=== PATIENT | female | born 1960 | race Caucasian/White ===

== ENCOUNTER 2017-06-21 01:49 | Inpatient (IN) | payer OTHER ==
[2017-06-21] MEDS ORDERED: ALBUTEROL SO4 2.5/IPRATROPIUM 0.5 INH SOL 3 ML VIAL.NEB. NEB ONE ×3 (02:21→03:45)
--- NOTE | 2017-06-21 02:34 | PDOC ---
History of Present Illness <Crystal Chapa - Last Filed: 06/21/17 05:46> - General History Source: Patient Exam Limitations: No Limitations - History of Present Illness Initial Comments: 06/21/17 02:33 Patient is a 56F with history of COPD and emphysema (h/o ICU admission and intubation for acute on chronic respiratory failure in September 2015) here today complaining of a fall. Her family states that she was using her walker when she fell backwards into a seated position. She is also complaining of increased shortness of breath. She denies loss of consciousness, chest pain. The patient believes that she tripped over the cat, but the family did not witness her tripping over the cat. The patient had an unwitnessed fall two days prior in which she hurt her right ankle and hit her head. She denies loss of consciousness and vomiting. She denies any prodromal symptoms, saying she simply tripped. She went to an urgent care and bilingual elementary school teacher, both of whom said she was fine. <Heladio Boss - Last Filed: 06/21/17 06:28> - General Stated Complaint: FALL Time Seen by Provider: 06/21/17 02:02 Past History <Crystal Chapa - Last Filed: 06/21/17 05:46> - Past Medical History COPD: Yes HTN: Yes Thyroid Disease: Yes - Suicide/Smoking/Psychosocial Hx Smoking History: Former smoker Have you smoked in the past 12 months: No If you are a former smoker, when did you quit?: YEARS Hx Alcohol Use: No Drug/Substance Use Hx: No Substance Use Type: None <Heladio Boss - Last Filed: 06/21/17 06:28> - Past Medical History Allergies/Adverse Reactions: Allergies Allergy/AdvReac Type Severity Reaction Status Date / Time Penicillins Allergy Severe Difficulty Verified 06/21/17 03:50 Breathing Home Medications: Ambulatory Orders Albuterol 0.083% Nebulizer Colette [Ventolin 0.083%] 1 neb NEB Q4H 06/02/14 Furosemide [Lasix -] 40 mg PO DAILY 06/02/14 Levothyroxine [Synthroid -] 100 mcg PO DAILY 06/02/14 Albuterol Sulfate Inhaler - [Ventolin Hfa Inhaler -] 2 inh PO Q6H PRN 10/13/15 Aspirin [ASA -] 81 mg PO DAILY 10/13/15 Fenofibrate [Lofibra] 160 mg PO DAILY 10/13/15 Montelukast Na [Singulair -] 10 mg PO HS 10/13/15 Potassium Chloride [Klor-Con M10] 10 meq PO DAILY 10/13/15 Prednisone 5 mg PO DAILY 10/13/15 Roflumilast [Daliresp] 500 mcg PO DAILY 10/13/15 Review of Systems - Review of Systems Comments:: 06/21/17 02:50 GENERAL/CONSTITUTIONAL: No fever or chills. HEAD, EYES, EARS, NOSE AND THROAT: No change in vision. No sore throat. CARDIOVASCULAR: No chest pain. Positive for increased shortness of breath. RESPIRATORY: Positive for cough and wheezing. Negative for hemoptysis. GASTROINTESTINAL: No nausea, vomiting, diarrhea or constipation. GENITOURINARY: No dysuria, frequency, or change in urination. MUSCULOSKELETAL: No joint or muscle swelling or pain. SKIN: No rash NEUROLOGIC: Positive for headache and confusion. Negative for vertigo, loss of consciousness, or change in strength/sensation. ENDOCRINE: No increased thirst. No abnormal weight change ALLERGIC/IMMUNOLOGIC: No hives or skin allergy. <Heladio Boss - Last Filed: 06/21/17 06:28> *Physical Exam - Vital Signs Last Vital Signs Temp Pulse Resp BP Pulse Ox 98.0 F 89 20 159/76 92 L 06/21/17 02:39 06/21/17 02:39 06/21/17 02:39 06/21/17 02:39 06/21/17 04:05 <Crystal Chapa - Last Filed: 06/21/17 05:46> - Physical Exam Comments: 06/21/17 02:55 GENERAL: Awake, alert, and fully oriented, struggles finding words, sleepy HEAD: No signs of trauma, normocephalic, atraumatic R FOOT: Large amounts of ecchymosis over entire foot. EYES: PERRLA, EOMI, sclera anicteric, conjunctiva clear ENT: Auricles normal inspection, hearing grossly normal, nares patent, oropharynx clear without exudates. Moist mucosa LUNGS: Accessory muscle use, short sentences, diffuse wheezes, poor air movement HEART: Regular rate and rhythm, normal S1 and S2, no murmurs, rubs or gallops, peripheral pulses normal and equal bilaterally. ABDOMEN: Soft, nontender, normoactive bowel sounds. No guarding, no rebound. No masses EXTREMITIES: Normal inspection, Normal range of motion, no edema. No clubbing or cyanosis. NEUROLOGICAL: Cranial nerves II through XII grossly intact. Normal speech, no focal sensorimotor deficits SKIN: Warm, Dry, normal turgor, no rashes or lesions noted. <Heladio Boss - Last Filed: 06/21/17 06:28> ED Treatment Course - LABORATORY CBC & Chemistry Diagram: 06/21/17 03:20 06/21/17 03:20 - ADDITIONAL ORDERS Additional order review: Laboratory Results 06/21/17 06/21/17 06/21/17 04:30 03:20 03:20 Anticoagulation Therapy Y Puncture Site Left brachial ABG pH 7.21 L* D ABG pCO2 at Pt Temp 116.0 H* D ABG pO2 at Pt Temp 124.0 H D ABG HCO3 44.9 H* ABG O2 Sat (Measured) 98.8 ABG O2 Content 14.2 L ABG Base Excess 13.7 H Everton Test Positive VBG pH 7.16 L* D POC VBG pCO2 134.0 H* D POC VBG pO2 39.4 D Mixed VBG HCO3 46.3 H* Carboxyhemoglobin 1.7 Methemoglobin 0.8 O2 Delivery Device Bipap Oxygen Flow Rate 60% Vent Mode Y Vent Rate 16 Mechanical Rate Y Pressure Support Vent 14/7 Sodium 138 Potassium 4.5 Chloride 90 L Carbon Dioxide 46 H Anion Gap 2 L BUN 15 Creatinine 0.5 L Creat Clearance w eGFR > 60 Random Glucose 149 H D Calcium 8.5 Magnesium 2.0 Total Bilirubin 0.3 AST 20 D ALT 27 Alkaline Phosphatase 71 D Creatine Kinase 87 Troponin I < 0.02 Total Protein 6.6 Albumin 3.3 L 06/21/17 03:20 RBC 3.67 MCV 101.1 H MCHC 30.8 L RDW 13.9 MPV 8.0 Neutrophils % No Result Required. Lymphocytes % No Result Required. - Medications Given in the ED: ED Medications Discontinued Medications Generic Name Dose Route Start Last Admin Trade Name Freq PRN Reason Stop Dose Admin Albuterol/Ipratropium 1 amp 06/21/17 02:21 06/21/17 02:52 Duoneb - NEB 06/21/17 02:22 1 amp ONCE ONE Administration Albuterol/Ipratropium 1 amp 06/21/17 03:45 06/21/17 04:18 Duoneb - NEB 06/21/17 03:46 1 amp ONCE ONE Administration Levofloxacin 750 mg in 150 mls @ 100 mls/hr 06/21/17 03:44 06/21/17 04:30 Levaquin 750 Mg Premixed Ivpb - IVPB 06/21/17 05:13 100 mls/hr ONCE ONE Administration Methylprednisolone Sodium Succinate 125 mg 06/21/17 03:44 06/21/17 04:30 Solu-Medrol - IVPB 06/21/17 03:45 125 mg ONCE ONE Administration <Crystal Chapa - Last Filed: 06/21/17 05:46> - LABORATORY CBC & Chemistry Diagram: 06/21/17 03:20 06/21/17 03:20 - RADIOLOGY Radiology Studies Ordered: Category Date Time Status HEAD CT WITHOUT CONTRAST [CT] Stat CT Scan 06/21/17 02:21 Ordered ANKLE & FOOT-RIGHT* [RAD] Stat Radiology 06/21/17 02:22 Ordered CHEST PA & LAT [RAD] Stat Radiology 06/21/17 02:32 Ordered <Heladio Boss - Last Filed: 06/21/17 06:28> Medical Decision Making - Medical Decision Making 06/21/17 03:00 Patient is a 56F with COPD/emphysema requiring prior ICU admission and intubation here today with multiple falls, possible syncope. Vital signs stable , patient's respiratory status is poor, but most likely at baseline. Will evaluate as a syncope, will treat with duonebs. Will evaluate with cbc, cmp, trop, mag, cxr, ankle xray, ekg, head ct. Will admit patient. 06/21/17 04:12 Laboratory Tests 06/21/17 06/21/17 03:20 03:20 WBC 9.0 Hgb 11.4 Hct 37.1 Plt Count 164 D VBG pH 7.16 L* D POC VBG pCO2 134.0 H* D POC VBG pO2 39.4 D Mixed VBG HCO3 46.3 H* CBC normal. VBG is alarming, shows pH of 7.16, pCO2 of 134. Started on bipap, initial settings 14/7, 35%. Goal spO2 88-92%, currently satting 90-91%. CMP pending. CXR shows diffuse air space disease, but no focal infiltrate suggestive of pneumonia. Will treat as copd exacerbation. Suspect cause of falls is due to decrease in respiratory status. Holding head CT until patient is more stable. Patient is cleared on su[place]ese rules, confusion and lethargy again likely to decrease in respiratory status. 06/21/17 05:38 Laboratory Tests 06/21/17 06/21/17 03:20 04:30 ABG pH 7.21 L* D ABG pCO2 at Pt Temp 116.0 H* D ABG pO2 at Pt Temp 124.0 H D ABG HCO3 44.9 H* Sodium 138 Potassium 4.5 Chloride 90 L Carbon Dioxide 46 H Troponin I < 0.02 ABG shows improvement. pH is improved. pCO2 improved. Patient's respiratory status has improved, is tolerating bipap. Will defer CT scan, as we cannot take the patient to CT scan on bipap. As respiratory status has improved, confusion and fatigue has improved. Will admit to ICU. 06/21/17 06:27 Denis - [phone] Daughter Nikia - [phone] <Heladio Boss - Last Filed: 06/21/17 06:28> *DC/Admit/Observation/Transfer - Discharge Dispostion Admit: Yes <Crystal Chapa - Last Filed: 06/21/17 05:46> <Heladio Boss - Last Filed: 06/21/17 06:28> Diagnosis at time of Disposition: COPD exacerbation, Pneumonia, Acute and chronic respiratory failure with hypoxia - Discharge Dispostion Condition at time of disposition: Guarded - Referrals Referrals: Laura Navarro MD [Primary Care Provider] -
[2017-06-21 02:46] VITALS: BMI 36.5
[2017-06-21 03:33] LABS: EOS # 0.1 # (0-4.5); LYMPH # 0.3 (8-40); MCH 31.2 pg (25.7-33.7); MCHC 30.8 g/dl (32.0-36.0); MEAN CELL VOLUME 101.1 fl (80-96); MONO # 0.7 # (3.8-10.2); NEUT # 7.9 # (42.8-82.8); PLATELET COUNT 164 K/MM3 (134-434); RDW 13.9 % (11.6-15.6)
[2017-06-21 03:37] LABS: VENOUS BLOOD GAS HCO3 46.3 meq/L (19-25); VENOUS PH 7.16 (7.32-7.42)
[2017-06-21] MEDS ORDERED: LEVOFLOXACIN 750 MG IVPB 750 MG/150 ML BAG IVPB ONE ×2 (03:44→03:59)
[2017-06-21] MEDS ORDERED: methylPREDNISolone NA SUCC 125 MG/2 ML VIAL IVPB ONE (03:44)
[2017-06-21 03:47] LABS: INR 0.88 (0.82-1.09)
[2017-06-21] MEDS ORDERED: methylPREDNISolone NA SUCC 125 MG/2 ML VIAL ONE (03:59)
--- NOTE | 2017-06-21 04:06 | PDOC ---
Attending Attestation - Resident Resident Name: Heladio Boss - ED Attending Attestation I have performed the following: I have examined & evaluated the patient, The case was reviewed & discussed with the resident, I agree w/resident's findings & plan - HPI HPI: 06/21/17 04:03 Pt comes with SOB and COPD exacerbation and she tripped at home 2 times, first due to tripping on "her tubes" of oxygen in her bedroom and the 2nd time due to SOB and generalized weakness. Pt comes with EMS. She was given duoneb. In the ER she received duoneb, prednisone and she will be given prophylactic abx for COPD exacerbation. She will be placed on BiPAP to optimize mariajose breathing. She is refusing to be intubated and she will be admitted to med surg for treatment. - Physicial Exam PE: 06/21/17 19:47 Agree with resident exam. Pt has decreased breath sounds throughout. Pt has no pitting edema of legs. She has a large hematoma at the left occiput where she hit her head 2 days back. Pt is vastly improved and alert and awake on BiPAP 40% O2. Her ph is improving. - Medical Decision Making 06/21/17 19:[address] Taylor's service, as he sees Dr. Laura Navarro's patients. 06/21/17 19:49 I spoke to the ICU NAVAL SCIENCE TEACHER who is aware of the admission and accepts the patient.
[2017-06-21 04:16] LABS: ALBUMIN 3.3 g/dl (3.4-5.0); BILIRUBIN,TOTAL 0.3 mg/dL (0.2-1.0); CALCIUM 8.5 mg/dL (8.5-10.1); CREATININE 0.5 mg/dL (0.55-1.02); GLUCOSE,RANDOM 149 mg/dL (74-106); SGOT/AST 20 U/L (15-37); SGPT/ALT 27 U/L (12-78); TOT PROT 6.6 g/dl (6.4-8.2)
[2017-06-21 04:19] LABS: ALK PHOS 71 U/L (45-117); CPK 87 IU/L (26-192); TROPONIN I < 0.02 ng/ml (0.00-0.05)
[2017-06-21 04:48] LABS: ARTERIAL BLD GAS O2 SATURATION 98.8 % (90-98.9); ARTERIAL BLOOD GAS BASE EXCESS 13.7 meq/l (-2-2)
[2017-06-21 04:49] LABS: ALLENS TEST POSITIVE; ART PUNCT SITE LEFT BRACHIAL; LPM/O2% 60%; METHEMOGLOBIN 0.8 % (0.4-1.5); TYPE OF O2 BIPAP; VENT RATE 16; VT/PRESS 14/7
[2017-06-21 04:50] LABS: ARTERIAL BLOOD GAS pH 7.21 (7.35-7.45)
[2017-06-21 04:51] LABS: ARTERIAL BLOOD GAS HCO3 44.9 meq/L (22-26)
[2017-06-21 05:27] LABS: ANION GAP 2 (8-16); CO2 46 mmol/L (21-32)
--- NOTE | 2017-06-21 07:11 | PDOC ---
*Physical Exam - Vital Signs Last Vital Signs Temp Pulse Resp BP Pulse Ox 98.0 F 69 18 125/74 97 06/21/17 02:39 06/21/17 06:40 06/21/17 06:40 06/21/17 06:40 06/21/17 06:40 ED Treatment Course - LABORATORY CBC & Chemistry Diagram: 06/21/17 03:20 06/21/17 03:20 - ADDITIONAL ORDERS Additional order review: Laboratory Results 06/21/17 06/21/17 06/21/17 04:30 03:20 03:20 PT with INR INR Anticoagulation Therapy Y Puncture Site Left brachial ABG pH 7.21 L* D ABG pCO2 at Pt Temp 116.0 H* D ABG pO2 at Pt Temp 124.0 H D ABG HCO3 44.9 H* ABG O2 Sat (Measured) 98.8 ABG O2 Content 14.2 L ABG Base Excess 13.7 H Everton Test Positive VBG pH 7.16 L* D POC VBG pCO2 134.0 H* D POC VBG pO2 39.4 D Mixed VBG HCO3 46.3 H* Carboxyhemoglobin 1.7 Methemoglobin 0.8 O2 Delivery Device Bipap Oxygen Flow Rate 60% Vent Mode Y Vent Rate 16 Mechanical Rate Y Pressure Support Vent 14/7 Sodium 138 Potassium 4.5 Chloride 90 L Carbon Dioxide 46 H Anion Gap 2 L BUN 15 Creatinine 0.5 L Creat Clearance w eGFR > 60 Random Glucose 149 H D Calcium 8.5 Magnesium 2.0 Total Bilirubin 0.3 AST 20 D ALT 27 Alkaline Phosphatase 71 D Creatine Kinase 87 Troponin I < 0.02 Total Protein 6.6 Albumin 3.3 L 06/21/17 03:20 PT with INR 10.00 INR 0.88 Anticoagulation Therapy Puncture Site ABG pH ABG pCO2 at Pt Temp ABG pO2 at Pt Temp ABG HCO3 ABG O2 Sat (Measured) ABG O2 Content ABG Base Excess Ever[place] Test VBG pH POC VBG pCO2 POC VBG pO2 Mixed VBG HCO3 Carboxyhemoglobin Methemoglobin O2 Delivery Device Oxygen Flow Rate Vent Mode Vent Rate Mechanical Rate Pressure Support Vent Sodium Potassium Chloride Carbon Dioxide Anion Gap BUN Creatinine Creat Clearance w eGFR Random Glucose Calcium Magnesium Total Bilirubin AST ALT Alkaline Phosphatase Creatine Kinase Troponin I Total Protein Albumin 06/21/17 03:20 RBC 3.67 MCV 101.1 H MCHC 30.8 L RDW 13.9 MPV 8.0 Neutrophils % No Result Required. Lymphocytes % No Result Required. - Medications Given in the ED: ED Medications Discontinued Medications Generic Name Dose Route Start Last Admin Trade Name Reynaldo PRN Reason Stop Dose Admin Albuterol/Ipratropium 1 amp 06/21/17 02:21 06/21/17 02:52 Duoneb - NEB 06/21/17 02:22 1 amp ONCE ONE Administration Albuterol/Ipratropium 1 amp 06/21/17 03:45 06/21/17 04:18 Duoneb - NEB 06/21/17 03:46 1 amp ONCE ONE Administration Levofloxacin 750 mg in 150 mls @ 100 mls/hr 06/21/17 03:44 06/21/17 04:30 Levaquin 750 Mg Premixed Ivpb - IVPB 06/21/17 05:13 100 mls/hr ONCE ONE Administration Methylprednisolone Sodium Succinate 125 mg 06/21/17 03:44 06/21/17 04:30 Solu-Medrol - IVPB 06/21/17 03:45 125 mg ONCE ONE Administration Medical Decision Making - Medical Decision Making 06/21/17 07:09 CC: twisted ankle after fall. PMH: COPD, emphysema, HTN On bipap, much improvement. Pending: monitoring airway. Goal Sat 88-92%. Possible repeat ABG/VBG. No ICU beds available. Watch for XR read. *DC/Admit/Observation/Transfer Diagnosis at time of Disposition: COPD exacerbation, Pneumonia, Acute and chronic respiratory failure with hypoxia - Discharge Dispostion Condition at time of disposition: Guarded - Referrals - Patient Instructions - Post Discharge Activity
[2017-06-21 07:36] LABS: URINE APPEARANCE CLEAR; URINE BILIRUBIN NEGATIVE (NEGATIVE); URINE BLOOD NEGATIVE (NEGATIVE); URINE COLOR YELLOW; URINE GLUCOSE (UA) NEGATIVE (NEGATIVE); URINE KETONE NEGATIVE (NEGATIVE); URINE LEUK ESTERASE NEGATIVE (NEGATIVE); URINE NITRITE NEGATIVE (NEGATIVE); URINE UROBILINOGEN NEGATIVE mg/dL (0.2-1.0)
[2017-06-21 07:48] LABS: URINE PROTEIN 1+ (NEGATIVE)
[2017-06-21 07:49] LABS: URINE MUCUS RARE; URINE RBC 2 /hpf (0-3); URINE WBC <1 /hpf (3-5)
[2017-06-21] MEDS ORDERED: ALBUTEROL SO4 18 GM HFA INHALER IH PRN (09:38)
--- NOTE | 2017-06-21 09:43 | HP ---
Admitting History and Physical - Primary Care Physician PCP: Agustina Taylor S - Admission Chief Complaint: SOB cough s/p fall History of Present Illness: Patient is a 56F with history of COPD and emphysema (h/o ICU admission and intubation for acute on chronic respiratory failure in September 2015) here today complaining of a fall. Her family states that she was using her walker when she fell backwards into a seated position. She is also complaining of increased shortness of breath. She denies loss of consciousness, chest pain. The patient believes that she tripped over the cat, but the family did not witness her tripping over the cat. The patient had an unwitnessed fall two days prior in which she hurt her right ankle and hit her head when she fell after tripping over the O2 tubes. . She denies loss of consciousness and vomiting. She denies any prodromal symptoms, saying she simply tripped. She went to an urgent care and ex assistant/program director, both of whom said she was fine. She also saw her PCP dr Mariana Navarro outpt. She denies having any pain in her foot or her head. History Source: Patient, Medical Record Limitations to Obtaining History: No Limitations - Past Medical History Cardiovascular: Yes: CHF, HTN Pulmonary: Yes: COPD, O2 Dependent ...LMP: 06/03/14 Infectious Disease: Yes: Other (pneumonia) Musculoskeletal: Yes: Chronic low back pain Endocrine: Yes: Hypothyroidism - Smoking History Smoking history: Former smoker Have you smoked in the past 12 months: No If you are a former smoker, when did you quit?: YEARS - Alcohol/Substance Use Hx Alcohol Use: No History of Substance Use: reports: None - Social History Usual Living Arrangement: Yes: With Spouse ADL: Family Assistance History of Recent Travel: No Home Medications - Allergies Allergies/Adverse Reactions: Allergies Allergy/AdvReac Type Severity Reaction Status Date / Time Penicillins Allergy Severe Difficulty Verified 06/21/17 03:50 Breathing - Home Medications Home Medications: Ambulatory Orders Albuterol 0.083% Nebulizer Colette [Ventolin 0.083%] 1 neb NEB Q4H 06/02/14 Furosemide [Lasix -] 40 mg PO DAILY 06/02/14 Levothyroxine [Synthroid -] 100 mcg PO DAILY 06/02/14 Albuterol Sulfate Inhaler - [Ventolin Hfa Inhaler -] 2 inh PO Q6H PRN 10/13/15 Aspirin [ASA -] 81 mg PO DAILY 10/13/15 Fenofibrate [Lofibra] 160 mg PO DAILY 10/13/15 Montelukast Na [Singulair -] 10 mg PO HS 10/13/15 Potassium Chloride [Klor-Con M10] 10 meq PO DAILY 10/13/15 Prednisone 5 mg PO DAILY 10/13/15 Roflumilast [Daliresp] 500 mcg PO DAILY 10/13/15 Family Disease History - Family Disease History Family History: Unremarkable Review of Systems - Review of Systems Constitutional: denies: Chills, Fever Eyes: denies: Blind Spots, Blurred Vision, Double Vision HENT: denies: Difficult Swallowing, Epistaxis Neck: denies: Stiffness, Tenderness Cardiovascular: reports: Shortness of Breath. denies: Chest Pain Respiratory: reports: Cough, Orthopnea, Snoring, SOB, SOB on Exertion, Wheezing Gastrointestinal: denies: Abdominal Pain, Bloating, Constipation, Diarrhea, Nausea, Vomiting Genitourinary: denies: Dysuria, Flank Pain Musculoskeletal: denies: Back Pain, Extremity Pain Neurological: denies: Change in LOC, Confusion, Seizure, Syncope Hematology/Lymphatic: denies: Easily Bruised, Excessive Bleeding Psychiatric: denies: Altered Sleep Pattern, Anxiety, Depression Physical Examination Vital Signs: Vital Signs Temperature 98.0 F 06/21/17 02:39 Pulse Rate 84 06/21/17 09:41 Respiratory Rate 28 H 06/21/17 09:41 Blood Pressure 155/82 06/21/17 09:41 O2 Sat by Pulse Oximetry (%) 30 L 06/21/17 09:41 Constitutional: Yes: Mild Distress Eyes: Yes: Conjunctiva Clear HENT: Yes: Atraumatic Neck: Yes: Supple Cardiovascular: Yes: Regular Rate and Rhythm Respiratory: Yes: On BiPap, Rales, Tachypnea, Wheezes Renal/: No: CVA Tenderness - Left, CVA Tenderness - Right, Hematuria Musculoskeletal: No: Joint Stiffness, Joint Swelling Extremities: Yes: Other (R foot echymoses bruises no pain). No: Calf Tenderness , Cold, Cool, Cyanosis Edema: Yes (pretibial bilateral) Integumentary: No: Pressure Ulcer, Rash, Venous Stasis Changes Neurological: Yes: WNL, Alert, Oriented ...Motor Strength: WNL Psychiatric: Yes: WNL, Alert, Oriented. No: Agitated, Suicidal Ideation Labs: CBC, BMP 06/21/17 03:20 06/21/17 03:20 Imaging - Results Chest X-ray: Report Reviewed Other: Report Reviewed Assessment/Plan Patient is a 56F with history of COPD and emphysema (h/o ICU admission and intubation for acute on chronic respiratory failure in September 2015) here today s/ p fall also respiratory failure bipap dependant hypercapnia hypoxemia respiratory acidosis O2, Iv steroids, nebs iv atb inhalers iv lasix admit to ICU head CT when stable and able to come off the bipap; neurology eval for head trauma sq heparin for DVT pfx if head CT negative R foot s/p trauma no pain, check xrays; podiatry f/u prognosis guarded d/w pt and staff d/w neurology dr Corcoran falls PFX d/w pt do not get OOB alone, call for help if needs OOB d/w pt's PCP Caputo\ T time 75 min
[2017-06-21] MEDS ORDERED: ALBUTEROL SO4 0.083% IH SOL 2.5 MG/3 ML VIAL.NEB. NEB ONE (09:47)
[2017-06-21] MEDS: ALBUTEROL SO4 0.083% IH SOL 2.5 MG/3 ML VIAL.NEB. NEB SCH ×3 (09:53→18:42)
[2017-06-21] MEDS ORDERED: PATIENT'S OWN MEDICATION (NON-FORMULARY) (Fenofibrate [Lofibra] 160 MG) PO SCH (10:00)
[2017-06-21] MEDS ORDERED: LEVOTHYROXINE NA 125 MCG TABLET (FP) PO SCH ×2 (10:00→10:12)
[2017-06-21] MEDS ORDERED: IPRATROPIUM BR 0.02% 0.5 MG/2.5 ML VIAL.NEB. NEB ONE (10:08)
[2017-06-21 11:02] LABS: ANISOCYTOSIS 0; HYPOCHROMIA 0; MACROCYTOSIS 0; METAMYELOCYTE 0 % (0-2); MICROCYTOSIS 0; MYELOCYTE 0 % (0-2); PLATELET ESTIMATE DECREASED; POIKILOCYTOSIS 0; POLYCHROMASIA 0; REACTIVE LYMPHOCYTES 2 % (0-80); STOMATOCYTE 3+
[2017-06-21] MEDS: ROFLUMILAST 500 MCG TABLET PO SCH (11:28)
[2017-06-21] MEDS: ASPIRIN 81 MG CHEWABLE TABLETS PO SCH (11:28)
[2017-06-21] MEDS: FUROSEMIDE 40 MG/4 ML INJECTABLE VIAL IVPUSH SCH (11:28)
[2017-06-21] MEDS: POTASSIUM CHLORIDE TABS 10 MEQ TABLET.ER (FP) PO SCH (11:28)
--- NOTE | 2017-06-21 12:49 | CON.PULM ---
Consult Consult Specialty:: PULMONARY Referred by:: Dr. Taylor Reason for Consultation:: respiratory failure - History of Present Illness Chief Complaint: s/p fall History of Present Illness: 56yo female with h/o COPD, hypothyroidism, chronic hypoxic and hypercapneic respiratory failure who was admitted after tripping over her oxygen tubing. Landed on her buttocks but also did hit her head. Noted to be slightly somnolent in the ER, ABG done showing severe respiratory acidosis. She denies any shortness of breath, cough or wheezing. No fevers, chills or sweats. No sick contacts. Reports compliance with her Spiriva and Dulera. - History Source History Provided By: Patient, Medical Record Limitations to Obtaining History: Clinical Condition - Past Medical History Cardio/Vascular: Yes: CHF, HTN Pulmonary: Yes: COPD, O2 Dependent ...LMP: 06/03/14 Infectious Disease: Yes: Other (pneumonia) Musculoskeletal: Yes: Chronic low back pain Endocrine: Yes: Hypothyroidism - Alcohol/Substance Use Hx Alcohol Use: No - Smoking History Smoking history: Former smoker Have you smoked in the past 12 months: No If you are a former smoker, when did you quit?: YEARS - Social History ADL: Family Assistance History of Recent Travel: No Home Medications - Allergies Allergies/Adverse Reactions: Allergies Allergy/AdvReac Type Severity Reaction Status Date / Time Penicillins Allergy Severe Difficulty Verified 06/21/17 03:50 Breathing - Home Medications Home Medications: Ambulatory Orders Albuterol 0.083% Nebulizer Colette [Ventolin 0.083%] 1 neb NEB Q4H 06/02/14 Furosemide [Lasix -] 40 mg PO DAILY 06/02/14 Levothyroxine [Synthroid -] 100 mcg PO DAILY 06/02/14 Albuterol Sulfate Inhaler - [Ventolin Hfa Inhaler -] 2 inh PO Q6H PRN 10/13/15 Aspirin [ASA -] 81 mg PO DAILY 10/13/15 Fenofibrate [Lofibra] 160 mg PO DAILY 10/13/15 Montelukast Na [Singulair -] 10 mg PO HS 10/13/15 Potassium Chloride [Klor-Con M10] 10 meq PO DAILY 10/13/15 Prednisone 5 mg PO DAILY 10/13/15 Roflumilast [Daliresp] 500 mcg PO DAILY 10/13/15 Review of Systems - Review of Systems Constitutional: denies: Chills, Fever, Weakness Eyes: denies: Recent Change in Vision HENT: denies: Nasal Congestion, Throat Pain Neck: denies: Stiffness, Tenderness Cardiovascular: denies: Chest Pain, Palpitations, Shortness of Breath Respiratory: denies: Cough, Hemoptysis, Wheezing Gastrointestinal: denies: Abdominal Pain, Nausea, Vomiting Genitourinary: denies: Dysuria, Hematuria Neurological: denies: Dizziness, Headache Physical Exam Vital Sings: Vital Signs Temperature 98.0 F 06/21/17 02:39 Pulse Rate 82 06/21/17 10:30 Respiratory Rate 26 H 06/21/17 10:30 Blood Pressure 134/76 06/21/17 10:30 O2 Sat by Pulse Oximetry (%) 97 06/21/17 10:30 Constitutional: Yes: Other (mildly tachypneic with speaking) Eyes: Yes: Conjunctiva Clear, EOM Intact HENT: Yes: Atraumatic, Normocephalic Neck: Yes: Supple, Trachea Midline Cardiovascular: Yes: Regular Rate and Rhythm Respiratory: Yes: Diminished (distant breath sounds). No: Wheezes ...Clubbing: No Gastrointestinal: Yes: Normal Bowel Sounds, Soft. No: Tenderness Edema: Yes Neurological: Yes: Alert, Oriented Labs: CBC, BMP 06/21/17 03:20 06/21/17 03:20 ABG Results ABG pH 7.21 (7.35-7.45) L* D 06/21/17 04:30 ABG pCO2 at Pt Temp 116.0 mmHg (35-45) H* D 06/21/17 04:30 ABG pO2 at Pt Temp 124.0 mmHg (80-100) H D 06/21/17 04:30 ABG HCO3 44.9 meq/L (22-26) H* 06/21/17 04:30 ABG O2 Sat (Measured) 98.8 % (90-98.9) 06/21/17 04:30 ABG O2 Content 14.2 % vol (15-22) L 06/21/17 04:30 ABG Base Excess 13.7 meq/l (-2-2) H 06/21/17 04:30 Imaging - Results Chest X-ray: Report Reviewed, Image Reviewed (pulmonary vascular congestion) Problem List - Problems (1) Acute on chronic respiratory failure with hypoxia and hypercapnia Code(s): J96.21 - ACUTE AND CHRONIC RESPIRATORY FAILURE WITH HYPOXIA; J96.22 - ACUTE AND CHRONIC RESPIRATORY FAILURE WITH HYPERCAPNIA (2) COPD exacerbation Code(s): J44.1 - CHRONIC OBSTRUCTIVE PULMONARY DISEASE W (ACUTE) EXACERBATION (3) Fall Code(s): W19.XXXA - UNSPECIFIED FALL, INITIAL ENCOUNTER (4) Acute diastolic (congestive) heart failure Code(s): I50.31 - ACUTE DIASTOLIC (CONGESTIVE) HEART FAILURE Assessment/Plan s/p Fall Acute on Chronic Hypoxic and Hypercapneic Respiratory Failure Acute Diastolic Heart Failure HTN Hypothyroidism - agree with medrol - inhaled bronchodilators standing and PRN - O2 to keep SpO2 88-92% to avoid worsening V/Q mismatch - BiPAP at night and PRN during day - IV lasix - monitor urine output, creatinine - may benefit from home BiPAP or trilogy device due to chronic hypercapneic respiratory failure - DVT prophylaxis - placed on nasal cannula, check ABG - appears to be clinically improving, does not require ICU monitoring at this time - will follow with you, please call if any changes in clinical condition Thank you for this consult Roman Mckinley MD
[2017-06-21 13:49] LABS: ARTERIAL BLD GAS O2 SATURATION 92.9 % (90-98.9); ARTERIAL BLOOD GAS BASE EXCESS 18.6 meq/l (-2-2); ARTERIAL BLOOD GAS HCO3 47.5 meq/L (22-26); ARTERIAL BLOOD GAS pH 7.43 (7.35-7.45)
[2017-06-21 13:53] LABS: ART PUNCT SITE RIGHT RADIAL
[2017-06-21 13:54] LABS: LPM/O2% 3L; PT. ON O2? YES; TYPE OF O2 NASAL
[2017-06-21 13:57] LABS: URINE LEUK ESTERASE Negative (NEGATIVE)
[2017-06-21] MEDS ORDERED: methylPREDNISolone NA SUCC 40 MG/1 ML VIAL ONE ×2 (15:15→21:19)
[2017-06-21] MEDS: methylPREDNISolone NA SUCC 40 MG/1 ML VIAL IVPUSH SCH ×2 (15:16→21:23)
--- NOTE | 2017-06-21 16:38 | CON.NEURO ---
Consult - Past Medical History Cardio/Vascular: Yes: CHF, HTN Pulmonary: Yes: COPD, O2 Dependent ...LMP: 06/03/14 Infectious Disease: Yes: Other (pneumonia) Musculoskeletal: Yes: Chronic low back pain Endocrine: Yes: Hypothyroidism - Alcohol/Substance Use Hx Alcohol Use: No - Smoking History Smoking history: Former smoker Have you smoked in the past 12 months: No If you are a former smoker, when did you quit?: YEARS - Social History ADL: Family Assistance History of Recent Travel: No Home Medications - Allergies Allergies/Adverse Reactions: Allergies Allergy/AdvReac Type Severity Reaction Status Date / Time Penicillins Allergy Severe Difficulty Verified 06/21/17 03:50 Breathing - Home Medications Home Medications: Ambulatory Orders Albuterol 0.083% Nebulizer Colette [Ventolin 0.083%] 1 neb NEB Q4H 06/02/14 Furosemide [Lasix -] 40 mg PO DAILY 06/02/14 Levothyroxine [Synthroid -] 100 mcg PO DAILY 06/02/14 Albuterol Sulfate Inhaler - [Ventolin Hfa Inhaler -] 2 inh PO Q6H PRN 10/13/15 Aspirin [ASA -] 81 mg PO DAILY 10/13/15 Fenofibrate [Lofibra] 160 mg PO DAILY 10/13/15 Montelukast Na [Singulair -] 10 mg PO HS 10/13/15 Potassium Chloride [Klor-Con M10] 10 meq PO DAILY 10/13/15 Prednisone 5 mg PO DAILY 10/13/15 Roflumilast [Daliresp] 500 mcg PO DAILY 10/13/15 Physical Exam-Neuro Vital Signs: Vital Signs Temperature 98.0 F 06/21/17 02:39 Pulse Rate 87 06/21/17 13:35 Respiratory Rate 22 06/21/17 13:35 Blood Pressure 122/82 06/21/17 13:35 O2 Sat by Pulse Oximetry (%) 95 06/21/17 13:35 Labs: CBC, BMP 06/21/17 03:20 06/21/17 03:20 INR, PTT INR 0.88 (0.82-1.09) 06/21/17 03:20 Assessment/Plan cc fall HPI 56 year old female history of COPD, emphysema, HTN, Hypothyroidism, She uses walker to walk. Patient fell three days ago , when she get tangled with her oxygen cord. She has another fall today when she fell backward. She denies any loss of consiousness. There is no seizure like activity, no tongue bite . She denies any tingling or numbness or frequent fall. She denies any weakness or one sided weakness. Past Medical History as above ROS,FH,SH reviewed in chart Allergies Allergies Allergy/AdvReac Type Severity Reaction Status Date / Time Penicillins Allergy Severe Difficulty Verified 06/21/17 03:50 Breathing Home Medications: Albuterol 0.083% Nebulizer Colette [Ventolin 0.083%] 1 neb NEB Q4H 06/02/14 Furosemide [Lasix -] 40 mg PO DAILY 06/02/14 Levothyroxine [Synthroid -] 100 mcg PO DAILY 06/02/14 Albuterol Sulfate Inhaler - [Ventolin Hfa Inhaler -] 2 inh PO Q6H PRN 10/13/15 Aspirin [ASA -] 81 mg PO DAILY 10/13/15 Fenofibrate [Lofibra] 160 mg PO DAILY 10/13/15 Montelukast Na [Singulair -] 10 mg PO HS 10/13/15 Potassium Chloride [Klor-Con M10] 10 meq PO DAILY 10/13/15 Prednisone 5 mg PO DAILY 10/13/15 Roflumilast [Daliresp] 500 mcg PO DAILY 10/13/15 Neurological Examination Alert Oriented x 3, speech is normal CN all intact, eomi, no face asymmetry Motor is 5/5 all extremity FTN HTS is normal, reflex are symmetrical Ct head not done Assessment- Episode of fall, no LOc, Neurological Examination is normal. There is bump on the head. Patient is quite concern about bleed inside the brain Plan-- would do ct head - PT if she stays in hospital - No evidence of seizures, no evidence of cord compression ,Vertigo or stroke Thank you so much Corey Alfaro MD
--- NOTE | 2017-06-21 17:13 | EKG ---
Test Reason : Blood Pressure : / mmHG Vent. Rate : 090 BPM Atrial Rate : 090 BPM P-R Int : 126 ms QRS Dur : 074 ms QT Int : 330 ms P-R-T Axes : 073 069 060 degrees QTc Int : 403 ms NORMAL SINUS RHYTHM LOW VOLTAGE QRS BORDERLINE ECG WHEN COMPARED WITH ECG OF 14-OCT-2015 12:12, NO SIGNIFICANT CHANGE WAS FOUND Confirmed by COLLEEN SCHNEIDER MD ([id number]) on 06/21/2017 5:13:40 PM Referred By: Confirmed By:COLLEEN SCHNEIDER MD
--- NOTE | 2017-06-21 19:44 | CON.CARD ---
Consult Consult Specialty:: Cardiology Referred by:: Agustina Taylor MD Reason for Consultation:: Respiratory failure - History of Present Illness Chief Complaint: Post fall, lethargy History of Present Illness: 56yo female with h/o COPD, hypothyroidism, chronic hypoxic and hypercapneic respiratory failure who was admitted after tripping over her oxygen tubing. Landed on her buttocks but also did hit her head, HCT. Noted to be slightly somnolent in the ER, ABG done showing severe respiratory acidosis. She denies any shortness of breath, cough, wheezing, palpitations, near or true syncope, orthopnea, PND, does note pretibial edema. Reports compliance with her Spiriva and Dulera. - History Source History Provided By: Patient Limitations to Obtaining History: No Limitations - Past Medical History Cardio/Vascular: Yes: CHF, HTN Pulmonary: Yes: COPD, O2 Dependent ...LMP: 06/03/14 Infectious Disease: Yes: Other (pneumonia) Musculoskeletal: Yes: Chronic low back pain Endocrine: Yes: Hypothyroidism - Alcohol/Substance Use Hx Alcohol Use: No - Smoking History Smoking history: Former smoker Have you smoked in the past 12 months: No If you are a former smoker, when did you quit?: YEARS - Social History ADL: Family Assistance History of Recent Travel: No Home Medications - Allergies Allergies/Adverse Reactions: Allergies Allergy/AdvReac Type Severity Reaction Status Date / Time Penicillins Allergy Severe Difficulty Verified 06/21/17 03:50 Breathing - Home Medications Home Medications: Ambulatory Orders Albuterol 0.083% Nebulizer Colette [Ventolin 0.083%] 1 neb NEB Q4H 06/02/14 Furosemide [Lasix -] 40 mg PO DAILY 06/02/14 Levothyroxine [Synthroid -] 100 mcg PO DAILY 06/02/14 Albuterol Sulfate Inhaler - [Ventolin Hfa Inhaler -] 2 inh PO Q6H PRN 10/13/15 Aspirin [ASA -] 81 mg PO DAILY 10/13/15 Fenofibrate [Lofibra] 160 mg PO DAILY 10/13/15 Montelukast Na [Singulair -] 10 mg PO HS 10/13/15 Potassium Chloride [Klor-Con M10] 10 meq PO DAILY 10/13/15 Prednisone 5 mg PO DAILY 10/13/15 Roflumilast [Daliresp] 500 mcg PO DAILY 10/13/15 Review of Systems - Review of Systems Constitutional: reports: Lethargy Vital Signs: Vital Signs Temperature 98.0 F 06/21/17 02:39 Pulse Rate 89 06/21/17 18:40 Respiratory Rate 26 H 06/21/17 18:40 Blood Pressure 125/77 06/21/17 18:40 O2 Sat by Pulse Oximetry (%) 92 L 06/21/17 18:40 Constitutional: Yes: No Distress, Calm Neck: Yes: Supple Respiratory: Yes: Regular, Diminished, On Nasal O2 Gastrointestinal: Yes: Normal Bowel Sounds, Soft, Abdomen, Obese Cardiovascular: Yes: Regular Rate and Rhythm JVD: No Carotid Bruit: No Heart Sounds: Yes: S1, S2 Edema: Yes Edema: LLE: 2+, RLE: 2+ - Other Data Labs, Other Data: CBC, BMP 06/21/17 03:20 06/21/17 03:20 INR, PTT INR 0.88 (0.82-1.09) 06/21/17 03:20 Troponin, BNP 06/21/17 03:20 Troponin I < 0.02 Troponin, BNP 06/21/17 03:20 Troponin I < 0.02 NSR @ [address]-T changes Ejection Fraction %: LVEF > or = 40 % Imaging - Results Chest X-ray: Report Reviewed (Congestion) Problem List - Problems (1) Hypothyroidism Code(s): E03.9 - HYPOTHYROIDISM, UNSPECIFIED Qualifiers: Hypothyroidism type: unspecified Qualified Code(s): E03.9 - Hypothyroidism , unspecified (2) Acute diastolic (congestive) heart failure Code(s): I50.31 - ACUTE DIASTOLIC (CONGESTIVE) HEART FAILURE (3) Acute on chronic respiratory failure with hypoxia and hypercapnia Code(s): J96.21 - ACUTE AND CHRONIC RESPIRATORY FAILURE WITH HYPOXIA; J96.22 - ACUTE AND CHRONIC RESPIRATORY FAILURE WITH HYPERCAPNIA (4) COPD exacerbation Code(s): J44.1 - CHRONIC OBSTRUCTIVE PULMONARY DISEASE W (ACUTE) EXACERBATION (5) Fall Code(s): W19.XXXA - UNSPECIFIED FALL, INITIAL ENCOUNTER Qualifiers: Encounter type: initial encounter Qualified Code(s): W19.XXXA - Unspecified fall, initial encounter Assessment/Plan Echocardiography revealed normal LV systolic function with mild MR 1. Acute on chronic hypoxic and hypercapneic respiratory failure related to acute exacerbation of 2. Chronic obstructive pulmonary disease and 3. Acute on chronic diastolic heart failure 4. HTN/HCVD 5. Mixed dyslipidemia 6. Hypothyroidism 7. s/p fall PLAN: 1. IV steroids, BD, empiric abx, Singulair, Daliresp, O2 to keep SpO2 88-92% to avoid worsening V/Q mismatch, BiPAP at night and PRN during day 2. IV diuresis with monitor diuretic response, renal function and electrolytes 3. As outlined recommend addition of LUCIO-I or ARBS 4. May benefit from home BiPAP or trilogy device due to chronic hypercapneic respiratory failure 5. DVT prophylaxis 6. Thank you for consultative opportunity
[2017-06-21] MEDS: MONTELUKAST NA 10 MG TABLET PO SCH (23:26)
[2017-06-22] MEDS: ALBUTEROL SO4 0.083% IH SOL 2.5 MG/3 ML VIAL.NEB. NEB SCH ×6 (01:05→23:19)
[2017-06-22] MEDS: methylPREDNISolone NA SUCC 40 MG/1 ML VIAL IVPUSH SCH ×4 (03:12→21:10)
[2017-06-22] MEDS: LEVOTHYROXINE NA 100 MCG TABLET (FP) PO SCH (06:31)
[2017-06-22] MEDS: LEVOFLOXACIN 500 MG IVPB 500 MG/100 ML BAG IVPB SCH (06:31)
[2017-06-22 07:46] LABS: BASO # 0.1 # (0.1-1); BASO % 0.9 % (0-2.0); LYMPH # 0.2 (8-40); MCH 30.6 pg (25.7-33.7); MCHC 31.5 g/dl (32.0-36.0); MEAN CELL VOLUME 97.3 fl (80-96); MEAN PLT VOLUME 8.8 fl (7.5-11.1); MONO # 0.2 # (3.8-10.2); NEUT # 7.6 # (42.8-82.8); NEUT % 93.5 % (42.8-82.8); PLATELET COUNT 172 K/MM3 (134-434); RDW 13.6 % (11.6-15.6); WHITE BLOOD COUNT 8.2 K/mm3 (4.0-10.0)
[2017-06-22 08:18] LABS: ALBUMIN 3.1 g/dl (3.4-5.0); BILIRUBIN,TOTAL 0.4 mg/dL (0.2-1.0); CALCIUM 8.3 mg/dL (8.5-10.1); CREATININE 0.7 mg/dL (0.55-1.02); GLUCOSE,RANDOM 141 mg/dL (74-106); SGOT/AST 15 U/L (15-37); SGPT/ALT 24 U/L (12-78); TOT PROT 6.1 g/dl (6.4-8.2)
[2017-06-22 08:26] LABS: ALK PHOS 63 U/L (45-117); CPK 67 IU/L (26-192); THYROID STIMULATING HORMONE 0.39 uIU/ml (0.358-3.74); TROPONIN I < 0.02 ng/ml (0.00-0.05)
--- NOTE | 2017-06-22 08:26 | PN ---
Progress Note, Physician Chief Complaint: in bed on 4w awake alert NAD VSS ON BIPAP PRN on O2 no CP less SOB less cough tests consults meds reviewed with pt - Current Medication List Current Medications: Active Medications Albuterol Sulfate (Ventolin 0.083% Nebulizer Soln -) 1 amp NEB Q4H [facility] Last Admin: 06/22/17 07:04 Dose: 1 amp Albuterol Sulfate (Ventolin Hfa Inhaler -) 2 puff IH Q6H PRN PRN Reason: SHORT OF BREATH/WHEEZING Last Admin: 06/21/17 09:52 Dose: 2 puff Aspirin (Asa -) 81 mg PO DAILY [facility] Last Admin: 06/21/17 11:28 Dose: 81 mg Furosemide (Lasix Injection -) 40 mg IVPUSH DAILY [facility] Last Admin: 06/21/17 11:28 Dose: 40 mg Heparin Sodium (Porcine) (Heparin -) 5,000 unit SQ BID [facility] Levofloxacin (Levaquin 500 Mg Premixed Ivpb -) 500 mg in 100 mls @ 100 mls/hr IVPB DAILY@0600 [facility] Last Admin: 06/22/17 06:31 Dose: 100 mls/hr Levothyroxine Sodium (Synthroid -) 100 mcg PO DAILY@0700 [facility] Last Admin: 06/22/17 06:31 Dose: 100 mcg Methylprednisolone Sodium Succinate (Solu-Medrol -) 40 mg IVPUSH Q6H-IV [facility] Last Admin: 06/22/17 03:12 Dose: 40 mg Montelukast Sodium (Singulair -) 10 mg PO HS [facility] Last Admin: 06/21/17 23:26 Dose: 10 mg Non-Formulary Medication (Fenofibrate [Lofibra]) 160 mg PO DAILY [facility] Last Admin: 06/21/17 11:35 Dose: Not Given Potassium Chloride (K-Dur -) 10 meq PO DAILY [facility] Last Admin: 06/21/17 11:28 Dose: 10 meq Roflumilast (Daliresp -) 500 mcg PO DAILY [facility] Last Admin: 06/21/17 11:28 Dose: 500 mcg - Objective Vital Signs: Vital Signs Temperature 97.4 F L 06/22/17 07:19 Pulse Rate 86 06/22/17 07:19 Respiratory Rate 20 06/22/17 07:19 Blood Pressure 144/85 06/22/17 07:19 O2 Sat by Pulse Oximetry (%) 92 L 06/21/17 23:00 Constitutional: Yes: No Distress, Calm Eyes: Yes: Conjunctiva Clear HENT: Yes: Atraumatic Neck: Yes: Supple Cardiovascular: Yes: Regular Rate and Rhythm Respiratory: Yes: Rales, Wheezes Gastrointestinal: Yes: Soft, Abdomen, Obese. No: Distention, Tenderness Musculoskeletal: No: Joint Stiffness, Joint Swelling Extremities: No: Cold, Cool, Cyanosis Edema: Yes (less) Integumentary: No: Rash, Venous Stasis Changes Neurological: Yes: WNL, Alert, Oriented. No: Confusion, Lethargy, Unsteady Gait ...Motor Strength: WNL Psychiatric: Yes: WNL, Alert, Oriented. No: Agitated, Suicidal Ideation Labs: CBC, BMP 06/22/17 05:45 INR, PTT INR 0.88 (0.82-1.09) 06/21/17 03:20 - ....Imaging Chest X-ray: Report Reviewed Other: Report Reviewed Assessment/Plan Patient is a 56F with history of COPD and emphysema (h/o ICU admission and intubation for acute on chronic respiratory failure in September 2015) here today s/ p fall also respiratory failure bipap dependant hypercapnia hypoxemia respiratory acidosis O2, Iv steroids, nebs iv atb inhalers iv lasix admitted to 4w head CT negative; neurology eval for head trauma sq heparin for DVT pfx if head CT negative R foot s/p trauma no pain, check xrays; podiatry f/u prognosis guarded d/w pt and staff d/w neurology dr Corcoran falls PFX d/w pt do not get OOB alone, call for help if needs OOB T time 45 min
[2017-06-22] MEDS ORDERED: HEPARIN NA (PORCINE) 5,000 UNITS/ML 1ML VIAL SQ SCH (10:00)
[2017-06-22] MEDS: FUROSEMIDE 40 MG/4 ML INJECTABLE VIAL IVPUSH SCH (10:01)
[2017-06-22] MEDS: ASPIRIN 81 MG CHEWABLE TABLETS PO SCH (10:02)
[2017-06-22] MEDS: POTASSIUM CHLORIDE TABS 10 MEQ TABLET.ER (FP) PO SCH (10:02)
[2017-06-22] MEDS: ROFLUMILAST 500 MCG TABLET PO SCH (10:03)
[2017-06-22 10:12] LABS: ANION GAP 0 (8-16); CO2 49 mmol/L (21-32)
--- NOTE | 2017-06-22 10:33 | PN ---
Progress Note, Physician History of Present Illness: pulmonary alert,feeling better,on nasal o2,tolerated bibap last night - Current Medication List Current Medications: Active Medications Albuterol Sulfate (Ventolin 0.083% Nebulizer Soln -) 1 amp NEB Q4H [facility] Last Admin: 06/22/17 07:04 Dose: 1 amp Albuterol Sulfate (Ventolin Hfa Inhaler -) 2 puff IH Q6H PRN PRN Reason: SHORT OF BREATH/WHEEZING Last Admin: 06/21/17 09:52 Dose: 2 puff Aspirin (Asa -) 81 mg PO DAILY [facility] Last Admin: 06/22/17 10:02 Dose: 81 mg Furosemide (Lasix Injection -) 40 mg IVPUSH DAILY [facility] Last Admin: 06/22/17 10:01 Dose: 40 mg Heparin Sodium (Porcine) (Heparin -) 5,000 unit SQ BID [facility] Last Admin: 06/22/17 10:01 Dose: 5,000 unit Levofloxacin (Levaquin 500 Mg Premixed Ivpb -) 500 mg in 100 mls @ 100 mls/hr IVPB DAILY@0600 [facility] Last Admin: 06/22/17 06:31 Dose: 100 mls/hr Levothyroxine Sodium (Synthroid -) 100 mcg PO DAILY@0700 [facility] Last Admin: 06/22/17 06:31 Dose: 100 mcg Methylprednisolone Sodium Succinate (Solu-Medrol -) 40 mg IVPUSH Q6H-IV [facility] Last Admin: 06/22/17 10:01 Dose: 40 mg Montelukast Sodium (Singulair -) 10 mg PO HS [facility] Last Admin: 06/21/17 23:26 Dose: 10 mg Non-Formulary Medication (Fenofibrate [Lofibra]) 160 mg PO DAILY [facility] Last Admin: 06/21/17 11:35 Dose: Not Given Potassium Chloride (K-Dur -) 10 meq PO DAILY [facility] Last Admin: 06/22/17 10:02 Dose: 10 meq Roflumilast (Daliresp -) 500 mcg PO DAILY [facility] Last Admin: 06/22/17 10:03 Dose: 500 mcg - Objective Vital Signs: Vital Signs Temperature 98.2 F 06/22/17 08:05 Pulse Rate 80 06/22/17 08:05 Respiratory Rate 22 06/22/17 08:05 Blood Pressure 120/84 06/22/17 08:05 O2 Sat by Pulse Oximetry (%) 92 L 06/21/17 23:00 Constitutional: Yes: Well Nourished, Calm Eyes: Yes: WNL HENT: Yes: WNL Neck: Yes: WNL Cardiovascular: Yes: Regular Rate and Rhythm, S1, S2 Respiratory: Yes: Wheezes (scattered steve wheezes) Gastrointestinal: Yes: Normal Bowel Sounds, Soft Extremities: Yes: WNL Edema: No Labs: CBC, BMP 06/22/17 05:45 06/22/17 05:45 INR, PTT INR 0.88 (0.82-1.09) 06/21/17 03:20 Assessment/Plan Problem List - Problems (1) Acute on chronic respiratory failure with hypoxia and hypercapnia Code(s): J96.21 - ACUTE AND CHRONIC RESPIRATORY FAILURE WITH HYPOXIA; J96.22 - ACUTE AND CHRONIC RESPIRATORY FAILURE WITH HYPERCAPNIA (2) COPD exacerbation Code(s): J44.1 - CHRONIC OBSTRUCTIVE PULMONARY DISEASE W (ACUTE) EXACERBATION (3) Fall Code(s): W19.XXXA - UNSPECIFIED FALL, INITIAL ENCOUNTER (4) Acute diastolic (congestive) heart failure Code(s): I50.31 - ACUTE DIASTOLIC (CONGESTIVE) HEART FAILURE Assessment/Plan s/p Fall Acute on Chronic Hypoxic and Hypercapneic Respiratory Failure improving Acute Diastolic Heart Failure HTN Hypothyroidism - medrol same dose - inhaled bronchodilators standing and PRN - O2 to keep SpO2 88-92% - BiPAP at night and PRN during day - IV lasix - monitor urine output, creatinine - may benefit from home BiPAP or trilogy device due to chronic hypercapneic respiratory failure - DVT prophylaxis - nasal cannula DR MEDEIROS
--- NOTE | 2017-06-22 10:45 | PN ---
Progress Note, Physician History of Present Illness: Sensorium at baseline, undergoing treatment for acute on chronic hypercapneic respiratory failure. - Current Medication List Current Medications: Active Medications Albuterol Sulfate (Ventolin 0.083% Nebulizer Soln -) 1 amp NEB Q4H [facility] Last Admin: 06/22/17 07:04 Dose: 1 amp Albuterol Sulfate (Ventolin Hfa Inhaler -) 2 puff IH Q6H PRN PRN Reason: SHORT OF BREATH/WHEEZING Last Admin: 06/21/17 09:52 Dose: 2 puff Aspirin (Asa -) 81 mg PO DAILY [facility] Last Admin: 06/22/17 10:02 Dose: 81 mg Furosemide (Lasix Injection -) 40 mg IVPUSH DAILY [facility] Last Admin: 06/22/17 10:01 Dose: 40 mg Heparin Sodium (Porcine) (Heparin -) 5,000 unit SQ BID [facility] Levofloxacin (Levaquin 500 Mg Premixed Ivpb -) 500 mg in 100 mls @ 100 mls/hr IVPB DAILY@0600 [facility] Last Admin: 06/22/17 06:31 Dose: 100 mls/hr Levothyroxine Sodium (Synthroid -) 100 mcg PO DAILY@0700 [facility] Last Admin: 06/22/17 06:31 Dose: 100 mcg Methylprednisolone Sodium Succinate (Solu-Medrol -) 40 mg IVPUSH Q6H-IV [facility] Last Admin: 06/22/17 10:01 Dose: 40 mg Montelukast Sodium (Singulair -) 10 mg PO HS [facility] Last Admin: 06/21/17 23:26 Dose: 10 mg Non-Formulary Medication (Fenofibrate [Lofibra]) 160 mg PO DAILY [facility] Last Admin: 06/21/17 11:35 Dose: Not Given Potassium Chloride (K-Dur -) 10 meq PO DAILY [facility] Last Admin: 06/22/17 10:02 Dose: 10 meq Roflumilast (Daliresp -) 500 mcg PO DAILY [facility] Last Admin: 06/22/17 10:03 Dose: 500 mcg - Objective Vital Signs: Vital Signs Temperature 98.2 F 06/22/17 08:05 Pulse Rate 80 06/22/17 08:05 Respiratory Rate 22 06/22/17 08:05 Blood Pressure 120/84 06/22/17 08:05 O2 Sat by Pulse Oximetry (%) 92 L 06/21/17 23:00 Constitutional: Yes: No Distress, Calm Neck: Yes: Supple Cardiovascular: Yes: Regular Rate and Rhythm Respiratory: Yes: Regular, Diminished, On Nasal O2 Gastrointestinal: Yes: Normal Bowel Sounds, Soft, Abdomen, Obese Edema: Yes Edema: LLE: 1+, RLE: 1+ Labs: CBC, BMP 06/22/17 05:45 06/22/17 05:45 INR, PTT INR 0.88 (0.82-1.09) 06/21/17 03:20 - ....Imaging EKG: Report Reviewed (Tele: SR occ PVC) Problem List - Problems (1) Hypothyroidism Code(s): E03.9 - HYPOTHYROIDISM, UNSPECIFIED Qualifiers: Hypothyroidism type: unspecified Qualified Code(s): E03.9 - Hypothyroidism , unspecified (2) Acute diastolic (congestive) heart failure Code(s): I50.31 - ACUTE DIASTOLIC (CONGESTIVE) HEART FAILURE (3) Acute on chronic respiratory failure with hypoxia and hypercapnia Code(s): J96.21 - ACUTE AND CHRONIC RESPIRATORY FAILURE WITH HYPOXIA; J96.22 - ACUTE AND CHRONIC RESPIRATORY FAILURE WITH HYPERCAPNIA (4) COPD exacerbation Code(s): J44.1 - CHRONIC OBSTRUCTIVE PULMONARY DISEASE W (ACUTE) EXACERBATION (5) Fall Code(s): W19.XXXA - UNSPECIFIED FALL, INITIAL ENCOUNTER Qualifiers: Encounter type: initial encounter Qualified Code(s): W19.XXXA - Unspecified fall, initial encounter Assessment/Plan Echocardiography revealed normal LV systolic function with mild MR 1. Acute on chronic hypoxic and hypercapneic respiratory failure related to acute exacerbation of 2. Chronic obstructive pulmonary disease and 3. Acute on chronic diastolic heart failure 4. HTN/HCVD 5. Mixed dyslipidemia 6. Hypothyroidism 7. s/p fall PLAN: 1. IV steroids, BD, empiric abx, Singulair, Daliresp, O2 to keep SpO2 88-92% to avoid worsening V/Q mismatch, BiPAP at night and PRN during day 2. IV diuresis with monitor diuretic response, renal function and electrolytes 3. Start losartan 25 qd as hemodynamics tolerate 4. May benefit from home BiPAP or trilogy device due to chronic hypercapneic respiratory failure 5. DVT prophylaxis
[2017-06-22] MEDS ORDERED: LOSARTAN POTASSIUM 25 MG TABLET PO SCH (11:00)
--- NOTE | 2017-06-22 12:01 | PN ---
Progress Note (short form) - Note Progress Note: 56 year old female history of COPD, emphysema, HTN, Hypothyroidism, She uses walker to walk. Patient fell three days ago , when she get tangled with her oxygen cord. She has another fall today when she fell backward. She denies any loss of consiousness. There is no seizure like activity, no tongue bite . She denies any tingling or numbness or frequent fall. She denies any weakness or one sided weakness. no focal symptoms Neurological Examination Alert Oriented x 3, speech is normal CN all intact, eomi, no face asymmetry Motor is 5/5 all extremity FTN HTS is normal, reflex are symmetrical Ct normal Assessment- Episode of fall, no LOc, Neurological Examination is normal. There is bump on the head. ct head is normal. No focal neurological symptoms or sign identified. First episode was due to tangling with tube , second episode due to exhaution and intercurrent medical illness. No further Neurological Recommendation Would see her prn Thank you so much Corey Alfaro MD
[2017-06-22] MEDS: MONTELUKAST NA 10 MG TABLET PO SCH (21:11)
[2017-06-22] MEDS: HEPARIN NA (PORCINE) 5,000 UNITS/ML 1ML VIAL SQ SCH (21:14)
[2017-06-23] MEDS: ALBUTEROL SO4 0.083% IH SOL 2.5 MG/3 ML VIAL.NEB. NEB SCH ×6 (01:24→22:30)
[2017-06-23] MEDS: methylPREDNISolone NA SUCC 40 MG/1 ML VIAL IVPUSH SCH ×3 (02:23→17:26)
[2017-06-23] MEDS: LEVOFLOXACIN 500 MG IVPB 500 MG/100 ML BAG IVPB SCH (05:47)
[2017-06-23] MEDS: LEVOTHYROXINE NA 100 MCG TABLET (FP) PO SCH (06:16)
--- NOTE | 2017-06-23 09:09 | PN ---
Progress Note (short form) - Note Progress Note: Chief Complaint: Events noted, notes reviewed, denies any chest pain, dyspnea persists but improving History of Present Illness: Seen and examined on telemetry. Events noted, notes reviewed, denies any chest pain, dyspnea persists but improving - Current Medication List Current Medications Albuterol Sulfate (Ventolin 0.083% Nebulizer Soln -) 1 amp NEB Q4H [facility] Last Admin: 06/23/17 06:24 Dose: 1 amp Albuterol Sulfate (Ventolin Hfa Inhaler -) 2 puff IH Q6H PRN PRN Reason: SHORT OF BREATH/WHEEZING Last Admin: 06/21/17 09:52 Dose: 2 puff Aspirin (Asa -) 81 mg PO DAILY [facility] Last Admin: 06/22/17 10:02 Dose: 81 mg Fenofibric Acid (Trilipix -) 135 mg PO DAILY [facility] Furosemide (Lasix Injection -) 40 mg IVPUSH DAILY [facility] Last Admin: 06/22/17 10:01 Dose: 40 mg Heparin Sodium (Porcine) (Heparin -) 5,000 unit SQ BID [facility] Last Admin: 06/22/17 21:14 Dose: 5,000 unit Levofloxacin (Levaquin 500 Mg Premixed Ivpb -) 500 mg in 100 mls @ 100 mls/hr IVPB DAILY@0600 [facility] Last Admin: 06/23/17 05:47 Dose: 100 mls/hr Levothyroxine Sodium (Synthroid -) 100 mcg PO DAILY@0700 [facility] Last Admin: 06/23/17 06:16 Dose: 100 mcg Losartan Potassium (Cozaar -) 25 mg PO DAILY [facility] Last Admin: 06/22/17 12:30 Dose: 25 mg Methylprednisolone Sodium Succinate (Solu-Medrol -) 40 mg IVPUSH Q6H-IV [facility] Last Admin: 06/23/17 02:23 Dose: 40 mg Montelukast Sodium (Singulair -) 10 mg PO HS [facility] Last Admin: 06/22/17 21:11 Dose: 10 mg Potassium Chloride (K-Dur -) 10 meq PO DAILY [facility] Last Admin: 06/22/17 10:02 Dose: 10 meq Roflumilast (Daliresp -) 500 mcg PO DAILY [facility] Last Admin: 06/22/17 10:03 Dose: 500 mcg Review of Systems Constitutional: denies: Chills Cardiovascular: As noted above Respiratory: denies: Cough or Sputum Production Gastrointestinal: denies: Nausea, Vomiting, Diarrhea, Constipation or Abdominal Pain Musculoskeletal: No Symptoms Reported Neurological: denies: Dizziness or Headache - Objective Vital Signs: Last Vital Signs Temp Pulse Resp BP Pulse Ox 98.2 F 80 20 146/86 96 06/23/17 08:01 06/23/17 08:01 06/23/17 08:01 06/23/17 08:01 06/22/17 20:30 Intake & Output 06/20/17 06/21/17 06/22/17 06/23/17 23:59 23:59 23:59 23:59 Intake Total 400 560 Balance 400 560 Weight 181 lb Constitutional: No Distress, Calm, Thin Neck: Supple Negative JVD No Bruit Respiratory: Distant Breath Sounds Bilaterally Cardiovascular: S1 S2 Regular Rate and Rhythm Gastrointestinal: Soft Benign Normal Bowel Sounds Ext: No Edema Labs: CBC, BMP 06/22/17 05:45 06/22/17 05:45 ASSESSMENT/PLAN: ASSESSMENT: 1. Acute on chronic hypoxic and hypercapneic respiratory failure related to acute exacerbation of 2. Chronic obstructive pulmonary disease and 3. Acute on chronic class I-II NYHA classification LV diastolic congestive heart failure, resolving 4. HTN/HCVD 5. Hypercholesterolemia/mixed dyslipidemia 6. Hypothyroidism 7. Post mechanical fall PLAN: 1. Continue Cozaar and titrate dosage, hemodynamics permitting 2. Continue Lasix but initiate PO therapy 3. Continue ASA 4. Continue Trilipix 5. Continue bronchodilators and steroids as per the pulmonary team 6. PT and D/C planning as per the primary/pulmonary teams Cary Mancini M.D.
[2017-06-23] MEDS: LOSARTAN POTASSIUM 50 MG TABLET (FP) PO SCH (09:40)
[2017-06-23] MEDS: ROFLUMILAST 500 MCG TABLET PO SCH (09:40)
[2017-06-23] MEDS: FUROSEMIDE 40 MG TABLET (FP) PO SCH (09:40)
[2017-06-23] MEDS: FENOFIBRIC ACID 135 MG CAP PO SCH (09:40)
[2017-06-23] MEDS: ASPIRIN 81 MG CHEWABLE TABLETS PO SCH (09:40)
[2017-06-23] MEDS: POTASSIUM CHLORIDE TABS 10 MEQ TABLET.ER (FP) PO SCH (09:40)
[2017-06-23] MEDS: HEPARIN NA (PORCINE) 5,000 UNITS/ML 1ML VIAL SQ SCH ×2 (09:40→21:28)
--- NOTE | 2017-06-23 11:19 | PN ---
Progress Note, Physician History of Present Illness: pulmonary alert,feeling better,less dyspneic,-cp, - Current Medication List Current Medications: Active Medications Albuterol Sulfate (Ventolin 0.083% Nebulizer Soln -) 1 amp NEB Q4H [facility] Last Admin: 06/23/17 06:24 Dose: 1 amp Albuterol Sulfate (Ventolin Hfa Inhaler -) 2 puff IH Q6H PRN PRN Reason: SHORT OF BREATH/WHEEZING Last Admin: 06/21/17 09:52 Dose: 2 puff Aspirin (Asa -) 81 mg PO DAILY [facility] Last Admin: 06/23/17 09:40 Dose: 81 mg Fenofibric Acid (Trilipix -) 135 mg PO DAILY [facility] Last Admin: 06/23/17 09:40 Dose: 135 mg Furosemide (Lasix -) 40 mg PO DAILY [facility] Last Admin: 06/23/17 09:40 Dose: 40 mg Heparin Sodium (Porcine) (Heparin -) 5,000 unit SQ BID [facility] Last Admin: 06/23/17 09:40 Dose: 5,000 unit Levofloxacin (Levaquin 500 Mg Premixed Ivpb -) 500 mg in 100 mls @ 100 mls/hr IVPB DAILY@0600 [facility] Last Admin: 06/23/17 05:47 Dose: 100 mls/hr Levothyroxine Sodium (Synthroid -) 100 mcg PO DAILY@0700 [facility] Last Admin: 06/23/17 06:16 Dose: 100 mcg Losartan Potassium (Cozaar -) 50 mg PO DAILY [facility] Last Admin: 06/23/17 09:40 Dose: 50 mg Methylprednisolone Sodium Succinate (Solu-Medrol -) 40 mg IVPUSH Q6H-IV [facility] Last Admin: 06/23/17 09:40 Dose: 40 mg Montelukast Sodium (Singulair -) 10 mg PO HS [facility] Last Admin: 06/22/17 21:11 Dose: 10 mg Potassium Chloride (K-Dur -) 10 meq PO DAILY [facility] Last Admin: 06/23/17 09:40 Dose: 10 meq Roflumilast (Daliresp -) 500 mcg PO DAILY [facility] Last Admin: 06/23/17 09:40 Dose: 500 mcg - Objective Vital Signs: Vital Signs Temperature 98.2 F 06/23/17 08:01 Pulse Rate 80 06/23/17 08:01 Respiratory Rate 20 06/23/17 08:01 Blood Pressure 146/86 06/23/17 08:01 O2 Sat by Pulse Oximetry (%) 96 06/22/17 20:30 Constitutional: Yes: Well Nourished, Calm Eyes: Yes: WNL HENT: Yes: WNL Neck: Yes: WNL Cardiovascular: Yes: Regular Rate and Rhythm, S1, S2 Respiratory: Yes: Wheezes (few scattered wheezes) Gastrointestinal: Yes: Normal Bowel Sounds, Soft Extremities: Yes: WNL Edema: No Labs: CBC, BMP Assessment/Plan Problem List - Problems (1) Acute on chronic respiratory failure with hypoxia and hypercapnia Code(s): J96.21 - ACUTE AND CHRONIC RESPIRATORY FAILURE WITH HYPOXIA; J96.22 - ACUTE AND CHRONIC RESPIRATORY FAILURE WITH HYPERCAPNIA (2) COPD exacerbation Code(s): J44.1 - CHRONIC OBSTRUCTIVE PULMONARY DISEASE W (ACUTE) EXACERBATION (3) Fall Code(s): W19.XXXA - UNSPECIFIED FALL, INITIAL ENCOUNTER (4) Acute diastolic (congestive) heart failure Code(s): I50.31 - ACUTE DIASTOLIC (CONGESTIVE) HEART FAILURE Assessment/Plan s/p Fall Acute on Chronic Hypoxic and Hypercapneic Respiratory Failure improving Acute Diastolic Heart Failure HTN Hypothyroidism - medrol taper - inhaled bronchodilators standing and PRN - O2 to keep SpO2 88-92% - BiPAP at night and PRN during day - IV lasix - monitor urine output, creatinine - may benefit from home BiPAP or trilogy device due to chronic hypercapneic respiratory failure - DVT prophylaxis - nasal cannula as tolerated DR MEDEIROS
--- NOTE | 2017-06-23 12:45 | PN ---
Progress Note, Physician Chief Complaint: in bed slightly better today less SOB hoping to go home in am - Current Medication List Current Medications: Active Medications Albuterol Sulfate (Ventolin 0.083% Nebulizer Soln -) 1 amp NEB Q4H [facility] Last Admin: 06/23/17 06:24 Dose: 1 amp Albuterol Sulfate (Ventolin Hfa Inhaler -) 2 puff IH Q6H PRN PRN Reason: SHORT OF BREATH/WHEEZING Last Admin: 06/21/17 09:52 Dose: 2 puff Aspirin (Asa -) 81 mg PO DAILY [facility] Last Admin: 06/23/17 09:40 Dose: 81 mg Fenofibric Acid (Trilipix -) 135 mg PO DAILY [facility] Last Admin: 06/23/17 09:40 Dose: 135 mg Furosemide (Lasix -) 40 mg PO DAILY [facility] Last Admin: 06/23/17 09:40 Dose: 40 mg Heparin Sodium (Porcine) (Heparin -) 5,000 unit SQ BID [facility] Last Admin: 06/23/17 09:40 Dose: 5,000 unit Levofloxacin (Levaquin 500 Mg Premixed Ivpb -) 500 mg in 100 mls @ 100 mls/hr IVPB DAILY@0600 [facility] Last Admin: 06/23/17 05:47 Dose: 100 mls/hr Levothyroxine Sodium (Synthroid -) 100 mcg PO DAILY@0700 [facility] Last Admin: 06/23/17 06:16 Dose: 100 mcg Losartan Potassium (Cozaar -) 50 mg PO DAILY [facility] Last Admin: 06/23/17 09:40 Dose: 50 mg Methylprednisolone Sodium Succinate (Solu-Medrol -) 40 mg IVPUSH Q8H-IV [facility] Montelukast Sodium (Singulair -) 10 mg PO HS [facility] Last Admin: 06/22/17 21:11 Dose: 10 mg Potassium Chloride (K-Dur -) 10 meq PO DAILY [facility] Last Admin: 06/23/17 09:40 Dose: 10 meq Roflumilast (Daliresp -) 500 mcg PO DAILY [facility] Last Admin: 06/23/17 09:40 Dose: 500 mcg - Objective Vital Signs: Vital Signs Temperature 98.2 F 06/23/17 08:01 Pulse Rate 80 06/23/17 08:01 Respiratory Rate 20 06/23/17 08:01 Blood Pressure 146/86 06/23/17 08:01 O2 Sat by Pulse Oximetry (%) 96 06/22/17 20:30 Constitutional: Yes: No Distress, Calm Eyes: Yes: Conjunctiva Clear HENT: Yes: Atraumatic Neck: Yes: Supple Cardiovascular: Yes: Regular Rate and Rhythm Respiratory: Yes: Rales Gastrointestinal: Yes: Soft, Abdomen, Obese. No: Tenderness Genitourinary: No: CVA Tenderness - Left, CVA Tenderness - Right Musculoskeletal: No: Joint Stiffness, Joint Swelling Extremities: Yes: Other (less R foot bruises). No: Cold, Cool Edema: Yes (less ) Integumentary: No: Rash, Venous Stasis Changes Neurological: Yes: WNL, Alert, Oriented ...Motor Strength: WNL Psychiatric: Yes: WNL, Alert, Oriented. No: Agitated, Suicidal Ideation Labs: CBC, BMP 06/22/17 05:45 06/22/17 05:45 INR, PTT INR 0.88 (0.82-1.09) 06/21/17 03:20 - ....Imaging Other: Report Reviewed Assessment/Plan Patient is a 56F with history of COPD and emphysema (h/o ICU admission and intubation for acute on chronic respiratory failure in September 2015) here today s/ p fall also respiratory failure bipap dependant hypercapnia hypoxemia respiratory acidosis O2, Iv steroids, nebs iv atb inhalers iv lasix admitted to 4w cardiology, pulmonary and neurology f/u sq heparin for DVT pfx R foot s/p trauma no pain, check xrays; podiatry f/u as outpt prognosis guarded d/w pt and staff falls PFX d/w pt do not get OOB alone, call for help if needs OOB
[2017-06-23] MEDS: MONTELUKAST NA 10 MG TABLET PO SCH (21:28)
[2017-06-24] MEDS: ALBUTEROL SO4 0.083% IH SOL 2.5 MG/3 ML VIAL.NEB. NEB SCH ×2 (01:54→07:02)
[2017-06-24] MEDS: methylPREDNISolone NA SUCC 40 MG/1 ML VIAL IVPUSH SCH ×2 (02:10→10:26)
[2017-06-24] MEDS: LEVOTHYROXINE NA 100 MCG TABLET (FP) PO SCH (06:44)
[2017-06-24] MEDS: LEVOFLOXACIN 500 MG IVPB 500 MG/100 ML BAG IVPB SCH (06:45)
[2017-06-24 07:55] LABS: LYMPH # 0.2 (8-40); MCH 30.3 pg (25.7-33.7); MCHC 31.2 g/dl (32.0-36.0); MEAN CELL VOLUME 97.2 fl (80-96); MEAN PLT VOLUME 8.9 fl (7.5-11.1); MONO # 0.4 # (3.8-10.2); NEUT % 90.2 % (42.8-82.8); PLATELET COUNT 172 K/MM3 (134-434); RDW 14.1 % (11.6-15.6); WHITE BLOOD COUNT 6.6 K/mm3 (4.0-10.0)
[2017-06-24 08:21] LABS: ALBUMIN 3.1 g/dl (3.4-5.0); ALK PHOS 49 U/L (45-117); ANION GAP 6 (8-16); BILIRUBIN,TOTAL 0.4 mg/dL (0.2-1.0); CO2 42 mmol/L (21-32); CREATININE 0.8 mg/dL (0.55-1.02); GLUCOSE,RANDOM 134 mg/dL (74-106); SGOT/AST 14 U/L (15-37); SGPT/ALT 24 U/L (12-78)
--- NOTE | 2017-06-24 10:17 | PN ---
Progress Note, Physician History of Present Illness: Dyspnea on exertion at baseline, undergoing treatment for acute on chronic hypercapneic respiratory failure. - Current Medication List Current Medications: Active Medications Albuterol Sulfate (Ventolin 0.083% Nebulizer Soln -) 1 amp NEB Q4H [facility] Last Admin: 06/24/17 07:02 Dose: 1 amp Albuterol Sulfate (Ventolin Hfa Inhaler -) 2 puff IH Q6H PRN PRN Reason: SHORT OF BREATH/WHEEZING Last Admin: 06/21/17 09:52 Dose: 2 puff Aspirin (Asa -) 81 mg PO DAILY [facility] Last Admin: 06/23/17 09:40 Dose: 81 mg Fenofibric Acid (Trilipix -) 135 mg PO DAILY [facility] Last Admin: 06/23/17 09:40 Dose: 135 mg Furosemide (Lasix -) 40 mg PO DAILY [facility] Last Admin: 06/23/17 09:40 Dose: 40 mg Heparin Sodium (Porcine) (Heparin -) 5,000 unit SQ BID [facility] Last Admin: 06/23/17 21:28 Dose: 5,000 unit Levofloxacin (Levaquin 500 Mg Premixed Ivpb -) 500 mg in 100 mls @ 100 mls/hr IVPB DAILY@0600 [facility] Last Admin: 06/24/17 06:45 Dose: 100 mls/hr Levothyroxine Sodium (Synthroid -) 100 mcg PO DAILY@0700 [facility] Last Admin: 06/24/17 06:44 Dose: 100 mcg Losartan Potassium (Cozaar -) 50 mg PO DAILY [facility] Last Admin: 06/23/17 09:40 Dose: 50 mg Methylprednisolone Sodium Succinate (Solu-Medrol -) 40 mg IVPUSH Q8H-IV [facility] Last Admin: 06/24/17 02:10 Dose: 40 mg Montelukast Sodium (Singulair -) 10 mg PO HS [facility] Last Admin: 06/23/17 21:28 Dose: 10 mg Potassium Chloride (K-Dur -) 10 meq PO DAILY [facility] Last Admin: 06/23/17 09:40 Dose: 10 meq Roflumilast (Daliresp -) 500 mcg PO DAILY [facility] Last Admin: 06/23/17 09:40 Dose: 500 mcg - Objective Vital Signs: Vital Signs Temperature 98.4 F 06/24/17 06:00 Pulse Rate 63 06/24/17 06:00 Respiratory Rate 20 06/24/17 06:00 Blood Pressure 121/68 06/24/17 06:00 O2 Sat by Pulse Oximetry (%) 98 06/24/17 01:54 Constitutional: Yes: No Distress, Calm Neck: Yes: Supple Cardiovascular: Yes: Regular Rate and Rhythm Respiratory: Yes: Regular, Diminished, On Nasal O2 Gastrointestinal: Yes: Normal Bowel Sounds, Soft, Abdomen, Obese Edema: Yes Edema: LLE: Trace, RLE: Trace Labs: CBC, BMP 06/24/17 05:05 06/24/17 05:05 INR, PTT INR 0.88 (0.82-1.09) 06/21/17 03:20 - ....Imaging EKG: Report Reviewed (Tele: SR) Problem List - Problems (1) Hypothyroidism Code(s): E03.9 - HYPOTHYROIDISM, UNSPECIFIED Qualifiers: Hypothyroidism type: unspecified Qualified Code(s): E03.9 - Hypothyroidism , unspecified (2) Acute diastolic (congestive) heart failure Code(s): I50.31 - ACUTE DIASTOLIC (CONGESTIVE) HEART FAILURE (3) Acute on chronic respiratory failure with hypoxia and hypercapnia Code(s): J96.21 - ACUTE AND CHRONIC RESPIRATORY FAILURE WITH HYPOXIA; J96.22 - ACUTE AND CHRONIC RESPIRATORY FAILURE WITH HYPERCAPNIA (4) COPD exacerbation Code(s): J44.1 - CHRONIC OBSTRUCTIVE PULMONARY DISEASE W (ACUTE) EXACERBATION (5) Fall Code(s): W19.XXXA - UNSPECIFIED FALL, INITIAL ENCOUNTER Qualifiers: Encounter type: initial encounter Qualified Code(s): W19.XXXA - Unspecified fall, initial encounter Assessment/Plan Echocardiography revealed normal LV systolic function with mild MR 1. Improving acute on chronic hypoxic and hypercapneic respiratory failure related to acute exacerbation of 2. Home-O2 dependent chronic obstructive pulmonary disease and 3. Acute on chronic diastolic heart failure resolving 4. HTN/HCVD 5. Mixed dyslipidemia 6. Hypothyroidism 7. s/p fall 8. OSAS/OHS suspect PLAN: 1. Steroid taper, BD, empiric abx, Singulair, Daliresp, home O2 to keep SpO2 88- 92% to avoid worsening V/Q mismatch, BiPAP at night and PRN during day 2. Lasix 40 qd with monitor diuretic response, renal function and electrolytes 3. Continue ASA 81 qd, Trilipix 135 qd, losartan 50 qd as hemodynamics tolerate 4. May benefit from home BiPAP or trilogy device due to chronic hypercapneic respiratory failure, PSG as outpatient 5. DVT prophylaxis, d/c planning
[2017-06-24] MEDS: POTASSIUM CHLORIDE TABS 10 MEQ TABLET.ER (FP) PO SCH (10:25)
[2017-06-24] MEDS: FENOFIBRIC ACID 135 MG CAP PO SCH (10:25)
[2017-06-24] MEDS: LOSARTAN POTASSIUM 50 MG TABLET (FP) PO SCH (10:25)
[2017-06-24] MEDS: FUROSEMIDE 40 MG TABLET (FP) PO SCH (10:25)
[2017-06-24] MEDS: HEPARIN NA (PORCINE) 5,000 UNITS/ML 1ML VIAL SQ SCH (10:25)
[2017-06-24] MEDS: ASPIRIN 81 MG CHEWABLE TABLETS PO SCH (10:25)
[2017-06-24] MEDS ORDERED: PT OWN MED DRAWER 7, Y5N ONE (10:36)
[2017-06-24] MEDS: ROFLUMILAST 500 MCG TABLET PO SCH (10:49)
--- NOTE | 2017-06-24 10:52 | PN ---
Progress Note, Physician Chief Complaint: feels better wants to go home TODAY I d/w pulm dr Parrish who checked ABG and after he saw pt he advised she can go home on PO steroids 60 mg/day prednisone then advised pt to call him on 06/26 for further tapering I d/w HERACLIO Chari pt needs Cpap/Bipap or trilogy machine at home, will try to deliver malika; I also d/w pt's PCP dr Mariana Navarro who already ordered the machine for her home pt has home INH, nebs, O2 NC d/w pt all the meds, scripts and f/u needed - Current Medication List Current Medications: Active Medications Albuterol Sulfate (Ventolin 0.083% Nebulizer Soln -) 1 amp NEB Q4H [facility] Last Admin: 06/24/17 07:02 Dose: 1 amp Albuterol Sulfate (Ventolin Hfa Inhaler -) 2 puff IH Q6H PRN PRN Reason: SHORT OF BREATH/WHEEZING Last Admin: 06/21/17 09:52 Dose: 2 puff Aspirin (Asa -) 81 mg PO DAILY [facility] Last Admin: 06/24/17 10:25 Dose: 81 mg Fenofibric Acid (Trilipix -) 135 mg PO DAILY [facility] Last Admin: 06/24/17 10:25 Dose: 135 mg Furosemide (Lasix -) 40 mg PO DAILY [facility] Last Admin: 06/24/17 10:25 Dose: 40 mg Heparin Sodium (Porcine) (Heparin -) 5,000 unit SQ BID [facility] Last Admin: 06/24/17 10:25 Dose: 5,000 unit Levofloxacin (Levaquin 500 Mg Premixed Ivpb -) 500 mg in 100 mls @ 100 mls/hr IVPB DAILY@0600 [facility] Last Admin: 06/24/17 06:45 Dose: 100 mls/hr Levothyroxine Sodium (Synthroid -) 100 mcg PO DAILY@0700 [facility] Last Admin: 06/24/17 06:44 Dose: 100 mcg Losartan Potassium (Cozaar -) 50 mg PO DAILY [facility] Last Admin: 06/24/17 10:25 Dose: 50 mg Methylprednisolone Sodium Succinate (Solu-Medrol -) 40 mg IVPUSH Q8H-IV [facility] Last Admin: 06/24/17 10:26 Dose: 40 mg Montelukast Sodium (Singulair -) 10 mg PO HS [facility] Last Admin: 06/23/17 21:28 Dose: 10 mg Roflumilast (Daliresp -) 500 mcg PO DAILY [facility] Last Admin: 06/24/17 10:49 Dose: 500 mcg - Objective Vital Signs: Vital Signs Temperature 98.4 F 06/24/17 06:00 Pulse Rate 63 06/24/17 06:00 Respiratory Rate 20 06/24/17 06:00 Blood Pressure 121/68 06/24/17 06:00 O2 Sat by Pulse Oximetry (%) 98 06/24/17 01:54 Constitutional: Yes: No Distress, Calm Eyes: Yes: Conjunctiva Clear HENT: Yes: Atraumatic Neck: Yes: Supple Cardiovascular: Yes: Regular Rate and Rhythm Respiratory: Yes: CTA Bilaterally Gastrointestinal: Yes: Soft. No: Distention, Tenderness Genitourinary: No: CVA Tenderness - Left, CVA Tenderness - Right, Hematuria Musculoskeletal: No: Joint Stiffness, Joint Swelling Extremities: Yes: Other (R foot bruises better no pain no swelling or rash). No : Cold, Cool, Cyanosis Edema: No Peripheral Pulses WNL: Yes Integumentary: No: Rash, Skin Tear, Venous Stasis Changes Neurological: Yes: WNL, Alert, Oriented ...Motor Strength: WNL Psychiatric: Yes: WNL, Alert, Oriented. No: Agitated, Suicidal Ideation Labs: CBC, BMP 06/24/17 05:05 06/24/17 05:05 INR, PTT INR 0.88 (0.82-1.09) 06/21/17 03:20 - ....Imaging Other: Report Reviewed Assessment/Plan Patient is a 56F with history of COPD and emphysema (h/o ICU admission and intubation for acute on chronic respiratory failure in September 2015) here today s/ p fall also respiratory failure bipap dependant hypercapnia hypoxemia respiratory acidosis O2, Iv steroids, nebs iv atb inhalers iv lasix admitted to 4w cardiology, pulmonary and neurology f/u sq heparin for DVT pfx DC home today OKd by pulmonary dr Parrish see DC summary also today
--- NOTE | 2017-06-24 11:52 | PN ---
Progress Note, Physician History of Present Illness: PULMONARY ALERT,NAD,-SOB,,OOB-CHAIR. - Current Medication List Current Medications: Active Medications Albuterol Sulfate (Ventolin 0.083% Nebulizer Soln -) 1 amp NEB Q4H [facility] Last Admin: 06/24/17 07:02 Dose: 1 amp Albuterol Sulfate (Ventolin Hfa Inhaler -) 2 puff IH Q6H PRN PRN Reason: SHORT OF BREATH/WHEEZING Last Admin: 06/21/17 09:52 Dose: 2 puff Aspirin (Asa -) 81 mg PO DAILY [facility] Last Admin: 06/24/17 10:25 Dose: 81 mg Fenofibric Acid (Trilipix -) 135 mg PO DAILY [facility] Last Admin: 06/24/17 10:25 Dose: 135 mg Furosemide (Lasix -) 40 mg PO DAILY [facility] Last Admin: 06/24/17 10:25 Dose: 40 mg Heparin Sodium (Porcine) (Heparin -) 5,000 unit SQ BID [facility] Last Admin: 06/24/17 10:25 Dose: 5,000 unit Levofloxacin (Levaquin 500 Mg Premixed Ivpb -) 500 mg in 100 mls @ 100 mls/hr IVPB DAILY@0600 [facility] Last Admin: 06/24/17 06:45 Dose: 100 mls/hr Levothyroxine Sodium (Synthroid -) 100 mcg PO DAILY@0700 [facility] Last Admin: 06/24/17 06:44 Dose: 100 mcg Losartan Potassium (Cozaar -) 50 mg PO DAILY [facility] Last Admin: 06/24/17 10:25 Dose: 50 mg Methylprednisolone Sodium Succinate (Solu-Medrol -) 40 mg IVPUSH Q8H-IV [facility] Last Admin: 06/24/17 10:26 Dose: 40 mg Montelukast Sodium (Singulair -) 10 mg PO HS [facility] Last Admin: 06/23/17 21:28 Dose: 10 mg Potassium Chloride (K-Dur -) 20 meq PO DAILY [facility] Roflumilast (Daliresp -) 500 mcg PO DAILY [facility] Last Admin: 06/24/17 10:49 Dose: 500 mcg - Objective Vital Signs: Vital Signs Temperature 98.4 F 06/24/17 06:00 Pulse Rate 63 06/24/17 06:00 Respiratory Rate 20 06/24/17 06:00 Blood Pressure 121/68 06/24/17 06:00 O2 Sat by Pulse Oximetry (%) 98 06/24/17 01:54 Constitutional: Yes: Well Nourished, Calm Eyes: Yes: WNL HENT: Yes: WNL Neck: Yes: WNL Cardiovascular: Yes: Regular Rate and Rhythm, S1, S2 Respiratory: Yes: Diminished Gastrointestinal: Yes: Normal Bowel Sounds, Soft Extremities: Yes: WNL Edema: No Labs: CBC, BMP 06/24/17 05:05 06/24/17 05:05 INR, PTT INR 0.88 (0.82-1.09) 06/21/17 03:20 Assessment/Plan Problem List - Problems (1) Acute on chronic respiratory failure with hypoxia and hypercapnia Code(s): J96.21 - ACUTE AND CHRONIC RESPIRATORY FAILURE WITH HYPOXIA; J96.22 - ACUTE AND CHRONIC RESPIRATORY FAILURE WITH HYPERCAPNIA (2) COPD exacerbation Code(s): J44.1 - CHRONIC OBSTRUCTIVE PULMONARY DISEASE W (ACUTE) EXACERBATION (3) Fall Code(s): W19.XXXA - UNSPECIFIED FALL, INITIAL ENCOUNTER (4) Acute diastolic (congestive) heart failure Code(s): I50.31 - ACUTE DIASTOLIC (CONGESTIVE) HEART FAILURE Assessment/Plan s/p Fall Acute on Chronic Hypoxic and Hypercapneic Respiratory Failure improving Acute Diastolic Heart Failure HTN Hypothyroidism - prednisone 60mg daily - inhaled bronchodilators standing and PRN - O2 to keep SpO2 88-92% - BiPAP at night - lasix - may benefit from home BiPAP or trilogy device due to chronic hypercapneic respiratory failure - DVT prophylaxis - nasal cannula as tolerated DR MEDEIROS
[2017-06-24 12:22] LABS: ARTERIAL BLOOD GAS BASE EXCESS 14.3 meq/l (-2-2)
[2017-06-24 12:40] LABS: ALLENS TEST POSITIVE; ART PUNCT SITE RIGHT RADIAL; PT. ON O2? YES; TYPE OF O2 NASAL
--- NOTE | 2017-06-24 13:55 | DS ---
Physical Examination Vital Signs: Vital Signs Temperature 98.4 F 06/24/17 06:00 Pulse Rate 63 06/24/17 06:00 Respiratory Rate 20 06/24/17 06:00 Blood Pressure 121/68 06/24/17 06:00 O2 Sat by Pulse Oximetry (%) 98 06/24/17 01:54 Findings/Remarks: feels much better wants to go home TODAY see progress note; cleared by dr Francois salazar all scripts done meds and f/u needed d/w pt t time 50 minutes see PE on PN today Labs: CBC, BMP 06/24/17 05:05 06/24/17 05:05 Discharge Summary Reason For Visit: PNEUMONIA,COPD RESPIRATORY FAILURE Current Active Problems Acute and chronic respiratory failure with hypoxia (Acute) Acute diastolic (congestive) heart failure (Acute) Acute on chronic respiratory failure with hypoxia and hypercapnia (Acute) COPD exacerbation (Acute) Fall (Acute) Hypothyroidism (Acute) Pneumonia (Acute) Procedures: Principal: admitted with COPD exac respiratory failure acute bronchitis, s/p fall Other Procedures: IV steroids, nebs, IV ATB, O2 and Bipap machine. 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 in 1 -2 weeks of DC taper steroids as advised by dr Parrish; gastric PFX tagamet while on steroids po ATB x 1 week needs trilogy or Cpap machine at home as ordered and d/w pt, pt's PCP martin Xiong dr nebs and INH as ordered pt has home already RTER if worse or recurrent complaints scripts done and dw pt and PCP Referrals: Max Parrish MD [Staff Physician] - Laura Navraro MD [Primary Care Provider] - Shekhar Perales MD [Staff Physician] - Jordon Grossman DO [Staff Physician] - - Home Medications Comprehensive Discharge Medication List: Ambulatory Orders Fenofibrate [Lofibra] 160 mg PO DAILY 10/13/15 Albuterol 0.083% Nebulizer Colette [Ventolin 0.083% Nebulizer Soln -] 1 neb NEB Q4H #0 tab 06/24/17 Albuterol Sulfate Inhaler - [Ventolin HFA Inhaler -] 2 inh PO Q6H PRN #0 inh Aspirin [ASA -] 81 mg PO DAILY #0 tab 06/24/17 Fenofibric Acid [Trilipix -] 135 mg PO DAILY cap 06/24/17 Furosemide [Lasix -] 40 mg PO DAILY #0 tab 06/24/17 Furosemide [Lasix -] 40 mg PO DAILY #30 tablet 06/24/17 Levofloxacin [Levaquin -] 500 mg PO DAILY #7 tablet 06/24/17 Levothyroxine [Synthroid -] 100 mcg PO DAILY #0 tab 06/24/17 Levothyroxine [Synthroid -] 100 mcg PO DAILY@0700 tablet 06/24/17 Losartan Potassium [Cozaar -] 25 mg PO DAILY #30 tablet 06/24/17 Montelukast Na [Singulair -] 10 mg PO HS #0 tab 06/24/17 Potassium Chloride [K-Dur -] 20 meq PO DAILY #30 tablet.er 06/24/17 Prednisone 5 mg PO DAILY #30 tab 06/24/17 Ranitidine HCl [Zantac] 150 mg PO HS #30 tablet 06/24/17 Roflumilast [Daliresp] 500 mcg PO DAILY #30 tablet 06/24/17
[2017-06-24 14:32] LABS: LPM/O2% 3
[2017-06-24 15:17] VITALS: BP 109/58; PULSE 87; TEMP 98.2
[2017-06-25] MEDS ORDERED: POTASSIUM CHLORIDE TABS 20 MEQ TABLET.ER (FP) PO SCH (10:00)
== END 2017-06-24 16:14 | disposition home or self-care (01) | DRG 190 ==
LOC: JER 01:49 → JERBED 05:46 → J4W 23:16
PROVIDERS: ADMIT Specialist; ATTEND Specialist
PROC: 5A09557 Assistance with Respiratory Ventilation, Greater than 96 Consecutive Hours, Continuous Positive Airway Pressure (ICD-10-PCS; principal; 2017-06-21)
DX: J44.1 Chronic obstructive pulmonary disease with (acute) exacerbation (principal); J96.21 Acute and chronic respiratory failure with hypoxia; I50.33 Acute on chronic diastolic (congestive) heart failure; J96.22 Acute and chronic respiratory failure with hypercapnia; E87.2 Acidosis; I11.0 Hypertensive heart disease with heart failure; E03.9 Hypothyroidism, unspecified; J20.9 Acute bronchitis, unspecified; E78.2 Mixed hyperlipidemia
CPT/HCPCS: 36415; 36600; 70450-TC; 71010-TC; 73610-TC-RT; 73630-TC-RT; 80053; 81003; 81015; 82375; 82550; 82803; 83050; 83735; 83880; 84443; 84484; 85025; 85610; 93005; 93010; 94640; 94660; 99285-25; J1644

== ENCOUNTER 2017-08-31 02:30 | Inpatient (IN) | payer OTHER ==
[2017-08-31 02:46] VITALS: BMI 34.9
--- NOTE | 2017-08-31 02:57 | PDOC ---
History of Present Illness - General Chief Complaint: Injury Stated Complaint: FALL History Source: Patient Exam Limitations: Language Barrier - History of Present Illness Initial Comments: 08/31/17 02:54 Female with history of COPD and emphysema, h/o ICU admissions and intubations on home 4 L continuously, pneumonia CHF, HTN, hypothyroidism, chronic low back pain, c/s x1, complaining of right foot/ankle pain since [employer]. Patient states she got up to go to the bathroom and stepped off bed, got her foot caught in the tubing for her oxygen, tripped and fell rolling her ankle. PMD: Dr. Navarro PMHX: as above PSOCHX: past smoker stopped years ago, lives with family at home, on home O2, no home services. Denis [phone] Nikia [phone] ALL: PCN GENERAL/CONSTITUTIONAL: [No fever or chills. No weakness. No weight change.] HEAD, EYES, EARS, NOSE AND THROAT: [No change in vision. No ear pain or discharge. No sore throat.] CARDIOVASCULAR: [No chest pain or shortness of breath.] RESPIRATORY: (+) cough, wheezing, (-)hemoptysis, (+) sob.] GASTROINTESTINAL: [No nausea, vomiting, diarrhea or constipation. No rectal bleeding.] GENITOURINARY: [No dysuria, frequency, or change in urination.] MUSCULOSKELETAL: [(+)joint or muscle swelling or pain. No neck (+) back pain.] SKIN AND BREASTS: [No rash or easy bruising.] NEUROLOGIC: [No headache, vertigo, loss of consciousness, or loss of sensation.] PSYCHIATRIC: (+) depression or anxiety.] ENDOCRINE: [No increased thirst. No abnormal weight change.] HEMATOLOGIC/LYMPHATIC: [No anemia, easy bleeding, or history of blood clots.] ALLERGIC/IMMUNOLOGIC: [No hives or skin allergy. No latex allergy.] GENERAL: [The patient is awake, alert, and fully oriented, in no acute distress. ] HEAD: [Normal with no signs of trauma.] EYES: [Pupils equal, round and reactive to light, extraocular movements intact, sclera anicteric, conjunctiva clear.] ENT: [Ears normal, nares patent, oropharynx clear without exudates. Moist mucous membranes.] NECK: [Normal range of motion, supple without lymphadenopathy, JVD, or masses.] LUNGS: (+) wheezes b/l, and no crackles.] HEART: [Regular rate and rhythm, normal S1 and S2 without murmur, rub.] ABDOMEN: [Soft, nontender, normoactive bowel sounds. No guarding, no rebound. No masses.] EXTREMITIES: (+) Decreased range of motion, (+) swelling (+) ecchymosis, tenderness to the right ankle and foot. pedal pulses intact.] NEUROLOGICAL: [Cranial nerves II through XII grossly intact. Normal speech, normal gait.] PSYCH: [Normal mood, normal affect.] SKIN: [Warm, Dry, normal turgor, no rashes or lesions noted.] Past History - Past Medical History Allergies/Adverse Reactions: Allergies Allergy/AdvReac Type Severity Reaction Status Date / Time Penicillins Allergy Severe Difficulty Verified 08/31/17 02:33 Breathing Home Medications: Ambulatory Orders Fenofibrate [Lofibra] 160 mg PO DAILY 10/13/15 Albuterol 0.083% Nebulizer Colette [Ventolin 0.083% Nebulizer Soln -] 1 neb NEB Q4H #0 tab 06/24/17 Albuterol Sulfate Inhaler - [Ventolin HFA Inhaler -] 2 inh PO Q6H PRN #0 inh Aspirin [ASA -] 81 mg PO DAILY #0 tab 06/24/17 Furosemide [Lasix -] 40 mg PO DAILY #0 tab 06/24/17 Levothyroxine [Synthroid -] 100 mcg PO DAILY@0700 tablet 06/24/17 Losartan Potassium [Cozaar -] 25 mg PO DAILY #30 tablet 06/24/17 Montelukast Na [Singulair -] 10 mg PO HS #0 tab 06/24/17 Prednisone 5 mg PO DAILY #30 tab 06/24/17 Roflumilast [Daliresp] 500 mcg PO DAILY #30 tablet 06/24/17 Azithromycin [Zithromax Tri-Denis] 500 mg PO ASDIR 08/31/17 Escitalopram Oxalate [Lexapro -] 10 mg PO DAILY 08/31/17 Potassium Chloride [K-Dur -] 10 meq PO DAILY 08/31/17 Ranitidine HCl [Zantac] 150 mg PO DAILY 08/31/17 COPD: Yes HTN: Yes Thyroid Disease: Yes - Immunization History Immunization Up to Date: Yes - Suicide/Smoking/Psychosocial Hx Smoking History: Former smoker Have you smoked in the past 12 months: No If you are a former smoker, when did you quit?: YEARS Information on smoking cessation initiated: No Hx Alcohol Use: No Drug/Substance Use Hx: No Substance Use Type: None *Physical Exam - Vital Signs Last Vital Signs Temp Pulse Resp BP Pulse Ox 98.2 F 95 H 20 126/80 94 L 08/31/17 02:33 08/31/17 02:33 08/31/17 02:33 08/31/17 02:33 08/31/17 02:33 Procedures - Splinting Splint Location: Right: Ankle Pre-Proc Neuro Vasc Exam: normal Hand-Made Type: orthoglass Splint Type: Yes: Sugar Tong, Posterior Post-Proc Neuro Vasc Exam: normal River Bandage: yes Sling: No Complications: No Post splint xray: No Good repositioning: Yes ED Treatment Course - RADIOLOGY Radiology Studies Ordered: Category Date Time Status ANKLE & FOOT-RIGHT* [RAD] Stat Radiology 08/31/17 02:47 Ordered Medical Decision Making - Medical Decision Making 08/31/17 02:58 Female with history of COPD and emphysema, h/o ICU admissions and intubations on home 4 L continuously, pneumonia CHF, HTN, hypothyroidism, chronic low back pain, c/s x1, complaining of right foot/ankle pain since [employer]. r/o fx xray ankle and foot. reviewed xray FX b/l fx right ankle Posterior splint applied. Patient has ambulatory dysfunction and occ used cane and walker. She is at home for hour and will most likely be non weight bearing, by herself and will need some assistance at home. Will discussed with pmd about possible short term placement with rehab. Patient wheezing given neb treatment c/o pain given Motrin 600mg po 08/31/17 06:[address] Smith will admit. Request and Dr. Yates orthopedic surgery, consult sent. 08/31/17 06:35 *DC/Admit/Observation/Transfer Diagnosis at time of Disposition: Bimalleolar ankle fracture Qualifiers: Encounter type: initial encounter Fracture type: closed Laterality: right Qualified Code(s): S82.841A - Displaced bimalleolar fracture of right lower leg , initial encounter for closed fracture - Discharge Dispostion Admit: Yes - Referrals Referrals: Laura Navarro MD [Primary Care Provider] - - Patient Instructions - Post Discharge Activity Forms/Work/School Notes: Parent(s) Back to Work Note
[2017-08-31] MEDS ORDERED: ALBUTEROL SO4 2.5/IPRATROPIUM 0.5 INH SOL 3 ML VIAL.NEB. NEB ONE (04:15)
[2017-08-31] MEDS ORDERED: IBUPROFEN 600 MG TABLET (FP) PO ONE ×2 (04:58→05:01)
[2017-08-31 06:57] LABS: HEMATOCRIT 32.6 % (32.4-45.2); HEMOGLOBIN 10.5 GM/dL (10.7-15.3); MCH 31.6 pg (25.7-33.7); MCHC 32.3 g/dl (32.0-36.0); MEAN CELL VOLUME 97.8 fl (80-96); MEAN PLT VOLUME 7.9 fl (7.5-11.1); PLATELET COUNT 197 K/MM3 (134-434); RBC 3.33 M/mm3 (3.60-5.2); RDW 13.3 % (11.6-15.6); WHITE BLOOD COUNT 7.7 K/mm3 (4.0-10.0)
[2017-08-31 07:15] LABS: BLOOD UREA NITROGEN 10 mg/dL (7-18); CALCIUM 8.5 mg/dL (8.5-10.1); CHLORIDE 91 mmol/L (98-107); CREATININE 0.6 mg/dL (0.55-1.02); GLUCOSE,RANDOM 103 mg/dL (74-106); POTASSIUM 4.8 mmol/L (3.5-5.1); SODIUM 145 mmol/L (136-145)
[2017-08-31 09:22] LABS: ANION GAP 4 (8-16); CO2 50 mmol/L (21-32)
--- NOTE | 2017-08-31 10:48 | CON.ORTH ---
Consult Reason for Consultation:: right ankle fx - Past Medical History Cardio/Vascular: Yes: CHF, HTN Pulmonary: Yes: COPD, O2 Dependent ...LMP: 06/03/14 Infectious Disease: Yes: Other (pneumonia) Musculoskeletal: Yes: Chronic low back pain Endocrine: Yes: Hypothyroidism - Alcohol/Substance Use Hx Alcohol Use: No History of Substance Use: reports: None - Smoking History Smoking history: Former smoker Have you smoked in the past 12 months: No If you are a former smoker, when did you quit?: YEARS - Social History ADL: Family Assistance History of Recent Travel: No Home Medications - Allergies Allergies/Adverse Reactions: Allergies Allergy/AdvReac Type Severity Reaction Status Date / Time Penicillins Allergy Severe Difficulty Verified 08/31/17 02:33 Breathing - Home Medications Home Medications: Ambulatory Orders Fenofibrate [Lofibra] 160 mg PO DAILY 10/13/15 Albuterol 0.083% Nebulizer Colette [Ventolin 0.083% Nebulizer Soln -] 1 neb NEB Q4H #0 tab 06/24/17 Albuterol Sulfate Inhaler - [Ventolin HFA Inhaler -] 2 inh PO Q6H PRN #0 inh Aspirin [ASA -] 81 mg PO DAILY #0 tab 06/24/17 Furosemide [Lasix -] 40 mg PO DAILY #0 tab 06/24/17 Levothyroxine [Synthroid -] 100 mcg PO DAILY@0700 tablet 06/24/17 Losartan Potassium [Cozaar -] 25 mg PO DAILY #30 tablet 06/24/17 Montelukast Na [Singulair -] 10 mg PO HS #0 tab 06/24/17 Prednisone 5 mg PO DAILY #30 tab 06/24/17 Roflumilast [Daliresp] 500 mcg PO DAILY #30 tablet 06/24/17 Azithromycin [Zithromax Tri-Denis] 500 mg PO ASDIR 08/31/17 Escitalopram Oxalate [Lexapro -] 10 mg PO DAILY 08/31/17 Potassium Chloride [K-Dur -] 10 meq PO DAILY 08/31/17 Ranitidine HCl [Zantac] 150 mg PO DAILY 08/31/17 Physical Exam for Ortho Vital Signs: Vital Signs Temperature 98.2 F 08/31/17 02:33 Pulse Rate 95 H 08/31/17 02:33 Respiratory Rate 20 08/31/17 02:33 Blood Pressure 126/80 08/31/17 02:33 O2 Sat by Pulse Oximetry (%) 98 08/31/17 03:35 Labs: CBC, BMP 08/31/17 06:37 08/31/17 06:37 - Lower Extremity Ankle: Yes: Right, Limited ROM, Pain, Swelling, Tenderness, Other (splint intact , nvi) Imaging - Results X-ray: Report Reviewed, Image Reviewed Assessment/Plan 57 yo female with history of COPD and emphysema, h/o ICU admissions and intubations on home 4 L continuously, pneumonia CHF, HTN, hypothyroidism, chronic low back pain, c/s x1, complaining of right foot/ankle pain since [employer]. Patient states she got up to go to the bathroom and stepped off bed, got her foot caught in the tubing for her oxygen, tripped and fell rolling her ankle. a/p right ankle heather fx- ? acute/chronic maintain splint NWB- will need walker/rolling scooter PT eval strict elevation repeat xrays in 7-10 days will need snf d/w Dr. Yates
[2017-08-31] MEDS ORDERED: ACETAMINOPHEN 325 MG TABLET (FP) PO PRN (12:20)
--- NOTE | 2017-08-31 12:24 | HP ---
Admitting History and Physical - Primary Care Physician PCP: Tavo Taylor - Admission Chief Complaint: ankle pain after fall History of Present Illness: Pt roll of her bed this AM and fell to the floor; she developed right ankle pain and couldn't walk on it. Pt camento ER were was noticed to have bimalleolar right ankle frracture. Pt also with worsening cough and increased sputum, with change in color (yellow now) since yesterday; pt took Azithromycin (500 mg) this AM at home. History Source: Patient - Past Medical History Cardiovascular: Yes: CHF, HTN Pulmonary: Yes: COPD, O2 Dependent ...LMP: 06/03/14 Infectious Disease: Yes: Other (pneumonia) Musculoskeletal: Yes: Chronic low back pain Endocrine: Yes: Hypothyroidism - Smoking History Smoking history: Former smoker Have you smoked in the past 12 months: No If you are a former smoker, when did you quit?: YEARS - Alcohol/Substance Use Hx Alcohol Use: No History of Substance Use: reports: None - Social History ADL: Family Assistance History of Recent Travel: No Home Medications - Allergies Allergies/Adverse Reactions: Allergies Allergy/AdvReac Type Severity Reaction Status Date / Time Penicillins Allergy Severe Difficulty Verified 08/31/17 02:33 Breathing - Home Medications Home Medications: Ambulatory Orders Fenofibrate [Lofibra] 160 mg PO DAILY 10/13/15 Albuterol 0.083% Nebulizer Colette [Ventolin 0.083% Nebulizer Soln -] 1 neb NEB Q4H #0 tab 06/24/17 Albuterol Sulfate Inhaler - [Ventolin HFA Inhaler -] 2 inh PO Q6H PRN #0 inh Furosemide [Lasix -] 40 mg PO DAILY #0 tab 06/24/17 Levothyroxine [Synthroid -] 100 mcg PO DAILY@0700 tablet 06/24/17 Losartan Potassium [Cozaar -] 25 mg PO DAILY #30 tablet 06/24/17 Montelukast Na [Singulair -] 10 mg PO HS #0 tab 06/24/17 Prednisone 5 mg PO DAILY #30 tab 06/24/17 Roflumilast [Daliresp] 500 mcg PO DAILY #30 tablet 06/24/17 Escitalopram Oxalate [Lexapro -] 10 mg PO DAILY 08/31/17 Potassium Chloride [K-Dur -] 10 meq PO DAILY 08/31/17 Review of Systems - Review of Systems Constitutional: denies: Chills, Fever Eyes: denies: Double Vision, Recent Change in Vision HENT: denies: Ear Discharge, Nasal Congestion, Throat Pain Neck: denies: Decreased ROM, Pain on Movement Cardiovascular: reports: Palpitations. denies: Chest Pain, Edema Respiratory: reports: Cough, Wheezing Gastrointestinal: denies: Abdominal Pain, Diarrhea, Nausea, Vomiting Genitourinary: denies: Burning, Dysuria Musculoskeletal: denies: Back Pain, Muscle Pain Integumentary: denies: Bruising, Rash Neurological: denies: Change in LOC, Change in Speech, Numbness, Tremors Endocrine: denies: Excessive Sweating, Intolerance to Cold Hematology/Lymphatic: denies: Easily Bruised, Excessive Bleeding Psychiatric: denies: Anxiety, Depression Physical Examination Vital Signs: Vital Signs Temperature 98.2 F 08/31/17 02:33 Pulse Rate 90 08/31/17 10:33 Respiratory Rate 18 08/31/17 10:33 Blood Pressure 100/56 08/31/17 10:33 O2 Sat by Pulse Oximetry (%) 95 08/31/17 10:33 Constitutional: Yes: No Distress, Calm Eyes: Yes: Conjunctiva Clear, EOM Intact HENT: Yes: Normocephalic. No: Pharyngeal Erythema, Rhinnorhea Neck: Yes: Trachea Midline. No: Lymphadenopathy Cardiovascular: Yes: Regular Rate and Rhythm, S1, S2 Respiratory: Yes: Regular, Rhonchi, Wheezes Gastrointestinal: Yes: Normal Bowel Sounds, Soft. No: Tenderness ...Rectal Exam: Yes: Deferred Renal/: No: CVA Tenderness - Left, CVA Tenderness - Right Breast(s): Yes: Other (deffered) Musculoskeletal: Yes: Back Pain. No: Joint Stiffness, Joint Swelling Extremities: Yes: Other (right leg with splint). No: Cold, Cool Edema: No (left leg) Integumentary: No: Erythema, Rash Neurological: Yes: Alert, Oriented, Other (motor and sensory gross;y intact exept morot in right lower leg (is reduced)) Psychiatric: Yes: Alert, Oriented Labs: CBC, BMP 08/31/17 06:37 08/31/17 06:37 Imaging - Results X-ray: Image Reviewed Problem List - Problems (1) Bimalleolar ankle fracture Code(s): S82.843A - DISPLACED BIMALLEOLAR FRACTURE OF UNSP LOWER LEG, INIT Qualifiers: Encounter type: initial encounter Fracture type: closed Laterality: right Qualified Code(s): S82.841A - Displaced bimalleolar fracture of right lower leg, initial encounter for closed fracture (2) Acute on chronic respiratory failure with hypoxia and hypercapnia Code(s): J96.21 - ACUTE AND CHRONIC RESPIRATORY FAILURE WITH HYPOXIA; J96.22 - ACUTE AND CHRONIC RESPIRATORY FAILURE WITH HYPERCAPNIA (3) Fall Code(s): W19.XXXA - UNSPECIFIED FALL, INITIAL ENCOUNTER Qualifiers: Encounter type: initial encounter Qualified Code(s): W19.XXXA - Unspecified fall, initial encounter (4) Hypertension Code(s): I10 - ESSENTIAL (PRIMARY) HYPERTENSION Assessment/Plan Ortho consult Pain control Start IV steroids CXR Pulmonary consult AM labs
[2017-08-31] MEDS: ROFLUMILAST 500 MCG TABLET PO SCH (13:28)
[2017-08-31] MEDS: ESCITALOPRAM OXALATE 10 MG TABLET (FP) PO SCH (13:28)
[2017-08-31] MEDS: ALBUTEROL SO4 0.083% IH SOL 2.5 MG/3 ML VIAL.NEB. NEB SCH ×2 (14:01→18:08)
[2017-08-31] MEDS ORDERED: ALBUTEROL SO4 0.083% IH SOL 2.5 MG/3 ML VIAL.NEB. NEB ONE (14:02)
[2017-08-31] MEDS ORDERED: methylPREDNISolone NA SUCC 40 MG/1 ML VIAL IVPUSH ONE (15:23)
[2017-08-31] MEDS ORDERED: methylPREDNISolone NA SUCC 125 MG/2 ML VIAL ONE (15:29)
[2017-08-31] MEDS ORDERED: methylPREDNISolone NA SUCC 125 MG/2 ML VIAL IVPUSH ONE (16:00)
--- NOTE | 2017-08-31 16:09 | PN ---
Progress Note (short form) - Note Progress Note: PULMONARY CONSULTATION DICTATED 08/31/17 IMP ACUTE ON CHRONIC HYPOXEMIC/HYPERCAPNEIC RESPIRATORY FAILURE ADVANCE COPD O2 DEPENDENT R ANKLE FX S/P MECHANICAL FALL CHF HYPOTHYROID H/O PNEUMONIA PLAN IV STEROIDS INHALED BRIONCHODILATORS O2 BIPAP AT NIGHT AND PRN ANALGESICS F/U CHEST X-RAY DR MEDEIROS Problem List - Problems (1) Bimalleolar ankle fracture Code(s): S82.843A - DISPLACED BIMALLEOLAR FRACTURE OF UNSP LOWER LEG, INIT Qualifiers: Encounter type: initial encounter Fracture type: closed Laterality: right Qualified Code(s): S82.841A - Displaced bimalleolar fracture of right lower leg, initial encounter for closed fracture (2) Acute and chronic respiratory failure with hypoxia Code(s): J96.21 - ACUTE AND CHRONIC RESPIRATORY FAILURE WITH HYPOXIA (3) Acute on chronic respiratory failure with hypoxia and hypercapnia Code(s): J96.21 - ACUTE AND CHRONIC RESPIRATORY FAILURE WITH HYPOXIA; J96.22 - ACUTE AND CHRONIC RESPIRATORY FAILURE WITH HYPERCAPNIA (4) CHF (congestive heart failure) Code(s): I50.9 - HEART FAILURE, UNSPECIFIED (5) COPD exacerbation Code(s): J44.1 - CHRONIC OBSTRUCTIVE PULMONARY DISEASE W (ACUTE) EXACERBATION (6) Fall Code(s): W19.XXXA - UNSPECIFIED FALL, INITIAL ENCOUNTER Qualifiers: Encounter type: initial encounter Qualified Code(s): W19.XXXA - Unspecified fall, initial encounter (7) Hypothyroidism Code(s): E03.9 - HYPOTHYROIDISM, UNSPECIFIED Qualifiers: Hypothyroidism type: unspecified Qualified Code(s): E03.9 - Hypothyroidism , unspecified
--- NOTE | 2017-08-31 19:18 | CONS ---
PULMONARY CONSULTATION DATE OF CONSULTATION: 08/31/2017 REFERRING PHYSICIAN: Tavo Taylor MD HISTORY OF PRESENT ILLNESS: The patient is a 57-year-old white female known to me from previous hospitalization as well as office followup with a past medical history of advanced COPD with chronic hypoxic respiratory failure on home O2 as well as BiPAP, history of CHF, hypertension, pneumonia, hypothyroidism, chronic back pain, who was admitted to [facility] status post fall, sustaining a right ankle fracture. Patient states for the past couple days she has been having cough and chest congestion. States that the cough is productive of thick white sputum. Denies any fevers, chills. She does complain of increasing shortness of breath as well as wheezing. Apparently, this morning when getting out of bed, she lost her footing and fell on the floor. She got and tripped again, rolling on her ankle. At which time, she went to [facility] ER. In the ER, she had an x-ray performed which revealed evidence of a medial malleolar and distal fibular fracture. She was evaluated by GRACIE Loco, Orthopedics, and placed in a soft cast. Patient was also started on supplemental O2 and steroids while in the emergency room. PAST MEDICAL HISTORY: Again includes advanced COPD with chronic hypercapnic and hypoxemic respiratory failure on supplemental O2 as well as nocturnal BiPAP, CHF, pneumonia, hypertension, hypothyroidism, chronic back pain, and obstructive sleep apnea. SOCIAL HISTORY: Smoking: Quit a few years ago. No occupational exposures. CURRENT MEDICATIONS: Include Tylenol, Cozaar, Lexapro, albuterol, Trilipix, Singulair, Lasix, Roxicodone, K-Dur, Daliresp, and Synthroid. REVIEW OF SYSTEMS: Positive shortness of breath, positive cough, positive wheezing. No chest pain. No palpitations. No fever. No chills. No hemoptysis. No abdominal pain. Positive right lower extremity pain secondary to ankle fracture. PHYSICAL EXAMINATION: General: The patient is a well-developed, well-nourished female, awake, alert, mildly dyspneic but in no acute distress. Vital Signs: She is currently afebrile. Blood pressure is 114/56, respiratory rate is 18, O2 saturation is 90% on 3 L nasal cannula. HEENT: Exam is normocephalic, atraumatic. Neck: Supple. Heart: Regular. S1, S2. Chest: Diffuse bilateral expiratory and inspiratory wheezes. Abdomen: Soft. Bowel sounds positive. Extremities: Right lower extremity is in a soft cast to the knee. LABORATORY DATA: WBC is 7.7, hemoglobin 10.5, hematocrit 32.6 with platelet count of 97.8. Chemistries: BUN 10, creatinine 0.6. Chest x-ray: No definitive infiltrates, increased markings bilaterally. IMPRESSION: 1. Onewm-pe-enqbxxy hypercapnic, hypoxemic respiratory failure secondary to chronic obstructive pulmonary disease exacerbation. 2. Status post mechanical fall with right ankle fracture. 3. Hypertension. 4. History of congestive heart failure. 5. History of pneumonia. 6. Hypothyroidism. PLAN: IV steroids, inhaled bronchodilators, supplemental O2, BiPAP at night as well as p.r.n., analgesics, followup as per Orthopedics, as well as antibiotics. CARLOS MANUEL MEDEIROS M.D. [id number]/[id number]
[2017-08-31] MEDS: MONTELUKAST NA 10 MG TABLET PO SCH (21:22)
[2017-08-31] MEDS: oxyCODONE HCL 5 MG TABLET PO PRN (21:58)
[2017-08-31] MEDS: ACETAMINOPHEN 325 MG TABLET (FP) PO PRN (21:59)
[2017-09-01] MEDS: methylPREDNISolone NA SUCC 40 MG/1 ML VIAL IVPUSH SCH ×5 (02:27→21:31)
[2017-09-01] MEDS: LEVOTHYROXINE NA 100 MCG TABLET (FP) PO SCH (06:05)
[2017-09-01 08:26] LABS: HEMATOCRIT 35.6 % (32.4-45.2); HEMOGLOBIN 11.5 GM/dL (10.7-15.3); MCH 31.3 pg (25.7-33.7); MCHC 32.4 g/dl (32.0-36.0); MEAN CELL VOLUME 96.5 fl (80-96); MEAN PLT VOLUME 7.6 fl (7.5-11.1); PLATELET COUNT 223 K/MM3 (134-434); RBC 3.69 M/mm3 (3.60-5.2); RDW 13.1 % (11.6-15.6); WHITE BLOOD COUNT 8.6 K/mm3 (4.0-10.0)
[2017-09-01 08:51] LABS: ALBUMIN 3.2 g/dl (3.4-5.0); ANION GAP 4 (8-16); BLOOD UREA NITROGEN 11 mg/dL (7-18); CALCIUM 8.7 mg/dL (8.5-10.1); CHLORIDE 93 mmol/L (98-107); CO2 44 mmol/L (21-32); GLUCOSE,RANDOM 159 mg/dL (74-106); POTASSIUM 4.2 mmol/L (3.5-5.1); SODIUM 141 mmol/L (136-145)
[2017-09-01 08:56] LABS: ALK PHOS 70 U/L (45-117); BILIRUBIN,TOTAL 0.5 mg/dL (0.2-1.0); CREATININE 0.5 mg/dL (0.55-1.02); SGOT/AST 11 U/L (15-37); SGPT/ALT 18 U/L (12-78); TOT PROT 6.5 g/dl (6.4-8.2)
[2017-09-01] MEDS: ALBUTEROL SO4 0.083% IH SOL 2.5 MG/3 ML VIAL.NEB. NEB SCH ×2 (09:30→10:11)
[2017-09-01] MEDS ORDERED: PT OWN MED DRAWER 7, Y5N ONE ×3 (09:45→21:27)
[2017-09-01] MEDS: LOSARTAN POTASSIUM 25 MG TABLET PO SCH (09:50)
[2017-09-01] MEDS: POTASSIUM CHLORIDE TABS 10 MEQ TABLET.ER (FP) PO SCH (09:50)
[2017-09-01] MEDS: ROFLUMILAST 500 MCG TABLET PO SCH (09:50)
[2017-09-01] MEDS: ESCITALOPRAM OXALATE 10 MG TABLET (FP) PO SCH (09:50)
[2017-09-01] MEDS: FUROSEMIDE 40 MG TABLET (FP) PO SCH (09:51)
[2017-09-01] MEDS: FENOFIBRIC ACID 135 MG CAP PO SCH (09:51)
--- NOTE | 2017-09-01 10:04 | PN ---
Progress Note, Physician History of Present Illness: Pt's breathing is better, coughs and is complaining that is hard to expectorate. Pt w/o SOB at rest, CP, palp, abd pain. - Current Medication List Current Medications: Active Medications Acetaminophen (Tylenol -) 650 mg PO Q6H PRN PRN Reason: PAIN LEVEL 1-5 Last Admin: 09/01/17 08:37 Dose: 650 mg Acetaminophen (Tylenol -) 325 mg PO Q6H PRN PRN Reason: 6-10 Last Admin: 08/31/17 21:59 Dose: 325 mg Albuterol Sulfate (Ventolin 0.083% Nebulizer Soln -) 1 amp NEB Q4HWA [facility] Last Admin: 08/31/17 18:08 Dose: 1 amp Escitalopram Oxalate (Lexapro -) 10 mg PO DAILY [facility] Last Admin: 09/01/17 09:50 Dose: 10 mg Fenofibric Acid (Trilipix -) 135 mg PO DAILY [facility] Last Admin: 09/01/17 09:51 Dose: 135 mg Furosemide (Lasix -) 40 mg PO DAILY [facility] Last Admin: 09/01/17 09:51 Dose: 40 mg Levothyroxine Sodium (Synthroid -) 100 mcg PO DAILY@0700 [facility] Last Admin: 09/01/17 06:05 Dose: 100 mcg Losartan Potassium (Cozaar -) 25 mg PO DAILY [facility] Last Admin: 09/01/17 09:50 Dose: 25 mg Methylprednisolone Sodium Succinate (Solu-Medrol -) 40 mg IVPUSH Q6H-IV [facility] Last Admin: 09/01/17 08:36 Dose: 40 mg Montelukast Sodium (Singulair -) 10 mg PO HS [facility] Last Admin: 08/31/17 21:22 Dose: 10 mg Oxycodone HCl (Roxicodone -) 5 mg PO Q6H PRN PRN Reason: PAIN 6-10 Last Admin: 08/31/17 21:58 Dose: 5 mg Potassium Chloride (K-Dur -) 10 meq PO DAILY [facility] Last Admin: 09/01/17 09:50 Dose: 10 meq Roflumilast (Daliresp -) 500 mcg PO DAILY [facility] Last Admin: 09/01/17 09:50 Dose: 500 mcg - Objective Vital Signs: Vital Signs Temperature 98.5 F 09/01/17 06:00 Pulse Rate 88 03/06/18 06:00 Respiratory Rate 20 09/01/17 06:00 Blood Pressure 146/83 09/01/17 06:00 O2 Sat by Pulse Oximetry (%) 96 09/01/17 06:00 Constitutional: Yes: No Distress, Calm Cardiovascular: Yes: Regular Rate and Rhythm, S1, S2 Respiratory: Yes: Regular, Rhonchi, Wheezes (scatered, minimal, expiratory) Gastrointestinal: Yes: Normal Bowel Sounds, Soft. No: Tenderness Extremities: Yes: Other (right leg in immobilizer) Edema: No Neurological: Yes: Alert, Oriented Labs: CBC, BMP 09/01/17 07:30 09/01/17 07:30 Problem List - Problems (1) Bimalleolar ankle fracture Code(s): S82.843A - DISPLACED BIMALLEOLAR FRACTURE OF UNSP LOWER LEG, INIT Qualifiers: Encounter type: initial encounter Fracture type: closed Laterality: right Qualified Code(s): S82.841A - Displaced bimalleolar fracture of right lower leg, initial encounter for closed fracture (2) Acute on chronic respiratory failure with hypoxia and hypercapnia Code(s): J96.21 - ACUTE AND CHRONIC RESPIRATORY FAILURE WITH HYPOXIA; J96.22 - ACUTE AND CHRONIC RESPIRATORY FAILURE WITH HYPERCAPNIA (3) Fall Code(s): W19.XXXA - UNSPECIFIED FALL, INITIAL ENCOUNTER Qualifiers: Encounter type: initial encounter Qualified Code(s): W19.XXXA - Unspecified fall, initial encounter (4) Hypertension Code(s): I10 - ESSENTIAL (PRIMARY) HYPERTENSION Assessment/Plan Ortho and Pulmonary consults appreciated. Pain control IV steroids fabian per Pulmonary. Add Robitussin DM diabetic AM labs Case was d/w pt's nurse
--- NOTE | 2017-09-01 11:54 | PN ---
Progress Note (short form) - Note Progress Note: PULMONARY Breathing slightly improved but still dyspneic with exertion, chest tightness. Last Vital Signs Temp Pulse Resp BP Pulse Ox 98 F 94 H 22 142/77 95 09/01/17 09:00 09/01/17 09:00 09/01/17 09:00 09/01/17 09:00 09/01/17 09:00 Gen: NAD in chair HEart: RRR Lung: poor air movement, scattered wheezes Abd: soft, nontender Ext: no edema CBC, BMP 09/01/17 07:30 09/01/17 07:30 Active Medications Acetaminophen (Tylenol -) 650 mg PO Q6H PRN PRN Reason: PAIN LEVEL 1-5 Last Admin: 09/01/17 08:37 Dose: 650 mg Acetaminophen (Tylenol -) 325 mg PO Q6H PRN PRN Reason: 6-10 Last Admin: 08/31/17 21:59 Dose: 325 mg Albuterol Sulfate (Ventolin 0.083% Nebulizer Soln -) 1 amp NEB Q4HWA [facility] Last Admin: 09/01/17 09:30 Dose: 1 amp Escitalopram Oxalate (Lexapro -) 10 mg PO DAILY [facility] Last Admin: 09/01/17 09:50 Dose: 10 mg Fenofibric Acid (Trilipix -) 135 mg PO DAILY [facility] Last Admin: 09/01/17 09:51 Dose: 135 mg Furosemide (Lasix -) 40 mg PO DAILY [facility] Last Admin: 09/01/17 09:51 Dose: 40 mg Guaifenesin (Diabetic Tussin Dm -) 10 ml PO Q4H [facility] Stop: 09/06/17 10:59 Levothyroxine Sodium (Synthroid -) 100 mcg PO DAILY@0700 [facility] Last Admin: 09/01/17 06:05 Dose: 100 mcg Losartan Potassium (Cozaar -) 25 mg PO DAILY [facility] Last Admin: 09/01/17 09:50 Dose: 25 mg Methylprednisolone Sodium Succinate (Solu-Medrol -) 40 mg IVPUSH Q6H-IV [facility] Last Admin: 09/01/17 08:36 Dose: 40 mg Montelukast Sodium (Singulair -) 10 mg PO HS [facility] Last Admin: 08/31/17 21:22 Dose: 10 mg Oxycodone HCl (Roxicodone -) 5 mg PO Q6H PRN PRN Reason: PAIN 6-10 Last Admin: 08/31/17 21:58 Dose: 5 mg Potassium Chloride (K-Dur -) 10 meq PO DAILY [facility] Last Admin: 09/01/17 09:50 Dose: 10 meq Roflumilast (Daliresp -) 500 mcg PO DAILY [facility] Last Admin: 09/01/17 09:50 Dose: 500 mcg A/P Acute on Chronic Hypoxic and Hypercapneic Respiratory Failure Acute COPD exacerbation R Ankle Fracture s/p Fall LV Diastolic Dysfunction HTN Hyperlipidemia Hypothyroidism - continue medrol at current dose - inhaled bronchodilators standing and PRN - O2 to keep SpO2 >90% - ortho f/u - DVT prophylaxis
[2017-09-01] MEDS ORDERED: ALBUTEROL SO4 0.083% IH SOL 2.5 MG/3 ML VIAL.NEB. NEB PRN (12:25)
[2017-09-01] MEDS: guaiFENesin/D-M SUGAR-FREE/ACLHOL-FREE 118 ML BOTTLE PO SCH ×4 (12:44→22:08)
[2017-09-01] MEDS: ALBUTEROL SO4 2.5/IPRATROPIUM 0.5 INH SOL 3 ML VIAL.NEB. NEB SCH ×3 (13:00→22:22)
--- NOTE | 2017-09-01 16:58 | PN ---
Progress Note (short form) - Note Progress Note: Pt seen, In posterior splint. Doing ok. No c/o severe pain. Cannot use crutches very well. She is supposed to be NWB if possible. The more weight she puts on it the more likely it is that her nonoperative right bimalleolar ankle fracture will become an operative situation. We will follow. Repeat xrays in 7-10 days. She can be DC'd from an orthopedic pov.
[2017-09-01] MEDS: oxyCODONE HCL 5 MG TABLET PO PRN (21:29)
[2017-09-01] MEDS: MONTELUKAST NA 10 MG TABLET PO SCH (21:29)
[2017-09-01] MEDS: ACETAMINOPHEN 325 MG TABLET (FP) PO PRN (21:30)
[2017-09-02] MEDS: methylPREDNISolone NA SUCC 40 MG/1 ML VIAL IVPUSH SCH ×3 (03:03→17:00)
[2017-09-02] MEDS: guaiFENesin/D-M SUGAR-FREE/ACLHOL-FREE 118 ML BOTTLE PO SCH ×5 (03:07→18:19)
[2017-09-02] MEDS: LEVOTHYROXINE NA 100 MCG TABLET (FP) PO SCH (06:16)
[2017-09-02] MEDS ORDERED: PT OWN MED DRAWER 7, Y5N ONE ×3 (06:26→21:13)
[2017-09-02] MEDS: ALBUTEROL SO4 2.5/IPRATROPIUM 0.5 INH SOL 3 ML VIAL.NEB. NEB SCH ×4 (07:40→20:30)
[2017-09-02 08:16] LABS: HEMATOCRIT 34.7 % (32.4-45.2); HEMOGLOBIN 11.3 GM/dL (10.7-15.3); MCH 31.1 pg (25.7-33.7); MCHC 32.7 g/dl (32.0-36.0); MEAN CELL VOLUME 95.2 fl (80-96); MEAN PLT VOLUME 8.4 fl (7.5-11.1); PLATELET COUNT 248 K/MM3 (134-434); RBC 3.64 M/mm3 (3.60-5.2); RDW 13.1 % (11.6-15.6)
[2017-09-02 08:33] LABS: ANION GAP 10 (8-16); BLOOD UREA NITROGEN 16 mg/dL (7-18); CALCIUM 9.4 mg/dL (8.5-10.1); CHLORIDE 88 mmol/L (98-107); CO2 41 mmol/L (21-32); CREATININE 0.7 mg/dL (0.55-1.02); GLUCOSE,RANDOM 158 mg/dL (74-106); POTASSIUM 3.6 mmol/L (3.5-5.1); SODIUM 139 mmol/L (136-145)
[2017-09-02] MEDS: FUROSEMIDE 40 MG TABLET (FP) PO SCH ×2 (09:30→11:28)
[2017-09-02] MEDS: ESCITALOPRAM OXALATE 10 MG TABLET (FP) PO SCH (09:30)
[2017-09-02] MEDS: FENOFIBRIC ACID 135 MG CAP PO SCH (09:30)
[2017-09-02] MEDS: LOSARTAN POTASSIUM 25 MG TABLET PO SCH (09:31)
[2017-09-02] MEDS: POTASSIUM CHLORIDE TABS 10 MEQ TABLET.ER (FP) PO SCH (09:31)
[2017-09-02] MEDS: ROFLUMILAST 500 MCG TABLET PO SCH (09:31)
--- NOTE | 2017-09-02 10:46 | PN ---
Progress Note, Physician History of Present Illness: Pt's breathing is better, no coughs since last night Pt w/o SOB at rest, CP, palp, abd pain. Pt with constipation. - Current Medication List Current Medications: Active Medications Acetaminophen (Tylenol -) 650 mg PO Q6H PRN PRN Reason: PAIN LEVEL 1-5 Last Admin: 09/01/17 08:37 Dose: 650 mg Acetaminophen (Tylenol -) 325 mg PO Q6H PRN PRN Reason: 6-10 Last Admin: 09/01/17 21:30 Dose: 325 mg Albuterol Sulfate (Ventolin 0.083% Nebulizer Soln -) 1 amp NEB Q4HWA PRN PRN Reason: SHORT OF BREATH/WHEEZING Albuterol/Ipratropium (Duoneb -) 1 amp NEB RQID [facility] Last Admin: 09/02/17 07:40 Dose: 1 amp Escitalopram Oxalate (Lexapro -) 10 mg PO DAILY [facility] Last Admin: 09/02/17 09:30 Dose: 10 mg Fenofibric Acid (Trilipix -) 135 mg PO DAILY [facility] Last Admin: 09/02/17 09:30 Dose: 135 mg Furosemide (Lasix -) 40 mg PO DAILY [facility] Last Admin: 09/02/17 09:30 Dose: Not Given Guaifenesin (Diabetic Tussin Dm -) 10 ml PO Q4H [facility] Stop: 09/06/17 10:59 Last Admin: 09/02/17 06:17 Dose: Not Given Levothyroxine Sodium (Synthroid -) 100 mcg PO DAILY@0700 [facility] Last Admin: 09/02/17 06:16 Dose: 100 mcg Losartan Potassium (Cozaar -) 25 mg PO DAILY [facility] Last Admin: 09/02/17 09:31 Dose: 25 mg Methylprednisolone Sodium Succinate (Solu-Medrol -) 40 mg IVPUSH Q6H-IV [facility] Last Admin: 09/02/17 09:30 Dose: 40 mg Montelukast Sodium (Singulair -) 10 mg PO HS [facility] Last Admin: 09/01/17 21:29 Dose: 10 mg Oxycodone HCl (Roxicodone -) 5 mg PO Q6H PRN PRN Reason: PAIN 6-10 Last Admin: 09/01/17 21:29 Dose: 5 mg Potassium Chloride (K-Dur -) 10 meq PO DAILY [facility] Last Admin: 09/02/17 09:31 Dose: 10 meq Roflumilast (Daliresp -) 500 mcg PO DAILY [facility] Last Admin: 09/02/17 09:31 Dose: 500 mcg - Objective Vital Signs: Vital Signs Temperature 98.6 F 09/02/17 05:56 Pulse Rate 83 09/02/17 05:56 Respiratory Rate 20 09/02/17 05:56 Blood Pressure 139/76 09/02/17 05:56 O2 Sat by Pulse Oximetry (%) 95 09/01/17 21:00 Constitutional: Yes: No Distress, Calm Cardiovascular: Yes: Regular Rate and Rhythm, S1, S2 Respiratory: Yes: Regular, Wheezes (minimal with expiration) Gastrointestinal: Yes: Normal Bowel Sounds, Soft. No: Tenderness Extremities: Yes: Other (right ankle immobilizer) Edema: No Neurological: Yes: Alert, Oriented Labs: CBC, BMP 09/02/17 06:45 09/02/17 06:45 Problem List - Problems (1) Bimalleolar ankle fracture Code(s): S82.843A - DISPLACED BIMALLEOLAR FRACTURE OF UNSP LOWER LEG, INIT Qualifiers: Encounter type: initial encounter Fracture type: closed Laterality: right Qualified Code(s): S82.841A - Displaced bimalleolar fracture of right lower leg, initial encounter for closed fracture (2) Acute on chronic respiratory failure with hypoxia and hypercapnia Code(s): J96.21 - ACUTE AND CHRONIC RESPIRATORY FAILURE WITH HYPOXIA; J96.22 - ACUTE AND CHRONIC RESPIRATORY FAILURE WITH HYPERCAPNIA (3) Fall Code(s): W19.XXXA - UNSPECIFIED FALL, INITIAL ENCOUNTER Qualifiers: Encounter type: initial encounter Qualified Code(s): W19.XXXA - Unspecified fall, initial encounter (4) Hypertension Code(s): I10 - ESSENTIAL (PRIMARY) HYPERTENSION (5) Constipation Code(s): K59.00 - CONSTIPATION, UNSPECIFIED Assessment/Plan Ortho and Pulmonary consults appreciated. Pain control IV steroids fabian per Pulmonary. Add Robitussin DM diabetic Add Colace; encourage PO fluid intake AM labs Case was d/w pt's nurse
[2017-09-02] MEDS: DOCUSATE SODIUM 100 MG CAPSULE (FP) PO SCH ×2 (11:29→21:23)
--- NOTE | 2017-09-02 11:34 | PN ---
Progress Note (short form) - Note Progress Note: PULMONARY SPOKE WITH DR ZENDEJAS REVIEWED CHART VSS/AFEBRILE ANICTERIC CLEAR BREATH SOUNDS S1S2 BS+ SOFT S/P ANKLE FRACTURE MEDS/LABS/IMAGES/NOTES REVIEWED Acute on Chronic Hypoxic and Hypercapneic Respiratory Failure resolved Acute COPD exacerbation resolved R Ankle Fracture s/p Fall LV Diastolic Dysfunction HTN Hyperlipidemia Hypothyroidism - continue medrol at adjusted dose - inhaled bronchodilators standing and PRN - O2 to keep SpO2 >90% - ortho f/u - DVT prophylaxis - change to oral steroids with taper as outpatient in AM Parul ALEGRE MD
[2017-09-02] MEDS: ACETAMINOPHEN 325 MG TABLET (FP) PO PRN ×2 (14:33→21:22)
[2017-09-02] MEDS: oxyCODONE HCL 5 MG TABLET PO PRN ×2 (14:34→21:21)
[2017-09-02] MEDS: MONTELUKAST NA 10 MG TABLET PO SCH (21:21)
[2017-09-03] MEDS: guaiFENesin/D-M SUGAR-FREE/ACLHOL-FREE 118 ML BOTTLE PO SCH ×4 (00:07→10:21)
[2017-09-03] MEDS: methylPREDNISolone NA SUCC 40 MG/1 ML VIAL IVPUSH SCH (01:53)
[2017-09-03] MEDS: LEVOTHYROXINE NA 100 MCG TABLET (FP) PO SCH (06:16)
[2017-09-03] MEDS: ALBUTEROL SO4 2.5/IPRATROPIUM 0.5 INH SOL 3 ML VIAL.NEB. NEB SCH (08:20)
[2017-09-03 08:37] LABS: ANION GAP 7 (8-16); BLOOD UREA NITROGEN 25 mg/dL (7-18); CALCIUM 8.3 mg/dL (8.5-10.1); CHLORIDE 91 mmol/L (98-107); CO2 42 mmol/L (21-32); CREATININE 0.7 mg/dL (0.55-1.02); GLUCOSE,RANDOM 124 mg/dL (74-106); POTASSIUM 3.8 mmol/L (3.5-5.1); SODIUM 140 mmol/L (136-145)
--- NOTE | 2017-09-03 09:19 | PN ---
Progress Note (short form) - Note Progress Note: Ortho Pt seen and examined s/p right ankle fx Selected Entries 09/03/17 06:00 Temperature 98.7 F Pulse Rate 83 Respiratory 20 Rate Blood Pressure 137/80 splint intact, nvi a/p NWB elevation pain control d/c planning
[2017-09-03] MEDS ORDERED: predniSONE 20 MG TABLET (UD) PO SCH (10:00)
[2017-09-03] MEDS ORDERED: PT OWN MED DRAWER 7, Y5N ONE (10:10)
[2017-09-03] MEDS: ROFLUMILAST 500 MCG TABLET PO SCH (10:20)
[2017-09-03] MEDS: FUROSEMIDE 40 MG TABLET (FP) PO SCH (10:20)
[2017-09-03] MEDS: ESCITALOPRAM OXALATE 10 MG TABLET (FP) PO SCH (10:21)
[2017-09-03] MEDS: DOCUSATE SODIUM 100 MG CAPSULE (FP) PO SCH (10:21)
[2017-09-03] MEDS: FENOFIBRIC ACID 135 MG CAP PO SCH (10:21)
[2017-09-03] MEDS: POTASSIUM CHLORIDE TABS 10 MEQ TABLET.ER (FP) PO SCH (10:21)
[2017-09-03] MEDS: LOSARTAN POTASSIUM 25 MG TABLET PO SCH (10:21)
--- NOTE | 2017-09-03 11:26 | DS ---
Physical Examination Vital Signs: Vital Signs Temperature 98.7 F 09/03/17 06:00 Pulse Rate 83 09/03/17 06:00 Respiratory Rate 20 09/03/17 06:00 Blood Pressure 137/80 09/03/17 06:00 O2 Sat by Pulse Oximetry (%) 93 L 09/02/17 21:00 Findings/Remarks: Pt w/o wheezing, SOB, cough, palpitations, abd pain. Pt had normal BM yesterday. Constitutional: Yes: No Distress, Calm Cardiovascular: Yes: Regular Rate and Rhythm, S1, S2 Respiratory: Yes: Regular. No: Rhonchi, Wheezes Gastrointestinal: Yes: Normal Bowel Sounds, Soft. No: Tenderness Extremities: Yes: Other (right leg mmobilizer) Edema: No (of left leg) Neurological: Yes: Alert, Oriented, Other Psychiatric: Yes: Alert, Oriented Labs: CBC, BMP 09/02/17 06:45 09/03/17 06:30 Discharge Summary Reason For Visit: BIMALLEOLAR FRACTURE Current Active Problems Bimalleolar ankle fracture (Acute) Constipation (Acute) Hypertension (Acute) Procedures: Principal: XR of right ankle/ tibia. CXR Hospital Course: Pt came to ER with right ankle pain, after falling from her bed at home; in ER it was noticed to have right bimalleolar ankle fracture; pt was seen by Ortho ( Dr. Guerra & Hossein/[facility]IST) , recommended immobilizer, PT, NWB. Pt also was noticed to have wheezing, coughing, and have Acute COPD exacerbation; she was started on IV steroids, was seen by Pulmonary (Dr. Parrish/ [place]); pt's cough and wheezing improved. Pt to be DC'ed to rehab. Condition: Fair - Instructions Diet, Activity, Other Instructions: Resume diet To follow up with Ortho in 2-3 weeks Referrals: Laura Navarro MD [Primary Care Provider] - 1 Week (within a week from Rehab DC) - Home Medications Comprehensive Discharge Medication List: Ambulatory Orders
[2017-09-03 14:03] VITALS: BP 128/64; PULSE 84; TEMP 98.2
== END 2017-09-03 14:35 | DRG 562 ==
LOC: JER 02:30 → JERBED 06:31 → J6S 18:55
PROVIDERS: ADMIT Specialist; ATTEND Specialist
DX: S82.841A Displaced bimalleolar fracture of right lower leg, initial encounter for closed fracture (principal); J96.21 Acute and chronic respiratory failure with hypoxia; J96.22 Acute and chronic respiratory failure with hypercapnia; J44.1 Chronic obstructive pulmonary disease with (acute) exacerbation; W19.XXXA Unspecified fall, initial encounter; Y93.9 Activity, unspecified; Y92.092 Bedroom in other non-institutional residence as the place of occurrence of the external cause; Y99.9 Unspecified external cause status; I10 Essential (primary) hypertension; K59.00 Constipation, unspecified; E78.5 Hyperlipidemia, unspecified; E03.9 Hypothyroidism, unspecified
CPT/HCPCS: 36415; 71046-TC-FY; 73590-TC-RT-FY; 73610-TC-RT-FY; 73630-TC-RT-FY; 80048; 80053; 85027; 94640; 97116-GP; 97161-GP; 99285-25

== ENCOUNTER 2017-11-25 18:32 | Inpatient (IN) | payer OTHER ==
--- NOTE | 2017-11-25 19:08 | PDOC ---
History of Present Illness <Livia Cramer - Last Filed: 11/26/17 01:53> - General History Source: Patient Exam Limitations: No Limitations - History of Present Illness Initial Comments: 11/25/17 19:58 The patient is a 57 year old female with past medical history of COPD, HTN, pneumonia, CHF, hypothyroidism, chronic back pain, with history of intubation on home 4L continuously, and ICU admission presents to the emergency department via ems with difficulty breathing. The patient reports congestion with production of green colored sputum. The patient states she called her PCP, who called in antibiotic for her. The patient reports associated symptoms of cough with congestion, and dyspnea. The patient reports in May she suffered a fall, to which she was hospitalized for. Denies any fever, chills, nausea or vomiting. Denies any diarrhea or constipation. Denies any numbness tingling or loss of sensation. Denies any dysuria, hematuria, frequency or urgency to urinate. Allergies: Penicillins PCP: Dr. Laura Navarro MD Social history: Former smoker. Denies the use of alcohol or recreational drug. Surgical history: None reported 11/26/17 01:54 <Mihaela Menendez - Last Filed: 11/26/17 01:54> - General Chief Complaint: Shortness of Breath Stated Complaint: SOB Time Seen by Provider: 11/25/17 19:05 Past History - Past Medical History COPD: Yes HTN: Yes Thyroid Disease: Yes - Immunization History Immunization Up to Date: Yes - Suicide/Smoking/Psychosocial Hx Smoking History: Former smoker Have you smoked in the past 12 months: No If you are a former smoker, when did you quit?: YEARS Information on smoking cessation initiated: No Hx Alcohol Use: No Drug/Substance Use Hx: No Substance Use Type: None <Livia Cramer - Last Filed: 11/26/17 01:53> <Mihaela Menendez - Last Filed: 11/26/17 01:54> - Past Medical History Allergies/Adverse Reactions: Allergies Allergy/AdvReac Type Severity Reaction Status Date / Time Penicillins Allergy Severe Difficulty Verified 11/25/17 18:50 Breathing Home Medications: Ambulatory Orders Fenofibrate [Lofibra] 160 mg PO DAILY 10/13/15 Albuterol 0.083% Nebulizer Colette [Ventolin 0.083% Nebulizer Soln -] 1 neb NEB Q4H #0 tab 06/24/17 Levothyroxine [Synthroid -] 100 mcg PO DAILY@0700 tablet 06/24/17 Losartan Potassium [Cozaar -] 25 mg PO DAILY #30 tablet 06/24/17 Montelukast Na [Singulair -] 10 mg PO HS #0 tab 06/24/17 Roflumilast [Daliresp] 500 mcg PO DAILY #30 tablet 06/24/17 Escitalopram Oxalate [Lexapro -] 10 mg PO DAILY 08/31/17 Potassium Chloride [K-Dur -] 10 meq PO DAILY 08/31/17 Acetaminophen [Tylenol .Regular Strength -] 650 mg PO Q6H PRN tablet 09/03/17 Albuterol 2.5/Ipratropium 0.5 [Duoneb -] 1 amp NEB RQID amp 09/03/17 Furosemide [Lasix -] 20 mg PO DAILY 11/25/17 Levofloxacin [Levaquin] 500 mg PO DAILY 11/25/17 predniSONE [Deltasone -] 5 mg PO DAILY 11/25/17 Review of Systems - Review of Systems Able to Perform ROS?: Yes Comments:: 11/25/17 20:00 GENERAL/CONSTITUTIONAL: No fever or chills. No weakness. HEAD, EYES, EARS, NOSE AND THROAT: No change in vision. No ear pain or discharge. No sore throat. CARDIOVASCULAR: No chest pain or shortness of breath. RESPIRATORY: (+) dyspnea. Cough with congestion. Production of green sputum. No wheezing, or hemoptysis. GASTROINTESTINAL: No nausea, vomiting, diarrhea or constipation. GENITOURINARY: No dysuria, frequency, or change in urination. MUSCULOSKELETAL: No joint or muscle swelling or pain. No neck or back pain. SKIN: No rash NEUROLOGIC: No headache, vertigo, loss of consciousness, or change in strength/ sensation. ENDOCRINE: No increased thirst. No abnormal weight change. HEMATOLOGIC/LYMPHATIC: No anemia, easy bleeding, or history of blood clots. ALLERGIC/IMMUNOLOGIC: No hives or skin allergy. <Mihaela Menendez - Last Filed: 11/26/17 01:54> *Physical Exam - Vital Signs Last Vital Signs Temp Pulse Resp BP Pulse Ox 98.1 F 93 H 26 H 140/97 91 L 11/25/17 18:51 11/25/17 18:51 11/25/17 18:51 11/25/17 18:51 11/25/17 18:51 - Physical Exam Comments: GENERAL: Awake, alert, and fully oriented. +Mild resp distress. HEAD: No signs of trauma EYES: PERRLA, EOMI, sclera anicteric, conjunctiva clear ENT: Auricles normal inspection, hearing grossly normal, nares patent, oropharynx clear without exudates. Moist mucosa NECK: Normal ROM, supple, no lymphadenopathy, JVD, or masses LUNGS: Diminished breath sounds B/L with scattered wheezing. HEART: Regular rate and rhythm, normal S1 and S2, no murmurs, rubs or gallops ABDOMEN: Soft, nontender, normoactive bowel sounds. No guarding, no rebound. No masses EXTREMITIES: Normal range of motion, no edema. No clubbing or cyanosis. No cords, erythema, or tenderness NEUROLOGICAL: Cranial nerves II through XII grossly intact. Normal speech, normal gait SKIN: Warm, Dry, normal turgor, no rashes or lesions noted. <Livia Cramer - Last Filed: 11/26/17 01:53> - Vital Signs Last Vital Signs Temp Pulse Resp BP Pulse Ox 98.1 F 93 H 26 H 140/97 94 L 11/25/17 18:51 11/25/17 18:51 11/25/17 18:51 11/25/17 18:51 11/25/17 19:35 <Mihaela Menendez - Last Filed: 11/26/17 01:54> Heart Score/ECG Review - ECG Impressions Comment:: EKG read 19:12- NSR 93 bpm, no acute ST/T changes <Livia Cramer - Last Filed: 11/26/17 01:53> ED Treatment Course - LABORATORY CBC & Chemistry Diagram: 11/25/17 19:40 11/25/17 19:40 <Livia Cramer - Last Filed: 11/26/17 01:53> - LABORATORY CBC & Chemistry Diagram: 11/25/17 19:40 11/25/17 19:40 - ADDITIONAL ORDERS Additional order review: 11/25/17 19:40 RBC 3.95 MCV 96.6 H MCHC 31.5 L RDW 13.7 MPV 8.3 Neutrophils % 90.8 H Lymphocytes % 1.5 L D Monocytes % 7.5 Eosinophils % 0.0 Basophils % 0.2 D <Mihaela Menendez - Last Filed: 11/26/17 01:54> Medical Decision Making - Medical Decision Making 11/25/17 21:18 Patient took levaquin prior to arrival. Given nebs by EMS. I contacted [facility]- patient did not receive steroids en route. I will give solu-medrol presently. Pt accepted by Dr. Agustina Taylor for admission. She is comfortable on BiPAP at present. <Livia Cramer - Last Filed: 11/26/17 01:53> *DC/Admit/Observation/Transfer - Discharge Dispostion Decision to Admit order: Yes <Livia Cramer - Last Filed: 11/26/17 01:53> <Mihaela Menendez - Last Filed: 11/26/17 01:54> Diagnosis at time of Disposition: COPD exacerbation, Bronchitis - Discharge Dispostion Condition at time of disposition: Stable
[2017-11-25 19:48] LABS: BASO % 0.2 % (0-2.0); HEMATOCRIT 38.2 % (32.4-45.2); LYMPH % 1.5 % (8-40); MCH 30.4 pg (25.7-33.7); MCHC 31.5 g/dl (32.0-36.0); MEAN CELL VOLUME 96.6 fl (80-96); MEAN PLT VOLUME 8.3 fl (7.5-11.1); MONO % 7.5 % (3.8-10.2); NEUT % 90.8 % (42.8-82.8); PLATELET COUNT 188 K/MM3 (134-434); RBC 3.95 M/mm3 (3.60-5.2); RDW 13.7 % (11.6-15.6)
[2017-11-25 20:13] LABS: ALBUMIN 3.2 g/dl (3.4-5.0); ALK PHOS 92 U/L (45-117); BILIRUBIN,TOTAL 0.3 mg/dL (0.2-1.0); BLOOD UREA NITROGEN 10 mg/dL (7-18); CALCIUM 9.1 mg/dL (8.5-10.1); CHLORIDE 86 mmol/L (98-107); CREATININE 0.7 mg/dL (0.55-1.02); GLUCOSE,RANDOM 125 mg/dL (74-106); POTASSIUM 4.2 mmol/L (3.5-5.1); SGOT/AST 14 U/L (15-37); SGPT/ALT 19 U/L (12-78); SODIUM 138 mmol/L (136-145); TOT PROT 6.8 g/dl (6.4-8.2)
[2017-11-25 20:26] LABS: ANION GAP 1 (8-16); CO2 51 mmol/L (21-32)
[2017-11-25] MEDS ORDERED: methylPREDNISolone NA SUCC 125 MG/2 ML VIAL IVPB ONE (21:18)
[2017-11-25] MEDS ORDERED: methylPREDNISolone NA SUCC 125 MG/2 ML VIAL ONE (21:36)
[2017-11-25] MEDS ORDERED: ACETAMINOPHEN 325 MG TABLET (FP) PO PRN (21:54)
[2017-11-25 22:09] LABS: PLATELET ESTIMATE ADEQUATE
[2017-11-25 22:20] LABS: URINE APPEARANCE SLCLOUDY; URINE BILIRUBIN NEGATIVE (<2.0 mg/dL); URINE BLOOD NEGATIVE (NEGATIVE); URINE COLOR YELLOW; URINE GLUCOSE (UA) NEGATIVE (NEGATIVE); URINE KETONE TRACE (NEGATIVE); URINE LEUK ESTERASE TRACE (NEGATIVE); URINE NITRITE NEGATIVE (NEGATIVE); URINE PROTEIN 2+ (NEGATIVE); URINE UROBILINOGEN NEGATIVE mg/dL (0.2-1.0)
[2017-11-25] MEDS: INSULIN SLIDING SCALE (NOVOLOG) 1 VIAL SQ SCH (22:35)
[2017-11-25 22:38] LABS: EPI CELLS RARE /HPF (FEW); URINE MUCUS RARE
[2017-11-25] MEDS ORDERED: MONTELUKAST NA 10 MG TABLET ONE (22:43)
[2017-11-25] MEDS ORDERED: HEPARIN NA (PORCINE) 5,000 UNITS/ML 1ML VIAL ONE (22:44)
[2017-11-26] MEDS: HEPARIN NA (PORCINE) 5,000 UNITS/ML 1ML VIAL SQ SCH ×3 (01:00→22:08)
[2017-11-26] MEDS: MONTELUKAST NA 10 MG TABLET PO SCH ×2 (01:01→22:09)
[2017-11-26] MEDS ORDERED: methylPREDNISolone NA SUCC 40 MG/1 ML VIAL ONE ×3 (03:53→16:02)
[2017-11-26] MEDS: methylPREDNISolone NA SUCC 40 MG/1 ML VIAL IVPB SCH ×4 (03:56→21:00)
[2017-11-26] MEDS: INSULIN SLIDING SCALE (NOVOLOG) 1 VIAL SQ SCH ×4 (06:06→22:08)
[2017-11-26] MEDS: LEVOTHYROXINE NA 100 MCG TABLET (FP) PO SCH (06:07)
--- NOTE | 2017-11-26 06:49 | HP ---
Admitting History and Physical - Primary Care Physician PCP: Agustina Taylor S - Admission Chief Complaint: SOB cough History of Present Illness: The patient is a 57 year old female with past medical history of COPD, HTN, pneumonia, CHF, hypothyroidism, chronic back pain, COPD O2 dep, with history of prior intubation, on home 4L continuously, and ICU admission presents to the emergency department via ems with difficulty breathing. The patient reports congestion with production of green colored sputum. The patient states she called her PCP, who called in antibiotic for her the day before. The patient reports associated symptoms of cough with congestion, and dyspnea. The patient reports in May she suffered a fall, and R ankle fracture for which she was hospitalized. Denies any fever, chills, nausea or vomiting. Denies any diarrhea or constipation. Denies any numbness tingling or loss of sensation. Denies any dysuria, hematuria, frequency or urgency to urinate. Allergies: Penicillins PCP dr Mariana Navarro pt seen in ER, at bedside; pt on Bipap machine sleepy but arousable; ABG ordered d/w ER staff History Source: Patient Limitations to Obtaining History: No Limitations - Past Medical History Cardiovascular: Yes: CHF, HTN Pulmonary: Yes: COPD, O2 Dependent ...LMP: 06/03/14 Infectious Disease: Yes: Other (pneumonia) Musculoskeletal: Yes: Chronic low back pain Endocrine: Yes: Hypothyroidism - Smoking History Smoking history: Former smoker Have you smoked in the past 12 months: No If you are a former smoker, when did you quit?: YEARS - Alcohol/Substance Use Hx Alcohol Use: No History of Substance Use: reports: None - Social History Usual Living Arrangement: Yes: With Spouse ADL: Family Assistance History of Recent Travel: No Home Medications - Allergies Allergies/Adverse Reactions: Allergies Allergy/AdvReac Type Severity Reaction Status Date / Time Penicillins Allergy Severe Difficulty Verified 11/25/17 18:50 Breathing - Home Medications Home Medications: Ambulatory Orders Fenofibrate [Lofibra] 160 mg PO DAILY 10/13/15 Albuterol 0.083% Nebulizer Colette [Ventolin 0.083% Nebulizer Soln -] 1 neb NEB Q4H #0 tab 06/24/17 Levothyroxine [Synthroid -] 100 mcg PO DAILY@0700 tablet 06/24/17 Losartan Potassium [Cozaar -] 25 mg PO DAILY #30 tablet 06/24/17 Montelukast Na [Singulair -] 10 mg PO HS #0 tab 06/24/17 Roflumilast [Daliresp] 500 mcg PO DAILY #30 tablet 06/24/17 Escitalopram Oxalate [Lexapro -] 10 mg PO DAILY 08/31/17 Potassium Chloride [K-Dur -] 10 meq PO DAILY 08/31/17 Acetaminophen [Tylenol .Regular Strength -] 650 mg PO Q6H PRN tablet 09/03/17 Albuterol 2.5/Ipratropium 0.5 [Duoneb -] 1 amp NEB RQID amp 09/03/17 Furosemide [Lasix -] 20 mg PO DAILY 11/25/17 Levofloxacin [Levaquin] 500 mg PO DAILY 11/25/17 predniSONE [Deltasone -] 5 mg PO DAILY 11/25/17 Family Disease History - Family Disease History Family History: Unremarkable Review of Systems - Review of Systems Constitutional: reports: Lethargy, Loss of Appetite. denies: Chills, Fever Eyes: denies: Blind Spots, Blurred Vision, Double Vision HENT: denies: Difficult Swallowing, Ear Pain, Epistaxis Neck: denies: Decreased ROM, Pain on Movement, Stiffness Cardiovascular: reports: Shortness of Breath. denies: Chest Pain, Palpitations Respiratory: reports: Cough, Exercise Intolerance, SOB, SOB on Exertion, Wheezing. denies: Hemoptysis, Orthopnea, PND Gastrointestinal: denies: Abdominal Pain, Bloating, Constipation, Diarrhea, Vomiting Genitourinary: denies: Dysuria, Flank Pain Musculoskeletal: denies: Back Pain, Joint Swelling Neurological: denies: Change in LOC, Change in Speech, Confusion, Dizziness, Seizure, Syncope, Tremors, Unsteady Gait Endocrine: denies: Excessive Sweating, Flushing Hematology/Lymphatic: denies: Easily Bruised, Excessive Bleeding Psychiatric: denies: Altered Sleep Pattern, Anxiety, Paranoia, Suicidal Physical Examination Vital Signs: Vital Signs Temperature 97.7 F 11/26/17 06:05 Pulse Rate 98 H 11/26/17 06:40 Respiratory Rate 18 11/26/17 06:40 Blood Pressure 116/64 11/26/17 06:40 O2 Sat by Pulse Oximetry (%) 100 11/26/17 06:40 Constitutional: Yes: No Distress, Calm Eyes: Yes: Conjunctiva Clear HENT: Yes: Atraumatic Neck: Yes: Supple Cardiovascular: Yes: Regular Rate and Rhythm Respiratory: Yes: Cough, Diminished, On BiPap, Rales, SOB, Tachypnea, Wheezes. No: CTA Bilaterally, Dullness, Hyperresonant Gastrointestinal: Yes: Normal Bowel Sounds, Soft, Abdomen, Obese. No: Distention, Splenomegaly, Tenderness, Vomiting Renal/: No: CVA Tenderness - Left, CVA Tenderness - Right Musculoskeletal: No: Joint Stiffness, Joint Swelling Extremities: No: Cold, Cool, Cyanosis, External Rotation Edema: No Peripheral Pulses WNL: Yes Integumentary: No: Rash, Venous Stasis Changes Neurological: Yes: WNL, Alert, Oriented ...Motor Strength: WNL Psychiatric: Yes: WNL, Alert, Oriented. No: Agitated, Suicidal Ideation Labs: CBC, BMP 11/25/17 19:40 11/25/17 19:40 Imaging - Results Chest X-ray: Report Reviewed Other: Report Reviewed Assessment/Plan The patient is a 57 year old female with past medical history of COPD, HTN, pneumonia, CHF, hypothyroidism, chronic back pain, advanced COPD with history of prior intubation on O2 home 4L continuously, and ICU admission presents to the emergency department via ems with difficulty breathing. The patient reports congestion with production of green colored sputum not better wit po antibiotic for 1 day. tests meds consults reviewed and d/w pt and Allergies: Penicillins; iv levaquin iv steroids, gastric PFX and check BGM while on high doses of steroids DVT PFX nebs admit to ICU puldae ICU dr Jennings Bipap, check ABG might need intubation prognosis guarded d/w pt and ER staff d/w ICU falls PFX pt advised do not get OOB alone, call for help if needs OOB d/w pt's PCP dr Navarro t time 75 min d/w at bedside
[2017-11-26 07:43] LABS: BASO % 0.1 % (0-2.0); HEMATOCRIT 37.9 % (32.4-45.2); HEMOGLOBIN 12.1 GM/dL (10.7-15.3); LYMPH % 1.4 % (8-40); MEAN CELL VOLUME 96.9 fl (80-96); MEAN PLT VOLUME 8.9 fl (7.5-11.1); MONO % 1.6 % (3.8-10.2); NEUT % 96.9 % (42.8-82.8); PLATELET COUNT 200 K/MM3 (134-434); RBC 3.91 M/mm3 (3.60-5.2); RDW 13.5 % (11.6-15.6); WHITE BLOOD COUNT 16.4 K/mm3 (4.0-10.0)
[2017-11-26 08:05] LABS: CHLORIDE 87 mmol/L (98-107); POTASSIUM 4.6 mmol/L (3.5-5.1); SODIUM 137 mmol/L (136-145)
[2017-11-26 08:29] LABS: ALBUMIN 3.1 g/dl (3.4-5.0); ALK PHOS 100 U/L (45-117); BILIRUBIN,TOTAL 0.3 mg/dL (0.2-1.0); CALCIUM 9.5 mg/dL (8.5-10.1); CREATININE 0.6 mg/dL (0.55-1.02); GLUCOSE,RANDOM 137 mg/dL (74-106); SGOT/AST 13 U/L (15-37); SGPT/ALT 18 U/L (12-78); TOT PROT 6.9 g/dl (6.4-8.2)
[2017-11-26 08:40] LABS: BLOOD UREA NITROGEN 12 mg/dL (7-18)
[2017-11-26] MEDS ORDERED: ALBUTEROL SO4 0.083% IH SOL 2.5 MG/3 ML VIAL.NEB. NEB ONE ×2 (09:28→11:55)
[2017-11-26] MEDS: ALBUTEROL SO4 0.083% IH SOL 2.5 MG/3 ML VIAL.NEB. NEB PRN ×2 (09:45→12:04)
[2017-11-26 10:00] LABS: ANION GAP 4 (8-16); CO2 46 mmol/L (21-32)
[2017-11-26] MEDS: LOSARTAN POTASSIUM 25 MG TABLET PO SCH (10:58)
[2017-11-26] MEDS: ROFLUMILAST 500 MCG TABLET PO SCH (10:58)
[2017-11-26] MEDS: POTASSIUM CHLORIDE TABS 10 MEQ TABLET.ER (FP) PO SCH (10:59)
[2017-11-26] MEDS: FUROSEMIDE 20 MG TABLET (FP) PO SCH (10:59)
[2017-11-26] MEDS: PANTOPRAZOLE 40 MG TABLET (FP) PO SCH (11:00)
[2017-11-26] MEDS: ESCITALOPRAM OXALATE 10 MG TABLET (FP) PO SCH (11:00)
[2017-11-26 12:01] LABS: ARTERIAL BLD GAS O2 SATURATION 97.3 % (90-98.9); ARTERIAL BLOOD GAS PO2 88.4 mmHg (80-100); ARTERIAL BLOOD GAS pH 7.27 (7.35-7.45)
[2017-11-26 12:06] LABS: ALLENS TEST POSITIVE
[2017-11-26 12:09] LABS: ARTERIAL BLOOD GAS BASE EXCESS 16.9 meq/l (-2-2)
--- NOTE | 2017-11-26 14:00 | PN ---
Teaching Attending Note Name of Resident: Caitlin Mendez ATTENDING PHYSICIAN STATEMENT I saw and evaluated the patient. I reviewed the resident's note and discussed the case with the resident. I agree with the resident's findings and plan as documented. SUBJECTIVE: 57 F, advanced COPD due to former smoking history on 4 L NC, chronic hypercapneic respiratory failure with prior intubation, HTN, pneumonia, CHF, hypothyroidism, and chronic back pain. 2 days of congested cough with green sputum. No hemoptysis. Denies smoking. No travel history or sick contacts. Reports taking PO ABX from her PMD but no steroids. Severe distress in the ED requiring NIPPV. ABG: Acute on chronic hypercapnea. NIPPV settings were adjusted to increase minute ventilation. Intake & Output 11/23/17 11/24/17 11/25/17 11/26/17 23:59 23:59 23:59 23:59 Weight 168 lb Last Vital Signs Temp Pulse Resp BP Pulse Ox 97.8 F 96 H 24 123/64 97 11/26/17 09:47 11/26/17 09:47 11/26/17 09:47 11/26/17 09:47 11/26/17 13:05 Active Medications Acetaminophen (Tylenol -) 650 mg PO Q6H PRN PRN Reason: PAIN LEVEL 1-5 Albuterol Sulfate (Ventolin 0.083% Nebulizer Soln -) 1 amp NEB Q4H PRN PRN Reason: WHEEZING Last Admin: 11/26/17 12:04 Dose: 1 amp Albuterol/Ipratropium (Duoneb -) 1 amp NEB RQID HANSEL Escitalopram Oxalate (Lexapro -) 10 mg PO DAILY [facility] Last Admin: 11/26/17 11:00 Dose: 10 mg Furosemide (Lasix -) 20 mg PO DAILY [facility] Last Admin: 11/26/17 10:59 Dose: 20 mg Heparin Sodium (Porcine) (Heparin -) 5,000 unit SQ BID [facility] Last Admin: 11/26/17 10:57 Dose: 5,000 unit Levofloxacin (Levaquin 500 Mg Premixed Ivpb -) 500 mg in 100 mls @ 100 mls/hr IVPB DAILY [facility]; Protocol Last Admin: 11/26/17 11:01 Dose: 100 mls/hr Insulin Aspart (Novolog Vial Sliding Scale -) 1 vial SQ ACHS [facility]ANSEL; Protocol Last Admin: 11/26/17 11:18 Dose: 2 units Levothyroxine Sodium (Synthroid -) 100 mcg PO DAILY@0700 [facility] Last Admin: 11/26/17 06:07 Dose: 100 mcg Losartan Potassium (Cozaar -) 25 mg PO DAILY [facility] Last Admin: 11/26/17 10:58 Dose: 25 mg Methylprednisolone Sodium Succinate (Solu-Medrol -) 40 mg IVPB Q6H-IV [facility] Last Admin: 11/26/17 09:34 Dose: 40 mg Montelukast Sodium (Singulair -) 10 mg PO HS [facility] Last Admin: 11/26/17 01:01 Dose: Not Given Pantoprazole Sodium (Protonix -) 40 mg PO DAILY [facility] Last Admin: 11/26/17 11:00 Dose: 40 mg Potassium Chloride (K-Dur -) 10 meq PO DAILY [facility] Last Admin: 11/26/17 10:59 Dose: 10 meq Roflumilast (Daliresp -) 500 mcg PO DAILY [facility] Last Admin: 11/26/17 10:58 Dose: 500 mcg GENERAL: Awake, alert on NIPPV HEAD: No signs of trauma EYES: PERRLA, EOMI, sclera anicteric, conjunctiva clear ENT: (-) Lesions. Moist mucosa NECK: Normal ROM, supple, no lymphadenopathy, JVD, or masses LUNGS: Bilateral expiratory wheezing. HEART: Regular rate and rhythm, normal S1 and S2, no murmurs, rubs or gallops ABDOMEN: Soft, nontender, normoactive bowel sounds. No guarding, no rebound. No masses EXTREMITIES: Normal range of motion, no edema. No clubbing or cyanosis. No cords, erythema, or tenderness NEUROLOGICAL: Non-focal SKIN: Warm, Dry, normal turgor, no rashes or lesions noted. Laboratory Results - last 24 hr 11/25/17 11/25/17 11/25/17 19:40 19:40 21:44 WBC 19.0 H D RBC 3.95 Hgb 12.0 Hct 38.2 MCV 96.6 H MCH 30.4 MCHC 31.5 L RDW 13.7 Plt Count 188 D MPV 8.3 Neutrophils % 90.8 H Neutrophils % (Manual) 70.0 Band Neutrophils % 17.0 Lymphocytes % 1.5 L D Lymphocytes % (Manual) 3.0 L D Monocytes % 7.5 Monocytes % (Manual) 7 Eosinophils % 0.0 Eosinophils % (Manual) 0.0 D Basophils % 0.2 D Basophils % (Manual) 1.0 Nucleated RBC % 0 Metamyelocytes 2 D Platelet Estimate Adequate Basophilic Stippling Occ Stomatocytes 1+ Anticoagulation Therapy Puncture Site ABG pH ABG pCO2 at Pt Temp ABG pO2 at Pt Temp ABG HCO3 ABG O2 Sat (Measured) ABG O2 Content ABG Base Excess Everton Test O2 Delivery Device Oxygen Flow Rate Vent Mode Vent Rate Mechanical Rate Pressure Support Vent Sodium 138 Potassium 4.2 Chloride 86 L Carbon Dioxide 51 H Anion Gap 1 L BUN 10 Creatinine 0.7 Creat Clearance w eGFR > 60 POC Glucometer Random Glucose 125 H Calcium 9.1 Total Bilirubin 0.3 D AST 14 L ALT 19 Alkaline Phosphatase 92 Creatine Kinase Troponin I Total Protein 6.8 Albumin 3.2 L TSH Urine Color Yellow Urine Appearance Slcloudy Urine pH 6.0 Ur Specific Hallie 1.019 Urine Protein 2+ H Urine Glucose (UA) Negative Urine Ketones Trace H Urine Blood Negative Urine Nitrite Negative Urine Bilirubin Negative Urine Urobilinogen Negative Ur Leukocyte Esterase Trace Urine WBC (Auto) 5 Urine RBC (Auto) 1 Ur Epithelial Cells Rare Urine Mucus Rare 11/26/17 11/26/17 11/26/17 06:01 06:20 06:20 WBC 16.4 H RBC 3.91 Hgb 12.1 Hct 37.9 MCV 96.9 H MCH 31.0 MCHC 32.0 RDW 13.5 Plt Count 200 MPV 8.9 Neutrophils % 96.9 H Neutrophils % (Manual) Band Neutrophils % Lymphocytes % 1.4 L Lymphocytes % (Manual) Monocytes % 1.6 L Monocytes % (Manual) Eosinophils % 0.0 Eosinophils % (Manual) Basophils % 0.1 Basophils % (Manual) Nucleated RBC % 0 Metamyelocytes Platelet Estimate Basophilic Stippling Stomatocytes Anticoagulation Therapy Puncture Site ABG pH ABG pCO2 at Pt Temp ABG pO2 at Pt Temp ABG HCO3 ABG O2 Sat (Measured) ABG O2 Content ABG Base Excess Everton Test O2 Delivery Device Oxygen Flow Rate Vent Mode Vent Rate Mechanical Rate Pressure Support Vent Sodium 137 Potassium 4.6 Chloride 87 L Carbon Dioxide 46 H Anion Gap 4 L BUN 12 Creatinine 0.6 Creat Clearance w eGFR > 60 POC Glucometer [phone] Random Glucose 137 H Calcium 9.5 Total Bilirubin 0.3 AST 13 L ALT 18 Alkaline Phosphatase 100 Creatine Kinase 31 Troponin I < 0.02 Total Protein 6.9 Albumin 3.1 L TSH 0.12 L Urine Color Urine Appearance Urine pH Ur Specific Hallie Urine Protein Urine Glucose (UA) Urine Ketones Urine Blood Urine Nitrite Urine Bilirubin Urine Urobilinogen Ur Leukocyte Esterase Urine WBC (Auto) Urine RBC (Auto) Ur Epithelial Cells Urine Mucus 11/26/17 11/26/17 11:16 11:52 WBC RBC Hgb Hct MCV MCH MCHC RDW Plt Count MPV Neutrophils % Neutrophils % (Manual) Band Neutrophils % Lymphocytes % Lymphocytes % (Manual) Monocytes % Monocytes % (Manual) Eosinophils % Eosinophils % (Manual) Basophils % Basophils % (Manual) Nucleated RBC % Metamyelocytes Platelet Estimate Basophilic Stippling Stomatocytes Anticoagulation Therapy No Result Required. Puncture Site Right radial ABG pH 7.27 L ABG pCO2 at Pt Temp 108.0 H* D ABG pO2 at Pt Temp 88.4 ABG HCO3 48.0 H* ABG O2 Sat (Measured) 97.3 ABG O2 Content 15.8 ABG Base Excess 16.9 H* Everton Test Positive O2 Delivery Device Bipap Oxygen Flow Rate 50% Vent Mode St Vent Rate 12 Mechanical Rate No Result Required. Pressure Support Vent 10/5 Sodium Potassium Chloride Carbon Dioxide Anion Gap BUN Creatinine Creat Clearance w eGFR POC Glucometer [phone] Random Glucose Calcium Total Bilirubin AST ALT Alkaline Phosphatase Creatine Kinase Troponin I Total Protein Albumin TSH Urine Color Urine Appearance Urine pH Ur Specific Hallie Urine Protein Urine Glucose (UA) Urine Ketones Urine Blood Urine Nitrite Urine Bilirubin Urine Urobilinogen Ur Leukocyte Esterase Urine WBC (Auto) Urine RBC (Auto) Ur Epithelial Cells Urine Mucus CXR: Clear IMP: Acute on chronic hypercapneic Respiratory Failure AE of COPD Acute on chronic bronchitis Former smoker Above listed medical history PLAN: NIPPV adjusted to increase minute ventilation BD TX standing and PRN Levaquin noted Aspiration precautions VTE prophylaxis Repeat ABG Nancy Avila Low threshold for intubation ICU monitoring Dr Jennings Critical care time spent in reviewing chart, evaluating patient and formulating plan - 36 minutes.
--- NOTE | 2017-11-26 14:12 | CONSULT ---
Consultation: REQUESTING PROVIDER: CONSULT REQUEST: ICU Consult HISTORY OF PRESENT ILLNESS: 57 year old female with a PMH of COPD (on 4 L @ home), CHF (last EF), Hypothyroidism presents to the ED yesterday (11/25) c/o acute onset of dyspnea. Endorses productive (greenish sputum) cough and chest congestion, denies hemoptysis, chest pain, palpitations. No fevers, chills, night sweats or sick contacts. Reports medication adherence to her Spiriva and Roflumilast. Currently on Abx started by pulmonology (Dr. Parrish) but no steroids. H/o 20+ years of smoking. REVIEW OF SYSTEMS: CONSTITUTIONAL: Absent: fever, chills, diaphoresis, generalized weakness, malaise, loss of appetite, weight change HEENT: Absent: rhinorrhea, nasal congestion, throat pain, throat swelling, difficulty swallowing, mouth swelling, ear pain, eye pain, visual changes CARDIOVASCULAR: Absent: chest pain, syncope, palpitations, irregular heart rate, lightheadedness , peripheral edema RESPIRATORY: Cough, shortness of breath, dyspnea with exertion, Absent: orthopnea, wheezing, stridor, hemoptysis GASTROINTESTINAL: Absent: abdominal pain, abdominal distension, nausea, vomiting, diarrhea, constipation, melena, hematochezia GENITOURINARY: Absent: dysuria, frequency, urgency, hesitancy, hematuria, flank pain, genital pain MUSCULOSKELETAL: Absent: myalgia, arthralgia, joint swelling, back pain, neck pain SKIN: Absent: rash, itching, pallor HEMATOLOGIC/IMMUNOLOGIC: Absent: easy bleeding, easy bruising, lymphadenopathy, frequent infections ENDOCRINE: Absent: unexplained weight gain, unexplained weight loss, heat intolerance, cold intolerance NEUROLOGIC: Absent: headache, focal weakness or paresthesias, dizziness, unsteady gait, seizure, mental status changes, bladder or bowel incontinence PSYCHIATRIC: Absent: anxiety, depression, suicidal or homicidal ideation, hallucinations. PHYSICAL EXAMINATION Vital Signs - 24 hr 11/25/17 11/25/17 11/25/17 18:51 19:06 19:32 Temperature 98.1 F Pulse Rate 93 H Pulse Rate [ Apical] Respiratory 26 H Rate Blood Pressure 140/97 Blood Pressure [Right Arm] O2 Sat by Pulse 91 L 91 L 97 Oximetry (%) 11/25/17 11/25/17 11/26/17 19:35 22:46 00:36 Temperature Pulse Rate Pulse Rate [ Apical] Respiratory Rate Blood Pressure Blood Pressure [Right Arm] O2 Sat by Pulse 94 L 95 95 Oximetry (%) 11/26/17 11/26/17 11/26/17 01:03 06:05 06:40 Temperature 98.1 F 97.7 F Pulse Rate 101 H Pulse Rate [ 83 98 H Apical] Respiratory 22 20 18 Rate Blood Pressure 141/68 Blood Pressure 127/61 116/64 [Right Arm] O2 Sat by Pulse 97 100 Oximetry (%) 11/26/17 11/26/17 11/26/17 07:05 07:20 09:30 Temperature Pulse Rate Pulse Rate [ Apical] Respiratory Rate Blood Pressure Blood Pressure [Right Arm] O2 Sat by Pulse 96 98 96 Oximetry (%) 11/26/17 11/26/17 11/26/17 09:47 11:23 13:05 Temperature 97.8 F Pulse Rate Pulse Rate [ 96 H Apical] Respiratory 24 Rate Blood Pressure Blood Pressure 123/64 [Right Arm] O2 Sat by Pulse 98 98 97 Oximetry (%) GENERAL: on BIPAP, alert CV: S1/S2 Lungs: B/L wheezing, scattered rhonci Extremity: 2+ DP pulses, no edema Laboratory Results - last 24 hr 11/25/17 11/25/17 11/25/17 19:40 19:40 21:44 WBC 19.0 H D RBC 3.95 Hgb 12.0 Hct 38.2 MCV 96.6 H MCH 30.4 MCHC 31.5 L RDW 13.7 Plt Count 188 D MPV 8.3 Neutrophils % 90.8 H Neutrophils % (Manual) 70.0 Band Neutrophils % 17.0 Lymphocytes % 1.5 L D Lymphocytes % (Manual) 3.0 L D Monocytes % 7.5 Monocytes % (Manual) 7 Eosinophils % 0.0 Eosinophils % (Manual) 0.0 D Basophils % 0.2 D Basophils % (Manual) 1.0 Nucleated RBC % 0 Metamyelocytes 2 D Platelet Estimate Adequate Basophilic Stippling Occ Stomatocytes 1+ Anticoagulation Therapy Puncture Site ABG pH ABG pCO2 at Pt Temp ABG pO2 at Pt Temp ABG HCO3 ABG O2 Sat (Measured) ABG O2 Content ABG Base Excess Everton Test O2 Delivery Device Oxygen Flow Rate Vent Mode Vent Rate Mechanical Rate Pressure Support Vent Sodium 138 Potassium 4.2 Chloride 86 L Carbon Dioxide 51 H Anion Gap 1 L BUN 10 Creatinine 0.7 Creat Clearance w eGFR > 60 POC Glucometer Random Glucose 125 H Calcium 9.1 Total Bilirubin 0.3 D AST 14 L ALT 19 Alkaline Phosphatase 92 Creatine Kinase Troponin I Total Protein 6.8 Albumin 3.2 L TSH Urine Color Yellow Urine Appearance Slcloudy Urine pH 6.0 Ur Specific Ingram 1.019 Urine Protein 2+ H Urine Glucose (UA) Negative Urine Ketones Trace H Urine Blood Negative Urine Nitrite Negative Urine Bilirubin Negative Urine Urobilinogen Negative Ur Leukocyte Esterase Trace Urine WBC (Auto) 5 Urine RBC (Auto) 1 Ur Epithelial Cells Rare Urine Mucus Rare 11/26/17 11/26/17 11/26/17 06:01 06:20 06:20 WBC 16.4 H RBC 3.91 Hgb 12.1 Hct 37.9 MCV 96.9 H MCH 31.0 MCHC 32.0 RDW 13.5 Plt Count 200 MPV 8.9 Neutrophils % 96.9 H Neutrophils % (Manual) Band Neutrophils % Lymphocytes % 1.4 L Lymphocytes % (Manual) Monocytes % 1.6 L Monocytes % (Manual) Eosinophils % 0.0 Eosinophils % (Manual) Basophils % 0.1 Basophils % (Manual) Nucleated RBC % 0 Metamyelocytes Platelet Estimate Basophilic Stippling Stomatocytes Anticoagulation Therapy Puncture Site ABG pH ABG pCO2 at Pt Temp ABG pO2 at Pt Temp ABG HCO3 ABG O2 Sat (Measured) ABG O2 Content ABG Base Excess Ever[place] Test O2 Delivery Device Oxygen Flow Rate Vent Mode Vent Rate Mechanical Rate Pressure Support Vent Sodium 137 Potassium 4.6 Chloride 87 L Carbon Dioxide 46 H Anion Gap 4 L BUN 12 Creatinine 0.6 Creat Clearance w eGFR > 60 POC Glucometer 159.15284 Random Glucose 137 H Calcium 9.5 Total Bilirubin 0.3 AST 13 L ALT 18 Alkaline Phosphatase 100 Creatine Kinase 31 Troponin I < 0.02 Total Protein 6.9 Albumin 3.1 L TSH 0.12 L Urine Color Urine Appearance Urine pH Ur Specific Ingram Urine Protein Urine Glucose (UA) Urine Ketones Urine Blood Urine Nitrite Urine Bilirubin Urine Urobilinogen Ur Leukocyte Esterase Urine WBC (Auto) Urine RBC (Auto) Ur Epithelial Cells Urine Mucus 11/26/17 11/26/17 11:16 11:52 WBC RBC Hgb Hct MCV MCH MCHC RDW Plt Count MPV Neutrophils % Neutrophils % (Manual) Band Neutrophils % Lymphocytes % Lymphocytes % (Manual) Monocytes % Monocytes % (Manual) Eosinophils % Eosinophils % (Manual) Basophils % Basophils % (Manual) Nucleated RBC % Metamyelocytes Platelet Estimate Basophilic Stippling Stomatocytes Anticoagulation Therapy No Result Required. Puncture Site Right radial ABG pH 7.27 L ABG pCO2 at Pt Temp 108.0 H* D ABG pO2 at Pt Temp 88.4 ABG HCO3 48.0 H* ABG O2 Sat (Measured) 97.3 ABG O2 Content 15.8 ABG Base Excess 16.9 H* Everton Test Positive O2 Delivery Device Bipap Oxygen Flow Rate 50% Vent Mode St Vent Rate 12 Mechanical Rate No Result Required. Pressure Support Vent 10/5 Sodium Potassium Chloride Carbon Dioxide Anion Gap BUN Creatinine Creat Clearance w eGFR POC Glucometer 154.06354 Random Glucose Calcium Total Bilirubin AST ALT Alkaline Phosphatase Creatine Kinase Troponin I Total Protein Albumin TSH Urine Color Urine Appearance Urine pH Ur Specific Ingram Urine Protein Urine Glucose (UA) Urine Ketones Urine Blood Urine Nitrite Urine Bilirubin Urine Urobilinogen Ur Leukocyte Esterase Urine WBC (Auto) Urine RBC (Auto) Ur Epithelial Cells Urine Mucus Active Medications Generic Name Dose Route Start Last Admin Trade Name Freq PRN Reason Stop Dose Admin Acetaminophen 650 mg 11/25/17 21:54 Tylenol - PO Q6H PRN PAIN LEVEL 1-5 Albuterol Sulfate 1 amp 11/25/17 21:54 11/26/17 12:04 Ventolin 0.083% Nebulizer Soln - NEB 1 amp Q4H PRN Administration WHEEZING Albuterol/Ipratropium 1 amp 11/26/17 16:00 Duoneb - NEB RQID HANSEL Escitalopram Oxalate 10 mg 11/26/17 10:00 11/26/17 11:00 Lexapro - PO 10 mg DAILY [facility] Administration Furosemide 20 mg 11/26/17 10:00 11/26/17 10:59 Lasix - PO 20 mg DAILY [facility] Administration Heparin Sodium (Porcine) 5,000 unit 11/25/17 22:00 11/26/17 10:57 Heparin - SQ 5,000 unit BID HANSEL Administration Levofloxacin 500 mg in 100 mls @ 100 mls/hr 11/26/17 10:00 11/26/17 11:01 Levaquin 500 Mg Premixed Ivpb - IVPB 100 mls/hr DAILY [facility] Administration Protocol Insulin Aspart 1 vial 11/25/17 22:00 11/26/17 11:18 Novolog Vial Sliding Scale - SQ 2 units ACHS HANSEL Administration Protocol Levothyroxine Sodium 100 mcg 11/26/17 07:00 11/26/17 06:07 Synthroid - PO 100 mcg DAILY@0700 [facility] Administration Losartan Potassium 25 mg 11/26/17 10:00 11/26/17 10:58 Cozaar - PO 25 mg DAILY [facility] Administration Methylprednisolone Sodium Succinate 40 mg 11/26/17 03:00 11/26/17 09:34 Solu-Medrol - IVPB 40 mg Q6H-IV [facility] Administration Montelukast Sodium 10 mg 11/25/17 22:00 11/26/17 01:01 Singulair - PO Not Given HS [facility] Pantoprazole Sodium 40 mg 11/26/17 10:00 11/26/17 11:00 Protonix - PO 40 mg DAILY [facility] Administration Potassium Chloride 10 meq 11/26/17 10:00 11/26/17 10:59 K-Dur - PO 10 meq DAILY [facility] Administration Roflumilast 500 mcg 11/26/17 10:00 11/26/17 10:58 Daliresp - PO 500 mcg DAILY [facility] Administration ASSESSMENT/PLAN: 57 year old female presents to our ED yesterday c/o worsening dyspnea. ED workup showed hypercapneic respiratory failure. Patient on NIPPV and admitted to ICU for respiratory stabilization and monitoring. 1. ACUTE ON CHRONIC HYPERCAPNEIC RESPIRATORY FAILURE likely 2/2 to COPD exacerbation, less likely PNA - ABG 7.27/108/88/48 - Day 2 of Levaquin - CXR shows no infiltrate, consolidation, changes c/w COPD, grossly unchanged during course of admission - Repeat ABG pending - Continue NIPPV - Singulair, Solumedrol - Aspiration precautions - Close monitoring of respiratory state/clinical presentation, low threshold for intubation 2. CHRONIC DIASTOLIC HEART FAILURE - No KENZIE as per EMR - Continue Lasix, Lorsartan 3. DEPRESSION - Continue outpatient medication, Lexapro 4. HYPOTHYROIDISM - TSH subtherapeutic (0.12) on current admission - Continue Synthroid, management as per primary FEN - Cardiac diet - Monitor electrolytes PROPHYLAXIS Heparin SQ TID Dispo: Patient requires close respiratory monitoring with ICU level care. We will continue to follow the patient. Thank you for this consultative opportunity. Visit type - Emergency Visit Emergency Visit: Yes ED Registration Date: 11/25/17 Care time: The patient presented to the Emergency Department on the above date and was hospitalized for further evaluation of their emergent condition. - New Patient This patient is new to me today: Yes Date on this admission: 11/26/17 - Critical Care Critical Care patient: No
[2017-11-26 14:42] LABS: ARTERIAL BLD GAS O2 SATURATION 88.6 % (90-98.9); ARTERIAL BLOOD GAS BASE EXCESS 20.5 meq/l (-2-2); ARTERIAL BLOOD GAS PO2 49.9 mmHg (80-100); ARTERIAL BLOOD GAS pH 7.38 (7.35-7.45)
[2017-11-26 14:43] LABS: ALLENS TEST POSITIVE
[2017-11-26] MEDS ORDERED: ALBUTEROL SO4 2.5/IPRATROPIUM 0.5 INH SOL 3 ML VIAL.NEB. NEB ONE (16:21)
[2017-11-26] MEDS: ALBUTEROL SO4 2.5/IPRATROPIUM 0.5 INH SOL 3 ML VIAL.NEB. NEB SCH ×2 (16:22→20:13)
[2017-11-27] MEDS: methylPREDNISolone NA SUCC 40 MG/1 ML VIAL IVPB SCH ×4 (02:10→21:23)
[2017-11-27 06:21] LABS: BASO % 0.1 % (0-2.0); HEMATOCRIT 35.8 % (32.4-45.2); HEMOGLOBIN 11.5 GM/dL (10.7-15.3); LYMPH % 2.2 % (8-40); MCH 30.4 pg (25.7-33.7); MCHC 32.1 g/dl (32.0-36.0); MEAN CELL VOLUME 94.7 fl (80-96); MEAN PLT VOLUME 8.6 fl (7.5-11.1); NEUT % 94.7 % (42.8-82.8); PLATELET COUNT 227 K/MM3 (134-434); RBC 3.78 M/mm3 (3.60-5.2); RDW 12.8 % (11.6-15.6); WHITE BLOOD COUNT 12.3 K/mm3 (4.0-10.0)
--- NOTE | 2017-11-27 06:25 | PN ---
Progress Note, Physician Chief Complaint: in ICU on BIpap ABG noted, parameters adjusted, a little better today did not need intubation - Current Medication List Current Medications: Active Medications Acetaminophen (Tylenol -) 650 mg PO Q6H PRN PRN Reason: PAIN LEVEL 1-5 Albuterol Sulfate (Ventolin 0.083% Nebulizer Soln -) 1 amp NEB Q4H PRN PRN Reason: WHEEZING Last Admin: 11/26/17 12:04 Dose: 1 amp Albuterol/Ipratropium (Duoneb -) 1 amp NEB RQID [facility]ANSEL Last Admin: 11/26/17 20:13 Dose: 1 amp Escitalopram Oxalate (Lexapro -) 10 mg PO DAILY [facility] Last Admin: 11/26/17 11:00 Dose: 10 mg Furosemide (Lasix -) 20 mg PO DAILY [facility] Last Admin: 11/26/17 10:59 Dose: 20 mg Heparin Sodium (Porcine) (Heparin -) 5,000 unit SQ BID [facility] Last Admin: 11/26/17 22:08 Dose: 5,000 unit Levofloxacin (Levaquin 500 Mg Premixed Ivpb -) 500 mg in 100 mls @ 100 mls/hr IVPB DAILY [facility]; Protocol Last Admin: 11/26/17 11:01 Dose: 100 mls/hr Insulin Aspart (Novolog Vial Sliding Scale -) 1 vial SQ ACHS [facility]; Protocol Last Admin: 11/26/17 22:08 Dose: Not Given Levothyroxine Sodium (Synthroid -) 100 mcg PO DAILY@0700 [facility] Last Admin: 11/26/17 06:07 Dose: 100 mcg Losartan Potassium (Cozaar -) 25 mg PO DAILY [facility] Last Admin: 11/26/17 10:58 Dose: 25 mg Methylprednisolone Sodium Succinate (Solu-Medrol -) 40 mg IVPB Q6H-IV [facility] Last Admin: 11/27/17 02:10 Dose: 40 mg Montelukast Sodium (Singulair -) 10 mg PO HS [facility] Last Admin: 11/26/17 22:09 Dose: 10 mg Pantoprazole Sodium (Protonix -) 40 mg PO DAILY [facility] Last Admin: 11/26/17 11:00 Dose: 40 mg Potassium Chloride (K-Dur -) 10 meq PO DAILY [facility] Last Admin: 11/26/17 10:59 Dose: 10 meq Roflumilast (Daliresp -) 500 mcg PO DAILY [facility] Last Admin: 11/26/17 10:58 Dose: 500 mcg - Objective Vital Signs: Vital Signs Temperature 98.2 F 11/27/17 02:00 Pulse Rate 82 11/27/17 04:00 Respiratory Rate 26 H 11/27/17 04:00 Blood Pressure 135/75 11/27/17 04:00 O2 Sat by Pulse Oximetry (%) 97 11/26/17 19:06 Constitutional: Yes: No Distress, Calm Eyes: Yes: Conjunctiva Clear HENT: Yes: Atraumatic Neck: Yes: Supple Cardiovascular: Yes: Regular Rate and Rhythm Respiratory: Yes: Rales, Wheezes Gastrointestinal: Yes: Soft. No: Distention, Tenderness Genitourinary: No: CVA Tenderness - Left, CVA Tenderness - Right Musculoskeletal: No: Joint Stiffness, Joint Swelling Extremities: No: Cold, Cool, Cyanosis Edema: No Integumentary: No: Rash, Venous Stasis Changes Neurological: Yes: WNL, Alert, Oriented ...Motor Strength: WNL Psychiatric: Yes: WNL, Alert, Oriented. No: Agitated, Suicidal Ideation - ....Imaging Chest X-ray: Report Reviewed Other: Report Reviewed Assessment/Plan The patient is a 57 year old female with past medical history of COPD, HTN, pneumonia, CHF, hypothyroidism, chronic back pain, advanced COPD with history of prior intubation on O2 home 4L continuously, and ICU admission presents to the emergency department via ems with difficulty breathing. The patient reports congestion with production of green colored sputum not better wit po antibiotic for 1 day. tests meds consults reviewed and d/w pt Allergies: Penicillins; iv levaquin iv steroids, gastric PFX and check BGM while on high doses of steroids DVT PFX nebs admitted to ICU f/u with puldae ICU dr Dick Acevedo, check ABG prognosis guarded d/w pt and ER staff d/w ICU falls PFX pt advised do not get OOB alone, call for help if needs OOB t time 45 min d/w cell [phone]
[2017-11-27] MEDS: INSULIN SLIDING SCALE (NOVOLOG) 1 VIAL SQ SCH ×4 (06:26→21:24)
[2017-11-27] MEDS: LEVOTHYROXINE NA 100 MCG TABLET (FP) PO SCH (06:28)
[2017-11-27 06:50] LABS: CHLORIDE 87 mmol/L (98-107); POTASSIUM 3.8 mmol/L (3.5-5.1); SODIUM 139 mmol/L (136-145)
[2017-11-27 07:00] LABS: ALBUMIN 2.8 g/dl (3.4-5.0); ALK PHOS 86 U/L (45-117); BILIRUBIN,TOTAL 0.3 mg/dL (0.2-1.0); BLOOD UREA NITROGEN 17 mg/dL (7-18); CALCIUM 9.6 mg/dL (8.5-10.1); CREATININE 0.6 mg/dL (0.55-1.02); GLUCOSE,RANDOM 149 mg/dL (74-106); SGOT/AST 14 U/L (15-37); SGPT/ALT 16 U/L (12-78); TOT PROT 6.3 g/dl (6.4-8.2)
[2017-11-27 07:01] LABS: ARTERIAL BLD GAS O2 SATURATION 95.8 % (90-98.9); ARTERIAL BLOOD GAS PO2 74.6 mmHg (80-100); ARTERIAL BLOOD GAS pH 7.39 (7.35-7.45)
[2017-11-27 07:09] LABS: ALLENS TEST POSITIVE
[2017-11-27 07:11] LABS: ARTERIAL BLOOD GAS BASE EXCESS 18.6 meq/l (-2-2)
[2017-11-27] MEDS: ALBUTEROL SO4 2.5/IPRATROPIUM 0.5 INH SOL 3 ML VIAL.NEB. NEB SCH ×4 (07:44→21:15)
[2017-11-27 09:04] LABS: ANION GAP 0 (8-16); CO2 52 mmol/L (21-32)
[2017-11-27] MEDS: LOSARTAN POTASSIUM 25 MG TABLET PO SCH (09:40)
[2017-11-27] MEDS: ROFLUMILAST 500 MCG TABLET PO SCH (09:41)
[2017-11-27] MEDS: PANTOPRAZOLE 40 MG TABLET (FP) PO SCH (09:41)
[2017-11-27] MEDS: FUROSEMIDE 20 MG TABLET (FP) PO SCH (09:41)
[2017-11-27] MEDS: ESCITALOPRAM OXALATE 10 MG TABLET (FP) PO SCH (09:42)
[2017-11-27] MEDS: POTASSIUM CHLORIDE TABS 10 MEQ TABLET.ER (FP) PO SCH (09:42)
[2017-11-27] MEDS: HEPARIN NA (PORCINE) 5,000 UNITS/ML 1ML VIAL SQ SCH ×2 (09:43→21:23)
--- NOTE | 2017-11-27 12:34 | PN ---
Physical Exam: SUBJECTIVE: Patient awake, states she is feeling better, notes decreased respiratory effort. OBJECTIVE: Vital Signs Period Temp Pulse Resp BP Sys/Domínguez Pulse Ox Last 24 Hr 97.9 F-99.2 F 82-96 22-88 107-156/55-96 93-98 GENERAL: awake, alert, on NIPPV Respiratory: scattered rhonci B/L CV: S1/S2 Extremity: 2+ DP pulses, SCD's in place Abdomen: no TTP, (+) bowel sounds Laboratory Results - last 24 hr 11/26/17 11/26/17 11/26/17 14:25 17:55 21:59 WBC RBC Hgb Hct MCV MCH MCHC RDW Plt Count MPV Neutrophils % Lymphocytes % Monocytes % Eosinophils % Basophils % Nucleated RBC % Anticoagulation Therapy No Result Required. Puncture Site Right radial ABG pH 7.38 ABG pCO2 at Pt Temp 86.0 H* D ABG pO2 at Pt Temp 49.9 L* D ABG HCO3 49.7 H* ABG O2 Sat (Measured) 88.6 L ABG O2 Content 14.0 L ABG Base Excess 20.5 H* Everton Test Positive O2 Delivery Device Bipap Oxygen Flow Rate 35% Vent Mode Sw/t Vent Rate 22 Mechanical Rate Yes PEEP 0.0 Pressure Support Vent 14/7 Sodium Potassium Chloride Carbon Dioxide Anion Gap BUN Creatinine Creat Clearance w eGFR POC Glucometer 131.09112 143.27034 Random Glucose Calcium Total Bilirubin AST ALT Alkaline Phosphatase Total Protein Albumin 11/27/17 11/27/17 11/27/17 05:25 05:25 06:45 WBC 12.3 H RBC 3.78 Hgb 11.5 Hct 35.8 MCV 94.7 MCH 30.4 MCHC 32.1 RDW 12.8 Plt Count 227 MPV 8.6 Neutrophils % 94.7 H Lymphocytes % 2.2 L D Monocytes % 3.0 L D Eosinophils % 0.0 Basophils % 0.1 Nucleated RBC % 0 Anticoagulation Therapy Puncture Site No Result Required. ABG pH 7.39 ABG pCO2 at Pt Temp 80.0 H* ABG pO2 at Pt Temp 74.6 L D ABG HCO3 47.3 H* ABG O2 Sat (Measured) 95.8 ABG O2 Content 15.7 ABG Base Excess 18.6 H* Everton Test Positive O2 Delivery Device Bipap Oxygen Flow Rate 40% Vent Mode Vent Rate 22 Mechanical Rate PEEP 8.0 Pressure Support Vent 14 Sodium 139 Potassium 3.8 Chloride 87 L Carbon Dioxide 52 H Anion Gap 0 L BUN 17 Creatinine 0.6 Creat Clearance w eGFR > 60 POC Glucometer Random Glucose 149 H Calcium 9.6 Total Bilirubin 0.3 AST 14 L ALT 16 Alkaline Phosphatase 86 Total Protein 6.3 L Albumin 2.8 L 11/27/17 11:20 WBC RBC Hgb Hct MCV MCH MCHC RDW Plt Count MPV Neutrophils % Lymphocytes % Monocytes % Eosinophils % Basophils % Nucleated RBC % Anticoagulation Therapy Puncture Site ABG pH ABG pCO2 at Pt Temp ABG pO2 at Pt Temp ABG HCO3 ABG O2 Sat (Measured) ABG O2 Content ABG Base Excess Everton Test O2 Delivery Device Oxygen Flow Rate Vent Mode Vent Rate Mechanical Rate PEEP Pressure Support Vent Sodium Potassium Chloride Carbon Dioxide Anion Gap BUN Creatinine Creat Clearance w eGFR POC Glucometer 153.11222 Random Glucose Calcium Total Bilirubin AST ALT Alkaline Phosphatase Total Protein Albumin Active Medications Generic Name Dose Route Start Last Admin Trade Name Freq PRN Reason Stop Dose Admin Acetaminophen 650 mg 11/25/17 21:54 Tylenol - PO Q6H PRN PAIN LEVEL 1-5 Albuterol Sulfate 1 amp 11/25/17 21:54 11/26/17 12:04 Ventolin 0.083% Nebulizer Soln - NEB 1 amp Q4H PRN Administration WHEEZING Albuterol/Ipratropium 1 amp 11/26/17 16:00 11/27/17 11:34 Duoneb - NEB 1 amp RQID [facility] Administration Escitalopram Oxalate 10 mg 11/26/17 10:00 11/27/17 09:42 Lexapro - PO 10 mg DAILY [facility] Administration Furosemide 20 mg 11/26/17 10:00 11/27/17 09:41 Lasix - PO 20 mg DAILY [facility] Administration Heparin Sodium (Porcine) 5,000 unit 11/25/17 22:00 11/27/17 09:43 Heparin - SQ 5,000 unit BID [facility] Administration Levofloxacin 500 mg in 100 mls @ 100 mls/hr 11/26/17 10:00 11/27/17 12:20 Levaquin 500 Mg Premixed Ivpb - IVPB 100 mls/hr DAILY [facility] Administration Protocol Insulin Aspart 1 vial 11/25/17 22:00 11/27/17 11:34 Novolog Vial Sliding Scale - SQ 2 units ACHS [facility] Administration Protocol Levothyroxine Sodium 100 mcg 11/26/17 07:00 11/27/17 06:28 Synthroid - PO 100 mcg DAILY@0700 [facility] Administration Losartan Potassium 25 mg 11/26/17 10:00 11/27/17 09:40 Cozaar - PO 25 mg DAILY [facility] Administration Methylprednisolone Sodium Succinate 40 mg 11/26/17 03:00 11/27/17 08:17 Solu-Medrol - IVPB 40 mg Q6H-IV [facility] Administration Montelukast Sodium 10 mg 11/25/17 22:00 11/26/17 22:09 Singulair - PO 10 mg HS [facility] Administration Pantoprazole Sodium 40 mg 11/26/17 10:00 11/27/17 09:41 Protonix - PO 40 mg DAILY [facility] Administration Potassium Chloride 10 meq 11/26/17 10:00 11/27/17 09:42 K-Dur - PO 10 meq DAILY [facility] Administration Roflumilast 500 mcg 11/26/17 10:00 11/27/17 09:41 Daliresp - PO 500 mcg DAILY [facility] Administration ASSESSMENT/PLAN: 57 year old female presents to our ED 11/24 c/o worsening dyspnea. ED workup showed hypercapneic respiratory failure. Patient on NIPPV and admitted to ICU for respiratory stabilization and monitoring. 1. ACUTE ON CHRONIC HYPERCAPNEIC RESPIRATORY FAILURE likely 2/2 to COPD exacerbation, less likely PNA - RESOLVED - ABG 7.39/80/74.6/47 < -- 7.27/108/88/48 @ presentation - CXR shows no infiltrate, consolidation, changes c/w COPD, grossly unchanged during course of admission - Continue NIPPV - Singulair, Solumedrol - D/c Abx - Aspiration precautions 2. CHRONIC DIASTOLIC HEART FAILURE - No KENZIE as per EMR - Continue Lasix, Lorsartan 3. DEPRESSION - Continue outpatient medication, Lexapro 4. HYPOTHYROIDISM - TSH subtherapeutic (0.12) on current admission - Continue Synthroid, management as per primary FEN - Cardiac diet - Monitor electrolytes PROPHYLAXIS Heparin SQ TID Dispo: Patient stable for transfer to inpatient medicine floor Visit type - Emergency Visit Emergency Visit: No - New Patient This patient is new to me today: No - Critical Care Critical Care patient: No
--- NOTE | 2017-11-27 12:43 | PN ---
Teaching Attending Note Name of Resident: Caitlin Mendez ATTENDING PHYSICIAN STATEMENT I saw and evaluated the patient. I reviewed the resident's note and discussed the case with the resident. I agree with the resident's findings and plan as documented. SUBJECTIVE: Patient seen and examined in the ICU. Awake and alert. Appears better than yesterday. Off NIPPV at this time. No CP. Dry cough persists. CXR: no acute process / right hilar fullness Intake & Output 11/24/17 11/25/17 11/26/17 11/27/17 23:59 23:59 23:59 23:59 Intake Total 300 Balance 300 Weight 168 lb 175 lb 175 lb Last Vital Signs Temp Pulse Resp BP Pulse Ox 98 F 86 26 H 132/75 93 L 11/27/17 10:00 11/27/17 12:00 11/27/17 12:00 11/27/17 12:00 11/27/17 10:12 Active Medications Acetaminophen (Tylenol -) 650 mg PO Q6H PRN PRN Reason: PAIN LEVEL 1-5 Albuterol Sulfate (Ventolin 0.083% Nebulizer Soln -) 1 amp NEB Q4H PRN PRN Reason: WHEEZING Last Admin: 11/26/17 12:04 Dose: 1 amp Albuterol/Ipratropium (Duoneb -) 1 amp NEB RQID [facility] Last Admin: 11/27/17 11:34 Dose: 1 amp Escitalopram Oxalate (Lexapro -) 10 mg PO DAILY [facility] Last Admin: 11/27/17 09:42 Dose: 10 mg Furosemide (Lasix -) 20 mg PO DAILY [facility] Last Admin: 11/27/17 09:41 Dose: 20 mg Heparin Sodium (Porcine) (Heparin -) 5,000 unit SQ BID [facility] Last Admin: 11/27/17 09:43 Dose: 5,000 unit Insulin Aspart (Novolog Vial Sliding Scale -) 1 vial SQ ACHS [facility]; Protocol Last Admin: 11/27/17 11:34 Dose: 2 units Levothyroxine Sodium (Synthroid -) 100 mcg PO DAILY@0700 [facility] Last Admin: 11/27/17 06:28 Dose: 100 mcg Losartan Potassium (Cozaar -) 25 mg PO DAILY [facility] Last Admin: 11/27/17 09:40 Dose: 25 mg Methylprednisolone Sodium Succinate (Solu-Medrol -) 40 mg IVPB Q6H-IV [facility] Last Admin: 11/27/17 08:17 Dose: 40 mg Montelukast Sodium (Singulair -) 10 mg PO HS [facility] Last Admin: 11/26/17 22:09 Dose: 10 mg Pantoprazole Sodium (Protonix -) 40 mg PO DAILY [facility] Last Admin: 11/27/17 09:41 Dose: 40 mg Potassium Chloride (K-Dur -) 10 meq PO DAILY [facility] Last Admin: 11/27/17 09:42 Dose: 10 meq Roflumilast (Daliresp -) 500 mcg PO DAILY [facility] Last Admin: 11/27/17 09:41 Dose: 500 mcg GENERAL: Awake, alert on VM O2, mildly tachypneic at rest HEAD: No signs of trauma EYES: PERRLA, EOMI, sclera anicteric, conjunctiva clear ENT: (-) Lesions. Moist mucosa NECK: Normal ROM, supple, no lymphadenopathy, JVD, or masses LUNGS: Less bilateral expiratory wheezing. HEART: Regular rate and rhythm, normal S1 and S2, no murmurs, rubs or gallops ABDOMEN: Soft, nontender, normoactive bowel sounds. No guarding, no rebound. No masses EXTREMITIES: Normal range of motion, no edema. No clubbing or cyanosis. No cords, erythema, or tenderness NEUROLOGICAL: Non-focal SKIN: Warm, Dry, normal turgor, no rashes or lesions noted. Laboratory Results - last 24 hr 11/26/17 11/26/17 11/26/17 14:25 17:55 21:59 WBC RBC Hgb Hct MCV MCH MCHC RDW Plt Count MPV Neutrophils % Lymphocytes % Monocytes % Eosinophils % Basophils % Nucleated RBC % Anticoagulation Therapy No Result Required. Puncture Site Right radial ABG pH 7.38 ABG pCO2 at Pt Temp 86.0 H* D ABG pO2 at Pt Temp 49.9 L* D ABG HCO3 49.7 H* ABG O2 Sat (Measured) 88.6 L ABG O2 Content 14.0 L ABG Base Excess 20.5 H* Everton Test Positive O2 Delivery Device Bipap Oxygen Flow Rate 35% Vent Mode Sw/t Vent Rate 22 Mechanical Rate Yes PEEP 0.0 Pressure Support Vent 14/7 Sodium Potassium Chloride Carbon Dioxide Anion Gap BUN Creatinine Creat Clearance w eGFR POC Glucometer 131.43845 143.25981 Random Glucose Calcium Total Bilirubin AST ALT Alkaline Phosphatase Total Protein Albumin 11/27/17 11/27/17 11/27/17 05:25 05:25 06:45 WBC 12.3 H RBC 3.78 Hgb 11.5 Hct 35.8 MCV 94.7 MCH 30.4 MCHC 32.1 RDW 12.8 Plt Count 227 MPV 8.6 Neutrophils % 94.7 H Lymphocytes % 2.2 L D Monocytes % 3.0 L D Eosinophils % 0.0 Basophils % 0.1 Nucleated RBC % 0 Anticoagulation Therapy Puncture Site No Result Required. ABG pH 7.39 ABG pCO2 at Pt Temp 80.0 H* ABG pO2 at Pt Temp 74.6 L D ABG HCO3 47.3 H* ABG O2 Sat (Measured) 95.8 ABG O2 Content 15.7 ABG Base Excess 18.6 H* [place] Test Positive O2 Delivery Device Bipap Oxygen Flow Rate 40% Vent Mode Vent Rate 22 Mechanical Rate PEEP 8.0 Pressure Support Vent 14 Sodium 139 Potassium 3.8 Chloride 87 L Carbon Dioxide 52 H Anion Gap 0 L BUN 17 Creatinine 0.6 Creat Clearance w eGFR > 60 POC Glucometer Random Glucose 149 H Calcium 9.6 Total Bilirubin 0.3 AST 14 L ALT 16 Alkaline Phosphatase 86 Total Protein 6.3 L Albumin 2.8 L 11/27/17 11:20 WBC RBC Hgb Hct MCV MCH MCHC RDW Plt Count MPV Neutrophils % Lymphocytes % Monocytes % Eosinophils % Basophils % Nucleated RBC % Anticoagulation Therapy Puncture Site ABG pH ABG pCO2 at Pt Temp ABG pO2 at Pt Temp ABG HCO3 ABG O2 Sat (Measured) ABG O2 Content ABG Base Excess [place] Test O2 Delivery Device Oxygen Flow Rate Vent Mode Vent Rate Mechanical Rate PEEP Pressure Support Vent Sodium Potassium Chloride Carbon Dioxide Anion Gap BUN Creatinine Creat Clearance w eGFR POC Glucometer 153.64734 Random Glucose Calcium Total Bilirubin AST ALT Alkaline Phosphatase Total Protein Albumin IMP: Acute on chronic hypercapneic Respiratory Failure AE of COPD Acute on chronic bronchitis Former smoker Above listed medical history PLAN: VM O2 as tolerated NIPPV as needed to decrease BD TX standing and PRN D/C Levaquin for now Aspiration precautions VTE prophylaxis Daliresp Singulair 4W/4S monitoring Dr Jennings Critical care time spent in reviewing chart, evaluating patient and formulating plan - 36 minutes.
[2017-11-27] MEDS: MONTELUKAST NA 10 MG TABLET PO SCH (21:23)
[2017-11-28] MEDS: guaiFENesin 200 MG/10 ML 10 ML UNIT-DOSE CUPS PO PRN (00:24)
[2017-11-28] MEDS: methylPREDNISolone NA SUCC 40 MG/1 ML VIAL IVPB SCH ×5 (02:20→22:00)
[2017-11-28] MEDS ORDERED: ACETAMINOPHEN 325 MG TABLET (FP) PO PRN (02:42)
[2017-11-28] MEDS ORDERED: ALBUTEROL SO4 0.083% IH SOL 2.5 MG/3 ML VIAL.NEB. NEB PRN (02:42)
[2017-11-28] MEDS: LEVOTHYROXINE NA 100 MCG TABLET (FP) PO SCH (06:20)
[2017-11-28] MEDS: INSULIN SLIDING SCALE (NOVOLOG) 1 VIAL SQ SCH ×4 (06:20→22:30)
[2017-11-28 06:43] LABS: BASO % 0.2 % (0-2.0); HEMATOCRIT 38.3 % (32.4-45.2); HEMOGLOBIN 12.4 GM/dL (10.7-15.3); LYMPH % 2.1 % (8-40); MCH 30.6 pg (25.7-33.7); MCHC 32.3 g/dl (32.0-36.0); MEAN CELL VOLUME 94.7 fl (80-96); MEAN PLT VOLUME 8.2 fl (7.5-11.1); MONO % 3.5 % (3.8-10.2); NEUT % 94.2 % (42.8-82.8); PLATELET COUNT 241 K/MM3 (134-434); RBC 4.05 M/mm3 (3.60-5.2); RDW 13.2 % (11.6-15.6); WHITE BLOOD COUNT 11.1 K/mm3 (4.0-10.0)
--- NOTE | 2017-11-28 06:54 | PN ---
Progress Note, Physician Chief Complaint: better less SOB less cough seen by pulm; will need chest CT when stable; now in telemetry unit - Current Medication List Current Medications: Active Medications Acetaminophen (Tylenol -) 650 mg PO Q6H PRN PRN Reason: PAIN LEVEL 1-5 Albuterol Sulfate (Ventolin 0.083% Nebulizer Soln -) 1 amp NEB Q4H PRN PRN Reason: WHEEZING Albuterol/Ipratropium (Duoneb -) 1 amp NEB RQID [facility] Escitalopram Oxalate (Lexapro -) 10 mg PO DAILY [facility] Furosemide (Lasix -) 20 mg PO DAILY [facility] Guaifenesin (Robitussin -) 10 ml PO Q4H PRN PRN Reason: COUGH Last Admin: 11/28/17 00:24 Dose: 10 ml Heparin Sodium (Porcine) (Heparin -) 5,000 unit SQ BID [facility] Insulin Aspart (Novolog Vial Sliding Scale -) 1 vial SQ ACHS [facility]; Protocol Last Admin: 11/28/17 06:20 Dose: 2 units Levothyroxine Sodium (Synthroid -) 100 mcg PO DAILY@0700 [facility] Last Admin: 11/28/17 06:20 Dose: 100 mcg Losartan Potassium (Cozaar -) 25 mg PO DAILY [facility] Methylprednisolone Sodium Succinate (Solu-Medrol -) 40 mg IVPB Q6H-IV [facility] Last Admin: 11/28/17 06:17 Dose: Not Given Montelukast Sodium (Singulair -) 10 mg PO HS [facility] Pantoprazole Sodium (Protonix -) 40 mg PO DAILY [facility] Potassium Chloride (K-Dur -) 10 meq PO DAILY [facility] Roflumilast (Daliresp -) 500 mcg PO DAILY [facility] - Objective Vital Signs: Vital Signs Temperature 98.4 F 11/27/17 21:00 Pulse Rate 90 11/28/17 05:00 Respiratory Rate 18 11/28/17 05:00 Blood Pressure 135/84 11/28/17 05:00 O2 Sat by Pulse Oximetry (%) 96 11/28/17 02:40 Constitutional: Yes: No Distress, Calm Eyes: Yes: Conjunctiva Clear HENT: Yes: Atraumatic Neck: Yes: Supple Cardiovascular: Yes: Regular Rate and Rhythm Respiratory: Yes: Rales, Wheezes (less) Gastrointestinal: Yes: Soft. No: Distention, Tenderness Genitourinary: No: CVA Tenderness - Left, CVA Tenderness - Right Musculoskeletal: No: Joint Stiffness, Joint Swelling Extremities: No: Cold, Cool, Cyanosis Edema: No Integumentary: No: Rash, Venous Stasis Changes Neurological: Yes: WNL, Alert, Oriented ...Motor Strength: WNL Psychiatric: Yes: WNL, Alert, Oriented. No: Agitated, Suicidal Ideation Labs: CBC, BMP 11/28/17 05:15 - ....Imaging Other: Report Reviewed Assessment/Plan The patient is a 57 year old female with past medical history of COPD, HTN, pneumonia, CHF, hypothyroidism, chronic back pain, advanced COPD with history of prior intubation on O2 home 4L continuously, and ICU admission presents to the emergency department via ems with difficulty breathing. The patient reports congestion with production of green colored sputum not better wit po antibiotic for 1 day. tests meds consults reviewed and d/w pt Allergies: Penicillins; iv levaquin iv steroids, gastric PFX and check BGM while on high doses of steroids DVT PFX nebs chest CT when stable Bipap prn, O2 continuous prognosis guarded d/w pt and ER staff d/w ICU falls PFX pt advised do not get OOB alone, call for help if needs OOB
[2017-11-28 07:09] LABS: CHLORIDE 88 mmol/L (98-107); POTASSIUM 3.9 mmol/L (3.5-5.1); SODIUM 141 mmol/L (136-145)
[2017-11-28 07:26] LABS: ALBUMIN 2.7 g/dl (3.4-5.0); ALK PHOS 77 U/L (45-117); BILIRUBIN,TOTAL 0.2 mg/dL (0.2-1.0); BLOOD UREA NITROGEN 19 mg/dL (7-18); CALCIUM 9.2 mg/dL (8.5-10.1); CREATININE 0.6 mg/dL (0.55-1.02); GLUCOSE,RANDOM 154 mg/dL (74-106); SGOT/AST 10 U/L (15-37); SGPT/ALT 15 U/L (12-78)
[2017-11-28 08:15] LABS: ANION GAP 0 (8-16); CO2 53 mmol/L (21-32)
[2017-11-28] MEDS: ALBUTEROL SO4 2.5/IPRATROPIUM 0.5 INH SOL 3 ML VIAL.NEB. NEB SCH ×4 (08:22→21:00)
[2017-11-28] MEDS ORDERED: PT OWN MED DRAWER 7, Y5N ONE (09:07)
[2017-11-28] MEDS: HEPARIN NA (PORCINE) 5,000 UNITS/ML 1ML VIAL SQ SCH ×2 (09:18→22:30)
[2017-11-28] MEDS: PANTOPRAZOLE 40 MG TABLET (FP) PO SCH (09:19)
[2017-11-28] MEDS: LOSARTAN POTASSIUM 25 MG TABLET PO SCH (09:19)
[2017-11-28] MEDS: POTASSIUM CHLORIDE TABS 10 MEQ TABLET.ER (FP) PO SCH (09:19)
[2017-11-28] MEDS: FUROSEMIDE 20 MG TABLET (FP) PO SCH (09:19)
[2017-11-28] MEDS: ESCITALOPRAM OXALATE 10 MG TABLET (FP) PO SCH (09:19)
[2017-11-28] MEDS: ROFLUMILAST 500 MCG TABLET PO SCH (09:19)
--- NOTE | 2017-11-28 10:59 | PN ---
Progress Note, Physician History of Present Illness: pulmonary alert,on vm,less dyspneic - Current Medication List Current Medications: Active Medications Acetaminophen (Tylenol -) 650 mg PO Q6H PRN PRN Reason: PAIN LEVEL 1-5 Albuterol Sulfate (Ventolin 0.083% Nebulizer Soln -) 1 amp NEB Q4H PRN PRN Reason: WHEEZING Albuterol/Ipratropium (Duoneb -) 1 amp NEB RQID [facility] Last Admin: 11/28/17 08:22 Dose: 1 amp Escitalopram Oxalate (Lexapro -) 10 mg PO DAILY [facility] Last Admin: 11/28/17 09:19 Dose: 10 mg Furosemide (Lasix -) 20 mg PO DAILY [facility] Last Admin: 11/28/17 09:19 Dose: 20 mg Guaifenesin (Robitussin -) 10 ml PO Q4H PRN PRN Reason: COUGH Last Admin: 11/28/17 00:24 Dose: 10 ml Heparin Sodium (Porcine) (Heparin -) 5,000 unit SQ BID [facility] Last Admin: 11/28/17 09:18 Dose: 5,000 unit Insulin Aspart (Novolog Vial Sliding Scale -) 1 vial SQ ACHS [facility]; Protocol Last Admin: 11/28/17 06:20 Dose: 2 units Levothyroxine Sodium (Synthroid -) 100 mcg PO DAILY@0700 [facility] Last Admin: 11/28/17 06:20 Dose: 100 mcg Losartan Potassium (Cozaar -) 25 mg PO DAILY [facility] Last Admin: 11/28/17 09:19 Dose: 25 mg Methylprednisolone Sodium Succinate (Solu-Medrol -) 40 mg IVPB Q6H-IV [facility] Last Admin: 11/28/17 09:18 Dose: 40 mg Montelukast Sodium (Singulair -) 10 mg PO HS [facility] Pantoprazole Sodium (Protonix -) 40 mg PO DAILY [facility] Last Admin: 11/28/17 09:19 Dose: 40 mg Potassium Chloride (K-Dur -) 10 meq PO DAILY [facility] Last Admin: 11/28/17 09:19 Dose: 10 meq Roflumilast (Daliresp -) 500 mcg PO DAILY [facility] Last Admin: 11/28/17 09:19 Dose: 500 mcg - Objective Vital Signs: Vital Signs Temperature 98.4 F 11/28/17 07:51 Pulse Rate 62 11/28/17 08:21 Respiratory Rate 20 11/28/17 09:00 Blood Pressure 118/74 11/28/17 07:51 O2 Sat by Pulse Oximetry (%) 98 11/28/17 09:00 Constitutional: Yes: Well Nourished, Calm Eyes: Yes: WNL HENT: Yes: WNL Neck: Yes: WNL Cardiovascular: Yes: Regular Rate and Rhythm, S1, S2 Respiratory: Yes: Wheezes (scattered steve wheezes) Gastrointestinal: Yes: Normal Bowel Sounds, Soft Extremities: Yes: WNL Edema: No Labs: CBC, BMP 11/28/17 05:15 11/28/17 05:15 Problem List - Problems (1) Acute on chronic respiratory failure with hypoxia and hypercapnia Code(s): J96.21 - ACUTE AND CHRONIC RESPIRATORY FAILURE WITH HYPOXIA; J96.22 - ACUTE AND CHRONIC RESPIRATORY FAILURE WITH HYPERCAPNIA (2) Hypertension Code(s): I10 - ESSENTIAL (PRIMARY) HYPERTENSION (3) Hypothyroidism Code(s): E03.9 - HYPOTHYROIDISM, UNSPECIFIED Qualifiers: Hypothyroidism type: unspecified Qualified Code(s): E03.9 - Hypothyroidism , unspecified (4) CHF (congestive heart failure) Code(s): I50.9 - HEART FAILURE, UNSPECIFIED (5) COPD exacerbation Code(s): J44.1 - CHRONIC OBSTRUCTIVE PULMONARY DISEASE W (ACUTE) EXACERBATION Assessment/Plan IMP: Acute on chronic hypercapneic Respiratory Failure improving AE of COPD Acute on chronic bronchitis Former smoker PLAN: VM O2 as tolerated NIPPV as needed BD TX standing and PRN Aspiration precautions VTE prophylaxis Daliresp Singulair Chest ct DR MEDEIROS
[2017-11-28] MEDS: MONTELUKAST NA 10 MG TABLET PO SCH (22:30)
[2017-11-29] MEDS: methylPREDNISolone NA SUCC 40 MG/1 ML VIAL IVPB SCH ×3 (03:00→17:49)
[2017-11-29] MEDS: INSULIN SLIDING SCALE (NOVOLOG) 1 VIAL SQ SCH ×3 (06:15→17:49)
[2017-11-29] MEDS: LEVOTHYROXINE NA 100 MCG TABLET (FP) PO SCH (06:15)
--- NOTE | 2017-11-29 06:18 | PN ---
Progress Note, Physician Chief Complaint: in bed NAD VSS no new co less cough less wheezing; will taper steroids and get chest CT - Current Medication List Current Medications: Active Medications Acetaminophen (Tylenol -) 650 mg PO Q6H PRN PRN Reason: PAIN LEVEL 1-5 Albuterol Sulfate (Ventolin 0.083% Nebulizer Soln -) 1 amp NEB Q4H PRN PRN Reason: WHEEZING Albuterol/Ipratropium (Duoneb -) 1 amp NEB RQID [facility] Last Admin: 11/28/17 21:00 Dose: 1 amp Escitalopram Oxalate (Lexapro -) 10 mg PO DAILY [facility] Last Admin: 11/28/17 09:19 Dose: 10 mg Furosemide (Lasix -) 20 mg PO DAILY [facility] Last Admin: 11/28/17 09:19 Dose: 20 mg Guaifenesin (Robitussin -) 10 ml PO Q4H PRN PRN Reason: COUGH Last Admin: 11/28/17 00:24 Dose: 10 ml Heparin Sodium (Porcine) (Heparin -) 5,000 unit SQ BID [facility] Last Admin: 11/28/17 22:30 Dose: 5,000 unit Insulin Aspart (Novolog Vial Sliding Scale -) 1 vial SQ ACHS [facility]; Protocol Last Admin: 11/29/17 06:15 Dose: 2 units Levothyroxine Sodium (Synthroid -) 100 mcg PO DAILY@0700 [facility] Last Admin: 11/29/17 06:15 Dose: 100 mcg Losartan Potassium (Cozaar -) 25 mg PO DAILY [facility] Last Admin: 11/28/17 09:19 Dose: 25 mg Methylprednisolone Sodium Succinate (Solu-Medrol -) 40 mg IVPB Q6H-IV [facility] Last Admin: 11/29/17 03:00 Dose: 40 mg Montelukast Sodium (Singulair -) 10 mg PO HS [facility] Last Admin: 11/28/17 22:30 Dose: 10 mg Pantoprazole Sodium (Protonix -) 40 mg PO DAILY [facility] Last Admin: 11/28/17 09:19 Dose: 40 mg Potassium Chloride (K-Dur -) 10 meq PO DAILY [facility] Last Admin: 11/28/17 09:19 Dose: 10 meq Roflumilast (Daliresp -) 500 mcg PO DAILY [facility] Last Admin: 11/28/17 09:19 Dose: 500 mcg - Objective Vital Signs: Vital Signs Temperature 98.4 F 11/28/17 07:51 Pulse Rate 74 11/29/17 00:00 Respiratory Rate 22 11/29/17 00:00 Blood Pressure 87/48 11/29/17 00:00 O2 Sat by Pulse Oximetry (%) 96 11/29/17 00:30 Constitutional: Yes: No Distress, Calm Eyes: Yes: Conjunctiva Clear HENT: Yes: Atraumatic Neck: Yes: Supple Cardiovascular: Yes: Regular Rate and Rhythm Respiratory: Yes: Rales, Wheezes Gastrointestinal: Yes: Soft. No: Tenderness Genitourinary: No: CVA Tenderness - Left, CVA Tenderness - Right Musculoskeletal: No: Joint Stiffness, Joint Swelling Extremities: No: Cold, Cool, Cyanosis Edema: No Integumentary: No: Rash, Venous Stasis Changes Neurological: Yes: WNL, Alert, Oriented ...Motor Strength: WNL Psychiatric: Yes: WNL, Alert, Oriented. No: Agitated, Suicidal Ideation Labs: CBC, BMP 11/28/17 05:15 11/28/17 05:15 - ....Imaging Other: Report Reviewed Assessment/Plan The patient is a 57 year old female with past medical history of COPD, HTN, pneumonia, CHF, hypothyroidism, chronic back pain, advanced COPD with history of prior intubation on O2 home 4L continuously, and ICU admission presents to the emergency department via ems with difficulty breathing. The patient reports congestion with production of green colored sputum not better wit po antibiotic for 1 day. tests meds consults reviewed and d/w pt Allergies: Penicillins; iv levaquin taper iv steroids, gastric PFX and check BGM while on high doses of steroids DVT PFX nebs chest CT when stable Bipap prn, O2 continuous pulm f/u prognosis guarded d/w pt and ER staff d/w ICU falls PFX pt advised do not get OOB alone, call for help if needs OOB
[2017-11-29 06:54] LABS: BASO % 0.2 % (0-2.0); HEMATOCRIT 37.9 % (32.4-45.2); HEMOGLOBIN 12.3 GM/dL (10.7-15.3); LYMPH % 2.3 % (8-40); MCH 30.8 pg (25.7-33.7); MCHC 32.5 g/dl (32.0-36.0); MEAN CELL VOLUME 94.8 fl (80-96); MEAN PLT VOLUME 8.3 fl (7.5-11.1); MONO % 4.2 % (3.8-10.2); NEUT % 93.3 % (42.8-82.8); PLATELET COUNT 237 K/MM3 (134-434); RBC 3.99 M/mm3 (3.60-5.2); WHITE BLOOD COUNT 10.3 K/mm3 (4.0-10.0)
[2017-11-29 07:24] LABS: ALBUMIN 2.7 g/dl (3.4-5.0); ALK PHOS 65 U/L (45-117); BILIRUBIN,TOTAL 0.2 mg/dL (0.2-1.0); BLOOD UREA NITROGEN 22 mg/dL (7-18); CALCIUM 9.1 mg/dL (8.5-10.1); CHLORIDE 88 mmol/L (98-107); CREATININE 0.6 mg/dL (0.55-1.02); GLUCOSE,RANDOM 148 mg/dL (74-106); SGOT/AST 12 U/L (15-37); SGPT/ALT 14 U/L (12-78); SODIUM 142 mmol/L (136-145); TOT PROT 5.7 g/dl (6.4-8.2)
[2017-11-29 07:41] LABS: ANION GAP 1 (8-16); CO2 53 mmol/L (21-32)
[2017-11-29] MEDS: ALBUTEROL SO4 2.5/IPRATROPIUM 0.5 INH SOL 3 ML VIAL.NEB. NEB SCH ×4 (08:15→21:14)
[2017-11-29 08:40] LABS: PLATELET ESTIMATE NORMAL
--- NOTE | 2017-11-29 09:09 | PN ---
Progress Note, Physician History of Present Illness: PULMONARY AWAKE,-RESP DISTRESS,O2 SAT 99% ON NASAL CANNULA - Current Medication List Current Medications: Active Medications Acetaminophen (Tylenol -) 650 mg PO Q6H PRN PRN Reason: PAIN LEVEL 1-5 Albuterol Sulfate (Ventolin 0.083% Nebulizer Soln -) 1 amp NEB Q4H PRN PRN Reason: WHEEZING Albuterol/Ipratropium (Duoneb -) 1 amp NEB RQID [facility] Last Admin: 11/28/17 21:00 Dose: 1 amp Escitalopram Oxalate (Lexapro -) 10 mg PO DAILY [facility] Last Admin: 11/28/17 09:19 Dose: 10 mg Furosemide (Lasix -) 20 mg PO DAILY [facility] Last Admin: 11/28/17 09:19 Dose: 20 mg Guaifenesin (Robitussin -) 10 ml PO Q4H PRN PRN Reason: COUGH Last Admin: 11/28/17 00:24 Dose: 10 ml Heparin Sodium (Porcine) (Heparin -) 5,000 unit SQ BID [facility] Last Admin: 11/28/17 22:30 Dose: 5,000 unit Insulin Aspart (Novolog Vial Sliding Scale -) 1 vial SQ ACHS [facility]; Protocol Last Admin: 11/29/17 06:15 Dose: 2 units Levothyroxine Sodium (Synthroid -) 100 mcg PO DAILY@0700 [facility] Last Admin: 11/29/17 06:15 Dose: 100 mcg Losartan Potassium (Cozaar -) 25 mg PO DAILY [facility] Last Admin: 11/28/17 09:19 Dose: 25 mg Methylprednisolone Sodium Succinate (Solu-Medrol -) 40 mg IVPB Q6H-IV [facility] Last Admin: 11/29/17 03:00 Dose: 40 mg Montelukast Sodium (Singulair -) 10 mg PO HS [facility] Last Admin: 11/28/17 22:30 Dose: 10 mg Pantoprazole Sodium (Protonix -) 40 mg PO DAILY [facility] Last Admin: 11/28/17 09:19 Dose: 40 mg Potassium Chloride (K-Dur -) 10 meq PO DAILY [facility] Last Admin: 11/28/17 09:19 Dose: 10 meq Roflumilast (Daliresp -) 500 mcg PO DAILY [facility] Last Admin: 11/28/17 09:19 Dose: 500 mcg - Objective Vital Signs: Vital Signs Temperature 98.4 F 11/28/17 07:51 Pulse Rate 74 11/29/17 00:00 Respiratory Rate 22 11/29/17 00:00 Blood Pressure 87/48 11/29/17 00:00 O2 Sat by Pulse Oximetry (%) 97 11/29/17 06:00 Constitutional: Yes: Well Nourished, Calm Eyes: Yes: WNL HENT: Yes: WNL Neck: Yes: WNL Cardiovascular: Yes: Regular Rate and Rhythm, S1, S2 Respiratory: Yes: Diminished Gastrointestinal: Yes: Normal Bowel Sounds, Soft Extremities: Yes: WNL Edema: No Labs: CBC, BMP 11/29/17 05:00 11/29/17 05:00 Problem List - Problems (1) Acute on chronic respiratory failure with hypoxia and hypercapnia Code(s): J96.21 - ACUTE AND CHRONIC RESPIRATORY FAILURE WITH HYPOXIA; J96.22 - ACUTE AND CHRONIC RESPIRATORY FAILURE WITH HYPERCAPNIA (2) Hypertension Code(s): I10 - ESSENTIAL (PRIMARY) HYPERTENSION (3) Hypothyroidism Code(s): E03.9 - HYPOTHYROIDISM, UNSPECIFIED Qualifiers: Hypothyroidism type: unspecified Qualified Code(s): E03.9 - Hypothyroidism , unspecified (4) CHF (congestive heart failure) Code(s): I50.9 - HEART FAILURE, UNSPECIFIED (5) COPD exacerbation Code(s): J44.1 - CHRONIC OBSTRUCTIVE PULMONARY DISEASE W (ACUTE) EXACERBATION Assessment/Plan IMP: Acute on chronic hypercapneic Respiratory Failure improving AE of COPD Acute on chronic bronchitis Former smoker PLAN: Nasal O2 NIPPV as needed BD TX standing and PRN Aspiration precautions VTE prophylaxis medrol taper Daliresp Singulair Chest ct in am DR MEDEIROS
[2017-11-29] MEDS: PANTOPRAZOLE 40 MG TABLET (FP) PO SCH (10:48)
[2017-11-29] MEDS: LOSARTAN POTASSIUM 25 MG TABLET PO SCH (10:48)
[2017-11-29] MEDS: HEPARIN NA (PORCINE) 5,000 UNITS/ML 1ML VIAL SQ SCH ×2 (10:48→21:21)
[2017-11-29] MEDS: FUROSEMIDE 20 MG TABLET (FP) PO SCH (10:48)
[2017-11-29] MEDS: ESCITALOPRAM OXALATE 10 MG TABLET (FP) PO SCH (10:49)
[2017-11-29] MEDS: POTASSIUM CHLORIDE TABS 10 MEQ TABLET.ER (FP) PO SCH (10:49)
[2017-11-29] MEDS: ROFLUMILAST 500 MCG TABLET PO SCH (10:49)
[2017-11-29] MEDS ORDERED: methylPREDNISolone NA SUCC 40 MG/1 ML VIAL IVPB SCH (11:15)
[2017-11-29] MEDS: MONTELUKAST NA 10 MG TABLET PO SCH (21:21)
[2017-11-29] MEDS: guaiFENesin 200 MG/10 ML 10 ML UNIT-DOSE CUPS PO PRN (21:40)
[2017-11-29] MEDS ORDERED: HEMOQUE TEST 1 EACH EACH ONE (22:02)
--- NOTE | 2017-11-29 22:29 | EKG ---
Test Reason : Blood Pressure : / mmHG Vent. Rate : 087 BPM Atrial Rate : 087 BPM P-R Int : 128 ms QRS Dur : 090 ms QT Int : 350 ms P-R-T Axes : 079 064 060 degrees QTc Int : 421 ms NORMAL SINUS RHYTHM NORMAL ECG WHEN COMPARED WITH ECG OF 25-NOV-2017 19:09, CRITERIA FOR LATERAL INFARCT ARE NO LONGER PRESENT T WAVE INVERSION NO LONGER EVIDENT IN LATERAL LEADS Confirmed by HERMES RICCI MD ([id number]) on 11/29/2017 10:28:49 PM Referred By: Confirmed By:HERMES RICCI MD
[2017-11-30] MEDS: methylPREDNISolone NA SUCC 40 MG/1 ML VIAL IVPB SCH ×3 (01:35→17:51)
[2017-11-30] MEDS: INSULIN SLIDING SCALE (NOVOLOG) 1 VIAL SQ SCH ×5 (05:41→22:05)
[2017-11-30] MEDS: LEVOTHYROXINE NA 100 MCG TABLET (FP) PO SCH (06:01)
--- NOTE | 2017-11-30 06:32 | PN ---
Progress Note, Physician Chief Complaint: in bed still coughing but feels better no CP/SOB on NC O2 off mask for now; will taper steroids; chest CT ordered - Current Medication List Current Medications: Active Medications Acetaminophen (Tylenol -) 650 mg PO Q6H PRN PRN Reason: PAIN LEVEL 1-5 Albuterol Sulfate (Ventolin 0.083% Nebulizer Soln -) 1 amp NEB Q4H PRN PRN Reason: WHEEZING Albuterol/Ipratropium (Duoneb -) 1 amp NEB RQID [facility] Last Admin: 11/29/17 21:14 Dose: 1 amp Escitalopram Oxalate (Lexapro -) 10 mg PO DAILY [facility] Last Admin: 11/29/17 10:49 Dose: 10 mg Furosemide (Lasix -) 20 mg PO DAILY [facility] Last Admin: 11/29/17 10:48 Dose: 20 mg Guaifenesin (Robitussin -) 10 ml PO Q4H PRN PRN Reason: COUGH Last Admin: 11/29/17 21:40 Dose: 10 ml Heparin Sodium (Porcine) (Heparin -) 5,000 unit SQ BID [facility] Last Admin: 11/29/17 21:21 Dose: 5,000 unit Insulin Aspart (Novolog Vial Sliding Scale -) 1 vial SQ ACHS [facility]; Protocol Last Admin: 11/30/17 06:01 Dose: 2 units Levothyroxine Sodium (Synthroid -) 100 mcg PO DAILY@0700 [facility] Last Admin: 11/30/17 06:01 Dose: 100 mcg Losartan Potassium (Cozaar -) 25 mg PO DAILY [facility] Methylprednisolone Sodium Succinate (Solu-Medrol -) 40 mg IVPB Q8H-IV [facility] Last Admin: 11/30/17 01:35 Dose: 40 mg Montelukast Sodium (Singulair -) 10 mg PO HS [facility] Last Admin: 11/29/17 21:21 Dose: 10 mg Pantoprazole Sodium (Protonix -) 40 mg PO DAILY [facility] Last Admin: 11/29/17 10:48 Dose: 40 mg Potassium Chloride (K-Dur -) 10 meq PO DAILY [facility] Last Admin: 11/29/17 10:49 Dose: 10 meq Roflumilast (Daliresp -) 500 mcg PO DAILY [facility] Last Admin: 11/29/17 10:49 Dose: 500 mcg - Objective Vital Signs: Vital Signs Temperature 98.0 F 11/30/17 04:57 Pulse Rate 68 11/30/17 04:57 Respiratory Rate 21 11/30/17 04:57 Blood Pressure 122/64 11/30/17 04:57 O2 Sat by Pulse Oximetry (%) 96 11/29/17 23:33 Constitutional: Yes: No Distress, Calm Eyes: Yes: Conjunctiva Clear HENT: Yes: Atraumatic Neck: Yes: Supple Cardiovascular: Yes: Regular Rate and Rhythm Respiratory: Yes: CTA Bilaterally Gastrointestinal: Yes: Soft. No: Distention, Tenderness Genitourinary: No: CVA Tenderness - Left, CVA Tenderness - Right Musculoskeletal: No: Joint Stiffness, Joint Swelling Extremities: No: Cold, Cool, Cyanosis Edema: No Integumentary: No: Rash, Venous Stasis Changes Neurological: Yes: WNL, Alert, Oriented ...Motor Strength: WNL Psychiatric: Yes: WNL, Alert, Oriented. No: Agitated, Suicidal Ideation Labs: CBC, BMP 11/29/17 05:00 11/29/17 05:00 - ....Imaging Other: Report Reviewed Assessment/Plan The patient is a 57 year old female with past medical history of COPD, HTN, pneumonia, CHF, hypothyroidism, chronic back pain, advanced COPD with history of prior intubation on O2 home 4L continuously, and ICU admission presents to the emergency department via ems with difficulty breathing. The patient reports congestion with production of green colored sputum not better with po antibiotic for 1 day. tests meds consults reviewed and d/w pt Allergies: Penicillins; iv levaquin taper iv steroids, chest CT ordered gastric PFX and check BGM while on high doses of steroids DVT PFX nebs Bipap prn, O2 continuous pulm f/u prognosis guarded d/w pt and ER staff d/w ICU falls PFX pt advised do not get OOB alone, call for help if needs OOB
[2017-11-30] MEDS: ALBUTEROL SO4 2.5/IPRATROPIUM 0.5 INH SOL 3 ML VIAL.NEB. NEB SCH ×4 (08:40→20:51)
[2017-11-30] MEDS ORDERED: PT OWN MED DRAWER 7, Y5N ONE (09:04)
[2017-11-30] MEDS: FUROSEMIDE 20 MG TABLET (FP) PO SCH (09:34)
[2017-11-30] MEDS: HEPARIN NA (PORCINE) 5,000 UNITS/ML 1ML VIAL SQ SCH ×2 (09:34→22:06)
[2017-11-30] MEDS: ROFLUMILAST 500 MCG TABLET PO SCH (09:34)
[2017-11-30] MEDS: PANTOPRAZOLE 40 MG TABLET (FP) PO SCH (09:34)
[2017-11-30] MEDS: POTASSIUM CHLORIDE TABS 10 MEQ TABLET.ER (FP) PO SCH (09:34)
[2017-11-30] MEDS: ESCITALOPRAM OXALATE 10 MG TABLET (FP) PO SCH (09:34)
--- NOTE | 2017-11-30 10:23 | PN ---
Progress Note, Physician History of Present Illness: PULMONARY ALERT,OOB-CHAIR,-RESP DISTRESS ON NASAL O2 - Current Medication List Current Medications: Active Medications Acetaminophen (Tylenol -) 650 mg PO Q6H PRN PRN Reason: PAIN LEVEL 1-5 Albuterol Sulfate (Ventolin 0.083% Nebulizer Soln -) 1 amp NEB Q4H PRN PRN Reason: WHEEZING Albuterol/Ipratropium (Duoneb -) 1 amp NEB RQID [facility] Last Admin: 11/30/17 08:40 Dose: 1 amp Escitalopram Oxalate (Lexapro -) 10 mg PO DAILY [facility] Last Admin: 11/30/17 09:34 Dose: 10 mg Furosemide (Lasix -) 20 mg PO DAILY [facility] Last Admin: 11/30/17 09:34 Dose: 20 mg Guaifenesin (Robitussin -) 10 ml PO Q4H PRN PRN Reason: COUGH Last Admin: 11/29/17 21:40 Dose: 10 ml Heparin Sodium (Porcine) (Heparin -) 5,000 unit SQ BID [facility] Last Admin: 11/30/17 09:34 Dose: 5,000 unit Insulin Aspart (Novolog Vial Sliding Scale -) 1 vial SQ ACHS [facility]; Protocol Last Admin: 11/30/17 06:01 Dose: 2 units Levothyroxine Sodium (Synthroid -) 100 mcg PO DAILY@0700 [facility] Last Admin: 11/30/17 06:01 Dose: 100 mcg Losartan Potassium (Cozaar -) 25 mg PO DAILY [facility] Methylprednisolone Sodium Succinate (Solu-Medrol -) 40 mg IVPB Q8H-IV [facility] Last Admin: 11/30/17 09:34 Dose: 40 mg Montelukast Sodium (Singulair -) 10 mg PO HS [facility] Last Admin: 11/29/17 21:21 Dose: 10 mg Pantoprazole Sodium (Protonix -) 40 mg PO DAILY [facility] Last Admin: 11/30/17 09:34 Dose: 40 mg Potassium Chloride (K-Dur -) 10 meq PO DAILY [facility] Last Admin: 11/30/17 09:34 Dose: 10 meq Roflumilast (Daliresp -) 500 mcg PO DAILY [facility] Last Admin: 11/30/17 09:34 Dose: 500 mcg - Objective Vital Signs: Vital Signs Temperature 98.2 F 11/30/17 09:32 Pulse Rate 90 11/30/17 09:32 Respiratory Rate 20 11/30/17 09:32 Blood Pressure 109/90 11/30/17 09:32 O2 Sat by Pulse Oximetry (%) 95 11/30/17 09:06 Constitutional: Yes: Well Nourished, Calm Eyes: Yes: WNL HENT: Yes: WNL Neck: Yes: WNL Cardiovascular: Yes: Regular Rate and Rhythm, S1, S2 Respiratory: Yes: Diminished, Wheezes (FEW SCATTERED WHEEZES) Gastrointestinal: Yes: Normal Bowel Sounds, Soft Extremities: Yes: WNL Edema: No Labs: CBC, BMP Problem List - Problems (1) Acute on chronic respiratory failure with hypoxia and hypercapnia Code(s): J96.21 - ACUTE AND CHRONIC RESPIRATORY FAILURE WITH HYPOXIA; J96.22 - ACUTE AND CHRONIC RESPIRATORY FAILURE WITH HYPERCAPNIA (2) Hypertension Code(s): I10 - ESSENTIAL (PRIMARY) HYPERTENSION (3) Hypothyroidism Code(s): E03.9 - HYPOTHYROIDISM, UNSPECIFIED Qualifiers: Hypothyroidism type: unspecified Qualified Code(s): E03.9 - Hypothyroidism , unspecified (4) CHF (congestive heart failure) Code(s): I50.9 - HEART FAILURE, UNSPECIFIED (5) COPD exacerbation Code(s): J44.1 - CHRONIC OBSTRUCTIVE PULMONARY DISEASE W (ACUTE) EXACERBATION Assessment/Plan IMP: Acute on chronic hypercapneic Respiratory Failure improving AE of COPD Acute on chronic bronchitis Former smoker PLAN: Nasal O2 NIPPV as needed BD TX standing and PRN Aspiration precautions VTE prophylaxis medrol taper Nancy MEDEIROS
[2017-11-30 12:04] VITALS: BMI 34.9
[2017-11-30] MEDS: LOSARTAN POTASSIUM 25 MG TABLET PO SCH (12:34)
[2017-11-30] MEDS: MONTELUKAST NA 10 MG TABLET PO SCH (22:05)
[2017-11-30] MEDS: guaiFENesin 200 MG/10 ML 10 ML UNIT-DOSE CUPS PO PRN (22:12)
[2017-12-01] MEDS: methylPREDNISolone NA SUCC 40 MG/1 ML VIAL IVPB SCH ×2 (02:00→21:43)
--- NOTE | 2017-12-01 06:07 | PN ---
Progress Note, Physician Chief Complaint: feels better; chest CT d/w pt needs f/u 2- months outpt CT and f/u with PCP and pulm dr Parrish in few weeks of DC possible DC in am - Current Medication List Current Medications: Active Medications Acetaminophen (Tylenol -) 650 mg PO Q6H PRN PRN Reason: PAIN LEVEL 1-5 Albuterol Sulfate (Ventolin 0.083% Nebulizer Soln -) 1 amp NEB Q4H PRN PRN Reason: WHEEZING Albuterol/Ipratropium (Duoneb -) 1 amp NEB RQID [facility] Last Admin: 11/30/17 20:51 Dose: 1 amp Escitalopram Oxalate (Lexapro -) 10 mg PO DAILY [facility] Last Admin: 11/30/17 09:34 Dose: 10 mg Furosemide (Lasix -) 20 mg PO DAILY [facility] Last Admin: 11/30/17 09:34 Dose: 20 mg Guaifenesin (Robitussin -) 10 ml PO Q4H PRN PRN Reason: COUGH Last Admin: 11/30/17 22:12 Dose: 10 ml Heparin Sodium (Porcine) (Heparin -) 5,000 unit SQ BID [facility] Last Admin: 11/30/17 22:06 Dose: 5,000 unit Insulin Aspart (Novolog Vial Sliding Scale -) 1 vial SQ ACHS [facility]; Protocol Last Admin: 11/30/17 22:05 Dose: Not Given Levothyroxine Sodium (Synthroid -) 100 mcg PO DAILY@0700 [facility] Last Admin: 11/30/17 06:01 Dose: 100 mcg Losartan Potassium (Cozaar -) 25 mg PO DAILY [facility] Last Admin: 11/30/17 12:34 Dose: 25 mg Methylprednisolone Sodium Succinate (Solu-Medrol -) 40 mg IVPB Q8H-IV [facility] Last Admin: 12/01/17 02:00 Dose: 40 mg Montelukast Sodium (Singulair -) 10 mg PO HS [facility] Last Admin: 11/30/17 22:05 Dose: 10 mg Pantoprazole Sodium (Protonix -) 40 mg PO DAILY [facility] Last Admin: 11/30/17 09:34 Dose: 40 mg Potassium Chloride (K-Dur -) 10 meq PO DAILY [facility] Last Admin: 11/30/17 09:34 Dose: 10 meq Roflumilast (Daliresp -) 500 mcg PO DAILY [facility] Last Admin: 11/30/17 09:34 Dose: 500 mcg - Objective Vital Signs: Vital Signs Temperature 98.8 F 11/30/17 17:00 Pulse Rate 78 11/30/17 17:00 Respiratory Rate 20 11/30/17 17:00 Blood Pressure 103/60 11/30/17 17:00 O2 Sat by Pulse Oximetry (%) 97 12/01/17 00:37 Constitutional: Yes: No Distress, Calm Eyes: Yes: Conjunctiva Clear HENT: Yes: Atraumatic Neck: Yes: Supple Cardiovascular: Yes: Regular Rate and Rhythm Respiratory: Yes: CTA Bilaterally Gastrointestinal: Yes: Soft. No: Distention, Tenderness Genitourinary: No: CVA Tenderness - Left, CVA Tenderness - Right Musculoskeletal: No: Joint Stiffness, Joint Swelling Extremities: No: Cold, Cool, Cyanosis Edema: No Integumentary: No: Rash, Venous Stasis Changes Neurological: Yes: WNL, Alert, Oriented ...Motor Strength: WNL Psychiatric: Yes: WNL, Alert, Oriented. No: Agitated, Suicidal Ideation Labs: CBC, BMP 11/29/17 05:00 11/29/17 05:00 - ....Imaging Other: Report Reviewed Assessment/Plan The patient is a 57 year old female with past medical history of COPD, HTN, pneumonia, CHF, hypothyroidism, chronic back pain, advanced COPD with history of prior intubation on O2 home 4L continuously, and ICU admission presents to the emergency department via ems with difficulty breathing. The patient reports congestion with production of green colored sputum not better with po antibiotic for 1 day. tests meds consults reviewed and d/w pt Allergies: Penicillins; iv levaquin taper iv steroids, possible DC home in am on po steroids if stable chest CT d/w pt needs 2-3 months f/u d/w pt and PCP gastric PFX and check BGM while on high doses of steroids DVT PFX nebs Bipap prn, O2 continuous pulm f/u prognosis guarded d/w pt and ER staff d/w ICU falls PFX pt advised do not get OOB alone, call for help if needs OOB
[2017-12-01] MEDS: LEVOTHYROXINE NA 100 MCG TABLET (FP) PO SCH (06:43)
[2017-12-01] MEDS: INSULIN SLIDING SCALE (NOVOLOG) 1 VIAL SQ SCH ×4 (06:44→22:13)
[2017-12-01 06:47] LABS: BASO % 0.1 % (0-2.0); HEMATOCRIT 38.2 % (32.4-45.2); HEMOGLOBIN 12.5 GM/dL (10.7-15.3); LYMPH % 3.2 % (8-40); MCH 30.8 pg (25.7-33.7); MCHC 32.7 g/dl (32.0-36.0); MEAN CELL VOLUME 94.4 fl (80-96); MEAN PLT VOLUME 8.3 fl (7.5-11.1); MONO % 4.7 % (3.8-10.2); PLATELET COUNT 196 K/MM3 (134-434); RBC 4.05 M/mm3 (3.60-5.2); RDW 12.9 % (11.6-15.6); WHITE BLOOD COUNT 10.7 K/mm3 (4.0-10.0)
[2017-12-01 07:07] LABS: ALBUMIN 2.7 g/dl (3.4-5.0); BLOOD UREA NITROGEN 26 mg/dL (7-18); CALCIUM 8.7 mg/dL (8.5-10.1); CHLORIDE 90 mmol/L (98-107); GLUCOSE,RANDOM 137 mg/dL (74-106); POTASSIUM 3.9 mmol/L (3.5-5.1); SODIUM 139 mmol/L (136-145)
[2017-12-01 07:11] LABS: ALK PHOS 57 U/L (45-117); BILIRUBIN,TOTAL 0.3 mg/dL (0.2-1.0); CREATININE 0.6 mg/dL (0.55-1.02); SGOT/AST 11 U/L (15-37); SGPT/ALT 16 U/L (12-78); TOT PROT 5.5 g/dl (6.4-8.2)
[2017-12-01] MEDS: ALBUTEROL SO4 2.5/IPRATROPIUM 0.5 INH SOL 3 ML VIAL.NEB. NEB SCH ×4 (07:45→20:40)
[2017-12-01 09:12] LABS: ANION GAP -6 (8-16); CO2 55 mmol/L (21-32)
[2017-12-01] MEDS ORDERED: methylPREDNISolone NA SUCC 40 MG/1 ML VIAL IVPB SCH (09:45)
[2017-12-01] MEDS: LOSARTAN POTASSIUM 25 MG TABLET PO SCH (10:26)
[2017-12-01] MEDS: PANTOPRAZOLE 40 MG TABLET (FP) PO SCH (10:29)
[2017-12-01] MEDS: ESCITALOPRAM OXALATE 10 MG TABLET (FP) PO SCH (10:29)
[2017-12-01] MEDS: ROFLUMILAST 500 MCG TABLET PO SCH (10:29)
[2017-12-01] MEDS: POTASSIUM CHLORIDE TABS 10 MEQ TABLET.ER (FP) PO SCH (10:29)
[2017-12-01] MEDS: FUROSEMIDE 20 MG TABLET (FP) PO SCH (10:29)
[2017-12-01] MEDS: HEPARIN NA (PORCINE) 5,000 UNITS/ML 1ML VIAL SQ SCH ×2 (10:30→21:42)
--- NOTE | 2017-12-01 12:41 | PN ---
Progress Note (short form) - Note Progress Note: Patient seen and examined in the Telemetry. Awake and alert. Overall clinically improving. No CP. Cough is better. Intake & Output 11/28/17 11/29/1718 12/01/17 23:59 23:59 23:59 23:59 Intake Total 150 210 130 Balance 150 210 130 Weight 172 lb 2 oz 173 lb 1.006 oz 173 lb 168 lb Last Vital Signs Temp Pulse Resp BP Pulse Ox 98.1 F 88 22 95/60 88 L 12/01/17 09:00 12/01/17 09:00 12/01/17 09:00 12/01/17 09:00 12/01/17 09:00 Active Medications Acetaminophen (Tylenol -) 650 mg PO Q6H PRN PRN Reason: PAIN LEVEL 1-5 Albuterol Sulfate (Ventolin 0.083% Nebulizer Soln -) 1 amp NEB Q4H PRN PRN Reason: WHEEZING Albuterol/Ipratropium (Duoneb -) 1 amp NEB RQID [facility] Last Admin: 12/01/17 11:25 Dose: 1 amp Escitalopram Oxalate (Lexapro -) 10 mg PO DAILY [facility] Last Admin: 12/01/17 10:29 Dose: 10 mg Furosemide (Lasix -) 20 mg PO DAILY [facility] Last Admin: 12/01/17 10:29 Dose: 20 mg Guaifenesin (Robitussin -) 10 ml PO Q4H PRN PRN Reason: COUGH Last Admin: 11/30/17 22:12 Dose: 10 ml Heparin Sodium (Porcine) (Heparin -) 5,000 unit SQ BID [facility] Last Admin: 12/01/17 10:30 Dose: 5,000 unit Insulin Aspart (Novolog Vial Sliding Scale -) 1 vial SQ ACHS [facility]; Protocol Last Admin: 12/01/17 11:44 Dose: Not Given Levothyroxine Sodium (Synthroid -) 100 mcg PO DAILY@0700 [facility] Last Admin: 12/01/17 06:43 Dose: 100 mcg Losartan Potassium (Cozaar -) 25 mg PO DAILY [facility] Last Admin: 12/01/17 10:26 Dose: 25 mg Methylprednisolone Sodium Succinate (Solu-Medrol -) 40 mg IVPB BID [facility] Montelukast Sodium (Singulair -) 10 mg PO HS [facility] Last Admin: 11/30/17 22:05 Dose: 10 mg Pantoprazole Sodium (Protonix -) 40 mg PO DAILY [facility] Last Admin: 12/01/17 10:29 Dose: 40 mg Potassium Chloride (K-Dur -) 10 meq PO DAILY [facility] Last Admin: 12/01/17 10:29 Dose: 10 meq Roflumilast (Daliresp -) 500 mcg PO DAILY [facility] Last Admin: 12/01/17 10:29 Dose: 500 mcg GENERAL: Awake, alert, on NC O2 HEAD: No signs of trauma EYES: PERRLA, EOMI, sclera anicteric, conjunctiva clear ENT: (-) Lesions. Moist mucosa NECK: Normal ROM, supple, no lymphadenopathy, JVD, or masses LUNGS: No expiratory wheeze noted HEART: Regular rate and rhythm, normal S1 and S2, no murmurs, rubs or gallops ABDOMEN: Soft, nontender, normoactive bowel sounds. No guarding, no rebound. No masses EXTREMITIES: Normal range of motion, no edema. No clubbing or cyanosis. No cords, erythema, or tenderness NEUROLOGICAL: Non-focal SKIN: Warm, Dry, normal turgor, no rashes or lesions noted. Laboratory Results - last 24 hr 12/01/17 12/01/17 06:13 06:13 WBC 10.7 H RBC 4.05 Hgb 12.5 Hct 38.2 MCV 94.4 MCH 30.8 MCHC 32.7 RDW 12.9 Plt Count 196 MPV 8.3 Absolute Neuts (auto) 9.8 Neutrophils % 92.0 H Lymphocytes % 3.2 L D Monocytes % 4.7 Eosinophils % 0.0 Basophils % 0.1 Nucleated RBC % 0 Sodium 139 Potassium 3.9 Chloride 90 L Carbon Dioxide 55 H Anion Gap -6 L BUN 26 H Creatinine 0.6 Creat Clearance w eGFR > 60 Random Glucose 137 H Calcium 8.7 Total Bilirubin 0.3 D AST 11 L ALT 16 Alkaline Phosphatase 57 Total Protein 5.5 L Albumin 2.7 L IMP: Acute on chronic hypercapneic Respiratory Failure AE of COPD Acute on chronic bronchitis Former smoker Above listed medical history PLAN: NC O2 as tolerated NIPPV as needed to decrease BD TX standing and PRN Aspiration precautions VTE prophylaxis Daliresp Singulair Noted Medrol decreased today: can likely change to Prednisone in the AM if she remains stable Will benefit from home NIPPV or Trilogy device due to chronic respiratory failure (baseline PCO2 is 80mmHg) Dr Jennings
[2017-12-01] MEDS: MONTELUKAST NA 10 MG TABLET PO SCH (21:42)
--- NOTE | 2017-12-02 06:11 | DS ---
Physical Examination Vital Signs: Vital Signs Temperature 98.1 F 12/02/17 01:00 Pulse Rate 69 12/02/17 01:00 Respiratory Rate 20 12/02/17 01:00 Blood Pressure 120/54 12/02/17 01:00 O2 Sat by Pulse Oximetry (%) 96 12/02/17 04:00 Findings/Remarks: feels well wants to go home at bedside d/w pt tapering doses steorids, meds, and need to repeat chest CT in 2 months f/ u lung opacities r/o malignancy / PNA she is aware she understands it and said she will f/u CT in months and she will f/u with PCP and pulm in 1-2 weeks outpt Constitutional: Yes: No Distress, Calm Eyes: Yes: Conjunctiva Clear HENT: Yes: Atraumatic Neck: Yes: Supple Cardiovascular: Yes: Regular Rate and Rhythm Respiratory: Yes: CTA Bilaterally Gastrointestinal: Yes: Soft. No: Distention Renal/: No: CVA Tenderness - Left, CVA Tenderness - Right Musculoskeletal: No: Joint Stiffness, Joint Swelling Extremities: No: Cold, Cool, Cyanosis Edema: No Integumentary: No: Rash, Venous Stasis Changes Neurological: Yes: WNL, Alert, Oriented ...Motor Strength: WNL Psychiatric: Yes: WNL, Alert, Oriented. No: Agitated, Suicidal Ideation Labs: CBC, BMP 12/01/17 06:13 12/01/17 06:13 Discharge Summary Reason For Visit: OBSTRUCTIVE CHRONIC BRONCHITIS WITH EXACERBATION Current Active Problems Bronchitis (Acute) COPD exacerbation (Acute) Procedures: Principal: admitted with PNA and acute COPD exac with acute respiratiory failure; needed ICU on BIpap support Other Procedures: IV sterodis, IV antibiotics; nebs; O2. seen by pulmnoary ICU Hospital Course: improved with above; DC home on tapering doses steroids and nebs, has home O2 continuous f/u as advised; RTER if worse or recurrent c/o d/w pt and and pt's PCP f/u needed pt is aware. Condition: Stable - Instructions Diet, Activity, Other Instructions: f/u PCP and pulmonary dr in 1-[address] no ivc in 2 months f/u lung opacities; taper steroids as advised; O2 NC continuous use falls PFX RTER if worse or recurrent c/o Referrals: Laura Navarro MD [Primary Care Provider] - Max Parrish MD [Staff Physician] - Disposition: VNS/HOME HEALTH CARE - Home Medications Comprehensive Discharge Medication List: Ambulatory Orders Fenofibrate [Lofibra] 160 mg PO DAILY 10/13/15 Albuterol 0.083% Nebulizer Colette [Ventolin 0.083% Nebulizer Soln -] 1 neb NEB Q4H #0 tab 06/24/17 Levothyroxine [Synthroid -] 100 mcg PO DAILY@0700 tablet 06/24/17 Losartan Potassium [Cozaar -] 25 mg PO DAILY #30 tablet 06/24/17 Montelukast Na [Singulair -] 10 mg PO HS #0 tab 06/24/17 Roflumilast [Daliresp] 500 mcg PO DAILY #30 tablet 06/24/17 Escitalopram Oxalate [Lexapro -] 10 mg PO DAILY 08/31/17 Potassium Chloride [K-Dur -] 10 meq PO DAILY 08/31/17 Acetaminophen [Tylenol .Regular Strength -] 650 mg PO Q6H PRN tablet 09/03/17 Albuterol 2.5/Ipratropium 0.5 [Duoneb -] 1 amp NEB RQID amp 09/03/17 Furosemide [Lasix -] 20 mg PO DAILY 11/25/17 Levofloxacin [Levaquin] 500 mg PO DAILY 11/25/17 predniSONE [Deltasone -] 5 mg PO DAILY 11/25/17
[2017-12-02] MEDS: INSULIN SLIDING SCALE (NOVOLOG) 1 VIAL SQ SCH (06:40)
[2017-12-02] MEDS: LEVOTHYROXINE NA 100 MCG TABLET (FP) PO SCH (06:40)
[2017-12-02] MEDS: ALBUTEROL SO4 2.5/IPRATROPIUM 0.5 INH SOL 3 ML VIAL.NEB. NEB SCH (08:00)
[2017-12-02 09:12] VITALS: PULSE 80
[2017-12-02] MEDS: LOSARTAN POTASSIUM 25 MG TABLET PO SCH (09:32)
[2017-12-02] MEDS: FUROSEMIDE 20 MG TABLET (FP) PO SCH (09:33)
[2017-12-02] MEDS: PANTOPRAZOLE 40 MG TABLET (FP) PO SCH (09:33)
[2017-12-02] MEDS: ROFLUMILAST 500 MCG TABLET PO SCH (09:33)
[2017-12-02] MEDS: ESCITALOPRAM OXALATE 10 MG TABLET (FP) PO SCH (09:33)
[2017-12-02] MEDS: POTASSIUM CHLORIDE TABS 10 MEQ TABLET.ER (FP) PO SCH (09:33)
[2017-12-02] MEDS: HEPARIN NA (PORCINE) 5,000 UNITS/ML 1ML VIAL SQ SCH (09:33)
[2017-12-02] MEDS: methylPREDNISolone NA SUCC 40 MG/1 ML VIAL IVPB SCH ×2 (09:34→09:39)
[2017-12-02 10:42] VITALS: BP 122/80; TEMP 98.2
[2017-12-02] MEDS ORDERED: predniSONE 20 MG TABLET (UD) PO SCH (10:45)
== END 2017-12-02 11:52 | disposition home health service (06) | DRG 189 ==
LOC: JER 18:32 → JERBED 21:10 → JICU 11-26 16:41 → J2W 11-28 02:26
PROVIDERS: ADMIT Internal Medicine; ATTEND Internal Medicine
PROC: 5A09457 Assistance with Respiratory Ventilation, 24-96 Consecutive Hours, Continuous Positive Airway Pressure (ICD-10-PCS; principal; 2017-11-26)
DX: J96.22 Acute and chronic respiratory failure with hypercapnia (principal); J18.9 Pneumonia, unspecified organism; J44.1 Chronic obstructive pulmonary disease with (acute) exacerbation; J44.0 Chronic obstructive pulmonary disease with (acute) lower respiratory infection; I50.32 Chronic diastolic (congestive) heart failure; J20.9 Acute bronchitis, unspecified; E03.9 Hypothyroidism, unspecified; M54.5 Low back pain; Z87.891 Personal history of nicotine dependence; Z99.81 Dependence on supplemental oxygen; Z88.0 Allergy status to penicillin; F32.9 Major depressive disorder, single episode, unspecified; I11.0 Hypertensive heart disease with heart failure
CPT/HCPCS: 36415; 36600; 71045-TC-FY; 71250-TC; 80053; 81003; 81015; 82550; 82803; 82962; 84439; 84443; 84481; 84484; 85025; 87086; 93005; 93010; 94640; 94660; 99285-25; J1644; J7620

== ENCOUNTER 2018-01-12 17:53 | Inpatient (IN) | payer OTHER ==
[2018-01-12] MEDS ORDERED: MAGNESIUM SULF 50% (8.12 MEQ/2 ML-1 GM VIAL) IVPB ONE (19:44)
[2018-01-12] MEDS ORDERED: ALBUTEROL SO4 2.5/IPRATROPIUM 0.5 INH SOL 3 ML VIAL.NEB. NEB STA ×2 (19:55)
--- NOTE | 2018-01-12 19:55 | PDOC ---
History of Present Illness - General Exam Limitations: No Limitations - History of Present Illness Initial Comments: 01/12/18 20:29 Patient is a 57 year old female with a significant past medical history of COPD , HTN, pneumonia, CHF, hypothyroidism, chronic back pain, COPD O2 dep, with history of prior intubation, on home 4L continuously, and ICU admission who presents to the ED with complaints of shortness of breath that began yesterday afternoon. As Per patient's patient has been using a new breathing machine that usually fluctuates with her O2 stats. Patient currently does not have any physical complaints while in ED but does appear somnolent. Denies chest pain, Sob. Denies fevers,chills. Denies nausea, vomiting. Denies contact with sick individuals, out of state travelling. Denies dysuria, hematuria. Denies constipation, diarrhea. Denies any other symptoms. Allergies: Penicillins Social history: Former smoker. No alcohol. No illicit drugs. Surgical history: None PMD: Dr. Laura Navarro <Ramy Pratt - Last Filed: 01/12/18 20:30> - General History Source: Patient <Mukund Hernandez - Last Filed: 01/12/18 21:21> - General Chief Complaint: Shortness of Breath Stated Complaint: DIFFICULTY BREATHING Time Seen by Provider: 01/12/18 19:55 Past History <Ramy Pratt - Last Filed: 01/12/18 20:30> - Past Medical History COPD: Yes DVT: No HTN: Yes Thyroid Disease: Yes - Immunization History Immunization Up to Date: Yes - Suicide/Smoking/Psychosocial Hx Smoking History: Unknown if ever smoked Have you smoked in the past 12 months: No If you are a former smoker, when did you quit?: YEARS Information on smoking cessation initiated: No Hx Alcohol Use: No Drug/Substance Use Hx: No Substance Use Type: None <Mukund Hernandez - Last Filed: 01/12/18 21:21> - Past Medical History Allergies/Adverse Reactions: Allergies Allergy/AdvReac Type Severity Reaction Status Date / Time Penicillins Allergy Severe Difficulty Verified 01/12/18 18:19 Breathing Home Medications: Ambulatory Orders Fenofibrate [Lofibra] 160 mg PO DAILY 10/13/15 Albuterol 0.083% Nebulizer Colette [Ventolin 0.083% Nebulizer Soln -] 1 neb NEB Q4H #0 tab 06/24/17 Levothyroxine [Synthroid -] 100 mcg PO DAILY@0700 tablet 06/24/17 Losartan Potassium [Cozaar -] 25 mg PO DAILY #30 tablet 06/24/17 Montelukast Na [Singulair -] 10 mg PO HS #0 tab 06/24/17 Roflumilast [Daliresp] 500 mcg PO DAILY #30 tablet 06/24/17 Escitalopram Oxalate [Lexapro -] 10 mg PO DAILY 08/31/17 Potassium Chloride [K-Dur -] 10 meq PO DAILY 08/31/17 Acetaminophen [Tylenol .Regular Strength -] 650 mg PO Q6H PRN tablet 09/03/17 Albuterol 2.5/Ipratropium 0.5 [Duoneb -] 1 amp NEB RQID amp 09/03/17 Furosemide [Lasix -] 20 mg PO DAILY 11/25/17 Guaifenesin [Robitussin -] 10 ml PO Q4H PRN cup 12/02/17 Levofloxacin [Levaquin] 500 mg PO DAILY #3 tab 12/02/17 predniSONE [Deltasone -] 5 mg PO DAILY #90 tablet 12/02/17 Review of Systems - Review of Systems Able to Perform ROS?: Yes Comments:: 01/12/18 20:29 CONSTITUTIONAL: Absent: fever, no chills, no fatigue EYES: Absent: visual changes ENT: Absent: ear pain, no sore throat CARDIOVASCULAR: Absent: chest pain, no palpitations RESPIRATORY: +Shortness of breath. Absent: cough, no SOB GI: Absent: abdominal pain, no nausea, no vomiting, no constipation, no diarrhea GENITOURINARY: Absent: dysuria, no frequency, no hematuria MUSCULOSKELETAL: Absent: back pain, no arthralgia, no myalgia SKIN: Absent: rash All Other Systems: Reviewed and Negative <Ramy Pratt - Last Filed: 01/12/18 20:30> *Physical Exam - Vital Signs Last Vital Signs Temp Pulse Resp BP Pulse Ox 98.7 F 91 H 16 144/61 98 01/12/18 17:53 01/12/18 17:53 01/12/18 17:53 01/12/18 17:53 01/12/18 20:00 - Physical Exam Comments: 01/12/18 20:30 GENERAL: +Appears somnolent. Well-appearing, well-nourished. No apparent distress. HEENT: Normocephalic, atraumatic. PERRL, EOM intact. CARDIOVASCULAR: Normal S1, S2. Regular rate and rhythm. PULMONARY: +Decreased breath sounds. Clear to auscultation bilaterally. ABDOMEN: Soft, non-distended, non-tender. EXTREMITIES: Normal ROM in all four extremities. No gross deformities. SKIN: Warm, dry. No rash NEUROLOGICAL: No focal neurological deficits. <Ramy Pratt - Last Filed: 01/12/18 20:30> - Vital Signs Last Vital Signs Temp Pulse Resp BP Pulse Ox 98.7 F 91 H 16 144/61 100 01/12/18 17:53 01/12/18 17:53 01/12/18 17:53 01/12/18 17:53 01/12/18 17:53 <Mukund Hernandez - Last Filed: 01/12/18 21:21> Heart Score/ECG Review - ECG Intrepretation Comment:: 01/12/18 20:31 Completed @ 18:06:37 Normal Sinus Rhythm Normal ECG Vent. rate 99 bpm NV interval 124 ms QRS duration 72 ms <Ramy Pratt - Last Filed: 01/12/18 20:30> ED Treatment Course - LABORATORY CBC & Chemistry Diagram: 01/12/18 20:00 01/12/18 20:00 - ADDITIONAL ORDERS Additional order review: 01/12/18 20:00 RBC 3.99 MCV 99.2 H MCHC 31.1 L RDW 14.0 MPV 9.3 D Neutrophils % No Result Required. Lymphocytes % No Result Required. <Ramy Pratt - Last Filed: 01/12/18 20:30> - LABORATORY CBC & Chemistry Diagram: 01/12/18 20:00 01/12/18 20:00 - RADIOLOGY Radiology Studies Ordered: Category Date Time Status CHEST X-RAY PORTABLE* [RAD] Stat Radiology 01/12/18 19:41 Ordered <Mukund Hernandez - Last Filed: 01/12/18 21:21> *DC/Admit/Observation/Transfer - Attestations Scribe Attestion: 01/12/18 20:30 Documentation prepared by Ramy Pratt, acting as medical policy specialist for Mukund Hernandez DO. <Ramy Pratt - Last Filed: 01/12/18 20:30> - Discharge Dispostion Decision to Admit order: Yes <Mukund Hernandez - Last Filed: 01/12/18 21:21> Diagnosis at time of Disposition: COPD exacerbation - Discharge Dispostion Condition at time of disposition: Stable - Referrals Referrals: Laura Navarro MD [Primary Care Provider] - - Patient Instructions - Post Discharge Activity
[2018-01-12 20:19] LABS: HEMOGLOBIN 12.3 GM/dL (10.7-15.3)
[2018-01-12 20:25] LABS: HEMATOCRIT 39.6 % (32.4-45.2); MCH 30.8 pg (25.7-33.7); MCHC 31.1 g/dl (32.0-36.0); MEAN CELL VOLUME 99.2 fl (80-96); MEAN PLT VOLUME 9.3 fl (7.5-11.1); PLATELET COUNT 170 K/MM3 (134-434); RBC 3.99 M/mm3 (3.60-5.2); WHITE BLOOD COUNT 8.1 K/mm3 (4.0-10.0)
[2018-01-12 20:41] LABS: INR 0.93 (0.82-1.09); PROTHROMBIN TIME (PATIENT) 10.5 SEC (9.7-13.0)
[2018-01-12 20:55] LABS: ALBUMIN 3.5 g/dl (3.4-5.0); BLOOD UREA NITROGEN 10 mg/dL (7-18); CALCIUM 9.4 mg/dL (8.5-10.1); CHLORIDE 87 mmol/L (98-107); CREATININE 0.5 mg/dL (0.55-1.02); GLUCOSE,RANDOM 179 mg/dL (74-106); MAGNESIUM 1.8 mg/dL (1.8-2.4); POTASSIUM 4.3 mmol/L (3.5-5.1); SGOT/AST 14 U/L (15-37); SGPT/ALT 20 U/L (12-78); SODIUM 141 mmol/L (136-145)
[2018-01-12 21:05] LABS: PLATELET ESTIMATE DECREASED
[2018-01-12 21:08] LABS: ALK PHOS 72 U/L (45-117); BILIRUBIN,TOTAL 0.4 mg/dL (0.2-1.0); TOT PROT 6.4 g/dl (6.4-8.2)
[2018-01-12] MEDS ORDERED: MAGNESIUM 1GM/D5W - 1 GM/100 ML IVPB IVPB ONE (21:16)
[2018-01-12] MEDS ORDERED: ALBUTEROL SO4 2.5/IPRATROPIUM 0.5 INH SOL 3 ML VIAL.NEB. NEB ONE (21:16)
[2018-01-12] MEDS ORDERED: methylPREDNISolone NA SUCC 125 MG/2 ML VIAL IVPB ONE (21:20)
[2018-01-12 21:21] LABS: ANION GAP 0 (8-16); CO2 54 mmol/L (21-32)
[2018-01-12] MEDS ORDERED: methylPREDNISolone NA SUCC 125 MG/2 ML VIAL ONE (21:23)
[2018-01-12] MEDS ORDERED: ACETAMINOPHEN 325 MG TABLET (FP) PO PRN (21:56)
[2018-01-12] MEDS ORDERED: guaiFENesin 200 MG/10 ML 10 ML UNIT-DOSE CUPS PO PRN (21:56)
[2018-01-12] MEDS ORDERED: ALBUTEROL SO4 0.083% IH SOL 2.5 MG/3 ML VIAL.NEB. NEB PRN (21:58)
[2018-01-12] MEDS ORDERED: ALBUTEROL SO4 0.083% IH SOL 2.5 MG/3 ML VIAL.NEB. NEB SCH (22:00)
[2018-01-12] MEDS: MONTELUKAST NA 10 MG TABLET PO SCH (22:15)
[2018-01-12] MEDS: HEPARIN NA (PORCINE) 5,000 UNITS/ML 1ML VIAL SQ SCH (22:15)
[2018-01-12] MEDS ORDERED: MONTELUKAST NA 10 MG TABLET ONE (22:22)
[2018-01-12] MEDS ORDERED: HEPARIN NA (PORCINE) 5,000 UNITS/ML 1ML VIAL ONE (22:23)
[2018-01-12] MEDS ORDERED: HYDROCORTISONE SOD SUCCINATE 2 ML ONE (22:23)
[2018-01-12 22:28] LABS: ARTERIAL BLD GAS O2 SATURATION 96.3 % (90-98.9); ARTERIAL BLOOD GAS PO2 81.5 mmHg (80-100); ARTERIAL BLOOD GAS pH 7.26 (7.35-7.45); CARBOXYHEMOGLOBIN 2.3 gm% (0.5-2.0)
[2018-01-12 22:34] LABS: ALLENS TEST POSITIVE
[2018-01-12 22:37] LABS: ARTERIAL BLOOD GAS BASE EXCESS 24.4 meq/l (-2-2)
--- NOTE | 2018-01-13 00:02 | CONSULT ---
Consultation: REQUESTING PROVIDER: CONSULT REQUEST: We have been asked to medically evaluate this patient for ( intensive care). HISTORY OF PRESENT ILLNESS: 01/12/18 20:29 Patient is a 57 year old female with a significant past medical history of COPD , HTN, CHF, hypothyroidism, chronic back pain, COPD O2 dep, with history of prior intubation, on home 4L continuously, and ICU admission who presents to the ED with complaints of shortness of breath that began yesterday afternoon. As Per patient's patient has been using a new breathing machine that usually fluctuates with her O2 stats. Karen got solumedrol 125mg, duoneb and magnesium in ed and was started on bipap.. Karen is chronic co2 retainer. Patient recieved from er, awake and alert states breathing is better after getting steroid. PHYSICAL EXAMINATION Vital Signs - 24 hr 01/12/18 01/12/18 01/12/18 17:53 20:00 22:43 Temperature 98.7 F 97.2 F L Pulse Rate 91 H Respiratory 16 Rate Blood Pressure 144/61 Blood Pressure 123/65 [Right Arm] O2 Sat by Pulse 100 98 99 Oximetry (%) GENERAL: Awake, alert, and fully oriented HEAD: no signs of trauma. EYES: conjunctiva clear. EARS, NOSE, THROAT: Ears normal, nares patent, oropharynx clear without exudates. Moist mucous membranes. LUNGS: b/l decrease air entry, no wheezing and mild crackles at bases, no accessory muscle use, decrease air entry at base mi HEART: s1s2 normal ABDOMEN: Soft, nontender, not distended, normoactive bowel sounds, no guarding, no rebound, no masses. UPPER EXTREMITIES: 2+ pulses, warm, well-perfused. LOWER EXTREMITIE, warm. No calf tenderness. SKIN: Warm, dry, Laboratory Results - last 24 hr 01/12/18 01/12/18 01/12/18 20:00 20:00 20:00 WBC 8.1 RBC 3.99 Hgb 12.3 Hct 39.6 MCV 99.2 H MCH 30.8 MCHC 31.1 L RDW 14.0 Plt Count 170 MPV 9.3 D Absolute Neuts (auto) 7.7 Total Counted 100 Neutrophils % No Result Required. Neutrophils % (Manual) 90.0 H Band Neutrophils % 1.0 Lymphocytes % No Result Required. Lymphocytes % (Manual) 4.0 L D Monocytes % (Manual) 5 D Nucleated RBC % 0 Platelet Estimate Decreased Platelet Comment No clumping noted Basophilic Stippling 1+ PT with INR 10.50 INR 0.93 Anticoagulation Therapy Puncture Site ABG pH ABG pCO2 at Pt Temp ABG pO2 at Pt Temp ABG HCO3 ABG O2 Sat (Measured) ABG O2 Content ABG Base Excess [place] Test Carboxyhemoglobin Methemoglobin O2 Delivery Device Oxygen Flow Rate Vent Mode Vent Rate Mechanical Rate Pressure Support Vent Sodium 141 Potassium 4.3 Chloride 87 L Carbon Dioxide 54 H Anion Gap 0 L BUN 10 Creatinine 0.5 L Creat Clearance w eGFR > 60 Random Glucose 179 H Calcium 9.4 Magnesium 1.8 Total Bilirubin 0.4 AST 14 L ALT 20 Alkaline Phosphatase 72 Creatine Kinase 58 Troponin I < 0.02 B-Natriuretic Peptide Total Protein 6.4 Albumin 3.5 01/12/18 01/12/18 20:00 22:05 WBC RBC Hgb Hct MCV MCH MCHC RDW Plt Count MPV Absolute Neuts (auto) Total Counted Neutrophils % Neutrophils % (Manual) Band Neutrophils % Lymphocytes % Lymphocytes % (Manual) Monocytes % (Manual) Nucleated RBC % Platelet Estimate Platelet Comment Basophilic Stippling PT with INR INR Anticoagulation Therapy No Result Required. Puncture Site Left radial ABG pH 7.26 L ABG pCO2 at Pt Temp 131.0 H* D ABG pO2 at Pt Temp 81.5 ABG HCO3 56.7 H* ABG O2 Sat (Measured) 96.3 ABG O2 Content 15.0 ABG Base Excess 24.4 H* [place] Test Positive Carboxyhemoglobin 2.3 H Methemoglobin 1.5 O2 Delivery Device No Result Required. Oxygen Flow Rate 50 Vent Mode S/t Vent Rate 14 Mechanical Rate No Result Required. Pressure Support Vent 14/7 Sodium Potassium Chloride Carbon Dioxide Anion Gap BUN Creatinine Creat Clearance w eGFR Random Glucose Calcium Magnesium Total Bilirubin AST ALT Alkaline Phosphatase Creatine Kinase Troponin I B-Natriuretic Peptide 213.64 H Total Protein Albumin Active Medications Generic Name Dose Route Start Last Admin Trade Name Freq PRN Reason Stop Dose Admin Acetaminophen 650 mg 01/12/18 21:56 Tylenol - PO Q6H PRN PAIN LEVEL 1-5 Albuterol Sulfate 1 amp 01/12/18 21:58 Ventolin 0.083% Nebulizer Soln - NEB Q4H PRN WHEEZING Escitalopram Oxalate 10 mg 01/13/18 10:00 Lexapro - PO DAILY [facility] Furosemide 20 mg 01/13/18 10:00 Lasix - PO DAILY [facility] Guaifenesin 10 ml 01/12/18 21:56 Robitussin - PO Q4H PRN COUGH Heparin Sodium (Porcine) 5,000 unit 01/12/18 22:00 01/12/18 22:15 Heparin - SQ 5,000 unit BID [facility] Administration Insulin Aspart 1 vial 01/13/18 07:00 Novolog Vial Sliding Scale - SQ ACHS [facility] Protocol Levothyroxine Sodium 100 mcg 01/13/18 07:00 Synthroid - PO DAILY@0700 [facility] Losartan Potassium 25 mg 01/13/18 10:00 Cozaar - PO DAILY [facility] Methylprednisolone Sodium Succinate 60 mg 01/12/18 22:00 Solu-Medrol - IVPB Q8H [facility] Montelukast Sodium 10 mg 01/12/18 22:00 01/12/18 22:15 Singulair - PO 10 mg HS [facility] Administration Pantoprazole Sodium 40 mg 01/13/18 10:00 Protonix - PO DAILY [facility] Potassium Chloride 10 meq 01/13/18 10:00 K-Dur - PO DAILY [facility] Roflumilast 500 mcg 01/13/18 10:00 Daliresp - PO DAILY [facility] ASSESSMENT/PLAN: Problem list Acute on chronic hypercapneic Respiratory Failure AE of COPD Former smoker CHF HTN Hypothyroidism Above listed medical history PLAN: BIPAP adjusted to increase minute ventilation Repeat abg Aspiration precautions VTE prophylaxis on heparin sq continue roflumilast. duoneb q6h standing solumedrol 60mg iv q8h. continue Singulair Low threshold for intubation continue home meds for hypothyroid, htn and chf. ICU monitoring Dispo: We will continue to follow the patient. Thank you for this consultative opportunity. Visit type - Emergency Visit Emergency Visit: Yes ED Registration Date: 01/12/18 Care time: The patient presented to the Emergency Department on the above date and was hospitalized for further evaluation of their emergent condition. - New Patient This patient is new to me today: Yes Date on this admission: 01/13/18 - Critical Care Critical Care patient: Yes Total Critical Care Time (in minutes): 60 Critical Care Statement: The care of this patient involved high complexity decision making to prevent further life threatening deterioration of the patient 's condition and/or to evaluate & treat vital organ system(s) failure or risk of failure.
[2018-01-13 00:33] LABS: ARTERIAL BLD GAS O2 SATURATION 97.8 % (90-98.9)
[2018-01-13 00:36] LABS: ARTERIAL BLOOD GAS BASE EXCESS 23.8 meq/l (-2-2); ARTERIAL BLOOD GAS pH 7.22 (7.35-7.45)
[2018-01-13 00:37] LABS: ALLENS TEST POSITIVE
[2018-01-13] MEDS: methylPREDNISolone NA SUCC 125 MG/2 ML VIAL IVPB SCH ×4 (00:44→21:26)
[2018-01-13 01:42] LABS: ARTERIAL BLOOD GAS PO2 73.7 mmHg (80-100); ARTERIAL BLOOD GAS pH 7.27 (7.35-7.45)
[2018-01-13 01:43] LABS: ARTERIAL BLOOD GAS BASE EXCESS 24.3 meq/l (-2-2)
[2018-01-13 01:44] LABS: ALLENS TEST POSITIVE
[2018-01-13 02:19] LABS: ARTERIAL BLD GAS O2 SATURATION 94.4 % (90-98.9)
[2018-01-13 03:50] LABS: URINE APPEARANCE SLCLOUDY; URINE BILIRUBIN NEGATIVE (<2.0 mg/dL); URINE COLOR YELLOW; URINE GLUCOSE (UA) NEGATIVE (NEGATIVE); URINE KETONE NEGATIVE (NEGATIVE); URINE LEUK ESTERASE NEGATIVE (NEGATIVE); URINE NITRITE NEGATIVE (NEGATIVE); URINE PROTEIN NEGATIVE (NEGATIVE); URINE UROBILINOGEN NEGATIVE mg/dL (0.2-1.0)
[2018-01-13 05:56] LABS: BASO % 0.2 % (0-2.0); HEMATOCRIT 36.6 % (32.4-45.2); HEMOGLOBIN 11.6 GM/dL (10.7-15.3); LYMPH % 1.7 % (8-40); MCH 31.2 pg (25.7-33.7); MCHC 31.8 g/dl (32.0-36.0); MEAN CELL VOLUME 98.2 fl (80-96); MONO % 0.9 % (3.8-10.2); NEUT % 97.2 % (42.8-82.8); PLATELET COUNT 143 K/MM3 (134-434); RBC 3.72 M/mm3 (3.60-5.2); RDW 13.7 % (11.6-15.6); WHITE BLOOD COUNT 6.6 K/mm3 (4.0-10.0)
[2018-01-13] MEDS: INSULIN SLIDING SCALE (NOVOLOG) 1 VIAL SQ SCH ×4 (06:24→21:21)
[2018-01-13 06:55] LABS: ARTERIAL BLD GAS O2 SATURATION 96.2 % (90-98.9); ARTERIAL BLOOD GAS PO2 76.1 mmHg (80-100)
[2018-01-13 06:56] LABS: ALBUMIN 3.3 g/dl (3.4-5.0); BLOOD UREA NITROGEN 10 mg/dL (7-18); CHLORIDE 87 mmol/L (98-107); GLUCOSE,RANDOM 162 mg/dL (74-106); POTASSIUM 4.7 mmol/L (3.5-5.1); SODIUM 142 mmol/L (136-145)
[2018-01-13] MEDS ORDERED: LEVOTHYROXINE NA 100 MCG TABLET (FP) PO SCH (07:00)
[2018-01-13 07:02] LABS: ARTERIAL BLOOD GAS pH 7.33 (7.35-7.45)
[2018-01-13 07:03] LABS: ARTERIAL BLOOD GAS BASE EXCESS 25.6 meq/l (-2-2)
[2018-01-13 07:08] LABS: ALK PHOS 68 U/L (45-117); BILIRUBIN,TOTAL 0.4 mg/dL (0.2-1.0); CREATININE 0.5 mg/dL (0.55-1.02); SGOT/AST 14 U/L (15-37); SGPT/ALT 17 U/L (12-78); TOT PROT 5.9 g/dl (6.4-8.2)
--- NOTE | 2018-01-13 08:05 | HP ---
Admitting History and Physical - Primary Care Physician PCP: Agustina Taylor S - Admission Chief Complaint: lethargy History of Present Illness: Patient is a 57 year old female with a significant past medical history of COPD , HTN, CHF, hypothyroidism, chronic back pain, COPD O2 dep, with history of prior intubation, on home 4L continuously, and ICU admission who presents to the ED with complaints of shortness of breath that began yesterday afternoon. As Per patient's patient has been using a new breathing machine that usually fluctuates with her O2, but she did not use the machine because it was "too strong" and the electrical power went off few times in the apartment after using it (especially when used in same time with AC). Pt had signs of being more sleepy for 4-5 days and then some confusion and lethargy in the last 2 days - d/w pt and if they notice any change in her mental status she should be brought to ER right away otherwise she could diet from CO2 retention and respiratory failure. She saw recently dr Navarro PCP in her office. Patient got solumedrol 125mg, duoneb and magnesium in ed and was started on bipap.. Patinet is chronic co2 retainer. pt seen in ICU awake and alert currently, on BIPAP: at bedside. History Source: Patient, Family Member, Medical Record Limitations to Obtaining History: No Limitations - Past Medical History Cardiovascular: Yes: CHF, HTN Pulmonary: Yes: COPD, O2 Dependent ...LMP: 06/03/14 ...: No Infectious Disease: Yes: Other (pneumonia) Musculoskeletal: Yes: Chronic low back pain Endocrine: Yes: Hypothyroidism - Smoking History Smoking history: Former smoker Have you smoked in the past 12 months: No If you are a former smoker, when did you quit?: YEARS AGO - Alcohol/Substance Use Hx Alcohol Use: No History of Substance Use: reports: None - Social History ADL: Family Assistance History of Recent Travel: No Home Medications - Allergies Allergies/Adverse Reactions: Allergies Allergy/AdvReac Type Severity Reaction Status Date / Time Penicillins Allergy Severe Difficulty Verified 01/12/18 18:19 Breathing - Home Medications Home Medications: Ambulatory Orders Fenofibrate [Lofibra] 160 mg PO DAILY 10/13/15 Albuterol 0.083% Nebulizer Colette [Ventolin 0.083% Nebulizer Soln -] 1 neb NEB Q4H #0 tab 06/24/17 Levothyroxine [Synthroid -] 100 mcg PO DAILY@0700 tablet 06/24/17 Losartan Potassium [Cozaar -] 25 mg PO DAILY #30 tablet 06/24/17 Montelukast Na [Singulair -] 10 mg PO HS #0 tab 06/24/17 Roflumilast [Daliresp] 500 mcg PO DAILY #30 tablet 06/24/17 Escitalopram Oxalate [Lexapro -] 10 mg PO DAILY 08/31/17 Potassium Chloride [K-Dur -] 10 meq PO DAILY 08/31/17 Acetaminophen [Tylenol .Regular Strength -] 650 mg PO Q6H PRN tablet 09/03/17 Albuterol 2.5/Ipratropium 0.5 [Duoneb -] 1 amp NEB RQID amp 09/03/17 Furosemide [Lasix -] 20 mg PO DAILY 11/25/17 Guaifenesin [Robitussin -] 10 ml PO Q4H PRN cup 12/02/17 Levofloxacin [Levaquin] 500 mg PO DAILY #3 tab 12/02/17 predniSONE [Deltasone -] 5 mg PO DAILY #90 tablet 12/02/17 Family Disease History - Family Disease History Family History: Unremarkable Review of Systems - Review of Systems Constitutional: reports: Lethargy, Loss of Appetite, Weakness (general). denies : Chills, Fever Eyes: denies: Blurred Vision, Double Vision HENT: denies: Ear Pain, Epistaxis Neck: denies: Decreased ROM, Pain on Movement, Stiffness Cardiovascular: reports: Shortness of Breath. denies: Chest Pain, Edema, Palpitations Respiratory: reports: Cough, Exercise Intolerance, SOB, SOB on Exertion, Wheezing. denies: Hemoptysis, Orthopnea, PND Gastrointestinal: denies: Abdominal Pain, Bloating, Constipation, Diarrhea, Dysphagia, Rectal Bleeding, Vomiting Genitourinary: denies: Discharge, Dysuria, Flank Pain Musculoskeletal: denies: Back Pain, Joint Swelling, Muscle Pain, Muscle Cramps Integumentary: denies: Change in Color, Eczema, Erythema, Rash, Wound Neurological: reports: Confusion (not now), Dizziness (not now), Weakness ( general). denies: Change in LOC, Change in Speech, Headache, Seizure, Syncope, Tremors, Unsteady Gait Endocrine: denies: Excessive Sweating, Flushing, Intolerance to Cold Hematology/Lymphatic: denies: Easily Bruised, Excessive Bleeding, Swollen Glands Psychiatric: reports: Altered Sleep Pattern. denies: Anxiety, Depression, Hallucinations, Suicidal Physical Examination Vital Signs: Vital Signs Temperature 97.9 F 01/13/18 06:00 Pulse Rate 83 01/13/18 06:00 Respiratory Rate 24 01/13/18 06:00 Blood Pressure 133/70 01/13/18 06:00 O2 Sat by Pulse Oximetry (%) 95 01/13/18 06:25 Constitutional: Yes: No Distress, Calm Eyes: Yes: Conjunctiva Clear HENT: Yes: Atraumatic Neck: Yes: Supple Cardiovascular: Yes: Regular Rate and Rhythm Respiratory: Yes: Diminished, Rales, Rhonchi, Wheezes (expiratory bilateral scaterred) Gastrointestinal: Yes: Soft Renal/: No: CVA Tenderness - Left, CVA Tenderness - Right Musculoskeletal: No: Joint Stiffness, Joint Swelling Extremities: No: Cold, Cool, Cyanosis Edema: No Integumentary: No: Rash, Skin Tear, Venous Stasis Changes Neurological: Yes: WNL, Alert, Oriented ...Motor Strength: WNL Psychiatric: Yes: WNL, Alert, Oriented. No: Agitated, Suicidal Ideation Labs: CBC, BMP 01/13/18 05:30 01/13/18 05:30 Imaging - Results Chest X-ray: Report Reviewed Other: Report Reviewed Assessment/Plan Patient is a 57 year old female with a significant past medical history of COPD , HTN, CHF, hypothyroidism, chronic back pain, COPD O2 dep, with history of prior intubation, on home 4L continuously, and ICU admission who presents to the ED with complaints of shortness of breath and lethargy, not using her Trilogy machine at home as she should IV solumedrol 125mg, duoneb and magnesium received in ER bipap.. admit tp ICU iv antibiotics pulm ICU eval DVT pfx falls PFX prognosis guarded d/w pt and ; consults tests and meds reviewed and d/w pt and family; pt and to d./w pulm dr to adjust home machine to be used as recommended d/w staff d/w pt's PCP dr Navarro T time 80 min
[2018-01-13] MEDS: ALBUTEROL SO4 2.5/IPRATROPIUM 0.5 INH SOL 3 ML VIAL.NEB. NEB SCH ×4 (08:15→21:08)
[2018-01-13 08:38] LABS: ANION GAP -7 (8-16); CO2 62 mmol/L (21-32)
[2018-01-13] MEDS: HEPARIN NA (PORCINE) 5,000 UNITS/ML 1ML VIAL SQ SCH ×2 (09:52→21:25)
[2018-01-13] MEDS: ROFLUMILAST 500 MCG TABLET PO SCH (10:00)
[2018-01-13] MEDS: PANTOPRAZOLE 40 MG TABLET (FP) PO SCH (10:00)
[2018-01-13] MEDS ORDERED: POTASSIUM CHLORIDE TABS 10 MEQ TABLET.ER (FP) PO SCH (10:00)
[2018-01-13 10:35] LABS: ANISOCYTOSIS 1+; MACROCYTOSIS 0
--- NOTE | 2018-01-13 10:41 | PN ---
Teaching Attending Note Name of Resident: Guicho Castro ATTENDING PHYSICIAN STATEMENT I saw and evaluated the patient. I reviewed the resident's note and discussed the case with the resident. I agree with the resident's findings and plan as documented. SUBJECTIVE: Pt seen and examined in the ICU. Remains on BiPAP, lethargic but arousable. OBJECTIVE: Vital Signs Period Temp Pulse Resp BP Sys/Domínguez Pulse Ox Last 24 Hr 97.2 F-98.7 F 78-96 16-28 123-148/61-82 89-100 Intake & Output 01/10/18 01/11/18 01/12/18 01/13/18 23:59 23:59 23:59 23:59 Intake Total 0 Output Total 50 200 Balance -50 -200 Weight 75.296 kg 75.296 kg Gen: lethargic on BiPAP but arousable Heart: RRR Lung: distant breath sounds Abd: soft, nontender Ext: no edema CBC, BMP 01/13/18 05:30 01/13/18 05:30 Active Medications Acetaminophen (Tylenol -) 650 mg PO Q6H PRN PRN Reason: PAIN LEVEL 1-5 Albuterol Sulfate (Ventolin 0.083% Nebulizer Soln -) 1 amp NEB Q4H PRN PRN Reason: WHEEZING Albuterol/Ipratropium (Duoneb -) 1 amp NEB RQID [facility] Last Admin: 01/13/18 08:15 Dose: 1 amp Escitalopram Oxalate (Lexapro -) 10 mg PO DAILY [facility] Furosemide (Lasix -) 20 mg PO DAILY [facility] Guaifenesin (Robitussin -) 10 ml PO Q4H PRN PRN Reason: COUGH Heparin Sodium (Porcine) (Heparin -) 5,000 unit SQ BID [facility] Last Admin: 01/13/18 09:52 Dose: 5,000 unit Insulin Aspart (Novolog Vial Sliding Scale -) 1 vial SQ ACHS [facility]; Protocol Last Admin: 01/13/18 06:24 Dose: 2 units Levothyroxine Sodium (Synthroid -) 100 mcg PO DAILY@0700 [facility] Last Admin: 01/13/18 06:24 Dose: 100 mcg Losartan Potassium (Cozaar -) 25 mg PO DAILY [facility] Methylprednisolone Sodium Succinate (Solu-Medrol -) 60 mg IVPB Q8H [facility] Last Admin: 07/18/18 05:33 Dose: 60 mg Montelukast Sodium (Singulair -) 10 mg PO HS [facility] Last Admin: 01/12/18 22:15 Dose: 10 mg Pantoprazole Sodium (Protonix -) 40 mg PO DAILY [facility] Potassium Chloride (K-Dur -) 10 meq PO DAILY [facility] Roflumilast (Daliresp -) 500 mcg PO DAILY [facility] ASSESSMENT AND PLAN: Acute on Chronic Hypoxic and Hypercapneic Respiratory Failure Acute COPD Exacerbation r/o Pneumonia LV Diastolic Dysfunction HTN Hypothyroidism - IV medrol - inhaled bronchodilators standing and PRN - BiPAP for acute hypercapnea - titrate O2 to keep Spo2 88-92% to avoid worsening V/Q mismatch - start empiric antibiotics - monitor ABG - aspiration precautions - DVT/GI prophylaxis - continue ICU monitoring critical care time spent reviewing chart, evaluating patient and formulating plan 35 min
[2018-01-13] MEDS: ESCITALOPRAM OXALATE 10 MG TABLET (FP) PO SCH (10:51)
[2018-01-13] MEDS: FUROSEMIDE 20 MG TABLET (FP) PO SCH (10:51)
[2018-01-13] MEDS: LOSARTAN POTASSIUM 25 MG TABLET PO SCH (10:51)
[2018-01-13] MEDS ORDERED: PT OWN MED DRAWER 7, Y5N ONE (10:52)
[2018-01-13 10:54] LABS: PLATELET ESTIMATE ADEQUATE
[2018-01-13] MEDS ORDERED: BUDESONIDE/FORMETEROL FUMARATE 160/4.5 mcg INHALER IH ONE (11:30)
--- NOTE | 2018-01-13 11:40 | EKG ---
Test Reason : Blood Pressure : / mmHG Vent. Rate : 099 BPM Atrial Rate : 099 BPM P-R Int : 124 ms QRS Dur : 072 ms QT Int : 304 ms P-R-T Axes : 077 077 075 degrees QTc Int : 390 ms POOR DATA QUALITY, INTERPRETATION MAY BE ADVERSELY AFFECTED NORMAL SINUS RHYTHM NORMAL ECG WHEN COMPARED WITH ECG OF 27-NOV-2017 11:21, NO SIGNIFICANT CHANGE WAS FOUND Confirmed by ASHLYN OLIVO, NEIL ([id number]) on 01/13/2018 11:40:39 AM Referred By: Confirmed By:NEIL GOLDBERG MD
[2018-01-13] MEDS ORDERED: CEFTRIAXONE 1 GM in DEXTROSE 5%-WATER - 100 ML IVPB SCH (11:45)
[2018-01-13] MEDS ORDERED: AZITHROMYCIN IVPB 500 MG in DEXTROSE 5%-WATER - 250 ML IVPB SCH (11:45)
[2018-01-13] MEDS ORDERED: LEVOTHYROXINE NA 50 MCG TABLET (FP) PO SCH (13:30)
[2018-01-13] MEDS: THIAMINE HCL 100 MG TABLET (FP) PO SCH (15:40)
[2018-01-13] MEDS: ASCORBIC ACID 500 MG TABLET (FP) PO SCH (15:40)
--- NOTE | 2018-01-13 20:54 | PN ---
Physical Exam: SUBJECTIVE: Patient seen and examined this am in icu. Pt on BIPAP machine. Resting in bed comfortably. Denies cp, prasad, or sob. OBJECTIVE: Vital Signs Period Temp Pulse Resp BP Sys/Domínguez Pulse Ox Last 24 Hr 97.2 F-98.1 F 78-96 23-28 120-148/62-82 89-99 GENERAL: Somnolent. HEAD: NC/AT EYES: EOMI. LUNGS: BS distant HEART: RRR ABDOMEN: Soft,ND, NT, No HSM EXTREMITIES: pulses 2+ B/L feet. NEUROLOGICAL: No Neuro Deficits Laboratory Results - last 24 hr 01/12/18 01/12/18 01/12/18 20:00 20:00 20:00 WBC 8.1 RBC 3.99 Hgb 12.3 Hct 39.6 MCV 99.2 H MCH 30.8 MCHC 31.1 L RDW 14.0 Plt Count 170 MPV 9.3 D Absolute Neuts (auto) 7.7 Total Counted 100 Neutrophils % No Result Required. Neutrophils % (Manual) 90.0 H Band Neutrophils % 1.0 Lymphocytes % No Result Required. Lymphocytes % (Manual) 4.0 L D Monocytes % Monocytes % (Manual) 5 D Eosinophils % Eosinophils % (Manual) Basophils % Basophils % (Manual) Myelocytes % (Man) Promyelocytes % (Man) Blast Cells % (Manual) Nucleated RBC % 0 Metamyelocytes Hypochromia Platelet Estimate Decreased Platelet Comment No clumping noted Polychromasia Poikilocytosis Basophilic Stippling 1+ Anisocytosis Microcytosis Macrocytosis PT with INR 10.50 INR 0.93 Anticoagulation Therapy Puncture Site Patient Temperature ABG pH ABG pCO2 at Pt Temp ABG pO2 at Pt Temp ABG HCO3 ABG O2 Sat (Measured) ABG O2 Content ABG Base Excess [place] Test Carboxyhemoglobin Methemoglobin O2 Delivery Device Oxygen Flow Rate Vent Mode Vent Rate Mechanical Rate PEEP Pressure Support Vent Sodium 141 Potassium 4.3 Chloride 87 L Carbon Dioxide 54 H Anion Gap 0 L BUN 10 Creatinine 0.5 L Creat Clearance w eGFR > 60 POC Glucometer Random Glucose 179 H Calcium 9.4 Magnesium 1.8 Total Bilirubin 0.4 AST 14 L ALT 20 Alkaline Phosphatase 72 Creatine Kinase 58 Troponin I < 0.02 B-Natriuretic Peptide Total Protein 6.4 Albumin 3.5 TSH Urine Color Urine Appearance Urine pH Ur Specific Clint Urine Protein Urine Glucose (UA) Urine Ketones Urine Blood Urine Nitrite Urine Bilirubin Urine Urobilinogen Ur Leukocyte Esterase 01/12/18 01/12/18 01/13/18 20:00 22:05 00:20 WBC RBC Hgb Hct MCV MCH MCHC RDW Plt Count MPV Absolute Neuts (auto) Total Counted Neutrophils % Neutrophils % (Manual) Band Neutrophils % Lymphocytes % Lymphocytes % (Manual) Monocytes % Monocytes % (Manual) Eosinophils % Eosinophils % (Manual) Basophils % Basophils % (Manual) Myelocytes % (Man) Promyelocytes % (Man) Blast Cells % (Manual) Nucleated RBC % Metamyelocytes Hypochromia Platelet Estimate Platelet Comment Polychromasia Poikilocytosis Basophilic Stippling Anisocytosis Microcytosis Macrocytosis PT with INR INR Anticoagulation Therapy No Result Required. No Result Required. Puncture Site Left radial Left radial Patient Temperature ABG pH 7.26 L 7.22 L* ABG pCO2 at Pt Temp 131.0 H* D 144.0 H* ABG pO2 at Pt Temp 81.5 100.0 D ABG HCO3 56.7 H* 56.9 H* ABG O2 Sat (Measured) 96.3 97.8 ABG O2 Content 15.0 15.5 ABG Base Excess 24.4 H* 23.8 H* [place] Test Positive Positive Carboxyhemoglobin 2.3 H Methemoglobin 1.5 O2 Delivery Device No Result Required. Bipap Oxygen Flow Rate 50 60% Vent Mode S/t S/t Vent Rate 14 20 Mechanical Rate No Result Required. No Result Required. PEEP Pressure Support Vent 14/7 15/7 Sodium Potassium Chloride Carbon Dioxide Anion Gap BUN Creatinine Creat Clearance w eGFR POC Glucometer Random Glucose Calcium Magnesium Total Bilirubin AST ALT Alkaline Phosphatase Creatine Kinase Troponin I B-Natriuretic Peptide 213.64 H Total Protein Albumin TSH Urine Color Urine Appearance Urine pH Ur Specific Clint Urine Protein Urine Glucose (UA) Urine Ketones Urine Blood Urine Nitrite Urine Bilirubin Urine Urobilinogen Ur Leukocyte Esterase 01/13/18 01/13/18 01/13/18 01:00 01:20 05:30 WBC 6.6 RBC 3.72 Hgb 11.6 Hct 36.6 MCV 98.2 H MCH 31.2 MCHC 31.8 L RDW 13.7 Plt Count 143 MPV 9.0 Absolute Neuts (auto) 6.5 Total Counted Neutrophils % 97.2 H Neutrophils % (Manual) 96.0 H Band Neutrophils % 0.0 Lymphocytes % 1.7 L D Lymphocytes % (Manual) 3.0 L D Monocytes % 0.9 L D Monocytes % (Manual) 1 L Eosinophils % 0.0 Eosinophils % (Manual) 0.0 Basophils % 0.2 Basophils % (Manual) 0.0 Myelocytes % (Man) 0 Promyelocytes % (Man) 0 Blast Cells % (Manual) 0 Nucleated RBC % 0 Metamyelocytes 0 D Hypochromia 0 Platelet Estimate Adequate Platelet Comment Polychromasia 0 Poikilocytosis 0 Basophilic Stippling 1+ Anisocytosis 1+ Microcytosis 1+ Macrocytosis 0 PT with INR INR Anticoagulation Therapy No Result Required. Puncture Site Left radial Patient Temperature ABG pH 7.27 L ABG pCO2 at Pt Temp 126.0 H* ABG pO2 at Pt Temp 73.7 L D ABG HCO3 56.3 H* ABG O2 Sat (Measured) 94.4 ABG O2 Content 14.8 L ABG Base Excess 24.3 H* [place] Test Positive Carboxyhemoglobin Methemoglobin O2 Delivery Device Bipap Oxygen Flow Rate 45% Vent Mode No Result Required. Vent Rate 22 Mechanical Rate No Result Required. PEEP Pressure Support Vent 16/7 Sodium Potassium Chloride Carbon Dioxide Anion Gap BUN Creatinine Creat Clearance w eGFR POC Glucometer Random Glucose Calcium Magnesium Total Bilirubin AST ALT Alkaline Phosphatase Creatine Kinase Troponin I B-Natriuretic Peptide Total Protein Albumin TSH Urine Color Yellow Urine Appearance Slcloudy Urine pH 5.0 Ur Specific Clint 1.019 Urine Protein Negative Urine Glucose (UA) Negative Urine Ketones Negative Urine Blood Negative Urine Nitrite Negative Urine Bilirubin Negative Urine Urobilinogen Negative Ur Leukocyte Esterase Negative 01/13/18 01/13/18 01/13/18 05:30 06:00 06:48 WBC RBC Hgb Hct MCV MCH MCHC RDW Plt Count MPV Absolute Neuts (auto) Total Counted Neutrophils % Neutrophils % (Manual) Band Neutrophils % Lymphocytes % Lymphocytes % (Manual) Monocytes % Monocytes % (Manual) Eosinophils % Eosinophils % (Manual) Basophils % Basophils % (Manual) Myelocytes % (Man) Promyelocytes % (Man) Blast Cells % (Manual) Nucleated RBC % Metamyelocytes Hypochromia Platelet Estimate Platelet Comment Polychromasia Poikilocytosis Basophilic Stippling Anisocytosis Microcytosis Macrocytosis PT with INR INR Anticoagulation Therapy Cancelled No Result Required. Puncture Site Cancelled No Result Required. Patient Temperature Cancelled ABG pH Cancelled 7.33 L ABG pCO2 at Pt Temp Cancelled 110.0 H* ABG pO2 at Pt Temp Cancelled 76.1 L ABG HCO3 Cancelled 56.8 H* ABG O2 Sat (Measured) Cancelled 96.2 ABG O2 Content Cancelled 15.2 ABG Base Excess Cancelled 25.6 H* [place] Test Cancelled No Result Required. Carboxyhemoglobin Methemoglobin O2 Delivery Device Cancelled No Result Required. Oxygen Flow Rate Cancelled No Result Required. Vent Mode Cancelled No Result Required. Vent Rate Cancelled No Result Required. Mechanical Rate Cancelled No Result Required. PEEP Cancelled Pressure Support Vent Cancelled No Result Required. Sodium 142 Potassium 4.7 Chloride 87 L Carbon Dioxide 62 H Anion Gap -7 L BUN 10 Creatinine 0.5 L Creat Clearance w eGFR > 60 POC Glucometer Random Glucose 162 H Calcium 9.0 Magnesium Total Bilirubin 0.4 AST 14 L ALT 17 Alkaline Phosphatase 68 Creatine Kinase 27 Troponin I < 0.02 B-Natriuretic Peptide Total Protein 5.9 L Albumin 3.3 L TSH 0.22 L Urine Color Urine Appearance Urine pH Ur Specific Clint Urine Protein Urine Glucose (UA) Urine Ketones Urine Blood Urine Nitrite Urine Bilirubin Urine Urobilinogen Ur Leukocyte Esterase 01/13/18 11:48 WBC RBC Hgb Hct MCV MCH MCHC RDW Plt Count MPV Absolute Neuts (auto) Total Counted Neutrophils % Neutrophils % (Manual) Band Neutrophils % Lymphocytes % Lymphocytes % (Manual) Monocytes % Monocytes % (Manual) Eosinophils % Eosinophils % (Manual) Basophils % Basophils % (Manual) Myelocytes % (Man) Promyelocytes % (Man) Blast Cells % (Manual) Nucleated RBC % Metamyelocytes Hypochromia Platelet Estimate Platelet Comment Polychromasia Poikilocytosis Basophilic Stippling Anisocytosis Microcytosis Macrocytosis PT with INR INR Anticoagulation Therapy Puncture Site Patient Temperature ABG pH ABG pCO2 at Pt Temp ABG pO2 at Pt Temp ABG HCO3 ABG O2 Sat (Measured) ABG O2 Content ABG Base Excess [place] Test Carboxyhemoglobin Methemoglobin O2 Delivery Device Oxygen Flow Rate Vent Mode Vent Rate Mechanical Rate PEEP Pressure Support Vent Sodium Potassium Chloride Carbon Dioxide Anion Gap BUN Creatinine Creat Clearance w eGFR POC Glucometer 169.13809 Random Glucose Calcium Magnesium Total Bilirubin AST ALT Alkaline Phosphatase Creatine Kinase Troponin I B-Natriuretic Peptide Total Protein Albumin TSH Urine Color Urine Appearance Urine pH Ur Specific Clint Urine Protein Urine Glucose (UA) Urine Ketones Urine Blood Urine Nitrite Urine Bilirubin Urine Urobilinogen Ur Leukocyte Esterase Active Medications Generic Name Dose Route Start Last Admin Trade Name Freq PRN Reason Stop Dose Admin Acetaminophen 650 mg 01/12/18 21:56 Tylenol - PO Q6H PRN PAIN LEVEL 1-5 Albuterol Sulfate 1 amp 01/12/18 21:58 Ventolin 0.083% Nebulizer Soln - NEB Q4H PRN WHEEZING Albuterol/Ipratropium 1 amp 01/13/18 08:00 01/13/18 16:22 Duoneb - NEB 1 amp RQID [facility] Administration Ascorbic Acid 500 mg 01/13/18 13:30 01/13/18 15:40 Vitamin C - PO 500 mg DAILY [facility] Administration Budesonide/Formoterol Fumarate 2 puff 01/13/18 22:00 Symbicort 160/4.5mcg - IH BID [facility]AN[facility] Escitalopram Oxalate 10 mg 01/13/18 10:00 01/13/18 10:51 Lexapro - PO 10 mg DAILY [facility] Administration Furosemide 20 mg 01/13/18 10:00 01/13/18 10:51 Lasix - PO 20 mg DAILY [facility] Administration Guaifenesin 10 ml 01/12/18 21:56 Robitussin - PO Q4H PRN COUGH Heparin Sodium (Porcine) 5,000 unit 01/12/18 22:00 01/13/18 09:52 Heparin - SQ 5,000 unit BID [facility]AN[facility] Administration Insulin Aspart 1 vial 01/13/18 07:00 01/13/18 19:00 Novolog Vial Sliding Scale - SQ Not Given ACHS [facility] Protocol Levothyroxine Sodium 50 mcg 01/13/18 13:30 Synthroid - PO DAILY@0700 [facility]AN[facility] Losartan Potassium 25 mg 01/13/18 10:00 01/13/18 10:51 Cozaar - PO 25 mg DAILY [facility] Administration Methylprednisolone Sodium Succinate 60 mg 01/12/18 22:00 01/13/18 15:38 Solu-Medrol - IVPB 60 mg Q8H [facility] Administration Montelukast Sodium 10 mg 01/12/18 22:00 01/12/18 22:15 Singulair - PO 10 mg HS [facility] Administration Pantoprazole Sodium 40 mg 01/13/18 10:00 01/13/18 10:00 Protonix - PO Not Given DAILY [facility] Potassium Chloride 10 meq 01/13/18 10:00 01/13/18 10:00 K-Dur - PO Not Given DAILY [facility]ANSEL Roflumilast 500 mcg 01/13/18 10:00 01/13/18 10:00 Daliresp - PO 500 mcg DAILY [facility] Administration Thiamine HCl 100 mg 01/13/18 13:30 01/13/18 15:40 Vitamin B1 - PO 100 mg DAILY [facility] Administration ASSESSMENT/PLAN: 57 year old female with a with a pmh of COPD, HTN, pneumonia, CHF, hypothyroidism, chronic back pain, and COPD. Acute on chronic hypercapneic Respiratory Failure Acute Exacerbation COPD BIPAP for acute hypercapnea Singulair 10 mg PO Solu-Medrol 60 mg IVPB Q8H Symbicort 160/4.5mcg Duoneb 1 amp NEB Albuterol Sulfate 1 amp neb Q4H PRN Urine Antigens for Pneumonia Urine Antigen Legionella Levaquin 750 mg Once Chest X-Ray 01/13-Minimal platelike atelectasis left base ABG 01/13: PCO2 110, HCO3 56.8, Base excess 25.6 HTN Cozaar 25 mg PO Daily EKG 01/12- WNL. Hypothyroidism Synthroid 50 mcg PO Daily DVT PPX Hep 5,000 U SQ BID FEN No Fluids Monitor Electrolytes Diabetic Diet Dispo Continue to monitor in icu Visit type - Emergency Visit Emergency Visit: Yes ED Registration Date: 01/12/18 Care time: The patient presented to the Emergency Department on the above date and was hospitalized for further evaluation of their emergent condition. - New Patient This patient is new to me today: Yes Date on this admission: 01/13/18 - Critical Care Critical Care patient: Yes Total Critical Care Time (in minutes): 35 Critical Care Statement: The care of this patient involved high complexity decision making to prevent further life threatening deterioration of the patient 's condition and/or to evaluate & treat vital organ system(s) failure or risk of failure.
[2018-01-13] MEDS: MONTELUKAST NA 10 MG TABLET PO SCH (21:25)
[2018-01-13] MEDS: BUDESONIDE/FORMETEROL FUMARATE 160/4.5 mcg INHALER IH SCH (21:26)
[2018-01-13 22:59] LABS: ARTERIAL BLD GAS O2 SATURATION 93.2 % (90-98.9); ARTERIAL BLOOD GAS pH 7.52 (7.35-7.45)
[2018-01-13 23:19] LABS: ALLENS TEST POSITIVE
[2018-01-13 23:21] LABS: ARTERIAL BLOOD GAS BASE EXCESS 24.2 meq/l (-2-2); ARTERIAL BLOOD GAS PCO2 63.3 mmHg (35-45)
[2018-01-14 00:46] LABS: ALLENS TEST POSITIVE
[2018-01-14 00:50] LABS: ARTERIAL BLOOD GAS BASE EXCESS 24.1 meq/l (-2-2)
--- NOTE | 2018-01-14 00:56 | PN ---
Progress Note (short form) - Note Progress Note: abg at 11:30 ph 7.52, pco2 63, Laboratory Tests 01/13/18 22:48 ABG pH 7.52 H D ABG pCO2 at Pt Temp 63.3 H* D ABG pO2 at Pt Temp 57.0 L D ABG HCO3 51.9 H* ABG O2 Sat (Measured) 93.2 ABG O2 Content 15.0 ABG Base Excess 24.2 H* BIPAP settings changed RR decreased from 24 to 16 pressure supprt decreased from /8 to 16/8 Repeat ABG after one hour shows. ABG Results ABG pH 7.50 (7.35-7.45) H 01/14/18 00:40 ABG pCO2 at Pt Temp 67.0 mmHg (35-45) H* 01/14/18 00:40 ABG pO2 at Pt Temp 62.0 mmHg (80-100) L 01/14/18 00:40 ABG HCO3 52.1 meq/L (22-26) H* 01/14/18 00:40 ABG O2 Sat (Measured) 94.0 % (90-98.9) 01/14/18 00:40 ABG O2 Content 15.2 % vol (15-22) 01/14/18 00:40 ABG Base Excess 24.1 meq/l (-2-2) H* 01/14/18 00:40 continue with same settings repeat abg at 6 am monitor vitals.
[2018-01-14] MEDS: INSULIN SLIDING SCALE (NOVOLOG) 1 VIAL SQ SCH ×4 (06:21→21:17)
[2018-01-14] MEDS: methylPREDNISolone NA SUCC 125 MG/2 ML VIAL IVPB SCH ×3 (06:23→21:15)
[2018-01-14 06:26] LABS: BASO % 0.1 % (0-2.0); HEMATOCRIT 36.5 % (32.4-45.2); HEMOGLOBIN 12.2 GM/dL (10.7-15.3); LYMPH % 2.1 % (8-40); MCH 31.5 pg (25.7-33.7); MCHC 33.5 g/dl (32.0-36.0); MEAN CELL VOLUME 94.1 fl (80-96); MONO % 4.6 % (3.8-10.2); NEUT % 93.2 % (42.8-82.8); PLATELET COUNT 150 K/MM3 (134-434); RBC 3.87 M/mm3 (3.60-5.2); RDW 13.2 % (11.6-15.6); WHITE BLOOD COUNT 8.6 K/mm3 (4.0-10.0)
[2018-01-14 06:32] LABS: ARTERIAL BLD GAS O2 SATURATION 95.4 % (90-98.9); ARTERIAL BLOOD GAS BASE EXCESS 21.7 meq/l (-2-2); ARTERIAL BLOOD GAS PCO2 64.2 mmHg (35-45); ARTERIAL BLOOD GAS PO2 68.7 mmHg (80-100)
[2018-01-14 06:33] LABS: ALLENS TEST POSITIVE
[2018-01-14 06:55] LABS: BLOOD UREA NITROGEN 17 mg/dL (7-18); CALCIUM 9.1 mg/dL (8.5-10.1); CHLORIDE 84 mmol/L (98-107); GLUCOSE,RANDOM 140 mg/dL (74-106); MAGNESIUM 1.8 mg/dL (1.8-2.4); SODIUM 138 mmol/L (136-145)
[2018-01-14 06:59] LABS: ALK PHOS 62 U/L (45-117); BILIRUBIN,TOTAL 0.5 mg/dL (0.2-1.0); CREATININE 0.6 mg/dL (0.55-1.02); PHOSPHOROUS 3.3 mg/dL (2.5-4.9); SGOT/AST 12 U/L (15-37); SGPT/ALT 15 U/L (12-78); TOT PROT 5.5 g/dl (6.4-8.2)
[2018-01-14 07:26] LABS: POTASSIUM 2.9 mmol/L (3.5-5.1)
[2018-01-14] MEDS: ALBUTEROL SO4 2.5/IPRATROPIUM 0.5 INH SOL 3 ML VIAL.NEB. NEB SCH ×3 (08:08→16:15)
[2018-01-14] MEDS ORDERED: POTASSIUM CHLORIDE TABS 20 MEQ TABLET.ER (FP) PO ONE ×2 (08:30→17:15)
[2018-01-14] MEDS: KCL 10 MEQ IVPB 10 MEQ/100 ML INFUS.BAG IVPB SCH ×3 (08:54→15:17)
[2018-01-14] MEDS ORDERED: PT OWN MED DRAWER 7, Y5N ONE (09:01)
[2018-01-14] MEDS: ASCORBIC ACID 500 MG TABLET (FP) PO SCH (09:29)
[2018-01-14] MEDS: ESCITALOPRAM OXALATE 10 MG TABLET (FP) PO SCH (09:29)
[2018-01-14] MEDS: ROFLUMILAST 500 MCG TABLET PO SCH (09:29)
[2018-01-14] MEDS: THIAMINE HCL 100 MG TABLET (FP) PO SCH (09:29)
[2018-01-14] MEDS: LOSARTAN POTASSIUM 25 MG TABLET PO SCH (09:29)
[2018-01-14] MEDS: HEPARIN NA (PORCINE) 5,000 UNITS/ML 1ML VIAL SQ SCH ×2 (09:30→21:15)
[2018-01-14] MEDS: PANTOPRAZOLE 40 MG TABLET (FP) PO SCH (09:30)
[2018-01-14] MEDS: FUROSEMIDE 20 MG TABLET (FP) PO SCH (09:32)
[2018-01-14] MEDS: BUDESONIDE/FORMETEROL FUMARATE 160/4.5 mcg INHALER IH SCH ×2 (09:52→21:22)
[2018-01-14 11:23] LABS: ANISOCYTOSIS 1+; MACROCYTOSIS 1+; PLATELET ESTIMATE DECREASED
--- NOTE | 2018-01-14 11:46 | PN ---
Teaching Attending Note Name of Resident: Milad Lucero ATTENDING PHYSICIAN STATEMENT I saw and evaluated the patient. I reviewed the resident's note and discussed the case with the resident. I agree with the resident's findings and plan as documented. SUBJECTIVE: Patient seen and examined in the ICU. Currently off NIPPV and on VM O2. Breathing is improved from yesterday. No CP. ABG noted: Respiratory alkalosis OBJECTIVE: Intake & Output 01/11/18 01/12/18 01/13/18 01/14/18 23:59 23:59 23:59 23:59 Intake Total 0 400 50 Output Total 50 500 500 Balance -50 -100 -450 Weight 166 lb 166 lb 167 lb Last Vital Signs Temp Pulse Resp BP Pulse Ox 97.8 F 70 26 H 142/70 94 L 01/14/18 02:00 01/14/18 10:00 01/14/18 10:00 01/14/18 10:00 01/14/18 10:34 Active Medications Acetaminophen (Tylenol -) 650 mg PO Q6H PRN PRN Reason: PAIN LEVEL 1-5 Albuterol Sulfate (Ventolin 0.083% Nebulizer Soln -) 1 amp NEB Q4H PRN PRN Reason: WHEEZING Albuterol/Ipratropium (Duoneb -) 1 amp NEB RQID [facility] Last Admin: 01/14/18 08:08 Dose: 1 amp Ascorbic Acid (Vitamin C -) 500 mg PO DAILY [facility] Last Admin: 01/14/18 09:29 Dose: 500 mg Budesonide/Formoterol Fumarate (Symbicort 160/4.5mcg -) 2 puff IH BID [facility] Last Admin: 01/14/18 09:52 Dose: 2 puff Escitalopram Oxalate (Lexapro -) 10 mg PO DAILY [facility] Last Admin: 01/14/18 09:29 Dose: 10 mg Furosemide (Lasix -) 20 mg PO DAILY [facility] Last Admin: 01/14/18 09:32 Dose: 20 mg Guaifenesin (Robitussin -) 10 ml PO Q4H PRN PRN Reason: COUGH Heparin Sodium (Porcine) (Heparin -) 5,000 unit SQ BID [facility] Last Admin: 01/14/18 09:30 Dose: 5,000 unit Potassium Chloride (Potassium Chloride 10 Meq Premix Ivpb -) 10 meq in 100 mls @ 100 mls/hr IVPB Q60M [facility] Stop: 01/14/18 11:59 Last Admin: 01/14/18 10:48 Dose: 100 mls/hr Insulin Aspart (Novolog Vial Sliding Scale -) 1 vial SQ ACHS [facility]; Protocol Last Admin: 01/14/18 11:43 Dose: 4 units Levothyroxine Sodium (Synthroid -) 50 mcg PO DAILY@0700 [facility] Last Admin: 01/14/18 06:23 Dose: 50 mcg Losartan Potassium (Cozaar -) 25 mg PO DAILY [facility] Last Admin: 01/14/18 09:29 Dose: 25 mg Methylprednisolone Sodium Succinate (Solu-Medrol -) 60 mg IVPB Q8H [facility] Last Admin: 01/14/18 06:23 Dose: 60 mg Montelukast Sodium (Singulair -) 10 mg PO HS [facility] Last Admin: 01/13/18 21:25 Dose: 10 mg Pantoprazole Sodium (Protonix -) 40 mg PO DAILY [facility] Last Admin: 01/14/18 09:30 Dose: 40 mg Potassium Chloride (K-Dur -) 10 meq PO DAILY [facility] Last Admin: 01/13/18 10:00 Dose: Not Given Roflumilast (Daliresp -) 500 mcg PO DAILY [facility] Last Admin: 01/14/18 09:29 Dose: 500 mcg Thiamine HCl (Vitamin B1 -) 100 mg PO DAILY [facility] Last Admin: 01/14/18 09:29 Dose: 100 mg Gen: Awake and alert on VM O2, mildly tachypneic at rest Heart: RRR Lung: distant breath sounds, I:E prolonged Abd: soft, nontender Ext: no edema Laboratory Results - last 24 hr 01/13/18 01/13/18 01/13/18 11:48 17:45 21:06 WBC RBC Hgb Hct MCV MCH MCHC RDW Plt Count MPV Absolute Neuts (auto) Neutrophils % Neutrophils % (Manual) Band Neutrophils % Lymphocytes % Lymphocytes % (Manual) Monocytes % Monocytes % (Manual) Eosinophils % Eosinophils % (Manual) Basophils % Basophils % (Manual) Myelocytes % (Man) Promyelocytes % (Man) Blast Cells % (Manual) Nucleated RBC % Metamyelocytes Hypochromia Platelet Estimate Polychromasia Poikilocytosis Anisocytosis Macrocytosis Anticoagulation Therapy Puncture Site ABG pH ABG pCO2 at Pt Temp ABG pO2 at Pt Temp ABG HCO3 ABG O2 Sat (Measured) ABG O2 Content ABG Base Excess [place] Test O2 Delivery Device Oxygen Flow Rate Vent Mode Vent Rate Mechanical Rate PEEP Pressure Support Vent Sodium Potassium Chloride BUN Creatinine Creat Clearance w eGFR POC Glucometer 169.78347 119.19928 131.43852 Random Glucose Calcium Phosphorus Magnesium Total Bilirubin AST ALT Alkaline Phosphatase Total Protein Albumin 01/13/18 01/14/18 01/14/18 22:48 00:40 05:30 WBC 8.6 RBC 3.87 Hgb 12.2 Hct 36.5 MCV 94.1 MCH 31.5 MCHC 33.5 RDW 13.2 Plt Count 150 MPV 9.0 Absolute Neuts (auto) 8.0 Neutrophils % 93.2 H Neutrophils % (Manual) 91.8 H Band Neutrophils % 5.1 Lymphocytes % 2.1 L D Lymphocytes % (Manual) 1.0 L D Monocytes % 4.6 D Monocytes % (Manual) 2 L D Eosinophils % 0.0 Eosinophils % (Manual) 0.0 Basophils % 0.1 Basophils % (Manual) 0.0 Myelocytes % (Man) 0 Promyelocytes % (Man) 0 Blast Cells % (Manual) 0 Nucleated RBC % 0 Metamyelocytes 0 Hypochromia 0 Platelet Estimate Decreased Polychromasia 0 Poikilocytosis 0 Anisocytosis 1+ Macrocytosis 1+ Anticoagulation Therapy No Result Required. No Result Required. Puncture Site Right radial Left radial ABG pH 7.52 H D 7.50 H ABG pCO2 at Pt Temp 63.3 H* D 67.0 H* ABG pO2 at Pt Temp 57.0 L D 62.0 L ABG HCO3 51.9 H* 52.1 H* ABG O2 Sat (Measured) 93.2 94.0 ABG O2 Content 15.0 15.2 ABG Base Excess 24.2 H* 24.1 H* [place] Test Positive Positive O2 Delivery Device Bipap Bipap Oxygen Flow Rate 40 40% Vent Mode No Result Required. St Vent Rate No Result Required. 16 Mechanical Rate No Result Required. Yes PEEP 8.0 Pressure Support Vent No Result Required. 16 Sodium Potassium Chloride BUN Creatinine Creat Clearance w eGFR POC Glucometer Random Glucose Calcium Phosphorus Magnesium Total Bilirubin AST ALT Alkaline Phosphatase Total Protein Albumin 01/14/18 01/14/18 05:30 06:20 WBC RBC Hgb Hct MCV MCH MCHC RDW Plt Count MPV Absolute Neuts (auto) Neutrophils % Neutrophils % (Manual) Band Neutrophils % Lymphocytes % Lymphocytes % (Manual) Monocytes % Monocytes % (Manual) Eosinophils % Eosinophils % (Manual) Basophils % Basophils % (Manual) Myelocytes % (Man) Promyelocytes % (Man) Blast Cells % (Manual) Nucleated RBC % Metamyelocytes Hypochromia Platelet Estimate Polychromasia Poikilocytosis Anisocytosis Macrocytosis Anticoagulation Therapy Puncture Site Left radial ABG pH 7.50 H ABG pCO2 at Pt Temp 64.2 H* ABG pO2 at Pt Temp 68.7 L ABG HCO3 49.2 H* ABG O2 Sat (Measured) 95.4 ABG O2 Content 15.7 ABG Base Excess 21.7 H* [place] Test Positive O2 Delivery Device Bipap Oxygen Flow Rate 40% Vent Mode St Vent Rate 16 Mechanical Rate Yes PEEP 8.0 Pressure Support Vent 16 Sodium 138 Potassium 2.9 L* Chloride 84 L BUN 17 Creatinine 0.6 Creat Clearance w eGFR > 60 POC Glucometer Random Glucose 140 H Calcium 9.1 Phosphorus 3.3 Magnesium 1.8 Total Bilirubin 0.5 AST 12 L ALT 15 Alkaline Phosphatase 62 Total Protein 5.5 L Albumin 3.0 L ASSESSMENT AND PLAN: Acute on Chronic Hypoxic and Hypercapneic Respiratory Failure Acute COPD Exacerbation r/o Pneumonia LV Diastolic Dysfunction HTN Hypothyroidism - IV medrol - inhaled bronchodilators standing and PRN - NIPPV as needed - titrate O2 to keep Spo2 88-92% to avoid worsening V/Q mismatch - Monitor off ABX - aspiration precautions - DVT/GI prophylaxis - 4W/4S monitoring Dr Jennings Critical care time spent in reviewing chart, evaluating patient and formulating plan - 36 minutes.
[2018-01-14 11:50] LABS: ANION GAP 1 (8-16); CO2 53 mmol/L (21-32)
--- NOTE | 2018-01-14 14:05 | PN ---
Physical Exam: SUBJECTIVE: Patient seen and examined today in ICU. No longer on BIPAP machine, now on venti mask 40%. More oriented and alert. This afternoon c/o chest tightness, received 1 amp albuterol neb. Denies cp, sob, or headache. OBJECTIVE: Vital Signs Period Temp Pulse Resp BP Sys/Domínguez Pulse Ox Last 24 Hr 97.8 F-98.6 F 67-92 18-27 116-144/62-89 90-97 GENERAL: Alert, oriented. Resting comfortably. HEAD: NC/AT EYES: EOMI. LUNGS: BS distant HEART: RRR ABDOMEN: Soft,ND, NT, No HSM EXTREMITIES: pulses 2+ B/L feet. NEUROLOGICAL: No Neuro Deficits Laboratory Results - last 24 hr 01/13/18 01/13/18 01/13/18 17:45 21:06 22:48 WBC RBC Hgb Hct MCV MCH MCHC RDW Plt Count MPV Absolute Neuts (auto) Neutrophils % Neutrophils % (Manual) Band Neutrophils % Lymphocytes % Lymphocytes % (Manual) Monocytes % Monocytes % (Manual) Eosinophils % Eosinophils % (Manual) Basophils % Basophils % (Manual) Myelocytes % (Man) Promyelocytes % (Man) Blast Cells % (Manual) Nucleated RBC % Metamyelocytes Hypochromia Platelet Estimate Polychromasia Poikilocytosis Anisocytosis Macrocytosis Anticoagulation Therapy No Result Required. Puncture Site Right radial ABG pH 7.52 H D ABG pCO2 at Pt Temp 63.3 H* D ABG pO2 at Pt Temp 57.0 L D ABG HCO3 51.9 H* ABG O2 Sat (Measured) 93.2 ABG O2 Content 15.0 ABG Base Excess 24.2 H* Everton Test Positive O2 Delivery Device Bipap Oxygen Flow Rate 40 Vent Mode No Result Required. Vent Rate No Result Required. Mechanical Rate No Result Required. PEEP Pressure Support Vent No Result Required. Sodium Potassium Chloride Carbon Dioxide Anion Gap BUN Creatinine Creat Clearance w eGFR POC Glucometer 119.64171 131.65698 Random Glucose Calcium Phosphorus Magnesium Total Bilirubin AST ALT Alkaline Phosphatase Total Protein Albumin 01/14/18 01/14/18 01/14/18 00:40 05:30 05:30 WBC 8.6 RBC 3.87 Hgb 12.2 Hct 36.5 MCV 94.1 MCH 31.5 MCHC 33.5 RDW 13.2 Plt Count 150 MPV 9.0 Absolute Neuts (auto) 8.0 Neutrophils % 93.2 H Neutrophils % (Manual) 91.8 H Band Neutrophils % 5.1 Lymphocytes % 2.1 L D Lymphocytes % (Manual) 1.0 L D Monocytes % 4.6 D Monocytes % (Manual) 2 L D Eosinophils % 0.0 Eosinophils % (Manual) 0.0 Basophils % 0.1 Basophils % (Manual) 0.0 Myelocytes % (Man) 0 Promyelocytes % (Man) 0 Blast Cells % (Manual) 0 Nucleated RBC % 0 Metamyelocytes 0 Hypochromia 0 Platelet Estimate Decreased Polychromasia 0 Poikilocytosis 0 Anisocytosis 1+ Macrocytosis 1+ Anticoagulation Therapy No Result Required. Puncture Site Left radial ABG pH 7.50 H ABG pCO2 at Pt Temp 67.0 H* ABG pO2 at Pt Temp 62.0 L ABG HCO3 52.1 H* ABG O2 Sat (Measured) 94.0 ABG O2 Content 15.2 ABG Base Excess 24.1 H* Ever[place] Test Positive O2 Delivery Device Bipap Oxygen Flow Rate 40% Vent Mode St Vent Rate 16 Mechanical Rate Yes PEEP 8.0 Pressure Support Vent 16 Sodium 138 Potassium 2.9 L* Chloride 84 L Carbon Dioxide 53 H Anion Gap 1 L BUN 17 Creatinine 0.6 Creat Clearance w eGFR > 60 POC Glucometer Random Glucose 140 H Calcium 9.1 Phosphorus 3.3 Magnesium 1.8 Total Bilirubin 0.5 AST 12 L ALT 15 Alkaline Phosphatase 62 Total Protein 5.5 L Albumin 3.0 L 01/14/18 01/14/18 01/14/18 06:13 06:20 11:40 WBC RBC Hgb Hct MCV MCH MCHC RDW Plt Count MPV Absolute Neuts (auto) Neutrophils % Neutrophils % (Manual) Band Neutrophils % Lymphocytes % Lymphocytes % (Manual) Monocytes % Monocytes % (Manual) Eosinophils % Eosinophils % (Manual) Basophils % Basophils % (Manual) Myelocytes % (Man) Promyelocytes % (Man) Blast Cells % (Manual) Nucleated RBC % Metamyelocytes Hypochromia Platelet Estimate Polychromasia Poikilocytosis Anisocytosis Macrocytosis Anticoagulation Therapy Puncture Site Left radial ABG pH 7.50 H ABG pCO2 at Pt Temp 64.2 H* ABG pO2 at Pt Temp 68.7 L ABG HCO3 49.2 H* ABG O2 Sat (Measured) 95.4 ABG O2 Content 15.7 ABG Base Excess 21.7 H* Ever[place] Test Positive O2 Delivery Device Bipap Oxygen Flow Rate 40% Vent Mode St Vent Rate 16 Mechanical Rate Yes PEEP 8.0 Pressure Support Vent 16 Sodium Potassium Chloride Carbon Dioxide Anion Gap BUN Creatinine Creat Clearance w eGFR POC Glucometer 92.14541 216.24611 Random Glucose Calcium Phosphorus Magnesium Total Bilirubin AST ALT Alkaline Phosphatase Total Protein Albumin Active Medications Generic Name Dose Route Start Last Admin Trade Name Freq PRN Reason Stop Dose Admin Acetaminophen 650 mg 01/12/18 21:56 Tylenol - PO Q6H PRN PAIN LEVEL 1-5 Albuterol Sulfate 1 amp 01/12/18 21:58 Ventolin 0.083% Nebulizer Soln - NEB Q4H PRN WHEEZING Albuterol/Ipratropium 1 amp 01/13/18 08:00 01/14/18 12:06 Duoneb - NEB 1 amp RQID HANSEL Administration Ascorbic Acid 500 mg 01/13/18 13:30 01/14/18 09:29 Vitamin C - PO 500 mg DAILY HANSEL Administration Budesonide/Formoterol Fumarate 2 puff 01/13/18 22:00 01/14/18 09:52 Symbicort 160/4.5mcg - IH 2 puff BID HANSEL Administration Escitalopram Oxalate 10 mg 01/13/18 10:00 01/14/18 09:29 Lexapro - PO 10 mg DAILY HANSEL Administration Furosemide 20 mg 01/13/18 10:00 01/14/18 09:32 Lasix - PO 20 mg DAILY HANSEL Administration Guaifenesin 10 ml 01/12/18 21:56 Robitussin - PO Q4H PRN COUGH Heparin Sodium (Porcine) 5,000 unit 01/12/18 22:00 01/14/18 09:30 Heparin - SQ 5,000 unit BID HANSEL Administration Insulin Aspart 1 vial 01/13/18 07:00 01/14/18 11:43 Novolog Vial Sliding Scale - SQ 4 units ACHS HANSEL Administration Protocol Levothyroxine Sodium 50 mcg 01/13/18 13:30 01/14/18 06:23 Synthroid - PO 50 mcg DAILY@0700 HANSLE Administration Losartan Potassium 25 mg 01/13/18 10:00 01/14/18 09:29 Cozaar - PO 25 mg DAILY HANSEL Administration Methylprednisolone Sodium Succinate 60 mg 01/12/18 22:00 01/14/18 06:23 Solu-Medrol - IVPB 60 mg Q8H HANSEL Administration Montelukast Sodium 10 mg 01/12/18 22:00 01/13/18 21:25 Singulair - PO 10 mg HS HANSEL Administration Pantoprazole Sodium 40 mg 01/13/18 10:00 01/14/18 09:30 Protonix - PO 40 mg DAILY HANSEL Administration Potassium Chloride 10 meq 01/13/18 10:00 01/13/18 10:00 K-Dur - PO Not Given DAILY HANSEL Roflumilast 500 mcg 01/13/18 10:00 01/14/18 09:29 Daliresp - PO 500 mcg DAILY HANSEL Administration Thiamine HCl 100 mg 01/13/18 13:30 01/14/18 09:29 Vitamin B1 - PO 100 mg DAILY HANSEL Administration ASSESSMENT/PLAN: 57 year old female with a with a pmh of COPD, HTN, pneumonia, CHF, hypothyroidism, chronic back pain, and COPD. Acute on chronic hypercapneic Respiratory Failure Acute Exacerbation COPD Venti mask 40%. Singulair 10 mg PO Solu-Medrol 60 mg IVPB Q8H Symbicort 160/4.5mcg Duoneb 1 amp NEB Albuterol Sulfate 1 amp neb Q4H PRN Urine Antigens for Pneumonia- NEGATIVE Urine Antigen Legionella- NEGATIVE Chest X-Ray 01/14-No change since X-Ray 01/13. Minimal platelike atelectasis left base ABG 01/14: PCO2 64.2, HCO3 49.2, Base excess 21.7, ABG PH 7.52 HTN Cozaar 25 mg PO Daily EKG 01/12- WNL. Hypothyroidism Synthroid 50 mcg PO Daily DVT PPX Hep 5,000 U SQ BID FEN No Fluids Monitor Electrolytes Diabetic Diet Dispo Transfer to med-surg today. Visit type - Emergency Visit Emergency Visit: Yes ED Registration Date: 01/12/18 Care time: The patient presented to the Emergency Department on the above date and was hospitalized for further evaluation of their emergent condition. - New Patient This patient is new to me today: No - Critical Care Critical Care patient: Yes Total Critical Care Time (in minutes): 36 Critical Care Statement: The care of this patient involved high complexity decision making to prevent further life threatening deterioration of the patient 's condition and/or to evaluate & treat vital organ system(s) failure or risk of failure.
--- NOTE | 2018-01-14 14:58 | PN ---
Progress Note, Physician Chief Complaint: in ICU on bipap, better; less SOB less cough afebrile, no sputum, no CP. - Current Medication List Current Medications: Active Medications Acetaminophen (Tylenol -) 650 mg PO Q6H PRN PRN Reason: PAIN LEVEL 1-5 Albuterol Sulfate (Ventolin 0.083% Nebulizer Soln -) 1 amp NEB Q4H PRN PRN Reason: WHEEZING Last Admin: 01/14/18 13:59 Dose: 1 amp Albuterol/Ipratropium (Duoneb -) 1 amp NEB RQID [facility] Last Admin: 01/14/18 12:06 Dose: 1 amp Ascorbic Acid (Vitamin C -) 500 mg PO DAILY [facility] Last Admin: 01/14/18 09:29 Dose: 500 mg Budesonide/Formoterol Fumarate (Symbicort 160/4.5mcg -) 2 puff IH BID [facility] Last Admin: 01/14/18 09:52 Dose: 2 puff Escitalopram Oxalate (Lexapro -) 10 mg PO DAILY [facility] Last Admin: 01/14/18 09:29 Dose: 10 mg Furosemide (Lasix -) 20 mg PO DAILY [facility] Last Admin: 01/14/18 09:32 Dose: 20 mg Guaifenesin (Robitussin -) 10 ml PO Q4H PRN PRN Reason: COUGH Heparin Sodium (Porcine) (Heparin -) 5,000 unit SQ BID [facility] Last Admin: 01/14/18 09:30 Dose: 5,000 unit Insulin Aspart (Novolog Vial Sliding Scale -) 1 vial SQ ACHS [facility]; Protocol Last Admin: 01/14/18 11:43 Dose: 4 units Levothyroxine Sodium (Synthroid -) 50 mcg PO DAILY@0700 [facility] Last Admin: 01/14/18 06:23 Dose: 50 mcg Losartan Potassium (Cozaar -) 25 mg PO DAILY [facility] Last Admin: 01/14/18 09:29 Dose: 25 mg Methylprednisolone Sodium Succinate (Solu-Medrol -) 60 mg IVPB Q8H [facility] Last Admin: 01/14/18 06:23 Dose: 60 mg Montelukast Sodium (Singulair -) 10 mg PO HS [facility] Last Admin: 01/13/18 21:25 Dose: 10 mg Pantoprazole Sodium (Protonix -) 40 mg PO DAILY [facility] Last Admin: 01/14/18 09:30 Dose: 40 mg Potassium Chloride (K-Dur -) 10 meq PO DAILY [facility] Last Admin: 01/13/18 10:00 Dose: Not Given Roflumilast (Daliresp -) 500 mcg PO DAILY [facility] Last Admin: 01/14/18 09:29 Dose: 500 mcg Thiamine HCl (Vitamin B1 -) 100 mg PO DAILY [facility] Last Admin: 01/14/18 09:29 Dose: 100 mg - Objective Vital Signs: Vital Signs Temperature 98.6 F 01/14/18 12:00 Pulse Rate 92 H 01/14/18 12:00 Respiratory Rate 27 H 01/14/18 12:00 Blood Pressure 128/66 01/14/18 12:00 O2 Sat by Pulse Oximetry (%) 94 L 01/14/18 13:59 Constitutional: Yes: No Distress, Calm Eyes: Yes: Conjunctiva Clear HENT: Yes: Atraumatic Neck: Yes: Supple Cardiovascular: Yes: Regular Rate and Rhythm Respiratory: Yes: Diminished, Rales, Rhonchi Gastrointestinal: Yes: Soft. No: Distention, Tenderness Genitourinary: No: CVA Tenderness - Left, CVA Tenderness - Right Musculoskeletal: No: Joint Stiffness, Joint Swelling Extremities: No: Cold, Cool, Cyanosis Edema: No Integumentary: No: Rash, Venous Stasis Changes Neurological: Yes: WNL, Alert, Oriented ...Motor Strength: WNL Psychiatric: Yes: WNL, Alert, Oriented. No: Agitated, Suicidal Ideation Labs: CBC, BMP 01/14/18 05:30 01/14/18 05:30 INR, PTT INR 0.93 (0.82-1.09) 01/12/18 20:00 - ....Imaging Other: Report Reviewed Assessment/Plan Patient is a 57 year old female with a significant past medical history of COPD , HTN, CHF, hypothyroidism, chronic back pain, COPD O2 dep, with history of prior intubation, on home 4L continuously, and ICU admission who presents to the ED with complaints of shortness of breath and lethargy, not using her Trilogy machine at home as she should IV solumedrol nebs bipap.. admitted to ICU iv antibiotics pulm ICU f/u DVT pfx falls PFX check BGM while on steroids; gastric PFX prognosis guarded d/w pt and ; d/w staff d/w pt's PCP dr Navarro T time 40 min
[2018-01-14 17:00] LABS: BLOOD UREA NITROGEN 19 mg/dL (7-18); CALCIUM 9.3 mg/dL (8.5-10.1); CHLORIDE 85 mmol/L (98-107); CREATININE 0.8 mg/dL (0.55-1.02); GLUCOSE,RANDOM 193 mg/dL (74-106); SODIUM 138 mmol/L (136-145)
[2018-01-14 17:02] LABS: POTASSIUM 2.9 mmol/L (3.5-5.1)
[2018-01-14 17:12] LABS: ANION GAP 6 (8-16); CO2 47 mmol/L (21-32)
[2018-01-14] MEDS ORDERED: KCL 10 MEQ IVPB 10 MEQ/100 ML INFUS.BAG IVPB SCH (17:30)
[2018-01-14] MEDS ORDERED: ALBUTEROL SO4 0.083% IH SOL 2.5 MG/3 ML VIAL.NEB. NEB PRN (20:18)
[2018-01-14] MEDS ORDERED: guaiFENesin 200 MG/10 ML 10 ML UNIT-DOSE CUPS PO PRN (20:18)
[2018-01-14] MEDS ORDERED: ACETAMINOPHEN 325 MG TABLET (FP) PO PRN (20:18)
[2018-01-14] MEDS ORDERED: INSULIN (NOVOLOG) ASPART 100 UNITS/ML 10ML VIAL ONE (21:10)
[2018-01-14] MEDS: MONTELUKAST NA 10 MG TABLET PO SCH (21:16)
[2018-01-14] MEDS: POTASSIUM CHLORIDE TABS 20 MEQ TABLET.ER (FP) PO SCH (21:16)
[2018-01-15] MEDS: methylPREDNISolone NA SUCC 125 MG/2 ML VIAL IVPB SCH ×3 (06:25→21:51)
[2018-01-15] MEDS: LEVOTHYROXINE NA 50 MCG TABLET (FP) PO SCH (06:26)
[2018-01-15] MEDS ORDERED: INSULIN (NOVOLOG) ASPART 100 UNITS/ML 10ML VIAL ONE ×2 (06:27→21:26)
[2018-01-15 07:02] LABS: BASO % 0.3 % (0-2.0); HEMATOCRIT 35.2 % (32.4-45.2); HEMOGLOBIN 11.6 GM/dL (10.7-15.3); LYMPH % 1.7 % (8-40); MCH 31.1 pg (25.7-33.7); MCHC 32.9 g/dl (32.0-36.0); MEAN CELL VOLUME 94.4 fl (80-96); MEAN PLT VOLUME 8.8 fl (7.5-11.1); MONO % 4.6 % (3.8-10.2); NEUT % 93.4 % (42.8-82.8); PLATELET COUNT 146 K/MM3 (134-434); RBC 3.73 M/mm3 (3.60-5.2); RDW 13.7 % (11.6-15.6); WHITE BLOOD COUNT 7.9 K/mm3 (4.0-10.0)
[2018-01-15] MEDS: INSULIN SLIDING SCALE (NOVOLOG) 1 VIAL SQ SCH ×4 (07:21→21:38)
[2018-01-15 07:23] LABS: BLOOD UREA NITROGEN 22 mg/dL (7-18); CALCIUM 8.9 mg/dL (8.5-10.1); CHLORIDE 91 mmol/L (98-107); CREATININE 0.7 mg/dL (0.55-1.02); GLUCOSE,RANDOM 159 mg/dL (74-106); MAGNESIUM 1.9 mg/dL (1.8-2.4); POTASSIUM 3.8 mmol/L (3.5-5.1); SODIUM 140 mmol/L (136-145)
[2018-01-15] MEDS: ALBUTEROL SO4 2.5/IPRATROPIUM 0.5 INH SOL 3 ML VIAL.NEB. NEB SCH ×4 (08:08→20:43)
[2018-01-15 08:59] LABS: ANION GAP 2 (8-16); CO2 47 mmol/L (21-32)
--- NOTE | 2018-01-15 09:58 | PN ---
Progress Note, Physician Chief Complaint: transferred to 6S in bed awake alert NAD afebrile VSS, on O2 NC but has Bipap at bedside - Current Medication List Current Medications: Active Medications Acetaminophen (Tylenol -) 650 mg PO Q6H PRN PRN Reason: PAIN LEVEL 1-5 Albuterol Sulfate (Ventolin 0.083% Nebulizer Soln -) 1 amp NEB Q4H PRN PRN Reason: WHEEZING Last Admin: 01/14/18 21:52 Dose: 1 amp Albuterol/Ipratropium (Duoneb -) 1 amp NEB RQID [facility] Last Admin: 01/15/18 08:08 Dose: 1 amp Ascorbic Acid (Vitamin C -) 500 mg PO DAILY [facility] Budesonide/Formoterol Fumarate (Symbicort 160/4.5mcg -) 2 puff IH BID [facility] Last Admin: 01/14/18 21:22 Dose: 2 puff Escitalopram Oxalate (Lexapro -) 10 mg PO DAILY [facility] Furosemide (Lasix -) 20 mg PO DAILY [facility] Guaifenesin (Robitussin -) 10 ml PO Q4H PRN PRN Reason: COUGH Heparin Sodium (Porcine) (Heparin -) 5,000 unit SQ BID [facility] Last Admin: 01/14/18 21:15 Dose: 5,000 unit Insulin Aspart (Novolog Vial Sliding Scale -) 1 vial SQ [facility]; Protocol Last Admin: 01/15/18 07:21 Dose: 2 units Levothyroxine Sodium (Synthroid -) 50 mcg PO DAILY@0700 [facility] Last Admin: 01/15/18 06:26 Dose: 50 mcg Losartan Potassium (Cozaar -) 25 mg PO DAILY [facility] Methylprednisolone Sodium Succinate (Solu-Medrol -) 60 mg IVPB Q8H [facility] Last Admin: 01/15/18 06:25 Dose: 60 mg Montelukast Sodium (Singulair -) 10 mg PO HS [facility] Last Admin: 01/14/18 21:16 Dose: 10 mg Pantoprazole Sodium (Protonix -) 40 mg PO DAILY [facility] Potassium Chloride (K-Dur -) 20 meq PO BID [facility] Last Admin: 01/14/18 21:16 Dose: 20 meq Roflumilast (Daliresp -) 500 mcg PO DAILY [facility] Thiamine HCl (Vitamin B1 -) 100 mg PO DAILY [facility] - Objective Vital Signs: Vital Signs Temperature 98.4 F 01/15/18 05:40 Pulse Rate 78 01/15/18 05:40 Respiratory Rate 22 01/15/18 05:40 Blood Pressure 122/78 01/15/18 05:40 O2 Sat by Pulse Oximetry (%) 92 L 01/15/18 01:25 Constitutional: Yes: No Distress, Calm Eyes: Yes: Conjunctiva Clear HENT: Yes: Atraumatic Neck: Yes: Supple Cardiovascular: Yes: Regular Rate and Rhythm Respiratory: Yes: Diminished, Rales. No: SOB Gastrointestinal: Yes: Soft. No: Distention Genitourinary: No: CVA Tenderness - Left, CVA Tenderness - Right Musculoskeletal: No: Joint Stiffness, Joint Swelling Edema: No Integumentary: No: Rash, Venous Stasis Changes Neurological: Yes: WNL, Alert, Oriented ...Motor Strength: WNL Psychiatric: Yes: WNL, Alert, Oriented. No: Agitated, Suicidal Ideation Labs: CBC, BMP 01/15/18 06:30 01/15/18 06:30 INR, PTT INR 0.93 (0.82-1.09) 01/12/18 20:00 - ....Imaging Other: Report Reviewed Assessment/Plan Patient is a 57 year old female with a significant past medical history of COPD , HTN, CHF, hypothyroidism, chronic back pain, COPD O2 dep, with history of prior intubation, on home 4L continuously, and ICU admission who presents to the ED with complaints of shortness of breath and lethargy, s/p acute COPD exac and acute respiratory failure, now improved IV solumedrol nebs bipap.. iv antibiotics pulm f/u DVT pfx falls PFX check BGM while on steroids; gastric PFX prognosis guarded d/w pt and ; d/w staff PT rehab for OOB
[2018-01-15] MEDS: BUDESONIDE/FORMETEROL FUMARATE 160/4.5 mcg INHALER IH SCH ×2 (10:02→21:33)
[2018-01-15] MEDS: HEPARIN NA (PORCINE) 5,000 UNITS/ML 1ML VIAL SQ SCH ×2 (10:02→21:33)
[2018-01-15] MEDS: PANTOPRAZOLE 40 MG TABLET (FP) PO SCH (10:03)
[2018-01-15] MEDS: POTASSIUM CHLORIDE TABS 20 MEQ TABLET.ER (FP) PO SCH ×2 (10:03→21:33)
[2018-01-15] MEDS: ASCORBIC ACID 500 MG TABLET (FP) PO SCH (10:03)
[2018-01-15] MEDS: THIAMINE HCL 100 MG TABLET (FP) PO SCH (10:03)
[2018-01-15] MEDS: ROFLUMILAST 500 MCG TABLET PO SCH (10:03)
[2018-01-15] MEDS: ESCITALOPRAM OXALATE 10 MG TABLET (FP) PO SCH (10:03)
[2018-01-15] MEDS: FUROSEMIDE 20 MG TABLET (FP) PO SCH (10:03)
[2018-01-15] MEDS: LOSARTAN POTASSIUM 25 MG TABLET PO SCH (10:03)
--- NOTE | 2018-01-15 12:35 | PN ---
Progress Note (short form) - Note Progress Note: PULMONARY AWAKE/ALERT/APPEARS DYSPNEIC AT REST VSS/AFEBRILE ANICTERIC DIMINISHED B/L BREATH SOUNDS S1S2 BS+ NO EDEMA LABS/MEDS/IMAGES/NOTES REVIEWED URINE ANTIGENS NEGATIVE Acute on Chronic Hypoxic and Hypercapneic Respiratory Failure Acute COPD Exacerbation r/o Pneumonia LV Diastolic Dysfunction HTN Hypothyroidism - IV medrol same dose for now - inhaled bronchodilators standing and PRN - BiPAP for acute hypercapnea - titrate O2 to keep Spo2 88-92% to avoid worsening V/Q mismatch - empiric antibiotics - monitor ABG - aspiration precautions - DVT/GI prophylaxis - continue in hospital treatment Parul ALEGRE MD
[2018-01-15 13:55] LABS: ACANTHOCYTES 0; ANISOCYTOSIS 0; HELMET CELLS 0; HOWELL-JOLLY BODIES 0; MACROCYTOSIS 0; OVALOCYTE 0; PLATELET ESTIMATE DECREASED; ROULEAU 0; SICKELED CELLS 0; TARGET CELLS 0; TEAR DROP CELLS 0; TOXIC GRANULATION 0
[2018-01-15] MEDS ORDERED: PT OWN MED DRAWER 7, Y5N ONE (21:26)
[2018-01-15] MEDS: MONTELUKAST NA 10 MG TABLET PO SCH (21:33)
[2018-01-16] MEDS ORDERED: PT OWN MED DRAWER 7, Y5N ONE ×3 (00:47→21:06)
[2018-01-16] MEDS: methylPREDNISolone NA SUCC 125 MG/2 ML VIAL IVPB SCH (06:01)
[2018-01-16] MEDS: INSULIN SLIDING SCALE (NOVOLOG) 1 VIAL SQ SCH ×4 (06:05→21:20)
[2018-01-16] MEDS: LEVOTHYROXINE NA 50 MCG TABLET (FP) PO SCH (06:06)
[2018-01-16 07:17] LABS: BASO % 0.1 % (0-2.0); HEMOGLOBIN 11.6 GM/dL (10.7-15.3); LYMPH % 2.2 % (8-40); MCH 30.9 pg (25.7-33.7); MCHC 32.3 g/dl (32.0-36.0); MEAN CELL VOLUME 95.7 fl (80-96); MEAN PLT VOLUME 9.4 fl (7.5-11.1); MONO % 5.7 % (3.8-10.2); PLATELET COUNT 134 K/MM3 (134-434); RBC 3.76 M/mm3 (3.60-5.2); RDW 13.8 % (11.6-15.6); WHITE BLOOD COUNT 6.8 K/mm3 (4.0-10.0)
[2018-01-16] MEDS: ALBUTEROL SO4 2.5/IPRATROPIUM 0.5 INH SOL 3 ML VIAL.NEB. NEB SCH ×4 (08:15→20:30)
--- NOTE | 2018-01-16 08:26 | PN ---
Progress Note, Physician Chief Complaint: stable, still on same IV steroids per pulm - Current Medication List Current Medications: Active Medications Acetaminophen (Tylenol -) 650 mg PO Q6H PRN PRN Reason: PAIN LEVEL 1-5 Albuterol Sulfate (Ventolin 0.083% Nebulizer Soln -) 1 amp NEB Q4H PRN PRN Reason: WHEEZING Last Admin: 01/14/18 21:52 Dose: 1 amp Albuterol/Ipratropium (Duoneb -) 1 amp NEB RQID [facility] Last Admin: 01/15/18 20:43 Dose: 1 amp Ascorbic Acid (Vitamin C -) 500 mg PO DAILY [facility] Last Admin: 01/15/18 10:03 Dose: 500 mg Budesonide/Formoterol Fumarate (Symbicort 160/4.5mcg -) 2 puff IH BID [facility] Last Admin: 01/15/18 21:33 Dose: 2 puff Escitalopram Oxalate (Lexapro -) 10 mg PO DAILY [facility] Last Admin: 01/15/18 10:03 Dose: 10 mg Furosemide (Lasix -) 20 mg PO DAILY [facility] Last Admin: 01/15/18 10:03 Dose: 20 mg Guaifenesin (Robitussin -) 10 ml PO Q4H PRN PRN Reason: COUGH Heparin Sodium (Porcine) (Heparin -) 5,000 unit SQ BID [facility] Last Admin: 01/15/18 21:33 Dose: 5,000 unit Insulin Aspart (Novolog Vial Sliding Scale -) 1 vial SQ ACHS [facility]; Protocol Last Admin: 01/16/18 06:05 Dose: Not Given Levothyroxine Sodium (Synthroid -) 50 mcg PO DAILY@0700 [facility] Last Admin: 01/16/18 06:06 Dose: 50 mcg Losartan Potassium (Cozaar -) 25 mg PO DAILY [facility] Last Admin: 01/15/18 10:03 Dose: 25 mg Methylprednisolone Sodium Succinate (Solu-Medrol -) 60 mg IVPB Q8H [facility] Last Admin: 01/16/18 06:01 Dose: 60 mg Montelukast Sodium (Singulair -) 10 mg PO HS [facility] Last Admin: 01/15/18 21:33 Dose: 10 mg Pantoprazole Sodium (Protonix -) 40 mg PO DAILY [facility] Last Admin: 01/15/18 10:03 Dose: 40 mg Potassium Chloride (K-Dur -) 20 meq PO BID [facility] Last Admin: 01/15/18 21:33 Dose: 20 meq Roflumilast (Daliresp -) 500 mcg PO DAILY [facility] Last Admin: 01/15/18 10:03 Dose: 500 mcg Thiamine HCl (Vitamin B1 -) 100 mg PO DAILY [facility] Last Admin: 01/15/18 10:03 Dose: 100 mg - Objective Vital Signs: Vital Signs Temperature 98.2 F 01/16/18 06:00 Pulse Rate 63 01/16/18 06:00 Respiratory Rate 20 01/16/18 06:00 Blood Pressure 105/68 01/16/18 06:00 O2 Sat by Pulse Oximetry (%) 96 01/16/18 06:00 Constitutional: Yes: No Distress, Calm Eyes: Yes: Conjunctiva Clear HENT: Yes: Atraumatic Neck: Yes: Supple Cardiovascular: Yes: Regular Rate and Rhythm Respiratory: Yes: CTA Bilaterally Gastrointestinal: Yes: Soft. No: Tenderness Genitourinary: No: CVA Tenderness - Left, CVA Tenderness - Right Musculoskeletal: No: Joint Stiffness, Joint Swelling Extremities: No: Cold, Cool, Cyanosis Edema: No Integumentary: No: Rash, Venous Stasis Changes Neurological: Yes: WNL, Alert, Oriented ...Motor Strength: WNL Psychiatric: Yes: WNL, Alert, Oriented. No: Agitated, Suicidal Ideation Labs: CBC, BMP 01/16/18 06:15 INR, PTT INR 0.93 (0.82-1.09) 01/12/18 20:00 - ....Imaging Other: Report Reviewed Assessment/Plan Patient is a 57 year old female with a significant past medical history of COPD , HTN, CHF, hypothyroidism, chronic back pain, COPD O2 dep, with history of prior intubation, on home 4L continuously, and ICU admission who presents to the ED with complaints of shortness of breath and lethargy, s/p acute COPD exac and acute respiratory failure, improved and stable IV solumedrol nebs bipap.. iv antibiotics f/u labs pulm f/u DVT pfx falls PFX check BGM while on steroids; gastric PFX prognosis guarded d/w pt and staff PT rehab for OOB
[2018-01-16 09:14] LABS: ALBUMIN 3.2 g/dl (3.4-5.0); ANION GAP 5 (8-16); BILIRUBIN,TOTAL 0.5 mg/dL (0.2-1.0); BLOOD UREA NITROGEN 25 mg/dL (7-18); CALCIUM 9.1 mg/dL (8.5-10.1); CHLORIDE 93 mmol/L (98-107); CO2 44 mmol/L (21-32); CREATININE 0.6 mg/dL (0.55-1.02); GLUCOSE,RANDOM 127 mg/dL (74-106); POTASSIUM 4.1 mmol/L (3.5-5.1); SGOT/AST 15 U/L (15-37); SGPT/ALT 18 U/L (12-78); SODIUM 142 mmol/L (136-145); TOT PROT 5.8 g/dl (6.4-8.2)
[2018-01-16 09:15] LABS: ALK PHOS 52 U/L (45-117)
[2018-01-16 09:54] LABS: ACANTHOCYTES 0; ANISOCYTOSIS 0; HELMET CELLS 0; HOWELL-JOLLY BODIES 0; MACROCYTOSIS 0; OVALOCYTE 0; PLATELET ESTIMATE DECREASED; ROULEAU 0; SICKELED CELLS 0; TARGET CELLS 0; TEAR DROP CELLS 0; TOXIC GRANULATION 0
[2018-01-16] MEDS: ROFLUMILAST 500 MCG TABLET PO SCH (10:03)
[2018-01-16] MEDS: BUDESONIDE/FORMETEROL FUMARATE 160/4.5 mcg INHALER IH SCH ×2 (10:03→21:10)
[2018-01-16] MEDS: ESCITALOPRAM OXALATE 10 MG TABLET (FP) PO SCH (10:04)
[2018-01-16] MEDS: LOSARTAN POTASSIUM 25 MG TABLET PO SCH (10:04)
[2018-01-16] MEDS: POTASSIUM CHLORIDE TABS 20 MEQ TABLET.ER (FP) PO SCH ×2 (10:04→12:46)
[2018-01-16] MEDS: FUROSEMIDE 20 MG TABLET (FP) PO SCH (10:04)
[2018-01-16] MEDS: PANTOPRAZOLE 40 MG TABLET (FP) PO SCH (10:04)
[2018-01-16] MEDS: THIAMINE HCL 100 MG TABLET (FP) PO SCH (10:05)
[2018-01-16] MEDS: ASCORBIC ACID 500 MG TABLET (FP) PO SCH (10:05)
[2018-01-16] MEDS: HEPARIN NA (PORCINE) 5,000 UNITS/ML 1ML VIAL SQ SCH ×2 (10:06→21:09)
[2018-01-16] MEDS ORDERED: INSULIN (NOVOLOG) ASPART 100 UNITS/ML 10ML VIAL ONE (10:19)
--- NOTE | 2018-01-16 13:32 | PN ---
Progress Note (short form) - Note Progress Note: PULMONARY States breathing better today. Still some cough and wheezing. Vital Signs Period Temp Pulse Resp BP Sys/Domínguez Pulse Ox Last 24 Hr 97.8 F-99.4 F 58-92 16-20 104-129/60-74 93-96 Gen: tachypneic with speaking Heart: RRR Lung: scattered rhonchi, wheezes Abd: soft, nontender Ext: no edema CBC, BMP 01/16/18 06:15 01/16/18 06:15 Active Medications Acetaminophen (Tylenol -) 650 mg PO Q6H PRN PRN Reason: PAIN LEVEL 1-5 Albuterol Sulfate (Ventolin 0.083% Nebulizer Soln -) 1 amp NEB Q4H PRN PRN Reason: WHEEZING Last Admin: 01/14/18 21:52 Dose: 1 amp Albuterol/Ipratropium (Duoneb -) 1 amp NEB RQID [facility] Last Admin: 01/16/18 12:12 Dose: 1 amp Ascorbic Acid (Vitamin C -) 500 mg PO DAILY [facility] Last Admin: 01/16/18 10:05 Dose: 500 mg Budesonide/Formoterol Fumarate (Symbicort 160/4.5mcg -) 2 puff IH BID [facility] Last Admin: 01/16/18 10:03 Dose: 2 puff Escitalopram Oxalate (Lexapro -) 10 mg PO DAILY [facility] Last Admin: 01/16/18 10:04 Dose: 10 mg Furosemide (Lasix -) 20 mg PO DAILY [facility] Last Admin: 01/16/18 10:04 Dose: 20 mg Guaifenesin (Robitussin -) 10 ml PO Q4H PRN PRN Reason: COUGH Heparin Sodium (Porcine) (Heparin -) 5,000 unit SQ BID [facility] Last Admin: 01/16/18 10:06 Dose: 5,000 unit Insulin Aspart (Novolog Vial Sliding Scale -) 1 vial SQ ACHS [facility]; Protocol Last Admin: 01/16/18 10:40 Dose: Not Given Levothyroxine Sodium (Synthroid -) 50 mcg PO DAILY@0700 [facility] Last Admin: 01/16/18 06:06 Dose: 50 mcg Losartan Potassium (Cozaar -) 25 mg PO DAILY [facility] Last Admin: 01/16/18 10:04 Dose: 25 mg Methylprednisolone Sodium Succinate (Solu-Medrol -) 60 mg IVPB Q8H [facility] Last Admin: 01/16/18 06:01 Dose: 60 mg Montelukast Sodium (Singulair -) 10 mg PO HS [facility] Last Admin: 01/15/18 21:33 Dose: 10 mg Pantoprazole Sodium (Protonix -) 40 mg PO DAILY [facility] Last Admin: 01/16/18 10:04 Dose: 40 mg Potassium Chloride (K-Dur -) 20 meq PO DAILY [facility] Last Admin: 01/16/18 12:46 Dose: Not Given Roflumilast (Daliresp -) 500 mcg PO DAILY [facility] Last Admin: 01/16/18 10:03 Dose: 500 mcg Thiamine HCl (Vitamin B1 -) 100 mg PO DAILY [facility] Last Admin: 01/16/18 10:05 Dose: 100 mg A/P Acute on Chronic Hypoxic and Hypercapneic Respiratory Failure improving Acute COPD Exacerbation r/o Pneumonia LV Diastolic Dysfunction HTN Hypothyroidism - will decrease medrol to 40mg q8h - inhaled bronchodilators standing and PRN - BiPAP as needed - titrate O2 to keep Spo2 88-92% to avoid worsening V/Q mismatch - DVT/GI prophylaxis
[2018-01-16] MEDS: methylPREDNISolone NA SUCC 40 MG/1 ML VIAL IVPB SCH (17:02)
[2018-01-16] MEDS: MONTELUKAST NA 10 MG TABLET PO SCH (21:09)
[2018-01-17] MEDS: methylPREDNISolone NA SUCC 40 MG/1 ML VIAL IVPB SCH ×3 (01:40→17:09)
[2018-01-17] MEDS: INSULIN SLIDING SCALE (NOVOLOG) 1 VIAL SQ SCH ×4 (06:43→21:09)
[2018-01-17] MEDS: LEVOTHYROXINE NA 50 MCG TABLET (FP) PO SCH (06:43)
[2018-01-17 07:23] LABS: HEMATOCRIT 34.5 % (32.4-45.2); HEMOGLOBIN 11.3 GM/dL (10.7-15.3); LYMPH % 2.1 % (8-40); MCH 31.1 pg (25.7-33.7); MCHC 32.6 g/dl (32.0-36.0); MEAN CELL VOLUME 95.6 fl (80-96); MEAN PLT VOLUME 9.5 fl (7.5-11.1); MONO % 4.1 % (3.8-10.2); NEUT % 93.8 % (42.8-82.8); PLATELET COUNT 114 K/MM3 (134-434); RBC 3.62 M/mm3 (3.60-5.2); RDW 13.6 % (11.6-15.6); WHITE BLOOD COUNT 5.8 K/mm3 (4.0-10.0)
[2018-01-17] MEDS: ALBUTEROL SO4 2.5/IPRATROPIUM 0.5 INH SOL 3 ML VIAL.NEB. NEB SCH ×4 (08:00→20:54)
[2018-01-17 08:10] LABS: ALBUMIN 3.1 g/dl (3.4-5.0); ALK PHOS 47 U/L (45-117); ANION GAP 3 (8-16); BILIRUBIN,TOTAL 0.6 mg/dL (0.2-1.0); BLOOD UREA NITROGEN 26 mg/dL (7-18); CALCIUM 8.6 mg/dL (8.5-10.1); CHLORIDE 95 mmol/L (98-107); CO2 44 mmol/L (21-32); CREATININE 0.6 mg/dL (0.55-1.02); GLUCOSE,RANDOM 112 mg/dL (74-106); POTASSIUM 3.9 mmol/L (3.5-5.1); SGOT/AST 9 U/L (15-37); SGPT/ALT 18 U/L (12-78); SODIUM 142 mmol/L (136-145); TOT PROT 5.4 g/dl (6.4-8.2)
[2018-01-17 08:32] LABS: PLATELET ESTIMATE DECREASED
[2018-01-17] MEDS ORDERED: PT OWN MED DRAWER 7, Y5N ONE ×2 (09:37→20:59)
[2018-01-17] MEDS: POTASSIUM CHLORIDE TABS 20 MEQ TABLET.ER (FP) PO SCH (09:40)
[2018-01-17] MEDS: ROFLUMILAST 500 MCG TABLET PO SCH (09:40)
[2018-01-17] MEDS: ASCORBIC ACID 500 MG TABLET (FP) PO SCH (09:41)
[2018-01-17] MEDS: LOSARTAN POTASSIUM 25 MG TABLET PO SCH (09:41)
[2018-01-17] MEDS: FUROSEMIDE 20 MG TABLET (FP) PO SCH (09:41)
[2018-01-17] MEDS: PANTOPRAZOLE 40 MG TABLET (FP) PO SCH (09:41)
[2018-01-17] MEDS: THIAMINE HCL 100 MG TABLET (FP) PO SCH (09:42)
[2018-01-17] MEDS: ESCITALOPRAM OXALATE 10 MG TABLET (FP) PO SCH (09:42)
[2018-01-17] MEDS: HEPARIN NA (PORCINE) 5,000 UNITS/ML 1ML VIAL SQ SCH ×2 (09:42→21:08)
[2018-01-17] MEDS: BUDESONIDE/FORMETEROL FUMARATE 160/4.5 mcg INHALER IH SCH ×2 (09:42→21:09)
--- NOTE | 2018-01-17 11:03 | PN ---
Progress Note (short form) - Note Progress Note: PULMONARY Breathing continues to slowly improve. +cough and wheezing. Vital Signs Period Temp Pulse Resp BP Sys/Domínguez Pulse Ox Last 24 Hr 97.8 F-99.2 F 64-71 20-20 99-110/52-66 97 Gen: tachypneic with speaking Heart: RRR Lung: scattered rhonchi, wheezes Abd: soft, nontender Ext: no edema CBC, BMP 01/17/18 06:10 01/17/18 06:10 Active Medications Acetaminophen (Tylenol -) 650 mg PO Q6H PRN PRN Reason: PAIN LEVEL 1-5 Albuterol Sulfate (Ventolin 0.083% Nebulizer Soln -) 1 amp NEB Q4H PRN PRN Reason: WHEEZING Last Admin: 01/14/18 21:52 Dose: 1 amp Albuterol/Ipratropium (Duoneb -) 1 amp NEB RQID [facility] Last Admin: 01/17/18 08:00 Dose: 1 amp Ascorbic Acid (Vitamin C -) 500 mg PO DAILY [facility] Last Admin: 01/17/18 09:41 Dose: 500 mg Budesonide/Formoterol Fumarate (Symbicort 160/4.5mcg -) 2 puff IH BID [facility] Last Admin: 01/17/18 09:42 Dose: 2 puff Escitalopram Oxalate (Lexapro -) 10 mg PO DAILY [facility] Last Admin: 01/17/18 09:42 Dose: 10 mg Furosemide (Lasix -) 20 mg PO DAILY [facility] Last Admin: 01/17/18 09:41 Dose: 20 mg Guaifenesin (Robitussin -) 10 ml PO Q4H PRN PRN Reason: COUGH Heparin Sodium (Porcine) (Heparin -) 5,000 unit SQ BID [facility] Last Admin: 01/17/18 09:42 Dose: 5,000 unit Insulin Aspart (Novolog Vial Sliding Scale -) 1 vial SQ ACHS [facility]; Protocol Last Admin: 01/17/18 06:43 Dose: Not Given Levothyroxine Sodium (Synthroid -) 50 mcg PO DAILY@0700 [facility] Last Admin: 01/17/18 06:43 Dose: 50 mcg Losartan Potassium (Cozaar -) 25 mg PO DAILY [facility] Last Admin: 01/17/18 09:41 Dose: 25 mg Methylprednisolone Sodium Succinate (Solu-Medrol -) 40 mg IVPB Q8H-IV [facility] Last Admin: 01/17/18 09:43 Dose: 40 mg Montelukast Sodium (Singulair -) 10 mg PO HS [facility] Last Admin: 01/16/18 21:09 Dose: 10 mg Pantoprazole Sodium (Protonix -) 40 mg PO DAILY [facility] Last Admin: 01/17/18 09:41 Dose: 40 mg Potassium Chloride (K-Dur -) 20 meq PO DAILY [facility] Last Admin: 01/17/18 09:40 Dose: 20 meq Roflumilast (Daliresp -) 500 mcg PO DAILY [facility] Last Admin: 01/17/18 09:40 Dose: 500 mcg Thiamine HCl (Vitamin B1 -) 100 mg PO DAILY [facility] Last Admin: 01/17/18 09:42 Dose: 100 mg A/P Acute on Chronic Hypoxic and Hypercapneic Respiratory Failure improving Acute COPD Exacerbation r/o Pneumonia LV Diastolic Dysfunction HTN Hypothyroidism - continue medrol 40mg q8h - inhaled bronchodilators standing and PRN - BiPAP as needed - titrate O2 to keep Spo2 88-92% to avoid worsening V/Q mismatch - DVT/GI prophylaxis
--- NOTE | 2018-01-17 17:10 | PN ---
Progress Note, Physician Chief Complaint: feels a little better but still coughing and SOB; iv steroids per pulm - Current Medication List Current Medications: Active Medications Acetaminophen (Tylenol -) 650 mg PO Q6H PRN PRN Reason: PAIN LEVEL 1-5 Albuterol Sulfate (Ventolin 0.083% Nebulizer Soln -) 1 amp NEB Q4H PRN PRN Reason: WHEEZING Last Admin: 01/14/18 21:52 Dose: 1 amp Albuterol/Ipratropium (Duoneb -) 1 amp NEB RQID [facility] Last Admin: 01/17/18 13:00 Dose: 1 amp Ascorbic Acid (Vitamin C -) 500 mg PO DAILY [facility] Last Admin: 01/17/18 09:41 Dose: 500 mg Budesonide/Formoterol Fumarate (Symbicort 160/4.5mcg -) 2 puff IH BID [facility] Last Admin: 01/17/18 09:42 Dose: 2 puff Escitalopram Oxalate (Lexapro -) 10 mg PO DAILY [facility] Last Admin: 01/17/18 09:42 Dose: 10 mg Furosemide (Lasix -) 20 mg PO DAILY [facility] Last Admin: 01/17/18 09:41 Dose: 20 mg Guaifenesin (Robitussin -) 10 ml PO Q4H PRN PRN Reason: COUGH Heparin Sodium (Porcine) (Heparin -) 5,000 unit SQ BID [facility] Last Admin: 01/17/18 09:42 Dose: 5,000 unit Insulin Aspart (Novolog Vial Sliding Scale -) 1 vial SQ ACHS [facility]; Protocol Last Admin: 01/17/18 11:33 Dose: Not Given Levothyroxine Sodium (Synthroid -) 50 mcg PO DAILY@0700 [facility] Last Admin: 01/17/18 06:43 Dose: 50 mcg Losartan Potassium (Cozaar -) 25 mg PO DAILY [facility] Last Admin: 01/17/18 09:41 Dose: 25 mg Methylprednisolone Sodium Succinate (Solu-Medrol -) 40 mg IVPB Q8H-IV [facility] Last Admin: 01/17/18 09:43 Dose: 40 mg Montelukast Sodium (Singulair -) 10 mg PO HS [facility] Last Admin: 01/16/18 21:09 Dose: 10 mg Pantoprazole Sodium (Protonix -) 40 mg PO DAILY [facility] Last Admin: 07/22/18 09:41 Dose: 40 mg Potassium Chloride (K-Dur -) 20 meq PO DAILY [facility] Last Admin: 01/17/18 09:40 Dose: 20 meq Roflumilast (Daliresp -) 500 mcg PO DAILY [facility] Last Admin: 01/17/18 09:40 Dose: 500 mcg Thiamine HCl (Vitamin B1 -) 100 mg PO DAILY [facility] Last Admin: 01/17/18 09:42 Dose: 100 mg - Objective Vital Signs: Vital Signs Temperature 98.2 F 01/17/18 14:00 Pulse Rate 70 01/17/18 14:00 Respiratory Rate 20 01/17/18 14:00 Blood Pressure 122/68 01/17/18 14:00 O2 Sat by Pulse Oximetry (%) 94 L 01/17/18 08:00 Constitutional: Yes: No Distress, Calm Eyes: Yes: Conjunctiva Clear HENT: Yes: Atraumatic Neck: Yes: Supple Cardiovascular: Yes: Regular Rate and Rhythm Respiratory: Yes: Wheezes Gastrointestinal: Yes: Soft. No: Distention Genitourinary: No: CVA Tenderness - Left, CVA Tenderness - Right Musculoskeletal: No: Joint Stiffness, Joint Swelling Extremities: No: Cold, Cool Edema: No Integumentary: No: Rash, Venous Stasis Changes Neurological: Yes: WNL, Alert, Oriented ...Motor Strength: WNL Psychiatric: Yes: WNL, Alert, Oriented. No: Agitated, Suicidal Ideation Labs: CBC, BMP 01/17/18 06:10 01/17/18 06:10 INR, PTT INR 0.93 (0.82-1.09) 01/12/18 20:00 - ....Imaging Other: Report Reviewed Assessment/Plan Patient is a 57 year old female with a significant past medical history of COPD , HTN, CHF, hypothyroidism, chronic back pain, COPD O2 dep, with history of prior intubation, on home 4L continuously, admitted with acute COPD exac and acute respiratory failure, improved and stable IV solumedrol taper per pulm nebs bipap.. iv antibiotics f/u labs pulm f/u DVT pfx falls PFX check BGM while on steroids; gastric PFX prognosis guarded d/w pt and staff PT rehab for OOB DC planning per CM; pt wants to go home not to SNF rehab
[2018-01-17] MEDS: MONTELUKAST NA 10 MG TABLET PO SCH (21:08)
[2018-01-18] MEDS: methylPREDNISolone NA SUCC 40 MG/1 ML VIAL IVPB SCH ×3 (01:49→17:00)
[2018-01-18] MEDS: LEVOTHYROXINE NA 50 MCG TABLET (FP) PO SCH (06:54)
[2018-01-18] MEDS: INSULIN SLIDING SCALE (NOVOLOG) 1 VIAL SQ SCH ×2 (06:56→11:18)
[2018-01-18] MEDS: ALBUTEROL SO4 2.5/IPRATROPIUM 0.5 INH SOL 3 ML VIAL.NEB. NEB SCH ×4 (07:30→20:45)
[2018-01-18 07:58] LABS: HEMATOCRIT 34.9 % (32.4-45.2); HEMOGLOBIN 11.5 GM/dL (10.7-15.3); LYMPH % 2.3 % (8-40); MCH 31.3 pg (25.7-33.7); MCHC 32.9 g/dl (32.0-36.0); MEAN CELL VOLUME 95.2 fl (80-96); MEAN PLT VOLUME 9.6 fl (7.5-11.1); MONO % 5.7 % (3.8-10.2); PLATELET COUNT 110 K/MM3 (134-434); RBC 3.67 M/mm3 (3.60-5.2); RDW 13.5 % (11.6-15.6)
[2018-01-18 08:40] LABS: BLOOD UREA NITROGEN 24 mg/dL (7-18); CALCIUM 8.8 mg/dL (8.5-10.1); CHLORIDE 91 mmol/L (98-107); CREATININE 0.6 mg/dL (0.55-1.02); GLUCOSE,RANDOM 114 mg/dL (74-106); POTASSIUM 4.1 mmol/L (3.5-5.1); SODIUM 138 mmol/L (136-145)
[2018-01-18 08:55] LABS: ANION GAP -2 (8-16); CO2 49 mmol/L (21-32)
[2018-01-18] MEDS: ESCITALOPRAM OXALATE 10 MG TABLET (FP) PO SCH (10:12)
[2018-01-18] MEDS: POTASSIUM CHLORIDE TABS 20 MEQ TABLET.ER (FP) PO SCH (10:12)
[2018-01-18] MEDS: THIAMINE HCL 100 MG TABLET (FP) PO SCH (10:12)
[2018-01-18] MEDS: FUROSEMIDE 20 MG TABLET (FP) PO SCH (10:12)
[2018-01-18] MEDS: ASCORBIC ACID 500 MG TABLET (FP) PO SCH (10:12)
[2018-01-18] MEDS: HEPARIN NA (PORCINE) 5,000 UNITS/ML 1ML VIAL SQ SCH ×2 (10:12→22:43)
[2018-01-18] MEDS: LOSARTAN POTASSIUM 25 MG TABLET PO SCH (10:12)
[2018-01-18] MEDS: PANTOPRAZOLE 40 MG TABLET (FP) PO SCH (10:12)
[2018-01-18] MEDS: BUDESONIDE/FORMETEROL FUMARATE 160/4.5 mcg INHALER IH SCH ×2 (10:13→22:44)
[2018-01-18] MEDS: ROFLUMILAST 500 MCG TABLET PO SCH (10:14)
[2018-01-18 11:14] LABS: ACANTHOCYTES 0; ANISOCYTOSIS 0; HELMET CELLS 0; HOWELL-JOLLY BODIES 0; MACROCYTOSIS 0; OVALOCYTE 0; PLATELET ESTIMATE DECREASED; ROULEAU 0; SICKELED CELLS 0; TARGET CELLS 0; TEAR DROP CELLS 0; TOXIC GRANULATION 0
--- NOTE | 2018-01-18 13:10 | PN ---
Progress Note, Physician History of Present Illness: pulmonary alert,oob-chair,dyspnea improving - Current Medication List Current Medications: Active Medications Acetaminophen (Tylenol -) 650 mg PO Q6H PRN PRN Reason: PAIN LEVEL 1-5 Albuterol Sulfate (Ventolin 0.083% Nebulizer Soln -) 1 amp NEB Q4H PRN PRN Reason: WHEEZING Last Admin: 01/14/18 21:52 Dose: 1 amp Albuterol/Ipratropium (Duoneb -) 1 amp NEB RQID [facility] Last Admin: 01/18/18 11:10 Dose: 1 amp Ascorbic Acid (Vitamin C -) 500 mg PO DAILY [facility] Last Admin: 01/18/18 10:12 Dose: 500 mg Budesonide/Formoterol Fumarate (Symbicort 160/4.5mcg -) 2 puff IH BID [facility] Last Admin: 01/18/18 10:13 Dose: 2 puff Escitalopram Oxalate (Lexapro -) 10 mg PO DAILY [facility] Last Admin: 01/18/18 10:12 Dose: 10 mg Furosemide (Lasix -) 20 mg PO DAILY [facility] Last Admin: 01/18/18 10:12 Dose: 20 mg Guaifenesin (Robitussin -) 10 ml PO Q4H PRN PRN Reason: COUGH Heparin Sodium (Porcine) (Heparin -) 5,000 unit SQ BID [facility] Last Admin: 01/18/18 10:12 Dose: 5,000 unit Insulin Aspart (Novolog Vial Sliding Scale -) 1 vial SQ ACHS [facility]; Protocol Last Admin: 01/18/18 11:18 Dose: Not Given Levothyroxine Sodium (Synthroid -) 50 mcg PO DAILY@0700 [facility] Last Admin: 01/18/18 06:54 Dose: 50 mcg Losartan Potassium (Cozaar -) 25 mg PO DAILY [facility] Last Admin: 01/18/18 10:12 Dose: 25 mg Methylprednisolone Sodium Succinate (Solu-Medrol -) 40 mg IVPB Q8H-IV [facility] Last Admin: 01/18/18 10:11 Dose: 40 mg Montelukast Sodium (Singulair -) 10 mg PO HS [facility] Last Admin: 01/17/18 21:08 Dose: 10 mg Pantoprazole Sodium (Protonix -) 40 mg PO DAILY [facility] Last Admin: 01/18/18 10:12 Dose: 40 mg Potassium Chloride (K-Dur -) 20 meq PO DAILY [facility] Last Admin: 01/18/18 10:12 Dose: 20 meq Roflumilast (Daliresp -) 500 mcg PO DAILY [facility] Last Admin: 01/18/18 10:14 Dose: 500 mcg Thiamine HCl (Vitamin B1 -) 100 mg PO DAILY [facility] Last Admin: 01/18/18 10:12 Dose: 100 mg - Objective Vital Signs: Vital Signs Temperature 98.5 F 01/18/18 10:00 Pulse Rate 72 01/18/18 10:00 Respiratory Rate 20 01/18/18 10:00 Blood Pressure 111/60 01/18/18 10:00 O2 Sat by Pulse Oximetry (%) 94 L 01/18/18 10:00 Constitutional: Yes: Calm, Obese Eyes: Yes: WNL HENT: Yes: WNL Neck: Yes: WNL Cardiovascular: Yes: Regular Rate and Rhythm, S1, S2 Respiratory: Yes: Wheezes (scattered rhonchi) Gastrointestinal: Yes: Normal Bowel Sounds, Soft Extremities: Yes: WNL Edema: No Labs: CBC, BMP 01/18/18 07:28 01/18/18 07:28 INR, PTT INR 0.93 (0.82-1.09) 01/12/18 20:00 Problem List - Problems (1) COPD exacerbation Code(s): J44.1 - CHRONIC OBSTRUCTIVE PULMONARY DISEASE W (ACUTE) EXACERBATION (2) Acute diastolic (congestive) heart failure Code(s): I50.31 - ACUTE DIASTOLIC (CONGESTIVE) HEART FAILURE (3) Acute on chronic respiratory failure with hypoxia and hypercapnia Code(s): J96.21 - ACUTE AND CHRONIC RESPIRATORY FAILURE WITH HYPOXIA; J96.22 - ACUTE AND CHRONIC RESPIRATORY FAILURE WITH HYPERCAPNIA (4) Hypertension Code(s): I10 - ESSENTIAL (PRIMARY) HYPERTENSION (5) Hypothyroidism Code(s): E03.9 - HYPOTHYROIDISM, UNSPECIFIED Qualifiers: Hypothyroidism type: unspecified Qualified Code(s): E03.9 - Hypothyroidism , unspecified Assessment/Plan A/P Acute on Chronic Hypoxic and Hypercapneic Respiratory Failure improving Acute COPD Exacerbation improving r/o Pneumonia LV Diastolic Dysfunction HTN Hypothyroidism - medrol 40mg q8h - inhaled bronchodilators standing and PRN - BiPAP as needed - titrate O2 to keep Spo2 88-92% to avoid worsening V/Q mismatch - DVT/GI prophylaxis DR MEDEIROS
--- NOTE | 2018-01-18 16:06 | PN ---
Progress Note, Physician Chief Complaint: OOB to chair feels a .little better walked to the bathroom seen by pulm, pt and spoke with pulm and CM about home cpap machine and O2 and nebs - Current Medication List Current Medications: Active Medications Acetaminophen (Tylenol -) 650 mg PO Q6H PRN PRN Reason: PAIN LEVEL 1-5 Albuterol Sulfate (Ventolin 0.083% Nebulizer Soln -) 1 amp NEB Q4H PRN PRN Reason: WHEEZING Last Admin: 01/14/18 21:52 Dose: 1 amp Albuterol/Ipratropium (Duoneb -) 1 amp NEB RQID [facility] Last Admin: 01/18/18 15:52 Dose: 1 amp Ascorbic Acid (Vitamin C -) 500 mg PO DAILY [facility] Last Admin: 01/18/18 10:12 Dose: 500 mg Budesonide/Formoterol Fumarate (Symbicort 160/4.5mcg -) 2 puff IH BID [facility] Last Admin: 01/18/18 10:13 Dose: 2 puff Escitalopram Oxalate (Lexapro -) 10 mg PO DAILY [facility] Last Admin: 01/18/18 10:12 Dose: 10 mg Furosemide (Lasix -) 20 mg PO DAILY [facility] Last Admin: 01/18/18 10:12 Dose: 20 mg Guaifenesin (Robitussin -) 10 ml PO Q4H PRN PRN Reason: COUGH Heparin Sodium (Porcine) (Heparin -) 5,000 unit SQ BID [facility] Last Admin: 01/18/18 10:12 Dose: 5,000 unit Levothyroxine Sodium (Synthroid -) 50 mcg PO DAILY@0700 [facility] Last Admin: 01/18/18 06:54 Dose: 50 mcg Losartan Potassium (Cozaar -) 25 mg PO DAILY [facility] Last Admin: 01/18/18 10:12 Dose: 25 mg Methylprednisolone Sodium Succinate (Solu-Medrol -) 40 mg IVPB Q8H-IV [facility] Last Admin: 01/18/18 10:11 Dose: 40 mg Montelukast Sodium (Singulair -) 10 mg PO HS [facility] Last Admin: 01/17/18 21:08 Dose: 10 mg Pantoprazole Sodium (Protonix -) 40 mg PO DAILY [facility] Last Admin: 01/18/18 10:12 Dose: 40 mg Potassium Chloride (K-Dur -) 20 meq PO DAILY [facility] Last Admin: 01/18/18 10:12 Dose: 20 meq Roflumilast (Daliresp -) 500 mcg PO DAILY [facility] Last Admin: 01/18/18 10:14 Dose: 500 mcg Thiamine HCl (Vitamin B1 -) 100 mg PO DAILY [facility] Last Admin: 01/18/18 10:12 Dose: 100 mg - Objective Vital Signs: Vital Signs Temperature 98.4 F 01/18/18 14:00 Pulse Rate 78 01/18/18 14:00 Respiratory Rate 18 01/18/18 14:00 Blood Pressure 127/59 01/18/18 14:00 O2 Sat by Pulse Oximetry (%) 94 L 01/18/18 10:00 Constitutional: Yes: No Distress, Calm Eyes: Yes: Conjunctiva Clear HENT: Yes: Atraumatic Neck: Yes: Supple Cardiovascular: Yes: Regular Rate and Rhythm Respiratory: Yes: Wheezes Gastrointestinal: Yes: Soft. No: Distention Genitourinary: No: CVA Tenderness - Left, CVA Tenderness - Right Musculoskeletal: No: Joint Stiffness, Joint Swelling Extremities: No: Cold, Cool, Cyanosis Edema: No Integumentary: No: Rash, Venous Stasis Changes Neurological: Yes: WNL, Alert, Oriented ...Motor Strength: WNL Psychiatric: Yes: WNL, Alert, Oriented. No: Agitated, Suicidal Ideation Labs: CBC, BMP 01/18/18 07:28 01/18/18 07:28 INR, PTT INR 0.93 (0.82-1.09) 01/12/18 20:00 - ....Imaging Other: Report Reviewed Assessment/Plan Patient is a 57 year old female with a significant past medical history of COPD , HTN, CHF, hypothyroidism, chronic back pain, COPD O2 dep, with history of prior intubation, on home 4L continuously, admitted with acute COPD exac and acute respiratory failure, improved and stable IV solumedrol taper per pulm nebs bipap.. iv antibiotics f/u labs pulm f/u DVT pfx falls PFX check BGM while on steroids; gastric PFX prognosis guarded d/w pt and staff PT rehab for OOB DC planning per CM; pt wants to go home not to SNF rehab; will need home PT, VNS , cpap, O2, nebs d/w pt and staff
[2018-01-18] MEDS: MONTELUKAST NA 10 MG TABLET PO SCH (22:43)
[2018-01-19] MEDS: methylPREDNISolone NA SUCC 40 MG/1 ML VIAL IVPB SCH ×2 (01:52→10:12)
[2018-01-19 07:13] LABS: BASO % 0.1 % (0-2.0); HEMATOCRIT 34.5 % (32.4-45.2); HEMOGLOBIN 11.3 GM/dL (10.7-15.3); LYMPH % 2.2 % (8-40); MCH 30.9 pg (25.7-33.7); MCHC 32.8 g/dl (32.0-36.0); MEAN CELL VOLUME 94.2 fl (80-96); MONO % 5.6 % (3.8-10.2); NEUT % 92.1 % (42.8-82.8); PLATELET COUNT 114 K/MM3 (134-434); RBC 3.66 M/mm3 (3.60-5.2); RDW 13.3 % (11.6-15.6); WHITE BLOOD COUNT 5.2 K/mm3 (4.0-10.0)
[2018-01-19 07:35] LABS: ANION GAP 4 (8-16); BILIRUBIN,TOTAL 0.7 mg/dL (0.2-1.0); BLOOD UREA NITROGEN 23 mg/dL (7-18); CALCIUM 8.6 mg/dL (8.5-10.1); CHLORIDE 93 mmol/L (98-107); CO2 42 mmol/L (21-32); CREATININE 0.5 mg/dL (0.55-1.02); GLUCOSE,RANDOM 121 mg/dL (74-106); POTASSIUM 4.1 mmol/L (3.5-5.1); SGOT/AST 8 U/L (15-37); SGPT/ALT 19 U/L (12-78); SODIUM 139 mmol/L (136-145); TOT PROT 5.2 g/dl (6.4-8.2)
[2018-01-19 07:36] LABS: ALK PHOS 43 U/L (45-117)
[2018-01-19] MEDS: LEVOTHYROXINE NA 50 MCG TABLET (FP) PO SCH (07:41)
[2018-01-19] MEDS: ALBUTEROL SO4 2.5/IPRATROPIUM 0.5 INH SOL 3 ML VIAL.NEB. NEB SCH ×3 (08:00→20:16)
[2018-01-19 08:54] LABS: PLATELET ESTIMATE DECREASED
[2018-01-19] MEDS: HEPARIN NA (PORCINE) 5,000 UNITS/ML 1ML VIAL SQ SCH (10:12)
[2018-01-19] MEDS: ESCITALOPRAM OXALATE 10 MG TABLET (FP) PO SCH (10:13)
[2018-01-19] MEDS: PANTOPRAZOLE 40 MG TABLET (FP) PO SCH (10:13)
[2018-01-19] MEDS: FUROSEMIDE 20 MG TABLET (FP) PO SCH (10:13)
[2018-01-19] MEDS: ROFLUMILAST 500 MCG TABLET PO SCH (10:13)
[2018-01-19] MEDS: LOSARTAN POTASSIUM 25 MG TABLET PO SCH (10:13)
[2018-01-19] MEDS: BUDESONIDE/FORMETEROL FUMARATE 160/4.5 mcg INHALER IH SCH ×2 (10:13→21:27)
[2018-01-19] MEDS: THIAMINE HCL 100 MG TABLET (FP) PO SCH (10:13)
[2018-01-19] MEDS: ASCORBIC ACID 500 MG TABLET (FP) PO SCH (10:13)
[2018-01-19] MEDS: POTASSIUM CHLORIDE TABS 20 MEQ TABLET.ER (FP) PO SCH (10:13)
--- NOTE | 2018-01-19 10:51 | PN ---
Progress Note, Physician Chief Complaint: better - will product picker pt and take her home tomorrow taper steroids per pulm DC instructions and f/u d/w pt and pt's PCP dr Navarro; pulm, cardiology f/u borderline low Platelets possibly sec to sq heparin (stopped, pt ambulating); d/w pt and PCP check CBC outpt in 1-2 weeks if PLT still low pt to see fabiola marin for further w/u and management - Current Medication List Current Medications: Active Medications Acetaminophen (Tylenol -) 650 mg PO Q6H PRN PRN Reason: PAIN LEVEL 1-5 Albuterol Sulfate (Ventolin 0.083% Nebulizer Soln -) 1 amp NEB Q4H PRN PRN Reason: WHEEZING Last Admin: 01/14/18 21:52 Dose: 1 amp Albuterol/Ipratropium (Duoneb -) 1 amp NEB RQID [facility] Last Admin: 01/18/18 20:45 Dose: 1 amp Ascorbic Acid (Vitamin C -) 500 mg PO DAILY [facility] Last Admin: 01/19/18 10:13 Dose: 500 mg Budesonide/Formoterol Fumarate (Symbicort 160/4.5mcg -) 2 puff IH BID [facility] Last Admin: 01/19/18 10:13 Dose: 2 puff Escitalopram Oxalate (Lexapro -) 10 mg PO DAILY [facility] Last Admin: 01/19/18 10:13 Dose: 10 mg Furosemide (Lasix -) 20 mg PO DAILY [facility] Last Admin: 01/19/18 10:13 Dose: 20 mg Guaifenesin (Robitussin -) 10 ml PO Q4H PRN PRN Reason: COUGH Levothyroxine Sodium (Synthroid -) 50 mcg PO DAILY@0700 [facility] Last Admin: 01/19/18 07:41 Dose: 50 mcg Losartan Potassium (Cozaar -) 25 mg PO DAILY [facility] Last Admin: 01/19/18 10:13 Dose: 25 mg Methylprednisolone Sodium Succinate (Solu-Medrol -) 40 mg IVPB Q8H-IV [facility] Last Admin: 01/19/18 10:12 Dose: 40 mg Montelukast Sodium (Singulair -) 10 mg PO HS [facility] Last Admin: 01/18/18 22:43 Dose: 10 mg Pantoprazole Sodium (Protonix -) 40 mg PO DAILY [facility] Last Admin: 01/19/18 10:13 Dose: 40 mg Potassium Chloride (K-Dur -) 20 meq PO DAILY [facility] Last Admin: 01/19/18 10:13 Dose: 20 meq Roflumilast (Daliresp -) 500 mcg PO DAILY [facility] Last Admin: 01/19/18 10:13 Dose: 500 mcg Thiamine HCl (Vitamin B1 -) 100 mg PO DAILY [facility] Last Admin: 01/19/18 10:13 Dose: 100 mg - Objective Vital Signs: Vital Signs Temperature 98.6 F 01/19/18 09:44 Pulse Rate 85 01/19/18 09:44 Respiratory Rate 20 01/19/18 09:44 Blood Pressure 117/71 01/19/18 09:44 O2 Sat by Pulse Oximetry (%) 94 L 01/19/18 09:00 Constitutional: Yes: No Distress, Calm Eyes: Yes: Conjunctiva Clear HENT: Yes: Atraumatic Neck: Yes: Supple Cardiovascular: Yes: Regular Rate and Rhythm Respiratory: Yes: Wheezes Gastrointestinal: Yes: Soft. No: Distention Genitourinary: No: CVA Tenderness - Left, CVA Tenderness - Right Musculoskeletal: No: Joint Stiffness, Joint Swelling Extremities: No: Cold, Cool, Cyanosis Edema: No Integumentary: No: Rash, Venous Stasis Changes Neurological: Yes: WNL, Alert, Oriented ...Motor Strength: WNL Psychiatric: Yes: WNL, Alert, Oriented. No: Agitated, Suicidal Ideation Labs: CBC, BMP 01/19/18 06:30 01/19/18 06:30 INR, PTT INR 0.93 (0.82-1.09) 01/12/18 20:00 - ....Imaging Other: Report Reviewed Assessment/Plan Patient is a 57 year old female with a significant past medical history of COPD , HTN, CHF, hypothyroidism, chronic back pain, COPD O2 dep, with history of prior intubation, on home 4L continuously, admitted with acute COPD exac and acute respiratory failure, improved and stable steroids taper per pulm nebs bipap.. f/u labs pulm f/u DVT pfx falls PFX check BGM while on steroids; gastric PFX prognosis guarded d/w pt and staff see above also PT rehab for OOB DC planning ; will need home PT, VNS, cpap, O2, nebs d/w pt and staff
--- NOTE | 2018-01-19 12:15 | PN ---
Progress Note, Physician History of Present Illness: pulmonary alert,no distress,oob-chair - Current Medication List Current Medications: Active Medications Acetaminophen (Tylenol -) 650 mg PO Q6H PRN PRN Reason: PAIN LEVEL 1-5 Albuterol Sulfate (Ventolin 0.083% Nebulizer Soln -) 1 amp NEB Q4H PRN PRN Reason: WHEEZING Last Admin: 01/14/18 21:52 Dose: 1 amp Albuterol/Ipratropium (Duoneb -) 1 amp NEB RQID [facility] Last Admin: 01/18/18 20:45 Dose: 1 amp Ascorbic Acid (Vitamin C -) 500 mg PO DAILY [facility] Last Admin: 01/19/18 10:13 Dose: 500 mg Budesonide/Formoterol Fumarate (Symbicort 160/4.5mcg -) 2 puff IH BID [facility] Last Admin: 01/19/18 10:13 Dose: 2 puff Escitalopram Oxalate (Lexapro -) 10 mg PO DAILY [facility] Last Admin: 01/19/18 10:13 Dose: 10 mg Furosemide (Lasix -) 20 mg PO DAILY [facility] Last Admin: 01/19/18 10:13 Dose: 20 mg Guaifenesin (Robitussin -) 10 ml PO Q4H PRN PRN Reason: COUGH Levothyroxine Sodium (Synthroid -) 50 mcg PO DAILY@0700 [facility] Last Admin: 01/19/18 07:41 Dose: 50 mcg Losartan Potassium (Cozaar -) 25 mg PO DAILY [facility] Last Admin: 01/19/18 10:13 Dose: 25 mg Methylprednisolone Sodium Succinate (Solu-Medrol -) 40 mg IVPB Q8H-IV [facility] Last Admin: 01/19/18 10:12 Dose: 40 mg Montelukast Sodium (Singulair -) 10 mg PO HS [facility] Last Admin: 01/18/18 22:43 Dose: 10 mg Pantoprazole Sodium (Protonix -) 40 mg PO DAILY [facility] Last Admin: 01/19/18 10:13 Dose: 40 mg Potassium Chloride (K-Dur -) 20 meq PO DAILY [facility] Last Admin: 01/19/18 10:13 Dose: 20 meq Roflumilast (Daliresp -) 500 mcg PO DAILY [facility] Last Admin: 01/19/18 10:13 Dose: 500 mcg Thiamine HCl (Vitamin B1 -) 100 mg PO DAILY [facility] Last Admin: 01/19/18 10:13 Dose: 100 mg - Objective Vital Signs: Vital Signs Temperature 98.6 F 01/19/18 09:44 Pulse Rate 85 01/19/18 09:44 Respiratory Rate 20 01/19/18 09:44 Blood Pressure 117/71 01/19/18 09:44 O2 Sat by Pulse Oximetry (%) 94 L 01/19/18 09:00 Constitutional: Yes: Well Nourished, Calm Eyes: Yes: WNL HENT: Yes: WNL Neck: Yes: WNL Cardiovascular: Yes: Regular Rate and Rhythm, S1, S2 Respiratory: Yes: Diminished Gastrointestinal: Yes: Normal Bowel Sounds, Soft Extremities: Yes: WNL Edema: No Labs: CBC, BMP 01/19/18 06:30 01/19/18 06:30 INR, PTT INR 0.93 (0.82-1.09) 01/12/18 20:00 Problem List - Problems (1) COPD exacerbation Code(s): J44.1 - CHRONIC OBSTRUCTIVE PULMONARY DISEASE W (ACUTE) EXACERBATION (2) Acute diastolic (congestive) heart failure Code(s): I50.31 - ACUTE DIASTOLIC (CONGESTIVE) HEART FAILURE (3) Acute on chronic respiratory failure with hypoxia and hypercapnia Code(s): J96.21 - ACUTE AND CHRONIC RESPIRATORY FAILURE WITH HYPOXIA; J96.22 - ACUTE AND CHRONIC RESPIRATORY FAILURE WITH HYPERCAPNIA (4) Hypertension Code(s): I10 - ESSENTIAL (PRIMARY) HYPERTENSION (5) Hypothyroidism Code(s): E03.9 - HYPOTHYROIDISM, UNSPECIFIED Qualifiers: Hypothyroidism type: unspecified Qualified Code(s): E03.9 - Hypothyroidism , unspecified Assessment/Plan A/P Acute on Chronic Hypoxic and Hypercapneic Respiratory Failure improving Acute COPD Exacerbation improving r/o Pneumonia LV Diastolic Dysfunction HTN Hypothyroidism - medrol 40mg q12 - inhaled bronchodilators standing and PRN - BiPAP as needed - titrate O2 to keep Spo2 88-92% to avoid worsening V/Q mismatch - DVT/GI prophylaxis DR MEDEIROS
[2018-01-19] MEDS ORDERED: PT OWN MED DRAWER 7, Y5N ONE (21:13)
[2018-01-19 21:17] VITALS: BMI 32.7
[2018-01-19] MEDS: MONTELUKAST NA 10 MG TABLET PO SCH (21:27)
[2018-01-19] MEDS ORDERED: methylPREDNISolone NA SUCC 40 MG/1 ML VIAL IVPUSH SCH (22:00)
[2018-01-20] MEDS: LEVOTHYROXINE NA 50 MCG TABLET (FP) PO SCH (06:26)
--- NOTE | 2018-01-20 07:05 | DS ---
Physical Examination Vital Signs: Vital Signs Temperature 97.8 F 01/20/18 05:55 Pulse Rate 71 01/20/18 05:55 Respiratory Rate 20 01/20/18 05:55 Blood Pressure 115/90 01/20/18 05:55 O2 Sat by Pulse Oximetry (%) 97 01/20/18 01:43 Findings/Remarks: feels better wants to o home will pick her up scripts done f/u tests and consults as advised Constitutional: Yes: No Distress, Calm Eyes: Yes: Conjunctiva Clear HENT: Yes: Atraumatic Neck: Yes: Supple Cardiovascular: Yes: Regular Rate and Rhythm Respiratory: Yes: CTA Bilaterally Gastrointestinal: Yes: Soft. No: Distention Renal/: No: CVA Tenderness - Left, CVA Tenderness - Right Musculoskeletal: No: Joint Stiffness, Joint Swelling Extremities: No: Cold, Cool, Cyanosis Edema: No Integumentary: No: Rash, Venous Stasis Changes Neurological: Yes: WNL, Alert, Oriented ...Motor Strength: WNL Psychiatric: Yes: WNL, Alert, Oriented. No: Agitated, Suicidal Ideation Labs: CBC, BMP 01/19/18 06:30 01/19/18 06:30 Discharge Summary Reason For Visit: OBSTRUCTIVE CHRONIC BRONCHITIS WITH EXACERBATION Current Active Problems COPD exacerbation (Acute) Procedures: Principal: admitted to ICU with acute COPD exac and respiratory failure Other Procedures: seen by pulmonary ICU; nebs, IV steroids;. O2 Nc/ Bipap per pulm. antibiotics per pulm Hospital Course: improved with above; f/u as advised Condition: Stable - Instructions Diet, Activity, Other Instructions: f/u PCP and pulmonary in 1-2 weeks f/u CBC CMP in 1 week, borderline low PLT possible b/o sq heparin; if still lower than normal to see heme dr Shaw; BGM QAM while on steroids; gastric protection with PPI while on sterodis; cardiology f/u in 1-2 months use O2 and Bipap at home as advised falls PFX RTER if CP/SOB/ confusion/fever. Referrals: Max Parrish MD [Staff Physician] - Alberto Perales MD [Non Staff, Medical] - Laura Navarro MD [Primary Care Provider] - Disposition: VNS/HOME HEALTH CARE - Home Medications Comprehensive Discharge Medication List: Ambulatory Orders Fenofibrate [Lofibra] 160 mg PO DAILY 10/13/15 Albuterol 0.083% Nebulizer Colette [Ventolin 0.083% Nebulizer Soln -] 1 neb NEB Q4H #0 tab 06/24/17 Levothyroxine [Synthroid -] 100 mcg PO DAILY@0700 tablet 06/24/17 Losartan Potassium [Cozaar -] 25 mg PO DAILY #30 tablet 06/24/17 Montelukast Na [Singulair -] 10 mg PO HS #0 tab 06/24/17 Roflumilast [Daliresp] 500 mcg PO DAILY #30 tablet 06/24/17 Escitalopram Oxalate [Lexapro -] 10 mg PO DAILY 08/31/17 Potassium Chloride [K-Dur -] 10 meq PO DAILY 08/31/17 Acetaminophen [Tylenol .Regular Strength -] 650 mg PO Q6H PRN tablet 09/03/17 Albuterol 2.5/Ipratropium 0.5 [Duoneb -] 1 amp NEB RQID amp 09/03/17 Furosemide [Lasix -] 20 mg PO DAILY 11/25/17 Guaifenesin [Robitussin -] 10 ml PO Q4H PRN cup 12/02/17 Levofloxacin [Levaquin] 500 mg PO DAILY #3 tab 12/02/17 predniSONE [Deltasone -] 5 mg PO DAILY #90 tablet 12/02/17
[2018-01-20] MEDS: ALBUTEROL SO4 2.5/IPRATROPIUM 0.5 INH SOL 3 ML VIAL.NEB. NEB SCH ×2 (08:52→11:31)
[2018-01-20] MEDS: LOSARTAN POTASSIUM 25 MG TABLET PO SCH (09:38)
[2018-01-20] MEDS: THIAMINE HCL 100 MG TABLET (FP) PO SCH (09:38)
[2018-01-20] MEDS: POTASSIUM CHLORIDE TABS 20 MEQ TABLET.ER (FP) PO SCH (09:38)
[2018-01-20] MEDS: ROFLUMILAST 500 MCG TABLET PO SCH (09:38)
[2018-01-20] MEDS: FUROSEMIDE 20 MG TABLET (FP) PO SCH (09:38)
[2018-01-20] MEDS: ASCORBIC ACID 500 MG TABLET (FP) PO SCH (09:38)
[2018-01-20] MEDS: ESCITALOPRAM OXALATE 10 MG TABLET (FP) PO SCH (09:38)
[2018-01-20] MEDS: BUDESONIDE/FORMETEROL FUMARATE 160/4.5 mcg INHALER IH SCH (09:41)
[2018-01-20] MEDS: PANTOPRAZOLE 40 MG TABLET (FP) PO SCH (09:42)
[2018-01-20] MEDS ORDERED: predniSONE 20 MG TABLET (UD) PO SCH (10:00)
[2018-01-20 11:08] VITALS: BP 124/72; PULSE 88; TEMP 98.2
--- NOTE | 2018-01-20 12:49 | PN ---
Progress Note, Physician History of Present Illness: pulmonary alert,feeling better,-resp distress - Current Medication List Current Medications: Active Medications Acetaminophen (Tylenol -) 650 mg PO Q6H PRN PRN Reason: PAIN LEVEL 1-5 Albuterol Sulfate (Ventolin 0.083% Nebulizer Soln -) 1 amp NEB Q4H PRN PRN Reason: WHEEZING Last Admin: 01/14/18 21:52 Dose: 1 amp Albuterol/Ipratropium (Duoneb -) 1 amp NEB RQID [facility] Last Admin: 01/20/18 11:31 Dose: 1 amp Ascorbic Acid (Vitamin C -) 500 mg PO DAILY [facility] Last Admin: 01/20/18 09:38 Dose: 500 mg Budesonide/Formoterol Fumarate (Symbicort 160/4.5mcg -) 2 puff IH BID [facility] Last Admin: 01/20/18 09:41 Dose: 2 puff Escitalopram Oxalate (Lexapro -) 10 mg PO DAILY [facility] Last Admin: 01/20/18 09:38 Dose: 10 mg Furosemide (Lasix -) 20 mg PO DAILY [facility] Last Admin: 01/20/18 09:38 Dose: 20 mg Guaifenesin (Robitussin -) 10 ml PO Q4H PRN PRN Reason: COUGH Levothyroxine Sodium (Synthroid -) 50 mcg PO DAILY@0700 [facility] Last Admin: 01/20/18 06:26 Dose: 50 mcg Losartan Potassium (Cozaar -) 25 mg PO DAILY [facility] Last Admin: 01/20/18 09:38 Dose: 25 mg Montelukast Sodium (Singulair -) 10 mg PO HS [facility] Last Admin: 01/19/18 21:27 Dose: 10 mg Pantoprazole Sodium (Protonix -) 40 mg PO DAILY [facility] Last Admin: 01/20/18 09:42 Dose: 40 mg Potassium Chloride (K-Dur -) 20 meq PO DAILY [facility] Last Admin: 01/20/18 09:38 Dose: 20 meq Prednisone (Deltasone -) 60 mg PO DAILY [facility] Last Admin: 01/20/18 09:38 Dose: 60 mg Roflumilast (Daliresp -) 500 mcg PO DAILY [facility] Last Admin: 01/20/18 09:38 Dose: 500 mcg Thiamine HCl (Vitamin B1 -) 100 mg PO DAILY [facility] Last Admin: 01/20/18 09:38 Dose: 100 mg - Objective Vital Signs: Vital Signs Temperature 98.2 F 01/20/18 10:00 Pulse Rate 88 01/20/18 10:00 Respiratory Rate 18 01/20/18 10:00 Blood Pressure 124/72 01/20/18 10:00 O2 Sat by Pulse Oximetry (%) 95 01/20/18 11:08 Constitutional: Yes: Well Nourished, Calm Eyes: Yes: WNL HENT: Yes: WNL Neck: Yes: WNL Cardiovascular: Yes: Regular Rate and Rhythm, S1, S2 Respiratory: Yes: Diminished Gastrointestinal: Yes: Normal Bowel Sounds, Soft Extremities: Yes: WNL Edema: No Labs: CBC, BMP Problem List - Problems (1) COPD exacerbation Code(s): J44.1 - CHRONIC OBSTRUCTIVE PULMONARY DISEASE W (ACUTE) EXACERBATION (2) Acute diastolic (congestive) heart failure Code(s): I50.31 - ACUTE DIASTOLIC (CONGESTIVE) HEART FAILURE (3) Acute on chronic respiratory failure with hypoxia and hypercapnia Code(s): J96.21 - ACUTE AND CHRONIC RESPIRATORY FAILURE WITH HYPOXIA; J96.22 - ACUTE AND CHRONIC RESPIRATORY FAILURE WITH HYPERCAPNIA (4) Hypertension Code(s): I10 - ESSENTIAL (PRIMARY) HYPERTENSION (5) Hypothyroidism Code(s): E03.9 - HYPOTHYROIDISM, UNSPECIFIED Qualifiers: Hypothyroidism type: unspecified Qualified Code(s): E03.9 - Hypothyroidism , unspecified Assessment/Plan A/P Acute on Chronic Hypoxic and Hypercapneic Respiratory Failure improving Acute COPD Exacerbation improving r/o Pneumonia LV Diastolic Dysfunction HTN Hypothyroidism - prednisone taper - inhaled bronchodilators standing and PRN - Trilogy device at home - titrate O2 to keep Spo2 88-92% to avoid worsening V/Q mismatch - DVT/GI prophylaxis DR MEDEIROS
== END 2018-01-20 13:18 | disposition home health service (06) | DRG 189 ==
LOC: JER 17:53 → OBSVTOIN 21:21 → JERBED 21:21 → JICU 22:39 → JER 22:39 → JERBED 22:52 → UNDOADMOB 22:52 → JICU 23:28 → J6S 01-14 20:34
PROVIDERS: ADMIT Internal Medicine; ATTEND Internal Medicine
PROC: 5A09557 Assistance with Respiratory Ventilation, Greater than 96 Consecutive Hours, Continuous Positive Airway Pressure (ICD-10-PCS; principal; 2018-01-12)
DX: J96.22 Acute and chronic respiratory failure with hypercapnia (principal); J44.1 Chronic obstructive pulmonary disease with (acute) exacerbation; J98.11 Atelectasis; I50.30 Unspecified diastolic (congestive) heart failure; J96.21 Acute and chronic respiratory failure with hypoxia; I11.0 Hypertensive heart disease with heart failure; E03.9 Hypothyroidism, unspecified; E66.9 Obesity, unspecified; Z68.33 Body mass index [BMI] 33.0-33.9, adult
CPT/HCPCS: 36415; 36600; 71045-TC-FY; 80048; 80053; 81003; 82375; 82550; 82803; 82962; 83050; 83735; 83880; 84100; 84443; 84484; 85025; 85610; 87899; 93005; 93010; 94640; 94660; 97116-GP; 97162-GP; 99285-25; J1644; J7620

== ENCOUNTER 2018-04-05 20:45 | Inpatient (IN) | payer OTHER ==
[2018-04-05 21:06] VITALS: BMI 32.3
[2018-04-05] MEDS ORDERED: DEXAMETHASONE SOD PHOSPHATE 10 MG/1 ML VIAL ONE (21:08)
[2018-04-05] MEDS ORDERED: ALBUTEROL SO4 2.5/IPRATROPIUM 0.5 INH SOL 3 ML VIAL.NEB. NEB ONE (21:08)
--- NOTE | 2018-04-05 21:54 | PDOC ---
History of Present Illness - General Chief Complaint: Shortness of Breath Stated Complaint: SOB Time Seen by Provider: 04/05/18 21:04 History Source: Patient Exam Limitations: No Limitations - History of Present Illness Initial Comments: 57 y/o F w/PMH of COPD (requiring multiple hospitalizations and prior intubations; O2 dependant - 2L at rest, 4L while ambulating), HTN, CHF, hypothyroidism, NAVDEEP presents to the ER after a short course of confusion approximately 1 hour prior to coming to the ER. She does not remember the events but according to the daugther (spoke on the phone) she was confused/ unresponsive for approximately 1 min, urinated on herself, and she was back to herself. According to the daughter she was in the patient's face trying to wake her up but did not wake up for approximately 1 min. She has had confusion everytime she has had a COPD exacerbation and been brought to the hospital. Pt was in her usual state of health up until the confusion. She is back to herself at this time. Her CPAP hasn't been working for the last 3-4 weeks. She has had a cough with clear sputum production and increased LE edema. She denies CP, SOB worse than her baseline, sick contacts, fevers, chills, nausea, vomiting, diarrhea, blood in stool, dysuria, blood in urine, abd pain. Of note, pt uses prednisone 5mg daily. Was given 2 nebs enroute to hospital. PCP: Dr. Laura Navarro PMH: COPD (requiring multiple hospitalizations and prior intubations; O2 dependant - 2L at rest, 4L while ambulating), HTN, CHF, hypothyroidism, NAVDEEP SH: Quit smoking 8 years ago. Social Alcohol use. Denies drug use. Allergies: Penicillins Past History - Travel Traveled outside of the country in the last 30 days: No Close contact w/someone who was outside of country & ill: No - Past Medical History Allergies/Adverse Reactions: Allergies Allergy/AdvReac Type Severity Reaction Status Date / Time Penicillins Allergy Severe Difficulty Verified 04/05/18 21:06 Breathing Home Medications: Ambulatory Orders Levothyroxine [Synthroid -] 100 mcg PO DAILY@0700 tablet 06/24/17 Losartan Potassium [Cozaar -] 25 mg PO DAILY #30 tablet 06/24/17 Roflumilast [Daliresp] 500 mcg PO DAILY #30 tablet 06/24/17 Escitalopram Oxalate [Lexapro -] 10 mg PO DAILY 08/31/17 Potassium Chloride [K-Dur -] 10 meq PO DAILY 08/31/17 Furosemide [Lasix -] 20 mg PO DAILY 11/25/17 Albuterol 2.5/Ipratropium 0.5 [Duoneb -] 1 amp NEB RQID amp 01/20/18 Aspirin [ASA -] 81 mg PO DAILY 02/01/18 Albuterol 0.083% Nebulizer Colette [Ventolin 0.083% Nebulizer Soln -] 1 amp NEB Q4H PRN #90 amp 02/05/18 Prednisone 5 mg PO DAILY #20 tablet 02/05/18 Albuterol Sulfate Inhaler - [Ventolin Hfa Inhaler -] 1 - 2 inh PO Q4H PRN Montelukast Sodium [Singulair] 5 mg PO DAILY 04/05/18 Rosuvastatin [Crestor -] 5 mg PO HS 04/05/18 COPD: Yes (o2 4liters at home) CHF: Yes DVT: No HTN: Yes Thyroid Disease: Yes (hypo) - Immunization History Immunization Up to Date: Yes - Suicide/Smoking/Psychosocial Hx Smoking History: Never smoked Have you smoked in the past 12 months: No If you are a former smoker, when did you quit?: 8 years ago Information on smoking cessation initiated: No Hx Alcohol Use: No Drug/Substance Use Hx: No Substance Use Type: None Review of Systems - Review of Systems Able to Perform ROS?: Yes Constitutional: No: Chills, Fever Respiratory: Yes: Cough (with clear sputum production) Cardiac (ROS): No: Chest Pain ABD/GI: No: Blood Streaked Bowels, Diarrhea, Nausea, Vomiting : No: Burning, Dysuria Neurological: Yes: Other (AMS) *Physical Exam - Vital Signs Last Vital Signs Temp Pulse Resp BP Pulse Ox 96.5 F L 104 H 19 105/68 90 L 04/05/18 20:45 04/05/18 20:45 04/05/18 20:45 04/05/18 20:45 04/05/18 20:45 - Physical Exam General Appearance: Yes: Appropriately Dressed, Other (Speaking in full sentences without issue.). No: Apparent Distress HEENT: positive: EOMI, Normal Voice Neck: positive: Supple Respiratory/Chest: positive: Other (Decreased breath sounds.). negative: Wheezing Cardiovascular: positive: Regular Rhythm, Regular Rate, S1, S2 Gastrointestinal/Abdominal: positive: Normal Bowel Sounds, Soft. negative: Tender Extremity: positive: Other (2+ LE pitting edema) Neurologic: positive: program manager environmental planning II-XII NML intact, Fully Oriented, Alert ED Treatment Course - LABORATORY CBC & Chemistry Diagram: 04/05/18 22:20 04/05/18 22:20 Medical Decision Making - Medical Decision Making 04/05/18 21:55 Pt with confusion and vitals signs showing temp of 96.5 and 104 bpm. Will work up for sepsis at this time. Will also w/u for syncope vs seizure. CBC, CMP, BNP, LA, EKG, UA, UCx, BCx, CXR, VBG ordered Head CT ordered. Pt received 2 duonebs and 10 mg IV decadron. 04/05/18 23:02 VBG: pH 7.39, PCO2 101, PO2 53.1, HCO3 59 WBC 8.9 with 96.6% neutrophils UA negative 04/05/18 23:57 EKG: NSR @ 81 bpm. QTc 422 ms. TWI in V2 not seen on EKG in 12/2017. Trop negative. BNP 110. 04/06/18 00:[address] prelim read- Impression: Normal exam. 04/06/18 00:33 Pt to be admitted for COPD exacerbation. Page sent out to Dr. Agustina Taylor who is covering physician for Dr. Larua Navarro. *DC/Admit/Observation/Transfer Diagnosis at time of Disposition: COPD exacerbation - Discharge Dispostion Condition at time of disposition: Guarded Decision to Admit order: Yes - Referrals Referrals: Laura Navarro MD [Primary Care Provider] - - Patient Instructions - Post Discharge Activity
[2018-04-05 22:57] LABS: BASO % 0.4 % (0-2.0); HEMATOCRIT 36.4 % (32.4-45.2); HEMOGLOBIN 11.6 GM/dL (10.7-15.3); LYMPH % 1.3 % (8-40); MCHC 31.8 g/dl (32.0-36.0); MEAN CELL VOLUME 97.3 fl (80-96); MEAN PLT VOLUME 8.5 fl (7.5-11.1); MONO % 1.7 % (3.8-10.2); NEUT % 96.6 % (42.8-82.8); PLATELET COUNT 178 K/MM3 (134-434); RBC 3.74 M/mm3 (3.60-5.2); RDW 14.1 % (11.6-15.6); VENOUS PH 7.39 (7.32-7.42); VENOUS PO2 53.1 mmHg (28-48); WHITE BLOOD COUNT 8.9 K/mm3 (4.0-10.0)
[2018-04-05 22:59] LABS: URINE APPEARANCE TURBID; URINE BILIRUBIN NEGATIVE (<2.0 mg/dL); URINE COLOR YELLOW; URINE GLUCOSE (UA) NEGATIVE (NEGATIVE); URINE KETONE NEGATIVE (NEGATIVE); URINE LEUK ESTERASE NEGATIVE (NEGATIVE); URINE NITRITE NEGATIVE (NEGATIVE); URINE PROTEIN NEGATIVE (NEGATIVE); URINE UROBILINOGEN NEGATIVE mg/dL (0.2-1.0)
[2018-04-05 23:10] LABS: INR 0.93 (0.83-1.09)
[2018-04-05 23:12] LABS: ACTIVATED PTT 28.6 SECONDS (25.2-36.5)
[2018-04-05 23:27] LABS: PLATELET ESTIMATE ADEQUATE
[2018-04-05 23:41] LABS: ALBUMIN 3.1 g/dl (3.4-5.0); ALK PHOS 76 U/L (45-117); ANION GAP 15 MMOL/L (8-16); BILIRUBIN,TOTAL 0.3 mg/dL (0.2-1); BLOOD UREA NITROGEN 9 mg/dL (7-18); CALCIUM 8.7 mg/dL (8.5-10.1); CHLORIDE 79 mmol/L (98-107); CO2 > 45 mmol/L (21-32); CREATININE 0.5 mg/dL (0.55-1.3); GLUCOSE,RANDOM 247 mg/dL (74-106); POTASSIUM 3.5 mmol/L (3.5-5.1); SGOT/AST 19 U/L (15-37); SGPT/ALT 18 U/L (13-61); SODIUM 138 mmol/L (136-145); TOT PROT 6.1 g/dl (6.4-8.2)
--- NOTE | 2018-04-06 00:24 | PDOC ---
Attending Attestation - Resident Resident Name: Todd Torres - ED Attending Attestation I have performed the following: I have examined & evaluated the patient, The case was reviewed & discussed with the resident, I agree w/resident's findings & plan, Exceptions are as noted - HPI HPI: 04/06/18 00:20 The patient is a 57 year old female, with a past medical history of COPD ( multiple hospitalizations and prior intubations) O2 dependant (2L at rest, 4L while ambulating), HTN, CHF, hypothyroidism, NAVDEEP, who presents to the emergency department for episode of confusion. Pt's family attempted to wake pt when she was found sleeping in her chair tonight but was unable to wake her. Pt states she recalls being very confused. She recalls thinking she was in the hospital and states that she urinated on herself. She states that after a few minutes, she became more awake but still feels "discombobulated". Pt states this is consistent with her previous COPD flares, though she denies any significant SOB/ CP. She denies any head or neck trauma, palpitation, weakness, or loss of sensation. She denies any tongue biting. Family denies any convulsions at this time. She denies recent fevers, chills, headache or dizziness. She denies recent nausea, vomit, diarrhea or constipation. She denies recent dysuria, frequency, urgency or hematuria. She denies recent chest pain or shortness of breath. Allergies: Penicillins. Past surgical history: None reported. Social history: Former smoker (Quit 8 years ago). Social alcohol usage. Denies recreational drug use. Primary Care Physician: Dr. Laura Navarro - Physicial Exam PE: 04/06/18 00:22 GENERAL: Awake, alert, and fully oriented, in no acute distress. HEAD: No signs of trauma EYES: PERRLA, EOMI, sclera anicteric, conjunctiva clear ENT: Auricles normal inspection, hearing grossly normal, nares patent, oropharynx clear without exudates. Moist mucosa NECK: Nontender, no stepoffs, Normal ROM, supple, no lymphadenopathy, JVD, or masses LUNGS: + poor aeration bilaterally + expiratory wheezes HEART: Regular rate and rhythm, normal S1 and S2, no murmurs, rubs or gallops ABDOMEN: Soft, nontender, normoactive bowel sounds. No guarding, no rebound. No masses EXTREMITIES: Normal range of motion, no edema. No clubbing or cyanosis. No cords, erythema, or tenderness NEUROLOGICAL: Cranial nerves II through XII intact. 5/5 strength and sensation in all extremities, Normal speech, normal gait, normal cerebellar function SKIN: Warm, Dry, normal turgor, no rashes or lesions noted. - Medical Decision Making 04/06/18 00:22 57 F with episode of confusion and lethargy. Possibly 2/2 hypercapnia from COPD flare. Pt with wheezing and poor aeration on lung exam. Also consider syncopal episode. Pt with no s/s of seizure-like activity. - Labs, trop - EKG - CXR - Nebs, steroids
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
--- NOTE | 2018-04-06 11:46 | EKG ---
Test Reason : Blood Pressure : / mmHG Vent. Rate : 081 BPM Atrial Rate : 081 BPM P-R Int : 124 ms QRS Dur : 076 ms QT Int : 364 ms P-R-T Axes : 057 064 059 degrees QTc Int : 422 ms NORMAL SINUS RHYTHM NORMAL ECG WHEN COMPARED WITH ECG OF 01-FEB-2018 23:16, NO SIGNIFICANT CHANGE WAS FOUND Confirmed by Tone Mendoza MD ([id number]) on 04/06/2018 11:46:19 AM Referred By: Confirmed By:Tone Mendoza MD
--- NOTE | 2018-04-06 12:17 | CON.PULM ---
Consult Consult Specialty:: PULMONARY Referred by:: Dr. Taylor Reason for Consultation:: shortness of breath - History of Present Illness Chief Complaint: shortness of breath History of Present Illness: 57yo female with h/o HTN, LV diastolic dysfunction, hypothyroidism, COPD, NAVDEEP, chronic hypoxic and hypercapneic respiratory failure on home O2 and trilogy device who presents with worsening shortness of breath x 2 days. States that she has a cough productive of clear sputum and increased wheezing. Also with increased leg swelling. No fevers, chills or sweats. Has been more confused last 2 days. Compliant with her medications and inhalers. Stopped using her trilogy device about a week ago as she could not connect the humidifier. Also had recently decreased her prednisone dose to 5mg daily from 10mg daily. - History Source History Provided By: Patient, Medical Record Limitations to Obtaining History: Clinical Condition - Past Medical History Cardio/Vascular: Yes: CHF, HTN Pulmonary: Yes: COPD, O2 Dependent ...LMP: 06/03/14 Infectious Disease: Yes: Other (pneumonia) Musculoskeletal: Yes: Chronic low back pain Endocrine: Yes: Hypothyroidism - Alcohol/Substance Use Hx Alcohol Use: No History of Substance Use: reports: None - Smoking History Smoking history: Never smoked Have you smoked in the past 12 months: No If you are a former smoker, when did you quit?: 8 years ago - Social History ADL: Family Assistance History of Recent Travel: No Home Medications - Allergies Allergies/Adverse Reactions: Allergies Allergy/AdvReac Type Severity Reaction Status Date / Time Penicillins Allergy Severe Difficulty Verified 04/05/18 21:06 Breathing - Home Medications Home Medications: Ambulatory Orders Levothyroxine [Synthroid -] 100 mcg PO DAILY@0700 tablet 06/24/17 Losartan Potassium [Cozaar -] 25 mg PO DAILY #30 tablet 06/24/17 Roflumilast [Daliresp] 500 mcg PO DAILY #30 tablet 06/24/17 Escitalopram Oxalate [Lexapro -] 10 mg PO DAILY 08/31/17 Potassium Chloride [K-Dur -] 10 meq PO DAILY 08/31/17 Furosemide [Lasix -] 20 mg PO DAILY 11/25/17 Albuterol 2.5/Ipratropium 0.5 [Duoneb -] 1 amp NEB RQID amp 01/20/18 Aspirin [ASA -] 81 mg PO DAILY 02/01/18 Albuterol 0.083% Nebulizer Colette [Ventolin 0.083% Nebulizer Soln -] 1 amp NEB Q4H PRN #90 amp 02/05/18 Prednisone 5 mg PO DAILY #20 tablet 02/05/18 Albuterol Sulfate Inhaler - [Ventolin Hfa Inhaler -] 1 - 2 inh PO Q4H PRN Montelukast Sodium [Singulair] 5 mg PO DAILY 04/05/18 Rosuvastatin [Crestor -] 5 mg PO HS 04/05/18 Review of Systems - Review of Systems Constitutional: reports: Lethargy, Weakness. denies: Chills, Fever Eyes: denies: Recent Change in Vision HENT: denies: Nasal Congestion, Throat Pain Neck: denies: Stiffness, Tenderness Cardiovascular: reports: Edema, Shortness of Breath. denies: Chest Pain, Palpitations Respiratory: reports: Cough, Exercise Intolerance, SOB, SOB on Exertion, Wheezing. denies: Hemoptysis Gastrointestinal: denies: Abdominal Pain, Nausea, Vomiting Genitourinary: denies: Dysuria, Hematuria Neurological: reports: Confusion. denies: Dizziness, Headache Endocrine: denies: Unexplained Weight Loss Physical Exam Vital Sings: Vital Signs Temperature 98.8 F 04/06/18 08:28 Pulse Rate 92 H 04/06/18 08:28 Respiratory Rate 18 04/06/18 08:28 Blood Pressure 118/65 04/06/18 08:28 O2 Sat by Pulse Oximetry (%) 98 04/06/18 06:42 Constitutional: Yes: Mild Distress (nasal flaring) Eyes: Yes: Conjunctiva Clear, EOM Intact HENT: Yes: Atraumatic, Normocephalic Neck: Yes: Supple, Trachea Midline Cardiovascular: Yes: Regular Rate and Rhythm Respiratory: Yes: Diminished, Poor Air Entry, Rhonchi, Wheezes ...Clubbing: No Gastrointestinal: Yes: Normal Bowel Sounds, Soft, Abdomen, Obese. No: Tenderness Labs: CBC, BMP 04/05/18 22:20 04/05/18 22:20 Imaging - Results Chest X-ray: Report Reviewed, Image Reviewed (no infiltrates) Problem List - Problems (1) Acute on chronic respiratory failure with hypoxia and hypercapnia Code(s): J96.21 - ACUTE AND CHRONIC RESPIRATORY FAILURE WITH HYPOXIA; J96.22 - ACUTE AND CHRONIC RESPIRATORY FAILURE WITH HYPERCAPNIA (2) COPD exacerbation Code(s): J44.1 - CHRONIC OBSTRUCTIVE PULMONARY DISEASE W (ACUTE) EXACERBATION (3) Acute diastolic (congestive) heart failure Code(s): I50.31 - ACUTE DIASTOLIC (CONGESTIVE) HEART FAILURE (4) Hypertension Code(s): I10 - ESSENTIAL (PRIMARY) HYPERTENSION (5) Hypothyroidism Code(s): E03.9 - HYPOTHYROIDISM, UNSPECIFIED Qualifiers: Hypothyroidism type: unspecified Qualified Code(s): E03.9 - Hypothyroidism , unspecified Assessment/Plan Acute on Chronic Hypoxic and Hypercapneic Respiratory Failure Acute COPD Exacerbation LV Diastolic Dysfunction HTN Hypothyroidism - IV medrol - inhaled bronchodilators standing and PRN - instructed pt to have bring trilogy device in - BiPAP until trilogy in - O2 to keep SpO2 88-92% - lasix - monitor urine output, creatinine - DVT prophylaxis thank you for this consult Roman Mckinley MD
[2018-04-06] MEDS ORDERED: ALBUTEROL SO4 0.083% IH SOL 2.5 MG/3 ML VIAL.NEB. NEB PRN ×2 (12:21→14:24)
[2018-04-06] MEDS: AZITHROMYCIN IVPB 500 MG/250 ML BAG IVPB SCH (12:55)
[2018-04-06] MEDS: methylPREDNISolone NA SUCC 40 MG/1 ML VIAL IVPUSH SCH ×2 (12:55→18:02)
[2018-04-06] MEDS ORDERED: ALBUTEROL SO4 2.5/IPRATROPIUM 0.5 INH SOL 3 ML VIAL.NEB. NEB SCH (16:00)
[2018-04-06] MEDS ORDERED: INSULIN (NOVOLOG) ASPART 100 UNITS/ML 10ML VIAL ONE (16:40)
[2018-04-06] MEDS: INSULIN SLIDING SCALE (NOVOLOG) 1 VIAL SQ SCH ×2 (16:49→22:49)
[2018-04-06] MEDS: ALBUTEROL SO4 2.5/IPRATROPIUM 0.5 INH SOL 3 ML VIAL.NEB. NEB SCH (20:45)
[2018-04-06] MEDS: HEPARIN NA (PORCINE) 5,000 UNITS/ML 1ML VIAL SQ SCH (22:47)
[2018-04-06] MEDS: MONTELUKAST NA 5 MG TAB.CHEW PO SCH (22:47)
[2018-04-06] MEDS: RANITIDINE HCL 150 MG TABLET (FP) PO SCH (22:47)
[2018-04-06] MEDS: ROSUVASTATIN CA 5 MG TABLET (FP) PO SCH (23:42)
[2018-04-07] MEDS: methylPREDNISolone NA SUCC 40 MG/1 ML VIAL IVPUSH SCH ×3 (02:45→18:09)
[2018-04-07] MEDS: LEVOTHYROXINE NA 100 MCG TABLET (FP) PO SCH (06:51)
[2018-04-07] MEDS: INSULIN SLIDING SCALE (NOVOLOG) 1 VIAL SQ SCH ×4 (06:54→22:45)
[2018-04-07 07:21] LABS: BASO % 0.1 % (0-2.0); HEMATOCRIT 36.1 % (32.4-45.2); HEMOGLOBIN 11.4 GM/dL (10.7-15.3); LYMPH % 2.4 % (8-40); MCH 30.3 pg (25.7-33.7); MCHC 31.5 g/dl (32.0-36.0); MEAN CELL VOLUME 96.1 fl (80-96); MEAN PLT VOLUME 8.3 fl (7.5-11.1); MONO % 2.4 % (3.8-10.2); NEUT % 95.1 % (42.8-82.8); PLATELET COUNT 177 K/MM3 (134-434); RBC 3.75 M/mm3 (3.60-5.2); WHITE BLOOD COUNT 7.8 K/mm3 (4.0-10.0)
[2018-04-07 08:08] LABS: ALK PHOS 66 U/L (45-117); BILIRUBIN,TOTAL 0.4 mg/dL (0.2-1); BLOOD UREA NITROGEN 14 mg/dL (7-18); CHLORIDE 82 mmol/L (98-107); CREATININE 0.5 mg/dL (0.55-1.3); GLUCOSE,RANDOM 149 mg/dL (74-106); POTASSIUM 3.4 mmol/L (3.5-5.1); SGOT/AST 15 U/L (15-37); SGPT/ALT 16 U/L (13-61); SODIUM 138 mmol/L (136-145); TOT PROT 5.8 g/dl (6.4-8.2)
[2018-04-07] MEDS: ALBUTEROL SO4 2.5/IPRATROPIUM 0.5 INH SOL 3 ML VIAL.NEB. NEB SCH ×4 (08:12→20:46)
[2018-04-07 08:46] LABS: ANION GAP 2 MMOL/L (8-16); CO2 54 mmol/L (21-32)
[2018-04-07] MEDS ORDERED: POTASSIUM CHLORIDE TABS 10 MEQ TABLET.ER (FP) PO SCH (10:00)
[2018-04-07] MEDS ORDERED: PT OWN MED DRAWER 7, Y5N ONE ×2 (11:28→12:13)
[2018-04-07] MEDS: ASPIRIN 81 MG CHEWABLE TABLETS PO SCH (11:29)
[2018-04-07] MEDS: LOSARTAN POTASSIUM 25 MG TABLET PO SCH (11:29)
[2018-04-07] MEDS: RANITIDINE HCL 150 MG TABLET (FP) PO SCH ×2 (11:31→22:57)
[2018-04-07] MEDS: ESCITALOPRAM OXALATE 10 MG TABLET (FP) PO SCH (11:31)
[2018-04-07] MEDS: HEPARIN NA (PORCINE) 5,000 UNITS/ML 1ML VIAL SQ SCH ×2 (11:32→22:45)
[2018-04-07] MEDS: FUROSEMIDE 20 MG TABLET (FP) PO SCH (11:32)
[2018-04-07] MEDS: ACETAMINOPHEN 325 MG TABLET (FP) PO PRN (11:32)
[2018-04-07] MEDS: AZITHROMYCIN IVPB 500 MG/250 ML BAG IVPB SCH (11:35)
--- NOTE | 2018-04-07 11:41 | PN ---
Progress Note, Physician Chief Complaint: still wheezing but O2 sat 90%s not confused used Bipap prn - Current Medication List Current Medications: Active Medications Acetaminophen (Tylenol -) 650 mg PO Q6H PRN PRN Reason: PAIN LEVEL 1-5 Last Admin: 04/07/18 11:32 Dose: 650 mg Albuterol Sulfate (Ventolin 0.083% Nebulizer Soln -) 1 amp NEB Q4H PRN PRN Reason: SHORT OF BREATH/WHEEZING Albuterol Sulfate (Ventolin Hfa Inhaler -) 1 puff IH Q4H PRN PRN Reason: ASTHMA Albuterol/Ipratropium (Duoneb -) 1 amp NEB RQID [facility] Last Admin: 04/07/18 11:03 Dose: 1 amp Aspirin (Asa -) 81 mg PO DAILY [facility] Last Admin: 04/07/18 11:29 Dose: 81 mg Escitalopram Oxalate (Lexapro -) 10 mg PO DAILY [facility] Last Admin: 04/07/18 11:31 Dose: 10 mg Furosemide (Lasix -) 20 mg PO DAILY [facility] Last Admin: 04/07/18 11:32 Dose: 20 mg Heparin Sodium (Porcine) (Heparin -) 5,000 unit SQ BID [facility] Last Admin: 04/07/18 11:32 Dose: 5,000 unit Azithromycin (Zithromax 500mg Ivpb (Pre-Docked)) 500 mg in 250 mls @ 250 mls/ hr IVPB DAILY [facility] Stop: 04/10/18 10:59 Last Admin: 04/07/18 11:35 Dose: 250 mls/hr Insulin Aspart (Novolog Vial Sliding Scale -) 1 vial SQ ACHS [facility]; Protocol Last Admin: 04/07/18 06:54 Dose: 2 units Levothyroxine Sodium (Synthroid -) 100 mcg PO DAILY@0700 [facility] Last Admin: 04/07/18 06:51 Dose: 100 mcg Losartan Potassium (Cozaar -) 25 mg PO DAILY [facility] Last Admin: 04/07/18 11:29 Dose: 25 mg Methylprednisolone Sodium Succinate (Solu-Medrol -) 40 mg IVPUSH Q8H-IV [facility] Last Admin: 04/07/18 11:32 Dose: 40 mg Montelukast Sodium (Singulair -) 5 mg PO HS [facility] Last Admin: 04/06/18 22:47 Dose: 5 mg Potassium Chloride (K-Dur -) 20 meq PO DAILY [facility] Ranitidine HCl (Zantac -) 150 mg PO BID [facility] Last Admin: 04/07/18 11:31 Dose: 150 mg Roflumilast (Daliresp -) 500 mcg PO DAILY [facility] Rosuvastatin Calcium (Crestor -) 5 mg PO HS [facility] Last Admin: 04/06/18 23:42 Dose: 5 mg - Objective Vital Signs: Vital Signs Temperature 97.7 F 04/07/18 06:00 Pulse Rate 79 04/07/18 06:00 Respiratory Rate 20 04/07/18 06:00 Blood Pressure 144/77 04/07/18 06:00 O2 Sat by Pulse Oximetry (%) 98 04/07/18 08:11 Constitutional: Yes: No Distress, Calm Eyes: Yes: Conjunctiva Clear HENT: Yes: Atraumatic Neck: Yes: Supple Cardiovascular: Yes: Regular Rate and Rhythm Respiratory: Yes: Wheezes Gastrointestinal: Yes: Soft. No: Distention Genitourinary: No: CVA Tenderness - Left, CVA Tenderness - Right Musculoskeletal: No: Joint Stiffness, Joint Swelling Extremities: No: Cold, Cool, Cyanosis Edema: No Integumentary: No: Rash, Venous Stasis Changes Neurological: Yes: WNL, Alert, Oriented ...Motor Strength: WNL Psychiatric: Yes: WNL, Alert, Oriented. No: Agitated, Suicidal Ideation Labs: CBC, BMP 04/07/18 06:30 04/07/18 06:30 INR, PTT INR 0.93 (0.83-1.09) 04/05/18 22:20 - ....Imaging Other: Report Reviewed Assessment/Plan 57 y/o F w/PMH of COPD (requiring multiple hospitalizations and prior intubations; O2 dependant - 2L at rest, 4L while ambulating), HTN, CHF, hypothyroidism, NAVDEEP presents to the ER with confusion hypoxemia O2 sat in the 70 % Acute on Chronic COPD exac IV steroids nebs pulm eval case mgr and respiratory eval DVT falls decubs pfx; pt is ambulatory d/w pt falls PFX close f/u d/w staff
[2018-04-07] MEDS: ROFLUMILAST 500 MCG TABLET PO SCH (12:32)
--- NOTE | 2018-04-07 13:14 | PN ---
Progress Note, Physician History of Present Illness: pulmonary alert,still dyspneic,+ occ cough - Current Medication List Current Medications: Active Medications Acetaminophen (Tylenol -) 650 mg PO Q6H PRN PRN Reason: PAIN LEVEL 1-5 Last Admin: 04/07/18 11:32 Dose: 650 mg Albuterol Sulfate (Ventolin 0.083% Nebulizer Soln -) 1 amp NEB Q4H PRN PRN Reason: SHORT OF BREATH/WHEEZING Albuterol Sulfate (Ventolin Hfa Inhaler -) 1 puff IH Q4H PRN PRN Reason: ASTHMA Albuterol/Ipratropium (Duoneb -) 1 amp NEB RQID [facility] Last Admin: 04/07/18 11:03 Dose: 1 amp Aspirin (Asa -) 81 mg PO DAILY [facility] Last Admin: 04/07/18 11:29 Dose: 81 mg Escitalopram Oxalate (Lexapro -) 10 mg PO DAILY [facility] Last Admin: 04/07/18 11:31 Dose: 10 mg Furosemide (Lasix -) 20 mg PO DAILY [facility] Last Admin: 04/07/18 11:32 Dose: 20 mg Heparin Sodium (Porcine) (Heparin -) 5,000 unit SQ BID [facility] Last Admin: 04/07/18 11:32 Dose: 5,000 unit Azithromycin (Zithromax 500mg Ivpb (Pre-Docked)) 500 mg in 250 mls @ 250 mls/ hr IVPB DAILY [facility] Stop: 04/10/18 10:59 Last Admin: 04/07/18 11:35 Dose: 250 mls/hr Insulin Aspart (Novolog Vial Sliding Scale -) 1 vial SQ ACHS [facility]; Protocol Last Admin: 04/07/18 12:00 Dose: 2 units Levothyroxine Sodium (Synthroid -) 100 mcg PO DAILY@0700 [facility] Last Admin: 04/07/18 06:51 Dose: 100 mcg Losartan Potassium (Cozaar -) 25 mg PO DAILY [facility] Last Admin: 04/07/18 11:29 Dose: 25 mg Methylprednisolone Sodium Succinate (Solu-Medrol -) 40 mg IVPUSH Q8H-IV [facility] Last Admin: 04/07/18 11:32 Dose: 40 mg Montelukast Sodium (Singulair -) 5 mg PO HS [facility] Last Admin: 04/06/18 22:47 Dose: 5 mg Potassium Chloride (K-Dur -) 20 meq PO DAILY [facility] Ranitidine HCl (Zantac -) 150 mg PO BID [facility] Last Admin: 04/07/18 11:31 Dose: 150 mg Roflumilast (Daliresp -) 500 mcg PO DAILY [facility] Last Admin: 04/07/18 12:32 Dose: 500 mcg Rosuvastatin Calcium (Crestor -) 5 mg PO HS [facility] Last Admin: 04/06/18 23:42 Dose: 5 mg - Objective Vital Signs: Vital Signs Temperature 97.7 F 04/07/18 06:00 Pulse Rate 79 04/07/18 06:00 Respiratory Rate 20 04/07/18 06:00 Blood Pressure 144/77 04/07/18 06:00 O2 Sat by Pulse Oximetry (%) 98 04/07/18 08:11 Constitutional: Yes: Well Nourished, Calm Eyes: Yes: WNL HENT: Yes: WNL Neck: Yes: WNL Cardiovascular: Yes: Regular Rate and Rhythm, S1, S2 Respiratory: Yes: Wheezes (scattered steve wheezes) Gastrointestinal: Yes: Normal Bowel Sounds, Soft Extremities: Yes: WNL Edema: No Labs: CBC, BMP 04/07/18 06:30 04/07/18 06:30 INR, PTT INR 0.93 (0.83-1.09) 04/05/18 22:20 Assessment/Plan Problem List - Problems (1) Acute on chronic respiratory failure with hypoxia and hypercapnia Code(s): J96.21 - ACUTE AND CHRONIC RESPIRATORY FAILURE WITH HYPOXIA; J96.22 - ACUTE AND CHRONIC RESPIRATORY FAILURE WITH HYPERCAPNIA (2) COPD exacerbation Code(s): J44.1 - CHRONIC OBSTRUCTIVE PULMONARY DISEASE W (ACUTE) EXACERBATION (3) Acute diastolic (congestive) heart failure Code(s): I50.31 - ACUTE DIASTOLIC (CONGESTIVE) HEART FAILURE (4) Hypertension Code(s): I10 - ESSENTIAL (PRIMARY) HYPERTENSION (5) Hypothyroidism Code(s): E03.9 - HYPOTHYROIDISM, UNSPECIFIED Qualifiers: Hypothyroidism type: unspecified Qualified Code(s): E03.9 - Hypothyroidism , unspecified Assessment/Plan Acute on Chronic Hypoxic and Hypercapneic Respiratory Failure Acute COPD Exacerbation LV Diastolic Dysfunction HTN Hypothyroidism - IV medrol same dose - inhaled bronchodilators standing and PRN - BiPAP - O2 to keep SpO2 88-92% - lasix - monitor urine output, creatinine - DVT prophylaxis DR MEDEIROS
[2018-04-07 13:48] LABS: ANISOCYTOSIS 3+; MACROCYTOSIS 0; PLATELET ESTIMATE NORMAL
[2018-04-07] MEDS: MONTELUKAST NA 5 MG TAB.CHEW PO SCH (22:45)
[2018-04-07] MEDS: ROSUVASTATIN CA 5 MG TABLET (FP) PO SCH (22:45)
[2018-04-08] MEDS: methylPREDNISolone NA SUCC 40 MG/1 ML VIAL IVPUSH SCH ×3 (01:42→17:25)
[2018-04-08] MEDS: INSULIN SLIDING SCALE (NOVOLOG) 1 VIAL SQ SCH ×4 (06:29→21:24)
[2018-04-08] MEDS: ACETAMINOPHEN 325 MG TABLET (FP) PO PRN (06:30)
[2018-04-08] MEDS: LEVOTHYROXINE NA 100 MCG TABLET (FP) PO SCH (06:30)
[2018-04-08 07:23] LABS: HEMATOCRIT 35.6 % (32.4-45.2); HEMOGLOBIN 11.2 GM/dL (10.7-15.3); LYMPH % 4.2 % (8-40); MCH 30.2 pg (25.7-33.7); MCHC 31.5 g/dl (32.0-36.0); MEAN CELL VOLUME 95.9 fl (80-96); MEAN PLT VOLUME 8.3 fl (7.5-11.1); MONO % 3.6 % (3.8-10.2); NEUT % 92.2 % (42.8-82.8); PLATELET COUNT 177 K/MM3 (134-434); RBC 3.71 M/mm3 (3.60-5.2); RDW 13.9 % (11.6-15.6); WHITE BLOOD COUNT 6.2 K/mm3 (4.0-10.0)
[2018-04-08] MEDS: ALBUTEROL SO4 2.5/IPRATROPIUM 0.5 INH SOL 3 ML VIAL.NEB. NEB SCH ×4 (07:32→20:15)
[2018-04-08 08:05] LABS: ALK PHOS 61 U/L (45-117); BILIRUBIN,TOTAL 0.2 mg/dL (0.2-1); BLOOD UREA NITROGEN 17 mg/dL (7-18); CALCIUM 8.8 mg/dL (8.5-10.1); CHLORIDE 82 mmol/L (98-107); CREATININE 0.6 mg/dL (0.55-1.3); GLUCOSE,RANDOM 162 mg/dL (74-106); POTASSIUM 3.9 mmol/L (3.5-5.1); SGOT/AST 13 U/L (15-37); SGPT/ALT 17 U/L (13-61); SODIUM 139 mmol/L (136-145); TOT PROT 5.7 g/dl (6.4-8.2)
[2018-04-08 09:13] LABS: CO2 55 mmol/L (21-32)
[2018-04-08 09:14] LABS: ANION GAP 2 MMOL/L (8-16)
--- NOTE | 2018-04-08 10:12 | PN ---
Progress Note, Physician Chief Complaint: feeling better less SOB will taper steroids per pulm as possible pt mentioned she has aj with cardio outpt next week dr Murray will call here to see pt too - Current Medication List Current Medications: Active Medications Acetaminophen (Tylenol -) 650 mg PO Q6H PRN PRN Reason: PAIN LEVEL 1-5 Last Admin: 04/08/18 06:30 Dose: 650 mg Albuterol Sulfate (Ventolin 0.083% Nebulizer Soln -) 1 amp NEB Q4H PRN PRN Reason: SHORT OF BREATH/WHEEZING Albuterol Sulfate (Ventolin Hfa Inhaler -) 1 puff IH Q4H PRN PRN Reason: ASTHMA Albuterol/Ipratropium (Duoneb -) 1 amp NEB RQID [facility] Last Admin: 04/07/18 20:46 Dose: 1 amp Aspirin (Asa -) 81 mg PO DAILY [facility] Last Admin: 04/07/18 11:29 Dose: 81 mg Escitalopram Oxalate (Lexapro -) 10 mg PO DAILY [facility] Last Admin: 04/07/18 11:31 Dose: 10 mg Furosemide (Lasix -) 20 mg PO DAILY [facility] Last Admin: 04/07/18 11:32 Dose: 20 mg Heparin Sodium (Porcine) (Heparin -) 5,000 unit SQ BID [facility] Last Admin: 04/07/18 22:45 Dose: 5,000 unit Azithromycin (Zithromax 500mg Ivpb (Pre-Docked)) 500 mg in 250 mls @ 250 mls/ hr IVPB DAILY [facility] Stop: 04/10/18 10:59 Last Admin: 04/07/18 11:35 Dose: 250 mls/hr Insulin Aspart (Novolog Vial Sliding Scale -) 1 vial SQ ACHS [facility]; Protocol Last Admin: 04/08/18 06:29 Dose: 2 units Levothyroxine Sodium (Synthroid -) 100 mcg PO DAILY@0700 [facility] Last Admin: 04/08/18 06:30 Dose: 100 mcg Losartan Potassium (Cozaar -) 25 mg PO DAILY [facility] Last Admin: 04/07/18 11:29 Dose: 25 mg Methylprednisolone Sodium Succinate (Solu-Medrol -) 40 mg IVPUSH Q8H-IV [facility] Last Admin: 04/08/18 01:42 Dose: 40 mg Montelukast Sodium (Singulair -) 5 mg PO HS [facility] Last Admin: 04/07/18 22:45 Dose: 5 mg Potassium Chloride (K-Dur -) 20 meq PO DAILY [facility] Ranitidine HCl (Zantac -) 150 mg PO BID [facility] Last Admin: 04/07/18 22:57 Dose: 150 mg Roflumilast (Daliresp -) 500 mcg PO DAILY [facility] Last Admin: 04/07/18 12:32 Dose: 500 mcg Rosuvastatin Calcium (Crestor -) 5 mg PO HS [facility] Last Admin: 04/07/18 22:45 Dose: 5 mg - Objective Vital Signs: Vital Signs Temperature 97.5 F L 04/08/18 06:00 Pulse Rate 77 04/08/18 06:00 Respiratory Rate 22 H 04/08/18 06:00 Blood Pressure 127/65 04/08/18 06:00 O2 Sat by Pulse Oximetry (%) 93 L 04/08/18 08:33 Constitutional: Yes: No Distress, Calm Eyes: Yes: Conjunctiva Clear HENT: Yes: Atraumatic Neck: Yes: Supple Cardiovascular: Yes: Regular Rate and Rhythm Respiratory: Yes: Wheezes (less) Gastrointestinal: Yes: Soft. No: Distention Genitourinary: No: CVA Tenderness - Left, CVA Tenderness - Right Musculoskeletal: No: Joint Stiffness, Joint Swelling Extremities: No: Cold, Cool, Cyanosis Edema: No Integumentary: No: Rash, Venous Stasis Changes Neurological: Yes: WNL, Alert, Oriented ...Motor Strength: WNL Psychiatric: Yes: WNL, Alert, Oriented. No: Agitated, Suicidal Ideation Labs: CBC, BMP 04/08/18 06:40 04/08/18 06:40 INR, PTT INR 0.93 (0.83-1.09) 04/05/18 22:20 - ....Imaging Other: Report Reviewed Assessment/Plan 57 y/o F w/PMH of COPD (requiring multiple hospitalizations and prior intubations; O2 dependant - 2L at rest, 4L while ambulating), HTN, CHF, hypothyroidism, NAVDEEP presents to the ER with confusion hypoxemia O2 sat in the 70 % Acute on Chronic COPD exac IV steroids nebs pulm f/u cardio eval casework supervisor and respiratory eval DVT falls decubs pfx; pt is ambulatory d/w pt falls PFX close f/u d/w staff
[2018-04-08] MEDS ORDERED: PT OWN MED DRAWER 7, Y5N ONE ×2 (10:24→20:14)
[2018-04-08] MEDS: ROFLUMILAST 500 MCG TABLET PO SCH (10:35)
[2018-04-08] MEDS: HEPARIN NA (PORCINE) 5,000 UNITS/ML 1ML VIAL SQ SCH ×2 (10:35→21:25)
[2018-04-08] MEDS: FUROSEMIDE 20 MG TABLET (FP) PO SCH (10:35)
[2018-04-08] MEDS: ESCITALOPRAM OXALATE 10 MG TABLET (FP) PO SCH (10:35)
[2018-04-08] MEDS: POTASSIUM CHLORIDE TABS 20 MEQ TABLET.ER (FP) PO SCH (10:35)
[2018-04-08] MEDS: ASPIRIN 81 MG CHEWABLE TABLETS PO SCH (10:35)
[2018-04-08] MEDS: LOSARTAN POTASSIUM 25 MG TABLET PO SCH (10:35)
[2018-04-08] MEDS: RANITIDINE HCL 150 MG TABLET (FP) PO SCH ×2 (10:35→21:24)
[2018-04-08] MEDS: AZITHROMYCIN IVPB 500 MG/250 ML BAG IVPB SCH (10:36)
--- NOTE | 2018-04-08 11:40 | PN ---
Progress Note (short form) - Note Progress Note: PULMONARY Breathing about the same. Still with cough, wheezing and chest tightness. Vital Signs Period Temp Pulse Resp BP Sys/Domínguez Pulse Ox Last 24 Hr 97.5 F-99.1 F 77-93 22-22 103-127/52-65 93-97 Gen: mildly tachypneic with speaking Heart: RRR Lung: poor air movement, bilateral rhonchi, wheezes Abd: soft, nontender Ext: no edema CBC, BMP 04/08/18 06:40 04/08/18 06:40 Active Medications Acetaminophen (Tylenol -) 650 mg PO Q6H PRN PRN Reason: PAIN LEVEL 1-5 Last Admin: 04/08/18 06:30 Dose: 650 mg Albuterol Sulfate (Ventolin 0.083% Nebulizer Soln -) 1 amp NEB Q4H PRN PRN Reason: SHORT OF BREATH/WHEEZING Albuterol Sulfate (Ventolin Hfa Inhaler -) 1 puff IH Q4H PRN PRN Reason: ASTHMA Albuterol/Ipratropium (Duoneb -) 1 amp NEB RQID [facility] Last Admin: 04/07/18 20:46 Dose: 1 amp Aspirin (Asa -) 81 mg PO DAILY [facility] Last Admin: 04/08/18 10:35 Dose: 81 mg Escitalopram Oxalate (Lexapro -) 10 mg PO DAILY [facility] Last Admin: 04/08/18 10:35 Dose: 10 mg Furosemide (Lasix -) 20 mg PO DAILY [facility] Last Admin: 04/08/18 10:35 Dose: 20 mg Heparin Sodium (Porcine) (Heparin -) 5,000 unit SQ BID [facility] Last Admin: 04/08/18 10:35 Dose: 5,000 unit Azithromycin (Zithromax 500mg Ivpb (Pre-Docked)) 500 mg in 250 mls @ 250 mls/ hr IVPB DAILY [facility] Stop: 04/10/18 10:59 Last Admin: 04/08/18 10:36 Dose: 250 mls/hr Insulin Aspart (Novolog Vial Sliding Scale -) 1 vial SQ ACHS [facility]; Protocol Last Admin: 04/08/18 06:29 Dose: 2 units Levothyroxine Sodium (Synthroid -) 100 mcg PO DAILY@0700 [facility] Last Admin: 04/08/18 06:30 Dose: 100 mcg Losartan Potassium (Cozaar -) 25 mg PO DAILY [facility] Last Admin: 04/08/18 10:35 Dose: 25 mg Methylprednisolone Sodium Succinate (Solu-Medrol -) 40 mg IVPUSH Q8H-IV [facility] Last Admin: 04/08/18 10:35 Dose: 40 mg Montelukast Sodium (Singulair -) 5 mg PO HS [facility] Last Admin: 04/07/18 22:45 Dose: 5 mg Potassium Chloride (K-Dur -) 20 meq PO DAILY [facility] Last Admin: 04/08/18 10:35 Dose: 20 meq Ranitidine HCl (Zantac -) 150 mg PO BID [facility] Last Admin: 04/08/18 10:35 Dose: 150 mg Roflumilast (Daliresp -) 500 mcg PO DAILY [facility] Last Admin: 04/08/18 10:35 Dose: 500 mcg Rosuvastatin Calcium (Crestor -) 5 mg PO HS [facility] Last Admin: 04/07/18 22:45 Dose: 5 mg A/P Acute on Chronic Hypoxic and Hypercapneic Respiratory Failure Acute COPD Exacerbation LV Diastolic Dysfunction HTN Hypothyroidism - continue medrol at current dose - inhaled bronchodilators standing and PRN - BiPAP - O2 to keep SpO2 88-92% - lasix - monitor urine output, creatinine - DVT prophylaxis Problem List - Problems (1) Acute on chronic respiratory failure with hypoxia and hypercapnia Code(s): J96.21 - ACUTE AND CHRONIC RESPIRATORY FAILURE WITH HYPOXIA; J96.22 - ACUTE AND CHRONIC RESPIRATORY FAILURE WITH HYPERCAPNIA (2) COPD exacerbation Code(s): J44.1 - CHRONIC OBSTRUCTIVE PULMONARY DISEASE W (ACUTE) EXACERBATION (3) Acute diastolic (congestive) heart failure Code(s): I50.31 - ACUTE DIASTOLIC (CONGESTIVE) HEART FAILURE (4) Hypertension Code(s): I10 - ESSENTIAL (PRIMARY) HYPERTENSION (5) Hypothyroidism Code(s): E03.9 - HYPOTHYROIDISM, UNSPECIFIED Qualifiers: Hypothyroidism type: unspecified Qualified Code(s): E03.9 - Hypothyroidism , unspecified
[2018-04-08 14:16] LABS: ANISOCYTOSIS 1+; MACROCYTOSIS 1+; PLATELET ESTIMATE NORMAL
[2018-04-08] MEDS ORDERED: INSULIN (NOVOLOG) ASPART 100 UNITS/ML 10ML VIAL ONE (17:07)
[2018-04-08] MEDS: ALBUTEROL SO4 8 GM HFA INHALER IH PRN (20:24)
[2018-04-08] MEDS: ROSUVASTATIN CA 5 MG TABLET (FP) PO SCH (21:24)
[2018-04-08] MEDS: MONTELUKAST NA 5 MG TAB.CHEW PO SCH (21:24)
[2018-04-09] MEDS: methylPREDNISolone NA SUCC 40 MG/1 ML VIAL IVPUSH SCH ×3 (02:24→18:51)
[2018-04-09] MEDS: LEVOTHYROXINE NA 100 MCG TABLET (FP) PO SCH (06:20)
[2018-04-09] MEDS: INSULIN SLIDING SCALE (NOVOLOG) 1 VIAL SQ SCH ×4 (06:20→21:29)
[2018-04-09] MEDS: ALBUTEROL SO4 2.5/IPRATROPIUM 0.5 INH SOL 3 ML VIAL.NEB. NEB SCH ×4 (08:48→20:54)
[2018-04-09] MEDS ORDERED: PT OWN MED DRAWER 7, Y5N ONE (09:57)
--- NOTE | 2018-04-09 09:57 | PN ---
Progress Note, Physician Chief Complaint: feels better slept well occasional wheezing and cough - Current Medication List Current Medications: Active Medications Acetaminophen (Tylenol -) 650 mg PO Q6H PRN PRN Reason: PAIN LEVEL 1-5 Last Admin: 04/08/18 06:30 Dose: 650 mg Albuterol Sulfate (Ventolin 0.083% Nebulizer Soln -) 1 amp NEB Q4H PRN PRN Reason: SHORT OF BREATH/WHEEZING Albuterol Sulfate (Ventolin Hfa Inhaler -) 1 puff IH Q4H PRN PRN Reason: ASTHMA Last Admin: 04/08/18 20:24 Dose: 1 puff Albuterol/Ipratropium (Duoneb -) 1 amp NEB RQID [facility] Last Admin: 04/09/18 08:48 Dose: 1 amp Aspirin (Asa -) 81 mg PO DAILY [facility] Last Admin: 04/08/18 10:35 Dose: 81 mg Escitalopram Oxalate (Lexapro -) 10 mg PO DAILY [facility] Last Admin: 04/08/18 10:35 Dose: 10 mg Furosemide (Lasix -) 20 mg PO DAILY [facility] Last Admin: 04/08/18 10:35 Dose: 20 mg Heparin Sodium (Porcine) (Heparin -) 5,000 unit SQ BID [facility] Last Admin: 04/08/18 21:25 Dose: 5,000 unit Azithromycin (Zithromax 500mg Ivpb (Pre-Docked)) 500 mg in 250 mls @ 250 mls/ hr IVPB DAILY [facility] Stop: 04/10/18 10:59 Last Admin: 04/08/18 10:36 Dose: 250 mls/hr Insulin Aspart (Novolog Vial Sliding Scale -) 1 vial SQ ACHS [facility]; Protocol Last Admin: 04/09/18 06:20 Dose: 2 units Levothyroxine Sodium (Synthroid -) 100 mcg PO DAILY@0700 [facility] Last Admin: 04/09/18 06:20 Dose: 100 mcg Losartan Potassium (Cozaar -) 25 mg PO DAILY [facility] Last Admin: 04/08/18 10:35 Dose: 25 mg Methylprednisolone Sodium Succinate (Solu-Medrol -) 40 mg IVPUSH Q8H-IV [facility] Last Admin: 04/09/18 02:24 Dose: 40 mg Montelukast Sodium (Singulair -) 5 mg PO HS [facility] Last Admin: 04/08/18 21:24 Dose: 5 mg Potassium Chloride (K-Dur -) 20 meq PO DAILY [facility] Last Admin: 04/08/18 10:35 Dose: 20 meq Ranitidine HCl (Zantac -) 150 mg PO BID [facility] Last Admin: 04/08/18 21:24 Dose: 150 mg Roflumilast (Daliresp -) 500 mcg PO DAILY [facility] Last Admin: 04/08/18 10:35 Dose: 500 mcg Rosuvastatin Calcium (Crestor -) 5 mg PO HS [facility] Last Admin: 04/08/18 21:24 Dose: 5 mg - Objective Vital Signs: Vital Signs Temperature 98.2 F 04/09/18 07:45 Pulse Rate 72 04/09/18 07:45 Respiratory Rate 20 04/09/18 07:45 Blood Pressure 127/64 04/09/18 07:45 O2 Sat by Pulse Oximetry (%) 96 04/08/18 21:44 Constitutional: Yes: No Distress, Calm Eyes: Yes: Conjunctiva Clear HENT: Yes: Atraumatic Neck: Yes: Supple Cardiovascular: Yes: Regular Rate and Rhythm Respiratory: Yes: Wheezes (less) Gastrointestinal: Yes: Soft. No: Distention Genitourinary: No: CVA Tenderness - Left, CVA Tenderness - Right Musculoskeletal: No: Joint Stiffness, Joint Swelling Extremities: No: Cold, Cool, Cyanosis Edema: No Integumentary: No: Rash, Skin Tear, Venous Stasis Changes Neurological: Yes: WNL, Alert, Oriented ...Motor Strength: WNL Psychiatric: Yes: WNL, Alert, Oriented. 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
[2018-04-09] MEDS: ASPIRIN 81 MG CHEWABLE TABLETS PO SCH (10:05)
[2018-04-09] MEDS: LOSARTAN POTASSIUM 25 MG TABLET PO SCH (10:05)
[2018-04-09] MEDS: POTASSIUM CHLORIDE TABS 20 MEQ TABLET.ER (FP) PO SCH (10:06)
[2018-04-09] MEDS: ROFLUMILAST 500 MCG TABLET PO SCH (10:06)
[2018-04-09] MEDS: HEPARIN NA (PORCINE) 5,000 UNITS/ML 1ML VIAL SQ SCH ×2 (10:06→21:29)
[2018-04-09] MEDS: ESCITALOPRAM OXALATE 10 MG TABLET (FP) PO SCH (10:07)
[2018-04-09] MEDS: RANITIDINE HCL 150 MG TABLET (FP) PO SCH ×2 (10:07→21:29)
[2018-04-09] MEDS: FUROSEMIDE 20 MG TABLET (FP) PO SCH (10:07)
[2018-04-09] MEDS: AZITHROMYCIN IVPB 500 MG/250 ML BAG IVPB SCH (10:08)
--- NOTE | 2018-04-09 13:18 | PN ---
Progress Note, Physician History of Present Illness: pulmonary alert,feeling better,less dyspneic - Current Medication List Current Medications: Active Medications Acetaminophen (Tylenol -) 650 mg PO Q6H PRN PRN Reason: PAIN LEVEL 1-5 Last Admin: 04/08/18 06:30 Dose: 650 mg Albuterol Sulfate (Ventolin 0.083% Nebulizer Soln -) 1 amp NEB Q4H PRN PRN Reason: SHORT OF BREATH/WHEEZING Albuterol Sulfate (Ventolin Hfa Inhaler -) 1 puff IH Q4H PRN PRN Reason: ASTHMA Last Admin: 04/08/18 20:24 Dose: 1 puff Albuterol/Ipratropium (Duoneb -) 1 amp NEB RQID [facility] Last Admin: 04/09/18 12:12 Dose: 1 amp Aspirin (Asa -) 81 mg PO DAILY [facility] Last Admin: 04/09/18 10:05 Dose: 81 mg Escitalopram Oxalate (Lexapro -) 10 mg PO DAILY [facility] Last Admin: 04/09/18 10:07 Dose: 10 mg Furosemide (Lasix -) 20 mg PO DAILY [facility] Last Admin: 04/09/18 10:07 Dose: 20 mg Heparin Sodium (Porcine) (Heparin -) 5,000 unit SQ BID [facility] Last Admin: 04/09/18 10:06 Dose: 5,000 unit Azithromycin (Zithromax 500mg Ivpb (Pre-Docked)) 500 mg in 250 mls @ 250 mls/ hr IVPB DAILY [facility] Stop: 04/10/18 10:59 Last Admin: 04/09/18 10:08 Dose: 250 mls/hr Insulin Aspart (Novolog Vial Sliding Scale -) 1 vial SQ ACHS [facility]; Protocol Last Admin: 04/09/18 11:58 Dose: Not Given Levothyroxine Sodium (Synthroid -) 100 mcg PO DAILY@0700 [facility] Last Admin: 04/09/18 06:20 Dose: 100 mcg Losartan Potassium (Cozaar -) 25 mg PO DAILY [facility] Last Admin: 04/09/18 10:05 Dose: 25 mg Methylprednisolone Sodium Succinate (Solu-Medrol -) 40 mg IVPUSH Q8H-[facility] Last Admin: 04/09/18 10:07 Dose: 40 mg Montelukast Sodium (Singulair -) 5 mg PO HS [facility] Last Admin: 04/08/18 21:24 Dose: 5 mg Potassium Chloride (K-Dur -) 20 meq PO DAILY [facility] Last Admin: 04/09/18 10:06 Dose: 20 meq Ranitidine HCl (Zantac -) 150 mg PO BID [facility] Last Admin: 04/09/18 10:07 Dose: 150 mg Roflumilast (Daliresp -) 500 mcg PO DAILY [facility] Last Admin: 04/09/18 10:06 Dose: 500 mcg Rosuvastatin Calcium (Crestor -) 5 mg PO HS [facility] Last Admin: 04/08/18 21:24 Dose: 5 mg - Objective Vital Signs: Vital Signs Temperature 98.2 F 04/09/18 07:45 Pulse Rate 72 04/09/18 07:45 Respiratory Rate 20 04/09/18 07:45 Blood Pressure 127/64 04/09/18 07:45 O2 Sat by Pulse Oximetry (%) 99 04/09/18 12:11 Constitutional: Yes: Well Nourished, Calm Eyes: Yes: WNL HENT: Yes: WNL Neck: Yes: WNL Cardiovascular: Yes: Regular Rate and Rhythm, S1, S2 Respiratory: Yes: Diminished Gastrointestinal: Yes: Normal Bowel Sounds, Soft Extremities: Yes: WNL Edema: No Assessment/Plan Problem List - Problems (1) Acute on chronic respiratory failure with hypoxia and hypercapnia Code(s): J96.21 - ACUTE AND CHRONIC RESPIRATORY FAILURE WITH HYPOXIA; J96.22 - ACUTE AND CHRONIC RESPIRATORY FAILURE WITH HYPERCAPNIA (2) COPD exacerbation Code(s): J44.1 - CHRONIC OBSTRUCTIVE PULMONARY DISEASE W (ACUTE) EXACERBATION (3) Acute diastolic (congestive) heart failure Code(s): I50.31 - ACUTE DIASTOLIC (CONGESTIVE) HEART FAILURE (4) Hypertension Code(s): I10 - ESSENTIAL (PRIMARY) HYPERTENSION (5) Hypothyroidism Code(s): E03.9 - HYPOTHYROIDISM, UNSPECIFIED Qualifiers: Hypothyroidism type: unspecified Qualified Code(s): E03.9 - Hypothyroidism , unspecified Assessment/Plan Acute on Chronic Hypoxic and Hypercapneic Respiratory Failure Acute COPD Exacerbation LV Diastolic Dysfunction HTN Hypothyroidism - IV medrol - inhaled bronchodilators standing and PRN - BiPAP - O2 to keep SpO2 88-92% - lasix - monitor urine output, creatinine - DVT prophylaxis DR MEDEIROS
--- NOTE | 2018-04-09 14:00 | CON.CARD ---
Consult Consult Specialty:: Cardiology Referred by:: Agustina Taylor MD Reason for Consultation:: Dyspnea - History of Present Illness Chief Complaint: Dyspnea History of Present Illness: 57yo female with h/o HTN, CAD, LV diastolic dysfunction, hypothyroidism, COPD, NAVDEEP, chronic hypoxic and hypercapneic respiratory failure on home O2 and trilogy device initially presented with worsening shortness of breath, cough productive of clear sputum, increased wheezing and increased leg swelling over last 2 days. No fevers, chills or sweats. Compliant with her medications and inhalers, but steroids recently weaned from 10 mg to 5 mg daily. Stopped using her trilogy device about a week ago as she could not connect the humidifier. - History Source History Provided By: Patient Limitations to Obtaining History: No Limitations - Past Medical History Cardio/Vascular: Yes: CHF, HTN Pulmonary: Yes: COPD, O2 Dependent ...LMP: 06/03/14 Infectious Disease: Yes: Other (pneumonia) Musculoskeletal: Yes: Chronic low back pain Endocrine: Yes: Hypothyroidism - Alcohol/Substance Use Hx Alcohol Use: No History of Substance Use: reports: None - Smoking History Smoking history: Never smoked Have you smoked in the past 12 months: No If you are a former smoker, when did you quit?: 8 years ago - Social History ADL: Family Assistance History of Recent Travel: No Home Medications - Allergies Allergies/Adverse Reactions: Allergies Allergy/AdvReac Type Severity Reaction Status Date / Time Penicillins Allergy Severe Difficulty Verified 04/05/18 21:06 Breathing - Home Medications Home Medications: Ambulatory Orders Levothyroxine [Synthroid -] 100 mcg PO DAILY@0700 tablet 06/24/17 Losartan Potassium [Cozaar -] 25 mg PO DAILY #30 tablet 06/24/17 Roflumilast [Daliresp] 500 mcg PO DAILY #30 tablet 06/24/17 Escitalopram Oxalate [Lexapro -] 10 mg PO DAILY 08/31/17 Potassium Chloride [K-Dur -] 10 meq PO DAILY 08/31/17 Furosemide [Lasix -] 20 mg PO DAILY 11/25/17 Albuterol 2.5/Ipratropium 0.5 [Duoneb -] 1 amp NEB RQID amp 01/20/18 Aspirin [ASA -] 81 mg PO DAILY 02/01/18 Albuterol 0.083% Nebulizer Colette [Ventolin 0.083% Nebulizer Soln -] 1 amp NEB Q4H PRN #90 amp 02/05/18 Prednisone 5 mg PO DAILY #20 tablet 02/05/18 Albuterol Sulfate Inhaler - [Ventolin Hfa Inhaler -] 1 - 2 inh PO Q4H PRN Montelukast Sodium [Singulair] 5 mg PO DAILY 04/05/18 Rosuvastatin [Crestor -] 5 mg PO HS 04/05/18 Review of Systems - Review of Systems Constitutional: reports: No Symptoms Eyes: reports: No Symptoms HENT: reports: No Symptoms Neck: reports: Swollen Glands Cardiovascular: reports: No Symptoms Respiratory: reports: Cough, SOB, Wheezing Gastrointestinal: reports: No Symptoms Genitourinary: reports: No Symptoms Musculoskeletal: reports: No Symptoms Integumentary: reports: No Symptoms Vital Signs: Vital Signs Temperature 98.2 F 04/09/18 07:45 Pulse Rate 72 04/09/18 07:45 Respiratory Rate 20 04/09/18 07:45 Blood Pressure 127/64 04/09/18 07:45 O2 Sat by Pulse Oximetry (%) 99 04/09/18 12:11 Constitutional: Yes: No Distress, Calm Neck: Yes: Supple Respiratory: Yes: Regular, Diminished, On Nasal O2 Gastrointestinal: Yes: Normal Bowel Sounds, Soft, Abdomen, Obese Cardiovascular: Yes: Regular Rate and Rhythm JVD: No Carotid Bruit: No Heart Sounds: Yes: S1, S2 Murmur: Yes: Systolic Murmur, Grade 1 Edema: Yes Edema: LLE: Trace, RLE: Trace - Other Data Labs, Other Data: CBC, BMP 04/08/18 06:40 04/08/18 06:40 INR, PTT INR 0.93 (0.83-1.09) 04/05/18 22:20 SR @ 81 Echo: Report Reviewed Ejection Fraction %: LVEF > or = 40 % Imaging - Results Chest X-ray: Report Reviewed (NAD) Problem List - Problems (1) Diastolic dysfunction Code(s): I51.9 - HEART DISEASE, UNSPECIFIED (2) Hyperlipidemia Code(s): E78.5 - HYPERLIPIDEMIA, UNSPECIFIED Qualifiers: Hyperlipidemia type: pure hypercholesterolemia Qualified Code(s): E78.00 - Pure hypercholesterolemia, unspecified; E78.0 - Pure hypercholesterolemia (3) COPD exacerbation Code(s): J44.1 - CHRONIC OBSTRUCTIVE PULMONARY DISEASE W (ACUTE) EXACERBATION (4) Acute on chronic respiratory failure with hypoxia and hypercapnia Code(s): J96.21 - ACUTE AND CHRONIC RESPIRATORY FAILURE WITH HYPOXIA; J96.22 - ACUTE AND CHRONIC RESPIRATORY FAILURE WITH HYPERCAPNIA (5) Hypertension Code(s): I10 - ESSENTIAL (PRIMARY) HYPERTENSION Qualifiers: Hypertension type: essential hypertension Qualified Code(s): I10 - Essential (primary) hypertension (6) Hypothyroidism Code(s): E03.9 - HYPOTHYROIDISM, UNSPECIFIED Qualifiers: Hypothyroidism type: unspecified Qualified Code(s): E03.9 - Hypothyroidism , unspecified Assessment/Plan 06/19/2014 Echo: Normal LV size and fxn with tr TR 10/08/2015 -Myoview: No ischemia, LVEF 70% 02/25/[address]: MIld-mod centrilobular emphysema/COPD with minimal coronary calcification 1. Acute on Chronic Hypoxic and Hypercapneic Respiratory Failure 2. Acute home O2-dependent COPD Exacerbation 3. LV Diastolic Dysfunction 4. CAD, angina pectoris 5. HTN 6. Hyperlipidemia 7. Hypothyroidism 8. Mild caortid atherosclerosis P: 1. Continue IV medrol with GI protection, empiric abx, inhaled bronchodilators standing and PRN, Singulair, Daliresp, BiPAP,O2 to keep SpO2 88- 92% 2. Continue ASA 81 qd, Lasix 20 qd, losartan 25 qd, Crestor 5 qd 3. Patient is scheduled for routine echo and stress testing as outpatient 4. Thank you for consultative opportunity
[2018-04-09] MEDS ORDERED: INSULIN (NOVOLOG) ASPART 100 UNITS/ML 10ML VIAL ONE (21:27)
[2018-04-09] MEDS: MONTELUKAST NA 5 MG TAB.CHEW PO SCH (21:29)
[2018-04-09] MEDS: ROSUVASTATIN CA 5 MG TABLET (FP) PO SCH (21:29)
[2018-04-09] MEDS: ACETAMINOPHEN 325 MG TABLET (FP) PO PRN (21:32)
[2018-04-10] MEDS: methylPREDNISolone NA SUCC 40 MG/1 ML VIAL IVPUSH SCH ×4 (01:37→22:23)
[2018-04-10] MEDS: INSULIN SLIDING SCALE (NOVOLOG) 1 VIAL SQ SCH ×4 (06:14→21:56)
[2018-04-10] MEDS: LEVOTHYROXINE NA 100 MCG TABLET (FP) PO SCH (06:15)
[2018-04-10 08:13] LABS: HEMATOCRIT 35.6 % (32.4-45.2); HEMOGLOBIN 11.3 GM/dL (10.7-15.3); LYMPH % 2.8 % (8-40); MCH 30.2 pg (25.7-33.7); MCHC 31.8 g/dl (32.0-36.0); MEAN CELL VOLUME 94.9 fl (80-96); MEAN PLT VOLUME 8.8 fl (7.5-11.1); MONO % 4.7 % (3.8-10.2); NEUT % 92.5 % (42.8-82.8); PLATELET COUNT 163 K/MM3 (134-434); RBC 3.75 M/mm3 (3.60-5.2); RDW 13.5 % (11.6-15.6); WHITE BLOOD COUNT 6.5 K/mm3 (4.0-10.0)
[2018-04-10] MEDS: ALBUTEROL SO4 2.5/IPRATROPIUM 0.5 INH SOL 3 ML VIAL.NEB. NEB SCH ×4 (08:19→20:50)
[2018-04-10 09:21] LABS: ALK PHOS 55 U/L (45-117); BILIRUBIN,TOTAL 0.5 mg/dL (0.2-1); BLOOD UREA NITROGEN 24 mg/dL (7-18); CALCIUM 8.7 mg/dL (8.5-10.1); CHLORIDE 87 mmol/L (98-107); CREATININE 0.6 mg/dL (0.55-1.3); GLUCOSE,RANDOM 154 mg/dL (74-106); POTASSIUM 4.2 mmol/L (3.5-5.1); SGOT/AST 15 U/L (15-37); SGPT/ALT 19 U/L (13-61); SODIUM 137 mmol/L (136-145); TOT PROT 5.8 g/dl (6.4-8.2)
[2018-04-10] MEDS: AZITHROMYCIN IVPB 500 MG/250 ML BAG IVPB SCH (10:08)
[2018-04-10] MEDS: ROFLUMILAST 500 MCG TABLET PO SCH (10:10)
[2018-04-10] MEDS: ASPIRIN 81 MG CHEWABLE TABLETS PO SCH (10:10)
[2018-04-10] MEDS: HEPARIN NA (PORCINE) 5,000 UNITS/ML 1ML VIAL SQ SCH ×2 (10:10→21:56)
[2018-04-10] MEDS: RANITIDINE HCL 150 MG TABLET (FP) PO SCH ×2 (10:10→21:55)
[2018-04-10] MEDS: FUROSEMIDE 20 MG TABLET (FP) PO SCH (10:10)
[2018-04-10] MEDS: POTASSIUM CHLORIDE TABS 20 MEQ TABLET.ER (FP) PO SCH (10:10)
[2018-04-10] MEDS: ESCITALOPRAM OXALATE 10 MG TABLET (FP) PO SCH (10:10)
[2018-04-10] MEDS: LOSARTAN POTASSIUM 25 MG TABLET PO SCH (10:14)
--- NOTE | 2018-04-10 10:54 | PN ---
Progress Note, Physician Chief Complaint: in bed still some wheezing and cough but better - taper steroids per pulm - Current Medication List Current Medications: Active Medications Acetaminophen (Tylenol -) 650 mg PO Q6H PRN PRN Reason: PAIN LEVEL 1-5 Last Admin: 04/09/18 21:32 Dose: 650 mg Albuterol Sulfate (Ventolin 0.083% Nebulizer Soln -) 1 amp NEB Q4H PRN PRN Reason: SHORT OF BREATH/WHEEZING Albuterol Sulfate (Ventolin Hfa Inhaler -) 1 puff IH Q4H PRN PRN Reason: ASTHMA Last Admin: 04/08/18 20:24 Dose: 1 puff Albuterol/Ipratropium (Duoneb -) 1 amp NEB RQID [facility] Last Admin: 04/10/18 08:19 Dose: 1 amp Aspirin (Asa -) 81 mg PO DAILY [facility] Last Admin: 04/10/18 10:10 Dose: 81 mg Escitalopram Oxalate (Lexapro -) 10 mg PO DAILY [facility] Last Admin: 04/10/18 10:10 Dose: 10 mg Furosemide (Lasix -) 20 mg PO DAILY [facility] Last Admin: 04/10/18 10:10 Dose: 20 mg Heparin Sodium (Porcine) (Heparin -) 5,000 unit SQ BID [facility] Last Admin: 04/10/18 10:10 Dose: 5,000 unit Azithromycin (Zithromax 500mg Ivpb (Pre-Docked)) 500 mg in 250 mls @ 250 mls/ hr IVPB DAILY [facility] Stop: 04/10/18 10:59 Last Admin: 04/10/18 10:08 Dose: 250 mls/hr Insulin Aspart (Novolog Vial Sliding Scale -) 1 vial SQ ACHS [facility]; Protocol Last Admin: 04/10/18 06:14 Dose: 2 units Levothyroxine Sodium (Synthroid -) 100 mcg PO DAILY@0700 [facility] Last Admin: 04/10/18 06:15 Dose: 100 mcg Losartan Potassium (Cozaar -) 25 mg PO DAILY [facility] Last Admin: 04/10/18 10:14 Dose: 25 mg Methylprednisolone Sodium Succinate (Solu-Medrol -) 40 mg IVPUSH Q12H [facility] Montelukast Sodium (Singulair -) 5 mg PO HS [facility] Last Admin: 04/09/18 21:29 Dose: 5 mg Potassium Chloride (K-Dur -) 20 meq PO DAILY [facility] Last Admin: 04/10/18 10:10 Dose: 20 meq Ranitidine HCl (Zantac -) 150 mg PO BID [facility] Last Admin: 04/10/18 10:10 Dose: 150 mg Roflumilast (Daliresp -) 500 mcg PO DAILY [facility] Last Admin: 04/10/18 10:10 Dose: 500 mcg Rosuvastatin Calcium (Crestor -) 5 mg PO HS [facility] Last Admin: 04/09/18 21:29 Dose: 5 mg - Objective Vital Signs: Vital Signs Temperature 97.8 F 04/10/18 09:30 Pulse Rate 94 H 04/10/18 09:30 Respiratory Rate 22 H 04/10/18 09:30 Blood Pressure 120/70 04/10/18 09:30 O2 Sat by Pulse Oximetry (%) 93 L 04/10/18 03:27 Constitutional: Yes: No Distress, Calm Eyes: Yes: Conjunctiva Clear HENT: Yes: Atraumatic Neck: Yes: Supple Cardiovascular: Yes: Regular Rate and Rhythm Respiratory: Yes: Wheezes Gastrointestinal: Yes: Soft. No: Tenderness Genitourinary: No: CVA Tenderness - Left, CVA Tenderness - Right Musculoskeletal: No: Joint Stiffness, Joint Swelling Extremities: No: Cold, Cool, Cyanosis Edema: No Integumentary: No: Rash, Venous Stasis Changes Neurological: Yes: WNL, Alert, Oriented ...Motor Strength: WNL Psychiatric: Yes: WNL, Alert, Oriented. No: Agitated, Suicidal Ideation Labs: CBC, BMP 04/10/18 07:00 04/10/18 07:00 INR, PTT INR 0.93 (0.83-1.09) 04/05/18 22:20 - ....Imaging Other: Report Reviewed Assessment/Plan 57 y/o F w/PMH of COPD (requiring multiple hospitalizations and prior intubations; O2 dependant - 2L at rest, 4L while ambulating), HTN, CHF, hypothyroidism, NAVDEEP admitted with Acute on Chronic COPD exac, better after treatments IV steroids taper per pulm nebs pulm f/u cardio f/u counseling case manager and respiratory f/u DVT falls decubs pfx; pt is ambulatory d/w pt falls PFX close f/u d/w staff
[2018-04-10 11:34] LABS: ANION GAP -2 MMOL/L (8-16); CO2 52 mmol/L (21-32)
--- NOTE | 2018-04-10 13:55 | PN ---
Progress Note (short form) - Note Progress Note: Breathing feels better today. Has Trilogy at the bedside. No CP. Cough is the same. Intake & Output 04/07/18 04/08/18 04/09/18 04/10/18 23:59 23:59 23:59 23:59 Intake Total 850 850 250 265 Balance 850 850 250 265 Weight 160 lb 3.2 oz 159 lb 8 oz 159 lb 6 oz Last Vital Signs Temp Pulse Resp BP Pulse Ox 97.8 F 94 H 22 H 120/70 96 04/10/18 09:30 04/10/18 09:30 04/10/18 09:30 04/10/18 09:30 04/10/18 09:00 Active Medications Acetaminophen (Tylenol -) 650 mg PO Q6H PRN PRN Reason: PAIN LEVEL 1-5 Last Admin: 04/09/18 21:32 Dose: 650 mg Albuterol Sulfate (Ventolin 0.083% Nebulizer Soln -) 1 amp NEB Q4H PRN PRN Reason: SHORT OF BREATH/WHEEZING Albuterol Sulfate (Ventolin Hfa Inhaler -) 1 puff IH Q4H PRN PRN Reason: ASTHMA Last Admin: 04/08/18 20:24 Dose: 1 puff Albuterol/Ipratropium (Duoneb -) [address] [facility] Last Admin: 04/10/18 12:07 Dose: 1 amp Aspirin (Asa -) [address] [facility] Last Admin: 04/10/18 10:10 Dose: 81 mg Escitalopram Oxalate (Lexapro -) [address] [facility] Last Admin: 04/10/18 10:10 Dose: 10 mg Furosemide (Lasix -) [address] [facility] Last Admin: 04/10/18 10:10 Dose: 20 mg Heparin Sodium (Porcine) (Heparin -) 5,[address] [facility] Last Admin: 04/10/18 10:10 Dose: 5,000 unit Insulin Aspart (Novolog Vial Sliding Scale -) [address] [facility]; Protocol Last Admin: 04/10/18 12:00 Dose: Not Given Levothyroxine Sodium (Synthroid -) 100 mcg PO DAILY@0700 [facility] Last Admin: 04/10/18 06:15 Dose: 100 mcg Losartan Potassium (Cozaar -) [address] [facility] Last Admin: 04/10/18 10:14 Dose: 25 mg Methylprednisolone Sodium Succinate (Solu-Medrol -) [address] [facility] Last Admin: 04/10/18 12:03 Dose: Not Given Montelukast Sodium (Singulair -) [address] [facility] Last Admin: 04/09/18 21:29 Dose: 5 mg Potassium Chloride (K-Dur -) [address] [facility] Last Admin: 04/10/18 10:10 Dose: 20 meq Ranitidine HCl (Zantac -) [address] [facility] Last Admin: 04/10/18 10:10 Dose: 150 mg Roflumilast (Daliresp -) [address] [facility] Last Admin: 04/10/18 10:10 Dose: 500 mcg Rosuvastatin Calcium (Crestor -) [address] [facility] Last Admin: 04/09/18 21:29 Dose: 5 mg Constitutional: Yes: NAD Eyes: Yes: WNL HENT: Yes: WNL Neck: Yes: WNL Cardiovascular: Yes: Regular Rate and Rhythm, S1, S2 Respiratory: Yes: Diminished Gastrointestinal: Yes: Normal Bowel Sounds, Soft Extremities: Yes: WNL Edema: No Assessment/Plan Problem List - Problems (1) Acute on chronic respiratory failure with hypoxia and hypercapnia Code(s): J96.21 - ACUTE AND CHRONIC RESPIRATORY FAILURE WITH HYPOXIA; J96.22 - ACUTE AND CHRONIC RESPIRATORY FAILURE WITH HYPERCAPNIA (2) COPD exacerbation Code(s): J44.1 - CHRONIC OBSTRUCTIVE PULMONARY DISEASE W (ACUTE) EXACERBATION (3) Acute diastolic (congestive) heart failure Code(s): I50.31 - ACUTE DIASTOLIC (CONGESTIVE) HEART FAILURE (4) Hypertension Code(s): I10 - ESSENTIAL (PRIMARY) HYPERTENSION (5) Hypothyroidism Code(s): E03.9 - HYPOTHYROIDISM, UNSPECIFIED Qualifiers: Hypothyroidism type: unspecified Qualified Code(s): E03.9 - Hypothyroidism , unspecified Assessment/Plan Acute on Chronic Hypoxic and Hypercapneic Respiratory Failure Acute COPD Exacerbation LV Diastolic Dysfunction HTN Hypothyroidism - Will wean IV medrol tomorrow - inhaled bronchodilators standing and PRN - O2 to keep SpO2 88-92% - lasix - monitor urine output, creatinine - DVT prophylaxis - Encouraged the patient to use her Trilogy device QHS an PRN Dr Jennings
[2018-04-10 14:02] LABS: PLATELET ESTIMATE ADEQUATE
[2018-04-10] MEDS ORDERED: INSULIN (NOVOLOG) ASPART 100 UNITS/ML 10ML VIAL ONE (21:35)
[2018-04-10] MEDS: ROSUVASTATIN CA 5 MG TABLET (FP) PO SCH (21:55)
[2018-04-10] MEDS: MONTELUKAST NA 5 MG TAB.CHEW PO SCH (22:22)
[2018-04-10] MEDS: ACETAMINOPHEN 325 MG TABLET (FP) PO PRN (22:22)
[2018-04-11] MEDS: INSULIN SLIDING SCALE (NOVOLOG) 1 VIAL SQ SCH ×4 (06:37→22:03)
[2018-04-11] MEDS: LEVOTHYROXINE NA 100 MCG TABLET (FP) PO SCH (06:37)
[2018-04-11] MEDS: ALBUTEROL SO4 2.5/IPRATROPIUM 0.5 INH SOL 3 ML VIAL.NEB. NEB SCH ×4 (09:17→22:04)
[2018-04-11] MEDS ORDERED: PT OWN MED DRAWER 7, Y5N ONE ×4 (09:52→18:15)
[2018-04-11] MEDS: ESCITALOPRAM OXALATE 10 MG TABLET (FP) PO SCH (09:54)
[2018-04-11] MEDS: FUROSEMIDE 20 MG TABLET (FP) PO SCH (09:54)
[2018-04-11] MEDS: LOSARTAN POTASSIUM 25 MG TABLET PO SCH (09:54)
[2018-04-11] MEDS: ASPIRIN 81 MG CHEWABLE TABLETS PO SCH (09:54)
[2018-04-11] MEDS: POTASSIUM CHLORIDE TABS 20 MEQ TABLET.ER (FP) PO SCH (09:54)
[2018-04-11] MEDS: RANITIDINE HCL 150 MG TABLET (FP) PO SCH ×2 (09:54→22:05)
[2018-04-11] MEDS: ROFLUMILAST 500 MCG TABLET PO SCH (09:54)
[2018-04-11] MEDS: HEPARIN NA (PORCINE) 5,000 UNITS/ML 1ML VIAL SQ SCH ×2 (09:55→22:02)
[2018-04-11] MEDS: methylPREDNISolone NA SUCC 40 MG/1 ML VIAL IVPUSH SCH ×2 (11:10→22:05)
[2018-04-11] MEDS: ALBUTEROL SO4 8 GM HFA INHALER IH PRN ×2 (11:11→17:53)
--- NOTE | 2018-04-11 11:56 | PN ---
Progress Note (short form) - Note Progress Note: Breathing feels better today. Has Trilogy at the bedside but used the hospital NIPPV. No CP. Cough is the same. Intake & Output 04/08/18 04/09/18 04/10/18 04/11/18 23:59 23:59 23:59 23:59 Intake Total 102 477 0220 Balance 678 040 4371 Weight 159 lb 8 oz 159 lb 6 oz 160 lb Last Vital Signs Temp Pulse Resp BP Pulse Ox 98.7 F 96 H 22 H 132/66 98 04/11/18 10:00 04/11/18 10:00 04/11/18 10:00 04/11/18 10:00 04/11/18 09:00 Active Medications Acetaminophen (Tylenol -) 650 mg PO Q6H PRN PRN Reason: PAIN LEVEL 1-5 Last Admin: 04/10/18 22:22 Dose: 650 mg Albuterol Sulfate (Ventolin 0.083% Nebulizer Soln -) 1 amp NEB Q4H PRN PRN Reason: SHORT OF BREATH/WHEEZING Albuterol Sulfate (Ventolin Hfa Inhaler -) 1 puff IH Q4H PRN PRN Reason: ASTHMA Last Admin: 04/11/18 11:11 Dose: 1 puff Albuterol/Ipratropium (Duoneb -) 1 amp NEB RQID [facility] Last Admin: 04/11/18 09:17 Dose: 1 amp Aspirin (Asa -) 81 mg PO DAILY [facility] Last Admin: 04/11/18 09:54 Dose: 81 mg Escitalopram Oxalate (Lexapro -) 10 mg PO DAILY [facility] Last Admin: 04/11/18 09:54 Dose: 10 mg Furosemide (Lasix -) 20 mg PO DAILY [facility] Last Admin: 04/11/18 09:54 Dose: 20 mg Heparin Sodium (Porcine) (Heparin -) 5,000 unit SQ BID [facility] Last Admin: 04/11/18 09:55 Dose: 5,000 unit Insulin Aspart (Novolog Vial Sliding Scale -) 1 vial SQ ACHS [facility]; Protocol Last Admin: 04/11/18 11:16 Dose: Not Given Levothyroxine Sodium (Synthroid -) 100 mcg PO DAILY@0700 [facility] Last Admin: 04/11/18 06:37 Dose: 100 mcg Losartan Potassium (Cozaar -) 25 mg PO DAILY [facility] Last Admin: 04/11/18 09:54 Dose: 25 mg Methylprednisolone Sodium Succinate (Solu-Medrol -) 40 mg IVPUSH Q12H [facility] Last Admin: 04/11/18 11:10 Dose: 40 mg Montelukast Sodium (Singulair -) 5 mg PO HS [facility] Last Admin: 04/10/18 22:22 Dose: 5 mg Potassium Chloride (K-Dur -) 20 meq PO DAILY [facility] Last Admin: 04/11/18 09:54 Dose: 20 meq Ranitidine HCl (Zantac -) 150 mg PO BID [facility] Last Admin: 04/11/18 09:54 Dose: 150 mg Roflumilast (Daliresp -) 500 mcg PO DAILY [facility] Last Admin: 04/11/18 09:54 Dose: 500 mcg Rosuvastatin Calcium (Crestor -) 5 mg PO HS [facility] Last Admin: 04/10/18 21:55 Dose: 5 mg Constitutional: Yes: NAD Eyes: Yes: WNL HENT: Yes: WNL Neck: Yes: WNL Cardiovascular: Yes: Regular Rate and Rhythm, S1, S2 Respiratory: Yes: (+) Expiratory Wheeze, diminished Gastrointestinal: Yes: Normal Bowel Sounds, Soft Extremities: Yes: WNL Edema: No Laboratory Results - last 24 hr 04/10/18 04/10/18 04/10/18 07:00 11:53 16:41 Total Counted 100 Neutrophils % (Manual) 87.0 H Band Neutrophils % 3.0 Lymphocytes % (Manual) 1.0 L D Monocytes % (Manual) 9 D Platelet Estimate Adequate POC Glucometer 142 129 04/10/18 04/11/18 04/11/18 21:13 06:16 11:15 Total Counted Neutrophils % (Manual) Band Neutrophils % Lymphocytes % (Manual) Monocytes % (Manual) Platelet Estimate POC Glucometer 198 143 97 Assessment/Plan Problem List - Problems (1) Acute on chronic respiratory failure with hypoxia and hypercapnia Code(s): J96.21 - ACUTE AND CHRONIC RESPIRATORY FAILURE WITH HYPOXIA; J96.22 - ACUTE AND CHRONIC RESPIRATORY FAILURE WITH HYPERCAPNIA (2) COPD exacerbation Code(s): J44.1 - CHRONIC OBSTRUCTIVE PULMONARY DISEASE W (ACUTE) EXACERBATION (3) Acute diastolic (congestive) heart failure Code(s): I50.31 - ACUTE DIASTOLIC (CONGESTIVE) HEART FAILURE (4) Hypertension Code(s): I10 - ESSENTIAL (PRIMARY) HYPERTENSION (5) Hypothyroidism Code(s): E03.9 - HYPOTHYROIDISM, UNSPECIFIED Qualifiers: Hypothyroidism type: unspecified Qualified Code(s): E03.9 - Hypothyroidism , unspecified Assessment/Plan Acute on Chronic Hypoxic and Hypercapneic Respiratory Failure Acute COPD Exacerbation LV Diastolic Dysfunction HTN Hypothyroidism - Maintain Medrol at same dose - inhaled bronchodilators standing and PRN - O2 to keep SpO2 88-92% - lasix - monitor urine output, creatinine - DVT prophylaxis - Patient has not used her Trilogy as there is no humidification unit (the equipment she has does not seem like a compatible part) - NIPPV QHS and PRN Dr Jennings
--- NOTE | 2018-04-11 13:49 | PN ---
Progress Note, Physician History of Present Illness: Shortness of breath, cough productive of clear sputum, wheezing and leg swelling improving. - Current Medication List Current Medications: Active Medications Acetaminophen (Tylenol -) 650 mg PO Q6H PRN PRN Reason: PAIN LEVEL 1-5 Last Admin: 04/10/18 22:22 Dose: 650 mg Albuterol Sulfate (Ventolin 0.083% Nebulizer Soln -) 1 amp NEB Q4H PRN PRN Reason: SHORT OF BREATH/WHEEZING Albuterol Sulfate (Ventolin Hfa Inhaler -) 1 puff IH Q4H PRN PRN Reason: ASTHMA Last Admin: 04/11/18 11:11 Dose: 1 puff Albuterol/Ipratropium (Duoneb -) 1 amp NEB RQID [facility] Last Admin: 04/11/18 09:17 Dose: 1 amp Aspirin (Asa -) 81 mg PO DAILY [facility] Last Admin: 04/11/18 09:54 Dose: 81 mg Escitalopram Oxalate (Lexapro -) 10 mg PO DAILY [facility] Last Admin: 04/11/18 09:54 Dose: 10 mg Furosemide (Lasix -) 20 mg PO DAILY [facility] Last Admin: 04/11/18 09:54 Dose: 20 mg Heparin Sodium (Porcine) (Heparin -) 5,000 unit SQ BID [facility] Last Admin: 04/11/18 09:55 Dose: 5,000 unit Insulin Aspart (Novolog Vial Sliding Scale -) 1 vial SQ [facility]; Protocol Last Admin: 04/11/18 11:16 Dose: Not Given Levothyroxine Sodium (Synthroid -) 100 mcg PO DAILY@0700 [facility] Last Admin: 04/11/18 06:37 Dose: 100 mcg Losartan Potassium (Cozaar -) 25 mg PO DAILY [facility] Last Admin: 04/11/18 09:54 Dose: 25 mg Methylprednisolone Sodium Succinate (Solu-Medrol -) 40 mg IVPUSH Q12H [facility] Last Admin: 04/11/18 11:10 Dose: 40 mg Montelukast Sodium (Singulair -) 5 mg PO HS [facility] Last Admin: 04/10/18 22:22 Dose: 5 mg Potassium Chloride (K-Dur -) 20 meq PO DAILY [facility] Last Admin: 04/11/18 09:54 Dose: 20 meq Ranitidine HCl (Zantac -) 150 mg PO BID [facility] Last Admin: 04/11/18 09:54 Dose: 150 mg Roflumilast (Daliresp -) 500 mcg PO DAILY [facility] Last Admin: 04/11/18 09:54 Dose: 500 mcg Rosuvastatin Calcium (Crestor -) 5 mg PO HS [facility] Last Admin: 04/10/18 21:55 Dose: 5 mg - Objective Vital Signs: Vital Signs Temperature 98.7 F 04/11/18 10:00 Pulse Rate 96 H 04/11/18 10:00 Respiratory Rate 22 H 04/11/18 10:00 Blood Pressure 132/66 04/11/18 10:00 O2 Sat by Pulse Oximetry (%) 98 04/11/18 09:00 Constitutional: Yes: No Distress, Calm Neck: Yes: Supple Cardiovascular: Yes: Regular Rate and Rhythm Respiratory: Yes: Regular, Diminished, On Nasal O2 Gastrointestinal: Yes: Normal Bowel Sounds, Soft Edema: No Labs: CBC, BMP 04/10/18 07:00 04/10/18 07:00 INR, PTT INR 0.93 (0.83-1.09) 04/05/18 22:20 Problem List - Problems (1) Diastolic dysfunction Code(s): I51.9 - HEART DISEASE, UNSPECIFIED (2) Hyperlipidemia Code(s): E78.5 - HYPERLIPIDEMIA, UNSPECIFIED Qualifiers: Hyperlipidemia type: pure hypercholesterolemia Qualified Code(s): E78.00 - Pure hypercholesterolemia, unspecified; E78.0 - Pure hypercholesterolemia (3) COPD exacerbation Code(s): J44.1 - CHRONIC OBSTRUCTIVE PULMONARY DISEASE W (ACUTE) EXACERBATION (4) Acute on chronic respiratory failure with hypoxia and hypercapnia Code(s): J96.21 - ACUTE AND CHRONIC RESPIRATORY FAILURE WITH HYPOXIA; J96.22 - ACUTE AND CHRONIC RESPIRATORY FAILURE WITH HYPERCAPNIA (5) Hypertension Code(s): I10 - ESSENTIAL (PRIMARY) HYPERTENSION Qualifiers: Hypertension type: essential hypertension Qualified Code(s): I10 - Essential (primary) hypertension (6) Hypothyroidism Code(s): E03.9 - HYPOTHYROIDISM, UNSPECIFIED Qualifiers: Hypothyroidism type: unspecified Qualified Code(s): E03.9 - Hypothyroidism , unspecified Assessment/Plan 06/19/2014 Echo: Normal LV size and fxn with tr TR 10/08/2015 -Myoview: No ischemia, LVEF 70% 02/25/[address]: MIld-mod centrilobular emphysema/COPD with minimal coronary calcification 1. Acute on Chronic Hypoxic and Hypercapneic Respiratory Failure 2. Acute home O2-dependent COPD Exacerbation 3. LV Diastolic Dysfunction 4. CAD, angina pectoris 5. HTN 6. Hyperlipidemia 7. Hypothyroidism 8. Mild carotid atherosclerosis P: 1. Continue IV medrol with GI protection, empiric abx, inhaled bronchodilators standing and PRN, Singulair, Daliresp, BiPAP,O2 to keep SpO2 88- 92% 2. Continue ASA 81 qd, Lasix 20 qd, losartan 25 qd, Crestor 5 qd 3. Patient is scheduled for routine echo and stress testing as outpatient 4. DVT prophylaxis 5. Patient has not used her Trilogy as there is no humidification unit (the equipment she has does not seem like a compatible part)
--- NOTE | 2018-04-11 15:10 | PN ---
Progress Note, Physician Chief Complaint: feels better but still waiting for a piece for her Bipap machine - Current Medication List Current Medications: Active Medications Acetaminophen (Tylenol -) 650 mg PO Q6H PRN PRN Reason: PAIN LEVEL 1-5 Last Admin: 04/10/18 22:22 Dose: 650 mg Albuterol Sulfate (Ventolin 0.083% Nebulizer Soln -) 1 amp NEB Q4H PRN PRN Reason: SHORT OF BREATH/WHEEZING Albuterol Sulfate (Ventolin Hfa Inhaler -) 1 puff IH Q4H PRN PRN Reason: ASTHMA Last Admin: 04/11/18 11:11 Dose: 1 puff Albuterol/Ipratropium (Duoneb -) 1 amp NEB RQID [facility] Last Admin: 04/11/18 09:17 Dose: 1 amp Aspirin (Asa -) 81 mg PO DAILY [facility] Last Admin: 04/11/18 09:54 Dose: 81 mg Escitalopram Oxalate (Lexapro -) 10 mg PO DAILY [facility] Last Admin: 04/11/18 09:54 Dose: 10 mg Furosemide (Lasix -) 20 mg PO DAILY [facility] Last Admin: 04/11/18 09:54 Dose: 20 mg Heparin Sodium (Porcine) (Heparin -) 5,000 unit SQ BID [facility] Last Admin: 04/11/18 09:55 Dose: 5,000 unit Insulin Aspart (Novolog Vial Sliding Scale -) 1 vial SQ [facility]; Protocol Last Admin: 04/11/18 11:16 Dose: Not Given Levothyroxine Sodium (Synthroid -) 100 mcg PO DAILY@0700 [facility] Last Admin: 04/11/18 06:37 Dose: 100 mcg Losartan Potassium (Cozaar -) 25 mg PO DAILY [facility] Last Admin: 04/11/18 09:54 Dose: 25 mg Methylprednisolone Sodium Succinate (Solu-Medrol -) 40 mg IVPUSH Q12H [facility] Last Admin: 04/11/18 11:10 Dose: 40 mg Montelukast Sodium (Singulair -) 5 mg PO HS [facility] Last Admin: 04/10/18 22:22 Dose: 5 mg Potassium Chloride (K-Dur -) 20 meq PO DAILY [facility] Last Admin: 04/11/18 09:54 Dose: 20 meq Ranitidine HCl (Zantac -) 150 mg PO BID [facility] Last Admin: 04/11/18 09:54 Dose: 150 mg Roflumilast (Daliresp -) 500 mcg PO DAILY [facility] Last Admin: 04/11/18 09:54 Dose: 500 mcg Rosuvastatin Calcium (Crestor -) 5 mg PO HS [facility] Last Admin: 04/10/18 21:55 Dose: 5 mg - Objective Vital Signs: Vital Signs Temperature 97.8 F 04/11/18 14:55 Pulse Rate 89 04/11/18 14:55 Respiratory Rate 24 H 04/11/18 14:55 Blood Pressure 102/64 04/11/18 14:55 O2 Sat by Pulse Oximetry (%) 98 04/11/18 09:00 Constitutional: Yes: No Distress, Calm Eyes: Yes: Conjunctiva Clear HENT: Yes: Atraumatic Neck: Yes: Supple Cardiovascular: Yes: Regular Rate and Rhythm Respiratory: Yes: Wheezes Gastrointestinal: Yes: Soft. No: Tenderness Genitourinary: No: CVA Tenderness - Left, CVA Tenderness - Right Musculoskeletal: No: Joint Stiffness, Joint Swelling Extremities: No: Cold, Cool, Cyanosis Edema: No Integumentary: No: Rash, Venous Stasis Changes Neurological: Yes: WNL, Alert, Oriented ...Motor Strength: WNL Psychiatric: Yes: WNL, Alert, Oriented. No: Agitated, Suicidal Ideation Labs: CBC, BMP 04/10/18 07:00 04/10/18 07:00 INR, PTT INR 0.93 (0.83-1.09) 04/05/18 22:20 - ....Imaging Other: Report Reviewed Assessment/Plan 57 y/o F w/PMH of COPD (requiring multiple hospitalizations and prior intubations; O2 dependant - 2L at rest, 4L while ambulating), HTN, CHF, hypothyroidism, NAVDEEP admitted with Acute on Chronic COPD exac, better after treatments IV steroids taper per pulm, f/u with pulm in am for Bipap machine parts nebs pulm f/u cardio f/u outpatient case manager and respiratory f/u DVT falls decubs pfx; pt is ambulatory d/w pt falls PFX close f/u d/w staff
[2018-04-11] MEDS ORDERED: INSULIN (NOVOLOG) ASPART 100 UNITS/ML 10ML VIAL ONE (21:52)
[2018-04-11] MEDS: ROSUVASTATIN CA 5 MG TABLET (FP) PO SCH (22:02)
[2018-04-11] MEDS: MONTELUKAST NA 5 MG TAB.CHEW PO SCH (22:03)
[2018-04-11] MEDS: ACETAMINOPHEN 325 MG TABLET (FP) PO PRN (22:07)
[2018-04-12] MEDS: INSULIN SLIDING SCALE (NOVOLOG) 1 VIAL SQ SCH ×3 (06:12→17:04)
[2018-04-12] MEDS: LEVOTHYROXINE NA 100 MCG TABLET (FP) PO SCH (06:12)
[2018-04-12] MEDS: ALBUTEROL SO4 2.5/IPRATROPIUM 0.5 INH SOL 3 ML VIAL.NEB. NEB SCH ×3 (07:38→17:00)
--- NOTE | 2018-04-12 09:45 | DS ---
Physical Examination Vital Signs: Vital Signs Temperature 98.6 F 04/11/18 18:18 Pulse Rate 88 04/11/18 22:00 Respiratory Rate 22 H 04/11/18 22:00 Blood Pressure 120/71 04/11/18 22:00 O2 Sat by Pulse Oximetry (%) 99 04/12/18 07:38 Findings/Remarks: feels better, cleared by pulm and cardio for DC home, pulm and CM arrainged for Bipap machine parts to be delivered at home today d/w pt f/u and treatment needed d/w pt and PCP dr Navarro Constitutional: Yes: No Distress, Calm Eyes: Yes: Conjunctiva Clear HENT: Yes: Atraumatic Neck: Yes: Supple Cardiovascular: Yes: Regular Rate and Rhythm Respiratory: Yes: CTA Bilaterally Gastrointestinal: Yes: Soft. No: Tenderness Renal/: No: CVA Tenderness - Left, CVA Tenderness - Right Musculoskeletal: No: Joint Stiffness, Joint Swelling Extremities: No: Cold, Cool, Cyanosis Edema: No Integumentary: No: Rash, Venous Stasis Changes Neurological: Yes: WNL, Alert, Oriented ...Motor Strength: WNL Psychiatric: Yes: WNL, Alert, Oriented. No: Agitated, Suicidal Ideation Labs: CBC, BMP 04/10/18 07:00 04/10/18 07:00 Discharge Summary Reason For Visit: COPD ACUTE EXACERBATION Current Active Problems COPD exacerbation (Acute) Diastolic dysfunction (Acute) Hyperlipidemia (Acute) Procedures: Principal: admitted with COPD exac Other Procedures: IV steroids, nebs, O2, Bipap machine; seen by cardiology and pulmonary;. f/u as advised Hospital Course: improved with above; DC home and f/u as advised; has home O2 NC, nebs, inhalers , Bipap machine Condition: Guarded - Instructions Diet, Activity, Other Instructions: f/u PCP cardiology and pulmonary drs in 1-2 weeks of DC home; use Bipap machine, O2 NC and inhalers as ordered and d/w pt; RTER if worse or recurrent health maintenance CYCLE COUNTER GI mammogram BDT to be done outpt with PCP Referrals: Denny Jennings MD [Staff Physician] - Shekhar Perales MD [Staff Physician] - Laura Navarro MD [Primary Care Provider] - Disposition: VNS/HOME HEALTH CARE - Home Medications Comprehensive Discharge Medication List: Ambulatory Orders Levothyroxine [Synthroid -] 100 mcg PO DAILY@0700 tablet 06/24/17 Losartan Potassium [Cozaar -] 25 mg PO DAILY #30 tablet 06/24/17 Roflumilast [Daliresp] 500 mcg PO DAILY #30 tablet 06/24/17 Escitalopram Oxalate [Lexapro -] 10 mg PO DAILY 08/31/17 Potassium Chloride [K-Dur -] 10 meq PO DAILY 08/31/17 Furosemide [Lasix -] 20 mg PO DAILY 11/25/17 Albuterol 2.5/Ipratropium 0.5 [Duoneb -] 1 amp NEB RQID amp 01/20/18 Aspirin [ASA -] 81 mg PO DAILY 02/01/18 Albuterol 0.083% Nebulizer Colette [Ventolin 0.083% Nebulizer Soln -] 1 amp NEB Q4H PRN #90 amp 02/05/18 Prednisone 5 mg PO DAILY #20 tablet 02/05/18 Albuterol Sulfate Inhaler - [Ventolin Hfa Inhaler -] 1 - 2 inh PO Q4H PRN Montelukast Sodium [Singulair] 5 mg PO DAILY 04/05/18 Rosuvastatin [Crestor -] 5 mg PO HS 04/05/18
[2018-04-12] MEDS ORDERED: PT OWN MED DRAWER 7, Y5N ONE ×2 (10:05→17:02)
[2018-04-12] MEDS: POTASSIUM CHLORIDE TABS 20 MEQ TABLET.ER (FP) PO SCH (10:08)
[2018-04-12] MEDS: ASPIRIN 81 MG CHEWABLE TABLETS PO SCH (10:09)
[2018-04-12] MEDS: LOSARTAN POTASSIUM 25 MG TABLET PO SCH (10:09)
[2018-04-12] MEDS: RANITIDINE HCL 150 MG TABLET (FP) PO SCH (10:09)
[2018-04-12] MEDS: ESCITALOPRAM OXALATE 10 MG TABLET (FP) PO SCH (10:09)
[2018-04-12] MEDS: ROFLUMILAST 500 MCG TABLET PO SCH (10:09)
[2018-04-12] MEDS: FUROSEMIDE 20 MG TABLET (FP) PO SCH (10:09)
--- NOTE | 2018-04-12 11:53 | PN ---
Progress Note, Physician History of Present Illness: Shortness of breath, cough productive of clear sputum, wheezing and leg swelling improve to baseline. - Current Medication List Current Medications: Active Medications Acetaminophen (Tylenol -) 650 mg PO Q6H PRN PRN Reason: PAIN LEVEL 1-5 Last Admin: 04/11/18 22:07 Dose: 650 mg Albuterol Sulfate (Ventolin 0.083% Nebulizer Soln -) 1 amp NEB Q4H PRN PRN Reason: SHORT OF BREATH/WHEEZING Albuterol Sulfate (Ventolin Hfa Inhaler -) 1 puff IH Q4H PRN PRN Reason: ASTHMA Last Admin: 04/11/18 17:53 Dose: 1 puff Albuterol/Ipratropium (Duoneb -) 1 amp NEB RQID [facility] Last Admin: 04/12/18 11:18 Dose: 1 amp Aspirin (Asa -) 81 mg PO DAILY [facility] Last Admin: 04/12/18 10:09 Dose: 81 mg Escitalopram Oxalate (Lexapro -) 10 mg PO DAILY [facility] Last Admin: 04/12/18 10:09 Dose: 10 mg Furosemide (Lasix -) 20 mg PO DAILY [facility] Last Admin: 04/12/18 10:09 Dose: 20 mg Insulin Aspart (Novolog Vial Sliding Scale -) 1 vial SQ ACHS [facility]; Protocol Last Admin: 04/12/18 11:50 Dose: Not Given Levothyroxine Sodium (Synthroid -) 100 mcg PO DAILY@0700 [facility] Last Admin: 04/12/18 06:12 Dose: 100 mcg Losartan Potassium (Cozaar -) 25 mg PO DAILY [facility] Last Admin: 04/12/18 10:09 Dose: 25 mg Methylprednisolone Sodium Succinate (Solu-Medrol -) 40 mg IVPUSH Q12H [facility] Last Admin: 04/11/18 22:05 Dose: 40 mg Montelukast Sodium (Singulair -) 5 mg PO HS [facility] Last Admin: 04/11/18 22:03 Dose: 5 mg Potassium Chloride (K-Dur -) 20 meq PO DAILY [facility] Last Admin: 04/12/18 10:08 Dose: 20 meq Ranitidine HCl (Zantac -) 150 mg PO BID [facility] Last Admin: 04/12/18 10:09 Dose: 150 mg Roflumilast (Daliresp -) 500 mcg PO DAILY [facility] Last Admin: 04/12/18 10:09 Dose: 500 mcg Rosuvastatin Calcium (Crestor -) 5 mg PO HS [facility] Last Admin: 04/11/18 22:02 Dose: 5 mg - Objective Vital Signs: Vital Signs Temperature 98.6 F 04/11/18 18:18 Pulse Rate 88 04/11/18 22:00 Respiratory Rate 22 H 04/11/18 22:00 Blood Pressure 120/71 04/11/18 22:00 O2 Sat by Pulse Oximetry (%) 99 04/12/18 07:38 Constitutional: Yes: No Distress, Calm Neck: Yes: Supple Cardiovascular: Yes: Regular Rate and Rhythm Respiratory: Yes: Regular, Diminished, On Nasal O2 Gastrointestinal: Yes: Normal Bowel Sounds, Soft Edema: No Labs: CBC, BMP 04/10/18 07:00 04/10/18 07:00 INR, PTT INR 0.93 (0.83-1.09) 04/05/18 22:20 Problem List - Problems (1) Diastolic dysfunction Code(s): I51.9 - HEART DISEASE, UNSPECIFIED (2) Hyperlipidemia Code(s): E78.5 - HYPERLIPIDEMIA, UNSPECIFIED Qualifiers: Hyperlipidemia type: pure hypercholesterolemia Qualified Code(s): E78.00 - Pure hypercholesterolemia, unspecified; E78.0 - Pure hypercholesterolemia (3) COPD exacerbation Code(s): J44.1 - CHRONIC OBSTRUCTIVE PULMONARY DISEASE W (ACUTE) EXACERBATION (4) Acute on chronic respiratory failure with hypoxia and hypercapnia Code(s): J96.21 - ACUTE AND CHRONIC RESPIRATORY FAILURE WITH HYPOXIA; J96.22 - ACUTE AND CHRONIC RESPIRATORY FAILURE WITH HYPERCAPNIA (5) Hypertension Code(s): I10 - ESSENTIAL (PRIMARY) HYPERTENSION Qualifiers: Hypertension type: essential hypertension Qualified Code(s): I10 - Essential (primary) hypertension (6) Hypothyroidism Code(s): E03.9 - HYPOTHYROIDISM, UNSPECIFIED Qualifiers: Hypothyroidism type: unspecified Qualified Code(s): E03.9 - Hypothyroidism , unspecified Assessment/Plan 06/19/2014 Echo: Normal LV size and fxn with tr TR 10/08/2015 -Myoview: No ischemia, LVEF 70% 02/25/[address]: MIld-mod centrilobular emphysema/COPD with minimal coronary calcification 1. Acute on Chronic Hypoxic and Hypercapneic Respiratory Failure 2. Acute home O2-dependent COPD Exacerbation resolving 3. LV Diastolic Dysfunction 4. CAD, angina pectoris 5. HTN 6. Hyperlipidemia 7. Hypothyroidism 8. Mild carotid atherosclerosis P: 1. Oral steroid taper with GI protection, completed empiric abx course, inhaled bronchodilators standing and PRN, Singulair, Daliresp, BiPAP, O2 to keep SpO2 88-92% 2. Continue ASA 81 qd, Lasix 20 qd, losartan 25 qd, Crestor 5 qd 3. Patient is scheduled for routine echo, carotid U/S and stress testing as outpatient 4. DVT prophylaxis 5. Patient has not used her Trilogy as there is no humidification unit, but she is in touch with DME and will provide necessary parts 6. D/c planning with f/u in office
[2018-04-12] MEDS: methylPREDNISolone NA SUCC 40 MG/1 ML VIAL IVPUSH SCH (12:27)
--- NOTE | 2018-04-12 13:05 | PN ---
Progress Note (short form) - Note Progress Note: Breathing feels better today. No CP. Cough is the same. Attached patient to her own Trilogy device with 3 L O2. Saturation by oximeter 88% to 92%. Intake & Output 04/09/18 04/10/18 04/11/18 04/12/18 23:59 23:59 23:59 23:59 Intake Total 250 1365 945 240 Balance 250 1365 945 240 Weight 159 lb 6 oz 160 lb 160 lb 6 oz Last Vital Signs Temp Pulse Resp BP Pulse Ox 98.8 F 85 20 125/70 99 04/12/18 10:00 04/12/18 10:00 04/12/18 10:00 04/12/18 10:00 04/12/18 07:38 Active Medications Acetaminophen (Tylenol -) 650 mg PO Q6H PRN PRN Reason: PAIN LEVEL 1-5 Last Admin: 04/11/18 22:07 Dose: 650 mg Albuterol Sulfate (Ventolin 0.083% Nebulizer Soln -) 1 amp NEB Q4H PRN PRN Reason: SHORT OF BREATH/WHEEZING Albuterol Sulfate (Ventolin Hfa Inhaler -) 1 puff IH Q4H PRN PRN Reason: ASTHMA Last Admin: 04/11/18 17:53 Dose: 1 puff Albuterol/Ipratropium (Duoneb -) 1 amp NEB RQID [facility] Last Admin: 04/12/18 11:18 Dose: 1 amp Aspirin (Asa -) 81 mg PO DAILY [facility] Last Admin: 04/12/18 10:09 Dose: 81 mg Escitalopram Oxalate (Lexapro -) 10 mg PO DAILY [facility] Last Admin: 04/12/18 10:09 Dose: 10 mg Furosemide (Lasix -) 20 mg PO DAILY [facility] Last Admin: 04/12/18 10:09 Dose: 20 mg Insulin Aspart (Novolog Vial Sliding Scale -) 1 vial SQ ACHS [facility]; Protocol Last Admin: 04/12/18 11:50 Dose: Not Given Levothyroxine Sodium (Synthroid -) 100 mcg PO DAILY@0700 [facility] Last Admin: 04/12/18 06:12 Dose: 100 mcg Losartan Potassium (Cozaar -) 25 mg PO DAILY [facility] Last Admin: 04/12/18 10:09 Dose: 25 mg Methylprednisolone Sodium Succinate (Solu-Medrol -) 40 mg IVPUSH Q12H [facility] Last Admin: 04/12/18 12:27 Dose: 40 mg Montelukast Sodium (Singulair -) 5 mg PO HS [facility] Last Admin: 04/11/18 22:03 Dose: 5 mg Potassium Chloride (K-Dur -) 20 meq PO DAILY [facility] Last Admin: 04/12/18 10:08 Dose: 20 meq Ranitidine HCl (Zantac -) 150 mg PO BID [facility] Last Admin: 04/12/18 10:09 Dose: 150 mg Roflumilast (Daliresp -) 500 mcg PO DAILY [facility] Last Admin: 04/12/18 10:09 Dose: 500 mcg Rosuvastatin Calcium (Crestor -) 5 mg PO HS [facility] Last Admin: 04/11/18 22:02 Dose: 5 mg Constitutional: Yes: NAD Eyes: Yes: WNL HENT: Yes: WNL Neck: Yes: WNL Cardiovascular: Yes: Regular Rate and Rhythm, S1, S2 Respiratory: Yes: No Wheeze, diminished Gastrointestinal: Yes: Normal Bowel Sounds, Soft Extremities: Yes: WNL Edema: No Laboratory Results - last 24 hr 04/11/18 04/11/18 04/12/18 16:35 21:25 05:42 POC Glucometer 206 186 164 04/12/18 11:50 POC Glucometer 100 Assessment/Plan Problem List - Problems (1) Acute on chronic respiratory failure with hypoxia and hypercapnia Code(s): J96.21 - ACUTE AND CHRONIC RESPIRATORY FAILURE WITH HYPOXIA; J96.22 - ACUTE AND CHRONIC RESPIRATORY FAILURE WITH HYPERCAPNIA (2) COPD exacerbation Code(s): J44.1 - CHRONIC OBSTRUCTIVE PULMONARY DISEASE W (ACUTE) EXACERBATION (3) Acute diastolic (congestive) heart failure Code(s): I50.31 - ACUTE DIASTOLIC (CONGESTIVE) HEART FAILURE (4) Hypertension Code(s): I10 - ESSENTIAL (PRIMARY) HYPERTENSION (5) Hypothyroidism Code(s): E03.9 - HYPOTHYROIDISM, UNSPECIFIED Qualifiers: Hypothyroidism type: unspecified Qualified Code(s): E03.9 - Hypothyroidism , unspecified Assessment/Plan Acute on Chronic Hypoxic and Hypercapneic Respiratory Failure Acute COPD Exacerbation LV Diastolic Dysfunction HTN Hypothyroidism - Prednisone taper - O2 to keep SpO2 88-92% - lasix - Advised to use her Trilogy QHS and PRN - No Pulmonary contraindication for D/C Dr Jennings
[2018-04-12 19:30] VITALS: BP 129/76; PULSE 79; TEMP 98.1
== END 2018-04-12 20:06 | disposition home health service (06) | DRG 189 ==
LOC: SUPCPDRO 20:45 → JER 20:45 → JERBED 04-06 00:40 → J5S 04-06 18:54
PROVIDERS: ADMIT Internal Medicine; ATTEND Internal Medicine
DX: J96.22 Acute and chronic respiratory failure with hypercapnia (principal); J44.1 Chronic obstructive pulmonary disease with (acute) exacerbation; I50.32 Chronic diastolic (congestive) heart failure; J96.21 Acute and chronic respiratory failure with hypoxia; E03.9 Hypothyroidism, unspecified; I11.0 Hypertensive heart disease with heart failure; Z99.81 Dependence on supplemental oxygen; G47.33 Obstructive sleep apnea (adult) (pediatric); Z87.891 Personal history of nicotine dependence; Z88.0 Allergy status to penicillin; I65.29 Occlusion and stenosis of unspecified carotid artery
CPT/HCPCS: 36415; 70450-TC; 71045-TC-FY; 80053; 81003; 82803; 82962; 83605; 83880; 84484; 85025; 85610; 85730; 87040; 87086; 93005; 93010; 94640; 94660; 97116-GP; 97161-GP; 99285-25; J1644; J7620

== ENCOUNTER 2018-04-20 15:29 | Inpatient (IN) | payer OTHER ==
[2018-04-20] MEDS ORDERED: DEXAMETHASONE SOD PHOSPHATE 10 MG/1 ML VIAL ONE (15:55)
[2018-04-20] MEDS ORDERED: ALBUTEROL SO4 0.083% IH SOL 2.5 MG/3 ML VIAL.NEB. NEB ONE (15:55)
[2018-04-20] MEDS ORDERED: IPRATROPIUM BR 0.02% 0.5 MG/2.5 ML VIAL.NEB. NEB ONE (15:56)
--- NOTE | 2018-04-20 16:11 | PDOC ---
History of Present Illness - General Chief Complaint: Shortness of Breath Stated Complaint: SOB DIFFICULTY BREATHING Time Seen by Provider: 04/20/18 15:44 History Source: Patient Exam Limitations: No Limitations - History of Present Illness Initial Comments: 04/20/18 16:10 The patient is a 57F with a PMH of COPD (requiring multiple hospitalizations and prior intubations; O2 dependant - 2L at rest, 4L while ambulating), HTN, CHF , hypothyroidism, NAVDEEP who presents to the ER with complaints of worsening SOB. The patient is with her family and EMS who provide the history. EMS states that they were called because the patient was noted to be confused. On their arrival , she had an oxygen saturation in the mid 60's with a good wave form. The patient's only complaint is shortness of breath. She denies CP, fevers, chills, nausea, vomiting. She also admits to increased swelling in her legs. Past History - Past Medical History Allergies/Adverse Reactions: Allergies Allergy/AdvReac Type Severity Reaction Status Date / Time Penicillins Allergy Severe Difficulty Verified 04/20/18 15:45 Breathing Home Medications: Ambulatory Orders Levothyroxine [Synthroid -] 100 mcg PO DAILY@0700 tablet 06/24/17 Losartan Potassium [Cozaar -] 25 mg PO DAILY #30 tablet 06/24/17 Roflumilast [Daliresp] 500 mcg PO DAILY #30 tablet 06/24/17 Escitalopram Oxalate [Lexapro -] 10 mg PO DAILY 08/31/17 Potassium Chloride [K-Dur -] 10 meq PO DAILY 08/31/17 Furosemide [Lasix -] 20 mg PO DAILY 11/25/17 Albuterol 2.5/Ipratropium 0.5 [Duoneb -] 1 amp NEB RQID amp 01/20/18 Aspirin [ASA -] 81 mg PO DAILY 02/01/18 Albuterol 0.083% Nebulizer Colette [Ventolin 0.083% Nebulizer Soln -] 1 amp NEB Q4H PRN #90 amp 02/05/18 Albuterol Sulfate Inhaler - [Ventolin HFA Inhaler -] 1 - 2 inh PO Q4H PRN Montelukast Sodium [Singulair] 5 mg PO DAILY 04/05/18 Rosuvastatin [Crestor -] 5 mg PO HS 04/05/18 Acetaminophen [Tylenol .Regular Strength -] 650 mg PO Q6H PRN tablet 04/12/18 Albuterol 2.5/Ipratropium 0.5 [Duoneb -] 1 amp NEB RQID amp 04/12/18 Prednisone 10 mg PO DAILY #30 tablet 04/12/18 Ranitidine [Zantac -] 150 mg PO BID tablet 04/12/18 Cardiac Disorders: (CHF) CVA: No COPD: Yes (O2 dependent at home) CHF: Yes DVT: No Dementia: No HTN: Yes Seizures: No Thyroid Disease: Yes (hypo) - Immunization History Immunization Up to Date: Yes - Suicide/Smoking/Psychosocial Hx Smoking History: Never smoked Have you smoked in the past 12 months: No If you are a former smoker, when did you quit?: 8 years ago Information on smoking cessation initiated: No Hx Alcohol Use: No Drug/Substance Use Hx: No Substance Use Type: None Hx Substance Use Treatment: No Review of Systems - Review of Systems Able to Perform ROS?: Yes Comments:: 04/20/18 16:52 GENERAL/CONSTITUTIONAL: No fever or chills. No weakness. HEAD, EYES, EARS, NOSE AND THROAT: No change in vision. No ear pain or discharge. No sore throat. CARDIOVASCULAR: No chest pain, palpitations, or lightheadedness. RESPIRATORY: Positive for shortness of breath. No cough, wheezing, or hemoptysis. GASTROINTESTINAL: No nausea, vomiting, diarrhea, constipation, or abdominal pain. GENITOURINARY: No dysuria, frequency, hematuria, or change in urination. MUSCULOSKELETAL: Positive for b/l leg swelling. No joint or muscle swelling or pain. No neck or back pain. SKIN: No rash or lesions. NEUROLOGIC: No headache, numbness, tingling, focal weakness, loss of consciousness, or change in strength/sensation. ENDOCRINE: No increased thirst. No abnormal weight change. HEMATOLOGIC/LYMPHATIC: No anemia, easy bleeding, or history of blood clots. ALLERGIC/IMMUNOLOGIC: No hives or skin allergy. Is the patient limited Fijian proficient: No *Physical Exam - Vital Signs Last Vital Signs Temp Pulse Resp BP Pulse Ox 97.5 F L 92 H 18 111/71 95 04/20/18 15:42 04/20/18 15:42 04/20/18 15:42 04/20/18 15:42 04/20/18 15:42 - Physical Exam Comments: 04/20/18 16:53 GENERAL: Well developed, well nourished. Awake and alert. No acute distress. HEENT: Normocephalic, atraumatic. Hearing grossly normal. Moist mucous membranes. PERRLA, EOMI. No conjunctival pallor. Sclera are non-icteric. NECK: Supple. Full ROM. No JVD. CARDIOVASCULAR: Regular rate and rhythm. No murmurs, rubs, or gallops. PULMONARY: No evidence of respiratory distress. Decreased lung sounds diffusely. ABDOMINAL: Soft. Non-tender. Non-distended. No rebound or guarding. GENITOURINARY: No CVA tenderness bilaterally. MUSCULOSKELETAL: Normal range of motion at all joints. No bony deformities or tenderness. EXTREMITIES: No cyanosis. No clubbing. No edema. No calf tenderness or swelling. SKIN: Warm and dry. Normal capillary refill. No rashes. No jaundice. NEUROLOGICAL: Alert, awake, appropriate. Cranial nerves 2-12 grossly intact. Normal speech. PSYCHIATRIC: Cooperative. Good eye contact. Appropriate mood and affect. ED Treatment Course - LABORATORY CBC & Chemistry Diagram: 04/20/18 16:00 04/20/18 16:00 - RADIOLOGY Radiology Studies Ordered: Category Date Time Status CHEST X-RAY PORTABLE* [RAD] Stat Radiology 04/20/18 15:56 Ordered Medical Decision Making - Medical Decision Making 04/20/18 16:55 The patient is a 57F with a PMH of COPD and CHF who presents to the ER with worsening SOB. Concern for CHF exacerbation vs COPD. With the patient's hypoxia upon EMS' arrival (60's with good waveform) and confusion, I am concerned for hypercarbic hypoxic respiratory failure. Pending blood gas, CXR, EKG, and labs. Will give nebulizer treatments and reassess. Pt received albuterol and dexamethason en route. 04/20/18 17:41 I have d/w Dr. 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 Will adjust bipap according to ABG. 04/20/18 18:56 ABG clotted x 2 per lab. 3rd sent. I have endorsed the pt to Dr. Taylor. I have d/w ICU resident, Dr. Barillas, for ICU consult. *DC/Admit/Observation/Transfer Diagnosis at time of Disposition: Acute and chronic respiratory failure with hypoxia, Acute on chronic respiratory failure with hypoxia and hypercapnia - Discharge Dispostion Condition at time of disposition: Critical Decision to Admit order: Yes - Referrals Referrals: Laura Navarro MD [Primary Care Provider] - - Patient Instructions - Post Discharge Activity
[2018-04-20 16:19] LABS: HEMOGLOBIN 11.9 GM/dL (10.7-15.3); MCH 30.5 pg (25.7-33.7); MCHC 31.5 g/dl (32.0-36.0); MEAN CELL VOLUME 96.8 fl (80-96); MEAN PLT VOLUME 7.9 fl (7.5-11.1); PLATELET COUNT 243 K/MM3 (134-434); RBC 3.92 M/mm3 (3.60-5.2); RDW 13.6 % (11.6-15.6); WHITE BLOOD COUNT 8.5 K/mm3 (4.0-10.0)
--- NOTE | 2018-04-20 16:37 | PDOC ---
Attending Attestation - Resident Resident Name: KeaganvitoShekhar - ED Attending Attestation I have performed the following: I have examined & evaluated the patient, The case was reviewed & discussed with the resident, I agree w/resident's findings & plan - HPI HPI: 04/20/18 20:32 57F with a PMH of COPD (requiring multiple hospitalizations and prior intubations; O2 dependant - 2L at rest, 4L while ambulating), HTN, CHF, hypothyroidism, NAVDEEP who presents to the ER with complaints of worsening SOB and lethargy. no uri sx, no f/c. no known precipitants. - Physicial Exam PE: 04/20/18 20:31 malaised appearing, somnolent; dry membranes, neck supple. diminished breath sounds, tachypneic, RRR, abdomen soft nontender. ELMORE x4, no focal neuro deficits. mild peripheral edema. normal color for ethnicity, WWP. no extrem tenderness. - Medical Decision Making 04/20/18 16:36 57F with a PMH of COPD (requiring multiple hospitalizations and prior intubations; O2 dependant - 2L at rest, 4L while ambulating), HTN, CHF, hypothyroidism, NAVDEEP who presents to the ER with complaints of worsening SOB and lethargy. DDx. CO2 narcosis, respiratory failure, COPD, infection, pneumonia, viral syndrome. Vital signs reviewed, hypoxic, confused. Prior notes reviewed, including admissions, discharges and consultations. laboratory results and imaging reviewed, basic labs and lytes wnl,reassuring. CXR_unremarkable Cardiac panel_ trop neg, bnp negative, so unlikely fluid overload or cardiomyopathy exacerbation. EKG normal sinus rhythm, no interval abnormalities, narrow QRS, ST and T wave segments and morphology normal. Nonspecific T wave abnormalities, PACs. ABG obtained, CO2 retention present, but normal PH suggesting chronic process. ED course: no acute events, maintained on bipap, remains hypoxic in low 90s on bipap, FiO2 35%. given duonebs, dexamethasone and Mg 2g for severe copd exacerbation and poor air entry. Dispo: admit to ICU for higher level of care due to AMS and acute on chronic respiratory failure. admit to Dr. Taylor. 04/20/18 20:33 Heart Score/ECG Review - ECG Impressions Normal ECG: Yes Comment:: 04/20/18 17:31 EKG normal sinus rhythm, no interval abnormalities, narrow QRS, ST and T wave segments and morphology normal. Nonspecific T wave abnormalities, PACs.
--- NOTE | 2018-04-20 16:40 | PN ---
Progress Note (short form) - Note Progress Note: PULMONARY CONSULTATION DICTATED 04/20/18 IMP ACUTE ON CHRONIC HYPOXEMIC/HYPECAPNEIC RESPIRATORY FAILURE ALTERED MENTAL STATUS SECONDARY TO ABOVE END STAGE COPD O2 DEPENDENT WITH EXACERBATION LV DIASTOLIC DYSFUNCTION HTN H/O PNEUMONIA HLD HYPOTHYROID PLAN IV STEROIDS INHALED BRONCHODILATORS BIPAP F/U ABGS DAILY WT LASIX MONITOR ZHANE MEDEIROS Problem List - Problems (1) Altered mental status Code(s): R41.82 - ALTERED MENTAL STATUS, UNSPECIFIED (2) Acute on chronic respiratory failure with hypoxia and hypercapnia Code(s): J96.21 - ACUTE AND CHRONIC RESPIRATORY FAILURE WITH HYPOXIA; J96.22 - ACUTE AND CHRONIC RESPIRATORY FAILURE WITH HYPERCAPNIA (3) CHF (congestive heart failure) Code(s): I50.9 - HEART FAILURE, UNSPECIFIED (4) COPD exacerbation Code(s): J44.1 - CHRONIC OBSTRUCTIVE PULMONARY DISEASE W (ACUTE) EXACERBATION (5) Diastolic dysfunction Code(s): I51.9 - HEART DISEASE, UNSPECIFIED (6) Hyperlipidemia Code(s): E78.5 - HYPERLIPIDEMIA, UNSPECIFIED Qualifiers: Hyperlipidemia type: pure hypercholesterolemia Qualified Code(s): E78.00 - Pure hypercholesterolemia, unspecified; E78.0 - Pure hypercholesterolemia (7) Hypertension Code(s): I10 - ESSENTIAL (PRIMARY) HYPERTENSION Qualifiers: Hypertension type: essential hypertension Qualified Code(s): I10 - Essential (primary) hypertension (8) Hypothyroidism Code(s): E03.9 - HYPOTHYROIDISM, UNSPECIFIED Qualifiers: Hypothyroidism type: unspecified Qualified Code(s): E03.9 - Hypothyroidism , unspecified (9) Shortness of breath Code(s): R06.02 - SHORTNESS OF BREATH (10) Sleep apnea Code(s): G47.30 - SLEEP APNEA, UNSPECIFIED
[2018-04-20 16:44] LABS: ALBUMIN 3.4 g/dl (3.4-5.0); ALK PHOS 71 U/L (45-117); BILIRUBIN,TOTAL 0.6 mg/dL (0.2-1); BLOOD UREA NITROGEN 12 mg/dL (7-18); CALCIUM 9.2 mg/dL (8.5-10.1); CHLORIDE 76 mmol/L (98-107); CREATININE 0.5 mg/dL (0.55-1.3); GLUCOSE,RANDOM 198 mg/dL (74-106); POTASSIUM 3.9 mmol/L (3.5-5.1); SGOT/AST 13 U/L (15-37); SGPT/ALT 25 U/L (13-61); SODIUM 139 mmol/L (136-145)
[2018-04-20 16:45] LABS: ANION GAP 18 MMOL/L (8-16); CO2 > 45 mmol/L (21-32)
[2018-04-20 16:59] LABS: PLATELET ESTIMATE ADEQUATE
[2018-04-20] MEDS ORDERED: MAGNESIUM SULF 50% (8.12 MEQ/2 ML-1 GM VIAL) IVPB ONE (18:22)
[2018-04-20] MEDS ORDERED: MAGNESIUM SULF 50% (8.12 MEQ/2 ML-1 GM VIAL) ONE (18:48)
[2018-04-20 18:57] LABS: ARTERIAL BLD GAS O2 SATURATION 90.5 % (90-98.9); ARTERIAL BLOOD GAS PO2 58.2 mmHg (80-100); ARTERIAL BLOOD GAS pH 7.39 (7.35-7.45); CARBOXYHEMOGLOBIN 1.8 gm% (0.5-2.0)
[2018-04-20 19:04] LABS: ARTERIAL BLOOD GAS BASE EXCESS 31.9 meq/l (-2-2)
[2018-04-20] MEDS ORDERED: ALBUTEROL SO4 0.083% IH SOL 2.5 MG/3 ML VIAL.NEB. NEB PRN (20:36)
[2018-04-20] MEDS ORDERED: methylPREDNISolone NA SUCC 40 MG/1 ML VIAL ONE (20:44)
[2018-04-20] MEDS: methylPREDNISolone NA SUCC 40 MG/1 ML VIAL IVPUSH SCH (21:03)
--- NOTE | 2018-04-20 23:00 | HP ---
Admitting History and Physical - Primary Care Physician PCP: Tavo Taylor - Admission Chief Complaint: Confusion. 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 History Source: Patient, Significant Other (ER doctor) - Past Medical History Cardiovascular: Yes: CHF, HTN, Hyperlipdemia Pulmonary: Yes: COPD, O2 Dependent, Sleep Apnea ...LMP: 06/03/14 Infectious Disease: Yes: Other (pneumonia) Musculoskeletal: Yes: Chronic low back pain Endocrine: Yes: Hypothyroidism - Smoking History Smoking history: Never smoked Have you smoked in the past 12 months: No If you are a former smoker, when did you quit?: 8 years ago - Alcohol/Substance Use Hx Alcohol Use: No History of Substance Use: reports: None - Social History ADL: Family Assistance History of Recent Travel: No Home Medications - Allergies Allergies/Adverse Reactions: Allergies Allergy/AdvReac Type Severity Reaction Status Date / Time Penicillins Allergy Severe Difficulty Verified 04/20/18 15:45 Breathing - Home Medications Home Medications: Ambulatory Orders Levothyroxine [Synthroid -] 100 mcg PO DAILY@0700 tablet 06/24/17 Losartan Potassium [Cozaar -] 25 mg PO DAILY #30 tablet 06/24/17 Roflumilast [Daliresp] 500 mcg PO DAILY #30 tablet 06/24/17 Escitalopram Oxalate [Lexapro -] 10 mg PO DAILY 08/31/17 Potassium Chloride [K-Dur -] 10 meq PO DAILY 08/31/17 Furosemide [Lasix -] 20 mg PO DAILY 11/25/17 Aspirin [ASA -] 81 mg PO DAILY 02/01/18 Albuterol Sulfate Inhaler - [Ventolin HFA Inhaler -] 1 - 2 inh PO Q4H PRN Montelukast Sodium [Singulair] 5 mg PO DAILY 04/05/18 Rosuvastatin [Crestor -] 5 mg PO HS 04/05/18 Prednisone 10 mg PO DAILY #30 tablet 04/12/18 Ranitidine [Zantac -] 150 mg PO BID tablet 04/12/18 Review of Systems Findings/Remarks: pt is on BIPAP - Review of Systems Constitutional: denies: Chills, Fever Eyes: denies: Blurred Vision, Double Vision HENT: denies: Ear Discharge, Nasal Congestion, Throat Pain Neck: denies: Pain on Movement, Tenderness Cardiovascular: denies: Chest Pain, Edema, Palpitations Respiratory: reports: Cough. denies: Wheezing Gastrointestinal: denies: Abdominal Pain, Diarrhea, Nausea, Vomiting Genitourinary: denies: Burning, Discharge, Dysuria Musculoskeletal: denies: Back Pain, Muscle Pain Integumentary: reports: Bruising ("from Prednisone"). denies: Blister, Rash Neurological: denies: Change in LOC, Change in Speech, Confusion Endocrine: denies: Excessive Sweating, Intolerance to Cold Hematology/Lymphatic: reports: Easily Bruised. denies: Excessive Bleeding Psychiatric: denies: Anxiety, Hallucinations Physical Examination Vital Signs: Vital Signs Temperature 97.5 F L 04/20/18 15:42 Pulse Rate 80 04/20/18 19:10 Respiratory Rate 18 04/20/18 18:04 Blood Pressure 108/69 04/20/18 19:10 O2 Sat by Pulse Oximetry (%) 96 04/20/18 22:15 Constitutional: Yes: No Distress, Calm Eyes: Yes: Conjunctiva Clear, EOM Intact HENT: Yes: Normocephalic, Other (limniited secondary to BIPAP mask) Neck: Yes: Supple. No: Lymphadenopathy, Tenderness Cardiovascular: Yes: Regular Rate and Rhythm, S1, S2 Respiratory: Yes: Regular, Accessory Muscle Use, On BiPap, Wheezes (minimal) Gastrointestinal: Yes: Normal Bowel Sounds, Soft. No: Tenderness ...Rectal Exam: Yes: Deferred Renal/: Yes: Wasserman Present. No: Bladder Distention, CVA Tenderness - Left, CVA Tenderness - Right Breast(s): Yes: Other (deferred) Musculoskeletal: No: Joint Stiffness, Joint Swelling Extremities: No: Cool, Cyanosis Edema: No Integumentary: Yes: Bruising (on forearms) Neurological: Yes: Alert, Oriented. No: Other (sensory and motor examination is groslly intact in UE, LE, face) Psychiatric: Yes: Alert, Oriented Labs: CBC, BMP 04/20/18 16:00 04/20/18 16:00 Imaging - Results Chest X-ray: Report Reviewed, Image Reviewed Problem List - Problems (1) Acute on chronic respiratory failure with hypoxia and hypercapnia Code(s): J96.21 - ACUTE AND CHRONIC RESPIRATORY FAILURE WITH HYPOXIA; J96.22 - ACUTE AND CHRONIC RESPIRATORY FAILURE WITH HYPERCAPNIA (2) Altered mental status Assessment/Plan: improved since on BIPAP Code(s): R41.82 - ALTERED MENTAL STATUS, UNSPECIFIED (3) Sleep apnea Code(s): G47.30 - SLEEP APNEA, UNSPECIFIED (4) CHF (congestive heart failure) Code(s): I50.9 - HEART FAILURE, UNSPECIFIED (5) Hyperlipidemia Code(s): E78.5 - HYPERLIPIDEMIA, UNSPECIFIED Qualifiers: Hyperlipidemia type: pure hypercholesterolemia Qualified Code(s): E78.00 - Pure hypercholesterolemia, unspecified; E78.0 - Pure hypercholesterolemia (6) Hypertension Code(s): I10 - ESSENTIAL (PRIMARY) HYPERTENSION Qualifiers: Hypertension type: essential hypertension Qualified Code(s): I10 - Essential (primary) hypertension (7) Hypothyroidism Code(s): E03.9 - HYPOTHYROIDISM, UNSPECIFIED Qualifiers: Hypothyroidism type: unspecified Qualified Code(s): E03.9 - Hypothyroidism , unspecified Assessment/Plan Admit to ICU CCM consult Pulmonary consult is appreciated, reviewed IV steroids Continue BIPAP Labs in AM, including ABG DVT prophylaxis GI prophylaxis Prognosis: reserved. Time spent for managing pt's care: over 85 minutes
[2018-04-21] MEDS: HEPARIN NA (PORCINE) 5,000 UNITS/ML 1ML VIAL SQ SCH ×3 (00:23→22:26)
[2018-04-21] MEDS: RANITIDINE HCL 150 MG TABLET (FP) PO SCH ×3 (00:23→22:27)
--- NOTE | 2018-04-21 01:14 | CONSULT ---
Consultation: REQUESTING PROVIDER: Dr. Taylor CONSULT REQUEST: We have been asked to medically evaluate this patient for COPD Exacerbation. HISTORY OF PRESENT ILLNESS: Patient is a 57 year old female with a PMHx of COPD (on 2L of 02 at rest ad 4L while ambulating) HTN, diastolic CHF, hypothyroidism, NAVDEEP, who presents today for shortness of breath that started last week and worsened in the last two days. Patient reports associated symptoms of white productive cough, increased wheezing, and worsening bilateral lower extremity edema. Patient also reports increasing lethargy and confusion, which she states happened before when her COPD is acting up. Patient also reports not using her trilogy device about one week ago as she was unable to connect the humidifier. Patient also states her prednisone has recently been decreased from 5mg daily to 10mg daily. Patient denies feeling sick or being around sick contacts. Patient also denies having her flu shot this season. Otherwise, patient denies fever, chills, nausea, vomiting, abdominal pain, chest pain, palpitations, headaches, acute vision changes, fever, night sweats, hematuria, dysuria. PCP: Dr. Taylor PMH: COPD (requiring multiple hospitalizations and prior intubations; O2 dependant - 2L at rest, 4L while ambulating), HTN, CHF, hypothyroidism, NAVDEEP SH: Quit smoking 8 years ago. Social Alcohol use. Denies drug use. Allergies: Penicillins REVIEW OF SYSTEMS: CONSTITUTIONAL: Absent: fever, chills, diaphoresis, generalized weakness, malaise, loss of appetite, weight change HEENT: Absent: rhinorrhea, nasal congestion, throat pain, throat swelling, difficulty swallowing, mouth swelling, ear pain, eye pain, visual changes CARDIOVASCULAR: peripheral edema Absent: chest pain, syncope, palpitations, irregular heart rate, lightheadedness RESPIRATORY: cough, shortness of breath, dyspnea with exertion, orthopnea, wheezing Absent: stridor, hemoptysis GASTROINTESTINAL: Absent: abdominal pain, abdominal distension, nausea, vomiting, diarrhea, constipation, melena, hematochezia GENITOURINARY: Absent: dysuria, frequency, urgency, hesitancy, hematuria, flank pain, genital pain MUSCULOSKELETAL: Absent: myalgia, arthralgia, joint swelling, back pain, neck pain SKIN: Absent: rash, itching, pallor HEMATOLOGIC/IMMUNOLOGIC: Absent: easy bleeding, easy bruising, lymphadenopathy, frequent infections ENDOCRINE: Absent: unexplained weight gain, unexplained weight loss, heat intolerance, cold intolerance NEUROLOGIC: Absent: headache, focal weakness or paresthesias, dizziness, unsteady gait, seizure, mental status changes, bladder or bowel incontinence PSYCHIATRIC: Absent: anxiety, depression, suicidal or homicidal ideation, hallucinations. PHYSICAL EXAMINATION Vital Signs - 24 hr 04/20/18 04/20/18 04/20/18 15:42 17:15 18:04 Temperature 97.5 F L Pulse Rate 92 H Pulse Rate [ 85 Apical] Respiratory 18 18 Rate Blood Pressure 111/71 Blood Pressure 113/68 [Right Arm] O2 Sat by Pulse 95 91 L 88 L Oximetry (%) 04/20/18 04/20/18 04/20/18 18:56 19:10 22:15 Temperature 98 F Pulse Rate 75 Pulse Rate [ 80 Apical] Respiratory 18 Rate Blood Pressure 119/68 Blood Pressure 108/69 [Right Arm] O2 Sat by Pulse 97 97 96 Oximetry (%) 04/20/18 04/20/18 22:20 23:27 Temperature Pulse Rate Pulse Rate [ 81 Apical] Respiratory 18 Rate Blood Pressure Blood Pressure 112/78 [Right Arm] O2 Sat by Pulse 97 97 Oximetry (%) GENERAL: Awake, alert, and fully oriented. Unable to speak in full sentences HEAD: Normal with no signs of trauma. EYES: Pupils equal, round and reactive to light, extraocular movements intact, sclera anicteric, conjunctiva clear. No lid lag. EARS, NOSE, THROAT:Oropharynx clear without exudates. Moist mucous membranes. NECK: Normal range of motion, supple without lymphadenopathy, JVD, or masses. LUNGS: Bilateral inspiratory and expiratory wheezing with decreased breath sounds and accessory muscle use. On BIPAP HEART: Regular rate and rhythm, normal S1 and S2 without murmur, rub or gallop. ABDOMEN: Soft, obese, nontender, not distended, normoactive bowel sounds, no guarding, no rebound, no masses. No hepatomegaly or splenomegaly. MUSCULOSKELETAL: No CVA tenderness. UPPER EXTREMITIES: No peripheral edema. LOWER EXTREMITIES: 2+ pitting edema NEUROLOGICAL: Cranial nerves II-XII intact. Sensory intact with muscle strength 5/5 bilterally PSYCHIATRIC: Cooperative but confused. SKIN: Warm, dry, normal turgor, no rashes or lesions noted. Laboratory Results - last 24 hr 04/20/18 04/20/18 04/20/18 16:00 16:00 16:00 WBC 8.5 RBC 3.92 Hgb 11.9 Hct 38.0 MCV 96.8 H MCH 30.5 MCHC 31.5 L RDW 13.6 Plt Count 243 D MPV 7.9 D Absolute Neuts (auto) 8.1 H Total Counted 100 Neutrophils % No Result Required. Neutrophils % (Manual) 96.0 H Band Neutrophils % 1.0 Lymphocytes % No Result Required. Monocytes % (Manual) 3 L Nucleated RBC % 0 Platelet Estimate Adequate Basophilic Stippling Rare Anticoagulation Therapy Puncture Site Patient Temperature ABG pH ABG pCO2 at Pt Temp ABG pO2 at Pt Temp ABG HCO3 ABG O2 Sat (Measured) ABG O2 Content ABG Base Excess [place] Test Carboxyhemoglobin Methemoglobin O2 Delivery Device Oxygen Flow Rate Vent Mode Vent Rate Mechanical Rate PEEP Pressure Support Vent Sodium 139 Potassium 3.9 Chloride 76 L Carbon Dioxide > 45 H Anion Gap 18 H BUN 12 Creatinine 0.5 L Creat Clearance w eGFR > 60 Random Glucose 198 H Calcium 9.2 Total Bilirubin 0.6 AST 13 L ALT 25 Alkaline Phosphatase 71 Creatine Kinase 28 Troponin I < 0.02 B-Natriuretic Peptide 156.2 H Total Protein 6.0 L Albumin 3.4 04/20/18 18:50 WBC RBC Hgb Hct MCV MCH MCHC RDW Plt Count MPV Absolute Neuts (auto) Total Counted Neutrophils % Neutrophils % (Manual) Band Neutrophils % Lymphocytes % Monocytes % (Manual) Nucleated RBC % Platelet Estimate Basophilic Stippling Anticoagulation Therapy No Result Required. Puncture Site No Result Required. Patient Temperature ABG pH 7.39 ABG pCO2 at Pt Temp 107.0 H* ABG pO2 at Pt Temp 58.2 L D ABG HCO3 63.4 H* ABG O2 Sat (Measured) 90.5 ABG O2 Content 14.9 L ABG Base Excess 31.9 H* [place] Test No Result Required. Carboxyhemoglobin 1.8 Methemoglobin 0.2 L O2 Delivery Device No Result Required. Oxygen Flow Rate No Result Required. Vent Mode No Result Required. Vent Rate No Result Required. Mechanical Rate No Result Required. PEEP Pressure Support Vent No Result Required. Sodium Potassium Chloride Carbon Dioxide Anion Gap BUN Creatinine Creat Clearance w eGFR Random Glucose Calcium Total Bilirubin AST ALT Alkaline Phosphatase Creatine Kinase Troponin I B-Natriuretic Peptide Total Protein Albumin Active Medications Generic Name Dose Route Start Last Admin Trade Name Freq PRN Reason Stop Dose Admin Albuterol Sulfate 1 amp 04/20/18 20:36 Ventolin 0.083% Nebulizer Soln - NEB Q4H PRN SHORT OF BREATH/WHEEZING Albuterol/Ipratropium 1 amp 04/21/18 08:00 Duoneb - NEB RQID [facility] Aspirin 81 mg 04/21/18 10:00 Asa - PO DAILY [facility] Escitalopram Oxalate 10 mg 04/21/18 10:00 Lexapro - PO DAILY [facility] Furosemide 20 mg 04/21/18 10:00 Lasix - PO DAILY [facility] Heparin Sodium (Porcine) 5,000 unit 04/20/18 23:30 04/21/18 00:23 Heparin - SQ 5,000 unit BID [facility] Administration Influenza Virus Vaccine Quadrival 60 mcg 04/21/18 10:00 Flulaval Quad [id number] IM 04/21/18 10:01 .ONCE ONE Levothyroxine Sodium 100 mcg 04/21/18 07:00 Synthroid - PO DAILY@0700 [facility] Losartan Potassium 25 mg 04/21/18 10:00 Cozaar - PO DAILY [facility] Methylprednisolone Sodium Succinate 40 mg 04/20/18 21:00 04/20/18 21:03 Solu-Medrol - IVPUSH 40 mg Q6H-IV [facility] Administration Montelukast Sodium 5 mg 04/21/18 10:00 Singulair - PO DAILY [facility] Potassium Chloride 10 meq 04/21/18 10:00 K-Dur - PO DAILY [facility] Ranitidine HCl 150 mg 04/20/18 23:30 04/21/18 00:23 Zantac - PO 150 mg BID [facility] Administration Roflumilast 500 mcg 04/21/18 10:00 Daliresp - PO DAILY [facility] Rosuvastatin Calcium 5 mg 04/21/18 22:00 Crestor - PO HS [facility] IMAGES: Chest X-Ray (04/20/18): No acute lung disease is present. ASSESSMENT/PLAN: Patient is a 57 year old female who presented for dyspnea, wheezing with cough, bilateral pitting edema and was found to be in COPD exacerbation. Patient admitted for further monitoring and management. PULMONOLOGY #Acute on Chronic hypoxic hypercapneic respiatory Failure -Patient ABG revealed C02 of 107 with PH 7.39 -Accessory muscle use with initial 02 saturation in the 80's -Patient currently tolerating BIPAP -Continue IV solu-medrol 40mg IV Q6H -Continue inhaled bronchodilators standing and PRN -Continue home Lasix 20mg PO daily -Monitor urine output and creatinine -Continue Singulair 5mg daily -Continue Daliresp 500mcg daily -Maintain 02 saturation between 88-92% #NAVDEEP -Continue BIPAP CARDIOLOGY #Diastolic CHF -Continue home medication Lasix 20mg PO daily -Strict I&O's -Monitor Creatinine #CAD -Continue ASA 81mg daily #HTN -Continue home medication Losartan 25mg daily -Continue to monitor BP #HLD -Continue crestor 5mg HS PSYCH #Depression/Anxiety -Continue Lexapro 10mg daily F/E/N -On no fluids -Hypokalemia. Replete with KCl and repeat -NPO until off BIPAP Prophylaxis -Heparin 5000 units Q8H for DVT -Zantac 150mg BID for GI Disposition -Full code -On BIPAP with low thresh hold for intubation. Repeat ABG Dispo: We will continue to follow the patient. Thank you for this consultative opportunity. Flora Barillas [id number] Visit type - Emergency Visit Emergency Visit: Yes ED Registration Date: 04/20/18 Care time: The patient presented to the Emergency Department on the above date and was hospitalized for further evaluation of their emergent condition. - New Patient This patient is new to me today: Yes Date on this admission: 04/20/18 - Critical Care Critical Care patient: Yes Total Critical Care Time (in minutes): 45 Critical Care Statement: The care of this patient involved high complexity decision making to prevent further life threatening deterioration of the patient 's condition and/or to evaluate & treat vital organ system(s) failure or risk of failure.
[2018-04-21] MEDS: methylPREDNISolone NA SUCC 40 MG/1 ML VIAL IVPUSH SCH ×4 (03:00→22:27)
[2018-04-21 03:19] LABS: ARTERIAL BLOOD GAS PCO2 98.7 mmHg (35-45); ARTERIAL BLOOD GAS PO2 81.2 mmHg (80-100); ARTERIAL BLOOD GAS pH 7.41 (7.35-7.45)
[2018-04-21 03:20] LABS: ARTERIAL BLD GAS O2 SATURATION 96.2 % (90-98.9)
[2018-04-21 03:21] LABS: ALLENS TEST POSITIVE
[2018-04-21 03:25] LABS: ARTERIAL BLOOD GAS BASE EXCESS 30.3 meq/l (-2-2)
[2018-04-21 05:57] LABS: HEMATOCRIT 36.9 % (32.4-45.2); HEMOGLOBIN 11.5 GM/dL (10.7-15.3); MCH 29.9 pg (25.7-33.7); MCHC 31.2 g/dl (32.0-36.0); MEAN PLT VOLUME 8.1 fl (7.5-11.1); PLATELET COUNT 204 K/MM3 (134-434); RBC 3.84 M/mm3 (3.60-5.2); RDW 13.4 % (11.6-15.6); WHITE BLOOD COUNT 6.1 K/mm3 (4.0-10.0)
[2018-04-21] MEDS: LEVOTHYROXINE NA 100 MCG TABLET (FP) PO SCH (06:44)
--- NOTE | 2018-04-21 08:28 | PN ---
Progress Note, Physician - Current Medication List Current Medications: Active Medications Albuterol Sulfate (Ventolin 0.083% Nebulizer Soln -) 1 amp NEB Q4H PRN PRN Reason: SHORT OF BREATH/WHEEZING Albuterol/Ipratropium (Duoneb -) 1 amp NEB RQID [facility] Aspirin (Asa -) 81 mg PO DAILY [facility] Escitalopram Oxalate (Lexapro -) 10 mg PO DAILY [facility] Furosemide (Lasix -) 20 mg PO DAILY [facility] Heparin Sodium (Porcine) (Heparin -) 5,000 unit SQ BID [facility] Last Admin: 04/21/18 00:23 Dose: 5,000 unit Influenza Virus Vaccine Quadrival (Flulaval Quad [id number]) 60 mcg IM .ONCE ONE Stop: 04/21/18 10:01 Levothyroxine Sodium (Synthroid -) 100 mcg PO DAILY@0700 [facility] Last Admin: 04/21/18 06:44 Dose: 100 mcg Losartan Potassium (Cozaar -) 25 mg PO DAILY [facility] Methylprednisolone Sodium Succinate (Solu-Medrol -) 40 mg IVPUSH Q6H-IV [facility] Last Admin: 04/21/18 03:00 Dose: 40 mg Montelukast Sodium (Singulair -) 5 mg PO DAILY [facility] Potassium Chloride (K-Dur -) 10 meq PO DAILY [facility] Ranitidine HCl (Zantac -) 150 mg PO BID [facility] Last Admin: 04/21/18 00:23 Dose: 150 mg Roflumilast (Daliresp -) 500 mcg PO DAILY [facility] Rosuvastatin Calcium (Crestor -) 5 mg PO HS [facility] - Objective Vital Signs: Vital Signs Temperature 98.3 F 04/21/18 03:55 Pulse Rate 74 04/21/18 05:00 Respiratory Rate 27 H 04/21/18 05:00 Blood Pressure 122/72 04/21/18 05:00 O2 Sat by Pulse Oximetry (%) 97 04/21/18 04:41 Labs: CBC, BMP 04/21/18 05:30
[2018-04-21 09:45] LABS: GLUCOSE,RANDOM 154 mg/dL (74-106)
[2018-04-21 09:46] LABS: ANION GAP -2 MMOL/L (8-16); BLOOD UREA NITROGEN 14 mg/dL (7-18); CALCIUM 9.1 mg/dL (8.5-10.1); CHLORIDE 78 mmol/L (98-107); CO2 63 mmol/L (21-32); CREATININE 0.5 mg/dL (0.55-1.3); POTASSIUM 3.6 mmol/L (3.5-5.1); SODIUM 139 mmol/L (136-145)
[2018-04-21] MEDS ORDERED: PT OWN MED DRAWER 7, Y5N ONE ×5 (09:56→22:37)
[2018-04-21] MEDS: MONTELUKAST NA 5 MG TAB.CHEW PO SCH ×2 (10:00→12:35)
[2018-04-21] MEDS ORDERED: FLU VACCINE QUAD 60 MCG/0.5 ML (MDV 18-19) IM ONE (10:00)
[2018-04-21] MEDS ORDERED: CEFTRIAXONE 1 GM in DEXTROSE 5%-WATER - 100 ML IVPB SCH (10:00)
[2018-04-21] MEDS: LOSARTAN POTASSIUM 25 MG TABLET PO SCH (10:01)
[2018-04-21] MEDS: ROFLUMILAST 500 MCG TABLET PO SCH (10:01)
[2018-04-21] MEDS: ESCITALOPRAM OXALATE 10 MG TABLET (FP) PO SCH (10:01)
[2018-04-21] MEDS: ASPIRIN 81 MG CHEWABLE TABLETS PO SCH (10:01)
[2018-04-21] MEDS: ALBUTEROL SO4 2.5/IPRATROPIUM 0.5 INH SOL 3 ML VIAL.NEB. NEB SCH ×4 (10:22→20:30)
[2018-04-21] MEDS: POTASSIUM CHLORIDE TABS 20 MEQ TABLET.ER (FP) PO SCH (10:44)
[2018-04-21] MEDS: FUROSEMIDE 40 MG TABLET (FP) PO SCH (10:44)
--- NOTE | 2018-04-21 11:26 | EKG ---
Test Reason : Blood Pressure : / mmHG Vent. Rate : 089 BPM Atrial Rate : 089 BPM P-R Int : 000 ms QRS Dur : 076 ms QT Int : 360 ms P-R-T Axes : 000 084 080 degrees QTc Int : 438 ms SINUS RHYTHM WITH PREMATURE ATRIAL COMPLEXES OTHERWISE NORMAL ECG WHEN COMPARED WITH ECG OF 05-APR-2018 23:02, PREMATURE ATRIAL COMPLEXES ARE NOW PRESENT Confirmed by ASHLYN OLIVO, NEIL ([id number]) on 04/21/2018 11:26:15 AM Referred By: Confirmed By:NEIL GOLDBERG MD
[2018-04-21] MEDS ORDERED: AZITHROMYCIN 500 MG TABLET PO ONE (12:00)
--- NOTE | 2018-04-21 12:55 | PN ---
Teaching Attending Note Name of Resident: Tita Esquivel ATTENDING PHYSICIAN STATEMENT I saw and evaluated the patient. I reviewed the resident's note and discussed the case with the resident. I agree with the resident's findings and plan as documented. SUBJECTIVE: Pt seen and examined in the ICU. States breathing is improved, close to baseline. Used BiPAP overnight. No fevers recorded. OBJECTIVE: Vital Signs Period Temp Pulse Resp BP Sys/Domínguez Pulse Ox Last 24 Hr 97.5 F-98.3 F 74-96 18-27 108-134/63-84 88-98 Intake & Output 04/18/18 04/19/18 04/20/18 04/21/18 23:59 23:59 23:59 23:59 Intake Total 150 Output Total 700 Balance -550 Weight 60.498 kg 60.498 kg Gen: mildly tachypneic at rest Heart: RRR Lung: scattered rhonchi, wheezes Abd: soft, nontender Ext: no edema CBC, BMP 04/21/18 05:30 04/21/18 06:00 Active Medications Albuterol Sulfate (Ventolin 0.083% Nebulizer Soln -) 1 amp NEB Q4H PRN PRN Reason: SHORT OF BREATH/WHEEZING Albuterol/Ipratropium (Duoneb -) 1 amp NEB RQID [facility] Last Admin: 04/21/18 10:22 Dose: 1 amp Aspirin (Asa -) 81 mg PO DAILY [facility] Last Admin: 04/21/18 10:01 Dose: 81 mg Azithromycin (Zithromax -) 250 mg PO DAILY [facility] Stop: 04/25/18 10:00 Escitalopram Oxalate (Lexapro -) 10 mg PO DAILY [facility] Last Admin: 04/21/18 10:01 Dose: 10 mg Furosemide (Lasix -) 20 mg PO DAILY [facility] Last Admin: 04/21/18 10:44 Dose: 20 mg Heparin Sodium (Porcine) (Heparin -) 5,000 unit SQ BID [facility] Last Admin: 04/21/18 10:00 Dose: 5,000 unit Levothyroxine Sodium (Synthroid -) 100 mcg PO DAILY@0700 [facility] Last Admin: 04/21/18 06:44 Dose: 100 mcg Losartan Potassium (Cozaar -) 25 mg PO DAILY [facility] Last Admin: 04/21/18 10:01 Dose: 25 mg Methylprednisolone Sodium Succinate (Solu-Medrol -) 40 mg IVPUSH Q6H-IV [facility] Last Admin: 04/21/18 08:54 Dose: 40 mg Montelukast Sodium (Singulair -) 5 mg PO DAILY [facility] Last Admin: 04/21/18 12:35 Dose: Not Given Potassium Chloride (K-Dur -) 10 meq PO DAILY [facility] Last Admin: 04/21/18 10:44 Dose: 10 meq Ranitidine HCl (Zantac -) 150 mg PO BID [facility] Last Admin: 04/21/18 10:00 Dose: 150 mg Roflumilast (Daliresp -) 500 mcg PO DAILY [facility] Last Admin: 04/21/18 10:01 Dose: 500 mcg Rosuvastatin Calcium (Crestor -) 5 mg PO [facility] ASSESSMENT AND PLAN: Acute on Chronic Hypoxic and Hypercapneic Respiratory Failuer Acute COPD Exacerbation Altered Mental Status from above LV Diastolic Dysfunction HTN Hyperlipidemia Hypothyroidism - continue medrol - inhaled bronchodilators - O2 to keep SpO2 88-92% - BiPAP at night and PRN during day - daliresp - continue lasix - can monitor on floor with pulse oximetry monitoring
--- NOTE | 2018-04-21 13:21 | PN ---
Progress Note, Physician History of Present Illness: Pt w/o SOB, CP, palpitations, abd pain Pt is on O2 supplementation via NC, comfortable, alert and oriented. I reviewed with pt again her HPI than made pt to come to ER yesterday, no new findings as possible cause current exacerbation. Pt was seen and examined in ICU - Current Medication List Current Medications: Active Medications Albuterol Sulfate (Ventolin 0.083% Nebulizer Soln -) 1 amp NEB Q4H PRN PRN Reason: SHORT OF BREATH/WHEEZING Albuterol/Ipratropium (Duoneb -) 1 amp NEB RQID [facility] Last Admin: 04/21/18 10:22 Dose: 1 amp Aspirin (Asa -) 81 mg PO DAILY [facility] Last Admin: 04/21/18 10:01 Dose: 81 mg Azithromycin (Zithromax -) 250 mg PO DAILY [facility] Stop: 04/25/18 10:00 Escitalopram Oxalate (Lexapro -) 10 mg PO DAILY [facility] Last Admin: 04/21/18 10:01 Dose: 10 mg Furosemide (Lasix -) 20 mg PO DAILY [facility] Last Admin: 04/21/18 10:44 Dose: 20 mg Heparin Sodium (Porcine) (Heparin -) 5,000 unit SQ BID [facility] Last Admin: 04/21/18 10:00 Dose: 5,000 unit Levothyroxine Sodium (Synthroid -) 100 mcg PO DAILY@0700 [facility] Last Admin: 04/21/18 06:44 Dose: 100 mcg Losartan Potassium (Cozaar -) 25 mg PO DAILY [facility] Last Admin: 04/21/18 10:01 Dose: 25 mg Methylprednisolone Sodium Succinate (Solu-Medrol -) 40 mg IVPUSH Q6H-IV [facility] Last Admin: 04/21/18 08:54 Dose: 40 mg Montelukast Sodium (Singulair -) 5 mg PO DAILY [facility] Last Admin: 04/21/18 12:35 Dose: Not Given Potassium Chloride (K-Dur -) 10 meq PO DAILY [facility] Last Admin: 04/21/18 10:44 Dose: 10 meq Ranitidine HCl (Zantac -) 150 mg PO BID [facility] Last Admin: 04/21/18 10:00 Dose: 150 mg Roflumilast (Daliresp -) 500 mcg PO DAILY [facility] Last Admin: 04/21/18 10:01 Dose: 500 mcg Rosuvastatin Calcium (Crestor -) 5 mg PO HS [facility] - Objective Vital Signs: Vital Signs Temperature 98.2 F 04/21/18 10:00 Pulse Rate 96 H 04/21/18 12:00 Respiratory Rate 20 04/21/18 12:00 Blood Pressure 112/84 04/21/18 12:00 O2 Sat by Pulse Oximetry (%) 97 04/21/18 09:00 Constitutional: Yes: No Distress, Calm Cardiovascular: Yes: Regular Rate and Rhythm, S1, S2 Respiratory: Yes: Regular, Rhonchi, Wheezes (inspiratory and expiratory) Gastrointestinal: Yes: Normal Bowel Sounds, Soft. No: Hepatomegaly, Palpable Mass, Tenderness Edema: No Neurological: Yes: Alert, Oriented. No: Confusion Labs: CBC, BMP 04/21/18 05:30 04/21/18 06:00 Problem List - Problems (1) Acute on chronic respiratory failure with hypoxia and hypercapnia Code(s): J96.21 - ACUTE AND CHRONIC RESPIRATORY FAILURE WITH HYPOXIA; J96.22 - ACUTE AND CHRONIC RESPIRATORY FAILURE WITH HYPERCAPNIA (2) Altered mental status Code(s): R41.82 - ALTERED MENTAL STATUS, UNSPECIFIED (3) Sleep apnea Code(s): G47.30 - SLEEP APNEA, UNSPECIFIED (4) CHF (congestive heart failure) Code(s): I50.9 - HEART FAILURE, UNSPECIFIED (5) Hyperlipidemia Code(s): E78.5 - HYPERLIPIDEMIA, UNSPECIFIED Qualifiers: Hyperlipidemia type: pure hypercholesterolemia Qualified Code(s): E78.00 - Pure hypercholesterolemia, unspecified; E78.0 - Pure hypercholesterolemia (6) Hypertension Code(s): I10 - ESSENTIAL (PRIMARY) HYPERTENSION Qualifiers: Hypertension type: essential hypertension Qualified Code(s): I10 - Essential (primary) hypertension (7) Hypothyroidism Code(s): E03.9 - HYPOTHYROIDISM, UNSPECIFIED Qualifiers: Hypothyroidism type: unspecified Qualified Code(s): E03.9 - Hypothyroidism , unspecified Assessment/Plan Admit to ICU CCM consult is appreciated; case was d/w Dr. Mckinley; to cont current Rx. Pulmonary consult is appreciated. IV steroids Continue BIPAP at night and PRN during the day Labs in AM. DVT prophylaxis GI prophylaxis Prognosis: improved. Time spent for managing pt's care: over 40 minutes
--- NOTE | 2018-04-21 14:30 | PN ---
Physical Exam: SUBJECTIVE: Patient seen and examined at bedside this morning. Patient was weaned off bipap this morning and put on 40% venti mask, saturating well at 96% . Patient was also able to eat breakfast at 4L NC. Patient denies chest pain, palpitations, abdominal pain, diarrhea, constipation. OBJECTIVE: Vital Signs Period Temp Pulse Resp BP Sys/Domínguez Pulse Ox Last 24 Hr 97.5 F-98.3 F 74-96 18-27 108-134/63-84 88-98 GENERAL: The patient is awake, alert, and fully oriented, on 4L NC. HEAD: Normal with no signs of trauma. EYES: PERRLA, EOMI, sclera anicteric, conjunctiva clear. No ptosis. ENT: Ears normal, nares patent, oropharynx clear without exudates, moist mucous membranes. NECK: Trachea midline, full range of motion, supple. LUNGS: +scattered wheezes and rhonchi bilaterally HEART: Regular rate and rhythm, S1, S2 without murmur, rub or gallop. ABDOMEN: Soft, nontender, nondistended, normoactive bowel sounds. EXTREMITIES: 2+ pulses, warm, well-perfused, +1 pitting edema. NEUROLOGICAL: Cranial nerves II through XII grossly intact. Normal speech, gait not observed. PSYCH: Normal mood, normal affect. SKIN: Warm, dry, normal turgor, no rashes or lesions noted Laboratory Results - last 24 hr 04/20/18 04/20/18 04/20/18 16:00 16:00 16:00 WBC 8.5 RBC 3.92 Hgb 11.9 Hct 38.0 MCV 96.8 H MCH 30.5 MCHC 31.5 L RDW 13.6 Plt Count 243 D MPV 7.9 D Absolute Neuts (auto) 8.1 H Total Counted 100 Neutrophils % No Result Required. Neutrophils % (Manual) 96.0 H Band Neutrophils % 1.0 Lymphocytes % No Result Required. Monocytes % (Manual) 3 L Nucleated RBC % 0 Platelet Estimate Adequate Basophilic Stippling Rare Anticoagulation Therapy Puncture Site Patient Temperature ABG pH ABG pCO2 at Pt Temp ABG pO2 at Pt Temp ABG HCO3 ABG O2 Sat (Measured) ABG O2 Content ABG Base Excess [place] Test Carboxyhemoglobin Methemoglobin O2 Delivery Device Oxygen Flow Rate Vent Mode Vent Rate Mechanical Rate PEEP Pressure Support Vent Sodium 139 Potassium 3.9 Chloride 76 L Carbon Dioxide > 45 H Anion Gap 18 H BUN 12 Creatinine 0.5 L Creat Clearance w eGFR > 60 Random Glucose 198 H Calcium 9.2 Total Bilirubin 0.6 AST 13 L ALT 25 Alkaline Phosphatase 71 Creatine Kinase 28 Troponin I < 0.02 B-Natriuretic Peptide 156.2 H Total Protein 6.0 L Albumin 3.4 04/20/18 04/20/18 04/20/18 17:01 18:20 18:20 WBC RBC Hgb Hct MCV MCH MCHC RDW Plt Count MPV Absolute Neuts (auto) Total Counted Neutrophils % Neutrophils % (Manual) Band Neutrophils % Lymphocytes % Monocytes % (Manual) Nucleated RBC % Platelet Estimate Basophilic Stippling Anticoagulation Therapy Cancelled Cancelled Cancelled Puncture Site Cancelled Cancelled Cancelled Patient Temperature Cancelled Cancelled Cancelled ABG pH Cancelled Cancelled Cancelled ABG pCO2 at Pt Temp Cancelled Cancelled Cancelled ABG pO2 at Pt Temp Cancelled Cancelled Cancelled ABG HCO3 Cancelled Cancelled Cancelled ABG O2 Sat (Measured) Cancelled Cancelled Cancelled ABG O2 Content Cancelled Cancelled Cancelled ABG Base Excess Cancelled Cancelled Cancelled [place] Test Cancelled Cancelled Cancelled Carboxyhemoglobin Cancelled Cancelled Cancelled Methemoglobin Cancelled Cancelled Cancelled O2 Delivery Device Cancelled Cancelled Cancelled Oxygen Flow Rate Cancelled Cancelled Cancelled Vent Mode Cancelled Cancelled Cancelled Vent Rate Cancelled Cancelled Cancelled Mechanical Rate Cancelled Cancelled Cancelled PEEP Cancelled Cancelled Cancelled Pressure Support Vent Cancelled Cancelled Cancelled Sodium Potassium Chloride Carbon Dioxide Anion Gap BUN Creatinine Creat Clearance w eGFR Random Glucose Calcium Total Bilirubin AST ALT Alkaline Phosphatase Creatine Kinase Troponin I B-Natriuretic Peptide Total Protein Albumin 04/20/18 04/21/18 04/21/18 18:50 02:50 05:30 WBC 6.1 RBC 3.84 Hgb 11.5 Hct 36.9 MCV 96.0 MCH 29.9 MCHC 31.2 L RDW 13.4 Plt Count 204 MPV 8.1 Absolute Neuts (auto) Total Counted Neutrophils % Neutrophils % (Manual) Band Neutrophils % Lymphocytes % Monocytes % (Manual) Nucleated RBC % Platelet Estimate Basophilic Stippling Anticoagulation Therapy No Result Required. No Result Required. Puncture Site No Result Required. Right radial Patient Temperature ABG pH 7.39 7.41 ABG pCO2 at Pt Temp 107.0 H* 98.7 H* ABG pO2 at Pt Temp 58.2 L D 81.2 D ABG HCO3 63.4 H* 61.1 H* ABG O2 Sat (Measured) 90.5 96.2 ABG O2 Content 14.9 L 15.4 ABG Base Excess 31.9 H* 30.3 H* [place] Test No Result Required. Positive Carboxyhemoglobin 1.8 Methemoglobin 0.2 L O2 Delivery Device No Result Required. Bipap Oxygen Flow Rate No Result Required. 45% Vent Mode No Result Required. No Result Required. Vent Rate No Result Required. No Result Required. Mechanical Rate No Result Required. No Result Required. PEEP Pressure Support Vent No Result Required. No Result Required. Sodium Potassium Chloride Carbon Dioxide Anion Gap BUN Creatinine Creat Clearance w eGFR Random Glucose Calcium Total Bilirubin AST ALT Alkaline Phosphatase Creatine Kinase Troponin I B-Natriuretic Peptide Total Protein Albumin 04/21/18 04/21/18 05:30 06:00 WBC RBC Hgb Hct MCV MCH MCHC RDW Plt Count MPV Absolute Neuts (auto) Total Counted Neutrophils % Neutrophils % (Manual) Band Neutrophils % Lymphocytes % Monocytes % (Manual) Nucleated RBC % Platelet Estimate Basophilic Stippling Anticoagulation Therapy Puncture Site Patient Temperature ABG pH ABG pCO2 at Pt Temp ABG pO2 at Pt Temp ABG HCO3 ABG O2 Sat (Measured) ABG O2 Content ABG Base Excess [place] Test Carboxyhemoglobin Methemoglobin O2 Delivery Device Oxygen Flow Rate Vent Mode Vent Rate Mechanical Rate PEEP Pressure Support Vent Sodium Cancelled 139 Potassium Cancelled 3.6 Chloride Cancelled 78 L Carbon Dioxide Cancelled 63 H Anion Gap Cancelled -2 L BUN Cancelled 14 Creatinine Cancelled 0.5 L Creat Clearance w eGFR Cancelled > 60 Random Glucose Cancelled 154 H Calcium Cancelled 9.1 Total Bilirubin Cancelled AST Cancelled ALT Cancelled Alkaline Phosphatase Cancelled Creatine Kinase Troponin I B-Natriuretic Peptide Total Protein Cancelled Albumin Cancelled Active Medications Generic Name Dose Route Start Last Admin Trade Name Freq PRN Reason Stop Dose Admin Albuterol Sulfate 1 amp 04/20/18 20:36 Ventolin 0.083% Nebulizer Soln - NEB Q4H PRN SHORT OF BREATH/WHEEZING Albuterol/Ipratropium 1 amp 04/21/18 08:00 04/21/18 10:22 Duoneb - NEB 1 amp RQID [facility] Administration Aspirin 81 mg 04/21/18 10:00 04/21/18 10:01 Asa - PO 81 mg DAILY [facility] Administration Azithromycin 250 mg 04/22/18 10:00 Zithromax - PO 04/25/18 10:00 DAILY [facility] Escitalopram Oxalate 10 mg 04/21/18 10:00 04/21/18 10:01 Lexapro - PO 10 mg DAILY [facility] Administration Furosemide 20 mg 04/21/18 10:00 04/21/18 10:44 Lasix - PO 20 mg DAILY [facility] Administration Heparin Sodium (Porcine) 5,000 unit 04/20/18 23:30 04/21/18 10:00 Heparin - SQ 5,000 unit BID [facility] Administration Levothyroxine Sodium 100 mcg 04/21/18 07:00 04/21/18 06:44 Synthroid - PO 100 mcg DAILY@0700 [facility] Administration Losartan Potassium 25 mg 04/21/18 10:00 04/21/18 10:01 Cozaar - PO 25 mg DAILY [facility] Administration Methylprednisolone Sodium Succinate 40 mg 04/20/18 21:00 04/21/18 08:54 Solu-Medrol - IVPUSH 40 mg Q6H-IV [facility] Administration Montelukast Sodium 5 mg 04/21/18 10:00 04/21/18 12:35 Singulair - PO Not Given DAILY [facility] Potassium Chloride 10 meq 04/21/18 10:00 04/21/18 10:44 K-Dur - PO 10 meq DAILY [facility] Administration Ranitidine HCl 150 mg 04/20/18 23:30 04/21/18 10:00 Zantac - PO 150 mg BID [facility] Administration Roflumilast 500 mcg 04/21/18 10:00 04/21/18 10:01 Daliresp - PO 500 mcg DAILY [facility] Administration Rosuvastatin Calcium 5 mg 04/21/18 22:00 Crestor - PO HS [facility]END[facility]ALE TO [facility] ASSESSMENT/PLAN: Patient is a 57 year old female who presented for dyspnea, wheezing with cough, bilateral pitting edema and was found to be in COPD exacerbation. Patient admitted for further monitoring and management. #Pulmonology 1)Acute on Chronic hypoxic and hypercapneic Respiratory Failure -CXR: No significant interval change or acute lung disease present. -ABG on admission C02 of 107 with PH 7.39 --> repeat ABG: ph 7.41, pCO2 98.7. pO2 81.2, HCO3 61.1 -Weaned off bipap this morning. On 40% venti mask, with O2 sat 95% -Continue IV solu-medrol 40mg IV Q6H -Continue Duoneb QID and Albuterol inhaler PRN -Continue Singulair 5mg daily -Continue Daliresp 500mcg daily -Can monitor on floor with pulse oximtery -Maintain 02 saturation between 88-92% 2)NAVDEEP -Continue BIPAP at night, and PRN during the day #Cardiology 1)Diastolic CHF -Continue home medication Lasix 20mg PO daily -Strict I&O's -Monitor Creatinine 2)CAD -Continue ASA 81mg daily and Rosuvastatin 5mg daily 3)HTN -Continue home medication Losartan 25mg daily -Continue to monitor BP 4)HLD -Continue crestor 5mg HS #Endocrinology 1) Hypothyroidism -Continue home medication Synthroid 100mcg #Psychiatry 1)Depression/Anxiety -Continue Lexapro 10mg daily #FEN -Not on any standing fluids -Hypokalemia. Replete with KCl and repeat -Sodium controlled/low cholesterol diet #Prophylaxis 1)DVT -Heparin 5000 units Q8H 2)GI -Ranitidine 150mg BID #Disposition -Full code -Transfer to tele Visit type - Emergency Visit Emergency Visit: Yes ED Registration Date: 04/20/18 Care time: The patient presented to the Emergency Department on the above date and was hospitalized for further evaluation of their emergent condition. - New Patient This patient is new to me today: Yes Date on this admission: 04/21/18 - Critical Care Critical Care patient: Yes Total Critical Care Time (in minutes): 40 Critical Care Statement: The care of this patient involved high complexity decision making to prevent further life threatening deterioration of the patient 's condition and/or to evaluate & treat vital organ system(s) failure or risk of failure.
[2018-04-21] MEDS ORDERED: MONTELUKAST NA 5 MG TAB.CHEW PO SCH (22:00)
[2018-04-21] MEDS ORDERED: ROSUVASTATIN CA 5 MG TABLET (FP) PO SCH (22:00)
[2018-04-22] MEDS: methylPREDNISolone NA SUCC 40 MG/1 ML VIAL IVPUSH SCH ×4 (03:00→22:04)
[2018-04-22 06:23] LABS: BASO % 0.2 % (0-2.0); HEMATOCRIT 35.8 % (32.4-45.2); HEMOGLOBIN 11.3 GM/dL (10.7-15.3); LYMPH % 1.2 % (8-40); MCHC 31.7 g/dl (32.0-36.0); MEAN CELL VOLUME 94.8 fl (80-96); MEAN PLT VOLUME 8.3 fl (7.5-11.1); MONO % 2.6 % (3.8-10.2); PLATELET COUNT 187 K/MM3 (134-434); RBC 3.78 M/mm3 (3.60-5.2); RDW 13.3 % (11.6-15.6); WHITE BLOOD COUNT 9.3 K/mm3 (4.0-10.0)
[2018-04-22] MEDS: LEVOTHYROXINE NA 100 MCG TABLET (FP) PO SCH (06:28)
[2018-04-22 06:52] LABS: ALBUMIN 2.9 g/dl (3.4-5.0); ALK PHOS 58 U/L (45-117); BILIRUBIN,TOTAL 0.6 mg/dL (0.2-1); BLOOD UREA NITROGEN 20 mg/dL (7-18); CALCIUM 8.6 mg/dL (8.5-10.1); CHLORIDE 81 mmol/L (98-107); CREATININE 0.4 mg/dL (0.55-1.3); GLUCOSE,RANDOM 163 mg/dL (74-106); POTASSIUM 3.1 mmol/L (3.5-5.1); SGOT/AST 13 U/L (15-37); SGPT/ALT 19 U/L (13-61); SODIUM 140 mmol/L (136-145); TOT PROT 5.1 g/dl (6.4-8.2)
[2018-04-22 07:31] LABS: ANION GAP 7 MMOL/L (8-16); CO2 52 mmol/L (21-32)
[2018-04-22] MEDS: ALBUTEROL SO4 2.5/IPRATROPIUM 0.5 INH SOL 3 ML VIAL.NEB. NEB SCH ×4 (08:00→21:45)
[2018-04-22] MEDS ORDERED: POTASSIUM CHLORIDE 20 MEQ PREMIX IVPB 100 ML IVPB ONE (08:45)
[2018-04-22] MEDS: RANITIDINE HCL 150 MG TABLET (FP) PO SCH ×2 (09:39→22:06)
[2018-04-22] MEDS: POTASSIUM CHLORIDE TABS 20 MEQ TABLET.ER (FP) PO SCH (09:39)
[2018-04-22] MEDS: ASPIRIN 81 MG CHEWABLE TABLETS PO SCH (09:39)
[2018-04-22] MEDS: LOSARTAN POTASSIUM 25 MG TABLET PO SCH (09:39)
[2018-04-22] MEDS: ESCITALOPRAM OXALATE 10 MG TABLET (FP) PO SCH (09:39)
[2018-04-22] MEDS: FUROSEMIDE 40 MG TABLET (FP) PO SCH (09:40)
[2018-04-22] MEDS: HEPARIN NA (PORCINE) 5,000 UNITS/ML 1ML VIAL SQ SCH ×2 (09:43→22:06)
[2018-04-22] MEDS ORDERED: PT OWN MED DRAWER 7, Y5N ONE (09:50)
[2018-04-22] MEDS ORDERED: AZITHROMYCIN 250 MG TABLET PO SCH (10:00)
[2018-04-22] MEDS: ROFLUMILAST 500 MCG TABLET PO SCH (10:06)
[2018-04-22 10:22] LABS: ANISOCYTOSIS 1+; MACROCYTOSIS 0; PLATELET ESTIMATE NORMAL
--- NOTE | 2018-04-22 12:10 | PN ---
Teaching Attending Note Name of Resident: Tita Esquivel ATTENDING PHYSICIAN STATEMENT I saw and evaluated the patient. I reviewed the resident's note and discussed the case with the resident. I agree with the resident's findings and plan as documented. SUBJECTIVE: Patient seen and examined in the ICU. Breathing is improved from yesterday. No CP. Some dry cough (chronic). OBJECTIVE: Intake & Output 04/19/18 04/20/18 04/21/18 04/22/18 23:59 23:59 23:59 23:59 Intake Total 700 200 Output Total 900 500 Balance -200 -300 Weight 133 lb 6 oz 133 lb 6 oz 152 lb 3 oz Last Vital Signs Temp Pulse Resp BP Pulse Ox 98.7 F 86 22 H 107/58 L 98 04/22/18 10:00 04/22/18 12:00 04/22/18 12:00 04/22/18 12:00 04/22/18 09:00 Active Medications Albuterol Sulfate (Ventolin 0.083% Nebulizer Soln -) 1 amp NEB Q4H PRN PRN Reason: SHORT OF BREATH/WHEEZING Albuterol/Ipratropium (Duoneb -) 1 amp NEB RQID [facility] Last Admin: 04/22/18 08:00 Dose: 1 amp Aspirin (Asa -) 81 mg PO DAILY [facility] Last Admin: 04/22/18 09:39 Dose: 81 mg Azithromycin (Zithromax -) 250 mg PO DAILY [facility] Stop: 04/25/18 10:00 Last Admin: 04/22/18 10:07 Dose: 250 mg Escitalopram Oxalate (Lexapro -) 10 mg PO DAILY [facility] Last Admin: 04/22/18 09:39 Dose: 10 mg Furosemide (Lasix -) 20 mg PO DAILY [facility] Last Admin: 04/22/18 09:40 Dose: 20 mg Heparin Sodium (Porcine) (Heparin -) 5,000 unit SQ BID [facility] Last Admin: 04/22/18 09:43 Dose: 5,000 unit Levothyroxine Sodium (Synthroid -) 100 mcg PO DAILY@0700 [facility] Last Admin: 04/22/18 06:28 Dose: 100 mcg Losartan Potassium (Cozaar -) 25 mg PO DAILY [facility] Last Admin: 04/22/18 09:39 Dose: 25 mg Methylprednisolone Sodium Succinate (Solu-Medrol -) 40 mg IVPUSH Q6H-IV [facility] Last Admin: 04/22/18 09:38 Dose: 40 mg Montelukast Sodium (Singulair -) 5 mg PO HS [facility] Last Admin: 04/21/18 22:26 Dose: 5 mg Potassium Chloride (K-Dur -) 10 meq PO DAILY [facility] Last Admin: 04/22/18 09:39 Dose: 10 meq Ranitidine HCl (Zantac -) 150 mg PO BID [facility] Last Admin: 04/22/18 09:39 Dose: 150 mg Roflumilast (Daliresp -) 500 mcg PO DAILY [facility] Last Admin: 04/22/18 10:06 Dose: 500 mcg Rosuvastatin Calcium (Crestor -) 5 mg PO HS [facility] Last Admin: 04/21/18 22:27 Dose: 5 mg Gen: mildly tachypneic at rest Heart: RRR Lung: scattered rhonchi, wheezes Abd: soft, nontender Ext: no edema Laboratory Results - last 24 hr 04/22/18 04/22/18 05:30 05:30 WBC 9.3 RBC 3.78 Hgb 11.3 Hct 35.8 MCV 94.8 MCH 30.0 MCHC 31.7 L RDW 13.3 Plt Count 187 MPV 8.3 Absolute Neuts (auto) 8.9 H Neutrophils % 96.0 H Neutrophils % (Manual) 94.2 H Band Neutrophils % 0.9 Lymphocytes % 1.2 L D Lymphocytes % (Manual) 0.0 L Monocytes % 2.6 L Monocytes % (Manual) 4 Eosinophils % 0.0 Eosinophils % (Manual) 0.0 Basophils % 0.2 D Basophils % (Manual) 0.0 Myelocytes % (Man) 0 Promyelocytes % (Man) 0 Blast Cells % (Manual) 0 Nucleated RBC % 0 Metamyelocytes 0 Hypochromia 0 Platelet Estimate Normal Platelet Comment Present Polychromasia 1+ Poikilocytosis 0 Basophilic Stippling 1+ Anisocytosis 1+ Microcytosis 1+ Macrocytosis 0 Spherocytes 1+ Sodium 140 Potassium 3.1 L Chloride 81 L Carbon Dioxide 52 H Anion Gap 7 L BUN 20 H Creatinine 0.4 L Creat Clearance w eGFR > 60 Random Glucose 163 H Calcium 8.6 Total Bilirubin 0.6 AST 13 L ALT 19 Alkaline Phosphatase 58 Total Protein 5.1 L Albumin 2.9 L ASSESSMENT AND PLAN: Acute on Chronic Hypoxic and Hypercapneic Respiratory Failuer Acute COPD Exacerbation Altered Mental Status from above LV Diastolic Dysfunction HTN Hyperlipidemia Hypothyroidism - Anticipate rapid medrol taper - inhaled bronchodilators - O2 to keep SpO2 88-92% - Trilogy or BiPAP at night and PRN during day - Daliresp - BD TX - can monitor on floor with pulse oximetry monitoring Dr Jennings
--- NOTE | 2018-04-22 13:27 | PN ---
Progress Note, Physician History of Present Illness: Pt w/o SOB, CP, palpitations, abd pain. Pt is on O2 supplementation via NC, comfortable, alert and oriented. Pt states that fell yesterday afternoon while trying to walk to commode; no head trauma, no back pain, no LE or UE pain Pt was seen and examined in ICU - Current Medication List Current Medications: Active Medications Albuterol Sulfate (Ventolin 0.083% Nebulizer Soln -) 1 amp NEB Q4H PRN PRN Reason: SHORT OF BREATH/WHEEZING Albuterol/Ipratropium (Duoneb -) 1 amp NEB RQID [facility] Last Admin: 04/22/18 11:20 Dose: 1 amp Aspirin (Asa -) 81 mg PO DAILY [facility] Last Admin: 04/22/18 09:39 Dose: 81 mg Azithromycin (Zithromax -) 250 mg PO DAILY [facility] Stop: 04/25/18 10:00 Last Admin: 04/22/18 10:07 Dose: 250 mg Escitalopram Oxalate (Lexapro -) 10 mg PO DAILY [facility] Last Admin: 04/22/18 09:39 Dose: 10 mg Furosemide (Lasix -) 20 mg PO DAILY [facility] Last Admin: 04/22/18 09:40 Dose: 20 mg Heparin Sodium (Porcine) (Heparin -) 5,000 unit SQ BID [facility] Last Admin: 04/22/18 09:43 Dose: 5,000 unit Levothyroxine Sodium (Synthroid -) 100 mcg PO DAILY@0700 [facility] Last Admin: 04/22/18 06:28 Dose: 100 mcg Losartan Potassium (Cozaar -) 25 mg PO DAILY [facility] Last Admin: 04/22/18 09:39 Dose: 25 mg Methylprednisolone Sodium Succinate (Solu-Medrol -) 40 mg IVPUSH Q6H-IV [facility] Last Admin: 04/22/18 09:38 Dose: 40 mg Montelukast Sodium (Singulair -) 5 mg PO HS [facility] Last Admin: 04/21/18 22:26 Dose: 5 mg Potassium Chloride (K-Dur -) 10 meq PO DAILY [facility] Last Admin: 04/22/18 09:39 Dose: 10 meq Ranitidine HCl (Zantac -) 150 mg PO BID [facility] Last Admin: 04/22/18 09:39 Dose: 150 mg Roflumilast (Daliresp -) 500 mcg PO DAILY [facility] Last Admin: 04/22/18 10:06 Dose: 500 mcg Rosuvastatin Calcium (Crestor -) 5 mg PO HS [facility] Last Admin: 04/21/18 22:27 Dose: 5 mg - Objective Vital Signs: Vital Signs Temperature 98.7 F 04/22/18 10:00 Pulse Rate 86 04/22/18 12:00 Respiratory Rate 22 H 04/22/18 12:00 Blood Pressure 107/58 L 04/22/18 12:00 O2 Sat by Pulse Oximetry (%) 98 04/22/18 09:00 Constitutional: Yes: No Distress, Calm Cardiovascular: Yes: Regular Rate and Rhythm, S1, S2 Respiratory: Yes: Regular, Rhonchi, Wheezes Gastrointestinal: Yes: Normal Bowel Sounds, Soft, Abdomen, Obese. No: Tenderness Edema: No Neurological: Yes: Alert, Oriented Labs: CBC, BMP 04/22/18 05:30 04/22/18 05:30 Problem List - Problems (1) Acute on chronic respiratory failure with hypoxia and hypercapnia Code(s): J96.21 - ACUTE AND CHRONIC RESPIRATORY FAILURE WITH HYPOXIA; J96.22 - ACUTE AND CHRONIC RESPIRATORY FAILURE WITH HYPERCAPNIA (2) Altered mental status Code(s): R41.82 - ALTERED MENTAL STATUS, UNSPECIFIED (3) Sleep apnea Code(s): G47.30 - SLEEP APNEA, UNSPECIFIED (4) CHF (congestive heart failure) Code(s): I50.9 - HEART FAILURE, UNSPECIFIED (5) Hyperlipidemia Code(s): E78.5 - HYPERLIPIDEMIA, UNSPECIFIED Qualifiers: Hyperlipidemia type: pure hypercholesterolemia Qualified Code(s): E78.00 - Pure hypercholesterolemia, unspecified; E78.0 - Pure hypercholesterolemia (6) Hypertension Code(s): I10 - ESSENTIAL (PRIMARY) HYPERTENSION Qualifiers: Hypertension type: essential hypertension Qualified Code(s): I10 - Essential (primary) hypertension (7) Hypothyroidism Code(s): E03.9 - HYPOTHYROIDISM, UNSPECIFIED Qualifiers: Hypothyroidism type: unspecified Qualified Code(s): E03.9 - Hypothyroidism , unspecified (8) Fall Assessment/Plan: mechanical, no gross injury Code(s): W19.XXXA - UNSPECIFIED FALL, INITIAL ENCOUNTER Qualifiers: Encounter type: initial encounter Qualified Code(s): W19.XXXA - Unspecified fall, initial encounter (9) Hypokalemia Assessment/Plan: replete K; check Mg level Code(s): E87.6 - HYPOKALEMIA Assessment/Plan Admit to ICU CCM consult is appreciated; to cont current Rx. Pulmonary consult is appreciated. IV steroids Continue BIPAP at night and PRN during the day Labs in AM. DVT prophylaxis GI prophylaxis Fall precautions. I d/w pt risks associated with fall. I recommended to pt to call for help anytime she wants to get out of bed or she feels than needs help. Prognosis: improved. Time spent for managing pt's care: over 35 minutes
--- NOTE | 2018-04-22 15:14 | PN ---
Physical Exam: SUBJECTIVE: Patient seen and examined at bedside this morning. No acute events overnight. Patient on 4L NC overnight. She has no new complaints. OBJECTIVE: Vital Signs Period Temp Pulse Resp BP Sys/Domínguez Pulse Ox Last 24 Hr 98.2 F-98.7 F 66-108 19-25 104-138/58-83 96-98 GENERAL: The patient is awake, alert, and fully oriented, on 4L NC. HEAD: Normal with no signs of trauma. EYES: PERRLA, EOMI, sclera anicteric, conjunctiva clear. No ptosis. ENT: Ears normal, nares patent, oropharynx clear without exudates, moist mucous membranes. NECK: Trachea midline, full range of motion, supple. LUNGS: clear breath sounds bilaterally, diminished breath sounds on Left HEART: Regular rate and rhythm, S1, S2 without murmur, rub or gallop. ABDOMEN: Soft, nontender, nondistended, normoactive bowel sounds. EXTREMITIES: 2+ pulses, warm, well-perfused, +1 pitting edema. NEUROLOGICAL: Cranial nerves II through XII grossly intact. Normal speech, gait not observed. PSYCH: Normal mood, normal affect. SKIN: Warm, dry, normal turgor, no rashes or lesions noted Laboratory Results - last 24 hr 04/22/18 04/22/18 05:30 05:30 WBC 9.3 RBC 3.78 Hgb 11.3 Hct 35.8 MCV 94.8 MCH 30.0 MCHC 31.7 L RDW 13.3 Plt Count 187 MPV 8.3 Absolute Neuts (auto) 8.9 H Neutrophils % 96.0 H Neutrophils % (Manual) 94.2 H Band Neutrophils % 0.9 Lymphocytes % 1.2 L D Lymphocytes % (Manual) 0.0 L Monocytes % 2.6 L Monocytes % (Manual) 4 Eosinophils % 0.0 Eosinophils % (Manual) 0.0 Basophils % 0.2 D Basophils % (Manual) 0.0 Myelocytes % (Man) 0 Promyelocytes % (Man) 0 Blast Cells % (Manual) 0 Nucleated RBC % 0 Metamyelocytes 0 Hypochromia 0 Platelet Estimate Normal Platelet Comment Present Polychromasia 1+ Poikilocytosis 0 Basophilic Stippling 1+ Anisocytosis 1+ Microcytosis 1+ Macrocytosis 0 Spherocytes 1+ Sodium 140 Potassium 3.1 L Chloride 81 L Carbon Dioxide 52 H Anion Gap 7 L BUN 20 H Creatinine 0.4 L Creat Clearance w eGFR > 60 Random Glucose 163 H Calcium 8.6 Total Bilirubin 0.6 AST 13 L ALT 19 Alkaline Phosphatase 58 Total Protein 5.1 L Albumin 2.9 L Active Medications Generic Name Dose Route Start Last Admin Trade Name Freq PRN Reason Stop Dose Admin Albuterol Sulfate 1 amp 04/20/18 20:36 Ventolin 0.083% Nebulizer Soln - NEB Q4H PRN SHORT OF BREATH/WHEEZING Albuterol/Ipratropium 1 amp 04/21/18 08:00 04/22/18 11:20 Duoneb - NEB 1 amp RQID [facility] Administration Aspirin 81 mg 04/21/18 10:00 04/22/18 09:39 Asa - PO 81 mg DAILY [facility] Administration Azithromycin 250 mg 04/22/18 10:00 04/22/18 10:07 Zithromax - PO 04/25/18 10:00 250 mg DAILY [facility] Administration Escitalopram Oxalate 10 mg 04/21/18 10:00 04/22/18 09:39 Lexapro - PO 10 mg DAILY [facility] Administration Furosemide 20 mg 04/21/18 10:00 04/22/18 09:40 Lasix - PO 20 mg DAILY [facility] Administration Heparin Sodium (Porcine) 5,000 unit 04/20/18 23:30 04/22/18 09:43 Heparin - SQ 5,000 unit BID [facility] Administration Levothyroxine Sodium 100 mcg 04/21/18 07:00 04/22/18 06:28 Synthroid - PO 100 mcg DAILY@0700 [facility] Administration Losartan Potassium 25 mg 04/21/18 10:00 04/22/18 09:39 Cozaar - PO 25 mg DAILY [facility] Administration Methylprednisolone Sodium Succinate 40 mg 04/20/18 21:00 04/22/18 09:38 Solu-Medrol - IVPUSH 40 mg Q6H-IV [facility] Administration Montelukast Sodium 5 mg 04/21/18 22:00 04/21/18 22:26 Singulair - PO 5 mg HS [facility] Administration Potassium Chloride 10 meq 04/21/18 10:00 04/22/18 09:39 K-Dur - PO 10 meq DAILY [facility] Administration Ranitidine HCl 150 mg 04/20/18 23:30 04/22/18 09:39 Zantac - PO 150 mg BID [facility] Administration Roflumilast 500 mcg 04/21/18 10:00 04/22/18 10:06 Daliresp - PO 500 mcg DAILY [facility] Administration Rosuvastatin Calcium 5 mg 04/21/18 22:00 04/21/18 22:27 Crestor - PO 5 mg HS [facility] Administration ASSESSMENT/PLAN: Patient is a 57 year old female who presented for dyspnea, wheezing with cough, bilateral pitting edema and was found to be in COPD exacerbation. Patient admitted for further monitoring and management. #Pulmonology 1)Acute on Chronic hypoxic and hypercapneic Respiratory Failure -CXR: No significant interval change or acute lung disease present. -ABG on admission C02 of 107 with PH 7.39 --> repeat ABG: ph 7.41, pCO2 98.7. pO2 81.2, HCO3 61.1 -Weaned off bipap this morning. On 40% venti mask, with O2 sat 95% -Continue IV solu-medrol 40mg IV Q6H -Continue Duoneb QID and Albuterol inhaler PRN -Continue Singulair 5mg daily -Continue Daliresp 500mcg daily -Can monitor on floor with pulse oximtery -Maintain 02 saturation between 88-92% 2)NAVDEEP -Continue BIPAP at night, and PRN during the day #Cardiology 1)Diastolic CHF -Continue home medication Lasix 20mg PO daily -Strict I&O's -Monitor Creatinine 2)CAD -Continue ASA 81mg daily and Rosuvastatin 5mg daily 3)HTN -Continue home medication Losartan 25mg daily -Continue to monitor BP 4)HLD -Continue crestor 5mg HS #Endocrinology 1) Hypothyroidism -Continue home medication Synthroid 100mcg #Psychiatry 1)Depression/Anxiety -Continue Lexapro 10mg daily #FEN -Not on any standing fluids -Hypokalemia. Replete with KCl and repeat -Sodium controlled/low cholesterol diet #Prophylaxis 1)DVT -Heparin 5000 units Q8H 2)GI -Ranitidine 150mg BID #Disposition -Full code -Transfer to regular floors Visit type - Emergency Visit Emergency Visit: Yes ED Registration Date: 04/20/18 Care time: The patient presented to the Emergency Department on the above date and was hospitalized for further evaluation of their emergent condition. - New Patient This patient is new to me today: Yes Date on this admission: 04/22/18 - Critical Care Critical Care patient: Yes Total Critical Care Time (in minutes): 40 Critical Care Statement: The care of this patient involved high complexity decision making to prevent further life threatening deterioration of the patient 's condition and/or to evaluate & treat vital organ system(s) failure or risk of failure.
[2018-04-22] MEDS ORDERED: ALBUTEROL SO4 0.083% IH SOL 2.5 MG/3 ML VIAL.NEB. NEB PRN (15:41)
[2018-04-22] MEDS: ROSUVASTATIN CA 5 MG TABLET (FP) PO SCH (22:06)
[2018-04-22] MEDS: MONTELUKAST NA 5 MG TAB.CHEW PO SCH (22:06)
[2018-04-23] MEDS: methylPREDNISolone NA SUCC 40 MG/1 ML VIAL IVPUSH SCH ×3 (02:30→17:46)
[2018-04-23] MEDS: LEVOTHYROXINE NA 100 MCG TABLET (FP) PO SCH (06:39)
[2018-04-23] MEDS: ALBUTEROL SO4 2.5/IPRATROPIUM 0.5 INH SOL 3 ML VIAL.NEB. NEB SCH ×3 (07:44→16:55)
[2018-04-23 08:14] LABS: HEMATOCRIT 36.4 % (32.4-45.2); HEMOGLOBIN 11.6 GM/dL (10.7-15.3); MCH 30.1 pg (25.7-33.7); MCHC 31.9 g/dl (32.0-36.0); MEAN CELL VOLUME 94.6 fl (80-96); MEAN PLT VOLUME 8.2 fl (7.5-11.1); PLATELET COUNT 160 K/MM3 (134-434); RBC 3.85 M/mm3 (3.60-5.2); RDW 13.3 % (11.6-15.6); WHITE BLOOD COUNT 10.5 K/mm3 (4.0-10.0)
[2018-04-23 08:23] LABS: ANION GAP 13 MMOL/L (8-16); BLOOD UREA NITROGEN 24 mg/dL (7-18); CALCIUM 8.6 mg/dL (8.5-10.1); CHLORIDE 84 mmol/L (98-107); CO2 > 45 mmol/L (21-32); CREATININE 0.5 mg/dL (0.55-1.3); GLUCOSE,RANDOM 167 mg/dL (74-106); POTASSIUM 3.8 mmol/L (3.5-5.1); SODIUM 141 mmol/L (136-145)
[2018-04-23] MEDS ORDERED: PT OWN MED DRAWER 7, Y5N ONE ×2 (09:45→18:49)
[2018-04-23] MEDS: ASPIRIN 81 MG CHEWABLE TABLETS PO SCH (09:52)
[2018-04-23] MEDS: ESCITALOPRAM OXALATE 10 MG TABLET (FP) PO SCH (09:53)
[2018-04-23] MEDS: ROFLUMILAST 500 MCG TABLET PO SCH (09:54)
[2018-04-23] MEDS: LOSARTAN POTASSIUM 25 MG TABLET PO SCH (09:54)
[2018-04-23] MEDS: AZITHROMYCIN 250 MG TABLET PO SCH (09:54)
[2018-04-23] MEDS: RANITIDINE HCL 150 MG TABLET (FP) PO SCH ×2 (09:54→21:45)
[2018-04-23] MEDS: HEPARIN NA (PORCINE) 5,000 UNITS/ML 1ML VIAL SQ SCH ×2 (09:56→21:47)
[2018-04-23] MEDS ORDERED: POTASSIUM CHLORIDE TABS 20 MEQ TABLET.ER (FP) PO SCH (10:00)
[2018-04-23] MEDS ORDERED: FUROSEMIDE 40 MG TABLET (FP) PO SCH (10:00)
--- NOTE | 2018-04-23 11:11 | PN ---
Progress Note, Physician History of Present Illness: Pt w/o SOB, CP, palpitations, abd pain. Pt is on O2 supplementation via NC, comfortable, alert and oriented. - Current Medication List Current Medications: Active Medications Albuterol Sulfate (Ventolin 0.083% Nebulizer Soln -) 1 amp NEB Q4H PRN PRN Reason: SHORT OF BREATH/WHEEZING Albuterol/Ipratropium (Duoneb -) 1 amp NEB RQID [facility] Last Admin: 04/22/18 21:45 Dose: 1 amp Aspirin (Asa -) 81 mg PO DAILY [facility] Last Admin: 04/23/18 09:52 Dose: 81 mg Azithromycin (Zithromax -) 250 mg PO DAILY [facility] Stop: 04/25/18 10:00 Last Admin: 04/23/18 09:54 Dose: 250 mg Escitalopram Oxalate (Lexapro -) 10 mg PO DAILY [facility] Last Admin: 04/23/18 09:53 Dose: 10 mg Furosemide (Lasix -) 20 mg PO DAILY [facility] Last Admin: 04/23/18 09:52 Dose: 20 mg Heparin Sodium (Porcine) (Heparin -) 5,000 unit SQ BID [facility] Last Admin: 04/23/18 09:56 Dose: 5,000 unit Levothyroxine Sodium (Synthroid -) 100 mcg PO DAILY@0700 [facility] Last Admin: 04/23/18 06:39 Dose: 100 mcg Losartan Potassium (Cozaar -) 25 mg PO DAILY [facility] Last Admin: 04/23/18 09:54 Dose: 25 mg Methylprednisolone Sodium Succinate (Solu-Medrol -) 40 mg IVPUSH Q6H-IV [facility] Last Admin: 04/23/18 09:56 Dose: 40 mg Montelukast Sodium (Singulair -) 5 mg PO HS [facility] Last Admin: 04/22/18 22:06 Dose: 5 mg Potassium Chloride (K-Dur -) 10 meq PO DAILY [facility] Last Admin: 04/23/18 09:55 Dose: 10 meq Ranitidine HCl (Zantac -) 150 mg PO BID [facility] Last Admin: 04/23/18 09:54 Dose: 150 mg Roflumilast (Daliresp -) 500 mcg PO DAILY [facility] Last Admin: 04/23/18 09:54 Dose: 500 mcg Rosuvastatin Calcium (Crestor -) 5 mg PO HS [facility] Last Admin: 04/22/18 22:06 Dose: 5 mg - Objective Vital Signs: Vital Signs Temperature 97.5 F L 04/23/18 06:00 Pulse Rate 71 04/23/18 06:00 Respiratory Rate 22 H 04/23/18 06:00 Blood Pressure 112/64 04/23/18 06:00 O2 Sat by Pulse Oximetry (%) 97 04/22/18 21:00 Constitutional: Yes: No Distress, Calm Cardiovascular: Yes: Regular Rate and Rhythm, S1, S2 Respiratory: Yes: Regular, Rales (minimal), Wheezes Gastrointestinal: Yes: Normal Bowel Sounds, Soft, Abdomen, Obese. No: Tenderness Edema: No Neurological: Yes: Alert, Oriented Labs: CBC, BMP 04/23/18 06:00 04/23/18 06:00 Problem List - Problems (1) Acute on chronic respiratory failure with hypoxia and hypercapnia Code(s): J96.21 - ACUTE AND CHRONIC RESPIRATORY FAILURE WITH HYPOXIA; J96.22 - ACUTE AND CHRONIC RESPIRATORY FAILURE WITH HYPERCAPNIA (2) Altered mental status Code(s): R41.82 - ALTERED MENTAL STATUS, UNSPECIFIED (3) Sleep apnea Code(s): G47.30 - SLEEP APNEA, UNSPECIFIED (4) CHF (congestive heart failure) Code(s): I50.9 - HEART FAILURE, UNSPECIFIED (5) Hyperlipidemia Code(s): E78.5 - HYPERLIPIDEMIA, UNSPECIFIED Qualifiers: Hyperlipidemia type: pure hypercholesterolemia Qualified Code(s): E78.00 - Pure hypercholesterolemia, unspecified; E78.0 - Pure hypercholesterolemia (6) Hypertension Code(s): I10 - ESSENTIAL (PRIMARY) HYPERTENSION Qualifiers: Hypertension type: essential hypertension Qualified Code(s): I10 - Essential (primary) hypertension (7) Hypothyroidism Code(s): E03.9 - HYPOTHYROIDISM, UNSPECIFIED Qualifiers: Hypothyroidism type: unspecified Qualified Code(s): E03.9 - Hypothyroidism , unspecified (8) Fall Code(s): W19.XXXA - UNSPECIFIED FALL, INITIAL ENCOUNTER Qualifiers: Encounter type: initial encounter Qualified Code(s): W19.XXXA - Unspecified fall, initial encounter (9) Hypokalemia Code(s): E87.6 - HYPOKALEMIA (10) Leukocytosis Assessment/Plan: Probable secondary to Steroids; to f/u Code(s): D72.829 - ELEVATED WHITE BLOOD CELL COUNT, UNSPECIFIED Assessment/Plan Admit to ICU CCM consult is appreciated; to cont current Rx. Pulmonary consult is appreciated. IV steroids -to taper to Q6H, same dose Continue BIPAP at night and PRN during the day Labs in AM. DVT prophylaxis GI prophylaxis
--- NOTE | 2018-04-23 14:24 | PN ---
Progress Note (short form) - Note Progress Note: PULMONARY SITTING UP IN BED USING Subjective improvement VSS/afebrile Gen: mildly tachypneic at rest Heart: RRR Lung: scattered rhonchi, wheezes Abd: soft, nontender Ext: no edema radiographs/meds/notes/images reviewed ASSESSMENT AND PLAN: Acute on Chronic Hypoxic and Hypercapneic Respiratory Failuer Acute COPD Exacerbation Altered Mental Status from above LV Diastolic Dysfunction HTN Hyperlipidemia Hypothyroidism - medrol taper as tolerated - inhaled bronchodilators - O2 to keep SpO2 88-92% - Trilogy or BiPAP at night and PRN during day - Daliresp - BD MASTER ALEGRE MD
[2018-04-23] MEDS: MONTELUKAST NA 5 MG TAB.CHEW PO SCH (21:45)
[2018-04-23] MEDS: ACETAMINOPHEN 325 MG TABLET (FP) PO PRN (21:46)
[2018-04-23] MEDS: ROSUVASTATIN CA 5 MG TABLET (FP) PO SCH (21:46)
[2018-04-24] MEDS: methylPREDNISolone NA SUCC 40 MG/1 ML VIAL IVPUSH SCH ×3 (02:53→17:33)
[2018-04-24] MEDS: ALBUTEROL SO4 2.5/IPRATROPIUM 0.5 INH SOL 3 ML VIAL.NEB. NEB SCH ×5 (06:02→20:32)
[2018-04-24] MEDS: LEVOTHYROXINE NA 100 MCG TABLET (FP) PO SCH (06:31)
[2018-04-24 08:32] LABS: HEMATOCRIT 35.3 % (32.4-45.2); HEMOGLOBIN 11.5 GM/dL (10.7-15.3); MCH 30.6 pg (25.7-33.7); MCHC 32.7 g/dl (32.0-36.0); MEAN CELL VOLUME 93.6 fl (80-96); MEAN PLT VOLUME 8.5 fl (7.5-11.1); PLATELET COUNT 138 K/MM3 (134-434); RBC 3.77 M/mm3 (3.60-5.2); RDW 13.2 % (11.6-15.6); WHITE BLOOD COUNT 7.5 K/mm3 (4.0-10.0)
[2018-04-24 09:14] LABS: BLOOD UREA NITROGEN 27 mg/dL (7-18); CALCIUM 8.4 mg/dL (8.5-10.1); CHLORIDE 84 mmol/L (98-107); CREATININE 0.5 mg/dL (0.55-1.3); GLUCOSE,RANDOM 151 mg/dL (74-106); POTASSIUM 3.6 mmol/L (3.5-5.1); SODIUM 142 mmol/L (136-145)
[2018-04-24] MEDS ORDERED: PT OWN MED DRAWER 7, Y5N ONE (09:33)
[2018-04-24 09:35] LABS: ANION GAP 3 MMOL/L (8-16); CO2 55 mmol/L (21-32)
[2018-04-24] MEDS: ESCITALOPRAM OXALATE 10 MG TABLET (FP) PO SCH (09:40)
[2018-04-24] MEDS: AZITHROMYCIN 250 MG TABLET PO SCH (09:40)
[2018-04-24] MEDS: ROFLUMILAST 500 MCG TABLET PO SCH (09:40)
[2018-04-24] MEDS: ASPIRIN 81 MG CHEWABLE TABLETS PO SCH (09:40)
[2018-04-24] MEDS: RANITIDINE HCL 150 MG TABLET (FP) PO SCH ×2 (09:41→21:30)
[2018-04-24] MEDS: LOSARTAN POTASSIUM 25 MG TABLET PO SCH (09:41)
[2018-04-24] MEDS: HEPARIN NA (PORCINE) 5,000 UNITS/ML 1ML VIAL SQ SCH ×2 (09:41→21:30)
[2018-04-24] MEDS: FUROSEMIDE 20 MG TABLET (FP) PO SCH (09:49)
[2018-04-24] MEDS: POTASSIUM CHLORIDE TABS 10 MEQ TABLET.ER (FP) PO SCH (09:49)
--- NOTE | 2018-04-24 13:31 | PN ---
Progress Note (short form) - Note Progress Note: PULMONARY Breathing better today. Less cough and wheezing. Vital Signs Period Temp Pulse Resp BP Sys/Domínguez Pulse Ox Last 24 Hr 98.1 F-98.9 F 64-83 20-22 101-137/58-74 96-100 Gen: less tachypneic Heart: RRR Lung: less wheezes, rhonchi Abd: soft, nontender Ext: no edema CBC, BMP 04/24/18 07:15 04/24/18 07:15 Active Medications Acetaminophen (Tylenol -) 650 mg PO Q6H PRN PRN Reason: FEVER Last Admin: 04/23/18 21:46 Dose: 650 mg Albuterol Sulfate (Ventolin 0.083% Nebulizer Soln -) 1 amp NEB Q4H PRN PRN Reason: SHORT OF BREATH/WHEEZING Albuterol/Ipratropium (Duoneb -) 1 amp NEB RQID [facility] Last Admin: 04/24/18 08:10 Dose: 1 amp Aspirin (Asa -) 81 mg PO DAILY [facility] Last Admin: 04/24/18 09:40 Dose: 81 mg Azithromycin (Zithromax -) 250 mg PO DAILY [facility] Stop: 04/25/18 10:00 Last Admin: 04/24/18 09:40 Dose: 250 mg Escitalopram Oxalate (Lexapro -) 10 mg PO DAILY [facility] Last Admin: 04/24/18 09:40 Dose: 10 mg Furosemide (Lasix -) 20 mg PO DAILY [facility] Last Admin: 04/24/18 09:49 Dose: 20 mg Heparin Sodium (Porcine) (Heparin -) 5,000 unit SQ BID [facility] Last Admin: 04/24/18 09:41 Dose: 5,000 unit Levothyroxine Sodium (Synthroid -) 100 mcg PO DAILY@0700 [facility] Last Admin: 04/24/18 06:31 Dose: 100 mcg Losartan Potassium (Cozaar -) 25 mg PO DAILY [facility] Last Admin: 04/24/18 09:41 Dose: 25 mg Methylprednisolone Sodium Succinate (Solu-Medrol -) 40 mg IVPUSH Q8H-IV [facility] Last Admin: 04/24/18 09:41 Dose: 40 mg Montelukast Sodium (Singulair -) 5 mg PO HS [facility] Last Admin: 04/23/18 21:45 Dose: 5 mg Potassium Chloride (K-Dur -) 10 meq PO DAILY [facility] Last Admin: 04/24/18 09:49 Dose: 10 meq Ranitidine HCl (Zantac -) 150 mg PO BID [facility] Last Admin: 04/24/18 09:41 Dose: 150 mg Roflumilast (Daliresp -) 500 mcg PO DAILY [facility] Last Admin: 04/24/18 09:40 Dose: 500 mcg Rosuvastatin Calcium (Crestor -) 5 mg PO HS [facility] Last Admin: 04/23/18 21:46 Dose: 5 mg A/P Acute on Chronic Hypoxic and Hypercapneic Respiratory Failure improving Acute COPD Exacerbation Altered Mental Status improving LV Diastolic Dysfunction HTN Hyperlipidemia Hypothyroidism - continue medrol same dose today - inhaled bronchodilators - O2 to keep SpO2 88-92% - BiPAP at night and PRN during day - daliresp - continue lasix
--- NOTE | 2018-04-24 14:21 | PN ---
Progress Note, Physician Chief Complaint: feels better less SOB less cough consults and meds d/w pt - Current Medication List Current Medications: Active Medications Acetaminophen (Tylenol -) 650 mg PO Q6H PRN PRN Reason: FEVER Last Admin: 04/23/18 21:46 Dose: 650 mg Albuterol Sulfate (Ventolin 0.083% Nebulizer Soln -) 1 amp NEB Q4H PRN PRN Reason: SHORT OF BREATH/WHEEZING Albuterol/Ipratropium (Duoneb -) 1 amp NEB RQID [facility] Last Admin: 04/24/18 08:10 Dose: 1 amp Aspirin (Asa -) 81 mg PO DAILY [facility] Last Admin: 04/24/18 09:40 Dose: 81 mg Azithromycin (Zithromax -) 250 mg PO DAILY [facility] Stop: 04/25/18 10:00 Last Admin: 04/24/18 09:40 Dose: 250 mg Escitalopram Oxalate (Lexapro -) 10 mg PO DAILY [facility] Last Admin: 04/24/18 09:40 Dose: 10 mg Furosemide (Lasix -) 20 mg PO DAILY [facility] Last Admin: 04/24/18 09:49 Dose: 20 mg Heparin Sodium (Porcine) (Heparin -) 5,000 unit SQ BID [facility] Last Admin: 04/24/18 09:41 Dose: 5,000 unit Levothyroxine Sodium (Synthroid -) 100 mcg PO DAILY@0700 [facility] Last Admin: 04/24/18 06:31 Dose: 100 mcg Losartan Potassium (Cozaar -) 25 mg PO DAILY [facility] Last Admin: 04/24/18 09:41 Dose: 25 mg Methylprednisolone Sodium Succinate (Solu-Medrol -) 40 mg IVPUSH Q8H-IV [facility] Last Admin: 04/24/18 09:41 Dose: 40 mg Montelukast Sodium (Singulair -) 5 mg PO HS [facility] Last Admin: 04/23/18 21:45 Dose: 5 mg Potassium Chloride (K-Dur -) 10 meq PO DAILY [facility] Last Admin: 04/24/18 09:49 Dose: 10 meq Ranitidine HCl (Zantac -) 150 mg PO BID [facility] Last Admin: 04/24/18 09:41 Dose: 150 mg Roflumilast (Daliresp -) 500 mcg PO DAILY [facility] Last Admin: 04/24/18 09:40 Dose: 500 mcg Rosuvastatin Calcium (Crestor -) 5 mg PO HS [facility] Last Admin: 04/23/18 21:46 Dose: 5 mg - Objective Vital Signs: Vital Signs Temperature 98.1 F 04/24/18 06:00 Pulse Rate 64 04/24/18 06:00 Respiratory Rate 20 04/24/18 06:00 Blood Pressure 137/74 04/24/18 06:00 O2 Sat by Pulse Oximetry (%) 97 04/24/18 05:45 Constitutional: Yes: No Distress, Calm Eyes: Yes: Conjunctiva Clear HENT: Yes: Atraumatic Neck: Yes: Supple Cardiovascular: Yes: Regular Rate and Rhythm Respiratory: Yes: Wheezes Gastrointestinal: Yes: Soft. No: Distention Genitourinary: No: CVA Tenderness - Left, CVA Tenderness - Right Musculoskeletal: No: Joint Stiffness, Joint Swelling Extremities: No: Cold, Cool, Cyanosis Edema: No Integumentary: No: Rash, Venous Stasis Changes Neurological: Yes: WNL, Alert, Oriented ...Motor Strength: WNL Psychiatric: Yes: WNL, Alert, Oriented. No: Agitated, Suicidal Ideation Labs: CBC, BMP 04/24/18 07:15 04/24/18 07:15 - ....Imaging Other: Report Reviewed Assessment/Plan 57 YOF severe COPD O2 dep, ASHD DM admitted with COPD exac iv steroids, O2, inhalers pulm f/u DVT falls PFX d.w pt and staff
[2018-04-24] MEDS: ACETAMINOPHEN 325 MG TABLET (FP) PO PRN (21:30)
[2018-04-24] MEDS: ROSUVASTATIN CA 5 MG TABLET (FP) PO SCH (21:30)
[2018-04-24] MEDS: MONTELUKAST NA 5 MG TAB.CHEW PO SCH (21:31)
[2018-04-25] MEDS: methylPREDNISolone NA SUCC 40 MG/1 ML VIAL IVPUSH SCH ×3 (02:37→22:11)
[2018-04-25] MEDS: LEVOTHYROXINE NA 100 MCG TABLET (FP) PO SCH (06:24)
[2018-04-25] MEDS: ALBUTEROL SO4 2.5/IPRATROPIUM 0.5 INH SOL 3 ML VIAL.NEB. NEB SCH ×4 (07:45→20:08)
[2018-04-25 07:54] LABS: HEMATOCRIT 35.4 % (32.4-45.2); HEMOGLOBIN 11.3 GM/dL (10.7-15.3); LYMPH % 1.8 % (8-40); MCH 29.9 pg (25.7-33.7); MCHC 31.8 g/dl (32.0-36.0); MEAN CELL VOLUME 93.9 fl (80-96); MEAN PLT VOLUME 8.8 fl (7.5-11.1); NEUT % 94.2 % (42.8-82.8); PLATELET COUNT 103 K/MM3 (134-434); RBC 3.77 M/mm3 (3.60-5.2); RDW 13.3 % (11.6-15.6); WHITE BLOOD COUNT 5.9 K/mm3 (4.0-10.0)
--- NOTE | 2018-04-25 08:18 | PN ---
Progress Note, Physician Chief Complaint: feels better; to taper steroids will do pulm rehab after DC from [facility] - Current Medication List Current Medications: Active Medications Acetaminophen (Tylenol -) 650 mg PO Q6H PRN PRN Reason: FEVER Last Admin: 04/24/18 21:30 Dose: 650 mg Albuterol Sulfate (Ventolin 0.083% Nebulizer Soln -) 1 amp NEB Q4H PRN PRN Reason: SHORT OF BREATH/WHEEZING Albuterol/Ipratropium (Duoneb -) 1 amp NEB RQID [facility] Last Admin: 04/24/18 20:32 Dose: 1 amp Aspirin (Asa -) 81 mg PO DAILY [facility] Last Admin: 04/24/18 09:40 Dose: 81 mg Azithromycin (Zithromax -) 250 mg PO DAILY [facility] Stop: 04/25/18 10:00 Last Admin: 04/24/18 09:40 Dose: 250 mg Escitalopram Oxalate (Lexapro -) 10 mg PO DAILY [facility] Last Admin: 04/24/18 09:40 Dose: 10 mg Furosemide (Lasix -) 20 mg PO DAILY [facility] Last Admin: 04/24/18 09:49 Dose: 20 mg Heparin Sodium (Porcine) (Heparin -) 5,000 unit SQ BID [facility] Last Admin: 04/24/18 21:30 Dose: Not Given Levothyroxine Sodium (Synthroid -) 100 mcg PO DAILY@0700 [facility] Last Admin: 04/25/18 06:24 Dose: 100 mcg Losartan Potassium (Cozaar -) 25 mg PO DAILY [facility] Last Admin: 04/24/18 09:41 Dose: 25 mg Methylprednisolone Sodium Succinate (Solu-Medrol -) 40 mg IVPUSH Q8H-IV [facility] Last Admin: 04/25/18 02:37 Dose: 40 mg Montelukast Sodium (Singulair -) 5 mg PO HS [facility] Last Admin: 04/24/18 21:31 Dose: 5 mg Potassium Chloride (K-Dur -) 10 meq PO DAILY [facility] Last Admin: 04/24/18 09:49 Dose: 10 meq Ranitidine HCl (Zantac -) 150 mg PO BID [facility] Last Admin: 04/24/18 21:30 Dose: 150 mg Roflumilast (Daliresp -) 500 mcg PO DAILY [facility] Last Admin: 04/24/18 09:40 Dose: 500 mcg Rosuvastatin Calcium (Crestor -) 5 mg PO HS [facility] Last Admin: 04/24/18 21:30 Dose: 5 mg - Objective Vital Signs: Vital Signs Temperature 97.6 F 04/25/18 06:00 Pulse Rate 80 04/25/18 06:00 Respiratory Rate 20 04/25/18 06:00 Blood Pressure 120/64 04/25/18 06:00 O2 Sat by Pulse Oximetry (%) 98 04/25/18 06:03 Constitutional: Yes: No Distress, Calm Eyes: Yes: Conjunctiva Clear HENT: Yes: Atraumatic Neck: Yes: Supple Cardiovascular: Yes: Regular Rate and Rhythm Respiratory: Yes: Rales Gastrointestinal: Yes: Soft. No: Distention Genitourinary: No: CVA Tenderness - Left, CVA Tenderness - Right Musculoskeletal: No: Joint Stiffness, Joint Swelling Extremities: No: Cold, Cool, Cyanosis Edema: No Integumentary: No: Rash, Venous Stasis Changes Neurological: Yes: WNL, Alert, Oriented ...Motor Strength: WNL Psychiatric: Yes: WNL, Alert, Oriented. No: Agitated, Suicidal Ideation Labs: CBC, BMP 04/25/18 07:15 - ....Imaging Other: Report Reviewed Assessment/Plan 57 YOF severe COPD O2 dep, ASHD DM admitted with COPD exac iv steroids, O2, inhalers pulm f/u DVT falls PFX d.w pt and staff
[2018-04-25 09:04] LABS: ALBUMIN 3.1 g/dl (3.4-5.0); ALK PHOS 52 U/L (45-117); BILIRUBIN,TOTAL 0.7 mg/dL (0.2-1); BLOOD UREA NITROGEN 26 mg/dL (7-18); CALCIUM 8.4 mg/dL (8.5-10.1); CHLORIDE 85 mmol/L (98-107); CREATININE 0.5 mg/dL (0.55-1.3); GLUCOSE,RANDOM 145 mg/dL (74-106); POTASSIUM 4.2 mmol/L (3.5-5.1); SGOT/AST 10 U/L (15-37); SGPT/ALT 21 U/L (13-61); SODIUM 140 mmol/L (136-145); TOT PROT 5.4 g/dl (6.4-8.2)
[2018-04-25] MEDS: ASPIRIN 81 MG CHEWABLE TABLETS PO SCH (09:49)
[2018-04-25] MEDS: HEPARIN NA (PORCINE) 5,000 UNITS/ML 1ML VIAL SQ SCH ×2 (09:50→22:11)
[2018-04-25] MEDS: LOSARTAN POTASSIUM 25 MG TABLET PO SCH (09:50)
[2018-04-25] MEDS: ROFLUMILAST 500 MCG TABLET PO SCH (09:50)
[2018-04-25] MEDS: FUROSEMIDE 20 MG TABLET (FP) PO SCH (09:51)
[2018-04-25] MEDS: ESCITALOPRAM OXALATE 10 MG TABLET (FP) PO SCH (09:51)
[2018-04-25] MEDS: POTASSIUM CHLORIDE TABS 10 MEQ TABLET.ER (FP) PO SCH (09:51)
[2018-04-25] MEDS: RANITIDINE HCL 150 MG TABLET (FP) PO SCH ×2 (09:52→22:11)
[2018-04-25] MEDS: AZITHROMYCIN 250 MG TABLET PO SCH (09:52)
[2018-04-25 09:58] LABS: ANISOCYTOSIS 2+; MACROCYTOSIS 0; PLATELET ESTIMATE DECREASED
[2018-04-25 10:10] LABS: CO2 52 mmol/L (21-32)
[2018-04-25 10:11] LABS: ANION GAP 3 MMOL/L (8-16)
--- NOTE | 2018-04-25 12:28 | PN ---
Progress Note (short form) - Note Progress Note: PULMONARY Breathing continues to improve. Less cough and wheezing. Vital Signs Period Temp Pulse Resp BP Sys/Domínguez Pulse Ox Last 24 Hr 97.6 F-99.4 F 78-88 20-22 111-120/53-64 94-98 Gen: less tachypneic Heart: RRR Lung: less wheezes, rhonchi Abd: soft, nontender Ext: no edema CBC, BMP 04/25/18 07:15 04/25/18 07:15 Active Medications Acetaminophen (Tylenol -) 650 mg PO Q6H PRN PRN Reason: FEVER Last Admin: 04/24/18 21:30 Dose: 650 mg Albuterol Sulfate (Ventolin 0.083% Nebulizer Soln -) 1 amp NEB Q4H PRN PRN Reason: SHORT OF BREATH/WHEEZING Albuterol/Ipratropium (Duoneb -) 1 amp NEB RQID [facility] Last Admin: 04/25/18 07:45 Dose: 1 amp Aspirin (Asa -) 81 mg PO DAILY [facility] Last Admin: 04/25/18 09:49 Dose: 81 mg Escitalopram Oxalate (Lexapro -) 10 mg PO DAILY [facility] Last Admin: 04/25/18 09:51 Dose: 10 mg Furosemide (Lasix -) 20 mg PO DAILY [facility] Last Admin: 04/25/18 09:51 Dose: 20 mg Heparin Sodium (Porcine) (Heparin -) 5,000 unit SQ BID [facility] Last Admin: 04/25/18 09:50 Dose: 5,000 unit Levothyroxine Sodium (Synthroid -) 100 mcg PO DAILY@0700 [facility] Last Admin: 04/25/18 06:24 Dose: 100 mcg Losartan Potassium (Cozaar -) 25 mg PO DAILY [facility] Last Admin: 04/25/18 09:50 Dose: 25 mg Methylprednisolone Sodium Succinate (Solu-Medrol -) 40 mg IVPUSH Q8H-IV [facility] Last Admin: 04/25/18 09:51 Dose: 40 mg Montelukast Sodium (Singulair -) 5 mg PO HS [facility] Last Admin: 04/24/18 21:31 Dose: 5 mg Potassium Chloride (K-Dur -) 10 meq PO DAILY [facility] Last Admin: 04/25/18 09:51 Dose: 10 meq Ranitidine HCl (Zantac -) 150 mg PO BID [facility] Last Admin: 04/25/18 09:52 Dose: 150 mg Roflumilast (Daliresp -) 500 mcg PO DAILY [facility] Last Admin: 04/25/18 09:50 Dose: 500 mcg Rosuvastatin Calcium (Crestor -) 5 mg PO HS [facility] Last Admin: 04/24/18 21:30 Dose: 5 mg A/P Acute on Chronic Hypoxic and Hypercapneic Respiratory Failure improving Acute COPD Exacerbation Altered Mental Status improving LV Diastolic Dysfunction HTN Hyperlipidemia Hypothyroidism - will decrease medrol to q12h - inhaled bronchodilators - O2 to keep SpO2 88-92% - BiPAP at night and PRN during day - daliresp - continue lasix - rehab/PT - DVT prophylaxis
[2018-04-25] MEDS: MONTELUKAST NA 5 MG TAB.CHEW PO SCH (22:10)
[2018-04-25] MEDS: ROSUVASTATIN CA 5 MG TABLET (FP) PO SCH (22:10)
[2018-04-26] MEDS: LEVOTHYROXINE NA 100 MCG TABLET (FP) PO SCH (06:22)
[2018-04-26] MEDS: ALBUTEROL SO4 2.5/IPRATROPIUM 0.5 INH SOL 3 ML VIAL.NEB. NEB SCH ×4 (08:45→21:35)
--- NOTE | 2018-04-26 09:48 | PN ---
Progress Note, Physician History of Present Illness: Pt w/o SOB, CP, palpitations, abd pain. Pt is on O2 supplementation via NC. - Current Medication List Current Medications: Active Medications Acetaminophen (Tylenol -) 650 mg PO Q6H PRN PRN Reason: FEVER Last Admin: 04/24/18 21:30 Dose: 650 mg Albuterol Sulfate (Ventolin 0.083% Nebulizer Soln -) 1 amp NEB Q4H PRN PRN Reason: SHORT OF BREATH/WHEEZING Albuterol/Ipratropium (Duoneb -) 1 amp NEB RQID [facility] Last Admin: 04/25/18 20:08 Dose: 1 amp Aspirin (Asa -) 81 mg PO DAILY [facility] Last Admin: 04/25/18 09:49 Dose: 81 mg Escitalopram Oxalate (Lexapro -) 10 mg PO DAILY [facility] Last Admin: 04/25/18 09:51 Dose: 10 mg Furosemide (Lasix -) 20 mg PO DAILY [facility] Last Admin: 04/25/18 09:51 Dose: 20 mg Heparin Sodium (Porcine) (Heparin -) 5,000 unit SQ BID [facility] Last Admin: 04/25/18 22:11 Dose: Not Given Levothyroxine Sodium (Synthroid -) 100 mcg PO DAILY@0700 [facility] Last Admin: 04/26/18 06:22 Dose: 100 mcg Losartan Potassium (Cozaar -) 25 mg PO DAILY [facility] Last Admin: 04/25/18 09:50 Dose: 25 mg Methylprednisolone Sodium Succinate (Solu-Medrol -) 40 mg IVPUSH BID [facility] Last Admin: 04/25/18 22:11 Dose: 40 mg Montelukast Sodium (Singulair -) 5 mg PO HS [facility] Last Admin: 04/25/18 22:10 Dose: 5 mg Potassium Chloride (K-Dur -) 10 meq PO DAILY [facility] Last Admin: 04/25/18 09:51 Dose: 10 meq Ranitidine HCl (Zantac -) 150 mg PO BID [facility] Last Admin: 04/25/18 22:11 Dose: 150 mg Roflumilast (Daliresp -) 500 mcg PO DAILY [facility] Last Admin: 04/25/18 09:50 Dose: 500 mcg Rosuvastatin Calcium (Crestor -) 5 mg PO HS [facility] Last Admin: 04/25/18 22:10 Dose: 5 mg - Objective Vital Signs: Vital Signs Temperature 97.8 F 04/26/18 06:00 Pulse Rate 74 04/26/18 06:00 Respiratory Rate 20 04/26/18 06:00 Blood Pressure 93/55 L 04/26/18 06:00 O2 Sat by Pulse Oximetry (%) 98 04/25/18 21:00 Constitutional: Yes: No Distress, Calm Cardiovascular: Yes: Regular Rate and Rhythm, S1, S2 Respiratory: Yes: Regular, Rhonchi, Wheezes Gastrointestinal: Yes: Normal Bowel Sounds, Soft, Abdomen, Obese. No: Tenderness Edema: No Neurological: Yes: Alert, Oriented Labs: CBC, BMP 04/25/18 07:15 04/25/18 07:15 Problem List - Problems (1) Acute on chronic respiratory failure with hypoxia and hypercapnia Code(s): J96.21 - ACUTE AND CHRONIC RESPIRATORY FAILURE WITH HYPOXIA; J96.22 - ACUTE AND CHRONIC RESPIRATORY FAILURE WITH HYPERCAPNIA (2) Altered mental status Code(s): R41.82 - ALTERED MENTAL STATUS, UNSPECIFIED (3) Sleep apnea Code(s): G47.30 - SLEEP APNEA, UNSPECIFIED (4) CHF (congestive heart failure) Code(s): I50.9 - HEART FAILURE, UNSPECIFIED (5) Hyperlipidemia Code(s): E78.5 - HYPERLIPIDEMIA, UNSPECIFIED Qualifiers: Hyperlipidemia type: pure hypercholesterolemia Qualified Code(s): E78.00 - Pure hypercholesterolemia, unspecified; E78.0 - Pure hypercholesterolemia (6) Hypertension Code(s): I10 - ESSENTIAL (PRIMARY) HYPERTENSION Qualifiers: Hypertension type: essential hypertension Qualified Code(s): I10 - Essential (primary) hypertension (7) Hypothyroidism Code(s): E03.9 - HYPOTHYROIDISM, UNSPECIFIED Qualifiers: Hypothyroidism type: unspecified Qualified Code(s): E03.9 - Hypothyroidism , unspecified (8) Fall Code(s): W19.XXXA - UNSPECIFIED FALL, INITIAL ENCOUNTER Qualifiers: Encounter type: initial encounter Qualified Code(s): W19.XXXA - Unspecified fall, initial encounter (9) Hypokalemia Code(s): E87.6 - HYPOKALEMIA (10) Leukocytosis Code(s): D72.829 - ELEVATED WHITE BLOOD CELL COUNT, UNSPECIFIED Assessment/Plan Admit to ICU, transferred to medical floor/ CCM consult is appreciated; to cont current Rx. Pulmonary consult is appreciated. IV steroids -to taper to Q12H, same dose Continue BIPAP at night and PRN during the day Labs in AM. DVT prophylaxis GI prophylaxis Case was d/w pt's nurse.
[2018-04-26] MEDS: HEPARIN NA (PORCINE) 5,000 UNITS/ML 1ML VIAL SQ SCH (10:30)
[2018-04-26] MEDS: POTASSIUM CHLORIDE TABS 10 MEQ TABLET.ER (FP) PO SCH (10:30)
[2018-04-26] MEDS: ASPIRIN 81 MG CHEWABLE TABLETS PO SCH (10:30)
[2018-04-26] MEDS: RANITIDINE HCL 150 MG TABLET (FP) PO SCH ×2 (10:30→22:57)
[2018-04-26] MEDS: FUROSEMIDE 20 MG TABLET (FP) PO SCH (10:30)
[2018-04-26] MEDS: ESCITALOPRAM OXALATE 10 MG TABLET (FP) PO SCH (10:30)
[2018-04-26] MEDS: methylPREDNISolone NA SUCC 40 MG/1 ML VIAL IVPUSH SCH ×2 (10:30→22:57)
[2018-04-26] MEDS: LOSARTAN POTASSIUM 25 MG TABLET PO SCH (10:30)
[2018-04-26] MEDS ORDERED: PT OWN MED DRAWER 7, Y5N ONE (10:33)
[2018-04-26] MEDS: ROFLUMILAST 500 MCG TABLET PO SCH (10:34)
[2018-04-26 15:01] VITALS: BMI 31.3
--- NOTE | 2018-04-26 15:05 | PN ---
Progress Note (short form) - Note Progress Note: Breathing continues to slowly improve. Less cough and wheezing. Used NIPPV overnight. Intake & Output 04/23/18 04/24/18 04/25/18 04/26/18 23:59 23:59 23:59 23:59 Intake Total 8487 902 8960 500 Balance 4528 289 8214 500 Weight 151 lb 8 oz 152 lb 3.2 oz 153 lb 9.6 oz 155 lb 2 oz Last Vital Signs Temp Pulse Resp BP Pulse Ox 98.4 F 84 20 115/59 L 98 04/26/18 10:00 04/26/18 10:00 04/26/18 10:00 04/26/18 10:00 04/26/18 09:00 Active Medications Acetaminophen (Tylenol -) 650 mg PO Q6H PRN PRN Reason: FEVER Last Admin: 04/24/18 21:30 Dose: 650 mg Albuterol Sulfate (Ventolin 0.083% Nebulizer Soln -) 1 amp NEB Q4H PRN PRN Reason: SHORT OF BREATH/WHEEZING Albuterol/Ipratropium (Duoneb -) 1 amp NEB RQID [facility] Last Admin: 04/26/18 08:45 Dose: 1 amp Aspirin (Asa -) 81 mg PO DAILY [facility] Last Admin: 04/26/18 10:30 Dose: 81 mg Escitalopram Oxalate (Lexapro -) 10 mg PO DAILY [facility] Last Admin: 04/26/18 10:30 Dose: 10 mg Furosemide (Lasix -) 20 mg PO DAILY [facility] Last Admin: 04/26/18 10:30 Dose: 20 mg Levothyroxine Sodium (Synthroid -) 100 mcg PO DAILY@0700 [facility] Last Admin: 04/26/18 06:22 Dose: 100 mcg Losartan Potassium (Cozaar -) 25 mg PO DAILY [facility] Last Admin: 04/26/18 10:30 Dose: 25 mg Methylprednisolone Sodium Succinate (Solu-Medrol -) 40 mg IVPUSH BID [facility] Last Admin: 04/26/18 10:30 Dose: 40 mg Montelukast Sodium (Singulair -) 5 mg PO HS [facility] Last Admin: 04/25/18 22:10 Dose: 5 mg Potassium Chloride (K-Dur -) 10 meq PO DAILY [facility] Last Admin: 04/26/18 10:30 Dose: 10 meq Ranitidine HCl (Zantac -) 150 mg PO BID [facility] Last Admin: 04/26/18 10:30 Dose: 150 mg Roflumilast (Daliresp -) 500 mcg PO DAILY [facility] Last Admin: 04/26/18 10:34 Dose: 500 mcg Rosuvastatin Calcium (Crestor -) 5 mg PO HS [facility] Last Admin: 04/25/18 22:10 Dose: 5 mg Gen: less tachypneic Heart: RRR Lung: less wheezes, rhonchi Abd: soft, nontender Ext: no edema A/P Acute on Chronic Hypoxic and Hypercapneic Respiratory Failure improving Acute COPD Exacerbation Altered Mental Status improving LV Diastolic Dysfunction HTN Hyperlipidemia Hypothyroidism - Will wean Medrol again tomorrow - inhaled bronchodilators - O2 to keep SpO2 88-92% - NIPPV at night and PRN during day - daliresp - continue lasix - rehab/PT - DVT prophylaxis Dr Jennings
[2018-04-26] MEDS: MONTELUKAST NA 5 MG TAB.CHEW PO SCH (22:57)
[2018-04-26] MEDS: ROSUVASTATIN CA 5 MG TABLET (FP) PO SCH (22:57)
[2018-04-27] MEDS: LEVOTHYROXINE NA 100 MCG TABLET (FP) PO SCH (06:12)
[2018-04-27 07:10] LABS: HEMATOCRIT 33.5 % (32.4-45.2); HEMOGLOBIN 10.7 GM/dL (10.7-15.3); MCHC 31.8 g/dl (32.0-36.0); MEAN CELL VOLUME 94.2 fl (80-96); MEAN PLT VOLUME 9.3 fl (7.5-11.1); PLATELET COUNT 90 K/MM3 (134-434); RBC 3.55 M/mm3 (3.60-5.2); WHITE BLOOD COUNT 6.1 K/mm3 (4.0-10.0)
[2018-04-27 07:31] LABS: ANION GAP 7 MMOL/L (8-16); BLOOD UREA NITROGEN 22 mg/dL (7-18); CHLORIDE 88 mmol/L (98-107); CO2 45 mmol/L (21-32); CREATININE 0.4 mg/dL (0.55-1.3); GLUCOSE,RANDOM 143 mg/dL (74-106); POTASSIUM 4.1 mmol/L (3.5-5.1); SODIUM 139 mmol/L (136-145)
[2018-04-27] MEDS: ALBUTEROL SO4 2.5/IPRATROPIUM 0.5 INH SOL 3 ML VIAL.NEB. NEB SCH ×4 (09:00→19:46)
[2018-04-27] MEDS ORDERED: PT OWN MED DRAWER 7, Y5N ONE ×2 (10:15→22:02)
[2018-04-27] MEDS: FUROSEMIDE 20 MG TABLET (FP) PO SCH (10:17)
[2018-04-27] MEDS: methylPREDNISolone NA SUCC 40 MG/1 ML VIAL IVPUSH SCH ×2 (10:17→22:10)
[2018-04-27] MEDS: ROFLUMILAST 500 MCG TABLET PO SCH (10:17)
[2018-04-27] MEDS: RANITIDINE HCL 150 MG TABLET (FP) PO SCH ×2 (10:17→22:10)
[2018-04-27] MEDS: ESCITALOPRAM OXALATE 10 MG TABLET (FP) PO SCH (10:17)
[2018-04-27] MEDS: LOSARTAN POTASSIUM 25 MG TABLET PO SCH (10:17)
[2018-04-27] MEDS: POTASSIUM CHLORIDE TABS 10 MEQ TABLET.ER (FP) PO SCH (10:17)
[2018-04-27] MEDS: ASPIRIN 81 MG CHEWABLE TABLETS PO SCH (10:17)
--- NOTE | 2018-04-27 14:00 | PN ---
Progress Note, Physician History of Present Illness: Pt w/o SOB, CP, palpitations, abd pain. Pt is on O2 supplementation via NC. Pt is sitting in the chair w/o discomfort. - Current Medication List Current Medications: Active Medications Acetaminophen (Tylenol -) 650 mg PO Q6H PRN PRN Reason: FEVER Last Admin: 04/24/18 21:30 Dose: 650 mg Albuterol Sulfate (Ventolin 0.083% Nebulizer Soln -) 1 amp NEB Q4H PRN PRN Reason: SHORT OF BREATH/WHEEZING Last Admin: 04/27/18 06:30 Dose: 1 amp Albuterol/Ipratropium (Duoneb -) 1 amp NEB RQID [facility] Last Admin: 04/27/18 09:00 Dose: 1 amp Aspirin (Asa -) 81 mg PO DAILY [facility] Last Admin: 04/27/18 10:17 Dose: 81 mg Escitalopram Oxalate (Lexapro -) 10 mg PO DAILY [facility] Last Admin: 04/27/18 10:17 Dose: 10 mg Furosemide (Lasix -) 20 mg PO DAILY [facility] Last Admin: 04/27/18 10:17 Dose: 20 mg Levothyroxine Sodium (Synthroid -) 100 mcg PO DAILY@0700 [facility] Last Admin: 04/27/18 06:12 Dose: 100 mcg Losartan Potassium (Cozaar -) 25 mg PO DAILY [facility] Last Admin: 04/27/18 10:17 Dose: 25 mg Methylprednisolone Sodium Succinate (Solu-Medrol -) 40 mg IVPUSH BID [facility] Last Admin: 04/27/18 10:17 Dose: 40 mg Montelukast Sodium (Singulair -) 5 mg PO HS [facility] Last Admin: 04/26/18 22:57 Dose: 5 mg Potassium Chloride (K-Dur -) 10 meq PO DAILY [facility] Last Admin: 04/27/18 10:17 Dose: 10 meq Ranitidine HCl (Zantac -) 150 mg PO BID [facility] Last Admin: 04/27/18 10:17 Dose: 150 mg Roflumilast (Daliresp -) 500 mcg PO DAILY [facility] Last Admin: 04/27/18 10:17 Dose: 500 mcg Rosuvastatin Calcium (Crestor -) 5 mg PO HS [facility] Last Admin: 04/26/18 22:57 Dose: 5 mg - Objective Vital Signs: Vital Signs Temperature 98.3 F 04/27/18 06:00 Pulse Rate 71 04/27/18 06:00 Respiratory Rate 22 H 04/27/18 06:00 Blood Pressure 136/77 04/27/18 06:00 O2 Sat by Pulse Oximetry (%) 98 04/27/18 09:30 Constitutional: Yes: No Distress, Calm Cardiovascular: Yes: Regular Rate and Rhythm, S1, S2 Respiratory: Yes: Regular, Rhonchi (scattered with deep breathing), Wheezes ( scattered with deep breathing) Gastrointestinal: Yes: Normal Bowel Sounds, Soft. No: Tenderness Edema: Yes Edema: LLE: Trace, RLE: Trace Neurological: Yes: Alert, Oriented Labs: CBC, BMP 04/27/18 06:30 04/27/18 06:30 Problem List - Problems (1) Acute on chronic respiratory failure with hypoxia and hypercapnia Code(s): J96.21 - ACUTE AND CHRONIC RESPIRATORY FAILURE WITH HYPOXIA; J96.22 - ACUTE AND CHRONIC RESPIRATORY FAILURE WITH HYPERCAPNIA (2) Altered mental status Code(s): R41.82 - ALTERED MENTAL STATUS, UNSPECIFIED (3) Sleep apnea Code(s): G47.30 - SLEEP APNEA, UNSPECIFIED (4) CHF (congestive heart failure) Code(s): I50.9 - HEART FAILURE, UNSPECIFIED (5) Hyperlipidemia Code(s): E78.5 - HYPERLIPIDEMIA, UNSPECIFIED Qualifiers: Hyperlipidemia type: pure hypercholesterolemia Qualified Code(s): E78.00 - Pure hypercholesterolemia, unspecified; E78.0 - Pure hypercholesterolemia (6) Hypertension Code(s): I10 - ESSENTIAL (PRIMARY) HYPERTENSION Qualifiers: Hypertension type: essential hypertension Qualified Code(s): I10 - Essential (primary) hypertension (7) Hypothyroidism Code(s): E03.9 - HYPOTHYROIDISM, UNSPECIFIED Qualifiers: Hypothyroidism type: unspecified Qualified Code(s): E03.9 - Hypothyroidism , unspecified (8) Fall Code(s): W19.XXXA - UNSPECIFIED FALL, INITIAL ENCOUNTER Qualifiers: Encounter type: initial encounter Qualified Code(s): W19.XXXA - Unspecified fall, initial encounter (9) Hypokalemia Code(s): E87.6 - HYPOKALEMIA (10) Leukocytosis Code(s): D72.829 - ELEVATED WHITE BLOOD CELL COUNT, UNSPECIFIED Assessment/Plan Admit to ICU, transferred to medical floor. CCM consult is appreciated; to cont current Rx. Pulmonary consult is appreciated. IV steroids -taperred to Q12H, same dose Continue BIPAP at night and PRN during the day DVT prophylaxis GI prophylaxis Case was d/w pt's nurse. DC planning tomorrow (d/w pt and pt's nurse).
--- NOTE | 2018-04-27 14:01 | PN ---
Progress Note, Physician History of Present Illness: pulmonary alert,comfortable,-resp distress,o2 sat 95% on nasal cannula - Current Medication List Current Medications: Active Medications Acetaminophen (Tylenol -) 650 mg PO Q6H PRN PRN Reason: FEVER Last Admin: 04/24/18 21:30 Dose: 650 mg Albuterol Sulfate (Ventolin 0.083% Nebulizer Soln -) 1 amp NEB Q4H PRN PRN Reason: SHORT OF BREATH/WHEEZING Last Admin: 04/27/18 06:30 Dose: 1 amp Albuterol/Ipratropium (Duoneb -) 1 amp NEB RQID [facility] Last Admin: 04/27/18 09:00 Dose: 1 amp Aspirin (Asa -) 81 mg PO DAILY [facility] Last Admin: 04/27/18 10:17 Dose: 81 mg Escitalopram Oxalate (Lexapro -) 10 mg PO DAILY [facility] Last Admin: 04/27/18 10:17 Dose: 10 mg Furosemide (Lasix -) 20 mg PO DAILY [facility] Last Admin: 04/27/18 10:17 Dose: 20 mg Levothyroxine Sodium (Synthroid -) 100 mcg PO DAILY@0700 [facility] Last Admin: 04/27/18 06:12 Dose: 100 mcg Losartan Potassium (Cozaar -) 25 mg PO DAILY [facility] Last Admin: 04/27/18 10:17 Dose: 25 mg Methylprednisolone Sodium Succinate (Solu-Medrol -) 40 mg IVPUSH BID [facility] Last Admin: 04/27/18 10:17 Dose: 40 mg Montelukast Sodium (Singulair -) 5 mg PO HS [facility] Last Admin: 04/26/18 22:57 Dose: 5 mg Potassium Chloride (K-Dur -) 10 meq PO DAILY [facility] Last Admin: 04/27/18 10:17 Dose: 10 meq Ranitidine HCl (Zantac -) 150 mg PO BID [facility] Last Admin: 04/27/18 10:17 Dose: 150 mg Roflumilast (Daliresp -) 500 mcg PO DAILY [facility] Last Admin: 04/27/18 10:17 Dose: 500 mcg Rosuvastatin Calcium (Crestor -) 5 mg PO HS [facility] Last Admin: 04/26/18 22:57 Dose: 5 mg - Objective Vital Signs: Vital Signs Temperature 98.3 F 04/27/18 06:00 Pulse Rate 71 04/27/18 06:00 Respiratory Rate 22 H 04/27/18 06:00 Blood Pressure 136/77 04/27/18 06:00 O2 Sat by Pulse Oximetry (%) 98 04/27/18 09:30 Constitutional: Yes: Well Nourished, Calm Eyes: Yes: WNL HENT: Yes: WNL Neck: Yes: WNL Cardiovascular: Yes: Regular Rate and Rhythm, S1, S2 Respiratory: Yes: Diminished (occ wheeze) Gastrointestinal: Yes: Normal Bowel Sounds, Soft Extremities: Yes: WNL Edema: No Labs: CBC, BMP 04/27/18 06:30 04/27/18 06:30 Problem List - Problems (1) Altered mental status Code(s): R41.82 - ALTERED MENTAL STATUS, UNSPECIFIED (2) Acute on chronic respiratory failure with hypoxia and hypercapnia Code(s): J96.21 - ACUTE AND CHRONIC RESPIRATORY FAILURE WITH HYPOXIA; J96.22 - ACUTE AND CHRONIC RESPIRATORY FAILURE WITH HYPERCAPNIA (3) CHF (congestive heart failure) Code(s): I50.9 - HEART FAILURE, UNSPECIFIED (4) COPD exacerbation Code(s): J44.1 - CHRONIC OBSTRUCTIVE PULMONARY DISEASE W (ACUTE) EXACERBATION (5) Diastolic dysfunction Code(s): I51.9 - HEART DISEASE, UNSPECIFIED (6) Hyperlipidemia Code(s): E78.5 - HYPERLIPIDEMIA, UNSPECIFIED Qualifiers: Hyperlipidemia type: pure hypercholesterolemia Qualified Code(s): E78.00 - Pure hypercholesterolemia, unspecified; E78.0 - Pure hypercholesterolemia (7) Hypertension Code(s): I10 - ESSENTIAL (PRIMARY) HYPERTENSION Qualifiers: Hypertension type: essential hypertension Qualified Code(s): I10 - Essential (primary) hypertension (8) Hypothyroidism Code(s): E03.9 - HYPOTHYROIDISM, UNSPECIFIED Qualifiers: Hypothyroidism type: unspecified Qualified Code(s): E03.9 - Hypothyroidism , unspecified (9) Shortness of breath Code(s): R06.02 - SHORTNESS OF BREATH (10) Sleep apnea Code(s): G47.30 - SLEEP APNEA, UNSPECIFIED Assessment/Plan A/P Acute on Chronic Hypoxic and Hypercapneic Respiratory Failure improving Acute COPD Exacerbation improving Altered Mental Status improved LV Diastolic Dysfunction HTN Hyperlipidemia Hypothyroidism - continue medrol - inhaled bronchodilators - O2 to keep SpO2 88-92% - BiPAP at night and PRN during day - aram MEDEIROS
[2018-04-27] MEDS: ACETAMINOPHEN 325 MG TABLET (FP) PO PRN (22:09)
[2018-04-27] MEDS: MONTELUKAST NA 5 MG TAB.CHEW PO SCH (22:10)
[2018-04-27] MEDS: ROSUVASTATIN CA 5 MG TABLET (FP) PO SCH (22:10)
[2018-04-28] MEDS: LEVOTHYROXINE NA 100 MCG TABLET (FP) PO SCH (06:32)
[2018-04-28] MEDS: ALBUTEROL SO4 2.5/IPRATROPIUM 0.5 INH SOL 3 ML VIAL.NEB. NEB SCH ×2 (07:25→13:00)
[2018-04-28] MEDS ORDERED: PT OWN MED DRAWER 7, Y5N ONE (09:15)
[2018-04-28] MEDS: POTASSIUM CHLORIDE TABS 10 MEQ TABLET.ER (FP) PO SCH (09:16)
[2018-04-28] MEDS: LOSARTAN POTASSIUM 25 MG TABLET PO SCH (09:16)
[2018-04-28] MEDS: RANITIDINE HCL 150 MG TABLET (FP) PO SCH (09:16)
[2018-04-28] MEDS: FUROSEMIDE 20 MG TABLET (FP) PO SCH (09:16)
[2018-04-28] MEDS: ESCITALOPRAM OXALATE 10 MG TABLET (FP) PO SCH (09:17)
[2018-04-28] MEDS: ASPIRIN 81 MG CHEWABLE TABLETS PO SCH (09:17)
[2018-04-28] MEDS: ROFLUMILAST 500 MCG TABLET PO SCH (09:17)
[2018-04-28] MEDS: methylPREDNISolone NA SUCC 40 MG/1 ML VIAL IVPUSH SCH (09:18)
[2018-04-28 10:29] VITALS: PULSE 75
--- NOTE | 2018-04-28 11:19 | DS ---
Physical Examination Vital Signs: Vital Signs Temperature 97.8 F 04/28/18 10:00 Pulse Rate 75 04/28/18 10:00 Respiratory Rate 18 04/28/18 10:00 Blood Pressure 116/47 L 04/28/18 10:00 O2 Sat by Pulse Oximetry (%) 99 04/28/18 09:00 Findings/Remarks: Pt w/o SOB, CP, palpitations, abd pain, diarrhea. Pt is comfortable using O2 supplementation via S during the day and BIPAP at night Constitutional: Yes: No Distress, Calm Cardiovascular: Yes: Regular Rate and Rhythm, S1, S2 Respiratory: Yes: Regular, Other (coarse BS bilat.). No: Rales Gastrointestinal: Yes: Normal Bowel Sounds, Soft. No: Tenderness Edema: No Neurological: Yes: Alert, Oriented Labs: CBC, BMP 04/27/18 06:30 04/27/18 06:30 Discharge Summary Reason For Visit: ACUTE RESPIRATORY FAILURE Current Active Problems Acute and chronic respiratory failure with hypoxia (Acute) Acute on chronic respiratory failure with hypoxia and hypercapnia (Acute) Altered mental status (Acute) Hypokalemia (Acute) Leukocytosis (Acute) Sleep apnea (Acute) Procedures: Principal: CXR Hospital Course: Pt came to ER by EMS after was found to have at home. In ER she was found to be in Acute Hypoxic and Hypercapnic Respiratory failure, was placed on BIPAP and started on Solu-medrol IV, with improvement in her condition; pt was admitted to ICU. Pt condition improved and steroid was slowly taper. Pt to be DC 'ed home on PO Steroids, slow taperring, and follow-up with PCP and Pulmonary. Condition: Critical - Instructions Diet, Activity, Other Instructions: Diet: NCS, Low salt, Low cholesterol Capo Prednisone starting tomorrow: 8 tab daily for 2 days, then 7 tab daily for 2 days, then 6 tab daily for 2 days, then 5 tab daily for 2 days, then 4 tab daily for 2 days, then 3 tab daily for 2 days, then 2 tabs daily until otherwise instructed by PCP or Pulmonary doctor. Follow-up with PCP and Pulmonary doctor as recommended. Referrals: Laura Navarro MD [Primary Care Provider] - (within a week) Max Parrish MD [Staff Physician] - (in 1-2 weeks) Disposition: HOME - Home Medications Comprehensive Discharge Medication List: Ambulatory Orders See DC instructions
--- NOTE | 2018-04-28 12:17 | PN ---
Progress Note, Physician History of Present Illness: pulmonary alert,no distress,-sob,oob-chair - Current Medication List Current Medications: Active Medications Acetaminophen (Tylenol -) 650 mg PO Q6H PRN PRN Reason: FEVER Last Admin: 04/27/18 22:09 Dose: 650 mg Albuterol Sulfate (Ventolin 0.083% Nebulizer Soln -) 1 amp NEB Q4H PRN PRN Reason: SHORT OF BREATH/WHEEZING Last Admin: 04/27/18 06:30 Dose: 1 amp Albuterol/Ipratropium (Duoneb -) 1 amp NEB RQID [facility] Last Admin: 04/28/18 07:25 Dose: 1 amp Aspirin (Asa -) 81 mg PO DAILY [facility] Last Admin: 04/28/18 09:17 Dose: 81 mg Escitalopram Oxalate (Lexapro -) 10 mg PO DAILY [facility] Last Admin: 04/28/18 09:17 Dose: 10 mg Furosemide (Lasix -) 20 mg PO DAILY [facility] Last Admin: 04/28/18 09:16 Dose: 20 mg Levothyroxine Sodium (Synthroid -) 100 mcg PO DAILY@0700 [facility] Last Admin: 04/28/18 06:32 Dose: 100 mcg Losartan Potassium (Cozaar -) 25 mg PO DAILY [facility] Last Admin: 04/28/18 09:16 Dose: 25 mg Montelukast Sodium (Singulair -) 5 mg PO HS [facility] Last Admin: 04/27/18 22:10 Dose: 5 mg Potassium Chloride (K-Dur -) 10 meq PO DAILY [facility] Last Admin: 04/28/18 09:16 Dose: 10 meq Prednisone (Deltasone -) 0 mg PO DAILY [facility]; Taper Stop: 05/13/18 09:59 Ranitidine HCl (Zantac -) 150 mg PO BID [facility] Last Admin: 04/28/18 09:16 Dose: 150 mg Roflumilast (Daliresp -) 500 mcg PO DAILY [facility] Last Admin: 04/28/18 09:17 Dose: 500 mcg Rosuvastatin Calcium (Crestor -) 5 mg PO HS [facility] Last Admin: 04/27/18 22:10 Dose: 5 mg - Objective Vital Signs: Vital Signs Temperature 97.8 F 04/28/18 10:00 Pulse Rate 75 04/28/18 10:00 Respiratory Rate 18 04/28/18 10:00 Blood Pressure 116/47 L 04/28/18 10:00 O2 Sat by Pulse Oximetry (%) 99 04/28/18 09:00 Constitutional: Yes: Well Nourished, Calm Eyes: Yes: WNL HENT: Yes: WNL Neck: Yes: WNL Cardiovascular: Yes: Regular Rate and Rhythm, S1, S2 Respiratory: Yes: Diminished Gastrointestinal: Yes: Normal Bowel Sounds, Soft Extremities: Yes: WNL Edema: No Labs: CBC, BMP Problem List - Problems (1) Altered mental status Code(s): R41.82 - ALTERED MENTAL STATUS, UNSPECIFIED (2) Acute on chronic respiratory failure with hypoxia and hypercapnia Code(s): J96.21 - ACUTE AND CHRONIC RESPIRATORY FAILURE WITH HYPOXIA; J96.22 - ACUTE AND CHRONIC RESPIRATORY FAILURE WITH HYPERCAPNIA (3) CHF (congestive heart failure) Code(s): I50.9 - HEART FAILURE, UNSPECIFIED (4) COPD exacerbation Code(s): J44.1 - CHRONIC OBSTRUCTIVE PULMONARY DISEASE W (ACUTE) EXACERBATION (5) Diastolic dysfunction Code(s): I51.9 - HEART DISEASE, UNSPECIFIED (6) Hyperlipidemia Code(s): E78.5 - HYPERLIPIDEMIA, UNSPECIFIED Qualifiers: Hyperlipidemia type: pure hypercholesterolemia Qualified Code(s): E78.00 - Pure hypercholesterolemia, unspecified; E78.0 - Pure hypercholesterolemia (7) Hypertension Code(s): I10 - ESSENTIAL (PRIMARY) HYPERTENSION Qualifiers: Hypertension type: essential hypertension Qualified Code(s): I10 - Essential (primary) hypertension (8) Hypothyroidism Code(s): E03.9 - HYPOTHYROIDISM, UNSPECIFIED Qualifiers: Hypothyroidism type: unspecified Qualified Code(s): E03.9 - Hypothyroidism , unspecified (9) Shortness of breath Code(s): R06.02 - SHORTNESS OF BREATH (10) Sleep apnea Code(s): G47.30 - SLEEP APNEA, UNSPECIFIED Assessment/Plan A/P Acute on Chronic Hypoxic and Hypercapneic Respiratory Failure improving Acute COPD Exacerbation improving Altered Mental Status improved LV Diastolic Dysfunction HTN Hyperlipidemia Hypothyroidism - prednisone - inhaled bronchodilators - O2 to keep SpO2 88-92% - Trilogy at home - aram MEDEIROS
[2018-04-28 14:44] VITALS: BP 111/67; TEMP 98.2
[2018-04-29] MEDS ORDERED: predniSONE 20 MG TABLET (UD) PO SCH (10:00)
[2018-04-29] MEDS ORDERED: predniSONE 5 MG TABLET (UD) PO SCH (10:00)
[2018-05-03] MEDS ORDERED: predniSONE 10 MG TABLET (UD) PO SCH (10:00)
[2018-05-07] MEDS ORDERED: predniSONE 10 MG TABLET (UD) PO SCH (10:00)
[2018-05-09] MEDS ORDERED: predniSONE 10 MG, predniSONE 5 MG PO SCH (10:00)
[2018-05-11] MEDS ORDERED: predniSONE 10 MG TABLET (UD) PO SCH (10:00)
== END 2018-04-28 15:40 | disposition home or self-care (01) | DRG 189 ==
LOC: JER 15:29 → JERBED 18:56 → JICU 23:26 → J5S 04-22 14:00
PROVIDERS: ADMIT Specialist; ATTEND Specialist
PROC: 5A09457 Assistance with Respiratory Ventilation, 24-96 Consecutive Hours, Continuous Positive Airway Pressure (ICD-10-PCS; principal; 2018-04-20)
DX: J96.21 Acute and chronic respiratory failure with hypoxia (principal); J44.1 Chronic obstructive pulmonary disease with (acute) exacerbation; I50.32 Chronic diastolic (congestive) heart failure; J96.22 Acute and chronic respiratory failure with hypercapnia; Z99.81 Dependence on supplemental oxygen; E03.9 Hypothyroidism, unspecified; G47.33 Obstructive sleep apnea (adult) (pediatric); I11.0 Hypertensive heart disease with heart failure; I50.9 Heart failure, unspecified; Z88.0 Allergy status to penicillin; E78.5 Hyperlipidemia, unspecified; F32.9 Major depressive disorder, single episode, unspecified; F41.9 Anxiety disorder, unspecified; E87.6 Hypokalemia; I25.10 Atherosclerotic heart disease of native coronary artery without angina pectoris
CPT/HCPCS: 36415; 36600; 71045-TC-FY; 80048; 80053; 82375; 82550; 82803; 83050; 83735; 83880; 84484; 85025; 85027; 90688; 93005; 93010; 94640; 94660; 97116-GP; 97161-GP; 99285-25; G0008; J1644

== ENCOUNTER 2018-05-06 09:34 | Inpatient (IN) | payer OTHER ==
[2018-05-06] MEDS ORDERED: methylPREDNISolone NA SUCC 125 MG/2 ML VIAL IVPB ONE (10:20)
--- NOTE | 2018-05-06 10:26 | PDOC ---
History of Present Illness - General Chief Complaint: Shortness of Breath Stated Complaint: Shortness of Breath Time Seen by Provider: 05/06/18 10:05 History Source: Patient Exam Limitations: No Limitations - History of Present Illness Initial Comments: 05/06/18 10:21 Patient is a 57F with history of COPD with multiple admissions for respiratory failure, CHF, HLD, HTN, hypothyroidism and NAVDEEP here today complaining of shortness of breath, worsening over the past 3 days. Patient also reports falling three days ago, stating that she tripped over a bump in the floor. Denies LOC, denies hitting her head, states that she landed on the right side. Denies fevers, chills, nausea, vomiting. Her reports that she's been more confused lately as well and that she was satting in the 70s on her home bipap machine, prompting the patient to come in today. No leg swelling. Patient reports compliance with medication. No blood thinners. No history of blood clots. Past History - Past Medical History Allergies/Adverse Reactions: Allergies Allergy/AdvReac Type Severity Reaction Status Date / Time Penicillins Allergy Severe Difficulty Verified 05/06/18 09:56 Breathing Home Medications: Ambulatory Orders Levothyroxine [Synthroid -] 100 mcg PO DAILY@0700 tablet 06/24/17 Losartan Potassium [Cozaar -] 25 mg PO DAILY #30 tablet 06/24/17 Roflumilast [Daliresp] 500 mcg PO DAILY #30 tablet 06/24/17 Escitalopram Oxalate [Lexapro -] 10 mg PO DAILY 08/31/17 Potassium Chloride [K-Dur -] 10 meq PO DAILY 08/31/17 Furosemide [Lasix -] 20 mg PO DAILY 11/25/17 Aspirin [ASA -] 81 mg PO DAILY 02/01/18 Albuterol Sulfate Inhaler - [Ventolin HFA Inhaler -] 1 - 2 inh PO Q6H PRN Montelukast Sodium [Singulair] 10 mg PO DAILY 04/05/18 Rosuvastatin [Crestor -] 5 mg PO HS 04/05/18 predniSONE [Deltasone -] See Taper PO DAILY 30 Days #72 tablet MDD 8 04/28/18 Albuterol 0.083% Nebulizer Colette [Ventolin 0.083% Nebulizer Soln -] 1 amp NEB Q8H PRN 05/06/18 Cardiac Disorders: (CHF) CVA: No COPD: Yes (O2 dependent at home) CHF: Yes DVT: No Dementia: No HTN: Yes Seizures: No Thyroid Disease: Yes (hypo) - Immunization History Immunization Up to Date: Yes - Suicide/Smoking/Psychosocial Hx Smoking History: Never smoked Have you smoked in the past 12 months: No If you are a former smoker, when did you quit?: 8 years ago Information on smoking cessation initiated: No Hx Alcohol Use: No Drug/Substance Use Hx: No Substance Use Type: None Hx Substance Use Treatment: No Review of Systems - Review of Systems Comments:: 05/06/18 10:28 GENERAL/CONSTITUTIONAL: No fever or chills. No weakness. HEAD, EYES, EARS, NOSE AND THROAT: No change in vision. No sore throat. CARDIOVASCULAR: +chest pain +shortness of breath RESPIRATORY: +cough, +wheezing, no hemoptysis. GASTROINTESTINAL: No nausea, vomiting, diarrhea or constipation. GENITOURINARY: No dysuria, frequency, or change in urination. MUSCULOSKELETAL: No joint or muscle swelling or pain. No neck or back pain. SKIN: No rash NEUROLOGIC: No headache, vertigo, loss of consciousness, or change in strength/ sensation. ENDOCRINE: No increased thirst. No abnormal weight change HEMATOLOGIC/LYMPHATIC: No anemia, easy bleeding, or history of blood clots. ALLERGIC/IMMUNOLOGIC: No hives or skin allergy. *Physical Exam - Vital Signs Last Vital Signs Temp Pulse Resp BP Pulse Ox 97.8 F 90 23 H 136/69 99 05/06/18 09:44 05/06/18 09:44 05/06/18 09:44 05/06/18 09:44 05/06/18 09:44 - Physical Exam Comments: 05/06/18 10:29 GENERAL: Awake, alert, and fully oriented HEAD: No signs of trauma, normocephalic, atraumatic EYES: PERRLA, EOMI, sclera anicteric, conjunctiva clear ENT: Auricles normal inspection, hearing grossly normal, nares patent, oropharynx clear without exudates. Moist mucosa NECK: Normal ROM, supple, no lymphadenopathy, JVD, or masses LUNGS: Using accessory muscles, speaking 3-5 word sentences, tight, wheezing HEART: Regular rate and rhythm, normal S1 and S2, no murmurs, rubs or gallops, peripheral pulses normal and equal bilaterally. ABDOMEN: Soft, nontender, normoactive bowel sounds. No guarding, no rebound. No masses EXTREMITIES: Normal inspection, Normal range of motion, no edema. No clubbing or cyanosis. NEUROLOGICAL: Cranial nerves II through XII grossly intact. Normal speech, no focal sensorimotor deficits SKIN: Warm, Dry, normal turgor, no rashes or lesions noted. ED Treatment Course - LABORATORY CBC & Chemistry Diagram: 05/06/18 10:30 05/06/18 10:30 - RADIOLOGY Radiology Studies Ordered: Category Date Time Status CHEST X-RAY PORTABLE* [RAD] Stat Radiology 05/06/18 10:18 Ordered Medical Decision Making - Medical Decision Making 05/06/18 10:30 Patient is 57F with history of CHF, COPD, HLD, HTN, hypothyroidism, NAVDEEP, o2 dep here today with shortness of breath. Vitals notable for tachypnea. O2 at 99%, but on 4L. Tachypneic, using accessory muscles. Will treat with duonebs, solumedrol. Will evaluate with cbc, cmp, trop, ekg, cxr, head ct, ribs x-ray. Patient is fully alert and oriented, but is confused over medication list, which is a change from my prior interactions with patient. Will likely admit. 05/06/18 11:57 pCO2 134, bicarb 64.6, anion gap -2. Patient still using accessory muscles after treatments, placed on bipap. Labs suggest chronic compensated respiratory failure. Started on bipap due to work of breathing. EKG shows normal sinus rhythm with rate of 85. No st elevations/depressions. Normal axis. Normal intervals. No significant t wave abnormalities. 05/06/18 18:41 Patient stable on bipap. Admitted. 05/06/18 18:42 CXR shows no acute infiltrate, does show chronic lung disease. No fractured ribs or pneumothorax appreciated. Admitted to Dr Taylor. *DC/Admit/Observation/Transfer Diagnosis at time of Disposition: COPD exacerbation - Discharge Dispostion Condition at time of disposition: Stable Decision to Admit order: Yes - Referrals - Patient Instructions - Post Discharge Activity
[2018-05-06] MEDS ORDERED: methylPREDNISolone NA SUCC 125 MG/2 ML VIAL ONE (10:38)
[2018-05-06] MEDS ORDERED: ALBUTEROL SO4 2.5/IPRATROPIUM 0.5 INH SOL 3 ML VIAL.NEB. NEB ONE ×2 (10:38→11:24)
[2018-05-06] MEDS: ALBUTEROL SO4 2.5/IPRATROPIUM 0.5 INH SOL 3 ML VIAL.NEB. NEB SCH ×4 (10:39→11:25)
--- NOTE | 2018-05-06 10:42 | PDOC ---
Attending Attestation - Resident Resident Name: Heladio Boss - ED Attending Attestation I have performed the following: I have examined & evaluated the patient, The case was reviewed & discussed with the resident, I agree w/resident's findings & plan, Exceptions are as noted - HPI HPI: 05/06/18 15:22 57 years old past medical history significant for COPD, hypercapnic respiratory failure, CHF, hyperlipidemia, hypertension, hypothyroid, obstructive sleep apnea , presents today with worsening shortness of breath dyspnea on exertion over the last several days. Patient also stated she fell 3 days ago likely secondary to dyspnea and weakness Denies head trauma denies LOC denies chest pain fever chills cough sputum nausea vomiting symptoms are moderate persistent constant progressively worsening. - Physicial Exam PE: 05/06/18 15:22 Vitals: Triage Vital signs reviewed General Appearance: no acute distress, well nourished well developed, Head: Atraumatic, Chest Wall: Nontender Cardiac: Regular rate and rhythym, no murmurs, no rubs, no gallops, Lungs: Wheezing bilaterally Abdomen: Soft, non distended, normal bowel sounds, non tender to palpation Extremities: Full range of motion to all extremities, no cyanosis, clubbing, or edema Skin: Warm and dry, no rashes or lesions, no rash, no petechiae Psych: normal mood, normal affect - Medical Decision Making 57 years old past medical history significant for COPD, hypercapnic respiratory failure, CHF, hyperlipidemia, hypertension, hypothyroid, obstructive sleep apnea , presents today with worsening shortness of breath dyspnea on exertion over the last several days. Patient also stated she fell 3 days ago likely secondary to dyspnea and weakness Denies head trauma denies LOC denies chest pain fever chills cough sputum nausea vomiting symptoms are moderate persistent constant progressively worsening. Labs noticeable for worsening hypercapnic respiratory failure. BiPAP ordered. Patient treated with nebs and steroids low suspicion for pneumonia at this time We'll admit to medicine for further management. EKG performed at 1041. Demonstrates normal sinus rhythm no ST elevations no T- wave inversions Interpreted by me.
[2018-05-06 10:51] LABS: BASO % 0.1 % (0-2.0); EOS % 0.4 % (0-4.5); HEMATOCRIT 35.1 % (32.4-45.2); HEMOGLOBIN 11.6 GM/dL (10.7-15.3); LYMPH % 5.8 % (8-40); MCH 31.3 pg (25.7-33.7); MEAN PLT VOLUME 7.5 fl (7.5-11.1); MONO % 7.2 % (3.8-10.2); NEUT % 86.5 % (42.8-82.8); PLATELET COUNT 200 K/MM3 (134-434); RDW 13.4 % (11.6-15.6)
[2018-05-06 10:54] LABS: VENOUS PH 7.3 (7.32-7.42)
[2018-05-06 10:55] LABS: VENOUS PO2 33.5 mmHg (28-48)
[2018-05-06 11:12] LABS: INR 0.89 (0.83-1.09); PROTHROMBIN TIME (PATIENT) 10.5 SEC (9.7-13.0)
[2018-05-06 11:27] LABS: ALBUMIN 3.3 g/dl (3.4-5.0); ALK PHOS 84 U/L (45-117); BILIRUBIN,TOTAL 0.8 mg/dL (0.2-1); BLOOD UREA NITROGEN 11 mg/dL (7-18); CALCIUM 8.8 mg/dL (8.5-10.1); CHLORIDE 79 mmol/L (98-107); CREATININE 0.3 mg/dL (0.55-1.3); GLUCOSE,RANDOM 99 mg/dL (74-106); MAGNESIUM 1.9 mg/dL (1.8-2.4); N-TERMINAL BNP 142.2 pg/ml (5-125); POTASSIUM 3.5 mmol/L (3.5-5.1); SGOT/AST 12 U/L (15-37); SGPT/ALT 36 U/L (13-61); SODIUM 141 mmol/L (136-145); TOT PROT 5.8 g/dl (6.4-8.2)
[2018-05-06 12:14] LABS: CO2 61 mmol/L (21-32)
[2018-05-06 12:15] LABS: ANION GAP 1 MMOL/L (8-16)
--- NOTE | 2018-05-06 14:46 | HP ---
Admitting History and Physical - Primary Care Physician PCP: Agustina Taylor S - Admission Chief Complaint: SOB, s/p fall, confusion History of Present Illness: Patient is a 57F with history of COPD with multiple admissions for respiratory failure, CHF, HLD, HTN, hypothyroidism and NAVDEEP complaining of shortness of breath, worsening over the past 3 days. Patient also reports falling three days ago, stating that she tripped over a bump in the floor. Denies LOC, denies hitting her head, states that she landed on the right side. Denies fevers, chills, nausea, vomiting. Her reports that she's been more confused lately as well and that she was satting in the 70s on her home bipap machine, prompting the patient to come in today. No leg swelling. Patient reports compliance with medication. No blood thinners. No history of blood clots. Pt is arousable but sleepy; head CT done in ER negative for bleed or acute changes. History Source: Patient, Medical Record Limitations to Obtaining History: No Limitations - Past Medical History Cardiovascular: Yes: CHF, HTN, Hyperlipdemia Pulmonary: Yes: COPD, O2 Dependent, Sleep Apnea ...LMP: 06/03/14 Infectious Disease: Yes: Other (pneumonia) Musculoskeletal: Yes: Chronic low back pain Endocrine: Yes: Hypothyroidism - Smoking History Smoking history: Never smoked Have you smoked in the past 12 months: No If you are a former smoker, when did you quit?: 8 years ago - Alcohol/Substance Use Hx Alcohol Use: No History of Substance Use: reports: None - Social History Usual Living Arrangement: Yes: With Spouse ADL: Family Assistance History of Recent Travel: No Home Medications - Allergies Allergies/Adverse Reactions: Allergies Allergy/AdvReac Type Severity Reaction Status Date / Time Penicillins Allergy Severe Difficulty Verified 05/06/18 09:56 Breathing - Home Medications Home Medications: Ambulatory Orders Levothyroxine [Synthroid -] 100 mcg PO DAILY@0700 tablet 06/24/17 Losartan Potassium [Cozaar -] 25 mg PO DAILY #30 tablet 06/24/17 Roflumilast [Daliresp] 500 mcg PO DAILY #30 tablet 06/24/17 Escitalopram Oxalate [Lexapro -] 10 mg PO DAILY 08/31/17 Potassium Chloride [K-Dur -] 10 meq PO DAILY 08/31/17 Furosemide [Lasix -] 20 mg PO DAILY 11/25/17 Aspirin [ASA -] 81 mg PO DAILY 02/01/18 Albuterol Sulfate Inhaler - [Ventolin HFA Inhaler -] 1 - 2 inh PO Q6H PRN Montelukast Sodium [Singulair] 10 mg PO DAILY 04/05/18 Rosuvastatin [Crestor -] 5 mg PO HS 04/05/18 predniSONE [Deltasone -] See Taper PO DAILY 30 Days #72 tablet MDD 8 04/28/18 Albuterol 0.083% Nebulizer Colette [Ventolin 0.083% Nebulizer Soln -] 1 amp NEB Q8H PRN 05/06/18 Family Disease History - Family Disease History Family History: Unremarkable Review of Systems - Review of Systems Constitutional: denies: Chills, Fever Eyes: denies: Blind Spots, Blurred Vision HENT: denies: Difficult Swallowing, Ear Pain, Epistaxis Neck: denies: Stiffness, Tenderness Cardiovascular: reports: Shortness of Breath. denies: Chest Pain, Edema, Palpitations Respiratory: reports: Cough, Exercise Intolerance, SOB, SOB on Exertion, Wheezing. denies: Hemoptysis Gastrointestinal: denies: Abdominal Pain, Constipation, Melena, Rectal Bleeding , Vomiting, Vomiting Blood Genitourinary: denies: Dysuria, Flank Pain Musculoskeletal: denies: Back Pain, Joint Swelling Integumentary: denies: Erythema, Wound Neurological: reports: Confusion (when O2 sat drops below 80s). denies: Change in LOC, Change in Speech, Seizure, Syncope Endocrine: denies: Excessive Sweating, Flushing Hematology/Lymphatic: denies: Easily Bruised, Excessive Bleeding, Swollen Glands Psychiatric: denies: Altered Sleep Pattern, Anxiety, Depression, Suicidal Physical Examination Vital Signs: Vital Signs Temperature 97.8 F 05/06/18 09:44 Pulse Rate 98 H 05/06/18 14:30 Respiratory Rate 18 05/06/18 14:30 Blood Pressure 128/76 05/06/18 14:30 O2 Sat by Pulse Oximetry (%) 100 05/06/18 14:30 Constitutional: Yes: No Distress, Calm Eyes: Yes: Conjunctiva Clear HENT: Yes: Atraumatic Neck: Yes: Supple Cardiovascular: Yes: Regular Rate and Rhythm Respiratory: Yes: Rales, Wheezes Gastrointestinal: Yes: Soft. No: Distention, Tenderness Renal/: No: CVA Tenderness - Left, CVA Tenderness - Right, Hematuria Musculoskeletal: No: Joint Stiffness, Joint Swelling Extremities: No: Cold, Cool, Cyanosis Edema: No Integumentary: Yes: Bruising (R posterior chest, pt said from falling) Neurological: Yes: WNL, Alert ...Motor Strength: WNL Psychiatric: Yes: WNL, Alert. No: Agitated, Suicidal Ideation Labs: CBC, BMP 05/06/18 10:30 05/06/18 10:30 Imaging - Results Chest X-ray: Report Reviewed X-ray: Report Reviewed Other: Report Reviewed Assessment/Plan Patient is a 57F with history of COPD with multiple admissions for respiratory failure, CHF, HLD, HTN, hypothyroidism and NAVDEEP complaining of shortness of breath, worsening over the past 3 days. Patient also reports falling three days ago, mechanical fall no LOC. Acute on chronic COPD exac admit IV steroids, O2 NIPPV, nebs pulm eval falls decubs DVT pfx d/w pt and staff
--- NOTE | 2018-05-06 17:11 | EKG ---
Test Reason : Blood Pressure : / mmHG Vent. Rate : 085 BPM Atrial Rate : 085 BPM P-R Int : 164 ms QRS Dur : 076 ms QT Int : 366 ms P-R-T Axes : 000 078 062 degrees QTc Int : 435 ms NORMAL SINUS RHYTHM NORMAL ECG WHEN COMPARED WITH ECG OF 20-APR-2018 17:11, PREMATURE ATRIAL COMPLEXES ARE NO LONGER PRESENT Confirmed by BRADLEY FRANCE MD ([id number]) on 05/06/2018 5:11:14 PM Referred By: Confirmed By:BRADLEY FRANCE MD
[2018-05-06] MEDS ORDERED: ALBUTEROL SO4 8 GM HFA INHALER IH PRN (22:24)
[2018-05-06] MEDS: methylPREDNISolone NA SUCC 125 MG/2 ML VIAL IVPB SCH (23:06)
[2018-05-07] MEDS: ALBUTEROL SO4 0.083% IH SOL 2.5 MG/3 ML VIAL.NEB. NEB PRN ×3 (01:39→18:38)
[2018-05-07] MEDS: LEVOTHYROXINE NA 100 MCG TABLET (FP) PO SCH (06:23)
[2018-05-07] MEDS: methylPREDNISolone NA SUCC 125 MG/2 ML VIAL IVPB SCH ×3 (06:23→21:51)
--- NOTE | 2018-05-07 09:29 | PN ---
Progress Note, Physician Chief Complaint: awake alert NAD VSS mentation back to NL; O2 sat> 90% on O2 and NIPPV - Current Medication List Current Medications: Active Medications Albuterol Sulfate (Ventolin 0.083% Nebulizer Soln -) 1 amp NEB Q8H PRN PRN Reason: SHORT OF BREATH/WHEEZING Last Admin: 05/07/18 01:39 Dose: 1 amp Albuterol Sulfate (Ventolin Hfa Inhaler -) 1 puff IH Q6H PRN PRN Reason: ASTHMA Aspirin (Asa -) 81 mg PO DAILY [facility] Escitalopram Oxalate (Lexapro -) 10 mg PO DAILY [facility] Furosemide (Lasix -) 20 mg PO DAILY [facility] Heparin Sodium (Porcine) (Heparin -) 5,000 unit SQ BID [facility] Levothyroxine Sodium (Synthroid -) 100 mcg PO DAILY@0700 [facility] Last Admin: 05/07/18 06:23 Dose: 100 mcg Losartan Potassium (Cozaar -) 25 mg PO DAILY [facility] Methylprednisolone Sodium Succinate (Solu-Medrol -) 60 mg IVPB TID [facility] Last Admin: 05/07/18 06:23 Dose: 60 mg Montelukast Sodium (Singulair -) 10 mg PO HS [facility] Potassium Chloride (K-Dur -) 10 meq PO DAILY [facility] Roflumilast (Daliresp -) 500 mcg PO DAILY [facility] Rosuvastatin Calcium (Crestor -) 5 mg PO HS [facility] - Objective Vital Signs: Vital Signs Temperature 98.4 F 05/07/18 08:47 Pulse Rate 95 H 05/07/18 08:47 Respiratory Rate 20 05/07/18 08:47 Blood Pressure 130/82 05/07/18 08:47 O2 Sat by Pulse Oximetry (%) 98 05/07/18 07:45 Constitutional: Yes: No Distress, Calm Eyes: Yes: Conjunctiva Clear HENT: Yes: Atraumatic Neck: Yes: Supple Cardiovascular: Yes: Regular Rate and Rhythm Respiratory: Yes: Rhonchi Gastrointestinal: Yes: Soft. No: Tenderness Genitourinary: No: CVA Tenderness - Left, CVA Tenderness - Right Musculoskeletal: No: Joint Stiffness, Joint Swelling Extremities: No: Cold, Cool, Cyanosis Edema: No Integumentary: No: Rash, Venous Stasis Changes Neurological: Yes: WNL, Alert, Oriented ...Motor Strength: WNL Psychiatric: Yes: WNL, Alert, Oriented. No: Agitated, Suicidal Ideation Labs: CBC, BMP 05/06/18 10:30 05/06/18 10:30 INR, PTT INR 0.89 (0.83-1.09) 05/06/18 10:30 - ....Imaging Other: Report Reviewed Assessment/Plan Patient is a 57F with history of COPD with multiple admissions for respiratory failure, CHF, HLD, HTN, hypothyroidism and NAVDEEP complaining of shortness of breath, s/p falling at home, mechanical fall no LOC. Acute on chronic COPD exac continue meds IV steroids, O2 NIPPV, nebs pulm eval falls decubs DVT pfx d/w pt and staff
[2018-05-07] MEDS: POTASSIUM CHLORIDE TABS 10 MEQ TABLET.ER (FP) PO SCH (09:39)
[2018-05-07] MEDS: ROFLUMILAST 500 MCG TABLET PO SCH (09:39)
[2018-05-07] MEDS: ASPIRIN 81 MG CHEWABLE TABLETS PO SCH (09:39)
[2018-05-07] MEDS: HEPARIN NA (PORCINE) 5,000 UNITS/ML 1ML VIAL SQ SCH ×2 (09:39→21:48)
[2018-05-07] MEDS: ESCITALOPRAM OXALATE 10 MG TABLET (FP) PO SCH (09:39)
[2018-05-07] MEDS: LOSARTAN POTASSIUM 25 MG TABLET PO SCH (09:39)
[2018-05-07] MEDS: FUROSEMIDE 20 MG TABLET (FP) PO SCH (09:39)
[2018-05-07] MEDS: ACETAMINOPHEN 325 MG TABLET (FP) PO PRN ×2 (11:35→22:00)
--- NOTE | 2018-05-07 12:02 | CON.PULM ---
Consult Consult Specialty:: PULMONARY Referred by:: MARIA DOLORES Reason for Consultation:: COPD - History of Present Illness Chief Complaint: SOB/FALL History of Present Illness: 57 years old past medical history significant for COPD, hypercapnic respiratory failure, CHF, hyperlipidemia, hypertension, hypothyroid, obstructive sleep apnea , presents to ED with worsening shortness of breath and dyspnea on exertion over the last several days. Patient also stated she fell 3 days ago likely secondary to dyspnea and weakness Denies head trauma denies LOC denies chest pain fever chills cough sputum nausea vomiting symptoms are moderate persistent constant progressively worsening. Workup thus far did not reveal any rib fractures. Known to our service from last admission. - History Source History Provided By: Patient, Medical Record Limitations to Obtaining History: No Limitations - Past Medical History SOUND RECORDIST: No: Alzheimer's Cardio/Vascular: Yes: CHF, HTN, Hyperlipdemia. No: AFIB Pulmonary: Yes: COPD, O2 Dependent, Pneumonia, Sleep Apnea Gastrointestinal: No: Ascites Hepatobiliary: No: Cirrhosis Renal/: No: Renal Failure Reproductive: Yes: Postmenopausal ...LMP: 06/03/14 ...: No Heme/Onc: Yes: Anemia Infectious Disease: Yes: Other (pneumonia) Musculoskeletal: Yes: Chronic low back pain Endocrine: Yes: Hypothyroidism - Alcohol/Substance Use Hx Alcohol Use: No History of Substance Use: reports: None - Smoking History Smoking history: Former smoker Have you smoked in the past 12 months: No If you are a former smoker, when did you quit?: 8 years ago - Social History ADL: Family Assistance Place of : [facility] History of Recent Travel: No Home Medications - Allergies Allergies/Adverse Reactions: Allergies Allergy/AdvReac Type Severity Reaction Status Date / Time Penicillins Allergy Severe Difficulty Verified 05/06/18 09:56 Breathing - Home Medications Home Medications: Ambulatory Orders Levothyroxine [Synthroid -] 100 mcg PO DAILY@0700 tablet 06/24/17 Losartan Potassium [Cozaar -] 25 mg PO DAILY #30 tablet 06/24/17 Roflumilast [Daliresp] 500 mcg PO DAILY #30 tablet 06/24/17 Escitalopram Oxalate [Lexapro -] 10 mg PO DAILY 08/31/17 Potassium Chloride [K-Dur -] 10 meq PO DAILY 08/31/17 Furosemide [Lasix -] 20 mg PO DAILY 11/25/17 Aspirin [ASA -] 81 mg PO DAILY 02/01/18 Albuterol Sulfate Inhaler - [Ventolin HFA Inhaler -] 1 - 2 inh PO Q6H PRN Montelukast Sodium [Singulair] 10 mg PO DAILY 04/05/18 Rosuvastatin [Crestor -] 5 mg PO HS 04/05/18 predniSONE [Deltasone -] See Taper PO DAILY 30 Days #72 tablet MDD 8 04/28/18 Albuterol 0.083% Nebulizer Colette [Ventolin 0.083% Nebulizer Soln -] 1 amp NEB Q8H PRN 05/06/18 Family Disease History - Family Disease History Family History: Unremarkable Review of Systems - Review of Systems Constitutional: denies: Fever Eyes: denies: Blurred Vision HENT: denies: Difficult Swallowing Neck: denies: Decreased ROM Cardiovascular: reports: Chest Pain, Shortness of Breath. denies: Edema, Palpitations Respiratory: reports: Cough, Exercise Intolerance, SOB, SOB on Exertion, Wheezing. denies: Hemoptysis, Orthopnea Gastrointestinal: denies: Abdominal Pain Breasts: reports: No Symptoms Reported Musculoskeletal: reports: Back Pain (from fall) Integumentary: reports: Bruising Neurological: reports: No Symptoms Endocrine: reports: No Symptoms Physical Exam Vital Sings: Vital Signs Temperature 98.4 F 05/07/18 08:47 Pulse Rate 95 H 05/07/18 08:47 Respiratory Rate 20 05/07/18 09:00 Blood Pressure 130/82 05/07/18 08:47 O2 Sat by Pulse Oximetry (%) 98 05/07/18 09:00 Constitutional: Yes: Anxious Eyes: Yes: EOM Intact HENT: Yes: Normocephalic Neck: Yes: Trachea Midline Cardiovascular: Yes: S1, S2 Respiratory: Yes: Diminished Gastrointestinal: Yes: Normal Bowel Sounds, Soft Musculoskeletal: Yes: WNL Extremities: Yes: WNL Edema: No Integumentary: Yes: Bruising Neurological: Yes: Oriented Labs: CBC, BMP 05/06/18 10:30 05/06/18 10:30 rest reviewed Imaging - Results Chest X-ray: Report Reviewed, Image Reviewed Problem List - Problems (1) COPD exacerbation Code(s): J44.1 - CHRONIC OBSTRUCTIVE PULMONARY DISEASE W (ACUTE) EXACERBATION (2) Acute and chronic respiratory failure with hypoxia Code(s): J96.21 - ACUTE AND CHRONIC RESPIRATORY FAILURE WITH HYPOXIA (3) Acute diastolic (congestive) heart failure Code(s): I50.31 - ACUTE DIASTOLIC (CONGESTIVE) HEART FAILURE (4) CHF (congestive heart failure) Code(s): I50.9 - HEART FAILURE, UNSPECIFIED (5) COPD exacerbation Code(s): J44.1 - CHRONIC OBSTRUCTIVE PULMONARY DISEASE W (ACUTE) EXACERBATION (6) Hyperlipidemia Code(s): E78.5 - HYPERLIPIDEMIA, UNSPECIFIED Qualifiers: Hyperlipidemia type: pure hypercholesterolemia Qualified Code(s): E78.00 - Pure hypercholesterolemia, unspecified; E78.0 - Pure hypercholesterolemia (7) Hypertension Code(s): I10 - ESSENTIAL (PRIMARY) HYPERTENSION Qualifiers: Hypertension type: essential hypertension Qualified Code(s): I10 - Essential (primary) hypertension (8) Pneumonia Code(s): J18.9 - PNEUMONIA, UNSPECIFIED ORGANISM (9) Shortness of breath Code(s): R06.02 - SHORTNESS OF BREATH (10) Sleep apnea Code(s): G47.30 - SLEEP APNEA, UNSPECIFIED Assessment/Plan A/E COPD WITH FALL INJURING RIGHT RIB CAGE/NO FRACTURE NOTED MULTIPLE CO-MORBIDITIES NOTED AGREE WITH BRONCHODILATORS/O2 SUPPLEMENTATION/DE-ESCALATE IV STEROIDS APPROPRIATE OOB TO CHAIR VTE PROPHYLAXSIS Parul ALEGRE MD
[2018-05-07] MEDS: MONTELUKAST NA 10 MG TABLET PO SCH (21:50)
[2018-05-07] MEDS: ROSUVASTATIN CA 5 MG TABLET (FP) PO SCH (21:50)
[2018-05-08] MEDS: methylPREDNISolone NA SUCC 125 MG/2 ML VIAL IVPB SCH ×3 (05:41→22:25)
[2018-05-08] MEDS: LEVOTHYROXINE NA 100 MCG TABLET (FP) PO SCH (06:23)
[2018-05-08] MEDS: ALBUTEROL SO4 0.083% IH SOL 2.5 MG/3 ML VIAL.NEB. NEB PRN ×3 (07:55→22:00)
[2018-05-08] MEDS ORDERED: PT OWN MED DRAWER 7, Y5N ONE (09:23)
[2018-05-08] MEDS: ASPIRIN 81 MG CHEWABLE TABLETS PO SCH (09:41)
[2018-05-08] MEDS: POTASSIUM CHLORIDE TABS 10 MEQ TABLET.ER (FP) PO SCH (09:41)
[2018-05-08] MEDS: ROFLUMILAST 500 MCG TABLET PO SCH (09:41)
[2018-05-08] MEDS: HEPARIN NA (PORCINE) 5,000 UNITS/ML 1ML VIAL SQ SCH ×2 (09:41→22:33)
[2018-05-08] MEDS: FUROSEMIDE 20 MG TABLET (FP) PO SCH (09:41)
[2018-05-08] MEDS: ESCITALOPRAM OXALATE 10 MG TABLET (FP) PO SCH (09:41)
[2018-05-08] MEDS: LOSARTAN POTASSIUM 25 MG TABLET PO SCH (09:41)
--- NOTE | 2018-05-08 11:55 | PN ---
Progress Note (short form) - Note Progress Note: OOB to chair. Breathing feels OK. Some right sided chest discomfort from fall. Intake & Output 05/05/18 05/06/18 05/07/18 05/08/18 23:59 23:59 23:59 23:59 Intake Total 480 470 0 Balance 480 470 0 Weight 158 lb 9.6 oz 158 lb 6 oz 158 lb 3.2 oz Last Vital Signs Temp Pulse Resp BP Pulse Ox 98.5 F 95 H 22 H 124/67 96 05/08/18 10:00 05/08/18 10:00 05/08/18 10:00 05/08/18 10:00 05/07/18 21:00 Active Medications Acetaminophen (Tylenol -) 650 mg PO Q6H PRN PRN Reason: FEVER AND PAIN SCALE 1-7 Last Admin: 05/07/18 22:00 Dose: 650 mg Albuterol Sulfate (Ventolin 0.083% Nebulizer Soln -) 1 amp NEB Q8H PRN PRN Reason: SHORT OF BREATH/WHEEZING Last Admin: 05/08/18 07:55 Dose: 1 amp Albuterol Sulfate (Ventolin Hfa Inhaler -) 1 puff IH Q6H PRN PRN Reason: ASTHMA Aspirin (Asa -) 81 mg PO DAILY [facility] Last Admin: 05/08/18 09:41 Dose: 81 mg Escitalopram Oxalate (Lexapro -) 10 mg PO DAILY [facility] Last Admin: 05/08/18 09:41 Dose: 10 mg Furosemide (Lasix -) 20 mg PO DAILY [facility] Last Admin: 05/08/18 09:41 Dose: 20 mg Heparin Sodium (Porcine) (Heparin -) 5,000 unit SQ BID [facility] Last Admin: 05/08/18 09:41 Dose: 5,000 unit Levothyroxine Sodium (Synthroid -) 100 mcg PO DAILY@0700 [facility] Last Admin: 05/08/18 06:23 Dose: 100 mcg Losartan Potassium (Cozaar -) 25 mg PO DAILY [facility] Last Admin: 05/08/18 09:41 Dose: 25 mg Methylprednisolone Sodium Succinate (Solu-Medrol -) 60 mg IVPB TID [facility] Last Admin: 05/08/18 05:41 Dose: 60 mg Montelukast Sodium (Singulair -) 10 mg PO HS [facility] Last Admin: 05/07/18 21:50 Dose: 10 mg Potassium Chloride (K-Dur -) 10 meq PO DAILY [facility] Last Admin: 05/08/18 09:41 Dose: 10 meq Roflumilast (Daliresp -) 500 mcg PO DAILY [facility] Last Admin: 05/08/18 09:41 Dose: 500 mcg Rosuvastatin Calcium (Crestor -) 5 mg PO HS [facility] Last Admin: 05/07/18 21:50 Dose: 5 mg Constitutional: Yes: Anxious, NAD Eyes: Yes: EOM Intact HENT: Yes: Normocephalic Neck: Yes: Trachea Midline Cardiovascular: Yes: S1, S2 Respiratory: Yes: Diminished Gastrointestinal: Yes: Normal Bowel Sounds, Soft Musculoskeletal: Yes: WNL Extremities: Yes: WNL Edema: No Integumentary: Yes: Bruising Neurological: Yes: Oriented Labs: Problem List (1) COPD exacerbation Code(s): J44.1 - CHRONIC OBSTRUCTIVE PULMONARY DISEASE W (ACUTE) EXACERBATION (2) Acute and chronic respiratory failure with hypoxia Code(s): J96.21 - ACUTE AND CHRONIC RESPIRATORY FAILURE WITH HYPOXIA (3) Acute diastolic (congestive) heart failure Code(s): I50.31 - ACUTE DIASTOLIC (CONGESTIVE) HEART FAILURE (4) CHF (congestive heart failure) Code(s): I50.9 - HEART FAILURE, UNSPECIFIED (5) COPD exacerbation Code(s): J44.1 - CHRONIC OBSTRUCTIVE PULMONARY DISEASE W (ACUTE) EXACERBATION (6) Hyperlipidemia Code(s): E78.5 - HYPERLIPIDEMIA, UNSPECIFIED Qualifiers: Hyperlipidemia type: pure hypercholesterolemia Qualified Code(s): E78.00 - Pure hypercholesterolemia, unspecified; E78.0 - Pure hypercholesterolemia (7) Hypertension Code(s): I10 - ESSENTIAL (PRIMARY) HYPERTENSION Qualifiers: Hypertension type: essential hypertension Qualified Code(s): I10 - Essential (primary) hypertension (8) Pneumonia Code(s): J18.9 - PNEUMONIA, UNSPECIFIED ORGANISM (9) Shortness of breath Code(s): R06.02 - SHORTNESS OF BREATH (10) Sleep apnea Code(s): G47.30 - SLEEP APNEA, UNSPECIFIED Assessment/Plan A/E COPD WITH FALL INJURING RIGHT RIB CAGE/NO FRACTURE NOTED MULTIPLE CO-MORBIDITIES NOTED WILL LIKELY CHANGE TO PREDNISONE IN AM IF STABLE/IMPROVED BRONCHODILATORS O2 SUPPLEMENTATION NIPPV QHS AND PRN OOB TO CHAIR VTE PROPHYLAXIS INCENTIVE SPIROMETRY DR IVEY
--- NOTE | 2018-05-08 13:38 | PN ---
Progress Note, Physician Chief Complaint: better, less ribs pains; less SOB, still coughing - Current Medication List Current Medications: Active Medications Acetaminophen (Tylenol -) 650 mg PO Q6H PRN PRN Reason: FEVER AND PAIN SCALE 1-7 Last Admin: 05/07/18 22:00 Dose: 650 mg Albuterol Sulfate (Ventolin 0.083% Nebulizer Soln -) 1 amp NEB Q8H PRN PRN Reason: SHORT OF BREATH/WHEEZING Last Admin: 05/08/18 07:55 Dose: 1 amp Albuterol Sulfate (Ventolin Hfa Inhaler -) 1 puff IH Q6H PRN PRN Reason: ASTHMA Aspirin (Asa -) 81 mg PO DAILY [facility] Last Admin: 05/08/18 09:41 Dose: 81 mg Escitalopram Oxalate (Lexapro -) 10 mg PO DAILY [facility] Last Admin: 05/08/18 09:41 Dose: 10 mg Furosemide (Lasix -) 20 mg PO DAILY [facility] Last Admin: 05/08/18 09:41 Dose: 20 mg Heparin Sodium (Porcine) (Heparin -) 5,000 unit SQ BID [facility] Last Admin: 05/08/18 09:41 Dose: 5,000 unit Levothyroxine Sodium (Synthroid -) 100 mcg PO DAILY@0700 [facility] Last Admin: 05/08/18 06:23 Dose: 100 mcg Losartan Potassium (Cozaar -) 25 mg PO DAILY [facility] Last Admin: 05/08/18 09:41 Dose: 25 mg Methylprednisolone Sodium Succinate (Solu-Medrol -) 60 mg IVPB TID [facility] Last Admin: 05/08/18 05:41 Dose: 60 mg Montelukast Sodium (Singulair -) 10 mg PO HS [facility] Last Admin: 05/07/18 21:50 Dose: 10 mg Potassium Chloride (K-Dur -) 10 meq PO DAILY [facility] Last Admin: 05/08/18 09:41 Dose: 10 meq Roflumilast (Daliresp -) 500 mcg PO DAILY [facility] Last Admin: 05/08/18 09:41 Dose: 500 mcg Rosuvastatin Calcium (Crestor -) 5 mg PO HS [facility] Last Admin: 05/07/18 21:50 Dose: 5 mg - Objective Vital Signs: Vital Signs Temperature 98.5 F 05/08/18 10:00 Pulse Rate 95 H 05/08/18 10:00 Respiratory Rate 22 H 11/10/18 10:00 Blood Pressure 124/67 05/08/18 10:00 O2 Sat by Pulse Oximetry (%) 96 05/07/18 21:00 Constitutional: Yes: No Distress, Calm Eyes: Yes: Conjunctiva Clear HENT: Yes: Atraumatic Neck: Yes: Supple Cardiovascular: Yes: Regular Rate and Rhythm Respiratory: Yes: Rales Gastrointestinal: Yes: Soft. No: Distention Genitourinary: No: CVA Tenderness - Left, CVA Tenderness - Right Musculoskeletal: No: Joint Stiffness, Joint Swelling Extremities: No: Cold, Cool, Cyanosis Edema: No Integumentary: No: Rash, Venous Stasis Changes Neurological: Yes: WNL, Alert, Oriented ...Motor Strength: WNL Psychiatric: Yes: WNL, Alert, Oriented. No: Agitated, Suicidal Ideation Labs: CBC, BMP 05/06/18 10:30 05/06/18 10:30 INR, PTT INR 0.89 (0.83-1.09) 05/06/18 10:30 - ....Imaging Other: Report Reviewed Assessment/Plan Patient is a 57F with history of COPD with multiple admissions for respiratory failure, CHF, HLD, HTN, hypothyroidism and NAVDEEP complaining of shortness of breath, s/p falling at home, mechanical fall no LOC. Acute on chronic COPD exac continue meds IV steroids taper per pulm O2 NC, NIPPV, nebs pulm eval falls decubs DVT pfx PT rehab and CM eval for SNF, pulmonary rehab d/w pt and staff
[2018-05-08] MEDS: ROSUVASTATIN CA 5 MG TABLET (FP) PO SCH (22:25)
[2018-05-08] MEDS: MONTELUKAST NA 10 MG TABLET PO SCH (22:25)
[2018-05-08] MEDS: ACETAMINOPHEN 325 MG TABLET (FP) PO PRN (22:26)
[2018-05-09] MEDS: methylPREDNISolone NA SUCC 125 MG/2 ML VIAL IVPB SCH (06:00)
[2018-05-09] MEDS: LEVOTHYROXINE NA 100 MCG TABLET (FP) PO SCH (06:00)
[2018-05-09] MEDS: ACETAMINOPHEN 325 MG TABLET (FP) PO PRN ×3 (06:05→22:15)
[2018-05-09] MEDS: ALBUTEROL SO4 0.083% IH SOL 2.5 MG/3 ML VIAL.NEB. NEB PRN ×3 (08:01→22:07)
[2018-05-09 08:19] LABS: BASO % 0.1 % (0-2.0); HEMATOCRIT 33.8 % (32.4-45.2); HEMOGLOBIN 10.8 GM/dL (10.7-15.3); MCH 30.3 pg (25.7-33.7); MCHC 31.9 g/dl (32.0-36.0); MEAN CELL VOLUME 94.8 fl (80-96); MONO % 3.2 % (3.8-10.2); NEUT % 95.7 % (42.8-82.8); PLATELET COUNT 136 K/MM3 (134-434); RBC 3.56 M/mm3 (3.60-5.2); RDW 13.1 % (11.6-15.6); WHITE BLOOD COUNT 7.7 K/mm3 (4.0-10.0)
--- NOTE | 2018-05-09 08:50 | PN ---
Progress Note, Physician Chief Complaint: feels better; wants to go to rehab and pulm rehab - Current Medication List Current Medications: Active Medications Acetaminophen (Tylenol -) 650 mg PO Q6H PRN PRN Reason: FEVER AND PAIN SCALE 1-7 Last Admin: 05/09/18 06:05 Dose: 650 mg Albuterol Sulfate (Ventolin 0.083% Nebulizer Soln -) 1 amp NEB Q8H PRN PRN Reason: SHORT OF BREATH/WHEEZING Last Admin: 05/09/18 08:01 Dose: 1 amp Albuterol Sulfate (Ventolin Hfa Inhaler -) 1 puff IH Q6H PRN PRN Reason: ASTHMA Aspirin (Asa -) 81 mg PO DAILY [facility] Last Admin: 05/08/18 09:41 Dose: 81 mg Escitalopram Oxalate (Lexapro -) 10 mg PO DAILY [facility] Last Admin: 05/08/18 09:41 Dose: 10 mg Furosemide (Lasix -) 20 mg PO DAILY [facility] Last Admin: 05/08/18 09:41 Dose: 20 mg Heparin Sodium (Porcine) (Heparin -) 5,000 unit SQ BID [facility] Last Admin: 05/08/18 22:33 Dose: 5,000 unit Levothyroxine Sodium (Synthroid -) 100 mcg PO DAILY@0700 [facility] Last Admin: 05/09/18 06:00 Dose: 100 mcg Losartan Potassium (Cozaar -) 25 mg PO DAILY [facility] Last Admin: 05/08/18 09:41 Dose: 25 mg Methylprednisolone Sodium Succinate (Solu-Medrol -) 60 mg IVPB TID [facility] Last Admin: 05/09/18 06:00 Dose: 60 mg Montelukast Sodium (Singulair -) 10 mg PO HS [facility] Last Admin: 05/08/18 22:25 Dose: 10 mg Potassium Chloride (K-Dur -) 10 meq PO DAILY [facility] Last Admin: 05/08/18 09:41 Dose: 10 meq Roflumilast (Daliresp -) 500 mcg PO DAILY [facility] Last Admin: 05/08/18 09:41 Dose: 500 mcg Rosuvastatin Calcium (Crestor -) 5 mg PO HS [facility] Last Admin: 05/08/18 22:25 Dose: 5 mg - Objective Vital Signs: Vital Signs Temperature 97.4 F L 05/09/18 05:46 Pulse Rate 78 05/09/18 05:46 Respiratory Rate 18 05/09/18 05:46 Blood Pressure 132/73 05/09/18 05:46 O2 Sat by Pulse Oximetry (%) 98 05/09/18 00:30 Constitutional: Yes: No Distress Eyes: Yes: Conjunctiva Clear HENT: Yes: Atraumatic Neck: Yes: Supple Cardiovascular: Yes: Regular Rate and Rhythm Respiratory: Yes: CTA Bilaterally Gastrointestinal: Yes: Soft. No: Tenderness Genitourinary: No: Hematuria Musculoskeletal: No: Joint Stiffness, Joint Swelling Extremities: No: Cold, Cool Edema: No Integumentary: No: Rash, Venous Stasis Changes Neurological: Yes: WNL, Alert, Oriented ...Motor Strength: WNL Psychiatric: Yes: WNL, Alert, Oriented. No: Agitated, Suicidal Ideation Labs: CBC, BMP 05/09/18 06:59 INR, PTT INR 0.89 (0.83-1.09) 05/06/18 10:30 - ....Imaging Other: Report Reviewed Assessment/Plan Patient is a 57F with history of COPD with multiple admissions for respiratory failure, CHF, HLD, HTN, hypothyroidism and NAVDEEP complaining of shortness of breath, s/p falling at home, mechanical fall no LOC. Acute on chronic COPD exac continue meds IV steroids taper per pulm O2 NC, NIPPV, nebs pulm eval falls decubs DVT pfx PT rehab and CM eval for SNF, pulmonary rehab d/w pt and staff
[2018-05-09] MEDS ORDERED: PT OWN MED DRAWER 7, Y5N ONE (08:59)
[2018-05-09 09:08] LABS: ALK PHOS 74 U/L (45-117); BILIRUBIN,TOTAL 0.5 mg/dL (0.2-1); BLOOD UREA NITROGEN 25 mg/dL (7-18); CALCIUM 8.2 mg/dL (8.5-10.1); CHLORIDE 84 mmol/L (98-107); CREATININE 0.4 mg/dL (0.55-1.3); GLUCOSE,RANDOM 172 mg/dL (74-106); POTASSIUM 3.7 mmol/L (3.5-5.1); SGOT/AST 10 U/L (15-37); SGPT/ALT 27 U/L (13-61); SODIUM 142 mmol/L (136-145); TOT PROT 5.4 g/dl (6.4-8.2)
[2018-05-09 09:09] LABS: ANION GAP 3 MMOL/L (8-16); CO2 55 mmol/L (21-32)
[2018-05-09] MEDS: POTASSIUM CHLORIDE TABS 10 MEQ TABLET.ER (FP) PO SCH (09:19)
[2018-05-09] MEDS: FUROSEMIDE 20 MG TABLET (FP) PO SCH (09:19)
[2018-05-09] MEDS: LOSARTAN POTASSIUM 25 MG TABLET PO SCH (09:19)
[2018-05-09] MEDS: ROFLUMILAST 500 MCG TABLET PO SCH (09:19)
[2018-05-09] MEDS: ASPIRIN 81 MG CHEWABLE TABLETS PO SCH (09:19)
[2018-05-09] MEDS: HEPARIN NA (PORCINE) 5,000 UNITS/ML 1ML VIAL SQ SCH ×2 (09:19→22:10)
[2018-05-09] MEDS: ESCITALOPRAM OXALATE 10 MG TABLET (FP) PO SCH (09:20)
[2018-05-09] MEDS ORDERED: methylPREDNISolone NA SUCC 40 MG/1 ML VIAL IVPB SCH (11:09)
--- NOTE | 2018-05-09 12:16 | PN ---
Progress Note (short form) - Note Progress Note: Ambulating in the hallway on O2. Feels overall better. Intake & Output 05/06/18 05/07/18 05/08/18 05/09/18 23:59 23:59 23:59 23:59 Intake Total 480 470 200 250 Balance 480 470 200 250 Weight 158 lb 9.6 oz 158 lb 6 oz 158 lb 3.2 oz 158 lb 1 oz Last Vital Signs Temp Pulse Resp BP Pulse Ox 97.4 F L 78 18 132/73 98 05/09/18 05:46 05/09/18 05:46 05/09/18 05:46 05/09/18 05:46 05/09/18 00:30 Active Medications Acetaminophen (Tylenol -) 650 mg PO Q6H PRN PRN Reason: FEVER AND PAIN SCALE 1-7 Last Admin: 05/09/18 06:05 Dose: 650 mg Albuterol Sulfate (Ventolin 0.083% Nebulizer Soln -) 1 amp NEB Q8H PRN PRN Reason: SHORT OF BREATH/WHEEZING Last Admin: 05/09/18 08:01 Dose: 1 amp Albuterol Sulfate (Ventolin Hfa Inhaler -) 1 puff IH Q6H PRN PRN Reason: ASTHMA Aspirin (Asa -) 81 mg PO DAILY [facility] Last Admin: 05/09/18 09:19 Dose: 81 mg Escitalopram Oxalate (Lexapro -) 10 mg PO DAILY [facility] Last Admin: 05/09/18 09:20 Dose: 10 mg Furosemide (Lasix -) 20 mg PO DAILY [facility] Last Admin: 05/09/18 09:19 Dose: 20 mg Heparin Sodium (Porcine) (Heparin -) 5,000 unit SQ BID [facility] Last Admin: 05/09/18 09:19 Dose: 5,000 unit Levothyroxine Sodium (Synthroid -) 100 mcg PO DAILY@0700 [facility] Last Admin: 05/09/18 06:00 Dose: 100 mcg Losartan Potassium (Cozaar -) 25 mg PO DAILY [facility] Last Admin: 05/09/18 09:19 Dose: 25 mg Methylprednisolone Sodium Succinate (Solu-Medrol -) 40 mg IVPB TID [facility] Montelukast Sodium (Singulair -) 10 mg PO HS [facility] Last Admin: 05/08/18 22:25 Dose: 10 mg Potassium Chloride (K-Dur -) 10 meq PO DAILY [facility] Last Admin: 05/09/18 09:19 Dose: 10 meq Roflumilast (Daliresp -) 500 mcg PO DAILY [facility] Last Admin: 05/09/18 09:19 Dose: 500 mcg Rosuvastatin Calcium (Crestor -) 5 mg PO HS [facility] Last Admin: 05/08/18 22:25 Dose: 5 mg Constitutional: Yes: Anxious, NAD Eyes: Yes: EOM Intact HENT: Yes: Normocephalic Neck: Yes: Trachea Midline Cardiovascular: Yes: S1, S2 Respiratory: Yes: Diminished Gastrointestinal: Yes: Normal Bowel Sounds, Soft Musculoskeletal: Yes: WNL Extremities: Yes: WNL Edema: No Integumentary: Yes: Bruising Neurological: Yes: Oriented Labs: Laboratory Results - last 24 hr 05/09/18 05/09/18 06:59 06:59 WBC 7.7 RBC 3.56 L Hgb 10.8 Hct 33.8 MCV 94.8 MCH 30.3 MCHC 31.9 L RDW 13.1 Plt Count 136 D MPV 8.0 Absolute Neuts (auto) 7.4 Neutrophils % 95.7 H Lymphocytes % 1.0 L D Monocytes % 3.2 L Eosinophils % 0.0 D Basophils % 0.1 Nucleated RBC % 0 Sodium 142 Potassium 3.7 Chloride 84 L Carbon Dioxide 55 H Anion Gap 3 L BUN 25 H Creatinine 0.4 L Creat Clearance w eGFR > 60 Random Glucose 172 H Calcium 8.2 L Total Bilirubin 0.5 AST 10 L ALT 27 Alkaline Phosphatase 74 Total Protein 5.4 L Albumin 3.0 L Problem List (1) COPD exacerbation Code(s): J44.1 - CHRONIC OBSTRUCTIVE PULMONARY DISEASE W (ACUTE) EXACERBATION (2) Acute and chronic respiratory failure with hypoxia Code(s): J96.21 - ACUTE AND CHRONIC RESPIRATORY FAILURE WITH HYPOXIA (3) Acute diastolic (congestive) heart failure Code(s): I50.31 - ACUTE DIASTOLIC (CONGESTIVE) HEART FAILURE (4) CHF (congestive heart failure) Code(s): I50.9 - HEART FAILURE, UNSPECIFIED (5) COPD exacerbation Code(s): J44.1 - CHRONIC OBSTRUCTIVE PULMONARY DISEASE W (ACUTE) EXACERBATION (6) Hyperlipidemia Code(s): E78.5 - HYPERLIPIDEMIA, UNSPECIFIED Qualifiers: Hyperlipidemia type: pure hypercholesterolemia Qualified Code(s): E78.00 - Pure hypercholesterolemia, unspecified; E78.0 - Pure hypercholesterolemia (7) Hypertension Code(s): I10 - ESSENTIAL (PRIMARY) HYPERTENSION Qualifiers: Hypertension type: essential hypertension Qualified Code(s): I10 - Essential (primary) hypertension (8) Pneumonia Code(s): J18.9 - PNEUMONIA, UNSPECIFIED ORGANISM (9) Shortness of breath Code(s): R06.02 - SHORTNESS OF BREATH (10) Sleep apnea Code(s): G47.30 - SLEEP APNEA, UNSPECIFIED Assessment/Plan A/E COPD WITH FALL INJURING RIGHT RIB CAGE/NO FRACTURE NOTED MULTIPLE CO-MORBIDITIES NOTED CHANGE TO PREDNISONE BRONCHODILATORS O2 SUPPLEMENTATION NIPPV QHS AND PRN OOB TO CHAIR VTE PROPHYLAXIS INCENTIVE SPIROMETRY DR IVEY
[2018-05-09] MEDS: predniSONE 20 MG TABLET (UD) PO SCH (12:45)
[2018-05-09 14:09] LABS: ANISOCYTOSIS 2+; MACROCYTOSIS 0; OVALOCYTE 2+; PLATELET ESTIMATE DECREASED; TEAR DROP CELLS 2+
[2018-05-09] MEDS: ROSUVASTATIN CA 5 MG TABLET (FP) PO SCH (22:10)
[2018-05-09] MEDS: MONTELUKAST NA 10 MG TABLET PO SCH (22:10)
[2018-05-10] MEDS: LEVOTHYROXINE NA 100 MCG TABLET (FP) PO SCH (06:21)
[2018-05-10] MEDS: ALBUTEROL SO4 0.083% IH SOL 2.5 MG/3 ML VIAL.NEB. NEB PRN ×4 (06:21→20:05)
[2018-05-10] MEDS: ACETAMINOPHEN 325 MG TABLET (FP) PO PRN (06:25)
[2018-05-10] MEDS ORDERED: PT OWN MED DRAWER 7, Y5N ONE ×3 (09:29→21:20)
[2018-05-10] MEDS: LOSARTAN POTASSIUM 25 MG TABLET PO SCH (09:33)
[2018-05-10] MEDS: FUROSEMIDE 20 MG TABLET (FP) PO SCH (09:33)
[2018-05-10] MEDS: predniSONE 20 MG TABLET (UD) PO SCH (09:34)
[2018-05-10] MEDS: ESCITALOPRAM OXALATE 10 MG TABLET (FP) PO SCH (09:34)
[2018-05-10] MEDS: POTASSIUM CHLORIDE TABS 10 MEQ TABLET.ER (FP) PO SCH (09:34)
[2018-05-10] MEDS: HEPARIN NA (PORCINE) 5,000 UNITS/ML 1ML VIAL SQ SCH ×2 (09:34→22:27)
[2018-05-10] MEDS: ASPIRIN 81 MG CHEWABLE TABLETS PO SCH (09:34)
[2018-05-10] MEDS: ROFLUMILAST 500 MCG TABLET PO SCH (09:34)
--- NOTE | 2018-05-10 09:45 | DS ---
Physical Examination Vital Signs: Vital Signs Temperature 98.2 F 05/10/18 09:32 Pulse Rate 97 H 05/10/18 09:32 Respiratory Rate 20 05/10/18 09:32 Blood Pressure 118/64 05/10/18 09:32 O2 Sat by Pulse Oximetry (%) 97 05/10/18 08:08 Findings/Remarks: in bed no new c/o less SOB less cough; wants to go for SNF/ pulm rehab d/w CM on po prednisone tapering doses Constitutional: Yes: No Distress, Calm Eyes: Yes: Conjunctiva Clear HENT: Yes: Atraumatic Neck: Yes: Supple Cardiovascular: Yes: Regular Rate and Rhythm Respiratory: Yes: CTA Bilaterally Gastrointestinal: Yes: Soft. No: Tenderness Renal/: No: CVA Tenderness - Left, CVA Tenderness - Right, Hematuria Musculoskeletal: No: Joint Stiffness, Joint Swelling Extremities: No: Cold, Cool, Cyanosis Edema: No Integumentary: Yes: Bruising (R posterior chest improving). No: Rash, Skin Tear Neurological: Yes: WNL, Alert, Oriented ...Motor Strength: WNL Psychiatric: Yes: WNL, Alert, Oriented. No: Agitated, Suicidal Ideation Labs: CBC, BMP 05/09/18 06:59 05/09/18 06:59 Discharge Summary Reason For Visit: ACUTE ON CHRONIC RESPIRATORY FAILURE Current Active Problems COPD exacerbation (Acute) Procedures: Principal: admitted with acute on chronic COPD exac; also s/p fall at home Other Procedures: iv steroids, nebs, pulmonary eval;. head CT negative; PT for ambulation Hospital Course: improved with above; DC to SNF for ambulation and pulmonary rehab f/u as advised Condition: Stable - Instructions Diet, Activity, Other Instructions: f/u PCP cardiology and pulmonary in 1-2 weeks after DC from SNF/NH falls PFX take meds as advised; use O2 / NC and NIPPV as advised RTER if worse or recurrent c/o health maintenance and screening tests and consults outpt per PCP dr Navarro Referrals: Max Parrish MD [Staff Physician] - Shekhar Perales MD [Staff Physician] - Laura Navarro MD [Primary Care Provider] - Disposition: [facility] - Home Medications Comprehensive Discharge Medication List: Ambulatory Orders Levothyroxine [Synthroid -] 100 mcg PO DAILY@0700 tablet 06/24/17 Losartan Potassium [Cozaar -] 25 mg PO DAILY #30 tablet 06/24/17 Roflumilast [Daliresp] 500 mcg PO DAILY #30 tablet 06/24/17 Escitalopram Oxalate [Lexapro -] 10 mg PO DAILY 08/31/17 Potassium Chloride [K-Dur -] 10 meq PO DAILY 08/31/17 Furosemide [Lasix -] 20 mg PO DAILY 11/25/17 Aspirin [ASA -] 81 mg PO DAILY 02/01/18 Albuterol Sulfate Inhaler - [Ventolin HFA Inhaler -] 1 - 2 inh PO Q6H PRN Montelukast Sodium [Singulair] 10 mg PO DAILY 04/05/18 Rosuvastatin [Crestor -] 5 mg PO HS 04/05/18 predniSONE [Deltasone -] See Taper PO DAILY 30 Days #72 tablet MDD 8 04/28/18 Albuterol 0.083% Nebulizer Colette [Ventolin 0.083% Nebulizer Soln -] 1 amp NEB Q8H PRN 05/06/18
--- NOTE | 2018-05-10 12:02 | PN ---
Progress Note (short form) - Note Progress Note: Reports increase in musculoskeletal pain on the right rib cage. No wheezing. Intake & Output 05/07/18 05/08/18 05/09/18 05/10/18 23:59 23:59 23:59 23:59 Intake Total 470 200 250 150 Balance 470 200 250 150 Weight 158 lb 6 oz 158 lb 3.2 oz 158 lb 1 oz 150 lb Last Vital Signs Temp Pulse Resp BP Pulse Ox 98.2 F 97 H 20 118/64 97 05/10/18 09:32 05/10/18 09:32 05/10/18 09:32 05/10/18 09:32 05/10/18 08:08 Active Medications Acetaminophen (Tylenol -) 650 mg PO Q6H PRN PRN Reason: FEVER AND PAIN SCALE 1-7 Last Admin: 05/10/18 06:25 Dose: 650 mg Albuterol Sulfate (Ventolin 0.083% Nebulizer Soln -) 1 amp NEB Q8H PRN PRN Reason: SHORT OF BREATH/WHEEZING Last Admin: 05/10/18 06:21 Dose: 1 amp Albuterol Sulfate (Ventolin Hfa Inhaler -) 1 puff IH Q6H PRN PRN Reason: ASTHMA Aspirin (Asa -) 81 mg PO DAILY [facility] Last Admin: 05/10/18 09:34 Dose: 81 mg Escitalopram Oxalate (Lexapro -) 10 mg PO DAILY [facility] Last Admin: 05/10/18 09:34 Dose: 10 mg Furosemide (Lasix -) 20 mg PO DAILY [facility] Last Admin: 05/10/18 09:33 Dose: 20 mg Heparin Sodium (Porcine) (Heparin -) 5,000 unit SQ BID [facility] Last Admin: 05/10/18 09:34 Dose: 5,000 unit Ketorolac Tromethamine (Toradol Injection -) 30 mg IVPUSH ONCE ONE Stop: 05/10/18 12:01 Levothyroxine Sodium (Synthroid -) 100 mcg PO DAILY@0700 [facility] Last Admin: 05/10/18 06:21 Dose: 100 mcg Losartan Potassium (Cozaar -) 25 mg PO DAILY [facility] Last Admin: 05/10/18 09:33 Dose: 25 mg Montelukast Sodium (Singulair -) 10 mg PO HS [facility] Last Admin: 05/09/18 22:10 Dose: 10 mg Potassium Chloride (K-Dur -) 10 meq PO DAILY [facility] Last Admin: 05/10/18 09:34 Dose: 10 meq Prednisone (Deltasone -) 40 mg PO DAILY [facility] Last Admin: 05/10/18 09:34 Dose: 40 mg Roflumilast (Daliresp -) 500 mcg PO DAILY [facility] Last Admin: 05/10/18 09:34 Dose: 500 mcg Rosuvastatin Calcium (Crestor -) 5 mg PO HS [facility] Last Admin: 05/09/18 22:10 Dose: 5 mg Constitutional: Yes: Anxious, NAD Eyes: Yes: EOM Intact HENT: Yes: Normocephalic Neck: Yes: Trachea Midline Cardiovascular: Yes: S1, S2 Respiratory: Yes: Diminished, no wheezing Gastrointestinal: Yes: Normal Bowel Sounds, Soft Musculoskeletal: Yes: WNL Extremities: Yes: WNL Edema: No Integumentary: Yes: Bruising Neurological: Yes: Oriented Labs: Laboratory Results - last 24 hr 05/09/18 06:59 Neutrophils % (Manual) 94.0 H Band Neutrophils % 1.0 Lymphocytes % (Manual) 0.0 L Monocytes % (Manual) 3 L Eosinophils % (Manual) 0.0 Basophils % (Manual) 0.0 Myelocytes % (Man) 0 Promyelocytes % (Man) 0 Blast Cells % (Manual) 0 Metamyelocytes 0 Hypochromia 0 Platelet Estimate Decreased Polychromasia 0 Poikilocytosis 0 Basophilic Stippling 1+ Anisocytosis 2+ Microcytosis 0 Macrocytosis 0 Tear Drop Cells 2+ Ovalocytes 2+ Stomatocytes 1+ Problem List (1) COPD exacerbation Code(s): J44.1 - CHRONIC OBSTRUCTIVE PULMONARY DISEASE W (ACUTE) EXACERBATION (2) Acute and chronic respiratory failure with hypoxia Code(s): J96.21 - ACUTE AND CHRONIC RESPIRATORY FAILURE WITH HYPOXIA (3) Acute diastolic (congestive) heart failure Code(s): I50.31 - ACUTE DIASTOLIC (CONGESTIVE) HEART FAILURE (4) CHF (congestive heart failure) Code(s): I50.9 - HEART FAILURE, UNSPECIFIED (5) COPD exacerbation Code(s): J44.1 - CHRONIC OBSTRUCTIVE PULMONARY DISEASE W (ACUTE) EXACERBATION (6) Hyperlipidemia Code(s): E78.5 - HYPERLIPIDEMIA, UNSPECIFIED Qualifiers: Hyperlipidemia type: pure hypercholesterolemia Qualified Code(s): E78.00 - Pure hypercholesterolemia, unspecified; E78.0 - Pure hypercholesterolemia (7) Hypertension Code(s): I10 - ESSENTIAL (PRIMARY) HYPERTENSION Qualifiers: Hypertension type: essential hypertension Qualified Code(s): I10 - Essential (primary) hypertension (8) Pneumonia Code(s): J18.9 - PNEUMONIA, UNSPECIFIED ORGANISM (9) Shortness of breath Code(s): R06.02 - SHORTNESS OF BREATH (10) Sleep apnea Code(s): G47.30 - SLEEP APNEA, UNSPECIFIED Assessment/Plan A/E COPD WITH FALL INJURING RIGHT RIB CAGE/NO FRACTURE NOTED MULTIPLE CO-MORBIDITIES NOTED TORADOL PREDNISONE BRONCHODILATORS O2 SUPPLEMENTATION OOB TO CHAIR VTE PROPHYLAXIS INCENTIVE SPIROMETRY FOR D/C TO SNF/PULM REHAB DR IVEY
[2018-05-10] MEDS ORDERED: KETOROLAC TROMETHAMINE 30 MG/1 ML VIAL IVPUSH ONE (12:45)
[2018-05-10] MEDS ORDERED: methylPREDNISolone NA SUCC 40 MG/1 ML VIAL IVPUSH ONE (15:45)
[2018-05-10] MEDS: ROSUVASTATIN CA 5 MG TABLET (FP) PO SCH (22:27)
[2018-05-10] MEDS: MONTELUKAST NA 10 MG TABLET PO SCH (22:28)
[2018-05-11] MEDS: ALBUTEROL SO4 0.083% IH SOL 2.5 MG/3 ML VIAL.NEB. NEB PRN ×3 (04:27→20:45)
[2018-05-11] MEDS: LEVOTHYROXINE NA 100 MCG TABLET (FP) PO SCH (06:11)
--- NOTE | 2018-05-11 08:37 | PN ---
Progress Note, Physician Chief Complaint: pt was supposed to be DC to [facility] [place] yesterday, cleared by pulm and switched to po prednisone, but developed some R sided ribs pains and SOB right before transfer, I ordered and pt received nebs and 1 dose solu-medrol this am no pain but feels "tight chest"; ABG stat ordered, CXR ordered transfer to SNF still on hold - Current Medication List Current Medications: Active Medications Acetaminophen (Tylenol -) 650 mg PO Q6H PRN PRN Reason: FEVER AND PAIN SCALE 1-7 Last Admin: 05/10/18 06:25 Dose: 650 mg Albuterol Sulfate (Ventolin 0.083% Nebulizer Soln -) 1 amp NEB Q8H PRN PRN Reason: SHORT OF BREATH/WHEEZING Last Admin: 05/11/18 04:27 Dose: 1 amp Albuterol Sulfate (Ventolin Hfa Inhaler -) 1 puff IH Q6H PRN PRN Reason: ASTHMA Aspirin (Asa -) 81 mg PO DAILY [facility] Last Admin: 05/10/18 09:34 Dose: 81 mg Escitalopram Oxalate (Lexapro -) 10 mg PO DAILY [facility] Last Admin: 05/10/18 09:34 Dose: 10 mg Furosemide (Lasix -) 20 mg PO DAILY [facility] Last Admin: 05/10/18 09:33 Dose: 20 mg Heparin Sodium (Porcine) (Heparin -) 5,000 unit SQ BID [facility] Last Admin: 05/10/18 22:27 Dose: 5,000 unit Levothyroxine Sodium (Synthroid -) 100 mcg PO DAILY@0700 [facility] Last Admin: 05/11/18 06:11 Dose: 100 mcg Losartan Potassium (Cozaar -) 25 mg PO DAILY [facility] Last Admin: 05/10/18 09:33 Dose: 25 mg Montelukast Sodium (Singulair -) 10 mg PO HS [facility] Last Admin: 05/10/18 22:28 Dose: 10 mg Potassium Chloride (K-Dur -) 10 meq PO DAILY [facility] Last Admin: 05/10/18 09:34 Dose: 10 meq Prednisone (Deltasone -) 40 mg PO DAILY [facility] Last Admin: 05/10/18 09:34 Dose: 40 mg Roflumilast (Daliresp -) 500 mcg PO DAILY [facility] Last Admin: 11/12/18 09:34 Dose: 500 mcg Rosuvastatin Calcium (Crestor -) 5 mg PO HS [facility] Last Admin: 05/10/18 22:27 Dose: 5 mg - Objective Vital Signs: Vital Signs Temperature 97.3 F L 05/11/18 08:31 Pulse Rate 92 H 05/11/18 08:31 Respiratory Rate 17 05/11/18 08:31 Blood Pressure 160/85 05/11/18 08:31 O2 Sat by Pulse Oximetry (%) 100 05/10/18 21:00 Constitutional: Yes: No Distress Eyes: Yes: Conjunctiva Clear HENT: Yes: Atraumatic Neck: Yes: Supple Cardiovascular: Yes: Regular Rate and Rhythm Respiratory: Yes: Rales Gastrointestinal: Yes: Soft. No: Distention Genitourinary: No: Hematuria Musculoskeletal: No: Joint Stiffness, Joint Swelling Extremities: No: Cold, Cool, Cyanosis Edema: No Integumentary: Yes: Bruising (same as before, improving) Neurological: Yes: WNL, Alert ...Motor Strength: WNL Psychiatric: Yes: WNL, Alert. No: Agitated Labs: CBC, BMP 05/09/18 06:59 05/09/18 06:59 INR, PTT INR 0.89 (0.83-1.09) 05/06/18 10:30 - ....Imaging Other: Report Reviewed Assessment/Plan Patient is a 57F with history of COPD with multiple admissions for respiratory failure, CHF, HLD, HTN, hypothyroidism and [place] complaining of shortness of breath, s/p falling at home, mechanical fall no LOC. Acute on chronic COPD exac check ABG stat give nebs now and IV steroids x 1 and recall pulmonary eval O2 NC, NIPPV, nebs falls decubs DVT pfx PT rehab and CM eval for SNF, pulmonary rehab when stable (on hold for now) d/w pt and staff
[2018-05-11] MEDS: LOSARTAN POTASSIUM 25 MG TABLET PO SCH (09:08)
[2018-05-11] MEDS: ESCITALOPRAM OXALATE 10 MG TABLET (FP) PO SCH (09:08)
[2018-05-11] MEDS: ASPIRIN 81 MG CHEWABLE TABLETS PO SCH (09:08)
[2018-05-11] MEDS: predniSONE 20 MG TABLET (UD) PO SCH (09:08)
[2018-05-11] MEDS: POTASSIUM CHLORIDE TABS 10 MEQ TABLET.ER (FP) PO SCH (09:08)
[2018-05-11] MEDS: FUROSEMIDE 20 MG TABLET (FP) PO SCH (09:08)
[2018-05-11] MEDS: HEPARIN NA (PORCINE) 5,000 UNITS/ML 1ML VIAL SQ SCH ×2 (09:08→21:26)
[2018-05-11] MEDS ORDERED: PT OWN MED DRAWER 7, Y5N ONE ×2 (09:32→21:14)
[2018-05-11] MEDS: ROFLUMILAST 500 MCG TABLET PO SCH (09:34)
--- NOTE | 2018-05-11 12:01 | PN ---
Progress Note (short form) - Note Progress Note: Since this AM found to be slightly confused and drowsy. Still with some musculoskeletal pain on the right rib cage. No wheezing. Intake & Output 05/08/18 05/09/18 05/10/18 05/11/18 23:59 23:59 23:59 23:59 Intake Total 200 250 300 360 Balance 200 250 300 360 Weight 158 lb 3.2 oz 158 lb 1 oz 150 lb Last Vital Signs Temp Pulse Resp BP Pulse Ox 97.3 F L 92 H 17 160/85 97 05/11/18 08:31 05/11/18 08:31 05/11/18 08:31 05/11/18 08:31 05/11/18 09:00 Active Medications Acetaminophen (Tylenol -) 650 mg PO Q6H PRN PRN Reason: FEVER AND PAIN SCALE 1-7 Last Admin: 05/10/18 06:25 Dose: 650 mg Albuterol Sulfate (Ventolin 0.083% Nebulizer Soln -) 1 amp NEB Q8H PRN PRN Reason: SHORT OF BREATH/WHEEZING Last Admin: 05/11/18 04:27 Dose: 1 amp Albuterol Sulfate (Ventolin Hfa Inhaler -) 1 puff IH Q6H PRN PRN Reason: ASTHMA Aspirin (Asa -) 81 mg PO DAILY [facility] Last Admin: 05/11/18 09:08 Dose: 81 mg Escitalopram Oxalate (Lexapro -) 10 mg PO DAILY [facility] Last Admin: 05/11/18 09:08 Dose: 10 mg Furosemide (Lasix -) 20 mg PO DAILY [facility] Last Admin: 05/11/18 09:08 Dose: 20 mg Heparin Sodium (Porcine) (Heparin -) 5,000 unit SQ BID [facility] Last Admin: 05/11/18 09:08 Dose: 5,000 unit Levothyroxine Sodium (Synthroid -) 100 mcg PO DAILY@0700 [facility] Last Admin: 05/11/18 06:11 Dose: 100 mcg Losartan Potassium (Cozaar -) 25 mg PO DAILY [facility] Last Admin: 05/11/18 09:08 Dose: 25 mg Methylprednisolone Sodium Succinate (Solu-Medrol -) 40 mg IVPUSH ONCE ONE Stop: 05/11/18 14:46 Montelukast Sodium (Singulair -) 10 mg PO HS [facility] Last Admin: 05/10/18 22:28 Dose: 10 mg Potassium Chloride (K-Dur -) 10 meq PO DAILY [facility] Last Admin: 05/11/18 09:08 Dose: 10 meq Prednisone (Deltasone -) 40 mg PO DAILY [facility] Last Admin: 05/11/18 09:08 Dose: 40 mg Roflumilast (Daliresp -) 500 mcg PO DAILY [facility] Last Admin: 05/11/18 09:34 Dose: 500 mcg Rosuvastatin Calcium (Crestor -) 5 mg PO HS [facility] Last Admin: 05/10/18 22:27 Dose: 5 mg Constitutional: Yes: Anxious, NAD Eyes: Yes: EOM Intact HENT: Yes: Normocephalic Neck: Yes: Trachea Midline Cardiovascular: Yes: S1, S2 Respiratory: Yes: Diminished, no wheezing Gastrointestinal: Yes: Normal Bowel Sounds, Soft Musculoskeletal: Yes: WNL Extremities: Yes: WNL Edema: No Integumentary: Yes: Bruising Neurological: Yes: Oriented Labs: Problem List (1) COPD exacerbation Code(s): J44.1 - CHRONIC OBSTRUCTIVE PULMONARY DISEASE W (ACUTE) EXACERBATION (2) Acute and chronic respiratory failure with hypoxia Code(s): J96.21 - ACUTE AND CHRONIC RESPIRATORY FAILURE WITH HYPOXIA (3) Acute diastolic (congestive) heart failure Code(s): I50.31 - ACUTE DIASTOLIC (CONGESTIVE) HEART FAILURE (4) CHF (congestive heart failure) Code(s): I50.9 - HEART FAILURE, UNSPECIFIED (5) COPD exacerbation Code(s): J44.1 - CHRONIC OBSTRUCTIVE PULMONARY DISEASE W (ACUTE) EXACERBATION (6) Hyperlipidemia Code(s): E78.5 - HYPERLIPIDEMIA, UNSPECIFIED Qualifiers: Hyperlipidemia type: pure hypercholesterolemia Qualified Code(s): E78.00 - Pure hypercholesterolemia, unspecified; E78.0 - Pure hypercholesterolemia (7) Hypertension Code(s): I10 - ESSENTIAL (PRIMARY) HYPERTENSION Qualifiers: Hypertension type: essential hypertension Qualified Code(s): I10 - Essential (primary) hypertension (8) Pneumonia Code(s): J18.9 - PNEUMONIA, UNSPECIFIED ORGANISM (9) Shortness of breath Code(s): R06.02 - SHORTNESS OF BREATH (10) Sleep apnea Code(s): G47.30 - SLEEP APNEA, UNSPECIFIED Assessment/Plan A/E COPD WITH FALL INJURING RIGHT RIB CAGE/NO FRACTURE NOTED MULTIPLE CO-MORBIDITIES NOTED PLACE BACK ON NIPPV CHECK ABG PAIN CONTROL PREDNISONE BRONCHODILATORS O2 SUPPLEMENTATION OOB TO CHAIR VTE PROPHYLAXIS INCENTIVE SPIROMETRY DR IVEY
[2018-05-11] MEDS ORDERED: methylPREDNISolone NA SUCC 40 MG/1 ML VIAL IVPUSH ONE (14:45)
[2018-05-11 14:50] LABS: ARTERIAL BLD GAS O2 SATURATION 97.2 % (90-98.9)
[2018-05-11 14:54] LABS: ALLENS TEST POSITIVE
[2018-05-11 14:58] LABS: ARTERIAL BLOOD GAS BASE EXCESS 30.8 meq/l (-2-2); ARTERIAL BLOOD GAS pH 7.18 (7.35-7.45)
--- NOTE | 2018-05-11 15:15 | RAPID ---
Physical Examination Vital Signs: Vital Signs Temperature 97.3 F L 05/11/18 14:25 Pulse Rate 61 05/11/18 14:25 Respiratory Rate 20 05/11/18 14:25 Blood Pressure 127/61 05/11/18 14:25 O2 Sat by Pulse Oximetry (%) 97 05/11/18 09:00 Rapid response was called for pt mentioned due to respiratory distress and SOB , desaturation to 83 % . Vitals 148/76, HR 109, sat 83 % , temp 99.0 PE General labored breathing with accessory muscles use AAOX3 but per nurse she was lethargic and confused Lungs : diffuse expiratory wheezing , Mechanical ventilation started by Respiratory therapist that improve her o2 to 99% Heart : sinus tachy, no MRG Abdomen : bese, Sodt, ND, NT, + BS EXT: upper right hand with erythema , infiltraion. Legs: no edema Neuro: no focal deficit, AbG Ph: 7.18 Pco2 184 Po2 105 Carlson 67.5 Will transfer pt to ICU CXR Repeat ABG Cont duo neb , Albuterol , prednison Case was discussed with attending and floor team Dr rosen. Dr Mckinley ICU attending Labs: CBC, BMP 05/09/18 06:59 05/09/18 06:59
--- NOTE | 2018-05-11 15:39 | CONSULT ---
Consultation: REQUESTING PROVIDER: CONSULT REQUEST: We have been asked to medically evaluate this patient for respiratory distress. HISTORY OF PRESENT ILLNESS: Patient is a 57 year old female with past medical history of COPD (on 2L of O2 at rest and 4L while ambulating), HTN, diastolic CHF, hypothyroidism, NAVDEEP, with multiple admissions due to respiratory failure secondary to COPD exacerbation, admitted 5 days ago due to shortness of breath and fall. Today, as per nursing, patient was noted to be more confused, in respiratory distress. ABG and CXR ordered. She was placed on bipap, but was getting agitated and kept on removing the mask. She was saturating at the 50s. Rapid response was called. Duoneb, albuterol and Solu-medrol given. Patient transferred to the ICU for closer monitoring. ABG: pH 7.18, pCO2 184, pO2 105 Bipap settings: 16/12 PCP: Dr. Taylor PMH: COPD (requiring multiple hospitalizations and prior intubations; O2 dependant - 2L at rest, 4L while ambulating), HTN, CHF, hypothyroidism, NAVDEEP SH: Quit smoking 8 years ago. Social Alcohol use. Denies drug use. Allergies: Penicillins REVIEW OF SYSTEMS: CONSTITUTIONAL: generalized weakness Absent: fever, chills, diaphoresis,malaise, loss of appetite, weight change HEENT: Absent: rhinorrhea, nasal congestion, throat pain, throat swelling, difficulty swallowing, mouth swelling, ear pain, eye pain, visual changes CARDIOVASCULAR: Absent: chest pain, syncope, palpitations, irregular heart rate, lightheadedness , peripheral edema RESPIRATORY: cough, shortness of breath, dyspnea with exertion Absent: orthopnea, wheezing, stridor, hemoptysis GASTROINTESTINAL: Absent: abdominal pain, abdominal distension, nausea, vomiting, diarrhea, constipation, melena, hematochezia GENITOURINARY: Absent: dysuria, frequency, urgency, hesitancy, hematuria, flank pain, genital pain MUSCULOSKELETAL: Absent: myalgia, arthralgia, joint swelling, back pain, neck pain SKIN: Absent: rash, itching, pallor HEMATOLOGIC/IMMUNOLOGIC: Absent: easy bleeding, easy bruising, lymphadenopathy, frequent infections ENDOCRINE: Absent: unexplained weight gain, unexplained weight loss, heat intolerance, cold intolerance NEUROLOGIC: Absent: headache, focal weakness or paresthesias, dizziness, unsteady gait, seizure, mental status changes, bladder or bowel incontinence PSYCHIATRIC: Absent: anxiety, depression, suicidal or homicidal ideation, hallucinations. PHYSICAL EXAMINATION Vital Signs - 24 hr 05/10/18 05/10/18 05/10/18 20:26 21:00 22:00 Temperature 98.5 F 98 F Pulse Rate 102 H 91 H Respiratory 22 H 20 20 Rate Blood Pressure 126/56 L 131/56 L O2 Sat by Pulse 100 Oximetry (%) 05/11/18 05/11/18 05/11/18 06:00 08:31 09:00 Temperature 98.2 F 97.3 F L Pulse Rate 91 H 92 H Respiratory 20 17 Rate Blood Pressure 136/71 160/85 O2 Sat by Pulse 97 Oximetry (%) 05/11/18 05/11/18 05/11/18 09:05 14:25 14:40 Temperature 97.3 F L Pulse Rate 61 Respiratory 20 Rate Blood Pressure 127/61 O2 Sat by Pulse 97 97 Oximetry (%) GENERAL: Awake, alert, in respiratory distress, on bipap EYES: PERRLA, EOMI, sclera anicteric, conjunctiva clear. NECK: Trachea midline, full range of motion, supple. LUNGS: Diminished breath sounds bilaterally, +scattered wheezing HEART: Tachycardic, regular rhythm, S1, S2 without murmur, rub or gallop. ABDOMEN: Soft, nontender, nondistended, normoactive bowel sounds. EXTREMITIES: 2+ pulses, warm, well-perfused, +1 pitting edema. NEUROLOGICAL: Cranial nerves II through XII grossly intact. Labored speech, gait not observed. SKIN: Warm, dry, normal turgor, no rashes or lesions noted Laboratory Results - last 24 hr 05/11/18 14:35 Puncture Site Left radial ABG pH 7.18 L* D ABG pCO2 at Pt Temp 184.0 H* ABG pO2 at Pt Temp 105.0 H D ABG HCO3 65.3 H* ABG O2 Sat (Measured) 97.2 ABG O2 Content 15.8 ABG Base Excess 30.8 H* Everton Test Positive O2 Delivery Device Nasal cannula Oxygen Flow Rate 3l PEEP 0.0 Active Medications Generic Name Dose Route Start Last Admin Trade Name Freq PRN Reason Stop Dose Admin Acetaminophen 650 mg 05/07/18 11:24 05/10/18 06:25 Tylenol - PO 650 mg Q6H PRN Administration FEVER AND PAIN SCALE 1-7 Albuterol Sulfate 1 amp 05/06/18 22:24 05/11/18 09:15 Ventolin 0.083% Nebulizer Soln - NEB 1 amp Q8H PRN Administration SHORT OF BREATH/WHEEZING Albuterol Sulfate 1 puff 05/06/18 22:24 Ventolin Hfa Inhaler - IH Q6H PRN ASTHMA Aspirin 81 mg 05/07/18 10:00 05/11/18 09:08 Asa - PO 81 mg DAILY HANSEL Administration Chlorhexidine Gluconate 1 applic 05/11/18 22:00 Hibiclens For Decolonization - TP HS HANSEL Escitalopram Oxalate 10 mg 05/07/18 10:00 05/11/18 09:08 Lexapro - PO 10 mg DAILY HANSEL Administration Furosemide 20 mg 05/07/18 10:00 05/11/18 09:08 Lasix - PO 20 mg DAILY HANSEL Administration Heparin Sodium (Porcine) 5,000 unit 05/07/18 10:00 05/11/18 09:08 Heparin - SQ 5,000 unit BID HANSEL Administration Levothyroxine Sodium 100 mcg 05/07/18 07:00 05/11/18 06:11 Synthroid - PO 100 mcg DAILY@0700 HANSEL Administration Losartan Potassium 25 mg 05/07/18 10:00 05/11/18 09:08 Cozaar - PO 25 mg DAILY HANSEL Administration Methylprednisolone Sodium Succinate 40 mg 05/11/18 21:00 Solu-Medrol - IVPUSH Q6H-IV HANSEL Montelukast Sodium 10 mg 05/07/18 22:00 05/10/18 22:28 Singulair - PO 10 mg HS HANSEL Administration Mupirocin 1 applic 05/11/18 22:00 Bactroban Ointment (For Decolonization) - NS 05/16/18 21:59 BID HANSEL Potassium Chloride 10 meq 05/07/18 10:00 05/11/18 09:08 K-Dur - PO 10 meq DAILY HANSEL Administration Roflumilast 500 mcg 05/07/18 10:00 05/11/18 09:34 Daliresp - PO 500 mcg DAILY HANSEL Administration Rosuvastatin Calcium 5 mg 05/07/18 22:00 05/10/18 22:27 Crestor - PO 5 mg HS HANSEL Administration ASSESSMENT/PLAN: Patient is a 57 year old female with past medical history of COPD (on 2L of O2 at rest and 4L while ambulating), HTN, diastolic CHF, hypothyroidism, NAVDEEP, with multiple admissions due to respiratory failure secondary to COPD exacerbation, admitted 5 days ago due to shortness of breath and fall, and now in respiratory distress. Transferred to ICU for closer monitoring. #Pulmonology 1)Acute on Chronic hypoxic and hypercapneic Respiratory Failure likely 2/2 COPD exacerbation -CXR done. -ABG prior to bipap: pH 7.18, pCO2 184, pO2 105 -Repeat ABG ordered while patient on bipap: 16/12 -Bipap: epap 20/ipap 6 -Continue IV solu-medrol 40mg IV Q6H -Continue Duoneb QID and Albuterol inhaler PRN -Continue Singulair 10mg daily -Continue Daliresp 500mcg daily -Maintain 02 saturation between 88-92% 2)NAVDEEP -BIPAP at night #Cardiology 1)Diastolic CHF -Hold home medication Lasix 20mg PO daily -Strict I&O's -Monitor Creatinine 2)CAD -Continue ASA 81mg daily and Rosuvastatin 5mg PO HS daily 3)HTN -Continue home medication Losartan 25mg daily -Continue to monitor BP 4)HLD -Continue Crestor 5mg HS #Endocrinology 1) Hypothyroidism -Continue home medication Synthroid 100mcg #Nephrology 1)Hypokalemia: 3.7 -Daily K-dur 10meq daily -will replete PRN -will continue to monitor #Psychiatry 1)Depression/Anxiety -Continue Lexapro 10mg daily #FEN -Not on any standing fluids -Hypokalemia. Replete PRN -Routine BMP monitoring -Regular diet #Prophylaxis 1)DVT -Heparin 5000 units Q12H 2)GI -not indicated at this time #Disposition -Full code -Transferred to ICU for closer monitoring. Dispo: We will continue to follow the patient. Thank you for this consultative opportunity. Visit type - Emergency Visit Emergency Visit: Yes ED Registration Date: 05/06/18 Care time: The patient presented to the Emergency Department on the above date and was hospitalized for further evaluation of their emergent condition. - New Patient This patient is new to me today: Yes Date on this admission: 05/11/18 - Critical Care Critical Care patient: Yes Total Critical Care Time (in minutes): 40 Critical Care Statement: The care of this patient involved high complexity decision making to prevent further life threatening deterioration of the patient 's condition and/or to evaluate & treat vital organ system(s) failure or risk of failure.
[2018-05-11 16:54] LABS: ARTERIAL BLD GAS O2 SATURATION 98.5 % (90-98.9); ARTERIAL BLOOD GAS pH 7.26 (7.35-7.45)
[2018-05-11 16:55] LABS: ALLENS TEST POSITIVE
[2018-05-11 17:05] LABS: ARTERIAL BLOOD GAS BASE EXCESS 29.7 meq/l (-2-2)
[2018-05-11] MEDS: methylPREDNISolone NA SUCC 40 MG/1 ML VIAL IVPUSH SCH (21:26)
[2018-05-11] MEDS: MONTELUKAST NA 10 MG TABLET PO SCH (21:26)
[2018-05-11] MEDS: MUPIROCIN 2% TOPICAL OINTMENT FOR DECOLONIZATION NS SCH (21:58)
[2018-05-11] MEDS: ROSUVASTATIN CA 5 MG TABLET (FP) PO SCH (21:59)
[2018-05-11] MEDS ORDERED: CHLORHEXIDINE GLUCONATE 4% CLEANSER FOR DECOLONIZATION TP SCH (22:00)
[2018-05-11] MEDS ORDERED: ALBUTEROL SO4 0.083% IH SOL 2.5 MG/3 ML VIAL.NEB. NEB PRN (22:04)
[2018-05-11] MEDS ORDERED: ACETAMINOPHEN 325 MG TABLET (FP) PO PRN (22:04)
[2018-05-11] MEDS ORDERED: ALBUTEROL SO4 8 GM HFA INHALER IH PRN (22:04)
[2018-05-12] MEDS: methylPREDNISolone NA SUCC 40 MG/1 ML VIAL IVPUSH SCH ×4 (04:00→21:17)
[2018-05-12 04:45] LABS: ARTERIAL BLD GAS O2 SATURATION 98.4 % (90-98.9); ARTERIAL BLOOD GAS pH 7.35 (7.35-7.45)
[2018-05-12 04:50] LABS: ALLENS TEST POSITIVE
[2018-05-12 05:25] LABS: ARTERIAL BLOOD GAS BASE EXCESS 31.9 meq/l (-2-2)
[2018-05-12 06:11] LABS: HEMATOCRIT 33.1 % (32.4-45.2); HEMOGLOBIN 10.5 GM/dL (10.7-15.3); MCH 30.2 pg (25.7-33.7); MCHC 31.7 g/dl (32.0-36.0); MEAN CELL VOLUME 95.2 fl (80-96); MEAN PLT VOLUME 8.7 fl (7.5-11.1); PLATELET COUNT 90 K/MM3 (134-434); RBC 3.48 M/mm3 (3.60-5.2); WHITE BLOOD COUNT 5.3 K/mm3 (4.0-10.0)
[2018-05-12] MEDS ORDERED: LEVOTHYROXINE NA 100 MCG TABLET (FP) PO SCH (07:00)
--- NOTE | 2018-05-12 07:35 | PN ---
Progress Note, Physician Chief Complaint: events noted; pt was increasingly confused yesterday, ABG done showed acute CO2 retention, transferred to ICU; restarted IV steroids, NIPPV; now better, awake alert not confused no pain less SOB less cough; on O2 NC acute COPD decompansation, severe / advanced COPD; prognosis guarded; to discus further treatment and management with pulmonary ; [facility]? surgery? lung transplant? will d/w puldae marin at bedside d/w pt and and dw pt's PCP dr Navarro all the above - Current Medication List Current Medications: Active Medications Acetaminophen (Tylenol -) 650 mg PO Q6H PRN PRN Reason: FEVER AND PAIN SCALE 1-7 Albuterol Sulfate (Ventolin 0.083% Nebulizer Soln -) 1 amp NEB Q8H PRN PRN Reason: SHORT OF BREATH/WHEEZING Albuterol Sulfate (Ventolin Hfa Inhaler -) 1 puff IH Q6H PRN PRN Reason: ASTHMA Aspirin (Asa -) 81 mg PO DAILY HANSEL Chlorhexidine Gluconate (Hibiclens For Decolonization -) 1 applic TP HS [facility] Last Admin: 05/11/18 21:30 Dose: 1 applic Escitalopram Oxalate (Lexapro -) 10 mg PO DAILY HANSEL Furosemide (Lasix -) 20 mg PO DAILY HANSEL Heparin Sodium (Porcine) (Heparin -) 5,000 unit SQ BID HANSEL Levothyroxine Sodium (Synthroid -) 100 mcg PO DAILY@0700 [facility] Last Admin: 05/12/18 07:01 Dose: 100 mcg Losartan Potassium (Cozaar -) 25 mg PO DAILY [facility]ANSEL Methylprednisolone Sodium Succinate (Solu-Medrol -) 40 mg IVPUSH Q6H-IV HANSEL Last Admin: 05/12/18 04:00 Dose: 40 mg Montelukast Sodium (Singulair -) 10 mg PO HS HANSEL Mupirocin (Bactroban Ointment (For Decolonization) -) 1 applic NS BID HANSEL Stop: 05/16/18 21:59 Last Admin: 05/11/18 21:58 Dose: 1 applic Potassium Chloride (K-Dur -) 10 meq PO DAILY HANSEL Roflumilast (Daliresp -) 500 mcg PO DAILY HANSEL Rosuvastatin Calcium (Crestor -) 5 mg PO HS [facility] - Objective Vital Signs: Vital Signs Temperature 97.6 F 05/11/18 22:00 Pulse Rate 78 05/12/18 00:00 Respiratory Rate 33 H 05/12/18 00:00 Blood Pressure 137/71 05/12/18 00:00 O2 Sat by Pulse Oximetry (%) 98 05/12/18 06:56 Constitutional: Yes: Calm Eyes: Yes: Conjunctiva Clear HENT: Yes: Atraumatic Neck: Yes: Supple Cardiovascular: Yes: Regular Rate and Rhythm Respiratory: Yes: Rales, Rhonchi, Wheezes Gastrointestinal: Yes: Soft. No: Distention Genitourinary: No: CVA Tenderness - Left, CVA Tenderness - Right Musculoskeletal: No: Joint Stiffness, Joint Swelling Extremities: No: Cold, Cool, Cyanosis Edema: No Integumentary: No: Rash, Venous Stasis Changes Neurological: Yes: WNL, Alert, Oriented ...Motor Strength: WNL Psychiatric: Yes: WNL, Alert, Oriented. No: Agitated, Suicidal Ideation Labs: CBC, BMP 05/12/18 05:30 INR, PTT INR 0.89 (0.83-1.09) 05/06/18 10:30 - ....Imaging Other: Report Reviewed Assessment/Plan Patient is a 57F with history of COPD with multiple admissions for respiratory failure, CHF, HLD, HTN, hypothyroidism and NAVDEEP complaining of shortness of breath, s/p falling at home, mechanical fall no LOC. ICU Acute on chronic COPD exac, acute CO2 retention iv steroids, O2 NC, NIPPV, nebs prognosis guarded falls decubs DVT pfx PT rehab and CM eval for SNF, pulmonary rehab when stable d/w pt and staff t time 40 min
[2018-05-12 07:59] LABS: BLOOD UREA NITROGEN 21 mg/dL (7-18); CALCIUM 8.4 mg/dL (8.5-10.1); CHLORIDE 79 mmol/L (98-107); CREATININE 0.3 mg/dL (0.55-1.3); GLUCOSE,RANDOM 161 mg/dL (74-106); MAGNESIUM 1.8 mg/dL (1.8-2.4); PHOSPHOROUS 2.5 mg/dL (2.5-4.9); POTASSIUM 4.1 mmol/L (3.5-5.1); SODIUM 141 mmol/L (136-145)
[2018-05-12 08:17] LABS: ARTERIAL BLOOD GAS PO2 75.1 mmHg (80-100); ARTERIAL BLOOD GAS pH 7.35 (7.35-7.45)
[2018-05-12 08:18] LABS: ARTERIAL BLD GAS O2 SATURATION 95.5 % (90-98.9); ARTERIAL BLOOD GAS BASE EXCESS 31.1 meq/l (-2-2)
[2018-05-12 08:19] LABS: ALLENS TEST POSITIVE
[2018-05-12] MEDS ORDERED: MAGNESIUM OXIDE 400 MG TABLET (FP) PO ONE (08:32)
[2018-05-12 08:47] LABS: ANION GAP -3 MMOL/L (8-16); CO2 65 mmol/L (21-32)
[2018-05-12] MEDS ORDERED: HEPARIN NA (PORCINE) 5,000 UNITS/ML 1ML VIAL SQ SCH (10:00)
[2018-05-12] MEDS ORDERED: ESCITALOPRAM OXALATE 10 MG TABLET (FP) PO SCH (10:00)
[2018-05-12] MEDS ORDERED: FUROSEMIDE 20 MG TABLET (FP) PO SCH (10:00)
[2018-05-12] MEDS ORDERED: ROFLUMILAST 500 MCG TABLET PO SCH (10:00)
[2018-05-12] MEDS ORDERED: POTASSIUM CHLORIDE TABS 10 MEQ TABLET.ER (FP) PO SCH (10:00)
[2018-05-12] MEDS ORDERED: LOSARTAN POTASSIUM 25 MG TABLET PO SCH (10:00)
[2018-05-12] MEDS ORDERED: ASPIRIN 81 MG CHEWABLE TABLETS PO SCH (10:00)
[2018-05-12] MEDS ORDERED: PT OWN MED DRAWER 7, Y5N ONE (10:47)
[2018-05-12] MEDS: MUPIROCIN 2% TOPICAL OINTMENT FOR DECOLONIZATION NS SCH (11:30)
--- NOTE | 2018-05-12 12:39 | PN ---
Teaching Attending Note Name of Resident: Tita Esquivel ATTENDING PHYSICIAN STATEMENT I saw and evaluated the patient. I reviewed the resident's note and discussed the case with the resident. I agree with the resident's findings and plan as documented. SUBJECTIVE: Pt seen and examined in the ICU. Remains on BiPAP, more alert, awake. ABG showing improving acute on chronic respiratory acidosis. OBJECTIVE: Vital Signs Period Temp Pulse Resp BP Sys/Domínguez Pulse Ox Last 24 Hr 97.3 F-98.7 F 61-102 20-33 103-154/0-79 96-98 Intake & Output 05/09/18 05/10/18 05/11/18 05/12/18 23:59 23:59 23:59 23:59 Intake Total 250 300 820 20 Balance 250 300 820 20 Weight 71.696 kg 68.039 kg 72.3 kg Gen: drowsy on BiPAP but arousable Heart: RRR Lung: distant breath sounds, scattered rhonchi Abd: soft, nontender Ext: + edema CBC, BMP 05/12/18 05:30 05/12/18 05:30 Active Medications Acetaminophen (Tylenol -) 650 mg PO Q6H PRN PRN Reason: FEVER AND PAIN SCALE 1-7 Albuterol Sulfate (Ventolin 0.083% Nebulizer Soln -) 1 amp NEB Q8H PRN PRN Reason: SHORT OF BREATH/WHEEZING Last Admin: 05/12/18 10:43 Dose: 1 amp Albuterol Sulfate (Ventolin Hfa Inhaler -) 1 puff IH Q6H PRN PRN Reason: ASTHMA Aspirin (Asa -) 81 mg PO DAILY [facility] Last Admin: 05/12/18 11:11 Dose: 81 mg Chlorhexidine Gluconate (Hibiclens For Decolonization -) 1 applic TP HS [facility] Last Admin: 05/11/18 21:30 Dose: 1 applic Escitalopram Oxalate (Lexapro -) 10 mg PO DAILY [facility] Last Admin: 05/12/18 11:11 Dose: 10 mg Furosemide (Lasix -) 20 mg PO DAILY [facility] Last Admin: 05/12/18 11:11 Dose: 20 mg Heparin Sodium (Porcine) (Heparin -) 5,000 unit SQ BID [facility] Last Admin: 05/12/18 11:12 Dose: 5,000 unit Levothyroxine Sodium (Synthroid -) 100 mcg PO DAILY@0700 [facility] Last Admin: 05/12/18 07:01 Dose: 100 mcg Losartan Potassium (Cozaar -) 25 mg PO DAILY [facility] Last Admin: 05/12/18 11:11 Dose: 25 mg Methylprednisolone Sodium Succinate (Solu-Medrol -) 40 mg IVPUSH Q6H-IV [facility] Last Admin: 05/12/18 08:31 Dose: 40 mg Montelukast Sodium (Singulair -) 10 mg PO [facility] Mupirocin (Bactroban Ointment (For Decolonization) -) 1 applic NS BID [facility] Stop: 05/16/18 21:59 Last Admin: 05/12/18 11:30 Dose: Not Given Potassium Chloride (K-Dur -) 10 meq PO DAILY [facility] Last Admin: 05/12/18 11:11 Dose: 10 meq Roflumilast (Daliresp -) 500 mcg PO DAILY [facility] Last Admin: 05/12/18 11:12 Dose: 500 mcg Rosuvastatin Calcium (Crestor -) 5 mg PO [facility] ASSESSMENT AND PLAN: Acute on Chronic Hypoxic and Hypercapneic Respiratory Failure Acute COPD Exacerbation LV Diastolic Dysfunction NAVDEEP/OHS HTN Hypothyroidism - continue medrol at current dose - inhaled bronchodilators standing and PRN - O2 to keep Spo2 88-92% - BiPAP at night and PRN during day - continue daliresp - needs trilogy device fixed - PO as tolerated - DVT prophylaxis - can monitor on floor critical care time spent in reviewing chart, evaluating patient and formulating plan 35 min
[2018-05-12 12:56] VITALS: BMI 32.1
--- NOTE | 2018-05-12 13:56 | PN ---
Physical Exam: SUBJECTIVE: Patient seen and examined at bedside. Remained on bipap overnight. More awake, alert and oriented this morning. At noon, eating lunch, sitting on a chair on nasal cannula. Saturation maintained >90%. ABG showed improving respiratory acidosis. ABG: pH 7.35, pCO2 116, pO2 75.1 Bipap settings overnight: 12/11 OBJECTIVE: Vital Signs Period Temp Pulse Resp BP Sys/Domínguez Pulse Ox Last 24 Hr 97.3 F-98.7 F 61-102 20-33 103-154/0-79 96-98 GENERAL: Awake, alert, oriented, in mild respiratory distress, on nasal cannula EYES: PERRLA, EOMI, sclera anicteric, conjunctiva clear. NECK: Trachea midline, full range of motion, supple. LUNGS: Diminished breath sounds bilaterally, +scattered wheezing HEART: Regular rate and rhythm, S1, S2 without murmur, rub or gallop. ABDOMEN: Soft, nontender, nondistended, normoactive bowel sounds. EXTREMITIES: 2+ pulses, warm, well-perfused, +1 pitting edema. NEUROLOGICAL: Cranial nerves II through XII grossly intact. Labored speech, gait not observed. SKIN: Warm, dry, normal turgor, no rashes or lesions noted Laboratory Results - last 24 hr 05/11/18 05/11/18 05/12/18 14:35 16:40 04:30 WBC RBC Hgb Hct MCV MCH MCHC RDW Plt Count MPV Anticoagulation Therapy No Result Required. No Result Required. Puncture Site Left radial Right radial No Result Required. ABG pH 7.18 L* D 7.26 L 7.35 ABG pCO2 at Pt Temp 184.0 H* 143.0 H* D 117.0 H* D ABG pO2 at Pt Temp 105.0 H D 113.0 H 110.0 H ABG HCO3 65.3 H* 62.4 H* 63.2 H* ABG O2 Sat (Measured) 97.2 98.5 98.4 ABG O2 Content 15.8 15.6 14.1 L ABG Base Excess 30.8 H* 29.7 H* 31.9 H* Everton Test Positive Positive Positive O2 Delivery Device Nasal cannula No Result Required. No Result Required. Oxygen Flow Rate 3l No Result Required. No Result Required. Vent Mode No Result Required. No Result Required. Vent Rate No Result Required. No Result Required. Mechanical Rate No Result Required. No Result Required. PEEP 0.0 Pressure Support Vent No Result Required. No Result Required. Sodium Potassium Chloride Carbon Dioxide Anion Gap BUN Creatinine Creat Clearance w eGFR Random Glucose Calcium Phosphorus Magnesium 05/12/18 05/12/18 05/12/18 05:30 05:30 08:03 WBC 5.3 RBC 3.48 L Hgb 10.5 L Hct 33.1 MCV 95.2 MCH 30.2 MCHC 31.7 L RDW 13.0 Plt Count 90 L D MPV 8.7 Anticoagulation Therapy Puncture Site Right radial ABG pH 7.35 ABG pCO2 at Pt Temp 116.0 H* ABG pO2 at Pt Temp 75.1 L D ABG HCO3 62.1 H* ABG O2 Sat (Measured) 95.5 ABG O2 Content 14.1 L ABG Base Excess 31.1 H* Everton Test Positive O2 Delivery Device Bipap Oxygen Flow Rate Yes Vent Mode Vent Rate Mechanical Rate PEEP Pressure Support Vent Ipap20/epap6 Sodium 141 Potassium 4.1 Chloride 79 L Carbon Dioxide 65 H Anion Gap -3 L BUN 21 H Creatinine 0.3 L Creat Clearance w eGFR > 60 Random Glucose 161 H Calcium 8.4 L Phosphorus 2.5 Magnesium 1.8 Active Medications Generic Name Dose Route Start Last Admin Trade Name Freq PRN Reason Stop Dose Admin Acetaminophen 650 mg 05/11/18 22:04 Tylenol - PO Q6H PRN FEVER AND PAIN SCALE 1-7 Albuterol Sulfate 1 puff 05/11/18 22:04 Ventolin Hfa Inhaler - IH Q6H PRN ASTHMA Aspirin 81 mg 05/12/18 10:00 05/12/18 11:11 Asa - PO 81 mg DAILY HANSEL Administration Chlorhexidine Gluconate 1 applic 05/11/18 22:00 05/11/18 21:30 Hibiclens For Decolonization - TP 1 applic HS HANSEL Administration Escitalopram Oxalate 10 mg 05/12/18 10:00 05/12/18 11:11 Lexapro - PO 10 mg DAILY HANSEL Administration Furosemide 20 mg 05/12/18 10:00 05/12/18 11:11 Lasix - PO 20 mg DAILY HANSEL Administration Heparin Sodium (Porcine) 5,000 unit 05/12/18 10:00 05/12/18 11:12 Heparin - SQ 5,000 unit BID HANSEL Administration Levothyroxine Sodium 100 mcg 05/12/18 07:00 05/12/18 07:01 Synthroid - PO 100 mcg DAILY@0700 HANSEL Administration Losartan Potassium 25 mg 05/12/18 10:00 05/12/18 11:11 Cozaar - PO 25 mg DAILY HANSEL Administration Methylprednisolone Sodium Succinate 40 mg 05/11/18 21:00 05/12/18 08:31 Solu-Medrol - IVPUSH 40 mg Q6H-IV HANSEL Administration Montelukast Sodium 10 mg 05/12/18 22:00 Singulair - PO HS HANSEL Mupirocin 1 applic 05/11/18 22:00 05/12/18 11:30 Bactroban Ointment (For Decolonization) - NS 05/16/18 21:59 Not Given BID HANSEL Potassium Chloride 10 meq 05/12/18 10:00 05/12/18 11:11 K-Dur - PO 10 meq DAILY HANSEL Administration Roflumilast 500 mcg 05/12/18 10:00 05/12/18 11:12 Daliresp - PO 500 mcg DAILY HANSEL Administration Rosuvastatin Calcium 5 mg 05/12/18 22:00 Crestor - PO HS HANSEL ASSESSMENT/PLAN: Patient is a 57 year old female with past medical history of COPD (on 2L of O2 at rest and 4L while ambulating), HTN, diastolic CHF, hypothyroidism, NAVDEEP, with multiple admissions due to respiratory failure secondary to COPD exacerbation, admitted 5 days ago due to shortness of breath and fall, and now in respiratory distress. Transferred to ICU for closer monitoring. #Pulmonology 1)Acute on Chronic hypoxic and hypercapneic Respiratory Failure likely 2/2 COPD exacerbation -CXR done. -Respiratory acidosis improved today: pH 7.35, pCO2 116, pO2 75.1 -Bipap overnight: epap 17/ipap 5 -Continue IV solu-medrol 40mg IV Q6H -Continue Albuterol Neb and inhaler PRN -Continue Singulair 10mg daily -Continue Daliresp 500mcg daily -Maintain 02 saturation between 88-92% 2)NAVDEEP -BIPAP at night #Cardiology 1)Diastolic CHF -Hold home medication Lasix 20mg PO daily -Strict I&O's -Monitor Creatinine 2)CAD -Continue ASA 81mg daily and Rosuvastatin 5mg PO HS daily 3)HTN -Continue home medication Losartan 25mg daily -Continue to monitor BP 4)HLD -Continue Crestor 5mg HS #Endocrinology 1) Hypothyroidism -Continue home medication Synthroid 100mcg #Nephrology 1)Hypokalemia: improved -K 4.1 -Daily K-dur 10meq daily -will replete PRN -will continue to monitor 2)Hypomagnesemia: 1.8 -PO Mg given -replete PRN #Psychiatry 1)Depression/Anxiety -Continue Lexapro 10mg daily #FEN -Not on any standing fluids -HypoMg, replete PRN -Routine BMP monitoring -Regular diet #Prophylaxis 1)DVT -Heparin 5000 units Q12H 2)GI -not indicated at this time #Disposition -Full code -Transfer to tele Dispo: We will continue to follow the patient. Thank you for this consultative opportunity. Visit type - Emergency Visit Emergency Visit: Yes ED Registration Date: 05/06/18 Care time: The patient presented to the Emergency Department on the above date and was hospitalized for further evaluation of their emergent condition. - New Patient This patient is new to me today: Yes Date on this admission: 05/12/18 - Critical Care Critical Care patient: Yes Total Critical Care Time (in minutes): 40 Critical Care Statement: The care of this patient involved high complexity decision making to prevent further life threatening deterioration of the patient 's condition and/or to evaluate & treat vital organ system(s) failure or risk of failure.
[2018-05-12] MEDS: ALBUTEROL SO4 0.083% IH SOL 2.5 MG/3 ML VIAL.NEB. NEB PRN ×2 (14:10→20:55)
[2018-05-12] MEDS ORDERED: ALBUTEROL SO4 8 GM HFA INHALER IH PRN (17:05)
[2018-05-12] MEDS: MONTELUKAST NA 10 MG TABLET PO SCH (21:17)
[2018-05-12] MEDS: HEPARIN NA (PORCINE) 5,000 UNITS/ML 1ML VIAL SQ SCH (21:17)
[2018-05-12] MEDS: ROSUVASTATIN CA 5 MG TABLET (FP) PO SCH (21:28)
[2018-05-12] MEDS ORDERED: MONTELUKAST NA 10 MG TABLET PO SCH (22:00)
[2018-05-12] MEDS ORDERED: ROSUVASTATIN CA 5 MG TABLET (FP) PO SCH (22:00)
[2018-05-13] MEDS: methylPREDNISolone NA SUCC 40 MG/1 ML VIAL IVPUSH SCH ×4 (02:55→21:57)
[2018-05-13] MEDS: LEVOTHYROXINE NA 100 MCG TABLET (FP) PO SCH (06:39)
[2018-05-13] MEDS ORDERED: PT OWN MED DRAWER 7, Y5N ONE (09:09)
--- NOTE | 2018-05-13 09:33 | PN ---
Progress Note, Physician Chief Complaint: iv steroids nebs and O2, Bipap prn - better no SOB, awake alert no CP on 4w noted R hand echymoses, d/w nurse on 7w she had an IV on 7w which got infiltrated during ICU transfer 2 days ago, was bleeding locally and now pt has a small dorsal hand hematoma which is slowly expanding; she also had ABGs done in ICU but hand is warm well perfused and radial pulses good; will ask hand surgery dr Charlie stovall - Current Medication List Current Medications: Active Medications Acetaminophen (Tylenol -) 650 mg PO Q6H PRN PRN Reason: FEVER AND PAIN SCALE 1-7 Albuterol Sulfate (Ventolin 0.083% Nebulizer Soln -) 1 amp NEB Q4H PRN PRN Reason: SHORT OF BREATH/WHEEZING Last Admin: 05/12/18 20:55 Dose: 1 amp Albuterol Sulfate (Ventolin Hfa Inhaler -) 1 puff IH Q6H PRN PRN Reason: ASTHMA Aspirin (Asa -) 81 mg PO DAILY [facility] Escitalopram Oxalate (Lexapro -) 10 mg PO DAILY [facility] Furosemide (Lasix -) 20 mg PO DAILY [facility] Heparin Sodium (Porcine) (Heparin -) 5,000 unit SQ BID [facility] Last Admin: 05/12/18 21:17 Dose: 5,000 unit Levothyroxine Sodium (Synthroid -) 100 mcg PO DAILY@0700 [facility] Last Admin: 05/13/18 06:39 Dose: 100 mcg Losartan Potassium (Cozaar -) 25 mg PO DAILY [facility] Methylprednisolone Sodium Succinate (Solu-Medrol -) 40 mg IVPUSH Q6H-IV [facility] Last Admin: 05/13/18 02:55 Dose: 40 mg Montelukast Sodium (Singulair -) 10 mg PO HS [facility] Last Admin: 05/12/18 21:17 Dose: 10 mg Potassium Chloride (K-Dur -) 10 meq PO DAILY [facility] Roflumilast (Daliresp -) 500 mcg PO DAILY [facility] Rosuvastatin Calcium (Crestor -) 5 mg PO HS [facility] Last Admin: 05/12/18 21:28 Dose: 5 mg - Objective Vital Signs: Vital Signs Temperature 98.2 F 05/13/18 05:35 Pulse Rate 83 05/13/18 05:35 Respiratory Rate 25 H 05/13/18 05:35 Blood Pressure 141/65 05/13/18 05:35 O2 Sat by Pulse Oximetry (%) 95 05/13/18 02:08 Constitutional: Yes: No Distress, Calm Eyes: Yes: Conjunctiva Clear HENT: Yes: Atraumatic Neck: Yes: Supple Cardiovascular: Yes: Regular Rate and Rhythm Respiratory: Yes: Rales, Wheezes Gastrointestinal: Yes: Soft. No: Distention Genitourinary: No: CVA Tenderness - Left, CVA Tenderness - Right, Hematuria Musculoskeletal: Yes: Other (R hand dorsal echymoses) Extremities: No: Cold, Cool, Cyanosis Edema: No Integumentary: No: Rash, Venous Stasis Changes Neurological: Yes: WNL, Alert, Oriented ...Motor Strength: WNL Psychiatric: Yes: WNL, Alert, Oriented. No: Agitated, Suicidal Ideation Labs: CBC, BMP 05/12/18 05:30 05/12/18 05:30 INR, PTT INR 0.89 (0.83-1.09) 05/06/18 10:30 - ....Imaging Other: Report Reviewed Assessment/Plan Patient is a 57F with history of COPD with multiple admissions for respiratory failure, CHF, HLD, HTN, hypothyroidism and NAVDEEP complaining of shortness of breath, s/p falling at home, mechanical fall no LOC. s/p ICU short stay for Acute on chronic COPD exac, acute CO2 retention iv steroids, O2 NC, NIPPV, nebs R hand hematoma: hand surgery eval; xrays; no signs of ischemia or compartment sd at this point prognosis guarded falls decubs DVT pfx PT rehab and CM eval for SNF, pulmonary rehab when stable d/w pt and staff d/w pt's and pt's PCP dr Navarro
[2018-05-13] MEDS: FUROSEMIDE 20 MG TABLET (FP) PO SCH (09:39)
[2018-05-13] MEDS: ESCITALOPRAM OXALATE 10 MG TABLET (FP) PO SCH (09:39)
[2018-05-13] MEDS: ROFLUMILAST 500 MCG TABLET PO SCH (09:40)
[2018-05-13] MEDS: POTASSIUM CHLORIDE TABS 10 MEQ TABLET.ER (FP) PO SCH (09:40)
[2018-05-13] MEDS: LOSARTAN POTASSIUM 25 MG TABLET PO SCH (09:40)
[2018-05-13] MEDS: ASPIRIN 81 MG CHEWABLE TABLETS PO SCH (09:41)
--- NOTE | 2018-05-13 13:53 | CON.ORTH ---
Consult Reason for Consultation:: right hand pain/swelling - Past Medical History [employer]: No: Alzheimer's Cardio/Vascular: Yes: CHF, HTN, Hyperlipdemia Pulmonary: Yes: COPD, O2 Dependent, Sleep Apnea Gastrointestinal: No: Ascites Hepatobiliary: No: Cirrhosis Renal/: No: Renal Failure ...LMP: 06/03/14 ...: No Infectious Disease: Yes: Other (pneumonia) Musculoskeletal: Yes: Chronic low back pain Endocrine: Yes: Hypothyroidism - Alcohol/Substance Use Hx Alcohol Use: No History of Substance Use: reports: None - Smoking History Smoking history: Never smoked Have you smoked in the past 12 months: No If you are a former smoker, when did you quit?: 8 years ago - Social History ADL: Family Assistance History of Recent Travel: No Home Medications - Allergies Allergies/Adverse Reactions: Allergies Allergy/AdvReac Type Severity Reaction Status Date / Time Penicillins Allergy Severe Difficulty Verified 05/06/18 09:56 Breathing - Home Medications Home Medications: Ambulatory Orders Levothyroxine [Synthroid -] 100 mcg PO DAILY@0700 tablet 06/24/17 Losartan Potassium [Cozaar -] 25 mg PO DAILY #30 tablet 06/24/17 Roflumilast [Daliresp] 500 mcg PO DAILY #30 tablet 06/24/17 Escitalopram Oxalate [Lexapro -] 10 mg PO DAILY 08/31/17 Potassium Chloride [K-Dur -] 10 meq PO DAILY 08/31/17 Aspirin [ASA -] 81 mg PO DAILY 02/01/18 Albuterol Sulfate Inhaler - [Ventolin HFA Inhaler -] 1 - 2 inh PO Q6H PRN Montelukast Sodium [Singulair] 10 mg PO DAILY 04/05/18 Rosuvastatin [Crestor -] 5 mg PO HS 04/05/18 Albuterol 0.083% Nebulizer Colette [Ventolin 0.083% Nebulizer Soln -] 1 amp NEB Q8H PRN 05/06/18 Acetaminophen [Tylenol .Regular Strength -] 650 mg PO Q6H PRN tablet 05/10/18 Furosemide [Lasix -] 20 mg PO DAILY tablet 05/10/18 Heparin - 5,000 unit SQ BID vial 05/10/18 predniSONE [Deltasone -] 40 mg PO DAILY #60 tablet 05/10/18 Physical Exam for Ortho Vital Signs: Vital Signs Temperature 98.3 F 05/13/18 09:00 Pulse Rate 94 H 05/13/18 09:00 Respiratory Rate 25 H 05/13/18 09:00 Blood Pressure 125/80 05/13/18 09:00 O2 Sat by Pulse Oximetry (%) 99 05/13/18 09:00 Labs: CBC, BMP 05/12/18 05:30 05/12/18 05:30 INR, PTT INR 0.89 (0.83-1.09) 05/06/18 10:30 - Upper Extremity Hand: Yes: Right, Hematoma, Limited ROM, Swelling, Tenderness, Other (+ swelling and ecchymosis, decr finger flexion, warm to touch, good capillary refill, no signs of compartment syndrome, 2 + pulses b/l, nvi) Imaging - Results X-ray: Report Reviewed, Image Reviewed Assessment/Plan 57 year old female with past medical history of COPD (on 2L of O2 at rest and 4L while ambulating), HTN, diastolic CHF, hypothyroidism, NAVDEEP, with multiple admissions due to respiratory failure secondary to COPD exacerbation, admitted 5 days ago due to shortness of breath and fall. Today, as per nursing, patient was noted to be more confused, in respiratory distress. ABG and CXR ordered. She was placed on bipap, but was getting agitated and kept on removing the mask. She was saturating at the 50s. Rapid response was called. Patient transferred to the ICU for closer monitoring. c/o pain, bruising and swelling of right hand for past 2 days. Pt had ABG taken from this side 2 days during the rapid response. a/p- right hand hematoma, secondary to ABG No signs of compartment syndrome/vascular compromise strict elevation ROM exercises will continue to monitor d/w Dr. Guerra
--- NOTE | 2018-05-13 14:48 | PN ---
Progress Note (short form) - Note Progress Note: Breathing feels OK. Some right hand discomfort. Intake & Output 05/10/18 05/11/18 05/12/18 05/13/18 23:59 23:59 23:59 23:59 Intake Total 300 820 780 120 Balance 300 820 780 120 Weight 150 lb 159 lb 6.307 oz 159 lb Last Vital Signs Temp Pulse Resp BP Pulse Ox 98.3 F 94 H 25 H 125/80 99 05/13/18 09:00 05/13/18 09:00 05/13/18 09:00 05/13/18 09:00 05/13/18 09:00 Active Medications Acetaminophen (Tylenol -) 650 mg PO Q6H PRN PRN Reason: FEVER AND PAIN SCALE 1-7 Albuterol Sulfate (Ventolin 0.083% Nebulizer Soln -) 1 amp NEB Q4H PRN PRN Reason: SHORT OF BREATH/WHEEZING Last Admin: 05/12/18 20:55 Dose: 1 amp Albuterol Sulfate (Ventolin Hfa Inhaler -) 1 puff IH Q6H PRN PRN Reason: ASTHMA Aspirin (Asa -) 81 mg PO DAILY [facility] Last Admin: 05/13/18 09:41 Dose: 81 mg Escitalopram Oxalate (Lexapro -) 10 mg PO DAILY [facility] Last Admin: 05/13/18 09:39 Dose: 10 mg Furosemide (Lasix -) 20 mg PO DAILY [facility] Last Admin: 05/13/18 09:39 Dose: 20 mg Heparin Sodium (Porcine) (Heparin -) 5,000 unit SQ BID [facility] Last Admin: 05/12/18 21:17 Dose: 5,000 unit Levothyroxine Sodium (Synthroid -) 100 mcg PO DAILY@0700 [facility] Last Admin: 05/13/18 06:39 Dose: 100 mcg Losartan Potassium (Cozaar -) 25 mg PO DAILY [facility] Last Admin: 05/13/18 09:40 Dose: 25 mg Methylprednisolone Sodium Succinate (Solu-Medrol -) 40 mg IVPUSH Q6H-IV [facility] Last Admin: 05/13/18 09:37 Dose: 40 mg Montelukast Sodium (Singulair -) 10 mg PO HS [facility] Last Admin: 05/12/18 21:17 Dose: 10 mg Potassium Chloride (K-Dur -) 10 meq PO DAILY [facility] Last Admin: 05/13/18 09:40 Dose: 10 meq Roflumilast (Daliresp -) 500 mcg PO DAILY [facility] Last Admin: 05/13/18 09:40 Dose: 500 mcg Rosuvastatin Calcium (Crestor -) 5 mg PO HS [facility] Last Admin: 05/12/18 21:28 Dose: 5 mg Constitutional: Yes: Anxious, NAD Eyes: Yes: EOM Intact HENT: Yes: Normocephalic Neck: Yes: Trachea Midline Cardiovascular: Yes: S1, S2 Respiratory: Yes: Diminished, no wheezing Gastrointestinal: Yes: Normal Bowel Sounds, Soft Musculoskeletal: Yes: WNL Extremities: Yes: WNL Edema: No Integumentary: Yes: Bruising Neurological: Yes: Oriented Labs: Laboratory Results - last 24 hr 05/11/18 16:40 Oxygen Flow Rate No Result Required. Problem List (1) COPD exacerbation Code(s): J44.1 - CHRONIC OBSTRUCTIVE PULMONARY DISEASE W (ACUTE) EXACERBATION (2) Acute and chronic respiratory failure with hypoxia Code(s): J96.21 - ACUTE AND CHRONIC RESPIRATORY FAILURE WITH HYPOXIA (3) Acute diastolic (congestive) heart failure Code(s): I50.31 - ACUTE DIASTOLIC (CONGESTIVE) HEART FAILURE (4) CHF (congestive heart failure) Code(s): I50.9 - HEART FAILURE, UNSPECIFIED (5) COPD exacerbation Code(s): J44.1 - CHRONIC OBSTRUCTIVE PULMONARY DISEASE W (ACUTE) EXACERBATION (6) Hyperlipidemia Code(s): E78.5 - HYPERLIPIDEMIA, UNSPECIFIED Qualifiers: Hyperlipidemia type: pure hypercholesterolemia Qualified Code(s): E78.00 - Pure hypercholesterolemia, unspecified; E78.0 - Pure hypercholesterolemia (7) Hypertension Code(s): I10 - ESSENTIAL (PRIMARY) HYPERTENSION Qualifiers: Hypertension type: essential hypertension Qualified Code(s): I10 - Essential (primary) hypertension (8) Pneumonia Code(s): J18.9 - PNEUMONIA, UNSPECIFIED ORGANISM (9) Shortness of breath Code(s): R06.02 - SHORTNESS OF BREATH (10) Sleep apnea Code(s): G47.30 - SLEEP APNEA, UNSPECIFIED Assessment/Plan A/E COPD WITH FALL INJURING RIGHT RIB CAGE/NO FRACTURE NOTED MULTIPLE CO-MORBIDITIES NOTED NIPPV NEEDED PAIN CONTROL MEDROL BRONCHODILATORS O2 SUPPLEMENTATION OOB TO CHAIR VTE PROPHYLAXIS INCENTIVE SPIROMETRY DR IVEY
[2018-05-13] MEDS: MONTELUKAST NA 10 MG TABLET PO SCH (21:57)
[2018-05-13] MEDS: ROSUVASTATIN CA 5 MG TABLET (FP) PO SCH (21:57)
[2018-05-14] MEDS: methylPREDNISolone NA SUCC 40 MG/1 ML VIAL IVPUSH SCH ×4 (02:49→22:34)
[2018-05-14] MEDS: LEVOTHYROXINE NA 100 MCG TABLET (FP) PO SCH (06:40)
[2018-05-14 07:00] LABS: HEMATOCRIT 31.4 % (32.4-45.2); HEMOGLOBIN 9.9 GM/dL (10.7-15.3); LYMPH % 1.4 % (8-40); MCH 29.5 pg (25.7-33.7); MCHC 31.4 g/dl (32.0-36.0); MEAN CELL VOLUME 93.8 fl (80-96); MEAN PLT VOLUME 8.9 fl (7.5-11.1); MONO % 3.9 % (3.8-10.2); NEUT % 94.7 % (42.8-82.8); PLATELET COUNT 97 K/MM3 (134-434); RBC 3.35 M/mm3 (3.60-5.2); RDW 13.1 % (11.6-15.6); WHITE BLOOD COUNT 7.5 K/mm3 (4.0-10.0)
--- NOTE | 2018-05-14 07:23 | PN ---
Progress Note, Physician Chief Complaint: feels better respiratory handley not confused; R hand still with dorsal echymoses up to half forearm no ischemia, arm and hand warm good radial pulses; ortho eval noted; xraus negative; hand elevation local compression as applied and local ice d/w pt and staff; avoid hand trauma pt advised do not get OOB alone call H staff if needs OOB; to have bed alarm - Current Medication List Current Medications: Active Medications Acetaminophen (Tylenol -) 650 mg PO Q6H PRN PRN Reason: FEVER AND PAIN SCALE 1-7 Albuterol Sulfate (Ventolin 0.083% Nebulizer Soln -) 1 amp NEB Q4H PRN PRN Reason: SHORT OF BREATH/WHEEZING Last Admin: 05/12/18 20:55 Dose: 1 amp Albuterol Sulfate (Ventolin Hfa Inhaler -) 1 puff IH Q6H PRN PRN Reason: ASTHMA Aspirin (Asa -) 81 mg PO DAILY [facility] Last Admin: 05/13/18 09:41 Dose: 81 mg Escitalopram Oxalate (Lexapro -) 10 mg PO DAILY [facility] Last Admin: 05/13/18 09:39 Dose: 10 mg Furosemide (Lasix -) 20 mg PO DAILY [facility] Last Admin: 05/13/18 09:39 Dose: 20 mg Heparin Sodium (Porcine) (Heparin -) 5,000 unit SQ BID [facility] Last Admin: 05/12/18 21:17 Dose: 5,000 unit Levothyroxine Sodium (Synthroid -) 100 mcg PO DAILY@0700 [facility] Last Admin: 05/14/18 06:40 Dose: 100 mcg Losartan Potassium (Cozaar -) 25 mg PO DAILY [facility] Last Admin: 05/13/18 09:40 Dose: 25 mg Methylprednisolone Sodium Succinate (Solu-Medrol -) 40 mg IVPUSH Q6H-IV [facility] Last Admin: 05/14/18 02:49 Dose: 40 mg Montelukast Sodium (Singulair -) 10 mg PO HS [facility] Last Admin: 05/13/18 21:57 Dose: 10 mg Potassium Chloride (K-Dur -) 10 meq PO DAILY [facility] Last Admin: 05/13/18 09:40 Dose: 10 meq Roflumilast (Daliresp -) 500 mcg PO DAILY [facility] Last Admin: 05/13/18 09:40 Dose: 500 mcg Rosuvastatin Calcium (Crestor -) 5 mg PO HS [facility] Last Admin: 05/13/18 21:57 Dose: 5 mg - Objective Vital Signs: Vital Signs Temperature 98 F 05/14/18 05:00 Pulse Rate 81 05/14/18 05:00 Respiratory Rate 22 H 05/14/18 05:00 Blood Pressure 127/73 05/14/18 05:00 O2 Sat by Pulse Oximetry (%) 98 05/14/18 01:57 Constitutional: Yes: No Distress, Calm Eyes: Yes: Conjunctiva Clear HENT: Yes: Atraumatic Neck: Yes: Supple Cardiovascular: Yes: Regular Rate and Rhythm Respiratory: Yes: Rales Gastrointestinal: Yes: Soft. No: Distention Genitourinary: No: CVA Tenderness - Left, CVA Tenderness - Right, Hematuria Musculoskeletal: Yes: Joint Swelling (R hand see above echymoses and hematoma). No: Joint Stiffness Extremities: No: Calf Tenderness, Cold, Cool, Cyanosis Integumentary: No: Rash, Venous Stasis Changes Neurological: Yes: WNL, Alert, Oriented ...Motor Strength: WNL Psychiatric: Yes: WNL, Alert, Oriented. No: Agitated, Suicidal Ideation Labs: INR, PTT INR 0.89 (0.83-1.09) 05/06/18 10:30 - ....Imaging Other: Report Reviewed Assessment/Plan Patient is a 57F with history of COPD with multiple admissions for respiratory failure, CHF, HLD, HTN, hypothyroidism and NAVDEEP complaining of shortness of breath, s/p falling at home, mechanical fall no LOC. s/p ICU short stay for Acute on chronic COPD exac, acute CO2 retention iv steroids, O2 NC, NIPPV, nebs R hand hematoma: hand surgery eval noted; xrays negative ; no signs of ischemia or compartment sd at this point; ice compression and elevation d/w pt and staff prognosis guarded falls decubs DVT pfx, bed alarm and do not get OOB alone PT rehab and CM eval for SNF, pulmonary rehab when stable d/w pt and staff d/w pt's
[2018-05-14 07:46] LABS: ALK PHOS 82 U/L (45-117); BILIRUBIN,TOTAL 0.8 mg/dL (0.2-1); BLOOD UREA NITROGEN 25 mg/dL (7-18); CALCIUM 8.5 mg/dL (8.5-10.1); CHLORIDE 83 mmol/L (98-107); CREATININE 0.3 mg/dL (0.55-1.3); GLUCOSE,RANDOM 214 mg/dL (74-106); POTASSIUM 3.6 mmol/L (3.5-5.1); SGOT/AST 9 U/L (15-37); SGPT/ALT 29 U/L (13-61); SODIUM 140 mmol/L (136-145); TOT PROT 5.2 g/dl (6.4-8.2)
[2018-05-14 08:36] LABS: ANION GAP 1 MMOL/L (8-16)
[2018-05-14 08:37] LABS: CO2 56 mmol/L (21-32)
[2018-05-14] MEDS: ACETAMINOPHEN 325 MG TABLET (FP) PO PRN ×2 (09:36→22:36)
[2018-05-14] MEDS: POTASSIUM CHLORIDE TABS 10 MEQ TABLET.ER (FP) PO SCH (09:37)
[2018-05-14] MEDS: LOSARTAN POTASSIUM 25 MG TABLET PO SCH (09:37)
[2018-05-14] MEDS: FUROSEMIDE 20 MG TABLET (FP) PO SCH (09:37)
[2018-05-14] MEDS: ESCITALOPRAM OXALATE 10 MG TABLET (FP) PO SCH (09:38)
[2018-05-14] MEDS: ASPIRIN 81 MG CHEWABLE TABLETS PO SCH (09:38)
[2018-05-14] MEDS: HEPARIN NA (PORCINE) 5,000 UNITS/ML 1ML VIAL SQ SCH ×2 (09:39→22:34)
[2018-05-14] MEDS: ROFLUMILAST 500 MCG TABLET PO SCH (10:03)
[2018-05-14 10:08] LABS: ANISOCYTOSIS 0; MACROCYTOSIS 0; PLATELET ESTIMATE DECREASED; TARGET CELLS 1+
--- NOTE | 2018-05-14 10:49 | PN ---
Progress Note (short form) - Note Progress Note: Ortho Pt seen and examined- right hand slightly improved. Selected Entries 05/14/18 05:00 Temperature 98 F Pulse Rate 81 Respiratory 22 H Rate Blood Pressure 127/73 Laboratory Tests 05/14/18 05:30 WBC 7.5 Hgb 9.9 L Hct 31.4 L Plt Count 97 L + swelling and ecchymosis, less ttp, incr rom, nvi a/p no surgical intervention strict elevation ice rom exercises will follow d/w Dr. Guerra
[2018-05-14] MEDS: ALBUTEROL SO4 0.083% IH SOL 2.5 MG/3 ML VIAL.NEB. NEB PRN ×2 (11:30→21:35)
--- NOTE | 2018-05-14 11:47 | PN ---
Progress Note, Physician History of Present Illness: PULMONARY ALERT,COMFORTABLE,-T[place]NEA - Current Medication List Current Medications: Active Medications Acetaminophen (Tylenol -) 650 mg PO Q6H PRN PRN Reason: FEVER AND PAIN SCALE 1-7 Last Admin: 05/14/18 09:36 Dose: 650 mg Albuterol Sulfate (Ventolin 0.083% Nebulizer Soln -) 1 amp NEB Q4H PRN PRN Reason: SHORT OF BREATH/WHEEZING Last Admin: 05/14/18 11:30 Dose: 1 amp Albuterol Sulfate (Ventolin Hfa Inhaler -) 1 puff IH Q6H PRN PRN Reason: ASTHMA Aspirin (Asa -) 81 mg PO DAILY [facility] Last Admin: 05/14/18 09:38 Dose: 81 mg Escitalopram Oxalate (Lexapro -) 10 mg PO DAILY [facility] Last Admin: 05/14/18 09:38 Dose: 10 mg Furosemide (Lasix -) 20 mg PO DAILY [facility] Last Admin: 05/14/18 09:37 Dose: 20 mg Heparin Sodium (Porcine) (Heparin -) 5,000 unit SQ BID [facility] Last Admin: 05/14/18 09:39 Dose: 5,000 unit Levothyroxine Sodium (Synthroid -) 100 mcg PO DAILY@0700 [facility] Last Admin: 05/14/18 06:40 Dose: 100 mcg Losartan Potassium (Cozaar -) 25 mg PO DAILY [facility] Last Admin: 05/14/18 09:37 Dose: 25 mg Methylprednisolone Sodium Succinate (Solu-Medrol -) 40 mg IVPUSH Q8H [facility] Last Admin: 05/14/18 09:38 Dose: 40 mg Montelukast Sodium (Singulair -) 10 mg PO HS [facility] Last Admin: 05/13/18 21:57 Dose: 10 mg Potassium Chloride (K-Dur -) 10 meq PO DAILY [facility] Last Admin: 05/14/18 09:37 Dose: 10 meq Roflumilast (Daliresp -) 500 mcg PO DAILY [facility] Last Admin: 05/14/18 10:03 Dose: 500 mcg Rosuvastatin Calcium (Crestor -) 5 mg PO HS [facility] Last Admin: 05/13/18 21:57 Dose: 5 mg - Objective Vital Signs: Vital Signs Temperature 98 F 05/14/18 05:00 Pulse Rate 81 05/14/18 05:00 Respiratory Rate 22 H 05/14/18 05:00 Blood Pressure 127/73 05/14/18 05:00 O2 Sat by Pulse Oximetry (%) 98 05/14/18 01:57 Constitutional: Yes: Well Nourished, Calm Eyes: Yes: WNL HENT: Yes: WNL Neck: Yes: WNL Cardiovascular: Yes: Regular Rate and Rhythm, S1, S2 Respiratory: Yes: Diminished Gastrointestinal: Yes: Normal Bowel Sounds, Soft Extremities: Yes: Other (ECCHYMOSIS R HAND,WRIST) Edema: No Labs: CBC, BMP 05/14/18 05:30 05/14/18 05:30 INR, PTT INR 0.89 (0.83-1.09) 05/06/18 10:30 Assessment/Plan Problem List (1) COPD exacerbation Code(s): J44.1 - CHRONIC OBSTRUCTIVE PULMONARY DISEASE W (ACUTE) EXACERBATION (2) Acute and chronic respiratory failure with hypoxia Code(s): J96.21 - ACUTE AND CHRONIC RESPIRATORY FAILURE WITH HYPOXIA (3) Acute diastolic (congestive) heart failure Code(s): I50.31 - ACUTE DIASTOLIC (CONGESTIVE) HEART FAILURE (4) CHF (congestive heart failure) Code(s): I50.9 - HEART FAILURE, UNSPECIFIED (5) COPD exacerbation Code(s): J44.1 - CHRONIC OBSTRUCTIVE PULMONARY DISEASE W (ACUTE) EXACERBATION (6) Hyperlipidemia Code(s): E78.5 - HYPERLIPIDEMIA, UNSPECIFIED Qualifiers: Hyperlipidemia type: pure hypercholesterolemia Qualified Code(s): E78.00 - Pure hypercholesterolemia, unspecified; E78.0 - Pure hypercholesterolemia (7) Hypertension Code(s): I10 - ESSENTIAL (PRIMARY) HYPERTENSION Qualifiers: Hypertension type: essential hypertension Qualified Code(s): I10 - Essential (primary) hypertension (8) Pneumonia Code(s): J18.9 - PNEUMONIA, UNSPECIFIED ORGANISM (9) Shortness of breath Code(s): R06.02 - SHORTNESS OF BREATH (10) Sleep apnea Code(s): G47.30 - SLEEP APNEA, UNSPECIFIED Assessment/Plan A/E COPD WITH FALL INJURING RIGHT RIB CAGE/NO FRACTURE NOTED MULTIPLE CO-MORBIDITIES NOTED NIPPV NEEDED PAIN CONTROL MEDROL SAME DOSE BRONCHODILATORS O2 SUPPLEMENTATION OOB TO CHAIR VTE PROPHYLAXIS INCENTIVE SPIROMETRY DR MEDEIROS
[2018-05-14] MEDS: MONTELUKAST NA 10 MG TABLET PO SCH (22:34)
[2018-05-14] MEDS: ROSUVASTATIN CA 5 MG TABLET (FP) PO SCH (22:34)
[2018-05-15] MEDS: LEVOTHYROXINE NA 100 MCG TABLET (FP) PO SCH (06:30)
--- NOTE | 2018-05-15 06:46 | PN ---
Progress Note, Physician Chief Complaint: R hand hematoma stable; respiratory stable - Current Medication List Current Medications: Active Medications Acetaminophen (Tylenol -) 650 mg PO Q6H PRN PRN Reason: FEVER AND PAIN SCALE 1-7 Last Admin: 05/14/18 22:36 Dose: 650 mg Albuterol Sulfate (Ventolin 0.083% Nebulizer Soln -) 1 amp NEB Q4H PRN PRN Reason: SHORT OF BREATH/WHEEZING Last Admin: 05/14/18 21:35 Dose: 1 amp Albuterol Sulfate (Ventolin Hfa Inhaler -) 1 puff IH Q6H PRN PRN Reason: ASTHMA Aspirin (Asa -) 81 mg PO DAILY [facility] Last Admin: 05/14/18 09:38 Dose: 81 mg Escitalopram Oxalate (Lexapro -) 10 mg PO DAILY [facility] Last Admin: 05/14/18 09:38 Dose: 10 mg Furosemide (Lasix -) 20 mg PO DAILY [facility] Last Admin: 05/14/18 09:37 Dose: 20 mg Heparin Sodium (Porcine) (Heparin -) 5,000 unit SQ BID [facility] Last Admin: 05/14/18 22:34 Dose: 5,000 unit Levothyroxine Sodium (Synthroid -) 100 mcg PO DAILY@0700 [facility] Last Admin: 05/15/18 06:30 Dose: 100 mcg Losartan Potassium (Cozaar -) 25 mg PO DAILY [facility] Last Admin: 05/14/18 09:37 Dose: 25 mg Methylprednisolone Sodium Succinate (Solu-Medrol -) 40 mg IVPUSH Q8H [facility] Last Admin: 05/14/18 22:34 Dose: 40 mg Montelukast Sodium (Singulair -) 10 mg PO HS [facility] Last Admin: 05/14/18 22:34 Dose: 10 mg Potassium Chloride (K-Dur -) 10 meq PO DAILY [facility] Last Admin: 05/14/18 09:37 Dose: 10 meq Roflumilast (Daliresp -) 500 mcg PO DAILY [facility] Last Admin: 05/14/18 10:03 Dose: 500 mcg Rosuvastatin Calcium (Crestor -) 5 mg PO HS [facility] Last Admin: 05/14/18 22:34 Dose: 5 mg - Objective Vital Signs: Vital Signs Temperature 98.0 F 05/14/18 21:00 Pulse Rate 97 H 05/14/18 21:00 Respiratory Rate 20 05/14/18 21:00 Blood Pressure 125/74 05/14/18 21:00 O2 Sat by Pulse Oximetry (%) 96 05/14/18 23:30 Constitutional: Yes: No Distress, Calm Eyes: Yes: Conjunctiva Clear HENT: Yes: Atraumatic Neck: Yes: Supple Cardiovascular: Yes: Regular Rate and Rhythm Respiratory: Yes: Rales Gastrointestinal: Yes: Soft. No: Distention Genitourinary: No: Hematuria Musculoskeletal: Yes: Other (R hand see above). No: Joint Stiffness, Joint Swelling Extremities: No: Cold, Cool Edema: No Peripheral Pulses WNL: Yes Integumentary: No: Rash, Venous Stasis Changes Neurological: Yes: WNL, Alert, Oriented ...Motor Strength: WNL Psychiatric: Yes: WNL, Alert, Oriented. No: Agitated, Suicidal Ideation Labs: CBC, BMP 05/14/18 05:30 05/14/18 05:30 INR, PTT INR 0.89 (0.83-1.09) 05/06/18 10:30 - ....Imaging Other: Report Reviewed Assessment/Plan Patient is a 57F with history of COPD with multiple admissions for respiratory failure, CHF, HLD, HTN, hypothyroidism and NAVDEEP complaining of shortness of breath, s/p falling at home, mechanical fall no LOC. s/p ICU short stay for Acute on chronic COPD exac, acute CO2 retention iv steroids, O2 NC, NIPPV, nebs R hand hematoma: hand surgery eval noted; xrays negative ; no signs of ischemia or compartment sd at this point; ice compression and elevation d/w pt and staff prognosis guarded falls decubs DVT pfx, bed alarm and do not get OOB alone PT rehab and CM eval for SNF, pulmonary rehab when stable d/w pt and staff
[2018-05-15] MEDS: ALBUTEROL SO4 0.083% IH SOL 2.5 MG/3 ML VIAL.NEB. NEB PRN ×3 (08:45→20:15)
[2018-05-15] MEDS ORDERED: PT OWN MED DRAWER 7, Y5N ONE (09:14)
[2018-05-15] MEDS: ROFLUMILAST 500 MCG TABLET PO SCH (09:23)
[2018-05-15] MEDS: LOSARTAN POTASSIUM 25 MG TABLET PO SCH (09:23)
[2018-05-15] MEDS: methylPREDNISolone NA SUCC 40 MG/1 ML VIAL IVPUSH SCH ×3 (09:23→23:45)
[2018-05-15] MEDS: HEPARIN NA (PORCINE) 5,000 UNITS/ML 1ML VIAL SQ SCH ×2 (09:23→22:12)
[2018-05-15] MEDS: ASPIRIN 81 MG CHEWABLE TABLETS PO SCH (09:23)
[2018-05-15] MEDS: ESCITALOPRAM OXALATE 10 MG TABLET (FP) PO SCH (09:24)
[2018-05-15] MEDS: POTASSIUM CHLORIDE TABS 10 MEQ TABLET.ER (FP) PO SCH (09:24)
[2018-05-15] MEDS: FUROSEMIDE 20 MG TABLET (FP) PO SCH (09:24)
--- NOTE | 2018-05-15 09:35 | PN ---
Progress Note, Physician History of Present Illness: PULMONARY ALERT,COMFORTABLE AT REST ,SLEPT WELL LSAT NIGHT ON BIPAP - Current Medication List Current Medications: Active Medications Acetaminophen (Tylenol -) 650 mg PO Q6H PRN PRN Reason: FEVER AND PAIN SCALE 1-7 Last Admin: 05/14/18 22:36 Dose: 650 mg Albuterol Sulfate (Ventolin 0.083% Nebulizer Soln -) 1 amp NEB Q4H PRN PRN Reason: SHORT OF BREATH/WHEEZING Last Admin: 05/14/18 21:35 Dose: 1 amp Albuterol Sulfate (Ventolin Hfa Inhaler -) 1 puff IH Q6H PRN PRN Reason: ASTHMA Aspirin (Asa -) 81 mg PO DAILY [facility] Last Admin: 05/15/18 09:23 Dose: 81 mg Escitalopram Oxalate (Lexapro -) 10 mg PO DAILY [facility] Last Admin: 05/15/18 09:24 Dose: 10 mg Furosemide (Lasix -) 20 mg PO DAILY [facility] Last Admin: 05/15/18 09:24 Dose: 20 mg Heparin Sodium (Porcine) (Heparin -) 5,000 unit SQ BID [facility] Last Admin: 05/15/18 09:23 Dose: 5,000 unit Levothyroxine Sodium (Synthroid -) 100 mcg PO DAILY@0700 [facility] Last Admin: 05/15/18 06:30 Dose: 100 mcg Losartan Potassium (Cozaar -) 25 mg PO DAILY [facility] Last Admin: 05/15/18 09:23 Dose: 25 mg Methylprednisolone Sodium Succinate (Solu-Medrol -) 40 mg IVPUSH Q8H [facility] Last Admin: 05/15/18 09:23 Dose: 40 mg Montelukast Sodium (Singulair -) 10 mg PO HS [facility] Last Admin: 05/14/18 22:34 Dose: 10 mg Potassium Chloride (K-Dur -) 10 meq PO DAILY [facility] Last Admin: 05/15/18 09:24 Dose: 10 meq Roflumilast (Daliresp -) 500 mcg PO DAILY [facility] Last Admin: 05/15/18 09:23 Dose: 500 mcg Rosuvastatin Calcium (Crestor -) 5 mg PO HS [facility] Last Admin: 05/14/18 22:34 Dose: 5 mg - Objective Vital Signs: Vital Signs Temperature 98.3 F 05/15/18 05:00 Pulse Rate 75 05/15/18 05:00 Respiratory Rate 20 05/15/18 05:00 Blood Pressure 123/65 05/15/18 05:00 O2 Sat by Pulse Oximetry (%) 96 05/14/18 23:30 Constitutional: Yes: Well Nourished, Calm Eyes: Yes: WNL HENT: Yes: WNL Neck: Yes: WNL Cardiovascular: Yes: Regular Rate and Rhythm, S1, S2 Respiratory: Yes: Diminished Gastrointestinal: Yes: Normal Bowel Sounds, Soft Extremities: Yes: Other (R HAND SWOLLEN ECCHYMOTIC) Edema: No Labs: CBC, BMP 05/14/18 05:30 05/14/18 05:30 INR, PTT INR 0.89 (0.83-1.09) 05/06/18 10:30 Assessment/Plan Problem List (1) COPD exacerbation Code(s): J44.1 - CHRONIC OBSTRUCTIVE PULMONARY DISEASE W (ACUTE) EXACERBATION (2) Acute and chronic respiratory failure with hypoxia Code(s): J96.21 - ACUTE AND CHRONIC RESPIRATORY FAILURE WITH HYPOXIA (3) Acute diastolic (congestive) heart failure Code(s): I50.31 - ACUTE DIASTOLIC (CONGESTIVE) HEART FAILURE (4) CHF (congestive heart failure) Code(s): I50.9 - HEART FAILURE, UNSPECIFIED (5) COPD exacerbation Code(s): J44.1 - CHRONIC OBSTRUCTIVE PULMONARY DISEASE W (ACUTE) EXACERBATION (6) Hyperlipidemia Code(s): E78.5 - HYPERLIPIDEMIA, UNSPECIFIED Qualifiers: Hyperlipidemia type: pure hypercholesterolemia Qualified Code(s): E78.00 - Pure hypercholesterolemia, unspecified; E78.0 - Pure hypercholesterolemia (7) Hypertension Code(s): I10 - ESSENTIAL (PRIMARY) HYPERTENSION Qualifiers: Hypertension type: essential hypertension Qualified Code(s): I10 - Essential (primary) hypertension (8) Pneumonia Code(s): J18.9 - PNEUMONIA, UNSPECIFIED ORGANISM (9) Shortness of breath Code(s): R06.02 - SHORTNESS OF BREATH (10) Sleep apnea Code(s): G47.30 - SLEEP APNEA, UNSPECIFIED Assessment/Plan A/E COPD WITH FALL INJURING RIGHT RIB CAGE/NO FRACTURE NOTED MULTIPLE CO-MORBIDITIES NOTED NIPPV NEEDED PAIN CONTROL MEDROL TAPER BRONCHODILATORS O2 SUPPLEMENTATION OOB TO CHAIR VTE PROPHYLAXIS INCENTIVE SPIROMETRY R HAND ELEVATION ICE PACKS TO R HAND DR MEDEIROS
[2018-05-15] MEDS: ROSUVASTATIN CA 5 MG TABLET (FP) PO SCH (22:12)
[2018-05-15] MEDS: MONTELUKAST NA 10 MG TABLET PO SCH (22:12)
[2018-05-15] MEDS: ACETAMINOPHEN 325 MG TABLET (FP) PO PRN (22:17)
[2018-05-16] MEDS: LEVOTHYROXINE NA 100 MCG TABLET (FP) PO SCH (06:20)
[2018-05-16] MEDS: ALBUTEROL SO4 0.083% IH SOL 2.5 MG/3 ML VIAL.NEB. NEB PRN ×3 (06:29→20:40)
[2018-05-16 07:59] LABS: ALBUMIN 3.3 g/dl (3.4-5.0); ALK PHOS 88 U/L (45-117); BILIRUBIN,TOTAL 0.8 mg/dL (0.2-1); BLOOD UREA NITROGEN 20 mg/dL (7-18); CALCIUM 8.4 mg/dL (8.5-10.1); CHLORIDE 79 mmol/L (98-107); CREATININE 0.5 mg/dL (0.55-1.3); GLUCOSE,RANDOM 216 mg/dL (74-106); POTASSIUM 4.4 mmol/L (3.5-5.1); SGOT/AST 18 U/L (15-37); SGPT/ALT 33 U/L (13-61); SODIUM 136 mmol/L (136-145); TOT PROT 5.5 g/dl (6.4-8.2)
[2018-05-16 08:03] LABS: BASO % 0.1 % (0-2.0); HEMATOCRIT 33.2 % (32.4-45.2); HEMOGLOBIN 10.8 GM/dL (10.7-15.3); LYMPH % 1.9 % (8-40); MCH 30.4 pg (25.7-33.7); MCHC 32.4 g/dl (32.0-36.0); MEAN PLT VOLUME 9.5 fl (7.5-11.1); MONO % 3.8 % (3.8-10.2); NEUT % 94.2 % (42.8-82.8); PLATELET COUNT 139 K/MM3 (134-434); RBC 3.54 M/mm3 (3.60-5.2); RDW 13.3 % (11.6-15.6); WHITE BLOOD COUNT 10.5 K/mm3 (4.0-10.0)
--- NOTE | 2018-05-16 08:52 | PN ---
Progress Note, Physician Chief Complaint: no new c/o in better spirtis no respiratory distress no hand pain but discomfort b/o local hematoma; hand stable pt does not want to use BIPAP - Current Medication List Current Medications: Active Medications Acetaminophen (Tylenol -) 650 mg PO Q6H PRN PRN Reason: FEVER AND PAIN SCALE 1-7 Last Admin: 05/15/18 22:17 Dose: 650 mg Albuterol Sulfate (Ventolin 0.083% Nebulizer Soln -) 1 amp NEB Q4H PRN PRN Reason: SHORT OF BREATH/WHEEZING Last Admin: 05/16/18 06:29 Dose: 1 amp Albuterol Sulfate (Ventolin Hfa Inhaler -) 1 puff IH Q6H PRN PRN Reason: ASTHMA Aspirin (Asa -) 81 mg PO DAILY [facility] Last Admin: 05/15/18 09:23 Dose: 81 mg Escitalopram Oxalate (Lexapro -) 10 mg PO DAILY [facility] Last Admin: 05/15/18 09:24 Dose: 10 mg Furosemide (Lasix -) 20 mg PO DAILY [facility] Last Admin: 05/15/18 09:24 Dose: 20 mg Heparin Sodium (Porcine) (Heparin -) 5,000 unit SQ BID [facility] Last Admin: 05/15/18 22:12 Dose: 5,000 unit Levothyroxine Sodium (Synthroid -) 100 mcg PO DAILY@0700 [facility] Last Admin: 05/16/18 06:20 Dose: 100 mcg Losartan Potassium (Cozaar -) 25 mg PO DAILY [facility] Last Admin: 05/15/18 09:23 Dose: 25 mg Methylprednisolone Sodium Succinate (Solu-Medrol -) 40 mg IVPUSH Q8H [facility] Last Admin: 05/15/18 23:45 Dose: 40 mg Montelukast Sodium (Singulair -) 10 mg PO HS [facility] Last Admin: 05/15/18 22:12 Dose: 10 mg Potassium Chloride (K-Dur -) 10 meq PO DAILY [facility] Last Admin: 05/15/18 09:24 Dose: 10 meq Roflumilast (Daliresp -) 500 mcg PO DAILY [facility] Last Admin: 05/15/18 09:23 Dose: 500 mcg Rosuvastatin Calcium (Crestor -) 5 mg PO HS [facility] Last Admin: 05/15/18 22:12 Dose: 5 mg - Objective Vital Signs: Vital Signs Temperature 97.9 F 05/16/18 05:00 Pulse Rate 80 05/16/18 05:00 Respiratory Rate 20 05/16/18 05:00 Blood Pressure 131/70 05/16/18 05:00 O2 Sat by Pulse Oximetry (%) 99 05/16/18 06:00 Constitutional: Yes: No Distress, Calm Eyes: Yes: Conjunctiva Clear HENT: Yes: Atraumatic Neck: Yes: Supple Cardiovascular: Yes: Regular Rate and Rhythm Respiratory: Yes: CTA Bilaterally Gastrointestinal: Yes: Soft. No: Distention Genitourinary: No: CVA Tenderness - Left, CVA Tenderness - Right Musculoskeletal: Yes: Other (R hand see above). No: Joint Stiffness, Joint Swelling Extremities: No: Cold, Cool, Cyanosis Edema: No Peripheral Pulses WNL: Yes Integumentary: No: Rash, Venous Stasis Changes Neurological: Yes: WNL, Alert, Oriented ...Motor Strength: WNL Psychiatric: Yes: WNL, Alert, Oriented. No: Agitated, Suicidal Ideation Labs: CBC, BMP 05/16/18 05:30 05/16/18 05:30 INR, PTT INR 0.89 (0.83-1.09) 05/06/18 10:30 - ....Imaging Other: Report Reviewed Assessment/Plan Patient is a 57F with history of COPD with multiple admissions for respiratory failure, CHF, HLD, HTN, hypothyroidism and NAVDEEP complaining of shortness of breath, s/p falling at home, mechanical fall no LOC. s/p ICU short stay for Acute on chronic COPD exac, acute CO2 retention iv steroids, O2 NC, NIPPV, nebs R hand hematoma: no signs of ischemia or compartment sd at this point; ice compression and elevation d/w pt and staff prognosis guarded falls decubs DVT pfx, PT rehab and CM eval for SNF, pulmonary rehab when stable d/w pt and staff
[2018-05-16] MEDS ORDERED: PT OWN MED DRAWER 7, Y5N ONE (09:38)
--- NOTE | 2018-05-16 09:49 | PN ---
Progress Note, Physician History of Present Illness: PULMONARY ALERT,C/O R HAND DISCOMFORT,RESP STATUS STABLE ON O2,AND BIPAP AT NIGHT - Current Medication List Current Medications: Active Medications Acetaminophen (Tylenol -) 650 mg PO Q6H PRN PRN Reason: FEVER AND PAIN SCALE 1-7 Last Admin: 05/15/18 22:17 Dose: 650 mg Albuterol Sulfate (Ventolin 0.083% Nebulizer Soln -) 1 amp NEB Q4H PRN PRN Reason: SHORT OF BREATH/WHEEZING Last Admin: 05/16/18 06:29 Dose: 1 amp Albuterol Sulfate (Ventolin Hfa Inhaler -) 1 puff IH Q6H PRN PRN Reason: ASTHMA Aspirin (Asa -) 81 mg PO DAILY [facility] Last Admin: 05/15/18 09:23 Dose: 81 mg Escitalopram Oxalate (Lexapro -) 10 mg PO DAILY [facility] Last Admin: 05/15/18 09:24 Dose: 10 mg Furosemide (Lasix -) 20 mg PO DAILY [facility] Last Admin: 05/15/18 09:24 Dose: 20 mg Heparin Sodium (Porcine) (Heparin -) 5,000 unit SQ BID [facility] Last Admin: 05/15/18 22:12 Dose: 5,000 unit Levothyroxine Sodium (Synthroid -) 100 mcg PO DAILY@0700 [facility] Last Admin: 05/16/18 06:20 Dose: 100 mcg Losartan Potassium (Cozaar -) 25 mg PO DAILY [facility] Last Admin: 05/15/18 09:23 Dose: 25 mg Methylprednisolone Sodium Succinate (Solu-Medrol -) 40 mg IVPUSH Q8H [facility] Last Admin: 05/15/18 23:45 Dose: 40 mg Montelukast Sodium (Singulair -) 10 mg PO HS [facility] Last Admin: 05/15/18 22:12 Dose: 10 mg Potassium Chloride (K-Dur -) 10 meq PO DAILY [facility] Last Admin: 05/15/18 09:24 Dose: 10 meq Roflumilast (Daliresp -) 500 mcg PO DAILY [facility] Last Admin: 05/15/18 09:23 Dose: 500 mcg Rosuvastatin Calcium (Crestor -) 5 mg PO HS [facility] Last Admin: 05/15/18 22:12 Dose: 5 mg - Objective Vital Signs: Vital Signs Temperature 97.9 F 05/16/18 05:00 Pulse Rate 80 05/16/18 05:00 Respiratory Rate 20 05/16/18 05:00 Blood Pressure 131/70 05/16/18 05:00 O2 Sat by Pulse Oximetry (%) 99 05/16/18 06:00 Constitutional: Yes: Well Nourished, Calm Eyes: Yes: WNL HENT: Yes: WNL Neck: Yes: WNL Cardiovascular: Yes: Regular Rate and Rhythm, S1, S2 Respiratory: Yes: Wheezes (FEW SCATTERED LYNN WHEEZES) Gastrointestinal: Yes: Normal Bowel Sounds Extremities: Yes: Other (R HAND ECCHYMOTIC,SWOLLEN TENDER) Edema: No Labs: CBC, BMP 05/16/18 05:30 05/16/18 05:30 INR, PTT INR 0.89 (0.83-1.09) 05/06/18 10:30 Assessment/Plan Problem List (1) COPD exacerbation Code(s): J44.1 - CHRONIC OBSTRUCTIVE PULMONARY DISEASE W (ACUTE) EXACERBATION (2) Acute and chronic respiratory failure with hypoxia Code(s): J96.21 - ACUTE AND CHRONIC RESPIRATORY FAILURE WITH HYPOXIA (3) Acute diastolic (congestive) heart failure Code(s): I50.31 - ACUTE DIASTOLIC (CONGESTIVE) HEART FAILURE (4) CHF (congestive heart failure) Code(s): I50.9 - HEART FAILURE, UNSPECIFIED (5) COPD exacerbation Code(s): J44.1 - CHRONIC OBSTRUCTIVE PULMONARY DISEASE W (ACUTE) EXACERBATION (6) Hyperlipidemia Code(s): E78.5 - HYPERLIPIDEMIA, UNSPECIFIED Qualifiers: Hyperlipidemia type: pure hypercholesterolemia Qualified Code(s): E78.00 - Pure hypercholesterolemia, unspecified; E78.0 - Pure hypercholesterolemia (7) Hypertension Code(s): I10 - ESSENTIAL (PRIMARY) HYPERTENSION Qualifiers: Hypertension type: essential hypertension Qualified Code(s): I10 - Essential (primary) hypertension (8) Pneumonia Code(s): J18.9 - PNEUMONIA, UNSPECIFIED ORGANISM (9) Shortness of breath Code(s): R06.02 - SHORTNESS OF BREATH (10) Sleep apnea Code(s): G47.30 - SLEEP APNEA, UNSPECIFIED Assessment/Plan A/E COPD WITH FALL INJURING RIGHT RIB CAGE/NO FRACTURE NOTED MULTIPLE CO-MORBIDITIES NOTED NIPPV NEEDED PAIN CONTROL MEDROL TAPER BRONCHODILATORS O2 SUPPLEMENTATION OOB TO CHAIR VTE PROPHYLAXIS INCENTIVE SPIROMETRY R HAND ELEVATION ICE PACKS TO R HAND SURGERY F/U DR MEDEIROS
[2018-05-16] MEDS: LOSARTAN POTASSIUM 25 MG TABLET PO SCH (09:53)
[2018-05-16] MEDS: ASPIRIN 81 MG CHEWABLE TABLETS PO SCH (09:53)
[2018-05-16] MEDS: methylPREDNISolone NA SUCC 40 MG/1 ML VIAL IVPUSH SCH ×3 (09:53→23:18)
[2018-05-16] MEDS: FUROSEMIDE 20 MG TABLET (FP) PO SCH (09:54)
[2018-05-16] MEDS: ROFLUMILAST 500 MCG TABLET PO SCH (09:54)
[2018-05-16] MEDS: HEPARIN NA (PORCINE) 5,000 UNITS/ML 1ML VIAL SQ SCH ×2 (09:54→21:15)
[2018-05-16] MEDS: ESCITALOPRAM OXALATE 10 MG TABLET (FP) PO SCH (09:54)
[2018-05-16] MEDS: POTASSIUM CHLORIDE TABS 10 MEQ TABLET.ER (FP) PO SCH (09:54)
[2018-05-16 10:20] LABS: ANION GAP 4 MMOL/L (8-16); CO2 53 mmol/L (21-32)
--- NOTE | 2018-05-16 10:28 | CONSULT ---
Consult Consult Specialty:: orthopedics Reason for Consultation:: Pain right hand - History of Present Illness History of Present Illness: 57y/o female c/o pain and ecchymosis of her right hand that developed after she had blood drawn and developed swelling and pain shortly after. She quickly developed ecchymosis of hand hand and proximal forearm. She states the swelling has improved over the past few days but continues to have some pain and trouble making a fist. 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 Cardio/Vascular: Yes: CHF, HTN, Hyperlipdemia Pulmonary: Yes: COPD, O2 Dependent, Sleep Apnea Gastrointestinal: No: Ascites Hepatobiliary: No: Cirrhosis Renal/: No: Renal Failure ...LMP: 06/03/14 ...: No Infectious Disease: Yes: Other (pneumonia) Musculoskeletal: Yes: Chronic low back pain Endocrine: Yes: Hypothyroidism - Alcohol/Substance Use Hx Alcohol Use: No History of Substance Use: reports: None - Smoking History Smoking history: Never smoked Have you smoked in the past 12 months: No If you are a former smoker, when did you quit?: 8 years ago - Social History ADL: Family Assistance History of Recent Travel: No Home Medications - Allergies Allergies/Adverse Reactions: Allergies Allergy/AdvReac Type Severity Reaction Status Date / Time Penicillins Allergy Severe Difficulty Verified 05/06/18 09:56 Breathing - Home Medications Home Medications: Ambulatory Orders Levothyroxine [Synthroid -] 100 mcg PO DAILY@0700 tablet 06/24/17 Losartan Potassium [Cozaar -] 25 mg PO DAILY #30 tablet 06/24/17 Roflumilast [Daliresp] 500 mcg PO DAILY #30 tablet 06/24/17 Escitalopram Oxalate [Lexapro -] 10 mg PO DAILY 08/31/17 Potassium Chloride [K-Dur -] 10 meq PO DAILY 08/31/17 Aspirin [ASA -] 81 mg PO DAILY 02/01/18 Albuterol Sulfate Inhaler - [Ventolin HFA Inhaler -] 1 - 2 inh PO Q6H PRN Montelukast Sodium [Singulair] 10 mg PO DAILY 04/05/18 Rosuvastatin [Crestor -] 5 mg PO HS 04/05/18 Albuterol 0.083% Nebulizer Colette [Ventolin 0.083% Nebulizer Soln -] 1 amp NEB Q8H PRN 05/06/18 Acetaminophen [Tylenol .Regular Strength -] 650 mg PO Q6H PRN tablet 05/10/18 Furosemide [Lasix -] 20 mg PO DAILY tablet 05/10/18 Heparin - 5,000 unit SQ BID vial 05/10/18 predniSONE [Deltasone -] 40 mg PO DAILY #60 tablet 05/10/18 Review of Systems - Review of Systems Constitutional: reports: No Symptoms Eyes: reports: No Symptoms HENT: reports: No Symptoms Neck: reports: No Symptoms Cardiovascular: reports: No Symptoms Respiratory: reports: No Symptoms Gastrointestinal: reports: No Symptoms Genitourinary: reports: No Symptoms Breasts: reports: No Symptoms Reported Musculoskeletal: reports: Extremity Pain Integumentary: reports: Bruising Neurological: reports: No Symptoms Endocrine: reports: No Symptoms Hematology/Lymphatic: reports: No Symptoms Psychiatric: reports: No Symptoms Physical Exam Vital Signs: Vital Signs Temperature 97.9 F 05/16/18 05:00 Pulse Rate 80 05/16/18 05:00 Respiratory Rate 20 05/16/18 05:00 Blood Pressure 131/70 05/16/18 05:00 O2 Sat by Pulse Oximetry (%) 99 05/16/18 06:00 Constitutional: Yes: Well Nourished, No Distress, Calm Musculoskeletal: Yes: Other (Right hand/wrist: Diffuse ecchymosis of the right hand and distal half of the forearm. There is a approx 2x3cm heatoma along the dorsum of the hand. No erythema or sign of infection. mild TTP along the hematoma. She has full extension of the fingers and 90% of flexion. NVID.) Labs: CBC, BMP 05/16/18 05:30 05/16/18 05:30 Imaging - Results X-ray: Report Reviewed, Image Reviewed Assessment/Plan #1 Right hand hematoma -I have recommended ice, elevation and ROM exercises. She may use the hand as tolerated. The ecchymosis and swelling will likely take several weeks to resolve. Please reconsult as needed.
[2018-05-16 11:01] LABS: ANISOCYTOSIS 1+; MACROCYTOSIS 1+; OVALOCYTE 1+; PLATELET ESTIMATE DECREASED
[2018-05-16] MEDS: ACETAMINOPHEN 325 MG TABLET (FP) PO PRN ×2 (17:29→23:17)
[2018-05-16] MEDS: ROSUVASTATIN CA 5 MG TABLET (FP) PO SCH (21:15)
[2018-05-16] MEDS: MONTELUKAST NA 10 MG TABLET PO SCH (21:15)
[2018-05-17] MEDS: LEVOTHYROXINE NA 100 MCG TABLET (FP) PO SCH (06:17)
--- NOTE | 2018-05-17 07:01 | PN ---
Progress Note, Physician Chief Complaint: awake alert NAD no new c/o R hand still swollen dorsaly with hematoma and echymoses, not expanding, no pain ; hand warm + radial pulse; no SOB - Current Medication List Current Medications: Active Medications Acetaminophen (Tylenol -) 650 mg PO Q6H PRN PRN Reason: FEVER AND PAIN SCALE 1-7 Last Admin: 05/16/18 23:17 Dose: 650 mg Albuterol Sulfate (Ventolin 0.083% Nebulizer Soln -) 1 amp NEB Q4H PRN PRN Reason: SHORT OF BREATH/WHEEZING Last Admin: 05/16/18 20:40 Dose: 1 amp Albuterol Sulfate (Ventolin Hfa Inhaler -) 1 puff IH Q6H PRN PRN Reason: ASTHMA Aspirin (Asa -) 81 mg PO DAILY [facility] Last Admin: 05/16/18 09:53 Dose: 81 mg Escitalopram Oxalate (Lexapro -) 10 mg PO DAILY [facility] Last Admin: 05/16/18 09:54 Dose: 10 mg Furosemide (Lasix -) 20 mg PO DAILY [facility] Last Admin: 05/16/18 09:54 Dose: 20 mg Heparin Sodium (Porcine) (Heparin -) 5,000 unit SQ BID [facility] Last Admin: 05/16/18 21:15 Dose: 5,000 unit Levothyroxine Sodium (Synthroid -) 100 mcg PO DAILY@0700 [facility] Last Admin: 05/17/18 06:17 Dose: 100 mcg Losartan Potassium (Cozaar -) 25 mg PO DAILY [facility] Last Admin: 05/16/18 09:53 Dose: 25 mg Methylprednisolone Sodium Succinate (Solu-Medrol -) 40 mg IVPUSH Q12H [facility] Montelukast Sodium (Singulair -) 10 mg PO HS [facility] Last Admin: 05/16/18 21:15 Dose: 10 mg Potassium Chloride (K-Dur -) 10 meq PO DAILY [facility] Last Admin: 05/16/18 09:54 Dose: 10 meq Roflumilast (Daliresp -) 500 mcg PO DAILY [facility] Last Admin: 05/16/18 09:54 Dose: 500 mcg Rosuvastatin Calcium (Crestor -) 5 mg PO HS [facility] Last Admin: 05/16/18 21:15 Dose: 5 mg - Objective Vital Signs: Vital Signs Temperature 98.4 F 05/17/18 05:29 Pulse Rate 81 05/17/18 05:29 Respiratory Rate 20 05/17/18 05:29 Blood Pressure 119/62 05/17/18 05:29 O2 Sat by Pulse Oximetry (%) 96 05/16/18 21:00 Constitutional: Yes: No Distress, Calm Eyes: Yes: Conjunctiva Clear HENT: Yes: Atraumatic Neck: Yes: Supple Cardiovascular: Yes: Regular Rate and Rhythm Respiratory: Yes: Rales Gastrointestinal: Yes: Soft. No: Distention Genitourinary: No: CVA Tenderness - Left, CVA Tenderness - Right, Hematuria Musculoskeletal: No: Joint Stiffness, Joint Swelling Extremities: No: Cold, Cool, Cyanosis Edema: No Integumentary: Yes: Other (R hand hematoma and echymoses stable). No: Pressure Ulcer, Rash, Venous Stasis Changes Neurological: Yes: WNL, Alert, Oriented ...Motor Strength: WNL Psychiatric: Yes: WNL, Alert, Oriented. No: Agitated, Suicidal Ideation Labs: CBC, BMP 05/16/18 05:30 05/16/18 05:30 INR, PTT INR 0.89 (0.83-1.09) 05/06/18 10:30 - ....Imaging Other: Report Reviewed Assessment/Plan Patient is a 57F with history of COPD with multiple admissions for respiratory failure, CHF, HLD, HTN, hypothyroidism and NAVDEEP complaining of shortness of breath, s/p falling at home, mechanical fall no LOC. s/p ICU short stay for Acute on chronic COPD exac, acute CO2 retention iv steroids, O2 NC, NIPPV, nebs R hand hematoma: no signs of ischemia or compartment sd at this point; ice compression and elevation d/w pt and staff prognosis guarded falls decubs DVT pfx, PT rehab and CM eval for SNF, pulmonary rehab when stable d/w pulm dr Parrish pt is NOT a candidate for lung transplantation at this point ( obesity, h/o renal failure) d/w pt she should lose weight; optimize medically and f/u with pulmonary out pt closely after DC from H / NH she said she will; also I d/w pt about health maintenance to be addressed with PCP dr Navarro ( [employer] pap GI colonoscopy and mammogram, BDT) as outpt she said she will d/w pt and staff
--- NOTE | 2018-05-17 08:38 | PN ---
Progress Note (short form) - Note Progress Note: Ortho Pt seen and examined- right hand hematoma improving Selected Entries 05/17/18 05:29 Temperature 98.4 F Pulse Rate 81 Respiratory 20 Rate Blood Pressure 119/62 Laboratory Tests 05/16/18 05:30 WBC 10.5 H Hgb 10.8 Hct 33.2 Plt Count 139 D + ecchymosis, decr swelling less ttp, incr rom, nvi a/p no surgical intervention strict elevation ice rom exercises ok to d/c from ortho pov d/w Dr. Guerra
[2018-05-17] MEDS: ALBUTEROL SO4 0.083% IH SOL 2.5 MG/3 ML VIAL.NEB. NEB PRN ×3 (09:14→19:37)
[2018-05-17] MEDS: HEPARIN NA (PORCINE) 5,000 UNITS/ML 1ML VIAL SQ SCH ×2 (10:01→21:28)
[2018-05-17] MEDS: methylPREDNISolone NA SUCC 40 MG/1 ML VIAL IVPUSH SCH ×2 (10:01→18:15)
[2018-05-17] MEDS: POTASSIUM CHLORIDE TABS 10 MEQ TABLET.ER (FP) PO SCH (10:03)
[2018-05-17] MEDS: ROFLUMILAST 500 MCG TABLET PO SCH (10:03)
[2018-05-17] MEDS: ASPIRIN 81 MG CHEWABLE TABLETS PO SCH (10:03)
[2018-05-17] MEDS: ESCITALOPRAM OXALATE 10 MG TABLET (FP) PO SCH (10:04)
[2018-05-17] MEDS: LOSARTAN POTASSIUM 25 MG TABLET PO SCH (10:04)
[2018-05-17] MEDS: FUROSEMIDE 20 MG TABLET (FP) PO SCH (10:04)
--- NOTE | 2018-05-17 11:08 | PN ---
Progress Note, Physician Chief Complaint: PULMONARY ALERT,FEELING BETTER,LESS DYSPNEIC,AMBULATING - Current Medication List Current Medications: Active Medications Acetaminophen (Tylenol -) 650 mg PO Q6H PRN PRN Reason: FEVER AND PAIN SCALE 1-7 Last Admin: 05/16/18 23:17 Dose: 650 mg Albuterol Sulfate (Ventolin 0.083% Nebulizer Soln -) 1 amp NEB Q4H PRN PRN Reason: SHORT OF BREATH/WHEEZING Last Admin: 05/17/18 09:14 Dose: 1 amp Albuterol Sulfate (Ventolin Hfa Inhaler -) 1 puff IH Q6H PRN PRN Reason: ASTHMA Aspirin (Asa -) 81 mg PO DAILY [facility] Last Admin: 05/17/18 10:03 Dose: 81 mg Escitalopram Oxalate (Lexapro -) 10 mg PO DAILY [facility] Last Admin: 05/17/18 10:04 Dose: 10 mg Furosemide (Lasix -) 20 mg PO DAILY [facility] Last Admin: 05/17/18 10:04 Dose: 20 mg Heparin Sodium (Porcine) (Heparin -) 5,000 unit SQ BID [facility] Last Admin: 05/17/18 10:01 Dose: 5,000 unit Levothyroxine Sodium (Synthroid -) 100 mcg PO DAILY@0700 [facility] Last Admin: 05/17/18 06:17 Dose: 100 mcg Losartan Potassium (Cozaar -) 25 mg PO DAILY [facility] Last Admin: 05/17/18 10:04 Dose: 25 mg Methylprednisolone Sodium Succinate (Solu-Medrol -) 40 mg IVPUSH Q12H [facility] Last Admin: 05/17/18 10:01 Dose: 40 mg Montelukast Sodium (Singulair -) 10 mg PO HS [facility] Last Admin: 05/16/18 21:15 Dose: 10 mg Potassium Chloride (K-Dur -) 10 meq PO DAILY [facility] Last Admin: 05/17/18 10:03 Dose: 10 meq Roflumilast (Daliresp -) 500 mcg PO DAILY [facility] Last Admin: 05/17/18 10:03 Dose: 500 mcg Rosuvastatin Calcium (Crestor -) 5 mg PO HS [facility] Last Admin: 05/16/18 21:15 Dose: 5 mg - Objective Vital Signs: Vital Signs Temperature 98.4 F 05/17/18 05:29 Pulse Rate 99 H 05/17/18 10:01 Respiratory Rate 20 11/19/18 10:00 Blood Pressure 100/65 05/17/18 10:01 O2 Sat by Pulse Oximetry (%) 95 05/17/18 09:00 Constitutional: Yes: Well Nourished, Calm Eyes: Yes: WNL HENT: Yes: WNL Neck: Yes: WNL Cardiovascular: Yes: Regular Rate and Rhythm, S1, S2 Respiratory: Yes: Wheezes (FEW SCATTTERED WHEEZES) Gastrointestinal: Yes: Normal Bowel Sounds, Soft Extremities: Yes: WNL Edema: No Labs: CBC, BMP 05/16/18 05:30 05/16/18 05:30 INR, PTT INR 0.89 (0.83-1.09) 05/06/18 10:30 Assessment/Plan Problem List (1) COPD exacerbation Code(s): J44.1 - CHRONIC OBSTRUCTIVE PULMONARY DISEASE W (ACUTE) EXACERBATION (2) Acute and chronic respiratory failure with hypoxia Code(s): J96.21 - ACUTE AND CHRONIC RESPIRATORY FAILURE WITH HYPOXIA (3) Acute diastolic (congestive) heart failure Code(s): I50.31 - ACUTE DIASTOLIC (CONGESTIVE) HEART FAILURE (4) CHF (congestive heart failure) Code(s): I50.9 - HEART FAILURE, UNSPECIFIED (5) COPD exacerbation Code(s): J44.1 - CHRONIC OBSTRUCTIVE PULMONARY DISEASE W (ACUTE) EXACERBATION (6) Hyperlipidemia Code(s): E78.5 - HYPERLIPIDEMIA, UNSPECIFIED Qualifiers: Hyperlipidemia type: pure hypercholesterolemia Qualified Code(s): E78.00 - Pure hypercholesterolemia, unspecified; E78.0 - Pure hypercholesterolemia (7) Hypertension Code(s): I10 - ESSENTIAL (PRIMARY) HYPERTENSION Qualifiers: Hypertension type: essential hypertension Qualified Code(s): I10 - Essential (primary) hypertension (8) Pneumonia Code(s): J18.9 - PNEUMONIA, UNSPECIFIED ORGANISM (9) Shortness of breath Code(s): R06.02 - SHORTNESS OF BREATH (10) Sleep apnea Code(s): G47.30 - SLEEP APNEA, UNSPECIFIED Assessment/Plan A/E COPD WITH FALL INJURING RIGHT RIB CAGE/NO FRACTURE NOTED MULTIPLE CO-MORBIDITIES NOTED NIPPV NEEDED PAIN CONTROL MEDROL TAPER BRONCHODILATORS O2 SUPPLEMENTATION OOB TO CHAIR VTE PROPHYLAXIS INCENTIVE SPIROMETRY R HAND ELEVATION ICE PACKS TO R HAND SHORT TERM PULMONARY REHAB DR MEDEIROS
[2018-05-17] MEDS: ACETAMINOPHEN 325 MG TABLET (FP) PO PRN (19:32)
[2018-05-17] MEDS: ROSUVASTATIN CA 5 MG TABLET (FP) PO SCH (21:28)
[2018-05-17] MEDS: MONTELUKAST NA 10 MG TABLET PO SCH (21:28)
[2018-05-18] MEDS: ALBUTEROL SO4 0.083% IH SOL 2.5 MG/3 ML VIAL.NEB. NEB PRN ×4 (00:09→15:44)
[2018-05-18] MEDS: LEVOTHYROXINE NA 100 MCG TABLET (FP) PO SCH (06:40)
[2018-05-18] MEDS: methylPREDNISolone NA SUCC 40 MG/1 ML VIAL IVPUSH SCH (06:40)
--- NOTE | 2018-05-18 07:20 | DS ---
Physical Examination Vital Signs: Vital Signs Temperature 97.9 F 05/18/18 06:46 Pulse Rate 102 H 05/18/18 06:46 Respiratory Rate 20 05/18/18 06:46 Blood Pressure 145/71 05/18/18 06:46 O2 Sat by Pulse Oximetry (%) 95 05/18/18 00:25 Findings/Remarks: in bed awake alert NAD breathing better R hand hematoma stable not worse Constitutional: Yes: No Distress, Calm Eyes: Yes: Conjunctiva Clear HENT: Yes: Atraumatic Neck: Yes: Supple Cardiovascular: Yes: Regular Rate and Rhythm Respiratory: Yes: CTA Bilaterally Gastrointestinal: Yes: Soft. No: Tenderness Renal/: No: Hematuria Musculoskeletal: No: Joint Stiffness, Joint Swelling Extremities: Yes: Other (R hand hematoma stable). No: Cold, Cool, Cyanosis Peripheral Pulses WNL: Yes (radial pulses) Integumentary: No: Rash, Venous Stasis Changes Neurological: Yes: WNL, Alert, Oriented ...Motor Strength: WNL Psychiatric: Yes: WNL, Alert, Oriented. No: Agitated, Suicidal Ideation Discharge Summary Reason For Visit: ACUTE ON CHRONIC RESPIRATORY FAILURE Current Active Problems COPD exacerbation (Acute) Procedures: Principal: admitted with COPD exac acute bronchitis; h/o advanced severe COPD. Other Procedures: iv steroids, nebs, O2, seen by pulmonary dr Parrish; acute CO2 retention;. developed R hand hematoma after an iv came out and it was bleeding under the skin; seen by hand surgery stable; Hospital Course: improved with above; transfer to SNF for pulmonary rehab; f/u as advised Condition: Stable - Instructions Diet, Activity, Other Instructions: f/u PCP cardiology and pulmonary in 1-2 weeks after DC from SNF/AL falls PFX take meds as advised; use O2 / NC and NIPPV as advised RTER if worse or recurrent c/o to f/u with PCP and pulmonary drs after DC from SNF/AL to see if candidate for lung transplant and lung transplant referral to [facility]/navneet pt, pt's and PCP and pulm health maintenance and screening tests and consults outpt per PCP dr Navarro Referrals: Max Parrish MD [Staff Physician] - Shekhar Perales MD [Staff Physician] - Laura Navarro MD [Primary Care Provider] - Disposition: SNF FACILITY - Home Medications Comprehensive Discharge Medication List: Ambulatory Orders Levothyroxine [Synthroid -] 100 mcg PO DAILY@0700 tablet 06/24/17 Losartan Potassium [Cozaar -] 25 mg PO DAILY #30 tablet 06/24/17 Roflumilast [Daliresp] 500 mcg PO DAILY #30 tablet 06/24/17 Escitalopram Oxalate [Lexapro -] 10 mg PO DAILY 08/31/17 Potassium Chloride [K-Dur -] 10 meq PO DAILY 08/31/17 Aspirin [ASA -] 81 mg PO DAILY 02/01/18 Albuterol Sulfate Inhaler - [Ventolin HFA Inhaler -] 1 - 2 inh PO Q6H PRN Montelukast Sodium [Singulair] 10 mg PO DAILY 04/05/18 Rosuvastatin [Crestor -] 5 mg PO HS 04/05/18 Albuterol 0.083% Nebulizer Colette [Ventolin 0.083% Nebulizer Soln -] 1 amp NEB Q8H PRN 05/06/18 Acetaminophen [Tylenol .Regular Strength -] 650 mg PO Q6H PRN tablet 05/10/18 Furosemide [Lasix -] 20 mg PO DAILY tablet 05/10/18 Heparin - 5,000 unit SQ BID vial 05/10/18 predniSONE [Deltasone -] 40 mg PO DAILY #60 tablet 05/10/18 Acetaminophen [Tylenol .Regular Strength -] 650 mg PO Q6H PRN tablet 05/16/18 Furosemide [Lasix -] 20 mg PO DAILY tablet 05/16/18 Heparin - 5,000 unit SQ BID vial 05/16/18
[2018-05-18 07:42] LABS: BASO % 0.1 % (0-2.0); HEMATOCRIT 32.1 % (32.4-45.2); HEMOGLOBIN 10.1 GM/dL (10.7-15.3); LYMPH % 1.6 % (8-40); MCH 29.5 pg (25.7-33.7); MCHC 31.3 g/dl (32.0-36.0); MEAN CELL VOLUME 94.4 fl (80-96); MEAN PLT VOLUME 8.4 fl (7.5-11.1); MONO % 7.9 % (3.8-10.2); NEUT % 90.4 % (42.8-82.8); PLATELET COUNT 155 K/MM3 (134-434); RBC 3.41 M/mm3 (3.60-5.2); RDW 13.2 % (11.6-15.6); WHITE BLOOD COUNT 12.7 K/mm3 (4.0-10.0)
[2018-05-18 08:57] LABS: ALBUMIN 3.4 g/dl (3.4-5.0); ALK PHOS 94 U/L (45-117); ANION GAP 16 MMOL/L (8-16); BILIRUBIN,TOTAL 0.5 mg/dL (0.2-1); BLOOD UREA NITROGEN 24 mg/dL (7-18); CALCIUM 8.4 mg/dL (8.5-10.1); CHLORIDE 79 mmol/L (98-107); CO2 > 45 mmol/L (21-32); CREATININE 0.4 mg/dL (0.55-1.3); GLUCOSE,RANDOM 182 mg/dL (74-106); POTASSIUM 3.9 mmol/L (3.5-5.1); SGOT/AST 18 U/L (15-37); SGPT/ALT 42 U/L (13-61); SODIUM 139 mmol/L (136-145); TOT PROT 5.6 g/dl (6.4-8.2)
[2018-05-18] MEDS ORDERED: PT OWN MED DRAWER 7, Y5N ONE (10:12)
[2018-05-18] MEDS: LOSARTAN POTASSIUM 25 MG TABLET PO SCH (10:14)
[2018-05-18] MEDS: ESCITALOPRAM OXALATE 10 MG TABLET (FP) PO SCH (10:14)
[2018-05-18] MEDS: FUROSEMIDE 20 MG TABLET (FP) PO SCH (10:14)
[2018-05-18] MEDS: POTASSIUM CHLORIDE TABS 10 MEQ TABLET.ER (FP) PO SCH (10:14)
[2018-05-18] MEDS: ASPIRIN 81 MG CHEWABLE TABLETS PO SCH (10:14)
[2018-05-18] MEDS: ROFLUMILAST 500 MCG TABLET PO SCH (10:15)
[2018-05-18] MEDS: HEPARIN NA (PORCINE) 5,000 UNITS/ML 1ML VIAL SQ SCH (10:15)
--- NOTE | 2018-05-18 11:42 | PN ---
Progress Note, Physician History of Present Illness: PULMONARY ALERT,C/O INCREASED SOB TODAY. NO CHANGE R HAND SWELLING AND TENDERNESS - Current Medication List Current Medications: Active Medications Acetaminophen (Tylenol -) 650 mg PO Q6H PRN PRN Reason: FEVER AND PAIN SCALE 1-7 Last Admin: 05/17/18 19:32 Dose: 650 mg Albuterol Sulfate (Ventolin 0.083% Nebulizer Soln -) 1 amp NEB Q4H PRN PRN Reason: SHORT OF BREATH/WHEEZING Last Admin: 05/18/18 08:19 Dose: 1 amp Albuterol Sulfate (Ventolin Hfa Inhaler -) 1 puff IH Q6H PRN PRN Reason: ASTHMA Aspirin (Asa -) 81 mg PO DAILY [facility] Last Admin: 05/18/18 10:14 Dose: 81 mg Escitalopram Oxalate (Lexapro -) 10 mg PO DAILY [facility] Last Admin: 05/18/18 10:14 Dose: 10 mg Furosemide (Lasix -) 20 mg PO DAILY [facility] Last Admin: 05/18/18 10:14 Dose: 20 mg Heparin Sodium (Porcine) (Heparin -) 5,000 unit SQ BID [facility] Last Admin: 05/18/18 10:15 Dose: 5,000 unit Levothyroxine Sodium (Synthroid -) 100 mcg PO DAILY@0700 [facility] Last Admin: 05/18/18 06:40 Dose: 100 mcg Losartan Potassium (Cozaar -) 25 mg PO DAILY [facility] Last Admin: 05/18/18 10:14 Dose: 25 mg Methylprednisolone Sodium Succinate (Solu-Medrol -) 40 mg IVPUSH Q12H [facility] Last Admin: 05/18/18 06:40 Dose: 40 mg Montelukast Sodium (Singulair -) 10 mg PO HS [facility] Last Admin: 05/17/18 21:28 Dose: 10 mg Potassium Chloride (K-Dur -) 10 meq PO DAILY [facility] Last Admin: 05/18/18 10:14 Dose: 10 meq Roflumilast (Daliresp -) 500 mcg PO DAILY [facility] Last Admin: 05/18/18 10:15 Dose: 500 mcg Rosuvastatin Calcium (Crestor -) 5 mg PO HS [facility] Last Admin: 05/17/18 21:28 Dose: 5 mg - Objective Vital Signs: Vital Signs Temperature 97.8 F 05/18/18 10:00 Pulse Rate 69 05/18/18 10:00 Respiratory Rate 20 05/18/18 10:00 Blood Pressure 122/69 05/18/18 10:00 O2 Sat by Pulse Oximetry (%) 97 05/18/18 09:00 Constitutional: Yes: Well Nourished, Calm Eyes: Yes: WNL HENT: Yes: WNL Neck: Yes: WNL Cardiovascular: Yes: Regular Rate and Rhythm, S1 Respiratory: Yes: Diminished Gastrointestinal: Yes: Normal Bowel Sounds, Soft Extremities: Yes: Other (R HAND SWOLLEN,TENDER) Edema: No Labs: CBC, BMP 05/18/18 05:30 05/18/18 05:30 INR, PTT INR 0.89 (0.83-1.09) 05/06/18 10:30 Assessment/Plan Problem List (1) COPD exacerbation Code(s): J44.1 - CHRONIC OBSTRUCTIVE PULMONARY DISEASE W (ACUTE) EXACERBATION (2) Acute and chronic respiratory failure with hypoxia Code(s): J96.21 - ACUTE AND CHRONIC RESPIRATORY FAILURE WITH HYPOXIA (3) Acute diastolic (congestive) heart failure Code(s): I50.31 - ACUTE DIASTOLIC (CONGESTIVE) HEART FAILURE (4) CHF (congestive heart failure) Code(s): I50.9 - HEART FAILURE, UNSPECIFIED (5) COPD exacerbation Code(s): J44.1 - CHRONIC OBSTRUCTIVE PULMONARY DISEASE W (ACUTE) EXACERBATION (6) Hyperlipidemia Code(s): E78.5 - HYPERLIPIDEMIA, UNSPECIFIED Qualifiers: Hyperlipidemia type: pure hypercholesterolemia Qualified Code(s): E78.00 - Pure hypercholesterolemia, unspecified; E78.0 - Pure hypercholesterolemia (7) Hypertension Code(s): I10 - ESSENTIAL (PRIMARY) HYPERTENSION Qualifiers: Hypertension type: essential hypertension Qualified Code(s): I10 - Essential (primary) hypertension (8) Pneumonia Code(s): J18.9 - PNEUMONIA, UNSPECIFIED ORGANISM (9) Shortness of breath Code(s): R06.02 - SHORTNESS OF BREATH (10) Sleep apnea Code(s): G47.30 - SLEEP APNEA, UNSPECIFIED Assessment/Plan A/E COPD WITH FALL INJURING RIGHT RIB CAGE/NO FRACTURE NOTED MULTIPLE CO-MORBIDITIES NOTED NIPPV NEEDED PAIN CONTROL MEDROL TAPER BRONCHODILATORS O2 SUPPLEMENTATION OOB TO CHAIR VTE PROPHYLAXIS INCENTIVE SPIROMETRY R HAND ELEVATION ICE PACKS TO R HAND SHORT TERM PULMONARY REHAB DR MEDEIROS
[2018-05-18 13:10] LABS: ANISOCYTOSIS 1+; MACROCYTOSIS 1+; OVALOCYTE 1+; PLATELET ESTIMATE DECREASED
[2018-05-18 19:40] VITALS: BP 119/53; PULSE 109; TEMP 98
== END 2018-05-18 17:26 | DRG 189 ==
LOC: JER 09:34 → JERBED 14:11 → J7W 19:15 → JICU 05-11 15:15 → J4W 05-12 18:04
PROVIDERS: ADMIT Internal Medicine; ATTEND Internal Medicine
PROC: 5A09457 Assistance with Respiratory Ventilation, 24-96 Consecutive Hours, Continuous Positive Airway Pressure (ICD-10-PCS; principal; 2018-05-11)
DX: J96.21 Acute and chronic respiratory failure with hypoxia (principal); J44.1 Chronic obstructive pulmonary disease with (acute) exacerbation; I50.32 Chronic diastolic (congestive) heart failure; E87.2 Acidosis; J96.22 Acute and chronic respiratory failure with hypercapnia; I11.0 Hypertensive heart disease with heart failure; E78.5 Hyperlipidemia, unspecified; E03.9 Hypothyroidism, unspecified; G47.33 Obstructive sleep apnea (adult) (pediatric); Z99.81 Dependence on supplemental oxygen; E87.6 Hypokalemia; F32.9 Major depressive disorder, single episode, unspecified; F41.9 Anxiety disorder, unspecified; S29.8XXA Other specified injuries of thorax, initial encounter; W19.XXXA Unspecified fall, initial encounter; Y93.89 Activity, other specified; Y92.098 Other place in other non-institutional residence as the place of occurrence of the external cause; Y99.8 Other external cause status; S60.221A Contusion of right hand, initial encounter; X58.XXXA Exposure to other specified factors, initial encounter; Y92.230 Patient room in hospital as the place of occurrence of the external cause
CPT/HCPCS: 36415; 36600; 70450-TC; 71045-TC-FY; 71101-TC-RT-FY; 73110-TC-RT-FY; 73130-TC-RT-FY; 80048; 80053; 82550; 82803; 82962; 83735; 83880; 84100; 84484; 85025; 85027; 85610; 93005; 93010; 94640; 94660; 97116-GP; 97161-GP; 99285-25; J1644

== ENCOUNTER 2018-05-19 15:27 | Inpatient (IN) | payer OTHER ==
--- NOTE | 2018-05-19 15:35 | PDOC ---
History of Present Illness - General Chief Complaint: Shortness of Breath Stated Complaint: COPD - History of Present Illness Initial Comments: The patient is a 57F w/ a history of COPD (2L NC at home), HTN, CAD, hypothyroidism who presents from [facility] for evaluation of increasing respiratory distress and associated confusion/lethargy. The patient was recently admitted for a COPD exacerbation. Per the family, when the patient is having an exacerbation, it is typical for her to become confused. Reported 2 days ago the patient was A&Ox3. Patient and family unable to give a complete history 2/2 to medical status and them not being at the rehab facility respectively. Further patient reports a gradual onset, global, throbbing PEREZ which her gave her a pain medication for that she does not recall with some relief Currently she denies dizziness/lightheadedness, nausea, or PEREZ PMH: HTN, COPD, CAD, HF, hypothyroidism, NAVDEEP 05/19/18 16:46 Past History - Past Medical History Allergies/Adverse Reactions: Allergies Allergy/AdvReac Type Severity Reaction Status Date / Time Penicillins Allergy Severe Difficulty Verified 05/19/18 16:04 Breathing Home Medications: Ambulatory Orders Levothyroxine [Synthroid -] 100 mcg PO DAILY@0700 tablet 06/24/17 Losartan Potassium [Cozaar -] 25 mg PO DAILY #30 tablet 06/24/17 Roflumilast [Daliresp] 500 mcg PO DAILY #30 tablet 06/24/17 Escitalopram Oxalate [Lexapro -] 10 mg PO DAILY 08/31/17 Potassium Chloride [K-Dur -] 10 meq PO DAILY 08/31/17 Aspirin [ASA -] 81 mg PO DAILY 02/01/18 Albuterol Sulfate Inhaler - [Ventolin HFA Inhaler -] 1 - 2 inh PO Q6H PRN Montelukast Sodium [Singulair] 10 mg PO DAILY 04/05/18 Rosuvastatin [Crestor -] 5 mg PO HS 04/05/18 Albuterol 0.083% Nebulizer Colette [Ventolin 0.083% Nebulizer Soln -] 1 amp NEB Q8H PRN 05/06/18 Acetaminophen [Tylenol .Regular Strength -] 650 mg PO Q6H PRN tablet 05/10/18 Furosemide [Lasix -] 20 mg PO DAILY tablet 05/10/18 Heparin - 5,000 unit SQ BID vial 05/10/18 predniSONE [Deltasone -] 40 mg PO DAILY #60 tablet 05/10/18 Acetaminophen [Tylenol .Regular Strength -] 650 mg PO Q6H PRN tablet 05/16/18 Furosemide [Lasix -] 20 mg PO DAILY tablet 05/16/18 Heparin - 5,000 unit SQ BID vial 05/16/18 Cardiac Disorders: (CHF) CVA: No COPD: Yes (O2 dependent at home) CHF: Yes DVT: No Dementia: No Diabetes: No HTN: Yes Seizures: No Thyroid Disease: Yes (hypo) - Immunization History Immunization Up to Date: Yes - Suicide/Smoking/Psychosocial Hx Smoking History: Never smoked Have you smoked in the past 12 months: No If you are a former smoker, when did you quit?: 8 years ago Hx Alcohol Use: No Drug/Substance Use Hx: No Substance Use Type: None Hx Substance Use Treatment: No Review of Systems - Review of Systems Able to Perform ROS?: No (medical condition) *Physical Exam - Vital Signs Vital Signs Temp Pulse Resp BP Pulse Ox 97.6 F 88 20 112/71 95 05/19/18 16:45 05/19/18 16:46 05/19/18 16:46 05/19/18 16:46 05/19/18 16:46 05/19/18 16:49 - Physical Exam Comments: GENERAL: Awake, easily arousable to voice, oriented to self, patient jittery/ cold HEAD: No signs of trauma, normocephalic, atraumatic EYES: PERRLA, EOMI ENT: Hearing grossly normal, nares patent, oropharynx clear without exudates. Moist mucosa LUNGS: on 4LNC (2LNC at home); moderate diffuse wheeze b/l HEART: Tachycardia with regular rhythm, normal S1 and S2, no murmurs appreciated , peripheral pulses normal and equal bilaterally ABDOMEN: Soft, nontender, normoactive bowel sounds. No guarding, no rebound EXTREMITIES : 2+ BLE edema to knee; RUE hand and forearm hematoma, R breast ecchymosis; Normal range of motion NEUROLOGICAL: Cranial nerves II through XII grossly intact. no focal sensorimotor deficits 05/19/18 15:37 ED Treatment Course - LABORATORY CBC & Chemistry Diagram: 05/19/18 16:15 05/19/18 16:15 Medical Decision Making - Medical Decision Making The patient is a 57F w/ a history of COPD, CHF, HLD, HTN with a recent admission for COPD who presents from [facility] for evaluation of respiratory distress/AMS Ddx: acute on chronic COPD; CHF exacerbation, infection/sepsis/PNA/UTI, ICH/CVA/ intra-cranial lesion, metabolic dysfunction/disturbance ED Course: Sepsis w/u BiPap Duo-nebs, Mg 2g IV once, Solumedrol 125mg IV once Leukocytosis 12 vgb w/ evidence of chronic retention, less likely that this is the source of acute AMS; will add CT Head to evaluate for bleed/intra-cranial lesion as patient is on AC and is unable to ensure that she did not fall Hgb10 INR wnl 05/19/18 16:55 Trop I neg 05/19/18 17:[address], CXR, and UA Patient w/ symptomatic improvement Regular HR Cr 0.5 Hyperglycemia 260s 05/19/18 18:23 Plan for admission for COPD exacerbation/AMS pending imaging and remainder of lab results I have transferred care of the patient to Dr. Spring and discussed the clinical presentation, work-up and ED course thus far. 05/19/18 18:54 *DC/Admit/Observation/Transfer Diagnosis at time of Disposition: COPD exacerbation, Lethargy Altered mental status Qualifiers: Altered mental status type: disorientation Qualified Code(s): R41.0 - Disorientation, unspecified - Discharge Dispostion Condition at time of disposition: Guarded Decision to Admit order: Yes - Referrals - Patient Instructions - Post Discharge Activity
[2018-05-19] MEDS ORDERED: ALBUTEROL SO4 2.5/IPRATROPIUM 0.5 INH SOL 3 ML VIAL.NEB. NEB ONE ×2 (15:58→16:33)
[2018-05-19] MEDS ORDERED: methylPREDNISolone NA SUCC 125 MG/2 ML VIAL IVPUSH ONE (15:58)
[2018-05-19 16:24] LABS: VENOUS PH 7.45 (7.32-7.42); VENOUS PO2 83.1 mmHg (28-48)
[2018-05-19 16:28] LABS: BASO % 0.1 % (0-2.0); HEMATOCRIT 31.6 % (32.4-45.2); HEMOGLOBIN 10.5 GM/dL (10.7-15.3); LYMPH % 1.4 % (8-40); MCH 30.8 pg (25.7-33.7); MCHC 33.1 g/dl (32.0-36.0); MEAN PLT VOLUME 8.9 fl (7.5-11.1); MONO % 3.9 % (3.8-10.2); NEUT % 94.6 % (42.8-82.8); PLATELET COUNT 157 K/MM3 (134-434); RDW 13.3 % (11.6-15.6); WHITE BLOOD COUNT 12.2 K/mm3 (4.0-10.0)
[2018-05-19] MEDS ORDERED: MAGNESIUM 1GM/D5W - 2 GM/200 ML IVPB IVPB ONE (16:34)
[2018-05-19] MEDS ORDERED: methylPREDNISolone NA SUCC 125 MG/2 ML VIAL ONE (16:34)
[2018-05-19 16:39] LABS: VENOUS PC02 85.9 mmHg (38-52)
[2018-05-19 16:41] LABS: INR 0.97 (0.83-1.09); PROTHROMBIN TIME (PATIENT) 11.4 SEC (9.7-13.0)
[2018-05-19 17:31] LABS: ANISOCYTOSIS 1+; MACROCYTOSIS 1+; PLATELET ESTIMATE ADEQUATE
[2018-05-19 17:47] LABS: ALBUMIN 3.2 g/dl (3.4-5.0); ALK PHOS 90 U/L (45-117); ANION GAP 18 MMOL/L (8-16); BILIRUBIN,TOTAL 1.1 mg/dL (0.2-1); BLOOD UREA NITROGEN 19 mg/dL (7-18); CALCIUM 8.4 mg/dL (8.5-10.1); CHLORIDE 74 mmol/L (98-107); CREATININE 0.5 mg/dL (0.55-1.3); GLUCOSE,RANDOM 264 mg/dL (74-106); POTASSIUM 3.7 mmol/L (3.5-5.1); SGOT/AST 17 U/L (15-37); SGPT/ALT 38 U/L (13-61); SODIUM 137 mmol/L (136-145); TOT PROT 5.3 g/dl (6.4-8.2)
--- NOTE | 2018-05-19 19:33 | PDOC ---
Attending Attestation - Resident Resident Name: Valente Moser - ED Attending Attestation I have performed the following: I have examined & evaluated the patient, The case was reviewed & discussed with the resident, I agree w/resident's findings & plan, Exceptions are as noted - HPI HPI: 05/19/18 19:32 This is a 57 year old female with a significant past medical history of COPD ( multiple admissions for respiratory failure), CHF, HTN, HLD, hypothyroidism, and NAVDEEP, that presents from [facility] to the emergency department today for respiratory distress and subsequent confusion. Patient was recently admitted for a COPD exacerbation. As per the patients family, they note it is common for the patient to be confused after a COPD exacerbation episode. They states that her last normal orientation was 2 days ago. Patients history is limited secondary to her current orientation and familys absence at the rehab facility. Pt called in by Dr. Taylor given increasing lethargy for c/o hypercarbic resp failure. Pt also with new tremors to UE b/l PCP: Dr. Taylor - Physicial Exam PE: 05/19/18 19:33 agree with resident exam - Medical Decision Making 05/19/18 19:33 57yo F with MMP including COPD rectally afebrile Initially lethargic but arousable, in light of hx hypercarbic resp failure, pt placed on bipap VBG reveals normal pH, CO2 80s, HCO3 in the 50s consistent with chronic resp failure, no element of acute failure Bipap removed, pt sent to [facility] to eval for neurologic cause of lethargy case discussed with Dr. Taylor who would like to admit pt for further w/u and management Case discussed in detail with admitting physician including history, physical exam and ancillary studies. Admitting physician has assumed care for the patient, will follow all pending diagnostics and will complete the evaluation and treatment. *DC/Admit/Observation/Transfer Diagnosis at time of Disposition: COPD exacerbation, Lethargy Altered mental status Qualifiers: Altered mental status type: disorientation Qualified Code(s): R41.0 - Disorientation, unspecified - Discharge Dispostion Condition at time of disposition: Guarded Decision to Admit order: Yes - Referrals - Patient Instructions - Post Discharge Activity - Attestations Physician Attestion: 05/19/18 19:34 I, Dr. Julieta Espinal MD, attest that this document has been prepared under my direction and personally reviewed by me in its entirety. I further attest, that it accurately reflects all work, treatment, procedures and medical decision -making performed by me.
[2018-05-19] MEDS ORDERED: methylPREDNISolone NA SUCC 40 MG/1 ML VIAL ONE (21:06)
[2018-05-19] MEDS: methylPREDNISolone NA SUCC 40 MG/1 ML VIAL IVPUSH SCH (21:10)
[2018-05-19] MEDS ORDERED: MONTELUKAST NA 10 MG TABLET ONE (22:24)
[2018-05-19] MEDS ORDERED: HEPARIN NA (PORCINE) 5,000 UNITS/ML 1ML VIAL ONE (22:25)
[2018-05-19] MEDS: MONTELUKAST NA 10 MG TABLET PO SCH (22:34)
[2018-05-19] MEDS: HEPARIN NA (PORCINE) 5,000 UNITS/ML 1ML VIAL SQ SCH (22:35)
[2018-05-19] MEDS: ROSUVASTATIN CA 5 MG TABLET (FP) PO SCH (22:35)
--- NOTE | 2018-05-19 22:42 | PDOC ---
*Physical Exam - Vital Signs Last Vital Signs Temp Pulse Resp BP Pulse Ox 97.6 F 79 18 118/75 95 05/19/18 16:45 05/19/18 20:36 05/19/18 20:36 05/19/18 20:36 05/19/18 20:36 - Physical Exam Comments: 05/19/18 22:41 Patient was signed out to me by Dr. Moser ED Treatment Course - LABORATORY CBC & Chemistry Diagram: 05/19/18 16:15 05/19/18 16:15 - ADDITIONAL ORDERS Additional order review: Laboratory Results 05/19/18 05/19/18 05/19/18 18:32 16:27 16:27 PT with INR INR PTT (Actin FS) D-Dimer 611 H VBG pH POC VBG pCO2 POC VBG pO2 Mixed VBG HCO3 Sodium Potassium Chloride Carbon Dioxide Anion Gap BUN Creatinine Creat Clearance w eGFR Random Glucose Lactic Acid Calcium Total Bilirubin AST ALT Alkaline Phosphatase Troponin I 0.02 Total Protein Albumin Blood Type O NEGATIVE Antibody Screen Negative 05/19/18 05/19/18 05/19/18 16:15 16:15 16:15 PT with INR INR PTT (Actin FS) D-Dimer VBG pH 7.45 H D POC VBG pCO2 85.9 H* D POC VBG pO2 83.1 H D Mixed VBG HCO3 58.9 H* Sodium 137 Potassium 3.7 Chloride 74 L Carbon Dioxide > 45 H Anion Gap 18 H BUN 19 H Creatinine 0.5 L Creat Clearance w eGFR > 60 Random Glucose 264 H Lactic Acid 1.1 Calcium 8.4 L Total Bilirubin 1.1 H AST 17 ALT 38 Alkaline Phosphatase 90 Troponin I Total Protein 5.3 L Albumin 3.2 L Blood Type Antibody Screen 05/19/18 16:15 PT with INR 11.40 INR 0.97 PTT (Actin FS) 19.0 L D-Dimer VBG pH POC VBG pCO2 POC VBG pO2 Mixed VBG HCO3 Sodium Potassium Chloride Carbon Dioxide Anion Gap BUN Creatinine Creat Clearance w eGFR Random Glucose Lactic Acid Calcium Total Bilirubin AST ALT Alkaline Phosphatase Troponin I Total Protein Albumin Blood Type Antibody Screen 05/19/18 16:15 RBC 3.40 L MCV 93.0 MCHC 33.1 RDW 13.3 MPV 8.9 Neutrophils % 94.6 H Lymphocytes % 1.4 L Monocytes % 3.9 Eosinophils % 0.0 Basophils % 0.1 - Medications Given in the ED: ED Medications Discontinued Medications Generic Name Dose Route Start Last Admin Trade Name Reynaldo PRN Reason Stop Dose Admin Albuterol/Ipratropium 1 amp 05/19/18 15:58 05/19/18 16:40 Duoneb - NEB 05/19/18 15:59 1 amp ONCE ONE Administration Magnesium Sulfate/Dextrose 2 200 mls @ 100 mls/hr 05/19/18 15:58 05/19/18 16: 40 gm/ Miscellaneous IVPB 05/19/18 17:57 100 mls/hr ONCE ONE Administration Methylprednisolone Sodium Succinate 125 mg 05/19/18 15:58 05/19/18 16:40 Solu-Medrol - IVPUSH 05/19/18 15:59 125 mg ONCE ONE Administration *DC/Admit/Observation/Transfer Diagnosis at time of Disposition: COPD exacerbation, Lethargy Altered mental status Qualifiers: Altered mental status type: disorientation Qualified Code(s): R41.0 - Disorientation, unspecified - Discharge Dispostion Condition at time of disposition: Guarded - Referrals - Patient Instructions - Post Discharge Activity
[2018-05-19 22:43] LABS: CO2 > 45 mmol/L (21-32)
[2018-05-19] MEDS: INSULIN SLIDING SCALE (NOVOLOG) 1 VIAL SQ SCH (22:44)
[2018-05-19] MEDS ORDERED: INSULIN REGULAR HUMAN 100 UNITS/ML *VIAL ONE (22:46)
[2018-05-20] MEDS ORDERED: methylPREDNISolone NA SUCC 40 MG/1 ML VIAL ONE (01:58)
[2018-05-20] MEDS: methylPREDNISolone NA SUCC 40 MG/1 ML VIAL IVPUSH SCH ×3 (02:02→18:04)
[2018-05-20] MEDS: INSULIN SLIDING SCALE (NOVOLOG) 1 VIAL SQ SCH ×4 (06:30→21:27)
[2018-05-20] MEDS: LEVOTHYROXINE NA 100 MCG TABLET (FP) PO SCH (06:31)
--- NOTE | 2018-05-20 06:49 | HP ---
Admitting History and Physical - Primary Care Physician PCP: Agustina Taylor S - Admission Chief Complaint: confusion History of Present Illness: The patient is a 57F w/ a history of COPD (O2 dependant continuous), HTN, CAD, hypothyroidism, s/p multiple COPD exacerbations and admissions to hospital, dischareged from to SNF for pulmonary rehab few days ago, who presents back to ER from [facility] for evaluation of increasing respiratory distress and associated confusion/lethargy. The patient was recently admitted for a COPD exacerbation. Per the family, when the patient is having an exacerbation, it is typical for her to become confused. Reported 2 days ago the patient was A&Ox3. Also noticed in ER to have tremor and shakes (no chills) Per ER records pt had some headaches in ER which resolved with OCT medication, no focal co. Currently she denies dizziness/lightheadedness, nausea, or PEREZ History Source: Patient, Family Member, Medical Record, Transfer Record Limitations to Obtaining History: Clinical Condition - Past Medical History Cardiovascular: Yes: CHF, HTN, Hyperlipdemia Pulmonary: Yes: COPD, O2 Dependent, Sleep Apnea ...LMP: 06/03/14 Heme/Onc: Yes: Anemia Infectious Disease: Yes: Other (pneumonia) Musculoskeletal: Yes: Chronic low back pain Endocrine: Yes: Hypothyroidism - Smoking History Smoking history: Never smoked Have you smoked in the past 12 months: No If you are a former smoker, when did you quit?: 8 years ago - Alcohol/Substance Use Hx Alcohol Use: No History of Substance Use: reports: None - Social History Usual Living Arrangement: Yes: Residential ADL: Family Assistance History of Recent Travel: No Home Medications - Allergies Allergies/Adverse Reactions: Allergies Allergy/AdvReac Type Severity Reaction Status Date / Time Penicillins Allergy Severe Difficulty Verified 05/19/18 16:04 Breathing - Home Medications Home Medications: Ambulatory Orders Levothyroxine [Synthroid -] 100 mcg PO DAILY@0700 tablet 06/24/17 Losartan Potassium [Cozaar -] 25 mg PO DAILY #30 tablet 06/24/17 Roflumilast [Daliresp] 500 mcg PO DAILY #30 tablet 06/24/17 Escitalopram Oxalate [Lexapro -] 10 mg PO DAILY 08/31/17 Potassium Chloride [K-Dur -] 10 meq PO DAILY 08/31/17 Aspirin [ASA -] 81 mg PO DAILY 02/01/18 Albuterol Sulfate Inhaler - [Ventolin HFA Inhaler -] 1 - 2 inh PO Q6H PRN Montelukast Sodium [Singulair] 10 mg PO DAILY 04/05/18 Rosuvastatin [Crestor -] 5 mg PO HS 04/05/18 Albuterol 0.083% Nebulizer Colette [Ventolin 0.083% Nebulizer Soln -] 1 amp NEB TID PRN 05/06/18 Acetaminophen [Tylenol .Regular Strength -] 650 mg PO Q6H PRN tablet 05/16/18 Furosemide [Lasix -] 20 mg PO DAILY tablet 05/16/18 Family Disease History - Family Disease History Family History: Unremarkable Review of Systems - Review of Systems Constitutional: reports: Lethargy, Weakness (general). denies: Chills, Fever Eyes: denies: Blind Spots, Blurred Vision, Double Vision HENT: denies: Ear Pain, Epistaxis Neck: denies: Stiffness, Tenderness Cardiovascular: reports: Shortness of Breath. denies: Chest Pain, Edema, Palpitations Respiratory: reports: Exercise Intolerance, SOB, SOB on Exertion, Wheezing. denies: Cough, Orthopnea, PND Gastrointestinal: denies: Abdominal Pain, Bloating, Constipation, Diarrhea, Melena, Nausea, Rectal Bleeding, Vomiting Genitourinary: denies: Dysuria, Flank Pain, Hematuria Musculoskeletal: reports: Other (R hand hematoma (from previous admission when had a hand IV pulled and bleeding under skin)). denies: Back Pain Neurological: reports: Change in LOC, Change in Speech, Confusion, Headache, Incoordination, Tremors, Unsteady Gait, Weakness. denies: Dizziness, Numbness, Parasthesia, Pre-Existing Deficit, Seizure, Syncope Hematology/Lymphatic: reports: Easily Bruised. denies: Excessive Bleeding Psychiatric: denies: Altered Sleep Pattern, Anxiety, Depression, Suicidal Physical Examination Vital Signs: Vital Signs Temperature 97.8 F 05/20/18 05:00 Pulse Rate 78 05/20/18 05:00 Respiratory Rate 18 05/20/18 05:00 Blood Pressure 130/78 05/20/18 05:00 O2 Sat by Pulse Oximetry (%) 95 05/20/18 05:00 Constitutional: Yes: No Distress, Calm Eyes: Yes: Conjunctiva Clear HENT: Yes: Atraumatic Neck: Yes: Supple Cardiovascular: Yes: Regular Rate and Rhythm Respiratory: Yes: Rales, Wheezes Gastrointestinal: Yes: Soft. No: Distention, Tenderness Renal/: No: Hematuria Musculoskeletal: Yes: Other (R hand dorsal hematoma and echymoses up to half forearm). No: Joint Stiffness, Joint Swelling Extremities: No: Cold, Cool, Cyanosis Edema: No Integumentary: Yes: Bruising (some abdomimnal bruises s/p asq heparin). No: Rash, Venous Stasis Changes Neurological: Yes: WNL, Alert, Confusion, Lethargy, Tremors, Unsteady Gait, Weakness (general). No: Oriented, Seizure ...Motor Strength: WNL Psychiatric: Yes: WNL, Alert, Oriented. No: Agitated, Suicidal Ideation Labs: CBC, BMP 05/19/18 16:15 05/19/18 16:15 Imaging - Results Chest X-ray: Report Reviewed Other: Report Reviewed Assessment/Plan The patient is a 57F w/ a history of severe advanced COPD O2 dependant and frequent Bipap use, HTN, CAD, hypothyroidism who presents from [facility] for evaluation of increasing respiratory distress and associated confusion/ lethargy. The patient was recently admitted for a COPD exacerbation. Check labs , ABG admit; pulmonary and neurology eval iv steroids, nebs, O2, Bipap r/o infection R hand hematoma seen by ortho hand surgery previously in rec ice and elevation - f/u orhto if not resolving falls decubs DVT PFX prognosis guarded d/w pt and staff d/w pt's d/w pt's PCP dr Mariana Navarro also d/w pt, and pt;s PCP and d/w pulmonary about referral for lung transplant evaluation; either to [place] or [facility] - pt to f/u with pulmonary dr MONAHAN/ dr Parrish and PCP for outpt referral for lung transplant eval after DC from
[2018-05-20] MEDS: ASPIRIN 81 MG CHEWABLE TABLETS PO SCH (10:00)
[2018-05-20] MEDS: ROFLUMILAST 500 MCG TABLET PO SCH (10:01)
[2018-05-20] MEDS: LOSARTAN POTASSIUM 25 MG TABLET PO SCH (10:01)
[2018-05-20] MEDS: POTASSIUM CHLORIDE TABS 10 MEQ TABLET.ER (FP) PO SCH (10:01)
[2018-05-20] MEDS: HEPARIN NA (PORCINE) 5,000 UNITS/ML 1ML VIAL SQ SCH ×2 (10:01→21:26)
[2018-05-20] MEDS: FUROSEMIDE 20 MG TABLET (FP) PO SCH (10:02)
[2018-05-20] MEDS: ESCITALOPRAM OXALATE 10 MG TABLET (FP) PO SCH (10:02)
[2018-05-20] MEDS: PANTOPRAZOLE 20 MG TABLET (FP) PO SCH (10:02)
[2018-05-20] MEDS: ALBUTEROL SO4 0.083% IH SOL 2.5 MG/3 ML VIAL.NEB. NEB PRN ×3 (10:03→21:45)
[2018-05-20] MEDS: ACETAMINOPHEN 325 MG TABLET (FP) PO PRN (10:03)
--- NOTE | 2018-05-20 11:27 | PN ---
Progress Note (short form) - Note Progress Note: PULMONARY CONSULTATION DICTATED 05/20/18 IMP ACUTE ON CHRONIC HYPOXEMIC HYPERCAPNEIC RESPIRATORY FAILURE COPD O2 DEPENDENT ALTERED MENTAL STATUS CHF HYPOTHYROID NAVDEEP PLAN STEROIDS INHALED BRONCHODILATORS O2 BIPAP AT NIGHT AND PRN F/U ABGS F/U CHEST X-RAYS Problem List - Problems (1) Altered mental status Code(s): R41.82 - ALTERED MENTAL STATUS, UNSPECIFIED Qualifiers: Altered mental status type: disorientation Qualified Code(s): R41.0 - Disorientation, unspecified (2) COPD exacerbation Code(s): J44.1 - CHRONIC OBSTRUCTIVE PULMONARY DISEASE W (ACUTE) EXACERBATION (3) Acute on chronic respiratory failure with hypoxia and hypercapnia Code(s): J96.21 - ACUTE AND CHRONIC RESPIRATORY FAILURE WITH HYPOXIA; J96.22 - ACUTE AND CHRONIC RESPIRATORY FAILURE WITH HYPERCAPNIA (4) CHF (congestive heart failure) Code(s): I50.9 - HEART FAILURE, UNSPECIFIED (5) COPD exacerbation Code(s): J44.1 - CHRONIC OBSTRUCTIVE PULMONARY DISEASE W (ACUTE) EXACERBATION (6) Diastolic dysfunction Code(s): I51.9 - HEART DISEASE, UNSPECIFIED (7) Sleep apnea Code(s): G47.30 - SLEEP APNEA, UNSPECIFIED
--- NOTE | 2018-05-20 12:10 | CONS ---
DATE OF CONSULTATION: 05/20/2018 PULMONARY CONSULTATION REFERRING PHYSICIAN: Agustina Taylor MD Patient is a 57-year-old white female known to be from previous hospitalization and office followup with past medical history of acute on chronic hypoxemic hypercapnic respiratory failure, hypertension, advanced COPD, ASHD, hypothyroidism, obstructive sleep apnea, recently hospitalized at [facility] after being treated for acute on chronic hypoxemic respiratory failure with transfer to [facility] for short-term rehab who was transferred back to [facility] on May 19, secondary to increasing respiratory distress, confusion, and lethargy. As stated before, she was recently hospitalized and transferred to [facility] 2 days ago. Apparently, denied any chest pain, nausea, vomiting, or diaphoresis. As per the family, she was having increasing shortness of breath and transferred back to the ER. ON admission, the patient was treated with inhaled bronchodilators and placed back on IV steroids with some clinical improvement. She was also placed on BiPAP. Blood gas revealed PCO2 of 85 which is actually reduced from previous hospitalization. Patient has history of smoking, quit a few years ago. There is no history of occupational exposure to chemical fumes. She has multiple hospitalizations in the past secondary to COPD exacerbations requiring ventilatory support as well as BiPAP support. Of note, she is on trilogy device at home. PAST MEDICAL HISTORY: Again includes advanced COPD with chronic hypoxemic hypercapnic respiratory failure, hypothyroidism, obstructive sleep apnea, hypertension, CHF. REVIEW OF SYSTEMS: No orthopnea. Positive shortness of breath. Positive confusion. No chest pain. No palpitation. No fever. No chills. No hemoptysis. CURRENT MEDICATIONS: Include Solu-Medrol 40 q.8, Cozaar, heparin, Lexapro, albuterol, NovoLog, Crestor, Singulair, Lasix, Protonix, K-Dur, Daliresp, Synthroid. PHYSICAL EXAMINATION: General: Patient is a well-developed, well-nourished female awake, alert, currently in no acute distress. Vital Signs: She is afebrile, blood pressure is 141/84, respiratory rate is 16, and O2 saturation is 100% on 2 L. HEENT: Exam is normocephalic, atraumatic. Neck: Supple. Heart: Regular, S1, S2. Chest: Diminished breath sounds bilaterally. Abdomen: Soft. Bowel sounds positive. Extremities: Ecchymosis and swelling of the right hand, which is unchanged from previous hospitalization. LABORATORIES: WBC is 12.2, hemoglobin 10.5, hematocrit 31.6, platelet count 157,000. D-dimer is 611. Venous blood gas pH 7.45, PCO2 of 85, PO2 of 83. Chemistry: BUN 19, creatinine 0.5. Chest x-ray: No infiltrates, no effusions, left basilar atelectatic changes. IMPRESSION: Acute on chronic hypoxemic hypercapnic respiratory failure secondary to: 1. Chronic obstructive pulmonary disease exacerbation. 2. Congestive heart failure. 3. Obstructive sleep apnea. 4. Anemia. 5. Hypothyroidism. PLAN: IV steroids. Inhaled bronchodilators. Supplemental O2. BiPAP at night as well as increasing shortness of breath. Followup arterial blood gases. DVT prophylaxis. CARLOS MANUEL MEDEIROS M.D. [id number]
[2018-05-20 13:48] LABS: URINE APPEARANCE SLCLOUDY; URINE BILIRUBIN NEGATIVE (<2.0 mg/dL); URINE COLOR YELLOW; URINE GLUCOSE (UA) NEGATIVE (NEGATIVE); URINE KETONE NEGATIVE (NEGATIVE); URINE LEUK ESTERASE 2+ (NEGATIVE); URINE NITRITE NEGATIVE (NEGATIVE); URINE PROTEIN NEGATIVE (NEGATIVE); URINE UROBILINOGEN NEGATIVE mg/dL (0.2-1.0)
[2018-05-20 13:56] LABS: EPI CELLS RARE /HPF (FEW); URINE BACTERIA FEW /hpf (NONE SEEN); URINE HYALINE CAST 21 /lpf; URINE MUCUS RARE
[2018-05-20] MEDS ORDERED: INSULIN (NOVOLOG) ASPART 100 UNITS/ML 10ML VIAL ONE (17:43)
[2018-05-20] MEDS: MONTELUKAST NA 10 MG TABLET PO SCH (21:26)
[2018-05-20] MEDS: ROSUVASTATIN CA 5 MG TABLET (FP) PO SCH (21:26)
[2018-05-21] MEDS: methylPREDNISolone NA SUCC 40 MG/1 ML VIAL IVPUSH SCH ×3 (01:12→18:31)
[2018-05-21] MEDS: INSULIN SLIDING SCALE (NOVOLOG) 1 VIAL SQ SCH ×4 (06:19→21:07)
[2018-05-21] MEDS: LEVOTHYROXINE NA 100 MCG TABLET (FP) PO SCH (06:19)
--- NOTE | 2018-05-21 07:02 | PN ---
Progress Note, Physician Chief Complaint: more awake and alert less SOB consults noted and d/w pt and family and PCP - Current Medication List Current Medications: Active Medications Acetaminophen (Tylenol -) 650 mg PO Q6H PRN PRN Reason: PAIN 1-7 Last Admin: 05/20/18 10:03 Dose: 650 mg Albuterol Sulfate (Ventolin 0.083% Nebulizer Soln -) 1 amp NEB Q8H PRN PRN Reason: SHORT OF BREATH/WHEEZING Last Admin: 05/20/18 21:45 Dose: 1 amp Albuterol Sulfate (Ventolin Hfa Inhaler -) 1 puff IH Q6H PRN PRN Reason: ASTHMA Aspirin (Asa -) 81 mg PO DAILY [facility] Last Admin: 05/20/18 10:00 Dose: 81 mg Escitalopram Oxalate (Lexapro -) 10 mg PO DAILY [facility] Last Admin: 05/20/18 10:02 Dose: 10 mg Furosemide (Lasix -) 20 mg PO DAILY [facility] Last Admin: 05/20/18 10:02 Dose: 20 mg Heparin Sodium (Porcine) (Heparin -) 5,000 unit SQ BID [facility] Last Admin: 05/20/18 21:26 Dose: 5,000 unit Insulin Aspart (Novolog Vial Sliding Scale -) 1 vial SQ ACHS [facility]; Protocol Last Admin: 05/21/18 06:19 Dose: 4 units Levothyroxine Sodium (Synthroid -) 100 mcg PO DAILY@0700 [facility] Last Admin: 05/21/18 06:19 Dose: 100 mcg Losartan Potassium (Cozaar -) 25 mg PO DAILY [facility] Last Admin: 05/20/18 10:01 Dose: 25 mg Methylprednisolone Sodium Succinate (Solu-Medrol -) 40 mg IVPUSH Q8H-IV HANSEL Last Admin: 05/21/18 01:12 Dose: 40 mg Montelukast Sodium (Singulair -) 10 mg PO HS [facility] Last Admin: 05/20/18 21:26 Dose: 10 mg Pantoprazole Sodium (Protonix -) 20 mg PO DAILY [facility] Last Admin: 05/20/18 10:02 Dose: 20 mg Potassium Chloride (K-Dur -) 10 meq PO DAILY [facility] Last Admin: 05/20/18 10:01 Dose: 10 meq Roflumilast (Daliresp -) 500 mcg PO DAILY [facility] Last Admin: 05/20/18 10:01 Dose: 500 mcg Rosuvastatin Calcium (Crestor -) 5 mg PO HS [facility] Last Admin: 05/20/18 21:26 Dose: 5 mg - Objective Vital Signs: Vital Signs Temperature 98.2 F 05/21/18 06:00 Pulse Rate 93 H 05/21/18 06:00 Respiratory Rate 20 05/21/18 06:00 Blood Pressure 138/80 05/21/18 06:00 O2 Sat by Pulse Oximetry (%) 96 05/20/18 21:00 Constitutional: Yes: No Distress, Calm Eyes: Yes: Conjunctiva Clear HENT: Yes: Atraumatic Neck: Yes: Supple Cardiovascular: Yes: Regular Rate and Rhythm Respiratory: Yes: Rales, Wheezes Gastrointestinal: Yes: Soft. No: Distention Genitourinary: No: Hematuria Musculoskeletal: Yes: Joint Stiffness, Other (r hand hematoma stable) Extremities: No: Cold, Cool Edema: No Integumentary: Yes: Bruising. No: Rash Neurological: Yes: WNL, Alert, Oriented. No: Tremors ...Motor Strength: WNL Psychiatric: Yes: WNL, Alert, Oriented. No: Agitated Labs: CBC, BMP 05/19/18 16:15 05/19/18 16:15 INR, PTT INR 0.97 (0.83-1.09) 05/19/18 16:15 - ....Imaging Other: Report Reviewed Assessment/Plan The patient is a 57F w/ a history of severe advanced COPD O2 dependant and frequent Bipap use, HTN, CAD, hypothyroidism who presents from [facility] for evaluation of increasing respiratory distress and associated confusion/ lethargy. The patient was recently admitted for a COPD exacerbation. Check labs , ABG pulmonary and neurology f/u iv steroids, nebs, O2, Bipap r/o infection R hand hematoma seen by ortho hand surgery previously in H rec ice and elevation - f/u orhto if not resolving falls decubs DVT PFX prognosis guarded d/w pt and staff d/w pt's
[2018-05-21 08:09] LABS: BASO % 0.2 % (0-2.0); HEMATOCRIT 29.4 % (32.4-45.2); LYMPH % 0.8 % (8-40); MCH 31.4 pg (25.7-33.7); MEAN CELL VOLUME 92.2 fl (80-96); MEAN PLT VOLUME 8.6 fl (7.5-11.1); MONO % 3.1 % (3.8-10.2); NEUT % 95.9 % (42.8-82.8); PLATELET COUNT 174 K/MM3 (134-434); RBC 3.19 M/mm3 (3.60-5.2); RDW 13.1 % (11.6-15.6); WHITE BLOOD COUNT 15.5 K/mm3 (4.0-10.0)
[2018-05-21] MEDS: ALBUTEROL SO4 0.083% IH SOL 2.5 MG/3 ML VIAL.NEB. NEB PRN ×3 (08:29→20:30)
--- NOTE | 2018-05-21 09:01 | CONSULT ---
Consult - text type - Consultation Consultation Note: Neurology History of Present Illness 57F w/ a history of COPD (2L NC at home), HTN, CAD, hypothyroidism who presents from [facility] for evaluation of increasing respiratory distress and associated confusion/lethargy. The patient was recently admitted for a COPD exacerbation. According to notes the family reported when the patient is having an exacerbation, it is typical for her to become confused. She was admitted and Pulmonary following closely. CT head completed and without acute changes. During my evaluation, able to tell me where she is, her name, knows it's Apr 2018. Appears to be at baseline though fatigued appearing and sleepy this AM. Past History - Past Medical History Allergies/Adverse Reactions: Allergies Allergy/AdvReac Type Severity Reaction Status Date / Time Penicillins Allergy Severe Difficulty Verified 05/19/18 16:04 Breathing Home Medications: Ambulatory Orders Levothyroxine [Synthroid -] 100 mcg PO DAILY@0700 tablet 06/24/17 Losartan Potassium [Cozaar -] 25 mg PO DAILY #30 tablet 06/24/17 Roflumilast [Daliresp] 500 mcg PO DAILY #30 tablet 06/24/17 Escitalopram Oxalate [Lexapro -] 10 mg PO DAILY 08/31/17 Potassium Chloride [K-Dur -] 10 meq PO DAILY 08/31/17 Aspirin [ASA -] 81 mg PO DAILY 02/01/18 Albuterol Sulfate Inhaler - [Ventolin HFA Inhaler -] 1 - 2 inh PO Q6H PRN Montelukast Sodium [Singulair] 10 mg PO DAILY 04/05/18 Rosuvastatin [Crestor -] 5 mg PO HS 04/05/18 Albuterol 0.083% Nebulizer Colette [Ventolin 0.083% Nebulizer Soln -] 1 amp NEB Q8H PRN 05/06/18 Acetaminophen [Tylenol .Regular Strength -] 650 mg PO Q6H PRN tablet 05/10/18 Furosemide [Lasix -] 20 mg PO DAILY tablet 05/10/18 Heparin - 5,000 unit SQ BID vial 05/10/18 predniSONE [Deltasone -] 40 mg PO DAILY #60 tablet 05/10/18 Acetaminophen [Tylenol .Regular Strength -] 650 mg PO Q6H PRN tablet 05/16/18 Furosemide [Lasix -] 20 mg PO DAILY tablet 05/16/18 Heparin - 5,000 unit SQ BID vial 05/16/18 Cardiac Disorders: (CHF) CVA: No COPD: Yes (O2 dependent at home) CHF: Yes DVT: No Dementia: No Diabetes: No HTN: Yes Seizures: No Thyroid Disease: Yes (hypo) - Immunization History Immunization Up to Date: Yes - Suicide/Smoking/Psychosocial Hx Smoking History: Never smoked Have you smoked in the past 12 months: No If you are a former smoker, when did you quit?: 8 years ago Hx Alcohol Use: No Drug/Substance Use Hx: No Substance Use Type: None Hx Substance Use Treatment: No Review of Systems - Review of Systems Able to Perform ROS?: No (medical condition) *Physical Exam Vital Signs Period Temp Pulse Resp BP Sys/Domínguez Pulse Ox Last 24 Hr 98 F-98.5 F 65-95 16-24 105-141/68-85 94-100 GENERAL: Awake, easily arousable to voice, oriented to self, knows location, knows month and year HEAD: No signs of trauma, normocephalic, atraumatic EYES: PERRLA, EOMI ENT: Hearing grossly normal, nares patent, oropharynx clear without exudates. Moist mucosa LUNGS: on 4LNC (2LNC at home); moderate diffuse wheeze b/l HEART: Tachycardia with regular rhythm, normal S1 and S2, no murmurs appreciated , peripheral pulses normal and equal bilaterally ABDOMEN: Soft, nontender, normoactive bowel sounds. No guarding, no rebound EXTREMITIES : 2+ BLE edema to knee; RUE hand and forearm hematoma, Normal range of motion NEUROLOGICAL: Cranial nerves II through XII grossly intact. no focal sensorimotor deficits, finger to nose normal, gait deferred CBCD WBC 15.5 K/mm3 (4.0-10.0) H 05/21/18 06:45 RBC 3.19 M/mm3 (3.60-5.2) L 05/21/18 06:45 Hgb 10.0 GM/dL (10.7-15.3) L 05/21/18 06:45 Hct 29.4 % (32.4-45.2) L 05/21/18 06:45 MCV 92.2 fl (80-96) 05/21/18 06:45 MCHC 34.0 g/dl (32.0-36.0) 05/21/18 06:45 RDW 13.1 % (11.6-15.6) 05/21/18 06:45 Plt Count 174 K/MM3 (134-434) 05/21/18 06:45 MPV 8.6 fl (7.5-11.1) 05/21/18 06:45 CMP Sodium 137 mmol/L (136-145) 05/19/18 16:15 Potassium 3.7 mmol/L (3.5-5.1) 05/19/18 16:15 Chloride 74 mmol/L (98-107) L 05/19/18 16:15 Carbon Dioxide > 45 mmol/L (21-32) H 05/19/18 16:15 Anion Gap 18 MMOL/L (8-16) H 05/19/18 16:15 BUN 19 mg/dL (7-18) H 05/19/18 16:15 Creatinine 0.5 mg/dL (0.55-1.3) L 05/19/18 16:15 Creat Clearance w eGFR > 60 (>60) 05/19/18 16:15 Random Glucose 264 mg/dL (74-106) H 05/19/18 16:15 Calcium 8.4 mg/dL (8.5-10.1) L 05/19/18 16:15 Total Bilirubin 1.1 mg/dL (0.2-1) H 05/19/18 16:15 AST 17 U/L (15-37) 05/19/18 16:15 ALT 38 U/L (13-61) 05/19/18 16:15 Alkaline Phosphatase 90 U/L (45-117) 05/19/18 16:15 Total Protein 5.3 g/dl (6.4-8.2) L 05/19/18 16:15 Albumin 3.2 g/dl (3.4-5.0) L 05/19/18 16:15 CARDIAC ENZYMES Troponin I 0.02 ng/ml (0.00-0.05) 05/19/18 16:27 Ct head reviewed Medical Decision Making 57F w/ a history of COPD (2L NC at home), HTN, CAD, hypothyroidism who presents from [facility] for evaluation of increasing respiratory distress and associated confusion/lethargy. The patient was recently admitted for a COPD exacerbation. According to notes the family reported when the patient is having an exacerbation, it is typical for her to become confused. She was admitted and Pulmonary following closely. CT head completed and without acute changes. During my evaluation, able to tell me where she is, her name, knows it's Apr 2018. Appears to be at baseline though fatigued appearing and sleepy this AM. Likely AMS, Toxic metabolic encephalopathy 2/2 respiratory distress. Continue optimization of COPD. Increased hydration, monitor BP, maintain normotensive range. Neurologically improving.
[2018-05-21 09:20] LABS: ALBUMIN 2.9 g/dl (3.4-5.0); ALK PHOS 83 U/L (45-117); BILIRUBIN,TOTAL 0.8 mg/dL (0.2-1); BLOOD UREA NITROGEN 27 mg/dL (7-18); CALCIUM 8.2 mg/dL (8.5-10.1); CHLORIDE 79 mmol/L (98-107); CREATININE 0.4 mg/dL (0.55-1.3); GLUCOSE,RANDOM 191 mg/dL (74-106); POTASSIUM 3.3 mmol/L (3.5-5.1); SGOT/AST 11 U/L (15-37); SGPT/ALT 30 U/L (13-61); SODIUM 139 mmol/L (136-145)
[2018-05-21] MEDS: ASPIRIN 81 MG CHEWABLE TABLETS PO SCH (10:00)
[2018-05-21] MEDS: ROFLUMILAST 500 MCG TABLET PO SCH (10:00)
[2018-05-21] MEDS: POTASSIUM CHLORIDE TABS 10 MEQ TABLET.ER (FP) PO SCH ×2 (10:00→21:07)
[2018-05-21] MEDS: ESCITALOPRAM OXALATE 10 MG TABLET (FP) PO SCH (10:00)
[2018-05-21] MEDS: PANTOPRAZOLE 20 MG TABLET (FP) PO SCH (10:00)
[2018-05-21] MEDS: HEPARIN NA (PORCINE) 5,000 UNITS/ML 1ML VIAL SQ SCH ×2 (10:00→21:07)
[2018-05-21] MEDS: FUROSEMIDE 20 MG TABLET (FP) PO SCH (10:00)
[2018-05-21] MEDS: LOSARTAN POTASSIUM 25 MG TABLET PO SCH (10:00)
--- NOTE | 2018-05-21 10:16 | EKG ---
Test Reason : Blood Pressure : / mmHG Vent. Rate : 093 BPM Atrial Rate : 093 BPM P-R Int : 122 ms QRS Dur : 064 ms QT Int : 374 ms P-R-T Axes : 000 071 074 degrees QTc Int : 465 ms POOR DATA QUALITY, INTERPRETATION MAY BE ADVERSELY AFFECTED NORMAL SINUS RHYTHM Confirmed by CHRISTIANO MCQUEEN MD ([id number]) on 05/21/2018 10:16:10 AM Referred By: Confirmed By:CHRISTIANO MCQUEEN MD
--- NOTE | 2018-05-21 10:21 | PN ---
Progress Note, Physician History of Present Illness: pulmonary alert,comfortable,-resp distress - Current Medication List Current Medications: Active Medications Acetaminophen (Tylenol -) 650 mg PO Q6H PRN PRN Reason: PAIN 1-7 Last Admin: 05/20/18 10:03 Dose: 650 mg Albuterol Sulfate (Ventolin 0.083% Nebulizer Soln -) 1 amp NEB Q8H PRN PRN Reason: SHORT OF BREATH/WHEEZING Last Admin: 05/21/18 08:29 Dose: 1 amp Albuterol Sulfate (Ventolin Hfa Inhaler -) 1 puff IH Q6H PRN PRN Reason: ASTHMA Aspirin (Asa -) 81 mg PO DAILY [facility] Last Admin: 05/20/18 10:00 Dose: 81 mg Escitalopram Oxalate (Lexapro -) 10 mg PO DAILY [facility] Last Admin: 05/20/18 10:02 Dose: 10 mg Furosemide (Lasix -) 20 mg PO DAILY [facility] Last Admin: 05/20/18 10:02 Dose: 20 mg Heparin Sodium (Porcine) (Heparin -) 5,000 unit SQ BID [facility] Last Admin: 05/20/18 21:26 Dose: 5,000 unit Insulin Aspart (Novolog Vial Sliding Scale -) 1 vial SQ ACHS [facility]; Protocol Last Admin: 05/21/18 06:19 Dose: 4 units Levothyroxine Sodium (Synthroid -) 100 mcg PO DAILY@0700 [facility] Last Admin: 05/21/18 06:19 Dose: 100 mcg Losartan Potassium (Cozaar -) 25 mg PO DAILY [facility] Last Admin: 05/20/18 10:01 Dose: 25 mg Methylprednisolone Sodium Succinate (Solu-Medrol -) 40 mg IVPUSH Q8H-IV [facility] Last Admin: 05/21/18 01:12 Dose: 40 mg Montelukast Sodium (Singulair -) 10 mg PO HS [facility] Last Admin: 05/20/18 21:26 Dose: 10 mg Pantoprazole Sodium (Protonix -) 20 mg PO DAILY [facility] Last Admin: 05/20/18 10:02 Dose: 20 mg Potassium Chloride (K-Dur -) 10 meq PO DAILY [facility] Last Admin: 05/20/18 10:01 Dose: 10 meq Roflumilast (Daliresp -) 500 mcg PO DAILY [facility] Last Admin: 05/20/18 10:01 Dose: 500 mcg Rosuvastatin Calcium (Crestor -) 5 mg PO HS [facility] Last Admin: 05/20/18 21:26 Dose: 5 mg - Objective Vital Signs: Vital Signs Temperature 98.2 F 05/21/18 06:00 Pulse Rate 93 H 05/21/18 06:00 Respiratory Rate 20 05/21/18 06:00 Blood Pressure 138/80 05/21/18 06:00 O2 Sat by Pulse Oximetry (%) 99 05/21/18 08:29 Constitutional: Yes: Well Nourished, Calm Eyes: Yes: WNL HENT: Yes: WNL Neck: Yes: WNL Cardiovascular: Yes: Regular Rate and Rhythm, S1, S2 Respiratory: Yes: Wheezes (steve wheezes) Gastrointestinal: Yes: Normal Bowel Sounds, Soft Extremities: Yes: Other (r hand swollen,ecchymotic) Edema: No Labs: CBC, BMP 05/21/18 06:45 05/21/18 06:45 INR, PTT INR 0.97 (0.83-1.09) 05/19/18 16:15 Problem List - Problems (1) Altered mental status Code(s): R41.82 - ALTERED MENTAL STATUS, UNSPECIFIED Qualifiers: Altered mental status type: disorientation Qualified Code(s): R41.0 - Disorientation, unspecified (2) COPD exacerbation Code(s): J44.1 - CHRONIC OBSTRUCTIVE PULMONARY DISEASE W (ACUTE) EXACERBATION (3) Acute on chronic respiratory failure with hypoxia and hypercapnia Code(s): J96.21 - ACUTE AND CHRONIC RESPIRATORY FAILURE WITH HYPOXIA; J96.22 - ACUTE AND CHRONIC RESPIRATORY FAILURE WITH HYPERCAPNIA (4) CHF (congestive heart failure) Code(s): I50.9 - HEART FAILURE, UNSPECIFIED (5) COPD exacerbation Code(s): J44.1 - CHRONIC OBSTRUCTIVE PULMONARY DISEASE W (ACUTE) EXACERBATION (6) Diastolic dysfunction Code(s): I51.9 - HEART DISEASE, UNSPECIFIED (7) Sleep apnea Code(s): G47.30 - SLEEP APNEA, UNSPECIFIED Assessment/Plan IMP ACUTE ON CHRONIC HYPOXEMIC HYPERCAPNEIC RESPIRATORY FAILURE COPD O2 DEPENDENT ALTERED MENTAL STATUS CHF HYPOTHYROID NAVDEEP PLAN STEROIDS INHALED BRONCHODILATORS O2 BIPAP AT NIGHT AND PRN F/U ABGS F/U CHEST X-RAYS Problem List - Problems (1) Altered mental status Code(s): R41.82 - ALTERED MENTAL STATUS, UNSPECIFIED Qualifiers: Altered mental status type: disorientation Qualified Code(s): R41.0 - Disorientation, unspecified (2) COPD exacerbation Code(s): J44.1 - CHRONIC OBSTRUCTIVE PULMONARY DISEASE W (ACUTE) EXACERBATION (3) Acute on chronic respiratory failure with hypoxia and hypercapnia Code(s): J96.21 - ACUTE AND CHRONIC RESPIRATORY FAILURE WITH HYPOXIA; J96.22 - ACUTE AND CHRONIC RESPIRATORY FAILURE WITH HYPERCAPNIA (4) CHF (congestive heart failure) Code(s): I50.9 - HEART FAILURE, UNSPECIFIED (5) COPD exacerbation Code(s): J44.1 - CHRONIC OBSTRUCTIVE PULMONARY DISEASE W (ACUTE) EXACERBATION (6) Diastolic dysfunction Code(s): I51.9 - HEART DISEASE, UNSPECIFIED (7) Sleep apnea Code(s): G47.30 - SLEEP APNEA, UNSPECIFIED
[2018-05-21] MEDS ORDERED: PT OWN MED DRAWER 7, Y5N ONE ×2 (10:52→20:22)
[2018-05-21 12:10] LABS: ANISOCYTOSIS 0; MACROCYTOSIS 0; PLATELET ESTIMATE NORMAL
--- NOTE | 2018-05-21 12:52 | PN ---
Progress Note (short form) - Note Progress Note: ID Consult dictated Asymptomatic bacteruria Leukocytosis likely steroid- induced No treatment for + urine c/s advised
--- NOTE | 2018-05-21 13:37 | CONS ---
DATE OF CONSULTATION: 05/21/2018 HISTORY OF PRESENT ILLNESS: The patient is a 57-year-old female evaluated for positive urine culture. She has a history of COPD and had had multiple recent hospitalizations for acute exacerbations. At the long term she developed increasing shortness of breath and confusion and she was transferred to the emergency room where she was diagnosed with acute exacerbation of COPD. She was treated with BiPAP, inhaled bronchodilators and intravenous corticosteroids. A urinalysis showed 1 white cell. Urine culture is growing Enterococcus species. She is awake and alert. She denies any urinary tract symptoms. She denies any dysuria or hematuria. No complaints of suprapubic or flank pain. She has been afebrile. White blood cell count is elevated on steroids. PAST MEDICAL HISTORY: Positive for COPD, hypertension, coronary artery disease, hypothyroidism. ALLERGIES: PENICILLIN. MEDICATIONS: Synthroid; Cozaar; Lexapro; aspirin; Singulair; Crestor; Lasix. SOCIAL HISTORY: Nonsmoker. residential resident. SYSTEMS REVIEW:Neurologic: Positive for altered mental status. No loss of consciousness, seizure activity or focal weakness. Cardiac: Negative chest pain or palpitations. Respiratory: As her HPI. Gastrointestinal: Negative vomiting or diarrhea. Genitourinary: As per HPI. LABORATORY DATA: White count 15.5 with a left shift, hematocrit 29.4, platelet count 174. BUN 27, creatinine 0.4. Chest x-ray shows left basilar atelectasis. Urine culture: Group D strep or Enterococcus species. PHYSICAL EXAMINATION:General: She is awake and alert. She is not acutely toxic appearing, in no acute distress. Vital Signs: Temperature 98.2, blood pressure 138/80, pulse 93 and regular, respirations 20 per minute.HEENT: Sclerae are anicteric. Cardiac: Heart sounds S1, S2. Lungs: Scattered rhonchi bilaterally. Abdomen: Soft. No suprapubic or flank tenderness. Extremities: Negative for edema. There is a large area of ecchymosis present on the dorsum of the left hand extending to the wrist and a large fluctuant area on the dorsum of the hand secondary to recent phlebotomy. IMPRESSION: 1. Asymptomatic bacteruria. 2. Leukocytosis, likely steroid induced. 3. Acute exacerbation of chronic obstructive pulmonary disease. 4. Large right hand ecchymosis and probable hematoma secondary to phlebotomy. RECOMMENDATIONS: No treatment advised for positive urine culture. Observe off antibiotic therapy. Continue treatment for COPD. Thank you for the kind referral. CHRISTIANO DENNIS M.D. [id number]
[2018-05-21] MEDS: ROSUVASTATIN CA 5 MG TABLET (FP) PO SCH (21:05)
[2018-05-21] MEDS: ACETAMINOPHEN 325 MG TABLET (FP) PO PRN (21:05)
[2018-05-21] MEDS: MONTELUKAST NA 10 MG TABLET PO SCH (21:05)
[2018-05-22] MEDS: methylPREDNISolone NA SUCC 40 MG/1 ML VIAL IVPUSH SCH ×3 (01:10→17:28)
[2018-05-22] MEDS: INSULIN SLIDING SCALE (NOVOLOG) 1 VIAL SQ SCH ×4 (06:26→22:16)
--- NOTE | 2018-05-22 07:08 | PN ---
Progress Note, Physician Chief Complaint: respiratory stable neuro and pulm consults noted UCx Enteroccocus seen by ID - contamination, no ATB at this point R hand hematoma - no pain, hand warm but pt said it feels uncomfortable and more tense; also has some abdominal and under breasts bruises, pt asked to stop heparin - will DC sq heparin for now dw staff; d/w pt possible risks PE/DVT off heparin and risk of bleeding and bruising on heparin - Current Medication List Current Medications: Active Medications Acetaminophen (Tylenol -) 650 mg PO Q6H PRN PRN Reason: PAIN 1-7 Last Admin: 05/21/18 21:05 Dose: 650 mg Albuterol Sulfate (Ventolin 0.083% Nebulizer Soln -) 1 amp NEB Q8H PRN PRN Reason: SHORT OF BREATH/WHEEZING Last Admin: 05/21/18 20:30 Dose: 1 amp Albuterol Sulfate (Ventolin Hfa Inhaler -) 1 puff IH Q6H PRN PRN Reason: ASTHMA Aspirin (Asa -) 81 mg PO DAILY [facility] Last Admin: 05/21/18 10:00 Dose: 81 mg Escitalopram Oxalate (Lexapro -) 10 mg PO DAILY [facility] Last Admin: 05/21/18 10:00 Dose: 10 mg Furosemide (Lasix -) 20 mg PO DAILY [facility] Last Admin: 05/21/18 10:00 Dose: 20 mg Heparin Sodium (Porcine) (Heparin -) 5,000 unit SQ BID [facility] Last Admin: 05/21/18 21:07 Dose: 5,000 unit Insulin Aspart (Novolog Vial Sliding Scale -) 1 vial SQ ACHS [facility]; Protocol Last Admin: 05/22/18 06:26 Dose: Not Given Levothyroxine Sodium (Synthroid -) 75 mcg PO DAILY@0700 [facility] Losartan Potassium (Cozaar -) 25 mg PO DAILY [facility] Last Admin: 05/21/18 10:00 Dose: 25 mg Methylprednisolone Sodium Succinate (Solu-Medrol -) 40 mg IVPUSH Q8H-IV [facility] Last Admin: 05/22/18 01:10 Dose: 40 mg Montelukast Sodium (Singulair -) 10 mg PO HS [facility] Last Admin: 05/21/18 21:05 Dose: 10 mg Pantoprazole Sodium (Protonix -) 20 mg PO DAILY [facility] Last Admin: 05/21/18 10:00 Dose: 20 mg Potassium Chloride (K-Dur -) 10 meq PO BID [facility] Last Admin: 05/21/18 21:07 Dose: 10 meq Roflumilast (Daliresp -) 500 mcg PO DAILY [facility] Last Admin: 05/21/18 10:00 Dose: 500 mcg Rosuvastatin Calcium (Crestor -) 5 mg PO HS [facility] Last Admin: 05/21/18 21:05 Dose: 5 mg - Objective Vital Signs: Vital Signs Temperature 97.8 F 05/22/18 05:57 Pulse Rate 87 05/22/18 05:57 Respiratory Rate 20 05/22/18 05:57 Blood Pressure 120/67 05/22/18 05:57 O2 Sat by Pulse Oximetry (%) 95 05/21/18 21:00 Constitutional: Yes: No Distress, Calm Eyes: Yes: Conjunctiva Clear HENT: Yes: Atraumatic Neck: Yes: Supple Cardiovascular: Yes: Regular Rate and Rhythm Respiratory: Yes: Rales Gastrointestinal: Yes: Soft. No: Distention Genitourinary: No: CVA Tenderness - Left, CVA Tenderness - Right, Hematuria Musculoskeletal: No: Joint Stiffness, Joint Swelling Extremities: No: Cold, Cool, Cyanosis Edema: No Integumentary: Yes: Bruising. No: Rash, Venous Stasis Changes Neurological: Yes: WNL, Alert, Oriented ...Motor Strength: WNL Psychiatric: Yes: WNL, Alert, Oriented. No: Agitated, Suicidal Ideation Labs: CBC, BMP 05/21/18 06:45 05/21/18 06:45 INR, PTT INR 0.97 (0.83-1.09) 05/19/18 16:15 - ....Imaging Other: Report Reviewed Assessment/Plan The patient is a 57F w/ a history of severe advanced COPD O2 dependant and frequent Bipap use, HTN, CAD, hypothyroidism who presents from [facility] for evaluation of increasing respiratory distress and associated confusion/ lethargy. The patient was recently admitted for a COPD exacerbation. pulmonary and neurology f/u iv steroids, nebs, O2, Bipap gastric pfx while on steroids; BGM and GLU control while on steroids ; bruises; R hand hematoma seen by ortho hand surgery previously in H - rec ice and elevation - orhto f/u; check hand US; hold sq heparin for now falls decubs DVT PFX prognosis guarded d/w pt and staff
[2018-05-22] MEDS: ALBUTEROL SO4 0.083% IH SOL 2.5 MG/3 ML VIAL.NEB. NEB PRN ×3 (07:33→21:03)
[2018-05-22 07:46] LABS: BASO % 0.8 % (0-2.0); HEMATOCRIT 32.1 % (32.4-45.2); LYMPH % 0.8 % (8-40); MCH 29.6 pg (25.7-33.7); MEAN CELL VOLUME 95.3 fl (80-96); MEAN PLT VOLUME 8.4 fl (7.5-11.1); MONO % 3.7 % (3.8-10.2); NEUT % 94.7 % (42.8-82.8); PLATELET COUNT 165 K/MM3 (134-434); RBC 3.37 M/mm3 (3.60-5.2); RDW 13.3 % (11.6-15.6)
[2018-05-22 08:50] LABS: BLOOD UREA NITROGEN 25 mg/dL (7-18); CALCIUM 8.2 mg/dL (8.5-10.1); CHLORIDE 82 mmol/L (98-107); CREATININE 0.4 mg/dL (0.55-1.3); GLUCOSE,RANDOM 147 mg/dL (74-106); POTASSIUM 3.8 mmol/L (3.5-5.1); SODIUM 143 mmol/L (136-145)
[2018-05-22] MEDS: HEPARIN NA (PORCINE) 5,000 UNITS/ML 1ML VIAL SQ SCH (09:34)
[2018-05-22] MEDS: ASPIRIN 81 MG CHEWABLE TABLETS PO SCH (09:36)
[2018-05-22] MEDS: FUROSEMIDE 20 MG TABLET (FP) PO SCH (09:36)
[2018-05-22] MEDS: POTASSIUM CHLORIDE TABS 10 MEQ TABLET.ER (FP) PO SCH ×2 (09:40→22:12)
[2018-05-22] MEDS: PANTOPRAZOLE 20 MG TABLET (FP) PO SCH (09:40)
[2018-05-22] MEDS: ROFLUMILAST 500 MCG TABLET PO SCH (09:41)
[2018-05-22] MEDS: ESCITALOPRAM OXALATE 10 MG TABLET (FP) PO SCH (09:41)
[2018-05-22] MEDS: LOSARTAN POTASSIUM 25 MG TABLET PO SCH (09:41)
[2018-05-22 09:45] LABS: ANION GAP -4 MMOL/L (8-16); CO2 65 mmol/L (21-32)
[2018-05-22 10:35] LABS: ANISOCYTOSIS 1+; MACROCYTOSIS 0; PLATELET ESTIMATE NORMAL
[2018-05-22 12:38] LABS: ANION GAP -1 MMOL/L (8-16); CO2 61 mmol/L (21-32)
--- NOTE | 2018-05-22 13:39 | PN ---
Progress Note (short form) - Note Progress Note: PULMONARY Still with some shortness of breath, cough and wheezing. Vital Signs Period Temp Pulse Resp BP Sys/Domínguez Pulse Ox Last 24 Hr 97.8 F-98.5 F 76-98 20-20 107-120/50-67 95-99 Gen: somnolent but arousable Heart: RRR Lung: scattered rhonchi, wheezes Abd: soft, nontender Ext: no edema CBC, BMP 05/22/18 07:08 05/22/18 07:08 Active Medications Acetaminophen (Tylenol -) 650 mg PO Q6H PRN PRN Reason: PAIN 1-7 Last Admin: 05/21/18 21:05 Dose: 650 mg Albuterol Sulfate (Ventolin 0.083% Nebulizer Soln -) 1 amp NEB Q8H PRN PRN Reason: SHORT OF BREATH/WHEEZING Last Admin: 05/22/18 07:33 Dose: 1 amp Albuterol Sulfate (Ventolin Hfa Inhaler -) 1 puff IH Q6H PRN PRN Reason: ASTHMA Aspirin (Asa -) 81 mg PO DAILY [facility] Last Admin: 05/22/18 09:36 Dose: 81 mg Escitalopram Oxalate (Lexapro -) 10 mg PO DAILY [facility] Last Admin: 05/22/18 09:41 Dose: 10 mg Furosemide (Lasix -) 20 mg PO DAILY [facility] Last Admin: 05/22/18 09:36 Dose: 20 mg Heparin Sodium (Porcine) (Heparin -) 5,000 unit SQ BID [facility] Last Admin: 05/22/18 09:34 Dose: 5,000 unit Insulin Aspart (Novolog Vial Sliding Scale -) 1 vial SQ ACHS [facility]; Protocol Last Admin: 05/22/18 12:32 Dose: 4 units Levothyroxine Sodium (Synthroid -) 75 mcg PO DAILY@0700 [facility] Losartan Potassium (Cozaar -) 25 mg PO DAILY [facility] Last Admin: 05/22/18 09:41 Dose: 25 mg Methylprednisolone Sodium Succinate (Solu-Medrol -) 40 mg IVPUSH Q8H-IV [facility] Last Admin: 05/22/18 09:34 Dose: 40 mg Montelukast Sodium (Singulair -) 10 mg PO HS [facility] Last Admin: 05/21/18 21:05 Dose: 10 mg Pantoprazole Sodium (Protonix -) 20 mg PO DAILY [facility] Last Admin: 05/22/18 09:40 Dose: 20 mg Potassium Chloride (K-Dur -) 10 meq PO BID [facility] Last Admin: 05/22/18 09:40 Dose: 10 meq Roflumilast (Daliresp -) 500 mcg PO DAILY [facility] Last Admin: 05/22/18 09:41 Dose: 500 mcg Rosuvastatin Calcium (Crestor -) 5 mg PO HS [facility] Last Admin: 05/21/18 21:05 Dose: 5 mg A/P Acute on Chronic Hypoxic and Hypercapneic Respiratory Failure Altered Mental Status likely from Hypercapnea LV Diastolic Dysfunction NAVDEEP/OHS Hypothyroidism Hyperlipidemia - continue medrol - inhaled bronchodilators - O2 to keep Spo2 88-92% - BiPAP at night and PRN during day - DVT prophylaxis
[2018-05-22] MEDS: MONTELUKAST NA 10 MG TABLET PO SCH (22:12)
[2018-05-22] MEDS: ROSUVASTATIN CA 5 MG TABLET (FP) PO SCH (22:12)
[2018-05-22] MEDS: ACETAMINOPHEN 325 MG TABLET (FP) PO PRN (22:12)
[2018-05-23] MEDS: methylPREDNISolone NA SUCC 40 MG/1 ML VIAL IVPUSH SCH ×3 (03:32→17:17)
--- NOTE | 2018-05-23 06:42 | PN ---
Progress Note, Physician Chief Complaint: said she has chest tightness cough and wheezing this am; refused Bipap last night R hand no pain but feels tight; US notyed hand surgery called - Current Medication List Current Medications: Active Medications Acetaminophen (Tylenol -) 650 mg PO Q6H PRN PRN Reason: PAIN 1-7 Last Admin: 05/22/18 22:12 Dose: 650 mg Albuterol Sulfate (Ventolin 0.083% Nebulizer Soln -) 1 amp NEB Q8H PRN PRN Reason: SHORT OF BREATH/WHEEZING Last Admin: 05/22/18 21:03 Dose: 1 amp Albuterol Sulfate (Ventolin Hfa Inhaler -) 1 puff IH Q6H PRN PRN Reason: ASTHMA Aspirin (Asa -) 81 mg PO DAILY [facility] Last Admin: 05/22/18 09:36 Dose: 81 mg Escitalopram Oxalate (Lexapro -) 10 mg PO DAILY [facility] Last Admin: 05/22/18 09:41 Dose: 10 mg Furosemide (Lasix -) 20 mg PO DAILY [facility] Last Admin: 05/22/18 09:36 Dose: 20 mg Heparin Sodium (Porcine) (Heparin -) 5,000 unit SQ BID [facility] Last Admin: 05/22/18 09:34 Dose: 5,000 unit Insulin Aspart (Novolog Vial Sliding Scale -) 1 vial SQ [facility]; Protocol Last Admin: 05/22/18 22:16 Dose: 12 units Levothyroxine Sodium (Synthroid -) 75 mcg PO DAILY@0700 [facility] Losartan Potassium (Cozaar -) 25 mg PO DAILY [facility] Last Admin: 05/22/18 09:41 Dose: 25 mg Methylprednisolone Sodium Succinate (Solu-Medrol -) 40 mg IVPUSH Q8H-IV [facility] Last Admin: 05/23/18 03:32 Dose: 40 mg Montelukast Sodium (Singulair -) 10 mg PO HS [facility] Last Admin: 05/22/18 22:12 Dose: 10 mg Pantoprazole Sodium (Protonix -) 20 mg PO DAILY [facility] Last Admin: 05/22/18 09:40 Dose: 20 mg Potassium Chloride (K-Dur -) 10 meq PO BID [facility] Last Admin: 05/22/18 22:12 Dose: 10 meq Roflumilast (Daliresp -) 500 mcg PO DAILY [facility] Last Admin: 05/22/18 09:41 Dose: 500 mcg Rosuvastatin Calcium (Crestor -) 5 mg PO HS [facility] Last Admin: 05/22/18 22:12 Dose: 5 mg - Objective Vital Signs: Vital Signs Temperature 97.8 F 05/23/18 06:00 Pulse Rate 78 05/23/18 06:00 Respiratory Rate 20 05/23/18 06:00 Blood Pressure 107/60 05/23/18 06:00 O2 Sat by Pulse Oximetry (%) 97 05/22/18 21:00 Constitutional: Yes: No Distress, Calm Eyes: Yes: Conjunctiva Clear HENT: Yes: Atraumatic Neck: Yes: Supple Cardiovascular: Yes: Regular Rate and Rhythm Respiratory: Yes: Rales, Wheezes Gastrointestinal: Yes: Soft. No: Distention Genitourinary: No: CVA Tenderness - Left, CVA Tenderness - Right, Hematuria Musculoskeletal: No: Joint Stiffness, Joint Swelling Extremities: Yes: Other ( hand dorsal hematoma; UE echymoses half way up forearm improving). No: Cold, Cool, Cyanosis Edema: No Integumentary: No: Rash, Venous Stasis Changes Neurological: Yes: WNL, Alert, Oriented ...Motor Strength: WNL Psychiatric: Yes: WNL, Alert, Oriented. No: Agitated Labs: CBC, BMP 05/22/18 07:08 05/22/18 07:08 INR, PTT INR 0.97 (0.83-1.09) 05/19/18 16:15 - ....Imaging Other: Report Reviewed Assessment/Plan The patient is a 57F w/ a history of severe advanced COPD O2 dependant and frequent Bipap use, HTN, CAD, hypothyroidism who presents from [facility] for evaluation of increasing respiratory distress and associated confusion/ lethargy. The patient was recently admitted for a COPD exacerbation. pulmonary and neurology f/u iv steroids, nebs, O2, Bipap; ordered chest CT (on 05.21 not done and today again) gastric pfx while on steroids; BGM and GLU control while on steroids RUE L arm, abdomen and under breasts bruises; R hand hematoma seen by ortho hand surgery previously in H - rec ice and elevation - orhto f/u; noted hand US ; hold sq heparin for now falls decubs DVT PFX prognosis guarded d/w pt and staff
[2018-05-23] MEDS: INSULIN SLIDING SCALE (NOVOLOG) 1 VIAL SQ SCH ×4 (06:58→21:46)
[2018-05-23] MEDS: LOSARTAN POTASSIUM 25 MG TABLET PO SCH (10:12)
[2018-05-23] MEDS: PANTOPRAZOLE 20 MG TABLET (FP) PO SCH (10:12)
[2018-05-23] MEDS: ESCITALOPRAM OXALATE 10 MG TABLET (FP) PO SCH (10:12)
[2018-05-23] MEDS: ASPIRIN 81 MG CHEWABLE TABLETS PO SCH (10:12)
[2018-05-23] MEDS: FUROSEMIDE 20 MG TABLET (FP) PO SCH (10:12)
[2018-05-23] MEDS: POTASSIUM CHLORIDE TABS 10 MEQ TABLET.ER (FP) PO SCH ×2 (10:12→21:45)
[2018-05-23] MEDS: ROFLUMILAST 500 MCG TABLET PO SCH (10:13)
--- NOTE | 2018-05-23 13:49 | PN ---
Progress Note (short form) - Note Progress Note: PULMONARY Still with some shortness of breath, cough and wheezing. Refused BiPAP last night. Vital Signs Period Temp Pulse Resp BP Sys/Domínguez Pulse Ox Last 24 Hr 97.2 F-98.3 F 78-100 20-20 96-126/47-62 97-98 Gen: more alert, awake Heart: RRR Lung: scattered rhonchi, wheezes Abd: soft, nontender Ext: no edema CBC, BMP 05/22/18 07:08 05/22/18 07:08 Active Medications Acetaminophen (Tylenol -) 650 mg PO Q6H PRN PRN Reason: PAIN 1-7 Last Admin: 05/22/18 22:12 Dose: 650 mg Albuterol Sulfate (Ventolin 0.083% Nebulizer Soln -) 1 amp NEB Q8H PRN PRN Reason: SHORT OF BREATH/WHEEZING Last Admin: 05/22/18 21:03 Dose: 1 amp Albuterol Sulfate (Ventolin Hfa Inhaler -) 1 puff IH Q6H PRN PRN Reason: ASTHMA Aspirin (Asa -) 81 mg PO DAILY [facility] Last Admin: 05/23/18 10:12 Dose: 81 mg Escitalopram Oxalate (Lexapro -) 10 mg PO DAILY [facility] Last Admin: 05/23/18 10:12 Dose: 10 mg Furosemide (Lasix -) 20 mg PO DAILY [facility] Last Admin: 05/23/18 10:12 Dose: 20 mg Heparin Sodium (Porcine) (Heparin -) 5,000 unit SQ BID [facility] Last Admin: 05/22/18 09:34 Dose: 5,000 unit Insulin Aspart (Novolog Vial Sliding Scale -) 1 vial SQ ACHS [facility]; Protocol Last Admin: 05/23/18 12:29 Dose: 4 units Levothyroxine Sodium (Synthroid -) 75 mcg PO DAILY@0700 [facility] Losartan Potassium (Cozaar -) 25 mg PO DAILY [facility] Last Admin: 05/23/18 10:12 Dose: 25 mg Methylprednisolone Sodium Succinate (Solu-Medrol -) 40 mg IVPUSH Q8H-IV [facility] Last Admin: 05/23/18 10:12 Dose: 40 mg Montelukast Sodium (Singulair -) 10 mg PO HS [facility] Last Admin: 05/22/18 22:12 Dose: 10 mg Pantoprazole Sodium (Protonix -) 20 mg PO DAILY [facility] Last Admin: 05/23/18 10:12 Dose: 20 mg Potassium Chloride (K-Dur -) 10 meq PO BID [facility] Last Admin: 05/23/18 10:12 Dose: 10 meq Roflumilast (Daliresp -) 500 mcg PO DAILY [facility] Last Admin: 05/23/18 10:13 Dose: 500 mcg Rosuvastatin Calcium (Crestor -) 5 mg PO HS [facility] Last Admin: 05/22/18 22:12 Dose: 5 mg A/P Acute on Chronic Hypoxic and Hypercapneic Respiratory Failure Altered Mental Status likely from Hypercapnea LV Diastolic Dysfunction NAVDEEP/OHS Hypothyroidism Hyperlipidemia - continue medrol, can decrease in AM - inhaled bronchodilators - O2 to keep Spo2 88-92% - BiPAP at night and PRN during day - DVT prophylaxis
--- NOTE | 2018-05-23 19:42 | PN ---
Progress Note (short form) - Note Progress Note: Called to see this patient for right hand hematoma. She was previously seen by my associate during last admission after hematoma formed after IV or blood draw from hand. She has been readmitted for respiratory reasons and PMD noted continued mass on right hand with eccymosis. PE: Pt with cpap machine on. Denies right hand pain Right UE: dorsal hand with soft mass on entire dorsum c/w hematoma. Also with diffuse eccymosis throught R ue. Also with mulitple eccymotic areas througout body. No redness warmth or evidence of infection. US right hand : Possible hematoma IMP: right hand hematoma REC: This hematoma will take a long time to resolve. For now main goal should be to prevent stiffness and infection. Recommend OT for hand ROM. Act as lb. No indication for surgical treatment at this time.
[2018-05-23] MEDS: MONTELUKAST NA 10 MG TABLET PO SCH (21:45)
[2018-05-23] MEDS: ROSUVASTATIN CA 5 MG TABLET (FP) PO SCH (21:45)
[2018-05-24] MEDS: methylPREDNISolone NA SUCC 40 MG/1 ML VIAL IVPUSH SCH ×2 (01:23→17:05)
[2018-05-24] MEDS: ALBUTEROL SO4 0.083% IH SOL 2.5 MG/3 ML VIAL.NEB. NEB PRN ×5 (04:32→21:25)
[2018-05-24] MEDS: INSULIN SLIDING SCALE (NOVOLOG) 1 VIAL SQ SCH ×4 (06:14→21:41)
[2018-05-24] MEDS: LEVOTHYROXINE NA 75 MCG TABLET (FP) PO SCH (06:15)
--- NOTE | 2018-05-24 06:32 | PN ---
Progress Note, Physician Chief Complaint: confused this am, refused bipap again will check ABG; d/w pulm dr Parrish labs pending heparin sq held - R hand hematoma smaller; d/w PT staff for R hand OT; still has sq echymoses on arms and chest - Current Medication List Current Medications: Active Medications Acetaminophen (Tylenol -) 650 mg PO Q6H PRN PRN Reason: PAIN 1-7 Last Admin: 05/22/18 22:12 Dose: 650 mg Albuterol Sulfate (Ventolin 0.083% Nebulizer Soln -) 1 amp NEB Q8H PRN PRN Reason: SHORT OF BREATH/WHEEZING Last Admin: 05/24/18 04:32 Dose: 1 amp Albuterol Sulfate (Ventolin Hfa Inhaler -) 1 puff IH Q6H PRN PRN Reason: ASTHMA Aspirin (Asa -) 81 mg PO DAILY [facility] Last Admin: 05/23/18 10:12 Dose: 81 mg Escitalopram Oxalate (Lexapro -) 10 mg PO DAILY [facility] Last Admin: 05/23/18 10:12 Dose: 10 mg Furosemide (Lasix -) 20 mg PO DAILY [facility] Last Admin: 05/23/18 10:12 Dose: 20 mg Heparin Sodium (Porcine) (Heparin -) 5,000 unit SQ BID [facility] Last Admin: 05/22/18 09:34 Dose: 5,000 unit Insulin Aspart (Novolog Vial Sliding Scale -) 1 vial SQ ACHS [facility]; Protocol Last Admin: 05/24/18 06:14 Dose: 2 units Levothyroxine Sodium (Synthroid -) 75 mcg PO DAILY@0700 [facility] Last Admin: 05/24/18 06:15 Dose: 75 mcg Methylprednisolone Sodium Succinate (Solu-Medrol -) 40 mg IVPUSH Q8H-IV [facility] Last Admin: 05/24/18 01:23 Dose: 40 mg Montelukast Sodium (Singulair -) 10 mg PO HS [facility] Last Admin: 05/23/18 21:45 Dose: 10 mg Pantoprazole Sodium (Protonix -) 20 mg PO DAILY [facility] Last Admin: 05/23/18 10:12 Dose: 20 mg Potassium Chloride (K-Dur -) 10 meq PO BID [facility] Last Admin: 05/23/18 21:45 Dose: 10 meq Roflumilast (Daliresp -) 500 mcg PO DAILY [facility] Last Admin: 05/23/18 10:13 Dose: 500 mcg Rosuvastatin Calcium (Crestor -) 5 mg PO HS [facility] Last Admin: 05/23/18 21:45 Dose: 5 mg - Objective Vital Signs: Vital Signs Temperature 98.2 F 05/24/18 05:35 Pulse Rate 99 H 05/24/18 05:35 Respiratory Rate 22 H 05/24/18 05:35 Blood Pressure 112/57 L 05/24/18 05:35 O2 Sat by Pulse Oximetry (%) 93 L 05/24/18 00:30 Constitutional: Yes: No Distress, Calm Eyes: Yes: Conjunctiva Clear HENT: Yes: Atraumatic Neck: Yes: Supple Cardiovascular: Yes: Regular Rate and Rhythm Respiratory: Yes: Rales Gastrointestinal: Yes: Soft. No: Distention Genitourinary: No: CVA Tenderness - Left, CVA Tenderness - Right Musculoskeletal: No: Joint Stiffness, Joint Swelling Extremities: No: Cold, Cool, Cyanosis Edema: No Integumentary: Yes: Bruising. No: Rash, Venous Stasis Changes Neurological: Yes: WNL, Alert, Confusion. No: Oriented ...Motor Strength: WNL Psychiatric: Yes: WNL, Alert. No: Oriented, Agitated Labs: CBC, BMP 05/22/18 07:08 05/22/18 07:08 INR, PTT INR 0.97 (0.83-1.09) 05/19/18 16:15 - ....Imaging Other: Report Reviewed Assessment/Plan The patient is a 57F w/ a history of severe advanced COPD O2 dependant and frequent Bipap use, HTN, CAD, hypothyroidism who presents from [facility] for evaluation of increasing respiratory distress and associated confusion/ lethargy. acute on chronic COPD exacerbation. pulmonary and neurology f/u iv steroids, nebs, O2, Bipap; gastric pfx while on steroids; check labs BGM and GLU control while on steroids RUE arm, abdomen and under breasts bruises; R hand hematoma seen by ortho hand surgery; OT/PT falls decubs DVT PFX prognosis guarded will call pt's and PCP d/w pt and staff
[2018-05-24 06:57] LABS: BASO % 0.2 % (0-2.0); HEMATOCRIT 32.1 % (32.4-45.2); LYMPH % 0.3 % (8-40); MCH 29.6 pg (25.7-33.7); MCHC 31.2 g/dl (32.0-36.0); MEAN CELL VOLUME 94.9 fl (80-96); MEAN PLT VOLUME 9.4 fl (7.5-11.1); NEUT % 98.5 % (42.8-82.8); PLATELET COUNT 119 K/MM3 (134-434); RBC 3.39 M/mm3 (3.60-5.2); RDW 13.2 % (11.6-15.6); WHITE BLOOD COUNT 28.6 K/mm3 (4.0-10.0)
[2018-05-24 07:58] LABS: ALBUMIN 2.6 g/dl (3.4-5.0); ALK PHOS 87 U/L (45-117); BLOOD UREA NITROGEN 57 mg/dL (7-18); CALCIUM 8.9 mg/dL (8.5-10.1); CHLORIDE 79 mmol/L (98-107); CREATININE 1.6 mg/dL (0.55-1.3); GLUCOSE,RANDOM 155 mg/dL (74-106); POTASSIUM 4.3 mmol/L (3.5-5.1); SGOT/AST 19 U/L (15-37); SGPT/ALT 31 U/L (13-61); SODIUM 137 mmol/L (136-145); TOT PROT 4.8 g/dl (6.4-8.2)
--- NOTE | 2018-05-24 08:29 | CON.ORTH ---
Consult Reason for Consultation:: right hand hematoma - Past Medical History Cardio/Vascular: Yes: CHF, HTN, Hyperlipdemia Pulmonary: Yes: COPD, O2 Dependent, Sleep Apnea ...LMP: 06/03/14 ...: No Infectious Disease: Yes: Other (pneumonia) Musculoskeletal: Yes: Chronic low back pain Endocrine: Yes: Hypothyroidism - Alcohol/Substance Use Hx Alcohol Use: No History of Substance Use: reports: None - Smoking History Smoking history: Never smoked Have you smoked in the past 12 months: No If you are a former smoker, when did you quit?: 8 years ago - Social History ADL: Family Assistance History of Recent Travel: No Home Medications - Allergies Allergies/Adverse Reactions: Allergies Allergy/AdvReac Type Severity Reaction Status Date / Time Penicillins Allergy Severe Difficulty Verified 05/19/18 16:04 Breathing - Home Medications Home Medications: Ambulatory Orders Levothyroxine [Synthroid -] 100 mcg PO DAILY@0700 tablet 06/24/17 Losartan Potassium [Cozaar -] 25 mg PO DAILY #30 tablet 06/24/17 Roflumilast [Daliresp] 500 mcg PO DAILY #30 tablet 06/24/17 Escitalopram Oxalate [Lexapro -] 10 mg PO DAILY 08/31/17 Potassium Chloride [K-Dur -] 10 meq PO DAILY 08/31/17 Aspirin [ASA -] 81 mg PO DAILY 02/01/18 Albuterol Sulfate Inhaler - [Ventolin HFA Inhaler -] 1 - 2 inh PO Q6H PRN Montelukast Sodium [Singulair] 10 mg PO DAILY 04/05/18 Rosuvastatin [Crestor -] 5 mg PO HS 04/05/18 Albuterol 0.083% Nebulizer Colette [Ventolin 0.083% Nebulizer Soln -] 1 amp NEB TID PRN 05/06/18 Acetaminophen [Tylenol .Regular Strength -] 650 mg PO Q6H PRN tablet 05/16/18 Furosemide [Lasix -] 20 mg PO DAILY tablet 05/16/18 Physical Exam for Ortho Vital Signs: Vital Signs Temperature 98.2 F 05/24/18 05:35 Pulse Rate 99 H 05/24/18 05:35 Respiratory Rate 22 H 05/24/18 05:35 Blood Pressure 112/57 L 05/24/18 05:35 O2 Sat by Pulse Oximetry (%) 95 05/24/18 06:57 Labs: CBC, BMP 05/24/18 06:20 05/24/18 06:20 INR, PTT INR 0.97 (0.83-1.09) 05/19/18 16:15 - Upper Extremity Hand: Yes: Right, Ecchymosis, Hematoma, Other (+ecchymosis, swelling/hematoma significantly improved since last admission, nontender, full ROM, nvi) Imaging - Results Ultrasound: Report Reviewed, Image Reviewed Assessment/Plan This is a 57 year old female with a significant past medical history of COPD ( multiple admissions for respiratory failure), CHF, HTN, HLD, hypothyroidism, and NAVDEEP, admitted for respiratory distress and subsequent confusion. She developed a hematoma during her last admission from arterial stick. Hematoma and swelling have significantly improved since last admission. Denies any pain, numbness or tingling. a/p- right hand hematoma- resolving Risks and benefits were d/w pt in detail US reviewed, no surgical intervention continue current treatment elevation ROM exercises hot packs d/w Dr. Guerra
[2018-05-24] MEDS ORDERED: methylPREDNISolone NA SUCC 40 MG/1 ML VIAL IVPUSH SCH (08:30)
--- NOTE | 2018-05-24 09:02 | PN ---
Progress Note (short form) - Note Progress Note: Neurology History of Present Illness 57F w/ a history of COPD (2L NC at home), HTN, CAD, hypothyroidism who presents from [facility] for evaluation of increasing respiratory distress and associated confusion/lethargy. The patient was recently admitted for a COPD exacerbation. According to notes the family reported when the patient is having an exacerbation, it is typical for her to become confused. She was admitted and Pulmonary following closely. CT head completed and without acute changes. During my evaluation, this AM more confused. Was not telling me where she is but not somnolent. Ortho note reviewed, R hand echymosis, ultrasound completed and reviewed. Allergies/Adverse Reactions: Allergies Allergy/AdvReac Type Severity Reaction Status Date / Time Penicillins Allergy Severe Difficulty Verified 05/19/18 16:04 Breathing Active Medications Acetaminophen (Tylenol -) 650 mg PO Q6H PRN PRN Reason: PAIN 1-7 Last Admin: 05/22/18 22:12 Dose: 650 mg Albuterol Sulfate (Ventolin 0.083% Nebulizer Soln -) 1 amp NEB Q8H PRN PRN Reason: SHORT OF BREATH/WHEEZING Last Admin: 05/24/18 07:10 Dose: 1 amp Albuterol Sulfate (Ventolin Hfa Inhaler -) 1 puff IH Q6H PRN PRN Reason: ASTHMA Aspirin (Asa -) 81 mg PO DAILY [facility] Last Admin: 05/23/18 10:12 Dose: 81 mg Escitalopram Oxalate (Lexapro -) 10 mg PO DAILY [facility] Last Admin: 05/23/18 10:12 Dose: 10 mg Furosemide (Lasix -) 20 mg PO DAILY [facility] Last Admin: 05/23/18 10:12 Dose: 20 mg Heparin Sodium (Porcine) (Heparin -) 5,000 unit SQ BID [facility] Last Admin: 05/22/18 09:34 Dose: 5,000 unit Insulin Aspart (Novolog Vial Sliding Scale -) 1 vial SQ ACHS [facility]; Protocol Last Admin: 05/24/18 06:14 Dose: 2 units Levothyroxine Sodium (Synthroid -) 75 mcg PO DAILY@0700 [facility] Last Admin: 05/24/18 06:15 Dose: 75 mcg Methylprednisolone Sodium Succinate (Solu-Medrol -) 40 mg IVPUSH Q12H [facility] Montelukast Sodium (Singulair -) 10 mg PO HS [facility] Last Admin: 05/23/18 21:45 Dose: 10 mg Pantoprazole Sodium (Protonix -) 20 mg PO DAILY [facility] Last Admin: 05/23/18 10:12 Dose: 20 mg Potassium Chloride (K-Dur -) 10 meq PO BID [facility] Last Admin: 05/23/18 21:45 Dose: 10 meq Roflumilast (Daliresp -) 500 mcg PO DAILY [facility] Last Admin: 05/23/18 10:13 Dose: 500 mcg Rosuvastatin Calcium (Crestor -) 5 mg PO HS [facility] Last Admin: 05/23/18 21:45 Dose: 5 mg *Physical Exam Vital Signs Period Temp Pulse Resp BP Sys/Domínguez Pulse Ox Last 24 Hr 96.8 F-98.2 F 84-102 20-22 93-130/49-67 93-95 GENERAL: Awake, easily arousable to voice, oriented to self, not telling me location, month, or year HEAD: No signs of trauma, normocephalic, atraumatic EYES: PERRLA, EOMI ENT: Hearing grossly normal, nares patent, oropharynx clear without exudates. Moist mucosa LUNGS: on 4LNC (2LNC at home); moderate diffuse wheeze b/l HEART: Tachycardia with regular rhythm, normal S1 and S2, no murmurs appreciated , peripheral pulses normal and equal bilaterally ABDOMEN: Soft, nontender, normoactive bowel sounds. No guarding, no rebound EXTREMITIES : 2+ BLE edema to knee; RUE hand and forearm hematoma, Normal range of motion NEUROLOGICAL: Cranial nerves II through XII grossly intact. no focal sensorimotor deficits, finger to nose normal, gait deferred Ct head reviewed Medical Decision Making 57F w/ a history of COPD (2L NC at home), HTN, CAD, hypothyroidism who presents from [facility] for evaluation of increasing respiratory distress and associated confusion/lethargy. The patient was recently admitted for a COPD exacerbation. According to notes the family reported when the patient is having an exacerbation, it is typical for her to become confused. She was admitted and Pulmonary following closely. CT head completed and without acute changes. More confused this AM, if persists then would consider repeat CT head. May just be fatigued and sleepy this AM. Possibly underlying AMS, Toxic metabolic encephalopathy 2/2 respiratory distress. Continue optimization of COPD. Increased hydration, monitor BP, maintain normotensive range.
[2018-05-24] MEDS: ROFLUMILAST 500 MCG TABLET PO SCH (09:10)
[2018-05-24] MEDS: POTASSIUM CHLORIDE TABS 10 MEQ TABLET.ER (FP) PO SCH ×2 (09:10→21:36)
[2018-05-24] MEDS: ASPIRIN 81 MG CHEWABLE TABLETS PO SCH (09:10)
[2018-05-24] MEDS: FUROSEMIDE 20 MG TABLET (FP) PO SCH (09:10)
[2018-05-24] MEDS: ESCITALOPRAM OXALATE 10 MG TABLET (FP) PO SCH (09:11)
[2018-05-24] MEDS: PANTOPRAZOLE 20 MG TABLET (FP) PO SCH (09:11)
--- NOTE | 2018-05-24 10:43 | PN ---
Progress Note, Physician History of Present Illness: pulmonary confused,dyspneic,on nasal o2 - Current Medication List Current Medications: Active Medications Acetaminophen (Tylenol -) 650 mg PO Q6H PRN PRN Reason: PAIN 1-7 Last Admin: 05/22/18 22:12 Dose: 650 mg Albuterol Sulfate (Ventolin 0.083% Nebulizer Soln -) 1 amp NEB Q8H PRN PRN Reason: SHORT OF BREATH/WHEEZING Last Admin: 05/24/18 07:10 Dose: 1 amp Albuterol Sulfate (Ventolin Hfa Inhaler -) 1 puff IH Q6H PRN PRN Reason: ASTHMA Aspirin (Asa -) 81 mg PO DAILY [facility] Last Admin: 05/24/18 09:10 Dose: 81 mg Escitalopram Oxalate (Lexapro -) 10 mg PO DAILY [facility] Last Admin: 05/24/18 09:11 Dose: 10 mg Furosemide (Lasix -) 20 mg PO DAILY [facility] Last Admin: 05/24/18 09:10 Dose: 20 mg Heparin Sodium (Porcine) (Heparin -) 5,000 unit SQ BID [facility] Last Admin: 05/22/18 09:34 Dose: 5,000 unit Insulin Aspart (Novolog Vial Sliding Scale -) [address] [facility]; Protocol Last Admin: 05/24/18 06:14 Dose: 2 units Levothyroxine Sodium (Synthroid -) 75 mcg PO DAILY@0700 [facility] Last Admin: 05/24/18 06:15 Dose: 75 mcg Methylprednisolone Sodium Succinate (Solu-Medrol -) 40 mg IVPUSH Q12H [facility] Last Admin: 05/24/18 09:10 Dose: 40 mg Montelukast Sodium (Singulair -) 10 mg PO HS [facility] Last Admin: 05/23/18 21:45 Dose: 10 mg Pantoprazole Sodium (Protonix -) 20 mg PO DAILY [facility] Last Admin: 05/24/18 09:11 Dose: 20 mg Potassium Chloride (K-Dur -) 10 meq PO BID [facility] Last Admin: 05/24/18 09:10 Dose: 10 meq Roflumilast (Daliresp -) 500 mcg PO DAILY [facility] Last Admin: 05/24/18 09:10 Dose: 500 mcg Rosuvastatin Calcium (Crestor -) 5 mg PO HS [facility] Last Admin: 05/23/18 21:45 Dose: 5 mg - Objective Vital Signs: Vital Signs Temperature 98.2 F 05/24/18 05:35 Pulse Rate 99 H 05/24/18 05:35 Respiratory Rate 22 H 05/24/18 05:35 Blood Pressure 112/57 L 05/24/18 05:35 O2 Sat by Pulse Oximetry (%) 95 05/24/18 06:57 Constitutional: Yes: Well Nourished, Other (confused) Eyes: Yes: WNL HENT: Yes: WNL Neck: Yes: Supple Cardiovascular: Yes: Regular Rate and Rhythm, S1, S2 Respiratory: Yes: Diminished, Wheezes (scattered steve wheezes) Gastrointestinal: Yes: Normal Bowel Sounds, Soft Extremities: Yes: WNL Edema: No Labs: CBC, BMP 05/24/18 06:20 05/24/18 06:20 INR, PTT INR 0.97 (0.83-1.09) 05/19/18 16:15 Problem List - Problems (1) Altered mental status Code(s): R41.82 - ALTERED MENTAL STATUS, UNSPECIFIED Qualifiers: Altered mental status type: disorientation Qualified Code(s): R41.0 - Disorientation, unspecified (2) COPD exacerbation Code(s): J44.1 - CHRONIC OBSTRUCTIVE PULMONARY DISEASE W (ACUTE) EXACERBATION (3) Acute on chronic respiratory failure with hypoxia and hypercapnia Code(s): J96.21 - ACUTE AND CHRONIC RESPIRATORY FAILURE WITH HYPOXIA; J96.22 - ACUTE AND CHRONIC RESPIRATORY FAILURE WITH HYPERCAPNIA (4) CHF (congestive heart failure) Code(s): I50.9 - HEART FAILURE, UNSPECIFIED (5) COPD exacerbation Code(s): J44.1 - CHRONIC OBSTRUCTIVE PULMONARY DISEASE W (ACUTE) EXACERBATION (6) Diastolic dysfunction Code(s): I51.9 - HEART DISEASE, UNSPECIFIED (7) Sleep apnea Code(s): G47.30 - SLEEP APNEA, UNSPECIFIED Assessment/Plan IMP ACUTE ON CHRONIC HYPOXEMIC HYPERCAPNEIC RESPIRATORY FAILURE COPD O2 DEPENDENT ALTERED MENTAL STATUS CHF HYPOTHYROID NAVDEEP PLAN STEROID SAME DOSE INHALED BRONCHODILATORS O2 BIPAP AT NIGHT AND PRN F/U ABG F/U CHEST X-RAYS Problem List - Problems (1) Altered mental status Code(s): R41.82 - ALTERED MENTAL STATUS, UNSPECIFIED Qualifiers: Altered mental status type: disorientation Qualified Code(s): R41.0 - Disorientation, unspecified (2) COPD exacerbation Code(s): J44.1 - CHRONIC OBSTRUCTIVE PULMONARY DISEASE W (ACUTE) EXACERBATION (3) Acute on chronic respiratory failure with hypoxia and hypercapnia Code(s): J96.21 - ACUTE AND CHRONIC RESPIRATORY FAILURE WITH HYPOXIA; J96.22 - ACUTE AND CHRONIC RESPIRATORY FAILURE WITH HYPERCAPNIA (4) CHF (congestive heart failure) Code(s): I50.9 - HEART FAILURE, UNSPECIFIED (5) COPD exacerbation Code(s): J44.1 - CHRONIC OBSTRUCTIVE PULMONARY DISEASE W (ACUTE) EXACERBATION (6) Diastolic dysfunction Code(s): I51.9 - HEART DISEASE, UNSPECIFIED (7) Sleep apnea Code(s): G47.30 - SLEEP APNEA, UNSPECIFIED
[2018-05-24 10:46] LABS: ANISOCYTOSIS 2+; MACROCYTOSIS 0; PLATELET ESTIMATE DECREASED
[2018-05-24 11:14] LABS: ARTERIAL BLD GAS O2 SATURATION 95.1 % (90-98.9); ARTERIAL BLOOD GAS pH 7.37 (7.35-7.45)
[2018-05-24 11:20] LABS: ANION GAP 0 MMOL/L (8-16); CO2 58 mmol/L (21-32)
[2018-05-24 12:04] LABS: ALLENS TEST POSITIVE
[2018-05-24 12:06] LABS: ARTERIAL BLOOD GAS BASE EXCESS 27.5 meq/l (-2-2)
[2018-05-24] MEDS ORDERED: SODIUM CHLORIDE 1,000 ML IV SCH (18:45)
[2018-05-24 20:19] LABS: BASO % 0.3 % (0-2.0); HEMATOCRIT 28.8 % (32.4-45.2); HEMOGLOBIN 9.6 GM/dL (10.7-15.3); LYMPH % 0.4 % (8-40); MCHC 33.3 g/dl (32.0-36.0); MEAN CELL VOLUME 93.2 fl (80-96); MEAN PLT VOLUME 9.9 fl (7.5-11.1); MONO % 1.3 % (3.8-10.2); PLATELET COUNT 121 K/MM3 (134-434); RBC 3.09 M/mm3 (3.60-5.2); RDW 13.2 % (11.6-15.6); WHITE BLOOD COUNT 19.8 K/mm3 (4.0-10.0)
[2018-05-24 21:17] LABS: ANION GAP 13 MMOL/L (8-16); BLOOD UREA NITROGEN 51 mg/dL (7-18); CALCIUM 8.7 mg/dL (8.5-10.1); CHLORIDE 80 mmol/L (98-107); CO2 > 45 mmol/L (21-32); CREATININE 0.9 mg/dL (0.55-1.3); GLUCOSE,RANDOM 185 mg/dL (74-106); POTASSIUM 4.4 mmol/L (3.5-5.1); SODIUM 138 mmol/L (136-145)
[2018-05-24] MEDS: ROSUVASTATIN CA 5 MG TABLET (FP) PO SCH (21:36)
[2018-05-24] MEDS: MONTELUKAST NA 10 MG TABLET PO SCH (21:37)
[2018-05-24] MEDS: HEPARIN NA (PORCINE) 5,000 UNITS/ML 1ML VIAL SQ SCH (21:37)
[2018-05-24 21:50] LABS: ANISOCYTOSIS 1+; MACROCYTOSIS 1+
[2018-05-24 21:51] LABS: OVALOCYTE 1+
[2018-05-24 21:52] LABS: PLATELET ESTIMATE SLT DECREASE
[2018-05-25] MEDS: methylPREDNISolone NA SUCC 40 MG/1 ML VIAL IVPUSH SCH ×3 (01:19→17:12)
[2018-05-25] MEDS: LEVOTHYROXINE NA 75 MCG TABLET (FP) PO SCH (06:44)
[2018-05-25] MEDS: INSULIN SLIDING SCALE (NOVOLOG) 1 VIAL SQ SCH ×4 (06:45→23:29)
[2018-05-25 06:46] LABS: BASO % 0.3 % (0-2.0); HEMATOCRIT 30.1 % (32.4-45.2); HEMOGLOBIN 9.4 GM/dL (10.7-15.3); LYMPH % 0.4 % (8-40); MCH 29.7 pg (25.7-33.7); MCHC 31.4 g/dl (32.0-36.0); MEAN CELL VOLUME 94.5 fl (80-96); MEAN PLT VOLUME 9.5 fl (7.5-11.1); MONO % 1.8 % (3.8-10.2); NEUT % 97.5 % (42.8-82.8); PLATELET COUNT 110 K/MM3 (134-434); RBC 3.18 M/mm3 (3.60-5.2); RDW 13.6 % (11.6-15.6); WHITE BLOOD COUNT 20.6 K/mm3 (4.0-10.0)
[2018-05-25 07:39] LABS: N-TERMINAL BNP 190.8 pg/ml (5-125)
[2018-05-25 08:13] LABS: ALBUMIN 2.2 g/dl (3.4-5.0); ALK PHOS 104 U/L (45-117); BILIRUBIN,TOTAL 0.9 mg/dL (0.2-1); BLOOD UREA NITROGEN 38 mg/dL (7-18); CALCIUM 8.7 mg/dL (8.5-10.1); CHLORIDE 82 mmol/L (98-107); CREATININE 0.6 mg/dL (0.55-1.3); GLUCOSE,RANDOM 213 mg/dL (74-106); POTASSIUM 4.4 mmol/L (3.5-5.1); SGOT/AST 36 U/L (15-37); SGPT/ALT 37 U/L (13-61); SODIUM 141 mmol/L (136-145); TOT PROT 4.7 g/dl (6.4-8.2)
[2018-05-25] MEDS: ALBUTEROL SO4 0.083% IH SOL 2.5 MG/3 ML VIAL.NEB. NEB PRN ×3 (08:38→23:34)
[2018-05-25] MEDS ORDERED: FUROSEMIDE 40 MG/4 ML INJECTABLE VIAL IVPUSH ONE (08:41)
--- NOTE | 2018-05-25 08:42 | PN ---
Progress Note, Physician Chief Complaint: cough; on/off confused; increased WBC on IV sgteroids no fever; will recall ID bruises arms, abdomen; R hand hematoma smaller heparin on hold on O2 NC currently; d/w pt and staff need to be on bipap as ordered per pulm CXR noted; chest CT ordered x2 not done yet; to be done no IVC d/w pt and staff - Current Medication List Current Medications: Active Medications Acetaminophen (Tylenol -) 650 mg PO Q6H PRN PRN Reason: PAIN 1-7 Last Admin: 05/22/18 22:12 Dose: 650 mg Albuterol Sulfate (Ventolin 0.083% Nebulizer Soln -) 1 amp NEB Q8H PRN PRN Reason: SHORT OF BREATH/WHEEZING Last Admin: 05/25/18 08:38 Dose: 1 amp Albuterol Sulfate (Ventolin Hfa Inhaler -) 1 puff IH Q6H PRN PRN Reason: ASTHMA Aspirin (Asa -) 81 mg PO DAILY [facility] Last Admin: 05/24/18 09:10 Dose: 81 mg Escitalopram Oxalate (Lexapro -) 10 mg PO DAILY [facility] Last Admin: 05/24/18 09:11 Dose: 10 mg Heparin Sodium (Porcine) (Heparin -) 5,000 unit SQ BID [facility] Last Admin: 05/24/18 21:37 Dose: 5,000 unit Insulin Aspart (Novolog Vial Sliding Scale -) 1 vial SQ ACHS [facility]; Protocol Last Admin: 05/25/18 06:45 Dose: 4 units Levothyroxine Sodium (Synthroid -) 75 mcg PO DAILY@0700 [facility] Last Admin: 05/25/18 06:44 Dose: 75 mcg Methylprednisolone Sodium Succinate (Solu-Medrol -) 40 mg IVPUSH Q8H-IV [facility] Last Admin: 05/25/18 01:19 Dose: 40 mg Montelukast Sodium (Singulair -) 10 mg PO HS [facility] Last Admin: 05/24/18 21:37 Dose: 10 mg Pantoprazole Sodium (Protonix -) 20 mg PO DAILY [facility] Last Admin: 05/24/18 09:11 Dose: 20 mg Potassium Chloride (K-Dur -) 10 meq PO BID [facility] Last Admin: 05/24/18 21:36 Dose: 10 meq Roflumilast (Daliresp -) 500 mcg PO DAILY [facility] Last Admin: 05/24/18 09:10 Dose: 500 mcg Rosuvastatin Calcium (Crestor -) 5 mg PO HS [facility] Last Admin: 05/24/18 21:36 Dose: 5 mg - Objective Vital Signs: Vital Signs Temperature 99.5 F 05/25/18 06:00 Pulse Rate 118 H 05/25/18 06:00 Respiratory Rate 24 H 05/25/18 06:00 Blood Pressure 136/79 05/25/18 06:00 O2 Sat by Pulse Oximetry (%) 94 L 05/25/18 00:36 Constitutional: Yes: No Distress Eyes: Yes: Conjunctiva Clear HENT: Yes: Atraumatic Neck: Yes: Supple Cardiovascular: Yes: Regular Rate and Rhythm Respiratory: Yes: Rales Gastrointestinal: Yes: Soft. No: Distention Genitourinary: No: Hematuria Musculoskeletal: No: Joint Stiffness, Joint Swelling Extremities: Yes: Other (R hand hematoma, smaller). No: Cold, Cool Integumentary: No: Pressure Ulcer, Rash Neurological: Yes: WNL, Alert ...Motor Strength: WNL Psychiatric: Yes: WNL, Alert. No: Agitated Labs: CBC, BMP 05/25/18 05:30 05/25/18 05:30 INR, PTT INR 0.97 (0.83-1.09) 05/19/18 16:15 - ....Imaging Chest X-ray: Report Reviewed Other: Report Reviewed Assessment/Plan The patient is a 57F w/ a history of severe advanced COPD O2 dependant and frequent Bipap use, HTN, CAD, hypothyroidism admitted with acute on chronic COPD exacerbation. pulmonary and neurology f/u ID f/u iv steroids, nebs, O2, Bipap; gastric pfx while on steroids; check labs, chest CT BGM and GLU control while on steroids RUE arm, abdomen and under breasts bruises; R hand hematoma seen by ortho hand surgery; OT/PT; sq heparin held; hypothyr - was on synthroid 100 mcg / day but recent TSH low, synthroid was held x 1 week and restarted at 75 mcg/day low PLT anemia: heme eval falls decubs DVT PFX prognosis guarded d/w pt and staff
[2018-05-25 08:44] LABS: ANION GAP 1 MMOL/L (8-16); CO2 58 mmol/L (21-32)
--- NOTE | 2018-05-25 08:56 | PN ---
Progress Note (short form) - Note Progress Note: Neurology History of Present Illness 57F w/ a history of COPD (2L NC at home), HTN, CAD, hypothyroidism who presents from [facility] for evaluation of increasing respiratory distress and associated confusion/lethargy. The patient was recently admitted for a COPD exacerbation. According to notes the family reported when the patient is having an exacerbation, it is typical for her to become confused. She was admitted and Pulmonary following closely. CT head completed and without acute changes. Ortho note reviewed, R hand echymosis, ultrasound completed and reviewed. During my evaluation, this AM having respiratory difficulty but on positive airway pressure with facemask firmly in place. Is more alert, aware, interactive. Knows she's at [facility]. Allergies/Adverse Reactions: Allergies Allergy/AdvReac Type Severity Reaction Status Date / Time Penicillins Allergy Severe Difficulty Verified 05/19/18 16:04 Breathing Active Medications Acetaminophen (Tylenol -) 650 mg PO Q6H PRN PRN Reason: PAIN 1-7 Last Admin: 05/22/18 22:12 Dose: 650 mg Albuterol Sulfate (Ventolin 0.083% Nebulizer Soln -) 1 amp NEB Q8H PRN PRN Reason: SHORT OF BREATH/WHEEZING Last Admin: 05/25/18 08:38 Dose: 1 amp Albuterol Sulfate (Ventolin Hfa Inhaler -) 1 puff IH Q6H PRN PRN Reason: ASTHMA Aspirin (Asa -) 81 mg PO DAILY [facility] Last Admin: 05/24/18 09:10 Dose: 81 mg Escitalopram Oxalate (Lexapro -) 10 mg PO DAILY [facility] Last Admin: 05/24/18 09:11 Dose: 10 mg Furosemide (Lasix Injection -) 40 mg IVPUSH ONCE ONE Stop: 05/25/18 08:42 Heparin Sodium (Porcine) (Heparin -) 5,000 unit SQ BID [facility] Last Admin: 05/24/18 21:37 Dose: 5,000 unit Insulin Aspart (Novolog Vial Sliding Scale -) 1 vial SQ ACHS [facility]; Protocol Last Admin: 05/25/18 06:45 Dose: 4 units Levothyroxine Sodium (Synthroid -) 75 mcg PO DAILY@0700 [facility] Last Admin: 05/25/18 06:44 Dose: 75 mcg Methylprednisolone Sodium Succinate (Solu-Medrol -) 40 mg IVPUSH Q8H-IV [facility] Last Admin: 05/25/18 01:19 Dose: 40 mg Montelukast Sodium (Singulair -) 10 mg PO HS [facility] Last Admin: 05/24/18 21:37 Dose: 10 mg Pantoprazole Sodium (Protonix -) 20 mg PO DAILY [facility] Last Admin: 05/24/18 09:11 Dose: 20 mg Potassium Chloride (K-Dur -) 10 meq PO BID [facility] Last Admin: 05/24/18 21:36 Dose: 10 meq Roflumilast (Daliresp -) 500 mcg PO DAILY [facility] Last Admin: 05/24/18 09:10 Dose: 500 mcg Rosuvastatin Calcium (Crestor -) 5 mg PO HS [facility] Last Admin: 05/24/18 21:36 Dose: 5 mg *Physical Exam Vital Signs Period Temp Pulse Resp BP Sys/Domínguez Pulse Ox Last 24 Hr 97.9 F-99.5 F 97-118 20-25 103-136/56-81 94-96 GENERAL: Awake, easily arousable to voice, oriented to self, not telling me location, month, or year HEAD: No signs of trauma, normocephalic, atraumatic EYES: PERRLA, EOMI ENT: Hearing grossly normal, nares patent, oropharynx clear without exudates. Moist mucosa LUNGS: on 4LNC (2LNC at home); moderate diffuse wheeze b/l HEART: Tachycardia with regular rhythm, normal S1 and S2, no murmurs appreciated , peripheral pulses normal and equal bilaterally ABDOMEN: Soft, nontender, normoactive bowel sounds. No guarding, no rebound EXTREMITIES : 2+ BLE edema to knee; RUE hand and forearm hematoma, Normal range of motion NEUROLOGICAL: Cranial nerves II through XII grossly intact. no focal sensorimotor deficits, finger to nose normal, gait deferred Ct head reviewed Medical Decision Making 57F w/ a history of COPD (2L NC at home), HTN, CAD, hypothyroidism who presents from [facility] for evaluation of increasing respiratory distress and associated confusion/lethargy. The patient was recently admitted for a COPD exacerbation. According to notes the family reported when the patient is having an exacerbation, it is typical for her to become confused. She was admitted and Pulmonary following closely. CT head completed and without acute changes. More alert and oriented today. Likely AMS, Toxic metabolic encephalopathy 2/2 respiratory distress, still getting respiratory treatment and optimization. Continue optimization of COPD. Increased hydration, monitor BP, maintain normotensive range.
[2018-05-25] MEDS ORDERED: PT OWN MED DRAWER 7, Y5N ONE ×2 (09:18→16:06)
[2018-05-25] MEDS: HEPARIN NA (PORCINE) 5,000 UNITS/ML 1ML VIAL SQ SCH (09:31)
[2018-05-25] MEDS: PANTOPRAZOLE 20 MG TABLET (FP) PO SCH (09:36)
[2018-05-25] MEDS: ASPIRIN 81 MG CHEWABLE TABLETS PO SCH (09:36)
[2018-05-25] MEDS: ESCITALOPRAM OXALATE 10 MG TABLET (FP) PO SCH (09:36)
[2018-05-25] MEDS: POTASSIUM CHLORIDE TABS 10 MEQ TABLET.ER (FP) PO SCH ×2 (09:36→23:23)
[2018-05-25] MEDS: ROFLUMILAST 500 MCG TABLET PO SCH (09:37)
[2018-05-25 10:51] LABS: ANISOCYTOSIS 1+; MACROCYTOSIS 1+; PLATELET ESTIMATE DECREASED
--- NOTE | 2018-05-25 10:53 | PN ---
Progress Note (short form) - Note Progress Note: Chief Complaint: Events noted, notes reviewed, dyspnea persists reports cough, denies any chest pain History of Present Illness: Seen and examined on telemetry. Full consult dictated - Current Medication List Current Medications Acetaminophen (Tylenol -) 650 mg PO Q6H PRN PRN Reason: PAIN 1-7 Last Admin: 05/22/18 22:12 Dose: 650 mg Albuterol Sulfate (Ventolin 0.083% Nebulizer Soln -) 1 amp NEB Q8H PRN PRN Reason: SHORT OF BREATH/WHEEZING Last Admin: 05/25/18 08:38 Dose: 1 amp Albuterol Sulfate (Ventolin Hfa Inhaler -) 1 puff IH Q6H PRN PRN Reason: ASTHMA Aspirin (Asa -) 81 mg PO DAILY [facility] Last Admin: 05/25/18 09:36 Dose: 81 mg Escitalopram Oxalate (Lexapro -) 10 mg PO DAILY [facility] Last Admin: 05/25/18 09:36 Dose: 10 mg Heparin Sodium (Porcine) (Heparin -) 5,000 unit SQ BID [facility] Last Admin: 05/25/18 09:31 Dose: Not Given Insulin Aspart (Novolog Vial Sliding Scale -) 1 vial SQ [facility]; Protocol Last Admin: 05/25/18 06:45 Dose: 4 units Levothyroxine Sodium (Synthroid -) 75 mcg PO DAILY@0700 [facility] Last Admin: 05/25/18 06:44 Dose: 75 mcg Methylprednisolone Sodium Succinate (Solu-Medrol -) 40 mg IVPUSH Q8H-IV [facility] Last Admin: 05/25/18 09:35 Dose: 40 mg Montelukast Sodium (Singulair -) 10 mg PO [facility] Last Admin: 05/24/18 21:37 Dose: 10 mg Pantoprazole Sodium (Protonix -) 20 mg PO DAILY [facility] Last Admin: 05/25/18 09:36 Dose: 20 mg Potassium Chloride (K-Dur -) 10 meq PO BID [facility] Last Admin: 05/25/18 09:36 Dose: 10 meq Roflumilast (Daliresp -) 500 mcg PO DAILY [facility] Last Admin: 05/25/18 09:37 Dose: 500 mcg Rosuvastatin Calcium (Crestor -) 5 mg PO HS [facility] Last Admin: 05/24/18 21:36 Dose: 5 mg Review of Systems Constitutional: denies: Chills Cardiovascular: As noted above Respiratory: reports: Cough Gastrointestinal: denies: Nausea, Vomiting, Diarrhea, Constipation or Abdominal Pain Musculoskeletal: No Symptoms Reported other than Right Hand Swelling/Echymosis Neurological: denies: Dizziness or Headache - Objective Vital Signs: Last Vital Signs Temp Pulse Resp BP Pulse Ox 98.8 F 110 H 24 H 132/68 94 L 05/25/18 10:00 05/25/18 10:00 05/25/18 10:00 05/25/18 10:00 05/25/18 00:36 Intake & Output 05/22/18 05/23/18 05/24/18 05/25/18 23:59 23:59 23:59 23:59 Intake Total 540 460 220 780 Output Total 300 Balance 540 160 220 780 Weight 145 lb 4.8 oz Constitutional: Mild Distress, Anxious Neck: Supple Negative JVD No Bruit Respiratory: Distant Breath Sounds Bilaterally Scattered Rhonchi Cardiovascular: S1 S2 Regular Rate and Rhythm Gastrointestinal: Soft Benign Normal Bowel Sounds Ext: No Edema Labs: ABG Results ABG pH 7.37 (7.35-7.45) 05/24/18 11:12 ABG pCO2 at Pt Temp 101.0 mmHg (35-45) H* 05/24/18 11:12 ABG pO2 at Pt Temp 73.0 mmHg (80-100) L 05/24/18 11:12 ABG HCO3 56.9 meq/L (22-26) H* 05/24/18 11:12 ABG O2 Sat (Measured) 95.1 % (90-98.9) 05/24/18 11:12 ABG O2 Content 12.3 % vol (15-22) L 05/24/18 11:12 ABG Base Excess 27.5 meq/l (-2-2) H* 05/24/18 11:12 Troponin, BNP 05/24/18 05/25/18 19:35 05:30 Troponin I < 0.02 0.05 B-Natriuretic Peptide 190.8 H CBC, BMP 05/25/18 05:30 05/25/18 05:30 Hepatic Panel Total Bilirubin 0.9 mg/dL (0.2-1) 05/25/18 05:30 AST 36 U/L (15-37) 05/25/18 05:30 ALT 37 U/L (13-61) 05/25/18 05:30 Alkaline Phosphatase 104 U/L (45-117) 05/25/18 05:30 Albumin 2.2 g/dl (3.4-5.0) L 05/25/18 05:30 ASSESSMENT/PLAN: ASSESSMENT: 1. Acute on chronic hypoxic and hypercapneic respiratory failure related to acute exacerbation of 2. Chronic obstructive pulmonary disease 3. Probable pneumonia to be considered 4. Altered mental status, probably toxic metabolic enchelopathy 5. CAD coronary artery calcification angina pectoris 6. Diastolic LV dysfunction with chronic class I NYHA classification LV failure , clinically compensated/euvolemic 7. HTN/HCVD 8. Hypercholesterolemia/mixed dyslipidemia 9. Hypothyroidism 10. Right hand hematoma 11. Pre-renal azotemia 12. Anemia and thrombocytopenia PLAN: 1. Resume ARBS unless contraindicated, hemodynamics permitting 2. No indications for diuretic therapy at this point recommend prn utilization 3. Continue ASA 4. Continue Crestor 5. Continue bronchodilators and steroids as per the pulmonary team 6. Antibiotics as per the primary team Cary Mancini M.D.
--- NOTE | 2018-05-25 11:26 | PN ---
Progress Note, Physician History of Present Illness: pulmonary awake,less confused on nasal o2,mildly dyspneic - Current Medication List Current Medications: Active Medications Acetaminophen (Tylenol -) 650 mg PO Q6H PRN PRN Reason: PAIN 1-7 Last Admin: 05/22/18 22:12 Dose: 650 mg Albuterol Sulfate (Ventolin 0.083% Nebulizer Soln -) 1 amp NEB Q8H PRN PRN Reason: SHORT OF BREATH/WHEEZING Last Admin: 05/25/18 08:38 Dose: 1 amp Albuterol Sulfate (Ventolin Hfa Inhaler -) 1 puff IH Q6H PRN PRN Reason: ASTHMA Aspirin (Asa -) 81 mg PO DAILY [facility] Last Admin: 05/25/18 09:36 Dose: 81 mg Escitalopram Oxalate (Lexapro -) 10 mg PO DAILY [facility] Last Admin: 05/25/18 09:36 Dose: 10 mg Heparin Sodium (Porcine) (Heparin -) 5,000 unit SQ BID [facility] Last Admin: 05/25/18 09:31 Dose: Not Given Insulin Aspart (Novolog Vial Sliding Scale -) 1 vial SQ [facility]; Protocol Last Admin: 05/25/18 06:45 Dose: 4 units Levothyroxine Sodium (Synthroid -) 75 mcg PO DAILY@0700 [facility] Last Admin: 05/25/18 06:44 Dose: 75 mcg Methylprednisolone Sodium Succinate (Solu-Medrol -) 40 mg IVPUSH Q8H-IV [facility] Last Admin: 05/25/18 09:35 Dose: 40 mg Montelukast Sodium (Singulair -) 10 mg PO HS [facility] Last Admin: 05/24/18 21:37 Dose: 10 mg Pantoprazole Sodium (Protonix -) 20 mg PO DAILY [facility] Last Admin: 05/25/18 09:36 Dose: 20 mg Potassium Chloride (K-Dur -) 10 meq PO BID [facility] Last Admin: 05/25/18 09:36 Dose: 10 meq Roflumilast (Daliresp -) 500 mcg PO DAILY [facility] Last Admin: 05/25/18 09:37 Dose: 500 mcg Rosuvastatin Calcium (Crestor -) 5 mg PO HS [facility] Last Admin: 05/24/18 21:36 Dose: 5 mg - Objective Vital Signs: Vital Signs Temperature 98.8 F 05/25/18 10:00 Pulse Rate 110 H 05/25/18 10:00 Respiratory Rate 24 H 05/25/18 10:00 Blood Pressure 132/68 05/25/18 10:00 O2 Sat by Pulse Oximetry (%) 94 L 05/25/18 00:36 Constitutional: Yes: No Distress, Calm Eyes: Yes: WNL HENT: Yes: WNL Neck: Yes: WNL Cardiovascular: Yes: Regular Rate and Rhythm, S1, S2 Respiratory: Yes: Diminished, Wheezes (few scattered wheezes) Gastrointestinal: Yes: Normal Bowel Sounds, Soft Extremities: Yes: Other (lefr hand and forearm eccymotic) Edema: No Labs: CBC, BMP 05/25/18 05:30 05/25/18 05:30 INR, PTT INR 0.97 (0.83-1.09) 05/19/18 16:15 - ....Imaging Chest X-ray: Report Reviewed, Image Reviewed (NEW RLLL INFILTRATE) Problem List - Problems (1) Altered mental status Code(s): R41.82 - ALTERED MENTAL STATUS, UNSPECIFIED Qualifiers: Altered mental status type: disorientation Qualified Code(s): R41.0 - Disorientation, unspecified (2) COPD exacerbation Code(s): J44.1 - CHRONIC OBSTRUCTIVE PULMONARY DISEASE W (ACUTE) EXACERBATION (3) Acute on chronic respiratory failure with hypoxia and hypercapnia Code(s): J96.21 - ACUTE AND CHRONIC RESPIRATORY FAILURE WITH HYPOXIA; J96.22 - ACUTE AND CHRONIC RESPIRATORY FAILURE WITH HYPERCAPNIA (4) CHF (congestive heart failure) Code(s): I50.9 - HEART FAILURE, UNSPECIFIED (5) COPD exacerbation Code(s): J44.1 - CHRONIC OBSTRUCTIVE PULMONARY DISEASE W (ACUTE) EXACERBATION (6) Diastolic dysfunction Code(s): I51.9 - HEART DISEASE, UNSPECIFIED (7) Sleep apnea Code(s): G47.30 - SLEEP APNEA, UNSPECIFIED Assessment/Plan IMP ACUTE ON CHRONIC HYPOXEMIC HYPERCAPNEIC RESPIRATORY FAILURE COPD O2 DEPENDENT ALTERED MENTAL STATUS CHF HYPOTHYROID NAVDEEP PLAN STEROID TAPER ABX INHALED BRONCHODILATORS O2 BIPAP AT NIGHT AND PRN F/U ABG ID EVALUATION F/U CHEST X-RAYS Problem List - Problems (1) Altered mental status Code(s): R41.82 - ALTERED MENTAL STATUS, UNSPECIFIED Qualifiers: Altered mental status type: disorientation Qualified Code(s): R41.0 - Disorientation, unspecified (2) COPD exacerbation Code(s): J44.1 - CHRONIC OBSTRUCTIVE PULMONARY DISEASE W (ACUTE) EXACERBATION (3) Acute on chronic respiratory failure with hypoxia and hypercapnia Code(s): J96.21 - ACUTE AND CHRONIC RESPIRATORY FAILURE WITH HYPOXIA; J96.22 - ACUTE AND CHRONIC RESPIRATORY FAILURE WITH HYPERCAPNIA (4) CHF (congestive heart failure) Code(s): I50.9 - HEART FAILURE, UNSPECIFIED (5) COPD exacerbation Code(s): J44.1 - CHRONIC OBSTRUCTIVE PULMONARY DISEASE W (ACUTE) EXACERBATION (6) Diastolic dysfunction Code(s): I51.9 - HEART DISEASE, UNSPECIFIED (7) Sleep apnea Code(s): G47.30 - SLEEP APNEA, UNSPECIFIED
--- NOTE | 2018-05-25 11:52 | CONS ---
DATE OF CONSULTATION: 05/25/2018 REQUESTING PHYSICIAN: Dr. Taylor CHIEF COMPLAINT: Dyspnea, cardiovascular evaluation. HISTORY: Patient known to our service with known history of coronary artery disease, coronary artery calcification on CT scan of the chest with no clinical angina pectoris, diastolic left ventricular dysfunction with chronic class 1 [place] [employer] classification left ventricular failure, hypertensive cardiovascular disease, hypercholesterolemia, advanced chronic obstructive pulmonary disease, multiple hospitalizations with acute on chronic respiratory failure on home oxygen therapy who was recently discharged from [facility] to present with progressive dyspnea and altered mental status and was noted to have acute on chronic respiratory failure related to hypercapnia. The patient in addition recently developed right hand hematoma after probable blood draw. Unclear if IV or after an ABG. The patient currently is dyspneic and restless. Denies any chest discomfort. Denies orthopnea and paroxysmal or nocturnal dyspnea. Denies any peripheral edema. The patient denies any palpitations, dizziness, lightheadedness, or syncope. The patient reports extreme fatigue and tiredness. PAST MEDICAL HISTORY: Coronary artery disease, coronary artery calcification on CT scan of the chest with no clinical angina pectoris, diastolic left ventricular dysfunction with chronic class 1 [place] [employer] classification left ventricular failure, hypertensive cardiovascular disease, hypercholesterolemia, mixed dyslipidemia, hypothyroidism, advanced chronic obstructive pulmonary disease with chronic respiratory failure on home oxygen therapy, chronic anemia. SOCIAL HISTORY: Prior history of tobacco abuse. FAMILY HISTORY: Positive coronary artery disease. ALLERGIES: PENICILLIN. MEDICAL THERAPY: Currently includes Tylenol 650 mg every 6 hours, Ventolin nebulizer, Ecotrin 81 mg once a day, Lexapro 10 mg once a day, subcutaneous heparin 5000 units twice a day, insulin coverage, levothyroxine 75 mcg once a day, Solu-Medrol 40 mg every 8 hours, Singulair 10 mg once a day, Protonix 20 mg once a day, pantoprazole 20 mg once a day, potassium 10 mEq twice a day, Daliresp 500 mcg once a day, Crestor 500 mg once a day. REVIEW OF SYSTEMS: Head and Neck: Denies headache, photophobia, blurring of vision. Respiratory: Cough nonproductive of sputum. Cardiovascular: As noted above. Gastrointestinal: No nausea, vomiting, diarrhea, abdominal discomfort. Genitourinary: No symptoms reported. Musculoskeletal: Right hand swelling, ecchymosis. PHYSICAL EXAMINATION: Vital Signs: Blood pressure 133/62 mmHg, pulse rate is 110 beats per minute regular. Head and Neck: Pupils equal and reactive to light and accommodation. Extraocular muscles are intact. Anicteric sclerae. Negative JVD. No bruits appreciated. Chest: Bilateral scattered rhonchi. Diminished breath sounds at the bases. Cardiovascular: S1, S2. Regularly. Tachycardic. No murmurs appreciated. Abdomen: Soft, benign. Normoactive bowel sounds. Extremities: Negative edema. Have 1+ distal pulses. No calf tenderness. DIAGNOSTIC DATA: Electrocardiogram reveals sinus rhythm with baseline artifact, poor R wave progression. CBC reveals white cell count of 20.6, hemoglobin 9.4, platelet count 110. Basic metabolic profile reveals a sodium 141, potassium 4.4, BUN 38, creatinine 0.6, bicarbonate 58. Brain natriuretic peptide 190.8. CPK and troponin were noted. LFTs were noted. ASSESSMENT: 1. Acute on chronic hypoxic hypercapnic respiratory failure related to acute exacerbation of number 2. 2. Chronic obstructive pulmonary disease. 3. Probable pneumonia to be considered in the differential diagnosis. 4. Altered mental status probably toxic metabolic encephalopathy. 5. Coronary artery disease. Coronary artery calcification angina pectoris. 6. Diastolic left ventricular dysfunction with chronic class 1 [place] [employer] classification left ventricular failure clinically compensated/euvolemic. 7. Hypertension. 8. Hypercholesterolemia, mixed dyslipidemia. 9. Hyperthyroidism. 10. Right hand hematoma. 11. Prerenal azotemia. 12. Anemia with thrombocytopenia. RECOMMENDATION: 1. Resumption of angiotensin receptor blockers unless contraindicated hemodynamics permitting. 2. No indication for diuretic therapy at this point. Recommend p.r.n. utilization. 3. Continuation of aspirin. 4. Continuation of Crestor. 5. Continuation of bronchodilators and steroid as per the pulmonary team. 6. Antibiotics as per the primary team. Thank you for the kind referral. PEPITO SÁNCHEZ M.D. PAT/[id number]
--- NOTE | 2018-05-25 16:41 | PN ---
Progress Note (short form) - Note Progress Note: Pt seenand examined. Her right hand has a resolving hematoma. She states it is much improved, less swelling, better ROM without pain. NTD from an orthopedic POV. Rec to keep elevated, and do ROM exercises.
--- NOTE | 2018-05-25 18:03 | PN ---
Progress Note (short form) - Note Progress Note: chart reviewed continues to have sob congested cough no hemoptysis nonproductive cough pen allergy- gets welts Vital Signs Period Temp Pulse Resp BP Sys/Domínguez Pulse Ox Last 24 Hr 97.9 F-99.5 F 102-118 24-25 128-136/68-81 94-96 cor-rrr lungs scattered rhonchi abd soft,nt ext +multiple ecchymoses cxray- ?RLL infiltrate CBC, BMP 05/25/18 05:30 05/25/18 05:30 Current Medications Acetaminophen (Tylenol -) 650 mg PO Q6H PRN PRN Reason: PAIN 1-7 Last Admin: 05/22/18 22:12 Dose: 650 mg Albuterol Sulfate (Ventolin 0.083% Nebulizer Soln -) 1 amp NEB Q8H PRN PRN Reason: SHORT OF BREATH/WHEEZING Last Admin: 05/25/18 12:10 Dose: 1 amp Albuterol Sulfate (Ventolin Hfa Inhaler -) 1 puff IH Q6H PRN PRN Reason: ASTHMA Aspirin (Asa -) 81 mg PO DAILY [facility] Last Admin: 05/25/18 09:36 Dose: 81 mg Escitalopram Oxalate (Lexapro -) 10 mg PO DAILY [facility] Last Admin: 05/25/18 09:36 Dose: 10 mg Heparin Sodium (Porcine) (Heparin -) 5,000 unit SQ BID [facility] Last Admin: 05/25/18 09:31 Dose: Not Given Insulin Aspart (Novolog Vial Sliding Scale -) 1 vial SQ ACHS [facility]; Protocol Last Admin: 05/25/18 17:12 Dose: 2 units Levothyroxine Sodium (Synthroid -) 75 mcg PO DAILY@0700 [facility] Last Admin: 05/25/18 06:44 Dose: 75 mcg Methylprednisolone Sodium Succinate (Solu-Medrol -) 40 mg IVPUSH Q8H-IV [facility] Last Admin: 05/25/18 17:12 Dose: 40 mg Montelukast Sodium (Singulair -) 10 mg PO HS [facility] Last Admin: 05/24/18 21:37 Dose: 10 mg Pantoprazole Sodium (Protonix -) 20 mg PO DAILY [facility] Last Admin: 05/25/18 09:36 Dose: 20 mg Potassium Chloride (K-Dur -) 10 meq PO BID [facility] Last Admin: 05/25/18 09:36 Dose: 10 meq Roflumilast (Daliresp -) 500 mcg PO DAILY [facility] Last Admin: 05/25/18 09:37 Dose: 500 mcg Rosuvastatin Calcium (Crestor -) 5 mg PO HS [facility] Last Admin: 05/24/18 21:36 Dose: 5 mg a/p RLL pneumonia copd exacerbation pen allergy start levaquin legionella urinary antigen sputum culture
--- NOTE | 2018-05-25 18:38 | CONSULT ---
Consultation: REQUESTING PROVIDER: Dr. Taylor CONSULT REQUEST FOR HEMATOLOGY/ONCOLOGY: We have been asked to medically evaluate this patient for Anemia and Thrombocytopenia. HISTORY OF PRESENT ILLNESS: Patient is a 57 year old female with a PMHx of end stage COPD (on home 02), HTN , HLD, CAD, Diastolic LV dysfunction, hypothyroidism who was BIBEMS from [facility] after increasing respiratory effort and distress associated with AMS and lethargy. Patient had several admissions for COPD exacerbation and was recently discharged from the hospital to SNF for pulmonary rehab, completed last week. Patient reports she was experiencing worsening shortness of breath associated with white phlegm. According to patients family, she's had several admissions for COPD exacerbation due to similar symptoms. Otherwise, patient denies fever, chills, nausea, vomiting, abdominal pain, chest pain, dizziness, dysuria, hematuria, melena, hematochezia Last Mammogram was last year and reports it was negative Last PAP smear over three years ago and was scheduled for one but had to cancel PMHx: End stage COPD (on home 02), HTN, HLD, CAD, Diastolic LV dysfunction, hypothyroidism, sleep apnea PSHx: Social Hx: Lives at [facility] in [facility] Denies Alcohol or drug use Former Smoker. 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 Allergies: NKDA REVIEW OF SYSTEMS: CONSTITUTIONAL: Absent: fever, chills, diaphoresis, generalized weakness, malaise, loss of appetite, weight change HEENT: Absent: rhinorrhea, nasal congestion, throat pain, throat swelling, difficulty swallowing, mouth swelling, ear pain, eye pain, visual changes CARDIOVASCULAR: Absent: chest pain, syncope, palpitations, irregular heart rate, lightheadedness , peripheral edema RESPIRATORY: cough, shortness of breath, dyspnea with exertion Absent: wheezing, stridor, hemoptysis GASTROINTESTINAL: Absent: abdominal pain, abdominal distension, nausea, vomiting, diarrhea, constipation, melena, hematochezia GENITOURINARY: Absent: dysuria, frequency, urgency, hesitancy, hematuria, flank pain, genital pain MUSCULOSKELETAL: Absent: myalgia, arthralgia, joint swelling, back pain, neck pain SKIN: Absent: rash, itching, pallor HEMATOLOGIC/IMMUNOLOGIC: Bruising Absent: easy bleeding, easy bruising, lymphadenopathy, frequent infections ENDOCRINE: Absent: unexplained weight gain, unexplained weight loss, heat intolerance, cold intolerance NEUROLOGIC: mental status changes Absent: headache, focal weakness or paresthesias, dizziness, unsteady gait, seizure, bladder or bowel incontinence PSYCHIATRIC: Absent: anxiety, depression, suicidal or homicidal ideation, hallucinations. PHYSICAL EXAMINATION Vital Signs - 24 hr 05/25/18 05/25/18 17:09 18:00 Temperature 97.2 F L Pulse Rate 106 H Respiratory 20 Rate Blood Pressure 134/73 O2 Sat by Pulse 94 L Oximetry (%) GENERAL: Awake, alert, and fully oriented, in no acute distress. HEAD: Normal with no signs of trauma. EYES: Pupils equal, round and reactive to light, extraocular movements intact, sclera anicteric, conjunctiva clear ENT: Oropharynx clear without exudates. Moist mucous membranes. NECK: Large neck circumference with (-) lymphadenopathy, JVD, or masses. LUNGS: On 02 NC with accessory muscle use. Scattered Rhonchi throughout lung bases bilaterally HEART: Tachycardic with regular rhythm, normal S1 and S2. JUAN LUIS' BREAST: No discharge, masses or retraction. (+) large right horizontal ecchymosis at the 3 clock ABDOMEN: Soft, Obese nontender, not distended, normoactive bowel sounds, no guarding, no rebound, no masses. No hepatomegaly or splenomegaly. (+) Multiple scattered ecchymosis MUSCULOSKELETAL: No CVA tenderness. EXTREMITIES: 2+ pulses, warm, well-perfused. No calf tenderness. No peripheral edema. NEUROLOGICAL: Cranial nerves II-XII intact. Normal speech. PSYCHIATRIC: Cooperative. Good eye contact. Appropriate mood and affect. SKIN: Warm, dry, normal turgor, (+) several echymosis. Laboratory Results - last 24 hr 05/24/18 05/24/18 05/24/18 19:35 19:35 21:40 WBC 19.8 H RBC 3.09 L Hgb 9.6 L Hct 28.8 L MCV 93.2 MCH 31.0 MCHC 33.3 RDW 13.2 Plt Count 121 L MPV 9.9 Absolute Neuts (auto) 19.4 H Neutrophils % 98.0 H Neutrophils % (Manual) 94.0 H Band Neutrophils % 4.0 Lymphocytes % 0.4 L Lymphocytes % (Manual) 1.0 L Monocytes % 1.3 L Monocytes % (Manual) 1 L Eosinophils % 0.0 Eosinophils % (Manual) Basophils % 0.3 Basophils % (Manual) Myelocytes % (Man) Promyelocytes % (Man) Blast Cells % (Manual) Nucleated RBC % 0 Metamyelocytes Hypochromia 1+ Platelet Estimate Slt decrease Platelet Comment No clumping noted Polychromasia 1+ Poikilocytosis Anisocytosis 1+ Microcytosis 1+ Macrocytosis 1+ Spherocytes 1+ Ovalocytes 1+ Stomatocytes 1+ Sodium 138 Potassium 4.4 Chloride 80 L Carbon Dioxide > 45 H Anion Gap 13 BUN 51 H Creatinine 0.9 Creat Clearance w eGFR > 60 POC Glucometer 215 Random Glucose 185 H Calcium 8.7 Total Bilirubin AST ALT Alkaline Phosphatase Creatine Kinase 23 L Troponin I < 0.02 B-Natriuretic Peptide Total Protein Albumin 05/25/18 05/25/18 05/25/18 05:26 05:30 05:30 WBC 20.6 H RBC 3.18 L Hgb 9.4 L Hct 30.1 L MCV 94.5 MCH 29.7 MCHC 31.4 L RDW 13.6 Plt Count 110 L MPV 9.5 Absolute Neuts (auto) 20.0 H Neutrophils % 97.5 H Neutrophils % (Manual) 96.0 H Band Neutrophils % 3.0 Lymphocytes % 0.4 L Lymphocytes % (Manual) 1.0 L Monocytes % 1.8 L Monocytes % (Manual) 0 L D Eosinophils % 0.0 Eosinophils % (Manual) 0.0 Basophils % 0.3 Basophils % (Manual) 0.0 Myelocytes % (Man) 0 Promyelocytes % (Man) 0 Blast Cells % (Manual) 0 Nucleated RBC % 0 Metamyelocytes 0 Hypochromia 0 Platelet Estimate Decreased Platelet Comment Polychromasia 0 Poikilocytosis 0 Anisocytosis 1+ Microcytosis 0 Macrocytosis 1+ Spherocytes Ovalocytes Stomatocytes 1+ Sodium 141 Potassium 4.4 Chloride 82 L Carbon Dioxide 58 H Anion Gap 1 L BUN 38 H Creatinine 0.6 Creat Clearance w eGFR > 60 POC Glucometer 217 Random Glucose 213 H Calcium 8.7 Total Bilirubin 0.9 AST 36 ALT 37 Alkaline Phosphatase 104 Creatine Kinase Troponin I B-Natriuretic Peptide Total Protein 4.7 L Albumin 2.2 L Active Medications Generic Name Dose Route Start Last Admin Trade Name Freq PRN Reason Stop Dose Admin Acetaminophen 650 mg 05/19/18 20:32 05/22/18 22:12 Tylenol - PO 650 mg Q6H PRN Administration PAIN 1-7 Albuterol Sulfate 1 amp 05/19/18 20:32 05/25/18 12:10 Ventolin 0.083% Nebulizer Soln - NEB 1 amp Q8H PRN Administration SHORT OF BREATH/WHEEZING Albuterol Sulfate 1 puff 05/19/18 20:32 Ventolin Hfa Inhaler - IH Q6H PRN [facility] Aspirin 81 mg 05/20/18 10:00 05/25/18 09:36 Asa - PO 81 mg DAILY [facility] Administration Escitalopram Oxalate 10 mg 05/20/18 10:00 05/25/18 09:36 Lexapro - PO 10 mg DAILY [facility] Administration Heparin Sodium (Porcine) 5,000 unit 05/19/18 22:00 05/25/18 09:31 Heparin - SQ Not Given BID [facility] Levofloxacin 500 mg in 100 mls @ 100 mls/hr 05/25/18 18:15 Levaquin 500 Mg Premixed Ivpb - IVPB Q24H [facility] Protocol Insulin Aspart 1 vial 05/19/18 22:00 05/25/18 17:12 Novolog Vial Sliding Scale - SQ 2 units ACHS [facility] Administration Protocol Levothyroxine Sodium 75 mcg 05/24/18 07:00 05/25/18 06:44 Synthroid - PO 75 mcg DAILY@0700 [facility] Administration Methylprednisolone Sodium Succinate 40 mg 05/24/18 18:00 05/25/18 17:12 Solu-Medrol - IVPUSH 40 mg Q8H-IV [facility] Administration Montelukast Sodium 10 mg 05/19/18 22:00 05/24/18 21:37 Singulair - PO 10 mg HS [facility] Administration Pantoprazole Sodium 20 mg 05/20/18 10:00 05/25/18 09:36 Protonix - PO 20 mg DAILY [facility] Administration Potassium Chloride 10 meq 05/21/18 22:00 05/25/18 09:36 K-Dur - PO 10 meq BID [facility] Administration Roflumilast 500 mcg 05/20/18 10:00 05/25/18 09:37 Daliresp - PO 500 mcg DAILY [facility] Administration Rosuvastatin Calcium 5 mg 05/19/18 22:00 05/24/18 21:36 Crestor - PO 5 mg HS [facility] Administration ASSESSMENT/PLAN: Patient is a 57 year old female who presented for AMS, lethargy and shortness of breath and was found to have COPD exacerbation. Throughout hospitalization, patient was found to have anemia and thrombocytopenia and we were consulted for further evaluation and recommendations. Problem List: Anemia and Thrombocytopenia COPD on 02 Acute on chronic hypoxic and hypercapneic respiratory failure Altered mental status Toxic metabolic enchelopathy CAD Diastolic LV dysfunction HTN HLD Hypothyroidism Right hand hematoma PLAN: -Risk factors for thrombocytopenia may include infection, HIT and the use of medications such as Levaquin, however, that was started today. HIT ab ordered and sono of liver and spleen. Of note, TSH is in hyperthyroid level and would suggest decreasing current dosage of synthroid. -Anemia may be that of chronic illness. Iron studies and folate level ordered -Patient with significant ecchymosis. Currently she is on Aspirin, steroids, and heparin. Patient also on Lexapro, which may cause abnormal platelet aggregation and can contribute to bleeding diathesis, especially with the 4 mentioned medications. -Retic and LDH ordered Will Continue to follow Visit type - Emergency Visit Emergency Visit: Yes ED Registration Date: 05/19/18 Care time: The patient presented to the Emergency Department on the above date and was hospitalized for further evaluation of their emergent condition. - New Patient This patient is new to me today: Yes Date on this admission: 05/25/18 - Critical Care Critical Care patient: No
[2018-05-25 20:36] LABS: URINE APPEARANCE SLCLOUDY; URINE BILIRUBIN NEGATIVE (<2.0 mg/dL); URINE COLOR YELLOW; URINE GLUCOSE (UA) NEGATIVE (NEGATIVE); URINE KETONE NEGATIVE (NEGATIVE); URINE LEUK ESTERASE NEGATIVE (NEGATIVE); URINE NITRITE NEGATIVE (NEGATIVE); URINE PROTEIN 2+ (NEGATIVE); URINE UROBILINOGEN 4.0 E.U/dl mg/dL (0.2-1.0)
--- NOTE | 2018-05-25 20:38 | PN ---
Teaching Attending Note Name of Resident: Flora Barillas ATTENDING PHYSICIAN STATEMENT I saw and evaluated the patient. I reviewed the resident's note and discussed the case with the resident. I agree with the resident's findings and plan as documented. SUBJECTIVE: Patient seen and examined Exacerbation of COPD UTI with antibiotics recently begun Anemia , thrombocytopenia Last Vital Signs Temp Pulse Resp BP Pulse Ox 97.8 F 104 H 20 129/69 98 05/25/18 20:22 05/25/18 20:22 05/25/18 20:22 05/25/18 20:22 05/25/18 20:23 HEENT: PENG, EOM Intact Oropharynx: No thrush, No mucositis Breasts: Without masses ecchymoses Cor: RSR, No murmurs, No gallops Lungs: diminished breath sounds , rhonchi Abd: Soft, Normal bowel sounds, No organomegaly numerous ecchymoses abdominal wall Ext:No significant edema, ecchymoses,extremities especially RUE Skin: No rashes, Integument intact CBC, BMP 05/25/18 05:30 05/25/18 05:30 INR, PTT INR 0.97 (0.83-1.09) 05/19/18 16:15 Current Medications Generic Name Dose Route Start Last Admin Trade Name Freq PRN Reason Stop Dose Admin Acetaminophen 650 mg 05/19/18 20:32 05/22/18 22:12 Tylenol - PO 650 mg Q6H PRN Administration PAIN 1-7 Albuterol Sulfate 1 amp 05/19/18 20:32 05/25/18 12:10 Ventolin 0.083% Nebulizer Soln - NEB 1 amp Q8H PRN Administration SHORT OF BREATH/WHEEZING Albuterol Sulfate 1 puff 05/19/18 20:32 Ventolin Hfa Inhaler - IH Q6H PRN ASTHMA Aspirin 81 mg 05/20/18 10:00 05/25/18 09:36 Asa - PO 81 mg DAILY [facility] Administration Escitalopram Oxalate 10 mg 05/20/18 10:00 05/25/18 09:36 Lexapro - PO 10 mg DAILY [facility] Administration Heparin Sodium (Porcine) 5,000 unit 05/19/18 22:00 05/25/18 09:31 Heparin - SQ Not Given BID [facility] Levofloxacin 500 mg in 100 mls @ 100 mls/hr 05/25/18 18:15 05/25/18 18:32 Levaquin 500 Mg Premixed Ivpb - IVPB 100 mls/hr Q24H [facility] Administration Protocol Insulin Aspart 1 vial 05/19/18 22:00 05/25/18 17:12 Novolog Vial Sliding Scale - SQ 2 units ACHS [facility] Administration Protocol Levothyroxine Sodium 75 mcg 05/24/18 07:00 05/25/18 06:44 Synthroid - PO 75 mcg DAILY@0700 [facility] Administration Methylprednisolone Sodium Succinate 40 mg 05/24/18 18:00 05/25/18 17:12 Solu-Medrol - IVPUSH 40 mg Q8H-IV [facility] Administration Montelukast Sodium 10 mg 05/19/18 22:00 05/24/18 21:37 Singulair - PO 10 mg HS [facility] Administration Pantoprazole Sodium 20 mg 05/20/18 10:00 05/25/18 09:36 Protonix - PO 20 mg DAILY [facility] Administration Potassium Chloride 10 meq 05/21/18 22:00 05/25/18 09:36 K-Dur - PO 10 meq BID [facility] Administration Roflumilast 500 mcg 05/20/18 10:00 05/25/18 09:37 Daliresp - PO 500 mcg DAILY [facility] Administration Rosuvastatin Calcium 5 mg 05/19/18 22:00 05/24/18 21:36 Crestor - PO 5 mg HS [facility] Administration Impression Exacerbation of COPD Anemia- ?? chronic disease - for Fe++ studies Thrombocytopenia--?? infection, exclude HIOT Hyperthyroid on 75 mcg of synthroid- need to decrease dosing Ecchymoses- secondary to steroids, ASA, heparin and lexapro which interferes with normal platelet function and causes increased bleed ing diathesis especially with ASA therpay. Would consider discontinuation of lexapro if feasible . ASA ? need in setting of heparin etc. Await tests. OBJECTIVE: ASSESSMENT AND PLAN:
[2018-05-25 21:01] LABS: EPI CELLS FEW /HPF (FEW); URINE BACTERIA MODERATE /hpf (NONE SEEN); URINE MUCUS RARE
--- NOTE | 2018-05-25 22:10 | FALL ---
Fall Exam - Event Witnessed fall: Yes Location of Fall: Patient Room Fall from: While ambulating - Pre-Fall Mental Status: Alert Current Medications: Current Medications Generic Name Dose Route Start Last Admin Trade Name Freq PRN Reason Stop Dose Admin Acetaminophen 650 mg 05/19/18 20:32 05/22/18 22:12 Tylenol - PO 650 mg Q6H PRN Administration PAIN 1-7 Albuterol Sulfate 1 amp 05/19/18 20:32 05/25/18 12:10 Ventolin 0.083% Nebulizer Soln - NEB 1 amp Q8H PRN Administration SHORT OF BREATH/WHEEZING Albuterol Sulfate 1 puff 05/19/18 20:32 Ventolin Hfa Inhaler - IH Q6H PRN ASTHMA Aspirin 81 mg 05/20/18 10:00 05/25/18 09:36 Asa - PO 81 mg DAILY [facility] Administration Escitalopram Oxalate 10 mg 05/20/18 10:00 05/25/18 09:36 Lexapro - PO 10 mg DAILY [facility] Administration Heparin Sodium (Porcine) 5,000 unit 05/19/18 22:00 05/25/18 09:31 Heparin - SQ Not Given BID [facility] Levofloxacin 500 mg in 100 mls @ 100 mls/hr 05/25/18 18:15 05/25/18 18:32 Levaquin 500 Mg Premixed Ivpb - IVPB 100 mls/hr Q24H [facility] Administration Protocol Insulin Aspart 1 vial 05/19/18 22:00 05/25/18 17:12 Novolog Vial Sliding Scale - SQ 2 units ACHS [facility] Administration Protocol Levothyroxine Sodium 75 mcg 05/24/18 07:00 05/25/18 06:44 Synthroid - PO 75 mcg DAILY@0700 [facility] Administration Methylprednisolone Sodium Succinate 40 mg 05/24/18 18:00 05/25/18 17:12 Solu-Medrol - IVPUSH 40 mg Q8H-IV [facility] Administration Montelukast Sodium 10 mg 05/19/18 22:00 05/24/18 21:37 Singulair - PO 10 mg HS [facility] Administration Pantoprazole Sodium 20 mg 05/20/18 10:00 05/25/18 09:36 Protonix - PO 20 mg DAILY [facility] Administration Potassium Chloride 10 meq 05/21/18 22:00 05/25/18 09:36 K-Dur - PO 10 meq BID [facility] Administration Roflumilast 500 mcg 05/20/18 10:00 05/25/18 09:37 Daliresp - PO 500 mcg DAILY [facility] Administration Rosuvastatin Calcium 5 mg 05/19/18 22:00 05/24/18 21:36 Crestor - PO 5 mg HS [facility] Administration - Post-Fall Patient Outcome: Pain Only (Head) Exam Findings: AAOx3, HEENT- Atraumatic, Normocephalic, non tender to palpation , no abrasions, no laceration, PERRL, +EOMs, supple non-tender. Lungs- Rhonchi, diminished to bases, Heart- S1, S2 no MGR, Abdomen- Obese, soft, non-tender, BS present, Extremities: FROM, no swelling, non-tender to palpation, Hips/pelvis- nontender, Integumentary- eccyhmotic bruising to upper extremites Treatment: Ice Pack Vital Signs: Vital Signs Temperature 97.8 F 05/25/18 20:22 Pulse Rate 104 H 05/25/18 20:22 Respiratory Rate 20 05/25/18 20:22 Blood Pressure 129/69 05/25/18 20:22 O2 Sat by Pulse Oximetry (%) 98 05/25/18 20:23 LOC Post-Fall: Unchanged Identify factors for HIGH RISK for Head Injury: Pt on anticoagulant, Known to have hit head
[2018-05-25] MEDS: MONTELUKAST NA 10 MG TABLET PO SCH (23:23)
[2018-05-25] MEDS: ROSUVASTATIN CA 5 MG TABLET (FP) PO SCH (23:24)
[2018-05-26] MEDS: methylPREDNISolone NA SUCC 40 MG/1 ML VIAL IVPUSH SCH ×3 (03:00→17:18)
[2018-05-26] MEDS: INSULIN SLIDING SCALE (NOVOLOG) 1 VIAL SQ SCH ×4 (06:08→22:33)
[2018-05-26] MEDS: LEVOTHYROXINE NA 75 MCG TABLET (FP) PO SCH (06:23)
--- NOTE | 2018-05-26 06:39 | PN ---
Progress Note, Physician Chief Complaint: s/p fall last night, went to the commode with aid and her knees gave out on the way back to bed fell backwards per staff (while aid was trying to hold her) per staff did not hit her head but touched it against the commode; seen by hospitalist, head CT no bleed but sinus opacifications (called ENT) seen by ID started on iv levaquin possible PNA - will check chest CT falls pfx d/w pt again heparin held; R hand hematoma better; still bruises on arms, chest pt seems alert and oriented, no confusion, no tremor; d/w pt she should use Bipap as ordered per pulm (she does not like it and does not want to use it), d/ w pt about possible intubation, possible tracheostomy; she said she is aware and she asked me to talk to her too, which I did via phone - Current Medication List Current Medications: Active Medications Acetaminophen (Tylenol -) 650 mg PO Q6H PRN PRN Reason: PAIN 1-7 Last Admin: 05/22/18 22:12 Dose: 650 mg Albuterol Sulfate (Ventolin 0.083% Nebulizer Soln -) 1 amp NEB Q8H PRN PRN Reason: SHORT OF BREATH/WHEEZING Last Admin: 05/25/18 23:34 Dose: 1 amp Albuterol Sulfate (Ventolin Hfa Inhaler -) 1 puff IH Q6H PRN PRN Reason: ASTHMA Aspirin (Asa -) 81 mg PO DAILY [facility] Last Admin: 05/25/18 09:36 Dose: 81 mg Heparin Sodium (Porcine) (Heparin -) 5,000 unit SQ BID [facility] Last Admin: 05/25/18 09:31 Dose: Not Given Levofloxacin (Levaquin 500 Mg Premixed Ivpb -) 500 mg in 100 mls @ 100 mls/hr IVPB Q24H [facility]; Protocol Last Admin: 05/25/18 18:32 Dose: 100 mls/hr Insulin Aspart (Novolog Vial Sliding Scale -) 1 vial SQ ACHS [facility]; Protocol Last Admin: 05/26/18 06:08 Dose: Not Given Levothyroxine Sodium (Synthroid -) 75 mcg PO DAILY@0700 [facility] Last Admin: 05/26/18 06:23 Dose: 75 mcg Methylprednisolone Sodium Succinate (Solu-Medrol -) 40 mg IVPUSH Q8H-IV [facility] Last Admin: 05/26/18 03:00 Dose: 40 mg Montelukast Sodium (Singulair -) 10 mg PO HS [facility] Last Admin: 05/25/18 23:23 Dose: 10 mg Pantoprazole Sodium (Protonix -) 20 mg PO DAILY [facility] Last Admin: 05/25/18 09:36 Dose: 20 mg Potassium Chloride (K-Dur -) 10 meq PO BID [facility] Last Admin: 05/25/18 23:23 Dose: 10 meq Roflumilast (Daliresp -) 500 mcg PO DAILY [facility] Last Admin: 05/25/18 09:37 Dose: 500 mcg Rosuvastatin Calcium (Crestor -) 5 mg PO HS [facility] Last Admin: 05/25/18 23:24 Dose: 5 mg - Objective Vital Signs: Vital Signs Temperature 97.8 F 05/26/18 05:58 Pulse Rate 105 H 05/26/18 05:58 Respiratory Rate 20 05/26/18 05:58 Blood Pressure 145/82 05/26/18 05:58 O2 Sat by Pulse Oximetry (%) 99 05/26/18 05:43 Constitutional: Yes: No Distress, Calm Eyes: Yes: Conjunctiva Clear HENT: Yes: Atraumatic Neck: Yes: Supple Cardiovascular: Yes: Regular Rate and Rhythm Respiratory: Yes: Rales Gastrointestinal: Yes: Soft. No: Distention Genitourinary: No: CVA Tenderness - Left, CVA Tenderness - Right Musculoskeletal: No: Joint Stiffness, Joint Swelling Extremities: No: Cold, Cool Edema: No Integumentary: Yes: Bruising. No: Rash, Venous Stasis Changes Neurological: Yes: WNL, Alert, Oriented ...Motor Strength: WNL Psychiatric: Yes: WNL, Alert, Oriented. No: Agitated, Suicidal Ideation Labs: CBC, BMP 05/25/18 05:30 05/25/18 05:30 INR, PTT INR 0.97 (0.83-1.09) 05/19/18 16:15 - ....Imaging Other: Report Reviewed Assessment/Plan The patient is a 57F w/ a history of severe advanced COPD O2 dependant and frequent Bipap use, HTN, CAD, hypothyroidism admitted with acute on chronic COPD exacerbation. s/p Fall. Sinusitis, PNA pulmonary and neurology f/u ID f/u ENT eval iv steroids, nebs, O2, Bipap; gastric pfx while on steroids; check labs, chest CT BGM and GLU control while on steroids RUE arm, abdomen and under breasts bruises; R hand hematoma seen by ortho hand surgery; OT/PT; sq heparin held; hypothyr - was on synthroid 100 mcg / day but recent TSH low, synthroid was held x 1 week and restarted at 75 mcg/day low PLT anemia: heme eval falls decubs DVT PFX prognosis guarded d/w pt and staff d/w pt's / phone
[2018-05-26 07:46] LABS: BASO % 0.3 % (0-2.0); HEMATOCRIT 28.7 % (32.4-45.2); LYMPH % 0.4 % (8-40); MCH 29.8 pg (25.7-33.7); MCHC 31.4 g/dl (32.0-36.0); MEAN PLT VOLUME 9.6 fl (7.5-11.1); MONO % 1.8 % (3.8-10.2); NEUT % 97.5 % (42.8-82.8); PLATELET COUNT 120 K/MM3 (134-434); RBC 3.02 M/mm3 (3.60-5.2); RDW 13.4 % (11.6-15.6); WHITE BLOOD COUNT 20.2 K/mm3 (4.0-10.0)
[2018-05-26 08:34] LABS: ALK PHOS 121 U/L (45-117); ANION GAP 14 MMOL/L (8-16); BILIRUBIN,TOTAL 0.6 mg/dL (0.2-1); BLOOD UREA NITROGEN 31 mg/dL (7-18); CALCIUM 8.6 mg/dL (8.5-10.1); CHLORIDE 81 mmol/L (98-107); CO2 > 45 mmol/L (21-32); CREATININE 0.6 mg/dL (0.55-1.3); GLUCOSE,RANDOM 167 mg/dL (74-106); SGOT/AST 41 U/L (15-37); SGPT/ALT 42 U/L (13-61); SODIUM 139 mmol/L (136-145); TOT PROT 4.7 g/dl (6.4-8.2)
[2018-05-26] MEDS ORDERED: PT OWN MED DRAWER 7, Y5N ONE ×2 (09:02→12:01)
[2018-05-26] MEDS: POTASSIUM CHLORIDE TABS 10 MEQ TABLET.ER (FP) PO SCH ×2 (10:51→22:33)
[2018-05-26] MEDS: ASPIRIN 81 MG CHEWABLE TABLETS PO SCH (10:51)
[2018-05-26] MEDS: PANTOPRAZOLE 20 MG TABLET (FP) PO SCH (10:51)
[2018-05-26] MEDS: ROFLUMILAST 500 MCG TABLET PO SCH (10:51)
[2018-05-26 10:55] LABS: ANISOCYTOSIS 2+; PLATELET ESTIMATE DECREASED; TOXIC GRANULATION 2+
--- NOTE | 2018-05-26 11:49 | PN ---
Progress Note, Physician History of Present Illness: pulmonary alert,less dyspneic,+ non-productive cough - Current Medication List Current Medications: Active Medications Acetaminophen (Tylenol -) 650 mg PO Q6H PRN PRN Reason: PAIN 1-7 Last Admin: 05/22/18 22:12 Dose: 650 mg Albuterol Sulfate (Ventolin 0.083% Nebulizer Soln -) 1 amp NEB Q8H PRN PRN Reason: SHORT OF BREATH/WHEEZING Last Admin: 05/25/18 23:34 Dose: 1 amp Albuterol Sulfate (Ventolin Hfa Inhaler -) 1 puff IH Q6H PRN PRN Reason: ASTHMA Aspirin (Asa -) 81 mg PO DAILY [facility] Last Admin: 05/26/18 10:51 Dose: 81 mg Heparin Sodium (Porcine) (Heparin -) 5,000 unit SQ BID [facility] Last Admin: 05/25/18 09:31 Dose: Not Given Levofloxacin (Levaquin 500 Mg Premixed Ivpb -) 500 mg in 100 mls @ 100 mls/hr IVPB Q24H [facility]; Protocol Last Admin: 05/25/18 18:32 Dose: 100 mls/hr Insulin Aspart (Novolog Vial Sliding Scale -) 1 vial SQ ACHS [facility]; Protocol Last Admin: 05/26/18 06:08 Dose: Not Given Levothyroxine Sodium (Synthroid -) 75 mcg PO DAILY@0700 [facility] Last Admin: 05/26/18 06:23 Dose: 75 mcg Methylprednisolone Sodium Succinate (Solu-Medrol -) 40 mg IVPUSH Q8H-IV [facility] Last Admin: 05/26/18 10:51 Dose: 40 mg Montelukast Sodium (Singulair -) 10 mg PO HS [facility] Last Admin: 05/25/18 23:23 Dose: 10 mg Pantoprazole Sodium (Protonix -) 20 mg PO DAILY [facility] Last Admin: 05/26/18 10:51 Dose: 20 mg Potassium Chloride (K-Dur -) 10 meq PO BID [facility] Last Admin: 05/26/18 10:51 Dose: 10 meq Roflumilast (Daliresp -) 500 mcg PO DAILY [facility] Last Admin: 05/26/18 10:51 Dose: 500 mcg Rosuvastatin Calcium (Crestor -) 5 mg PO HS [facility] Last Admin: 05/25/18 23:24 Dose: 5 mg - Objective Vital Signs: Vital Signs Temperature 97.8 F 05/26/18 10:00 Pulse Rate 102 H 05/26/18 10:00 Respiratory Rate 24 H 05/26/18 10:00 Blood Pressure 136/78 05/26/18 10:00 O2 Sat by Pulse Oximetry (%) 99 05/26/18 05:43 Constitutional: Yes: Well Nourished, Calm, Other (mildly dyspneic) Eyes: Yes: WNL HENT: Yes: WNL Neck: Yes: WNL Cardiovascular: Yes: Regular Rate and Rhythm, S1, S2 Respiratory: Yes: Rales (BIBASILAR CRACKLES) Gastrointestinal: Yes: WNL Extremities: Yes: Other (r hand ecchymotic) Edema: No Labs: CBC, BMP 05/26/18 06:20 05/26/18 06:20 INR, PTT INR 0.97 (0.83-1.09) 05/19/18 16:15 - ....Imaging Cat Scan: Report Reviewed, Image Reviewed ([facility] [employer]) Problem List - Problems (1) Altered mental status Code(s): R41.82 - ALTERED MENTAL STATUS, UNSPECIFIED Qualifiers: Altered mental status type: disorientation Qualified Code(s): R41.0 - Disorientation, unspecified (2) COPD exacerbation Code(s): J44.1 - CHRONIC OBSTRUCTIVE PULMONARY DISEASE W (ACUTE) EXACERBATION (3) Acute on chronic respiratory failure with hypoxia and hypercapnia Code(s): J96.21 - ACUTE AND CHRONIC RESPIRATORY FAILURE WITH HYPOXIA; J96.22 - ACUTE AND CHRONIC RESPIRATORY FAILURE WITH HYPERCAPNIA (4) CHF (congestive heart failure) Code(s): I50.9 - HEART FAILURE, UNSPECIFIED (5) COPD exacerbation Code(s): J44.1 - CHRONIC OBSTRUCTIVE PULMONARY DISEASE W (ACUTE) EXACERBATION (6) Diastolic dysfunction Code(s): I51.9 - HEART DISEASE, UNSPECIFIED (7) Sleep apnea Code(s): G47.30 - SLEEP APNEA, UNSPECIFIED Assessment/Plan IMP ACUTE ON CHRONIC HYPOXEMIC HYPERCAPNEIC RESPIRATORY FAILURE COPD O2 DEPENDENT PNEUMONIA ALTERED MENTAL STATUS CHF HYPOTHYROID NAVDEEP PLAN STEROID TAPER ABX PER ID INHALED BRONCHODILATORS O2 BIPAP AT NIGHT AND PRN F/U CHEST X-RAYS Problem List - Problems (1) Altered mental status Code(s): R41.82 - ALTERED MENTAL STATUS, UNSPECIFIED Qualifiers: Altered mental status type: disorientation Qualified Code(s): R41.0 - Disorientation, unspecified (2) COPD exacerbation Code(s): J44.1 - CHRONIC OBSTRUCTIVE PULMONARY DISEASE W (ACUTE) EXACERBATION (3) Acute on chronic respiratory failure with hypoxia and hypercapnia Code(s): J96.21 - ACUTE AND CHRONIC RESPIRATORY FAILURE WITH HYPOXIA; J96.22 - ACUTE AND CHRONIC RESPIRATORY FAILURE WITH HYPERCAPNIA (4) CHF (congestive heart failure) Code(s): I50.9 - HEART FAILURE, UNSPECIFIED (5) COPD exacerbation Code(s): J44.1 - CHRONIC OBSTRUCTIVE PULMONARY DISEASE W (ACUTE) EXACERBATION (6) Diastolic dysfunction Code(s): I51.9 - HEART DISEASE, UNSPECIFIED (7) Sleep apnea Code(s): G47.30 - SLEEP APNEA, UNSPECIFIED
--- NOTE | 2018-05-26 11:52 | PN ---
Progress Note, Physician History of Present Illness: Non-productive cough, wheezes and dyspnea improving. - Current Medication List Current Medications: Active Medications Acetaminophen (Tylenol -) 650 mg PO Q6H PRN PRN Reason: PAIN 1-7 Last Admin: 05/22/18 22:12 Dose: 650 mg Albuterol Sulfate (Ventolin 0.083% Nebulizer Soln -) 1 amp NEB Q8H PRN PRN Reason: SHORT OF BREATH/WHEEZING Last Admin: 05/25/18 23:34 Dose: 1 amp Albuterol Sulfate (Ventolin Hfa Inhaler -) 1 puff IH Q6H PRN PRN Reason: ASTHMA Aspirin (Asa -) 81 mg PO DAILY [facility] Last Admin: 05/26/18 10:51 Dose: 81 mg Heparin Sodium (Porcine) (Heparin -) 5,000 unit SQ BID [facility] Last Admin: 05/25/18 09:31 Dose: Not Given Levofloxacin (Levaquin 500 Mg Premixed Ivpb -) 500 mg in 100 mls @ 100 mls/hr IVPB Q24H [facility]; Protocol Last Admin: 05/25/18 18:32 Dose: 100 mls/hr Insulin Aspart (Novolog Vial Sliding Scale -) 1 vial SQ ACHS [facility]; Protocol Last Admin: 05/26/18 06:08 Dose: Not Given Levothyroxine Sodium (Synthroid -) 75 mcg PO DAILY@0700 [facility] Last Admin: 05/26/18 06:23 Dose: 75 mcg Methylprednisolone Sodium Succinate (Solu-Medrol -) 40 mg IVPUSH Q8H-IV [facility] Last Admin: 05/26/18 10:51 Dose: 40 mg Montelukast Sodium (Singulair -) 10 mg PO HS [facility] Last Admin: 05/25/18 23:23 Dose: 10 mg Pantoprazole Sodium (Protonix -) 20 mg PO DAILY [facility] Last Admin: 05/26/18 10:51 Dose: 20 mg Potassium Chloride (K-Dur -) 10 meq PO BID [facility] Last Admin: 05/26/18 10:51 Dose: 10 meq Roflumilast (Daliresp -) 500 mcg PO DAILY [facility] Last Admin: 05/26/18 10:51 Dose: 500 mcg Rosuvastatin Calcium (Crestor -) 5 mg PO HS [facility] Last Admin: 05/25/18 23:24 Dose: 5 mg - Objective Vital Signs: Vital Signs Temperature 97.8 F 05/26/18 10:00 Pulse Rate 100 H 05/26/18 10:11 Respiratory Rate 24 H 05/26/18 10:11 Blood Pressure 124/70 05/26/18 10:11 O2 Sat by Pulse Oximetry (%) 99 05/26/18 05:43 Constitutional: Yes: No Distress, Calm Neck: Yes: Supple Cardiovascular: Yes: Regular Rate and Rhythm Respiratory: Yes: Regular, Diminished, On Nasal O2 Gastrointestinal: Yes: Normal Bowel Sounds, Soft, Abdomen, Obese Edema: No Labs: CBC, BMP 05/26/18 06:20 05/26/18 06:20 INR, PTT INR 0.97 (0.83-1.09) 05/19/18 16:15 - ....Imaging EKG: Report Reviewed (Tele: SR) Problem List - Problems (1) COPD exacerbation Code(s): J44.1 - CHRONIC OBSTRUCTIVE PULMONARY DISEASE W (ACUTE) EXACERBATION (2) Acute on chronic respiratory failure with hypoxia and hypercapnia Code(s): J96.21 - ACUTE AND CHRONIC RESPIRATORY FAILURE WITH HYPOXIA; J96.22 - ACUTE AND CHRONIC RESPIRATORY FAILURE WITH HYPERCAPNIA (3) Diastolic dysfunction Code(s): I51.9 - HEART DISEASE, UNSPECIFIED (4) Hyperlipidemia Code(s): E78.5 - HYPERLIPIDEMIA, UNSPECIFIED Qualifiers: Hyperlipidemia type: pure hypercholesterolemia Qualified Code(s): E78.00 - Pure hypercholesterolemia, unspecified; E78.0 - Pure hypercholesterolemia (5) Hypertension Code(s): I10 - ESSENTIAL (PRIMARY) HYPERTENSION Qualifiers: Hypertension type: essential hypertension Qualified Code(s): I10 - Essential (primary) hypertension (6) Hypothyroidism Code(s): E03.9 - HYPOTHYROIDISM, UNSPECIFIED Qualifiers: Hypothyroidism type: unspecified Qualified Code(s): E03.9 - Hypothyroidism , unspecified (7) Shortness of breath Code(s): R06.02 - SHORTNESS OF BREATH (8) Sleep apnea Code(s): G47.30 - SLEEP APNEA, UNSPECIFIED Qualifiers: Sleep apnea type: unspecified type Qualified Code(s): G47.30 - Sleep apnea , unspecified Assessment/Plan 1. Acute on chronic hypoxic and hypercapneic respiratory failure related to acute exacerbation of 2. Chronic obstructive pulmonary disease improving 3. Probable pneumonia to be considered 4. Altered mental status, probably toxic metabolic enchelopathy 5. CAD coronary artery calcification angina pectoris 6. Diastolic LV dysfunction with chronic class I NYHA classification LV failure , clinically compensated/euvolemic 7. HTN/HCVD 8. Hypercholesterolemia/mixed dyslipidemia 9. Hypothyroidism 10. Right hand hematoma 11. Pre-renal azotemia resolving 12. Anemia and thrombocytopenia 13. OSAS PLAN: 1. Resume losartan 25 qd, hemodynamics permitting 2. No indications for diuretic therapy at this point recommend prn utilization 3. Continue ASA 81 qd 4. Continue Crestor 5 qhs 5. Continue bronchodilators, Singulair, Daliresp and IV steroids and nightly bipap as per the pulmonary team 6. Empiric antibiotic course as per the primary team 7. DVT and GI prophylaxis, d/c telemetry
--- NOTE | 2018-05-26 14:28 | PN ---
Progress Note (short form) - Note Progress Note: Neurology History of Present Illness 57F w/ a history of COPD (2L NC at home), HTN, CAD, hypothyroidism who presents from [facility] ([place], [place]) for evaluation of increasing respiratory distress and associated confusion/lethargy. The patient was recently admitted for a COPD exacerbation. According to notes the family reported when the patient is having an exacerbation, it is typical for her to become confused. She was admitted and Pulmonary following closely. Patient experienced fall last night, hospitalist note reviewed, with head pain. CT head completed and without acute changes. Neurologically without focal deficits. Getting ongoing medical mgmt. Allergies/Adverse Reactions: Allergies Allergy/AdvReac Type Severity Reaction Status Date / Time Penicillins Allergy Severe Difficulty Verified 05/19/18 16:04 Breathing Active Medications Acetaminophen (Tylenol -) 650 mg PO Q6H PRN PRN Reason: PAIN 1-7 Last Admin: 05/22/18 22:12 Dose: 650 mg Albuterol Sulfate (Ventolin 0.083% Nebulizer Soln -) 1 amp NEB Q8H PRN PRN Reason: SHORT OF BREATH/WHEEZING Last Admin: 05/25/18 23:34 Dose: 1 amp Albuterol Sulfate (Ventolin Hfa Inhaler -) 1 puff IH Q6H PRN PRN Reason: ASTHMA Aspirin (Asa -) 81 mg PO DAILY [facility] Last Admin: 05/26/18 10:51 Dose: 81 mg Heparin Sodium (Porcine) (Heparin -) 5,000 unit SQ BID [facility] Last Admin: 05/25/18 09:31 Dose: Not Given Levofloxacin (Levaquin 500 Mg Premixed Ivpb -) 500 mg in 100 mls @ 100 mls/hr IVPB Q24H [facility]; Protocol Last Admin: 05/25/18 18:32 Dose: 100 mls/hr Insulin Aspart (Novolog Vial Sliding Scale -) 1 vial SQ ACHS [facility]; Protocol Last Admin: 05/26/18 12:12 Dose: 2 units Levothyroxine Sodium (Synthroid -) 75 mcg PO DAILY@0700 [facility] Last Admin: 05/26/18 06:23 Dose: 75 mcg Losartan Potassium (Cozaar -) 25 mg PO DAILY [facility] Methylprednisolone Sodium Succinate (Solu-Medrol -) 40 mg IVPUSH Q8H-IV [facility] Last Admin: 05/26/18 10:51 Dose: 40 mg Montelukast Sodium (Singulair -) 10 mg PO HS [facility] Last Admin: 05/25/18 23:23 Dose: 10 mg Pantoprazole Sodium (Protonix -) 20 mg PO DAILY [facility] Last Admin: 05/26/18 10:51 Dose: 20 mg Potassium Chloride (K-Dur -) 10 meq PO BID [facility] Last Admin: 05/26/18 10:51 Dose: 10 meq Roflumilast (Daliresp -) 500 mcg PO DAILY [facility] Last Admin: 05/26/18 10:51 Dose: 500 mcg Rosuvastatin Calcium (Crestor -) 5 mg PO HS [facility] Last Admin: 05/25/18 23:24 Dose: 5 mg *Physical Exam Vital Signs Period Temp Pulse Resp BP Sys/Domínguez Pulse Ox Last 24 Hr 97.2 F-98.2 F 100-108 20-24 124-145/68-82 92-99 GENERAL: Awake, easily arousable to voice, oriented to self, not telling me location, month, or year HEAD: No signs of trauma, normocephalic, atraumatic EYES: PERRLA, EOMI ENT: Hearing grossly normal, nares patent, oropharynx clear without exudates. Moist mucosa LUNGS: on 4LNC (2LNC at home); moderate diffuse wheeze b/l HEART: Tachycardia with regular rhythm, normal S1 and S2, no murmurs appreciated , peripheral pulses normal and equal bilaterally ABDOMEN: Soft, nontender, normoactive bowel sounds. No guarding, no rebound EXTREMITIES : 2+ BLE edema to knee; RUE hand and forearm hematoma, Normal range of motion NEUROLOGICAL: Cranial nerves II through XII grossly intact. no focal sensorimotor deficits, finger to nose normal, gait deferred Ct head reviewed Medical Decision Making 57F w/ a history of COPD (2L NC at home), HTN, CAD, hypothyroidism who presents from [facility] ([place], [place]) for evaluation of increasing respiratory distress and associated confusion/lethargy. The patient was recently admitted for a COPD exacerbation. According to notes the family reported when the patient is having an exacerbation, it is typical for her to become confused. She was admitted and Pulmonary following closely. Fall overnight with head pain but no focal deficits , CT head completed and without acute changes. Is alert and interactive. Likely AMS, Toxic metabolic encephalopathy 2/2 respiratory distress, still getting respiratory treatment and optimization. Continue optimization of COPD. Increased hydration, monitor BP, maintain normotensive range.
--- NOTE | 2018-05-26 16:28 | PN ---
Progress Note (short form) - Note Progress Note: less sob pen allergy- welts Vital Signs Period Temp Pulse Resp BP Sys/Domínguez Pulse Ox Last 24 Hr 97.2 F-98.2 F 100-114 20-24 124-145/68-82 92-99 cor-rrr lungs decreased bs at basea abd soft,nt ext +ecchymoses, hematomas on the hands cxray- ?RLL infiltrate chest ct- hilar adenopathy RLL infiltrate (new) CBC, BMP 05/26/18 06:20 05/26/18 06:20 Microbiology 05/25/18 18:47 Urine For Antigen Detection Legionella Antigen - Final 05/25/18 18:47 Urine For Antigen Detection Streptococcus pneumoniae Antigen (M - Final-positive 05/19/18 16:27 Blood - Peripheral Venous Blood Culture - Final NO GROWTH AFTER 5 DAYS INCUBATION 05/19/18 16:27 Blood - Peripheral Venous Blood Culture - Final NO GROWTH AFTER 5 DAYS INCUBATION 05/20/18 13:35 Urine - Urine Clean Catch Urine Culture - Final Enterococcus Faecalis Current Medications Acetaminophen (Tylenol -) 650 mg PO Q6H PRN PRN Reason: PAIN 1-7 Last Admin: 05/22/18 22:12 Dose: 650 mg Albuterol Sulfate (Ventolin 0.083% Nebulizer Soln -) 1 amp NEB Q8H PRN PRN Reason: SHORT OF BREATH/WHEEZING Last Admin: 05/25/18 23:34 Dose: 1 amp Albuterol Sulfate (Ventolin Hfa Inhaler -) 1 puff IH Q6H PRN PRN Reason: ASTHMA Aspirin (Asa -) 81 mg PO DAILY [facility] Last Admin: 05/26/18 10:51 Dose: 81 mg Heparin Sodium (Porcine) (Heparin -) 5,000 unit SQ BID [facility] Last Admin: 05/25/18 09:31 Dose: Not Given Levofloxacin (Levaquin 500 Mg Premixed Ivpb -) 500 mg in 100 mls @ 100 mls/hr IVPB Q24H [facility]; Protocol Last Admin: 05/25/18 18:32 Dose: 100 mls/hr Insulin Aspart (Novolog Vial Sliding Scale -) 1 vial SQ ACHS [facility]; Protocol Last Admin: 05/26/18 12:12 Dose: 2 units Levothyroxine Sodium (Synthroid -) 75 mcg PO DAILY@0700 [facility] Last Admin: 05/26/18 06:23 Dose: 75 mcg Losartan Potassium (Cozaar -) 25 mg PO DAILY [facility] Methylprednisolone Sodium Succinate (Solu-Medrol -) 40 mg IVPUSH Q8H-IV [facility] Last Admin: 05/26/18 10:51 Dose: 40 mg Montelukast Sodium (Singulair -) 10 mg PO HS [facility] Last Admin: 05/25/18 23:23 Dose: 10 mg Pantoprazole Sodium (Protonix -) 20 mg PO DAILY [facility] Last Admin: 05/26/18 10:51 Dose: 20 mg Potassium Chloride (K-Dur -) 10 meq PO BID [facility] Last Admin: 05/26/18 10:51 Dose: 10 meq Roflumilast (Daliresp -) 500 mcg PO DAILY [facility] Last Admin: 05/26/18 10:51 Dose: 500 mcg Rosuvastatin Calcium (Crestor -) 5 mg PO HS [facility] Last Admin: 05/25/18 23:24 Dose: 5 mg a/p copd exacerbation pen allergy pneumonia- Positive pneumococcal antigen continue levaquin vancomycin one dose sputum culture unable to obtain blood cultures yesterday, now on day #2 antiibiotics
[2018-05-26] MEDS ORDERED: VANCOMYCIN 1 GRAM (PRE-DOCKED) 1,000 MG/250 ML BAG IVPB ONE (16:45)
[2018-05-26] MEDS: ALBUTEROL SO4 0.083% IH SOL 2.5 MG/3 ML VIAL.NEB. NEB PRN (20:52)
[2018-05-26] MEDS: ROSUVASTATIN CA 5 MG TABLET (FP) PO SCH (22:33)
[2018-05-26] MEDS: MONTELUKAST NA 10 MG TABLET PO SCH (22:33)
[2018-05-27] MEDS: methylPREDNISolone NA SUCC 40 MG/1 ML VIAL IVPUSH SCH ×3 (02:20→17:19)
[2018-05-27] MEDS: ALBUTEROL SO4 0.083% IH SOL 2.5 MG/3 ML VIAL.NEB. NEB PRN (02:35)
[2018-05-27 06:06] LABS: CK-MM 100 % (97-100)
[2018-05-27 06:06] LABS: SERUM IRON SATURATION 25 % (15-55); TOTAL IRON BINDING CAPACITY 178 ug/dL (250-450); UIBC 134 ug/dL (131-425)
[2018-05-27] MEDS: LEVOTHYROXINE NA 75 MCG TABLET (FP) PO SCH (06:31)
[2018-05-27] MEDS: INSULIN SLIDING SCALE (NOVOLOG) 1 VIAL SQ SCH ×4 (06:31→22:36)
--- NOTE | 2018-05-27 06:48 | PN ---
Progress Note, Physician Chief Complaint: in bed has some back pain she thinks is b/o the bed mattress (she did not get OOB in few days) still tight breathing, no CP, was on Bipap earlier still on iv steroids; nebs; O2 d/w pt and / phone about pt's condition - might need intubation / tracheostomy if develops worsening respiratory failure, will d/w pulmonary - Current Medication List Current Medications: Active Medications Acetaminophen (Tylenol -) 650 mg PO Q6H PRN PRN Reason: PAIN 1-7 Last Admin: 05/22/18 22:12 Dose: 650 mg Albuterol Sulfate (Ventolin 0.083% Nebulizer Soln -) 1 amp NEB Q8H PRN PRN Reason: SHORT OF BREATH/WHEEZING Last Admin: 05/27/18 02:35 Dose: 1 amp Albuterol Sulfate (Ventolin Hfa Inhaler -) 1 puff IH Q6H PRN PRN Reason: ASTHMA Aspirin (Asa -) 81 mg PO DAILY [facility] Last Admin: 05/26/18 10:51 Dose: 81 mg Heparin Sodium (Porcine) (Heparin -) 5,000 unit SQ BID [facility] Last Admin: 05/25/18 09:31 Dose: Not Given Levofloxacin (Levaquin 500 Mg Premixed Ivpb -) 500 mg in 100 mls @ 100 mls/hr IVPB Q24H [facility]; Protocol Last Admin: 05/26/18 17:18 Dose: 100 mls/hr Insulin Aspart (Novolog Vial Sliding Scale -) 1 vial SQ ACHS [facility]; Protocol Last Admin: 05/27/18 06:31 Dose: Not Given Levothyroxine Sodium (Synthroid -) 75 mcg PO DAILY@0700 [facility] Last Admin: 05/27/18 06:31 Dose: 75 mcg Losartan Potassium (Cozaar -) 25 mg PO DAILY [facility] Methylprednisolone Sodium Succinate (Solu-Medrol -) 40 mg IVPUSH Q8H-IV [facility] Last Admin: 05/27/18 02:20 Dose: 40 mg Montelukast Sodium (Singulair -) 10 mg PO HS [facility] Last Admin: 05/26/18 22:33 Dose: 10 mg Pantoprazole Sodium (Protonix -) 20 mg PO DAILY [facility] Last Admin: 05/26/18 10:51 Dose: 20 mg Potassium Chloride (K-Dur -) 10 meq PO BID [facility] Last Admin: 05/26/18 22:33 Dose: 10 meq Roflumilast (Daliresp -) 500 mcg PO DAILY [facility] Last Admin: 05/26/18 10:51 Dose: 500 mcg Rosuvastatin Calcium (Crestor -) 5 mg PO HS [facility] Last Admin: 05/26/18 22:33 Dose: 5 mg - Objective Vital Signs: Vital Signs Temperature 97.6 F 05/27/18 06:00 Pulse Rate 98 H 05/27/18 06:00 Respiratory Rate 24 H 05/27/18 06:00 Blood Pressure 124/77 05/27/18 06:00 O2 Sat by Pulse Oximetry (%) 97 05/26/18 21:00 Constitutional: Yes: Anxious Eyes: Yes: Conjunctiva Clear HENT: Yes: Atraumatic Neck: Yes: Supple Cardiovascular: Yes: Regular Rate and Rhythm Respiratory: Yes: Rales, Wheezes Gastrointestinal: Yes: Soft. No: Ascites, Tenderness Genitourinary: No: CVA Tenderness - Left, CVA Tenderness - Right Musculoskeletal: No: Joint Stiffness, Joint Swelling Extremities: No: Cold, Cool, Cyanosis Edema: No Integumentary: Yes: Bruising (improving overall). No: Rash, Venous Stasis Changes Neurological: Yes: WNL, Alert, Oriented, Tremors ...Motor Strength: WNL Psychiatric: Yes: WNL, Alert, Oriented. No: Agitated, Suicidal Ideation Labs: CBC, BMP 05/26/18 06:20 05/26/18 06:20 INR, PTT INR 0.97 (0.83-1.09) 05/19/18 16:15 - ....Imaging Other: Report Reviewed Assessment/Plan The patient is a 57F w/ a history of severe advanced COPD O2 dependant and frequent Bipap use, HTN, CAD, hypothyroidism admitted with acute on chronic COPD exacerbation. s/p Fall. Sinusitis, PNA pulmonary and neurology f/u ID f/u and ENT eval (called) iv steroids, nebs, O2, Bipap; gastric pfx while on steroids; BGM and GLU control while on steroids R hand hematoma improved; restart sq heparin and close labs f/u low PLT< anemia: heme f/u; falls decubs DVT PFX prognosis guarded might need mechanical ventilation, tracheostomy d/w pt and staff d/w pt's / phone
[2018-05-27 07:47] LABS: BASO % 0.5 % (0-2.0); HEMATOCRIT 29.5 % (32.4-45.2); HEMOGLOBIN 9.1 GM/dL (10.7-15.3); LYMPH % 0.5 % (8-40); MCH 29.4 pg (25.7-33.7); MEAN CELL VOLUME 95.1 fl (80-96); MEAN PLT VOLUME 9.1 fl (7.5-11.1); MONO % 2.6 % (3.8-10.2); NEUT % 96.4 % (42.8-82.8); PLATELET COUNT 126 K/MM3 (134-434); RDW 13.6 % (11.6-15.6)
[2018-05-27] MEDS ORDERED: PT OWN MED DRAWER 7, Y5N ONE (07:56)
[2018-05-27 08:40] LABS: ALBUMIN 2.1 g/dl (3.4-5.0); ALK PHOS 136 U/L (45-117); BILIRUBIN,TOTAL 0.7 mg/dL (0.2-1); BLOOD UREA NITROGEN 31 mg/dL (7-18); CALCIUM 8.5 mg/dL (8.5-10.1); CHLORIDE 79 mmol/L (98-107); CREATININE 0.7 mg/dL (0.55-1.3); GLUCOSE,RANDOM 177 mg/dL (74-106); POTASSIUM 4.9 mmol/L (3.5-5.1); SGOT/AST 34 U/L (15-37); SGPT/ALT 41 U/L (13-61); SODIUM 138 mmol/L (136-145); TOT PROT 4.8 g/dl (6.4-8.2)
[2018-05-27 09:20] LABS: ANION GAP 4 MMOL/L (8-16); CO2 55 mmol/L (21-32)
--- NOTE | 2018-05-27 09:25 | PN ---
Progress Note (short form) - Note Progress Note: Neurology History of Present Illness 57F w/ a history of COPD (2L NC at home), HTN, CAD, hypothyroidism who presents from [facility] for evaluation of increasing respiratory distress and associated confusion/lethargy. The patient was recently admitted for a COPD exacerbation. According to notes the family reported when the patient is having an exacerbation, it is typical for her to become confused. She was admitted and Pulmonary following closely. Patient experienced fall last night, hospitalist note reviewed, with head pain. CT head completed and without acute changes. Neurologically without focal deficits. Getting ongoing medical mgmt. Is able to tell me she's at [place], thought it was may but knows the year. More alert and awake, interactive, less respiratory distress this AM while eating. Allergies/Adverse Reactions: Allergies Allergy/AdvReac Type Severity Reaction Status Date / Time Penicillins Allergy Severe Difficulty Verified 05/19/18 16:04 Breathing Active Medications Acetaminophen (Tylenol -) 650 mg PO Q6H PRN PRN Reason: PAIN 1-7 Last Admin: 05/22/18 22:12 Dose: 650 mg Albuterol Sulfate (Ventolin 0.083% Nebulizer Soln -) 1 amp NEB Q8H PRN PRN Reason: SHORT OF BREATH/WHEEZING Last Admin: 05/27/18 02:35 Dose: 1 amp Albuterol Sulfate (Ventolin Hfa Inhaler -) 1 puff IH Q6H PRN PRN Reason: ASTHMA Aspirin (Asa -) 81 mg PO DAILY [facility] Last Admin: 05/26/18 10:51 Dose: 81 mg Heparin Sodium (Porcine) (Heparin -) 5,000 unit SQ BID [facility] Last Admin: 05/25/18 09:31 Dose: Not Given Levofloxacin (Levaquin 500 Mg Premixed Ivpb -) 500 mg in 100 mls @ 100 mls/hr IVPB Q24H [facility]; Protocol Last Admin: 05/26/18 17:18 Dose: 100 mls/hr Insulin Aspart (Novolog Vial Sliding Scale -) 1 vial SQ ACHS [facility]; Protocol Last Admin: 05/27/18 06:31 Dose: Not Given Levothyroxine Sodium (Synthroid -) 75 mcg PO DAILY@0700 [facility] Last Admin: 05/27/18 06:31 Dose: 75 mcg Losartan Potassium (Cozaar -) 25 mg PO DAILY [facility] Methylprednisolone Sodium Succinate (Solu-Medrol -) 40 mg IVPUSH Q8H-IV [facility] Last Admin: 05/27/18 02:20 Dose: 40 mg Montelukast Sodium (Singulair -) 10 mg PO HS [facility] Last Admin: 05/26/18 22:33 Dose: 10 mg Pantoprazole Sodium (Protonix -) 20 mg PO DAILY [facility] Last Admin: 05/26/18 10:51 Dose: 20 mg Potassium Chloride (K-Dur -) 10 meq PO BID [facility] Last Admin: 05/26/18 22:33 Dose: 10 meq Roflumilast (Daliresp -) 500 mcg PO DAILY [facility] Last Admin: 05/26/18 10:51 Dose: 500 mcg Rosuvastatin Calcium (Crestor -) 5 mg PO HS [facility] Last Admin: 05/26/18 22:33 Dose: 5 mg *Physical Exam Vital Signs Period Temp Pulse Resp BP Sys/Domínguez Pulse Ox Last 24 Hr 97.4 F-98.8 F 98-114 18-24 119-137/64-78 92-97 GENERAL: Awake, easily arousable to voice, oriented to self, not telling me location, month, or year HEAD: No signs of trauma, normocephalic, atraumatic EYES: PERRLA, EOMI ENT: Hearing grossly normal, nares patent, oropharynx clear without exudates. Moist mucosa LUNGS: on 4LNC (2LNC at home); moderate diffuse wheeze b/l HEART: Tachycardia with regular rhythm, normal S1 and S2, no murmurs appreciated , peripheral pulses normal and equal bilaterally ABDOMEN: Soft, nontender, normoactive bowel sounds. No guarding, no rebound EXTREMITIES : 2+ BLE edema to knee; RUE hand and forearm hematoma, Normal range of motion NEUROLOGICAL: Cranial nerves II through XII grossly intact. no focal sensorimotor deficits, finger to nose normal, gait deferred Ct head reviewed Medical Decision Making 57F w/ a history of COPD (2L NC at home), HTN, CAD, hypothyroidism who presents from [facility] for evaluation of increasing respiratory distress and associated confusion/lethargy. The patient was recently admitted for a COPD exacerbation. According to notes the family reported when the patient is having an exacerbation, it is typical for her to become confused. She was admitted and Pulmonary following closely. Fall overnight with head pain but no focal deficits , CT head completed and without acute changes. Is alert and interactive now, neurologically stable. Likely AMS, Toxic metabolic encephalopathy 2/2 respiratory distress, continue optimization of COPD. Increased hydration, monitor BP, maintain normotensive range.
[2018-05-27] MEDS: ASPIRIN 81 MG CHEWABLE TABLETS PO SCH (09:26)
[2018-05-27] MEDS: POTASSIUM CHLORIDE TABS 10 MEQ TABLET.ER (FP) PO SCH ×2 (09:26→22:36)
[2018-05-27] MEDS: ROFLUMILAST 500 MCG TABLET PO SCH (09:26)
[2018-05-27] MEDS: PANTOPRAZOLE 20 MG TABLET (FP) PO SCH (09:26)
--- NOTE | 2018-05-27 10:14 | PN ---
Progress Note, Physician Chief Complaint: Events noted Dyspnea requiring CPAP this morning Complains of cough, SOB and back pain History of Present Illness: Patient was seen and examined. Chart was reviewed Now on CPAP - Current Medication List Current Medications: Active Medications Acetaminophen (Tylenol -) 650 mg PO Q6H PRN PRN Reason: PAIN 1-7 Last Admin: 05/22/18 22:12 Dose: 650 mg Albuterol Sulfate (Ventolin 0.083% Nebulizer Soln -) 1 amp NEB Q8H PRN PRN Reason: SHORT OF BREATH/WHEEZING Last Admin: 05/27/18 02:35 Dose: 1 amp Albuterol Sulfate (Ventolin Hfa Inhaler -) 1 puff IH Q6H PRN PRN Reason: ASTHMA Aspirin (Asa -) 81 mg PO DAILY [facility] Last Admin: 05/27/18 09:26 Dose: 81 mg Heparin Sodium (Porcine) (Heparin -) 5,000 unit SQ BID [facility] Last Admin: 05/25/18 09:31 Dose: Not Given Levofloxacin (Levaquin 500 Mg Premixed Ivpb -) 500 mg in 100 mls @ 100 mls/hr IVPB Q24H [facility]; Protocol Last Admin: 05/26/18 17:18 Dose: 100 mls/hr Insulin Aspart (Novolog Vial Sliding Scale -) 1 vial SQ ACHS [facility]; Protocol Last Admin: 05/27/18 06:31 Dose: Not Given Levothyroxine Sodium (Synthroid -) 75 mcg PO DAILY@0700 [facility] Last Admin: 05/27/18 06:31 Dose: 75 mcg Losartan Potassium (Cozaar -) 25 mg PO DAILY [facility] Methylprednisolone Sodium Succinate (Solu-Medrol -) 40 mg IVPUSH Q8H-IV [facility] Last Admin: 05/27/18 09:26 Dose: 40 mg Montelukast Sodium (Singulair -) 10 mg PO HS [facility] Last Admin: 05/26/18 22:33 Dose: 10 mg Pantoprazole Sodium (Protonix -) 20 mg PO DAILY [facility] Last Admin: 05/27/18 09:26 Dose: 20 mg Potassium Chloride (K-Dur -) 10 meq PO BID [facility] Last Admin: 05/27/18 09:26 Dose: 10 meq Roflumilast (Daliresp -) 500 mcg PO DAILY [facility] Last Admin: 05/27/18 09:26 Dose: 500 mcg Rosuvastatin Calcium (Crestor -) 5 mg PO HS [facility] Last Admin: 05/26/18 22:33 Dose: 5 mg - Objective Vital Signs: Vital Signs Temperature 97.6 F 05/27/18 09:00 Pulse Rate 104 H 05/27/18 09:00 Respiratory Rate 24 H 05/27/18 09:00 Blood Pressure 119/64 05/27/18 09:00 O2 Sat by Pulse Oximetry (%) 93 L 05/27/18 08:43 HENT: Yes: Atraumatic Neck: Yes: Supple Cardiovascular: Yes: Tachycardia, S1, S2 Respiratory: Yes: Diminished, On BiPap Gastrointestinal: Yes: Normal Bowel Sounds, Soft. No: Tenderness Edema: No Additional Findings/Remarks: - Review of Systems Constitutional: denies: Chills, Fever Cardiovascular: denies: Chest Pain, (+) Shortness of Breath. denies: Palpitations Respiratory: reports: Cough, Orthopnea, SOB, SOB on Exertion. denies: Hemoptysis, PND Gastrointestinal: denies: Abdominal Pain, Constipation, Melena, Nausea, Rectal Bleeding, Vomiting Genitourinary: denies: Dysuria, Hematuria Neurological: denies: Dizziness, Headache, Seizure, Syncope Labs: CBC, BMP 05/27/18 06:43 05/27/18 06:43 Problem List - Problems (1) Altered mental status Code(s): R41.82 - ALTERED MENTAL STATUS, UNSPECIFIED Qualifiers: Altered mental status type: disorientation Qualified Code(s): R41.0 - Disorientation, unspecified (2) COPD exacerbation Code(s): J44.1 - CHRONIC OBSTRUCTIVE PULMONARY DISEASE W (ACUTE) EXACERBATION (3) Acute and chronic respiratory failure with hypoxia Code(s): J96.21 - ACUTE AND CHRONIC RESPIRATORY FAILURE WITH HYPOXIA (4) Acute diastolic (congestive) heart failure Code(s): I50.31 - ACUTE DIASTOLIC (CONGESTIVE) HEART FAILURE (5) Acute on chronic respiratory failure with hypoxia and hypercapnia Code(s): J96.21 - ACUTE AND CHRONIC RESPIRATORY FAILURE WITH HYPOXIA; J96.22 - ACUTE AND CHRONIC RESPIRATORY FAILURE WITH HYPERCAPNIA (6) Diastolic dysfunction Code(s): I51.9 - HEART DISEASE, UNSPECIFIED (7) Hyperlipidemia Code(s): E78.5 - HYPERLIPIDEMIA, UNSPECIFIED Qualifiers: Hyperlipidemia type: pure hypercholesterolemia Qualified Code(s): E78.00 - Pure hypercholesterolemia, unspecified; E78.0 - Pure hypercholesterolemia (8) Hypertension Code(s): I10 - ESSENTIAL (PRIMARY) HYPERTENSION Qualifiers: Hypertension type: essential hypertension Qualified Code(s): I10 - Essential (primary) hypertension (9) Hypothyroidism Code(s): E03.9 - HYPOTHYROIDISM, UNSPECIFIED Qualifiers: Hypothyroidism type: unspecified Qualified Code(s): E03.9 - Hypothyroidism , unspecified (10) Pneumonia Code(s): J18.9 - PNEUMONIA, UNSPECIFIED ORGANISM (11) Shortness of breath Code(s): R06.02 - SHORTNESS OF BREATH (12) Sleep apnea Code(s): G47.30 - SLEEP APNEA, UNSPECIFIED Qualifiers: Sleep apnea type: unspecified type Qualified Code(s): G47.30 - Sleep apnea , unspecified Assessment/Plan 1. Acute on chronic hypoxic and hypercapneic respiratory failure 2. Chronic obstructive pulmonary disease exacerbation 3. Probable pneumonia 4. Post toxic metabolic enchelopathy 5. CAD coronary artery calcification angina pectoris 6. Diastolic LV dysfunction with chronic class I NYHA classification LV failure 7. HTN/HCVD 8. Hypercholesterolemia/mixed dyslipidemia 9. Hypothyroidism 10. Right hand hematoma 11. Pre-renal azotemia resolving 12. Anemia and thrombocytopenia 13. OSAS PLAN: 1. Losartan 25 mg QD hemodynamics permitting 2. Diuretics if needed 3. Continue ASA 81 mg QD 4. Continue Crestor 5 mg QHS 5. Continue pulmonary treatment. Put on CPAP this am 6. Empiric antibiotic course 7. DVT and GI prophylaxis Guarded Wilson Gill MD
[2018-05-27] MEDS: LOSARTAN POTASSIUM 25 MG TABLET PO SCH (10:29)
[2018-05-27 11:18] LABS: ANISOCYTOSIS 1+; MACROCYTOSIS 1+; PLATELET ESTIMATE DECREASED
[2018-05-27 13:15] VITALS: BMI 29.2
--- NOTE | 2018-05-27 14:46 | PN ---
Progress Note (short form) - Note Progress Note: less sob +cough +bm feels a bit better no chills or fever pen allergy- welts Vital Signs Period Temp Pulse Resp BP Sys/Domínguez Pulse Ox Last 24 Hr 97.4 F-98.8 F 98-110 18-24 119-137/64-77 93-97 cor-rrr lungs bilateral rhonchi abd soft,nt ext ecchymoses, hematoma right hand CBC, BMP 05/27/18 06:43 05/27/18 06:43 Microbiology 05/25/18 18:47 Urine For Antigen Detection Legionella Antigen - Final 05/25/18 18:47 Urine For Antigen Detection Streptococcus pneumoniae Antigen (M - Final 05/19/18 16:27 Blood - Peripheral Venous Blood Culture - Final NO GROWTH AFTER 5 DAYS INCUBATION 05/19/18 16:27 Blood - Peripheral Venous Blood Culture - Final NO GROWTH AFTER 5 DAYS INCUBATION 05/20/18 13:35 Urine - Urine Clean Catch Urine Culture - Final Enterococcus Faecalis a/p copd exacerbation pen allergy RLL pneumonia- Positive pneumococcal antigen continue levaquin day #3 sputum culture unable to obtain blood cultures yesterday, now on day #3 antiibiotics
--- NOTE | 2018-05-27 14:50 | PN ---
Progress Note (short form) - Note Progress Note: Mildly tachypneic at rest. Non-productive cough Describes heaviness on her chest for the past 3 days. Using NIPPV overnight. Intake & Output 05/24/18 05/25/18 05/26/18 05/27/18 23:59 23:59 23:59 23:59 Intake Total 220 880 360 Balance 220 880 360 Weight 145 lb Last Vital Signs Temp Pulse Resp BP Pulse Ox 97.6 F 104 H 24 H 119/64 93 L 05/27/18 09:00 05/27/18 09:00 05/27/18 09:00 05/27/18 09:00 05/27/18 08:43 Active Medications Acetaminophen (Tylenol -) 650 mg PO Q6H PRN PRN Reason: PAIN 1-7 Last Admin: 05/22/18 22:12 Dose: 650 mg Albuterol Sulfate (Ventolin 0.083% Nebulizer Soln -) 1 amp NEB Q8H PRN PRN Reason: SHORT OF BREATH/WHEEZING Last Admin: 05/27/18 02:35 Dose: 1 amp Albuterol Sulfate (Ventolin Hfa Inhaler -) 1 puff IH Q6H PRN PRN Reason: ASTHMA Aspirin (Asa -) 81 mg PO DAILY [facility] Last Admin: 05/27/18 09:26 Dose: 81 mg Heparin Sodium (Porcine) (Heparin -) 5,000 unit SQ BID [facility] Last Admin: 05/25/18 09:31 Dose: Not Given Levofloxacin (Levaquin 500 Mg Premixed Ivpb -) 500 mg in 100 mls @ 100 mls/hr IVPB Q24H [facility]; Protocol Last Admin: 05/26/18 17:18 Dose: 100 mls/hr Insulin Aspart (Novolog Vial Sliding Scale -) 1 vial SQ ACHS [facility]; Protocol Last Admin: 05/27/18 12:21 Dose: 8 units Levothyroxine Sodium (Synthroid -) 75 mcg PO DAILY@0700 [facility] Last Admin: 05/27/18 06:31 Dose: 75 mcg Losartan Potassium (Cozaar -) 25 mg PO DAILY [facility] Last Admin: 05/27/18 10:29 Dose: 25 mg Methylprednisolone Sodium Succinate (Solu-Medrol -) 40 mg IVPUSH Q8H-IV [facility] Last Admin: 05/27/18 09:26 Dose: 40 mg Montelukast Sodium (Singulair -) 10 mg PO HS [facility] Last Admin: 05/26/18 22:33 Dose: 10 mg Pantoprazole Sodium (Protonix -) 20 mg PO DAILY [facility] Last Admin: 05/27/18 09:26 Dose: 20 mg Potassium Chloride (K-Dur -) 10 meq PO BID [facility] Last Admin: 05/27/18 09:26 Dose: 10 meq Roflumilast (Daliresp -) 500 mcg PO DAILY [facility] Last Admin: 05/27/18 09:26 Dose: 500 mcg Rosuvastatin Calcium (Crestor -) 5 mg PO HS [facility] Last Admin: 05/26/18 22:33 Dose: 5 mg Constitutional: Yes: Awake and alert, mildly dyspneic at rest Eyes: Yes: WNL HENT: Yes: WNL Neck: Yes: WNL Cardiovascular: Yes: Regular Rate and Rhythm, S1, S2 Respiratory: Yes: diminished throughout, bibasilr rhonchi/crackles, (-) wheeze Gastrointestinal: Yes: WNL Extremities: Yes: right hand ecchymotic Edema: No Labs: Laboratory Results - last 24 hr 05/25/18 05/26/18 05/26/18 05:30 06:20 17:15 WBC RBC Hgb Hct MCV MCH MCHC RDW Plt Count MPV Absolute Neuts (auto) Neutrophils % Neutrophils % (Manual) Band Neutrophils % Lymphocytes % Lymphocytes % (Manual) Monocytes % Monocytes % (Manual) Eosinophils % Eosinophils % (Manual) Basophils % Basophils % (Manual) Myelocytes % (Man) Promyelocytes % (Man) Blast Cells % (Manual) Nucleated RBC % Metamyelocytes Hypochromia Platelet Estimate Polychromasia Poikilocytosis Anisocytosis Microcytosis Macrocytosis Stomatocytes Sodium Potassium Chloride Carbon Dioxide Anion Gap BUN Creatinine Creat Clearance w eGFR POC Glucometer 360 Random Glucose Calcium Iron 44 TIBC 178 L Iron Saturation 25 Transferrin 135 L Total Bilirubin AST ALT Alkaline Phosphatase CK-BB (CK-1) 0 CK/CKMB % Calc 0 Total Protein Albumin 05/26/18 05/27/18 05/27/18 22:30 06:28 06:43 WBC 15.0 H RBC 3.10 L Hgb 9.1 L Hct 29.5 L MCV 95.1 MCH 29.4 MCHC 31.0 L RDW 13.6 Plt Count 126 L MPV 9.1 Absolute Neuts (auto) 14.5 H Neutrophils % 96.4 H Neutrophils % (Manual) 94.0 H Band Neutrophils % 3.0 Lymphocytes % 0.5 L Lymphocytes % (Manual) 0.0 L Monocytes % 2.6 L Monocytes % (Manual) 2 L D Eosinophils % 0.0 Eosinophils % (Manual) 0.0 Basophils % 0.5 Basophils % (Manual) 0.0 Myelocytes % (Man) 1 D Promyelocytes % (Man) 0 Blast Cells % (Manual) 0 Nucleated RBC % 0 Metamyelocytes 0 D Hypochromia 0 Platelet Estimate Decreased Polychromasia 0 Poikilocytosis 0 Anisocytosis 1+ Microcytosis 0 Macrocytosis 1+ Stomatocytes 1+ Sodium Potassium Chloride Carbon Dioxide Anion Gap BUN Creatinine Creat Clearance w eGFR POC Glucometer 276 166 Random Glucose Calcium Iron TIBC Iron Saturation Transferrin Total Bilirubin AST ALT Alkaline Phosphatase CK-BB (CK-1) CK/CKMB % Calc Total Protein Albumin 05/27/18 05/27/18 06:43 12:01 WBC RBC Hgb Hct MCV MCH MCHC RDW Plt Count MPV Absolute Neuts (auto) Neutrophils % Neutrophils % (Manual) Band Neutrophils % Lymphocytes % Lymphocytes % (Manual) Monocytes % Monocytes % (Manual) Eosinophils % Eosinophils % (Manual) Basophils % Basophils % (Manual) Myelocytes % (Man) Promyelocytes % (Man) Blast Cells % (Manual) Nucleated RBC % Metamyelocytes Hypochromia Platelet Estimate Polychromasia Poikilocytosis Anisocytosis Microcytosis Macrocytosis Stomatocytes Sodium 138 Potassium 4.9 Chloride 79 L Carbon Dioxide 55 H Anion Gap 4 L BUN 31 H Creatinine 0.7 Creat Clearance w eGFR > 60 POC Glucometer 310 Random Glucose 177 H Calcium 8.5 Iron TIBC Iron Saturation Transferrin Total Bilirubin 0.7 AST 34 ALT 41 Alkaline Phosphatase 136 H CK-BB (CK-1) CK/CKMB % Calc Total Protein 4.8 L Albumin 2.1 L Problem List - Problems (1) Altered mental status Code(s): R41.82 - ALTERED MENTAL STATUS, UNSPECIFIED Qualifiers: Altered mental status type: disorientation Qualified Code(s): R41.0 - Disorientation, unspecified (2) COPD exacerbation Code(s): J44.1 - CHRONIC OBSTRUCTIVE PULMONARY DISEASE W (ACUTE) EXACERBATION (3) Acute on chronic respiratory failure with hypoxia and hypercapnia Code(s): J96.21 - ACUTE AND CHRONIC RESPIRATORY FAILURE WITH HYPOXIA; J96.22 - ACUTE AND CHRONIC RESPIRATORY FAILURE WITH HYPERCAPNIA (4) CHF (congestive heart failure) Code(s): I50.9 - HEART FAILURE, UNSPECIFIED (5) COPD exacerbation Code(s): J44.1 - CHRONIC OBSTRUCTIVE PULMONARY DISEASE W (ACUTE) EXACERBATION (6) Diastolic dysfunction Code(s): I51.9 - HEART DISEASE, UNSPECIFIED (7) Sleep apnea Code(s): G47.30 - SLEEP APNEA, UNSPECIFIED Assessment/Plan IMP ACUTE ON CHRONIC HYPOXEMIC HYPERCAPNEIC RESPIRATORY FAILURE COPD O2 DEPENDENT PNEUMONIA ALTERED MENTAL STATUS CHF HYPOTHYROID NAVDEEP BILATERAL HAP PLAN STEROID ABX PER ID INHALED BRONCHODILATORS O2 NIPPV AT NIGHT AND PRN WILL NEED RADIOGRAPHIC FOLLOW UP AFTER DISCHARGE DUE TO ADVANCING COPD, SHE WILL LIKELY NEED A TRACH IN THE SHORT TERM DR IVEY
--- NOTE | 2018-05-27 16:20 | PN ---
Progress Note (short form) - Note Progress Note: PROGRESS NOTE FOR HEMATOLOGY/ONCOLOGY Patient seen and examined by me at bedside No acute events overnight Patient less short of breath but still tachypneic at rest Continues to have cough Otherwise, denies any fever, chills, nausea,vomiting, chest pain, dizziness, melena, hematochezia, dysuria, hematuria Vital Signs Temperature 97.4 F L 05/27/18 15:19 Pulse Rate 102 H 05/27/18 15:19 Respiratory Rate 22 H 05/27/18 15:19 Blood Pressure 98/55 L 05/27/18 15:19 O2 Sat by Pulse Oximetry (%) 94 L 05/27/18 14:42 PHYSICAL EXAMINATION: GENERAL: Awake, alert, and fully oriented, in no acute distress. EYES: Pupils equal, round and reactive to light, extraocular movements intact, sclera anicteric, conjunctiva clear ENT: Oropharynx clear without exudates. Moist mucous membranes. LUNGS: On NC with accessory muscle use. Scattered Rhonchi throughout lung bases bilaterally HEART: Tachycardic with regular rhythm, normal S1 and S2. JUAN LUIS' ABDOMEN: Soft, Obese nontender, not distended, normoactive bowel sounds, no guarding, no rebound, no masses. No hepatomegaly or splenomegaly. (+) Multiple scattered ecchymosis EXTREMITIES: No peripheral edema. SKIN: Warm, dry, normal turgor, (+) several echymosis. Laboratory Tests 05/28/18 05:30 05/28/18 05:30 ASSESSMENT/PLAN: Patient is a 57 year old female who presented for AMS, lethargy and shortness of breath and was found to have COPD exacerbation. Throughout hospitalization, patient was found to have anemia and thrombocytopenia and we were consulted for further evaluation and recommendations. Problem List: Anemia of chronic disease Thrombocytopenia may be 2/2 to underlying infection COPD on Acute on chronic hypoxic and hypercapneic respiratory failure Altered mental status Toxic metabolic enchelopathy CAD Diastolic LV dysfunction HTN HLD Hypothyroidism Right hand hematoma PLAN: -Patient had elevated LDH on the and will repeat studies for hemolysis, which includes Hapto, LDH, RETIC, and elise test -Iron studies compatible with anemia of chronic disease -Thrombocytopenia may be secondary to underlying infection -Continue to monitor
--- NOTE | 2018-05-27 19:00 | CON.ENT ---
Consult Consult Specialty:: ENT Referred by:: Dr. Taylor Reason for Consultation:: nasal congestion, sinus infection - History of Present Illness Chief Complaint: nasal congestion and sinus infection History of Present Illness: 57 yo F with advanced COPD, (discussion of lung transplant candidacy), on O2, known NAVDEEP on CPAP at home, had headache, CT scan showed sphenoid sinusitis, on IV antibiotics Vanco then Levaquin, headache now improved has nasal congestion, blows out mucus, sl blood tinged,smell sense and taste reduced, poor appetite - History Source History Provided By: Patient, Medical Record Limitations to Obtaining History: No Limitations - Past Medical History Cardio/Vascular: Yes: CHF, HTN, Hyperlipdemia Pulmonary: Yes: COPD, O2 Dependent, Sleep Apnea ...LMP: 06/03/14 ...: No Infectious Disease: Yes: Other (pneumonia) Musculoskeletal: Yes: Chronic low back pain Endocrine: Yes: Hypothyroidism - Alcohol/Substance Use Hx Alcohol Use: No History of Substance Use: reports: None - Smoking History Smoking history: Never smoked Have you smoked in the past 12 months: No If you are a former smoker, when did you quit?: 8 years ago - Social History ADL: Family Assistance History of Recent Travel: No Home Medications - Allergies Allergies/Adverse Reactions: Allergies Allergy/AdvReac Type Severity Reaction Status Date / Time Penicillins Allergy Severe Difficulty Verified 05/19/18 16:04 Breathing - Home Medications Home Medications: Ambulatory Orders Levothyroxine [Synthroid -] 100 mcg PO DAILY@0700 tablet 06/24/17 Losartan Potassium [Cozaar -] 25 mg PO DAILY #30 tablet 06/24/17 Roflumilast [Daliresp] 500 mcg PO DAILY #30 tablet 06/24/17 Escitalopram Oxalate [Lexapro -] 10 mg PO DAILY 08/31/17 Potassium Chloride [K-Dur -] 10 meq PO DAILY 08/31/17 Aspirin [ASA -] 81 mg PO DAILY 02/01/18 Albuterol Sulfate Inhaler - [Ventolin HFA Inhaler -] 1 - 2 inh PO Q6H PRN Montelukast Sodium [Singulair] 10 mg PO DAILY 04/05/18 Rosuvastatin [Crestor -] 5 mg PO HS 04/05/18 Albuterol 0.083% Nebulizer Colette [Ventolin 0.083% Nebulizer Soln -] 1 amp NEB TID PRN 05/06/18 Acetaminophen [Tylenol .Regular Strength -] 650 mg PO Q6H PRN tablet 05/16/18 Furosemide [Lasix -] 20 mg PO DAILY tablet 05/16/18 Physical Exam-ENT Vital Signs: Vital Signs Temperature 97.4 F L 05/27/18 15:19 Pulse Rate 102 H 05/27/18 15:19 Respiratory Rate 22 H 05/27/18 15:19 Blood Pressure 98/55 L 05/27/18 15:19 O2 Sat by Pulse Oximetry (%) 94 L 05/27/18 14:42 Constitutional: Yes: No Distress, Calm Head: Yes: WNL Face: Yes: Other (Cushingoid) Eyes: Yes: WNL Nose: Yes: Septum Deviated (dry mucosa with crusting right, nasal endoscopy: no polyp, scant dry secretions, inferior and middle turbinates WNL, superior turbinates and superior meati not well visualized, middle meati and sphenoethmoid recesses WNL, nasopharynx not visualized), Other Oral/Pharynx: Yes: Other (tongue position 3, oropharynx narrow, voice clear, no stridor or respiratory distress) Outer Ear: Yes: WNL Ear Canal: Yes: WNL Imaging - Results Cat Scan: Report Reviewed, Image Reviewed (deviated nasal septum to right, sphenoid sinusitis) Problem List - Problems (1) Nasal congestion Assessment/Plan: pt has nasal congestion, deviated septum to right, nasal dryness (aggravated by nasal oxygen use) sphenoid sinusitis found on CT scan on IV antibiotics, headache improved Recommend: continue antibiotics nasal saline spray, ordered humidify oxygen source Code(s): R09.81 - NASAL CONGESTION (2) Sleep apnea Assessment/Plan: continue CPAP/BIPAP as per pulmonary Thank you for consultation, Keshawn Wakefield MD FACS Code(s): G47.30 - SLEEP APNEA, UNSPECIFIED Qualifiers: Sleep apnea type: unspecified type Qualified Code(s): G47.30 - Sleep apnea , unspecified
[2018-05-27] MEDS: MONTELUKAST NA 10 MG TABLET PO SCH (22:36)
[2018-05-27] MEDS: SODIUM CHLORIDE NASAL SPRAY 44 ML BOTTLE NS SCH (22:36)
[2018-05-27] MEDS: ROSUVASTATIN CA 5 MG TABLET (FP) PO SCH (22:36)
[2018-05-28] MEDS: methylPREDNISolone NA SUCC 40 MG/1 ML VIAL IVPUSH SCH ×3 (02:09→17:23)
[2018-05-28] MEDS: LEVOTHYROXINE NA 75 MCG TABLET (FP) PO SCH (06:18)
[2018-05-28] MEDS: INSULIN SLIDING SCALE (NOVOLOG) 1 VIAL SQ SCH ×4 (06:23→22:43)
[2018-05-28 06:27] LABS: BASO % 0.2 % (0-2.0); HEMATOCRIT 25.9 % (32.4-45.2); HEMOGLOBIN 8.1 GM/dL (10.7-15.3); LYMPH % 0.5 % (8-40); MCH 29.4 pg (25.7-33.7); MCHC 31.3 g/dl (32.0-36.0); MEAN CELL VOLUME 93.9 fl (80-96); MEAN PLT VOLUME 9.4 fl (7.5-11.1); MONO % 2.6 % (3.8-10.2); NEUT % 96.7 % (42.8-82.8); PLATELET COUNT 110 K/MM3 (134-434); RBC 2.76 M/mm3 (3.60-5.2); RDW 13.5 % (11.6-15.6); WHITE BLOOD COUNT 14.4 K/mm3 (4.0-10.0)
--- NOTE | 2018-05-28 07:11 | PN ---
Progress Note, Physician Chief Complaint: in bed NAD no new c/o when she allows bipap use her breathing, mental status and tremors are improved - Current Medication List Current Medications: Active Medications Acetaminophen (Tylenol -) 650 mg PO Q6H PRN PRN Reason: PAIN 1-7 Last Admin: 05/22/18 22:12 Dose: 650 mg Albuterol Sulfate (Ventolin 0.083% Nebulizer Soln -) 1 amp NEB Q8H PRN PRN Reason: SHORT OF BREATH/WHEEZING Last Admin: 05/27/18 02:35 Dose: 1 amp Albuterol Sulfate (Ventolin Hfa Inhaler -) 1 puff IH Q6H PRN PRN Reason: ASTHMA Aspirin (Asa -) 81 mg PO DAILY [facility] Last Admin: 05/27/18 09:26 Dose: 81 mg Heparin Sodium (Porcine) (Heparin -) 5,000 unit SQ BID [facility] Last Admin: 05/25/18 09:31 Dose: Not Given Levofloxacin (Levaquin 500 Mg Premixed Ivpb -) 500 mg in 100 mls @ 100 mls/hr IVPB Q24H [facility]; Protocol Last Admin: 05/27/18 17:19 Dose: 100 mls/hr Insulin Aspart (Novolog Vial Sliding Scale -) 1 vial SQ ACHS [facility]; Protocol Last Admin: 05/28/18 06:23 Dose: Not Given Levothyroxine Sodium (Synthroid -) 75 mcg PO DAILY@0700 [facility] Last Admin: 05/28/18 06:18 Dose: 75 mcg Losartan Potassium (Cozaar -) 25 mg PO DAILY [facility] Last Admin: 05/27/18 10:29 Dose: 25 mg Methylprednisolone Sodium Succinate (Solu-Medrol -) 40 mg IVPUSH Q8H-IV [facility] Last Admin: 05/28/18 02:09 Dose: 40 mg Montelukast Sodium (Singulair -) 10 mg PO HS [facility] Last Admin: 05/27/18 22:36 Dose: 10 mg Pantoprazole Sodium (Protonix -) 20 mg PO DAILY [facility] Last Admin: 05/27/18 09:26 Dose: 20 mg Potassium Chloride (K-Dur -) 10 meq PO BID [facility] Last Admin: 05/27/18 22:36 Dose: 10 meq Roflumilast (Daliresp -) 500 mcg PO DAILY [facility] Last Admin: 05/27/18 09:26 Dose: 500 mcg Rosuvastatin Calcium (Crestor -) 5 mg PO HS [facility] Last Admin: 05/27/18 22:36 Dose: 5 mg Sodium Chloride ([place] Nasal [place] -) 2 spray NS BID [facility] Last Admin: 05/27/18 22:36 Dose: Not Given - Objective Vital Signs: Vital Signs Temperature 98.1 F 05/28/18 05:58 Pulse Rate 87 05/28/18 05:58 Respiratory Rate 20 05/28/18 05:58 Blood Pressure 117/70 05/28/18 05:58 O2 Sat by Pulse Oximetry (%) 98 05/27/18 22:10 Constitutional: Yes: No Distress, Calm Eyes: Yes: Conjunctiva Clear HENT: Yes: Atraumatic Neck: Yes: Supple Cardiovascular: Yes: Regular Rate and Rhythm Respiratory: Yes: Rales Gastrointestinal: Yes: Soft. No: Distention Genitourinary: No: CVA Tenderness - Left, CVA Tenderness - Right Musculoskeletal: No: Joint Stiffness, Joint Swelling Extremities: Yes: Other (R hand hematoma smaller) Edema: No Integumentary: Yes: Bruising. No: Rash, Venous Stasis Changes Neurological: Yes: WNL, Alert, Oriented ...Motor Strength: WNL Psychiatric: Yes: WNL, Alert, Oriented. No: Agitated, Suicidal Ideation Labs: CBC, BMP 05/28/18 05:30 INR, PTT INR 0.97 (0.83-1.09) 05/19/18 16:15 - ....Imaging Other: Report Reviewed Assessment/Plan The patient is a 57F w/ a history of severe advanced COPD O2 dependant and frequent Bipap use, HTN, CAD, hypothyroidism admitted with acute on chronic COPD exacerbation. s/p Fall. Sinusitis, PNA pulmonary, neurology, ID f/u and ENT f/u iv steroids, nebs, O2, Bipap; in antibiotics per ID gastric pfx while on steroids; BGM and GLU control while on steroids R hand hematoma improved; restarted sq heparin labs f/u low PLT, anemia: heme f/u; falls decubs DVT PFX prognosis guarded might need mechanical ventilation, tracheostomy d/w pt and staff
[2018-05-28] MEDS: ALBUTEROL SO4 0.083% IH SOL 2.5 MG/3 ML VIAL.NEB. NEB PRN ×4 (07:20→20:18)
[2018-05-28 07:30] LABS: BLOOD UREA NITROGEN 27 mg/dL (7-18); CALCIUM 7.9 mg/dL (8.5-10.1); CHLORIDE 81 mmol/L (98-107); CREATININE 0.7 mg/dL (0.55-1.3); GLUCOSE,RANDOM 165 mg/dL (74-106); POTASSIUM 4.3 mmol/L (3.5-5.1); SODIUM 137 mmol/L (136-145)
[2018-05-28 09:18] LABS: ANION GAP 0 MMOL/L (8-16); CO2 56 mmol/L (21-32)
[2018-05-28] MEDS ORDERED: PT OWN MED DRAWER 7, Y5N ONE ×2 (09:25→18:12)
[2018-05-28] MEDS: ROFLUMILAST 500 MCG TABLET PO SCH (09:27)
[2018-05-28] MEDS: POTASSIUM CHLORIDE TABS 10 MEQ TABLET.ER (FP) PO SCH ×2 (09:27→22:42)
[2018-05-28] MEDS: PANTOPRAZOLE 20 MG TABLET (FP) PO SCH (09:27)
[2018-05-28] MEDS: ASPIRIN 81 MG CHEWABLE TABLETS PO SCH (09:27)
[2018-05-28] MEDS: LOSARTAN POTASSIUM 25 MG TABLET PO SCH (09:27)
[2018-05-28] MEDS: SODIUM CHLORIDE NASAL SPRAY 44 ML BOTTLE NS SCH ×2 (09:28→22:42)
--- NOTE | 2018-05-28 09:49 | PN ---
Progress Note (short form) - Note Progress Note: Neurology History of Present Illness 57F w/ a history of COPD (2L NC at home), HTN, CAD, hypothyroidism who presents from [facility] for evaluation of increasing respiratory distress and associated confusion/lethargy. The patient was recently admitted for a COPD exacerbation. According to notes the family reported when the patient is having an exacerbation, it is typical for her to become confused. She was admitted and Pulmonary following closely. Patient experienced fall last night, hospitalist note reviewed, with head pain. CT head completed and without acute changes. Neurologically without focal deficits. Getting ongoing medical mgmt. Is able to tell me she's at [place], thought it was may but knows the year. More alert and awake, interactive, less respiratory distress this AM while eating. ENT note reviewed and discussed with patient, nasal congestion, ABx and saline spray recommended. Allergies/Adverse Reactions: Allergies Allergy/AdvReac Type Severity Reaction Status Date / Time Penicillins Allergy Severe Difficulty Verified 05/19/18 16:04 Breathing Active Medications Acetaminophen (Tylenol -) 650 mg PO Q6H PRN PRN Reason: PAIN 1-7 Last Admin: 05/22/18 22:12 Dose: 650 mg Albuterol Sulfate (Ventolin 0.083% Nebulizer Soln -) 1 amp NEB Q8H PRN PRN Reason: SHORT OF BREATH/WHEEZING Last Admin: 05/28/18 07:20 Dose: 1 amp Albuterol Sulfate (Ventolin Hfa Inhaler -) 1 puff IH Q6H PRN PRN Reason: ASTHMA Aspirin (Asa -) 81 mg PO DAILY [facility] Last Admin: 05/28/18 09:27 Dose: 81 mg Heparin Sodium (Porcine) (Heparin -) 5,000 unit SQ BID [facility] Last Admin: 05/25/18 09:31 Dose: Not Given Levofloxacin (Levaquin 500 Mg Premixed Ivpb -) 500 mg in 100 mls @ 100 mls/hr IVPB Q24H [facility]; Protocol Last Admin: 05/27/18 17:19 Dose: 100 mls/hr Insulin Aspart (Novolog Vial Sliding Scale -) 1 vial SQ ACHS [facility]; Protocol Last Admin: 05/28/18 06:23 Dose: Not Given Levothyroxine Sodium (Synthroid -) 75 mcg PO DAILY@0700 [facility] Last Admin: 05/28/18 06:18 Dose: 75 mcg Losartan Potassium (Cozaar -) 25 mg PO DAILY [facility] Last Admin: 05/28/18 09:27 Dose: 25 mg Methylprednisolone Sodium Succinate (Solu-Medrol -) 40 mg IVPUSH Q8H-IV [facility] Last Admin: 05/28/18 09:26 Dose: 40 mg Montelukast Sodium (Singulair -) 10 mg PO HS [facility] Last Admin: 05/27/18 22:36 Dose: 10 mg Pantoprazole Sodium (Protonix -) 20 mg PO DAILY [facility] Last Admin: 05/28/18 09:27 Dose: 20 mg Potassium Chloride (K-Dur -) 10 meq PO BID [facility] Last Admin: 05/28/18 09:27 Dose: 10 meq Roflumilast (Daliresp -) 500 mcg PO DAILY [facility] Last Admin: 05/28/18 09:27 Dose: 500 mcg Rosuvastatin Calcium (Crestor -) 5 mg PO HS [facility] Last Admin: 05/27/18 22:36 Dose: 5 mg Sodium Chloride ([place] Nasal [place] -) 2 spray NS BID [facility] Last Admin: 05/28/18 09:28 Dose: 2 spray *Physical Exam Vital Signs Period Temp Pulse Resp BP Sys/Domínguez Pulse Ox Last 24 Hr 97.4 F-98.1 F 85-106 18-24 98-166/55-70 94-98 GENERAL: Awake, easily arousable to voice, oriented to self, not telling me location, month, or year HEAD: No signs of trauma, normocephalic, atraumatic EYES: PERRLA, EOMI ENT: Hearing grossly normal, nares patent, oropharynx clear without exudates. Moist mucosa LUNGS: on 4LNC (2LNC at home); moderate diffuse wheeze b/l HEART: Tachycardia with regular rhythm, normal S1 and S2, no murmurs appreciated , peripheral pulses normal and equal bilaterally ABDOMEN: Soft, nontender, normoactive bowel sounds. No guarding, no rebound EXTREMITIES : 2+ BLE edema to knee; RUE hand and forearm hematoma, Normal range of motion NEUROLOGICAL: Cranial nerves II through XII grossly intact. no focal sensorimotor deficits, finger to nose normal, gait deferred CBCD WBC 14.4 K/mm3 (4.0-10.0) H 05/28/18 05:30 RBC 2.76 M/mm3 (3.60-5.2) L 05/28/18 05:30 Hgb 8.1 GM/dL (10.7-15.3) L 05/28/18 05:30 Hct 25.9 % (32.4-45.2) L 05/28/18 05:30 MCV 93.9 fl (80-96) 05/28/18 05:30 MCHC 31.3 g/dl (32.0-36.0) L 05/28/18 05:30 RDW 13.5 % (11.6-15.6) 05/28/18 05:30 Plt Count 110 K/MM3 (134-434) L 05/28/18 05:30 MPV 9.4 fl (7.5-11.1) 05/28/18 05:30 CMP Sodium 137 mmol/L (136-145) 05/28/18 05:30 Potassium 4.3 mmol/L (3.5-5.1) 05/28/18 05:30 Chloride 81 mmol/L (98-107) L 05/28/18 05:30 Carbon Dioxide 56 mmol/L (21-32) H 05/28/18 05:30 Anion Gap 0 MMOL/L (8-16) L 05/28/18 05:30 BUN 27 mg/dL (7-18) H 05/28/18 05:30 Creatinine 0.7 mg/dL (0.55-1.3) 05/28/18 05:30 Creat Clearance w eGFR > 60 (>60) 05/28/18 05:30 Random Glucose 165 mg/dL (74-106) H 05/28/18 05:30 Calcium 7.9 mg/dL (8.5-10.1) L 05/28/18 05:30 Total Bilirubin 0.7 mg/dL (0.2-1) 05/27/18 06:43 AST 34 U/L (15-37) 05/27/18 06:43 ALT 41 U/L (13-61) 05/27/18 06:43 Alkaline Phosphatase 136 U/L (45-117) H 05/27/18 06:43 Total Protein 4.8 g/dl (6.4-8.2) L 05/27/18 06:43 Albumin 2.1 g/dl (3.4-5.0) L 05/27/18 06:43 CARDIAC ENZYMES Creatine Kinase 23 IU/L (26-192) L 05/24/18 19:35 Troponin I 0.05 ng/ml (0.00-0.05) 05/25/18 05:30 Medical Decision Making 57F w/ a history of COPD (2L NC at home), HTN, CAD, hypothyroidism who presents from [facility] for evaluation of increasing respiratory distress and associated confusion/lethargy. The patient was recently admitted for a COPD exacerbation. According to notes the family reported when the patient is having an exacerbation, it is typical for her to become confused. She was admitted and Pulmonary following closely. Fall overnight with head pain but no focal deficits , CT head completed and without acute changes. ENT note reviewed. Is alert and interactive now, neurologically stable. Likely AMS, Toxic metabolic encephalopathy 2/2 respiratory distress, continue optimization of COPD. Increased hydration, monitor BP, maintain normotensive range.
[2018-05-28 11:16] LABS: ANISOCYTOSIS 1+; MACROCYTOSIS 0; PLATELET ESTIMATE DECREASED
--- NOTE | 2018-05-28 11:44 | PN ---
Progress Note, Physician History of Present Illness: Non-productive cough, wheezes and dyspnea slowly improving. - Current Medication List Current Medications: Active Medications Acetaminophen (Tylenol -) 650 mg PO Q6H PRN PRN Reason: PAIN 1-7 Last Admin: 05/22/18 22:12 Dose: 650 mg Albuterol Sulfate (Ventolin 0.083% Nebulizer Soln -) 1 amp NEB Q8H PRN PRN Reason: SHORT OF BREATH/WHEEZING Last Admin: 05/28/18 11:15 Dose: 1 amp Albuterol Sulfate (Ventolin Hfa Inhaler -) 1 puff IH Q6H PRN PRN Reason: ASTHMA Aspirin (Asa -) 81 mg PO DAILY [facility] Last Admin: 05/28/18 09:27 Dose: 81 mg Heparin Sodium (Porcine) (Heparin -) 5,000 unit SQ BID [facility] Last Admin: 05/25/18 09:31 Dose: Not Given Levofloxacin (Levaquin 500 Mg Premixed Ivpb -) 500 mg in 100 mls @ 100 mls/hr IVPB Q24H [facility]; Protocol Last Admin: 05/27/18 17:19 Dose: 100 mls/hr Insulin Aspart (Novolog Vial Sliding Scale -) 1 vial SQ ACHS [facility]; Protocol Last Admin: 05/28/18 11:29 Dose: 6 units Levothyroxine Sodium (Synthroid -) 75 mcg PO DAILY@0700 [facility] Last Admin: 05/28/18 06:18 Dose: 75 mcg Losartan Potassium (Cozaar -) 25 mg PO DAILY [facility] Last Admin: 05/28/18 09:27 Dose: 25 mg Methylprednisolone Sodium Succinate (Solu-Medrol -) 40 mg IVPUSH Q8H-IV [facility] Last Admin: 05/28/18 09:26 Dose: 40 mg Montelukast Sodium (Singulair -) 10 mg PO HS [facility] Last Admin: 05/27/18 22:36 Dose: 10 mg Pantoprazole Sodium (Protonix -) 20 mg PO DAILY [facility] Last Admin: 05/28/18 09:27 Dose: 20 mg Potassium Chloride (K-Dur -) 10 meq PO BID [facility] Last Admin: 05/28/18 09:27 Dose: 10 meq Roflumilast (Daliresp -) 500 mcg PO DAILY [facility] Last Admin: 05/28/18 09:27 Dose: 500 mcg Rosuvastatin Calcium (Crestor -) 5 mg PO HS [facility] Last Admin: 05/27/18 22:36 Dose: 5 mg Sodium Chloride ([place] Nasal [place] -) 2 spray NS BID [facility] Last Admin: 05/28/18 09:28 Dose: 2 spray - Objective Vital Signs: Vital Signs Temperature 97.9 F 05/28/18 08:58 Pulse Rate 85 05/28/18 08:58 Respiratory Rate 24 H 05/28/18 09:00 Blood Pressure 166/66 05/28/18 08:58 O2 Sat by Pulse Oximetry (%) 96 05/28/18 09:00 Constitutional: Yes: No Distress, Calm Neck: Yes: Supple Cardiovascular: Yes: Regular Rate and Rhythm Respiratory: Yes: Regular, Diminished, On Nasal O2 Gastrointestinal: Yes: Normal Bowel Sounds, Soft, Abdomen, Obese Edema: No Labs: CBC, BMP 05/28/18 05:30 05/28/18 05:30 INR, PTT INR 0.97 (0.83-1.09) 05/19/18 16:15 - ....Imaging EKG: Report Reviewed (Tele: SR) Problem List - Problems (1) COPD exacerbation Code(s): J44.1 - CHRONIC OBSTRUCTIVE PULMONARY DISEASE W (ACUTE) EXACERBATION (2) Acute on chronic respiratory failure with hypoxia and hypercapnia Code(s): J96.21 - ACUTE AND CHRONIC RESPIRATORY FAILURE WITH HYPOXIA; J96.22 - ACUTE AND CHRONIC RESPIRATORY FAILURE WITH HYPERCAPNIA (3) Diastolic dysfunction Code(s): I51.9 - HEART DISEASE, UNSPECIFIED (4) Hyperlipidemia Code(s): E78.5 - HYPERLIPIDEMIA, UNSPECIFIED Qualifiers: Hyperlipidemia type: pure hypercholesterolemia Qualified Code(s): E78.00 - Pure hypercholesterolemia, unspecified; E78.0 - Pure hypercholesterolemia (5) Hypertension Code(s): I10 - ESSENTIAL (PRIMARY) HYPERTENSION Qualifiers: Hypertension type: essential hypertension Qualified Code(s): I10 - Essential (primary) hypertension (6) Hypothyroidism Code(s): E03.9 - HYPOTHYROIDISM, UNSPECIFIED Qualifiers: Hypothyroidism type: unspecified Qualified Code(s): E03.9 - Hypothyroidism , unspecified (7) Shortness of breath Code(s): R06.02 - SHORTNESS OF BREATH (8) Sleep apnea Code(s): G47.30 - SLEEP APNEA, UNSPECIFIED Qualifiers: Sleep apnea type: unspecified type Qualified Code(s): G47.30 - Sleep apnea , unspecified Assessment/Plan 1. Acute on chronic hypoxic and hypercapneic respiratory failure 2. Home-O2 dependent Chronic obstructive pulmonary disease exacerbation 3. Probable pneumonia 4. Post toxic metabolic enchelopathy 5. CAD coronary artery calcification angina pectoris 6. Diastolic LV dysfunction with chronic class I NYHA classification LV failure 7. HTN/HCVD 8. Hypercholesterolemia/mixed dyslipidemia 9. Hypothyroidism 10. Right hand hematoma 11. Pre-renal azotemia resolving 12. Anemia and thrombocytopenia 13. OSAS PLAN: 1. Losartan 25 mg QD hemodynamics permitting 2. Diuretics if needed 3. Continue ASA 81 mg QD 4. Continue Crestor 5 mg QHS 5. BD, empiric antibiotic course, Singulair, Daliresp, IV steroids, NIPPV, O2 to maintain saO2 6. DVT and GI prophylaxis
--- NOTE | 2018-05-28 13:40 | PN ---
Progress Note (short form) - Note Progress Note: less sob +cough feels a bit better pen allergy- welts Vital Signs Period Temp Pulse Resp BP Sys/Domínguez Pulse Ox Last 24 Hr 97.4 F-98.1 F 85-106 18-24 98-166/55-70 94-98 cor-rrr lungs scattered rhonchi abd soft,nt ext +ecchymoses of the arms, hematoma of the right hand unchanged CBC, BMP 05/28/18 05:30 05/28/18 05:30 Microbiology 05/25/18 18:47 Urine For Antigen Detection Legionella Antigen - Final 05/25/18 18:47 Urine For Antigen Detection Streptococcus pneumoniae Antigen (M - Final 05/19/18 16:27 Blood - Peripheral Venous Blood Culture - Final NO GROWTH AFTER 5 DAYS INCUBATION 05/19/18 16:27 Blood - Peripheral Venous Blood Culture - Final NO GROWTH AFTER 5 DAYS INCUBATION 05/20/18 13:35 Urine - Urine Clean Catch Urine Culture - Final Enterococcus Faecalis Current Medications Acetaminophen (Tylenol -) 650 mg PO Q6H PRN PRN Reason: PAIN 1-7 Last Admin: 05/22/18 22:12 Dose: 650 mg Albuterol Sulfate (Ventolin 0.083% Nebulizer Soln -) 1 amp NEB Q8H PRN PRN Reason: SHORT OF BREATH/WHEEZING Last Admin: 05/28/18 11:15 Dose: 1 amp Albuterol Sulfate (Ventolin Hfa Inhaler -) 1 puff IH Q6H PRN PRN Reason: ASTHMA Aspirin (Asa -) 81 mg PO DAILY [facility] Last Admin: 05/28/18 09:27 Dose: 81 mg Heparin Sodium (Porcine) (Heparin -) 5,000 unit SQ BID [facility] Last Admin: 05/25/18 09:31 Dose: Not Given Levofloxacin (Levaquin 500 Mg Premixed Ivpb -) 500 mg in 100 mls @ 100 mls/hr IVPB Q24H [facility]; Protocol Last Admin: 05/27/18 17:19 Dose: 100 mls/hr Insulin Aspart (Novolog Vial Sliding Scale -) 1 vial SQ ACHS [facility]; Protocol Last Admin: 05/28/18 11:29 Dose: 6 units Levothyroxine Sodium (Synthroid -) 75 mcg PO DAILY@0700 [facility] Last Admin: 05/28/18 06:18 Dose: 75 mcg Losartan Potassium (Cozaar -) 25 mg PO DAILY [facility] Last Admin: 05/28/18 09:27 Dose: 25 mg Methylprednisolone Sodium Succinate (Solu-Medrol -) 40 mg IVPUSH Q8H-IV [facility] Last Admin: 05/28/18 09:26 Dose: 40 mg Montelukast Sodium (Singulair -) 10 mg PO HS [facility] Last Admin: 05/27/18 22:36 Dose: 10 mg Pantoprazole Sodium (Protonix -) 20 mg PO DAILY [facility] Last Admin: 05/28/18 09:27 Dose: 20 mg Potassium Chloride (K-Dur -) 10 meq PO BID [facility] Last Admin: 05/28/18 09:27 Dose: 10 meq Roflumilast (Daliresp -) 500 mcg PO DAILY [facility] Last Admin: 05/28/18 09:27 Dose: 500 mcg Rosuvastatin Calcium (Crestor -) 5 mg PO HS [facility] Last Admin: 05/27/18 22:36 Dose: 5 mg Sodium Chloride ([place] Nasal [place] -) 2 spray NS BID [facility] Last Admin: 05/28/18 09:28 Dose: 2 spray a/p RLL pneumonia- pneumococcal antigen positive continue levaquin Day #4 copd exacerbation pen allergy noted overall prognosis is poor
--- NOTE | 2018-05-28 14:57 | PN ---
Progress Note (short form) - Note Progress Note: PULMONARY WELL KNOWN BY OUR SERVICE Non-productive cough Using NIPPV overnight. Constitutional: Yes: Awake and alert, mildly dyspneic at rest Eyes: Yes: WNL HENT: Yes: WNL Neck: Yes: WNL Cardiovascular: Yes: Regular Rate and Rhythm, S1, S2 Respiratory: Yes: diminished throughout, bibasilr rhonchi/crackles, (-) wheeze Gastrointestinal: Yes: WNL Extremities: Yes: right hand ecchymotic Edema: No Labs: Reviewed meds/notes/images/micro reviewed - Problems (1) Altered mental status Code(s): R41.82 - ALTERED MENTAL STATUS, UNSPECIFIED Qualifiers: Altered mental status type: disorientation Qualified Code(s): R41.0 - Disorientation, unspecified (2) COPD exacerbation Code(s): J44.1 - CHRONIC OBSTRUCTIVE PULMONARY DISEASE W (ACUTE) EXACERBATION (3) Acute on chronic respiratory failure with hypoxia and hypercapnia Code(s): J96.21 - ACUTE AND CHRONIC RESPIRATORY FAILURE WITH HYPOXIA; J96.22 - ACUTE AND CHRONIC RESPIRATORY FAILURE WITH HYPERCAPNIA (4) CHF (congestive heart failure) Code(s): I50.9 - HEART FAILURE, UNSPECIFIED (5) COPD exacerbation Code(s): J44.1 - CHRONIC OBSTRUCTIVE PULMONARY DISEASE W (ACUTE) EXACERBATION (6) Diastolic dysfunction Code(s): I51.9 - HEART DISEASE, UNSPECIFIED (7) Sleep apnea Code(s): G47.30 - SLEEP APNEA, UNSPECIFIED IMP ACUTE ON CHRONIC HYPOXEMIC HYPERCAPNEIC RESPIRATORY FAILURE COPD O2 DEPENDENT PNEUMOCOCCAL PNEUMONIA ALTERED MENTAL STATUS CHF HYPOTHYROID NAVDEEP BILATERAL HAP PLAN STEROID ABX PER ID INHALED BRONCHODILATORS O2 NIPPV AT NIGHT AND PRN WILL NEED RADIOGRAPHIC FOLLOW UP AFTER DISCHARGE DUE TO ADVANCING COPD, SHE WILL LIKELY NEED A TRACH IN THE SHORT TERM Parul ALEGRE MD
--- NOTE | 2018-05-28 15:36 | PN ---
Teaching Attending Note Name of Resident: Flora Barillas ATTENDING PHYSICIAN STATEMENT I saw and evaluated the patient. I reviewed the resident's note and discussed the case with the resident. I agree with the resident's findings and plan as documented. SUBJECTIVE:Patient seen and examined Remains dyspneic and tachypneic Little change in respiratory status Last Vital Signs Temp Pulse Resp BP Pulse Ox 98.2 F 104 H 20 117/48 L 96 05/28/18 14:05 05/28/18 14:05 05/28/18 14:05 05/28/18 14:05 05/28/18 09:00 HEENT: PENG, EOM Intact Oropharynx: No thrush, No mucositis Cor: RSR, No murmurs, No gallops Lungs:diminished , rhonchi Abd: Soft, Normal bowel sounds, No organomegaly Ext:No significant edema Skin:numerous ecchymoses; shannan distal RUE CBC, BMP 05/28/18 05:30 05/28/18 05:30 Current Medications Generic Name Dose Route Start Last Admin Trade Name Freq PRN Reason Stop Dose Admin Acetaminophen 650 mg 05/19/18 20:32 05/22/18 22:12 Tylenol - PO 650 mg Q6H PRN Administration PAIN 1-7 Albuterol Sulfate 1 amp 05/19/18 20:32 05/28/18 11:15 Ventolin 0.083% Nebulizer Soln - NEB 1 amp Q8H PRN Administration SHORT OF BREATH/WHEEZING Albuterol Sulfate 1 puff 05/19/18 20:32 Ventolin Hfa Inhaler - IH Q6H PRN ASTHMA Aspirin 81 mg 05/20/18 10:00 05/28/18 09:27 Asa - PO 81 mg DAILY [facility] Administration Heparin Sodium (Porcine) 5,000 unit 05/19/18 22:00 05/25/18 09:31 Heparin - SQ Not Given BID [facility] Levofloxacin 500 mg in 100 mls @ 100 mls/hr 05/25/18 18:15 05/27/18 17:19 Levaquin 500 Mg Premixed Ivpb - IVPB 100 mls/hr Q24H [facility] Administration Protocol Insulin Aspart 1 vial 05/19/18 22:00 05/28/18 11:29 Novolog Vial Sliding Scale - SQ 6 units ACHS [facility] Administration Protocol Levothyroxine Sodium 75 mcg 05/24/18 07:00 05/28/18 06:18 Synthroid - PO 75 mcg DAILY@0700 [facility] Administration Losartan Potassium 25 mg 05/27/18 10:00 05/28/18 09:27 Cozaar - PO 25 mg DAILY [facility] Administration Methylprednisolone Sodium Succinate 40 mg 05/24/18 18:00 05/28/18 09:26 Solu-Medrol - IVPUSH 40 mg Q8H-IV [facility] Administration Montelukast Sodium 10 mg 05/19/18 22:00 05/27/18 22:36 Singulair - PO 10 mg HS [facility] Administration Pantoprazole Sodium 20 mg 05/20/18 10:00 05/28/18 09:27 Protonix - PO 20 mg DAILY [facility] Administration Potassium Chloride 10 meq 05/21/18 22:00 05/28/18 09:27 K-Dur - PO 10 meq BID [facility] Administration Roflumilast 500 mcg 05/20/18 10:00 05/28/18 09:27 Daliresp - PO 500 mcg DAILY [facility] Administration Rosuvastatin Calcium 5 mg 05/19/18 22:00 05/27/18 22:36 Crestor - PO 5 mg HS [facility] Administration Sodium Chloride 2 spray 05/27/18 22:00 05/28/18 09:28 [place] Nasal [place] - NS 2 spray BID [facility] Administration Impression: Fe++ studies compatibe with anemia of chronic disease Thrombocytopenia ? secondary to underlying infection Elevated LDH- evaluate for hemolysis OBJECTIVE: ASSESSMENT AND PLAN:
[2018-05-28] MEDS: HEPARIN NA (PORCINE) 5,000 UNITS/ML 1ML VIAL SQ SCH (22:42)
[2018-05-28] MEDS: MONTELUKAST NA 10 MG TABLET PO SCH (22:42)
[2018-05-28] MEDS: ROSUVASTATIN CA 5 MG TABLET (FP) PO SCH (22:42)
[2018-05-29] MEDS: methylPREDNISolone NA SUCC 40 MG/1 ML VIAL IVPUSH SCH ×3 (02:59→17:45)
[2018-05-29] MEDS: ALBUTEROL SO4 0.083% IH SOL 2.5 MG/3 ML VIAL.NEB. NEB PRN ×3 (03:34→20:40)
[2018-05-29 06:53] LABS: LDH 452 U/L (84-246)
[2018-05-29] MEDS: INSULIN SLIDING SCALE (NOVOLOG) 1 VIAL SQ SCH ×4 (07:08→22:35)
[2018-05-29] MEDS: LEVOTHYROXINE NA 75 MCG TABLET (FP) PO SCH (07:08)
--- NOTE | 2018-05-29 07:33 | PN ---
Progress Note, Physician Chief Complaint: in bed awake alert NAD stable no new c/o except general weakness no tremors, no headaches no nasal congestion or DC - Current Medication List Current Medications: Active Medications Acetaminophen (Tylenol -) 650 mg PO Q6H PRN PRN Reason: PAIN 1-7 Last Admin: 05/22/18 22:12 Dose: 650 mg Albuterol Sulfate (Ventolin 0.083% Nebulizer Soln -) 1 amp NEB Q8H PRN PRN Reason: SHORT OF BREATH/WHEEZING Last Admin: 05/29/18 03:34 Dose: 1 amp Albuterol Sulfate (Ventolin Hfa Inhaler -) 1 puff IH Q6H PRN PRN Reason: ASTHMA Aspirin (Asa -) 81 mg PO DAILY [facility] Last Admin: 05/28/18 09:27 Dose: 81 mg Heparin Sodium (Porcine) (Heparin -) 5,000 unit SQ BID [facility] Last Admin: 05/28/18 22:42 Dose: 5,000 unit Levofloxacin (Levaquin 500 Mg Premixed Ivpb -) 500 mg in 100 mls @ 100 mls/hr IVPB Q24H [facility]; Protocol Last Admin: 05/28/18 17:23 Dose: 100 mls/hr Insulin Aspart (Novolog Vial Sliding Scale -) 1 vial SQ ACHS [facility]; Protocol Last Admin: 05/29/18 07:08 Dose: 4 units Levothyroxine Sodium (Synthroid -) 75 mcg PO DAILY@0700 [facility] Last Admin: 05/29/18 07:08 Dose: 75 mcg Losartan Potassium (Cozaar -) 25 mg PO DAILY [facility] Last Admin: 05/28/18 09:27 Dose: 25 mg Methylprednisolone Sodium Succinate (Solu-Medrol -) 40 mg IVPUSH Q8H-IV [facility] Last Admin: 05/29/18 02:59 Dose: 40 mg Montelukast Sodium (Singulair -) 10 mg PO HS [facility] Last Admin: 05/28/18 22:42 Dose: 10 mg Pantoprazole Sodium (Protonix -) 20 mg PO DAILY [facility] Last Admin: 05/28/18 09:27 Dose: 20 mg Potassium Chloride (K-Dur -) 10 meq PO BID [facility] Last Admin: 05/28/18 22:42 Dose: 10 meq Roflumilast (Daliresp -) 500 mcg PO DAILY [facility] Last Admin: 05/28/18 09:27 Dose: 500 mcg Rosuvastatin Calcium (Crestor -) 5 mg PO HS [facility] Last Admin: 05/28/18 22:42 Dose: 5 mg Sodium Chloride ([place] Nasal [place] -) 2 spray NS BID [facility] Last Admin: 05/28/18 22:42 Dose: 2 spray - Objective Vital Signs: Vital Signs Temperature 98.4 F 05/29/18 06:00 Pulse Rate 100 H 05/29/18 06:00 Respiratory Rate 22 H 05/29/18 06:00 Blood Pressure 106/62 05/29/18 06:00 O2 Sat by Pulse Oximetry (%) 92 L 05/28/18 21:00 Constitutional: Yes: No Distress, Calm Eyes: Yes: Conjunctiva Clear HENT: Yes: Atraumatic Neck: Yes: Supple Cardiovascular: Yes: Regular Rate and Rhythm Respiratory: Yes: Rales Gastrointestinal: Yes: Soft. No: Distention Genitourinary: No: CVA Tenderness - Left, CVA Tenderness - Right Musculoskeletal: No: Joint Stiffness, Joint Swelling Extremities: No: Cold, Cool, Cyanosis Edema: No Integumentary: Yes: Bruising. No: Rash, Venous Stasis Changes Neurological: Yes: WNL, Alert, Oriented ...Motor Strength: WNL Psychiatric: Yes: WNL, Alert, Oriented. No: Agitated, Suicidal Ideation Labs: CBC, BMP 05/28/18 05:30 INR, PTT INR 0.97 (0.83-1.09) 05/19/18 16:15 - ....Imaging Other: Report Reviewed Assessment/Plan The patient is a 57F w/ a history of severe advanced COPD O2 dependant and frequent Bipap use, HTN, CAD, hypothyroidism admitted with acute on chronic COPD exacerbation. s/p Fall. Sinusitis, PNA pulmonary, neurology, ID f/u and ENT f/u iv steroids per pulm, nebs, O2, Bipap to use it as ordered, dw pt importance of bipap use she said she will use it iv antibiotics per ID gastric pfx while on steroids; BGM and GLU control while on steroids R hand hematoma improved; restarted sq heparin labs f/u low PLT, anemia: heme f/u; falls decubs DVT PFX prognosis guarded might need mechanical ventilation, tracheostomy d/w pt and staff
[2018-05-29 08:16] LABS: BLOOD UREA NITROGEN 25 mg/dL (7-18); CALCIUM 8.1 mg/dL (8.5-10.1); CHLORIDE 83 mmol/L (98-107); CREATININE 0.7 mg/dL (0.55-1.3); GLUCOSE,RANDOM 211 mg/dL (74-106); POTASSIUM 3.9 mmol/L (3.5-5.1); SODIUM 137 mmol/L (136-145)
[2018-05-29 09:01] LABS: ANION GAP 0 MMOL/L (8-16); CO2 54 mmol/L (21-32)
[2018-05-29 09:13] LABS: BASO % 0.3 % (0-2.0); HEMATOCRIT 26.4 % (32.4-45.2); HEMOGLOBIN 8.7 GM/dL (10.7-15.3); LYMPH % 0.3 % (8-40); MCH 30.8 pg (25.7-33.7); MEAN CELL VOLUME 93.4 fl (80-96); MEAN PLT VOLUME 10.2 fl (7.5-11.1); MONO % 2.3 % (3.8-10.2); NEUT % 97.1 % (42.8-82.8); PLATELET COUNT 129 K/MM3 (134-434); RBC 2.83 M/mm3 (3.60-5.2); RDW 13.4 % (11.6-15.6); WHITE BLOOD COUNT 17.6 K/mm3 (4.0-10.0)
[2018-05-29] MEDS ORDERED: PT OWN MED DRAWER 7, Y5N ONE (10:15)
[2018-05-29] MEDS: ASPIRIN 81 MG CHEWABLE TABLETS PO SCH (10:49)
[2018-05-29] MEDS: PANTOPRAZOLE 20 MG TABLET (FP) PO SCH (10:49)
[2018-05-29] MEDS: SODIUM CHLORIDE NASAL SPRAY 44 ML BOTTLE NS SCH ×2 (10:50→21:43)
[2018-05-29] MEDS: POTASSIUM CHLORIDE TABS 10 MEQ TABLET.ER (FP) PO SCH ×2 (10:50→21:43)
[2018-05-29] MEDS: ROFLUMILAST 500 MCG TABLET PO SCH (10:50)
[2018-05-29] MEDS: LOSARTAN POTASSIUM 25 MG TABLET PO SCH ×2 (10:50→11:02)
[2018-05-29] MEDS: HEPARIN NA (PORCINE) 5,000 UNITS/ML 1ML VIAL SQ SCH ×2 (10:50→21:43)
--- NOTE | 2018-05-29 11:00 | PN ---
Progress Note, Physician Chief Complaint: Events noted Intermittent dyspnea, currently feels better History of Present Illness: Patient was seen and examined. Chart was reviewed Denies chest pain or palpitations Complains of intermittent cough and SOB - Current Medication List Current Medications: Active Medications Acetaminophen (Tylenol -) 650 mg PO Q6H PRN PRN Reason: PAIN 1-7 Last Admin: 05/22/18 22:12 Dose: 650 mg Albuterol Sulfate (Ventolin 0.083% Nebulizer Soln -) 1 amp NEB Q8H PRN PRN Reason: SHORT OF BREATH/WHEEZING Last Admin: 05/29/18 03:34 Dose: 1 amp Albuterol Sulfate (Ventolin Hfa Inhaler -) 1 puff IH Q6H PRN PRN Reason: ASTHMA Aspirin (Asa -) 81 mg PO DAILY [facility] Last Admin: 05/29/18 10:49 Dose: 81 mg Heparin Sodium (Porcine) (Heparin -) 5,000 unit SQ BID [facility] Last Admin: 05/29/18 10:50 Dose: 5,000 unit Levofloxacin (Levaquin 500 Mg Premixed Ivpb -) 500 mg in 100 mls @ 100 mls/hr IVPB Q24H [facility]; Protocol Last Admin: 05/28/18 17:23 Dose: 100 mls/hr Insulin Aspart (Novolog Vial Sliding Scale -) 1 vial SQ ACHS [facility]; Protocol Last Admin: 05/29/18 07:08 Dose: 4 units Levothyroxine Sodium (Synthroid -) 75 mcg PO DAILY@0700 [facility] Last Admin: 05/29/18 07:08 Dose: 75 mcg Losartan Potassium (Cozaar -) 25 mg PO DAILY [facility] Last Admin: 05/29/18 10:50 Dose: 25 mg Methylprednisolone Sodium Succinate (Solu-Medrol -) 40 mg IVPUSH Q8H-IV [facility] Last Admin: 05/29/18 10:49 Dose: 40 mg Montelukast Sodium (Singulair -) 10 mg PO HS [facility] Last Admin: 05/28/18 22:42 Dose: 10 mg Pantoprazole Sodium (Protonix -) 20 mg PO DAILY [facility] Last Admin: 05/29/18 10:49 Dose: 20 mg Potassium Chloride (K-Dur -) 10 meq PO BID [facility] Last Admin: 05/29/18 10:50 Dose: 10 meq Roflumilast (Daliresp -) 500 mcg PO DAILY [facility] Last Admin: 05/29/18 10:50 Dose: 500 mcg Rosuvastatin Calcium (Crestor -) 5 mg PO HS [facility] Last Admin: 05/28/18 22:42 Dose: 5 mg Sodium Chloride ([place] Nasal [place] -) 2 spray NS BID [facility] Last Admin: 05/29/18 10:50 Dose: 2 spray - Objective Vital Signs: Vital Signs Temperature 97.9 F 05/29/18 09:50 Pulse Rate 95 H 05/29/18 09:50 Respiratory Rate 18 05/29/18 09:50 Blood Pressure 106/55 L 05/29/18 09:50 O2 Sat by Pulse Oximetry (%) 94 L 05/29/18 08:36 Eyes: Yes: PERRL HENT: Yes: Atraumatic Neck: Yes: Supple Cardiovascular: Yes: Regular Rate and Rhythm, S1, S2 Respiratory: Yes: Diminished Gastrointestinal: Yes: Normal Bowel Sounds, Soft. No: Tenderness Edema: No Additional Findings/Remarks: - Review of Systems Constitutional: denies: Chills, Fever Cardiovascular: denies: Chest Pain, (+) Shortness of Breath. denies: Palpitations Respiratory: reports: Cough, Orthopnea, SOB, SOB on Exertion. denies: Hemoptysis, PND Gastrointestinal: denies: Abdominal Pain, Constipation, Melena, Nausea, Rectal Bleeding, Vomiting Genitourinary: denies: Dysuria, Hematuria Neurological: denies: Dizziness, Headache, Seizure, Syncope Labs: CBC, BMP 05/29/18 05:30 05/29/18 05:30 INR, PTT INR 0.97 (0.83-1.09) 05/19/18 16:15 Problem List - Problems (1) Altered mental status Code(s): R41.82 - ALTERED MENTAL STATUS, UNSPECIFIED Qualifiers: Altered mental status type: disorientation Qualified Code(s): R41.0 - Disorientation, unspecified (2) COPD exacerbation Code(s): J44.1 - CHRONIC OBSTRUCTIVE PULMONARY DISEASE W (ACUTE) EXACERBATION (3) Acute and chronic respiratory failure with hypoxia Code(s): J96.21 - ACUTE AND CHRONIC RESPIRATORY FAILURE WITH HYPOXIA (4) Acute diastolic (congestive) heart failure Code(s): I50.31 - ACUTE DIASTOLIC (CONGESTIVE) HEART FAILURE (5) Acute on chronic respiratory failure with hypoxia and hypercapnia Code(s): J96.21 - ACUTE AND CHRONIC RESPIRATORY FAILURE WITH HYPOXIA; J96.22 - ACUTE AND CHRONIC RESPIRATORY FAILURE WITH HYPERCAPNIA (6) Diastolic dysfunction Code(s): I51.9 - HEART DISEASE, UNSPECIFIED (7) Hyperlipidemia Code(s): E78.5 - HYPERLIPIDEMIA, UNSPECIFIED Qualifiers: Hyperlipidemia type: pure hypercholesterolemia Qualified Code(s): E78.00 - Pure hypercholesterolemia, unspecified; E78.0 - Pure hypercholesterolemia (8) Hypertension Code(s): I10 - ESSENTIAL (PRIMARY) HYPERTENSION Qualifiers: Hypertension type: essential hypertension Qualified Code(s): I10 - Essential (primary) hypertension (9) Hypothyroidism Code(s): E03.9 - HYPOTHYROIDISM, UNSPECIFIED Qualifiers: Hypothyroidism type: unspecified Qualified Code(s): E03.9 - Hypothyroidism , unspecified (10) Pneumonia Code(s): J18.9 - PNEUMONIA, UNSPECIFIED ORGANISM (11) Shortness of breath Code(s): R06.02 - SHORTNESS OF BREATH (12) Sleep apnea Code(s): G47.30 - SLEEP APNEA, UNSPECIFIED Qualifiers: Sleep apnea type: unspecified type Qualified Code(s): G47.30 - Sleep apnea , unspecified Assessment/Plan 1. Acute on chronic hypoxic and hypercapneic respiratory failure 2. Chronic obstructive pulmonary disease exacerbation 3. Probable pneumonia 4. Post toxic metabolic encephalopathy 5. CAD coronary artery calcification angina pectoris 6. Diastolic LV dysfunction with chronic class I NYHA classification LV failure 7. HTN/HCVD 8. Hypercholesterolemia/mixed dyslipidemia 9. Hypothyroidism 10. Right hand hematoma 11. Pre-renal azotemia resolving 12. Anemia and thrombocytopenia 13. OSAS PLAN: 1. Losartan 25 mg QD as tolerted 2. Diuretics if needed 3. Continue ASA 81 mg QD 4. Continue Crestor 5 mg QHS 5. Continue pulmonary treatment. CPAP as needed 6. Empiric antibiotic course 7. DVT and GI prophylaxis Guarded Wilson Gill MD
[2018-05-29 12:21] LABS: ANISOCYTOSIS 1+; MACROCYTOSIS 1+; PLATELET ESTIMATE DECREASED
--- NOTE | 2018-05-29 12:38 | PN ---
Progress Note (short form) - Note Progress Note: Neurology History of Present Illness 57F w/ a history of COPD (2L NC at home), HTN, CAD, hypothyroidism who presents from [facility] for evaluation of increasing respiratory distress and associated confusion/lethargy. The patient was recently admitted for a COPD exacerbation. According to notes the family reported when the patient is having an exacerbation, it is typical for her to become confused. She was admitted and Pulmonary following closely. Patient experienced fall last night, hospitalist note reviewed, with head pain. CT head completed and without acute changes. Neurologically without focal deficits. Getting ongoing medical mgmt. Is able to tell me she's at [place], thought it was may but knows the year. More alert and awake, interactive, less respiratory distress this AM while eating. ENT note reviewed and discussed with patient, nasal congestion, ABx and saline spray recommended. Discussed with hospitalist yesterday and was inquiring about twitch, not evident during my eval but maybe from xanax not being given. Can give xanax if needed. Allergies/Adverse Reactions: Allergies Allergy/AdvReac Type Severity Reaction Status Date / Time Penicillins Allergy Severe Difficulty Verified 05/19/18 16:04 Breathing Active Medications Acetaminophen (Tylenol -) 650 mg PO Q6H PRN PRN Reason: PAIN 1-7 Last Admin: 05/22/18 22:12 Dose: 650 mg Albuterol Sulfate (Ventolin 0.083% Nebulizer Soln -) 1 amp NEB Q8H PRN PRN Reason: SHORT OF BREATH/WHEEZING Last Admin: 05/29/18 03:34 Dose: 1 amp Albuterol Sulfate (Ventolin Hfa Inhaler -) 1 puff IH Q6H PRN PRN Reason: ASTHMA Aspirin (Asa -) 81 mg PO DAILY [facility] Last Admin: 05/29/18 10:49 Dose: 81 mg Heparin Sodium (Porcine) (Heparin -) 5,000 unit SQ BID [facility] Last Admin: 05/29/18 10:50 Dose: 5,000 unit Levofloxacin (Levaquin 500 Mg Premixed Ivpb -) 500 mg in 100 mls @ 100 mls/hr IVPB Q24H [facility]; Protocol Last Admin: 05/28/18 17:23 Dose: 100 mls/hr Insulin Aspart (Novolog Vial Sliding Scale -) 1 vial SQ ACHS [facility]; Protocol Last Admin: 05/29/18 11:56 Dose: 2 units Levothyroxine Sodium (Synthroid -) 75 mcg PO DAILY@0700 [facility] Last Admin: 05/29/18 07:08 Dose: 75 mcg Losartan Potassium (Cozaar -) 25 mg PO DAILY [facility] Last Admin: 05/29/18 11:02 Dose: Not Given Methylprednisolone Sodium Succinate (Solu-Medrol -) 40 mg IVPUSH Q8H-IV [facility] Last Admin: 05/29/18 10:49 Dose: 40 mg Montelukast Sodium (Singulair -) 10 mg PO HS [facility] Last Admin: 05/28/18 22:42 Dose: 10 mg Pantoprazole Sodium (Protonix -) 20 mg PO DAILY [facility] Last Admin: 05/29/18 10:49 Dose: 20 mg Potassium Chloride (K-Dur -) 10 meq PO BID [facility] Last Admin: 05/29/18 10:50 Dose: 10 meq Roflumilast (Daliresp -) 500 mcg PO DAILY [facility] Last Admin: 05/29/18 10:50 Dose: 500 mcg Rosuvastatin Calcium (Crestor -) 5 mg PO HS [facility] Last Admin: 05/28/18 22:42 Dose: 5 mg Sodium Chloride ([place] Nasal [place] -) 2 spray NS BID [facility] Last Admin: 05/29/18 10:50 Dose: 2 spray *Physical Exam Vital Signs Temperature 97.9 F 05/29/18 12:00 Pulse Rate 95 H 05/29/18 12:00 Respiratory Rate 18 05/29/18 12:00 Blood Pressure 106/55 L 05/29/18 12:00 O2 Sat by Pulse Oximetry (%) 94 L 05/29/18 08:36 GENERAL: Awake, easily arousable to voice, oriented to self, not telling me location, month, or year HEAD: No signs of trauma, normocephalic, atraumatic EYES: PERRLA, EOMI ENT: Hearing grossly normal, nares patent, oropharynx clear without exudates. Moist mucosa LUNGS: on 4LNC (2LNC at home); moderate diffuse wheeze b/l HEART: Tachycardia with regular rhythm, normal S1 and S2, no murmurs appreciated , peripheral pulses normal and equal bilaterally ABDOMEN: Soft, nontender, normoactive bowel sounds. No guarding, no rebound EXTREMITIES : 2+ BLE edema to knee; RUE hand and forearm hematoma, Normal range of motion NEUROLOGICAL: Cranial nerves II through XII grossly intact. no focal sensorimotor deficits, finger to nose normal, gait deferred CBCD WBC 17.6 K/mm3 (4.0-10.0) H 05/29/18 05:30 RBC 2.83 M/mm3 (3.60-5.2) L 05/29/18 05:30 Hgb 8.7 GM/dL (10.7-15.3) L 05/29/18 05:30 Hct 26.4 % (32.4-45.2) L 05/29/18 05:30 MCV 93.4 fl (80-96) 05/29/18 05:30 MCHC 33.0 g/dl (32.0-36.0) 05/29/18 05:30 RDW 13.4 % (11.6-15.6) 05/29/18 05:30 Plt Count 129 K/MM3 (134-434) L 05/29/18 05:30 MPV 10.2 fl (7.5-11.1) 05/29/18 05:30 CMP Sodium 137 mmol/L (136-145) 05/29/18 05:30 Potassium 3.9 mmol/L (3.5-5.1) 05/29/18 05:30 Chloride 83 mmol/L (98-107) L 05/29/18 05:30 Carbon Dioxide 54 mmol/L (21-32) H 05/29/18 05:30 Anion Gap 0 MMOL/L (8-16) L 05/29/18 05:30 BUN 25 mg/dL (7-18) H 05/29/18 05:30 Creatinine 0.7 mg/dL (0.55-1.3) 05/29/18 05:30 Creat Clearance w eGFR > 60 (>60) 05/29/18 05:30 Calcium 8.1 mg/dL (8.5-10.1) L 05/29/18 05:30 Total Bilirubin 0.7 mg/dL (0.2-1) 05/27/18 06:43 AST 34 U/L (15-37) 05/27/18 06:43 ALT 41 U/L (13-61) 05/27/18 06:43 Alkaline Phosphatase 136 U/L (45-117) H 05/27/18 06:43 Total Protein 4.8 g/dl (6.4-8.2) L 05/27/18 06:43 Albumin 2.1 g/dl (3.4-5.0) L 05/27/18 06:43 Medical Decision Making 57F w/ a history of COPD (2L NC at home), HTN, CAD, hypothyroidism who presents from [facility] for evaluation of increasing respiratory distress and associated confusion/lethargy. The patient was recently admitted for a COPD exacerbation. According to notes the family reported when the patient is having an exacerbation, it is typical for her to become confused. She was admitted and Pulmonary following closely. Fall overnight with head pain but no focal deficits , CT head completed and without acute changes. ENT note reviewed. Is alert and interactive now, neurologically stable. Likely AMS, Toxic metabolic encephalopathy 2/2 respiratory distress, continue optimization of COPD. Twitch maybe from not getting any xanax last several days. Increased hydration, monitor BP, maintain normotensive range.
--- NOTE | 2018-05-29 13:25 | PN ---
Progress Note (short form) - Note Progress Note: PULMONARY WELL KNOWN BY OUR SERVICE Non-productive cough Using NIPPV overnight. Constitutional: resting comfortably Eyes: Yes: WNL HENT: Yes: WNL Neck: Yes: WNL Cardiovascular: Yes: Regular Rate and Rhythm, S1, S2 Respiratory: Yes: diminished throughout, bibasilr rhonchi/crackles, (-) wheeze Gastrointestinal: Yes: WNL Extremities: Yes: right hand ecchymotic Edema: No Labs: Reviewed meds/notes/images/micro reviewed - Problems (1) Altered mental status Code(s): R41.82 - ALTERED MENTAL STATUS, UNSPECIFIED Qualifiers: Altered mental status type: disorientation Qualified Code(s): R41.0 - Disorientation, unspecified (2) COPD exacerbation Code(s): J44.1 - CHRONIC OBSTRUCTIVE PULMONARY DISEASE W (ACUTE) EXACERBATION (3) Acute on chronic respiratory failure with hypoxia and hypercapnia Code(s): J96.21 - ACUTE AND CHRONIC RESPIRATORY FAILURE WITH HYPOXIA; J96.22 - ACUTE AND CHRONIC RESPIRATORY FAILURE WITH HYPERCAPNIA (4) CHF (congestive heart failure) Code(s): I50.9 - HEART FAILURE, UNSPECIFIED (5) COPD exacerbation Code(s): J44.1 - CHRONIC OBSTRUCTIVE PULMONARY DISEASE W (ACUTE) EXACERBATION (6) Diastolic dysfunction Code(s): I51.9 - HEART DISEASE, UNSPECIFIED (7) Sleep apnea Code(s): G47.30 - SLEEP APNEA, UNSPECIFIED IMP ACUTE ON CHRONIC HYPOXEMIC HYPERCAPNEIC RESPIRATORY FAILURE COPD O2 DEPENDENT PNEUMOCOCCAL PNEUMONIA ALTERED MENTAL STATUS CHF HYPOTHYROID NAVDEEP BILATERAL HAP PLAN STEROIDS TO TAPER ABX PER ID INHALED BRONCHODILATORS O2 NIPPV AT NIGHT AND PRN WILL NEED RADIOGRAPHIC FOLLOW UP AFTER DISCHARGE PULMONARY REHAB WHEN STABLE Parul ALEGRE MD
[2018-05-29] MEDS: ROSUVASTATIN CA 5 MG TABLET (FP) PO SCH (21:43)
[2018-05-29] MEDS: MONTELUKAST NA 10 MG TABLET PO SCH (21:43)
[2018-05-30] MEDS: methylPREDNISolone NA SUCC 40 MG/1 ML VIAL IVPUSH SCH ×3 (02:00→21:16)
[2018-05-30] MEDS: LEVOTHYROXINE NA 75 MCG TABLET (FP) PO SCH (06:20)
[2018-05-30] MEDS: INSULIN SLIDING SCALE (NOVOLOG) 1 VIAL SQ SCH ×4 (06:20→21:23)
[2018-05-30 06:38] LABS: BASO % 0.1 % (0-2.0); EOS % 0.1 % (0-4.5); HEMATOCRIT 27.2 % (32.4-45.2); HEMOGLOBIN 8.5 GM/dL (10.7-15.3); LYMPH % 0.8 % (8-40); MCH 29.5 pg (25.7-33.7); MCHC 31.3 g/dl (32.0-36.0); MEAN CELL VOLUME 94.2 fl (80-96); MEAN PLT VOLUME 9.3 fl (7.5-11.1); MONO % 1.5 % (3.8-10.2); NEUT % 97.5 % (42.8-82.8); PLATELET COUNT 122 K/MM3 (134-434); RBC 2.89 M/mm3 (3.60-5.2); RDW 13.1 % (11.6-15.6); WHITE BLOOD COUNT 16.4 K/mm3 (4.0-10.0)
--- NOTE | 2018-05-30 06:55 | PN ---
Progress Note, Physician Chief Complaint: alert awake not confused no tremors; used bipap last night - will taper steroids again d/w ot to use bipap as ordered - important to prevent worsening respiratory failure and CO2 retention breathing better; has some back pain b/o mattress - wants to get OOB but can not alone,d/w pt and staff do not have pt get OOB alone very high risks of falls - pt understood and is aware said she will call staff if needs OOB - Current Medication List Current Medications: Active Medications Acetaminophen (Tylenol -) 650 mg PO Q6H PRN PRN Reason: PAIN 1-7 Last Admin: 05/22/18 22:12 Dose: 650 mg Albuterol Sulfate (Ventolin 0.083% Nebulizer Soln -) 1 amp NEB Q8H PRN PRN Reason: SHORT OF BREATH/WHEEZING Last Admin: 05/29/18 20:40 Dose: 1 amp Albuterol Sulfate (Ventolin Hfa Inhaler -) 1 puff IH Q6H PRN PRN Reason: ASTHMA Aspirin (Asa -) 81 mg PO DAILY [facility] Last Admin: 05/29/18 10:49 Dose: 81 mg Heparin Sodium (Porcine) (Heparin -) 5,000 unit SQ BID [facility] Last Admin: 05/29/18 21:43 Dose: 5,000 unit Levofloxacin (Levaquin 500 Mg Premixed Ivpb -) 500 mg in 100 mls @ 100 mls/hr IVPB Q24H [facility]; Protocol Last Admin: 05/29/18 17:45 Dose: 100 mls/hr Insulin Aspart (Novolog Vial Sliding Scale -) 1 vial SQ ACHS [facility]; Protocol Last Admin: 05/30/18 06:20 Dose: 2 units Levothyroxine Sodium (Synthroid -) 75 mcg PO DAILY@0700 [facility] Last Admin: 05/30/18 06:20 Dose: 75 mcg Losartan Potassium (Cozaar -) 25 mg PO DAILY [facility] Last Admin: 05/29/18 11:02 Dose: Not Given Methylprednisolone Sodium Succinate (Solu-Medrol -) 40 mg IVPUSH Q8H-IV [facility] Last Admin: 05/30/18 02:00 Dose: 40 mg Montelukast Sodium (Singulair -) 10 mg PO HS [facility] Last Admin: 05/29/18 21:43 Dose: 10 mg Pantoprazole Sodium (Protonix -) 20 mg PO DAILY [facility] Last Admin: 05/29/18 10:49 Dose: 20 mg Potassium Chloride (K-Dur -) 10 meq PO BID [facility] Last Admin: 05/29/18 21:43 Dose: 10 meq Roflumilast (Daliresp -) 500 mcg PO DAILY [facility] Last Admin: 05/29/18 10:50 Dose: 500 mcg Rosuvastatin Calcium (Crestor -) 5 mg PO HS [facility] Last Admin: 05/29/18 21:43 Dose: 5 mg Sodium Chloride ([place] Nasal [place] -) 2 spray NS BID [facility] Last Admin: 05/29/18 21:43 Dose: 2 spray - Objective Vital Signs: Vital Signs Temperature 98.1 F 05/30/18 06:00 Pulse Rate 90 05/30/18 06:00 Respiratory Rate 20 05/30/18 06:00 Blood Pressure 102/63 05/30/18 06:00 O2 Sat by Pulse Oximetry (%) 97 05/29/18 23:00 Constitutional: Yes: No Distress, Calm Eyes: Yes: Conjunctiva Clear HENT: Yes: Atraumatic Neck: Yes: Supple Cardiovascular: Yes: Regular Rate and Rhythm Respiratory: Yes: CTA Bilaterally Gastrointestinal: Yes: Soft. No: Distention Genitourinary: No: CVA Tenderness - Left, CVA Tenderness - Right Musculoskeletal: No: Joint Stiffness, Joint Swelling Extremities: Yes: Other (R hand hematoma smaller, RUE echymoses resolving). No : Calf Tenderness, Cold, Cool, Cyanosis Edema: No Integumentary: Yes: Bruising Neurological: Yes: WNL, Alert, Oriented ...Motor Strength: WNL Psychiatric: Yes: WNL, Alert, Oriented. No: Agitated, Suicidal Ideation Labs: INR, PTT INR 0.97 (0.83-1.09) 05/19/18 16:15 - ....Imaging Other: Report Reviewed Assessment/Plan The patient is a 57F w/ a history of severe advanced COPD O2 dependant and frequent Bipap use, HTN, CAD, hypothyroidism admitted with acute on chronic COPD exacerbation. s/p Fall. Sinusitis, PNA pulmonary, neurology, ID f/u and ENT f/u iv steroids per pulm, nebs, O2, taper steroids; will need pulmonary rehab Bipap to use it as ordered, dw pt importance of bipap use she said she will use it iv antibiotics per ID gastric pfx while on steroids; BGM and GLU control while on steroids R hand hematoma improved; restarted sq heparin labs f/u low PLT, anemia: heme f/u; falls decubs DVT PFX prognosis guarded d/w pt and staff
[2018-05-30 07:31] LABS: ALBUMIN 2.3 g/dl (3.4-5.0); ALK PHOS 133 U/L (45-117); BILIRUBIN,TOTAL 0.5 mg/dL (0.2-1); BLOOD UREA NITROGEN 27 mg/dL (7-18); CHLORIDE 86 mmol/L (98-107); CREATININE 0.7 mg/dL (0.55-1.3); GLUCOSE,RANDOM 175 mg/dL (74-106); POTASSIUM 4.2 mmol/L (3.5-5.1); SGOT/AST 24 U/L (15-37); SGPT/ALT 36 U/L (13-61); SODIUM 140 mmol/L (136-145); TOT PROT 4.7 g/dl (6.4-8.2)
[2018-05-30] MEDS ORDERED: PT OWN MED DRAWER 7, Y5N ONE (09:02)
[2018-05-30 09:05] LABS: ANION GAP 1 MMOL/L (8-16); CO2 53 mmol/L (21-32)
[2018-05-30] MEDS: HEPARIN NA (PORCINE) 5,000 UNITS/ML 1ML VIAL SQ SCH ×2 (09:43→21:16)
[2018-05-30] MEDS: ROFLUMILAST 500 MCG TABLET PO SCH (09:43)
[2018-05-30] MEDS: ASPIRIN 81 MG CHEWABLE TABLETS PO SCH (09:43)
[2018-05-30] MEDS: POTASSIUM CHLORIDE TABS 10 MEQ TABLET.ER (FP) PO SCH ×2 (09:43→21:16)
[2018-05-30] MEDS: PANTOPRAZOLE 20 MG TABLET (FP) PO SCH (09:43)
[2018-05-30] MEDS: SODIUM CHLORIDE NASAL SPRAY 44 ML BOTTLE NS SCH ×2 (09:44→21:16)
[2018-05-30] MEDS: LOSARTAN POTASSIUM 25 MG TABLET PO SCH (09:45)
[2018-05-30 10:49] LABS: ANISOCYTOSIS 1+; MACROCYTOSIS 1+; PLATELET ESTIMATE DECREASED
--- NOTE | 2018-05-30 12:02 | PN ---
Progress Note, Physician Chief Complaint: Events noted Intermittent dyspnea Hand hematoma improving History of Present Illness: Patient was seen and examined. Chart was reviewed Denies chest pain or palpitations Complains of intermittent cough and SOB - Current Medication List Current Medications: Active Medications Acetaminophen (Tylenol -) 650 mg PO Q6H PRN PRN Reason: PAIN 1-7 Last Admin: 05/22/18 22:12 Dose: 650 mg Albuterol Sulfate (Ventolin 0.083% Nebulizer Soln -) 1 amp NEB Q8H PRN PRN Reason: SHORT OF BREATH/WHEEZING Last Admin: 05/29/18 20:40 Dose: 1 amp Albuterol Sulfate (Ventolin Hfa Inhaler -) 1 puff IH Q6H PRN PRN Reason: ASTHMA Aspirin (Asa -) 81 mg PO DAILY [facility] Last Admin: 05/30/18 09:43 Dose: 81 mg Heparin Sodium (Porcine) (Heparin -) 5,000 unit SQ BID [facility] Last Admin: 05/30/18 09:43 Dose: 5,000 unit Levofloxacin (Levaquin 500 Mg Premixed Ivpb -) 500 mg in 100 mls @ 100 mls/hr IVPB Q24H [facility]; Protocol Last Admin: 05/29/18 17:45 Dose: 100 mls/hr Insulin Aspart (Novolog Vial Sliding Scale -) 1 vial SQ ACHS [facility]; Protocol Last Admin: 05/30/18 11:09 Dose: 2 units Levothyroxine Sodium (Synthroid -) 75 mcg PO DAILY@0700 [facility] Last Admin: 05/30/18 06:20 Dose: 75 mcg Losartan Potassium (Cozaar -) 25 mg PO DAILY [facility] Last Admin: 05/30/18 09:45 Dose: Not Given Methylprednisolone Sodium Succinate (Solu-Medrol -) 40 mg IVPUSH BID [facility] Last Admin: 05/30/18 09:42 Dose: 40 mg Montelukast Sodium (Singulair -) 10 mg PO HS [facility] Last Admin: 05/29/18 21:43 Dose: 10 mg Pantoprazole Sodium (Protonix -) 20 mg PO DAILY [facility] Last Admin: 05/30/18 09:43 Dose: 20 mg Potassium Chloride (K-Dur -) 10 meq PO BID [facility] Last Admin: 05/30/18 09:43 Dose: 10 meq Roflumilast (Daliresp -) 500 mcg PO DAILY [facility] Last Admin: 12/02/18 09:43 Dose: 500 mcg Rosuvastatin Calcium (Crestor -) 5 mg PO HS [facility] Last Admin: 05/29/18 21:43 Dose: 5 mg Sodium Chloride ([place] Nasal [place] -) 2 spray NS BID [facility] Last Admin: 05/30/18 09:44 Dose: 2 spray - Objective Vital Signs: Vital Signs Temperature 97.8 F 05/30/18 08:07 Pulse Rate 91 H 05/30/18 08:07 Respiratory Rate 20 05/30/18 08:09 Blood Pressure 116/63 05/30/18 08:07 O2 Sat by Pulse Oximetry (%) 98 05/30/18 08:09 Eyes: Yes: PERRL HENT: Yes: Atraumatic Neck: Yes: Supple Cardiovascular: Yes: Regular Rate and Rhythm, S1, S2 Respiratory: Yes: Diminished, Wheezes Gastrointestinal: Yes: Normal Bowel Sounds, Soft. No: Tenderness Edema: No Additional Findings/Remarks: - Review of Systems Constitutional: denies: Chills, Fever Cardiovascular: denies: Chest Pain, (+) Shortness of Breath. denies: Palpitations Respiratory: reports: Cough, Orthopnea, SOB, SOB on Exertion. denies: Hemoptysis, PND Gastrointestinal: denies: Abdominal Pain, Constipation, Melena, Nausea, Rectal Bleeding, Vomiting Genitourinary: denies: Dysuria, Hematuria Neurological: denies: Dizziness, Headache, Seizure, Syncope Labs: CBC, BMP 05/30/18 05:30 05/30/18 05:30 Problem List - Problems (1) Altered mental status Code(s): R41.82 - ALTERED MENTAL STATUS, UNSPECIFIED Qualifiers: Altered mental status type: disorientation Qualified Code(s): R41.0 - Disorientation, unspecified (2) COPD exacerbation Code(s): J44.1 - CHRONIC OBSTRUCTIVE PULMONARY DISEASE W (ACUTE) EXACERBATION (3) Acute and chronic respiratory failure with hypoxia Code(s): J96.21 - ACUTE AND CHRONIC RESPIRATORY FAILURE WITH HYPOXIA (4) Acute diastolic (congestive) heart failure Code(s): I50.31 - ACUTE DIASTOLIC (CONGESTIVE) HEART FAILURE (5) Acute on chronic respiratory failure with hypoxia and hypercapnia Code(s): J96.21 - ACUTE AND CHRONIC RESPIRATORY FAILURE WITH HYPOXIA; J96.22 - ACUTE AND CHRONIC RESPIRATORY FAILURE WITH HYPERCAPNIA (6) Diastolic dysfunction Code(s): I51.9 - HEART DISEASE, UNSPECIFIED (7) Hyperlipidemia Code(s): E78.5 - HYPERLIPIDEMIA, UNSPECIFIED Qualifiers: Hyperlipidemia type: pure hypercholesterolemia Qualified Code(s): E78.00 - Pure hypercholesterolemia, unspecified; E78.0 - Pure hypercholesterolemia (8) Hypertension Code(s): I10 - ESSENTIAL (PRIMARY) HYPERTENSION Qualifiers: Hypertension type: essential hypertension Qualified Code(s): I10 - Essential (primary) hypertension (9) Hypothyroidism Code(s): E03.9 - HYPOTHYROIDISM, UNSPECIFIED Qualifiers: Hypothyroidism type: unspecified Qualified Code(s): E03.9 - Hypothyroidism , unspecified (10) Pneumonia Code(s): J18.9 - PNEUMONIA, UNSPECIFIED ORGANISM (11) Shortness of breath Code(s): R06.02 - SHORTNESS OF BREATH (12) Sleep apnea Code(s): G47.30 - SLEEP APNEA, UNSPECIFIED Qualifiers: Sleep apnea type: unspecified type Qualified Code(s): G47.30 - Sleep apnea , unspecified Assessment/Plan 1. Acute on chronic hypoxic and hypercapneic respiratory failure 2. Chronic obstructive pulmonary disease exacerbation 3. Probable pneumonia 4. Post toxic metabolic encephalopathy 5. CAD coronary artery calcification angina pectoris 6. Diastolic LV dysfunction with chronic class I NYHA classification LV failure 7. HTN/HCVD 8. Hypercholesterolemia/mixed dyslipidemia 9. Hypothyroidism 10. Right hand hematoma 11. Pre-renal azotemia resolving 12. Anemia and thrombocytopenia 13. OSAS PLAN: 1. Losartan 25 mg QD as tolerted 2. Diuretics as needed 3. Continue ASA 81 mg QD 4. Continue Crestor 5 mg QHS 5. Continue pulmonary treatment. BIPAP, bronchodilator and steroid taper 6. Empiric antibiotic course 7. DVT and GI prophylaxis Guarded Wilson Gill MD
--- NOTE | 2018-05-30 14:57 | PN ---
Progress Note (short form) - Note Progress Note: PULMONARY WELL KNOWN BY OUR SERVICE Non-productive cough Using NIPPV overnight. Constitutional: resting comfortably Eyes: Yes: WNL HENT: Yes: WNL Neck: Yes: WNL Cardiovascular: Yes: Regular Rate and Rhythm, S1, S2 Respiratory: Yes: diminished throughout, bibasilr rhonchi/crackles, (-) wheeze Gastrointestinal: Yes: WNL Extremities: Yes: right hand ecchymotic Edema: No Labs: Reviewed meds/notes/images/micro reviewed - Problems (1) Altered mental status Code(s): R41.82 - ALTERED MENTAL STATUS, UNSPECIFIED Qualifiers: Altered mental status type: disorientation Qualified Code(s): R41.0 - Disorientation, unspecified (2) COPD exacerbation Code(s): J44.1 - CHRONIC OBSTRUCTIVE PULMONARY DISEASE W (ACUTE) EXACERBATION (3) Acute on chronic respiratory failure with hypoxia and hypercapnia Code(s): J96.21 - ACUTE AND CHRONIC RESPIRATORY FAILURE WITH HYPOXIA; J96.22 - ACUTE AND CHRONIC RESPIRATORY FAILURE WITH HYPERCAPNIA (4) CHF (congestive heart failure) Code(s): I50.9 - HEART FAILURE, UNSPECIFIED (5) COPD exacerbation Code(s): J44.1 - CHRONIC OBSTRUCTIVE PULMONARY DISEASE W (ACUTE) EXACERBATION (6) Diastolic dysfunction Code(s): I51.9 - HEART DISEASE, UNSPECIFIED (7) Sleep apnea Code(s): G47.30 - SLEEP APNEA, UNSPECIFIED IMP ACUTE ON CHRONIC HYPOXEMIC HYPERCAPNEIC RESPIRATORY FAILURE COPD O2 DEPENDENT PNEUMOCOCCAL PNEUMONIA ALTERED MENTAL STATUS CHF HYPOTHYROID NAVDEEP BILATERAL HAP PLAN STEROIDS TO TAPER ABX PER ID INHALED BRONCHODILATORS O2 NIPPV AT NIGHT AND PRN WILL NEED RADIOGRAPHIC FOLLOW UP PULMONARY REHAB IN SNF WHEN READY FOR DISCHARGE Parul ALEGRE MD
[2018-05-30] MEDS: ALBUTEROL SO4 0.083% IH SOL 2.5 MG/3 ML VIAL.NEB. NEB PRN ×2 (16:17→20:10)
[2018-05-30] MEDS: ROSUVASTATIN CA 5 MG TABLET (FP) PO SCH (21:16)
[2018-05-30] MEDS: MONTELUKAST NA 10 MG TABLET PO SCH (21:16)
[2018-05-31] MEDS: LEVOTHYROXINE NA 75 MCG TABLET (FP) PO SCH (06:42)
[2018-05-31] MEDS: INSULIN SLIDING SCALE (NOVOLOG) 1 VIAL SQ SCH ×4 (06:42→23:18)
[2018-05-31] MEDS: ALBUTEROL SO4 0.083% IH SOL 2.5 MG/3 ML VIAL.NEB. NEB PRN ×3 (07:40→19:07)
[2018-05-31] MEDS ORDERED: PT OWN MED DRAWER 7, Y5N ONE (08:48)
--- NOTE | 2018-05-31 09:29 | PN ---
Progress Note, Physician Chief Complaint: feeling better less SOB generally weak, will do PT at bedside - Current Medication List Current Medications: Active Medications Acetaminophen (Tylenol -) 650 mg PO Q6H PRN PRN Reason: PAIN 1-7 Last Admin: 05/22/18 22:12 Dose: 650 mg Albuterol Sulfate (Ventolin 0.083% Nebulizer Soln -) 1 amp NEB Q8H PRN PRN Reason: SHORT OF BREATH/WHEEZING Last Admin: 05/30/18 20:10 Dose: 1 amp Albuterol Sulfate (Ventolin Hfa Inhaler -) 1 puff IH Q6H PRN PRN Reason: ASTHMA Aspirin (Asa -) 81 mg PO DAILY [facility] Last Admin: 05/30/18 09:43 Dose: 81 mg Heparin Sodium (Porcine) (Heparin -) 5,000 unit SQ BID [facility] Last Admin: 05/30/18 21:16 Dose: 5,000 unit Levofloxacin (Levaquin 500 Mg Premixed Ivpb -) 500 mg in 100 mls @ 100 mls/hr IVPB Q24H [facility]; Protocol Last Admin: 05/30/18 17:19 Dose: 100 mls/hr Insulin Aspart (Novolog Vial Sliding Scale -) 1 vial SQ ACHS [facility]; Protocol Last Admin: 05/31/18 06:42 Dose: 4 units Levothyroxine Sodium (Synthroid -) 75 mcg PO DAILY@0700 [facility] Last Admin: 05/31/18 06:42 Dose: 75 mcg Losartan Potassium (Cozaar -) 25 mg PO DAILY [facility] Last Admin: 05/30/18 09:45 Dose: Not Given Methylprednisolone Sodium Succinate (Solu-Medrol -) 40 mg IVPUSH BID [facility] Last Admin: 05/30/18 21:16 Dose: 40 mg Montelukast Sodium (Singulair -) 10 mg PO HS [facility] Last Admin: 05/30/18 21:16 Dose: 10 mg Pantoprazole Sodium (Protonix -) 20 mg PO DAILY [facility] Last Admin: 05/30/18 09:43 Dose: 20 mg Potassium Chloride (K-Dur -) 10 meq PO BID [facility] Last Admin: 05/30/18 21:16 Dose: 10 meq Roflumilast (Daliresp -) 500 mcg PO DAILY [facility] Last Admin: 05/30/18 09:43 Dose: 500 mcg Rosuvastatin Calcium (Crestor -) 5 mg PO HS [facility] Last Admin: 05/30/18 21:16 Dose: 5 mg Sodium Chloride ([place] Nasal [place] -) 2 spray NS BID [facility] Last Admin: 05/30/18 21:16 Dose: 2 spray - Objective Vital Signs: Vital Signs Temperature 98.5 F 05/31/18 08:40 Pulse Rate 82 05/31/18 06:00 Respiratory Rate 20 05/31/18 08:40 Blood Pressure 108/62 05/31/18 08:40 O2 Sat by Pulse Oximetry (%) 92 L 05/31/18 08:38 Constitutional: Yes: No Distress Eyes: Yes: Conjunctiva Clear HENT: Yes: Atraumatic Neck: Yes: Supple Cardiovascular: Yes: Regular Rate and Rhythm Respiratory: Yes: CTA Bilaterally Gastrointestinal: Yes: Soft. No: Distention Genitourinary: No: Hematuria Musculoskeletal: No: Joint Stiffness, Joint Swelling Extremities: No: Cold, Cool Edema: No Integumentary: No: Rash, Venous Stasis Changes Neurological: Yes: WNL, Alert, Oriented ...Motor Strength: WNL Psychiatric: Yes: WNL, Alert, Oriented. No: Agitated Labs: CBC, BMP 05/30/18 05:30 05/30/18 05:30 INR, PTT INR 0.97 (0.83-1.09) 05/19/18 16:15 - ....Imaging Other: Report Reviewed Assessment/Plan The patient is a 57F w/ a history of severe advanced COPD O2 dependant and frequent Bipap use, HTN, CAD, hypothyroidism admitted with acute on chronic COPD exacerbation. s/p Fall. Sinusitis, PNA pulmonary, neurology, ID f/u and ENT f/u iv steroids per pulm, nebs, O2, taper steroids; will need pulmonary rehab if stable to DC to SNF / [place] or [place] in am Bipap to use it as ordered, dw pt importance of bipap use she said she will use it antibiotics per ID gastric pfx while on steroids; BGM and GLU control while on steroids R hand hematoma improved; restarted sq heparin labs f/u low PLT, anemia: heme f/u; falls decubs DVT PFX prognosis guarded d/w pt and staff
--- NOTE | 2018-05-31 09:38 | PN ---
Progress Note (short form) - Note Progress Note: Neurology History of Present Illness 57F w/ a history of COPD (2L NC at home), HTN, CAD, hypothyroidism who presents from [facility] for evaluation of increasing respiratory distress and associated confusion/lethargy. The patient was recently admitted for a COPD exacerbation. According to notes the family reported when the patient is having an exacerbation, it is typical for her to become confused. She was admitted and Pulmonary following closely. Patient experienced fall last night, hospitalist note reviewed, with head pain. CT head completed and without acute changes. Neurologically without focal deficits. Getting ongoing medical mgmt. Is able to tell me she's at [place], thought it was may but knows the year. More alert and awake, interactive, less respiratory distress this AM while eating. ENT note reviewed and discussed with patient, nasal congestion, ABx and saline spray recommended. Reports improved respiration today. Comfortable with nasal canula this AM. Mental status remains at baseline. Allergies/Adverse Reactions: Allergies Allergy/AdvReac Type Severity Reaction Status Date / Time Penicillins Allergy Severe Difficulty Verified 05/19/18 16:04 Breathing Active Medications Acetaminophen (Tylenol -) 650 mg PO Q6H PRN PRN Reason: PAIN 1-7 Last Admin: 05/22/18 22:12 Dose: 650 mg Albuterol Sulfate (Ventolin 0.083% Nebulizer Soln -) 1 amp NEB Q8H PRN PRN Reason: SHORT OF BREATH/WHEEZING Last Admin: 05/30/18 20:10 Dose: 1 amp Albuterol Sulfate (Ventolin Hfa Inhaler -) 1 puff IH Q6H PRN PRN Reason: ASTHMA Aspirin (Asa -) 81 mg PO DAILY [facility] Last Admin: 05/30/18 09:43 Dose: 81 mg Heparin Sodium (Porcine) (Heparin -) 5,000 unit SQ BID [facility] Last Admin: 05/30/18 21:16 Dose: 5,000 unit Levofloxacin (Levaquin 500 Mg Premixed Ivpb -) 500 mg in 100 mls @ 100 mls/hr IVPB Q24H [facility]; Protocol Last Admin: 05/30/18 17:19 Dose: 100 mls/hr Insulin Aspart (Novolog Vial Sliding Scale -) 1 vial SQ ACHS [facility]; Protocol Last Admin: 05/31/18 06:42 Dose: 4 units Levothyroxine Sodium (Synthroid -) 75 mcg PO DAILY@0700 [facility] Last Admin: 05/31/18 06:42 Dose: 75 mcg Losartan Potassium (Cozaar -) 25 mg PO DAILY [facility] Last Admin: 05/30/18 09:45 Dose: Not Given Methylprednisolone Sodium Succinate (Solu-Medrol -) 40 mg IVPUSH BID [facility] Last Admin: 05/30/18 21:16 Dose: 40 mg Montelukast Sodium (Singulair -) 10 mg PO HS [facility] Last Admin: 05/30/18 21:16 Dose: 10 mg Pantoprazole Sodium (Protonix -) 20 mg PO DAILY [facility] Last Admin: 05/30/18 09:43 Dose: 20 mg Potassium Chloride (K-Dur -) 10 meq PO BID [facility] Last Admin: 05/30/18 21:16 Dose: 10 meq Roflumilast (Daliresp -) 500 mcg PO DAILY [facility] Last Admin: 05/30/18 09:43 Dose: 500 mcg Rosuvastatin Calcium (Crestor -) 5 mg PO HS [facility] Last Admin: 05/30/18 21:16 Dose: 5 mg Sodium Chloride ([place] Nasal [place] -) 2 spray NS BID [facility] Last Admin: 05/30/18 21:16 Dose: 2 spray *Physical Exam Vital Signs Period Temp Pulse Resp BP Sys/Domínguez Pulse Ox Last 24 Hr 97.8 F-99.1 F 82-102 19-22 96-108/51-63 92-99 GENERAL: Awake, easily arousable to voice, oriented to self, not telling me location, month, or year HEAD: No signs of trauma, normocephalic, atraumatic EYES: PERRLA, EOMI ENT: Hearing grossly normal, nares patent, oropharynx clear without exudates. Moist mucosa LUNGS: on 4LNC (2LNC at home); moderate diffuse wheeze b/l HEART: Tachycardia with regular rhythm, normal S1 and S2, no murmurs appreciated , peripheral pulses normal and equal bilaterally ABDOMEN: Soft, nontender, normoactive bowel sounds. No guarding, no rebound EXTREMITIES : 2+ BLE edema to knee; RUE hand and forearm hematoma, Normal range of motion NEUROLOGICAL: Cranial nerves II through XII grossly intact. no focal sensorimotor deficits, finger to nose normal, gait deferred CBCD WBC 16.4 K/mm3 (4.0-10.0) H 05/30/18 05:30 RBC 2.89 M/mm3 (3.60-5.2) L 05/30/18 05:30 Hgb 8.5 GM/dL (10.7-15.3) L 05/30/18 05:30 Hct 27.2 % (32.4-45.2) L 05/30/18 05:30 MCV 94.2 fl (80-96) 05/30/18 05:30 MCHC 31.3 g/dl (32.0-36.0) L 05/30/18 05:30 RDW 13.1 % (11.6-15.6) 05/30/18 05:30 Plt Count 122 K/MM3 (134-434) L 05/30/18 05:30 MPV 9.3 fl (7.5-11.1) 05/30/18 05:30 CMP Sodium 140 mmol/L (136-145) 05/30/18 05:30 Potassium 4.2 mmol/L (3.5-5.1) 05/30/18 05:30 Chloride 86 mmol/L (98-107) L 05/30/18 05:30 Carbon Dioxide 53 mmol/L (21-32) H 05/30/18 05:30 Anion Gap 1 MMOL/L (8-16) L 05/30/18 05:30 BUN 27 mg/dL (7-18) H 05/30/18 05:30 Creatinine 0.7 mg/dL (0.55-1.3) 05/30/18 05:30 Creat Clearance w eGFR > 60 (>60) 05/30/18 05:30 Calcium 8.0 mg/dL (8.5-10.1) L 05/30/18 05:30 Total Bilirubin 0.5 mg/dL (0.2-1) 05/30/18 05:30 AST 24 U/L (15-37) 05/30/18 05:30 ALT 36 U/L (13-61) 05/30/18 05:30 Alkaline Phosphatase 133 U/L (45-117) H 05/30/18 05:30 Total Protein 4.7 g/dl (6.4-8.2) L 05/30/18 05:30 Albumin 2.3 g/dl (3.4-5.0) L 05/30/18 05:30 Medical Decision Making 57F w/ a history of COPD (2L NC at home), HTN, CAD, hypothyroidism who presents from [facility] for evaluation of increasing respiratory distress and associated confusion/lethargy. The patient was recently admitted for a COPD exacerbation. According to notes the family reported when the patient is having an exacerbation, it is typical for her to become confused. She was admitted and Pulmonary following closely. Fall overnight with head pain but no focal deficits , CT head completed and without acute changes. ENT note reviewed. Is alert and interactive now, neurologically stable. Likely AMS, Toxic metabolic encephalopathy 2/2 respiratory distress, continue optimization of COPD. Increased hydration, monitor BP, maintain normotensive range. Mental status at [facility] at this time.
--- NOTE | 2018-05-31 10:02 | PN ---
Progress Note, Physician Chief Complaint: Events noted Intermittent dyspnea, currently better and tolerated BIPAP last night Neuro input noted History of Present Illness: Patient was seen and examined. Chart was reviewed Denies chest pain or palpitations Complains of intermittent cough and SOB - Current Medication List Current Medications: Active Medications Acetaminophen (Tylenol -) 650 mg PO Q6H PRN PRN Reason: PAIN 1-7 Last Admin: 05/22/18 22:12 Dose: 650 mg Albuterol Sulfate (Ventolin 0.083% Nebulizer Soln -) 1 amp NEB Q8H PRN PRN Reason: SHORT OF BREATH/WHEEZING Last Admin: 05/30/18 20:10 Dose: 1 amp Albuterol Sulfate (Ventolin Hfa Inhaler -) 1 puff IH Q6H PRN PRN Reason: ASTHMA Aspirin (Asa -) 81 mg PO DAILY [facility] Last Admin: 05/30/18 09:43 Dose: 81 mg Heparin Sodium (Porcine) (Heparin -) 5,000 unit SQ BID [facility] Last Admin: 05/30/18 21:16 Dose: 5,000 unit Levofloxacin (Levaquin 500 Mg Premixed Ivpb -) 500 mg in 100 mls @ 100 mls/hr IVPB Q24H [facility]; Protocol Last Admin: 05/30/18 17:19 Dose: 100 mls/hr Insulin Aspart (Novolog Vial Sliding Scale -) 1 vial SQ ACHS [facility]; Protocol Last Admin: 05/31/18 06:42 Dose: 4 units Levothyroxine Sodium (Synthroid -) 75 mcg PO DAILY@0700 [facility] Last Admin: 05/31/18 06:42 Dose: 75 mcg Losartan Potassium (Cozaar -) 25 mg PO DAILY [facility] Last Admin: 05/30/18 09:45 Dose: Not Given Methylprednisolone Sodium Succinate (Solu-Medrol -) 40 mg IVPUSH BID [facility] Last Admin: 05/30/18 21:16 Dose: 40 mg Montelukast Sodium (Singulair -) 10 mg PO HS [facility] Last Admin: 05/30/18 21:16 Dose: 10 mg Pantoprazole Sodium (Protonix -) 20 mg PO DAILY [facility] Last Admin: 05/30/18 09:43 Dose: 20 mg Potassium Chloride (K-Dur -) 10 meq PO BID [facility] Last Admin: 05/30/18 21:16 Dose: 10 meq Roflumilast (Daliresp -) 500 mcg PO DAILY [facility] Last Admin: 05/30/18 09:43 Dose: 500 mcg Rosuvastatin Calcium (Crestor -) 5 mg PO HS [facility] Last Admin: 05/30/18 21:16 Dose: 5 mg Sodium Chloride ([place] Nasal [place] -) 2 spray NS BID [facility] Last Admin: 05/30/18 21:16 Dose: 2 spray - Objective Vital Signs: Vital Signs Temperature 98.5 F 05/31/18 08:40 Pulse Rate 82 05/31/18 06:00 Respiratory Rate 20 05/31/18 08:40 Blood Pressure 108/62 05/31/18 08:40 O2 Sat by Pulse Oximetry (%) 92 L 05/31/18 08:38 Eyes: Yes: PERRL HENT: Yes: Atraumatic Neck: Yes: Supple Cardiovascular: Yes: Regular Rate and Rhythm, S1, S2 Respiratory: Yes: Diminished Gastrointestinal: Yes: Normal Bowel Sounds, Soft. No: Tenderness Edema: No Additional Findings/Remarks: - Review of Systems Constitutional: denies: Chills, Fever Cardiovascular: denies: Chest Pain, (+) Shortness of Breath. denies: Palpitations Respiratory: reports: Cough, Orthopnea, SOB, SOB on Exertion. denies: Hemoptysis, PND Gastrointestinal: denies: Abdominal Pain, Constipation, Melena, Nausea, Rectal Bleeding, Vomiting Genitourinary: denies: Dysuria, Hematuria Neurological: denies: Dizziness, Headache, Seizure, Syncope Labs: CBC, BMP 05/30/18 05:30 05/30/18 05:30 Problem List - Problems (1) Altered mental status Code(s): R41.82 - ALTERED MENTAL STATUS, UNSPECIFIED Qualifiers: Altered mental status type: disorientation Qualified Code(s): R41.0 - Disorientation, unspecified (2) COPD exacerbation Code(s): J44.1 - CHRONIC OBSTRUCTIVE PULMONARY DISEASE W (ACUTE) EXACERBATION (3) Acute and chronic respiratory failure with hypoxia Code(s): J96.21 - ACUTE AND CHRONIC RESPIRATORY FAILURE WITH HYPOXIA (4) Acute diastolic (congestive) heart failure Code(s): I50.31 - ACUTE DIASTOLIC (CONGESTIVE) HEART FAILURE (5) Acute on chronic respiratory failure with hypoxia and hypercapnia Code(s): J96.21 - ACUTE AND CHRONIC RESPIRATORY FAILURE WITH HYPOXIA; J96.22 - ACUTE AND CHRONIC RESPIRATORY FAILURE WITH HYPERCAPNIA (6) Diastolic dysfunction Code(s): I51.9 - HEART DISEASE, UNSPECIFIED (7) Hyperlipidemia Code(s): E78.5 - HYPERLIPIDEMIA, UNSPECIFIED Qualifiers: Hyperlipidemia type: pure hypercholesterolemia Qualified Code(s): E78.00 - Pure hypercholesterolemia, unspecified; E78.0 - Pure hypercholesterolemia (8) Hypertension Code(s): I10 - ESSENTIAL (PRIMARY) HYPERTENSION Qualifiers: Hypertension type: essential hypertension Qualified Code(s): I10 - Essential (primary) hypertension (9) Hypothyroidism Code(s): E03.9 - HYPOTHYROIDISM, UNSPECIFIED Qualifiers: Hypothyroidism type: unspecified Qualified Code(s): E03.9 - Hypothyroidism , unspecified (10) Pneumonia Code(s): J18.9 - PNEUMONIA, UNSPECIFIED ORGANISM (11) Shortness of breath Code(s): R06.02 - SHORTNESS OF BREATH (12) Sleep apnea Code(s): G47.30 - SLEEP APNEA, UNSPECIFIED Qualifiers: Sleep apnea type: unspecified type Qualified Code(s): G47.30 - Sleep apnea , unspecified Assessment/Plan 1. Acute on chronic hypoxic and hypercapneic respiratory failure 2. Chronic obstructive pulmonary disease exacerbation 3. Probable pneumonia 4. Post toxic metabolic encephalopathy 5. CAD coronary artery calcification angina pectoris 6. Diastolic LV dysfunction with chronic class I NYHA classification LV failure 7. HTN/HCVD 8. Hypercholesterolemia/mixed dyslipidemia 9. Hypothyroidism 10. Right hand hematoma 11. Pre-renal azotemia resolving 12. Anemia and thrombocytopenia 13. OSAS PLAN: 1. Losartan 25 mg QD and Crestor 5 mg QD as tolerated 2. Diuretics as needed 3. Continue ASA 81 mg QD 4. Continue pulmonary treatment. BIPAP, bronchodilator and steroid taper 5. Empiric antibiotic course 6. DVT and GI prophylaxis Guarded Wilson Gill MD
--- NOTE | 2018-05-31 10:30 | PN ---
Progress Note, Physician History of Present Illness: pulmonary alert,on bipap,comfortable,-resp distress - Current Medication List Current Medications: Active Medications Acetaminophen (Tylenol -) 650 mg PO Q6H PRN PRN Reason: PAIN 1-7 Last Admin: 05/22/18 22:12 Dose: 650 mg Albuterol Sulfate (Ventolin 0.083% Nebulizer Soln -) 1 amp NEB Q8H PRN PRN Reason: SHORT OF BREATH/WHEEZING Last Admin: 05/31/18 07:40 Dose: 1 amp Albuterol Sulfate (Ventolin Hfa Inhaler -) 1 puff IH Q6H PRN PRN Reason: ASTHMA Aspirin (Asa -) 81 mg PO DAILY [facility] Last Admin: 05/30/18 09:43 Dose: 81 mg Heparin Sodium (Porcine) (Heparin -) 5,000 unit SQ BID [facility] Last Admin: 05/30/18 21:16 Dose: 5,000 unit Levofloxacin (Levaquin 500 Mg Premixed Ivpb -) 500 mg in 100 mls @ 100 mls/hr IVPB Q24H [facility]; Protocol Last Admin: 05/30/18 17:19 Dose: 100 mls/hr Insulin Aspart (Novolog Vial Sliding Scale -) 1 vial SQ ACHS [facility]; Protocol Last Admin: 05/31/18 06:42 Dose: 4 units Levothyroxine Sodium (Synthroid -) 75 mcg PO DAILY@0700 [facility] Last Admin: 05/31/18 06:42 Dose: 75 mcg Losartan Potassium (Cozaar -) 25 mg PO DAILY [facility] Last Admin: 05/30/18 09:45 Dose: Not Given Methylprednisolone Sodium Succinate (Solu-Medrol -) 40 mg IVPUSH BID [facility] Last Admin: 05/30/18 21:16 Dose: 40 mg Montelukast Sodium (Singulair -) 10 mg PO HS [facility] Last Admin: 05/30/18 21:16 Dose: 10 mg Pantoprazole Sodium (Protonix -) 20 mg PO DAILY [facility] Last Admin: 05/30/18 09:43 Dose: 20 mg Potassium Chloride (K-Dur -) 10 meq PO BID [facility] Last Admin: 05/30/18 21:16 Dose: 10 meq Roflumilast (Daliresp -) 500 mcg PO DAILY [facility] Last Admin: 05/30/18 09:43 Dose: 500 mcg Rosuvastatin Calcium (Crestor -) 5 mg PO HS [facility] Last Admin: 05/30/18 21:16 Dose: 5 mg Sodium Chloride ([place] Nasal [place] -) 2 spray NS BID [facility] Last Admin: 05/30/18 21:16 Dose: 2 spray - Objective Vital Signs: Vital Signs Temperature 98.5 F 05/31/18 08:40 Pulse Rate 82 05/31/18 06:00 Respiratory Rate 20 05/31/18 08:40 Blood Pressure 108/62 05/31/18 08:40 O2 Sat by Pulse Oximetry (%) 98 05/31/18 10:03 Constitutional: Yes: Well Nourished, Calm Eyes: Yes: WNL HENT: Yes: WNL Neck: Yes: WNL Cardiovascular: Yes: Regular Rate and Rhythm, S1, S2 Respiratory: Yes: Diminished, On BiPap Gastrointestinal: Yes: Normal Bowel Sounds, Soft Extremities: Yes: WNL Edema: No Labs: CBC, BMP 05/30/18 05:30 05/30/18 05:30 INR, PTT INR 0.97 (0.83-1.09) 05/19/18 16:15 Problem List - Problems (1) Altered mental status Code(s): R41.82 - ALTERED MENTAL STATUS, UNSPECIFIED Qualifiers: Altered mental status type: disorientation Qualified Code(s): R41.0 - Disorientation, unspecified (2) COPD exacerbation Code(s): J44.1 - CHRONIC OBSTRUCTIVE PULMONARY DISEASE W (ACUTE) EXACERBATION (3) Acute on chronic respiratory failure with hypoxia and hypercapnia Code(s): J96.21 - ACUTE AND CHRONIC RESPIRATORY FAILURE WITH HYPOXIA; J96.22 - ACUTE AND CHRONIC RESPIRATORY FAILURE WITH HYPERCAPNIA (4) CHF (congestive heart failure) Code(s): I50.9 - HEART FAILURE, UNSPECIFIED (5) COPD exacerbation Code(s): J44.1 - CHRONIC OBSTRUCTIVE PULMONARY DISEASE W (ACUTE) EXACERBATION (6) Diastolic dysfunction Code(s): I51.9 - HEART DISEASE, UNSPECIFIED (7) Sleep apnea Code(s): G47.30 - SLEEP APNEA, UNSPECIFIED Qualifiers: Sleep apnea type: unspecified type Qualified Code(s): G47.30 - Sleep apnea , unspecified Assessment/Plan IMP ACUTE ON CHRONIC HYPOXEMIC HYPERCAPNEIC RESPIRATORY FAILURE COPD O2 DEPENDENT PNEUMONIA ALTERED MENTAL STATUS CHF HYPOTHYROID NAVDEEP PLAN STEROID TAPER ABX PER ID INHALED BRONCHODILATORS O2 BIPAP AT NIGHT AND PRN F/U CHEST X-RAY TODAY Problem List - Problems (1) Altered mental status Code(s): R41.82 - ALTERED MENTAL STATUS, UNSPECIFIED Qualifiers: Altered mental status type: disorientation Qualified Code(s): R41.0 - Disorientation, unspecified (2) COPD exacerbation Code(s): J44.1 - CHRONIC OBSTRUCTIVE PULMONARY DISEASE W (ACUTE) EXACERBATION (3) Acute on chronic respiratory failure with hypoxia and hypercapnia Code(s): J96.21 - ACUTE AND CHRONIC RESPIRATORY FAILURE WITH HYPOXIA; J96.22 - ACUTE AND CHRONIC RESPIRATORY FAILURE WITH HYPERCAPNIA (4) CHF (congestive heart failure) Code(s): I50.9 - HEART FAILURE, UNSPECIFIED (5) COPD exacerbation Code(s): J44.1 - CHRONIC OBSTRUCTIVE PULMONARY DISEASE W (ACUTE) EXACERBATION (6) Diastolic dysfunction Code(s): I51.9 - HEART DISEASE, UNSPECIFIED (7) Sleep apnea Code(s): G47.30 - SLEEP APNEA, UNSPECIFIED
[2018-05-31] MEDS: ASPIRIN 81 MG CHEWABLE TABLETS PO SCH (10:34)
[2018-05-31] MEDS: PANTOPRAZOLE 20 MG TABLET (FP) PO SCH (10:34)
[2018-05-31] MEDS: HEPARIN NA (PORCINE) 5,000 UNITS/ML 1ML VIAL SQ SCH ×2 (10:34→23:16)
[2018-05-31] MEDS: LOSARTAN POTASSIUM 25 MG TABLET PO SCH (10:35)
[2018-05-31] MEDS: ROFLUMILAST 500 MCG TABLET PO SCH (10:35)
[2018-05-31] MEDS: SODIUM CHLORIDE NASAL SPRAY 44 ML BOTTLE NS SCH ×2 (10:35→23:17)
[2018-05-31] MEDS: POTASSIUM CHLORIDE TABS 10 MEQ TABLET.ER (FP) PO SCH ×2 (10:35→23:16)
[2018-05-31] MEDS: methylPREDNISolone NA SUCC 40 MG/1 ML VIAL IVPUSH SCH (10:36)
--- NOTE | 2018-05-31 11:50 | PN ---
Progress Note (short form) - Note Progress Note: lmuch more alert appetite improving stood at side of bed with PT- feels stronger still moist cough pen allergy- welts Vital Signs Period Temp Pulse Resp BP Sys/Domínguez Pulse Ox Last 24 Hr 97.8 F-99.1 F 82-102 19-22 96-108/51-63 92-99 cor-rrr lungs bilateral rhonchi abd soft,nt ext no edema multiple ecchymoses, hand hematoma is reduced in size CBC, BMP 05/30/18 05:30 05/30/18 05:30 Microbiology 05/27/18 21:17 Urine - Urine Clean Catch Urine Culture - Final Enterococcus Faecalis 05/25/18 18:47 Urine For Antigen Detection Legionella Antigen - Final 05/25/18 18:47 Urine For Antigen Detection Streptococcus pneumoniae Antigen (M - Final 05/19/18 16:27 Blood - Peripheral Venous Blood Culture - Final NO GROWTH AFTER 5 DAYS INCUBATION 05/19/18 16:27 Blood - Peripheral Venous Blood Culture - Final NO GROWTH AFTER 5 DAYS INCUBATION 05/20/18 13:35 Urine - Urine Clean Catch Urine Culture - Final Enterococcus Faecalis Current Medications Acetaminophen (Tylenol -) 650 mg PO Q6H PRN PRN Reason: PAIN 1-7 Last Admin: 05/22/18 22:12 Dose: 650 mg Albuterol Sulfate (Ventolin 0.083% Nebulizer Soln -) 1 amp NEB Q8H PRN PRN Reason: SHORT OF BREATH/WHEEZING Last Admin: 05/31/18 11:17 Dose: 1 amp Albuterol Sulfate (Ventolin Hfa Inhaler -) 1 puff IH Q6H PRN PRN Reason: ASTHMA Aspirin (Asa -) 81 mg PO DAILY [facility] Last Admin: 05/31/18 10:34 Dose: 81 mg Heparin Sodium (Porcine) (Heparin -) 5,000 unit SQ BID [facility] Last Admin: 05/31/18 10:34 Dose: 5,000 unit Levofloxacin (Levaquin 500 Mg Premixed Ivpb -) 500 mg in 100 mls @ 100 mls/hr IVPB Q24H [facility]; Protocol Last Admin: 05/30/18 17:19 Dose: 100 mls/hr Insulin Aspart (Novolog Vial Sliding Scale -) 1 vial SQ ACHS [facility]; Protocol Last Admin: 05/31/18 11:23 Dose: 2 units Levothyroxine Sodium (Synthroid -) 75 mcg PO DAILY@0700 [facility] Last Admin: 05/31/18 06:42 Dose: 75 mcg Losartan Potassium (Cozaar -) 25 mg PO DAILY [facility] Last Admin: 05/31/18 10:35 Dose: Not Given Methylprednisolone Sodium Succinate (Solu-Medrol -) 40 mg IVPUSH BID [facility] Last Admin: 05/31/18 10:36 Dose: 40 mg Montelukast Sodium (Singulair -) 10 mg PO HS [facility] Last Admin: 05/30/18 21:16 Dose: 10 mg Pantoprazole Sodium (Protonix -) 20 mg PO DAILY [facility] Last Admin: 05/31/18 10:34 Dose: 20 mg Potassium Chloride (K-Dur -) 10 meq PO BID [facility] Last Admin: 05/31/18 10:35 Dose: 10 meq Roflumilast (Daliresp -) 500 mcg PO DAILY [facility] Last Admin: 05/31/18 10:35 Dose: 500 mcg Rosuvastatin Calcium (Crestor -) 5 mg PO HS [facility] Last Admin: 05/30/18 21:16 Dose: 5 mg Sodium Chloride ([place] Nasal [place] -) 2 spray NS BID [facility] Last Admin: 05/31/18 10:35 Dose: 2 spray a/p RLL pneumonia- pneumococcal antigen positive continue levaquin Day #7- plan to switch to po levaquin to complete 10 days copd exacerbation-remains on solumedrol leukocytosis secondary to steroids pen allergy noted clinically improved please call back if needed
--- NOTE | 2018-05-31 11:50 | PN ---
Progress Note (short form) - Note Progress Note: PROGRESS NOTE FOR HEMATOLOGY/ONCOLOGY Patient seen and examined by me at bedside Tolerated BIPAP overnight Patient less short of breath but still tachypneic at rest Continues to have cough Otherwise, denies any fever, chills, nausea,vomiting, chest pain, dizziness, melena, hematochezia, dysuria, hematuria Vital Signs Temperature 98.5 F 05/31/18 08:40 Pulse Rate 82 05/31/18 06:00 Respiratory Rate 20 05/31/18 08:40 Blood Pressure 108/62 05/31/18 08:40 O2 Sat by Pulse Oximetry (%) 92 L 05/31/18 11:16 PHYSICAL EXAMINATION: GENERAL: Awake, alert, and fully oriented, in no acute distress. EYES: Pupils equal, round and reactive to light, extraocular movements intact, sclera anicteric, conjunctiva clear ENT: Oropharynx clear without exudates. Moist mucous membranes. LUNGS: On NC with some accessory muscle use. Scattered Rhonchi throughout lung bases bilaterally HEART: Tachycardic with regular rhythm, normal S1 and S2. JUAN LUIS' ABDOMEN: Soft, Obese nontender, not distended, normoactive bowel sounds, no guarding, no rebound, no masses. No hepatomegaly or splenomegaly. (+) Multiple scattered ecchymosis EXTREMITIES: No peripheral edema. SKIN: Warm, dry, normal turgor, (+) several echymosis. Laboratory Tests CBC, BMP 05/30/18 05:30 05/30/18 05:30 ASSESSMENT/PLAN: Patient is a 57 year old female who presented for AMS, lethargy and shortness of breath and was found to have COPD exacerbation. Throughout hospitalization, patient was found to have anemia and thrombocytopenia and we were consulted for further evaluation and recommendations. Problem List: Anemia of chronic disease Thrombocytopenia may be 2/2 to underlying infection COPD on 02 Acute on chronic hypoxic and hypercapneic respiratory failure Altered mental status Toxic metabolic enchelopathy CAD Diastolic LV dysfunction HTN HLD Hypothyroidism Right hand hematoma PLAN: -LDH elevated, but patient has normal retic count with elevated hapto not consistent with hemolytic anemia. Brock test pending. -Iron studies compatible with anemia of chronic disease -Thrombocytopenia may be secondary to underlying infection -Continue to monitor
[2018-05-31] MEDS: ROSUVASTATIN CA 5 MG TABLET (FP) PO SCH (23:16)
[2018-05-31] MEDS: MONTELUKAST NA 10 MG TABLET PO SCH (23:16)
[2018-06-01] MEDS: methylPREDNISolone NA SUCC 40 MG/1 ML VIAL IVPUSH SCH ×3 (03:18→22:27)
[2018-06-01] MEDS: ALBUTEROL SO4 0.083% IH SOL 2.5 MG/3 ML VIAL.NEB. NEB PRN ×3 (05:30→17:15)
[2018-06-01] MEDS: LEVOTHYROXINE NA 75 MCG TABLET (FP) PO SCH (06:20)
[2018-06-01] MEDS: INSULIN SLIDING SCALE (NOVOLOG) 1 VIAL SQ SCH ×4 (06:20→22:33)
--- NOTE | 2018-06-01 06:56 | PN ---
Progress Note, Physician Chief Complaint: more dyspneic today despite using bipap last night; to have albuterol nebs and IV steroids now CXR done results pending pt is uncomfortable in bed, wants to go to chair - d/w PT at bedside, needs 2 persons to move her to ensure she does not fall will d/w pulmonary - no DC today - Current Medication List Current Medications: Active Medications Acetaminophen (Tylenol -) 650 mg PO Q6H PRN PRN Reason: PAIN 1-7 Last Admin: 05/22/18 22:12 Dose: 650 mg Albuterol Sulfate (Ventolin 0.083% Nebulizer Soln -) 1 amp NEB Q8H PRN PRN Reason: SHORT OF BREATH/WHEEZING Last Admin: 06/01/18 05:30 Dose: 1 amp Albuterol Sulfate (Ventolin Hfa Inhaler -) 1 puff IH Q6H PRN PRN Reason: ASTHMA Aspirin (Asa -) 81 mg PO DAILY [facility] Last Admin: 05/31/18 10:34 Dose: 81 mg Heparin Sodium (Porcine) (Heparin -) 5,000 unit SQ BID [facility] Last Admin: 05/31/18 23:16 Dose: 5,000 unit Levofloxacin (Levaquin 500 Mg Premixed Ivpb -) 500 mg in 100 mls @ 100 mls/hr IVPB Q24H [facility]; Protocol Last Admin: 05/31/18 17:41 Dose: 100 mls/hr Insulin Aspart (Novolog Vial Sliding Scale -) 1 vial SQ ACHS [facility]; Protocol Last Admin: 06/01/18 06:20 Dose: Not Given Levothyroxine Sodium (Synthroid -) 75 mcg PO DAILY@0700 [facility] Last Admin: 06/01/18 06:20 Dose: 75 mcg Losartan Potassium (Cozaar -) 25 mg PO DAILY [facility] Last Admin: 05/31/18 10:35 Dose: Not Given Methylprednisolone Sodium Succinate (Solu-Medrol -) 40 mg IVPUSH BID [facility] Last Admin: 06/01/18 03:18 Dose: Not Given Montelukast Sodium (Singulair -) 10 mg PO HS [facility] Last Admin: 05/31/18 23:16 Dose: 10 mg Pantoprazole Sodium (Protonix -) 20 mg PO DAILY [facility] Last Admin: 05/31/18 10:34 Dose: 20 mg Potassium Chloride (K-Dur -) 10 meq PO BID [facility] Last Admin: 05/31/18 23:16 Dose: 10 meq Roflumilast (Daliresp -) 500 mcg PO DAILY [facility] Last Admin: 05/31/18 10:35 Dose: 500 mcg Rosuvastatin Calcium (Crestor -) 5 mg PO HS [facility] Last Admin: 05/31/18 23:16 Dose: 5 mg Sodium Chloride ([place] Nasal [place] -) 2 spray NS BID [facility] Last Admin: 05/31/18 23:17 Dose: 2 spray - Objective Vital Signs: Vital Signs Temperature 98.2 F 06/01/18 02:04 Pulse Rate 102 H 06/01/18 06:00 Respiratory Rate 20 06/01/18 06:00 Blood Pressure 118/57 L 06/01/18 06:00 O2 Sat by Pulse Oximetry (%) 97 06/01/18 03:48 Constitutional: Yes: Anxious, Mild Distress Eyes: Yes: Conjunctiva Clear HENT: Yes: Atraumatic Neck: Yes: Supple Cardiovascular: Yes: Regular Rate and Rhythm Respiratory: Yes: Wheezes (expiratory bilat) Gastrointestinal: Yes: Soft. No: Ascites Genitourinary: No: CVA Tenderness - Left, CVA Tenderness - Right, Hematuria Extremities: No: Cold, Cool, Cyanosis Edema: No Integumentary: Yes: Bruising (R hand and RUE better) Neurological: Yes: WNL, Alert, Oriented ...Motor Strength: WNL Psychiatric: Yes: WNL, Alert, Oriented. No: Agitated Labs: CBC, BMP 05/30/18 05:30 05/30/18 05:30 INR, PTT INR 0.97 (0.83-1.09) 05/19/18 16:15 - ....Imaging Other: Report Reviewed Assessment/Plan The patient is a 57F w/ a history of severe advanced COPD O2 dependant and frequent Bipap use, HTN, CAD, hypothyroidism admitted with acute on chronic COPD exacerbation. s/p Fall. Sinusitis, PNA exacrebation of COPD again pulmonary, neurology, ID f/u and ENT f/u iv steroids per pulm, nebs, O2 Bipap to use it as ordered, dw pt importance of bipap use she said she will use it antibiotics per ID gastric pfx while on steroids; BGM and GLU control while on steroids R hand hematoma improved; restarted sq heparin labs f/u low PLT, anemia: heme f/u; falls decubs DVT PFX prognosis guarded d/w pt and staff
--- NOTE | 2018-06-01 09:38 | PN ---
Progress Note (short form) - Note Progress Note: Neurology History of Present Illness 57F w/ a history of COPD (2L NC at home), HTN, CAD, hypothyroidism who presents from [facility] for evaluation of increasing respiratory distress and associated confusion/lethargy. The patient was recently admitted for a COPD exacerbation. According to notes the family reported when the patient is having an exacerbation, it is typical for her to become confused. She was admitted and Pulmonary following closely. Patient experienced fall last night, hospitalist note reviewed, with head pain. CT head completed and without acute changes. Neurologically without focal deficits. Getting ongoing medical mgmt. Is able to tell me she's at [place], thought it was may but knows the year. More alert and awake, interactive, less respiratory distress this AM while eating. ENT note reviewed and discussed with patient, nasal congestion, ABx and saline spray recommended. Seen right before she was going to get PT today. Respiratory status being monitored. Allergies/Adverse Reactions: Allergies Allergy/AdvReac Type Severity Reaction Status Date / Time Penicillins Allergy Severe Difficulty Verified 05/19/18 16:04 Breathing Active Medications Acetaminophen (Tylenol -) 650 mg PO Q6H PRN PRN Reason: PAIN 1-7 Last Admin: 05/22/18 22:12 Dose: 650 mg Albuterol Sulfate (Ventolin 0.083% Nebulizer Soln -) 1 amp NEB Q8H PRN PRN Reason: SHORT OF BREATH/WHEEZING Last Admin: 06/01/18 07:35 Dose: 1 amp Albuterol Sulfate (Ventolin Hfa Inhaler -) 1 puff IH Q6H PRN PRN Reason: ASTHMA Aspirin (Asa -) 81 mg PO DAILY [facility] Last Admin: 05/31/18 10:34 Dose: 81 mg Heparin Sodium (Porcine) (Heparin -) 5,000 unit SQ BID [facility] Last Admin: 05/31/18 23:16 Dose: 5,000 unit Levofloxacin (Levaquin 500 Mg Premixed Ivpb -) 500 mg in 100 mls @ 100 mls/hr IVPB Q24H [facility]; Protocol Last Admin: 05/31/18 17:41 Dose: 100 mls/hr Insulin Aspart (Novolog Vial Sliding Scale -) 1 vial SQ ACHS [facility]; Protocol Last Admin: 06/01/18 06:20 Dose: Not Given Levothyroxine Sodium (Synthroid -) 75 mcg PO DAILY@0700 [facility] Last Admin: 06/01/18 06:20 Dose: 75 mcg Losartan Potassium (Cozaar -) 25 mg PO DAILY [facility] Last Admin: 05/31/18 10:35 Dose: Not Given Methylprednisolone Sodium Succinate (Solu-Medrol -) 40 mg IVPUSH BID [facility] Last Admin: 06/01/18 03:18 Dose: Not Given Montelukast Sodium (Singulair -) 10 mg PO HS [facility] Last Admin: 05/31/18 23:16 Dose: 10 mg Pantoprazole Sodium (Protonix -) 20 mg PO DAILY [facility] Last Admin: 05/31/18 10:34 Dose: 20 mg Potassium Chloride (K-Dur -) 10 meq PO BID [facility] Last Admin: 05/31/18 23:16 Dose: 10 meq Roflumilast (Daliresp -) 500 mcg PO DAILY [facility] Last Admin: 05/31/18 10:35 Dose: 500 mcg Rosuvastatin Calcium (Crestor -) 5 mg PO HS [facility] Last Admin: 05/31/18 23:16 Dose: 5 mg Sodium Chloride ([place] Nasal [place] -) 2 spray NS BID [facility] Last Admin: 05/31/18 23:17 Dose: 2 spray *Physical Exam Vital Signs Period Temp Pulse Resp BP Sys/Domínguez Pulse Ox Last 24 Hr 97.8 F-98.2 F 86-105 20-20 105-126/57-71 92-99 GENERAL: Awake, easily arousable to voice, oriented to self, not telling me location, month, or year HEAD: No signs of trauma, normocephalic, atraumatic EYES: PERRLA, EOMI ENT: Hearing grossly normal, nares patent, oropharynx clear without exudates. Moist mucosa LUNGS: on 4LNC (2LNC at home); moderate diffuse wheeze b/l HEART: Tachycardia with regular rhythm, normal S1 and S2, no murmurs appreciated , peripheral pulses normal and equal bilaterally ABDOMEN: Soft, nontender, normoactive bowel sounds. No guarding, no rebound EXTREMITIES : 2+ BLE edema to knee; RUE hand and forearm hematoma, Normal range of motion NEUROLOGICAL: Cranial nerves II through XII grossly intact. no focal sensorimotor deficits, finger to nose normal, gait deferred CBCD WBC 16.4 K/mm3 (4.0-10.0) H 05/30/18 05:30 RBC 2.89 M/mm3 (3.60-5.2) L 05/30/18 05:30 Hgb 8.5 GM/dL (10.7-15.3) L 05/30/18 05:30 Hct 27.2 % (32.4-45.2) L 05/30/18 05:30 MCV 94.2 fl (80-96) 05/30/18 05:30 MCHC 31.3 g/dl (32.0-36.0) L 05/30/18 05:30 RDW 13.1 % (11.6-15.6) 05/30/18 05:30 Plt Count 122 K/MM3 (134-434) L 05/30/18 05:30 MPV 9.3 fl (7.5-11.1) 05/30/18 05:30 CMP Sodium 140 mmol/L (136-145) 05/30/18 05:30 Potassium 4.2 mmol/L (3.5-5.1) 05/30/18 05:30 Chloride 86 mmol/L (98-107) L 05/30/18 05:30 Carbon Dioxide 53 mmol/L (21-32) H 05/30/18 05:30 Anion Gap 1 MMOL/L (8-16) L 05/30/18 05:30 BUN 27 mg/dL (7-18) H 05/30/18 05:30 Creatinine 0.7 mg/dL (0.55-1.3) 05/30/18 05:30 Creat Clearance w eGFR > 60 (>60) 05/30/18 05:30 Random Glucose 175 mg/dL (74-106) H 05/30/18 05:30 Calcium 8.0 mg/dL (8.5-10.1) L 05/30/18 05:30 Total Bilirubin 0.5 mg/dL (0.2-1) 05/30/18 05:30 AST 24 U/L (15-37) 05/30/18 05:30 ALT 36 U/L (13-61) 05/30/18 05:30 Alkaline Phosphatase 133 U/L (45-117) H 05/30/18 05:30 Total Protein 4.7 g/dl (6.4-8.2) L 05/30/18 05:30 Albumin 2.3 g/dl (3.4-5.0) L 05/30/18 05:30 CARDIAC ENZYMES Creatine Kinase 23 IU/L (26-192) L 05/24/18 19:35 Troponin I 0.05 ng/ml (0.00-0.05) 05/25/18 05:30 Medical Decision Making 57F w/ a history of COPD (2L NC at home), HTN, CAD, hypothyroidism who presents from [facility] for evaluation of increasing respiratory distress and associated confusion/lethargy. The patient was recently admitted for a COPD exacerbation. According to notes the family reported when the patient is having an exacerbation, it is typical for her to become confused. She was admitted and Pulmonary following closely. Repeat CT head completed and without acute changes. ENT note reviewed. Is alert and interactive now, neurologically stable. Likely AMS, Toxic metabolic encephalopathy 2/2 respiratory distress, continue optimization of COPD. Increased hydration, monitor BP, maintain normotensive range. Mental status at [place] at this time. Fall precautions, physical therapy as tolerated
[2018-06-01] MEDS ORDERED: PT OWN MED DRAWER 7, Y5N ONE ×2 (10:06→12:30)
--- NOTE | 2018-06-01 10:22 | PN ---
Progress Note, Physician History of Present Illness: pulmonary alert,oob-chair,comfortable on nasal cannula - Current Medication List Current Medications: Active Medications Acetaminophen (Tylenol -) 650 mg PO Q6H PRN PRN Reason: PAIN 1-7 Last Admin: 05/22/18 22:12 Dose: 650 mg Albuterol Sulfate (Ventolin 0.083% Nebulizer Soln -) 1 amp NEB Q8H PRN PRN Reason: SHORT OF BREATH/WHEEZING Last Admin: 06/01/18 07:35 Dose: 1 amp Albuterol Sulfate (Ventolin Hfa Inhaler -) 1 puff IH Q6H PRN PRN Reason: ASTHMA Aspirin (Asa -) 81 mg PO DAILY [facility] Last Admin: 05/31/18 10:34 Dose: 81 mg Heparin Sodium (Porcine) (Heparin -) 5,000 unit SQ BID [facility] Last Admin: 05/31/18 23:16 Dose: 5,000 unit Levofloxacin (Levaquin 500 Mg Premixed Ivpb -) 500 mg in 100 mls @ 100 mls/hr IVPB Q24H [facility]; Protocol Last Admin: 05/31/18 17:41 Dose: 100 mls/hr Insulin Aspart (Novolog Vial Sliding Scale -) 1 vial SQ ACHS [facility]; Protocol Last Admin: 06/01/18 06:20 Dose: Not Given Levothyroxine Sodium (Synthroid -) 75 mcg PO DAILY@0700 [facility] Last Admin: 06/01/18 06:20 Dose: 75 mcg Losartan Potassium (Cozaar -) 25 mg PO DAILY [facility] Last Admin: 05/31/18 10:35 Dose: Not Given Methylprednisolone Sodium Succinate (Solu-Medrol -) 40 mg IVPUSH BID [facility] Last Admin: 06/01/18 03:18 Dose: Not Given Montelukast Sodium (Singulair -) 10 mg PO HS [facility] Last Admin: 05/31/18 23:16 Dose: 10 mg Pantoprazole Sodium (Protonix -) 20 mg PO DAILY [facility] Last Admin: 05/31/18 10:34 Dose: 20 mg Potassium Chloride (K-Dur -) 10 meq PO BID [facility] Last Admin: 05/31/18 23:16 Dose: 10 meq Roflumilast (Daliresp -) 500 mcg PO DAILY [facility] Last Admin: 05/31/18 10:35 Dose: 500 mcg Rosuvastatin Calcium (Crestor -) 5 mg PO HS [facility] Last Admin: 05/31/18 23:16 Dose: 5 mg Sodium Chloride ([place] Nasal [place] -) 2 spray NS BID [facility] Last Admin: 05/31/18 23:17 Dose: 2 spray - Objective Vital Signs: Vital Signs Temperature 98.2 F 06/01/18 02:04 Pulse Rate 102 H 06/01/18 06:00 Respiratory Rate 20 06/01/18 06:00 Blood Pressure 118/57 L 06/01/18 06:00 O2 Sat by Pulse Oximetry (%) 96 06/01/18 07:34 Constitutional: Yes: Well Nourished, Calm Eyes: Yes: WNL HENT: Yes: WNL Neck: Yes: WNL Cardiovascular: Yes: Regular Rate and Rhythm, S1, S2 Respiratory: Yes: Wheezes (few wheezes) Gastrointestinal: Yes: Normal Bowel Sounds, Soft Extremities: Yes: WNL Edema: No Labs: CBC, BMP Problem List - Problems (1) Altered mental status Code(s): R41.82 - ALTERED MENTAL STATUS, UNSPECIFIED Qualifiers: Altered mental status type: disorientation Qualified Code(s): R41.0 - Disorientation, unspecified (2) COPD exacerbation Code(s): J44.1 - CHRONIC OBSTRUCTIVE PULMONARY DISEASE W (ACUTE) EXACERBATION (3) Acute on chronic respiratory failure with hypoxia and hypercapnia Code(s): J96.21 - ACUTE AND CHRONIC RESPIRATORY FAILURE WITH HYPOXIA; J96.22 - ACUTE AND CHRONIC RESPIRATORY FAILURE WITH HYPERCAPNIA (4) CHF (congestive heart failure) Code(s): I50.9 - HEART FAILURE, UNSPECIFIED (5) COPD exacerbation Code(s): J44.1 - CHRONIC OBSTRUCTIVE PULMONARY DISEASE W (ACUTE) EXACERBATION (6) Diastolic dysfunction Code(s): I51.9 - HEART DISEASE, UNSPECIFIED (7) Sleep apnea Code(s): G47.30 - SLEEP APNEA, UNSPECIFIED Qualifiers: Sleep apnea type: unspecified type Qualified Code(s): G47.30 - Sleep apnea , unspecified Assessment/Plan IMP ACUTE ON CHRONIC HYPOXEMIC HYPERCAPNEIC RESPIRATORY FAILURE COPD O2 DEPENDENT PNEUMONIA ALTERED MENTAL STATUS CHF HYPOTHYROID NAVDEEP PLAN STEROID TAPER ABX PER ID INHALED BRONCHODILATORS O2 BIPAP AT NIGHT AND PRN Problem List - Problems (1) Altered mental status Code(s): R41.82 - ALTERED MENTAL STATUS, UNSPECIFIED Qualifiers: Altered mental status type: disorientation Qualified Code(s): R41.0 - Disorientation, unspecified (2) COPD exacerbation Code(s): J44.1 - CHRONIC OBSTRUCTIVE PULMONARY DISEASE W (ACUTE) EXACERBATION (3) Acute on chronic respiratory failure with hypoxia and hypercapnia Code(s): J96.21 - ACUTE AND CHRONIC RESPIRATORY FAILURE WITH HYPOXIA; J96.22 - ACUTE AND CHRONIC RESPIRATORY FAILURE WITH HYPERCAPNIA (4) CHF (congestive heart failure) Code(s): I50.9 - HEART FAILURE, UNSPECIFIED (5) COPD exacerbation Code(s): J44.1 - CHRONIC OBSTRUCTIVE PULMONARY DISEASE W (ACUTE) EXACERBATION (6) Diastolic dysfunction Code(s): I51.9 - HEART DISEASE, UNSPECIFIED (7) Sleep apnea Code(s): G47.30 - SLEEP APNEA, UNSPECIFIED
[2018-06-01] MEDS: POTASSIUM CHLORIDE TABS 10 MEQ TABLET.ER (FP) PO SCH ×2 (10:55→22:22)
[2018-06-01] MEDS: LOSARTAN POTASSIUM 25 MG TABLET PO SCH (10:55)
[2018-06-01] MEDS: ASPIRIN 81 MG CHEWABLE TABLETS PO SCH (10:55)
[2018-06-01] MEDS: PANTOPRAZOLE 20 MG TABLET (FP) PO SCH (10:55)
[2018-06-01] MEDS: HEPARIN NA (PORCINE) 5,000 UNITS/ML 1ML VIAL SQ SCH ×2 (10:56→22:22)
--- NOTE | 2018-06-01 11:34 | PN ---
Progress Note, Physician Chief Complaint: Events noted Sitting in chair Intermittent SOB but states better History of Present Illness: Patient was seen and examined. Chart was reviewed Denies chest pain or palpitations Tolerating therapy. Mild wheeze - Current Medication List Current Medications: Active Medications Acetaminophen (Tylenol -) 650 mg PO Q6H PRN PRN Reason: PAIN 1-7 Last Admin: 05/22/18 22:12 Dose: 650 mg Albuterol Sulfate (Ventolin 0.083% Nebulizer Soln -) 1 amp NEB Q8H PRN PRN Reason: SHORT OF BREATH/WHEEZING Last Admin: 06/01/18 07:35 Dose: 1 amp Albuterol Sulfate (Ventolin Hfa Inhaler -) 1 puff IH Q6H PRN PRN Reason: ASTHMA Aspirin (Asa -) 81 mg PO DAILY [facility] Last Admin: 06/01/18 10:55 Dose: 81 mg Heparin Sodium (Porcine) (Heparin -) 5,000 unit SQ BID [facility] Last Admin: 06/01/18 10:56 Dose: 5,000 unit Levofloxacin (Levaquin 500 Mg Premixed Ivpb -) 500 mg in 100 mls @ 100 mls/hr IVPB Q24H [facility]; Protocol Last Admin: 05/31/18 17:41 Dose: 100 mls/hr Insulin Aspart (Novolog Vial Sliding Scale -) 1 vial SQ ACHS [facility]; Protocol Last Admin: 06/01/18 06:20 Dose: Not Given Levothyroxine Sodium (Synthroid -) 75 mcg PO DAILY@0700 [facility] Last Admin: 06/01/18 06:20 Dose: 75 mcg Losartan Potassium (Cozaar -) 25 mg PO DAILY [facility] Last Admin: 06/01/18 10:55 Dose: 25 mg Methylprednisolone Sodium Succinate (Solu-Medrol -) 40 mg IVPUSH BID [facility] Last Admin: 06/01/18 03:18 Dose: Not Given Montelukast Sodium (Singulair -) 10 mg PO HS [facility] Last Admin: 05/31/18 23:16 Dose: 10 mg Pantoprazole Sodium (Protonix -) 20 mg PO DAILY [facility] Last Admin: 06/01/18 10:55 Dose: 20 mg Potassium Chloride (K-Dur -) 10 meq PO BID [facility] Last Admin: 06/01/18 10:55 Dose: 10 meq Roflumilast (Daliresp -) 500 mcg PO DAILY [facility] Last Admin: 05/31/18 10:35 Dose: 500 mcg Rosuvastatin Calcium (Crestor -) 5 mg PO HS [facility] Last Admin: 05/31/18 23:16 Dose: 5 mg Sodium Chloride ([place] Nasal [place] -) 2 spray NS BID [facility] Last Admin: 05/31/18 23:17 Dose: 2 spray - Objective Vital Signs: Vital Signs Temperature 98 F 06/01/18 10:52 Pulse Rate 107 H 06/01/18 10:52 Respiratory Rate 20 06/01/18 10:52 Blood Pressure 106/65 06/01/18 10:52 O2 Sat by Pulse Oximetry (%) 96 06/01/18 07:34 Eyes: Yes: PERRL HENT: Yes: Atraumatic Neck: Yes: Supple Cardiovascular: Yes: Regular Rate and Rhythm, S1, S2 Respiratory: Yes: Diminished, Wheezes Gastrointestinal: Yes: Normal Bowel Sounds, Soft. No: Tenderness Edema: No Additional Findings/Remarks: - Review of Systems Constitutional: denies: Chills, Fever Cardiovascular: denies: Chest Pain, (+) Shortness of Breath. denies: Palpitations Respiratory: reports: Cough, Orthopnea, SOB, SOB on Exertion. denies: Hemoptysis, PND Gastrointestinal: denies: Abdominal Pain, Constipation, Melena, Nausea, Rectal Bleeding, Vomiting Genitourinary: denies: Dysuria, Hematuria Neurological: denies: Dizziness, Headache, Seizure, Syncope Labs: Problem List - Problems (1) Altered mental status Code(s): R41.82 - ALTERED MENTAL STATUS, UNSPECIFIED Qualifiers: Altered mental status type: disorientation Qualified Code(s): R41.0 - Disorientation, unspecified (2) COPD exacerbation Code(s): J44.1 - CHRONIC OBSTRUCTIVE PULMONARY DISEASE W (ACUTE) EXACERBATION (3) Acute and chronic respiratory failure with hypoxia Code(s): J96.21 - ACUTE AND CHRONIC RESPIRATORY FAILURE WITH HYPOXIA (4) Acute diastolic (congestive) heart failure Code(s): I50.31 - ACUTE DIASTOLIC (CONGESTIVE) HEART FAILURE (5) Acute on chronic respiratory failure with hypoxia and hypercapnia Code(s): J96.21 - ACUTE AND CHRONIC RESPIRATORY FAILURE WITH HYPOXIA; J96.22 - ACUTE AND CHRONIC RESPIRATORY FAILURE WITH HYPERCAPNIA (6) Diastolic dysfunction Code(s): I51.9 - HEART DISEASE, UNSPECIFIED (7) Hyperlipidemia Code(s): E78.5 - HYPERLIPIDEMIA, UNSPECIFIED Qualifiers: Hyperlipidemia type: pure hypercholesterolemia Qualified Code(s): E78.00 - Pure hypercholesterolemia, unspecified; E78.0 - Pure hypercholesterolemia (8) Hypertension Code(s): I10 - ESSENTIAL (PRIMARY) HYPERTENSION Qualifiers: Hypertension type: essential hypertension Qualified Code(s): I10 - Essential (primary) hypertension (9) Hypothyroidism Code(s): E03.9 - HYPOTHYROIDISM, UNSPECIFIED Qualifiers: Hypothyroidism type: unspecified Qualified Code(s): E03.9 - Hypothyroidism , unspecified (10) Pneumonia Code(s): J18.9 - PNEUMONIA, UNSPECIFIED ORGANISM (11) Shortness of breath Code(s): R06.02 - SHORTNESS OF BREATH (12) Sleep apnea Code(s): G47.30 - SLEEP APNEA, UNSPECIFIED Qualifiers: Sleep apnea type: unspecified type Qualified Code(s): G47.30 - Sleep apnea , unspecified Assessment/Plan 1. Acute on chronic hypoxic and hypercapneic respiratory failure 2. Chronic obstructive pulmonary disease exacerbation 3. Probable pneumonia 4. Post toxic metabolic encephalopathy 5. CAD coronary artery calcification angina pectoris 6. Diastolic LV dysfunction with chronic class I NYHA classification LV failure 7. HTN/HCVD 8. Hypercholesterolemia/mixed dyslipidemia 9. Hypothyroidism 10. Right hand hematoma 11. Pre-renal azotemia resolving 12. Anemia and thrombocytopenia 13. OSAS PLAN: 1. Losartan 25 mg QD and Crestor 5 mg QD as tolerated 2. Diuretics as needed 3. Continue ASA 81 mg QD 4. Continue pulmonary treatment. BIPAP, bronchodilator and steroid taper 5. Empiric antibiotic course 6. DVT and GI prophylaxis 7. SNF once pulmonary status improves Guarded Wilson Gill MD
[2018-06-01] MEDS: ALBUTEROL SO4 8 GM HFA INHALER IH PRN (12:30)
[2018-06-01] MEDS: ROFLUMILAST 500 MCG TABLET PO SCH (12:31)
[2018-06-01] MEDS: SODIUM CHLORIDE NASAL SPRAY 44 ML BOTTLE NS SCH ×2 (14:24→22:34)
[2018-06-01] MEDS: ROSUVASTATIN CA 5 MG TABLET (FP) PO SCH (22:22)
[2018-06-01] MEDS: MONTELUKAST NA 10 MG TABLET PO SCH (22:22)
[2018-06-02] MEDS: ALBUTEROL SO4 0.083% IH SOL 2.5 MG/3 ML VIAL.NEB. NEB PRN ×5 (00:27→22:08)
[2018-06-02] MEDS: LEVOTHYROXINE NA 75 MCG TABLET (FP) PO SCH (06:39)
[2018-06-02] MEDS: INSULIN SLIDING SCALE (NOVOLOG) 1 VIAL SQ SCH ×4 (06:39→22:18)
--- NOTE | 2018-06-02 09:09 | PN ---
Progress Note (short form) - Note Progress Note: Neurology History of Present Illness 57F w/ a history of COPD (2L NC at home), HTN, CAD, hypothyroidism who presents from [facility] for evaluation of increasing respiratory distress and associated confusion/lethargy. The patient was recently admitted for a COPD exacerbation. According to notes the family reported when the patient is having an exacerbation, it is typical for her to become confused. She was admitted and Pulmonary following closely. Patient experienced fall last night, hospitalist note reviewed, with head pain. CT head completed and without acute changes. Neurologically without focal deficits. Getting ongoing medical mgmt. Is able to tell me she's at [place], thought it was may but knows the year. More alert and awake, interactive, less respiratory distress in recent days. Inquiring about discharge planning. Neurologically appears to remain stable. Allergies/Adverse Reactions: Allergies Allergy/AdvReac Type Severity Reaction Status Date / Time Penicillins Allergy Severe Difficulty Verified 05/19/18 16:04 Breathing Active Medications Acetaminophen (Tylenol -) 650 mg PO Q6H PRN PRN Reason: PAIN 1-7 Last Admin: 05/22/18 22:12 Dose: 650 mg Albuterol Sulfate (Ventolin 0.083% Nebulizer Soln -) 1 amp NEB Q8H PRN PRN Reason: SHORT OF BREATH/WHEEZING Last Admin: 06/02/18 07:41 Dose: 1 amp Albuterol Sulfate (Ventolin Hfa Inhaler -) 1 puff IH Q6H PRN PRN Reason: ASTHMA Last Admin: 06/01/18 12:30 Dose: 1 puff Aspirin (Asa -) 81 mg PO DAILY [facility] Last Admin: 06/01/18 10:55 Dose: 81 mg Heparin Sodium (Porcine) (Heparin -) 5,000 unit SQ BID [facility] Last Admin: 06/01/18 22:22 Dose: 5,000 unit Insulin Aspart (Novolog Vial Sliding Scale -) 1 vial SQ ACHS [facility]; Protocol Last Admin: 06/02/18 06:39 Dose: 2 units Levothyroxine Sodium (Synthroid -) 75 mcg PO DAILY@0700 [facility] Last Admin: 06/02/18 06:39 Dose: 75 mcg Losartan Potassium (Cozaar -) 25 mg PO DAILY [facility] Last Admin: 06/01/18 10:55 Dose: 25 mg Methylprednisolone Sodium Succinate (Solu-Medrol -) 40 mg IVPUSH BID [facility] Last Admin: 06/01/18 22:27 Dose: 40 mg Montelukast Sodium (Singulair -) 10 mg PO HS [facility] Last Admin: 06/01/18 22:22 Dose: 10 mg Pantoprazole Sodium (Protonix -) 20 mg PO DAILY [facility] Last Admin: 06/01/18 10:55 Dose: 20 mg Potassium Chloride (K-Dur -) 10 meq PO BID [facility] Last Admin: 06/01/18 22:22 Dose: 10 meq Roflumilast (Daliresp -) 500 mcg PO DAILY [facility] Last Admin: 06/01/18 12:31 Dose: 500 mcg Rosuvastatin Calcium (Crestor -) 5 mg PO HS [facility] Last Admin: 06/01/18 22:22 Dose: 5 mg Sodium Chloride ([place] Nasal [place] -) 2 spray NS BID [facility] Last Admin: 06/01/18 22:34 Dose: 2 spray *Physical Exam Vital Signs Period Temp Pulse Resp BP Sys/Domínguez Pulse Ox Last 24 Hr 97.2 F-98.2 F 76-107 20-20 99-119/46-65 96-97 GENERAL: Awake, easily arousable to voice, oriented to self, not telling me location, month, or year HEAD: No signs of trauma, normocephalic, atraumatic EYES: PERRLA, EOMI ENT: Hearing grossly normal, nares patent, oropharynx clear without exudates. Moist mucosa LUNGS: on 4LNC (2LNC at home); moderate diffuse wheeze b/l HEART: Tachycardia with regular rhythm, normal S1 and S2, no murmurs appreciated , peripheral pulses normal and equal bilaterally ABDOMEN: Soft, nontender, normoactive bowel sounds. No guarding, no rebound EXTREMITIES : 2+ BLE edema to knee; RUE hand and forearm hematoma, Normal range of motion NEUROLOGICAL: Cranial nerves II through XII grossly intact. no focal sensorimotor deficits, finger to nose normal, gait deferred CBCD WBC 16.4 K/mm3 (4.0-10.0) H 05/30/18 05:30 RBC 2.89 M/mm3 (3.60-5.2) L 05/30/18 05:30 Hgb 8.5 GM/dL (10.7-15.3) L 05/30/18 05:30 Hct 27.2 % (32.4-45.2) L 05/30/18 05:30 MCV 94.2 fl (80-96) 05/30/18 05:30 MCHC 31.3 g/dl (32.0-36.0) L 05/30/18 05:30 RDW 13.1 % (11.6-15.6) 05/30/18 05:30 Plt Count 122 K/MM3 (134-434) L 05/30/18 05:30 MPV 9.3 fl (7.5-11.1) 05/30/18 05:30 CMP Sodium 140 mmol/L (136-145) 05/30/18 05:30 Potassium 4.2 mmol/L (3.5-5.1) 05/30/18 05:30 Chloride 86 mmol/L (98-107) L 05/30/18 05:30 Carbon Dioxide 53 mmol/L (21-32) H 05/30/18 05:30 Anion Gap 1 MMOL/L (8-16) L 05/30/18 05:30 BUN 27 mg/dL (7-18) H 05/30/18 05:30 Creatinine 0.7 mg/dL (0.55-1.3) 05/30/18 05:30 Creat Clearance w eGFR > 60 (>60) 05/30/18 05:30 Random Glucose 175 mg/dL (74-106) H 05/30/18 05:30 Calcium 8.0 mg/dL (8.5-10.1) L 05/30/18 05:30 Total Bilirubin 0.5 mg/dL (0.2-1) 05/30/18 05:30 AST 24 U/L (15-37) 05/30/18 05:30 ALT 36 U/L (13-61) 05/30/18 05:30 Alkaline Phosphatase 133 U/L (45-117) H 05/30/18 05:30 Total Protein 4.7 g/dl (6.4-8.2) L 05/30/18 05:30 Albumin 2.3 g/dl (3.4-5.0) L 05/30/18 05:30 CARDIAC ENZYMES Creatine Kinase 23 IU/L (26-192) L 05/24/18 19:35 Troponin I 0.05 ng/ml (0.00-0.05) 05/25/18 05:30 Medical Decision Making 57F w/ a history of COPD (2L NC at home), HTN, CAD, hypothyroidism who presents from [facility] for evaluation of increasing respiratory distress and associated confusion/lethargy. The patient was recently admitted for a COPD exacerbation. According to notes the family reported when the patient is having an exacerbation, it is typical for her to become confused. She was admitted and Pulmonary following closely. Repeat CT head completed and without acute changes. ENT note reviewed. Is alert and interactive now, neurologically stable. Likely AMS, Toxic metabolic encephalopathy 2/2 respiratory distress, continue optimization of COPD. Increased hydration, monitor BP, maintain normotensive range. Mental status at baseline at this time. Fall precautions, physical therapy as tolerated, increased activity as able to avoid deconditioning. Will benefit from outpatient rehab.
--- NOTE | 2018-06-02 09:35 | PN ---
Progress Note, Physician Chief Complaint: general (proximal>distal) ms weakness possibly related to steroids; poor IV access dw dr Parrish change to po steroids from iv 40 mg bid to po 30 mg bid po ATB per ID uses BIPAP prn; got OOB for short time with PT assist - Current Medication List Current Medications: Active Medications Acetaminophen (Tylenol -) 650 mg PO Q6H PRN PRN Reason: PAIN 1-7 Last Admin: 05/22/18 22:12 Dose: 650 mg Albuterol Sulfate (Ventolin 0.083% Nebulizer Soln -) 1 amp NEB Q8H PRN PRN Reason: SHORT OF BREATH/WHEEZING Last Admin: 06/02/18 07:41 Dose: 1 amp Albuterol Sulfate (Ventolin Hfa Inhaler -) 1 puff IH Q6H PRN PRN Reason: ASTHMA Last Admin: 06/01/18 12:30 Dose: 1 puff Aspirin (Asa -) 81 mg PO DAILY [facility] Last Admin: 06/01/18 10:55 Dose: 81 mg Heparin Sodium (Porcine) (Heparin -) 5,000 unit SQ BID [facility] Last Admin: 06/01/18 22:22 Dose: 5,000 unit Insulin Aspart (Novolog Vial Sliding Scale -) 1 vial SQ ACHS [facility]; Protocol Last Admin: 06/02/18 06:39 Dose: 2 units Levothyroxine Sodium (Synthroid -) 75 mcg PO DAILY@0700 [facility] Last Admin: 06/02/18 06:39 Dose: 75 mcg Losartan Potassium (Cozaar -) 25 mg PO DAILY [facility] Last Admin: 06/01/18 10:55 Dose: 25 mg Methylprednisolone Sodium Succinate (Solu-Medrol -) 40 mg IVPUSH BID [facility] Last Admin: 06/01/18 22:27 Dose: 40 mg Montelukast Sodium (Singulair -) 10 mg PO HS [facility] Last Admin: 06/01/18 22:22 Dose: 10 mg Pantoprazole Sodium (Protonix -) 20 mg PO DAILY [facility] Last Admin: 06/01/18 10:55 Dose: 20 mg Potassium Chloride (K-Dur -) 10 meq PO BID [facility] Last Admin: 06/01/18 22:22 Dose: 10 meq Roflumilast (Daliresp -) 500 mcg PO DAILY [facility] Last Admin: 06/01/18 12:31 Dose: 500 mcg Rosuvastatin Calcium (Crestor -) 5 mg PO HS [facility] Last Admin: 06/01/18 22:22 Dose: 5 mg Sodium Chloride ([place] Nasal [place] -) 2 spray NS BID [facility] Last Admin: 06/01/18 22:34 Dose: 2 spray - Objective Vital Signs: Vital Signs Temperature 98.1 F 06/02/18 02:00 Pulse Rate 99 H 06/02/18 05:53 Respiratory Rate 20 06/02/18 05:53 Blood Pressure 108/49 L 06/02/18 05:53 O2 Sat by Pulse Oximetry (%) 96 06/02/18 07:40 Constitutional: Yes: Anxious Eyes: Yes: Conjunctiva Clear HENT: Yes: Atraumatic Neck: Yes: Supple Cardiovascular: Yes: Regular Rate and Rhythm Respiratory: Yes: CTA Bilaterally Gastrointestinal: Yes: Soft. No: Distention Genitourinary: No: CVA Tenderness - Left, CVA Tenderness - Right Musculoskeletal: No: Joint Stiffness, Joint Swelling Extremities: No: Cold, Cool, Cyanosis Edema: No Integumentary: Yes: Bruising. No: Rash, Venous Stasis Changes Neurological: Yes: WNL, Alert, Oriented ...Motor Strength: WNL Psychiatric: Yes: WNL, Alert, Oriented. No: Agitated, Suicidal Ideation Labs: CBC, BMP 05/30/18 05:30 05/30/18 05:30 INR, PTT INR 0.97 (0.83-1.09) 05/19/18 16:15 - ....Imaging Other: Report Reviewed Assessment/Plan The patient is a 57F w/ a history of severe advanced COPD O2 dependant and frequent Bipap use, HTN, CAD, hypothyroidism admitted with acute on chronic COPD exacerbation. s/p Fall. Sinusitis, PNA exacerbation of COPD again pulmonary f/u d/w pulm dr Parrish check ABG; if develops worsening CO2 retaining and respiratory failure might need tracheostomy po steroids Bipap to use it as ordered, antibiotics per ID gastric pfx while on steroids; BGM and GLU control while on steroids R hand hematoma stable labs f/u low PLT, anemia: heme f/u; falls decubs DVT PFX prognosis guarded d/w pt and staff
--- NOTE | 2018-06-02 09:44 | PN ---
Progress Note, Physician History of Present Illness: Non-productive cough, wheezes and dyspnea slowly improving. - Current Medication List Current Medications: Active Medications Acetaminophen (Tylenol -) 650 mg PO Q6H PRN PRN Reason: PAIN 1-7 Last Admin: 05/22/18 22:12 Dose: 650 mg Albuterol Sulfate (Ventolin 0.083% Nebulizer Soln -) 1 amp NEB Q8H PRN PRN Reason: SHORT OF BREATH/WHEEZING Last Admin: 06/02/18 07:41 Dose: 1 amp Albuterol Sulfate (Ventolin Hfa Inhaler -) 1 puff IH Q6H PRN PRN Reason: ASTHMA Last Admin: 06/01/18 12:30 Dose: 1 puff Aspirin (Asa -) 81 mg PO DAILY [facility] Last Admin: 06/01/18 10:55 Dose: 81 mg Heparin Sodium (Porcine) (Heparin -) 5,000 unit SQ BID [facility] Last Admin: 06/01/18 22:22 Dose: 5,000 unit Insulin Aspart (Novolog Vial Sliding Scale -) 1 vial SQ [facility]; Protocol Last Admin: 06/02/18 06:39 Dose: 2 units Levothyroxine Sodium (Synthroid -) 75 mcg PO DAILY@0700 [facility] Last Admin: 06/02/18 06:39 Dose: 75 mcg Losartan Potassium (Cozaar -) 25 mg PO DAILY [facility] Last Admin: 06/01/18 10:55 Dose: 25 mg Methylprednisolone Sodium Succinate (Solu-Medrol -) 40 mg IVPUSH BID [facility] Last Admin: 06/01/18 22:27 Dose: 40 mg Montelukast Sodium (Singulair -) 10 mg PO HS [facility] Last Admin: 06/01/18 22:22 Dose: 10 mg Pantoprazole Sodium (Protonix -) 20 mg PO DAILY [facility] Last Admin: 06/01/18 10:55 Dose: 20 mg Potassium Chloride (K-Dur -) 10 meq PO BID [facility] Last Admin: 06/01/18 22:22 Dose: 10 meq Roflumilast (Daliresp -) 500 mcg PO DAILY [facility] Last Admin: 06/01/18 12:31 Dose: 500 mcg Rosuvastatin Calcium (Crestor -) 5 mg PO HS [facility] Last Admin: 06/01/18 22:22 Dose: 5 mg Sodium Chloride ([place] Nasal [place] -) 2 spray NS BID [facility] Last Admin: 06/01/18 22:34 Dose: 2 spray - Objective Vital Signs: Vital Signs Temperature 98.1 F 06/02/18 02:00 Pulse Rate 99 H 06/02/18 05:53 Respiratory Rate 20 06/02/18 05:53 Blood Pressure 108/49 L 06/02/18 05:53 O2 Sat by Pulse Oximetry (%) 96 06/02/18 07:40 Constitutional: Yes: No Distress, Calm Neck: Yes: Supple Cardiovascular: Yes: Regular Rate and Rhythm Respiratory: Yes: Regular, Diminished, On Nasal O2 Gastrointestinal: Yes: Normal Bowel Sounds, Soft, Abdomen, Obese Edema: No Labs: CBC, BMP 05/30/18 05:30 05/30/18 05:30 INR, PTT INR 0.97 (0.83-1.09) 05/19/18 16:15 - ....Imaging EKG: Report Reviewed (Tele: ST) Problem List - Problems (1) COPD exacerbation Code(s): J44.1 - CHRONIC OBSTRUCTIVE PULMONARY DISEASE W (ACUTE) EXACERBATION (2) Acute on chronic respiratory failure with hypoxia and hypercapnia Code(s): J96.21 - ACUTE AND CHRONIC RESPIRATORY FAILURE WITH HYPOXIA; J96.22 - ACUTE AND CHRONIC RESPIRATORY FAILURE WITH HYPERCAPNIA (3) Diastolic dysfunction Code(s): I51.9 - HEART DISEASE, UNSPECIFIED (4) Hyperlipidemia Code(s): E78.5 - HYPERLIPIDEMIA, UNSPECIFIED Qualifiers: Hyperlipidemia type: pure hypercholesterolemia Qualified Code(s): E78.00 - Pure hypercholesterolemia, unspecified; E78.0 - Pure hypercholesterolemia (5) Hypertension Code(s): I10 - ESSENTIAL (PRIMARY) HYPERTENSION Qualifiers: Hypertension type: essential hypertension Qualified Code(s): I10 - Essential (primary) hypertension (6) Hypothyroidism Code(s): E03.9 - HYPOTHYROIDISM, UNSPECIFIED Qualifiers: Hypothyroidism type: unspecified Qualified Code(s): E03.9 - Hypothyroidism , unspecified (7) Shortness of breath Code(s): R06.02 - SHORTNESS OF BREATH (8) Sleep apnea Code(s): G47.30 - SLEEP APNEA, UNSPECIFIED Qualifiers: Sleep apnea type: unspecified type Qualified Code(s): G47.30 - Sleep apnea , unspecified Assessment/Plan 1. Acute on chronic hypoxic and hypercapneic respiratory failure 2. Chronic obstructive pulmonary disease exacerbation 3. Probable pneumonia 4. Post toxic metabolic encephalopathy 5. CAD coronary artery calcification angina pectoris 6. Diastolic LV dysfunction with chronic class I NYHA classification LV failure 7. HTN/HCVD 8. Hypercholesterolemia/mixed dyslipidemia 9. Hypothyroidism 10. Right hand hematoma 11. Pre-renal azotemia resolving 12. Anemia and thrombocytopenia 13. OSAS PLAN: 1. Losartan 25 mg QD and Crestor 5 mg QD as tolerated 2. Diuretics as needed 3. Continue ASA 81 mg QD 4. Continue pulmonary treatment. BIPAP, bronchodilator, Singulair, Daliresp and IV steroid taper 5. Completed empiric antibiotic course 6. DVT and GI prophylaxis 7. SNF once pulmonary status improves
--- NOTE | 2018-06-02 10:33 | PN ---
Progress Note, Physician History of Present Illness: pulmonary alert,mildly dyspneic on nasal o2 - Current Medication List Current Medications: Active Medications Acetaminophen (Tylenol -) 650 mg PO Q6H PRN PRN Reason: PAIN 1-7 Last Admin: 05/22/18 22:12 Dose: 650 mg Albuterol Sulfate (Ventolin 0.083% Nebulizer Soln -) 1 amp NEB Q8H PRN PRN Reason: SHORT OF BREATH/WHEEZING Last Admin: 06/02/18 07:41 Dose: 1 amp Albuterol Sulfate (Ventolin Hfa Inhaler -) 1 puff IH Q6H PRN PRN Reason: ASTHMA Last Admin: 06/01/18 12:30 Dose: 1 puff Aspirin (Asa -) 81 mg PO DAILY [facility] Last Admin: 06/01/18 10:55 Dose: 81 mg Heparin Sodium (Porcine) (Heparin -) 5,000 unit SQ BID [facility] Last Admin: 06/01/18 22:22 Dose: 5,000 unit Insulin Aspart (Novolog Vial Sliding Scale -) 1 vial SQ [facility]; Protocol Last Admin: 06/02/18 06:39 Dose: 2 units Levothyroxine Sodium (Synthroid -) 75 mcg PO DAILY@0700 [facility] Last Admin: 06/02/18 06:39 Dose: 75 mcg Losartan Potassium (Cozaar -) 25 mg PO DAILY [facility] Last Admin: 06/01/18 10:55 Dose: 25 mg Methylprednisolone Sodium Succinate (Solu-Medrol -) 40 mg IVPUSH BID [facility] Last Admin: 06/01/18 22:27 Dose: 40 mg Montelukast Sodium (Singulair -) 10 mg PO [facility] Last Admin: 06/01/18 22:22 Dose: 10 mg Pantoprazole Sodium (Protonix -) 20 mg PO DAILY [facility] Last Admin: 06/01/18 10:55 Dose: 20 mg Potassium Chloride (K-Dur -) 10 meq PO BID [facility] Last Admin: 06/01/18 22:22 Dose: 10 meq Roflumilast (Daliresp -) 500 mcg PO DAILY [facility] Last Admin: 06/01/18 12:31 Dose: 500 mcg Rosuvastatin Calcium (Crestor -) 5 mg PO HS [facility] Last Admin: 06/01/18 22:22 Dose: 5 mg Sodium Chloride ([place] Nasal [place] -) 2 spray NS BID [facility] Last Admin: 06/01/18 22:34 Dose: 2 spray - Objective Vital Signs: Vital Signs Temperature 98.1 F 06/02/18 02:00 Pulse Rate 99 H 06/02/18 05:53 Respiratory Rate 20 06/02/18 05:53 Blood Pressure 108/49 L 06/02/18 05:53 O2 Sat by Pulse Oximetry (%) 96 06/02/18 07:40 Constitutional: Yes: Well Nourished, Calm Eyes: Yes: WNL HENT: Yes: WNL Neck: Yes: WNL Cardiovascular: Yes: Regular Rate and Rhythm, S1, S2 Respiratory: Yes: Wheezes (few scattered wheezes) Gastrointestinal: Yes: Normal Bowel Sounds, Soft Extremities: Yes: WNL Edema: No Labs: CBC, BMP Problem List - Problems (1) Altered mental status Code(s): R41.82 - ALTERED MENTAL STATUS, UNSPECIFIED Qualifiers: Altered mental status type: disorientation Qualified Code(s): R41.0 - Disorientation, unspecified (2) COPD exacerbation Code(s): J44.1 - CHRONIC OBSTRUCTIVE PULMONARY DISEASE W (ACUTE) EXACERBATION (3) Acute on chronic respiratory failure with hypoxia and hypercapnia Code(s): J96.21 - ACUTE AND CHRONIC RESPIRATORY FAILURE WITH HYPOXIA; J96.22 - ACUTE AND CHRONIC RESPIRATORY FAILURE WITH HYPERCAPNIA (4) CHF (congestive heart failure) Code(s): I50.9 - HEART FAILURE, UNSPECIFIED (5) COPD exacerbation Code(s): J44.1 - CHRONIC OBSTRUCTIVE PULMONARY DISEASE W (ACUTE) EXACERBATION (6) Diastolic dysfunction Code(s): I51.9 - HEART DISEASE, UNSPECIFIED (7) Sleep apnea Code(s): G47.30 - SLEEP APNEA, UNSPECIFIED Qualifiers: Sleep apnea type: unspecified type Qualified Code(s): G47.30 - Sleep apnea , unspecified Assessment/Plan IMP ACUTE ON CHRONIC HYPOXEMIC HYPERCAPNEIC RESPIRATORY FAILURE COPD O2 DEPENDENT PNEUMONIA ALTERED MENTAL STATUS CHF HYPOTHYROID NAVDEEP PLAN STEROID TAPER ABX PER ID INHALED BRONCHODILATORS O2 BIPAP AT NIGHT AND PRN Problem List - Problems (1) Altered mental status Code(s): R41.82 - ALTERED MENTAL STATUS, UNSPECIFIED Qualifiers: Altered mental status type: disorientation Qualified Code(s): R41.0 - Disorientation, unspecified (2) COPD exacerbation Code(s): J44.1 - CHRONIC OBSTRUCTIVE PULMONARY DISEASE W (ACUTE) EXACERBATION (3) Acute on chronic respiratory failure with hypoxia and hypercapnia Code(s): J96.21 - ACUTE AND CHRONIC RESPIRATORY FAILURE WITH HYPOXIA; J96.22 - ACUTE AND CHRONIC RESPIRATORY FAILURE WITH HYPERCAPNIA (4) CHF (congestive heart failure) Code(s): I50.9 - HEART FAILURE, UNSPECIFIED (5) COPD exacerbation Code(s): J44.1 - CHRONIC OBSTRUCTIVE PULMONARY DISEASE W (ACUTE) EXACERBATION (6) Diastolic dysfunction Code(s): I51.9 - HEART DISEASE, UNSPECIFIED (7) Sleep apnea Code(s): G47.30 - SLEEP APNEA, UNSPECIFIED
[2018-06-02] MEDS: PANTOPRAZOLE 20 MG TABLET (FP) PO SCH (11:31)
[2018-06-02] MEDS: ASPIRIN 81 MG CHEWABLE TABLETS PO SCH (11:31)
[2018-06-02] MEDS: ROFLUMILAST 500 MCG TABLET PO SCH (11:31)
[2018-06-02] MEDS: POTASSIUM CHLORIDE TABS 10 MEQ TABLET.ER (FP) PO SCH ×2 (11:31→22:18)
[2018-06-02] MEDS: LOSARTAN POTASSIUM 25 MG TABLET PO SCH (11:31)
[2018-06-02] MEDS: HEPARIN NA (PORCINE) 5,000 UNITS/ML 1ML VIAL SQ SCH ×2 (11:32→22:19)
[2018-06-02] MEDS: SODIUM CHLORIDE NASAL SPRAY 44 ML BOTTLE NS SCH ×2 (11:32→22:19)
[2018-06-02] MEDS: predniSONE 10 MG TABLET (UD) PO SCH ×2 (11:35→22:18)
[2018-06-02 11:55] LABS: ARTERIAL BLD GAS O2 SATURATION 94.8 % (90-98.9); ARTERIAL BLOOD GAS BASE EXCESS 18.4 meq/l (-2-2); ARTERIAL BLOOD GAS PO2 79.2 mmHg (80-100); ARTERIAL BLOOD GAS pH 7.27 (7.35-7.45)
[2018-06-02 12:01] LABS: ALLENS TEST POSITIVE
[2018-06-02] MEDS: methylPREDNISolone NA SUCC 40 MG/1 ML VIAL IVPUSH SCH (14:16)
[2018-06-02] MEDS: TIOTROPIUM BROMIDE 2.5 MCG (SPIRIVA) RESPIMAT INHALER IH SCH (17:59)
[2018-06-02] MEDS: MONTELUKAST NA 10 MG TABLET PO SCH (22:18)
[2018-06-02] MEDS: ROSUVASTATIN CA 5 MG TABLET (FP) PO SCH (22:19)
[2018-06-03 06:57] LABS: BASO % 0.1 % (0-2.0); HEMOGLOBIN 7.7 GM/dL (10.7-15.3); MCH 29.4 pg (25.7-33.7); MCHC 30.8 g/dl (32.0-36.0); MEAN CELL VOLUME 95.4 fl (80-96); MEAN PLT VOLUME 8.7 fl (7.5-11.1); MONO % 2.7 % (3.8-10.2); NEUT % 96.2 % (42.8-82.8); PLATELET COUNT 187 K/MM3 (134-434); RBC 2.62 M/mm3 (3.60-5.2); RDW 13.4 % (11.6-15.6); WHITE BLOOD COUNT 17.3 K/mm3 (4.0-10.0)
[2018-06-03] MEDS: LEVOTHYROXINE NA 75 MCG TABLET (FP) PO SCH (07:02)
[2018-06-03] MEDS: INSULIN SLIDING SCALE (NOVOLOG) 1 VIAL SQ SCH ×4 (07:02→21:17)
--- NOTE | 2018-06-03 07:16 | PN ---
Progress Note, Physician Chief Complaint: hg 7.7 no obvious bleed; will transfuse check guaiac stools and ask GI in eval respiratory handley stable for now no tremors; uses bipap prn - Current Medication List Current Medications: Active Medications Acetaminophen (Tylenol -) 650 mg PO Q6H PRN PRN Reason: PAIN 1-7 Last Admin: 05/22/18 22:12 Dose: 650 mg Albuterol Sulfate (Ventolin 0.083% Nebulizer Soln -) 1 amp NEB Q8H PRN PRN Reason: SHORT OF BREATH/WHEEZING Last Admin: 06/02/18 22:08 Dose: 1 amp Albuterol Sulfate (Ventolin Hfa Inhaler -) 1 puff IH Q6H PRN PRN Reason: ASTHMA Last Admin: 06/01/18 12:30 Dose: 1 puff Aspirin (Asa -) 81 mg PO DAILY [facility] Last Admin: 06/02/18 11:31 Dose: 81 mg Heparin Sodium (Porcine) (Heparin -) 5,000 unit SQ BID [facility] Last Admin: 06/02/18 22:19 Dose: 5,000 unit Insulin Aspart (Novolog Vial Sliding Scale -) 1 vial SQ [facility]; Protocol Last Admin: 06/03/18 07:02 Dose: 2 units Levothyroxine Sodium (Synthroid -) 75 mcg PO DAILY@0700 [facility] Last Admin: 06/03/18 07:02 Dose: 75 mcg Losartan Potassium (Cozaar -) 25 mg PO DAILY [facility] Last Admin: 06/02/18 11:31 Dose: 25 mg Montelukast Sodium (Singulair -) 10 mg PO [facility] Last Admin: 06/02/18 22:18 Dose: 10 mg Pantoprazole Sodium (Protonix -) 20 mg PO DAILY [facility] Last Admin: 06/02/18 11:31 Dose: 20 mg Potassium Chloride (K-Dur -) 10 meq PO BID [facility] Last Admin: 06/02/18 22:18 Dose: 10 meq Prednisone (Deltasone -) 30 mg PO BID [facility] Last Admin: 06/02/18 22:18 Dose: 30 mg Roflumilast (Daliresp -) 500 mcg PO DAILY [facility] Last Admin: 06/02/18 11:31 Dose: 500 mcg Rosuvastatin Calcium (Crestor -) 5 mg PO [facility] Last Admin: 06/02/18 22:19 Dose: 5 mg Sodium Chloride ([place] Nasal [place] -) 2 spray NS BID [facility] Last Admin: 06/02/18 22:19 Dose: 2 spray Tiotropium [place] (Spiriva Respimat) 2 puff IH DAILY [facility] Last Admin: 06/02/18 17:59 Dose: 2 puff - Objective Vital Signs: Vital Signs Temperature 98.1 F 06/03/18 01:53 Pulse Rate 94 H 06/03/18 01:53 Respiratory Rate 20 06/03/18 01:53 Blood Pressure 125/60 06/03/18 01:53 O2 Sat by Pulse Oximetry (%) 97 06/02/18 22:30 Constitutional: Yes: No Distress Eyes: Yes: Conjunctiva Clear HENT: Yes: Atraumatic Neck: Yes: Supple Cardiovascular: Yes: Regular Rate and Rhythm Respiratory: Yes: Rales Gastrointestinal: Yes: Soft. No: Distention Genitourinary: No: CVA Tenderness - Left, CVA Tenderness - Right Musculoskeletal: No: Joint Stiffness, Joint Swelling Extremities: No: Cold, Cool, Cyanosis Edema: No Integumentary: Yes: Bruising. No: Rash Neurological: Yes: WNL, Alert, Oriented ...Motor Strength: WNL Psychiatric: Yes: WNL, Alert, Oriented. No: Agitated, Suicidal Ideation Labs: INR, PTT INR 0.97 (0.83-1.09) 05/19/18 16:15 - ....Imaging Other: Report Reviewed Assessment/Plan The patient is a 57F w/ a history of severe advanced COPD O2 dependant and frequent Bipap use, HTN, CAD, hypothyroidism admitted with acute on chronic COPD exacerbation. s/p Fall. Sinusitis, PNA acute on chronic exacerbation of COPD; anemia; hyperK pulmonary f/u; po steroids Bipap to use it as ordered antibiotics po per ID stop po K, f/u labs transfused 2 U PRBC heme f/u and GI eval; heparin sq DCd for now gastric pfx while on steroids; BGM and GLU control while on steroids R hand hematoma stable labs f/u falls decubs DVT PFX prognosis guarded d/w pt and staff
[2018-06-03] MEDS: ALBUTEROL SO4 0.083% IH SOL 2.5 MG/3 ML VIAL.NEB. NEB PRN ×4 (07:20→21:20)
[2018-06-03 07:38] LABS: ALBUMIN 2.4 g/dl (3.4-5.0); ALK PHOS 131 U/L (45-117); BILIRUBIN,TOTAL 0.4 mg/dL (0.2-1); BLOOD UREA NITROGEN 29 mg/dL (7-18); CALCIUM 8.1 mg/dL (8.5-10.1); CHLORIDE 90 mmol/L (98-107); CREATININE 0.6 mg/dL (0.55-1.3); GLUCOSE,RANDOM 179 mg/dL (74-106); POTASSIUM 5.5 mmol/L (3.5-5.1); SGOT/AST 16 U/L (15-37); SGPT/ALT 36 U/L (13-61); SODIUM 139 mmol/L (136-145); TOT PROT 4.9 g/dl (6.4-8.2)
[2018-06-03 08:45] LABS: ANION GAP -1 MMOL/L (8-16); CO2 50 mmol/L (21-32)
[2018-06-03] MEDS: predniSONE 10 MG TABLET (UD) PO SCH ×2 (09:42→21:08)
[2018-06-03] MEDS: ASPIRIN 81 MG CHEWABLE TABLETS PO SCH (09:42)
[2018-06-03] MEDS: PANTOPRAZOLE 20 MG TABLET (FP) PO SCH (09:42)
[2018-06-03] MEDS: LOSARTAN POTASSIUM 25 MG TABLET PO SCH (09:42)
[2018-06-03] MEDS: ROFLUMILAST 500 MCG TABLET PO SCH (09:42)
[2018-06-03] MEDS: TIOTROPIUM BROMIDE 2.5 MCG (SPIRIVA) RESPIMAT INHALER IH SCH (09:44)
[2018-06-03] MEDS: SODIUM CHLORIDE NASAL SPRAY 44 ML BOTTLE NS SCH ×2 (09:44→21:09)
--- NOTE | 2018-06-03 09:48 | PN ---
Progress Note, Physician History of Present Illness: Non-productive cough, wheezes and dyspnea slowly improving. - Current Medication List Current Medications: Active Medications Acetaminophen (Tylenol -) 650 mg PO Q6H PRN PRN Reason: PAIN 1-7 Last Admin: 05/22/18 22:12 Dose: 650 mg Albuterol Sulfate (Ventolin 0.083% Nebulizer Soln -) 1 amp NEB Q8H PRN PRN Reason: SHORT OF BREATH/WHEEZING Last Admin: 06/03/18 07:20 Dose: 1 amp Albuterol Sulfate (Ventolin Hfa Inhaler -) 1 puff IH Q6H PRN PRN Reason: ASTHMA Last Admin: 06/01/18 12:30 Dose: 1 puff Aspirin (Asa -) 81 mg PO DAILY [facility] Last Admin: 06/03/18 09:42 Dose: 81 mg Insulin Aspart (Novolog Vial Sliding Scale -) 1 vial SQ ACHS [facility]; Protocol Last Admin: 06/03/18 07:02 Dose: 2 units Levofloxacin (Levaquin -) 500 mg PO DAILY [facility] Levothyroxine Sodium (Synthroid -) 75 mcg PO DAILY@0700 [facility] Last Admin: 06/03/18 07:02 Dose: 75 mcg Losartan Potassium (Cozaar -) 25 mg PO DAILY [facility] Last Admin: 06/03/18 09:42 Dose: 25 mg Montelukast Sodium (Singulair -) 10 mg PO [facility] Last Admin: 06/02/18 22:18 Dose: 10 mg Pantoprazole Sodium (Protonix -) 20 mg PO DAILY [facility] Last Admin: 06/03/18 09:42 Dose: 20 mg Prednisone (Deltasone -) 30 mg PO BID [facility] Last Admin: 06/03/18 09:42 Dose: 30 mg Roflumilast (Daliresp -) 500 mcg PO DAILY [facility] Last Admin: 06/03/18 09:42 Dose: 500 mcg Rosuvastatin Calcium (Crestor -) 5 mg PO HS [facility] Last Admin: 06/02/18 22:19 Dose: 5 mg Sodium Chloride ([place] Nasal [place] -) 2 spray NS BID [facility] Last Admin: 06/03/18 09:44 Dose: 2 spray Tiotropium [place] (Spiriva Respimat) 2 puff IH DAILY [facility] Last Admin: 06/03/18 09:44 Dose: 2 puff - Objective Vital Signs: Vital Signs Temperature 97.0 F L 06/03/18 06:00 Pulse Rate 81 06/03/18 06:00 Respiratory Rate 20 06/03/18 06:00 Blood Pressure 112/66 06/03/18 06:00 O2 Sat by Pulse Oximetry (%) 97 06/02/18 22:30 Constitutional: Yes: No Distress, Calm Neck: Yes: Supple Cardiovascular: Yes: Regular Rate and Rhythm Respiratory: Yes: Regular, Diminished, On Nasal O2 Gastrointestinal: Yes: Normal Bowel Sounds, Soft Edema: No Labs: CBC, BMP 06/03/18 05:30 06/03/18 05:30 INR, PTT INR 0.97 (0.83-1.09) 05/19/18 16:15 - ....Imaging EKG: Report Reviewed (Tele: SR) Problem List - Problems (1) COPD exacerbation Code(s): J44.1 - CHRONIC OBSTRUCTIVE PULMONARY DISEASE W (ACUTE) EXACERBATION (2) Acute on chronic respiratory failure with hypoxia and hypercapnia Code(s): J96.21 - ACUTE AND CHRONIC RESPIRATORY FAILURE WITH HYPOXIA; J96.22 - ACUTE AND CHRONIC RESPIRATORY FAILURE WITH HYPERCAPNIA (3) Diastolic dysfunction Code(s): I51.9 - HEART DISEASE, UNSPECIFIED (4) Hyperlipidemia Code(s): E78.5 - HYPERLIPIDEMIA, UNSPECIFIED Qualifiers: Hyperlipidemia type: pure hypercholesterolemia Qualified Code(s): E78.00 - Pure hypercholesterolemia, unspecified; E78.0 - Pure hypercholesterolemia (5) Hypertension Code(s): I10 - ESSENTIAL (PRIMARY) HYPERTENSION Qualifiers: Hypertension type: essential hypertension Qualified Code(s): I10 - Essential (primary) hypertension (6) Hypothyroidism Code(s): E03.9 - HYPOTHYROIDISM, UNSPECIFIED Qualifiers: Hypothyroidism type: unspecified Qualified Code(s): E03.9 - Hypothyroidism , unspecified (7) Shortness of breath Code(s): R06.02 - SHORTNESS OF BREATH (8) Sleep apnea Code(s): G47.30 - SLEEP APNEA, UNSPECIFIED Qualifiers: Sleep apnea type: unspecified type Qualified Code(s): G47.30 - Sleep apnea , unspecified Assessment/Plan 1. Acute on chronic hypoxic and hypercapneic respiratory failure 2. Home O2-dependent chronic obstructive pulmonary disease exacerbation 3. Probable pneumonia 4. Post toxic metabolic encephalopathy 5. CAD coronary artery calcification angina pectoris 6. Diastolic LV dysfunction with chronic class I NYHA classification LV failure 7. HTN/HCVD 8. Hypercholesterolemia/mixed dyslipidemia 9. Hypothyroidism 10. Right hand hematoma 11. Anemia 12. OSAS 13. Hyperkalemia PLAN: 1. Losartan 25 mg QD with monitor K and Crestor 5 mg QD as tolerated 2. Consider transfuse to maintain Hgb>8.0 3. Continue ASA 81 mg QD 4. Continue pulmonary treatment. BIPAP nightly and prn, bronchodilator, Singulair, Daliresp and IV steroid taper 5. Completed empiric antibiotic course 6. DVT and GI prophylaxis 7. SNF once pulmonary status improves
[2018-06-03 10:12] LABS: ARTERIAL BLD GAS O2 SATURATION 91.6 % (90-98.9); ARTERIAL BLOOD GAS BASE EXCESS 18.5 meq/l (-2-2); ARTERIAL BLOOD GAS PO2 65.8 mmHg (80-100); ARTERIAL BLOOD GAS pH 7.32 (7.35-7.45)
[2018-06-03 10:35] LABS: ALLENS TEST POSITIVE
[2018-06-03 10:36] LABS: ARTERIAL BLOOD GAS PCO2 94.4 mmHg (35-45)
[2018-06-03] MEDS ORDERED: INSULIN (NOVOLOG) ASPART 100 UNITS/ML 10ML VIAL ONE (11:53)
--- NOTE | 2018-06-03 13:33 | PN ---
Progress Note (short form) - Note Progress Note: PULMONARY Breathing continues to slowly improve. Vital Signs Period Temp Pulse Resp BP Sys/Domínguez Pulse Ox Last 24 Hr 97.0 F-98.7 F 81-98 20-20 107-133/54-80 93-100 Gen: NAD at rest Heart: RRR Lung: scattered rhonchi Abd: soft, nontender Ext: no edema CBC, BMP 06/03/18 05:30 06/03/18 05:30 Active Medications Acetaminophen (Tylenol -) 650 mg PO Q6H PRN PRN Reason: PAIN 1-7 Last Admin: 05/22/18 22:12 Dose: 650 mg Albuterol Sulfate (Ventolin 0.083% Nebulizer Soln -) 1 amp NEB Q8H PRN PRN Reason: SHORT OF BREATH/WHEEZING Last Admin: 06/03/18 11:45 Dose: 1 amp Albuterol Sulfate (Ventolin Hfa Inhaler -) 1 puff IH Q6H PRN PRN Reason: ASTHMA Last Admin: 06/01/18 12:30 Dose: 1 puff Aspirin (Asa -) 81 mg PO DAILY [facility] Last Admin: 06/03/18 09:42 Dose: 81 mg Insulin Aspart (Novolog Vial Sliding Scale -) 1 vial SQ ACHS [facility]; Protocol Last Admin: 06/03/18 11:54 Dose: 4 units Levofloxacin (Levaquin -) 500 mg PO DAILY@0600 [facility] Last Admin: 06/03/18 11:54 Dose: 500 mg Levothyroxine Sodium (Synthroid -) 75 mcg PO DAILY@0700 [facility] Last Admin: 06/03/18 07:02 Dose: 75 mcg Losartan Potassium (Cozaar -) 25 mg PO DAILY [facility] Last Admin: 06/03/18 09:42 Dose: 25 mg Montelukast Sodium (Singulair -) 10 mg PO HS [facility] Last Admin: 06/02/18 22:18 Dose: 10 mg Pantoprazole Sodium (Protonix -) 20 mg PO DAILY [facility] Last Admin: 06/03/18 09:42 Dose: 20 mg Prednisone (Deltasone -) 30 mg PO BID [facility] Last Admin: 06/03/18 09:42 Dose: 30 mg Roflumilast (Daliresp -) 500 mcg PO DAILY [facility] Last Admin: 06/03/18 09:42 Dose: 500 mcg Rosuvastatin Calcium (Crestor -) 5 mg PO HS [facility] Last Admin: 06/02/18 22:19 Dose: 5 mg Sodium Chloride ([place] Nasal [place] -) 2 spray NS BID [facility] Last Admin: 06/03/18 09:44 Dose: 2 spray Tiotropium [place] (Spiriva Respimat) 2 puff IH DAILY [facility] Last Admin: 06/03/18 09:44 Dose: 2 puff A/P Acute on Chronic Hypoxic and Hypercapneic Respiratory Failure Altered Mental Status likely from Hypercapnea LV Diastolic Dysfunction NAVDEEP/OHS Hypothyroidism Hyperlipidemia - slow prednisone taper - inhaled bronchodilators - O2 to keep Spo2 88-92% - BiPAP at night and PRN during day - DVT prophylaxis
[2018-06-03 14:42] LABS: ANISOCYTOSIS 1+; MACROCYTOSIS 1+; OVALOCYTE 1+; PLATELET ESTIMATE NORMAL
[2018-06-03] MEDS ORDERED: PT OWN MED DRAWER 7, Y5N ONE (20:53)
[2018-06-03] MEDS: MONTELUKAST NA 10 MG TABLET PO SCH (21:08)
[2018-06-03] MEDS: ROSUVASTATIN CA 5 MG TABLET (FP) PO SCH (21:08)
--- NOTE | 2018-06-03 23:01 | CON.GI ---
Consult Consult Specialty:: Gastroenterology ( covering Dr Jc) Referred by:: Dr Taylor Reason for Consultation:: anemia - History of Present Illness Chief Complaint: dyspnea History of Present Illness: 57F with severe COPD and hypercapnia was transferred from [facility] for respiratory distress. She tells me that she has been in and out of the hospital and [facility] for the past 4 years without a chance to return home. She tells me that she required her first blood transfusion today. She has chronic constipation but otherwise no GI problems. She has intermittent rectal bleeding which she relates to straining to defecate. She informs me that she has never had an EGD or a colonoscopy due to her COPD. She denies any FH of any GI cancers. Her last stool revealed trace blood in the lab fecal occult testing - History Source History Provided By: Patient Limitations to Obtaining History: No Limitations - Past Medical History Cardio/Vascular: Yes: CHF (end diastolic), HTN, Hyperlipdemia Pulmonary: Yes: COPD, O2 Dependent, Sleep Apnea Gastrointestinal: Yes: Constipation ...LMP: 06/03/14 ...: No Infectious Disease: Yes: Other (pneumonia) Musculoskeletal: Yes: Chronic low back pain Endocrine: Yes: Hypothyroidism - Past Surgical History Past Surgical History: Yes: - Alcohol/Substance Use Hx Alcohol Use: No History of Substance Use: reports: None - Smoking History Smoking history: Former smoker Have you smoked in the past 12 months: No If you are a former smoker, when did you quit?: 8 years ago - Social History Usual Living Arrangement: Care Home ADL: Family Assistance 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 Place of : [facility] History of Recent Travel: No Home Medications - Allergies Allergies/Adverse Reactions: Allergies Allergy/AdvReac Type Severity Reaction Status Date / Time Penicillins Allergy Severe Difficulty Verified 05/19/18 16:04 Breathing - Home Medications Home Medications: Ambulatory Orders Levothyroxine [Synthroid -] 100 mcg PO DAILY@0700 tablet 06/24/17 Losartan Potassium [Cozaar -] 25 mg PO DAILY #30 tablet 06/24/17 Roflumilast [Daliresp] 500 mcg PO DAILY #30 tablet 06/24/17 Escitalopram Oxalate [Lexapro -] 10 mg PO DAILY 08/31/17 Potassium Chloride [K-Dur -] 10 meq PO DAILY 08/31/17 Aspirin [ASA -] 81 mg PO DAILY 02/01/18 Albuterol Sulfate Inhaler - [Ventolin HFA Inhaler -] 1 - 2 inh PO Q6H PRN Montelukast Sodium [Singulair] 10 mg PO DAILY 04/05/18 Rosuvastatin [Crestor -] 5 mg PO HS 04/05/18 Albuterol 0.083% Nebulizer [place]lette [Ventolin 0.083% Nebulizer Soln -] 1 amp NEB TID PRN 05/06/18 Acetaminophen [Tylenol .Regular Strength -] 650 mg PO Q6H PRN tablet 05/16/18 Furosemide [Lasix -] 20 mg PO DAILY tablet 05/16/18 Family Disease History - Family Disease History Family Disease History: Respiratory: Father ( 80 of COPD), Brother ( of COPD), Other: Father, Mother ( 82 unknown reason) Review of Systems - Review of Systems Constitutional: reports: Lethargy, Weakness HENT: reports: No Symptoms Neck: reports: No Symptoms Cardiovascular: reports: Shortness of Breath Respiratory: reports: Exercise Intolerance, SOB on Exertion, Wheezing Gastrointestinal: reports: Constipation Physical Exam-GI Vital Signs: Vital Signs Temperature 98.3 F 06/03/18 15:53 Pulse Rate 92 H 06/03/18 15:53 Respiratory Rate 20 06/03/18 15:56 Blood Pressure 111/58 L 06/03/18 15:53 O2 Sat by Pulse Oximetry (%) 93 L 06/03/18 15:56 CBC,CMP WBC 17.3 K/mm3 (4.0-10.0) H 06/03/18 05:30 RBC 2.62 M/mm3 (3.60-5.2) L 06/03/18 05:30 Hgb 7.7 GM/dL (10.7-15.3) L 06/03/18 05:30 Hct 25.0 % (32.4-45.2) L 06/03/18 05:30 MCV 95.4 fl (80-96) 06/03/18 05:30 MCH 29.4 pg (25.7-33.7) 06/03/18 05:30 MCHC 30.8 g/dl (32.0-36.0) L 06/03/18 05:30 RDW 13.4 % (11.6-15.6) 06/03/18 05:30 Plt Count 187 K/MM3 (134-434) D 06/03/18 05:30 MPV 8.7 fl (7.5-11.1) 06/03/18 05:30 Absolute Neuts (auto) 16.6 K/mm3 (1.5-8.0) H 06/03/18 05:30 Neutrophils % 96.2 % (42.8-82.8) H 06/03/18 05:30 Neutrophils % (Manual) 81.8 % (42.8-82.8) 06/03/18 05:30 Band Neutrophils % 7.1 % 06/03/18 05:30 Lymphocytes % 1.0 % (8-40) L D 06/03/18 05:30 Lymphocytes % (Manual) 2.0 % (8-40) L D 06/03/18 05:30 Monocytes % 2.7 % (3.8-10.2) L 06/03/18 05:30 Monocytes % (Manual) 4 % (3.8-10.2) D 06/03/18 05:30 Eosinophils % 0.0 % (0-4.5) D 06/03/18 05:30 Eosinophils % (Manual) 0.0 % (0-4.5) 06/03/18 05:30 Basophils % 0.1 % (0-2.0) 06/03/18 05:30 Basophils % (Manual) 0.0 % (0-2.0) 06/03/18 05:30 Myelocytes % (Man) 5 % (0-2) H D 06/03/18 05:30 Promyelocytes % (Man) 0 % (0-2) 06/03/18 05:30 Blast Cells % (Manual) 0 % (0-0) 06/03/18 05:30 Nucleated RBC % 0 % (0-0) 06/03/18 05:30 Metamyelocytes 0 % (0-2) 06/03/18 05:30 Hypochromia 0 06/03/18 05:30 Toxic Granulation 2+ 05/26/18 06:20 Platelet Estimate Normal 06/03/18 05:30 Platelet Comment No clumping noted 05/24/18 19:35 Polychromasia 0 06/03/18 05:30 Poikilocytosis 0 06/03/18 05:30 Basophilic Stippling 1+ 06/03/18 05:30 Anisocytosis 1+ 06/03/18 05:30 Microcytosis 0 05/30/18 05:30 Macrocytosis 1+ 06/03/18 05:30 Spherocytes 1+ 05/26/18 06:20 Ovalocytes 1+ 06/03/18 05:30 Stomatocytes 1+ 06/03/18 05:30 Retic Count 0.95 % (0.5-1.5) 05/29/18 05:30 Haptoglobin 381 mg/dL (34-200) H 05/29/18 06:00 Sodium 139 mmol/L (136-145) 06/03/18 05:30 Potassium 5.5 mmol/L (3.5-5.1) H 06/03/18 05:30 Chloride 90 mmol/L (98-107) L 06/03/18 05:30 Carbon Dioxide 50 mmol/L (21-32) H 06/03/18 05:30 Anion Gap -1 MMOL/L (8-16) L 06/03/18 05:30 BUN 29 mg/dL (7-18) H 06/03/18 05:30 Creatinine 0.6 mg/dL (0.55-1.3) 06/03/18 05:30 Creat Clearance w eGFR > 60 (>60) 06/03/18 05:30 POC Glucometer 203 UNITS (80-120) 06/03/18 21:13 Random Glucose 179 mg/dL (74-106) H 06/03/18 05:30 Lactic Acid 0.7 mmol/L (0.4-2.0) 05/19/18 21:10 Calcium 8.1 mg/dL (8.5-10.1) L 06/03/18 05:30 Iron 44 ug/dL (27-159) 05/26/18 06:20 TIBC 178 ug/dL (250-450) L 05/26/18 06:20 Iron Saturation 25 % (15-55) 05/26/18 06:20 Transferrin 135 mg/dL (200-370) L 05/26/18 06:20 Ferritin 1925.6 ng/ml (8-388) H 05/26/18 06:20 Total Bilirubin 0.4 mg/dL (0.2-1) 06/03/18 05:30 AST 16 U/L (15-37) 06/03/18 05:30 ALT 36 U/L (13-61) 06/03/18 05:30 Alkaline Phosphatase 131 U/L (45-117) H 06/03/18 05:30 Ammonia 35.00 umol/L (11-32) H 05/21/18 06:45 LD Total 452 U/L (84-246) H 05/29/18 05:30 Creatine Kinase 23 IU/L (26-192) L 05/24/18 19:35 CK-BB (CK-1) 0 % TOTAL (0) 05/25/18 05:30 CK/CKMB % Calc 0 % (0-3) 05/25/18 05:30 Troponin I 0.05 ng/ml (0.00-0.05) 05/25/18 05:30 B-Natriuretic Peptide 190.8 pg/ml (5-125) H 05/25/18 05:30 Total Protein 4.9 g/dl (6.4-8.2) L 06/03/18 05:30 Albumin 2.4 g/dl (3.4-5.0) L 06/03/18 05:30 Vitamin B12 1121 pg/ml (193-986) H 05/21/18 06:45 Serum Folate 18 ng/mL (3.1-17.5) H 05/26/18 06:20 TSH 0.08 uIU/ml (0.358-3.74) L 05/21/18 06:45 Free T4 1.03 ng/dl (0.76-1.46) 05/22/18 07:08 Free T3 1.4 pg/ml (2.0-4.4) L 05/22/18 07:08 Current Medications Generic Name Dose Route Start Last Admin Trade Name Freq PRN Reason Stop Dose Admin Acetaminophen 650 mg 05/19/18 20:32 05/22/18 22:12 Tylenol - PO 650 mg Q6H PRN Administration PAIN 1-7 Albuterol Sulfate 1 amp 05/19/18 20:32 06/03/18 21:20 Ventolin 0.083% Nebulizer Soln - NEB 1 amp Q8H PRN Administration SHORT OF BREATH/WHEEZING Albuterol Sulfate 1 puff 05/19/18 20:32 06/01/18 12:30 Ventolin Hfa Inhaler - IH 1 puff Q6H PRN Administration ASTHMA Aspirin 81 mg 05/20/18 10:00 06/03/18 09:42 Asa - PO 81 mg DAILY [facility] Administration Insulin Aspart 1 vial 05/19/18 22:00 06/03/18 21:17 Novolog Vial Sliding Scale - SQ 4 units ACHS [facility] Administration Protocol Levofloxacin 500 mg 06/03/18 10:00 06/03/18 11:54 Levaquin - PO 500 mg DAILY@0600 [facility] Administration Levothyroxine Sodium 75 mcg 05/24/18 07:00 06/03/18 07:02 Synthroid - PO 75 mcg DAILY@0700 [facility] Administration Losartan Potassium 25 mg 05/27/18 10:00 06/03/18 09:42 Cozaar - PO 25 mg DAILY [facility] Administration Montelukast Sodium 10 mg 05/19/18 22:00 06/03/18 21:08 Singulair - PO 10 mg HS [facility] Administration Pantoprazole Sodium 20 mg 05/20/18 10:00 06/03/18 09:42 Protonix - PO 20 mg DAILY [facility] Administration Prednisone 30 mg 06/02/18 10:45 06/03/18 21:08 Deltasone - PO 30 mg BID [facility] Administration Roflumilast 500 mcg 05/20/18 10:00 06/03/18 09:42 Daliresp - PO 500 mcg DAILY [facility] Administration Rosuvastatin Calcium 5 mg 05/19/18 22:00 06/03/18 21:08 Crestor - PO 5 mg HS [facility] Administration Sodium Chloride 2 spray 05/27/18 22:00 06/03/18 21:09 [place] Nasal [place] - NS 2 spray BID [facility] Administration Tiotropium [place] 2 puff 06/02/18 10:45 06/03/18 09:44 Spiriva Respimat IH 2 puff DAILY [facility] Administration Constitutional: Yes: Calm, Other (on BiPap) Eyes: Yes: Conjunctiva Clear HENT: Yes: Atraumatic Neck: Yes: Supple Cardiovascular: Yes: Regular Rate and Rhythm Respiratory: Yes: On BiPap Gastrointestinal Inspection: Yes: Scars (healed Pfannensteil incision) ...Auscultate: Yes: Normoactive Bowel Sounds ...Palpate: Yes: Soft, Other (nontender) ...Rectal Exam: Yes: Deferred (unable on BiPap) Labs: CBC, BMP 06/03/18 05:30 06/03/18 05:30 INR, PTT INR 0.97 (0.83-1.09) 05/19/18 16:15 Laboratory Tests 06/08/14 10/13/15 08/31/17 07:40 14:36 06:37 Hgb 15.6 H 13.4 D 10.5 L 05/19/18 05/24/18 05/30/18 16:15 19:35 05:30 Hgb 10.5 L 9.6 L 8.5 L 06/03/18 05:30 Hgb 7.7 L Problem List - Problems (1) Anemia Assessment/Plan: Susanne rectal bleeding appears to be hemorrhoidal in origin as it occurs intermittently and in the setting of chromic constipation. I do not believe that it is the primary cause of her anemia. She is at risk for stress gastritis bleeding and should be maintained on a PPI. Her respiratory condition precludes elective endoscopic evaluations. Dr Jc will return next week. Code(s): D64.9 - ANEMIA, UNSPECIFIED (2) Rectal bleeding Code(s): K62.5 - HEMORRHAGE OF ANUS AND RECTUM (3) COPD exacerbation Code(s): J44.1 - CHRONIC OBSTRUCTIVE PULMONARY DISEASE W (ACUTE) EXACERBATION (4) Constipation Code(s): K59.00 - CONSTIPATION, UNSPECIFIED (5) Hypothyroidism Code(s): E03.9 - HYPOTHYROIDISM, UNSPECIFIED Qualifiers: Hypothyroidism type: unspecified Qualified Code(s): E03.9 - Hypothyroidism , unspecified (6) Sleep apnea Code(s): G47.30 - SLEEP APNEA, UNSPECIFIED Qualifiers: Sleep apnea type: unspecified type Qualified Code(s): G47.30 - Sleep apnea , unspecified Assessment/Plan Doubt GI source of anemia COPD precludes an endoscopic evaluation Dr Jc can re-evaluate when he returns next week
[2018-06-04] MEDS: ALBUTEROL SO4 0.083% IH SOL 2.5 MG/3 ML VIAL.NEB. NEB PRN ×6 (01:25→22:59)
[2018-06-04] MEDS ORDERED: PT OWN MED DRAWER 7, Y5N ONE ×2 (06:11→11:13)
[2018-06-04] MEDS: INSULIN SLIDING SCALE (NOVOLOG) 1 VIAL SQ SCH ×4 (06:12→21:24)
[2018-06-04] MEDS: LEVOTHYROXINE NA 75 MCG TABLET (FP) PO SCH (06:12)
--- NOTE | 2018-06-04 07:21 | PN ---
Progress Note, Physician Chief Complaint: on 7w used bipap inytermittently; on po steroids and po ATB, no new c/o; generally weak but feels a little stronger - Current Medication List Current Medications: Active Medications Acetaminophen (Tylenol -) 650 mg PO Q6H PRN PRN Reason: PAIN 1-7 Last Admin: 05/22/18 22:12 Dose: 650 mg Albuterol Sulfate (Ventolin 0.083% Nebulizer Soln -) 1 amp NEB Q8H PRN PRN Reason: SHORT OF BREATH/WHEEZING Last Admin: 06/04/18 01:25 Dose: 1 amp Albuterol Sulfate (Ventolin Hfa Inhaler -) 1 puff IH Q6H PRN PRN Reason: ASTHMA Last Admin: 06/01/18 12:30 Dose: 1 puff Aspirin (Asa -) 81 mg PO DAILY [facility] Last Admin: 06/03/18 09:42 Dose: 81 mg Insulin Aspart (Novolog Vial Sliding Scale -) 1 vial SQ ACHS [facility]; Protocol Last Admin: 06/04/18 06:12 Dose: 4 units Levofloxacin (Levaquin -) 500 mg PO DAILY@0600 [facility] Last Admin: 06/04/18 06:12 Dose: 500 mg Levothyroxine Sodium (Synthroid -) 75 mcg PO DAILY@0700 [facility] Last Admin: 06/04/18 06:12 Dose: 75 mcg Losartan Potassium (Cozaar -) 25 mg PO DAILY [facility] Last Admin: 06/03/18 09:42 Dose: 25 mg Montelukast Sodium (Singulair -) 10 mg PO [facility] Last Admin: 06/03/18 21:08 Dose: 10 mg Pantoprazole Sodium (Protonix -) 20 mg PO DAILY [facility] Last Admin: 06/03/18 09:42 Dose: 20 mg Prednisone (Deltasone -) 30 mg PO BID [facility] Last Admin: 06/03/18 21:08 Dose: 30 mg Roflumilast (Daliresp -) 500 mcg PO DAILY [facility] Last Admin: 06/03/18 09:42 Dose: 500 mcg Rosuvastatin Calcium (Crestor -) 5 mg PO HS [facility] Last Admin: 06/03/18 21:08 Dose: 5 mg Sodium Chloride ([place] Nasal [place] -) 2 spray NS BID [facility] Last Admin: 06/03/18 21:09 Dose: 2 spray Tiotropium [place] (Spiriva Respimat) 2 puff IH DAILY [facility] Last Admin: 06/03/18 09:44 Dose: 2 puff - Objective Vital Signs: Vital Signs Temperature 98.4 F 06/04/18 06:11 Pulse Rate 95 H 06/04/18 06:11 Respiratory Rate 20 06/04/18 06:11 Blood Pressure 109/63 06/04/18 06:11 O2 Sat by Pulse Oximetry (%) 93 L 06/03/18 21:00 Constitutional: Yes: No Distress, Calm Eyes: Yes: Conjunctiva Clear HENT: Yes: Atraumatic Neck: Yes: Supple Cardiovascular: Yes: Regular Rate and Rhythm Respiratory: Yes: Rales, Rhonchi Gastrointestinal: Yes: Soft. No: Distention Genitourinary: No: Hematuria Extremities: No: Cold, Cool Edema: No Integumentary: Yes: Bruising (RUE improving) Neurological: Yes: WNL, Alert, Oriented. No: Tremors ...Motor Strength: WNL Psychiatric: Yes: WNL, Alert, Oriented. No: Agitated, Suicidal Ideation Labs: INR, PTT INR 0.97 (0.83-1.09) 05/19/18 16:15 - ....Imaging Chest X-ray: Report Reviewed Other: Report Reviewed Assessment/Plan The patient is a 57F w/ a history of severe advanced COPD O2 dependant and frequent Bipap use, HTN, CAD, hypothyroidism admitted with acute on chronic COPD exacerbation. s/p Fall. Sinusitis, PNA acute on chronic exacerbation of COPD; anemia; hyperK pulmonary f/u; po steroids Bipap to use it as ordered antibiotics po per ID stopped po K, f/u labs s/p transfused 2 U PRBC ;heme f/u and GI eval; heparin sq DCd for now gastric pfx while on steroids; BGM and GLU control while on steroids R hand hematoma stable labs f/u falls decubs DVT PFX prognosis guarded d/w pt and staff
[2018-06-04 07:40] LABS: EOS % 0.1 % (0-4.5); HEMATOCRIT 28.9 % (32.4-45.2); HEMOGLOBIN 9.7 GM/dL (10.7-15.3); LYMPH % 1.5 % (8-40); MCH 30.6 pg (25.7-33.7); MCHC 33.7 g/dl (32.0-36.0); MEAN CELL VOLUME 90.8 fl (80-96); MEAN PLT VOLUME 8.9 fl (7.5-11.1); MONO % 3.2 % (3.8-10.2); NEUT % 95.2 % (42.8-82.8); PLATELET COUNT 220 K/MM3 (134-434); RBC 3.18 M/mm3 (3.60-5.2); RDW 14.9 % (11.6-15.6); WHITE BLOOD COUNT 18.4 K/mm3 (4.0-10.0)
[2018-06-04 08:37] LABS: ALBUMIN 2.6 g/dl (3.4-5.0); ALK PHOS 149 U/L (45-117); ANION GAP 5 MMOL/L (8-16); BILIRUBIN,TOTAL 1.2 mg/dL (0.2-1); BLOOD UREA NITROGEN 28 mg/dL (7-18); CALCIUM 8.2 mg/dL (8.5-10.1); CHLORIDE 88 mmol/L (98-107); CO2 > 45 mmol/L (21-32); CREATININE 0.6 mg/dL (0.55-1.3); GLUCOSE,RANDOM 178 mg/dL (74-106); POTASSIUM 4.5 mmol/L (3.5-5.1); SGOT/AST 25 U/L (15-37); SGPT/ALT 38 U/L (13-61); SODIUM 139 mmol/L (136-145); TOT PROT 5.1 g/dl (6.4-8.2)
--- NOTE | 2018-06-04 11:05 | PN ---
Progress Note, Physician History of Present Illness: Resting comfortably, non-productive cough, wheezing and dyspnea slowly improving. - Current Medication List Current Medications: Active Medications Acetaminophen (Tylenol -) 650 mg PO Q6H PRN PRN Reason: PAIN 1-7 Last Admin: 05/22/18 22:12 Dose: 650 mg Albuterol Sulfate (Ventolin 0.083% Nebulizer Soln -) 1 amp NEB Q8H PRN PRN Reason: SHORT OF BREATH/WHEEZING Last Admin: 06/04/18 08:26 Dose: 1 amp Albuterol Sulfate (Ventolin Hfa Inhaler -) 1 puff IH Q6H PRN PRN Reason: ASTHMA Last Admin: 06/01/18 12:30 Dose: 1 puff Aspirin (Asa -) 81 mg PO DAILY [facility] Last Admin: 06/03/18 09:42 Dose: 81 mg Insulin Aspart (Novolog Vial Sliding Scale -) 1 vial SQ ACHS [facility]; Protocol Last Admin: 06/04/18 06:12 Dose: 4 units Lactobacillus Acidophilus (Bacid -) 1 tab PO DAILY [facility] Levofloxacin (Levaquin -) 500 mg PO DAILY@0600 [facility] Last Admin: 06/04/18 06:12 Dose: 500 mg Levothyroxine Sodium (Synthroid -) 75 mcg PO DAILY@0700 [facility] Last Admin: 06/04/18 06:12 Dose: 75 mcg Losartan Potassium (Cozaar -) 25 mg PO DAILY [facility] Last Admin: 06/03/18 09:42 Dose: 25 mg Montelukast Sodium (Singulair -) 10 mg PO [facility] Last Admin: 06/03/18 21:08 Dose: 10 mg Pantoprazole Sodium (Protonix -) 20 mg PO DAILY [facility] Last Admin: 06/03/18 09:42 Dose: 20 mg Prednisone (Deltasone -) 30 mg PO BID [facility] Last Admin: 06/03/18 21:08 Dose: 30 mg Roflumilast (Daliresp -) 500 mcg PO DAILY [facility] Last Admin: 06/03/18 09:42 Dose: 500 mcg Rosuvastatin Calcium (Crestor -) 5 mg PO HS [facility] Last Admin: 06/03/18 21:08 Dose: 5 mg Sodium Chloride ([place] Nasal [place] -) 2 spray NS BID [facility] Last Admin: 06/03/18 21:09 Dose: 2 spray Tiotropium [place] (Spiriva Respimat) 2 puff IH DAILY [facility] Last Admin: 06/03/18 09:44 Dose: 2 puff - Objective Vital Signs: Vital Signs Temperature 98.4 F 06/04/18 06:11 Pulse Rate 95 H 06/04/18 06:11 Respiratory Rate 20 06/04/18 06:11 Blood Pressure 109/63 06/04/18 06:11 O2 Sat by Pulse Oximetry (%) 97 06/04/18 09:00 Constitutional: Yes: No Distress, Calm Neck: Yes: Supple Cardiovascular: Yes: Regular Rate and Rhythm Respiratory: Yes: Regular, Diminished, On Nasal O2 Gastrointestinal: Yes: Normal Bowel Sounds, Soft, Abdomen, Obese Edema: No Labs: CBC, BMP 06/04/18 07:06 06/04/18 07:06 INR, PTT INR 0.97 (0.83-1.09) 05/19/18 16:15 Problem List - Problems (1) COPD exacerbation Code(s): J44.1 - CHRONIC OBSTRUCTIVE PULMONARY DISEASE W (ACUTE) EXACERBATION (2) Acute on chronic respiratory failure with hypoxia and hypercapnia Code(s): J96.21 - ACUTE AND CHRONIC RESPIRATORY FAILURE WITH HYPOXIA; J96.22 - ACUTE AND CHRONIC RESPIRATORY FAILURE WITH HYPERCAPNIA (3) Diastolic dysfunction Code(s): I51.9 - HEART DISEASE, UNSPECIFIED (4) Hyperlipidemia Code(s): E78.5 - HYPERLIPIDEMIA, UNSPECIFIED Qualifiers: Hyperlipidemia type: pure hypercholesterolemia Qualified Code(s): E78.00 - Pure hypercholesterolemia, unspecified; E78.0 - Pure hypercholesterolemia (5) Hypertension Code(s): I10 - ESSENTIAL (PRIMARY) HYPERTENSION Qualifiers: Hypertension type: essential hypertension Qualified Code(s): I10 - Essential (primary) hypertension (6) Hypothyroidism Code(s): E03.9 - HYPOTHYROIDISM, UNSPECIFIED Qualifiers: Hypothyroidism type: unspecified Qualified Code(s): E03.9 - Hypothyroidism , unspecified (7) Shortness of breath Code(s): R06.02 - SHORTNESS OF BREATH (8) Sleep apnea Code(s): G47.30 - SLEEP APNEA, UNSPECIFIED Qualifiers: Sleep apnea type: unspecified type Qualified Code(s): G47.30 - Sleep apnea , unspecified Assessment/Plan 1. Acute on chronic hypoxic and hypercapneic respiratory failure 2. Home O2-dependent chronic obstructive pulmonary disease exacerbation 3. Probable pneumonia 4. Post toxic metabolic encephalopathy referable to hypercapnea 5. CAD coronary artery calcification angina pectoris 6. Diastolic LV dysfunction with chronic class I NYHA classification LV failure 7. HTN/HCVD 8. Hypercholesterolemia/mixed dyslipidemia 9. Hypothyroidism 10. Right hand hematoma 11. Anemia 12. OSAS 13. Hyperkalemia PLAN: 1. Losartan 25 mg QD with monitor K and Crestor 5 mg QD as tolerated 2. Consider transfuse to maintain Hgb>8.0 3. Continue ASA 81 mg QD 4. Continue pulmonary treatment. BIPAP nightly and prn, bronchodilator, Singulair, Daliresp and slow oral = steroid taper 5. Completed empiric antibiotic course 6. DVT and GI prophylaxis 7. SNF once pulmonary status improves
[2018-06-04] MEDS: TIOTROPIUM BROMIDE 2.5 MCG (SPIRIVA) RESPIMAT INHALER IH SCH (11:14)
[2018-06-04] MEDS: predniSONE 10 MG TABLET (UD) PO SCH ×2 (11:15→21:23)
[2018-06-04] MEDS: ASPIRIN 81 MG CHEWABLE TABLETS PO SCH (11:15)
[2018-06-04] MEDS: LOSARTAN POTASSIUM 25 MG TABLET PO SCH (11:15)
[2018-06-04] MEDS: LACTOBACILLUS ACIDOPHILUS 1 TABLET PO SCH (11:16)
[2018-06-04] MEDS: ROFLUMILAST 500 MCG TABLET PO SCH (11:16)
[2018-06-04] MEDS: PANTOPRAZOLE 20 MG TABLET (FP) PO SCH (11:16)
[2018-06-04] MEDS: SODIUM CHLORIDE NASAL SPRAY 44 ML BOTTLE NS SCH ×2 (12:04→21:23)
[2018-06-04 13:41] LABS: ANISOCYTOSIS 0; MACROCYTOSIS 0; PLATELET ESTIMATE NORMAL
[2018-06-04] MEDS ORDERED: INSULIN (NOVOLOG) ASPART 100 UNITS/ML 10ML VIAL ONE (21:07)
[2018-06-04] MEDS: ROSUVASTATIN CA 5 MG TABLET (FP) PO SCH (21:23)
[2018-06-04] MEDS: MONTELUKAST NA 10 MG TABLET PO SCH (21:23)
[2018-06-05] MEDS: INSULIN SLIDING SCALE (NOVOLOG) 1 VIAL SQ SCH ×4 (06:20→22:01)
[2018-06-05] MEDS: LEVOTHYROXINE NA 75 MCG TABLET (FP) PO SCH (06:20)
[2018-06-05 07:28] LABS: BASO % 0.1 % (0-2.0); HEMATOCRIT 30.1 % (32.4-45.2); HEMOGLOBIN 9.5 GM/dL (10.7-15.3); LYMPH % 1.1 % (8-40); MCH 29.2 pg (25.7-33.7); MCHC 31.6 g/dl (32.0-36.0); MEAN CELL VOLUME 92.6 fl (80-96); MEAN PLT VOLUME 8.5 fl (7.5-11.1); MONO % 2.8 % (3.8-10.2); PLATELET COUNT 192 K/MM3 (134-434); RBC 3.25 M/mm3 (3.60-5.2); RDW 14.4 % (11.6-15.6); WHITE BLOOD COUNT 14.7 K/mm3 (4.0-10.0)
[2018-06-05 08:10] LABS: ALBUMIN 2.5 g/dl (3.4-5.0); ALK PHOS 139 U/L (45-117); ANION GAP 7 MMOL/L (8-16); BILIRUBIN,TOTAL 0.6 mg/dL (0.2-1); BLOOD UREA NITROGEN 30 mg/dL (7-18); CALCIUM 7.9 mg/dL (8.5-10.1); CHLORIDE 90 mmol/L (98-107); CO2 44 mmol/L (21-32); CREATININE 0.5 mg/dL (0.55-1.3); GLUCOSE,RANDOM 177 mg/dL (74-106); POTASSIUM 4.3 mmol/L (3.5-5.1); SGOT/AST 22 U/L (15-37); SGPT/ALT 34 U/L (13-61); SODIUM 141 mmol/L (136-145); TOT PROT 4.8 g/dl (6.4-8.2)
[2018-06-05] MEDS ORDERED: PT OWN MED DRAWER 7, Y5N ONE ×2 (08:46→20:38)
[2018-06-05] MEDS: ROFLUMILAST 500 MCG TABLET PO SCH (09:07)
[2018-06-05] MEDS: LOSARTAN POTASSIUM 25 MG TABLET PO SCH (09:07)
[2018-06-05] MEDS: PANTOPRAZOLE 20 MG TABLET (FP) PO SCH (09:07)
[2018-06-05] MEDS: predniSONE 10 MG TABLET (UD) PO SCH ×2 (09:07→21:59)
[2018-06-05] MEDS: ASPIRIN 81 MG CHEWABLE TABLETS PO SCH (09:07)
[2018-06-05] MEDS: LACTOBACILLUS ACIDOPHILUS 1 TABLET PO SCH (09:07)
[2018-06-05] MEDS: SODIUM CHLORIDE NASAL SPRAY 44 ML BOTTLE NS SCH ×2 (09:08→22:00)
[2018-06-05] MEDS: TIOTROPIUM BROMIDE 2.5 MCG (SPIRIVA) RESPIMAT INHALER IH SCH (09:08)
[2018-06-05 10:05] LABS: ANISOCYTOSIS 1+; MACROCYTOSIS 1+; PLATELET ESTIMATE NORMAL
--- NOTE | 2018-06-05 11:11 | PN ---
Progress Note (short form) - Note Progress Note: Mildly tachypneic at rest, but overall improved. Non-productive cough No CP. Using NIPPV overnight. Intake & Output 06/02/18 06/03/1818 06/05/18 23:59 23:59 23:59 23:59 Intake Total 570 350 850 200 Balance 570 350 850 200 Last Vital Signs Temp Pulse Resp BP Pulse Ox 98.4 F 96 H 20 116/69 95 06/05/18 10:00 06/05/18 10:00 06/05/18 10:00 06/05/18 10:00 06/05/18 09:00 Active Medications Acetaminophen (Tylenol -) 650 mg PO Q6H PRN PRN Reason: PAIN 1-7 Last Admin: 05/22/18 22:12 Dose: 650 mg Albuterol Sulfate (Ventolin 0.083% Nebulizer Soln -) 1 amp NEB Q8H PRN PRN Reason: SHORT OF BREATH/WHEEZING Last Admin: 06/04/18 22:59 Dose: 1 amp Albuterol Sulfate (Ventolin Hfa Inhaler -) 1 puff IH Q6H PRN PRN Reason: ASTHMA Last Admin: 06/01/18 12:30 Dose: 1 puff Aspirin (Asa -) 81 mg PO DAILY [facility] Last Admin: 06/05/18 09:07 Dose: 81 mg Insulin Aspart (Novolog Vial Sliding Scale -) 1 vial SQ ACHS [facility]; Protocol Last Admin: 06/05/18 06:20 Dose: 2 units Lactobacillus Acidophilus (Bacid -) 1 tab PO DAILY [facility] Last Admin: 06/05/18 09:07 Dose: 1 tab Levofloxacin (Levaquin -) 500 mg PO DAILY@0600 [facility] Last Admin: 06/05/18 05:50 Dose: 500 mg Levothyroxine Sodium (Synthroid -) 75 mcg PO DAILY@0700 [facility] Last Admin: 06/05/18 06:20 Dose: 75 mcg Losartan Potassium (Cozaar -) 25 mg PO DAILY [facility] Last Admin: 06/05/18 09:07 Dose: 25 mg Montelukast Sodium (Singulair -) 10 mg PO HS [facility] Last Admin: 06/04/18 21:23 Dose: 10 mg Pantoprazole Sodium (Protonix -) 20 mg PO DAILY [facility] Last Admin: 06/05/18 09:07 Dose: 20 mg Prednisone (Deltasone -) 30 mg PO BID [facility] Last Admin: 06/05/18 09:07 Dose: 30 mg Roflumilast (Daliresp -) 500 mcg PO DAILY [facility] Last Admin: 06/05/18 09:07 Dose: 500 mcg Rosuvastatin Calcium (Crestor -) 5 mg PO HS [facility] Last Admin: 06/04/18 21:23 Dose: 5 mg Sodium Chloride ([place] Nasal [place] -) 2 spray NS BID [facility] Last Admin: 06/05/18 09:08 Dose: 2 spray Tiotropium [place] (Spiriva Respimat) 2 puff IH DAILY [facility] Last Admin: 06/05/18 09:08 Dose: 2 puff Constitutional: Yes: Awake and alert, mildly dyspneic at rest Eyes: Yes: WNL HENT: Yes: WNL Neck: Yes: WNL Cardiovascular: Yes: Regular Rate and Rhythm, S1, S2 Respiratory: Yes: diminished throughout, bibasilr rhonchi/crackles, (-) wheeze Gastrointestinal: Yes: WNL Extremities: Yes: right hand ecchymotic Edema: No Labs: Laboratory Results - last 24 hr 06/04/18 06/04/18 06/04/18 07:06 12:53 16:47 WBC RBC Hgb Hct MCV MCH MCHC RDW Plt Count MPV Absolute Neuts (auto) Neutrophils % Neutrophils % (Manual) 87.0 H Band Neutrophils % 1.0 Lymphocytes % Lymphocytes % (Manual) 2.0 L Monocytes % Monocytes % (Manual) 2 L Eosinophils % Eosinophils % (Manual) 0.0 Basophils % Basophils % (Manual) 0.0 Myelocytes % (Man) 5 H Promyelocytes % (Man) 0 Blast Cells % (Manual) 0 Nucleated RBC % 0 Metamyelocytes 3 H D Hypochromia 0 Platelet Estimate Normal Polychromasia 0 Poikilocytosis 0 Anisocytosis 0 Microcytosis 0 Macrocytosis 0 Sodium Potassium Chloride Carbon Dioxide Anion Gap BUN Creatinine Creat Clearance w eGFR POC Glucometer 114 179 Random Glucose Calcium Total Bilirubin AST ALT Alkaline Phosphatase Total Protein Albumin 06/04/18 06/05/18 06/05/18 21:20 05:49 06:00 WBC 14.7 H RBC 3.25 L Hgb 9.5 L Hct 30.1 L MCV 92.6 MCH 29.2 MCHC 31.6 L RDW 14.4 Plt Count 192 MPV 8.5 Absolute Neuts (auto) 14.1 H Neutrophils % 96.0 H Neutrophils % (Manual) 89.0 H Band Neutrophils % 3.0 Lymphocytes % 1.1 L D Lymphocytes % (Manual) 3.0 L D Monocytes % 2.8 L Monocytes % (Manual) 2 L Eosinophils % 0.0 D Eosinophils % (Manual) 0.0 Basophils % 0.1 D Basophils % (Manual) 0.0 Myelocytes % (Man) 2 D Promyelocytes % (Man) 0 Blast Cells % (Manual) 0 Nucleated RBC % 0 Metamyelocytes 1 D Hypochromia 0 Platelet Estimate Normal Polychromasia 0 Poikilocytosis 0 Anisocytosis 1+ Microcytosis 0 Macrocytosis 1+ Sodium Potassium Chloride Carbon Dioxide Anion Gap BUN Creatinine Creat Clearance w eGFR POC Glucometer 211 195 Random Glucose Calcium Total Bilirubin AST ALT Alkaline Phosphatase Total Protein Albumin 06/05/18 06:00 WBC RBC Hgb Hct MCV MCH MCHC RDW Plt Count MPV Absolute Neuts (auto) Neutrophils % Neutrophils % (Manual) Band Neutrophils % Lymphocytes % Lymphocytes % (Manual) Monocytes % Monocytes % (Manual) Eosinophils % Eosinophils % (Manual) Basophils % Basophils % (Manual) Myelocytes % (Man) Promyelocytes % (Man) Blast Cells % (Manual) Nucleated RBC % Metamyelocytes Hypochromia Platelet Estimate Polychromasia Poikilocytosis Anisocytosis Microcytosis Macrocytosis Sodium 141 Potassium 4.3 Chloride 90 L Carbon Dioxide 44 H Anion Gap 7 L BUN 30 H Creatinine 0.5 L Creat Clearance w eGFR > 60 POC Glucometer Random Glucose 177 H Calcium 7.9 L Total Bilirubin 0.6 AST 22 ALT 34 Alkaline Phosphatase 139 H Total Protein 4.8 L Albumin 2.5 L Problem List - Problems (1) Altered mental status Code(s): R41.82 - ALTERED MENTAL STATUS, UNSPECIFIED Qualifiers: Altered mental status type: disorientation Qualified Code(s): R41.0 - Disorientation, unspecified (2) COPD exacerbation Code(s): J44.1 - CHRONIC OBSTRUCTIVE PULMONARY DISEASE W (ACUTE) EXACERBATION (3) Acute on chronic respiratory failure with hypoxia and hypercapnia Code(s): J96.21 - ACUTE AND CHRONIC RESPIRATORY FAILURE WITH HYPOXIA; J96.22 - ACUTE AND CHRONIC RESPIRATORY FAILURE WITH HYPERCAPNIA (4) CHF (congestive heart failure) Code(s): I50.9 - HEART FAILURE, UNSPECIFIED (5) COPD exacerbation Code(s): J44.1 - CHRONIC OBSTRUCTIVE PULMONARY DISEASE W (ACUTE) EXACERBATION (6) Diastolic dysfunction Code(s): I51.9 - HEART DISEASE, UNSPECIFIED (7) Sleep apnea Code(s): G47.30 - SLEEP APNEA, UNSPECIFIED Assessment/Plan IMP ACUTE ON CHRONIC HYPOXEMIC HYPERCAPNEIC RESPIRATORY FAILURE COPD O2 DEPENDENT PNEUMONIA ALTERED MENTAL STATUS CHF HYPOTHYROID NAVDEEP BILATERAL HAP PLAN PREDNISONE INHALED BRONCHODILATORS O2 NIPPV AT NIGHT AND PRN WILL NEED RADIOGRAPHIC FOLLOW UP AFTER DISCHARGE DUE TO ADVANCING COPD, SHE WILL EVENTUALLY NEED A TRACH D/C PLANNING TO REHAB DR IVEY
--- NOTE | 2018-06-05 11:15 | PN ---
Progress Note, Physician Chief Complaint: felt anxious earlier; used to be on po lexapro which was held b/o low PLT; PLT stable; will restart lexapro, f/u labs; also no BM x 2 days will order miralax; used bipap prn, no tremors; occasional SOB; - Current Medication List Current Medications: Active Medications Acetaminophen (Tylenol -) 650 mg PO Q6H PRN PRN Reason: PAIN 1-7 Last Admin: 05/22/18 22:12 Dose: 650 mg Albuterol Sulfate (Ventolin 0.083% Nebulizer Soln -) 1 amp NEB Q8H PRN PRN Reason: SHORT OF BREATH/WHEEZING Last Admin: 06/04/18 22:59 Dose: 1 amp Albuterol Sulfate (Ventolin Hfa Inhaler -) 1 puff IH Q6H PRN PRN Reason: ASTHMA Last Admin: 06/01/18 12:30 Dose: 1 puff Aspirin (Asa -) 81 mg PO DAILY [facility] Last Admin: 06/05/18 09:07 Dose: 81 mg Insulin Aspart (Novolog Vial Sliding Scale -) 1 vial SQ [facility]; Protocol Last Admin: 06/05/18 06:20 Dose: 2 units Lactobacillus Acidophilus (Bacid -) 1 tab PO DAILY [facility] Last Admin: 06/05/18 09:07 Dose: 1 tab Levothyroxine Sodium (Synthroid -) 75 mcg PO DAILY@0700 [facility] Last Admin: 06/05/18 06:20 Dose: 75 mcg Losartan Potassium (Cozaar -) 25 mg PO DAILY [facility] Last Admin: 06/05/18 09:07 Dose: 25 mg Montelukast Sodium (Singulair -) 10 mg PO [facility] Last Admin: 06/04/18 21:23 Dose: 10 mg Pantoprazole Sodium (Protonix -) 20 mg PO DAILY [facility] Last Admin: 06/05/18 09:07 Dose: 20 mg Prednisone (Deltasone -) 30 mg PO BID [facility] Last Admin: 06/05/18 09:07 Dose: 30 mg Roflumilast (Daliresp -) 500 mcg PO DAILY [facility] Last Admin: 06/05/18 09:07 Dose: 500 mcg Rosuvastatin Calcium (Crestor -) 5 mg PO [facility] Last Admin: 06/04/18 21:23 Dose: 5 mg Sodium Chloride ([place] Nasal [place] -) 2 spray NS BID [facility] Last Admin: 06/05/18 09:08 Dose: 2 spray Tiotropium [place] (Spiriva Respimat) 2 puff IH DAILY [facility] Last Admin: 06/05/18 09:08 Dose: 2 puff - Objective Vital Signs: Vital Signs Temperature 98.4 F 06/05/18 10:00 Pulse Rate 96 H 06/05/18 10:00 Respiratory Rate 20 06/05/18 10:00 Blood Pressure 116/69 06/05/18 10:00 O2 Sat by Pulse Oximetry (%) 95 06/05/18 09:00 Constitutional: Yes: No Distress, Anxious Eyes: Yes: Conjunctiva Clear HENT: Yes: Atraumatic Neck: Yes: Supple Cardiovascular: Yes: Regular Rate and Rhythm Respiratory: Yes: CTA Bilaterally Gastrointestinal: Yes: Soft. No: Distention Genitourinary: No: Hematuria Musculoskeletal: No: Joint Stiffness, Joint Swelling Extremities: No: Cold, Cool, Cyanosis Edema: No Integumentary: Yes: Bruising (stable). No: Rash, Venous Stasis Changes Neurological: Yes: WNL, Alert, Oriented ...Motor Strength: WNL Psychiatric: Yes: WNL, Alert, Oriented. No: Agitated, Suicidal Ideation Labs: CBC, BMP 06/05/18 06:00 06/05/18 06:00 INR, PTT INR 0.97 (0.83-1.09) 05/19/18 16:15 - ....Imaging Other: Report Reviewed Assessment/Plan The patient is a 57F w/ a history of severe advanced COPD O2 dependant and frequent Bipap use, HTN, CAD, hypothyroidism admitted with acute on chronic COPD exacerbation. s/p Fall. Sinusitis, PNA acute on chronic exacerbation of COPD; anemia; hyperK pulmonary f/u; po steroids Bipap to use it as ordered; pulm consult appreciated and d/w pt (also pt's aware) pt might need tracheostomy in the future; antibiotics po per ID anemia and PLT improved; restart lexapro and heparin and f/u labs miralax prn constipation gastric pfx while on steroids; BGM and GLU control while on steroids R hand hematoma stable labs f/u falls decubs DVT PFX prognosis guarded if stable over weekend will attempt to DC to SNF/NH on thursday for pulm rehab; pt and aware to f/u with PCP dr Navarro and pulm dr Parrish after DC home - to discuss with pulmonary and PCP team about possible eval for lung transplant as outpt. d/w pt and staff
--- NOTE | 2018-06-05 12:01 | PN ---
Progress Note (short form) - Note Progress Note: Chief Complaint: Events noted, notes reviewed, dyspnea persists but improved, denies any chest pain, anxious wants to be D/C to subacute care to initiate rehab History of Present Illness: Seen and examined. Events noted, notes reviewed, dyspnea persists but improved, denies any chest pain, anxious wants to be D/C to subacute care to initiate rehab - Current Medication List Current Medications Acetaminophen (Tylenol -) 650 mg PO Q6H PRN PRN Reason: PAIN 1-7 Last Admin: 05/22/18 22:12 Dose: 650 mg Albuterol Sulfate (Ventolin 0.083% Nebulizer Soln -) 1 amp NEB Q8H PRN PRN Reason: SHORT OF BREATH/WHEEZING Last Admin: 06/04/18 22:59 Dose: 1 amp Albuterol Sulfate (Ventolin Hfa Inhaler -) 1 puff IH Q6H PRN PRN Reason: ASTHMA Last Admin: 06/01/18 12:30 Dose: 1 puff Arformoterol Tartrate ([place]rovana (Restricted To Pulmonology/Resp) -) 1 amp NEB RBID [facility] Aspirin (Asa -) 81 mg PO DAILY [facility] Last Admin: 06/05/18 09:07 Dose: 81 mg Insulin Aspart (Novolog Vial Sliding Scale -) 1 vial SQ ACHS [facility]; Protocol Last Admin: 06/05/18 06:20 Dose: 2 units Lactobacillus Acidophilus (Bacid -) 1 tab PO DAILY [facility] Last Admin: 06/05/18 09:07 Dose: 1 tab Levothyroxine Sodium (Synthroid -) 75 mcg PO DAILY@0700 [facility] Last Admin: 06/05/18 06:20 Dose: 75 mcg Losartan Potassium (Cozaar -) 25 mg PO DAILY [facility] Last Admin: 06/05/18 09:07 Dose: 25 mg Montelukast Sodium (Singulair -) 10 mg PO HS [facility] Last Admin: 06/04/18 21:23 Dose: 10 mg Pantoprazole Sodium (Protonix -) 20 mg PO DAILY [facility] Last Admin: 06/05/18 09:07 Dose: 20 mg Prednisone (Deltasone -) 30 mg PO BID [facility] Last Admin: 06/05/18 09:07 Dose: 30 mg Roflumilast (Daliresp -) 500 mcg PO DAILY [facility] Last Admin: 06/05/18 09:07 Dose: 500 mcg Rosuvastatin Calcium (Crestor -) 5 mg PO HS [facility] Last Admin: 06/04/18 21:23 Dose: 5 mg Sodium Chloride ([place] Nasal [place] -) 2 spray NS BID [facility] Last Admin: 06/05/18 09:08 Dose: 2 spray Tiotropium [place] (Spiriva Respimat) 2 puff IH DAILY [facility] Last Admin: 06/05/18 09:08 Dose: 2 puff - Objective Vital Signs: Last Vital Signs Temp Pulse Resp BP Pulse Ox 98.4 F 96 H 20 116/69 95 06/05/18 10:00 06/05/18 10:00 06/05/18 10:00 06/05/18 10:00 06/05/18 09:00 Intake & Output 06/02/18 06/03/18 06/04/18 06/05/18 23:59 23:59 23:59 23:59 Intake Total 570 350 850 200 Balance 570 350 850 200 Constitutional: Mild Distress, Anxious Neck: Supple Negative JVD No Bruit Respiratory: Distant Breath Sounds Bilaterally Scattered Rhonchi Cardiovascular: S1 S2 Regular Rate and Rhythm Gastrointestinal: Soft Benign Normal Bowel Sounds Ext: No Edema Labs: ABG Results ABG pH 7.32 (7.35-7.45) L 06/03/18 10:20 ABG pCO2 at Pt Temp 94.4 mmHg (35-45) H* 06/03/18 10:20 ABG pO2 at Pt Temp 65.8 mmHg (80-100) L 06/03/18 10:20 ABG HCO3 46.8 meq/L (22-26) H* 06/03/18 10:20 ABG O2 Sat (Measured) 91.6 % (90-98.9) 06/03/18 10:20 ABG O2 Content 10.0 % vol (15-22) L 06/03/18 10:20 ABG Base Excess 18.5 meq/l (-2-2) H* 06/03/18 10:20 CBC, BMP 06/05/18 06:00 06/05/18 06:00 ASSESSMENT/PLAN: ASSESSMENT: 1. Acute on chronic hypoxic and hypercapneic respiratory failure related to acute exacerbation of 2. Chronic obstructive pulmonary disease, resolved 3. Pneumonia, resolved 4. Altered mental status, probably toxic metabolic enchelopathy, resolved 5. CAD coronary artery calcification angina pectoris 6. Diastolic LV dysfunction with chronic class I NYHA classification LV failure , clinically compensated/euvolemic 7. HTN/HCVD 8. Hypercholesterolemia/mixed dyslipidemia 9. Hypothyroidism 10. Right hand hematoma, resolving 11. Pre-renal azotemia 12. Anemia and resolved thrombocytopenia PLAN: 1. Continue Cozaar, hemodynamics permitting 2. Continue ASA 3. Continue Crestor 4. Continue bronchodilators and steroids as per the pulmonary team 5. await transfer to subacute care facility Cary Mancini M.D.
[2018-06-05] MEDS: ALBUTEROL SO4 8 GM HFA INHALER IH PRN (12:42)
[2018-06-05] MEDS: ESCITALOPRAM OXALATE 10 MG TABLET (FP) PO SCH (13:31)
[2018-06-05] MEDS: POLYETHYLENE GLYCOL 3350 119 GM BTL PO SCH ×2 (13:31→22:00)
[2018-06-05] MEDS: ALBUTEROL SO4 0.083% IH SOL 2.5 MG/3 ML VIAL.NEB. NEB PRN (16:26)
[2018-06-05] MEDS: ARFORMOTEROL TARTRATE 15 MCG/2 ML VIAL NEB SCH (19:45)
[2018-06-05] MEDS: ROSUVASTATIN CA 5 MG TABLET (FP) PO SCH (21:59)
[2018-06-05] MEDS: MONTELUKAST NA 10 MG TABLET PO SCH (21:59)
[2018-06-06] MEDS: LEVOTHYROXINE NA 75 MCG TABLET (FP) PO SCH (06:55)
[2018-06-06] MEDS: INSULIN SLIDING SCALE (NOVOLOG) 1 VIAL SQ SCH ×4 (06:55→21:59)
[2018-06-06 07:21] LABS: HEMATOCRIT 30.9 % (32.4-45.2); HEMOGLOBIN 9.7 GM/dL (10.7-15.3); LYMPH % 1.1 % (8-40); MCH 28.9 pg (25.7-33.7); MCHC 31.3 g/dl (32.0-36.0); MEAN CELL VOLUME 92.4 fl (80-96); MEAN PLT VOLUME 8.6 fl (7.5-11.1); MONO % 3.9 % (3.8-10.2); PLATELET COUNT 199 K/MM3 (134-434); RBC 3.34 M/mm3 (3.60-5.2); RDW 14.2 % (11.6-15.6); WHITE BLOOD COUNT 14.3 K/mm3 (4.0-10.0)
[2018-06-06] MEDS: ARFORMOTEROL TARTRATE 15 MCG/2 ML VIAL NEB SCH ×2 (08:00→20:48)
[2018-06-06 08:30] LABS: ALBUMIN 2.6 g/dl (3.4-5.0); ALK PHOS 142 U/L (45-117); BILIRUBIN,TOTAL 0.9 mg/dL (0.2-1); BLOOD UREA NITROGEN 25 mg/dL (7-18); CALCIUM 8.1 mg/dL (8.5-10.1); CHLORIDE 89 mmol/L (98-107); CREATININE 0.5 mg/dL (0.55-1.3); GLUCOSE,RANDOM 132 mg/dL (74-106); POTASSIUM 4.2 mmol/L (3.5-5.1); SGOT/AST 18 U/L (15-37); SGPT/ALT 33 U/L (13-61); SODIUM 141 mmol/L (136-145)
[2018-06-06 08:47] LABS: ANION GAP 4 MMOL/L (8-16); CO2 48 mmol/L (21-32)
--- NOTE | 2018-06-06 09:06 | PN ---
Progress Note, Physician Chief Complaint: stable no new c/o; stable bruises arms and R dorsal hematoma stable used Bipap, not confused, no tremors - Current Medication List Current Medications: Active Medications Acetaminophen (Tylenol -) 650 mg PO Q6H PRN PRN Reason: PAIN 1-7 Last Admin: 05/22/18 22:12 Dose: 650 mg Albuterol Sulfate (Ventolin 0.083% Nebulizer Soln -) 1 amp NEB Q8H PRN PRN Reason: SHORT OF BREATH/WHEEZING Last Admin: 06/05/18 16:26 Dose: 1 amp Albuterol Sulfate (Ventolin Hfa Inhaler -) 1 puff IH Q6H PRN PRN Reason: ASTHMA Last Admin: 06/05/18 12:42 Dose: 1 puff Arformoterol Tartrate (Brovana (Restricted To Pulmonology/Resp) -) 1 amp NEB RBID [facility] Last Admin: 06/05/18 19:45 Dose: 1 amp Aspirin (Asa -) 81 mg PO DAILY [facility] Last Admin: 06/05/18 09:07 Dose: 81 mg Escitalopram Oxalate (Lexapro -) 5 mg PO DAILY [facility] Last Admin: 06/05/18 13:31 Dose: 5 mg Heparin Sodium (Porcine) (Heparin -) 5,000 unit SQ BID [facility] Insulin Aspart (Novolog Vial Sliding Scale -) 1 vial SQ ACHS [facility]; Protocol Last Admin: 06/06/18 06:55 Dose: Not Given Lactobacillus Acidophilus (Bacid -) 1 tab PO DAILY [facility] Last Admin: 06/05/18 09:07 Dose: 1 tab Levothyroxine Sodium (Synthroid -) 75 mcg PO DAILY@0700 [facility] Last Admin: 06/06/18 06:55 Dose: 75 mcg Losartan Potassium (Cozaar -) 25 mg PO DAILY [facility] Last Admin: 06/05/18 09:07 Dose: 25 mg Montelukast Sodium (Singulair -) 10 mg PO HS [facility] Last Admin: 06/05/18 21:59 Dose: 10 mg Pantoprazole Sodium (Protonix -) 20 mg PO DAILY [facility] Last Admin: 06/05/18 09:07 Dose: 20 mg Polyethylene Glycol (Miralax (For Daily Use) -) 17 gm PO BID [facility] Last Admin: 06/05/18 22:00 Dose: 17 gm Prednisone (Deltasone -) 30 mg PO BID [facility] Last Admin: 06/05/18 21:59 Dose: 30 mg Roflumilast (Daliresp -) 500 mcg PO DAILY [facility] Last Admin: 06/05/18 09:07 Dose: 500 mcg Rosuvastatin Calcium (Crestor -) 5 mg PO HS [facility] Last Admin: 06/05/18 21:59 Dose: 5 mg Sodium Chloride ([place] Nasal [place] -) 2 spray NS BID [facility] Last Admin: 06/05/18 22:00 Dose: 2 spray Tiotropium [place] (Spiriva Respimat) 2 puff IH DAILY [facility] Last Admin: 06/05/18 09:08 Dose: 2 puff - Objective Vital Signs: Vital Signs Temperature 98 F 06/06/18 07:00 Pulse Rate 98 H 06/06/18 07:00 Respiratory Rate 22 H 06/06/18 07:00 Blood Pressure 108/63 06/06/18 07:00 O2 Sat by Pulse Oximetry (%) 96 06/06/18 02:29 Constitutional: Yes: No Distress, Calm Eyes: Yes: Conjunctiva Clear HENT: Yes: Atraumatic Neck: Yes: Supple Cardiovascular: Yes: Regular Rate and Rhythm Respiratory: Yes: Rales Gastrointestinal: Yes: Soft. No: Tenderness Genitourinary: No: CVA Tenderness - Left, CVA Tenderness - Right Musculoskeletal: No: Joint Stiffness, Joint Swelling Extremities: No: Cold, Cool Edema: No Integumentary: Yes: Bruising (stable). No: Rash Neurological: Yes: WNL, Alert, Oriented ...Motor Strength: WNL Psychiatric: Yes: WNL, Alert, Oriented. No: Agitated, Suicidal Ideation Labs: CBC, BMP 06/06/18 06:00 06/06/18 06:00 INR, PTT INR 0.97 (0.83-1.09) 05/19/18 16:15 - ....Imaging Other: Report Reviewed Assessment/Plan The patient is a 57F w/ a history of severe advanced COPD O2 dependant and frequent Bipap use, HTN, CAD, hypothyroidism admitted with acute on chronic COPD exacerbation. s/p Fall. Sinusitis, PNA acute on chronic exacerbation of COPD; anemia; hyperK pulmonary f/u; po steroids Bipap to use it as ordered; pulm consult appreciated and d/w pt (also pt's aware) pt might need tracheostomy in the future; antibiotics po per ID anemia and PLT improved; restarted lexapro and heparin and f/u labs miralax prn constipation gastric pfx while on steroids; BGM and GLU control while on steroids R hand hematoma stable labs f/u falls decubs DVT PFX prognosis guarded if stable over weekend will attempt to DC to SNF/NH on thursday for pulm rehab; pt and aware to f/u with PCP dr Navarro and pulm dr Parrish after DC home - to discuss with pulmonary and PCP team about possible eval for lung transplant as outpt. prognosis guarded. d/w pt and pt's all the above d/w staff
[2018-06-06] MEDS ORDERED: PT OWN MED DRAWER 7, Y5N ONE (09:49)
[2018-06-06] MEDS: ASPIRIN 81 MG CHEWABLE TABLETS PO SCH (10:27)
[2018-06-06] MEDS: predniSONE 10 MG TABLET (UD) PO SCH ×2 (10:27→21:58)
[2018-06-06] MEDS: PANTOPRAZOLE 20 MG TABLET (FP) PO SCH (10:27)
[2018-06-06] MEDS: LACTOBACILLUS ACIDOPHILUS 1 TABLET PO SCH (10:27)
[2018-06-06] MEDS: ESCITALOPRAM OXALATE 10 MG TABLET (FP) PO SCH (10:28)
[2018-06-06] MEDS: SODIUM CHLORIDE NASAL SPRAY 44 ML BOTTLE NS SCH ×2 (10:29→21:59)
[2018-06-06] MEDS: LOSARTAN POTASSIUM 25 MG TABLET PO SCH (10:29)
[2018-06-06] MEDS: ROFLUMILAST 500 MCG TABLET PO SCH (10:30)
[2018-06-06] MEDS: HEPARIN NA (PORCINE) 5,000 UNITS/ML 1ML VIAL SQ SCH ×2 (10:30→21:59)
[2018-06-06] MEDS: POLYETHYLENE GLYCOL 3350 119 GM BTL PO SCH ×2 (10:30→21:58)
[2018-06-06] MEDS: ALBUTEROL SO4 8 GM HFA INHALER IH PRN (10:31)
[2018-06-06] MEDS: TIOTROPIUM BROMIDE 2.5 MCG (SPIRIVA) RESPIMAT INHALER IH SCH (10:32)
--- NOTE | 2018-06-06 11:38 | PN ---
Progress Note (short form) - Note Progress Note: Chief Complaint: Events noted, notes reviewed, dyspnea persists but improved, denies any chest pain History of Present Illness: Seen and examined. Events noted, notes reviewed, dyspnea persists but improved, denies any chest pain - Current Medication List Current Medications Acetaminophen (Tylenol -) 650 mg PO Q6H PRN PRN Reason: PAIN 1-7 Last Admin: 05/22/18 22:12 Dose: 650 mg Albuterol Sulfate (Ventolin 0.083% Nebulizer Soln -) 1 amp NEB Q8H PRN PRN Reason: SHORT OF BREATH/WHEEZING Last Admin: 06/05/18 16:26 Dose: 1 amp Albuterol Sulfate (Ventolin Hfa Inhaler -) 1 puff IH Q6H PRN PRN Reason: ASTHMA Last Admin: 06/06/18 10:31 Dose: 1 puff Arformoterol Tartrate (Brovana (Restricted To Pulmonology/Resp) -) 1 amp NEB RBID [facility] Last Admin: 06/06/18 08:00 Dose: 1 amp Aspirin (Asa -) 81 mg PO DAILY [facility] Last Admin: 06/06/18 10:27 Dose: 81 mg Escitalopram Oxalate (Lexapro -) 5 mg PO DAILY [facility] Last Admin: 06/06/18 10:28 Dose: 5 mg Heparin Sodium (Porcine) (Heparin -) 5,000 unit SQ BID [facility] Last Admin: 06/06/18 10:30 Dose: 5,000 unit Insulin Aspart (Novolog Vial Sliding Scale -) 1 vial SQ ACHS [facility]; Protocol Last Admin: 06/06/18 06:55 Dose: Not Given Lactobacillus Acidophilus (Bacid -) 1 tab PO DAILY [facility] Last Admin: 06/06/18 10:27 Dose: 1 tab Levothyroxine Sodium (Synthroid -) 75 mcg PO DAILY@0700 [facility] Last Admin: 06/06/18 06:55 Dose: 75 mcg Losartan Potassium (Cozaar -) 25 mg PO DAILY [facility] Last Admin: 06/06/18 10:29 Dose: 25 mg Montelukast Sodium (Singulair -) 10 mg PO HS [facility] Last Admin: 06/05/18 21:59 Dose: 10 mg Pantoprazole Sodium (Protonix -) 20 mg PO DAILY [facility] Last Admin: 06/06/18 10:27 Dose: 20 mg Polyethylene Glycol (Miralax (For Daily Use) -) 17 gm PO BID [facility] Last Admin: 06/06/18 10:30 Dose: 17 gm Prednisone (Deltasone -) 30 mg PO BID [facility] Last Admin: 06/06/18 10:27 Dose: 30 mg Roflumilast (Daliresp -) 500 mcg PO DAILY [facility] Last Admin: 06/06/18 10:30 Dose: 500 mcg Rosuvastatin Calcium (Crestor -) 5 mg PO HS [facility] Last Admin: 06/05/18 21:59 Dose: 5 mg Sodium Chloride ([place] Nasal [place] -) 2 spray NS BID [facility] Last Admin: 06/06/18 10:29 Dose: 2 spray Tiotropium [place] (Spiriva Respimat) 2 puff IH DAILY [facility] Last Admin: 06/06/18 10:32 Dose: 2 puff - Objective Vital Signs: Last Vital Signs Temp Pulse Resp BP Pulse Ox 98 F 98 H 22 H 108/63 96 06/06/18 07:00 06/06/18 07:00 06/06/18 07:00 06/06/18 07:00 06/06/18 02:29 Intake & Output 06/03/18 06/04/18 06/05/18 06/06/18 23:59 23:59 23:59 23:59 Intake Total 350 850 200 100 Balance 350 850 200 100 Constitutional: No Distress, Anxious Neck: Supple Negative JVD No Bruit Respiratory: Distant Breath Sounds Bilaterally Scattered Rhonchi Cardiovascular: S1 S2 Regular Rate and Rhythm Gastrointestinal: Soft Benign Normal Bowel Sounds Ext: No Edema Labs: CBC, BMP 06/06/18 06:00 06/06/18 06:00 ASSESSMENT/PLAN: ASSESSMENT: 1. Acute on chronic hypoxic and hypercapneic respiratory failure related to acute exacerbation of 2. Chronic obstructive pulmonary disease, resolved 3. Pneumonia, resolved 4. Altered mental status, probably toxic metabolic enchelopathy, resolved 5. CAD coronary artery calcification angina pectoris 6. Diastolic LV dysfunction with chronic class I NYHA classification LV failure , clinically compensated/euvolemic 7. HTN/HCVD 8. Hypercholesterolemia/mixed dyslipidemia 9. Hypothyroidism 10. Right hand hematoma, resolving 11. Pre-renal azotemia 12. Anemia and resolved thrombocytopenia PLAN: 1. Continue Cozaar, hemodynamics permitting 2. Continue ASA 3. Continue Crestor 4. Continue bronchodilators and steroids as per the pulmonary team 5. Await D/C to subacute care facility Cary Mancini M.D.
--- NOTE | 2018-06-06 11:50 | PN ---
Progress Note (short form) - Note Progress Note: Mildly tachypneic at rest, but overall improved. Non-productive cough No CP. Using NIPPV overnight. Intake & Output 06/03/18 06/04/1818 06/06/18 23:59 23:59 23:59 23:59 Intake Total 350 850 200 100 Balance 350 850 200 100 Last Vital Signs Temp Pulse Resp BP Pulse Ox 98 F 98 H 22 H 108/63 96 06/06/18 07:00 06/06/18 07:00 06/06/18 07:00 06/06/18 07:00 06/06/18 02:29 Active Medications Acetaminophen (Tylenol -) 650 mg PO Q6H PRN PRN Reason: PAIN 1-7 Last Admin: 05/22/18 22:12 Dose: 650 mg Albuterol Sulfate (Ventolin 0.083% Nebulizer Soln -) 1 amp NEB Q8H PRN PRN Reason: SHORT OF BREATH/WHEEZING Last Admin: 06/05/18 16:26 Dose: 1 amp Albuterol Sulfate (Ventolin Hfa Inhaler -) 1 puff IH Q6H PRN PRN Reason: ASTHMA Last Admin: 06/06/18 10:31 Dose: 1 puff Arformoterol Tartrate (Brovana (Restricted To Pulmonology/Resp) -) 1 amp NEB RBID [facility] Last Admin: 06/06/18 08:00 Dose: 1 amp Aspirin (Asa -) 81 mg PO DAILY [facility] Last Admin: 06/06/18 10:27 Dose: 81 mg Escitalopram Oxalate (Lexapro -) 5 mg PO DAILY [facility] Last Admin: 06/06/18 10:28 Dose: 5 mg Heparin Sodium (Porcine) (Heparin -) 5,000 unit SQ BID [facility] Last Admin: 06/06/18 10:30 Dose: 5,000 unit Insulin Aspart (Novolog Vial Sliding Scale -) 1 vial SQ ACHS [facility]; Protocol Last Admin: 06/06/18 06:55 Dose: Not Given Lactobacillus Acidophilus (Bacid -) 1 tab PO DAILY [facility] Last Admin: 06/06/18 10:27 Dose: 1 tab Levothyroxine Sodium (Synthroid -) 75 mcg PO DAILY@0700 [facility] Last Admin: 06/06/18 06:55 Dose: 75 mcg Losartan Potassium (Cozaar -) 25 mg PO DAILY [facility] Last Admin: 06/06/18 10:29 Dose: 25 mg Montelukast Sodium (Singulair -) 10 mg PO HS [facility] Last Admin: 06/05/18 21:59 Dose: 10 mg Pantoprazole Sodium (Protonix -) 20 mg PO DAILY [facility] Last Admin: 06/06/18 10:27 Dose: 20 mg Polyethylene Glycol (Miralax (For Daily Use) -) 17 gm PO BID [facility] Last Admin: 06/06/18 10:30 Dose: 17 gm Prednisone (Deltasone -) 30 mg PO BID [facility] Last Admin: 06/06/18 10:27 Dose: 30 mg Roflumilast (Daliresp -) 500 mcg PO DAILY [facility] Last Admin: 06/06/18 10:30 Dose: 500 mcg Rosuvastatin Calcium (Crestor -) 5 mg PO [facility] Last Admin: 06/05/18 21:59 Dose: 5 mg Sodium Chloride ([place] Nasal [place] -) 2 spray NS BID [facility] Last Admin: 06/06/18 10:29 Dose: 2 spray Tiotropium [place] (Spiriva Respimat) 2 puff IH DAILY [facility] Last Admin: 06/06/18 10:32 Dose: 2 puff Constitutional: Yes: Awake and alert, mildly dyspneic at rest Eyes: Yes: WNL HENT: Yes: WNL Neck: Yes: WNL Cardiovascular: Yes: Regular Rate and Rhythm, S1, S2 Respiratory: Yes: diminished throughout, bibasilr rhonchi/crackles, (+) slight expiratory wheeze on the left Gastrointestinal: Yes: WNL Extremities: Yes: right hand ecchymotic Edema: No Labs: Laboratory Results - last 24 hr 06/05/18 06/05/18 06/05/18 11:43 17:09 21:55 WBC RBC Hgb Hct MCV MCH MCHC RDW Plt Count MPV Absolute Neuts (auto) Neutrophils % Lymphocytes % Monocytes % Eosinophils % Basophils % Nucleated RBC % Sodium Potassium Chloride Carbon Dioxide Anion Gap BUN Creatinine Creat Clearance w eGFR POC Glucometer 175 284 225 Random Glucose Calcium Total Bilirubin AST ALT Alkaline Phosphatase Total Protein Albumin 06/06/18 06/06/18 06/06/18 06:00 06:00 06:54 WBC 14.3 H RBC 3.34 L Hgb 9.7 L Hct 30.9 L MCV 92.4 MCH 28.9 MCHC 31.3 L RDW 14.2 Plt Count 199 MPV 8.6 Absolute Neuts (auto) 13.6 H Neutrophils % 95.0 H Lymphocytes % 1.1 L Monocytes % 3.9 Eosinophils % 0.0 Basophils % 0.0 Nucleated RBC % 0 Sodium 141 Potassium 4.2 Chloride 89 L Carbon Dioxide 48 H Anion Gap 4 L BUN 25 H Creatinine 0.5 L Creat Clearance w eGFR > 60 POC Glucometer 141 Random Glucose 132 H Calcium 8.1 L Total Bilirubin 0.9 AST 18 ALT 33 Alkaline Phosphatase 142 H Total Protein 5.0 L Albumin 2.6 L Problem List - Problems (1) Altered mental status Code(s): R41.82 - ALTERED MENTAL STATUS, UNSPECIFIED Qualifiers: Altered mental status type: disorientation Qualified Code(s): R41.0 - Disorientation, unspecified (2) COPD exacerbation Code(s): J44.1 - CHRONIC OBSTRUCTIVE PULMONARY DISEASE W (ACUTE) EXACERBATION (3) Acute on chronic respiratory failure with hypoxia and hypercapnia Code(s): J96.21 - ACUTE AND CHRONIC RESPIRATORY FAILURE WITH HYPOXIA; J96.22 - ACUTE AND CHRONIC RESPIRATORY FAILURE WITH HYPERCAPNIA (4) CHF (congestive heart failure) Code(s): I50.9 - HEART FAILURE, UNSPECIFIED (5) COPD exacerbation Code(s): J44.1 - CHRONIC OBSTRUCTIVE PULMONARY DISEASE W (ACUTE) EXACERBATION (6) Diastolic dysfunction Code(s): I51.9 - HEART DISEASE, UNSPECIFIED (7) Sleep apnea Code(s): G47.30 - SLEEP APNEA, UNSPECIFIED Assessment/Plan IMP ACUTE ON CHRONIC HYPOXEMIC HYPERCAPNEIC RESPIRATORY FAILURE COPD O2 DEPENDENT PNEUMONIA ALTERED MENTAL STATUS CHF HYPOTHYROID NAVDEEP BILATERAL HAP PLAN PREDNISONE INHALED BRONCHODILATORS O2 NIPPV AT NIGHT AND PRN WILL NEED RADIOGRAPHIC FOLLOW UP AFTER DISCHARGE DUE TO ADVANCING COPD, SHE WILL EVENTUALLY NEED A TRACH D/C PLANNING TO REHAB DR IVEY
[2018-06-06 12:24] LABS: ANISOCYTOSIS 2+; MACROCYTOSIS 0; PLATELET ESTIMATE NORMAL; TOXIC GRANULATION 1+
[2018-06-06] MEDS: ALBUTEROL SO4 0.083% IH SOL 2.5 MG/3 ML VIAL.NEB. NEB PRN (16:53)
[2018-06-06] MEDS: ACETAMINOPHEN 325 MG TABLET (FP) PO PRN (17:45)
[2018-06-06] MEDS: MONTELUKAST NA 10 MG TABLET PO SCH (21:58)
[2018-06-06] MEDS: ROSUVASTATIN CA 5 MG TABLET (FP) PO SCH (21:59)
[2018-06-07] MEDS: ACETAMINOPHEN 325 MG TABLET (FP) PO PRN (03:27)
[2018-06-07] MEDS: LEVOTHYROXINE NA 75 MCG TABLET (FP) PO SCH (06:23)
[2018-06-07] MEDS: INSULIN SLIDING SCALE (NOVOLOG) 1 VIAL SQ SCH ×4 (06:23→21:34)
--- NOTE | 2018-06-07 06:33 | PN ---
Progress Note, Physician Chief Complaint: developed some R parotid swelling and pain, also upper lip herpes lesion will get facial CT r/o parotitis and start ATB levaquin. Antivirals (acyclovir po, d/w pharmacy they do not have cream) - Current Medication List Current Medications: Active Medications Acetaminophen (Tylenol -) 650 mg PO Q6H PRN PRN Reason: PAIN 1-7 Last Admin: 06/07/18 03:27 Dose: 650 mg Albuterol Sulfate (Ventolin 0.083% Nebulizer Soln -) 1 amp NEB Q8H PRN PRN Reason: SHORT OF BREATH/WHEEZING Last Admin: 06/06/18 16:53 Dose: 1 amp Albuterol Sulfate (Ventolin Hfa Inhaler -) 1 puff IH Q6H PRN PRN Reason: ASTHMA Last Admin: 06/06/18 10:31 Dose: 1 puff Arformoterol Tartrate (Brovana (Restricted To Pulmonology/Resp) -) 1 amp NEB RBID [facility] Last Admin: 06/06/18 20:48 Dose: 1 amp Aspirin (Asa -) 81 mg PO DAILY [facility] Last Admin: 06/06/18 10:27 Dose: 81 mg Escitalopram Oxalate (Lexapro -) 5 mg PO DAILY [facility] Last Admin: 06/06/18 10:28 Dose: 5 mg Heparin Sodium (Porcine) (Heparin -) 5,000 unit SQ BID [facility] Last Admin: 06/06/18 21:59 Dose: 5,000 unit Insulin Aspart (Novolog Vial Sliding Scale -) 1 vial SQ ACHS [facility]; Protocol Last Admin: 06/07/18 06:23 Dose: 2 units Lactobacillus Acidophilus (Bacid -) 1 tab PO DAILY [facility] Last Admin: 06/06/18 10:27 Dose: 1 tab Levothyroxine Sodium (Synthroid -) 75 mcg PO DAILY@0700 [facility] Last Admin: 06/07/18 06:23 Dose: 75 mcg Losartan Potassium (Cozaar -) 25 mg PO DAILY [facility] Last Admin: 06/06/18 10:29 Dose: 25 mg Montelukast Sodium (Singulair -) 10 mg PO HS [facility] Last Admin: 06/06/18 21:58 Dose: 10 mg Pantoprazole Sodium (Protonix -) 20 mg PO DAILY [facility] Last Admin: 06/06/18 10:27 Dose: 20 mg Polyethylene Glycol (Miralax (For Daily Use) -) 17 gm PO BID [facility] Last Admin: 06/06/18 21:58 Dose: Not Given Prednisone (Deltasone -) 30 mg PO BID [facility] Last Admin: 06/06/18 21:58 Dose: 30 mg Roflumilast (Daliresp -) 500 mcg PO DAILY [facility] Last Admin: 06/06/18 10:30 Dose: 500 mcg Rosuvastatin Calcium (Crestor -) 5 mg PO HS [facility] Last Admin: 06/06/18 21:59 Dose: 5 mg Sodium Chloride ([place] Nasal [place] -) 2 spray NS BID [facility] Last Admin: 06/06/18 21:59 Dose: 2 spray Tiotropium [place] (Spiriva Respimat) 2 puff IH DAILY [facility] Last Admin: 06/06/18 10:32 Dose: 2 puff - Objective Vital Signs: Vital Signs Temperature 98.7 F 06/07/18 06:00 Pulse Rate 81 06/07/18 06:00 Respiratory Rate 18 06/07/18 06:00 Blood Pressure 113/66 06/07/18 06:00 O2 Sat by Pulse Oximetry (%) 96 06/07/18 02:32 Constitutional: Yes: Anxious Eyes: Yes: Conjunctiva Clear HENT: Yes: Atraumatic, Other (R parotitis) Neck: Yes: Supple Cardiovascular: Yes: Regular Rate and Rhythm Respiratory: Yes: Rales Gastrointestinal: Yes: Soft. No: Tenderness Genitourinary: No: Hematuria Musculoskeletal: No: Joint Stiffness, Joint Swelling Extremities: No: Cold, Cool Edema: No Integumentary: Yes: Bruising. No: Rash, Venous Stasis Changes Neurological: Yes: WNL, Alert, Oriented ...Motor Strength: WNL Psychiatric: Yes: WNL, Alert, Oriented. No: Agitated, Suicidal Ideation Labs: CBC, BMP 06/06/18 06:00 06/06/18 06:00 INR, PTT INR 0.97 (0.83-1.09) 05/19/18 16:15 - ....Imaging Other: Report Reviewed Assessment/Plan The patient is a 57F w/ a history of severe advanced COPD O2 dependant and frequent Bipap use, HTN, CAD, hypothyroidism admitted with acute on chronic COPD exacerbation. s/p Fall. Sinusitis, PNA acute on chronic exacerbation of COPD; anemia; pulmonary f/u; po steroids; Bipap to use it as ordered; pulm consult appreciated and d/w pt (also pt's aware) pt might need tracheostomy in the future; antibiotics po levaquin for R parotitis; facial CT ordered acyclovir po for lip herpes anemia and PLT improved; restarted lexapro and heparin and f/u labs miralax prn constipation gastric pfx while on steroids; BGM and GLU control while on steroids R hand hematoma and bruises stable labs f/u falls decubs DVT PFX hold off DC for now given new findings prognosis guarded d/w pt and staff
[2018-06-07] MEDS: ALBUTEROL SO4 0.083% IH SOL 2.5 MG/3 ML VIAL.NEB. NEB PRN (07:09)
[2018-06-07] MEDS: ARFORMOTEROL TARTRATE 15 MCG/2 ML VIAL NEB SCH ×2 (07:25→21:30)
[2018-06-07] MEDS: ESCITALOPRAM OXALATE 10 MG TABLET (FP) PO SCH (09:35)
[2018-06-07] MEDS: ASPIRIN 81 MG CHEWABLE TABLETS PO SCH (09:36)
[2018-06-07] MEDS: LACTOBACILLUS ACIDOPHILUS 1 TABLET PO SCH (09:36)
[2018-06-07] MEDS: HEPARIN NA (PORCINE) 5,000 UNITS/ML 1ML VIAL SQ SCH ×2 (09:36→21:30)
[2018-06-07] MEDS: LOSARTAN POTASSIUM 25 MG TABLET PO SCH (09:36)
[2018-06-07] MEDS: predniSONE 10 MG TABLET (UD) PO SCH ×2 (09:36→21:28)
[2018-06-07] MEDS: PANTOPRAZOLE 20 MG TABLET (FP) PO SCH (09:36)
[2018-06-07] MEDS: SODIUM CHLORIDE NASAL SPRAY 44 ML BOTTLE NS SCH ×2 (09:37→22:50)
[2018-06-07] MEDS: POLYETHYLENE GLYCOL 3350 119 GM BTL PO SCH ×2 (09:37→21:36)
[2018-06-07] MEDS: TIOTROPIUM BROMIDE 2.5 MCG (SPIRIVA) RESPIMAT INHALER IH SCH (09:37)
[2018-06-07] MEDS: ROFLUMILAST 500 MCG TABLET PO SCH (09:48)
--- NOTE | 2018-06-07 11:00 | PN ---
Progress Note, Physician History of Present Illness: Resting comfortably, non-productive cough, wheezing and dyspnea slowly improving. - Current Medication List Current Medications: Active Medications Acetaminophen (Tylenol -) 650 mg PO Q6H PRN PRN Reason: PAIN 1-7 Last Admin: 06/07/18 03:27 Dose: 650 mg Albuterol Sulfate (Ventolin 0.083% Nebulizer Soln -) 1 amp NEB Q8H PRN PRN Reason: SHORT OF BREATH/WHEEZING Last Admin: 06/07/18 07:09 Dose: 1 amp Albuterol Sulfate (Ventolin Hfa Inhaler -) 1 puff IH Q6H PRN PRN Reason: ASTHMA Last Admin: 06/06/18 10:31 Dose: 1 puff Arformoterol Tartrate (Brovana (Restricted To Pulmonology/Resp) -) 1 amp NEB RBID [facility] Last Admin: 06/07/18 07:25 Dose: 1 amp Aspirin (Asa -) 81 mg PO DAILY [facility] Last Admin: 06/07/18 09:36 Dose: 81 mg Escitalopram Oxalate (Lexapro -) 5 mg PO DAILY [facility] Last Admin: 06/07/18 09:35 Dose: 5 mg Heparin Sodium (Porcine) (Heparin -) 5,000 unit SQ BID [facility] Last Admin: 06/07/18 09:36 Dose: 5,000 unit Insulin Aspart (Novolog Vial Sliding Scale -) 1 vial SQ ACHS [facility]; Protocol Last Admin: 06/07/18 10:57 Dose: 2 units Lactobacillus Acidophilus (Bacid -) 1 tab PO DAILY [facility] Last Admin: 06/07/18 09:36 Dose: 1 tab Levothyroxine Sodium (Synthroid -) 75 mcg PO DAILY@0700 [facility] Last Admin: 06/07/18 06:23 Dose: 75 mcg Losartan Potassium (Cozaar -) 25 mg PO DAILY [facility] Last Admin: 06/07/18 09:36 Dose: 25 mg Montelukast Sodium (Singulair -) 10 mg PO HS [facility] Last Admin: 06/06/18 21:58 Dose: 10 mg Pantoprazole Sodium (Protonix -) 20 mg PO DAILY [facility] Last Admin: 06/07/18 09:36 Dose: 20 mg Polyethylene Glycol (Miralax (For Daily Use) -) 17 gm PO BID [facility] Last Admin: 06/07/18 09:37 Dose: 17 gm Prednisone (Deltasone -) 30 mg PO BID [facility] Last Admin: 06/07/18 09:36 Dose: 30 mg Roflumilast (Daliresp -) 500 mcg PO DAILY [facility] Last Admin: 06/07/18 09:48 Dose: 500 mcg Rosuvastatin Calcium (Crestor -) 5 mg PO HS [facility] Last Admin: 06/06/18 21:59 Dose: 5 mg Sodium Chloride ([place] Nasal [place] -) 2 spray NS BID [facility] Last Admin: 06/07/18 09:37 Dose: 2 spray Tiotropium [place] (Spiriva Respimat) 2 puff IH DAILY [facility] Last Admin: 06/07/18 09:37 Dose: 2 puff - Objective Vital Signs: Vital Signs Temperature 98.1 F 06/07/18 10:00 Pulse Rate 90 06/07/18 10:00 Respiratory Rate 18 06/07/18 10:00 Blood Pressure 107/56 L 06/07/18 10:00 O2 Sat by Pulse Oximetry (%) 98 06/07/18 09:00 Constitutional: Yes: No Distress, Calm Neck: Yes: Supple Cardiovascular: Yes: Regular Rate and Rhythm Respiratory: Yes: Regular, Diminished, On Nasal O2 Gastrointestinal: Yes: Soft, Hypoactive Bowel Sounds Edema: No Labs: CBC, BMP 06/06/18 06:00 06/06/18 06:00 INR, PTT INR 0.97 (0.83-1.09) 05/19/18 16:15 Problem List - Problems (1) COPD exacerbation Code(s): J44.1 - CHRONIC OBSTRUCTIVE PULMONARY DISEASE W (ACUTE) EXACERBATION (2) Acute on chronic respiratory failure with hypoxia and hypercapnia Code(s): J96.21 - ACUTE AND CHRONIC RESPIRATORY FAILURE WITH HYPOXIA; J96.22 - ACUTE AND CHRONIC RESPIRATORY FAILURE WITH HYPERCAPNIA (3) Diastolic dysfunction Code(s): I51.9 - HEART DISEASE, UNSPECIFIED (4) Hyperlipidemia Code(s): E78.5 - HYPERLIPIDEMIA, UNSPECIFIED Qualifiers: Hyperlipidemia type: pure hypercholesterolemia Qualified Code(s): E78.00 - Pure hypercholesterolemia, unspecified; E78.0 - Pure hypercholesterolemia (5) Hypertension Code(s): I10 - ESSENTIAL (PRIMARY) HYPERTENSION Qualifiers: Hypertension type: essential hypertension Qualified Code(s): I10 - Essential (primary) hypertension (6) Hypothyroidism Code(s): E03.9 - HYPOTHYROIDISM, UNSPECIFIED Qualifiers: Hypothyroidism type: unspecified Qualified Code(s): E03.9 - Hypothyroidism , unspecified (7) Shortness of breath Code(s): R06.02 - SHORTNESS OF BREATH (8) Sleep apnea Code(s): G47.30 - SLEEP APNEA, UNSPECIFIED Qualifiers: Sleep apnea type: unspecified type Qualified Code(s): G47.30 - Sleep apnea , unspecified Assessment/Plan 1. Acute on chronic hypoxic and hypercapneic respiratory failure 2. Home O2-dependent chronic obstructive pulmonary disease exacerbation 3. Bilateral hospital-acquired pneumonia 4. Post toxic metabolic encephalopathy referable to hypercapnea 5. CAD coronary artery calcification angina pectoris 6. Diastolic LV dysfunction with chronic class I NYHA classification LV failure 7. HTN/HCVD 8. Hypercholesterolemia/mixed dyslipidemia 9. Hypothyroidism 10. Right hand hematoma 11. Anemia 12. OSAS 13. Hyperkalemia PLAN: 1. Losartan 25 mg QD with monitor K and Crestor 5 mg QD as tolerated 2. Consider transfuse to maintain Hgb>8.0 3. Continue ASA 81 mg QD 4. Continue pulmonary treatment. BIPAP nightly and prn, bronchodilator, Singulair, Daliresp and slow oral steroid taper 5. Completed empiric antibiotic course 6. DVT and GI prophylaxis 7. SNF once pulmonary status improves
--- NOTE | 2018-06-07 12:19 | PN ---
Progress Note (short form) - Note Progress Note: Mildly tachypneic at rest, but overall improved. Some non-productive cough No CP. Using NIPPV overnight. Intake & Output 06/04/18 06/05/1818 06/07/18 23:59 23:59 23:59 23:59 Intake Total 850 200 300 250 Balance 850 200 300 250 Last Vital Signs Temp Pulse Resp BP Pulse Ox 98.1 F 90 18 107/56 L 98 06/07/18 10:00 06/07/18 10:00 06/07/18 10:00 06/07/18 10:00 06/07/18 09:00 Active Medications Acetaminophen (Tylenol -) 650 mg PO Q6H PRN PRN Reason: PAIN 1-7 Last Admin: 06/07/18 03:27 Dose: 650 mg Albuterol Sulfate (Ventolin 0.083% Nebulizer Soln -) 1 amp NEB Q8H PRN PRN Reason: SHORT OF BREATH/WHEEZING Last Admin: 06/07/18 07:09 Dose: 1 amp Albuterol Sulfate (Ventolin Hfa Inhaler -) 1 puff IH Q6H PRN PRN Reason: ASTHMA Last Admin: 06/06/18 10:31 Dose: 1 puff Arformoterol Tartrate (Brovana (Restricted To Pulmonology/Resp) -) 1 amp NEB RBID [facility] Last Admin: 06/07/18 07:25 Dose: 1 amp Aspirin (Asa -) 81 mg PO DAILY [facility] Last Admin: 06/07/18 09:36 Dose: 81 mg Escitalopram Oxalate (Lexapro -) 5 mg PO DAILY [facility] Last Admin: 06/07/18 09:35 Dose: 5 mg Heparin Sodium (Porcine) (Heparin -) 5,000 unit SQ BID [facility] Last Admin: 06/07/18 09:36 Dose: 5,000 unit Insulin Aspart (Novolog Vial Sliding Scale -) 1 vial SQ ACHS [facility]; Protocol Last Admin: 06/07/18 10:57 Dose: 2 units Lactobacillus Acidophilus (Bacid -) 1 tab PO DAILY [facility] Last Admin: 06/07/18 09:36 Dose: 1 tab Levothyroxine Sodium (Synthroid -) 75 mcg PO DAILY@0700 [facility] Last Admin: 06/07/18 06:23 Dose: 75 mcg Losartan Potassium (Cozaar -) 25 mg PO DAILY [facility] Last Admin: 06/07/18 09:36 Dose: 25 mg Montelukast Sodium (Singulair -) 10 mg PO HS [facility] Last Admin: 06/06/18 21:58 Dose: 10 mg Pantoprazole Sodium (Protonix -) 20 mg PO DAILY [facility] Last Admin: 06/07/18 09:36 Dose: 20 mg Polyethylene Glycol (Miralax (For Daily Use) -) 17 gm PO BID [facility] Last Admin: 06/07/18 09:37 Dose: 17 gm Prednisone (Deltasone -) 30 mg PO BID [facility] Last Admin: 06/07/18 09:36 Dose: 30 mg Roflumilast (Daliresp -) 500 mcg PO DAILY [facility] Last Admin: 06/07/18 09:48 Dose: 500 mcg Rosuvastatin Calcium (Crestor -) 5 mg PO HS [facility] Last Admin: 06/06/18 21:59 Dose: 5 mg Sodium Chloride ([place] Nasal [place] -) 2 spray NS BID [facility] Last Admin: 06/07/18 09:37 Dose: 2 spray Tiotropium [place] (Spiriva Respimat) 2 puff IH DAILY [facility] Last Admin: 06/07/18 09:37 Dose: 2 puff Constitutional: Yes: Awake and alert, mildly dyspneic at rest Eyes: Yes: WNL HENT: Yes: WNL Neck: Yes: WNL Cardiovascular: Yes: Regular Rate and Rhythm, S1, S2 Respiratory: Yes: diminished throughout, bibasilr rhonchi/crackles, No wheeze Gastrointestinal: Yes: WNL Extremities: Yes: less right hand ecchymotic Edema: No Labs: Laboratory Results - last 24 hr 06/03/18 06/06/18 06/06/18 10:26 06:00 12:18 Neutrophils % (Manual) 81.0 Band Neutrophils % 8.0 Lymphocytes % (Manual) 0.0 L Monocytes % (Manual) 7 D Eosinophils % (Manual) 0.0 Basophils % (Manual) 0.0 Myelocytes % (Man) 0 D Promyelocytes % (Man) 0 Blast Cells % (Manual) 0 Metamyelocytes 0 D Hypochromia 0 Toxic Granulation 1+ Platelet Estimate Normal Platelet Comment Present Polychromasia 2+ Poikilocytosis 0 Basophilic Stippling 1+ Anisocytosis 2+ Microcytosis 2+ Macrocytosis 0 POC Glucometer 172 Blood Type O NEGATIVE Antibody Screen Negative Crossmatch See Detail 06/06/18 06/06/18 06/07/18 16:24 21:56 06:22 Neutrophils % (Manual) Band Neutrophils % Lymphocytes % (Manual) Monocytes % (Manual) Eosinophils % (Manual) Basophils % (Manual) Myelocytes % (Man) Promyelocytes % (Man) Blast Cells % (Manual) Metamyelocytes Hypochromia Toxic Granulation Platelet Estimate Platelet Comment Polychromasia Poikilocytosis Basophilic Stippling Anisocytosis Microcytosis Macrocytosis POC Glucometer 288 172 171 Blood Type Antibody Screen Crossmatch 06/07/18 10:56 Neutrophils % (Manual) Band Neutrophils % Lymphocytes % (Manual) Monocytes % (Manual) Eosinophils % (Manual) Basophils % (Manual) Myelocytes % (Man) Promyelocytes % (Man) Blast Cells % (Manual) Metamyelocytes Hypochromia Toxic Granulation Platelet Estimate Platelet Comment Polychromasia Poikilocytosis Basophilic Stippling Anisocytosis Microcytosis Macrocytosis POC Glucometer 163 Blood Type Antibody Screen Crossmatch Problem List - Problems (1) Altered mental status Code(s): R41.82 - ALTERED MENTAL STATUS, UNSPECIFIED Qualifiers: Altered mental status type: disorientation Qualified Code(s): R41.0 - Disorientation, unspecified (2) COPD exacerbation Code(s): J44.1 - CHRONIC OBSTRUCTIVE PULMONARY DISEASE W (ACUTE) EXACERBATION (3) Acute on chronic respiratory failure with hypoxia and hypercapnia Code(s): J96.21 - ACUTE AND CHRONIC RESPIRATORY FAILURE WITH HYPOXIA; J96.22 - ACUTE AND CHRONIC RESPIRATORY FAILURE WITH HYPERCAPNIA (4) CHF (congestive heart failure) Code(s): I50.9 - HEART FAILURE, UNSPECIFIED (5) COPD exacerbation Code(s): J44.1 - CHRONIC OBSTRUCTIVE PULMONARY DISEASE W (ACUTE) EXACERBATION (6) Diastolic dysfunction Code(s): I51.9 - HEART DISEASE, UNSPECIFIED (7) Sleep apnea Code(s): G47.30 - SLEEP APNEA, UNSPECIFIED Assessment/Plan IMP ACUTE ON CHRONIC HYPOXEMIC HYPERCAPNEIC RESPIRATORY FAILURE COPD O2 DEPENDENT PNEUMONIA ALTERED MENTAL STATUS CHF HYPOTHYROID NAVDEEP BILATERAL HAP PLAN PREDNISONE INHALED BRONCHODILATORS O2 NIPPV AT NIGHT AND PRN WILL NEED RADIOGRAPHIC FOLLOW UP AFTER DISCHARGE DUE TO ADVANCING COPD, SHE WILL EVENTUALLY NEED A TRACH D/C PLANNING TO REHAB DR IVEY
[2018-06-07] MEDS: ROSUVASTATIN CA 5 MG TABLET (FP) PO SCH (21:29)
[2018-06-07] MEDS: MONTELUKAST NA 10 MG TABLET PO SCH (21:29)
[2018-06-07] MEDS: ACYCLOVIR 400 MG TABLET PO SCH (23:34)
[2018-06-08] MEDS: ALBUTEROL SO4 0.083% IH SOL 2.5 MG/3 ML VIAL.NEB. NEB PRN ×2 (06:15→12:17)
[2018-06-08] MEDS: LEVOTHYROXINE NA 75 MCG TABLET (FP) PO SCH (06:42)
[2018-06-08] MEDS: INSULIN SLIDING SCALE (NOVOLOG) 1 VIAL SQ SCH ×4 (06:42→21:45)
[2018-06-08] MEDS ORDERED: INSULIN (NOVOLOG) ASPART 100 UNITS/ML 10ML VIAL ONE (07:02)
[2018-06-08] MEDS ORDERED: INSULIN (LEVEMIR) 100 UNITS/ML UNITS SQ ONE (07:02)
[2018-06-08] MEDS: ARFORMOTEROL TARTRATE 15 MCG/2 ML VIAL NEB SCH ×2 (07:44→19:02)
[2018-06-08] MEDS ORDERED: PT OWN MED DRAWER 7, Y5N ONE ×2 (09:04→21:37)
[2018-06-08] MEDS: ESCITALOPRAM OXALATE 10 MG TABLET (FP) PO SCH (09:19)
[2018-06-08] MEDS: ASPIRIN 81 MG CHEWABLE TABLETS PO SCH (09:19)
[2018-06-08] MEDS: predniSONE 10 MG TABLET (UD) PO SCH ×2 (09:19→21:34)
[2018-06-08] MEDS: LACTOBACILLUS ACIDOPHILUS 1 TABLET PO SCH (09:19)
[2018-06-08] MEDS: ROFLUMILAST 500 MCG TABLET PO SCH (09:20)
[2018-06-08] MEDS: PANTOPRAZOLE 20 MG TABLET (FP) PO SCH (09:20)
[2018-06-08] MEDS: HEPARIN NA (PORCINE) 5,000 UNITS/ML 1ML VIAL SQ SCH (09:20)
[2018-06-08] MEDS: ACYCLOVIR 400 MG TABLET PO SCH ×2 (09:21→21:40)
[2018-06-08] MEDS: SODIUM CHLORIDE NASAL SPRAY 44 ML BOTTLE NS SCH ×2 (09:22→21:38)
[2018-06-08] MEDS: TIOTROPIUM BROMIDE 2.5 MCG (SPIRIVA) RESPIMAT INHALER IH SCH (09:22)
[2018-06-08] MEDS: LOSARTAN POTASSIUM 25 MG TABLET PO SCH (09:29)
--- NOTE | 2018-06-08 09:46 | PN ---
Progress Note (short form) - Note Progress Note: Breathing feels OK. Suspected right Parotid swelling (?) CT is pending Used NIPPV overnight. Intake & Output 06/05/18 06/06/18 06/07/18 06/08/18 23:59 23:59 23:59 23:59 Intake Total 200 300 400 Balance 200 300 400 Last Vital Signs Temp Pulse Resp BP Pulse Ox 98.2 F 79 20 128/60 98 06/08/18 05:54 06/08/18 05:54 06/08/18 05:54 06/08/18 05:54 06/07/18 09:00 Laboratory Results - last 24 hr 06/07/18 06/07/18 06/07/18 10:56 16:53 21:33 POC Glucometer 163 163 253 06/08/18 06:41 POC Glucometer 128 Constitutional: Yes: Awake and alert, mildly dyspneic at rest Eyes: Yes: right conjunctival hemorrhage HENT: Yes: WNL Neck: Yes: WNL Cardiovascular: Yes: Regular Rate and Rhythm, S1, S2 Respiratory: Yes: diminished throughout, bibasilr rhonchi/crackles, No wheeze Gastrointestinal: Yes: WNL Extremities: Yes: less right hand ecchymotic Edema: No Labs: Laboratory Results - last 24 hr 06/07/18 06/07/18 06/07/18 10:56 16:53 21:33 POC Glucometer 163 163 253 06/08/18 06:41 POC Glucometer 128 Problem List - Problems (1) Altered mental status Code(s): R41.82 - ALTERED MENTAL STATUS, UNSPECIFIED Qualifiers: Altered mental status type: disorientation Qualified Code(s): R41.0 - Disorientation, unspecified (2) COPD exacerbation Code(s): J44.1 - CHRONIC OBSTRUCTIVE PULMONARY DISEASE W (ACUTE) EXACERBATION (3) Acute on chronic respiratory failure with hypoxia and hypercapnia Code(s): J96.21 - ACUTE AND CHRONIC RESPIRATORY FAILURE WITH HYPOXIA; J96.22 - ACUTE AND CHRONIC RESPIRATORY FAILURE WITH HYPERCAPNIA (4) CHF (congestive heart failure) Code(s): I50.9 - HEART FAILURE, UNSPECIFIED (5) COPD exacerbation Code(s): J44.1 - CHRONIC OBSTRUCTIVE PULMONARY DISEASE W (ACUTE) EXACERBATION (6) Diastolic dysfunction Code(s): I51.9 - HEART DISEASE, UNSPECIFIED (7) Sleep apnea Code(s): G47.30 - SLEEP APNEA, UNSPECIFIED Assessment/Plan IMP ACUTE ON CHRONIC HYPOXEMIC HYPERCAPNEIC RESPIRATORY FAILURE COPD O2 DEPENDENT PNEUMONIA ALTERED MENTAL STATUS CHF HYPOTHYROID NAVDEEP BILATERAL HAP PLAN CT PENDING PREDNISONE INHALED BRONCHODILATORS O2 NIPPV AT NIGHT AND PRN WILL NEED RADIOGRAPHIC FOLLOW UP AFTER DISCHARGE DUE TO ADVANCING COPD, SHE WILL EVENTUALLY NEED A TRACH D/C PLANNING TO REHAB DR IVEY
[2018-06-08] MEDS: POLYETHYLENE GLYCOL 3350 119 GM BTL PO SCH ×2 (12:35→21:46)
--- NOTE | 2018-06-08 13:12 | PN ---
Progress Note, Physician Chief Complaint: Events noted conjunctiva red - right eye History of Present Illness: Patient was seen and examined. Chart was reviewed Denies chest pain or palpitations Tolerating therapy. - Current Medication List Current Medications: Active Medications Acetaminophen (Tylenol -) 650 mg PO Q6H PRN PRN Reason: PAIN 1-7 Last Admin: 06/07/18 03:27 Dose: 650 mg Acyclovir (Zovirax -) 400 mg PO BID [facility] Last Admin: 06/08/18 09:21 Dose: 400 mg Albuterol Sulfate (Ventolin 0.083% Nebulizer Soln -) 1 amp NEB Q8H PRN PRN Reason: SHORT OF BREATH/WHEEZING Last Admin: 06/08/18 12:17 Dose: 1 amp Albuterol Sulfate (Ventolin Hfa Inhaler -) 1 puff IH Q6H PRN PRN Reason: ASTHMA Last Admin: 06/06/18 10:31 Dose: 1 puff Arformoterol Tartrate (Brovana (Restricted To Pulmonology/Resp) -) 1 amp NEB RBID [facility] Last Admin: 06/08/18 07:44 Dose: 1 amp Aspirin (Asa -) 81 mg PO DAILY [facility] Last Admin: 06/08/18 09:19 Dose: 81 mg Escitalopram Oxalate (Lexapro -) 5 mg PO DAILY [facility] Last Admin: 06/08/18 09:19 Dose: 5 mg Insulin Aspart (Novolog Vial Sliding Scale -) 1 vial SQ ACHS [facility]; Protocol Last Admin: 06/08/18 12:34 Dose: 6 units Lactobacillus Acidophilus (Bacid -) 1 tab PO DAILY [facility] Last Admin: 06/08/18 09:19 Dose: 1 tab Levofloxacin (Levaquin -) 500 mg PO DAILY [facility] Last Admin: 06/08/18 09:19 Dose: 500 mg Levothyroxine Sodium (Synthroid -) 75 mcg PO DAILY@0700 [facility] Last Admin: 06/08/18 06:42 Dose: 75 mcg Losartan Potassium (Cozaar -) 25 mg PO DAILY [facility] Last Admin: 06/08/18 09:29 Dose: Not Given Montelukast Sodium (Singulair -) 10 mg PO HS [facility] Last Admin: 06/07/18 21:29 Dose: 10 mg Pantoprazole Sodium (Protonix -) 20 mg PO DAILY [facility] Last Admin: 06/08/18 09:20 Dose: 20 mg Polyethylene Glycol (Miralax (For Daily Use) -) 17 gm PO BID [facility] Last Admin: 06/08/18 12:35 Dose: 17 gm Prednisone (Deltasone -) 30 mg PO BID [facility] Last Admin: 06/08/18 09:19 Dose: 30 mg Roflumilast (Daliresp -) 500 mcg PO DAILY [facility] Last Admin: 06/08/18 09:20 Dose: 500 mcg Rosuvastatin Calcium (Crestor -) 5 mg PO HS [facility] Last Admin: 06/07/18 21:29 Dose: 5 mg Sodium Chloride ([place] Nasal [place] -) 2 spray NS BID [facility] Last Admin: 06/08/18 09:22 Dose: Not Given Tiotropium [place] (Spiriva Respimat) 2 puff IH DAILY [facility] Last Admin: 06/08/18 09:22 Dose: 2 puff - Objective Vital Signs: Vital Signs Temperature 99 F 06/08/18 10:00 Pulse Rate 102 H 06/08/18 10:00 Respiratory Rate 20 06/08/18 10:00 Blood Pressure 105/53 L 06/08/18 10:00 O2 Sat by Pulse Oximetry (%) 97 06/08/18 12:16 HENT: Yes: Atraumatic Neck: Yes: Supple Cardiovascular: Yes: Regular Rate and Rhythm, S1, S2 Respiratory: Yes: Diminished Gastrointestinal: Yes: Normal Bowel Sounds, Soft. No: Tenderness Edema: No Problem List - Problems (1) Altered mental status Code(s): R41.82 - ALTERED MENTAL STATUS, UNSPECIFIED Qualifiers: Altered mental status type: disorientation Qualified Code(s): R41.0 - Disorientation, unspecified (2) COPD exacerbation Code(s): J44.1 - CHRONIC OBSTRUCTIVE PULMONARY DISEASE W (ACUTE) EXACERBATION (3) Acute and chronic respiratory failure with hypoxia Code(s): J96.21 - ACUTE AND CHRONIC RESPIRATORY FAILURE WITH HYPOXIA (4) Acute diastolic (congestive) heart failure Code(s): I50.31 - ACUTE DIASTOLIC (CONGESTIVE) HEART FAILURE (5) Acute on chronic respiratory failure with hypoxia and hypercapnia Code(s): J96.21 - ACUTE AND CHRONIC RESPIRATORY FAILURE WITH HYPOXIA; J96.22 - ACUTE AND CHRONIC RESPIRATORY FAILURE WITH HYPERCAPNIA (6) Diastolic dysfunction Code(s): I51.9 - HEART DISEASE, UNSPECIFIED (7) Hyperlipidemia Code(s): E78.5 - HYPERLIPIDEMIA, UNSPECIFIED Qualifiers: Hyperlipidemia type: pure hypercholesterolemia Qualified Code(s): E78.00 - Pure hypercholesterolemia, unspecified; E78.0 - Pure hypercholesterolemia (8) Hypertension Code(s): I10 - ESSENTIAL (PRIMARY) HYPERTENSION Qualifiers: Hypertension type: essential hypertension Qualified Code(s): I10 - Essential (primary) hypertension (9) Hypothyroidism Code(s): E03.9 - HYPOTHYROIDISM, UNSPECIFIED Qualifiers: Hypothyroidism type: unspecified Qualified Code(s): E03.9 - Hypothyroidism , unspecified (10) Pneumonia Code(s): J18.9 - PNEUMONIA, UNSPECIFIED ORGANISM (11) Shortness of breath Code(s): R06.02 - SHORTNESS OF BREATH (12) Sleep apnea Code(s): G47.30 - SLEEP APNEA, UNSPECIFIED Qualifiers: Sleep apnea type: unspecified type Qualified Code(s): G47.30 - Sleep apnea , unspecified Assessment/Plan 1. Acute on chronic hypoxic and hypercapneic respiratory failure 2. Home O2-dependent chronic obstructive pulmonary disease exacerbation 3. Bilateral hospital-acquired pneumonia 4. Post toxic metabolic encephalopathy referable to hypercapnea 5. CAD coronary artery calcification angina pectoris 6. Diastolic LV dysfunction with chronic class I NYHA classification LV failure 7. HTN/HCVD 8. Hypercholesterolemia/mixed dyslipidemia 9. Hypothyroidism 10. Right hand hematoma 11. Anemia 12. OSAS 13. Hyperkalemia PLAN: 1. Losartan 25 mg QD and Crestor 5 mg QD as tolerated 2. Consider transfusing as needed 3. May hold ASA for short period 4. Pulmonary treatment 5. DVT and GI prophylaxis 6. SNF once pulmonary status improves Wilson Gill MD
--- NOTE | 2018-06-08 15:39 | PN ---
Progress Note, Physician Chief Complaint: breathing stable but developed R parotitis R eye blood vessel that broke and has small conjunctival hematoma; sq heparin held; also UE bruises - to d/w cardio if possible to hold ASA; started on po levaquin, is on po antibiotics called ENT - Current Medication List Current Medications: Active Medications Acetaminophen (Tylenol -) 650 mg PO Q6H PRN PRN Reason: PAIN 1-7 Last Admin: 06/07/18 03:27 Dose: 650 mg Acyclovir (Zovirax -) 400 mg PO BID [facility] Last Admin: 06/08/18 09:21 Dose: 400 mg Albuterol Sulfate (Ventolin 0.083% Nebulizer Soln -) 1 amp NEB Q8H PRN PRN Reason: SHORT OF BREATH/WHEEZING Last Admin: 06/08/18 12:17 Dose: 1 amp Albuterol Sulfate (Ventolin Hfa Inhaler -) 1 puff IH Q6H PRN PRN Reason: ASTHMA Last Admin: 06/06/18 10:31 Dose: 1 puff Arformoterol Tartrate (Brovana (Restricted To Pulmonology/Resp) -) 1 amp NEB RBID [facility] Last Admin: 06/08/18 07:44 Dose: 1 amp Aspirin (Asa -) 81 mg PO DAILY [facility] Last Admin: 06/08/18 09:19 Dose: 81 mg Escitalopram Oxalate (Lexapro -) 5 mg PO DAILY [facility] Last Admin: 06/08/18 09:19 Dose: 5 mg Insulin Aspart (Novolog Vial Sliding Scale -) 1 vial SQ ACHS [facility]; Protocol Last Admin: 06/08/18 12:34 Dose: 6 units Lactobacillus Acidophilus (Bacid -) 1 tab PO DAILY [facility] Last Admin: 06/08/18 09:19 Dose: 1 tab Levofloxacin (Levaquin -) 500 mg PO DAILY [facility] Last Admin: 06/08/18 09:19 Dose: 500 mg Levothyroxine Sodium (Synthroid -) 75 mcg PO DAILY@0700 [facility] Last Admin: 06/08/18 06:42 Dose: 75 mcg Losartan Potassium (Cozaar -) 25 mg PO DAILY [facility] Last Admin: 06/08/18 09:29 Dose: Not Given Montelukast Sodium (Singulair -) 10 mg PO HS [facility] Last Admin: 06/07/18 21:29 Dose: 10 mg Pantoprazole Sodium (Protonix -) 20 mg PO DAILY [facility] Last Admin: 06/08/18 09:20 Dose: 20 mg Polyethylene Glycol (Miralax (For Daily Use) -) 17 gm PO BID [facility] Last Admin: 06/08/18 12:35 Dose: 17 gm Prednisone (Deltasone -) 30 mg PO BID [facility] Last Admin: 06/08/18 09:19 Dose: 30 mg Roflumilast (Daliresp -) 500 mcg PO DAILY [facility] Last Admin: 06/08/18 09:20 Dose: 500 mcg Rosuvastatin Calcium (Crestor -) 5 mg PO HS [facility] Last Admin: 06/07/18 21:29 Dose: 5 mg Sodium Chloride ([place] Nasal [place] -) 2 spray NS BID [facility] Last Admin: 06/08/18 09:22 Dose: Not Given Tiotropium [place] (Spiriva Respimat) 2 puff IH DAILY [facility] Last Admin: 06/08/18 09:22 Dose: 2 puff - Objective Vital Signs: Vital Signs Temperature 98.8 F 06/08/18 14:12 Pulse Rate 94 H 06/08/18 14:12 Respiratory Rate 20 06/08/18 14:12 Blood Pressure 103/59 L 06/08/18 14:12 O2 Sat by Pulse Oximetry (%) 97 06/08/18 12:16 Constitutional: Yes: No Distress, Calm Eyes: Yes: Conjunctiva Clear HENT: Yes: Atraumatic Neck: Yes: Supple Cardiovascular: Yes: Regular Rate and Rhythm Respiratory: Yes: Rales Gastrointestinal: Yes: Soft. No: Distention Genitourinary: No: CVA Tenderness - Left, CVA Tenderness - Right, Hematuria Musculoskeletal: No: Joint Stiffness, Joint Swelling Extremities: No: Cold, Cool, Cyanosis Edema: No Integumentary: Yes: Bruising. No: Rash, Venous Stasis Changes Neurological: Yes: WNL, Alert, Oriented. No: Tremors ...Motor Strength: WNL Psychiatric: Yes: WNL, Alert, Oriented. No: Agitated, Suicidal Ideation Labs: CBC, BMP 06/06/18 06:00 06/06/18 06:00 INR, PTT INR 0.97 (0.83-1.09) 05/19/18 16:15 - ....Imaging Other: Report Reviewed Assessment/Plan The patient is a 57F w/ a history of severe advanced COPD O2 dependant and frequent Bipap use, HTN, CAD, hypothyroidism admitted with acute on chronic COPD exacerbation. s/p Fall. Sinusitis, PNA acute on chronic exacerbation of COPD; anemia; pulmonary f/u; po steroids; Bipap to use it as ordered; pulm consult appreciated and d/w pt (also pt's aware) pt might need tracheostomy in the future; antibiotics po levaquin for R parotitis;ENT reconsult ordered acyclovir po for lip herpes anemia and PLT improved;\ miralax prn constipation gastric pfx while on steroids; BGM and GLU control while on steroids R hand hematoma and bruises and R eye conjunctival small medial hematoma - hold sq heparin, can hold ASA? to d/w cardiology. labs f/u falls decubs DVT PFX hold off DC to NH for now given new findings prognosis guarded d/w pt and staff
[2018-06-08] MEDS: MONTELUKAST NA 10 MG TABLET PO SCH (21:34)
[2018-06-08] MEDS: ROSUVASTATIN CA 5 MG TABLET (FP) PO SCH (21:34)
[2018-06-09] MEDS: LEVOTHYROXINE NA 75 MCG TABLET (FP) PO SCH (06:26)
[2018-06-09] MEDS: INSULIN SLIDING SCALE (NOVOLOG) 1 VIAL SQ SCH ×4 (06:26→22:04)
--- NOTE | 2018-06-09 06:56 | PN ---
Progress Note, Physician Chief Complaint: s.p R parotitis on po ATB levaquin and po prednisone, R parotid gland less swollen today and less painful breathing stable uses NIPPV intermittently, d/w pt to use it during the day and during the night every few hours otherwise she could develop respiratory failure and need to be intubated, trached or even risk of ; she is aware and she understands and said she will use it more bruises and R hand hematoma slightly more tense off sq heparin on baby ASA dw cardiology OK to DC ASA dr Perales - d.w pt risks of DVT/PE/AK/CVA while holding heparin sq and ASA po but given spread bruising and hematomas do not have better choice at this point Pt is doing PT rehab at bedside, will order TEDs and SCDs falls PFX d/w pt do not get OOB alone - Current Medication List Current Medications: Active Medications Acetaminophen (Tylenol -) 650 mg PO Q6H PRN PRN Reason: PAIN 1-7 Last Admin: 06/07/18 03:27 Dose: 650 mg Acyclovir (Zovirax -) 400 mg PO BID [facility] Last Admin: 06/08/18 21:40 Dose: 400 mg Albuterol Sulfate (Ventolin 0.083% Nebulizer Soln -) 1 amp NEB Q8H PRN PRN Reason: SHORT OF BREATH/WHEEZING Last Admin: 06/08/18 12:17 Dose: 1 amp Albuterol Sulfate (Ventolin Hfa Inhaler -) 1 puff IH Q6H PRN PRN Reason: ASTHMA Last Admin: 06/06/18 10:31 Dose: 1 puff Arformoterol Tartrate (Brovana (Restricted To Pulmonology/Resp) -) 1 amp NEB RBID [facility] Last Admin: 06/08/18 19:02 Dose: 1 amp Aspirin (Asa -) 81 mg PO DAILY [facility] Last Admin: 06/08/18 09:19 Dose: 81 mg Escitalopram Oxalate (Lexapro -) 5 mg PO DAILY [facility] Last Admin: 06/08/18 09:19 Dose: 5 mg Insulin Aspart (Novolog Vial Sliding Scale -) 1 vial SQ ACHS [facility]; Protocol Last Admin: 06/09/18 06:26 Dose: 2 units Lactobacillus Acidophilus (Bacid -) 1 tab PO DAILY [facility] Last Admin: 06/08/18 09:19 Dose: 1 tab Levofloxacin (Levaquin -) 500 mg PO DAILY [facility] Last Admin: 06/08/18 09:19 Dose: 500 mg Levothyroxine Sodium (Synthroid -) 75 mcg PO DAILY@0700 [facility] Last Admin: 06/09/18 06:26 Dose: 75 mcg Losartan Potassium (Cozaar -) 25 mg PO DAILY [facility] Last Admin: 06/08/18 09:29 Dose: Not Given Montelukast Sodium (Singulair -) 10 mg PO [facility] Last Admin: 06/08/18 21:34 Dose: 10 mg Pantoprazole Sodium (Protonix -) 20 mg PO DAILY [facility] Last Admin: 06/08/18 09:20 Dose: 20 mg Polyethylene Glycol (Miralax (For Daily Use) -) 17 gm PO BID [facility] Last Admin: 06/08/18 21:46 Dose: Not Given Prednisone (Deltasone -) 30 mg PO BID [facility] Last Admin: 06/08/18 21:34 Dose: 30 mg Roflumilast (Daliresp -) 500 mcg PO DAILY [facility] Last Admin: 06/08/18 09:20 Dose: 500 mcg Rosuvastatin Calcium (Crestor -) 5 mg PO [facility] Last Admin: 06/08/18 21:34 Dose: 5 mg Sodium Chloride ([place] Nasal [place] -) 2 spray NS BID [facility] Last Admin: 06/08/18 21:38 Dose: 2 spray Tiotropium [place] (Spiriva Respimat) 2 puff IH DAILY [facility] Last Admin: 06/08/18 09:22 Dose: 2 puff - Objective Vital Signs: Vital Signs Temperature 98.4 F 06/09/18 06:00 Pulse Rate 77 06/09/18 06:00 Respiratory Rate 20 06/09/18 06:00 Blood Pressure 114/60 06/09/18 06:00 O2 Sat by Pulse Oximetry (%) 97 06/09/18 01:56 Constitutional: Yes: No Distress, Calm Eyes: Yes: Conjunctiva Clear HENT: Yes: Atraumatic Neck: Yes: Supple Cardiovascular: Yes: Regular Rate and Rhythm Respiratory: Yes: Rales Gastrointestinal: Yes: Soft. No: Distention Genitourinary: No: CVA Tenderness - Left, CVA Tenderness - Right Musculoskeletal: No: Joint Stiffness, Joint Swelling Extremities: No: Cold, Cool, Cyanosis Edema: No Integumentary: Yes: Bruising (more spread than before on arms, chest - slighlty expanding). No: Rash, Venous Stasis Changes Neurological: Yes: WNL, Alert, Oriented. No: Confusion, Tremors ...Motor Strength: WNL Psychiatric: Yes: WNL, Alert, Oriented. No: Agitated, Suicidal Ideation Labs: CBC, BMP 06/06/18 06:00 06/06/18 06:00 INR, PTT INR 0.97 (0.83-1.09) 05/19/18 16:15 - ....Imaging Other: Report Reviewed Assessment/Plan The patient is a 57F w/ a history of severe advanced COPD O2 dependant and frequent Bipap use, HTN, CAD, hypothyroidism admitted with acute on chronic COPD exacerbation. s/p Fall. Sinusitis, PNA acute on chronic exacerbation of COPD; anemia; pulmonary f/u; po steroids; Bipap to use it as ordered; antibiotics po levaquin for R parotitis;ENT reconsult ordered acyclovir po for lip herpes miralax prn constipation gastric pfx while on steroids; BGM and GLU control while on steroids R hand hematoma and bruises and R eye conjunctival small medial hematoma - hold sq heparin, can hold ASA - ok to hold it d/w cardiology. labs f/u falls decubs DVT PFX hold off DC to NH for now given new findings prognosis guarded d/w pt and staff
[2018-06-09] MEDS: ARFORMOTEROL TARTRATE 15 MCG/2 ML VIAL NEB SCH ×2 (08:34→20:43)
[2018-06-09] MEDS ORDERED: PT OWN MED DRAWER 7, Y5N ONE ×3 (08:56→22:27)
[2018-06-09] MEDS: predniSONE 10 MG TABLET (UD) PO SCH ×2 (09:09→22:00)
[2018-06-09] MEDS: ESCITALOPRAM OXALATE 10 MG TABLET (FP) PO SCH (09:10)
[2018-06-09] MEDS: PANTOPRAZOLE 20 MG TABLET (FP) PO SCH (09:10)
[2018-06-09] MEDS: LACTOBACILLUS ACIDOPHILUS 1 TABLET PO SCH (09:10)
[2018-06-09] MEDS: TIOTROPIUM BROMIDE 2.5 MCG (SPIRIVA) RESPIMAT INHALER IH SCH (09:12)
[2018-06-09] MEDS: POLYETHYLENE GLYCOL 3350 119 GM BTL PO SCH ×2 (09:12→21:52)
[2018-06-09] MEDS: SODIUM CHLORIDE NASAL SPRAY 44 ML BOTTLE NS SCH ×2 (09:12→22:01)
--- NOTE | 2018-06-09 10:27 | PN ---
Progress Note, Physician History of Present Illness: Resting comfortably, non-productive cough, wheezing and dyspnea slowly improving. - Current Medication List Current Medications: Active Medications Acetaminophen (Tylenol -) 650 mg PO Q6H PRN PRN Reason: PAIN 1-7 Last Admin: 06/07/18 03:27 Dose: 650 mg Acyclovir (Zovirax -) 400 mg PO BID [facility] Last Admin: 06/08/18 21:40 Dose: 400 mg Albuterol Sulfate (Ventolin 0.083% Nebulizer Soln -) 1 amp NEB Q8H PRN PRN Reason: SHORT OF BREATH/WHEEZING Last Admin: 06/08/18 12:17 Dose: 1 amp Albuterol Sulfate (Ventolin Hfa Inhaler -) 1 puff IH Q6H PRN PRN Reason: ASTHMA Last Admin: 06/06/18 10:31 Dose: 1 puff Arformoterol Tartrate (Brovana (Restricted To Pulmonology/Resp) -) 1 amp NEB RBID [facility] Last Admin: 06/09/18 08:34 Dose: 1 amp Aspirin (Asa -) 81 mg PO DAILY [facility] Last Admin: 06/08/18 09:19 Dose: 81 mg Escitalopram Oxalate (Lexapro -) 5 mg PO DAILY [facility] Last Admin: 06/09/18 09:10 Dose: 5 mg Insulin Aspart (Novolog Vial Sliding Scale -) 1 vial SQ ACHS [facility]; Protocol Last Admin: 06/09/18 06:26 Dose: 2 units Lactobacillus Acidophilus (Bacid -) 1 tab PO DAILY [facility] Last Admin: 06/09/18 09:10 Dose: 1 tab Levofloxacin (Levaquin -) 500 mg PO DAILY [facility] Last Admin: 06/09/18 09:10 Dose: 500 mg Levothyroxine Sodium (Synthroid -) 75 mcg PO DAILY@0700 [facility] Last Admin: 06/09/18 06:26 Dose: 75 mcg Losartan Potassium (Cozaar -) 25 mg PO DAILY [facility] Last Admin: 06/08/18 09:29 Dose: Not Given Montelukast Sodium (Singulair -) 10 mg PO HS [facility] Last Admin: 06/08/18 21:34 Dose: 10 mg Pantoprazole Sodium (Protonix -) 20 mg PO DAILY [facility] Last Admin: 06/09/18 09:10 Dose: 20 mg Polyethylene Glycol (Miralax (For Daily Use) -) 17 gm PO BID [facility] Last Admin: 06/09/18 09:12 Dose: Not Given Prednisone (Deltasone -) 30 mg PO BID [facility] Last Admin: 06/09/18 09:09 Dose: 30 mg Roflumilast (Daliresp -) 500 mcg PO DAILY [facility] Last Admin: 06/08/18 09:20 Dose: 500 mcg Rosuvastatin Calcium (Crestor -) 5 mg PO HS [facility] Last Admin: 06/08/18 21:34 Dose: 5 mg Sodium Chloride ([place] Nasal [place] -) 2 spray NS BID [facility] Last Admin: 06/09/18 09:12 Dose: Not Given Tiotropium [place] (Spiriva Respimat) 2 puff IH DAILY [facility] Last Admin: 06/09/18 09:12 Dose: 2 puff - Objective Vital Signs: Vital Signs Temperature 98.4 F 06/09/18 06:00 Pulse Rate 77 06/09/18 06:00 Respiratory Rate 20 06/09/18 06:00 Blood Pressure 114/60 06/09/18 06:00 O2 Sat by Pulse Oximetry (%) 99 06/09/18 08:34 Constitutional: Yes: No Distress, Calm Neck: Yes: Supple Cardiovascular: Yes: Regular Rate and Rhythm Respiratory: Yes: Regular, Diminished, On Nasal O2 Gastrointestinal: Yes: Normal Bowel Sounds, Soft Edema: No Labs: CBC, BMP 06/06/18 06:00 06/06/18 06:00 INR, PTT INR 0.97 (0.83-1.09) 05/19/18 16:15 - ....Imaging Chest X-ray: Report Reviewed (Improved left base aeration) Problem List - Problems (1) COPD exacerbation Code(s): J44.1 - CHRONIC OBSTRUCTIVE PULMONARY DISEASE W (ACUTE) EXACERBATION (2) Acute on chronic respiratory failure with hypoxia and hypercapnia Code(s): J96.21 - ACUTE AND CHRONIC RESPIRATORY FAILURE WITH HYPOXIA; J96.22 - ACUTE AND CHRONIC RESPIRATORY FAILURE WITH HYPERCAPNIA (3) Diastolic dysfunction Code(s): I51.9 - HEART DISEASE, UNSPECIFIED (4) Hyperlipidemia Code(s): E78.5 - HYPERLIPIDEMIA, UNSPECIFIED Qualifiers: Hyperlipidemia type: pure hypercholesterolemia Qualified Code(s): E78.00 - Pure hypercholesterolemia, unspecified; E78.0 - Pure hypercholesterolemia (5) Hypertension Code(s): I10 - ESSENTIAL (PRIMARY) HYPERTENSION Qualifiers: Hypertension type: essential hypertension Qualified Code(s): I10 - Essential (primary) hypertension (6) Hypothyroidism Code(s): E03.9 - HYPOTHYROIDISM, UNSPECIFIED Qualifiers: Hypothyroidism type: unspecified Qualified Code(s): E03.9 - Hypothyroidism , unspecified (7) Shortness of breath Code(s): R06.02 - SHORTNESS OF BREATH (8) Sleep apnea Code(s): G47.30 - SLEEP APNEA, UNSPECIFIED Qualifiers: Sleep apnea type: unspecified type Qualified Code(s): G47.30 - Sleep apnea , unspecified Assessment/Plan 1. Acute on chronic hypoxic and hypercapneic respiratory failure 2. Home O2-dependent chronic obstructive pulmonary disease exacerbation 3. Bilateral hospital-acquired pneumonia 4. Post toxic metabolic encephalopathy referable to hypercapnea 5. CAD coronary artery calcification angina pectoris 6. Diastolic LV dysfunction with chronic class I NYHA classification LV failure 7. HTN/HCVD 8. Hypercholesterolemia/mixed dyslipidemia 9. Hypothyroidism 10. Right hand hematoma 11. Anemia 12. OSAS PLAN: 1. ASA 81 qd, Losartan 25 mg QD and Crestor 5 mg QD as tolerated 2. Oral steroid taper, BD, O2, Singulair, Daliresp, NIPPV AT NIGHT AND PRN, empiric levaquin course 3. DVT and GI prophylaxis 4. SNF once pulmonary status improves
[2018-06-09] MEDS: ASPIRIN 81 MG CHEWABLE TABLETS PO SCH (11:17)
[2018-06-09] MEDS: LOSARTAN POTASSIUM 25 MG TABLET PO SCH (11:28)
[2018-06-09] MEDS: ACETAMINOPHEN 325 MG TABLET (FP) PO PRN ×2 (11:31→22:00)
[2018-06-09] MEDS: ACYCLOVIR 400 MG TABLET PO SCH ×2 (11:32→22:05)
[2018-06-09] MEDS: ROFLUMILAST 500 MCG TABLET PO SCH (11:32)
[2018-06-09] MEDS: ALBUTEROL SO4 0.083% IH SOL 2.5 MG/3 ML VIAL.NEB. NEB PRN ×3 (11:41→18:33)
--- NOTE | 2018-06-09 14:50 | PN ---
Progress Note, Physician History of Present Illness: PULMONARY ALERT,ON NASAL CANNULA COMFORTABLE,LESS DYSPNEIC - Current Medication List Current Medications: Active Medications Acetaminophen (Tylenol -) 650 mg PO Q6H PRN PRN Reason: PAIN 1-7 Last Admin: 06/09/18 11:31 Dose: 650 mg Acyclovir (Zovirax -) 400 mg PO BID [facility] Last Admin: 06/09/18 11:32 Dose: 400 mg Albuterol Sulfate (Ventolin 0.083% Nebulizer Soln -) 1 amp NEB Q8H PRN PRN Reason: SHORT OF BREATH/WHEEZING Last Admin: 06/09/18 11:41 Dose: 1 amp Albuterol Sulfate (Ventolin Hfa Inhaler -) 1 puff IH Q6H PRN PRN Reason: ASTHMA Last Admin: 06/06/18 10:31 Dose: 1 puff Arformoterol Tartrate (Brovana (Restricted To Pulmonology/Resp) -) 1 amp NEB RBID [facility] Last Admin: 06/09/18 08:34 Dose: 1 amp Escitalopram Oxalate (Lexapro -) 5 mg PO DAILY [facility] Last Admin: 06/09/18 09:10 Dose: 5 mg Insulin Aspart (Novolog Vial Sliding Scale -) 1 vial SQ ACHS [facility]; Protocol Last Admin: 06/09/18 12:20 Dose: 2 units Lactobacillus Acidophilus (Bacid -) 1 tab PO DAILY [facility] Last Admin: 06/09/18 09:10 Dose: 1 tab Levofloxacin (Levaquin -) 500 mg PO DAILY [facility] Last Admin: 06/09/18 09:10 Dose: 500 mg Levothyroxine Sodium (Synthroid -) 75 mcg PO DAILY@0700 [facility] Last Admin: 06/09/18 06:26 Dose: 75 mcg Losartan Potassium (Cozaar -) 25 mg PO DAILY [facility] Last Admin: 06/09/18 11:28 Dose: 25 mg Montelukast Sodium (Singulair -) 10 mg PO HS [facility] Last Admin: 06/08/18 21:34 Dose: 10 mg Pantoprazole Sodium (Protonix -) 20 mg PO DAILY [facility] Last Admin: 06/09/18 09:10 Dose: 20 mg Polyethylene Glycol (Miralax (For Daily Use) -) 17 gm PO BID [facility] Last Admin: 06/09/18 09:12 Dose: Not Given Prednisone (Deltasone -) 30 mg PO BID [facility] Last Admin: 06/09/18 09:09 Dose: 30 mg Roflumilast (Daliresp -) 500 mcg PO DAILY [facility] Last Admin: 06/09/18 11:32 Dose: 500 mcg Rosuvastatin Calcium (Crestor -) 5 mg PO HS [facility] Last Admin: 06/08/18 21:34 Dose: 5 mg Sodium Chloride ([place] Nasal [place] -) 2 spray NS BID [facility] Last Admin: 06/09/18 09:12 Dose: Not Given Tiotropium [place] (Spiriva Respimat) 2 puff IH DAILY [facility] Last Admin: 06/09/18 09:12 Dose: 2 puff - Objective Vital Signs: Vital Signs Temperature 98.4 F 06/09/18 06:00 Pulse Rate 82 06/09/18 10:00 Respiratory Rate 20 06/09/18 10:00 Blood Pressure 108/56 L 06/09/18 10:00 O2 Sat by Pulse Oximetry (%) 99 06/09/18 09:00 Constitutional: Yes: Well Nourished, Calm Eyes: Yes: WNL HENT: Yes: WNL, Other (R PAROTID SWELLING) Neck: Yes: WNL Cardiovascular: Yes: Regular Rate and Rhythm, S1, S2 Respiratory: Yes: Diminished, Wheezes (FEW WHEEZES) Gastrointestinal: Yes: Normal Bowel Sounds, Soft Extremities: Yes: WNL Edema: No Labs: CBC, BMP 06/06/18 06:00 06/06/18 06:00 INR, PTT INR 0.97 (0.83-1.09) 05/19/18 16:15 Problem List - Problems (1) Altered mental status Code(s): R41.82 - ALTERED MENTAL STATUS, UNSPECIFIED Qualifiers: Altered mental status type: disorientation Qualified Code(s): R41.0 - Disorientation, unspecified (2) COPD exacerbation Code(s): J44.1 - CHRONIC OBSTRUCTIVE PULMONARY DISEASE W (ACUTE) EXACERBATION (3) Acute on chronic respiratory failure with hypoxia and hypercapnia Code(s): J96.21 - ACUTE AND CHRONIC RESPIRATORY FAILURE WITH HYPOXIA; J96.22 - ACUTE AND CHRONIC RESPIRATORY FAILURE WITH HYPERCAPNIA (4) CHF (congestive heart failure) Code(s): I50.9 - HEART FAILURE, UNSPECIFIED (5) COPD exacerbation Code(s): J44.1 - CHRONIC OBSTRUCTIVE PULMONARY DISEASE W (ACUTE) EXACERBATION (6) Diastolic dysfunction Code(s): I51.9 - HEART DISEASE, UNSPECIFIED (7) Sleep apnea Code(s): G47.30 - SLEEP APNEA, UNSPECIFIED Qualifiers: Sleep apnea type: unspecified type Qualified Code(s): G47.30 - Sleep apnea , unspecified Assessment/Plan IMP ACUTE ON CHRONIC HYPOXEMIC HYPERCAPNEIC RESPIRATORY FAILURE COPD O2 DEPENDENT PNEUMONIA ALTERED MENTAL STATUS CHF HYPOTHYROID NAVDEEP R PAROTID SWELLING PLAN PREDNISONE INHALED BRONCHODILATORS O2 BIPAP AT NIGHT AND PRN ENT EVAL Problem List - Problems (1) Altered mental status Code(s): R41.82 - ALTERED MENTAL STATUS, UNSPECIFIED Qualifiers: Altered mental status type: disorientation Qualified Code(s): R41.0 - Disorientation, unspecified (2) COPD exacerbation Code(s): J44.1 - CHRONIC OBSTRUCTIVE PULMONARY DISEASE W (ACUTE) EXACERBATION (3) Acute on chronic respiratory failure with hypoxia and hypercapnia Code(s): J96.21 - ACUTE AND CHRONIC RESPIRATORY FAILURE WITH HYPOXIA; J96.22 - ACUTE AND CHRONIC RESPIRATORY FAILURE WITH HYPERCAPNIA (4) CHF (congestive heart failure) Code(s): I50.9 - HEART FAILURE, UNSPECIFIED (5) COPD exacerbation Code(s): J44.1 - CHRONIC OBSTRUCTIVE PULMONARY DISEASE W (ACUTE) EXACERBATION (6) Diastolic dysfunction Code(s): I51.9 - HEART DISEASE, UNSPECIFIED (7) Sleep apnea Code(s): G47.30 - SLEEP APNEA, UNSPECIFIED
[2018-06-09] MEDS: ROSUVASTATIN CA 5 MG TABLET (FP) PO SCH (22:00)
[2018-06-09] MEDS: MONTELUKAST NA 10 MG TABLET PO SCH (22:01)
[2018-06-09] MEDS ORDERED: INSULIN (NOVOLOG) ASPART 100 UNITS/ML 10ML VIAL ONE (22:03)
[2018-06-10] MEDS: ALBUTEROL SO4 0.083% IH SOL 2.5 MG/3 ML VIAL.NEB. NEB PRN ×2 (05:15→13:56)
[2018-06-10] MEDS: LEVOTHYROXINE NA 75 MCG TABLET (FP) PO SCH (06:39)
[2018-06-10] MEDS: INSULIN SLIDING SCALE (NOVOLOG) 1 VIAL SQ SCH ×4 (06:43→21:23)
[2018-06-10 07:36] LABS: BASO % 0.1 % (0-2.0); HEMATOCRIT 27.3 % (32.4-45.2); HEMOGLOBIN 8.9 GM/dL (10.7-15.3); LYMPH % 1.2 % (8-40); MCH 30.2 pg (25.7-33.7); MCHC 32.7 g/dl (32.0-36.0); MEAN CELL VOLUME 92.3 fl (80-96); MEAN PLT VOLUME 8.6 fl (7.5-11.1); NEUT % 94.7 % (42.8-82.8); PLATELET COUNT 156 K/MM3 (134-434); RBC 2.96 M/mm3 (3.60-5.2); RDW 13.9 % (11.6-15.6); WHITE BLOOD COUNT 9.3 K/mm3 (4.0-10.0)
--- NOTE | 2018-06-10 08:17 | PN ---
Progress Note (short form) - Note Progress Note: ENT pt developed right facial pain and swelling, suspected parotid sialadenitis right side on antibiotics, has improved, this morning, less swellling, no tenderness, able to eat soft solid foods c/o congestion PE NAD Cushingoid facies eyes sl erythema right eye (recent subconjunctival hemorrhage) ears canals clear, hearing grossly normal nose: nasal cannulae, endoscopy: septum intact with slight deviation, ifeiror turbinates slightly swollen, ++thick light yellow secretions with crusting right greater than left, middle turbinates edematous, middle meati , superior meati and superior turbinates not visualized, sphenoethmoid recesses: not visualized right, thick secretions left oral cavity+ healing ulcerations upper lip and ventral tongue tip oroopharynx clear, voice clear, no stridor or respiratory distress neck: parotid glands normal texture, nontender, no nodule full neck, other salivary glands and thyroid glands unremarkable, no discrete mass CT scan of facial bones reviewed ++right parotid swelling c/w sialadenitis, no nodule right anterior ethmoid cell opacification; bilateral sphenoid sinus air fluid levels right mastoid air cells opacified Impression: right parotid sialadenitis, improved continue present management pt counseled on parotid gland massage acute sphenoid sinusitis continue antibiotics continue nasal saline spray humidify oxygen Keshawn Wakefield MD FACS Problem List - Problems (1) Nasal congestion Code(s): R09.81 - NASAL CONGESTION (2) Sleep apnea Code(s): G47.30 - SLEEP APNEA, UNSPECIFIED Qualifiers: Sleep apnea type: unspecified type Qualified Code(s): G47.30 - Sleep apnea , unspecified
[2018-06-10] MEDS: ARFORMOTEROL TARTRATE 15 MCG/2 ML VIAL NEB SCH ×2 (08:40→19:53)
[2018-06-10 08:55] LABS: ANION GAP 8 MMOL/L (8-16); BLOOD UREA NITROGEN 22 mg/dL (7-18); CALCIUM 7.9 mg/dL (8.5-10.1); CHLORIDE 91 mmol/L (98-107); CO2 39 mmol/L (21-32); CREATININE 0.4 mg/dL (0.55-1.3); GLUCOSE,RANDOM 179 mg/dL (74-106); SODIUM 138 mmol/L (136-145)
--- NOTE | 2018-06-10 09:21 | PN ---
Progress Note (short form) - Note Progress Note: Neurology History of Present Illness 57F w/ a history of COPD (2L NC at home), HTN, CAD, hypothyroidism who presents from [facility] for evaluation of increasing respiratory distress and associated confusion/lethargy. The patient was recently admitted for a COPD exacerbation. According to notes the family reported when the patient is having an exacerbation, it is typical for her to become confused. She was admitted and Pulmonary following closely. Patient experienced fall last night, hospitalist note reviewed, with head pain. CT head completed and without acute changes. Neurologically without focal deficits. Getting ongoing medical mgmt. Is able to tell me she's at [place], mental status appears at baseline. Allergies/Adverse Reactions: Allergies Allergy/AdvReac Type Severity Reaction Status Date / Time Penicillins Allergy Severe Difficulty Verified 05/19/18 16:04 Breathing Active Medications Acetaminophen (Tylenol -) 650 mg PO Q6H PRN PRN Reason: PAIN 1-7 Last Admin: 06/09/18 22:00 Dose: 650 mg Acyclovir (Zovirax -) 400 mg PO BID [facility] Last Admin: 06/09/18 22:05 Dose: 400 mg Albuterol Sulfate (Ventolin 0.083% Nebulizer Soln -) 1 amp NEB Q8H PRN PRN Reason: SHORT OF BREATH/WHEEZING Last Admin: 06/10/18 05:15 Dose: 1 amp Albuterol Sulfate (Ventolin Hfa Inhaler -) 1 puff IH Q6H PRN PRN Reason: ASTHMA Last Admin: 06/06/18 10:31 Dose: 1 puff Arformoterol Tartrate (Brovana (Restricted To Pulmonology/Resp) -) 1 amp NEB RBID [facility] Last Admin: 06/10/18 08:40 Dose: 1 amp Escitalopram Oxalate (Lexapro -) 5 mg PO DAILY [facility] Last Admin: 06/09/18 09:10 Dose: 5 mg Insulin Aspart (Novolog Vial Sliding Scale -) 1 vial SQ ACHS [facility]; Protocol Last Admin: 06/10/18 06:43 Dose: 2 units Lactobacillus Acidophilus (Bacid -) 1 tab PO DAILY [facility] Last Admin: 06/09/18 09:10 Dose: 1 tab Levofloxacin (Levaquin -) 500 mg PO DAILY [facility] Last Admin: 06/09/18 09:10 Dose: 500 mg Levothyroxine Sodium (Synthroid -) 75 mcg PO DAILY@0700 [facility] Last Admin: 06/10/18 06:39 Dose: 75 mcg Losartan Potassium (Cozaar -) 25 mg PO DAILY [facility] Last Admin: 06/09/18 11:28 Dose: 25 mg Montelukast Sodium (Singulair -) 10 mg PO HS [facility] Last Admin: 06/09/18 22:01 Dose: 10 mg Pantoprazole Sodium (Protonix -) 20 mg PO DAILY [facility] Last Admin: 06/09/18 09:10 Dose: 20 mg Polyethylene Glycol (Miralax (For Daily Use) -) 17 gm PO BID [facility] Last Admin: 06/09/18 21:52 Dose: Not Given Prednisone (Deltasone -) 30 mg PO BID [facility] Last Admin: 06/09/18 22:00 Dose: 30 mg Roflumilast (Daliresp -) 500 mcg PO DAILY [facility] Last Admin: 06/09/18 11:32 Dose: 500 mcg Rosuvastatin Calcium (Crestor -) 5 mg PO HS [facility] Last Admin: 06/09/18 22:00 Dose: 5 mg Sodium Chloride ([place] Nasal [place] -) 2 spray NS BID [facility] Last Admin: 06/09/18 22:01 Dose: 2 spray Tiotropium [place] (Spiriva Respimat) 2 puff IH DAILY [facility] Last Admin: 06/09/18 09:12 Dose: 2 puff *Physical Exam Vital Signs Period Temp Pulse Resp BP Sys/Domínguez Pulse Ox Last 24 Hr 98.2 F-98.6 F 82-91 20-22 95-110/48-56 GENERAL: Awake, easily arousable to voice, oriented to self, not telling me location, month, or year HEAD: No signs of trauma, normocephalic, atraumatic EYES: PERRLA, EOMI ENT: Hearing grossly normal, nares patent, oropharynx clear without exudates. Moist mucosa LUNGS: on 4LNC (2LNC at home); moderate diffuse wheeze b/l HEART: Tachycardia with regular rhythm, normal S1 and S2, no murmurs appreciated , peripheral pulses normal and equal bilaterally ABDOMEN: Soft, nontender, normoactive bowel sounds. No guarding, no rebound EXTREMITIES : 2+ BLE edema to knee; RUE hand and forearm hematoma, Normal range of motion NEUROLOGICAL: Cranial nerves II through XII grossly intact. no focal sensorimotor deficits, finger to nose normal, gait deferred CBCD WBC 9.3 K/mm3 (4.0-10.0) 06/10/18 06:30 RBC 2.96 M/mm3 (3.60-5.2) L 06/10/18 06:30 Hgb 8.9 GM/dL (10.7-15.3) L 06/10/18 06:30 Hct 27.3 % (32.4-45.2) L 06/10/18 06:30 MCV 92.3 fl (80-96) 06/10/18 06:30 MCHC 32.7 g/dl (32.0-36.0) 06/10/18 06:30 RDW 13.9 % (11.6-15.6) 06/10/18 06:30 Plt Count 156 K/MM3 (134-434) D 06/10/18 06:30 MPV 8.6 fl (7.5-11.1) 06/10/18 06:30 CMP Sodium 138 mmol/L (136-145) 06/10/18 06:30 Potassium 4.0 mmol/L (3.5-5.1) 06/10/18 06:30 Chloride 91 mmol/L (98-107) L 06/10/18 06:30 Carbon Dioxide 39 mmol/L (21-32) H 06/10/18 06:30 Anion Gap 8 MMOL/L (8-16) 06/10/18 06:30 BUN 22 mg/dL (7-18) H 06/10/18 06:30 Creatinine 0.4 mg/dL (0.55-1.3) L 06/10/18 06:30 Creat Clearance w eGFR > 60 (>60) 06/10/18 06:30 Random Glucose 179 mg/dL (74-106) H 06/10/18 06:30 Calcium 7.9 mg/dL (8.5-10.1) L 06/10/18 06:30 Total Bilirubin 0.9 mg/dL (0.2-1) 06/06/18 06:00 AST 18 U/L (15-37) 06/06/18 06:00 ALT 33 U/L (13-61) 06/06/18 06:00 Alkaline Phosphatase 142 U/L (45-117) H 06/06/18 06:00 Total Protein 5.0 g/dl (6.4-8.2) L 06/06/18 06:00 Albumin 2.6 g/dl (3.4-5.0) L 06/06/18 06:00 CARDIAC ENZYMES Creatine Kinase 23 IU/L (26-192) L 05/24/18 19:35 Troponin I 0.05 ng/ml (0.00-0.05) 05/25/18 05:30 Medical Decision Making 57F w/ a history of COPD (2L NC at home), HTN, CAD, hypothyroidism who presents from [facility] for evaluation of increasing respiratory distress and associated confusion/lethargy. The patient was recently admitted for a COPD exacerbation. According to notes the family reported when the patient is having an exacerbation, it is typical for her to become confused. She was admitted and Pulmonary following closely. Repeat CT head completed and without acute changes. ENT note reviewed. Is alert and interactive now, neurologically stable. Likely AMS, Toxic metabolic encephalopathy 2/2 respiratory distress, continue optimization of COPD. Increased hydration, monitor BP, maintain normotensive range. Fall precautions, physical therapy as tolerated, increased activity as able to avoid deconditioning. Will benefit from outpatient rehab. Mental status at baseline, dispo planning as per case mgmt.
[2018-06-10] MEDS ORDERED: PT OWN MED DRAWER 7, Y5N ONE ×2 (10:17→20:38)
[2018-06-10] MEDS: predniSONE 10 MG TABLET (UD) PO SCH ×2 (10:19→21:19)
[2018-06-10] MEDS: PANTOPRAZOLE 20 MG TABLET (FP) PO SCH (10:20)
[2018-06-10] MEDS: ROFLUMILAST 500 MCG TABLET PO SCH (10:21)
[2018-06-10] MEDS: LACTOBACILLUS ACIDOPHILUS 1 TABLET PO SCH (10:21)
[2018-06-10] MEDS: SODIUM CHLORIDE NASAL SPRAY 44 ML BOTTLE NS SCH ×2 (10:21→21:20)
[2018-06-10] MEDS: ESCITALOPRAM OXALATE 10 MG TABLET (FP) PO SCH (10:21)
[2018-06-10] MEDS: POLYETHYLENE GLYCOL 3350 119 GM BTL PO SCH ×2 (10:21→21:20)
[2018-06-10] MEDS: LOSARTAN POTASSIUM 25 MG TABLET PO SCH (10:21)
[2018-06-10] MEDS: ACYCLOVIR 400 MG TABLET PO SCH ×2 (10:24→21:23)
[2018-06-10] MEDS: TIOTROPIUM BROMIDE 2.5 MCG (SPIRIVA) RESPIMAT INHALER IH SCH (10:25)
--- NOTE | 2018-06-10 11:15 | PN ---
Progress Note, Physician History of Present Illness: Resting comfortably, non-productive cough, wheezing and dyspnea slowly improving. Right facial swelling improving. - Current Medication List Current Medications: Active Medications Acetaminophen (Tylenol -) 650 mg PO Q6H PRN PRN Reason: PAIN 1-7 Last Admin: 06/09/18 22:00 Dose: 650 mg Acyclovir (Zovirax -) 400 mg PO BID [facility] Last Admin: 06/10/18 10:24 Dose: 400 mg Albuterol Sulfate (Ventolin 0.083% Nebulizer Soln -) 1 amp NEB Q8H PRN PRN Reason: SHORT OF BREATH/WHEEZING Last Admin: 06/10/18 05:15 Dose: 1 amp Albuterol Sulfate (Ventolin Hfa Inhaler -) 1 puff IH Q6H PRN PRN Reason: ASTHMA Last Admin: 06/06/18 10:31 Dose: 1 puff Arformoterol Tartrate (Brovana (Restricted To Pulmonology/Resp) -) 1 amp NEB RBID [facility] Last Admin: 06/10/18 08:40 Dose: 1 amp Escitalopram Oxalate (Lexapro -) 5 mg PO DAILY [facility] Last Admin: 06/10/18 10:21 Dose: 5 mg Insulin Aspart (Novolog Vial Sliding Scale -) 1 vial SQ ACHS [facility]; Protocol Last Admin: 06/10/18 06:43 Dose: 2 units Lactobacillus Acidophilus (Bacid -) 1 tab PO DAILY [facility] Last Admin: 06/10/18 10:21 Dose: 1 tab Levofloxacin (Levaquin -) 500 mg PO DAILY [facility] Last Admin: 06/10/18 10:20 Dose: 500 mg Levothyroxine Sodium (Synthroid -) 75 mcg PO DAILY@0700 [facility] Last Admin: 06/10/18 06:39 Dose: 75 mcg Losartan Potassium (Cozaar -) 25 mg PO DAILY [facility] Last Admin: 06/10/18 10:21 Dose: 25 mg Montelukast Sodium (Singulair -) 10 mg PO HS [facility] Last Admin: 06/09/18 22:01 Dose: 10 mg Pantoprazole Sodium (Protonix -) 20 mg PO DAILY [facility] Last Admin: 06/10/18 10:20 Dose: 20 mg Polyethylene Glycol (Miralax (For Daily Use) -) 17 gm PO BID [facility] Last Admin: 06/10/18 10:21 Dose: Not Given Prednisone (Deltasone -) 30 mg PO BID [facility] Last Admin: 06/10/18 10:19 Dose: 30 mg Roflumilast (Daliresp -) 500 mcg PO DAILY [facility] Last Admin: 06/10/18 10:21 Dose: 500 mcg Rosuvastatin Calcium (Crestor -) 5 mg PO HS [facility] Last Admin: 06/09/18 22:00 Dose: 5 mg Sodium Chloride ([place] Nasal [place] -) 2 spray NS BID [facility] Last Admin: 06/10/18 10:21 Dose: Not Given Tiotropium [place] (Spiriva Respimat) 2 puff IH DAILY [facility] Last Admin: 06/10/18 10:25 Dose: 2 puff - Objective Vital Signs: Vital Signs Temperature 98 F 06/10/18 10:00 Pulse Rate 83 06/10/18 10:00 Respiratory Rate 18 06/10/18 10:00 Blood Pressure 113/61 06/10/18 10:00 O2 Sat by Pulse Oximetry (%) 99 06/09/18 09:00 Constitutional: Yes: No Distress, Calm Neck: Yes: Supple Cardiovascular: Yes: Regular Rate and Rhythm Respiratory: Yes: Regular, Diminished, On Nasal O2 Gastrointestinal: Yes: Normal Bowel Sounds, Soft, Abdomen, Obese Edema: No Labs: CBC, BMP 06/10/18 06:30 06/10/18 06:30 INR, PTT INR 0.97 (0.83-1.09) 05/19/18 16:15 Problem List - Problems (1) COPD exacerbation Code(s): J44.1 - CHRONIC OBSTRUCTIVE PULMONARY DISEASE W (ACUTE) EXACERBATION (2) Acute on chronic respiratory failure with hypoxia and hypercapnia Code(s): J96.21 - ACUTE AND CHRONIC RESPIRATORY FAILURE WITH HYPOXIA; J96.22 - ACUTE AND CHRONIC RESPIRATORY FAILURE WITH HYPERCAPNIA (3) Diastolic dysfunction Code(s): I51.9 - HEART DISEASE, UNSPECIFIED (4) Hyperlipidemia Code(s): E78.5 - HYPERLIPIDEMIA, UNSPECIFIED Qualifiers: Hyperlipidemia type: pure hypercholesterolemia Qualified Code(s): E78.00 - Pure hypercholesterolemia, unspecified; E78.0 - Pure hypercholesterolemia (5) Hypertension Code(s): I10 - ESSENTIAL (PRIMARY) HYPERTENSION Qualifiers: Hypertension type: essential hypertension Qualified Code(s): I10 - Essential (primary) hypertension (6) Hypothyroidism Code(s): E03.9 - HYPOTHYROIDISM, UNSPECIFIED Qualifiers: Hypothyroidism type: unspecified Qualified Code(s): E03.9 - Hypothyroidism , unspecified (7) Shortness of breath Code(s): R06.02 - SHORTNESS OF BREATH (8) Sleep apnea Code(s): G47.30 - SLEEP APNEA, UNSPECIFIED Qualifiers: Sleep apnea type: unspecified type Qualified Code(s): G47.30 - Sleep apnea , unspecified (9) Sialadenitis Code(s): K11.20 - SIALOADENITIS, UNSPECIFIED Assessment/Plan CT scan of facial bones reviewed ++right parotid swelling c/w sialadenitis, no nodule right anterior ethmoid cell opacification; bilateral sphenoid sinus air fluid levels right mastoid air cells opacified 1. Acute on chronic hypoxic and hypercapneic respiratory failure 2. Home O2-dependent chronic obstructive pulmonary disease exacerbation 3. Bilateral hospital-acquired pneumonia 4. Post toxic metabolic encephalopathy referable to hypercapnea 5. CAD coronary artery calcification angina pectoris 6. Diastolic LV dysfunction with chronic class I NYHA classification LV failure 7. HTN/HCVD 8. Hypercholesterolemia/mixed dyslipidemia 9. Hypothyroidism 10. Right hand hematoma 11. Anemia 12. OSAS 13. Right parotid sialadenitis PLAN: 1. ASA 81 qd, Losartan 25 mg QD and Crestor 5 mg QD as tolerated 2. Oral steroid taper, BD, O2, Singulair, Daliresp, NIPPV AT NIGHT AND PRN, empiric levaquin course 3. DVT and GI prophylaxis 4. SNF once pulmonary status improves
[2018-06-10 11:32] LABS: ANISOCYTOSIS 0; MACROCYTOSIS 0; PLATELET ESTIMATE DECREASED
--- NOTE | 2018-06-10 13:13 | PN ---
Progress Note, Physician Chief Complaint: less R facial swelling no pain Bipap intermittently wide spread bruises and ecchymoses (both arms and chest) no other bleeding noted - Current Medication List Current Medications: Active Medications Acetaminophen (Tylenol -) 650 mg PO Q6H PRN PRN Reason: PAIN 1-7 Last Admin: 06/09/18 22:00 Dose: 650 mg Acyclovir (Zovirax -) 400 mg PO BID [facility] Last Admin: 06/10/18 10:24 Dose: 400 mg Albuterol Sulfate (Ventolin 0.083% Nebulizer Soln -) 1 amp NEB Q8H PRN PRN Reason: SHORT OF BREATH/WHEEZING Last Admin: 06/10/18 05:15 Dose: 1 amp Albuterol Sulfate (Ventolin Hfa Inhaler -) 1 puff IH Q6H PRN PRN Reason: ASTHMA Last Admin: 06/06/18 10:31 Dose: 1 puff Arformoterol Tartrate (Brovana (Restricted To Pulmonology/Resp) -) 1 amp NEB RBID [facility] Last Admin: 06/10/18 08:40 Dose: 1 amp Escitalopram Oxalate (Lexapro -) 5 mg PO DAILY [facility] Last Admin: 06/10/18 10:21 Dose: 5 mg Insulin Aspart (Novolog Vial Sliding Scale -) 1 vial SQ ACHS [facility]; Protocol Last Admin: 06/10/18 12:46 Dose: Not Given Lactobacillus Acidophilus (Bacid -) 1 tab PO DAILY [facility] Last Admin: 06/10/18 10:21 Dose: 1 tab Levofloxacin (Levaquin -) 500 mg PO DAILY [facility] Last Admin: 06/10/18 10:20 Dose: 500 mg Levothyroxine Sodium (Synthroid -) 75 mcg PO DAILY@0700 [facility] Last Admin: 06/10/18 06:39 Dose: 75 mcg Losartan Potassium (Cozaar -) 25 mg PO DAILY [facility] Last Admin: 06/10/18 10:21 Dose: 25 mg Montelukast Sodium (Singulair -) 10 mg PO HS [facility] Last Admin: 06/09/18 22:01 Dose: 10 mg Pantoprazole Sodium (Protonix -) 20 mg PO DAILY [facility] Last Admin: 06/10/18 10:20 Dose: 20 mg Polyethylene Glycol (Miralax (For Daily Use) -) 17 gm PO BID [facility] Last Admin: 06/10/18 10:21 Dose: Not Given Prednisone (Deltasone -) 30 mg PO BID [facility] Last Admin: 06/10/18 10:19 Dose: 30 mg Roflumilast (Daliresp -) 500 mcg PO DAILY [facility] Last Admin: 06/10/18 10:21 Dose: 500 mcg Rosuvastatin Calcium (Crestor -) 5 mg PO HS [facility] Last Admin: 06/09/18 22:00 Dose: 5 mg Sodium Chloride ([place] Nasal [place] -) 2 spray NS BID [facility] Last Admin: 06/10/18 10:21 Dose: Not Given Tiotropium [place] (Spiriva Respimat) 2 puff IH DAILY [facility] Last Admin: 06/10/18 10:25 Dose: 2 puff - Objective Vital Signs: Vital Signs Temperature 98 F 06/10/18 10:00 Pulse Rate 83 06/10/18 10:00 Respiratory Rate 18 06/10/18 10:00 Blood Pressure 113/61 06/10/18 10:00 O2 Sat by Pulse Oximetry (%) 99 06/09/18 09:00 Constitutional: Yes: No Distress, Calm Eyes: Yes: Conjunctiva Clear HENT: Yes: Atraumatic Neck: Yes: Supple Cardiovascular: Yes: Regular Rate and Rhythm Respiratory: Yes: CTA Bilaterally Gastrointestinal: Yes: Soft. No: Distention Genitourinary: No: CVA Tenderness - Left, CVA Tenderness - Right, Hematuria Musculoskeletal: No: Joint Stiffness, Joint Swelling Extremities: No: Calf Tenderness, Cold, Cool, Cyanosis Edema: No Integumentary: Yes: Bruising. No: Pressure Ulcer, Rash, Skin Tear, Venous Stasis Changes Neurological: Yes: WNL, Alert, Oriented. No: Confusion, Tremors ...Motor Strength: WNL Psychiatric: Yes: WNL, Alert, Oriented. No: Agitated, Suicidal Ideation Labs: CBC, BMP 06/10/18 06:30 06/10/18 06:30 INR, PTT INR 0.97 (0.83-1.09) 05/19/18 16:15 - ....Imaging Other: Report Reviewed Assessment/Plan The patient is a 57F w/ a history of severe advanced COPD O2 dependant and frequent Bipap use, HTN, CAD, hypothyroidism admitted with acute on chronic COPD exacerbation. s/p Fall. Sinusitis, PNA acute on chronic exacerbation of COPD; anemia; pulmonary f/u; po steroids; Bipap to use it as ordered; antibiotics po levaquin for R parotitis;ENT f/u acyclovir po for lip herpes - improving miralax prn constipation gastric pfx while on steroids; BGM and GLU control while on steroids R hand hematoma and bruises and R eye conjunctival small medial hematoma - hold sq heparin, hold ASA labs f/u falls decubs DVT PFX DC to NH if stable; d/w pt and also d/w staff and will call NH staff upon DC to NH: pt needs Bipap on over night and during the day prn; taper prednisone d/w pulmonary with 10 mg q4 days, then stay on 10 mg po bid and pulmonary f/u; also if pt becomes sleepy, confused or in respiratory distress to be transferred right away to ER via 911; d/w pt and that she is at high risk for respiratory failure, Co2 retention, respiratory arrest and ; all instructions will be included in NH f/u package prognosis guarded d/w pt and staff
--- NOTE | 2018-06-10 13:51 | PN ---
Progress Note (short form) - Note Progress Note: PULMONARY Breathing continues to slowly improve. Less cough and wheezing. Vital Signs Period Temp Pulse Resp BP Sys/Domínguez Pulse Ox Last 24 Hr 98 F-98.6 F 82-91 18-22 95-113/48-61 Gen: NAD at rest Heart: RRR Lung: scattered rhonchi Abd: soft, nontender Ext: no edema CBC, BMP 06/10/18 06:30 06/10/18 06:30 Active Medications Acetaminophen (Tylenol -) 650 mg PO Q6H PRN PRN Reason: PAIN 1-7 Last Admin: 06/09/18 22:00 Dose: 650 mg Acyclovir (Zovirax -) 400 mg PO BID [facility] Last Admin: 06/10/18 10:24 Dose: 400 mg Albuterol Sulfate (Ventolin 0.083% Nebulizer Soln -) 1 amp NEB Q8H PRN PRN Reason: SHORT OF BREATH/WHEEZING Last Admin: 06/10/18 05:15 Dose: 1 amp Albuterol Sulfate (Ventolin Hfa Inhaler -) 1 puff IH Q6H PRN PRN Reason: ASTHMA Last Admin: 06/06/18 10:31 Dose: 1 puff Arformoterol Tartrate (Brovana (Restricted To Pulmonology/Resp) -) 1 amp NEB RBID [facility] Last Admin: 06/10/18 08:40 Dose: 1 amp Escitalopram Oxalate (Lexapro -) 5 mg PO DAILY [facility] Last Admin: 06/10/18 10:21 Dose: 5 mg Insulin Aspart (Novolog Vial Sliding Scale -) 1 vial SQ ACHS [facility]; Protocol Last Admin: 06/10/18 12:46 Dose: Not Given Lactobacillus Acidophilus (Bacid -) 1 tab PO DAILY [facility] Last Admin: 06/10/18 10:21 Dose: 1 tab Levofloxacin (Levaquin -) 500 mg PO DAILY [facility] Last Admin: 06/10/18 10:20 Dose: 500 mg Levothyroxine Sodium (Synthroid -) 75 mcg PO DAILY@0700 [facility] Last Admin: 06/10/18 06:39 Dose: 75 mcg Losartan Potassium (Cozaar -) 25 mg PO DAILY [facility] Last Admin: 06/10/18 10:21 Dose: 25 mg Montelukast Sodium (Singulair -) 10 mg PO HS [facility] Last Admin: 06/09/18 22:01 Dose: 10 mg Pantoprazole Sodium (Protonix -) 20 mg PO DAILY [facility] Last Admin: 06/10/18 10:20 Dose: 20 mg Polyethylene Glycol (Miralax (For Daily Use) -) 17 gm PO BID [facility] Last Admin: 06/10/18 10:21 Dose: Not Given Prednisone (Deltasone -) 30 mg PO BID [facility] Last Admin: 06/10/18 10:19 Dose: 30 mg Roflumilast (Daliresp -) 500 mcg PO DAILY [facility] Last Admin: 06/10/18 10:21 Dose: 500 mcg Rosuvastatin Calcium (Crestor -) 5 mg PO HS [facility] Last Admin: 06/09/18 22:00 Dose: 5 mg Sodium Chloride ([place] Nasal [place] -) 2 spray NS BID [facility] Last Admin: 06/10/18 10:21 Dose: Not Given Tiotropium [place] (Spiriva Respimat) 2 puff IH DAILY [facility] Last Admin: 06/10/18 10:25 Dose: 2 puff A/P Acute on Chronic Hypoxic and Hypercapneic Respiratory Failure Acute COPD Exacerbation Altered Mental Status likely from Hypercapnea LV Diastolic Dysfunction NAVDEEP/OHS Hypothyroidism Hyperlipidemia - slow prednisone taper - inhaled bronchodilators - O2 to keep Spo2 88-92% - BiPAP at night and PRN during day - DVT prophylaxis
[2018-06-10] MEDS ORDERED: INSULIN (NOVOLOG) ASPART 100 UNITS/ML 10ML VIAL ONE (20:51)
[2018-06-10] MEDS: MONTELUKAST NA 10 MG TABLET PO SCH (21:19)
[2018-06-10] MEDS: ROSUVASTATIN CA 5 MG TABLET (FP) PO SCH (21:20)
[2018-06-11] MEDS: LEVOTHYROXINE NA 75 MCG TABLET (FP) PO SCH (06:00)
[2018-06-11] MEDS: INSULIN SLIDING SCALE (NOVOLOG) 1 VIAL SQ SCH ×4 (06:00→22:11)
[2018-06-11] MEDS: ARFORMOTEROL TARTRATE 15 MCG/2 ML VIAL NEB SCH ×2 (08:00→19:35)
--- NOTE | 2018-06-11 08:54 | DS ---
Physical Examination Vital Signs: Vital Signs Temperature 98.1 F 06/11/18 05:59 Pulse Rate 79 06/11/18 08:02 Respiratory Rate 20 06/11/18 05:59 Blood Pressure 108/64 06/11/18 05:59 O2 Sat by Pulse Oximetry (%) 94 L 06/11/18 08:02 Labs: CBC, BMP 06/10/18 06:30 06/10/18 06:30 Discharge Summary Reason For Visit: LETHARGY/ ALTERED MENTAL STATUS Current Active Problems Altered mental status (Acute) Anemia (Acute) COPD exacerbation (Acute) Lethargy (Acute) Nasal congestion (Acute) Rectal bleeding (Acute) Sialadenitis (Acute) Condition: Guarded - Instructions Referrals: Agustina Taylor [Primary Care Provider] - - Home Medications Comprehensive Discharge Medication List: Ambulatory Orders Losartan Potassium [Cozaar -] 25 mg PO DAILY #30 tablet 06/24/17 Roflumilast [Daliresp] 500 mcg PO DAILY #30 tablet 06/24/17 Escitalopram Oxalate [Lexapro -] 10 mg PO DAILY 08/31/17 Aspirin [ASA -] 81 mg PO DAILY 02/01/18 Albuterol Sulfate Inhaler - [Ventolin HFA Inhaler -] 1 - 2 inh PO Q6H PRN Montelukast Sodium [Singulair] 10 mg PO DAILY 04/05/18 Rosuvastatin [Crestor -] 5 mg PO HS 04/05/18 Albuterol 0.083% Nebulizer [place] [Ventolin 0.083% Nebulizer Soln -] 1 amp NEB TID PRN 05/06/18 Acetaminophen [Tylenol .Regular Strength -] 650 mg PO Q6H PRN tablet 05/16/18 Acetaminophen [Tylenol .Regular Strength -] 650 mg PO Q6H PRN tablet 06/10/18 Acyclovir [Zovirax -] 400 mg PO BID 3 Days tablet 06/10/18 Arformoterol Tartrate [Brovana -] 1 amp NEB RBID amp 06/10/18 Insulin Sliding Scale [Novolog Vial Sliding Scale -] 1 vial SQ ACHS units 06/10 Lactobacillus Acidophilus [Bacid -] 1 tab PO DAILY tab 06/10/18 Levothyroxine [Synthroid -] 75 mcg PO DAILY@0700 tablet 06/10/18 Pantoprazole Sodium [Protonix -] 20 mg PO DAILY tablet.ec 06/10/18 Polyethylene Glycol 3350 [Miralax 119 gm Btl -] 17 gm PO BID bottle 06/10/18 Sodium Chloride Nas[place] [[place] Nasal [place] -] 2 spray NS BID spray Tiotropium [place] [Spiriva Respimat] 2 puff IH DAILY inhaler 06/10/18 levoFLOXacin [Levaquin -] 500 mg PO DAILY 7 Days tablet 06/10/18 predniSONE [Deltasone -] 30 mg PO BID tablet 06/10/18
[2018-06-11 10:02] LABS: ARTERIAL BLD GAS O2 SATURATION 91.7 % (90-98.9); ARTERIAL BLOOD GAS BASE EXCESS 16.6 meq/l (-2-2); ARTERIAL BLOOD GAS PO2 65.4 mmHg (80-100); ARTERIAL BLOOD GAS pH 7.38 (7.35-7.45)
[2018-06-11] MEDS ORDERED: PT OWN MED DRAWER 7, Y5N ONE (10:14)
[2018-06-11] MEDS: predniSONE 10 MG TABLET (UD) PO SCH ×2 (10:16→10:46)
[2018-06-11] MEDS: LOSARTAN POTASSIUM 25 MG TABLET PO SCH (10:17)
[2018-06-11] MEDS: ESCITALOPRAM OXALATE 10 MG TABLET (FP) PO SCH (10:17)
[2018-06-11] MEDS: PANTOPRAZOLE 20 MG TABLET (FP) PO SCH (10:18)
[2018-06-11] MEDS: LACTOBACILLUS ACIDOPHILUS 1 TABLET PO SCH (10:18)
[2018-06-11] MEDS: POLYETHYLENE GLYCOL 3350 119 GM BTL PO SCH ×2 (10:18→22:18)
[2018-06-11] MEDS: SODIUM CHLORIDE NASAL SPRAY 44 ML BOTTLE NS SCH ×2 (10:18→22:16)
[2018-06-11] MEDS: ROFLUMILAST 500 MCG TABLET PO SCH (10:18)
[2018-06-11] MEDS: TIOTROPIUM BROMIDE 2.5 MCG (SPIRIVA) RESPIMAT INHALER IH SCH (10:18)
[2018-06-11] MEDS: ACYCLOVIR 400 MG TABLET PO SCH ×2 (10:19→22:20)
[2018-06-11 10:26] LABS: ALLENS TEST POSITIVE
[2018-06-11 10:31] LABS: ARTERIAL BLOOD GAS PCO2 76.6 mmHg (35-45)
--- NOTE | 2018-06-11 10:46 | PN ---
Progress Note, Physician Chief Complaint: pt was supposed to be DCd to NH/SNF today but she andrea,e SOB wheezing and coughing went back on O2, bipap, nebs, started on IV steroids and IV levaquin DC cancelled now feels better; generally weak; needs 1 or 2 people assist to get OOB - Current Medication List Current Medications: Active Medications Acetaminophen (Tylenol -) 650 mg PO Q6H PRN PRN Reason: PAIN 1-7 Last Admin: 06/09/18 22:00 Dose: 650 mg Acyclovir (Zovirax -) 400 mg PO BID [facility] Last Admin: 06/11/18 10:19 Dose: 400 mg Albuterol Sulfate (Ventolin 0.083% Nebulizer Soln -) 1 amp NEB Q8H PRN PRN Reason: SHORT OF BREATH/WHEEZING Last Admin: 06/10/18 13:56 Dose: 1 amp Albuterol Sulfate (Ventolin Hfa Inhaler -) 1 puff IH Q6H PRN PRN Reason: ASTHMA Last Admin: 06/06/18 10:31 Dose: 1 puff Arformoterol Tartrate (Brovana (Restricted To Pulmonology/Resp) -) 1 amp NEB RBID [facility] Last Admin: 06/11/18 08:00 Dose: 1 amp Escitalopram Oxalate (Lexapro -) 5 mg PO DAILY [facility] Last Admin: 06/11/18 10:17 Dose: 5 mg Insulin Aspart (Novolog Vial Sliding Scale -) 1 vial SQ ACHS [facility]; Protocol Last Admin: 06/11/18 06:00 Dose: 2 units Lactobacillus Acidophilus (Bacid -) 1 tab PO DAILY [facility] Last Admin: 06/11/18 10:18 Dose: 1 tab Levofloxacin (Levaquin -) 500 mg PO DAILY [facility] Last Admin: 06/11/18 10:17 Dose: 500 mg Levothyroxine Sodium (Synthroid -) 75 mcg PO DAILY@0700 [facility] Last Admin: 06/11/18 06:00 Dose: 75 mcg Losartan Potassium (Cozaar -) 25 mg PO DAILY [facility] Last Admin: 06/11/18 10:17 Dose: 25 mg Montelukast Sodium (Singulair -) 10 mg PO HS [facility] Last Admin: 06/10/18 21:19 Dose: 10 mg Pantoprazole Sodium (Protonix -) 20 mg PO DAILY [facility] Last Admin: 06/11/18 10:18 Dose: 20 mg Polyethylene Glycol (Miralax (For Daily Use) -) 17 gm PO BID [facility] Last Admin: 06/11/18 10:18 Dose: Not Given Prednisone (Deltasone -) 30 mg PO BID [facility] Last Admin: 06/10/18 21:19 Dose: 30 mg Roflumilast (Daliresp -) 500 mcg PO DAILY [facility] Last Admin: 06/11/18 10:18 Dose: 500 mcg Rosuvastatin Calcium (Crestor -) 5 mg PO HS [facility] Last Admin: 06/10/18 21:20 Dose: 5 mg Sodium Chloride ([place] Nasal [place] -) 2 spray NS BID [facility] Last Admin: 06/11/18 10:18 Dose: Not Given Tiotropium [place] (Spiriva Respimat) 2 puff IH DAILY [facility] Last Admin: 06/11/18 10:18 Dose: 2 puff - Objective Vital Signs: Vital Signs Temperature 98.1 F 06/11/18 05:59 Pulse Rate 79 06/11/18 08:02 Respiratory Rate 20 06/11/18 05:59 Blood Pressure 108/64 06/11/18 05:59 O2 Sat by Pulse Oximetry (%) 92 L 06/11/18 09:00 Constitutional: Yes: Anxious Eyes: Yes: Conjunctiva Clear HENT: Yes: Atraumatic Neck: Yes: Supple Cardiovascular: Yes: Regular Rate and Rhythm Respiratory: Yes: Rales, Wheezes Gastrointestinal: Yes: Soft. No: Distention Genitourinary: No: CVA Tenderness - Left, CVA Tenderness - Right Musculoskeletal: No: Joint Stiffness, Joint Swelling Extremities: No: Cold, Cool, Cyanosis Edema: No Integumentary: No: Rash, Venous Stasis Changes Neurological: Yes: WNL, Alert, Oriented ...Motor Strength: WNL Psychiatric: Yes: WNL, Alert, Oriented. No: Agitated, Suicidal Ideation Labs: CBC, BMP 06/10/18 06:30 06/10/18 06:30 INR, PTT INR 0.97 (0.83-1.09) 05/19/18 16:15 - ....Imaging Chest X-ray: Report Reviewed Other: Report Reviewed Assessment/Plan The patient is a 57F w/ a history of severe advanced COPD O2 dependant and frequent Bipap use, HTN, CAD, hypothyroidism admitted with acute on chronic COPD exacerbation. s/p Fall. Sinusitis, PNA acute on chronic exacerbation of COPD; anemia; pulmonary f/u; again on IV steroids; Bipap to use it as ordered; antibiotics IV levaquin for R parotitis, CXR possible LLL PNA; ID & ENT f/u weakness: neurology f/u; needs intensive PT rehab dw pt and d/w staff acyclovir po for lip herpes - improving miralax prn constipation gastric pfx while on steroids; BGM and GLU control while on steroids R hand hematoma and bruises and R eye conjunctival small medial hematoma improved with holding sq heparin & ASA labs f/u falls decubs DVT PFX do not get OOB alone dw pt; turn ion bed q1-2 h to prevent decubs d/w pt and staff; d/w pot's ; d/w pulmonary; pt will eventually need trachestomy for respiratory failure and CO2 retention; if pt develops respiratory failure and needs intubation, most likely she will not be able to be extubated and will need to be trached, or she could have trach done elective ; d/w pt and encouraged to discuss with pulmonary dr and to decide further treatment. prognosis guarded - d/w pt's PCP dr Navarro
--- NOTE | 2018-06-11 11:00 | PN ---
Progress Note, Physician History of Present Illness: Placed back on bipap, resting comfortably. Non-productive cough, wheezing and dyspnea slowly improving. Right facial swelling improving. - Current Medication List Current Medications: Active Medications Acetaminophen (Tylenol -) 650 mg PO Q6H PRN PRN Reason: PAIN 1-7 Last Admin: 06/09/18 22:00 Dose: 650 mg Acyclovir (Zovirax -) 400 mg PO BID [facility] Last Admin: 06/11/18 10:19 Dose: 400 mg Albuterol Sulfate (Ventolin 0.083% Nebulizer Soln -) 1 amp NEB Q8H PRN PRN Reason: SHORT OF BREATH/WHEEZING Last Admin: 06/10/18 13:56 Dose: 1 amp Albuterol Sulfate (Ventolin Hfa Inhaler -) 1 puff IH Q6H PRN PRN Reason: ASTHMA Last Admin: 06/06/18 10:31 Dose: 1 puff Arformoterol Tartrate (Brovana (Restricted To Pulmonology/Resp) -) 1 amp NEB RBID [facility] Last Admin: 06/11/18 08:00 Dose: 1 amp Escitalopram Oxalate (Lexapro -) 5 mg PO DAILY [facility] Last Admin: 06/11/18 10:17 Dose: 5 mg Insulin Aspart (Novolog Vial Sliding Scale -) 1 vial SQ ACHS [facility]; Protocol Last Admin: 06/11/18 06:00 Dose: 2 units Lactobacillus Acidophilus (Bacid -) 1 tab PO DAILY [facility] Last Admin: 06/11/18 10:18 Dose: 1 tab Levofloxacin (Levaquin -) 500 mg PO DAILY [facility] Last Admin: 06/11/18 10:47 Dose: Not Given Levothyroxine Sodium (Synthroid -) 75 mcg PO DAILY@0700 [facility] Last Admin: 06/11/18 06:00 Dose: 75 mcg Losartan Potassium (Cozaar -) 25 mg PO DAILY [facility] Last Admin: 06/11/18 10:17 Dose: 25 mg Montelukast Sodium (Singulair -) 10 mg PO HS [facility] Last Admin: 06/10/18 21:19 Dose: 10 mg Pantoprazole Sodium (Protonix -) 20 mg PO DAILY [facility] Last Admin: 06/11/18 10:18 Dose: 20 mg Polyethylene Glycol (Miralax (For Daily Use) -) 17 gm PO BID [facility] Last Admin: 06/11/18 10:18 Dose: Not Given Prednisone (Deltasone -) 30 mg PO BID [facility] Last Admin: 06/11/18 10:46 Dose: Not Given Roflumilast (Daliresp -) 500 mcg PO DAILY [facility] Last Admin: 06/11/18 10:18 Dose: 500 mcg Rosuvastatin Calcium (Crestor -) 5 mg PO HS [facility] Last Admin: 06/10/18 21:20 Dose: 5 mg Sodium Chloride ([place] Nasal [place] -) 2 spray NS BID [facility] Last Admin: 06/11/18 10:18 Dose: Not Given Tiotropium [place] (Spiriva Respimat) 2 puff IH DAILY [facility] Last Admin: 06/11/18 10:18 Dose: 2 puff - Objective Vital Signs: Vital Signs Temperature 98.1 F 06/11/18 05:59 Pulse Rate 79 06/11/18 08:02 Respiratory Rate 20 06/11/18 05:59 Blood Pressure 108/64 06/11/18 05:59 O2 Sat by Pulse Oximetry (%) 92 L 06/11/18 09:00 Constitutional: Yes: No Distress, Calm Neck: Yes: Supple Cardiovascular: Yes: Regular Rate and Rhythm Respiratory: Yes: Regular, Diminished, On BiPap Gastrointestinal: Yes: Normal Bowel Sounds, Soft, Abdomen, Obese Edema: No Labs: CBC, BMP 06/10/18 06:30 06/10/18 06:30 INR, PTT INR 0.97 (0.83-1.09) 05/19/18 16:15 - ....Imaging Chest X-ray: Report Reviewed (Left base ATX) Problem List - Problems (1) COPD exacerbation Code(s): J44.1 - CHRONIC OBSTRUCTIVE PULMONARY DISEASE W (ACUTE) EXACERBATION (2) Acute on chronic respiratory failure with hypoxia and hypercapnia Code(s): J96.21 - ACUTE AND CHRONIC RESPIRATORY FAILURE WITH HYPOXIA; J96.22 - ACUTE AND CHRONIC RESPIRATORY FAILURE WITH HYPERCAPNIA (3) Diastolic dysfunction Code(s): I51.9 - HEART DISEASE, UNSPECIFIED (4) Hyperlipidemia Code(s): E78.5 - HYPERLIPIDEMIA, UNSPECIFIED Qualifiers: Hyperlipidemia type: pure hypercholesterolemia Qualified Code(s): E78.00 - Pure hypercholesterolemia, unspecified; E78.0 - Pure hypercholesterolemia (5) Hypertension Code(s): I10 - ESSENTIAL (PRIMARY) HYPERTENSION Qualifiers: Hypertension type: essential hypertension Qualified Code(s): I10 - Essential (primary) hypertension (6) Hypothyroidism Code(s): E03.9 - HYPOTHYROIDISM, UNSPECIFIED Qualifiers: Hypothyroidism type: unspecified Qualified Code(s): E03.9 - Hypothyroidism , unspecified (7) Shortness of breath Code(s): R06.02 - SHORTNESS OF BREATH (8) Sleep apnea Code(s): G47.30 - SLEEP APNEA, UNSPECIFIED Qualifiers: Sleep apnea type: unspecified type Qualified Code(s): G47.30 - Sleep apnea , unspecified (9) Sialadenitis Code(s): K11.20 - SIALOADENITIS, UNSPECIFIED Assessment/Plan CT scan of facial bones reviewed ++right parotid swelling c/w sialadenitis, no nodule right anterior ethmoid cell opacification; bilateral sphenoid sinus air fluid levels right mastoid air cells opacified 1. Acute on chronic hypoxic and hypercapneic respiratory failure 2. Acute home O2-dependent chronic obstructive pulmonary disease exacerbation 3. Bilateral hospital-acquired pneumonia 4. Post toxic metabolic encephalopathy referable to hypercapnea 5. CAD coronary artery calcification angina pectoris 6. Diastolic LV dysfunction with chronic class I NYHA classification LV failure 7. HTN/HCVD 8. Hypercholesterolemia/mixed dyslipidemia 9. Hypothyroidism 10. Right hand hematoma 11. Anemia 12. OSAS 13. Right parotid sialadenitis PLAN: 1. ASA 81 qd, Losartan 25 mg QD and Crestor 5 mg QD as tolerated 2. Slow oral steroid taper with GI protection, BD, O2, Singulair, Daliresp, NIPPV AT NIGHT AND PRN, empiric levaquin course 3. DVT and GI prophylaxis 4. SNF once pulmonary status improves
[2018-06-11] MEDS: methylPREDNISolone NA SUCC 40 MG/1 ML VIAL IVPUSH SCH ×2 (11:47→22:19)
--- NOTE | 2018-06-11 15:29 | PN ---
Progress Note, Physician History of Present Illness: pulmonary alert,on nasal o2,had increased sob earlier placed on bipap with improvement - Current Medication List Current Medications: Active Medications Acetaminophen (Tylenol -) 650 mg PO Q6H PRN PRN Reason: PAIN 1-7 Last Admin: 06/09/18 22:00 Dose: 650 mg Acyclovir (Zovirax -) 400 mg PO BID [facility] Last Admin: 06/11/18 10:19 Dose: 400 mg Albuterol Sulfate (Ventolin 0.083% Nebulizer Soln -) 1 amp NEB Q8H PRN PRN Reason: SHORT OF BREATH/WHEEZING Last Admin: 06/10/18 13:56 Dose: 1 amp Albuterol Sulfate (Ventolin Hfa Inhaler -) 1 puff IH Q6H PRN PRN Reason: ASTHMA Last Admin: 06/06/18 10:31 Dose: 1 puff Arformoterol Tartrate (Brovana (Restricted To Pulmonology/Resp) -) 1 amp NEB RBID [facility] Last Admin: 06/11/18 08:00 Dose: 1 amp Escitalopram Oxalate (Lexapro -) 5 mg PO DAILY [facility] Last Admin: 06/11/18 10:17 Dose: 5 mg Levofloxacin (Levaquin 500 Mg Premixed Ivpb -) 500 mg in 100 mls @ 100 mls/hr IVPB DAILY [facility] Stop: 06/17/18 10:59 Last Admin: 06/11/18 11:47 Dose: 100 mls/hr Insulin Aspart (Novolog Vial Sliding Scale -) 1 vial SQ ACHS [facility]; Protocol Last Admin: 06/11/18 12:38 Dose: 4 units Lactobacillus Acidophilus (Bacid -) 1 tab PO DAILY [facility] Last Admin: 06/11/18 10:18 Dose: 1 tab Levothyroxine Sodium (Synthroid -) 75 mcg PO DAILY@0700 [facility] Last Admin: 06/11/18 06:00 Dose: 75 mcg Losartan Potassium (Cozaar -) 25 mg PO DAILY [facility] Last Admin: 06/11/18 10:17 Dose: 25 mg Methylprednisolone Sodium Succinate (Solu-Medrol -) 40 mg IVPUSH BID [facility] Last Admin: 06/11/18 11:47 Dose: 40 mg Montelukast Sodium (Singulair -) 10 mg PO HS [facility] Last Admin: 06/10/18 21:19 Dose: 10 mg Pantoprazole Sodium (Protonix -) 20 mg PO DAILY [facility] Last Admin: 06/11/18 10:18 Dose: 20 mg Polyethylene Glycol (Miralax (For Daily Use) -) 17 gm PO BID [facility] Last Admin: 06/11/18 10:18 Dose: Not Given Roflumilast (Daliresp -) 500 mcg PO DAILY [facility] Last Admin: 06/11/18 10:18 Dose: 500 mcg Rosuvastatin Calcium (Crestor -) 5 mg PO HS [facility] Last Admin: 06/10/18 21:20 Dose: 5 mg Sodium Chloride ([place] Nasal [place] -) 2 spray NS BID [facility] Last Admin: 06/11/18 10:18 Dose: Not Given Tiotropium [place] (Spiriva Respimat) 2 puff IH DAILY [facility] Last Admin: 06/11/18 10:18 Dose: 2 puff - Objective Vital Signs: Vital Signs Temperature 97.4 F L 06/11/18 14:51 Pulse Rate 111 H 06/11/18 14:51 Respiratory Rate 20 06/11/18 14:51 Blood Pressure 104/58 L 06/11/18 14:51 O2 Sat by Pulse Oximetry (%) 93 L 06/11/18 14:26 Constitutional: Yes: Well Nourished, Calm, Other Eyes: Yes: WNL HENT: Yes: WNL Neck: Yes: WNL Cardiovascular: Yes: Regular Rate and Rhythm, S1, S2 Respiratory: Yes: Diminished Gastrointestinal: Yes: Normal Bowel Sounds, Soft Extremities: Yes: WNL Edema: No Labs: CBC, BMP Laboratory Tests 06/11/18 09:50 ABG pH 7.38 ABG pCO2 at Pt Temp 76.6 H* ABG pO2 at Pt Temp 65.4 L ABG HCO3 44.1 H* ABG O2 Sat (Measured) 91.7 Oxygen Flow Rate 40% Vent Mode S/t Mechanical Rate [id number] 5 - ....Imaging Chest X-ray: Report Reviewed, Image Reviewed Problem List - Problems (1) Altered mental status Code(s): R41.82 - ALTERED MENTAL STATUS, UNSPECIFIED Qualifiers: Altered mental status type: disorientation Qualified Code(s): R41.0 - Disorientation, unspecified (2) COPD exacerbation Code(s): J44.1 - CHRONIC OBSTRUCTIVE PULMONARY DISEASE W (ACUTE) EXACERBATION (3) Acute on chronic respiratory failure with hypoxia and hypercapnia Code(s): J96.21 - ACUTE AND CHRONIC RESPIRATORY FAILURE WITH HYPOXIA; J96.22 - ACUTE AND CHRONIC RESPIRATORY FAILURE WITH HYPERCAPNIA (4) CHF (congestive heart failure) Code(s): I50.9 - HEART FAILURE, UNSPECIFIED (5) COPD exacerbation Code(s): J44.1 - CHRONIC OBSTRUCTIVE PULMONARY DISEASE W (ACUTE) EXACERBATION (6) Diastolic dysfunction Code(s): I51.9 - HEART DISEASE, UNSPECIFIED (7) Sleep apnea Code(s): G47.30 - SLEEP APNEA, UNSPECIFIED Qualifiers: Sleep apnea type: unspecified type Qualified Code(s): G47.30 - Sleep apnea , unspecified Assessment/Plan IMP ACUTE ON CHRONIC HYPOXEMIC HYPERCAPNEIC RESPIRATORY FAILURE COPD O2 DEPENDENT PNEUMONIA ALTERED MENTAL STATUS CHF HYPOTHYROID NAVDEEP R PAROTID SWELLING PLAN MEDROL INHALED BRONCHODILATORS O2 BIPAP AT NIGHT AND PRN ID f/u Problem List - Problems (1) Altered mental status Code(s): R41.82 - ALTERED MENTAL STATUS, UNSPECIFIED Qualifiers: Altered mental status type: disorientation Qualified Code(s): R41.0 - Disorientation, unspecified (2) COPD exacerbation Code(s): J44.1 - CHRONIC OBSTRUCTIVE PULMONARY DISEASE W (ACUTE) EXACERBATION (3) Acute on chronic respiratory failure with hypoxia and hypercapnia Code(s): J96.21 - ACUTE AND CHRONIC RESPIRATORY FAILURE WITH HYPOXIA; J96.22 - ACUTE AND CHRONIC RESPIRATORY FAILURE WITH HYPERCAPNIA (4) CHF (congestive heart failure) Code(s): I50.9 - HEART FAILURE, UNSPECIFIED (5) COPD exacerbation Code(s): J44.1 - CHRONIC OBSTRUCTIVE PULMONARY DISEASE W (ACUTE) EXACERBATION (6) Diastolic dysfunction Code(s): I51.9 - HEART DISEASE, UNSPECIFIED (7) Sleep apnea Code(s): G47.30 - SLEEP APNEA, UNSPECIFIED
[2018-06-11] MEDS: ALBUTEROL SO4 0.083% IH SOL 2.5 MG/3 ML VIAL.NEB. NEB PRN (16:09)
[2018-06-11] MEDS: MONTELUKAST NA 10 MG TABLET PO SCH (22:19)
[2018-06-11] MEDS: ROSUVASTATIN CA 5 MG TABLET (FP) PO SCH (22:21)
[2018-06-12] MEDS: LEVOTHYROXINE NA 75 MCG TABLET (FP) PO SCH (06:20)
[2018-06-12] MEDS: INSULIN SLIDING SCALE (NOVOLOG) 1 VIAL SQ SCH ×4 (06:25→21:38)
--- NOTE | 2018-06-12 06:33 | PN ---
Progress Note, Physician Chief Complaint: breathing better on IV steroids and bipap; tried to get OOB with 2 persons assist and could not b.o weakness; developed urinary retention, Wasserman inserted - Current Medication List Current Medications: Active Medications Acetaminophen (Tylenol -) 650 mg PO Q6H PRN PRN Reason: PAIN 1-7 Last Admin: 06/09/18 22:00 Dose: 650 mg Acyclovir (Zovirax -) 400 mg PO BID [facility] Last Admin: 06/11/18 22:20 Dose: 400 mg Albuterol Sulfate (Ventolin 0.083% Nebulizer Soln -) 1 amp NEB Q8H PRN PRN Reason: SHORT OF BREATH/WHEEZING Last Admin: 06/11/18 16:09 Dose: 1 amp Albuterol Sulfate (Ventolin Hfa Inhaler -) 1 puff IH Q6H PRN PRN Reason: ASTHMA Last Admin: 06/06/18 10:31 Dose: 1 puff Arformoterol Tartrate (Brovana (Restricted To Pulmonology/Resp) -) 1 amp NEB RBID [facility] Last Admin: 06/11/18 19:35 Dose: 1 amp Escitalopram Oxalate (Lexapro -) 5 mg PO DAILY [facility] Last Admin: 06/11/18 10:17 Dose: 5 mg Levofloxacin (Levaquin 500 Mg Premixed Ivpb -) 500 mg in 100 mls @ 100 mls/hr IVPB DAILY [facility] Stop: 06/17/18 10:59 Last Admin: 06/11/18 11:47 Dose: 100 mls/hr Insulin Aspart (Novolog Vial Sliding Scale -) 1 vial SQ ACHS [facility]; Protocol Last Admin: 06/12/18 06:25 Dose: Not Given Lactobacillus Acidophilus (Bacid -) 1 tab PO DAILY [facility] Last Admin: 06/11/18 10:18 Dose: 1 tab Levothyroxine Sodium (Synthroid -) 75 mcg PO DAILY@0700 [facility] Last Admin: 06/12/18 06:20 Dose: 75 mcg Losartan Potassium (Cozaar -) 25 mg PO DAILY [facility] Last Admin: 06/11/18 10:17 Dose: 25 mg Methylprednisolone Sodium Succinate (Solu-Medrol -) 40 mg IVPUSH BID [facility] Last Admin: 06/11/18 22:19 Dose: 40 mg Montelukast Sodium (Singulair -) 10 mg PO HS [facility] Last Admin: 06/11/18 22:19 Dose: 10 mg Pantoprazole Sodium (Protonix -) 20 mg PO DAILY [facility] Last Admin: 06/11/18 10:18 Dose: 20 mg Polyethylene Glycol (Miralax (For Daily Use) -) 17 gm PO BID [facility] Last Admin: 06/11/18 22:18 Dose: 17 gm Roflumilast (Daliresp -) 500 mcg PO DAILY [facility] Last Admin: 06/11/18 10:18 Dose: 500 mcg Rosuvastatin Calcium (Crestor -) 5 mg PO HS [facility] Last Admin: 06/11/18 22:21 Dose: 5 mg Sodium Chloride ([place] Nasal [place] -) 2 spray NS BID [facility] Last Admin: 06/11/18 22:16 Dose: 2 spray Tiotropium [place] (Spiriva Respimat) 2 puff IH DAILY [facility] Last Admin: 06/11/18 10:18 Dose: 2 puff - Objective Vital Signs: Vital Signs Temperature 98.1 F 06/12/18 06:15 Pulse Rate 80 06/12/18 06:15 Respiratory Rate 20 06/12/18 06:15 Blood Pressure 131/70 06/12/18 06:15 O2 Sat by Pulse Oximetry (%) 96 06/11/18 23:00 Constitutional: Yes: Anxious Eyes: Yes: Conjunctiva Clear HENT: Yes: Atraumatic Neck: Yes: Supple Cardiovascular: Yes: Regular Rate and Rhythm Respiratory: Yes: Rales Gastrointestinal: Yes: Soft. No: Distention Genitourinary: No: CVA Tenderness - Left, CVA Tenderness - Right, Hematuria Musculoskeletal: No: Joint Stiffness, Joint Swelling Extremities: No: Calf Tenderness, Cold, Cool, Cyanosis Edema: No Integumentary: No: Rash, Venous Stasis Changes Neurological: Yes: WNL, Alert, Oriented ...Motor Strength: WNL Psychiatric: Yes: WNL, Alert, Oriented. No: Agitated, Suicidal Ideation Labs: CBC, BMP 06/10/18 06:30 06/10/18 06:30 INR, PTT INR 0.97 (0.83-1.09) 05/19/18 16:15 - ....Imaging Other: Report Reviewed Assessment/Plan The patient is a 57F w/ a history of severe advanced COPD O2 dependant and frequent Bipap use, HTN, CAD, hypothyroidism admitted with acute on chronic COPD exacerbation. s/p Fall. Sinusitis, PNA acute on chronic exacerbation of COPD; anemia; pulmonary f/u; again on IV steroids; Bipap to use it as ordered; antibiotics IV levaquin for R parotitis, CXR possible LLL PNA; ID & ENT f/u weakness: neurology f/u; needs intensive PT rehab dw pt and d/w staff acyclovir po for lip herpes - improving miralax prn constipation gastric pfx while on steroids; BGM and GLU control while on steroids R hand hematoma and bruises and R eye conjunctival small medial hematoma improved with holding sq heparin & ASA labs f/u falls decubs DVT PFX do not get OOB alone dw pt; turn ion bed q1-2 h to prevent decubs d/w pt and staff; prognosis guarded - also d/w pt's PCP dr Navarro and pulm dr Parrish.
[2018-06-12 08:20] LABS: BASO % 0.6 % (0-2.0); HEMATOCRIT 28.7 % (32.4-45.2); HEMOGLOBIN 9.1 GM/dL (10.7-15.3); LYMPH % 1.1 % (8-40); MCH 29.3 pg (25.7-33.7); MCHC 31.6 g/dl (32.0-36.0); MEAN CELL VOLUME 92.9 fl (80-96); MEAN PLT VOLUME 8.5 fl (7.5-11.1); NEUT % 94.3 % (42.8-82.8); PLATELET COUNT 183 K/MM3 (134-434); RDW 14.5 % (11.6-15.6); WHITE BLOOD COUNT 10.4 K/mm3 (4.0-10.0)
[2018-06-12] MEDS: ALBUTEROL SO4 0.083% IH SOL 2.5 MG/3 ML VIAL.NEB. NEB PRN (08:33)
[2018-06-12] MEDS: ARFORMOTEROL TARTRATE 15 MCG/2 ML VIAL NEB SCH ×2 (08:33→20:45)
[2018-06-12 08:48] LABS: ALBUMIN 2.3 g/dl (3.4-5.0); ALK PHOS 136 U/L (45-117); ANION GAP 5 MMOL/L (8-16); BILIRUBIN,TOTAL 0.5 mg/dL (0.2-1); BLOOD UREA NITROGEN 21 mg/dL (7-18); CALCIUM 8.2 mg/dL (8.5-10.1); CHLORIDE 92 mmol/L (98-107); CO2 43 mmol/L (21-32); CREATININE 0.4 mg/dL (0.55-1.3); GLUCOSE,RANDOM 88 mg/dL (74-106); POTASSIUM 3.6 mmol/L (3.5-5.1); SGOT/AST 25 U/L (15-37); SGPT/ALT 38 U/L (13-61); SODIUM 140 mmol/L (136-145); TOT PROT 5.2 g/dl (6.4-8.2)
[2018-06-12] MEDS: PANTOPRAZOLE 20 MG TABLET (FP) PO SCH (09:55)
[2018-06-12] MEDS: ESCITALOPRAM OXALATE 10 MG TABLET (FP) PO SCH (09:55)
[2018-06-12] MEDS: LOSARTAN POTASSIUM 25 MG TABLET PO SCH (09:55)
[2018-06-12] MEDS: ROFLUMILAST 500 MCG TABLET PO SCH (09:56)
[2018-06-12] MEDS: methylPREDNISolone NA SUCC 40 MG/1 ML VIAL IVPUSH SCH ×2 (09:56→21:37)
[2018-06-12] MEDS: LACTOBACILLUS ACIDOPHILUS 1 TABLET PO SCH (09:56)
[2018-06-12] MEDS: ACYCLOVIR 400 MG TABLET PO SCH (09:57)
[2018-06-12] MEDS: TIOTROPIUM BROMIDE 2.5 MCG (SPIRIVA) RESPIMAT INHALER IH SCH (09:58)
[2018-06-12] MEDS: SODIUM CHLORIDE NASAL SPRAY 44 ML BOTTLE NS SCH ×2 (09:58→21:38)
[2018-06-12] MEDS: POLYETHYLENE GLYCOL 3350 119 GM BTL PO SCH ×2 (09:59→21:38)
[2018-06-12] MEDS ORDERED: PT OWN MED DRAWER 7, Y5N ONE (11:38)
--- NOTE | 2018-06-12 11:52 | PN ---
Progress Note (short form) - Note Progress Note: lvery tearful very weak had cristin placed this am pen allergy- welts Vital Signs Period Temp Pulse Resp BP Sys/Domínguez Pulse Ox Last 24 Hr 97.4 F-98.7 F 80-111 20-20 102-131/50-85 92-100 no parotid swelling blister on tip of tongue cor-rrr lungs decreased bs at bases abd soft,nt ext ecchymoses amaral CBC, BMP 06/12/18 08:05 06/12/18 08:05 Microbiology 05/27/18 21:17 Urine - Urine Clean Catch Urine Culture - Final Enterococcus Faecalis 05/25/18 18:47 Urine For Antigen Detection Legionella Antigen - Final 05/25/18 18:47 Urine For Antigen Detection Streptococcus pneumoniae Antigen (M - Final 05/19/18 16:27 Blood - Peripheral Venous Blood Culture - Final NO GROWTH AFTER 5 DAYS INCUBATION 05/19/18 16:27 Blood - Peripheral Venous Blood Culture - Final NO GROWTH AFTER 5 DAYS INCUBATION 05/20/18 13:35 Urine - Urine Clean Catch Urine Culture - Final Enterococcus Faecalis Current Medications Acetaminophen (Tylenol -) 650 mg PO Q6H PRN PRN Reason: PAIN 1-7 Last Admin: 06/09/18 22:00 Dose: 650 mg Acyclovir (Zovirax -) 400 mg PO BID [facility] Last Admin: 06/12/18 09:57 Dose: 400 mg Albuterol Sulfate (Ventolin 0.083% Nebulizer Soln -) 1 amp NEB Q8H PRN PRN Reason: SHORT OF BREATH/WHEEZING Last Admin: 06/12/18 08:33 Dose: 1 amp Albuterol Sulfate (Ventolin Hfa Inhaler -) 1 puff IH Q6H PRN PRN Reason: ASTHMA Last Admin: 06/06/18 10:31 Dose: 1 puff Arformoterol Tartrate (Brovana (Restricted To Pulmonology/Resp) -) 1 amp NEB RBID [facility] Last Admin: 06/12/18 08:33 Dose: 1 amp Escitalopram Oxalate (Lexapro -) 5 mg PO DAILY [facility] Last Admin: 06/12/18 09:55 Dose: 5 mg Levofloxacin (Levaquin 500 Mg Premixed Ivpb -) 500 mg in 100 mls @ 100 mls/hr IVPB DAILY [facility] Stop: 06/17/18 10:59 Last Admin: 06/12/18 09:55 Dose: 100 mls/hr Insulin Aspart (Novolog Vial Sliding Scale -) 1 vial SQ ACHS [facility]; Protocol Last Admin: 06/12/18 11:46 Dose: 4 units Lactobacillus Acidophilus (Bacid -) 1 tab PO DAILY [facility] Last Admin: 06/12/18 09:56 Dose: 1 tab Levothyroxine Sodium (Synthroid -) 75 mcg PO DAILY@0700 [facility] Last Admin: 06/12/18 06:20 Dose: 75 mcg Losartan Potassium (Cozaar -) 25 mg PO DAILY [facility] Last Admin: 06/12/18 09:55 Dose: 25 mg Methylprednisolone Sodium Succinate (Solu-Medrol -) 40 mg IVPUSH BID [facility] Last Admin: 06/12/18 09:56 Dose: 40 mg Montelukast Sodium (Singulair -) 10 mg PO HS [facility] Last Admin: 06/11/18 22:19 Dose: 10 mg Pantoprazole Sodium (Protonix -) 20 mg PO DAILY [facility] Last Admin: 06/12/18 09:55 Dose: 20 mg Polyethylene Glycol (Miralax (For Daily Use) -) 17 gm PO BID [facility] Last Admin: 06/12/18 09:59 Dose: Not Given Roflumilast (Daliresp -) 500 mcg PO DAILY [facility] Last Admin: 06/12/18 09:56 Dose: 500 mcg Rosuvastatin Calcium (Crestor -) 5 mg PO HS [facility] Last Admin: 06/11/18 22:21 Dose: 5 mg Sodium Chloride ([place] Nasal [place] -) 2 spray NS BID [facility] Last Admin: 06/12/18 09:58 Dose: 2 spray Tiotropium [place] (Spiriva Respimat) 2 puff IH DAILY [facility] Last Admin: 06/12/18 09:58 Dose: 2 puff cxray no new changes a/p weakness- I suspect due to steroids, ?steroid myopathy-cpk and aldolase pending consider Physical medicine evaluation parotitis appears resolved-would d/c levaquin and observe cxray appears stable would switch to valtrex- oral hsv copd exacerbation-remains on solumedrol leukocytosis secondary to steroids pen allergy noted repeat blood cultures for fever or leukocytosis
[2018-06-12 12:27] LABS: ANISOCYTOSIS 1+; MACROCYTOSIS 1+; PLATELET ESTIMATE NORMAL
--- NOTE | 2018-06-12 13:19 | PN ---
Progress Note, Physician History of Present Illness: PULMONARY ALERT,COMFORTABLE ON NASAL O2,-RESP DISTRESS - Current Medication List Current Medications: Active Medications Acetaminophen (Tylenol -) 650 mg PO Q6H PRN PRN Reason: PAIN 1-7 Last Admin: 06/09/18 22:00 Dose: 650 mg Albuterol Sulfate (Ventolin 0.083% Nebulizer Soln -) 1 amp NEB Q8H PRN PRN Reason: SHORT OF BREATH/WHEEZING Last Admin: 06/12/18 08:33 Dose: 1 amp Albuterol Sulfate (Ventolin Hfa Inhaler -) 1 puff IH Q6H PRN PRN Reason: ASTHMA Last Admin: 06/06/18 10:31 Dose: 1 puff Arformoterol Tartrate (Brovana (Restricted To Pulmonology/Resp) -) 1 amp NEB RBID [facility] Last Admin: 06/12/18 08:33 Dose: 1 amp Escitalopram Oxalate (Lexapro -) 5 mg PO DAILY [facility] Last Admin: 06/12/18 09:55 Dose: 5 mg Insulin Aspart (Novolog Vial Sliding Scale -) 1 vial SQ ACHS [facility]; Protocol Last Admin: 06/12/18 11:46 Dose: 4 units Lactobacillus Acidophilus (Bacid -) 1 tab PO DAILY [facility] Last Admin: 06/12/18 09:56 Dose: 1 tab Levothyroxine Sodium (Synthroid -) 75 mcg PO DAILY@0700 [facility] Last Admin: 06/12/18 06:20 Dose: 75 mcg Losartan Potassium (Cozaar -) 25 mg PO DAILY [facility] Last Admin: 06/12/18 09:55 Dose: 25 mg Methylprednisolone Sodium Succinate (Solu-Medrol -) 40 mg IVPUSH BID [facility] Last Admin: 06/12/18 09:56 Dose: 40 mg Montelukast Sodium (Singulair -) 10 mg PO HS [facility] Last Admin: 06/11/18 22:19 Dose: 10 mg Pantoprazole Sodium (Protonix -) 20 mg PO DAILY [facility] Last Admin: 06/12/18 09:55 Dose: 20 mg Polyethylene Glycol (Miralax (For Daily Use) -) 17 gm PO BID [facility] Last Admin: 06/12/18 09:59 Dose: Not Given Roflumilast (Daliresp -) 500 mcg PO DAILY [facility] Last Admin: 06/12/18 09:56 Dose: 500 mcg Rosuvastatin Calcium (Crestor -) 5 mg PO HS [facility] Last Admin: 06/11/18 22:21 Dose: 5 mg Sodium Chloride ([place] Nasal [place] -) 2 spray NS BID [facility] Last Admin: 06/12/18 09:58 Dose: 2 spray Tiotropium [place] (Spiriva Respimat) 2 puff IH DAILY [facility] Last Admin: 06/12/18 09:58 Dose: 2 puff Valacyclovir HCl (Valtrex -) 500 mg PO BID [facility] - Objective Vital Signs: Vital Signs Temperature 98.0 F 06/12/18 10:00 Pulse Rate 87 06/12/18 10:00 Respiratory Rate 20 06/12/18 10:00 Blood Pressure 102/62 06/12/18 10:00 O2 Sat by Pulse Oximetry (%) 92 L 06/12/18 11:03 Constitutional: Yes: Well Nourished, Calm Eyes: Yes: WNL HENT: Yes: WNL Neck: Yes: WNL Cardiovascular: Yes: Regular Rate and Rhythm, S1, S2 Respiratory: Yes: Diminished Gastrointestinal: Yes: Normal Bowel Sounds, Soft Extremities: Yes: WNL Edema: No Labs: CBC, BMP 06/12/18 08:05 06/12/18 08:05 INR, PTT INR 0.97 (0.83-1.09) 05/19/18 16:15 Problem List - Problems (1) Altered mental status Code(s): R41.82 - ALTERED MENTAL STATUS, UNSPECIFIED Qualifiers: Altered mental status type: disorientation Qualified Code(s): R41.0 - Disorientation, unspecified (2) COPD exacerbation Code(s): J44.1 - CHRONIC OBSTRUCTIVE PULMONARY DISEASE W (ACUTE) EXACERBATION (3) Acute on chronic respiratory failure with hypoxia and hypercapnia Code(s): J96.21 - ACUTE AND CHRONIC RESPIRATORY FAILURE WITH HYPOXIA; J96.22 - ACUTE AND CHRONIC RESPIRATORY FAILURE WITH HYPERCAPNIA (4) CHF (congestive heart failure) Code(s): I50.9 - HEART FAILURE, UNSPECIFIED (5) COPD exacerbation Code(s): J44.1 - CHRONIC OBSTRUCTIVE PULMONARY DISEASE W (ACUTE) EXACERBATION (6) Diastolic dysfunction Code(s): I51.9 - HEART DISEASE, UNSPECIFIED (7) Sleep apnea Code(s): G47.30 - SLEEP APNEA, UNSPECIFIED Qualifiers: Sleep apnea type: unspecified type Qualified Code(s): G47.30 - Sleep apnea , unspecified Assessment/Plan IMP ACUTE ON CHRONIC HYPOXEMIC HYPERCAPNEIC RESPIRATORY FAILURE COPD O2 DEPENDENT PNEUMONIA ALTERED MENTAL STATUS CHF HYPOTHYROID NAVDEEP R PAROTID SWELLING STEROID MYOPATHY PLAN TAPER MEDROL INHALED BRONCHODILATORS O2 BIPAP AT NIGHT AND PRN Problem List - Problems (1) Altered mental status Code(s): R41.82 - ALTERED MENTAL STATUS, UNSPECIFIED Qualifiers: Altered mental status type: disorientation Qualified Code(s): R41.0 - Disorientation, unspecified (2) COPD exacerbation Code(s): J44.1 - CHRONIC OBSTRUCTIVE PULMONARY DISEASE W (ACUTE) EXACERBATION (3) Acute on chronic respiratory failure with hypoxia and hypercapnia Code(s): J96.21 - ACUTE AND CHRONIC RESPIRATORY FAILURE WITH HYPOXIA; J96.22 - ACUTE AND CHRONIC RESPIRATORY FAILURE WITH HYPERCAPNIA (4) CHF (congestive heart failure) Code(s): I50.9 - HEART FAILURE, UNSPECIFIED (5) COPD exacerbation Code(s): J44.1 - CHRONIC OBSTRUCTIVE PULMONARY DISEASE W (ACUTE) EXACERBATION (6) Diastolic dysfunction Code(s): I51.9 - HEART DISEASE, UNSPECIFIED (7) Sleep apnea Code(s): G47.30 - SLEEP APNEA, UNSPECIFIED
[2018-06-12] MEDS: MONTELUKAST NA 10 MG TABLET PO SCH (21:37)
[2018-06-12] MEDS: valACYclovir HCL 500 MG TABLET (FP) PO SCH (21:37)
[2018-06-12] MEDS: ROSUVASTATIN CA 5 MG TABLET (FP) PO SCH (21:38)
[2018-06-12] MEDS: ACETAMINOPHEN 325 MG TABLET (FP) PO PRN (22:17)
[2018-06-13] MEDS: INSULIN SLIDING SCALE (NOVOLOG) 1 VIAL SQ SCH ×4 (07:05→22:30)
[2018-06-13] MEDS: LEVOTHYROXINE NA 75 MCG TABLET (FP) PO SCH (07:05)
[2018-06-13 07:31] LABS: BASO % 0.1 % (0-2.0); HEMATOCRIT 29.3 % (32.4-45.2); HEMOGLOBIN 9.4 GM/dL (10.7-15.3); LYMPH % 3.4 % (8-40); MCH 29.7 pg (25.7-33.7); MCHC 31.9 g/dl (32.0-36.0); MEAN CELL VOLUME 93.1 fl (80-96); MEAN PLT VOLUME 8.2 fl (7.5-11.1); MONO % 7.3 % (3.8-10.2); NEUT % 89.2 % (42.8-82.8); PLATELET COUNT 176 K/MM3 (134-434); RBC 3.15 M/mm3 (3.60-5.2); RDW 14.5 % (11.6-15.6)
[2018-06-13] MEDS: ARFORMOTEROL TARTRATE 15 MCG/2 ML VIAL NEB SCH ×2 (08:00→20:33)
[2018-06-13 08:12] LABS: ANION GAP 2 MMOL/L (8-16); BLOOD UREA NITROGEN 20 mg/dL (7-18); CALCIUM 8.3 mg/dL (8.5-10.1); CHLORIDE 93 mmol/L (98-107); CO2 44 mmol/L (21-32); CREATININE 0.3 mg/dL (0.55-1.3); GLUCOSE,RANDOM 91 mg/dL (74-106); POTASSIUM 3.9 mmol/L (3.5-5.1); SODIUM 139 mmol/L (136-145)
[2018-06-13] MEDS: valACYclovir HCL 500 MG TABLET (FP) PO SCH ×2 (09:12→22:29)
[2018-06-13] MEDS: ESCITALOPRAM OXALATE 10 MG TABLET (FP) PO SCH (09:12)
[2018-06-13] MEDS: LACTOBACILLUS ACIDOPHILUS 1 TABLET PO SCH (09:12)
[2018-06-13] MEDS: PANTOPRAZOLE 20 MG TABLET (FP) PO SCH (09:12)
[2018-06-13] MEDS: LOSARTAN POTASSIUM 25 MG TABLET PO SCH (09:13)
[2018-06-13] MEDS: ROFLUMILAST 500 MCG TABLET PO SCH (09:13)
[2018-06-13] MEDS: POLYETHYLENE GLYCOL 3350 119 GM BTL PO SCH ×2 (09:13→22:29)
[2018-06-13] MEDS: methylPREDNISolone NA SUCC 40 MG/1 ML VIAL IVPUSH SCH ×2 (09:13→22:29)
[2018-06-13] MEDS: TIOTROPIUM BROMIDE 2.5 MCG (SPIRIVA) RESPIMAT INHALER IH SCH (09:14)
[2018-06-13] MEDS: SODIUM CHLORIDE NASAL SPRAY 44 ML BOTTLE NS SCH ×2 (09:14→22:31)
[2018-06-13] MEDS: ACETAMINOPHEN 325 MG TABLET (FP) PO PRN ×2 (09:33→22:36)
[2018-06-13 10:00] LABS: ACANTHOCYTES 0; ANISOCYTOSIS 0; HELMET CELLS 0; HOWELL-JOLLY BODIES 0; MACROCYTOSIS 0; OVALOCYTE 0; PLATELET ESTIMATE NORMAL; ROULEAU 0; SICKELED CELLS 0; TARGET CELLS 0; TEAR DROP CELLS 0; TOXIC GRANULATION 0
--- NOTE | 2018-06-13 11:22 | PN ---
Progress Note, Physician Chief Complaint: c/o some back pain with moving in bed; will get LS xrays ESR 59 CRP borderline; CPK NL antibodies pending. less cough less SOB - Current Medication List Current Medications: Active Medications Acetaminophen (Tylenol -) 650 mg PO Q6H PRN PRN Reason: PAIN 1-7 Last Admin: 06/13/18 09:33 Dose: 650 mg Albuterol Sulfate (Ventolin 0.083% Nebulizer Soln -) 1 amp NEB Q8H PRN PRN Reason: SHORT OF BREATH/WHEEZING Last Admin: 06/12/18 08:33 Dose: 1 amp Albuterol Sulfate (Ventolin Hfa Inhaler -) 1 puff IH Q6H PRN PRN Reason: ASTHMA Last Admin: 06/06/18 10:31 Dose: 1 puff Arformoterol Tartrate (Brovana (Restricted To Pulmonology/Resp) -) 1 amp NEB RBID [facility] Last Admin: 06/13/18 08:00 Dose: 1 amp Escitalopram Oxalate (Lexapro -) 5 mg PO DAILY [facility] Last Admin: 06/13/18 09:12 Dose: 5 mg Insulin Aspart (Novolog Vial Sliding Scale -) 1 vial SQ ACHS [facility]; Protocol Last Admin: 06/13/18 07:05 Dose: Not Given Lactobacillus Acidophilus (Bacid -) 1 tab PO DAILY [facility] Last Admin: 06/13/18 09:12 Dose: 1 tab Levothyroxine Sodium (Synthroid -) 75 mcg PO DAILY@0700 [facility] Last Admin: 06/13/18 07:05 Dose: 75 mcg Losartan Potassium (Cozaar -) 25 mg PO DAILY [facility] Last Admin: 06/13/18 09:13 Dose: 25 mg Methylprednisolone Sodium Succinate (Solu-Medrol -) 30 mg IVPUSH BID [facility] Last Admin: 06/13/18 09:13 Dose: 30 mg Montelukast Sodium (Singulair -) 10 mg PO HS [facility] Last Admin: 06/12/18 21:37 Dose: 10 mg Pantoprazole Sodium (Protonix -) 20 mg PO DAILY [facility] Last Admin: 06/13/18 09:12 Dose: 20 mg Polyethylene Glycol (Miralax (For Daily Use) -) 17 gm PO BID [facility] Last Admin: 06/13/18 09:13 Dose: Not Given Roflumilast (Daliresp -) 500 mcg PO DAILY [facility] Last Admin: 06/13/18 09:13 Dose: 500 mcg Rosuvastatin Calcium (Crestor -) 5 mg PO HS [facility] Last Admin: 06/12/18 21:38 Dose: 5 mg Sodium Chloride ([place] Nasal [place] -) 2 spray NS BID [facility] Last Admin: 06/13/18 09:14 Dose: 2 spray Tiotropium [place] (Spiriva Respimat) 2 puff IH DAILY [facility] Last Admin: 06/13/18 09:14 Dose: 2 puff Valacyclovir HCl (Valtrex -) 500 mg PO BID [facility] Last Admin: 06/13/18 09:12 Dose: 500 mg - Objective Vital Signs: Vital Signs Temperature 97.8 F 06/13/18 09:54 Pulse Rate 103 H 06/13/18 09:54 Respiratory Rate 20 06/13/18 09:54 Blood Pressure 118/62 06/13/18 09:54 O2 Sat by Pulse Oximetry (%) 94 L 06/13/18 08:01 Constitutional: Yes: No Distress, Calm Eyes: Yes: Conjunctiva Clear HENT: Yes: Atraumatic Neck: Yes: Supple Cardiovascular: Yes: Regular Rate and Rhythm Respiratory: Yes: Rales Gastrointestinal: Yes: Soft. No: Distention Genitourinary: No: CVA Tenderness - Left, CVA Tenderness - Right Musculoskeletal: No: Joint Stiffness, Joint Swelling Extremities: No: Cold, Cool, Cyanosis Edema: No Integumentary: Yes: Bruising. No: Rash, Venous Stasis Changes Neurological: Yes: WNL, Alert, Oriented, Weakness (general). No: Confusion, Tremors ...Motor Strength: WNL Psychiatric: Yes: WNL, Alert, Oriented. No: Agitated, Suicidal Ideation Labs: CBC, BMP 06/13/18 06:15 06/13/18 06:15 INR, PTT INR 0.97 (0.83-1.09) 05/19/18 16:15 - ....Imaging Other: Report Reviewed Assessment/Plan The patient is a 57F w/ a history of severe advanced COPD O2 dependant and frequent Bipap use, HTN, CAD, hypothyroidism admitted with acute on chronic COPD exacerbation. s/p Fall. Sinusitis, PNA acute on chronic exacerbation of COPD; anemia; pulmonary f/u; again on IV steroids; Bipap to use it as ordered; antibiotics IV levaquin for R parotitis, CXR possible LLL PNA; ID & ENT f/u weakness: neurology f/u; needs intensive PT rehab dw pt and d/w staff back pain: rheum eval; neurology f/u; LS xrays. valtrex po for lip herpes - improving miralax prn constipation gastric pfx while on steroids; BGM and GLU control while on steroids R hand hematoma and bruises and R eye conjunctival small medial hematoma improved; restart sq heparin, hold ASA labs f/u falls decubs DVT PFX do not get OOB alone dw pt; turn ion bed q1-2 h to prevent decubs d/w pt and staff; prognosis guarded
[2018-06-13] MEDS ORDERED: LEVOTHYROXINE NA 75 MCG TABLET (FP) PO SCH (11:32)
--- NOTE | 2018-06-13 12:03 | PN ---
Progress Note (short form) - Note Progress Note: less tearful still with amaral 2 bms yesterday alert comfortable pen allergy- welts Vital Signs Period Temp Pulse Resp BP Sys/Domínguez Pulse Ox Last 24 Hr 97.7 F-98.3 F 81-103 20-22 99-118/56-62 93-96 cor-rrr lungs- decreased at bases abd soft, nt ext echymoses both arms CBC, BMP 06/13/18 06:15 06/13/18 06:15 Microbiology 05/27/18 21:17 Urine - Urine Clean Catch Urine Culture - Final Enterococcus Faecalis 05/25/18 18:47 Urine For Antigen Detection Legionella Antigen - Final 05/25/18 18:47 Urine For Antigen Detection Streptococcus pneumoniae Antigen (M - Final 05/19/18 16:27 Blood - Peripheral Venous Blood Culture - Final NO GROWTH AFTER 5 DAYS INCUBATION 05/19/18 16:27 Blood - Peripheral Venous Blood Culture - Final NO GROWTH AFTER 5 DAYS INCUBATION 05/20/18 13:35 Urine - Urine Clean Catch Urine Culture - Final Enterococcus Faecalis Current Medications Acetaminophen (Tylenol -) 650 mg PO Q6H PRN PRN Reason: PAIN 1-7 Last Admin: 06/13/18 09:33 Dose: 650 mg Albuterol Sulfate (Ventolin 0.083% Nebulizer Soln -) 1 amp NEB Q8H PRN PRN Reason: SHORT OF BREATH/WHEEZING Last Admin: 06/12/18 08:33 Dose: 1 amp Albuterol Sulfate (Ventolin Hfa Inhaler -) 1 puff IH Q6H PRN PRN Reason: ASTHMA Last Admin: 06/06/18 10:31 Dose: 1 puff Arformoterol Tartrate (Brovana (Restricted To Pulmonology/Resp) -) 1 amp NEB RBID [facility] Last Admin: 06/13/18 08:00 Dose: 1 amp Escitalopram Oxalate (Lexapro -) 5 mg PO DAILY [facility] Last Admin: 06/13/18 09:12 Dose: 5 mg Heparin Sodium (Porcine) (Heparin -) 5,000 unit SQ BID [facility] Insulin Aspart (Novolog Vial Sliding Scale -) 1 vial SQ ACHS [facility]; Protocol Last Admin: 06/13/18 11:44 Dose: Not Given Lactobacillus Acidophilus (Bacid -) 1 tab PO DAILY [facility] Last Admin: 06/13/18 09:12 Dose: 1 tab Levothyroxine Sodium (Synthroid -) 75 mcg PO DAILY@0700 [facility] Losartan Potassium (Cozaar -) 25 mg PO DAILY [facility] Methylprednisolone Sodium Succinate (Solu-Medrol -) 30 mg IVPUSH BID [facility] Last Admin: 06/13/18 09:13 Dose: 30 mg Montelukast Sodium (Singulair -) 10 mg PO HS [facility] Last Admin: 06/12/18 21:37 Dose: 10 mg Pantoprazole Sodium (Protonix -) 20 mg PO DAILY [facility] Last Admin: 06/13/18 09:12 Dose: 20 mg Polyethylene Glycol (Miralax (For Daily Use) -) 17 gm PO BID [facility] Last Admin: 06/13/18 09:13 Dose: Not Given Roflumilast (Daliresp -) 500 mcg PO DAILY [facility] Last Admin: 06/13/18 09:13 Dose: 500 mcg Rosuvastatin Calcium (Crestor -) 5 mg PO HS [facility] Last Admin: 06/12/18 21:38 Dose: 5 mg Sodium Chloride ([place] Nasal [place] -) 2 spray NS BID [facility] Last Admin: 06/13/18 09:14 Dose: 2 spray Tiotropium [place] (Spiriva Respimat) 2 puff IH DAILY [facility] Last Admin: 06/13/18 09:14 Dose: 2 puff Valacyclovir HCl (Valtrex -) 500 mg PO BID [facility] Last Admin: 06/13/18 09:12 Dose: 500 mg a/p weakness- I suspect due to steroids, ?steroid myopathy-cpk and aldolase pending consider Physical medicine evaluation stable off antibiotics parotitis appears resolved- cxray appears stable would switch to valtrex- oral hsv copd exacerbation-remains on solumedrol leukocytosis secondary to steroids urinary retention- amaral in place pen allergy noted repeat blood cultures for fever or leukocytosis
--- NOTE | 2018-06-13 13:01 | PN ---
Progress Note, Physician History of Present Illness: Resting comfortably. Non-productive cough, wheezing and dyspnea slowly improving. Right facial swelling improving. - Current Medication List Current Medications: Active Medications Acetaminophen (Tylenol -) 650 mg PO Q6H PRN PRN Reason: PAIN 1-7 Last Admin: 06/13/18 09:33 Dose: 650 mg Albuterol Sulfate (Ventolin 0.083% Nebulizer Soln -) 1 amp NEB Q8H PRN PRN Reason: SHORT OF BREATH/WHEEZING Last Admin: 06/12/18 08:33 Dose: 1 amp Albuterol Sulfate (Ventolin Hfa Inhaler -) 1 puff IH Q6H PRN PRN Reason: ASTHMA Last Admin: 06/06/18 10:31 Dose: 1 puff Arformoterol Tartrate (Brovana (Restricted To Pulmonology/Resp) -) 1 amp NEB RBID [facility] Last Admin: 06/13/18 08:00 Dose: 1 amp Escitalopram Oxalate (Lexapro -) 5 mg PO DAILY [facility] Last Admin: 06/13/18 09:12 Dose: 5 mg Heparin Sodium (Porcine) (Heparin -) 5,000 unit SQ BID [facility] Insulin Aspart (Novolog Vial Sliding Scale -) 1 vial SQ ACHS [facility]; Protocol Last Admin: 06/13/18 11:44 Dose: Not Given Lactobacillus Acidophilus (Bacid -) 1 tab PO DAILY [facility] Last Admin: 06/13/18 09:12 Dose: 1 tab Levothyroxine Sodium (Synthroid -) 75 mcg PO DAILY@0700 [facility] Losartan Potassium (Cozaar -) 25 mg PO DAILY [facility] Methylprednisolone Sodium Succinate (Solu-Medrol -) 30 mg IVPUSH BID [facility] Last Admin: 06/13/18 09:13 Dose: 30 mg Montelukast Sodium (Singulair -) 10 mg PO HS [facility] Last Admin: 06/12/18 21:37 Dose: 10 mg Pantoprazole Sodium (Protonix -) 20 mg PO DAILY [facility] Last Admin: 06/13/18 09:12 Dose: 20 mg Polyethylene Glycol (Miralax (For Daily Use) -) 17 gm PO BID [facility] Last Admin: 06/13/18 09:13 Dose: Not Given Roflumilast (Daliresp -) 500 mcg PO DAILY [facility] Last Admin: 06/13/18 09:13 Dose: 500 mcg Rosuvastatin Calcium (Crestor -) 5 mg PO HS [facility] Last Admin: 06/12/18 21:38 Dose: 5 mg Sodium Chloride ([place] Nasal [place] -) 2 spray NS BID [facility] Last Admin: 06/13/18 09:14 Dose: 2 spray Tiotropium [place] (Spiriva Respimat) 2 puff IH DAILY [facility] Last Admin: 06/13/18 09:14 Dose: 2 puff Valacyclovir HCl (Valtrex -) 500 mg PO BID [facility] Last Admin: 06/13/18 09:12 Dose: 500 mg - Objective Vital Signs: Vital Signs Temperature 97.8 F 06/13/18 09:54 Pulse Rate 103 H 06/13/18 09:54 Respiratory Rate 20 06/13/18 09:54 Blood Pressure 118/62 06/13/18 09:54 O2 Sat by Pulse Oximetry (%) 93 L 06/13/18 11:38 Constitutional: Yes: No Distress, Calm Neck: Yes: Supple Cardiovascular: Yes: Regular Rate and Rhythm Respiratory: Yes: Regular, Diminished, On Nasal O2 Gastrointestinal: Yes: Normal Bowel Sounds, Soft, Abdomen, Obese Edema: No Labs: CBC, BMP 06/13/18 06:15 06/13/18 06:15 INR, PTT INR 0.97 (0.83-1.09) 05/19/18 16:15 - ....Imaging Chest X-ray: Report Reviewed (Lt base ATX) Problem List - Problems (1) COPD exacerbation Code(s): J44.1 - CHRONIC OBSTRUCTIVE PULMONARY DISEASE W (ACUTE) EXACERBATION (2) Acute on chronic respiratory failure with hypoxia and hypercapnia Code(s): J96.21 - ACUTE AND CHRONIC RESPIRATORY FAILURE WITH HYPOXIA; J96.22 - ACUTE AND CHRONIC RESPIRATORY FAILURE WITH HYPERCAPNIA (3) Diastolic dysfunction Code(s): I51.9 - HEART DISEASE, UNSPECIFIED (4) Hyperlipidemia Code(s): E78.5 - HYPERLIPIDEMIA, UNSPECIFIED Qualifiers: Hyperlipidemia type: pure hypercholesterolemia Qualified Code(s): E78.00 - Pure hypercholesterolemia, unspecified; E78.0 - Pure hypercholesterolemia (5) Hypertension Code(s): I10 - ESSENTIAL (PRIMARY) HYPERTENSION Qualifiers: Hypertension type: essential hypertension Qualified Code(s): I10 - Essential (primary) hypertension (6) Hypothyroidism Code(s): E03.9 - HYPOTHYROIDISM, UNSPECIFIED Qualifiers: Hypothyroidism type: unspecified Qualified Code(s): E03.9 - Hypothyroidism , unspecified (7) Shortness of breath Code(s): R06.02 - SHORTNESS OF BREATH (8) Sleep apnea Code(s): G47.30 - SLEEP APNEA, UNSPECIFIED Qualifiers: Sleep apnea type: unspecified type Qualified Code(s): G47.30 - Sleep apnea , unspecified (9) Sialadenitis Code(s): K11.20 - SIALOADENITIS, UNSPECIFIED Assessment/Plan CT scan of facial bones reviewed ++right parotid swelling c/w sialadenitis, no nodule right anterior ethmoid cell opacification; bilateral sphenoid sinus air fluid levels right mastoid air cells opacified 1. Acute on chronic hypoxic and hypercapneic respiratory failure 2. Acute home O2-dependent chronic obstructive pulmonary disease exacerbation 3. Bilateral hospital-acquired pneumonia 4. Post toxic metabolic encephalopathy referable to hypercapnea 5. CAD coronary artery calcification angina pectoris 6. Diastolic LV dysfunction with chronic class I NYHA classification LV failure 7. HTN/HCVD 8. Hypercholesterolemia/mixed dyslipidemia 9. Hypothyroidism 10. Right hand hematoma 11. Anemia 12. OSAS 13. 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 ASA 81 qd, Losartan 25 mg QD and Crestor 5 mg QD as tolerated 2. Slow IV steroid taper with GI protection, BD, O2, Singulair, Daliresp, NIPPV AT NIGHT AND PRN, empiric levaquin course 3. DVT and GI prophylaxis 4. SNF once pulmonary status improves
--- NOTE | 2018-06-13 14:46 | PN ---
Progress Note, Physician History of Present Illness: PULMONARY ALERT,FEELING BETTER,-RESP DISTRESS,O2 SAT95% ON NASAL CANNULA - Current Medication List Current Medications: Active Medications Acetaminophen (Tylenol -) 650 mg PO Q6H PRN PRN Reason: PAIN 1-7 Last Admin: 06/13/18 09:33 Dose: 650 mg Albuterol Sulfate (Ventolin 0.083% Nebulizer Soln -) 1 amp NEB Q8H PRN PRN Reason: SHORT OF BREATH/WHEEZING Last Admin: 06/12/18 08:33 Dose: 1 amp Albuterol Sulfate (Ventolin Hfa Inhaler -) 1 puff IH Q6H PRN PRN Reason: ASTHMA Last Admin: 06/06/18 10:31 Dose: 1 puff Arformoterol Tartrate (Brovana (Restricted To Pulmonology/Resp) -) 1 amp NEB RBID [facility] Last Admin: 06/13/18 08:00 Dose: 1 amp Escitalopram Oxalate (Lexapro -) 5 mg PO DAILY [facility] Last Admin: 06/13/18 09:12 Dose: 5 mg Heparin Sodium (Porcine) (Heparin -) 5,000 unit SQ BID [facility] Insulin Aspart (Novolog Vial Sliding Scale -) 1 vial SQ ACHS [facility]; Protocol Last Admin: 06/13/18 11:44 Dose: Not Given Lactobacillus Acidophilus (Bacid -) 1 tab PO DAILY [facility] Last Admin: 06/13/18 09:12 Dose: 1 tab Levothyroxine Sodium (Synthroid -) 75 mcg PO DAILY@0700 [facility] Losartan Potassium (Cozaar -) 25 mg PO DAILY [facility] Methylprednisolone Sodium Succinate (Solu-Medrol -) 30 mg IVPUSH BID [facility] Last Admin: 06/13/18 09:13 Dose: 30 mg Montelukast Sodium (Singulair -) 10 mg PO HS [facility] Last Admin: 06/12/18 21:37 Dose: 10 mg Pantoprazole Sodium (Protonix -) 20 mg PO DAILY [facility] Last Admin: 06/13/18 09:12 Dose: 20 mg Polyethylene Glycol (Miralax (For Daily Use) -) 17 gm PO BID [facility] Last Admin: 06/13/18 09:13 Dose: Not Given Roflumilast (Daliresp -) 500 mcg PO DAILY [facility] Last Admin: 06/13/18 09:13 Dose: 500 mcg Rosuvastatin Calcium (Crestor -) 5 mg PO HS [facility] Last Admin: 06/12/18 21:38 Dose: 5 mg Sodium Chloride ([place] Nasal [place] -) 2 spray NS BID [facility] Last Admin: 06/13/18 09:14 Dose: 2 spray Tiotropium [place] (Spiriva Respimat) 2 puff IH DAILY [facility] Last Admin: 06/13/18 09:14 Dose: 2 puff Valacyclovir HCl (Valtrex -) 500 mg PO BID [facility] Last Admin: 06/13/18 09:12 Dose: 500 mg - Objective Vital Signs: Vital Signs Temperature 98.1 F 06/13/18 13:12 Pulse Rate 87 06/13/18 13:12 Respiratory Rate 18 06/13/18 13:12 Blood Pressure 102/59 L 06/13/18 13:12 O2 Sat by Pulse Oximetry (%) 93 L 06/13/18 14:31 Constitutional: Yes: Well Nourished, Calm Eyes: Yes: WNL HENT: Yes: WNL Neck: Yes: WNL Cardiovascular: Yes: Regular Rate and Rhythm, S1, S2 Respiratory: Yes: Diminished Gastrointestinal: Yes: Normal Bowel Sounds, Soft Extremities: Yes: WNL Edema: No Labs: CBC, BMP 06/13/18 06:15 06/13/18 06:15 INR, PTT INR 0.97 (0.83-1.09) 05/19/18 16:15 Problem List - Problems (1) Altered mental status Code(s): R41.82 - ALTERED MENTAL STATUS, UNSPECIFIED Qualifiers: Altered mental status type: disorientation Qualified Code(s): R41.0 - Disorientation, unspecified (2) COPD exacerbation Code(s): J44.1 - CHRONIC OBSTRUCTIVE PULMONARY DISEASE W (ACUTE) EXACERBATION (3) Acute on chronic respiratory failure with hypoxia and hypercapnia Code(s): J96.21 - ACUTE AND CHRONIC RESPIRATORY FAILURE WITH HYPOXIA; J96.22 - ACUTE AND CHRONIC RESPIRATORY FAILURE WITH HYPERCAPNIA (4) CHF (congestive heart failure) Code(s): I50.9 - HEART FAILURE, UNSPECIFIED (5) COPD exacerbation Code(s): J44.1 - CHRONIC OBSTRUCTIVE PULMONARY DISEASE W (ACUTE) EXACERBATION (6) Diastolic dysfunction Code(s): I51.9 - HEART DISEASE, UNSPECIFIED (7) Sleep apnea Code(s): G47.30 - SLEEP APNEA, UNSPECIFIED Qualifiers: Sleep apnea type: unspecified type Qualified Code(s): G47.30 - Sleep apnea , unspecified Assessment/Plan IMP ACUTE ON CHRONIC HYPOXEMIC HYPERCAPNEIC RESPIRATORY FAILURE COPD O2 DEPENDENT PNEUMONIA ALTERED MENTAL STATUS CHF HYPOTHYROID NAVDEEP R PAROTID SWELLING STEROID MYOPATHY PLAN CONTINUE MEDROL TAPER INHALED BRONCHODILATORS O2 BIPAP AT NIGHT AND PRN Problem List - Problems (1) Altered mental status Code(s): R41.82 - ALTERED MENTAL STATUS, UNSPECIFIED Qualifiers: Altered mental status type: disorientation Qualified Code(s): R41.0 - Disorientation, unspecified (2) COPD exacerbation Code(s): J44.1 - CHRONIC OBSTRUCTIVE PULMONARY DISEASE W (ACUTE) EXACERBATION (3) Acute on chronic respiratory failure with hypoxia and hypercapnia Code(s): J96.21 - ACUTE AND CHRONIC RESPIRATORY FAILURE WITH HYPOXIA; J96.22 - ACUTE AND CHRONIC RESPIRATORY FAILURE WITH HYPERCAPNIA (4) CHF (congestive heart failure) Code(s): I50.9 - HEART FAILURE, UNSPECIFIED (5) COPD exacerbation Code(s): J44.1 - CHRONIC OBSTRUCTIVE PULMONARY DISEASE W (ACUTE) EXACERBATION (6) Diastolic dysfunction Code(s): I51.9 - HEART DISEASE, UNSPECIFIED (7) Sleep apnea Code(s): G47.30 - SLEEP APNEA, UNSPECIFIED
[2018-06-13] MEDS: LIDOCAINE 5% TOPICAL PATCH TP SCH (17:02)
[2018-06-13] MEDS: ROSUVASTATIN CA 5 MG TABLET (FP) PO SCH (22:28)
[2018-06-13] MEDS: MONTELUKAST NA 10 MG TABLET PO SCH (22:29)
[2018-06-13] MEDS: HEPARIN NA (PORCINE) 5,000 UNITS/ML 1ML VIAL SQ SCH (22:29)
[2018-06-14] MEDS ORDERED: PT OWN MED DRAWER 7, Y5N ONE ×2 (00:15→06:29)
[2018-06-14] MEDS: metFORMIN HCL 500 MG TABLET (FP) PO SCH (06:14)
[2018-06-14] MEDS: LEVOTHYROXINE NA 75 MCG TABLET (FP) PO SCH (06:15)
[2018-06-14] MEDS: INSULIN SLIDING SCALE (NOVOLOG) 1 VIAL SQ SCH ×4 (06:15→22:24)
[2018-06-14] MEDS ORDERED: INSULIN (LEVEMIR) 100 UNITS/ML UNITS SQ ONE (06:28)
[2018-06-14] MEDS ORDERED: INSULIN (NOVOLOG) ASPART 100 UNITS/ML 10ML VIAL ONE (06:29)
--- NOTE | 2018-06-14 06:56 | PN ---
Progress Note, Physician Chief Complaint: no new c/o looks better rheum eval pending, and PT eval dr Mast appreciated - Current Medication List Current Medications: Active Medications Acetaminophen (Tylenol -) 650 mg PO Q6H PRN PRN Reason: PAIN 1-7 Last Admin: 06/13/18 22:36 Dose: 650 mg Albuterol Sulfate (Ventolin 0.083% Nebulizer Soln -) 1 amp NEB Q8H PRN PRN Reason: SHORT OF BREATH/WHEEZING Last Admin: 06/12/18 08:33 Dose: 1 amp Albuterol Sulfate (Ventolin Hfa Inhaler -) 1 puff IH Q6H PRN PRN Reason: ASTHMA Last Admin: 06/06/18 10:31 Dose: 1 puff Arformoterol Tartrate (Brovana (Restricted To Pulmonology/Resp) -) 1 amp NEB RBID [facility] Last Admin: 06/13/18 20:33 Dose: 1 amp Escitalopram Oxalate (Lexapro -) 5 mg PO DAILY [facility] Last Admin: 06/13/18 09:12 Dose: 5 mg Heparin Sodium (Porcine) (Heparin -) 5,000 unit SQ BID [facility] Last Admin: 06/13/18 22:29 Dose: 5,000 unit Insulin Aspart (Novolog Vial Sliding Scale -) 1 vial SQ [facility]; Protocol Last Admin: 06/14/18 06:15 Dose: 2 units Lactobacillus Acidophilus (Bacid -) 1 tab PO DAILY [facility] Last Admin: 06/13/18 09:12 Dose: 1 tab Levothyroxine Sodium (Synthroid -) 75 mcg PO DAILY@0700 [facility] Last Admin: 06/14/18 06:15 Dose: 75 mcg Lidocaine (Lidoderm Patch -) 1 patch TP DAILY [facility] Last Admin: 06/13/18 17:02 Dose: 1 patch Losartan Potassium (Cozaar -) 25 mg PO DAILY [facility] Metformin HCl (Glucophage -) 500 mg PO DAILY@0700 [facility] Last Admin: 06/14/18 06:14 Dose: 500 mg Methylprednisolone Sodium Succinate (Solu-Medrol -) 30 mg IVPUSH BID [facility] Last Admin: 06/13/18 22:29 Dose: 30 mg Montelukast Sodium (Singulair -) 10 mg PO HS [facility] Last Admin: 06/13/18 22:29 Dose: 10 mg Pantoprazole Sodium (Protonix -) 20 mg PO DAILY [facility] Last Admin: 06/13/18 09:12 Dose: 20 mg Polyethylene Glycol (Miralax (For Daily Use) -) 17 gm PO BID [facility] Last Admin: 06/13/18 22:29 Dose: Not Given Roflumilast (Daliresp -) 500 mcg PO DAILY [facility] Last Admin: 06/13/18 09:13 Dose: 500 mcg Rosuvastatin Calcium (Crestor -) 5 mg PO HS [facility] Last Admin: 06/13/18 22:28 Dose: 5 mg Sodium Chloride ([place] Nasal [place] -) 2 spray NS BID [facility] Last Admin: 06/13/18 22:31 Dose: 2 spray Tiotropium [place] (Spiriva Respimat) 2 puff IH DAILY [facility] Last Admin: 06/13/18 09:14 Dose: 2 puff Valacyclovir HCl (Valtrex -) 500 mg PO BID [facility] Last Admin: 06/13/18 22:29 Dose: 500 mg - Objective Vital Signs: Vital Signs Temperature 98.2 F 06/14/18 05:55 Pulse Rate 89 06/14/18 05:55 Respiratory Rate 20 06/14/18 05:55 Blood Pressure 120/68 06/14/18 05:55 O2 Sat by Pulse Oximetry (%) 95 06/14/18 00:05 Constitutional: Yes: No Distress, Calm Eyes: Yes: Conjunctiva Clear HENT: Yes: Atraumatic Neck: Yes: Supple Cardiovascular: Yes: Regular Rate and Rhythm Respiratory: Yes: CTA Bilaterally, Diminished Gastrointestinal: Yes: Soft. No: Distention Genitourinary: No: CVA Tenderness - Left, CVA Tenderness - Right Musculoskeletal: No: Joint Stiffness, Joint Swelling Extremities: No: Cold, Cool, Cyanosis Edema: No Integumentary: No: Rash, Venous Stasis Changes Neurological: Yes: WNL, Alert. No: Oriented, Confusion, Tremors ...Motor Strength: WNL Psychiatric: Yes: WNL, Alert. No: Oriented, Agitated, Suicidal Ideation Labs: CBC, BMP 06/13/18 06:15 06/13/18 06:15 INR, PTT INR 0.97 (0.83-1.09) 05/19/18 16:15 - ....Imaging Other: Report Reviewed Assessment/Plan The patient is a 57F w/ a history of severe advanced COPD O2 dependant and frequent Bipap use, HTN, CAD, hypothyroidism admitted with acute on chronic COPD exacerbation. s/p Fall. Sinusitis, PNA acute on chronic exacerbation of COPD; anemia; pulmonary f/u; again on IV steroids; Bipap to use it as ordered; weakness: neurology f/u; needs intensive PT rehab dw pt and d/w staff back pain: rheum eval; neurology f/u; LS xrays. PT rehab eval valtrex po for lip herpes - improving miralax prn constipation gastric pfx while on steroids; BGM and GLU control while on steroids R hand hematoma and bruises and R eye conjunctival small medial hematoma improved; restart sq heparin, hold ASA labs f/u falls decubs DVT PFX do not get OOB alone dw pt; turn ion bed q1-2 h to prevent decubs d/w pt and staff; prognosis guarded
[2018-06-14] MEDS: ARFORMOTEROL TARTRATE 15 MCG/2 ML VIAL NEB SCH ×2 (07:30→20:10)
--- NOTE | 2018-06-14 08:55 | PN ---
Progress Note (short form) - Note Progress Note: Neurology History of Present Illness 57F w/ a history of COPD (2L NC at home), HTN, CAD, hypothyroidism who presents from [facility] for evaluation of increasing respiratory distress and associated confusion/lethargy. The patient was recently admitted for a COPD exacerbation. According to notes the family reported when the patient is having an exacerbation, it is typical for her to become confused. She was admitted and Pulmonary following closely. L spine Xray reviewed, no fractures or dislocations. Neurologically without focal deficits. Getting ongoing medical mgmt. Is able to tell me she's at [place], mental status appears at baseline. States she has not been getting out of bed or ambulating very much. Allergies/Adverse Reactions: Allergies Allergy/AdvReac Type Severity Reaction Status Date / Time Penicillins Allergy Severe Difficulty Verified 05/19/18 16:04 Breathing Active Medications Acetaminophen (Tylenol -) 650 mg PO Q6H PRN PRN Reason: PAIN 1-7 Last Admin: 06/13/18 22:36 Dose: 650 mg Albuterol Sulfate (Ventolin 0.083% Nebulizer Soln -) 1 amp NEB Q8H PRN PRN Reason: SHORT OF BREATH/WHEEZING Last Admin: 06/12/18 08:33 Dose: 1 amp Albuterol Sulfate (Ventolin Hfa Inhaler -) 1 puff IH Q6H PRN PRN Reason: ASTHMA Last Admin: 06/06/18 10:31 Dose: 1 puff Arformoterol Tartrate (Brovana (Restricted To Pulmonology/Resp) -) 1 amp NEB RBID [facility] Last Admin: 06/14/18 07:30 Dose: 1 amp Escitalopram Oxalate (Lexapro -) 5 mg PO DAILY [facility] Last Admin: 06/13/18 09:12 Dose: 5 mg Heparin Sodium (Porcine) (Heparin -) 5,000 unit SQ BID [facility] Last Admin: 06/13/18 22:29 Dose: 5,000 unit Insulin Aspart (Novolog Vial Sliding Scale -) 1 vial SQ ACHS [facility]; Protocol Last Admin: 06/14/18 06:15 Dose: 2 units Lactobacillus Acidophilus (Bacid -) 1 tab PO DAILY [facility] Last Admin: 06/13/18 09:12 Dose: 1 tab Levothyroxine Sodium (Synthroid -) 75 mcg PO DAILY@0700 [facility] Last Admin: 06/14/18 06:15 Dose: 75 mcg Lidocaine (Lidoderm Patch -) 1 patch TP DAILY [facility] Last Admin: 06/13/18 17:02 Dose: 1 patch Losartan Potassium (Cozaar -) 25 mg PO DAILY [facility] Metformin HCl (Glucophage -) 500 mg PO DAILY@0700 [facility] Last Admin: 06/14/18 06:14 Dose: 500 mg Methylprednisolone Sodium Succinate (Solu-Medrol -) 30 mg IVPUSH BID [facility] Last Admin: 06/13/18 22:29 Dose: 30 mg Montelukast Sodium (Singulair -) 10 mg PO HS [facility] Last Admin: 06/13/18 22:29 Dose: 10 mg Pantoprazole Sodium (Protonix -) 20 mg PO DAILY [facility] Last Admin: 06/13/18 09:12 Dose: 20 mg Polyethylene Glycol (Miralax (For Daily Use) -) 17 gm PO BID [facility] Last Admin: 06/13/18 22:29 Dose: Not Given Roflumilast (Daliresp -) 500 mcg PO DAILY [facility] Last Admin: 06/13/18 09:13 Dose: 500 mcg Rosuvastatin Calcium (Crestor -) 5 mg PO HS [facility] Last Admin: 06/13/18 22:28 Dose: 5 mg Sodium Chloride ([place] Nasal [place] -) 2 spray NS BID [facility] Last Admin: 06/13/18 22:31 Dose: 2 spray Tiotropium [place] (Spiriva Respimat) 2 puff IH DAILY [facility] Last Admin: 06/13/18 09:14 Dose: 2 puff Valacyclovir HCl (Valtrex -) 500 mg PO BID [facility] Last Admin: 06/13/18 22:29 Dose: 500 mg *Physical Exam Vital Signs Period Temp Pulse Resp BP Sys/Domínguez Pulse Ox Last 24 Hr 97.8 F-98.3 F 85-103 18-20 102-120/55-68 93-99 GENERAL: Awake, easily arousable to voice, oriented to self, not telling me location, month, or year HEAD: No signs of trauma, normocephalic, atraumatic EYES: PERRLA, EOMI ENT: Hearing grossly normal, nares patent, oropharynx clear without exudates. Moist mucosa LUNGS: on 4LNC (2LNC at home); moderate diffuse wheeze b/l HEART: Tachycardia with regular rhythm, normal S1 and S2, no murmurs appreciated , peripheral pulses normal and equal bilaterally ABDOMEN: Soft, nontender, normoactive bowel sounds. No guarding, no rebound EXTREMITIES : 2+ BLE edema to knee; RUE hand and forearm hematoma, Normal range of motion NEUROLOGICAL: Cranial nerves II through XII grossly intact. no focal sensorimotor deficits, finger to nose normal, gait deferred CBCD WBC 10.0 K/mm3 (4.0-10.0) 06/13/18 06:15 RBC 3.15 M/mm3 (3.60-5.2) L 06/13/18 06:15 Hgb 9.4 GM/dL (10.7-15.3) L 06/13/18 06:15 Hct 29.3 % (32.4-45.2) L 06/13/18 06:15 MCV 93.1 fl (80-96) 06/13/18 06:15 MCHC 31.9 g/dl (32.0-36.0) L 06/13/18 06:15 RDW 14.5 % (11.6-15.6) 06/13/18 06:15 Plt Count 176 K/MM3 (134-434) 06/13/18 06:15 MPV 8.2 fl (7.5-11.1) 06/13/18 06:15 CMP Sodium 139 mmol/L (136-145) 06/13/18 06:15 Potassium 3.9 mmol/L (3.5-5.1) 06/13/18 06:15 Chloride 93 mmol/L (98-107) L 06/13/18 06:15 Carbon Dioxide 44 mmol/L (21-32) H 06/13/18 06:15 Anion Gap 2 MMOL/L (8-16) L 06/13/18 06:15 BUN 20 mg/dL (7-18) H 06/13/18 06:15 Creatinine 0.3 mg/dL (0.55-1.3) L 06/13/18 06:15 Creat Clearance w eGFR > 60 (>60) 06/13/18 06:15 Random Glucose 91 mg/dL (74-106) 06/13/18 06:15 Calcium 8.3 mg/dL (8.5-10.1) L 06/13/18 06:15 Total Bilirubin 0.5 mg/dL (0.2-1) 06/12/18 08:05 AST 25 U/L (15-37) 06/12/18 08:05 ALT 38 U/L (13-61) 06/12/18 08:05 Alkaline Phosphatase 136 U/L (45-117) H 06/12/18 08:05 Total Protein 5.2 g/dl (6.4-8.2) L 06/12/18 08:05 Albumin 2.3 g/dl (3.4-5.0) L 06/12/18 08:05 CARDIAC ENZYMES Creatine Kinase 14 IU/L (26-192) L 06/13/18 06:15 Troponin I 0.05 ng/ml (0.00-0.05) 05/25/18 05:30 Medical Decision Making 57F w/ a history of COPD (2L NC at home), HTN, CAD, hypothyroidism who presents from [facility] for evaluation of increasing respiratory distress and associated confusion/lethargy. The patient was recently admitted for a COPD exacerbation. According to notes the family reported when the patient is having an exacerbation, it is typical for her to become confused. She was admitted and Pulmonary following closely. Repeat CT head completed and without acute changes. ENT note reviewed. Is alert and interactive now, neurologically stable. Likely AMS, Toxic metabolic encephalopathy 2/2 respiratory distress, continue optimization of COPD. Increased hydration, monitor BP, maintain normotensive range. Fall precautions, physical therapy as tolerated, increased activity as able to avoid deconditioning. L spine X ray reviewed. Will benefit from outpatient rehab. Mental status at baseline, dispo planning as per case mgmt.
[2018-06-14] MEDS: methylPREDNISolone NA SUCC 40 MG/1 ML VIAL IVPUSH SCH ×2 (09:36→22:23)
[2018-06-14] MEDS: PANTOPRAZOLE 20 MG TABLET (FP) PO SCH (09:37)
[2018-06-14] MEDS: ESCITALOPRAM OXALATE 10 MG TABLET (FP) PO SCH (09:37)
[2018-06-14] MEDS: LACTOBACILLUS ACIDOPHILUS 1 TABLET PO SCH (09:37)
[2018-06-14] MEDS: LOSARTAN POTASSIUM 25 MG TABLET PO SCH (09:37)
[2018-06-14] MEDS: LIDOCAINE 5% TOPICAL PATCH TP SCH (09:37)
[2018-06-14] MEDS: POLYETHYLENE GLYCOL 3350 119 GM BTL PO SCH ×2 (09:38→22:23)
[2018-06-14] MEDS: ROFLUMILAST 500 MCG TABLET PO SCH (09:38)
[2018-06-14] MEDS: HEPARIN NA (PORCINE) 5,000 UNITS/ML 1ML VIAL SQ SCH ×2 (09:38→22:22)
[2018-06-14] MEDS: TIOTROPIUM BROMIDE 2.5 MCG (SPIRIVA) RESPIMAT INHALER IH SCH (09:45)
[2018-06-14] MEDS: SODIUM CHLORIDE NASAL SPRAY 44 ML BOTTLE NS SCH ×2 (09:45→22:23)
[2018-06-14] MEDS: valACYclovir HCL 500 MG TABLET (FP) PO SCH ×2 (09:50→22:22)
[2018-06-14] MEDS ORDERED: LIDOCAINE 5% TOPICAL PATCH TP SCH (10:00)
--- NOTE | 2018-06-14 11:42 | PN ---
Progress Note (short form) - Note Progress Note: alert pen allergy- mian Vital Signs Period Temp Pulse Resp BP Sys/Domínguez Pulse Ox Last 24 Hr 98.0 F-98.3 F 85-97 18-20 102-120/55-68 93-98 cor-rrr lungs bilateral rhonchi abd soft,nt ext +ecchymoses amaral CBC, BMP 06/13/18 06:15 06/13/18 06:15 Microbiology 05/27/18 21:17 Urine - Urine Clean Catch Urine Culture - Final Enterococcus Faecalis 05/25/18 18:47 Urine For Antigen Detection Legionella Antigen - Final 05/25/18 18:47 Urine For Antigen Detection Streptococcus pneumoniae Antigen (M - Final 05/19/18 16:27 Blood - Peripheral Venous Blood Culture - Final NO GROWTH AFTER 5 DAYS INCUBATION 05/19/18 16:27 Blood - Peripheral Venous Blood Culture - Final NO GROWTH AFTER 5 DAYS INCUBATION 05/20/18 13:35 Urine - Urine Clean Catch Urine Culture - Final Enterococcus Faecalis a/p weakness- I suspect due to steroids, ?steroid myopathy-cpk normal, aldolase pending consider Physical medicine evaluation stable off antibiotics parotitis appears resolved- cxray appears stable oral hsv- continue valtrex copd exacerbation-remains on solumedrol leukocytosis secondary to steroids urinary retention- amaral in place-would consider d/c and observe pen allergy noted repeat blood cultures for fever or leukocytosis please call back if needed
--- NOTE | 2018-06-14 12:01 | CONS ---
DATE OF CONSULTATION: DATE OF DICTATION: 06/14/2018 PHYSICAL MEDICINE REHABILITATION CONSULTATION Patient is a 57-year-old woman who has past medical history of COPD oxygen dependent, multiple COPD exacerbations, recently discharged from [facility] to a snf facility for pulmonary rehab who was readmitted due to increasing respiratory distress, confusion, lethargy. Patient has been hospitalized for past 4 weeks. She has been evaluated by physical therapy. She complains of generalized pain including back pain, undergoing x-rays of the lumbar spine on June 13 which showed some atelectasis or infiltrate at the left base unchanged from previous studies. There is also retained stool noted and some degenerative changes with reversal of normal curvature and lumbar lordosis. Patient's most recent blood work, WBC is 10.0, hemoglobin 9.4, platelet count 176. Last chemistry on June 13 showed BUN elevated at 20, low creatinine of 0.3, low chloride 93, CO2 elevated at 44, and calcium low 8.3. C-reactive protein slightly elevated at 0.4. B12 of 1282. Patient is seen in rehabilitation. REVIEW OF PAST MEDICAL HISTORY AND SURGICAL HISTORY: As above. Also a history of hypertension, CAD, hypothyroidism, anemia of chronic low back pain, hypothyroidism, obstructive sleep apnea syndrome, hyperlipidemia, congestive heart failure. SOCIAL HISTORY: Former tobacco user quit 8 years ago. Premorbidly patient was modified independent with a walker and oxygen. Current function, she has only been able to do exercise and has declined any standing or ambulation. REVIEW OF SYSTEMS: Generalized pain including back pain. No dizziness, lightheadedness. No chest pain. She is short of breath both at rest and with exertion. She has multiple ecchymotic areas in the upper and lower limbs but no fever or chills. No bowel or bladder incontinence or retention. PHYSICAL EXAMINATION: General: Overweight woman, looking Cushingoid, seen lying in bed in no acute distress. She is lethargic but slightly arousable. HEENT: Normocephalic and atraumatic. Extraocular muscles are intact. Neck: Supple. Extremities: Trace edema. Ecchymotic areas in the upper and lower extremities. Neuromuscular: awake but not oriented. Cranial nerves II through XII grossly intact. Weakness throughout the upper and lower limbs with no focal deficit. Normal sensation to light touch. OVERALL IMPRESSION: 1. Deficits in mobility activities of daily living. 2. Deconditioning. 3. Chronic obstructive pulmonary disease exacerbation. 4. Diffuse pain and chronic low back pain. 5. Hypertension. 6. Hyperlipidemia. 7. Obstructive sleep apnea syndrome. 8. Anemia. 9. Elevated risk for deep vein thrombosis due to immobility. 10. Hypoalbuminemia. 11. Electrolyte abnormalities. PLAN/SUGGESTIONS: 1. Supportive care. 2. Continue physical therapy at the bedside. 3. Wean steroids as able. 4. Subcu heparin for DVT prophylaxis. 5. Skin precautions. 6. Dietary consultation. 7. Avoid heel/sacral pressure. 8. Short-term rehab in a snf facility once medically stable. Thank you for this referral. KARI PARKER M.D. [id number]
--- NOTE | 2018-06-14 13:16 | PN ---
Progress Note, Physician History of Present Illness: Resting comfortably. Non-productive cough, wheezing and dyspnea slowly improving. Right facial swelling improving. - Current Medication List Current Medications: Active Medications Acetaminophen (Tylenol -) 650 mg PO Q6H PRN PRN Reason: PAIN 1-7 Last Admin: 06/13/18 22:36 Dose: 650 mg Albuterol Sulfate (Ventolin 0.083% Nebulizer Soln -) 1 amp NEB Q8H PRN PRN Reason: SHORT OF BREATH/WHEEZING Last Admin: 06/12/18 08:33 Dose: 1 amp Albuterol Sulfate (Ventolin Hfa Inhaler -) 1 puff IH Q6H PRN PRN Reason: ASTHMA Last Admin: 06/06/18 10:31 Dose: 1 puff Arformoterol Tartrate (Brovana (Restricted To Pulmonology/Resp) -) 1 amp NEB RBID [facility] Last Admin: 06/14/18 07:30 Dose: 1 amp Escitalopram Oxalate (Lexapro -) 5 mg PO DAILY [facility] Last Admin: 06/14/18 09:37 Dose: 5 mg Heparin Sodium (Porcine) (Heparin -) 5,000 unit SQ BID [facility] Last Admin: 06/14/18 09:38 Dose: 5,000 unit Insulin Aspart (Novolog Vial Sliding Scale -) 1 vial SQ [facility]; Protocol Last Admin: 06/14/18 06:15 Dose: 2 units Lactobacillus Acidophilus (Bacid -) 1 tab PO DAILY [facility] Last Admin: 06/14/18 09:37 Dose: 1 tab Levothyroxine Sodium (Synthroid -) 75 mcg PO DAILY@0700 [facility] Last Admin: 06/14/18 06:15 Dose: 75 mcg Lidocaine (Lidoderm Patch -) 1 patch TP DAILY [facility] Last Admin: 06/14/18 09:37 Dose: 1 patch Losartan Potassium (Cozaar -) 25 mg PO DAILY [facility] Last Admin: 06/14/18 09:37 Dose: 25 mg Metformin HCl (Glucophage -) 500 mg PO DAILY@0700 [facility] Last Admin: 06/14/18 06:14 Dose: 500 mg Methylprednisolone Sodium Succinate (Solu-Medrol -) 30 mg IVPUSH BID [facility] Last Admin: 06/14/18 09:36 Dose: 30 mg Montelukast Sodium (Singulair -) 10 mg PO [facility] Last Admin: 06/13/18 22:29 Dose: 10 mg Pantoprazole Sodium (Protonix -) 20 mg PO DAILY [facility] Last Admin: 06/14/18 09:37 Dose: 20 mg Polyethylene Glycol (Miralax (For Daily Use) -) 17 gm PO BID [facility] Last Admin: 06/14/18 09:38 Dose: 17 gm Roflumilast (Daliresp -) 500 mcg PO DAILY [facility] Last Admin: 06/14/18 09:38 Dose: 500 mcg Rosuvastatin Calcium (Crestor -) 5 mg PO HS [facility] Last Admin: 06/13/18 22:28 Dose: 5 mg Sodium Chloride ([place] Nasal [place] -) 2 spray NS BID [facility] Last Admin: 06/14/18 09:45 Dose: 2 spray Tiotropium [place] (Spiriva Respimat) 2 puff IH DAILY [facility] Last Admin: 06/14/18 09:45 Dose: 2 puff Valacyclovir HCl (Valtrex -) 500 mg PO BID [facility] Last Admin: 06/14/18 09:50 Dose: 500 mg - Objective Vital Signs: Vital Signs Temperature 98.0 F 06/14/18 09:59 Pulse Rate 87 06/14/18 09:59 Respiratory Rate 20 06/14/18 09:59 Blood Pressure 113/63 06/14/18 09:59 O2 Sat by Pulse Oximetry (%) 98 06/14/18 09:00 Constitutional: Yes: No Distress, Calm Neck: Yes: Supple Cardiovascular: Yes: Regular Rate and Rhythm Respiratory: Yes: Regular, Diminished, On Nasal O2 Gastrointestinal: Yes: Normal Bowel Sounds, Soft Edema: Yes Edema: LLE: Trace, RLE: Trace Labs: CBC, BMP 06/13/18 06:15 06/13/18 06:15 INR, PTT INR 0.97 (0.83-1.09) 05/19/18 16:15 - ....Imaging X-ray: Report Reviewed (Left base changes) Problem List - Problems (1) COPD exacerbation Code(s): J44.1 - CHRONIC OBSTRUCTIVE PULMONARY DISEASE W (ACUTE) EXACERBATION (2) Acute on chronic respiratory failure with hypoxia and hypercapnia Code(s): J96.21 - ACUTE AND CHRONIC RESPIRATORY FAILURE WITH HYPOXIA; J96.22 - ACUTE AND CHRONIC RESPIRATORY FAILURE WITH HYPERCAPNIA (3) Diastolic dysfunction Code(s): I51.9 - HEART DISEASE, UNSPECIFIED (4) Hyperlipidemia Code(s): E78.5 - HYPERLIPIDEMIA, UNSPECIFIED Qualifiers: Hyperlipidemia type: pure hypercholesterolemia Qualified Code(s): E78.00 - Pure hypercholesterolemia, unspecified; E78.0 - Pure hypercholesterolemia (5) Hypertension Code(s): I10 - ESSENTIAL (PRIMARY) HYPERTENSION Qualifiers: Hypertension type: essential hypertension Qualified Code(s): I10 - Essential (primary) hypertension (6) Hypothyroidism Code(s): E03.9 - HYPOTHYROIDISM, UNSPECIFIED Qualifiers: Hypothyroidism type: unspecified Qualified Code(s): E03.9 - Hypothyroidism , unspecified (7) Shortness of breath Code(s): R06.02 - SHORTNESS OF BREATH (8) Sleep apnea Code(s): G47.30 - SLEEP APNEA, UNSPECIFIED Qualifiers: Sleep apnea type: unspecified type Qualified Code(s): G47.30 - Sleep apnea , unspecified (9) Sialadenitis Code(s): K11.20 - SIALOADENITIS, UNSPECIFIED Assessment/Plan CT scan of facial bones reviewed ++right parotid swelling c/w sialadenitis, no nodule right anterior ethmoid cell opacification; bilateral sphenoid sinus air fluid levels right mastoid air cells opacified 1. Acute on chronic hypoxic and hypercapneic respiratory failure 2. Acute home O2-dependent chronic obstructive pulmonary disease exacerbation 3. Bilateral hospital-acquired pneumonia 4. Post toxic metabolic encephalopathy referable to hypercapnea 5. CAD coronary artery calcification angina pectoris 6. Diastolic LV dysfunction with chronic class I NYHA classification LV failure 7. HTN/HCVD 8. Hypercholesterolemia/mixed dyslipidemia 9. Hypothyroidism 10. Right hand hematoma 11. Anemia 12. OSAS/OHS 13. 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 ASA 81 qd, Losartan 25 mg QD and Crestor 5 mg QD as tolerated 2. Slow IV steroid taper with GI protection, BD, O2, Singulair, Daliresp, NIPPV AT NIGHT AND PRN, empiric levaquin course 3. DVT and GI prophylaxis 4. SNF once pulmonary status improves
--- NOTE | 2018-06-14 13:54 | PN ---
Progress Note (short form) - Note Progress Note: PULMONARY Breathing continues to slowly improve. Less cough and wheezing. Vital Signs Period Temp Pulse Resp BP Sys/Domínguez Pulse Ox Last 24 Hr 98.0 F-98.3 F 85-97 20-20 102-120/55-68 93-98 Gen: NAD at rest Heart: RRR Lung: scattered rhonchi Abd: soft, nontender Ext: no edema CBC, BMP 06/13/18 06:15 06/13/18 06:15 Active Medications Acetaminophen (Tylenol -) 650 mg PO Q6H PRN PRN Reason: PAIN 1-7 Last Admin: 06/13/18 22:36 Dose: 650 mg Albuterol Sulfate (Ventolin 0.083% Nebulizer Soln -) 1 amp NEB Q8H PRN PRN Reason: SHORT OF BREATH/WHEEZING Last Admin: 06/12/18 08:33 Dose: 1 amp Albuterol Sulfate (Ventolin Hfa Inhaler -) 1 puff IH Q6H PRN PRN Reason: ASTHMA Last Admin: 06/06/18 10:31 Dose: 1 puff Arformoterol Tartrate (Brovana (Restricted To Pulmonology/Resp) -) 1 amp NEB RBID [facility] Last Admin: 06/14/18 07:30 Dose: 1 amp Escitalopram Oxalate (Lexapro -) 5 mg PO DAILY [facility] Last Admin: 06/14/18 09:37 Dose: 5 mg Heparin Sodium (Porcine) (Heparin -) 5,000 unit SQ BID [facility] Last Admin: 06/14/18 09:38 Dose: 5,000 unit Insulin Aspart (Novolog Vial Sliding Scale -) 1 vial SQ ACHS [facility]; Protocol Last Admin: 06/14/18 06:15 Dose: 2 units Lactobacillus Acidophilus (Bacid -) 1 tab PO DAILY [facility] Last Admin: 06/14/18 09:37 Dose: 1 tab Levothyroxine Sodium (Synthroid -) 75 mcg PO DAILY@0700 [facility] Last Admin: 06/14/18 06:15 Dose: 75 mcg Lidocaine (Lidoderm Patch -) 1 patch TP DAILY [facility] Last Admin: 06/14/18 09:37 Dose: 1 patch Losartan Potassium (Cozaar -) 25 mg PO DAILY [facility] Last Admin: 06/14/18 09:37 Dose: 25 mg Metformin HCl (Glucophage -) 500 mg PO DAILY@0700 [facility] Last Admin: 06/14/18 06:14 Dose: 500 mg Methylprednisolone Sodium Succinate (Solu-Medrol -) 30 mg IVPUSH BID [facility] Last Admin: 06/14/18 09:36 Dose: 30 mg Montelukast Sodium (Singulair -) 10 mg PO HS [facility] Last Admin: 06/13/18 22:29 Dose: 10 mg Pantoprazole Sodium (Protonix -) 20 mg PO DAILY [facility] Last Admin: 06/14/18 09:37 Dose: 20 mg Polyethylene Glycol (Miralax (For Daily Use) -) 17 gm PO BID [facility] Last Admin: 06/14/18 09:38 Dose: 17 gm Roflumilast (Daliresp -) 500 mcg PO DAILY [facility] Last Admin: 06/14/18 09:38 Dose: 500 mcg Rosuvastatin Calcium (Crestor -) 5 mg PO HS [facility] Last Admin: 06/13/18 22:28 Dose: 5 mg Sodium Chloride ([place] Nasal [place] -) 2 spray NS BID [facility] Last Admin: 06/14/18 09:45 Dose: 2 spray Tiotropium [place] (Spiriva Respimat) 2 puff IH DAILY [facility] Last Admin: 06/14/18 09:45 Dose: 2 puff Valacyclovir HCl (Valtrex -) 500 mg PO BID [facility] Last Admin: 06/14/18 09:50 Dose: 500 mg A/P Acute on Chronic Hypoxic and Hypercapneic Respiratory Failure Acute COPD Exacerbation Altered Mental Status likely from Hypercapnea LV Diastolic Dysfunction NAVDEEP/OHS Hypothyroidism Hyperlipidemia - slow steroid taper - inhaled bronchodilators - O2 to keep Spo2 88-92% - BiPAP at night and PRN during day - DVT prophylaxis
[2018-06-14] MEDS: ALBUTEROL SO4 0.083% IH SOL 2.5 MG/3 ML VIAL.NEB. NEB PRN (14:50)
[2018-06-14] MEDS: MONTELUKAST NA 10 MG TABLET PO SCH (22:22)
[2018-06-14] MEDS: ROSUVASTATIN CA 5 MG TABLET (FP) PO SCH (22:22)
[2018-06-14] MEDS: ACETAMINOPHEN 325 MG TABLET (FP) PO PRN (22:23)
[2018-06-15] MEDS: INSULIN SLIDING SCALE (NOVOLOG) 1 VIAL SQ SCH ×4 (06:36→22:33)
[2018-06-15] MEDS: LEVOTHYROXINE NA 75 MCG TABLET (FP) PO SCH (06:38)
[2018-06-15] MEDS: metFORMIN HCL 500 MG TABLET (FP) PO SCH (06:38)
--- NOTE | 2018-06-15 07:15 | PN ---
Progress Note, Physician Chief Complaint: feeling better respiratory handley but getting depressed b/o general weakness, needs help to stand up; dw neurology and rheumatology will check spine CT (pt refused MRI) and EMG. needs intensive PT rehab; will d/w pulm regarding tapering of the steroids R dorsal hand hematoma smaller - Current Medication List Current Medications: Active Medications Acetaminophen (Tylenol -) 650 mg PO Q6H PRN PRN Reason: PAIN 1-7 Last Admin: 06/14/18 22:23 Dose: 650 mg Albuterol Sulfate (Ventolin 0.083% Nebulizer Soln -) 1 amp NEB Q8H PRN PRN Reason: SHORT OF BREATH/WHEEZING Last Admin: 06/14/18 14:50 Dose: 1 amp Albuterol Sulfate (Ventolin Hfa Inhaler -) 1 puff IH Q6H PRN PRN Reason: ASTHMA Last Admin: 06/06/18 10:31 Dose: 1 puff Arformoterol Tartrate (Brovana (Restricted To Pulmonology/Resp) -) 1 amp NEB RBID [facility] Last Admin: 06/14/18 20:10 Dose: 1 amp Escitalopram Oxalate (Lexapro -) 5 mg PO DAILY [facility] Last Admin: 06/14/18 09:37 Dose: 5 mg Heparin Sodium (Porcine) (Heparin -) 5,000 unit SQ BID [facility] Last Admin: 06/14/18 22:22 Dose: 5,000 unit Insulin Aspart (Novolog Vial Sliding Scale -) 1 vial SQ ACHS [facility]; Protocol Last Admin: 06/15/18 06:36 Dose: Not Given Lactobacillus Acidophilus (Bacid -) 1 tab PO DAILY [facility] Last Admin: 06/14/18 09:37 Dose: 1 tab Levothyroxine Sodium (Synthroid -) 75 mcg PO DAILY@0700 [facility] Last Admin: 06/15/18 06:38 Dose: 75 mcg Lidocaine (Lidoderm Patch -) 1 patch TP DAILY [facility] Last Admin: 06/14/18 09:37 Dose: 1 patch Losartan Potassium (Cozaar -) 25 mg PO DAILY [facility] Last Admin: 06/14/18 09:37 Dose: 25 mg Metformin HCl (Glucophage -) 500 mg PO DAILY@0700 [facility] Last Admin: 06/15/18 06:38 Dose: 500 mg Methylprednisolone Sodium Succinate (Solu-Medrol -) 30 mg IVPUSH BID [facility] Last Admin: 06/14/18 22:23 Dose: 30 mg Montelukast Sodium (Singulair -) 10 mg PO HS [facility] Last Admin: 06/14/18 22:22 Dose: 10 mg Pantoprazole Sodium (Protonix -) 20 mg PO DAILY [facility] Last Admin: 06/14/18 09:37 Dose: 20 mg Polyethylene Glycol (Miralax (For Daily Use) -) 17 gm PO BID [facility] Last Admin: 06/14/18 22:23 Dose: 17 gm Roflumilast (Daliresp -) 500 mcg PO DAILY [facility] Last Admin: 06/14/18 09:38 Dose: 500 mcg Rosuvastatin Calcium (Crestor -) 5 mg PO HS [facility] Last Admin: 06/14/18 22:22 Dose: 5 mg Sodium Chloride ([place] Nasal [place] -) 2 spray NS BID [facility] Last Admin: 06/14/18 22:23 Dose: 2 spray Tiotropium [place] (Spiriva Respimat) 2 puff IH DAILY [facility] Last Admin: 06/14/18 09:45 Dose: 2 puff Valacyclovir HCl (Valtrex -) 500 mg PO BID [facility] Last Admin: 06/14/18 22:22 Dose: 500 mg - Objective Vital Signs: Vital Signs Temperature 98 F 06/15/18 06:00 Pulse Rate 81 06/15/18 06:00 Respiratory Rate 20 06/15/18 06:00 Blood Pressure 124/71 06/15/18 06:00 O2 Sat by Pulse Oximetry (%) 96 06/14/18 22:48 Constitutional: Yes: Anxious Eyes: Yes: Conjunctiva Clear HENT: Yes: Atraumatic Neck: Yes: Supple Cardiovascular: Yes: Regular Rate and Rhythm Respiratory: Yes: Diminished Gastrointestinal: Yes: Soft. No: Tenderness Genitourinary: No: CVA Tenderness - Left, CVA Tenderness - Right Musculoskeletal: No: Joint Stiffness, Joint Swelling Extremities: No: Cold, Cool, Cyanosis Edema: No Integumentary: Yes: Bruising. No: Rash, Venous Stasis Changes Neurological: Yes: WNL, Alert, Oriented. No: Confusion, Tremors ...Motor Strength: WNL Psychiatric: Yes: WNL, Alert, Oriented. No: Agitated, Suicidal Ideation Labs: CBC, BMP 06/13/18 06:15 06/13/18 06:15 INR, PTT INR 0.97 (0.83-1.09) 05/19/18 16:15 - ....Imaging Other: Report Reviewed Assessment/Plan The patient is a 57F w/ a history of severe advanced COPD O2 dependant and frequent Bipap use, HTN, CAD, hypothyroidism admitted with acute on chronic COPD exacerbation. s/p Fall. Sinusitis, PNA acute on chronic exacerbation of COPD; anemia; pulmonary f/u; taper steroids; Bipap to use it as ordered; weakness: neurology f/u; needs intensive PT rehab dw pt and d/w staff back pain: rheum eval; neurology f/u; spine CT; PT rehab eval gastric pfx while on steroids; BGM and GLU control while on steroids R hand hematoma and arms bruises (R eye conjunctival small medial hematoma resolved); sq heparin. falls decubs DVT PFX do not get OOB alone dw pt; turn on bed q1-2 h to prevent decubs d/w pt and staff; prognosis guarded
[2018-06-15] MEDS: ARFORMOTEROL TARTRATE 15 MCG/2 ML VIAL NEB SCH ×2 (08:23→19:50)
--- NOTE | 2018-06-15 09:41 | PN ---
Progress Note (short form) - Note Progress Note: Neurology History of Present Illness 57F w/ a history of COPD (2L NC at home), HTN, CAD, hypothyroidism who presents from [facility] ([place], [place]) for evaluation of increasing respiratory distress and associated confusion/lethargy. The patient was recently admitted for a COPD exacerbation. According to notes the family reported when the patient is having an exacerbation, it is typical for her to become confused. She was admitted and Pulmonary following closely. L spine Xray reviewed, no fractures or dislocations. Neurologically without focal deficits. Getting ongoing medical mgmt. Is able to tell me she's at [place], mental status appears at baseline. patient reports not able to ambulate and discussed with primary care physician in detail today as well as yesterday. We'll pursue further workup including CT of lumbar ( patient refusing MRI lumbar spine as she cannot tolerate closed MRI) , will also order EMG/nerve conduction study of lower extremities. We'll add cyclobenzaprine 5 mg up to 3 times a day to her medication regimen as she feels that she has muscle spasm in her lower back that is limiting her ambulation as well. Allergies/Adverse Reactions: Allergies Allergy/AdvReac Type Severity Reaction Status Date / Time Penicillins Allergy Severe Difficulty Verified 05/19/18 16:04 Breathing Active Medications Acetaminophen (Tylenol -) 650 mg PO Q6H PRN PRN Reason: PAIN 1-7 Last Admin: 06/14/18 22:23 Dose: 650 mg Albuterol Sulfate (Ventolin 0.083% Nebulizer Soln -) 1 amp NEB Q8H PRN PRN Reason: SHORT OF BREATH/WHEEZING Last Admin: 06/14/18 14:50 Dose: 1 amp Albuterol Sulfate (Ventolin Hfa Inhaler -) 1 puff IH Q6H PRN PRN Reason: ASTHMA Last Admin: 06/06/18 10:31 Dose: 1 puff Arformoterol Tartrate (Brovana (Restricted To Pulmonology/Resp) -) 1 amp NEB RBID [facility] Last Admin: 06/15/18 08:23 Dose: 1 amp Escitalopram Oxalate (Lexapro -) 5 mg PO DAILY [facility] Last Admin: 06/14/18 09:37 Dose: 5 mg Heparin Sodium (Porcine) (Heparin -) 5,000 unit SQ BID [facility] Last Admin: 06/14/18 22:22 Dose: 5,000 unit Insulin Aspart (Novolog Vial Sliding Scale -) 1 vial SQ ACHS [facility]; Protocol Last Admin: 06/15/18 06:36 Dose: Not Given Lactobacillus Acidophilus (Bacid -) 1 tab PO DAILY [facility] Last Admin: 06/14/18 09:37 Dose: 1 tab Levothyroxine Sodium (Synthroid -) 75 mcg PO DAILY@0700 [facility] Last Admin: 06/15/18 06:38 Dose: 75 mcg Lidocaine (Lidoderm Patch -) 1 patch TP DAILY [facility] Last Admin: 06/14/18 09:37 Dose: 1 patch Losartan Potassium (Cozaar -) 25 mg PO DAILY [facility] Last Admin: 06/14/18 09:37 Dose: 25 mg Metformin HCl (Glucophage -) 500 mg PO DAILY@0700 [facility] Last Admin: 06/15/18 06:38 Dose: 500 mg Methylprednisolone Sodium Succinate (Solu-Medrol -) 30 mg IVPUSH BID [facility] Last Admin: 06/14/18 22:23 Dose: 30 mg Montelukast Sodium (Singulair -) 10 mg PO HS [facility] Last Admin: 06/14/18 22:22 Dose: 10 mg Pantoprazole Sodium (Protonix -) 20 mg PO DAILY [facility] Last Admin: 06/14/18 09:37 Dose: 20 mg Polyethylene Glycol (Miralax (For Daily Use) -) 17 gm PO BID [facility] Last Admin: 06/14/18 22:23 Dose: 17 gm Roflumilast (Daliresp -) 500 mcg PO DAILY [facility] Last Admin: 06/14/18 09:38 Dose: 500 mcg Rosuvastatin Calcium (Crestor -) 5 mg PO HS [facility] Last Admin: 06/14/18 22:22 Dose: 5 mg Sodium Chloride ([place] Nasal [place] -) 2 spray NS BID [facility] Last Admin: 06/14/18 22:23 Dose: 2 spray Tiotropium [place] (Spiriva Respimat) 2 puff IH DAILY [facility] Last Admin: 06/14/18 09:45 Dose: 2 puff Valacyclovir HCl (Valtrex -) 500 mg PO BID [facility] Last Admin: 06/14/18 22:22 Dose: 500 mg *Physical Exam Vital Signs Temperature 98 F 06/15/18 06:00 Pulse Rate 81 06/15/18 06:00 Respiratory Rate 20 06/15/18 06:00 Blood Pressure 124/71 06/15/18 06:00 O2 Sat by Pulse Oximetry (%) 96 06/14/18 22:48 GENERAL: Awake, easily arousable to voice, oriented to self, not telling me location, month, or year HEAD: No signs of trauma, normocephalic, atraumatic EYES: PERRLA, EOMI ENT: Hearing grossly normal, nares patent, oropharynx clear without exudates. Moist mucosa LUNGS: on 4LNC (2LNC at home); moderate diffuse wheeze b/l HEART: Tachycardia with regular rhythm, normal S1 and S2, no murmurs appreciated , peripheral pulses normal and equal bilaterally ABDOMEN: Soft, nontender, normoactive bowel sounds. No guarding, no rebound EXTREMITIES : 2+ BLE edema to knee; RUE hand and forearm hematoma, Normal range of motion NEUROLOGICAL: Cranial nerves II through XII grossly intact. no focal sensorimotor deficits, finger to nose normal, gait deferred CBCD WBC 10.0 K/mm3 (4.0-10.0) 06/13/18 06:15 RBC 3.15 M/mm3 (3.60-5.2) L 06/13/18 06:15 Hgb 9.4 GM/dL (10.7-15.3) L 06/13/18 06:15 Hct 29.3 % (32.4-45.2) L 06/13/18 06:15 MCV 93.1 fl (80-96) 06/13/18 06:15 MCHC 31.9 g/dl (32.0-36.0) L 06/13/18 06:15 RDW 14.5 % (11.6-15.6) 06/13/18 06:15 Plt Count 176 K/MM3 (134-434) 06/13/18 06:15 MPV 8.2 fl (7.5-11.1) 06/13/18 06:15 CMP Sodium 139 mmol/L (136-145) 06/13/18 06:15 Potassium 3.9 mmol/L (3.5-5.1) 06/13/18 06:15 Chloride 93 mmol/L (98-107) L 06/13/18 06:15 Carbon Dioxide 44 mmol/L (21-32) H 06/13/18 06:15 Anion Gap 2 MMOL/L (8-16) L 06/13/18 06:15 BUN 20 mg/dL (7-18) H 06/13/18 06:15 Creatinine 0.3 mg/dL (0.55-1.3) L 06/13/18 06:15 Creat Clearance w eGFR > 60 (>60) 06/13/18 06:15 Random Glucose 91 mg/dL (74-106) 06/13/18 06:15 Calcium 8.3 mg/dL (8.5-10.1) L 06/13/18 06:15 Total Bilirubin 0.5 mg/dL (0.2-1) 06/12/18 08:05 AST 25 U/L (15-37) 06/12/18 08:05 ALT 38 U/L (13-61) 06/12/18 08:05 Alkaline Phosphatase 136 U/L (45-117) H 06/12/18 08:05 Total Protein 5.2 g/dl (6.4-8.2) L 06/12/18 08:05 Albumin 2.3 g/dl (3.4-5.0) L 06/12/18 08:05 CARDIAC ENZYMES Creatine Kinase 14 IU/L (26-192) L 06/13/18 06:15 Troponin I 0.05 ng/ml (0.00-0.05) 05/25/18 05:30 Medical Decision Making 57F w/ a history of COPD (2L NC at home), HTN, CAD, hypothyroidism who presents from [facility] ([place], [place]) for evaluation of increasing respiratory distress and associated confusion/lethargy. The patient was recently admitted for a COPD exacerbation. According to notes the family reported when the patient is having an exacerbation, it is typical for her to become confused. She was admitted and Pulmonary following closely. Repeat CT head completed and without acute changes. ENT note reviewed. Is alert and interactive now, neurologically stable. Likely AMS, Toxic metabolic encephalopathy 2/2 respiratory distress, continue optimization of COPD. Increased hydration, monitor BP, maintain normotensive range. L spine X ray reviewed. Will benefit from outpatient rehab. Mental status at baseline, but limited ambulation, we'll pursue CT of lumbar spine along with EMG/nerve conduction study of lower extremities. Continue physical therapy as tolerated. Cyclobenzaprine 5 mg up to 3 times a day will be added. fall precautions recommended. Differential includes deconditioning versus steroid-induced myopathy, EMG will help clarify.
[2018-06-15] MEDS: ALBUTEROL SO4 0.083% IH SOL 2.5 MG/3 ML VIAL.NEB. NEB PRN (11:21)
[2018-06-15] MEDS ORDERED: PT OWN MED DRAWER 7, Y5N ONE (11:23)
[2018-06-15] MEDS: methylPREDNISolone NA SUCC 40 MG/1 ML VIAL IVPUSH SCH (11:28)
[2018-06-15] MEDS: HEPARIN NA (PORCINE) 5,000 UNITS/ML 1ML VIAL SQ SCH ×2 (11:28→22:01)
[2018-06-15] MEDS: PANTOPRAZOLE 20 MG TABLET (FP) PO SCH (11:29)
[2018-06-15] MEDS: ESCITALOPRAM OXALATE 10 MG TABLET (FP) PO SCH (11:29)
[2018-06-15] MEDS: LOSARTAN POTASSIUM 25 MG TABLET PO SCH (11:29)
[2018-06-15] MEDS: LACTOBACILLUS ACIDOPHILUS 1 TABLET PO SCH (11:29)
[2018-06-15] MEDS: POLYETHYLENE GLYCOL 3350 119 GM BTL PO SCH ×2 (11:31→22:01)
[2018-06-15] MEDS: TIOTROPIUM BROMIDE 2.5 MCG (SPIRIVA) RESPIMAT INHALER IH SCH (11:31)
[2018-06-15] MEDS: LIDOCAINE 5% TOPICAL PATCH TP SCH (11:31)
[2018-06-15] MEDS: SODIUM CHLORIDE NASAL SPRAY 44 ML BOTTLE NS SCH ×2 (11:31→22:03)
[2018-06-15] MEDS: ROFLUMILAST 500 MCG TABLET PO SCH (11:31)
[2018-06-15] MEDS: valACYclovir HCL 500 MG TABLET (FP) PO SCH ×2 (11:32→21:59)
--- NOTE | 2018-06-15 14:07 | CONSULT ---
Consult - text type - Consultation Consultation Note: PM&R follow-up for EMG BLE, evaluate for steroid- induced myopathy. This is a 57 year old woman with a medical history of CAD, CHF, HTN, HLD, COPD, NAVDEEP, anemia of chronic disease, hypothyroidism, who was seen yesterday by Dr Mast for consult. We were requested for follow-up to perform EMG. She reports being ambulatry prior to arrival but now cannot stand or walk following prolonged hospital course . CT lumbar spine 06/15/18 shows small L5-S1 HNP with mild chronic L3 compression fx without bony retropulsion. Physical Exam: calm F lying in bed NAD N/M: 4+/5 BLE with give- way weakness Extremities: no BLE pitting edema, no B calf tenderness, +SCDs in place Electrodiagnostics were performed, please see scan for details. There is electrophysiological evidence of a severe axonal sensorimotor peripheral neuropathy without evidence of bilateral lumbar radiculopathy. There were small motor units in B tibialis anterior muscles without evidence of proximal or distal myopathy. Impression: 1) Axonal sensorimotor peripheral neuropathy: differential diagnosis includes but is not limited to: critical illness neuropathy, hypothyroidism, vitamin deficiencies (B12, folate, thiamine), gout, connective tissue disorders (RA, SLE ), liver disease Recommendations: 1) D/w pt importance of PT for strengthening and endurance 2) Falls, safety precautions 3) Cardiopulmonary precautions 4) Discharge planning: d/w pt that she would benefit from inpatient rehabilitation once medically stable. Thank you for this referral.
[2018-06-15] MEDS: CYCLOBENZAPRINE HCL 10 MG TABLET (FP) PO SCH ×2 (14:11→22:06)
--- NOTE | 2018-06-15 14:43 | PN ---
Progress Note (short form) - Note Progress Note: PULMONARY Breathing continues to slowly improve. Less cough and wheezing. Depressed about prolonged hospital stay. Vital Signs Period Temp Pulse Resp BP Sys/Domínguez Pulse Ox Last 24 Hr 97.3 F-98 F 81-94 18-20 102-124/58-71 96-98 Gen: NAD at rest Heart: RRR Lung: decreased breath sounds at the bases Abd: soft, nontender Ext: no edema CBC, BMP 06/13/18 06:15 06/13/18 06:15 Active Medications Acetaminophen (Tylenol -) 650 mg PO Q6H PRN PRN Reason: PAIN 1-7 Last Admin: 06/14/18 22:23 Dose: 650 mg Albuterol Sulfate (Ventolin 0.083% Nebulizer Soln -) 1 amp NEB Q8H PRN PRN Reason: SHORT OF BREATH/WHEEZING Last Admin: 06/15/18 11:21 Dose: 1 amp Albuterol Sulfate (Ventolin Hfa Inhaler -) 1 puff IH Q6H PRN PRN Reason: ASTHMA Last Admin: 06/06/18 10:31 Dose: 1 puff Arformoterol Tartrate (Brovana (Restricted To Pulmonology/Resp) -) 1 amp NEB RBID [facility] Last Admin: 06/15/18 08:23 Dose: 1 amp Cyclobenzaprine HCl (Flexeril -) 5 mg PO TID [facility] Last Admin: 06/15/18 14:11 Dose: Not Given Escitalopram Oxalate (Lexapro -) 5 mg PO DAILY [facility] Last Admin: 06/15/18 11:29 Dose: 5 mg Heparin Sodium (Porcine) (Heparin -) 5,000 unit SQ BID [facility] Last Admin: 06/15/18 11:28 Dose: 5,000 unit Insulin Aspart (Novolog Vial Sliding Scale -) 1 vial SQ ACHS [facility]; Protocol Last Admin: 06/15/18 12:01 Dose: 2 units Lactobacillus Acidophilus (Bacid -) 1 tab PO DAILY [facility] Last Admin: 06/15/18 11:29 Dose: 1 tab Levothyroxine Sodium (Synthroid -) 75 mcg PO DAILY@0700 [facility] Last Admin: 06/15/18 06:38 Dose: 75 mcg Lidocaine (Lidoderm Patch -) 1 patch TP DAILY [facility] Last Admin: 06/15/18 11:31 Dose: 1 patch Losartan Potassium (Cozaar -) 25 mg PO DAILY [facility] Last Admin: 06/15/18 11:29 Dose: 25 mg Metformin HCl (Glucophage -) 500 mg PO DAILY@0700 [facility] Last Admin: 06/15/18 06:38 Dose: 500 mg Methylprednisolone Sodium Succinate (Solu-Medrol -) 30 mg IVPUSH BID [facility] Last Admin: 06/15/18 11:28 Dose: 30 mg Montelukast Sodium (Singulair -) 10 mg PO HS [facility] Last Admin: 06/14/18 22:22 Dose: 10 mg Pantoprazole Sodium (Protonix -) 20 mg PO DAILY [facility] Last Admin: 06/15/18 11:29 Dose: 20 mg Polyethylene Glycol (Miralax (For Daily Use) -) 17 gm PO BID [facility] Last Admin: 06/15/18 11:31 Dose: Not Given Roflumilast (Daliresp -) 500 mcg PO DAILY [facility] Last Admin: 06/15/18 11:31 Dose: 500 mcg Rosuvastatin Calcium (Crestor -) 5 mg PO HS [facility] Last Admin: 06/14/18 22:22 Dose: 5 mg Sodium Chloride ([place] Nasal [place] -) 2 spray NS BID [facility] Last Admin: 06/15/18 11:31 Dose: 2 spray Tiotropium [place] (Spiriva Respimat) 2 puff IH DAILY [facility] Last Admin: 06/15/18 11:31 Dose: 2 puff Valacyclovir HCl (Valtrex -) 500 mg PO BID [facility] Last Admin: 06/15/18 11:32 Dose: 500 mg A/P Acute on Chronic Hypoxic and Hypercapneic Respiratory Failure Acute COPD Exacerbation Altered Mental Status likely from Hypercapnea LV Diastolic Dysfunction NAVDEEP/OHS Hypothyroidism Hyperlipidemia - slow steroid taper, can change to PO prednisone 20mg BID - inhaled bronchodilators - O2 to keep Spo2 88-92% - BiPAP at night and PRN during day - DVT prophylaxis - rehab/PT - d/c planning, can be transferred to [facility] for rehab from pulmonary standpoint
[2018-06-15 20:15] LABS: ALDOLASE 2.8 U/L (3.3-10.3)
[2018-06-15 21:10] LABS: CYCLIC CITRULLINE PEPTIDE AB 7 units (0-19)
[2018-06-15] MEDS: MONTELUKAST NA 10 MG TABLET PO SCH (21:59)
[2018-06-15] MEDS: ROSUVASTATIN CA 5 MG TABLET (FP) PO SCH (22:00)
[2018-06-15] MEDS: predniSONE 20 MG TABLET (UD) PO SCH (22:01)
[2018-06-15 23:10] LABS: COMPLEMENT TOTAL(CH50) > 60 U/mL (>41)
[2018-06-16] MEDS: INSULIN SLIDING SCALE (NOVOLOG) 1 VIAL SQ SCH ×4 (06:34→22:06)
[2018-06-16] MEDS: LEVOTHYROXINE NA 75 MCG TABLET (FP) PO SCH (06:35)
[2018-06-16] MEDS: metFORMIN HCL 500 MG TABLET (FP) PO SCH (06:35)
[2018-06-16] MEDS: CYCLOBENZAPRINE HCL 10 MG TABLET (FP) PO SCH (06:39)
[2018-06-16 06:52] LABS: BASO % 0.1 % (0-2.0); EOS % 0.4 % (0-4.5); HEMOGLOBIN 8.6 GM/dL (10.7-15.3); LYMPH % 2.1 % (8-40); MCH 31.4 pg (25.7-33.7); MCHC 34.4 g/dl (32.0-36.0); MEAN PLT VOLUME 8.3 fl (7.5-11.1); MONO % 4.8 % (3.8-10.2); NEUT % 92.6 % (42.8-82.8); PLATELET COUNT 202 K/MM3 (134-434); RBC 2.74 M/mm3 (3.60-5.2); RDW 14.6 % (11.6-15.6); WHITE BLOOD COUNT 12.7 K/mm3 (4.0-10.0)
[2018-06-16 06:54] LABS: ALBUMIN 2.1 g/dl (3.4-5.0); ALK PHOS 122 U/L (45-117); ANION GAP 5 MMOL/L (8-16); BILIRUBIN,TOTAL 0.4 mg/dL (0.2-1); BLOOD UREA NITROGEN 22 mg/dL (7-18); CALCIUM 7.9 mg/dL (8.5-10.1); CHLORIDE 92 mmol/L (98-107); CO2 40 mmol/L (21-32); CREATININE 0.4 mg/dL (0.55-1.3); GLUCOSE,RANDOM 171 mg/dL (74-106); SGOT/AST 21 U/L (15-37); SGPT/ALT 36 U/L (13-61); SODIUM 137 mmol/L (136-145); TOT PROT 4.9 g/dl (6.4-8.2); URIC ACID 3.4 mg/dL (2.6-7.2)
[2018-06-16] MEDS: ARFORMOTEROL TARTRATE 15 MCG/2 ML VIAL NEB SCH ×2 (07:30→20:17)
--- NOTE | 2018-06-16 08:08 | PN ---
Progress Note, Physician Chief Complaint: respiratory handley stable awaiting re-eval for R hand hematoma, d/w dr Velasquez and dr Guerra constipation no BM for 2-3 days on stools softeners, she wants to go to the commode but is asking for 2 males to help supporting her - Current Medication List Current Medications: Active Medications Acetaminophen (Tylenol -) 650 mg PO Q6H PRN PRN Reason: PAIN 1-7 Last Admin: 06/14/18 22:23 Dose: 650 mg Albuterol Sulfate (Ventolin 0.083% Nebulizer Soln -) 1 amp NEB Q8H PRN PRN Reason: SHORT OF BREATH/WHEEZING Last Admin: 06/15/18 11:21 Dose: 1 amp Albuterol Sulfate (Ventolin Hfa Inhaler -) 1 puff IH Q6H PRN PRN Reason: ASTHMA Last Admin: 06/06/18 10:31 Dose: 1 puff Arformoterol Tartrate (Brovana (Restricted To Pulmonology/Resp) -) 1 amp NEB RBID [facility] Last Admin: 06/15/18 19:50 Dose: 1 amp Cyclobenzaprine HCl (Flexeril -) 5 mg PO TID [facility] Last Admin: 06/16/18 06:39 Dose: Not Given Escitalopram Oxalate (Lexapro -) 5 mg PO DAILY [facility] Last Admin: 06/15/18 11:29 Dose: 5 mg Heparin Sodium (Porcine) (Heparin -) 5,000 unit SQ BID [facility] Last Admin: 06/15/18 22:01 Dose: 5,000 unit Insulin Aspart (Novolog Vial Sliding Scale -) 1 vial SQ [facility]; Protocol Last Admin: 06/16/18 06:34 Dose: 2 units Lactobacillus Acidophilus (Bacid -) 1 tab PO DAILY [facility] Last Admin: 06/15/18 11:29 Dose: 1 tab Levothyroxine Sodium (Synthroid -) 75 mcg PO DAILY@0700 [facility] Last Admin: 06/16/18 06:35 Dose: 75 mcg Lidocaine (Lidoderm Patch -) 1 patch TP DAILY [facility] Last Admin: 06/15/18 11:31 Dose: 1 patch Losartan Potassium (Cozaar -) 25 mg PO DAILY [facility] Last Admin: 06/15/18 11:29 Dose: 25 mg Metformin HCl (Glucophage -) 500 mg PO DAILY@0700 [facility] Last Admin: 06/16/18 06:35 Dose: 500 mg Montelukast Sodium (Singulair -) 10 mg PO HS [facility] Last Admin: 06/15/18 21:59 Dose: 10 mg Pantoprazole Sodium (Protonix -) 20 mg PO DAILY [facility] Last Admin: 06/15/18 11:29 Dose: 20 mg Polyethylene Glycol (Miralax (For Daily Use) -) 17 gm PO BID [facility] Last Admin: 06/15/18 22:01 Dose: 17 gm Prednisone (Deltasone -) 20 mg PO BID [facility] Last Admin: 06/15/18 22:01 Dose: 20 mg Roflumilast (Daliresp -) 500 mcg PO DAILY [facility] Last Admin: 06/15/18 11:31 Dose: 500 mcg Rosuvastatin Calcium (Crestor -) 5 mg PO HS [facility] Last Admin: 06/15/18 22:00 Dose: 5 mg Sodium Chloride ([place] Nasal [place] -) 2 spray NS BID [facility] Last Admin: 06/15/18 22:03 Dose: 2 spray Tiotropium [place] (Spiriva Respimat) 2 puff IH DAILY [facility] Last Admin: 06/15/18 11:31 Dose: 2 puff Valacyclovir HCl (Valtrex -) 500 mg PO BID [facility] Last Admin: 06/15/18 21:59 Dose: 500 mg - Objective Vital Signs: Vital Signs Temperature 98.2 F 06/16/18 06:00 Pulse Rate 70 06/16/18 06:00 Respiratory Rate 20 06/16/18 06:00 Blood Pressure 136/75 06/16/18 06:00 O2 Sat by Pulse Oximetry (%) 98 06/15/18 09:00 Constitutional: Yes: No Distress, Calm Eyes: Yes: Conjunctiva Clear HENT: Yes: Atraumatic Neck: Yes: Supple Cardiovascular: Yes: Regular Rate and Rhythm Respiratory: Yes: Rales Gastrointestinal: Yes: Soft. No: Distention, Tenderness Genitourinary: No: CVA Tenderness - Left, CVA Tenderness - Right, Hematuria Musculoskeletal: No: Joint Stiffness, Joint Swelling Extremities: No: Cold, Cool, Cyanosis Edema: No Integumentary: Yes: Bruising Neurological: Yes: WNL, Alert, Oriented ...Motor Strength: WNL Psychiatric: Yes: WNL, Alert, Oriented. No: Agitated, Suicidal Ideation Labs: CBC, BMP 06/16/18 06:00 INR, PTT INR 0.97 (0.83-1.09) 05/19/18 16:15 - ....Imaging Other: Report Reviewed Assessment/Plan The patient is a 57F w/ a history of severe advanced COPD O2 dependant and frequent Bipap use, HTN, CAD, hypothyroidism admitted with acute on chronic COPD exacerbation. s/p Fall. Sinusitis, PNA acute on chronic exacerbation of COPD; anemia; pulmonary f/u; taper steroids; Bipap to use it as ordered; weakness: neurology f/u; needs intensive PT rehab dw pt and d/w staff back pain: rheum eval; neurology f/u; spine CT noted, EMG noted; PT rehab eval gastric pfx while on steroids; BGM and GLU control while on steroids stools softeners ordered daily, good po hydration and high fiber diet d/w pt R hand hematoma and arms bruises (R eye conjunctival small medial hematoma resolved); restarted sq heparin. falls decubs DVT PFX do not get OOB alone dw pt; turn on bed q1-2 h to prevent decubs d/w pt and staff; prognosis guarded
[2018-06-16] MEDS ORDERED: PT OWN MED DRAWER 7, Y5N ONE (09:42)
--- NOTE | 2018-06-16 09:51 | PN ---
Progress Note (short form) - Note Progress Note: Neurology History of Present Illness 57F w/ a history of COPD (2L NC at home), HTN, CAD, hypothyroidism who presents from [facility] for evaluation of increasing respiratory distress and associated confusion/lethargy. The patient was recently admitted for a COPD exacerbation. According to notes the family reported when the patient is having an exacerbation, it is typical for her to become confused. She was admitted and Pulmonary following closely. L spine Xray reviewed, no fractures or dislocations. Neurologically without focal deficits. Getting ongoing medical mgmt. Is able to tell me she's at [place], mental status appears at baseline. CT L spine completed, reviewed and discussed, mild L5/S1 herniation but not significant. All other levels stable though L3 compression facture noted, chronic. EMG done, consistent with critical illness myopathy/neuropathy. Recommended increased therapy and ambulation. Patient informed and encouraged. She would like to get to [facility] to do therapy. Does not want to take muscle relaxant, will d/c order. Allergies/Adverse Reactions: Allergies Allergy/AdvReac Type Severity Reaction Status Date / Time Penicillins Allergy Severe Difficulty Verified 05/19/18 16:04 Breathing Active Medications Acetaminophen (Tylenol -) 650 mg PO Q6H PRN PRN Reason: PAIN 1-7 Last Admin: 06/14/18 22:23 Dose: 650 mg Albuterol Sulfate (Ventolin 0.083% Nebulizer Soln -) 1 amp NEB Q8H PRN PRN Reason: SHORT OF BREATH/WHEEZING Last Admin: 06/15/18 11:21 Dose: 1 amp Albuterol Sulfate (Ventolin Hfa Inhaler -) 1 puff IH Q6H PRN PRN Reason: ASTHMA Last Admin: 06/06/18 10:31 Dose: 1 puff Arformoterol Tartrate (Brovana (Restricted To Pulmonology/Resp) -) 1 amp NEB RBID [facility] Last Admin: 06/16/18 07:30 Dose: 1 amp Cyclobenzaprine HCl (Flexeril -) 5 mg PO TID [facility] Last Admin: 06/16/18 06:39 Dose: Not Given Escitalopram Oxalate (Lexapro -) 5 mg PO DAILY [facility] Last Admin: 06/15/18 11:29 Dose: 5 mg Heparin Sodium (Porcine) (Heparin -) 5,000 unit SQ BID [facility] Last Admin: 06/15/18 22:01 Dose: 5,000 unit Insulin Aspart (Novolog Vial Sliding Scale -) 1 vial SQ ACHS [facility]; Protocol Last Admin: 06/16/18 06:34 Dose: 2 units Lactobacillus Acidophilus (Bacid -) 1 tab PO DAILY [facility] Last Admin: 06/15/18 11:29 Dose: 1 tab Levothyroxine Sodium (Synthroid -) 75 mcg PO DAILY@0700 [facility] Last Admin: 06/16/18 06:35 Dose: 75 mcg Lidocaine (Lidoderm Patch -) 1 patch TP DAILY [facility] Last Admin: 06/15/18 11:31 Dose: 1 patch Losartan Potassium (Cozaar -) 25 mg PO DAILY [facility] Last Admin: 06/15/18 11:29 Dose: 25 mg Metformin HCl (Glucophage -) 500 mg PO DAILY@0700 [facility] Last Admin: 06/16/18 06:35 Dose: 500 mg Montelukast Sodium (Singulair -) 10 mg PO HS [facility] Last Admin: 06/15/18 21:59 Dose: 10 mg Pantoprazole Sodium (Protonix -) 20 mg PO DAILY [facility] Last Admin: 06/15/18 11:29 Dose: 20 mg Polyethylene Glycol (Miralax (For Daily Use) -) 17 gm PO BID [facility] Last Admin: 06/15/18 22:01 Dose: 17 gm Prednisone (Deltasone -) 20 mg PO BID [facility] Last Admin: 18 22:01 Dose: 20 mg Roflumilast (Daliresp -) 500 mcg PO DAILY [facility] Last Admin: 06/15/18 11:31 Dose: 500 mcg Rosuvastatin Calcium (Crestor -) 5 mg PO HS [facility] Last Admin: 06/15/18 22:00 Dose: 5 mg Sodium Chloride ([place] Nasal [place] -) 2 spray NS BID [facility] Last Admin: 06/15/18 22:03 Dose: 2 spray Tiotropium [place] (Spiriva Respimat) 2 puff IH DAILY [facility] Last Admin: 06/15/18 11:31 Dose: 2 puff Valacyclovir HCl (Valtrex -) 500 mg PO BID [facility] Last Admin: 06/15/18 21:59 Dose: 500 mg *Physical Exam Vital Signs Period Temp Pulse Resp BP Sys/Domínguez Pulse Ox Last 24 Hr 97.3 F-98.6 F 70-94 18-20 101-136/58-75 GENERAL: Awake, easily arousable to voice, oriented to self, not telling me location, month, or year HEAD: No signs of trauma, normocephalic, atraumatic EYES: PERRLA, EOMI ENT: Hearing grossly normal, nares patent, oropharynx clear without exudates. Moist mucosa LUNGS: on 4LNC (2LNC at home); moderate diffuse wheeze b/l HEART: Tachycardia with regular rhythm, normal S1 and S2, no murmurs appreciated , peripheral pulses normal and equal bilaterally ABDOMEN: Soft, nontender, normoactive bowel sounds. No guarding, no rebound EXTREMITIES : 2+ BLE edema to knee; RUE hand and forearm hematoma, Normal range of motion NEUROLOGICAL: Cranial nerves II through XII grossly intact. no focal sensorimotor deficits, finger to nose normal, gait deferred CBCD WBC 12.7 K/mm3 (4.0-10.0) H 06/16/18 06:00 RBC 2.74 M/mm3 (3.60-5.2) L 06/16/18 06:00 Hgb 8.6 GM/dL (10.7-15.3) L 06/16/18 06:00 Hct 25.0 % (32.4-45.2) L 06/16/18 06:00 MCV 91.0 fl (80-96) 06/16/18 06:00 MCHC 34.4 g/dl (32.0-36.0) 06/16/18 06:00 RDW 14.6 % (11.6-15.6) 06/16/18 06:00 Plt Count 202 K/MM3 (134-434) 06/16/18 06:00 MPV 8.3 fl (7.5-11.1) 06/16/18 06:00 CMP Sodium 137 mmol/L (136-145) 06/16/18 06:00 Potassium 4.0 mmol/L (3.5-5.1) 06/16/18 06:00 Chloride 92 mmol/L (98-107) L 06/16/18 06:00 Carbon Dioxide 40 mmol/L (21-32) H 06/16/18 06:00 Anion Gap 5 MMOL/L (8-16) L 06/16/18 06:00 BUN 22 mg/dL (7-18) H 06/16/18 06:00 Creatinine 0.4 mg/dL (0.55-1.3) L 06/16/18 06:00 Creat Clearance w eGFR > 60 (>60) 06/16/18 06:00 Random Glucose 171 mg/dL (74-106) H 06/16/18 06:00 Calcium 7.9 mg/dL (8.5-10.1) L 06/16/18 06:00 Total Bilirubin 0.4 mg/dL (0.2-1) 06/16/18 06:00 AST 21 U/L (15-37) 06/16/18 06:00 ALT 36 U/L (13-61) 06/16/18 06:00 Alkaline Phosphatase 122 U/L (45-117) H 06/16/18 06:00 Total Protein 4.9 g/dl (6.4-8.2) L 06/16/18 06:00 Albumin 2.1 g/dl (3.4-5.0) L 06/16/18 06:00 CARDIAC ENZYMES Creatine Kinase 14 IU/L (26-192) L 06/13/18 06:15 Troponin I 0.05 ng/ml (0.00-0.05) 05/25/18 05:30 Medical Decision Making 57F w/ a history of COPD (2L NC at home), HTN, CAD, hypothyroidism who presents from [facility] for evaluation of increasing respiratory distress and associated confusion/lethargy. The patient was recently admitted for a COPD exacerbation. According to notes the family reported when the patient is having an exacerbation, it is typical for her to become confused. She was admitted and Pulmonary following closely. Repeat CT head completed and without acute changes. ENT note reviewed. Is alert and interactive now, neurologically stable. Likely AMS, Toxic metabolic encephalopathy 2/2 respiratory distress, continue optimization of COPD. Increased hydration, monitor BP, maintain normotensive range. L spine X ray reviewed. Will benefit from outpatient rehab. CT L spine as above, EMG consistent with critical illness myopathy/neuropathy. Encourged patient for therapy, she would like to go to rehab and participiate to regain strength.
[2018-06-16] MEDS: LACTOBACILLUS ACIDOPHILUS 1 TABLET PO SCH (10:32)
[2018-06-16] MEDS: ROFLUMILAST 500 MCG TABLET PO SCH (10:33)
[2018-06-16] MEDS: ESCITALOPRAM OXALATE 10 MG TABLET (FP) PO SCH (10:34)
[2018-06-16] MEDS: HEPARIN NA (PORCINE) 5,000 UNITS/ML 1ML VIAL SQ SCH ×3 (10:34→22:06)
[2018-06-16] MEDS: predniSONE 20 MG TABLET (UD) PO SCH ×2 (10:34→22:06)
[2018-06-16] MEDS: POLYETHYLENE GLYCOL 3350 119 GM BTL PO SCH ×2 (10:35→22:03)
[2018-06-16] MEDS: SODIUM CHLORIDE NASAL SPRAY 44 ML BOTTLE NS SCH ×2 (10:35→22:10)
[2018-06-16] MEDS: PANTOPRAZOLE 20 MG TABLET (FP) PO SCH (10:35)
[2018-06-16] MEDS: LIDOCAINE 5% TOPICAL PATCH TP SCH (10:35)
[2018-06-16] MEDS: TIOTROPIUM BROMIDE 2.5 MCG (SPIRIVA) RESPIMAT INHALER IH SCH (10:36)
[2018-06-16] MEDS: LOSARTAN POTASSIUM 25 MG TABLET PO SCH (10:37)
[2018-06-16] MEDS: valACYclovir HCL 500 MG TABLET (FP) PO SCH ×2 (10:40→22:05)
[2018-06-16 11:53] LABS: ACANTHOCYTES 0; ANISOCYTOSIS 0; HELMET CELLS 0; HOWELL-JOLLY BODIES 0; MACROCYTOSIS 0; OVALOCYTE 0; PLATELET ESTIMATE NORMAL; ROULEAU 0; SICKELED CELLS 0; TARGET CELLS 0; TEAR DROP CELLS 0; TOXIC GRANULATION 0
[2018-06-16 12:19] LABS: ERYTHROCYTE SEDIMENTATION RATE 71 mm/hr (0-30)
--- NOTE | 2018-06-16 14:38 | PN ---
Progress Note, Physician History of Present Illness: pulmonary allert,feeling better,-resp distres - Current Medication List Current Medications: Active Medications Acetaminophen (Tylenol -) 650 mg PO Q6H PRN PRN Reason: PAIN 1-7 Last Admin: 06/14/18 22:23 Dose: 650 mg Albuterol Sulfate (Ventolin 0.083% Nebulizer Soln -) 1 amp NEB Q8H PRN PRN Reason: SHORT OF BREATH/WHEEZING Last Admin: 06/15/18 11:21 Dose: 1 amp Albuterol Sulfate (Ventolin Hfa Inhaler -) 1 puff IH Q6H PRN PRN Reason: ASTHMA Last Admin: 06/06/18 10:31 Dose: 1 puff Arformoterol Tartrate (Brovana (Restricted To Pulmonology/Resp) -) 1 amp NEB RBID [facility] Last Admin: 06/16/18 07:30 Dose: 1 amp Escitalopram Oxalate (Lexapro -) 5 mg PO DAILY [facility] Last Admin: 06/16/18 10:34 Dose: 5 mg Heparin Sodium (Porcine) (Heparin -) 5,000 unit SQ BID [facility] Last Admin: 06/16/18 10:45 Dose: Not Given Insulin Aspart (Novolog Vial Sliding Scale -) 1 vial SQ [facility]; Protocol Last Admin: 06/16/18 11:56 Dose: 2 units Lactobacillus Acidophilus (Bacid -) 1 tab PO DAILY [facility] Last Admin: 06/16/18 10:32 Dose: 1 tab Levothyroxine Sodium (Synthroid -) 75 mcg PO DAILY@0700 [facility] Last Admin: 06/16/18 06:35 Dose: 75 mcg Lidocaine (Lidoderm Patch -) 1 patch TP DAILY [facility] Last Admin: 06/16/18 10:35 Dose: 1 patch Losartan Potassium (Cozaar -) 25 mg PO DAILY [facility] Last Admin: 06/16/18 10:37 Dose: Not Given Metformin HCl (Glucophage -) 500 mg PO DAILY@0700 [facility] Last Admin: 06/16/18 06:35 Dose: 500 mg Montelukast Sodium (Singulair -) 10 mg PO HS [facility] Last Admin: 06/15/18 21:59 Dose: 10 mg Pantoprazole Sodium (Protonix -) 20 mg PO DAILY [facility] Last Admin: 06/16/18 10:35 Dose: 20 mg Polyethylene Glycol (Miralax (For Daily Use) -) 17 gm PO BID [facility] Last Admin: 06/16/18 10:35 Dose: 17 gm Prednisone (Deltasone -) 20 mg PO BID [facility] Last Admin: 06/16/18 10:34 Dose: 20 mg Roflumilast (Daliresp -) 500 mcg PO DAILY [facility] Last Admin: 06/16/18 10:33 Dose: 500 mcg Rosuvastatin Calcium (Crestor -) 5 mg PO HS [facility] Last Admin: 06/15/18 22:00 Dose: 5 mg Sodium Chloride ([place] Nasal [place] -) 2 spray NS BID [facility] Last Admin: 06/16/18 10:35 Dose: 2 spray Tiotropium [place] (Spiriva Respimat) 2 puff IH DAILY [facility] Last Admin: 06/16/18 10:36 Dose: 2 puff Valacyclovir HCl (Valtrex -) 500 mg PO BID [facility] Last Admin: 06/16/18 10:40 Dose: 500 mg - Objective Vital Signs: Vital Signs Temperature 98.7 F 06/16/18 14:15 Pulse Rate 86 06/16/18 14:15 Respiratory Rate 20 06/16/18 14:15 Blood Pressure 117/59 L 06/16/18 14:15 O2 Sat by Pulse Oximetry (%) 98 06/15/18 09:00 Constitutional: Yes: Well Nourished, Calm Eyes: Yes: WNL HENT: Yes: WNL Neck: Yes: WNL Cardiovascular: Yes: Regular Rate and Rhythm, S1, S2 Respiratory: Yes: Diminished Gastrointestinal: Yes: Normal Bowel Sounds, Soft Extremities: Yes: WNL Edema: No Labs: CBC, BMP 06/16/18 06:00 06/16/18 06:00 INR, PTT INR 0.97 (0.83-1.09) 05/19/18 16:15 Problem List - Problems (1) Altered mental status Code(s): R41.82 - ALTERED MENTAL STATUS, UNSPECIFIED Qualifiers: Altered mental status type: disorientation Qualified Code(s): R41.0 - Disorientation, unspecified (2) COPD exacerbation Code(s): J44.1 - CHRONIC OBSTRUCTIVE PULMONARY DISEASE W (ACUTE) EXACERBATION (3) Acute on chronic respiratory failure with hypoxia and hypercapnia Code(s): J96.21 - ACUTE AND CHRONIC RESPIRATORY FAILURE WITH HYPOXIA; J96.22 - ACUTE AND CHRONIC RESPIRATORY FAILURE WITH HYPERCAPNIA (4) CHF (congestive heart failure) Code(s): I50.9 - HEART FAILURE, UNSPECIFIED (5) COPD exacerbation Code(s): J44.1 - CHRONIC OBSTRUCTIVE PULMONARY DISEASE W (ACUTE) EXACERBATION (6) Diastolic dysfunction Code(s): I51.9 - HEART DISEASE, UNSPECIFIED (7) Sleep apnea Code(s): G47.30 - SLEEP APNEA, UNSPECIFIED Qualifiers: Sleep apnea type: unspecified type Qualified Code(s): G47.30 - Sleep apnea , unspecified Assessment/Plan IMP ACUTE ON CHRONIC HYPOXEMIC HYPERCAPNEIC RESPIRATORY FAILURE COPD O2 DEPENDENT PNEUMONIA ALTERED MENTAL STATUS CHF HYPOTHYROID NAVDEEP R PAROTID SWELLING STEROID MYOPATHY PLAN PREDNISONE INHALED BRONCHODILATORS O2 BIPAP AT NIGHT AND PRN DR MEDEIROS Problem List - Problems (1) Altered mental status Code(s): R41.82 - ALTERED MENTAL STATUS, UNSPECIFIED Qualifiers: Altered mental status type: disorientation Qualified Code(s): R41.0 - Disorientation, unspecified (2) COPD exacerbation Code(s): J44.1 - CHRONIC OBSTRUCTIVE PULMONARY DISEASE W (ACUTE) EXACERBATION (3) Acute on chronic respiratory failure with hypoxia and hypercapnia Code(s): J96.21 - ACUTE AND CHRONIC RESPIRATORY FAILURE WITH HYPOXIA; J96.22 - ACUTE AND CHRONIC RESPIRATORY FAILURE WITH HYPERCAPNIA (4) CHF (congestive heart failure) Code(s): I50.9 - HEART FAILURE, UNSPECIFIED (5) COPD exacerbation Code(s): J44.1 - CHRONIC OBSTRUCTIVE PULMONARY DISEASE W (ACUTE) EXACERBATION (6) Diastolic dysfunction Code(s): I51.9 - HEART DISEASE, UNSPECIFIED (7) Sleep apnea Code(s): G47.30 - SLEEP APNEA, UNSPECIFIED
--- NOTE | 2018-06-16 15:02 | CONSULT ---
Consult Consult Specialty:: Rheumatology - History of Present Illness History of Present Illness: 57 female with history of COPD (O2 dependent since 2013), HTN, CAD, hypothyroidism, chronic low back pain, s/p multiple COPD exacerbations and admissions to hospital, presently living in rehab facility, admitted with increasing respiratory distress related to COPD exacerbation and associated confusion/lethargy. She was found to have an elevated ESR. The patient has a hematoma in the right hand since her previous admission (on ) that is improving. The patient reports mild chronic low back pain and denies other joint involvement. She has multiple hematomas in arms and denies history of other skin rash. She denies headache or change in vision. An EMG was reported with sensorimotor peripheral neuropathy without radiculopathy or myopathy. Head CT with no intracranial pathology. CT of the lumbar spine reported with very small central L5-S1 disv herniation and mild chronic L3 fracture compression. Laboratory work-up: on admission, CBC with WBC of 14.3. Today CBC with WBC 12.7, Hgb 8.6 and platelets 202. ESR on 06/13: 59 and today 71. CARLOS, rheumatoid factor, CCP, anti-DNAds and heparin induced plat. Ab were all negative. CH50 was elevated (>60) represents an acute phase reactant. - History Source History Provided By: Patient, Medical Record - Past Medical History Cardio/Vascular: Yes: CHF (end diastolic), HTN, Hyperlipdemia Pulmonary: Yes: COPD, O2 Dependent, Sleep Apnea Gastrointestinal: Yes: Constipation ...LMP: 06/03/14 ...: No Infectious Disease: Yes: Other (pneumonia) Musculoskeletal: Yes: Chronic low back pain Endocrine: Yes: Hypothyroidism - Past Surgical History Past Surgical History: Yes: - Alcohol/Substance Use Hx Alcohol Use: No History of Substance Use: reports: None - Smoking History Smoking history: Former smoker Have you smoked in the past 12 months: No If you are a former smoker, when did you quit?: 8 years ago - Social History Usual Living Arrangement: Residential ADL: Family Assistance 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 History of Recent Travel: No Home Medications - Allergies Allergies/Adverse Reactions: Allergies Allergy/AdvReac Type Severity Reaction Status Date / Time Penicillins Allergy Severe Difficulty Verified 05/19/18 16:04 Breathing - Home Medications Home Medications: Ambulatory Orders Losartan Potassium [Cozaar -] 25 mg PO DAILY #30 tablet 06/24/17 Roflumilast [Daliresp] 500 mcg PO DAILY #30 tablet 06/24/17 Escitalopram Oxalate [Lexapro -] 10 mg PO DAILY 08/31/17 Aspirin [ASA -] 81 mg PO DAILY 02/01/18 Albuterol Sulfate Inhaler - [Ventolin HFA Inhaler -] 1 - 2 inh PO Q6H PRN Montelukast Sodium [Singulair] 10 mg PO DAILY 04/05/18 Rosuvastatin [Crestor -] 5 mg PO HS 04/05/18 Albuterol 0.083% Nebulizer [place] [Ventolin 0.083% Nebulizer Soln -] 1 amp NEB TID PRN 05/06/18 Acetaminophen [Tylenol .Regular Strength -] 650 mg PO Q6H PRN tablet 05/16/18 Acetaminophen [Tylenol .Regular Strength -] 650 mg PO Q6H PRN tablet 06/10/18 Acyclovir [Zovirax -] 400 mg PO BID 3 Days tablet 06/10/18 Arformoterol Tartrate [Brovana -] 1 amp NEB RBID amp 06/10/18 Insulin Sliding Scale [Novolog Vial Sliding Scale -] 1 vial SQ ACHS units 06/10 Lactobacillus Acidophilus [Bacid -] 1 tab PO DAILY tab 06/10/18 Levothyroxine [Synthroid -] 75 mcg PO DAILY@0700 tablet 06/10/18 Pantoprazole Sodium [Protonix -] 20 mg PO DAILY tablet.ec 06/10/18 Polyethylene Glycol 3350 [Miralax 119 gm Btl -] 17 gm PO BID bottle 06/10/18 Sodium Chloride Nasal [place] [[place] Nasal [place] -] 2 spray NS BID spray Tiotropium [place] [Spiriva Respimat] 2 puff IH DAILY inhaler 06/10/18 levoFLOXacin [Levaquin -] 500 mg PO DAILY 7 Days tablet 06/10/18 predniSONE [Deltasone -] 30 mg PO BID tablet 06/10/18 Family Disease History - Family Disease History Family Disease History: Respiratory: Father ( 80 of COPD), Brother ( of COPD), Other: Father, Mother ( 82 unknown reason) Review of Systems - Review of Systems Constitutional: reports: Malaise Eyes: reports: No Symptoms HENT: reports: No Symptoms Neck: reports: No Symptoms Cardiovascular: reports: No Symptoms Respiratory: reports: SOB Gastrointestinal: reports: No Symptoms Physical Exam Vital Signs: Vital Signs Temperature 98.7 F 06/16/18 14:15 Pulse Rate 86 06/16/18 14:15 Respiratory Rate 20 06/16/18 14:15 Blood Pressure 117/59 L 06/16/18 14:15 O2 Sat by Pulse Oximetry (%) 98 06/15/18 09:00 Constitutional: Yes: Mild Distress Eyes: Yes: WNL HENT: Yes: WNL Neck: Yes: WNL Cardiovascular: Yes: WNL Respiratory: Yes: Other (Crackles in bases) Gastrointestinal: Yes: WNL Musculoskeletal: Yes: Other (No active joints) Extremities: Yes: Other (Hematoma in the dorsum of the right hand) Integumentary: Yes: Other (Multiple hematomas in arms) Labs: CBC, BMP 06/16/18 06:00 06/16/18 06:00 Problem List - Problems (1) Elevated erythrocyte sedimentation rate Assessment/Plan: The patient has an elevated ESR, that has progressed while in the hospital. She does not have clinical or laboratory changes suggestive of a vasculitis or other connective tissue disease. The hematoma in the right hand and COPD exacerbation can contribute to the elevated ESR. At this point there is no indication for further work-up and she should be evaluated clinically in the future. Code(s): R70.0 - ELEVATED ERYTHROCYTE SEDIMENTATION RATE
[2018-06-16] MEDS: ALBUTEROL SO4 0.083% IH SOL 2.5 MG/3 ML VIAL.NEB. NEB PRN (15:33)
--- NOTE | 2018-06-16 16:14 | PN ---
Progress Note, Physician History of Present Illness: Resting comfortably. Non-productive cough, wheezing and dyspnea slowly improving. Right facial swelling improving. - Current Medication List Current Medications: Active Medications Acetaminophen (Tylenol -) 650 mg PO Q6H PRN PRN Reason: PAIN 1-7 Last Admin: 06/14/18 22:23 Dose: 650 mg Albuterol Sulfate (Ventolin 0.083% Nebulizer Soln -) 1 amp NEB Q8H PRN PRN Reason: SHORT OF BREATH/WHEEZING Last Admin: 06/16/18 15:33 Dose: 1 amp Albuterol Sulfate (Ventolin Hfa Inhaler -) 1 puff IH Q6H PRN PRN Reason: ASTHMA Last Admin: 06/06/18 10:31 Dose: 1 puff Arformoterol Tartrate ([place]rovana (Restricted To Pulmonology/Resp) -) 1 amp NEB RBID [facility] Last Admin: 06/16/18 07:30 Dose: 1 amp Escitalopram Oxalate (Lexapro -) 5 mg PO DAILY [facility] Last Admin: 06/16/18 10:34 Dose: 5 mg Heparin Sodium (Porcine) (Heparin -) 5,000 unit SQ BID [facility] Last Admin: 06/16/18 10:45 Dose: Not Given Insulin Aspart (Novolog Vial Sliding Scale -) 1 vial SQ ACHS [facility]; Protocol Last Admin: 06/16/18 11:56 Dose: 2 units Lactobacillus Acidophilus (Bacid -) 1 tab PO DAILY [facility] Last Admin: 06/16/18 10:32 Dose: 1 tab Levothyroxine Sodium (Synthroid -) 75 mcg PO DAILY@0700 [facility] Last Admin: 06/16/18 06:35 Dose: 75 mcg Lidocaine (Lidoderm Patch -) 1 patch TP DAILY [facility] Last Admin: 06/16/18 10:35 Dose: 1 patch Losartan Potassium (Cozaar -) 25 mg PO DAILY [facility] Last Admin: 06/16/18 10:37 Dose: Not Given Metformin HCl (Glucophage -) 500 mg PO DAILY@0700 [facility] Last Admin: 06/16/18 06:35 Dose: 500 mg Montelukast Sodium (Singulair -) 10 mg PO HS [facility] Last Admin: 06/15/18 21:59 Dose: 10 mg Pantoprazole Sodium (Protonix -) 20 mg PO DAILY [facility] Last Admin: 06/16/18 10:35 Dose: 20 mg Polyethylene Glycol (Miralax (For Daily Use) -) 17 gm PO BID [facility] Last Admin: 06/16/18 10:35 Dose: 17 gm Prednisone (Deltasone -) 20 mg PO BID [facility] Last Admin: 06/16/18 10:34 Dose: 20 mg Roflumilast (Daliresp -) 500 mcg PO DAILY [facility] Last Admin: 06/16/18 10:33 Dose: 500 mcg Rosuvastatin Calcium (Crestor -) 5 mg PO HS [facility] Last Admin: 06/15/18 22:00 Dose: 5 mg Sodium Chloride ([place] Nasal [place] -) 2 spray NS BID [facility] Last Admin: 06/16/18 10:35 Dose: 2 spray Tiotropium [place] (Spiriva Respimat) 2 puff IH DAILY [facility] Last Admin: 06/16/18 10:36 Dose: 2 puff Valacyclovir HCl (Valtrex -) 500 mg PO BID [facility] Last Admin: 06/16/18 10:40 Dose: 500 mg - Objective Vital Signs: Vital Signs Temperature 98.7 F 06/16/18 14:15 Pulse Rate 86 06/16/18 14:15 Respiratory Rate 20 06/16/18 14:15 Blood Pressure 117/59 L 06/16/18 14:15 O2 Sat by Pulse Oximetry (%) 94 L 06/16/18 09:05 Constitutional: Yes: No Distress, Calm Neck: Yes: Supple Cardiovascular: Yes: Regular Rate and Rhythm Respiratory: Yes: Regular, Diminished, On Nasal O2 Gastrointestinal: Yes: Normal Bowel Sounds, Soft, Abdomen, Obese Edema: No Labs: CBC, BMP 06/16/18 06:00 06/16/18 06:00 INR, PTT INR 0.97 (0.83-1.09) 05/19/18 16:15 Problem List - Problems (1) COPD exacerbation Code(s): J44.1 - CHRONIC OBSTRUCTIVE PULMONARY DISEASE W (ACUTE) EXACERBATION (2) Acute on chronic respiratory failure with hypoxia and hypercapnia Code(s): J96.21 - ACUTE AND CHRONIC RESPIRATORY FAILURE WITH HYPOXIA; J96.22 - ACUTE AND CHRONIC RESPIRATORY FAILURE WITH HYPERCAPNIA (3) Diastolic dysfunction Code(s): I51.9 - HEART DISEASE, UNSPECIFIED (4) Hyperlipidemia Code(s): E78.5 - HYPERLIPIDEMIA, UNSPECIFIED Qualifiers: Hyperlipidemia type: pure hypercholesterolemia Qualified Code(s): E78.00 - Pure hypercholesterolemia, unspecified; E78.0 - Pure hypercholesterolemia (5) Hypertension Code(s): I10 - ESSENTIAL (PRIMARY) HYPERTENSION Qualifiers: Hypertension type: essential hypertension Qualified Code(s): I10 - Essential (primary) hypertension (6) Hypothyroidism Code(s): E03.9 - HYPOTHYROIDISM, UNSPECIFIED Qualifiers: Hypothyroidism type: unspecified Qualified Code(s): E03.9 - Hypothyroidism , unspecified (7) Shortness of breath Code(s): R06.02 - SHORTNESS OF BREATH (8) Sleep apnea Code(s): G47.30 - SLEEP APNEA, UNSPECIFIED Qualifiers: Sleep apnea type: unspecified type Qualified Code(s): G47.30 - Sleep apnea , unspecified (9) Sialadenitis Code(s): K11.20 - SIALOADENITIS, UNSPECIFIED Assessment/Plan CT scan of facial bones reviewed ++right parotid swelling c/w sialadenitis, no nodule right anterior ethmoid cell opacification; bilateral sphenoid sinus air fluid levels right mastoid air cells opacified 1. Acute on chronic hypoxic and hypercapneic respiratory failure 2. Acute home O2-dependent chronic obstructive pulmonary disease exacerbation 3. Bilateral hospital-acquired pneumonia 4. Post toxic metabolic encephalopathy referable to hypercapnea 5. CAD coronary artery calcification angina pectoris 6. Diastolic LV dysfunction with chronic class I NYHA classification LV failure 7. HTN/HCVD 8. Hypercholesterolemia/mixed dyslipidemia 9. Hypothyroidism 10. Right hand hematoma 11. Anemia 12. OSAS/OHS 13. 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 ASA 81 qd, Losartan 25 mg QD and Crestor 5 mg QD as tolerated 2. Slow oral steroid taper with GI protection, BD, O2, Singulair, Daliresp, NIPPV AT NIGHT AND PRN, empiric levaquin course 3. DVT and GI prophylaxis 4. SNF once pulmonary status improves
--- NOTE | 2018-06-16 16:28 | PN ---
Progress Note (short form) - Note Progress Note: Pt seen and examined. In summary she had a hematoma form on the dorsal aspect of her right hand after a blown vein from an IV, 1 month ago. Now she only c/o of it being unsightly. She has no c/o pain or dysfunction. PE Right hand dorsal organized hematoma. Nontender No signs of infection, not hot, no erythema. NVI Full, nl function of the right hand and wrist with no pain,. Imp Right hand dorsal hematoma, 1 month out, now organized. Rec We discussed the options. I am not recommending open I & D.. At this point the blood is not liquid, it is a thick jelly like consistency, therefore I told the pt if she wants me to try to drain it I would have to use a wide bore needle. She refused drainage. Says to leave it alone. In time her body should resorb it.
[2018-06-16] MEDS: MONTELUKAST NA 10 MG TABLET PO SCH (22:05)
[2018-06-16] MEDS: ROSUVASTATIN CA 5 MG TABLET (FP) PO SCH (22:05)
[2018-06-17] MEDS ORDERED: PT OWN MED DRAWER 7, Y5N ONE ×2 (05:04→09:07)
[2018-06-17] MEDS: INSULIN SLIDING SCALE (NOVOLOG) 1 VIAL SQ SCH ×3 (06:09→17:06)
[2018-06-17] MEDS: metFORMIN HCL 500 MG TABLET (FP) PO SCH (06:09)
[2018-06-17] MEDS: LEVOTHYROXINE NA 75 MCG TABLET (FP) PO SCH (06:12)
--- NOTE | 2018-06-17 06:17 | DS ---
Physical Examination Vital Signs: Vital Signs Temperature 98.3 F 06/16/18 22:00 Pulse Rate 20 L 06/16/18 22:00 Respiratory Rate 76 H 06/16/18 22:00 Blood Pressure 108/62 06/16/18 22:00 O2 Sat by Pulse Oximetry (%) 96 06/16/18 22:30 Findings/Remarks: respiratory handley stable and comfortable still no BM but feels like having to go, no N/V/ abdominal pain cleared by pulm, ortho, rheum and neurology for DC to SNFd/w pt clear instructions about using bipap, O2, nebs; falls prevention, decubs prevention and constipation treatment she is aware and understood Constitutional: Yes: No Distress, Calm Eyes: Yes: Conjunctiva Clear HENT: Yes: Atraumatic Neck: Yes: Supple Cardiovascular: Yes: Regular Rate and Rhythm Respiratory: Yes: CTA Bilaterally Gastrointestinal: Yes: Soft. No: Tenderness Renal/: No: CVA Tenderness - Left, CVA Tenderness - Right, Hematuria Musculoskeletal: No: Joint Stiffness, Joint Swelling Extremities: No: Cold, Cool Edema: No Integumentary: Yes: Bruising. No: Rash, Venous Stasis Changes Neurological: Yes: WNL, Alert, Oriented. No: Confusion, Tremors ...Motor Strength: WNL Psychiatric: Yes: WNL, Alert, Oriented. No: Agitated, Suicidal Ideation Labs: CBC, BMP 06/16/18 06:00 06/16/18 06:00 Discharge Summary Reason For Visit: LETHARGY/ ALTERED MENTAL STATUS Current Active Problems Altered mental status (Acute) Anemia (Acute) COPD exacerbation (Acute) Elevated erythrocyte sedimentation rate (Acute) Lethargy (Acute) Nasal congestion (Acute) Rectal bleeding (Acute) Sialadenitis (Acute) Procedures: Principal: admitted with SOB COPD exac, general weakness;. also had pneumonia and R parotitis;. had some bruises and R hand hematoma; anemia; Other Procedures: seen by pulmonary, neurology, GI, ENT, rheumatology and ortho; . steroids, nebs, O2 and antibiotics per pulmonary and ID/ENT; BIPAP needs to be used over night and few times during the day;. transfused 2 U PRBC; seen by GI, not actively bleeding, colonoscopy to be done when respiratory status imrpoves. Hospital Course: improved slowly with above; needs intensive PT rehab; see DC instructions, d/w pt and and pt's PCP in detail 40 min t time Condition: Guarded - Instructions Referrals: Agustina Taylor [Primary Care Provider] - Max Parrish MD [Staff Physician] - Shekhar Perales MD [Staff Physician] - Oleg Ann MD [Staff Physician] - Clif Calhoun MD [Staff Physician] - Tani Guerra MD [Staff Physician] - Keshawn Wakefield MD [Staff Physician] - Disposition: ASSISTED FACILITY - Home Medications Comprehensive Discharge Medication List: Ambulatory Orders Losartan Potassium [Cozaar -] 25 mg PO DAILY #30 tablet 06/24/17 Roflumilast [Daliresp] 500 mcg PO DAILY #30 tablet 06/24/17 Escitalopram Oxalate [Lexapro -] 10 mg PO DAILY 08/31/17 Aspirin [ASA -] 81 mg PO DAILY 02/01/18 Albuterol Sulfate Inhaler - [Ventolin HFA Inhaler -] 1 - 2 inh PO Q6H PRN Montelukast Sodium [Singulair] 10 mg PO DAILY 04/05/18 Rosuvastatin [Crestor -] 5 mg PO HS 04/05/18 Albuterol 0.083% Nebulizer [place] [Ventolin 0.083% Nebulizer Soln -] 1 amp NEB TID PRN 05/06/18 Acetaminophen [Tylenol .Regular Strength -] 650 mg PO Q6H PRN tablet 05/16/18 Acetaminophen [Tylenol .Regular Strength -] 650 mg PO Q6H PRN tablet 06/10/18 Acyclovir [Zovirax -] 400 mg PO BID 3 Days tablet 06/10/18 Arformoterol Tartrate [Brovana -] 1 amp NEB RBID amp 06/10/18 Insulin Sliding Scale [Novolog Vial Sliding Scale -] 1 vial SQ ACHS units 06/10 Lactobacillus Acidophilus [Bacid -] 1 tab PO DAILY tab 06/10/18 Levothyroxine [Synthroid -] 75 mcg PO DAILY@0700 tablet 06/10/18 Pantoprazole Sodium [Protonix -] 20 mg PO DAILY tablet.ec 06/10/18 Polyethylene Glycol 3350 [Miralax 119 gm Btl -] 17 gm PO BID bottle 06/10/18 Sodium Chloride Nasal [place] [[place] Nasal [place] -] 2 spray NS BID spray Tiotropium [place] [Spiriva Respimat] 2 puff IH DAILY inhaler 06/10/18 levoFLOXacin [Levaquin -] 500 mg PO DAILY 7 Days tablet 06/10/18 predniSONE [Deltasone -] 30 mg PO BID tablet 06/10/18
[2018-06-17] MEDS: ARFORMOTEROL TARTRATE 15 MCG/2 ML VIAL NEB SCH (07:30)
--- NOTE | 2018-06-17 08:58 | PN ---
Progress Note (short form) - Note Progress Note: Neurology History of Present Illness 57F w/ a history of COPD (2L NC at home), HTN, CAD, hypothyroidism who presents from [facility] for evaluation of increasing respiratory distress and associated confusion/lethargy. The patient was recently admitted for a COPD exacerbation. According to notes the family reported when the patient is having an exacerbation, it is typical for her to become confused. She was admitted and Pulmonary following closely. L spine Xray reviewed, no fractures or dislocations. Neurologically without focal deficits. Getting ongoing medical mgmt. Is able to tell me she's at [place], mental status appears at baseline. CT L spine completed, reviewed and discussed, mild L5/S1 herniation but not significant. All other levels stable though L3 compression facture noted, chronic. EMG done, consistent with critical illness myopathy/neuropathy. Recommended increased therapy and ambulation. Patient informed and encouraged. She would like to get to [facility] to do therapy. Does not want to take muscle relaxant, dced medication. She is well appearing today and is motivated for therapy. Allergies/Adverse Reactions: Allergies Allergy/AdvReac Type Severity Reaction Status Date / Time Penicillins Allergy Severe Difficulty Verified 05/19/18 16:04 Breathing Active Medications Acetaminophen (Tylenol -) 650 mg PO Q6H PRN PRN Reason: PAIN 1-7 Last Admin: 06/14/18 22:23 Dose: 650 mg Albuterol Sulfate (Ventolin 0.083% Nebulizer Soln -) 1 amp NEB Q8H PRN PRN Reason: SHORT OF BREATH/WHEEZING Last Admin: 06/16/18 15:33 Dose: 1 amp Albuterol Sulfate (Ventolin Hfa Inhaler -) 1 puff IH Q6H PRN PRN Reason: ASTHMA Last Admin: 06/06/18 10:31 Dose: 1 puff Arformoterol Tartrate (Brovana (Restricted To Pulmonology/Resp) -) 1 amp NEB RBID [facility] Last Admin: 06/17/18 07:30 Dose: 1 amp Escitalopram Oxalate (Lexapro -) 5 mg PO DAILY [facility] Last Admin: 06/16/18 10:34 Dose: 5 mg Heparin Sodium (Porcine) (Heparin -) 5,000 unit SQ BID [facility] Last Admin: 06/16/18 22:06 Dose: 5,000 unit Insulin Aspart (Novolog Vial Sliding Scale -) 1 vial SQ ACHS [facility]; Protocol Last Admin: 06/17/18 06:09 Dose: Not Given Lactobacillus Acidophilus (Bacid -) 1 tab PO DAILY [facility] Last Admin: 06/16/18 10:32 Dose: 1 tab Levothyroxine Sodium (Synthroid -) 75 mcg PO DAILY@0700 [facility] Last Admin: 06/17/18 06:12 Dose: 75 mcg Lidocaine (Lidoderm Patch -) 1 patch TP DAILY [facility] Last Admin: 06/16/18 10:35 Dose: 1 patch Losartan Potassium (Cozaar -) 25 mg PO DAILY [facility] Last Admin: 06/16/18 10:37 Dose: Not Given Metformin HCl (Glucophage -) 500 mg PO DAILY@0700 [facility] Last Admin: 06/17/18 06:09 Dose: 500 mg Montelukast Sodium (Singulair -) 10 mg PO [facility] Last Admin: 06/16/18 22:05 Dose: 10 mg Pantoprazole Sodium (Protonix -) 20 mg PO DAILY [facility] Last Admin: 06/16/18 10:35 Dose: 20 mg Polyethylene Glycol (Miralax (For Daily Use) -) 17 gm PO BID [facility] Last Admin: 06/16/18 22:03 Dose: 17 gm Prednisone (Deltasone -) 20 mg PO BID [facility] Last Admin: 06/16/18 22:06 Dose: 20 mg Roflumilast (Daliresp -) 500 mcg PO DAILY [facility] Last Admin: 06/16/18 10:33 Dose: 500 mcg Rosuvastatin Calcium (Crestor -) 5 mg PO [facility] Last Admin: 06/16/18 22:05 Dose: 5 mg Sodium Chloride ([place] Nasal [place] -) 2 spray NS BID [facility] Last Admin: 06/16/18 22:10 Dose: 2 spray Tiotropium [place] (Spiriva Respimat) 2 puff IH DAILY [facility] Last Admin: 06/16/18 10:36 Dose: 2 puff Valacyclovir HCl (Valtrex -) 500 mg PO BID [facility] Last Admin: 06/16/18 22:05 Dose: 500 mg *Physical Exam Vital Signs Period Temp Pulse Resp BP Sys/Domínguez Pulse Ox Last 24 Hr 97.2 F-98.7 F 20-93 20-97 100-129/59-66 94-96 GENERAL: Awake, easily arousable to voice, oriented to self, not telling me location, month, or year HEAD: No signs of trauma, normocephalic, atraumatic EYES: PERRLA, EOMI ENT: Hearing grossly normal, nares patent, oropharynx clear without exudates. Moist mucosa LUNGS: on 4LNC (2LNC at home); moderate diffuse wheeze b/l HEART: Tachycardia with regular rhythm, normal S1 and S2, no murmurs appreciated , peripheral pulses normal and equal bilaterally ABDOMEN: Soft, nontender, normoactive bowel sounds. No guarding, no rebound EXTREMITIES : 2+ BLE edema to knee; RUE hand and forearm hematoma, Normal range of motion NEUROLOGICAL: Cranial nerves II through XII grossly intact. no focal sensorimotor deficits, finger to nose normal, gait deferred CBCD WBC 12.7 K/mm3 (4.0-10.0) H 06/16/18 06:00 RBC 2.74 M/mm3 (3.60-5.2) L 06/16/18 06:00 Hgb 8.6 GM/dL (10.7-15.3) L 06/16/18 06:00 Hct 25.0 % (32.4-45.2) L 06/16/18 06:00 MCV 91.0 fl (80-96) 06/16/18 06:00 MCHC 34.4 g/dl (32.0-36.0) 06/16/18 06:00 RDW 14.6 % (11.6-15.6) 06/16/18 06:00 Plt Count 202 K/MM3 (134-434) 06/16/18 06:00 MPV 8.3 fl (7.5-11.1) 06/16/18 06:00 CMP Sodium 137 mmol/L (136-145) 06/16/18 06:00 Potassium 4.0 mmol/L (3.5-5.1) 06/16/18 06:00 Chloride 92 mmol/L (98-107) L 06/16/18 06:00 Carbon Dioxide 40 mmol/L (21-32) H 06/16/18 06:00 Anion Gap 5 MMOL/L (8-16) L 06/16/18 06:00 BUN 22 mg/dL (7-18) H 06/16/18 06:00 Creatinine 0.4 mg/dL (0.55-1.3) L 06/16/18 06:00 Creat Clearance w eGFR > 60 (>60) 06/16/18 06:00 Random Glucose 171 mg/dL (74-106) H 06/16/18 06:00 Calcium 7.9 mg/dL (8.5-10.1) L 06/16/18 06:00 Total Bilirubin 0.4 mg/dL (0.2-1) 06/16/18 06:00 AST 21 U/L (15-37) 06/16/18 06:00 ALT 36 U/L (13-61) 06/16/18 06:00 Alkaline Phosphatase 122 U/L (45-117) H 06/16/18 06:00 Total Protein 4.9 g/dl (6.4-8.2) L 06/16/18 06:00 Albumin 2.1 g/dl (3.4-5.0) L 06/16/18 06:00 CARDIAC ENZYMES Creatine Kinase 14 IU/L (26-192) L 06/13/18 06:15 Troponin I 0.05 ng/ml (0.00-0.05) 05/25/18 05:30 Medical Decision Making 57F w/ a history of COPD (2L NC at home), HTN, CAD, hypothyroidism who presents from [facility] for evaluation of increasing respiratory distress and associated confusion/lethargy. The patient was recently admitted for a COPD exacerbation. According to notes the family reported when the patient is having an exacerbation, it is typical for her to become confused. She was admitted and Pulmonary following closely. Repeat CT head completed and without acute changes. ENT note reviewed. Is alert and interactive now, neurologically stable. Likely AMS, Toxic metabolic encephalopathy 2/2 respiratory distress, continue optimization of COPD. Increased hydration, monitor BP, maintain normotensive range. L spine X ray reviewed. Will benefit from outpatient rehab. CT L spine as above, EMG consistent with critical illness myopathy/neuropathy. Encourged patient for therapy, she would like to go to rehab and participiate to regain strength. D/C summary in chart. No objection to this.
[2018-06-17] MEDS: POLYETHYLENE GLYCOL 3350 119 GM BTL PO SCH (09:29)
[2018-06-17] MEDS: LOSARTAN POTASSIUM 25 MG TABLET PO SCH (09:30)
[2018-06-17] MEDS: valACYclovir HCL 500 MG TABLET (FP) PO SCH (09:30)
[2018-06-17] MEDS: LIDOCAINE 5% TOPICAL PATCH TP SCH (09:30)
[2018-06-17] MEDS: PANTOPRAZOLE 20 MG TABLET (FP) PO SCH (09:30)
[2018-06-17] MEDS: ROFLUMILAST 500 MCG TABLET PO SCH (09:30)
[2018-06-17] MEDS: ESCITALOPRAM OXALATE 10 MG TABLET (FP) PO SCH (09:30)
[2018-06-17] MEDS: predniSONE 20 MG TABLET (UD) PO SCH (09:30)
[2018-06-17] MEDS: LACTOBACILLUS ACIDOPHILUS 1 TABLET PO SCH (09:30)
[2018-06-17] MEDS: HEPARIN NA (PORCINE) 5,000 UNITS/ML 1ML VIAL SQ SCH (09:31)
[2018-06-17] MEDS: SODIUM CHLORIDE NASAL SPRAY 44 ML BOTTLE NS SCH (09:31)
[2018-06-17] MEDS: TIOTROPIUM BROMIDE 2.5 MCG (SPIRIVA) RESPIMAT INHALER IH SCH (09:31)
--- NOTE | 2018-06-17 10:00 | PN ---
Progress Note (short form) - Note Progress Note: Pt seen and examined. Her right hand is doing fine. Still with a resolving hematoma over the dorsum. Again she is refusing open I & D surgery. No restrictions. No P.T. needed. F/u as an out pt as needed
--- NOTE | 2018-06-17 10:44 | PN ---
Progress Note (short form) - Note Progress Note: PULMONARY c/o constipation. Breathing continues to slowly improve. Less cough and wheezing. Vital Signs Period Temp Pulse Resp BP Sys/Domínguez Pulse Ox Last 24 Hr 97.2 F-98.7 F 20-86 20-97 108-129/59-66 96 Gen: NAD at rest Heart: RRR Lung: decreased breath sounds at the bases Abd: soft, nontender Ext: no edema CBC, BMP 06/16/18 06:00 06/16/18 06:00 Active Medications Acetaminophen (Tylenol -) 650 mg PO Q6H PRN PRN Reason: PAIN 1-7 Last Admin: 06/14/18 22:23 Dose: 650 mg Albuterol Sulfate (Ventolin 0.083% Nebulizer Soln -) 1 amp NEB Q8H PRN PRN Reason: SHORT OF BREATH/WHEEZING Last Admin: 06/16/18 15:33 Dose: 1 amp Albuterol Sulfate (Ventolin Hfa Inhaler -) 1 puff IH Q6H PRN PRN Reason: ASTHMA Last Admin: 06/06/18 10:31 Dose: 1 puff Arformoterol Tartrate (Brovana (Restricted To Pulmonology/Resp) -) 1 amp NEB RBID [facility] Last Admin: 06/17/18 07:30 Dose: 1 amp Escitalopram Oxalate (Lexapro -) 5 mg PO DAILY [facility] Last Admin: 06/17/18 09:30 Dose: 5 mg Heparin Sodium (Porcine) (Heparin -) 5,000 unit SQ BID [facility] Last Admin: 06/17/18 09:31 Dose: 5,000 unit Insulin Aspart (Novolog Vial Sliding Scale -) 1 vial SQ ACHS [facility]; Protocol Last Admin: 06/17/18 06:09 Dose: Not Given Lactobacillus Acidophilus (Bacid -) 1 tab PO DAILY [facility] Last Admin: 06/17/18 09:30 Dose: 1 tab Levothyroxine Sodium (Synthroid -) 75 mcg PO DAILY@0700 [facility] Last Admin: 06/17/18 06:12 Dose: 75 mcg Lidocaine (Lidoderm Patch -) 1 patch TP DAILY [facility] Last Admin: 06/17/18 09:30 Dose: 1 patch Losartan Potassium (Cozaar -) 25 mg PO DAILY [facility] Last Admin: 06/17/18 09:30 Dose: 25 mg Metformin HCl (Glucophage -) 500 mg PO DAILY@0700 [facility] Last Admin: 06/17/18 06:09 Dose: 500 mg Montelukast Sodium (Singulair -) 10 mg PO [facility] Last Admin: 06/16/18 22:05 Dose: 10 mg Pantoprazole Sodium (Protonix -) 20 mg PO DAILY [facility] Last Admin: 06/17/18 09:30 Dose: 20 mg Polyethylene Glycol (Miralax (For Daily Use) -) 17 gm PO BID [facility] Last Admin: 06/17/18 09:29 Dose: 17 gm Prednisone (Deltasone -) 20 mg PO BID [facility] Last Admin: 06/17/18 09:30 Dose: 20 mg Roflumilast (Daliresp -) 500 mcg PO DAILY [facility] Last Admin: 06/17/18 09:30 Dose: 500 mcg Rosuvastatin Calcium (Crestor -) 5 mg PO [facility] Last Admin: 06/16/18 22:05 Dose: 5 mg Sodium Chloride ([place] Nasal [place] -) 2 spray NS BID [facility] Last Admin: 06/17/18 09:31 Dose: 2 spray Tiotropium [place] (Spiriva Respimat) 2 puff IH DAILY [facility] Last Admin: 06/17/18 09:31 Dose: 2 puff Valacyclovir HCl (Valtrex -) 500 mg PO BID [facility] Last Admin: 06/17/18 09:30 Dose: 500 mg A/P Acute on Chronic Hypoxic and Hypercapneic Respiratory Failure Acute COPD Exacerbation Altered Mental Status likely from Hypercapnea LV Diastolic Dysfunction NAVDEEP/OHS Hypothyroidism Hyperlipidemia - slow prednisone taper - inhaled bronchodilators - O2 to keep Spo2 88-92% - BiPAP at night and PRN during day - DVT prophylaxis - rehab/PT - d/c planning, can be transferred to [facility] for rehab from pulmonary standpoint
--- NOTE | 2018-06-17 12:25 | PN ---
Progress Note, Physician History of Present Illness: Resting comfortably. Non-productive cough, wheezing and dyspnea slowly improving. Right facial swelling improving. - Current Medication List Current Medications: Active Medications Acetaminophen (Tylenol -) 650 mg PO Q6H PRN PRN Reason: PAIN 1-7 Last Admin: 06/14/18 22:23 Dose: 650 mg Albuterol Sulfate (Ventolin 0.083% Nebulizer Soln -) 1 amp NEB Q8H PRN PRN Reason: SHORT OF BREATH/WHEEZING Last Admin: 06/16/18 15:33 Dose: 1 amp Albuterol Sulfate (Ventolin Hfa Inhaler -) 1 puff IH Q6H PRN PRN Reason: ASTHMA Last Admin: 06/06/18 10:31 Dose: 1 puff Arformoterol Tartrate (Brovana (Restricted To Pulmonology/Resp) -) 1 amp NEB RBID [facility] Last Admin: 06/17/18 07:30 Dose: 1 amp Escitalopram Oxalate (Lexapro -) 5 mg PO DAILY [facility] Last Admin: 06/17/18 09:30 Dose: 5 mg Heparin Sodium (Porcine) (Heparin -) 5,000 unit SQ BID [facility] Last Admin: 06/17/18 09:31 Dose: 5,000 unit Insulin Aspart (Novolog Vial Sliding Scale -) 1 vial SQ ACHS [facility]; Protocol Last Admin: 06/17/18 06:09 Dose: Not Given Lactobacillus Acidophilus (Bacid -) 1 tab PO DAILY [facility] Last Admin: 06/17/18 09:30 Dose: 1 tab Levothyroxine Sodium (Synthroid -) 75 mcg PO DAILY@0700 [facility] Last Admin: 06/17/18 06:12 Dose: 75 mcg Lidocaine (Lidoderm Patch -) 1 patch TP DAILY [facility] Last Admin: 06/17/18 09:30 Dose: 1 patch Losartan Potassium (Cozaar -) 25 mg PO DAILY [facility] Last Admin: 06/17/18 09:30 Dose: 25 mg Metformin HCl (Glucophage -) 500 mg PO DAILY@0700 [facility] Last Admin: 06/17/18 06:09 Dose: 500 mg Montelukast Sodium (Singulair -) 10 mg PO HS [facility] Last Admin: 06/16/18 22:05 Dose: 10 mg Pantoprazole Sodium (Protonix -) 20 mg PO DAILY [facility] Last Admin: 06/17/18 09:30 Dose: 20 mg Polyethylene Glycol (Miralax (For Daily Use) -) 17 gm PO BID [facility] Last Admin: 06/17/18 09:29 Dose: 17 gm Prednisone (Deltasone -) 20 mg PO BID [facility] Last Admin: 06/17/18 09:30 Dose: 20 mg Roflumilast (Daliresp -) 500 mcg PO DAILY [facility] Last Admin: 06/17/18 09:30 Dose: 500 mcg Rosuvastatin Calcium (Crestor -) 5 mg PO HS [facility] Last Admin: 06/16/18 22:05 Dose: 5 mg Sodium Chloride ([place] Nasal [place] -) 2 spray NS BID [facility] Last Admin: 06/17/18 09:31 Dose: 2 spray Tiotropium [place] (Spiriva Respimat) 2 puff IH DAILY [facility] Last Admin: 06/17/18 09:31 Dose: 2 puff Valacyclovir HCl (Valtrex -) 500 mg PO BID [facility] Last Admin: 06/17/18 09:30 Dose: 500 mg - Objective Vital Signs: Vital Signs Temperature 98.2 F 06/17/18 10:00 Pulse Rate 20 L 06/17/18 10:00 Respiratory Rate 86 H 06/17/18 10:00 Blood Pressure 115/74 06/17/18 10:00 O2 Sat by Pulse Oximetry (%) 95 06/17/18 09:00 Constitutional: Yes: No Distress, Calm Neck: Yes: Supple Cardiovascular: Yes: Regular Rate and Rhythm Respiratory: Yes: Regular, Diminished, On Nasal O2 Gastrointestinal: Yes: Normal Bowel Sounds, Soft Edema: No Labs: CBC, BMP 06/16/18 06:00 06/16/18 06:00 INR, PTT INR 0.97 (0.83-1.09) 05/19/18 16:15 Problem List - Problems (1) COPD exacerbation Code(s): J44.1 - CHRONIC OBSTRUCTIVE PULMONARY DISEASE W (ACUTE) EXACERBATION (2) Acute on chronic respiratory failure with hypoxia and hypercapnia Code(s): J96.21 - ACUTE AND CHRONIC RESPIRATORY FAILURE WITH HYPOXIA; J96.22 - ACUTE AND CHRONIC RESPIRATORY FAILURE WITH HYPERCAPNIA (3) Diastolic dysfunction Code(s): I51.9 - HEART DISEASE, UNSPECIFIED (4) Hyperlipidemia Code(s): E78.5 - HYPERLIPIDEMIA, UNSPECIFIED Qualifiers: Hyperlipidemia type: pure hypercholesterolemia Qualified Code(s): E78.00 - Pure hypercholesterolemia, unspecified; E78.0 - Pure hypercholesterolemia (5) Hypertension Code(s): I10 - ESSENTIAL (PRIMARY) HYPERTENSION Qualifiers: Hypertension type: essential hypertension Qualified Code(s): I10 - Essential (primary) hypertension (6) Hypothyroidism Code(s): E03.9 - HYPOTHYROIDISM, UNSPECIFIED Qualifiers: Hypothyroidism type: unspecified Qualified Code(s): E03.9 - Hypothyroidism , unspecified (7) Shortness of breath Code(s): R06.02 - SHORTNESS OF BREATH (8) Sleep apnea Code(s): G47.30 - SLEEP APNEA, UNSPECIFIED Qualifiers: Sleep apnea type: unspecified type Qualified Code(s): G47.30 - Sleep apnea , unspecified (9) Sialadenitis Code(s): K11.20 - SIALOADENITIS, UNSPECIFIED Assessment/Plan CT scan of facial bones reviewed ++right parotid swelling c/w sialadenitis, no nodule right anterior ethmoid cell opacification; bilateral sphenoid sinus air fluid levels right mastoid air cells opacified 1. Acute on chronic hypoxic and hypercapneic respiratory failure 2. Acute home O2-dependent chronic obstructive pulmonary disease exacerbation 3. Bilateral hospital-acquired pneumonia 4. Post toxic metabolic encephalopathy referable to hypercapnea 5. CAD coronary artery calcification angina pectoris 6. Diastolic LV dysfunction with chronic class I NYHA classification LV failure 7. HTN/HCVD 8. Hypercholesterolemia/mixed dyslipidemia 9. Hypothyroidism 10. Right hand hematoma 11. Anemia 12. OSAS/OHS 13. 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 ASA 81 qd, Losartan 25 mg QD and Crestor 5 mg QD as tolerated 2. Slow oral steroid taper with GI protection, BD, O2, Singulair, Daliresp, NIPPV AT NIGHT AND PRN, completed empiric levaquin course 3. DVT and GI prophylaxis 4. SNF once pulmonary status improves
[2018-06-17 14:28] VITALS: BP 111/63; TEMP 98.6
[2018-06-17] MEDS: ALBUTEROL SO4 0.083% IH SOL 2.5 MG/3 ML VIAL.NEB. NEB PRN (14:45)
[2018-06-17 15:29] VITALS: PULSE 86
== END 2018-06-17 18:20 | DRG 91 ==
LOC: JER 15:27 → JERBED 19:34 → J4W 05-20 16:15 → J7W 06-03 15:14
PROVIDERS: ADMIT Internal Medicine; ATTEND Internal Medicine
PROC: 5A09457 Assistance with Respiratory Ventilation, 24-96 Consecutive Hours, Continuous Positive Airway Pressure (ICD-10-PCS; principal; 2018-05-19)
PROC: 3E0F7GC Introduction of Other Therapeutic Substance into Respiratory Tract, Via Natural or Artificial Opening (ICD-10-PCS; 2018-05-19)
PROC: 5A09557 Assistance with Respiratory Ventilation, Greater than 96 Consecutive Hours, Continuous Positive Airway Pressure (ICD-10-PCS; 2018-05-19)
PROC: 30233N1 Transfusion of Nonautologous Red Blood Cells into Peripheral Vein, Percutaneous Approach (ICD-10-PCS; 2018-06-03)
PROC: 0T9B70Z Drainage of Bladder with Drainage Device, Via Natural or Artificial Opening (ICD-10-PCS; 2018-06-12)
DX: G72.81 Critical illness myopathy (principal); J96.21 Acute and chronic respiratory failure with hypoxia; J13 Pneumonia due to Streptococcus pneumoniae; G92 Toxic encephalopathy; J96.22 Acute and chronic respiratory failure with hypercapnia; J44.1 Chronic obstructive pulmonary disease with (acute) exacerbation; N39.0 Urinary tract infection, site not specified; G72.0 Drug-induced myopathy; G47.33 Obstructive sleep apnea (adult) (pediatric); T38.0X5A Adverse effect of glucocorticoids and synthetic analogues, initial encounter; I11.0 Hypertensive heart disease with heart failure; I50.9 Heart failure, unspecified; Z99.81 Dependence on supplemental oxygen; E03.9 Hypothyroidism, unspecified; Z87.891 Personal history of nicotine dependence; E78.2 Mixed hyperlipidemia; T80.89XD Other complications following infusion, transfusion and therapeutic injection, subsequent encounter; M79.81 Nontraumatic hematoma of soft tissue; Y84.8 Other medical procedures as the cause of abnormal reaction of the patient, or of later complication, without mention of misadventure at the time of the procedure; D69.6 Thrombocytopenia, unspecified; Z88.0 Allergy status to penicillin; S09.8XXA Other specified injuries of head, initial encounter; W18.09XA Striking against other object with subsequent fall, initial encounter; Y93.89 Activity, other specified; Y92.231 Patient bathroom in hospital as the place of occurrence of the external cause; Y99.8 Other external cause status; D63.8 Anemia in other chronic diseases classified elsewhere; I25.119 Atherosclerotic heart disease of native coronary artery with unspecified angina pectoris; D69.59 Other secondary thrombocytopenia; E87.5 Hyperkalemia; K64.9 Unspecified hemorrhoids; B00.1 Herpesviral vesicular dermatitis; K11.20 Sialoadenitis, unspecified; H57.89 Other specified disorders of eye and adnexa; J01.30 Acute sphenoidal sinusitis, unspecified; R33.9 Retention of urine, unspecified; G62.9 Polyneuropathy, unspecified; R70.0 Elevated erythrocyte sedimentation rate
CPT/HCPCS: 36415; 36600; 70450-TC; 70486-TC; 71045-TC-FY; 71250-TC; 72100-TC-FY; 72131-TC; 76700-TC; 76882-TC-RT-FY; 80048; 80053; 81003; 81015; 82085; 82140; 82272; 82550; 82552; 82607; 82728; 82746; 82803; 82962; 83010; 83036; 83540; 83550; 83605; 83615; 83880; 84425; 84439; 84443; 84466; 84481; 84484; 84550; 85025; 85044; 85379; 85610; 85651; 85730; 86022; 86038; 86140; 86162; 86200; 86225; 86431; 86850; 86880; 86900; 86901; 86922; 87040; 87086; 87186; 87899; 93005; 93010; 94640; 94660; 94761; 95860-TC; 97116-GP; 97161-GP; 99285-25; J1644; J7030; P9038; P9058

== ENCOUNTER 2018-12-25 15:10 | Inpatient (IN) | payer OTHER ==
--- NOTE | 2018-12-25 15:33 | PDOC ---
History of Present Illness - General Chief Complaint: Revisit, Lab Variance Stated Complaint: ABNORMAL LABS Time Seen by Provider: 12/25/18 15:33 History Source: Patient Exam Limitations: No Limitations - History of Present Illness Initial Comments: 12/25/18 16:18 58 year old female with PMH COPD on 3-4L O2 24/7, NAVDEEP on CPAP at night, anemia, HTN, GERD, HLD, DM, chronic back pain BIBA to ED from [facility] for increasing SOB x1 week associated with dry cough, and CO2 level>40 at [facility]. Pt reported she does not know how high her CO2 was. Pt reported she is on daily Prednisone 5 mg , but was given a higher dose of Prednisone (unknown dose) x2 days ago, albuterol nebulizer from [facility], without relief of her symptoms. Pt denied fever , chest pain, sputum production, nausea, vomiting. Pt also complained of her chronic back pain, she applied a lidoderm patch, which she stated she believes made her pain worse. Allergies: PCN (hives) Pulm: Francois PCP: Marybeth Past History - Past Medical History Allergies/Adverse Reactions: Allergies Allergy/AdvReac Type Severity Reaction Status Date / Time Penicillins Allergy Severe Difficulty Verified 12/25/18 15:20 Breathing Home Medications: Ambulatory Orders Roflumilast [Daliresp] 500 mcg PO DAILY #30 tablet 06/24/17 Montelukast Sodium [Singulair] 10 mg PO HS 04/05/18 Rosuvastatin [Crestor -] 5 mg PO HS 04/05/18 Albuterol 0.083% Nebulizer Colette [Ventolin 0.083% Nebulizer Soln -] 1 amp NEB QID PRN 05/06/18 Insulin Sliding Scale [Novolog Vial Sliding Scale -] 1 vial SQ ACHS units 06/10 Lactobacillus Acidophilus [Bacid -] 1 tab PO DAILY tab 06/10/18 Pantoprazole Sodium [Protonix -] 20 mg PO DAILY tablet.ec 06/10/18 Sodium Chloride Nasal [place] [[place] Nasal [place] -] 2 spray NS BID spray Tiotropium [place] [Spiriva Respimat] 2 puff IH DAILY inhaler 06/10/18 Heparin - 5,000 unit SQ BID vial 06/17/18 Losartan Potassium [Cozaar -] 25 mg PO DAILY tablet 06/17/18 Arformoterol Tartrate [Brovana -] 1 amp NEB BID 12/25/18 Aspirin [ASA -] 81 mg PO DAILY 12/25/18 Desloratadine/Pseudoephedrine [Clarinex-D 12 Hour Tablet] 1 tab PO DAILY Escitalopram Oxalate [Lexapro -] 5 mg PO DAILY 12/25/18 Fluticasone/Salmeterol [Advair 250-50 Diskus] 1 inh PO BID 12/25/18 Ibuprofen [Advil -] 200 mg PO TID 12/25/18 Levothyroxine [Synthroid -] 75 mcg PO DAILY@0700 12/25/18 Mag Hydrox/Al Hydrox/Simeth [Mylanta Oral Suspension -] 30 ml PO QID PRN Oxycodone HCl 5 mg PO 12/25/18 metFORMIN HCL [Glucophage -] 500 mg PO DAILY 12/25/18 predniSONE [Deltasone -] 10 mg PO BID 12/25/18 Anemia: Yes (b12 deficency) Cardiac Disorders: Yes (CHF) CVA: No COPD: Yes (O2 dependent at home 3 l nc) CHF: Yes DVT: No Dementia: No Diabetes: No HTN: Yes Hypercholesterolemia: Yes Seizures: No Thyroid Disease: Yes (hypo) - Immunization History Immunization Up to Date: Yes - Suicide/Smoking/Psychosocial Hx Smoking History: Unknown if ever smoked Have you smoked in the past 12 months: No If you are a former smoker, when did you quit?: 8 years ago Information on smoking cessation initiated: No Hx Alcohol Use: No Drug/Substance Use Hx: No Substance Use Type: None Hx Substance Use Treatment: No Review of Systems - Review of Systems Able to Perform ROS?: Yes Comments:: 12/25/18 16:20 General: denied fever, chills, generalized weakness. HEENT: denied sore throat, rhinorrhea, ear pain. Heart: denied chest pain, palpitations, syncope, diaphoresis. Respiratory: admitted to shortness of breath, cough. denied sputum production, hemoptysis. Abdomen: denied abdominal pain, nausea, vomiting, diarrhea, constipation, blood in stool. : denied dysuria, increased urinary frequency, hematuria, urinary incontinence , flank pain. Back: admitted to back pain. Musculoskeletal: denied joint pain, muscle pain, joint swelling. Neurological: denied headache, dizziness, numbness, tingling, weakness. Skin: denied rash, laceration, abrasion. *Physical Exam - Vital Signs Last Vital Signs Temp Pulse Resp BP Pulse Ox 98.1 F 72 16 137/82 98 12/25/18 15:13 12/25/18 15:13 12/25/18 15:13 12/25/18 15:13 12/25/18 15:13 - Physical Exam Comments: 12/25/18 16:21 Constitutional: Well-nourished, Well-developed, appearing stated age. obese. HEENT: head is normocephalic, atraumatic. EOMI. PERRLA. Neck: supple. Full ROM. short, thick neck. Heart: regular rhythm. no murmurs, rubs or gallops. Lungs: decreased breath sounds to right base. coarse breathsounds throughout. poor inspiratory effort. no stridor. mild wheezing bilaterally. speaking full sentences. Abdomen: soft, nontender. normal bowel sounds. no rebound, guarding, masses. Extremities: peripheral pulses intact. no lower extremity edema. Neurological: CN 2-12 grossly intact. moves all four extremities. Psych: awake, alert, oriented x3. follows commands. answers questions appropriately. ED Treatment Course - LABORATORY CBC & Chemistry Diagram: 12/25/18 16:10 12/25/18 15:42 Medical Decision Making - Medical Decision Making 12/25/18 16:22 58 year old female with above PMH presented to ED for increasing SOB, nonproductive cough, elevated CO2 level. Initial Vital Signs Temp Pulse Resp BP Pulse Ox 98.1 F 72 16 137/82 98 12/25/18 15:13 12/25/18 15:13 12/25/18 15:13 12/25/18 15:13 12/25/18 15:13 Afebrile. No tachycardia. No tachypnea. Mild hypertension. No hypoxia on room air. Labs ordered: CBC, CMP, VBG Imaging ordered: CXR Medications ordered: duonebx3, solumedrol IV, magnesium 2g IV once Last ECHO 09/2015: normal LVEF 12/25/18 17:11 CBC WBC 25.4 K/mm3 (4.0-10.0) H 12/25/18 16:10 RBC 3.79 M/mm3 (3.60-5.2) 12/25/18 16:10 Hgb 10.8 GM/dL (10.7-15.3) 12/25/18 16:10 Hct 33.8 % (32.4-45.2) D 12/25/18 16:10 MCV 89.1 fl (80-96) 12/25/18 16:10 MCH 28.4 pg (25.7-33.7) 12/25/18 16:10 MCHC 31.9 g/dl (32.0-36.0) L 12/25/18 16:10 RDW 15.7 % (11.6-15.6) H 12/25/18 16:10 Plt Count 423 K/MM3 (134-434) D 12/25/18 16:10 MPV 8.0 fl (7.5-11.1) 12/25/18 16:10 Absolute Neuts (auto) 24.0 K/mm3 (1.5-8.0) H 12/25/18 16:10 Neutrophils % 94.5 % (42.8-82.8) H 12/25/18 16:10 Lymphocytes % 1.1 % (8-40) L D 12/25/18 16:10 Monocytes % 3.6 % (3.8-10.2) L 12/25/18 16:10 Eosinophils % 0.1 % (0-4.5) 12/25/18 16:10 Basophils % 0.7 % (0-2.0) D 12/25/18 16:10 Nucleated RBC % 0 % (0-0) 12/25/18 16:10 Leukocytosis with left shift. No anemia. CMP Sodium 134 mmol/L (136-145) L 12/25/18 15:42 Potassium 5.1 mmol/L (3.5-5.1) 12/25/18 15:42 Chloride 94 mmol/L (98-107) L 12/25/18 15:42 Carbon Dioxide 37 mmol/L (21-32) H 12/25/18 15:42 Anion Gap 3 MMOL/L (8-16) L 12/25/18 15:42 BUN 17.7 mg/dL (7-18) 12/25/18 15:42 Creatinine 0.6 mg/dL (0.55-1.3) 12/25/18 15:42 Est GFR (CKD-EPI)AfAm 118.09 12/25/18 15:42 Est GFR (CKD-EPI)NonAf 101.89 12/25/18 15:42 Random Glucose 106 mg/dL (74-106) 12/25/18 15:42 Calcium 9.1 mg/dL (8.5-10.1) 12/25/18 15:42 Total Bilirubin 0.4 mg/dL (0.2-1) 12/25/18 15:42 AST 35 U/L (15-37) 12/25/18 15:42 ALT 16 U/L (13-61) 12/25/18 15:42 Alkaline Phosphatase 115 U/L (45-117) 12/25/18 15:42 Troponin I < 0.02 ng/ml (0.00-0.05) 12/25/18 15:42 B-Natriuretic Peptide 176.7 pg/ml (5-125) H 12/25/18 15:42 Total Protein 6.1 g/dl (6.4-8.2) L 12/25/18 15:42 Albumin 2.6 g/dl (3.4-5.0) L 12/25/18 15:42 Mild hyponatremia - not clinically significant. No JAIMEE. No transaminitis. Troponin wnl BNP mildly elevated VBG - pH 7.39, CO2 retention. -Pending ABG. CXR shows poor inspiration - difficult to interpret for infiltrate - PA/Lateral CXR ordered. 12/25/18 17:30 ABG Results ABG pH 7.48 (7.35-7.45) H 12/25/18 17:07 ABG pCO2 at Pt Temp 47.6 mmHg (35-45) H 12/25/18 17:07 ABG pO2 at Pt Temp 156 mmHg (80-105) H 12/25/18 17:07 ABG HCO3 35.4 mmol/L (22-27) H 12/25/18 17:07 ABG O2 Sat (Measured) 99.6 % (95-98) H 12/25/18 17:07 ABG O2 Content 15.5 % vol (15-22) 12/25/18 17:07 ABG Base Excess 10.8 meq/l (-2-2) H 12/25/18 17:07 Metabolic alkalosis. Mild CO2 retention. 12/25/18 18:08 1 View CXR report: Hypoventilatory examination with slightly prominent bronchovascular markings in both lungs, right greater than left, which is a nonspecific finding in hypoventilatory examination, but it can be seen in setting of borderline/mild pulmonary venous congestion. no focal consolidation or pulmonary mass. small right sided pleural effusion suspected. Pneumothorax. -Pending PA/Lateral report. 12/25/18 18:33 PA/Lateral CXR shows possible RLL infiltrate. -Pending official report Medications ordered: Vancomycin and Aztreonam 2g IV -PCN allergy: hives 12/25/18 18:[address] Parrish about the patient, he will follow. 12/25/18 18:[address] Taylor about the patient, who agrees with admission. Pending admission. 12/25/18 19:06 PA/Lateral CXR report: FINDINGS: The cardiomediastinal silhouette is normal. Hypoventilatory examination with mild to moderate degree pulmonary venous congestion and moderate degree right pleural effusion with compressive subsegmental atelectasis of the right lower lung field. The possibly of underlying pneumonitis cannot be excluded.. No pneumothorax. Probable compression fracture of lower thoracic spine. Recommend thoracic spine MRI to further characterize *DC/Admit/Observation/Transfer Diagnosis at time of Disposition: Leukocytosis, Shortness of breath, Cough, Compression fracture - Discharge Dispostion Condition at time of disposition: Stable Decision to Admit order: Yes - Referrals - Patient Instructions - Post Discharge Activity
[2018-12-25] MEDS ORDERED: ALBUTEROL SO4 2.5/IPRATROPIUM 0.5 INH SOL 3 ML VIAL.NEB. NEB ONE ×2 (16:16→17:04)
[2018-12-25 16:25] LABS: VENOUS PC02 62.8 mmHg (41-51); VENOUS PH 7.39 (7.31-7.41); VENOUS PO2 42.8 mmHg (30-40)
[2018-12-25 16:26] LABS: BASO % 0.7 % (0-2.0); EOS % 0.1 % (0-4.5); HEMATOCRIT 33.8 % (32.4-45.2); HEMOGLOBIN 10.8 GM/dL (10.7-15.3); LYMPH % 1.1 % (8-40); MCH 28.4 pg (25.7-33.7); MCHC 31.9 g/dl (32.0-36.0); MEAN CELL VOLUME 89.1 fl (80-96); MONO % 3.6 % (3.8-10.2); NEUT % 94.5 % (42.8-82.8); PLATELET COUNT 423 K/MM3 (134-434); RBC 3.79 M/mm3 (3.60-5.2); RDW 15.7 % (11.6-15.6); WHITE BLOOD COUNT 25.4 K/mm3 (4.0-10.0)
[2018-12-25] MEDS ORDERED: MAGNESIUM SULF 50% (8.12 MEQ/2 ML-1 GM VIAL) IVPB ONE (16:27)
[2018-12-25] MEDS ORDERED: methylPREDNISolone NA SUCC 125 MG/2 ML VIAL IVPUSH ONE (16:27)
[2018-12-25 16:37] LABS: ALBUMIN 2.6 g/dl (3.4-5.0); ALK PHOS 115 U/L (45-117); ANION GAP 3 MMOL/L (8-16); BILIRUBIN,TOTAL 0.4 mg/dL (0.2-1); BLOOD UREA NITROGEN 17.7 mg/dL (7-18); CALCIUM 9.1 mg/dL (8.5-10.1); CHLORIDE 94 mmol/L (98-107); CO2 37 mmol/L (21-32); CREATININE 0.6 mg/dL (0.55-1.3); GLUCOSE,RANDOM 106 mg/dL (74-106); POTASSIUM 5.1 mmol/L (3.5-5.1); SGOT/AST 35 U/L (15-37); SGPT/ALT 16 U/L (13-61); SODIUM 134 mmol/L (136-145); TOT PROT 6.1 g/dl (6.4-8.2)
[2018-12-25] MEDS ORDERED: MAGNESIUM 1GM/D5W - 2 GM/200 ML IVPB IVPB ONE (17:04)
[2018-12-25] MEDS ORDERED: methylPREDNISolone NA SUCC 125 MG/2 ML VIAL ONE (17:04)
[2018-12-25 17:11] LABS: ARTERIAL BLD GAS O2 SATURATION 99.6 % (95-98); ARTERIAL BLOOD GAS BASE EXCESS 10.8 meq/l (-2-2); ARTERIAL BLOOD GAS PCO2 47.6 mmHg (35-45); ARTERIAL BLOOD GAS PO2 156 mmHg (80-105); ARTERIAL BLOOD GAS pH 7.48 (7.35-7.45); CARBOXYHEMOGLOBIN 1.1 % (0-2)
--- NOTE | 2018-12-25 17:55 | PDOC ---
Documentation entered by Aleksandra Hernandez SCRIBE, acting as scribe for Livia Cramer MD. Livia Cramer MD: This documentation has been prepared by the scribe, Aleksandra Hernandez SCRIBE, under my direction and personally reviewed by me in its entirety. I confirm that the documentation accurately reflects all work, treatment, procedures, and medical decision making performed by me. Attending Attestation - Resident Resident Name: JimenaVal - ED Attending Attestation I have performed the following: I have examined & evaluated the patient, The case was reviewed & discussed with the resident, I agree w/resident's findings & plan, Exceptions are as noted - HPI HPI: 12/25/18 17:32 The patient is a 58 year old female with a significant past medical history of COPD. CHF, NAVDEEP, hypertension, hyperlipidemia and hypothyroidism who presents to the emergency department from [facility] with abnormal labs since earlier today. The patient states that she has been experiencing some increasing shortness of breath for about 1 week. She endorses some associated dry cough with her shortness of breath. The patient was noted to have increased CO2 levels of greater than 40 by which she was sent to the ED for further evaluation. The patient states that she was previously on Prednisone which was increased in dosage but states that it did not relieve her symptoms. The patient denies any other symptoms or complaints. - Physicial Exam PE: GENERAL: Awake, alert, and fully oriented, in no acute distress HEAD: No signs of trauma EYES: PERRLA, EOMI, sclera anicteric, conjunctiva clear ENT: Auricles normal inspection, hearing grossly normal, nares patent, oropharynx clear without exudates. Moist mucosa NECK: Normal ROM, supple, no lymphadenopathy, JVD, or masses LUNGS: Dec air entry B/L with diffuse rhonchi B/L. Intermittent loose cough HEART: Regular rate and rhythm, normal S1 and S2, no murmurs, rubs or gallops ABDOMEN: Soft, nontender, normoactive bowel sounds. No guarding, no rebound. No masses EXTREMITIES: Normal range of motion, no edema. No clubbing or cyanosis. No cords, erythema, or tenderness NEUROLOGICAL: Cranial nerves II through XII grossly intact. Normal speech. Motor and sensation intact SKIN: Warm, Dry, normal turgor, no rashes. - Medical Decision Making Pt sent by [facility] for high CO2 as found on labs. She is currently on steroids for COPD, abx for decubitus ulcer. Noted to have leukocytosis, high CO2 on VBG. Will obtain ABG to confirm, and will d/w Dr. Parrish to see if she is a chronic retainer, as she is awake, speaking full sentences, no distress. Will obtain PA/ Lat CXR, as portable was inadequate. Concern for poss pna.
[2018-12-25 18:15] LABS: N-TERMINAL BNP 176.7 pg/ml (5-125)
[2018-12-25] MEDS ORDERED: AZTREONAM 2 GM in DEXTROSE 5%-WATER 100 ML IVPB ONE (18:34)
[2018-12-25] MEDS ORDERED: VANCOMYCIN 1,000 MG in DEXTROSE 5%-WATER - 250 ML IVPB ONE (18:34)
[2018-12-25] MEDS ORDERED: AZTREONAM 1 GM VIAL (RESTRICTED TO ID) ONE (18:47)
[2018-12-25] MEDS ORDERED: VANCOMYCIN 1 GRAM (PRE-DOCKED) 1,000 MG/250 ML BAG IVPB ONE (18:48)
[2018-12-25 21:08] LABS: ANISOCYTOSIS 1+; MACROCYTOSIS 0; PLATELET ESTIMATE NORMAL
[2018-12-25] MEDS ORDERED: MAG HYDROX/AL HYDROX/SIMETH 30 ML UNIT-DOSE CUP PO PRN (21:49)
[2018-12-25] MEDS ORDERED: oxyCODONE HCL 5 MG TABLET PO PRN (21:52)
[2018-12-25] MEDS: ARFORMOTEROL TARTRATE 15 MCG/2 ML VIAL NEB SCH (22:00)
[2018-12-25] MEDS ORDERED: INSULIN SLIDING SCALE (NOVOLOG) 1 VIAL SQ SCH (22:00)
[2018-12-25] MEDS ORDERED: ALBUTEROL SO4 0.083% IH SOL 2.5 MG/3 ML VIAL.NEB. NEB ONE (22:15)
[2018-12-25] MEDS ORDERED: oxyCODONE HCL 5 MG TABLET PO ONE (22:15)
[2018-12-25] MEDS: MONTELUKAST NA 10 MG TABLET PO SCH (22:20)
[2018-12-25] MEDS: ROSUVASTATIN CA 5 MG TABLET (FP) PO SCH (22:20)
[2018-12-25] MEDS: HEPARIN NA (PORCINE) 5,000 UNITS/ML 1ML VIAL SQ SCH (22:22)
[2018-12-25] MEDS ORDERED: INSULIN (NOVOLOG) ASPART 100 UNITS/ML 10ML VIAL ONE (22:50)
[2018-12-25] MEDS: SODIUM CHLORIDE NASAL SPRAY 44 ML BOTTLE NS SCH (22:59)
--- NOTE | 2018-12-26 01:32 | PN ---
Progress Note (short form) - Note Progress Note: I was called by ER last evening regarding Peace's admission from [facility] with PNA, cough SOB and mild CO2 retention, she has h/o severe / advanced COPD O2 dep; per ER pt is stable for regular floor; a little bit later I was called by floor nurse Liliane that pt has back pain, chronic, and she is asking for oxycodone (she was on oxycodone 5 mg prn before), which I ordered; at 1 am I was called again by nurse that pt has some severe R sided abdominal pain and she is anxious - the abdominal pain seems to be new; she is stable but very anxious (h/o anxiety) - I asked for stat abdomen pelvic CT scan no IVC and hospitalist / resident eval stat; will also get chest CT given abNL CXR; if pt' s condition becomes worse or unstable I suggested to transfer pt to ICU; d/w nurse Liliane.
[2018-12-26] MEDS: ACETAMINOPHEN 325 MG TABLET (FP) PO PRN (03:07)
[2018-12-26] MEDS: methylPREDNISolone NA SUCC 40 MG/1 ML VIAL IVPUSH SCH ×3 (03:07→18:08)
[2018-12-26] MEDS: ALBUTEROL SO4 0.083% IH SOL 2.5 MG/3 ML VIAL.NEB. NEB PRN ×2 (04:30→11:36)
[2018-12-26] MEDS: INSULIN SLIDING SCALE (NOVOLOG) 1 VIAL SQ SCH ×4 (06:32→21:12)
[2018-12-26] MEDS: metFORMIN HCL 500 MG TABLET (FP) PO SCH (06:32)
[2018-12-26] MEDS: LEVOTHYROXINE NA 75 MCG TABLET (FP) PO SCH (06:32)
[2018-12-26] MEDS ORDERED: INSULIN (NOVOLOG) ASPART 100 UNITS/ML 10ML VIAL SQ SCH (07:00)
--- NOTE | 2018-12-26 07:09 | PN ---
Progress Note (short form) - Note Progress Note: PULMONARY CONSULTATION DICTATED 12/26/18 IMP ACUTE ON CHRONIC HYPOXEMIC /HYPERCAPNEIC RESPIRATORY FAILURE COPD EXACERBATION PLEURAL EFFUSION ABDOMINAL PAIN CHF HLD HYPOTHYROID OSAS PLAN O2 INHALED BRONCHODILATORS STEROIDS CHEST/ABD CT GI EVALUATION BIPAP AT NIGHT AND PRN DR MEDEIROS Problem List - Problems (1) Abdominal pain Code(s): R10.9 - UNSPECIFIED ABDOMINAL PAIN (2) COPD exacerbation Code(s): J44.1 - CHRONIC OBSTRUCTIVE PULMONARY DISEASE W (ACUTE) EXACERBATION (3) Cough Code(s): R05 - COUGH (4) Leukocytosis Code(s): D72.829 - ELEVATED WHITE BLOOD CELL COUNT, UNSPECIFIED (5) Shortness of breath Code(s): R06.02 - SHORTNESS OF BREATH (6) Acute and chronic respiratory failure with hypoxia Code(s): J96.21 - ACUTE AND CHRONIC RESPIRATORY FAILURE WITH HYPOXIA (7) Acute diastolic (congestive) heart failure Code(s): I50.31 - ACUTE DIASTOLIC (CONGESTIVE) HEART FAILURE (8) Acute on chronic respiratory failure with hypoxia and hypercapnia Code(s): J96.21 - ACUTE AND CHRONIC RESPIRATORY FAILURE WITH HYPOXIA; J96.22 - ACUTE AND CHRONIC RESPIRATORY FAILURE WITH HYPERCAPNIA (9) Pleural effusion Code(s): J90 - PLEURAL EFFUSION, NOT ELSEWHERE CLASSIFIED (10) Hyperlipidemia Code(s): E78.5 - HYPERLIPIDEMIA, UNSPECIFIED Qualifiers: Hyperlipidemia type: pure hypercholesterolemia Qualified Code(s): E78.00 - Pure hypercholesterolemia, unspecified; E78.0 - Pure hypercholesterolemia (11) Hypertension Code(s): I10 - ESSENTIAL (PRIMARY) HYPERTENSION Qualifiers: Hypertension type: essential hypertension Qualified Code(s): I10 - Essential (primary) hypertension (12) Hypothyroidism Code(s): E03.9 - HYPOTHYROIDISM, UNSPECIFIED Qualifiers: Hypothyroidism type: unspecified Qualified Code(s): E03.9 - Hypothyroidism , unspecified (13) Pneumonia Code(s): J18.9 - PNEUMONIA, UNSPECIFIED ORGANISM (14) Sleep apnea Code(s): G47.30 - SLEEP APNEA, UNSPECIFIED Qualifiers: Sleep apnea type: unspecified type Qualified Code(s): G47.30 - Sleep apnea , unspecified
[2018-12-26] MEDS: ARFORMOTEROL TARTRATE 15 MCG/2 ML VIAL NEB SCH ×2 (07:25→19:56)
[2018-12-26 07:30] LABS: BASO % 0.3 % (0-2.0); HEMATOCRIT 31.3 % (32.4-45.2); HEMOGLOBIN 10.3 GM/dL (10.7-15.3); LYMPH % 1.1 % (8-40); MCHC 32.9 g/dl (32.0-36.0); MEAN CELL VOLUME 88.2 fl (80-96); MEAN PLT VOLUME 8.2 fl (7.5-11.1); MONO % 1.5 % (3.8-10.2); NEUT % 97.1 % (42.8-82.8); RBC 3.55 M/mm3 (3.60-5.2); RDW 15.4 % (11.6-15.6); WHITE BLOOD COUNT 20.7 K/mm3 (4.0-10.0)
[2018-12-26 08:02] LABS: N-TERMINAL BNP 198.2 pg/ml (5-125)
[2018-12-26 08:06] LABS: ALBUMIN 2.6 g/dl (3.4-5.0); BILIRUBIN,TOTAL 0.7 mg/dL (0.2-1); BLOOD UREA NITROGEN 17.1 mg/dL (7-18); CALCIUM 8.9 mg/dL (8.5-10.1); CREATININE 0.6 mg/dL (0.55-1.3); POTASSIUM 4.5 mmol/L (3.5-5.1); TOT PROT 5.7 g/dl (6.4-8.2)
[2018-12-26 08:37] LABS: PLATELET COUNT 422 K/MM3 (134-434)
--- NOTE | 2018-12-26 09:11 | HP ---
Admitting History and Physical - Primary Care Physician PCP: Agustina Taylor S - Admission Chief Complaint: SOB cough History of Present Illness: 58 year old female with PMH advanced severe COPD on 3-4L O2 24/7, NAVDEEP on CPAP at night, anemia, HTN, GERD, HLD, DM, chronic back pain BIBA to ED from [facility] for increasing SOB x1 - 2 weeks associated with dry cough. Pt is a chronic CO2 retainer. Pt is on chronic Prednisone 5 mg, but was given a higher dose of Prednisone x2 days ago, albuterol nebulizer from [facility], without relief of her symptoms. Pt denied fever, chest pain, sputum production, nausea, vomiting. Pt also complained of her chronic back pain, she applied a lidoderm patch, which she stated she believes made her pain worse. Last night had also pain in her abdomen R sided coming from her back; worse with moving d/w pt and pt's and daughter at bedside - pt was in [facility] for over 6 months, she was doing well with PT rehab, able to walk with help until 2 weeks ago when she got weaker and more SOB; did not get OOB in 1-2 weeks so she started to develop sacral decubs. Since pt was in [place] she was not able to do any consults and tests as previously discussed (like eval for lung transplant, health maintenance). Pt denies N/V/C/D/ fever/chills/ dysuria/ PEREZ/ LOC/ focal c/o pt said she had back pain on/off in [place] and she was on oxycodone for awhile; she asked to continue it here; dw pt possible risks and SE falls tolerance dependence also d/w pt and family possible steroids SE (HTN, DM, Cushingoid appearance, OP ) History Source: Patient, Family Member, Medical Record - Past Medical History Cardiovascular: Yes: CHF (end diastolic), HTN, Hyperlipdemia Pulmonary: Yes: COPD, O2 Dependent, Sleep Apnea Gastrointestinal: Yes: Constipation ...LMP: 06/03/14 Heme/Onc: Yes: Anemia Infectious Disease: Yes: Other (pneumonia) Musculoskeletal: Yes: Chronic low back pain Endocrine: Yes: Hypothyroidism - Past Surgical History Past Surgical History: Yes: - Smoking History Smoking history: Unknown if ever smoked Have you smoked in the past 12 months: No If you are a former smoker, when did you quit?: 8 years ago - Alcohol/Substance Use Hx Alcohol Use: No History of Substance Use: reports: None - Social History Usual Living Arrangement: Yes: Shelter ADL: Family Assistance 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 History of Recent Travel: No Home Medications - Allergies Allergies/Adverse Reactions: Allergies Allergy/AdvReac Type Severity Reaction Status Date / Time Penicillins Allergy Severe Difficulty Verified 12/25/18 15:20 Breathing - Home Medications Home Medications: Ambulatory Orders Roflumilast [Daliresp] 500 mcg PO DAILY #30 tablet 06/24/17 Montelukast Sodium [Singulair] 10 mg PO HS 04/05/18 Rosuvastatin [Crestor -] 5 mg PO HS 04/05/18 Albuterol 0.083% Nebulizer Colette [Ventolin 0.083% Nebulizer Soln -] 1 amp NEB QID PRN 05/06/18 Insulin Sliding Scale [Novolog Vial Sliding Scale -] 1 vial SQ ACHS units 06/10 Lactobacillus Acidophilus [Bacid -] 1 tab PO DAILY tab 06/10/18 Pantoprazole Sodium [Protonix -] 20 mg PO DAILY tablet.ec 06/10/18 Sodium Chloride Nasal [place] [[place] Nasal [place] -] 2 spray NS BID spray Tiotropium [place] [Spiriva Respimat] 2 puff IH DAILY inhaler 06/10/18 Heparin - 5,000 unit SQ BID vial 06/17/18 Losartan Potassium [Cozaar -] 25 mg PO DAILY tablet 06/17/18 Arformoterol Tartrate [Brovana -] 1 amp NEB BID 12/25/18 Aspirin [ASA -] 81 mg PO DAILY 12/25/18 Desloratadine/Pseudoephedrine [Clarinex-D 12 Hour Tablet] 1 tab PO DAILY Escitalopram Oxalate [Lexapro -] 5 mg PO DAILY 12/25/18 Fluticasone/Salmeterol [Advair 250-50 Diskus] 1 inh PO BID 12/25/18 Ibuprofen [Advil -] 200 mg PO TID 12/25/18 Levothyroxine [Synthroid -] 75 mcg PO DAILY@0700 12/25/18 Mag Hydrox/Al Hydrox/Simeth [Mylanta Oral Suspension -] 30 ml PO QID PRN Oxycodone HCl 5 mg PO 12/25/18 metFORMIN HCL [Glucophage -] 500 mg PO DAILY 12/25/18 predniSONE [Deltasone -] 10 mg PO BID 12/25/18 Family Disease History - Family Disease History Family Disease History: Respiratory: Father ( 80 of COPD), Brother ( of COPD), Other: Father, Mother ( 82 unknown reason) Review of Systems - Review of Systems Constitutional: reports: Weakness (general). denies: Chills, Fever, Lethargy, Loss of Appetite Eyes: denies: Blind Spots, Blurred Vision, Double Vision, Eye Pain HENT: denies: Difficult Swallowing, Ear Discharge, Ear Pain, Epistaxis Neck: denies: Decreased ROM, Pain on Movement, Stiffness Cardiovascular: reports: Shortness of Breath. denies: Chest Pain, Edema, Palpitations Respiratory: reports: Cough, SOB. denies: Hemoptysis, Orthopnea, PND, Wheezing Gastrointestinal: reports: Abdominal Pain. denies: Bloating, Constipation, Diarrhea, Dysphagia, Rectal Bleeding, Vomiting, Vomiting Blood Genitourinary: denies: Burning, Discharge, Dysuria, Flank Pain, Vaginal Bleeding Musculoskeletal: reports: Back Pain, Muscle Weakness (general). denies: Extremity Pain, Joint Pain, Muscle Pain, Muscle Cramps Integumentary: reports: Wound (R buttocks). denies: Blister, Lesions, Pallor, Pruritis, Rash Neurological: reports: Unsteady Gait, Weakness (general). denies: Change in LOC , Change in Speech, Confusion, Dizziness Endocrine: denies: Unexplained Weight Gain, Unexplained Weight Loss Hematology/Lymphatic: reports: Easily Bruised. denies: Excessive Bleeding, Swollen Glands Psychiatric: reports: Anxiety. denies: Altered Sleep Pattern, Depression, Hallucinations, Paranoia, Suicidal Physical Examination Vital Signs: Vital Signs Temperature 98.5 F 12/26/18 06:00 Pulse Rate 72 12/26/18 06:00 Respiratory Rate 20 12/26/18 06:00 Blood Pressure 124/72 12/26/18 06:00 O2 Sat by Pulse Oximetry (%) 90 L 12/26/18 01:31 Constitutional: Yes: No Distress, Calm Eyes: Yes: Conjunctiva Clear HENT: Yes: Atraumatic Neck: Yes: Supple Cardiovascular: Yes: Regular Rate and Rhythm Respiratory: Yes: Diminished Gastrointestinal: Yes: Soft. No: Distention, Tenderness Renal/: No: CVA Tenderness - Left, CVA Tenderness - Right, Hematuria Musculoskeletal: No: Joint Stiffness, Joint Swelling Extremities: No: Cold, Cool, Cyanosis Edema: No Integumentary: No: Venous Stasis Changes Wound/Incision: Yes: Other (sacral decubs R sided closed, L sided 2 open lesions ) Neurological: Yes: WNL, Alert, Oriented. No: Tremors ...Motor Strength: WNL Psychiatric: Yes: WNL, Alert, Oriented. No: Agitated, Suicidal Ideation Labs: CBC, BMP 12/26/18 06:40 12/26/18 06:40 Imaging - Results Chest X-ray: Report Reviewed Other: Report Reviewed Assessment/Plan 58 year old female with PMH advanced severe COPD on 3-4L O2 19/01, NAVDEEP on CPAP at night, anemia, HTN, GERD, HLD, DM, chronic back pain BIBA to ED from [facility] for increasing SOB x1 week associated with dry cough, PNA, back pain radiating to her R side of the abdomen, high WBC, decubs; r/o sepsis ID eval; surgery eval for decusb; d/w pt and family and staff turn q1h, OOB to chair; IV ATB per ID: IV steroids; pulm eval . stools softeners spine CT c/w multiple compression fractures; will send spep upep, neurology eval ; possible risks and ZSE of opaites and chronic steroids d/w pt and family; if possible try to taper both to off falls PFX; do not get OOB alone; call for help if needed prognosis guarded d/w pt and staff d/w pot's family at bedside, will call dr Navarro pt's PCP/
[2018-12-26] MEDS ORDERED: PT OWN MED DRAWER 7, Y5N ONE (09:18)
[2018-12-26] MEDS: LOSARTAN POTASSIUM 25 MG TABLET PO SCH (09:23)
[2018-12-26] MEDS: PANTOPRAZOLE 20 MG TABLET (FP) PO SCH (09:23)
[2018-12-26] MEDS: ESCITALOPRAM OXALATE 10 MG TABLET (FP) PO SCH (09:23)
[2018-12-26] MEDS: LACTOBACILLUS ACIDOPHILUS 1 TABLET PO SCH (09:23)
[2018-12-26] MEDS: ASPIRIN 81 MG CHEWABLE TABLETS PO SCH (09:25)
[2018-12-26] MEDS: ROFLUMILAST 500 MCG TABLET PO SCH (09:25)
[2018-12-26] MEDS: HEPARIN NA (PORCINE) 5,000 UNITS/ML 1ML VIAL SQ SCH ×2 (09:31→21:12)
[2018-12-26] MEDS: TIOTROPIUM BROMIDE 2.5 MCG (SPIRIVA) RESPIMAT INHALER IH SCH (10:13)
[2018-12-26] MEDS: SODIUM CHLORIDE NASAL SPRAY 44 ML BOTTLE NS SCH ×2 (10:14→21:23)
[2018-12-26 11:34] LABS: ANISOCYTOSIS 0; HELMET CELLS 0; HOWELL-JOLLY BODIES 0; MACROCYTOSIS 0; OVALOCYTE 0; PLATELET ESTIMATE NORMAL; ROULEAU 0; SICKELED CELLS 0; TARGET CELLS 0; TEAR DROP CELLS 0; TOXIC GRANULATION 0
--- NOTE | 2018-12-26 12:44 | CONS ---
DATE OF CONSULTATION: 12/26/2018 REFERRING PHYSICIAN: Agustina Taylor MD The patient is a 58-year-old white female, known to me from previous hospitalizations and office followup, with past medical history of end-stage COPD, on home O2, with chronic hypoxemic hypercapnic respiratory failure, history of respiratory failure in the past, on ventilatory support as well as BiPAP, congestive heart failure, obstructive sleep apnea, on CPAP, hypertension, hyperlipidemia, hypothyroidism, resident of a [facility], transferred to [facility] on December 25 with increasing shortness of breath. Patient states for the past 2 weeks or so, she has been having increasing shortness of breath, cough, and dyspnea on exertion. Apparently had a chest x-ray performed. She was started on a higher dose of steroids, without any improvement. She also had complaint of a cough, nonproductive. Denied any fevers, chills, hemoptysis. At the long-term, apparently she had increased CO2 levels on a basic profile, at which time she was transferred to [facility] ER. In the ER, she was also complaining of right upper quadrant abdominal pain, which has been going on for approximately a week. She denies any nausea, has vomiting. She states that she has not had a bowel movement in a couple of days. The patient, in the ER, was treated, was transferred to medical floor. She was started on Solu-Medrol, inhaled bronchodilators. Of note is chest x-ray on admission revealed now right pleural effusion. Past medical history, again, includes advanced COPD, on home O2, chronic hypoxemic hypercapnic respiratory failure, congestive heart failure, hypertension, hyperlipidemia, obstructive sleep apnea, hypothyroidism. REVIEW OF SYSTEMS: Positive shortness of breath, positive cough, positive abdominal pain. No nausea, no vomiting, no hemoptysis. No lower extremity edema. Current medications include Solu-Medrol 40 q.8, Tylenol, Cozaar, Mylanta, heparin, Lexapro, Bacid, Spiriva, albuterol, Brovana, Glucophage, [place] nasal spray, NovoLog, Singulair, aspirin, Roxicodone, Protonix, Daliresp, Synthroid. PHYSICAL EXAMINATION: General: The patient is a well-developed, well-nourished female, awake, alert, in moderate distress secondary to abdominal pain. Vital Signs: She is afebrile. Blood pressure 134/76. Respiratory rate 24. O2 saturation is 94% on 3 L. HEENT: Normocephalic, atraumatic. Neck: Supple. Heart: Regular, S1, S2. Chest: Diminished breath sounds bilaterally with few scattered wheezes. Abdomen: Distended. Diminished bowel sounds. Extremities: No cyanosis, edema. LABORATORY DATA: WBC is 20.7, hemoglobin 10.3, hematocrit 31.3, with a platelet count of 422,000, with 97 polys, 1 lymph, 1 mono. Blood gas: pH 7.48, pCO2 of 47, a p.o. of 156, bicarbonate of 35, saturation 99.6, on unknown quantity of oxygen. BUN 17, creatinine 0.6, IMPRESSION: Acute on chronic hypoxemic hypercapnic respiratory failure secondary to: 1. Chronic obstructive pulmonary disease with acute exacerbation. 2. Right pleural effusion, etiology to be determined. Rule out possible congestive heart failure, rule out possible parapneumonic effusion. 3. Abdominal pain. 4. Congestive heart failure. 5. Hyperlipidemia. 6. Hypothyroidism. 7. Obstructive sleep apnea. PLAN: Supplemental O2, inhaled bronchodilators, steroids, antibiotics as per Infectious Disease. Obtain CT scan of the chest and abdomen. Consider GI evaluation. Continue BiPAP at night as well as p.r.n. Monitor electrolytes as well as CBC. CARLOS MANUEL MEDEIROS M.D. LANG/[id number]
--- NOTE | 2018-12-26 14:26 | CON.ID ---
Consult Consult Specialty:: infectious disease Referred by:: dr bateman Reason for Consultation:: leukocytosis - History of Present Illness Chief Complaint: [place] [facility] [place]- elevated co2 History of Present Illness: 58 yo female NHR endstage copd on oxygen, nightly CPAPA, sent from [place] for abnl labs- she notes she has been weaker then usual for the last week, has not been able to do PT 9prior had been making good progress) also dry cough with pain radiating from her midepigastric area to her right flank no fevers or chills no dysuria no diarrhea today reports cough better but continued pain just returned form ct scan- pending pain has been for one week now on prednisone 10 bid at [facility] recently strted on bactrim for buttock abscesses received vanco and azactam in the ed - History Source History Provided By: Patient, Family Member Limitations to Obtaining History: No Limitations - Past Medical History Cardio/Vascular: Yes: CHF (end diastolic), HTN, Hyperlipdemia Pulmonary: Yes: COPD, O2 Dependent, Sleep Apnea Gastrointestinal: Yes: Constipation ...LMP: 06/03/14 Infectious Disease: Yes: Other (pneumonia) Musculoskeletal: Yes: Chronic low back pain Endocrine: Yes: Hypothyroidism Additional Medical History: multiple vertebral compression fracutres lower thoracic and lumbar spine - Past Surgical History Past Surgical History: Yes: - Alcohol/Substance Use Hx Alcohol Use: No History of Substance Use: reports: None - Smoking History Smoking history: Unknown if ever smoked Have you smoked in the past 12 months: No If you are a former smoker, when did you quit?: 8 years ago - Social History Usual Living Arrangement: [facility] ADL: Family Assistance 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 History of Recent Travel: No Home Medications - Allergies Allergies/Adverse Reactions: Allergies Allergy/AdvReac Type Severity Reaction Status Date / Time Penicillins Allergy Severe Difficulty Verified 12/25/18 15:20 Breathing - Home Medications Home Medications: Ambulatory Orders Roflumilast [Daliresp] 500 mcg PO DAILY #30 tablet 06/24/17 Montelukast Sodium [Singulair] 10 mg PO HS 04/05/18 Rosuvastatin [Crestor -] 5 mg PO HS 04/05/18 Albuterol 0.083% Nebulizer Colette [Ventolin 0.083% Nebulizer Soln -] 1 amp NEB QID PRN 05/06/18 Insulin Sliding Scale [Novolog Vial Sliding Scale -] 1 vial SQ ACHS units 06/10 Lactobacillus Acidophilus [Bacid -] 1 tab PO DAILY tab 06/10/18 Pantoprazole Sodium [Protonix -] 20 mg PO DAILY tablet.ec 06/10/18 Sodium Chloride Nasal [place] [[place] -] 2 spray NS BID spray Tiotropium [place] [Spiriva Respimat] 2 puff IH DAILY inhaler 06/10/18 Heparin - 5,000 unit SQ BID vial 06/17/18 Losartan Potassium [Cozaar -] 25 mg PO DAILY tablet 06/17/18 Arformoterol Tartrate [Brovana -] 1 amp NEB BID 12/25/18 Aspirin [ASA -] 81 mg PO DAILY 12/25/18 Desloratadine/Pseudoephedrine [Clarinex-D 12 Hour Tablet] 1 tab PO DAILY Escitalopram Oxalate [Lexapro -] 5 mg PO DAILY 12/25/18 Fluticasone/Salmeterol [Advair 250-50 Diskus] 1 inh PO BID 12/25/18 Ibuprofen [Advil -] 200 mg PO TID 12/25/18 Levothyroxine [Synthroid -] 75 mcg PO DAILY@0700 12/25/18 Mag Hydrox/Al Hydrox/Simeth [Mylanta Oral Suspension -] 30 ml PO QID PRN Oxycodone HCl 5 mg PO 12/25/18 metFORMIN HCL [Glucophage -] 500 mg PO DAILY 12/25/18 predniSONE [Deltasone -] 10 mg PO BID 12/25/18 Family Disease History - Family Disease History Family Disease History: Respiratory: Father ( 80 of COPD), Brother ( of COPD), Other: Father, Mother ( 82 unknown reason) Review of Systems - Review of Systems Constitutional: reports: Loss of Appetite, Weakness. denies: Chills, Fever Eyes: reports: No Symptoms HENT: reports: No Symptoms Neck: reports: No Symptoms Cardiovascular: reports: No Symptoms Respiratory: reports: Cough (dry) Gastrointestinal: reports: Abdominal Pain Genitourinary: reports: No Symptoms Breasts: reports: No Symptoms Reported Musculoskeletal: reports: No Symptoms Physical Exam Vital Signs: Vital Signs Temperature 98 F 12/26/18 09:30 Pulse Rate 88 12/26/18 09:30 Respiratory Rate 24 H 12/26/18 09:30 Blood Pressure 134/76 12/26/18 09:30 O2 Sat by Pulse Oximetry (%) 97 12/26/18 11:49 Constitutional: Yes: No Distress, Calm Eyes: Yes: Conjunctiva Clear, EOM Intact HENT: Yes: Atraumatic, Normocephalic. No: Pharyngeal Erythema, Thrush, Tonsillar Exudate Neck: Yes: Supple Cardiovascular: Yes: Regular Rate and Rhythm Respiratory: Yes: Diminished (bilaterally) Gastrointestinal: Yes: Soft, Other (ruq discomfort to palpation) Renal/: No: Bladder Distention, CVA Tenderness - Left, CVA Tenderness - Right Edema: No Integumentary: No: Rash Wound/Incision: Yes: Other (right buttock with 2 abscess one with pus (cultures ) the other with erythema and induration left buttock abscesses healing and clean-she will not let me examine left side - this is per the nurse) Psychiatric: Yes: Alert, Oriented Labs: CBC, BMP 12/26/18 06:40 12/26/18 06:40 Imaging - Results Chest X-ray: Report Reviewed Cat Scan: Pending Problem List - Problems (1) Leukocytosis Code(s): D72.829 - ELEVATED WHITE BLOOD CELL COUNT, UNSPECIFIED (2) Abdominal pain Code(s): R10.9 - UNSPECIFIED ABDOMINAL PAIN (3) Abscess Code(s): L02.91 - CUTANEOUS ABSCESS, UNSPECIFIED (4) Chronic respiratory failure Code(s): J96.10 - CHRONIC RESPIRATORY FAILURE, UNSP W HYPOXIA OR HYPERCAPNIA (5) Penicillin allergy Code(s): Z88.0 - ALLERGY STATUS TO PENICILLIN Assessment/Plan wound cullture sent f/u ct scan blood cultures ordered vancomcyin and azactam for now surgery to see buttock wound if ct negative, get sonogram gallbladder and liver influenza screen
[2018-12-26] MEDS: POLYETHYLENE GLYCOL 3350 119 GM BTL PO SCH (14:55)
[2018-12-26] MEDS ORDERED: DEXTROSE 5%-WATER - 50 ML IVPB ONE (16:56)
[2018-12-26] MEDS ORDERED: AZTREONAM 1 GM VIAL (RESTRICTED TO ID) ONE (16:56)
[2018-12-26] MEDS: AZTREONAM 1 GM in DEXTROSE 5%-WATER - 50 ML IVPB SCH (17:00)
[2018-12-26] MEDS: oxyCODONE HCL 5 MG TABLET PO PRN ×2 (17:18→23:08)
[2018-12-26] MEDS: VANCOMYCIN 1 GRAM (PRE-DOCKED) 1,000 MG/250 ML BAG IVPB SCH (18:13)
[2018-12-26] MEDS ORDERED: INSULIN (NOVOLOG) ASPART 100 UNITS/ML 10ML VIAL ONE (21:00)
[2018-12-26] MEDS: ROSUVASTATIN CA 5 MG TABLET (FP) PO SCH (21:11)
[2018-12-26] MEDS: MONTELUKAST NA 10 MG TABLET PO SCH (21:12)
--- NOTE | 2018-12-27 00:25 | EKG ---
Test Reason : Blood Pressure : / mmHG Vent. Rate : 084 BPM Atrial Rate : 084 BPM P-R Int : 118 ms QRS Dur : 076 ms QT Int : 366 ms P-R-T Axes : 068 -18 048 degrees QTc Int : 432 ms NORMAL SINUS RHYTHM NONSPECIFIC T WAVE ABNORMALITY ABNORMAL ECG Confirmed by MD Mitchell, Abisai ([id number]) on 12/27/2018 12:24:48 AM Referred By: Confirmed By:Abisai Medrano MD
[2018-12-27] MEDS: ALBUTEROL SO4 0.083% IH SOL 2.5 MG/3 ML VIAL.NEB. NEB PRN ×2 (00:34→11:24)
[2018-12-27] MEDS ORDERED: DEXTROSE 5%-WATER - 50 ML IVPB ONE ×3 (01:26→19:07)
[2018-12-27] MEDS ORDERED: AZTREONAM 1 GM VIAL (RESTRICTED TO ID) ONE ×3 (01:26→19:07)
[2018-12-27] MEDS: AZTREONAM 1 GM in DEXTROSE 5%-WATER - 50 ML IVPB SCH ×3 (02:28→19:11)
[2018-12-27] MEDS: methylPREDNISolone NA SUCC 40 MG/1 ML VIAL IVPUSH SCH ×3 (02:28→18:16)
[2018-12-27] MEDS: VANCOMYCIN 1 GRAM (PRE-DOCKED) 1,000 MG/250 ML BAG IVPB SCH ×2 (05:57→16:31)
[2018-12-27] MEDS: metFORMIN HCL 500 MG TABLET (FP) PO SCH (06:05)
[2018-12-27] MEDS: LEVOTHYROXINE NA 75 MCG TABLET (FP) PO SCH (06:05)
[2018-12-27] MEDS: INSULIN SLIDING SCALE (NOVOLOG) 1 VIAL SQ SCH ×4 (06:06→21:45)
[2018-12-27] MEDS ORDERED: INSULIN (NOVOLOG) ASPART 100 UNITS/ML 10ML VIAL ONE ×3 (06:19→21:33)
[2018-12-27] MEDS: oxyCODONE HCL 5 MG TABLET PO PRN ×3 (06:39→19:10)
[2018-12-27 07:22] LABS: BASO % 0.2 % (0-2.0); HEMATOCRIT 29.4 % (32.4-45.2); HEMOGLOBIN 9.7 GM/dL (10.7-15.3); LYMPH % 1.9 % (8-40); MCH 29.1 pg (25.7-33.7); MCHC 33.1 g/dl (32.0-36.0); MEAN CELL VOLUME 87.9 fl (80-96); MEAN PLT VOLUME 7.7 fl (7.5-11.1); MONO % 3.5 % (3.8-10.2); NEUT % 94.4 % (42.8-82.8); PLATELET COUNT 406 K/MM3 (134-434); RBC 3.35 M/mm3 (3.60-5.2); RDW 15.4 % (11.6-15.6); WHITE BLOOD COUNT 13.8 K/mm3 (4.0-10.0)
[2018-12-27 07:45] LABS: ALBUMIN 2.5 g/dl (3.4-5.0); BILIRUBIN,TOTAL 0.6 mg/dL (0.2-1); BLOOD UREA NITROGEN 14.2 mg/dL (7-18); CALCIUM 8.4 mg/dL (8.5-10.1); CREATININE 0.5 mg/dL (0.55-1.3); POTASSIUM 4.2 mmol/L (3.5-5.1); TOT PROT 5.5 g/dl (6.4-8.2)
[2018-12-27] MEDS: ARFORMOTEROL TARTRATE 15 MCG/2 ML VIAL NEB SCH ×2 (08:13→20:21)
--- NOTE | 2018-12-27 08:59 | CONSULT ---
Consult - text type - Consultation Consultation Note: Neurology Chief Complaint: low back pain History of Present Illness: 58 year old female with PMH advanced severe COPD on 3-4L O2 /7, NAVDEEP on CPAP at night, anemia, HTN, GERD, HLD, DM, chronic back pain BIBA to ED from [facility] for increasing SOB x1 - 2 weeks associated with dry cough. Chronic CO2 retainer , Prednisone 5 mg, but was given a higher dose of Prednisone x2 days ago, albuterol nebulizer from [facility], without relief of her symptoms. Pt denied fever , chest pain, sputum production, nausea, vomiting. Pt also complained of her chronic back pain, she applied a lidoderm patch, which she stated she believes made her pain worse. She complains of pain in her abdomen R sided coming from her back; worse with moving. 2 weeks ago became weaker and more SOB; did not get OOB in 1-2 weeks so she started to develop sacral decubs. She had back pain on/off in [place] and she was on oxycodone for awhile; she asked to continue it here ; also on salvage determiner steriods. CT abdoment/pelvis with reported compression fractures in T/L spine. Patient getting physical therapy at [facility], discussed with her treatment options including pain mgmt and surgical evaluation. - Past Medical History Cardiovascular: Yes: CHF (end diastolic), HTN, Hyperlipdemia Pulmonary: Yes: COPD, O2 Dependent, Sleep Apnea Gastrointestinal: Yes: Constipation ...LMP: 06/03/14 Heme/Onc: Yes: Anemia Infectious Disease: Yes: Other (pneumonia) Musculoskeletal: Yes: Chronic low back pain Endocrine: Yes: Hypothyroidism - Past Surgical History Past Surgical History: Yes: - Smoking History Smoking history: Unknown if ever smoked Have you smoked in the past 12 months: No If you are a former smoker, when did you quit?: 8 years ago - Alcohol/Substance Use Hx Alcohol Use: No History of Substance Use: reports: None - Social History Usual Living Arrangement: Yes: [facility] ADL: Family Assistance 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 History of Recent Travel: No Home Medications - Allergies Allergies/Adverse Reactions: Allergies Allergy/AdvReac Type Severity Reaction Status Date / Time Penicillins Allergy Severe Difficulty Verified 12/25/18 15:20 Breathing - Home Medications Home Medications: Ambulatory Orders Roflumilast [Daliresp] 500 mcg PO DAILY #30 tablet 06/24/17 Montelukast Sodium [Singulair] 10 mg PO HS 04/05/18 Rosuvastatin [Crestor -] 5 mg PO HS 04/05/18 Albuterol 0.083% Nebulizer Colette [Ventolin 0.083% Nebulizer Soln -] 1 amp NEB QID PRN 05/06/18 Insulin Sliding Scale [Novolog Vial Sliding Scale -] 1 vial SQ ACHS units 06/10 Lactobacillus Acidophilus [Bacid -] 1 tab PO DAILY tab 06/10/18 Pantoprazole Sodium [Protonix -] 20 mg PO DAILY tablet.ec 06/10/18 Sodium Chloride Nasal [place] [[place] Nasal [place] -] 2 spray NS BID spray Tiotropium [place] [Spiriva Respimat] 2 puff IH DAILY inhaler 06/10/18 Heparin - 5,000 unit SQ BID vial 06/17/18 Losartan Potassium [Cozaar -] 25 mg PO DAILY tablet 06/17/18 Arformoterol Tartrate [Brovana -] 1 amp NEB BID 12/25/18 Aspirin [ASA -] 81 mg PO DAILY 12/25/18 Desloratadine/Pseudoephedrine [Clarinex-D 12 Hour Tablet] 1 tab PO DAILY Escitalopram Oxalate [Lexapro -] 5 mg PO DAILY 12/25/18 Fluticasone/Salmeterol [Advair 250-50 Diskus] 1 inh PO BID 12/25/18 Ibuprofen [Advil -] 200 mg PO TID 12/25/18 Levothyroxine [Synthroid -] 75 mcg PO DAILY@0700 12/25/18 Mag Hydrox/Al Hydrox/Simeth [Mylanta Oral Suspension -] 30 ml PO QID PRN Oxycodone HCl 5 mg PO 12/25/18 metFORMIN HCL [Glucophage -] 500 mg PO DAILY 12/25/18 predniSONE [Deltasone -] 10 mg PO BID 12/25/18 Family Disease History - Family Disease History Family Disease History: Respiratory: Father ( 80 of COPD), Brother ( of COPD), Other: Father, Mother ( 82 unknown reason) Review of Systems - Review of Systems Constitutional: reports: Weakness (general). denies: Chills, Fever, Lethargy, Loss of Appetite Eyes: denies: Blind Spots, Blurred Vision, Double Vision, Eye Pain HENT: denies: Difficult Swallowing, Ear Discharge, Ear Pain, Epistaxis Neck: denies: Decreased ROM, Pain on Movement, Stiffness Cardiovascular: reports: Shortness of Breath. denies: Chest Pain, Edema, Palpitations Respiratory: reports: Cough, SOB. denies: Hemoptysis, Orthopnea, PND, Wheezing Gastrointestinal: reports: Abdominal Pain. denies: Bloating, Constipation, Diarrhea, Dysphagia, Rectal Bleeding, Vomiting, Vomiting Blood Genitourinary: denies: Burning, Discharge, Dysuria, Flank Pain, Vaginal Bleeding Musculoskeletal: reports: Back Pain, Muscle Weakness (general). denies: Extremity Pain, Joint Pain, Muscle Pain, Muscle Cramps Integumentary: reports: Wound (R buttocks). denies: Blister, Lesions, Pallor, Pruritis, Rash Neurological: reports: Unsteady Gait, Weakness (general). denies: Change in LOC , Change in Speech, Confusion, Dizziness Endocrine: denies: Unexplained Weight Gain, Unexplained Weight Loss Hematology/Lymphatic: reports: Easily Bruised. denies: Excessive Bleeding, Swollen Glands Psychiatric: reports: Anxiety. denies: Altered Sleep Pattern, Depression, Hallucinations, Paranoia, Suicidal Physical Examination Vital Signs: Vital Signs Period Temp Pulse Resp BP Sys/Domínguez Pulse Ox Last 24 Hr 98 F-99.1 F 74-97 20-24 114-134/63-76 94-98 Constitutional: Yes: No Distress, Calm Eyes: Yes: Conjunctiva Clear HENT: Yes: Atraumatic Neck: Yes: Supple Cardiovascular: Yes: Regular Rate and Rhythm Respiratory: Yes: Diminished Gastrointestinal: Yes: Soft. No: Distention, Tenderness Renal/: No: CVA Tenderness - Left, CVA Tenderness - Right, Hematuria Musculoskeletal: No: Joint Stiffness, Joint Swelling Extremities: No: Cold, Cool, Cyanosis Edema: No Integumentary: No: Venous Stasis Changes Wound/Incision: Yes: Other (sacral decubs R sided closed, L sided 2 open lesions ) Neurological: Cn intact no facial droop or slurred speech, Lower extr 5-/5, UE 5 /5, sensory reduced to Lt in distal LE, gait deferred CBCD WBC 13.8 K/mm3 (4.0-10.0) H 12/27/18 06:30 RBC 3.35 M/mm3 (3.60-5.2) L 12/27/18 06:30 Hgb 9.7 GM/dL (10.7-15.3) L 12/27/18 06:30 Hct 29.4 % (32.4-45.2) L 12/27/18 06:30 MCV 87.9 fl (80-96) 12/27/18 06:30 MCHC 33.1 g/dl (32.0-36.0) 12/27/18 06:30 RDW 15.4 % (11.6-15.6) 12/27/18 06:30 Plt Count 406 K/MM3 (134-434) 12/27/18 06:30 MPV 7.7 fl (7.5-11.1) 12/27/18 06:30 CMP Sodium 135 mmol/L (136-145) L 12/27/18 06:30 Potassium 4.2 mmol/L (3.5-5.1) 12/27/18 06:30 Chloride 95 mmol/L (98-107) L 12/27/18 06:30 Carbon Dioxide 37 mmol/L (21-32) H 12/27/18 06:30 Anion Gap 4 MMOL/L (8-16) L 12/27/18 06:30 BUN 14.2 mg/dL (7-18) 12/27/18 06:30 Creatinine 0.5 mg/dL (0.55-1.3) L 12/27/18 06:30 Random Glucose 144 mg/dL (74-106) H 12/27/18 06:30 Calcium 8.4 mg/dL (8.5-10.1) L 12/27/18 06:30 Total Bilirubin 0.6 mg/dL (0.2-1) 12/27/18 06:30 AST 11 U/L (15-37) L 12/27/18 06:30 ALT 13 U/L (13-61) 12/27/18 06:30 Alkaline Phosphatase 104 U/L (45-117) 12/27/18 06:30 Total Protein 5.5 g/dl (6.4-8.2) L 12/27/18 06:30 Albumin 2.5 g/dl (3.4-5.0) L 12/27/18 06:30 CARDIAC ENZYMES Creatine Kinase 51 U/L (26-192) 12/26/18 06:40 Troponin I < 0.02 ng/ml (0.00-0.05) 12/26/18 06:40 Assessment/Plan 58 year old female with PMH advanced severe COPD on 3-4L O2 /7, NAVDEEP on CPAP at night, anemia, HTN, GERD, HLD, DM, chronic back pain BIBA to ED from [facility] for increasing SOB x1 - 2 weeks associated with dry cough. Chronic CO2 retainer , Prednisone 5 mg, but was given a higher dose of Prednisone x2 days ago, albuterol nebulizer from [facility], without relief of her symptoms. Pt denied fever , chest pain, sputum production, nausea, vomiting. Pt also complained of her chronic back pain, she applied a lidoderm patch, which she stated she believes made her pain worse. She complains of pain in her abdomen R sided coming from her back; worse with moving. 2 weeks ago became weaker and more SOB; did not get OOB in 1-2 weeks so she started to develop sacral decubs. She had back pain on/off in [place] and she was on oxycodone for awhile; she asked to continue it here ; also on long-term steriods. CT abdoment/pelvis with reported compression fractures in T/L spine. Patient getting physical therapy at [facility], discussed with her treatment options including pain mgmt and surgical evaluation. Caution with opiods and steroids though she seems would not want to reduced or discontinue these medications. Consider eval from pain mgmt vs NSGY input. Physical therapy as tolerated. Fall precautions.
[2018-12-27] MEDS: POLYETHYLENE GLYCOL 3350 119 GM BTL PO SCH (10:32)
[2018-12-27 10:44] LABS: ANISOCYTOSIS 2+; MACROCYTOSIS 0; PLATELET ESTIMATE NORMAL
[2018-12-27] MEDS ORDERED: PT OWN MED DRAWER 7, Y5N ONE (10:50)
[2018-12-27] MEDS: LOSARTAN POTASSIUM 25 MG TABLET PO SCH (10:55)
[2018-12-27] MEDS: PANTOPRAZOLE 20 MG TABLET (FP) PO SCH (10:55)
[2018-12-27] MEDS: LACTOBACILLUS ACIDOPHILUS 1 TABLET PO SCH (10:55)
[2018-12-27] MEDS: ASPIRIN 81 MG CHEWABLE TABLETS PO SCH (10:55)
[2018-12-27] MEDS: ESCITALOPRAM OXALATE 10 MG TABLET (FP) PO SCH (10:55)
[2018-12-27] MEDS: HEPARIN NA (PORCINE) 5,000 UNITS/ML 1ML VIAL SQ SCH ×2 (10:56→21:44)
[2018-12-27] MEDS: ROFLUMILAST 500 MCG TABLET PO SCH (10:56)
--- NOTE | 2018-12-27 10:58 | PN ---
Progress Note, Physician Chief Complaint: in bed NAD feels a little better; less SOB less back pain - Current Medication List Current Medications: Active Medications Acetaminophen (Tylenol -) 650 mg PO Q6H PRN PRN Reason: PAIN LEVEL 1-5 Last Admin: 12/26/18 03:07 Dose: 650 mg Al Hydroxide/Mg Hydroxide (Mylanta Oral Suspension -) 30 ml PO QID PRN PRN Reason: GAS Albuterol Sulfate (Ventolin 0.083% Nebulizer Soln -) 1 amp NEB QID PRN PRN Reason: SHORT OF BREATH/WHEEZING Last Admin: 12/27/18 00:34 Dose: 1 amp Arformoterol Tartrate (Brovana (Restricted To Pulmonology/Resp) -) 1 amp NEB RBID [facility] Last Admin: 12/27/18 08:13 Dose: 1 amp Aspirin (Asa -) 81 mg PO DAILY [facility] Last Admin: 12/26/18 09:25 Dose: 81 mg Escitalopram Oxalate (Lexapro -) 5 mg PO DAILY [facility] Last Admin: 12/26/18 09:23 Dose: 5 mg Heparin Sodium (Porcine) (Heparin -) 5,000 unit SQ BID [facility] Last Admin: 12/26/18 21:12 Dose: 5,000 unit Aztreonam 1 gm/ Dextrose 50 mls @ 100 mls/hr IVPB Q8H-IV [facility]; Protocol Last Admin: 12/27/18 02:28 Dose: 100 mls/hr Vancomycin HCl (Vancomycin (Pre-Docked)) 1,000 mg in 250 mls @ 250 mls/hr IVPB Q12H [facility]; Protocol Last Admin: 12/27/18 05:57 Dose: 250 mls/hr Insulin Aspart (Novolog Vial Sliding Scale -) 1 vial SQ ACHS [facility]; Protocol Last Admin: 12/27/18 06:06 Dose: Not Given Lactobacillus Acidophilus (Bacid -) 1 tab PO DAILY [facility] Last Admin: 12/26/18 09:23 Dose: 1 tab Levothyroxine Sodium (Synthroid -) 75 mcg PO DAILY@0700 [facility] Last Admin: 12/27/18 06:05 Dose: 75 mcg Losartan Potassium (Cozaar -) 25 mg PO DAILY [facility] Last Admin: 12/26/18 09:23 Dose: 25 mg Metformin HCl (Glucophage -) 500 mg PO DAILY@0700 [facility] Last Admin: 12/27/18 06:05 Dose: 500 mg Methylprednisolone Sodium Succinate (Solu-Medrol -) 40 mg IVPUSH Q8H-IV [facility] Last Admin: 12/27/18 02:28 Dose: 40 mg Montelukast Sodium (Singulair -) 10 mg PO HS [facility] Last Admin: 12/26/18 21:12 Dose: 10 mg Oxycodone HCl (Roxicodone -) 5 mg PO Q6H PRN PRN Reason: PAIN LEVEL 6-10 Last Admin: 12/27/18 06:39 Dose: 5 mg Pantoprazole Sodium (Protonix -) 20 mg PO DAILY [facility] Last Admin: 12/26/18 09:23 Dose: 20 mg Polyethylene Glycol (Miralax (For Daily Use) -) 17 gm PO DAILY [facility] Last Admin: 12/26/18 14:55 Dose: 17 grams Roflumilast (Daliresp -) 500 mcg PO DAILY [facility] Last Admin: 12/26/18 09:25 Dose: 500 mcg Rosuvastatin Calcium (Crestor -) 5 mg PO HS [facility] Last Admin: 12/26/18 21:11 Dose: 5 mg Sodium Chloride ([place] Nasal [place] -) 2 spray NS BID [facility] Last Admin: 12/26/18 21:23 Dose: 2 sprays Tiotropium [place] (Spiriva Respimat) 2 puff IH DAILY [facility] Last Admin: 12/26/18 10:13 Dose: 2 puff - Objective Vital Signs: Vital Signs Temperature 98.7 F 12/27/18 06:00 Pulse Rate 74 12/27/18 06:00 Respiratory Rate 20 12/27/18 06:00 Blood Pressure 131/74 12/27/18 06:00 O2 Sat by Pulse Oximetry (%) 98 12/27/18 08:13 Constitutional: Yes: No Distress, Calm Eyes: Yes: Conjunctiva Clear HENT: Yes: Atraumatic Neck: Yes: Supple Cardiovascular: Yes: Regular Rate and Rhythm Respiratory: Yes: CTA Bilaterally Gastrointestinal: Yes: Soft. No: Tenderness Genitourinary: No: CVA Tenderness - Left, CVA Tenderness - Right Musculoskeletal: No: Joint Stiffness, Joint Swelling Extremities: No: Cold, Cool Edema: No Integumentary: Yes: Bruising, Pressure Ulcer. No: Rash Neurological: Yes: WNL, Alert, Oriented ...Motor Strength: WNL Psychiatric: Yes: WNL, Alert, Oriented. No: Agitated, Suicidal Ideation Labs: CBC, BMP 12/27/18 06:30 12/27/18 06:30 - ....Imaging Other: Report Reviewed Assessment/Plan 58 year old female with PMH advanced severe COPD on 3-4L O2 19/01, NAVDEEP on CPAP at night, anemia, HTN, GERD, HLD, DM, chronic back pain admitted with COPDexac and PNA, back pain OP compression fractures, high WBC, decubs; r/o sepsis ID eval; surgery eval for decubs; turn in bed q1h, OOB to chair with assist; IV ATB per ID: IV steroids; pulm eval . stools softeners check spep upep, neurology eval; falls PFX; do not get OOB alone; call for help if needed prognosis guarded d/w pt and staff
--- NOTE | 2018-12-27 11:08 | PN ---
Progress Note (short form) - Note Progress Note: PULMONARY Denies shortness of breath, cough or wheezing. c/o back and abdominal pain. CT chest showing RLL consolidation. Vital Signs Period Temp Pulse Resp BP Sys/Domínguez Pulse Ox Last 24 Hr 98.3 F-99.1 F 74-97 20-22 114-131/63-74 94-98 Gen: NAD at rest Heart: RRR Lung: decreased breath sounds at the bases Abd: softly distended Ext: no edema CBC, BMP 12/27/18 06:30 12/27/18 06:30 Active Medications Acetaminophen (Tylenol -) 650 mg PO Q6H PRN PRN Reason: PAIN LEVEL 1-5 Last Admin: 12/26/18 03:07 Dose: 650 mg Al Hydroxide/Mg Hydroxide (Mylanta Oral Suspension -) 30 ml PO QID PRN PRN Reason: GAS Albuterol Sulfate (Ventolin 0.083% Nebulizer Soln -) 1 amp NEB QID PRN PRN Reason: SHORT OF BREATH/WHEEZING Last Admin: 12/27/18 00:34 Dose: 1 amp Arformoterol Tartrate (Brovana (Restricted To Pulmonology/Resp) -) 1 amp NEB RBID [facility] Last Admin: 12/27/18 08:13 Dose: 1 amp Aspirin (Asa -) 81 mg PO DAILY [facility] Last Admin: 12/27/18 10:55 Dose: 81 mg Escitalopram Oxalate (Lexapro -) 5 mg PO DAILY [facility] Last Admin: 12/27/18 10:55 Dose: 5 mg Heparin Sodium (Porcine) (Heparin -) 5,000 unit SQ BID [facility] Last Admin: 12/27/18 10:56 Dose: 5,000 unit Aztreonam 1 gm/ Dextrose 50 mls @ 100 mls/hr IVPB Q8H-IV [facility]; Protocol Last Admin: 12/27/18 10:56 Dose: 100 mls/hr Vancomycin HCl (Vancomycin (Pre-Docked)) 1,000 mg in 250 mls @ 250 mls/hr IVPB Q12H [facility]; Protocol Last Admin: 12/27/18 05:57 Dose: 250 mls/hr Insulin Aspart (Novolog Vial Sliding Scale -) 1 vial SQ ACHS [facility]; Protocol Last Admin: 12/27/18 06:06 Dose: Not Given Lactobacillus Acidophilus (Bacid -) 1 tab PO DAILY [facility] Last Admin: 12/27/18 10:55 Dose: 1 tab Levothyroxine Sodium (Synthroid -) 75 mcg PO DAILY@0700 [facility] Last Admin: 12/27/18 06:05 Dose: 75 mcg Losartan Potassium (Cozaar -) 25 mg PO DAILY [facility] Last Admin: 12/27/18 10:55 Dose: 25 mg Metformin HCl (Glucophage -) 500 mg PO DAILY@0700 [facility] Last Admin: 12/27/18 06:05 Dose: 500 mg Methylprednisolone Sodium Succinate (Solu-Medrol -) 40 mg IVPUSH Q8H-IV [facility] Last Admin: 12/27/18 10:57 Dose: 40 mg Montelukast Sodium (Singulair -) 10 mg PO HS [facility] Last Admin: 12/26/18 21:12 Dose: 10 mg Oxycodone HCl (Roxicodone -) 5 mg PO Q6H PRN PRN Reason: PAIN LEVEL 6-10 Last Admin: 12/27/18 06:39 Dose: 5 mg Pantoprazole Sodium (Protonix -) 20 mg PO DAILY [facility] Last Admin: 12/27/18 10:55 Dose: 20 mg Polyethylene Glycol (Miralax (For Daily Use) -) 17 gm PO DAILY [facility] Last Admin: 12/26/18 14:55 Dose: 17 grams Roflumilast (Daliresp -) 500 mcg PO DAILY [facility] Last Admin: 12/27/18 10:56 Dose: 500 mcg Rosuvastatin Calcium (Crestor -) 5 mg PO HS [facility] Last Admin: 12/26/18 21:11 Dose: 5 mg Sodium Chloride ([place] Nasal [place] -) 2 spray NS BID [facility] Last Admin: 12/26/18 21:23 Dose: 2 sprays Tiotropium [place] (Spiriva Respimat) 2 puff IH DAILY [facility] Last Admin: 12/26/18 10:13 Dose: 2 puff A/P Acute on Chronic Hypoxic and Hypercapneic Respiratory Failure Pneumonia Acute COPD Exacerbation LV Diastolic Dysfunction Hypothyroidism NAVDEEP Hyperlipidemia - continue antibiotics - f/u cultures - continue medrol - inhaled bronchodilators - O2 to keep SpO2 >90% - BiPAP as needed - DVT prophylaxis
[2018-12-27] MEDS: TIOTROPIUM BROMIDE 2.5 MCG (SPIRIVA) RESPIMAT INHALER IH SCH (12:16)
[2018-12-27] MEDS: SODIUM CHLORIDE NASAL SPRAY 44 ML BOTTLE NS SCH ×2 (12:16→21:47)
--- NOTE | 2018-12-27 12:47 | PN ---
Progress Note (short form) - Note Progress Note: c/o back pain, requesting pain meds-seen by neurology this am +constipation Vital Signs Period Temp Pulse Resp BP Sys/Domínguez Pulse Ox Last 24 Hr 98.3 F-99.1 F 74-97 20-22 114-131/60-74 94-98 cor-rrr lungs decreased bs at bases abd firm, nt, distended ext no edema could not turn for me to see her back due to back pain CBC, BMP 12/27/18 06:30 12/27/18 06:30 Microbiology 12/26/18 14:00 Buttock - Right Wound Culture - Preliminary Presumptive Mrsa (Pbp2a Pos) blood cultures pending influenza egative Current Medications Acetaminophen (Tylenol -) 650 mg PO Q6H PRN PRN Reason: PAIN LEVEL 1-5 Last Admin: 12/26/18 03:07 Dose: 650 mg Al Hydroxide/Mg Hydroxide (Mylanta Oral Suspension -) 30 ml PO QID PRN PRN Reason: GAS Albuterol Sulfate (Ventolin 0.083% Nebulizer Soln -) 1 amp NEB QID PRN PRN Reason: SHORT OF BREATH/WHEEZING Last Admin: 12/27/18 11:24 Dose: 1 amp Arformoterol Tartrate (Brovana (Restricted To Pulmonology/Resp) -) 1 amp NEB RBID [facility] Last Admin: 12/27/18 08:13 Dose: 1 amp Aspirin (Asa -) 81 mg PO DAILY [facility] Last Admin: 12/27/18 10:55 Dose: 81 mg Escitalopram Oxalate (Lexapro -) 5 mg PO DAILY [facility] Last Admin: 12/27/18 10:55 Dose: 5 mg Heparin Sodium (Porcine) (Heparin -) 5,000 unit SQ BID [facility] Last Admin: 12/27/18 10:56 Dose: 5,000 unit Aztreonam 1 gm/ Dextrose 50 mls @ 100 mls/hr IVPB Q8H-IV [facility]; Protocol Last Admin: 12/27/18 10:56 Dose: 100 mls/hr Vancomycin HCl (Vancomycin (Pre-Docked)) 1,000 mg in 250 mls @ 250 mls/hr IVPB Q12H [facility]; Protocol Last Admin: 12/27/18 05:57 Dose: 250 mls/hr Insulin Aspart (Novolog Vial Sliding Scale -) 1 vial SQ ACHS [facility]; Protocol Last Admin: 12/27/18 12:15 Dose: 2 units Lactobacillus Acidophilus (Bacid -) 1 tab PO DAILY [facility] Last Admin: 12/27/18 10:55 Dose: 1 tab Levothyroxine Sodium (Synthroid -) 75 mcg PO DAILY@0700 [facility] Last Admin: 12/27/18 06:05 Dose: 75 mcg Losartan Potassium (Cozaar -) 25 mg PO DAILY [facility] Last Admin: 12/27/18 10:55 Dose: 25 mg Metformin HCl (Glucophage -) 500 mg PO DAILY@0700 [facility] Last Admin: 12/27/18 06:05 Dose: 500 mg Methylprednisolone Sodium Succinate (Solu-Medrol -) 40 mg IVPUSH Q8H-IV [facility] Last Admin: 12/27/18 10:57 Dose: 40 mg Montelukast Sodium (Singulair -) 10 mg PO [facility] Last Admin: 12/26/18 21:12 Dose: 10 mg Oxycodone HCl (Roxicodone -) 5 mg PO Q6H PRN PRN Reason: PAIN LEVEL 6-10 Last Admin: 12/27/18 12:42 Dose: 5 mg Pantoprazole Sodium (Protonix -) 20 mg PO DAILY [facility] Last Admin: 12/27/18 10:55 Dose: 20 mg Polyethylene Glycol (Miralax (For Daily Use) -) 17 gm PO DAILY [facility] Last Admin: 12/26/18 14:55 Dose: 17 grams Roflumilast (Daliresp -) 500 mcg PO DAILY [facility] Last Admin: 12/27/18 10:56 Dose: 500 mcg Rosuvastatin Calcium (Crestor -) 5 mg PO [facility] Last Admin: 12/26/18 21:11 Dose: 5 mg Sodium Chloride ([place] Nasal [place] -) 2 spray NS BID [facility] Last Admin: 12/27/18 12:16 Dose: 2 sprays Tiotropium [place] (Spiriva Respimat) 2 puff IH DAILY [facility] Last Admin: 12/27/18 12:16 Dose: 2 puff a/p RLL consolidation- she may be having some referred pain from this buttock abscess- culture presumptive MRSA end stage COPD vertebral comp fx t/L spine penicillin allergy continue vancomycin and azactam wbc improved mrsa contact isolation consider pain management evaluation Problem List - Problems (1) Leukocytosis Code(s): D72.829 - ELEVATED WHITE BLOOD CELL COUNT, UNSPECIFIED (2) Abdominal pain Code(s): R10.9 - UNSPECIFIED ABDOMINAL PAIN (3) Abscess Code(s): L02.91 - CUTANEOUS ABSCESS, UNSPECIFIED (4) Chronic respiratory failure Code(s): J96.10 - CHRONIC RESPIRATORY FAILURE, UNSP W HYPOXIA OR HYPERCAPNIA (5) Penicillin allergy Code(s): Z88.0 - ALLERGY STATUS TO PENICILLIN
--- NOTE | 2018-12-27 15:32 | CONSULT ---
- Consultation REQUESTING PROVIDER: CONSULT REQUEST: We have been asked to surgically evaluate this patient for buttock hematoma PCP:Agustina Taylor HISTORY OF PRESENT ILLNESS: Vascular/ wound care was contacted to evaluate pt for a possible decubitus ulcer. Pt states that she has had a painful swelling on her Rt buttock for the past 2 weeks after she feel in the bathroom in her care home. Pt states that the mass got painful and started draining about 1 week ago. Pt is currently admitted for pneumonia and is on IV abx. Pt denies any recent fevers. Pt is on blood thinners and states she bruises easily. PMHx: COPD, DM, HTN, HLD Home Medications Medication Instructions Recorded Roflumilast [Daliresp] 500 mcg PO DAILY #30 tablet 06/24/17 Montelukast Sodium [Singulair] 10 mg PO HS 04/05/18 Rosuvastatin [Crestor -] 5 mg PO HS 04/05/18 Albuterol 0.083% Nebulizer [place] 1 amp NEB QID PRN 05/06/18 [Ventolin 0.083% Nebulizer Soln -] Insulin Sliding Scale [Novolog 1 vial SQ ACHS units 06/10/18 Vial Sliding Scale -] Lactobacillus Acidophilus [Bacid -] 1 tab PO DAILY tab 06/10/18 Pantoprazole Sodium [Protonix -] 20 mg PO DAILY tablet.ec 06/10/18 Sodium Chloride Nasal [place] [[place] 2 spray NS BID spray 06/10/18 [place] Nasal [place] -] Tiotropium [place] [Spiriva 2 puff IH DAILY inhaler 06/10/18 Respimat] Heparin - 5,000 unit SQ BID vial 06/17/18 Losartan Potassium [Cozaar -] 25 mg PO DAILY tablet 06/17/18 Arformoterol Tartrate [Brovana -] 1 amp NEB BID 12/25/18 Aspirin [ASA -] 81 mg PO DAILY 12/25/18 Desloratadine/Pseudoephedrine 1 tab PO DAILY 12/25/18 [Clarinex-D 12 Hour Tablet] Escitalopram Oxalate [Lexapro -] 5 mg PO DAILY 12/25/18 Fluticasone/Salmeterol [Advair 1 inh PO BID 12/25/18 250-50 Diskus] Ibuprofen [Advil -] 200 mg PO TID 12/25/18 Levothyroxine [Synthroid -] 75 mcg PO DAILY@0700 12/25/18 Mag Hydrox/Al Hydrox/Simeth 30 ml PO QID PRN 12/25/18 [Mylanta Oral Suspension -] Oxycodone HCl 5 mg PO 12/25/18 metFORMIN HCL [Glucophage -] 500 mg PO DAILY 12/25/18 predniSONE [Deltasone -] 10 mg PO BID 12/25/18 Allergies Allergy/AdvReac Type Severity Reaction Status Date / Time Penicillins Allergy Severe Difficulty Verified 12/25/18 15:20 Breathing PHYSICAL EXAM: GENERAL: Awake, alert, and fully oriented, in no acute distress. HEAD: Normal with no signs of trauma. EYES: PERRL, sclera anicteric, conjunctiva clear. NECK: Normal ROM, supple without lymphadenopathy, JVD, or masses. LUNGS: Clear to auscultation bilat anteriorly. No accessory muscle use. HEART: Regular rate and rhythm. No murmurs ABDOMEN: Soft, nontender, not distended, normoactive bowel sounds, no guarding, no rebound, no masses. BACK: Rt buttock shows 3 cm x 4 cm hard, tender, echymotic mass, with serosanguinous discharge from 1 cm opening, no erythema or linnea pus. UPPER EXTREMITIES: 2+ pulses, warm, well-perfused. No cyanosis. Cap refill <2 seconds. No peripheral edema. NEUROLOGICAL: Normal speech, gait not observed. PSYCH: Cooperative. Good eye contact. Appropriate mood and affect. SKIN: Warm, dry, normal turgor, no rashes or lesions noted. Vital Signs Temperature 98.6 F 12/27/18 11:06 Pulse Rate 86 12/27/18 11:06 Respiratory Rate 21 H 12/27/18 11:06 Blood Pressure 123/60 12/27/18 11:06 O2 Sat by Pulse Oximetry (%) 94 L 12/27/18 09:00 Lab Results WBC 13.8 K/mm3 (4.0-10.0) H 12/27/18 06:30 RBC 3.35 M/mm3 (3.60-5.2) L 12/27/18 06:30 Hgb 9.7 GM/dL (10.7-15.3) L 12/27/18 06:30 Hct 29.4 % (32.4-45.2) L 12/27/18 06:30 MCV 87.9 fl (80-96) 12/27/18 06:30 MCHC 33.1 g/dl (32.0-36.0) 12/27/18 06:30 RDW 15.4 % (11.6-15.6) 12/27/18 06:30 Plt Count 406 K/MM3 (134-434) 12/27/18 06:30 Sodium 135 mmol/L (136-145) L 12/27/18 06:30 Potassium 4.2 mmol/L (3.5-5.1) 12/27/18 06:30 Chloride 95 mmol/L (98-107) L 12/27/18 06:30 Carbon Dioxide 37 mmol/L (21-32) H 12/27/18 06:30 Anion Gap 4 MMOL/L (8-16) L 12/27/18 06:30 BUN 14.2 mg/dL (7-18) 12/27/18 06:30 Creatinine 0.5 mg/dL (0.55-1.3) L 12/27/18 06:30 Random Glucose 144 mg/dL (74-106) H 12/27/18 06:30 Calcium 8.4 mg/dL (8.5-10.1) L 12/27/18 06:30 CT abd/pel: reviewed shows 3 cm collection similar to hematoma on imaging, no mention of collection on CT reading. Problem List - Problems (1) Traumatic hematoma of buttock Assessment/Plan: Plan -as hematoma is actively draining, would not recommend evacuation at this time. -would continue abx as per med/ID -dry dressing with silver aginate, and serial exams of hematoma to see if it worsens. Please contact vascular team if any changes to the wound. Code(s): S30.0XXA - CONTUSION OF LOWER BACK AND PELVIS, INITIAL ENCOUNTER
[2018-12-27] MEDS: ROSUVASTATIN CA 5 MG TABLET (FP) PO SCH (21:45)
[2018-12-27] MEDS: MONTELUKAST NA 10 MG TABLET PO SCH (21:45)
[2018-12-28] MEDS ORDERED: AZTREONAM 1 GM VIAL (RESTRICTED TO ID) ONE ×3 (00:55→17:37)
[2018-12-28] MEDS ORDERED: DEXTROSE 5%-WATER - 50 ML IVPB ONE ×3 (00:55→17:38)
[2018-12-28] MEDS: methylPREDNISolone NA SUCC 40 MG/1 ML VIAL IVPUSH SCH ×3 (01:18→21:31)
[2018-12-28] MEDS: AZTREONAM 1 GM in DEXTROSE 5%-WATER - 50 ML IVPB SCH ×3 (01:18→17:44)
[2018-12-28] MEDS: oxyCODONE HCL 5 MG TABLET PO PRN ×4 (01:18→23:18)
[2018-12-28] MEDS: VANCOMYCIN 1 GRAM (PRE-DOCKED) 1,000 MG/250 ML BAG IVPB SCH ×2 (03:43→16:43)
[2018-12-28] MEDS: LEVOTHYROXINE NA 75 MCG TABLET (FP) PO SCH (06:01)
[2018-12-28] MEDS: INSULIN SLIDING SCALE (NOVOLOG) 1 VIAL SQ SCH ×4 (06:02→22:15)
[2018-12-28] MEDS: metFORMIN HCL 500 MG TABLET (FP) PO SCH (06:02)
--- NOTE | 2018-12-28 07:18 | PN ---
Progress Note, Physician Chief Complaint: in bed NAD afebrile; LBP on/off; no abdominal pain - Current Medication List Current Medications: Active Medications Acetaminophen (Tylenol -) 650 mg PO Q6H PRN PRN Reason: PAIN LEVEL 1-5 Last Admin: 12/26/18 03:07 Dose: 650 mg Al Hydroxide/Mg Hydroxide (Mylanta Oral Suspension -) 30 ml PO QID PRN PRN Reason: GAS Albuterol Sulfate (Ventolin 0.083% Nebulizer Soln -) 1 amp NEB QID PRN PRN Reason: SHORT OF BREATH/WHEEZING Last Admin: 12/27/18 11:24 Dose: 1 amp Arformoterol Tartrate (Brovana (Restricted To Pulmonology/Resp) -) 1 amp NEB RBID [facility] Last Admin: 12/27/18 20:21 Dose: 1 amp Aspirin (Asa -) 81 mg PO DAILY [facility] Last Admin: 12/27/18 10:55 Dose: 81 mg Escitalopram Oxalate (Lexapro -) 5 mg PO DAILY [facility] Last Admin: 12/27/18 10:55 Dose: 5 mg Heparin Sodium (Porcine) (Heparin -) 5,000 unit SQ BID [facility] Last Admin: 12/27/18 21:44 Dose: 5,000 unit Aztreonam 1 gm/ Dextrose 50 mls @ 100 mls/hr IVPB Q8H-IV [facility]; Protocol Last Admin: 12/28/18 01:18 Dose: 100 mls/hr Vancomycin HCl (Vancomycin (Pre-Docked)) 1,000 mg in 250 mls @ 250 mls/hr IVPB Q12H [facility]; Protocol Last Admin: 12/28/18 03:43 Dose: 250 mls/hr Insulin Aspart (Novolog Vial Sliding Scale -) 1 vial SQ ACHS [facility]; Protocol Last Admin: 12/28/18 06:02 Dose: 2 units Lactobacillus Acidophilus (Bacid -) 1 tab PO DAILY [facility] Last Admin: 12/27/18 10:55 Dose: 1 tab Levothyroxine Sodium (Synthroid -) 75 mcg PO DAILY@0700 [facility] Last Admin: 12/28/18 06:01 Dose: 75 mcg Losartan Potassium (Cozaar -) 25 mg PO DAILY [facility] Last Admin: 12/27/18 10:55 Dose: 25 mg Metformin HCl (Glucophage -) 500 mg PO DAILY@0700 [facility] Last Admin: 12/28/18 06:02 Dose: 500 mg Methylprednisolone Sodium Succinate (Solu-Medrol -) 40 mg IVPUSH Q8H-IV [facility] Last Admin: 12/28/18 01:18 Dose: 40 mg Montelukast Sodium (Singulair -) 10 mg PO HS [facility] Last Admin: 12/27/18 21:45 Dose: 10 mg Oxycodone HCl (Roxicodone -) 5 mg PO Q6H PRN PRN Reason: PAIN LEVEL 6-10 Last Admin: 12/28/18 06:26 Dose: 5 mg Pantoprazole Sodium (Protonix -) 20 mg PO DAILY [facility] Last Admin: 12/27/18 10:55 Dose: 20 mg Polyethylene Glycol (Miralax (For Daily Use) -) 17 gm PO DAILY [facility] Last Admin: 12/27/18 10:32 Dose: 17 grams Roflumilast (Daliresp -) 500 mcg PO DAILY [facility] Last Admin: 12/27/18 10:56 Dose: 500 mcg Rosuvastatin Calcium (Crestor -) 5 mg PO [facility] Last Admin: 12/27/18 21:45 Dose: 5 mg Sodium Chloride ([place] Nasal [place] -) 2 spray NS BID [facility] Last Admin: 12/27/18 21:47 Dose: Not Given Tiotropium [place] (Spiriva Respimat) 2 puff IH DAILY [facility] Last Admin: 12/27/18 12:16 Dose: 2 puff - Objective Vital Signs: Vital Signs Temperature 98.3 F 12/28/18 06:00 Pulse Rate 72 12/28/18 06:00 Respiratory Rate 20 12/28/18 06:00 Blood Pressure 118/61 12/28/18 06:00 O2 Sat by Pulse Oximetry (%) 100 12/27/18 21:00 Constitutional: Yes: No Distress, Calm Eyes: Yes: Conjunctiva Clear HENT: Yes: Atraumatic Neck: Yes: Supple Cardiovascular: Yes: Regular Rate and Rhythm Respiratory: Yes: CTA Bilaterally Gastrointestinal: Yes: Soft. No: Tenderness Genitourinary: No: Hematuria Musculoskeletal: No: Joint Stiffness, Joint Swelling Extremities: No: Cold, Cool, Cyanosis Edema: No Integumentary: Yes: Bruising, Pressure Ulcer Neurological: Yes: WNL, Alert, Oriented ...Motor Strength: WNL Psychiatric: Yes: WNL, Alert, Oriented. No: Agitated, Suicidal Ideation Labs: CBC, BMP 12/27/18 06:30 12/27/18 06:30 - ....Imaging Other: Report Reviewed Assessment/Plan 58 year old female with PMH advanced severe COPD on 3-4L O2 19/01, NAVDEEP on CPAP at night, anemia, HTN, GERD, HLD, DM, chronic back pain admitted with COPDexac and PNA, back pain OP compression fractures, high WBC, decubs; surgery eval for decubs; turn in bed q1h, OOB to chair with assist; IV ATB per ID; IV steroids; pulm f/u stools softeners check spep upep, neurology eval for LBP falls PFX; do not get OOB alone; call for help if needed prognosis guarded d/w pt and staff
--- NOTE | 2018-12-28 08:36 | PN ---
Progress Note (short form) - Note Progress Note: Neurology Chief Complaint: low back pain History of Present Illness: 58 year old female with PMH advanced severe COPD on 3-4L O2 24/7, NAVDEEP on CPAP at night, anemia, HTN, GERD, HLD, DM, chronic back pain BIBA to ED from [facility] for increasing SOB x1 - 2 weeks associated with dry cough. Chronic CO2 retainer , Prednisone 5 mg, but was given a higher dose of Prednisone x2 days ago, albuterol nebulizer from [facility], without relief of her symptoms. Pt denied fever , chest pain, sputum production, nausea, vomiting. Pt also complained of her chronic back pain, she applied a lidoderm patch, which she stated she believes made her pain worse. She complains of pain in her abdomen R sided coming from her back; worse with moving. 2 weeks ago became weaker and more SOB; did not get OOB in 1-2 weeks so she started to develop sacral decubs. She had back pain on/off in [place] and she was on oxycodone for awhile; she asked to continue it here ; also on terminal carman steriods. CT abdoment/pelvis with reported compression fractures in T/L spine. Patient getting physical therapy at [facility], discussed with her treatment options including pain mgmt and surgical evaluation. Consult note reviewed, no plan for drainage of hematoma. Patient for spinal CTs, in agreement with this. Home Medications - Allergies Allergies/Adverse Reactions: Allergies Allergy/AdvReac Type Severity Reaction Status Date / Time Penicillins Allergy Severe Difficulty Verified 12/25/18 15:20 Breathing Active Medications Acetaminophen (Tylenol -) 650 mg PO Q6H PRN PRN Reason: PAIN LEVEL 1-5 Last Admin: 12/26/18 03:07 Dose: 650 mg Al Hydroxide/Mg Hydroxide (Mylanta Oral Suspension -) 30 ml PO QID PRN PRN Reason: GAS Albuterol Sulfate (Ventolin 0.083% Nebulizer Soln -) 1 amp NEB QID PRN PRN Reason: SHORT OF BREATH/WHEEZING Last Admin: 12/27/18 11:24 Dose: 1 amp Arformoterol Tartrate (Brovana (Restricted To Pulmonology/Resp) -) 1 amp NEB RBID [facility] Last Admin: 12/27/18 20:21 Dose: 1 amp Aspirin (Asa -) 81 mg PO DAILY [facility] Last Admin: 12/27/18 10:55 Dose: 81 mg Escitalopram Oxalate (Lexapro -) 5 mg PO DAILY [facility] Last Admin: 12/27/18 10:55 Dose: 5 mg Heparin Sodium (Porcine) (Heparin -) 5,000 unit SQ BID [facility] Last Admin: 12/27/18 21:44 Dose: 5,000 unit Aztreonam 1 gm/ Dextrose 50 mls @ 100 mls/hr IVPB Q8H-IV [facility]; Protocol Last Admin: 12/28/18 01:18 Dose: 100 mls/hr Vancomycin HCl (Vancomycin (Pre-Docked)) 1,000 mg in 250 mls @ 250 mls/hr IVPB Q12H [facility]; Protocol Last Admin: 12/28/18 03:43 Dose: 250 mls/hr Insulin Aspart (Novolog Vial Sliding Scale -) 1 vial SQ ACHS [facility]; Protocol Last Admin: 12/28/18 06:02 Dose: 2 units Lactobacillus Acidophilus (Bacid -) 1 tab PO DAILY [facility] Last Admin: 12/27/18 10:55 Dose: 1 tab Levothyroxine Sodium (Synthroid -) 75 mcg PO DAILY@0700 [facility] Last Admin: 12/28/18 06:01 Dose: 75 mcg Losartan Potassium (Cozaar -) 25 mg PO DAILY [facility] Last Admin: 12/27/18 10:55 Dose: 25 mg Metformin HCl (Glucophage -) 500 mg PO DAILY@0700 [facility] Last Admin: 12/28/18 06:02 Dose: 500 mg Methylprednisolone Sodium Succinate (Solu-Medrol -) 40 mg IVPUSH BID [facility] Montelukast Sodium (Singulair -) 10 mg PO HS [facility] Last Admin: 12/27/18 21:45 Dose: 10 mg Oxycodone HCl (Roxicodone -) 5 mg PO Q6H PRN PRN Reason: PAIN LEVEL 6-10 Last Admin: 12/28/18 06:26 Dose: 5 mg Pantoprazole Sodium (Protonix -) 20 mg PO DAILY [facility] Last Admin: 12/27/18 10:55 Dose: 20 mg Polyethylene Glycol (Miralax (For Daily Use) -) 17 gm PO DAILY [facility] Last Admin: 12/27/18 10:32 Dose: 17 grams Roflumilast (Daliresp -) 500 mcg PO DAILY [facility] Last Admin: 12/27/18 10:56 Dose: 500 mcg Rosuvastatin Calcium (Crestor -) 5 mg PO HS [facility] Last Admin: 12/27/18 21:45 Dose: 5 mg Sodium Chloride ([place] Nasal [place] -) 2 spray NS BID [facility] Last Admin: 12/27/18 21:47 Dose: Not Given Tiotropium [place] (Spiriva Respimat) 2 puff IH DAILY [facility] Last Admin: 12/27/18 12:16 Dose: 2 puff Physical Examination Vital Signs: Vital Signs Period Temp Pulse Resp BP Sys/Domínguez Pulse Ox Last 24 Hr 98.3 F-98.6 F 72-98 20-24 110-123/60-77 94-100 Constitutional: Yes: No Distress, Calm Eyes: Yes: Conjunctiva Clear HENT: Yes: Atraumatic Neck: Yes: Supple Cardiovascular: Yes: Regular Rate and Rhythm Respiratory: Yes: Diminished Gastrointestinal: Yes: Soft. No: Distention, Tenderness Renal/: No: CVA Tenderness - Left, CVA Tenderness - Right, Hematuria Musculoskeletal: No: Joint Stiffness, Joint Swelling Extremities: No: Cold, Cool, Cyanosis Edema: No Integumentary: No: Venous Stasis Changes Wound/Incision: Yes: Other (sacral decubs R sided closed, L sided 2 open lesions ) Neurological: Cn intact no facial droop or slurred speech, Lower extr 5-/5, UE 5 /5, sensory reduced to Lt in distal LE, gait deferred CBCD WBC 13.8 K/mm3 (4.0-10.0) H 12/27/18 06:30 RBC 3.35 M/mm3 (3.60-5.2) L 12/27/18 06:30 Hgb 9.7 GM/dL (10.7-15.3) L 12/27/18 06:30 Hct 29.4 % (32.4-45.2) L 12/27/18 06:30 MCV 87.9 fl (80-96) 12/27/18 06:30 MCHC 33.1 g/dl (32.0-36.0) 12/27/18 06:30 RDW 15.4 % (11.6-15.6) 12/27/18 06:30 Plt Count 406 K/MM3 (134-434) 12/27/18 06:30 MPV 7.7 fl (7.5-11.1) 12/27/18 06:30 CMP Sodium 135 mmol/L (136-145) L 12/27/18 06:30 Potassium 4.2 mmol/L (3.5-5.1) 12/27/18 06:30 Chloride 95 mmol/L (98-107) L 12/27/18 06:30 Carbon Dioxide 37 mmol/L (21-32) H 12/27/18 06:30 Anion Gap 4 MMOL/L (8-16) L 12/27/18 06:30 BUN 14.2 mg/dL (7-18) 12/27/18 06:30 Creatinine 0.5 mg/dL (0.55-1.3) L 12/27/18 06:30 Random Glucose 144 mg/dL (74-106) H 12/27/18 06:30 Calcium 8.4 mg/dL (8.5-10.1) L 12/27/18 06:30 Total Bilirubin 0.6 mg/dL (0.2-1) 12/27/18 06:30 AST 11 U/L (15-37) L 12/27/18 06:30 ALT 13 U/L (13-61) 12/27/18 06:30 Alkaline Phosphatase 104 U/L (45-117) 12/27/18 06:30 Total Protein 5.5 g/dl (6.4-8.2) L 12/27/18 06:30 Albumin 2.5 g/dl (3.4-5.0) L 12/27/18 06:30 CARDIAC ENZYMES Creatine Kinase 51 U/L (26-192) 12/26/18 06:40 Troponin I < 0.02 ng/ml (0.00-0.05) 12/26/18 06:40 Assessment/Plan 58 year old female with PMH advanced severe COPD on 3-4L O2 19/01, NAVDEEP on CPAP at night, anemia, HTN, GERD, HLD, DM, chronic back pain BIBA to ED from [facility] for increasing SOB x1 - 2 weeks associated with dry cough. Chronic CO2 retainer , Prednisone 5 mg, but was given a higher dose of Prednisone x2 days ago, albuterol nebulizer from [facility], without relief of her symptoms. Pt denied fever , chest pain, sputum production, nausea, vomiting. Pt also complained of her chronic back pain, she applied a lidoderm patch, which she stated she believes made her pain worse. She complains of pain in her abdomen R sided coming from her back; worse with moving. 2 weeks ago became weaker and more SOB; did not get OOB in 1-2 weeks so she started to develop sacral decubs. She had back pain on/off in [place] and she was on oxycodone for awhile; she asked to continue it here ; also on nursing home steriods. CT abdoment/pelvis with reported compression fractures in T/L spine. Patient getting physical therapy at [facility], discussed with her treatment options including pain mgmt and surgical evaluation. Consult note reviewed, no plan for drainage of hematoma. Patient for spinal CTs, in agreement with this. Caution with opiods and steroids though she seems would not want to reduced or discontinue these medications. Consider eval from pain mgmt vs NSGY input. Physical therapy as tolerated. Fall precautions. Is appearing more comfortable.
[2018-12-28] MEDS: ARFORMOTEROL TARTRATE 15 MCG/2 ML VIAL NEB SCH ×2 (09:12→20:20)
--- NOTE | 2018-12-28 09:48 | PN ---
Progress Note (short form) - Note Progress Note: PULMONARY Denies shortness of breath, cough or wheezing. Still with back and abdominal pain. Vital Signs Period Temp Pulse Resp BP Sys/Domínguez Pulse Ox Last 24 Hr 98.3 F-98.6 F 72-98 20-24 110-123/60-77 100 Gen: NAD at rest Heart: RRR Lung: scattered rhonchi, wheezes Abd: softly distended Ext: no edema CBC, BMP 12/27/18 06:30 12/27/18 06:30 Active Medications Acetaminophen (Tylenol -) 650 mg PO Q6H PRN PRN Reason: PAIN LEVEL 1-5 Last Admin: 12/26/18 03:07 Dose: 650 mg Al Hydroxide/Mg Hydroxide (Mylanta Oral Suspension -) 30 ml PO QID PRN PRN Reason: GAS Albuterol Sulfate (Ventolin 0.083% Nebulizer Soln -) 1 amp NEB QID PRN PRN Reason: SHORT OF BREATH/WHEEZING Last Admin: 12/27/18 11:24 Dose: 1 amp Arformoterol Tartrate (Brovana (Restricted To Pulmonology/Resp) -) 1 amp NEB RBID [facility] Last Admin: 12/28/18 09:12 Dose: 1 amp Aspirin (Asa -) 81 mg PO DAILY [facility] Last Admin: 12/27/18 10:55 Dose: 81 mg Escitalopram Oxalate (Lexapro -) 5 mg PO DAILY [facility] Last Admin: 12/27/18 10:55 Dose: 5 mg Heparin Sodium (Porcine) (Heparin -) 5,000 unit SQ BID [facility] Last Admin: 12/27/18 21:44 Dose: 5,000 unit Aztreonam 1 gm/ Dextrose 50 mls @ 100 mls/hr IVPB Q8H-IV [facility]; Protocol Last Admin: 12/28/18 01:18 Dose: 100 mls/hr Vancomycin HCl (Vancomycin (Pre-Docked)) 1,000 mg in 250 mls @ 250 mls/hr IVPB Q12H [facility]; Protocol Last Admin: 12/28/18 03:43 Dose: 250 mls/hr Insulin Aspart (Novolog Vial Sliding Scale -) 1 vial SQ ACHS [facility]; Protocol Last Admin: 12/28/18 06:02 Dose: 2 units Lactobacillus Acidophilus (Bacid -) 1 tab PO DAILY [facility] Last Admin: 12/27/18 10:55 Dose: 1 tab Levothyroxine Sodium (Synthroid -) 75 mcg PO DAILY@0700 [facility] Last Admin: 12/28/18 06:01 Dose: 75 mcg Losartan Potassium (Cozaar -) 25 mg PO DAILY [facility] Last Admin: 12/27/18 10:55 Dose: 25 mg Metformin HCl (Glucophage -) 500 mg PO DAILY@0700 [facility] Last Admin: 12/28/18 06:02 Dose: 500 mg Methylprednisolone Sodium Succinate (Solu-Medrol -) 40 mg IVPUSH BID [facility] Montelukast Sodium (Singulair -) 10 mg PO HS [facility] Last Admin: 12/27/18 21:45 Dose: 10 mg Oxycodone HCl (Roxicodone -) 5 mg PO Q6H PRN PRN Reason: PAIN LEVEL 6-10 Last Admin: 12/28/18 06:26 Dose: 5 mg Pantoprazole Sodium (Protonix -) 20 mg PO DAILY [facility] Last Admin: 12/27/18 10:55 Dose: 20 mg Polyethylene Glycol (Miralax (For Daily Use) -) 17 gm PO DAILY [facility] Last Admin: 12/27/18 10:32 Dose: 17 grams Roflumilast (Daliresp -) 500 mcg PO DAILY [facility] Last Admin: 12/27/18 10:56 Dose: 500 mcg Rosuvastatin Calcium (Crestor -) 5 mg PO HS [facility] Last Admin: 12/27/18 21:45 Dose: 5 mg Sodium Chloride ([place] Nasal [place] -) 2 spray NS BID [facility] Last Admin: 12/27/18 21:47 Dose: Not Given Tiotropium [place] (Spiriva Respimat) 2 puff IH DAILY [facility] Last Admin: 12/27/18 12:16 Dose: 2 puff A/P Acute on Chronic Hypoxic and Hypercapneic Respiratory Failure Pneumonia Acute COPD Exacerbation LV Diastolic Dysfunction Hypothyroidism NAVDEEP Hyperlipidemia - pain control - continue antibiotics - f/u cultures - continue medrol - inhaled bronchodilators - O2 to keep SpO2 >90% - BiPAP as needed - DVT prophylaxis
[2018-12-28] MEDS: LOSARTAN POTASSIUM 25 MG TABLET PO SCH (10:42)
[2018-12-28] MEDS: ESCITALOPRAM OXALATE 10 MG TABLET (FP) PO SCH (10:42)
[2018-12-28] MEDS: PANTOPRAZOLE 20 MG TABLET (FP) PO SCH (10:42)
[2018-12-28] MEDS: LACTOBACILLUS ACIDOPHILUS 1 TABLET PO SCH (10:43)
[2018-12-28] MEDS: ASPIRIN 81 MG CHEWABLE TABLETS PO SCH (10:43)
[2018-12-28] MEDS: ROFLUMILAST 500 MCG TABLET PO SCH (10:44)
[2018-12-28] MEDS: HEPARIN NA (PORCINE) 5,000 UNITS/ML 1ML VIAL SQ SCH ×2 (10:44→21:27)
[2018-12-28] MEDS: POLYETHYLENE GLYCOL 3350 119 GM BTL PO SCH (10:47)
[2018-12-28] MEDS ORDERED: INSULIN (NOVOLOG) ASPART 100 UNITS/ML 10ML VIAL ONE (11:56)
--- NOTE | 2018-12-28 12:59 | PN ---
Progress Note (short form) - Note Progress Note: Vascular team was requested to reevaluate pt for Rt buttock wound as was concern pt had gross pus coming out of wound. Pt was seen yesterday by me, pt states that today she has not noted any change in her Rt buttock wound. Pt denies fever, chills, n/v. Last Vital Signs Temp Pulse Resp BP Pulse Ox 98.3 F 72 20 118/61 99 12/28/18 06:00 12/28/18 06:00 12/28/18 06:00 12/28/18 06:00 12/28/18 09:00 CBC, BMP 12/27/18 06:30 12/27/18 06:30 Rt buttock shows 3cm x 4 cm hematoma with sanguinous/clot drainage, No Pus, unchanged from previous exam. Problem List - Problems (1) Traumatic hematoma of buttock Assessment/Plan: Plan -again no need for surgical debridement, recommend silver aginate and daily dry dressing change. Code(s): S30.0XXA - CONTUSION OF LOWER BACK AND PELVIS, INITIAL ENCOUNTER
[2018-12-28] MEDS: TIOTROPIUM BROMIDE 2.5 MCG (SPIRIVA) RESPIMAT INHALER IH SCH (16:46)
[2018-12-28] MEDS: SODIUM CHLORIDE NASAL SPRAY 44 ML BOTTLE NS SCH ×2 (16:46→22:36)
[2018-12-28] MEDS: ALBUTEROL SO4 0.083% IH SOL 2.5 MG/3 ML VIAL.NEB. NEB PRN (16:48)
[2018-12-28] MEDS ORDERED: PT OWN MED DRAWER 7, Y5N ONE (17:20)
[2018-12-28] MEDS: ROSUVASTATIN CA 5 MG TABLET (FP) PO SCH (21:27)
[2018-12-28] MEDS: MONTELUKAST NA 10 MG TABLET PO SCH (21:27)
[2018-12-29] MEDS: AZTREONAM 1 GM in DEXTROSE 5%-WATER - 50 ML IVPB SCH ×3 (02:00→17:35)
[2018-12-29] MEDS ORDERED: AZTREONAM 1 GM VIAL (RESTRICTED TO ID) ONE ×3 (03:00→17:21)
[2018-12-29] MEDS ORDERED: DEXTROSE 5%-WATER - 50 ML IVPB ONE ×3 (03:01→17:21)
[2018-12-29] MEDS: VANCOMYCIN 1 GRAM (PRE-DOCKED) 1,000 MG/250 ML BAG IVPB SCH ×2 (05:18→17:52)
[2018-12-29] MEDS: oxyCODONE HCL 5 MG TABLET PO PRN ×3 (06:55→18:24)
[2018-12-29] MEDS: metFORMIN HCL 500 MG TABLET (FP) PO SCH (06:56)
[2018-12-29] MEDS: LEVOTHYROXINE NA 75 MCG TABLET (FP) PO SCH (06:57)
[2018-12-29] MEDS ORDERED: INSULIN (NOVOLOG) ASPART 100 UNITS/ML 10ML VIAL ONE ×3 (07:01→22:46)
[2018-12-29] MEDS: INSULIN SLIDING SCALE (NOVOLOG) 1 VIAL SQ SCH ×4 (07:04→22:49)
[2018-12-29] MEDS: ARFORMOTEROL TARTRATE 15 MCG/2 ML VIAL NEB SCH ×2 (08:08→20:11)
--- NOTE | 2018-12-29 09:34 | PN ---
Progress Note (short form) - Note Progress Note: Neurology Chief Complaint: low back pain History of Present Illness: 58 year old female with PMH advanced severe COPD on 3-4L O2 24/7, NAVDEEP on CPAP at night, anemia, HTN, GERD, HLD, DM, chronic back pain BIBA to ED from [facility] for increasing SOB x1 - 2 weeks associated with dry cough. Chronic CO2 retainer , Prednisone 5 mg, but was given a higher dose of Prednisone x2 days ago, albuterol nebulizer from [facility], without relief of her symptoms. Pt denied fever , chest pain, sputum production, nausea, vomiting. Pt also complained of her chronic back pain, she applied a lidoderm patch, which she stated she believes made her pain worse. She complains of pain in her abdomen R sided coming from her back; worse with moving. 2 weeks ago became weaker and more SOB; did not get OOB in 1-2 weeks so she started to develop sacral decubs. She had back pain on/off in [place] and she was on oxycodone for awhile; she asked to continue it here ; also on dosimetrist steriods. CT abdoment/pelvis with reported compression fractures in T/L spine. Patient getting physical therapy at [facility], discussed with her treatment options including pain mgmt and surgical evaluation. Consult note reviewed, no plan for drainage of hematoma. L spine Ct completed, images reviewed but no report available in chart. Patient resting comfortably this morning and informed her that we are waiting for official report. Home Medications - Allergies Allergies/Adverse Reactions: Allergies Allergy/AdvReac Type Severity Reaction Status Date / Time Penicillins Allergy Severe Difficulty Verified 12/25/18 15:20 Breathing Active Medications Acetaminophen (Tylenol -) 650 mg PO Q6H PRN PRN Reason: PAIN LEVEL 1-5 Last Admin: 12/26/18 03:07 Dose: 650 mg Al Hydroxide/Mg Hydroxide (Mylanta Oral Suspension -) 30 ml PO QID PRN PRN Reason: GAS Albuterol Sulfate (Ventolin 0.083% Nebulizer Soln -) 1 amp NEB QID PRN PRN Reason: SHORT OF BREATH/WHEEZING Last Admin: 12/28/18 16:48 Dose: 1 amp Arformoterol Tartrate (Brovana (Restricted To Pulmonology/Resp) -) 1 amp NEB RBID [facility] Last Admin: 12/29/18 08:08 Dose: 1 amp Aspirin (Asa -) 81 mg PO DAILY [facility] Last Admin: 12/28/18 10:43 Dose: 81 mg Escitalopram Oxalate (Lexapro -) 5 mg PO DAILY [facility] Last Admin: 12/28/18 10:42 Dose: 5 mg Heparin Sodium (Porcine) (Heparin -) 5,000 unit SQ BID [facility] Last Admin: 12/28/18 21:27 Dose: 5,000 unit Aztreonam 1 gm/ Dextrose 50 mls @ 100 mls/hr IVPB Q8H-IV [facility]; Protocol Last Admin: 12/29/18 02:00 Dose: Not Given Vancomycin HCl (Vancomycin (Pre-Docked)) 1,000 mg in 250 mls @ 250 mls/hr IVPB Q12H [facility]; Protocol Last Admin: 12/29/18 05:18 Dose: 250 mls/hr Insulin Aspart (Novolog Vial Sliding Scale -) 1 vial SQ ACHS [facility]; Protocol Last Admin: 12/29/18 07:04 Dose: 4 units Lactobacillus Acidophilus (Bacid -) 1 tab PO DAILY [facility] Last Admin: 12/28/18 10:43 Dose: 1 tab Levothyroxine Sodium (Synthroid -) 75 mcg PO DAILY@0700 [facility] Last Admin: 12/29/18 06:57 Dose: 75 mcg Losartan Potassium (Cozaar -) 25 mg PO DAILY [facility] Last Admin: 12/28/18 10:42 Dose: 25 mg Metformin HCl (Glucophage -) 500 mg PO DAILY@0700 [facility] Last Admin: 12/29/18 06:56 Dose: 500 mg Methylprednisolone Sodium Succinate (Solu-Medrol -) 40 mg IVPUSH BID [facility] Last Admin: 12/28/18 21:31 Dose: 40 mg Montelukast Sodium (Singulair -) 10 mg PO HS [facility] Last Admin: 12/28/18 21:27 Dose: 10 mg Oxycodone HCl (Roxicodone -) 5 mg PO Q6H PRN PRN Reason: PAIN LEVEL 6-10 Last Admin: 12/29/18 06:55 Dose: 5 mg Pantoprazole Sodium (Protonix -) 20 mg PO DAILY [facility] Last Admin: 12/28/18 10:42 Dose: 20 mg Polyethylene Glycol (Miralax (For Daily Use) -) 17 gm PO DAILY [facility] Last Admin: 12/28/18 10:47 Dose: Not Given Roflumilast (Daliresp -) 500 mcg PO DAILY [facility] Last Admin: 12/28/18 10:44 Dose: 500 mcg Rosuvastatin Calcium (Crestor -) 5 mg PO HS [facility] Last Admin: 12/28/18 21:27 Dose: 5 mg Sodium Chloride ([place] Nasal [place] -) 2 spray NS BID [facility] Last Admin: 12/28/18 22:36 Dose: 1 sprays Tiotropium [place] (Spiriva Respimat) 2 puff IH DAILY [facility] Last Admin: 12/28/18 16:46 Dose: Not Given Physical Examination Vital Signs: Vital Signs Period Temp Pulse Resp BP Sys/Domínguez Pulse Ox Last 24 Hr 97.4 F-98.6 F 79-88 18-22 101-130/53-80 98-100 Constitutional: Yes: No Distress, Calm Eyes: Yes: Conjunctiva Clear HENT: Yes: Atraumatic Neck: Yes: Supple Cardiovascular: Yes: Regular Rate and Rhythm Respiratory: Yes: Diminished Gastrointestinal: Yes: Soft. No: Distention, Tenderness Renal/: No: CVA Tenderness - Left, CVA Tenderness - Right, Hematuria Musculoskeletal: No: Joint Stiffness, Joint Swelling Extremities: No: Cold, Cool, Cyanosis Edema: No Integumentary: No: Venous Stasis Changes Wound/Incision: Yes: Other (sacral decubs R sided closed, L sided 2 open lesions ) Neurological: Cn intact no facial droop or slurred speech, Lower extr 5-/5, UE 5 /5, sensory reduced to Lt in distal LE, gait deferred CBCD WBC 13.8 K/mm3 (4.0-10.0) H 12/27/18 06:30 RBC 3.35 M/mm3 (3.60-5.2) L 12/27/18 06:30 Hgb 9.7 GM/dL (10.7-15.3) L 12/27/18 06:30 Hct 29.4 % (32.4-45.2) L 12/27/18 06:30 MCV 87.9 fl (80-96) 12/27/18 06:30 MCHC 33.1 g/dl (32.0-36.0) 12/27/18 06:30 RDW 15.4 % (11.6-15.6) 12/27/18 06:30 Plt Count 406 K/MM3 (134-434) 12/27/18 06:30 MPV 7.7 fl (7.5-11.1) 12/27/18 06:30 CMP Sodium 135 mmol/L (136-145) L 12/27/18 06:30 Potassium 4.2 mmol/L (3.5-5.1) 12/27/18 06:30 Chloride 95 mmol/L (98-107) L 12/27/18 06:30 Carbon Dioxide 37 mmol/L (21-32) H 12/27/18 06:30 Anion Gap 4 MMOL/L (8-16) L 12/27/18 06:30 BUN 14.2 mg/dL (7-18) 12/27/18 06:30 Creatinine 0.5 mg/dL (0.55-1.3) L 12/27/18 06:30 Random Glucose 144 mg/dL (74-106) H 12/27/18 06:30 Calcium 8.4 mg/dL (8.5-10.1) L 12/27/18 06:30 Total Bilirubin 0.6 mg/dL (0.2-1) 12/27/18 06:30 AST 11 U/L (15-37) L 12/27/18 06:30 ALT 13 U/L (13-61) 12/27/18 06:30 Alkaline Phosphatase 104 U/L (45-117) 12/27/18 06:30 Total Protein 5.5 g/dl (6.4-8.2) L 12/27/18 06:30 Albumin 2.5 g/dl (3.4-5.0) L 12/27/18 06:30 CARDIAC ENZYMES Creatine Kinase 51 U/L (26-192) 12/26/18 06:40 Troponin I < 0.02 ng/ml (0.00-0.05) 12/26/18 06:40 Assessment/Plan 58 year old female with PMH advanced severe COPD on 3-4L O2 19/01, NAVDEEP on CPAP at night, anemia, HTN, GERD, HLD, DM, chronic back pain BIBA to ED from [facility] for increasing SOB x1 - 2 weeks associated with dry cough. Chronic CO2 retainer , Prednisone 5 mg, but was given a higher dose of Prednisone x2 days ago, albuterol nebulizer from [facility], without relief of her symptoms. Pt denied fever , chest pain, sputum production, nausea, vomiting. Pt also complained of her chronic back pain, she applied a lidoderm patch, which she stated she believes made her pain worse. She complains of pain in her abdomen R sided coming from her back; worse with moving. 2 weeks ago became weaker and more SOB; did not get OOB in 1-2 weeks so she started to develop sacral decubs. She had back pain on/off in [place] and she was on oxycodone for awhile; she asked to continue it here ; also on care home steriods. CT abdoment/pelvis with reported compression fractures in T/L spine. Patient getting physical therapy at [facility], discussed with her treatment options including pain mgmt and surgical evaluation. Consult note reviewed, no plan for drainage of hematoma. L spine Ct completed, images reviewed but no report available in chart. Patient resting comfortably this morning and informed her that we are waiting for official report. Continue optimization of pain symptoms. Physical therapy as tolerated. Fall precautions. Is appearing more comfortable.
--- NOTE | 2018-12-29 09:48 | PN ---
Progress Note (short form) - Note Progress Note: c/o back pain, requesting pain meds-seen by neurology this am-awaiting lumbar ct scan results +constipation-still no BM breathing at baseline Vital Signs Period Temp Pulse Resp BP Sys/Domínguez Pulse Ox Last 24 Hr 97.4 F-98.6 F 79-88 18-22 101-130/53-80 98-100 cor-rrr llungsdecreased bs at bases abd soft,nt ext no edema, multiple ecchymoses right buttock with small ulcer- no further purulence noted, adjacent to it is 2- 3 cm indurated area that is ecchymotic CBC, BMP 12/27/18 06:30 12/27/18 06:30 Microbiology 12/26/18 15:45 Blood - Peripheral Venous Blood Culture - Preliminary NO GROWTH OBTAINED AFTER 48 HOURS, INCUBATION TO CONTINUE FOR 3 DAYS. 12/26/18 15:36 Blood - Peripheral Venous Blood Culture - Preliminary NO GROWTH OBTAINED AFTER 48 HOURS, INCUBATION TO CONTINUE FOR 3 DAYS. 12/26/18 14:00 Buttock - Right Gram Stain - Final 12/26/18 14:00 Buttock - Right Wound Culture - Final S Aureus Current Medications Acetaminophen (Tylenol -) 650 mg PO Q6H PRN PRN Reason: PAIN LEVEL 1-5 Last Admin: 12/26/18 03:07 Dose: 650 mg Al Hydroxide/Mg Hydroxide (Mylanta Oral Suspension -) 30 ml PO QID PRN PRN Reason: GAS Albuterol Sulfate (Ventolin 0.083% Nebulizer Soln -) 1 amp NEB QID PRN PRN Reason: SHORT OF BREATH/WHEEZING Last Admin: 12/28/18 16:48 Dose: 1 amp Arformoterol Tartrate (Brovana (Restricted To Pulmonology/Resp) -) 1 amp NEB RBID [facility] Last Admin: 12/29/18 08:08 Dose: 1 amp Aspirin (Asa -) 81 mg PO DAILY [facility] Last Admin: 12/28/18 10:43 Dose: 81 mg Escitalopram Oxalate (Lexapro -) 5 mg PO DAILY [facility] Last Admin: 12/28/18 10:42 Dose: 5 mg Heparin Sodium (Porcine) (Heparin -) 5,000 unit SQ BID [facility] Last Admin: 12/28/18 21:27 Dose: 5,000 unit Aztreonam 1 gm/ Dextrose 50 mls @ 100 mls/hr IVPB Q8H-IV [facility]; Protocol Last Admin: 12/29/18 02:00 Dose: Not Given Vancomycin HCl (Vancomycin (Pre-Docked)) 1,000 mg in 250 mls @ 250 mls/hr IVPB Q12H [facility]; Protocol Last Admin: 12/29/18 05:18 Dose: 250 mls/hr Insulin Aspart (Novolog Vial Sliding Scale -) 1 vial SQ ACHS [facility]; Protocol Last Admin: 12/29/18 07:04 Dose: 4 units Lactobacillus Acidophilus (Bacid -) 1 tab PO DAILY [facility] Last Admin: 12/28/18 10:43 Dose: 1 tab Levothyroxine Sodium (Synthroid -) 75 mcg PO DAILY@0700 [facility] Last Admin: 12/29/18 06:57 Dose: 75 mcg Losartan Potassium (Cozaar -) 25 mg PO DAILY [facility] Last Admin: 12/28/18 10:42 Dose: 25 mg Metformin HCl (Glucophage -) 500 mg PO DAILY@0700 [facility] Last Admin: 12/29/18 06:56 Dose: 500 mg Methylprednisolone Sodium Succinate (Solu-Medrol -) 40 mg IVPUSH BID [facility] Last Admin: 12/28/18 21:31 Dose: 40 mg Montelukast Sodium (Singulair -) 10 mg PO [facility] Last Admin: 12/28/18 21:27 Dose: 10 mg Oxycodone HCl (Roxicodone -) 5 mg PO Q6H PRN PRN Reason: PAIN LEVEL 6-10 Last Admin: 12/29/18 06:55 Dose: 5 mg Pantoprazole Sodium (Protonix -) 20 mg PO DAILY [facility] Last Admin: 12/28/18 10:42 Dose: 20 mg Polyethylene Glycol (Miralax (For Daily Use) -) 17 gm PO DAILY [facility] Last Admin: 12/28/18 10:47 Dose: Not Given Roflumilast (Daliresp -) 500 mcg PO DAILY [facility] Last Admin: 12/28/18 10:44 Dose: 500 mcg Rosuvastatin Calcium (Crestor -) 5 mg PO HS [facility] Last Admin: 12/28/18 21:27 Dose: 5 mg Sodium Chloride (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 penicillin allergy continue vancomycin and azactam wbc improved f/u labs vancomycin trough f/u ct scan management of buttock ulcer per surgery mrsa contact isolation consider pain management evaluation Problem List - Problems (1) Leukocytosis Code(s): D72.829 - ELEVATED WHITE BLOOD CELL COUNT, UNSPECIFIED (2) Abdominal pain Code(s): R10.9 - UNSPECIFIED ABDOMINAL PAIN (3) Abscess Code(s): L02.91 - CUTANEOUS ABSCESS, UNSPECIFIED (4) Chronic respiratory failure Code(s): J96.10 - CHRONIC RESPIRATORY FAILURE, UNSP W HYPOXIA OR HYPERCAPNIA (5) Penicillin allergy Code(s): Z88.0 - ALLERGY STATUS TO PENICILLIN
[2018-12-29] MEDS ORDERED: PT OWN MED DRAWER 7, Y5N ONE (11:15)
[2018-12-29] MEDS: TIOTROPIUM BROMIDE 2.5 MCG (SPIRIVA) RESPIMAT INHALER IH SCH (11:22)
[2018-12-29] MEDS: SODIUM CHLORIDE NASAL SPRAY 44 ML BOTTLE NS SCH ×2 (11:22→22:49)
[2018-12-29] MEDS: PANTOPRAZOLE 20 MG TABLET (FP) PO SCH (11:22)
[2018-12-29] MEDS: ESCITALOPRAM OXALATE 10 MG TABLET (FP) PO SCH (11:23)
[2018-12-29] MEDS: ASPIRIN 81 MG CHEWABLE TABLETS PO SCH (11:23)
[2018-12-29] MEDS: LACTOBACILLUS ACIDOPHILUS 1 TABLET PO SCH (11:23)
[2018-12-29] MEDS: HEPARIN NA (PORCINE) 5,000 UNITS/ML 1ML VIAL SQ SCH ×2 (11:24→22:48)
[2018-12-29] MEDS: ROFLUMILAST 500 MCG TABLET PO SCH (11:24)
[2018-12-29] MEDS: LOSARTAN POTASSIUM 25 MG TABLET PO SCH (11:24)
[2018-12-29] MEDS: methylPREDNISolone NA SUCC 40 MG/1 ML VIAL IVPUSH SCH (11:25)
[2018-12-29] MEDS: POLYETHYLENE GLYCOL 3350 119 GM BTL PO SCH (11:25)
--- NOTE | 2018-12-29 13:40 | PN ---
Progress Note (short form) - Note Progress Note: PULMONARY Denies shortness of breath, cough or wheezing. Still with back and abdominal pain. CT lumbar spine read pending. Vital Signs Period Temp Pulse Resp BP Sys/Domínguez Pulse Ox Last 24 Hr 97.4 F-98.4 F 79-88 18-22 101-130/53-80 98-100 Gen: NAD at rest Heart: RRR Lung: distant breath sounds, no wheezes Abd: softly distended Ext: no edema CBC, BMP 12/27/18 06:30 12/27/18 06:30 Active Medications Acetaminophen (Tylenol -) 650 mg PO Q6H PRN PRN Reason: PAIN LEVEL 1-5 Last Admin: 12/26/18 03:07 Dose: 650 mg Al Hydroxide/Mg Hydroxide (Mylanta Oral Suspension -) 30 ml PO QID PRN PRN Reason: GAS Albuterol Sulfate (Ventolin 0.083% Nebulizer Soln -) 1 amp NEB QID PRN PRN Reason: SHORT OF BREATH/WHEEZING Last Admin: 12/28/18 16:48 Dose: 1 amp Arformoterol Tartrate (Brovana (Restricted To Pulmonology/Resp) -) 1 amp NEB RBID [facility] Last Admin: 12/29/18 08:08 Dose: 1 amp Aspirin (Asa -) 81 mg PO DAILY [facility] Last Admin: 12/29/18 11:23 Dose: 81 mg Escitalopram Oxalate (Lexapro -) 5 mg PO DAILY [facility] Last Admin: 12/29/18 11:23 Dose: 5 mg Heparin Sodium (Porcine) (Heparin -) 5,000 unit SQ BID [facility] Last Admin: 12/29/18 11:24 Dose: 5,000 unit Aztreonam 1 gm/ Dextrose 50 mls @ 100 mls/hr IVPB Q8H-IV [facility]; Protocol Last Admin: 12/29/18 11:23 Dose: 100 mls/hr Vancomycin HCl (Vancomycin (Pre-Docked)) 1,000 mg in 250 mls @ 250 mls/hr IVPB Q12H [facility]; Protocol Last Admin: 12/29/18 05:18 Dose: 250 mls/hr Insulin Aspart (Novolog Vial Sliding Scale -) 1 vial SQ ACHS [facility]; Protocol Last Admin: 12/29/18 12:26 Dose: Not Given Lactobacillus Acidophilus (Bacid -) 1 tab PO DAILY [facility] Last Admin: 12/29/18 11:23 Dose: 1 tab Levothyroxine Sodium (Synthroid -) 75 mcg PO DAILY@0700 [facility] Last Admin: 12/29/18 06:57 Dose: 75 mcg Losartan Potassium (Cozaar -) 25 mg PO DAILY [facility] Last Admin: 12/29/18 11:24 Dose: 25 mg Metformin HCl (Glucophage -) 500 mg PO DAILY@0700 [facility] Last Admin: 12/29/18 06:56 Dose: 500 mg Methylprednisolone Sodium Succinate (Solu-Medrol -) 40 mg IVPUSH BID [facility] Last Admin: 12/29/18 11:25 Dose: 40 mg Montelukast Sodium (Singulair -) 10 mg PO [facility] Last Admin: 12/28/18 21:27 Dose: 10 mg Oxycodone HCl (Roxicodone -) 5 mg PO Q6H PRN PRN Reason: PAIN LEVEL 6-10 Last Admin: 12/29/18 12:21 Dose: 5 mg Pantoprazole Sodium (Protonix -) 20 mg PO DAILY [facility] Last Admin: 12/29/18 11:22 Dose: 20 mg Polyethylene Glycol (Miralax (For Daily Use) -) 17 gm PO DAILY [facility] Last Admin: 12/29/18 11:25 Dose: 17 grams Roflumilast (Daliresp -) 500 mcg PO DAILY [facility] Last Admin: 12/29/18 11:24 Dose: 500 mcg Rosuvastatin Calcium (Crestor -) 5 mg PO HS [facility] Last Admin: 12/28/18 21:27 Dose: 5 mg Sodium Chloride ([place] Nasal [place] -) 2 spray NS BID [facility] Last Admin: 12/29/18 11:22 Dose: 2 sprays Tiotropium [place] (Spiriva Respimat) 2 puff IH DAILY [facility] Last Admin: 12/29/18 11:22 Dose: 2 puff A/P Acute on Chronic Hypoxic and Hypercapneic Respiratory Failure Pneumonia Acute COPD Exacerbation LV Diastolic Dysfunction Hypothyroidism NAVDEEP Hyperlipidemia - f/u CT results - pain control - continue antibiotics - will decrease medrol to daily - inhaled bronchodilators - O2 to keep SpO2 >90% - BiPAP as needed - DVT prophylaxis
--- NOTE | 2018-12-29 14:26 | PN ---
Progress Note, Physician Chief Complaint: feels better; in bed afebrile NAD at bedside consults tests and plan d/w pt and - Current Medication List Current Medications: Active Medications Acetaminophen (Tylenol -) 650 mg PO Q6H PRN PRN Reason: PAIN LEVEL 1-5 Last Admin: 12/26/18 03:07 Dose: 650 mg Al Hydroxide/Mg Hydroxide (Mylanta Oral Suspension -) 30 ml PO QID PRN PRN Reason: GAS Albuterol Sulfate (Ventolin 0.083% Nebulizer Soln -) 1 amp NEB QID PRN PRN Reason: SHORT OF BREATH/WHEEZING Last Admin: 12/28/18 16:48 Dose: 1 amp Arformoterol Tartrate (Brovana (Restricted To Pulmonology/Resp) -) 1 amp NEB RBID [facility] Last Admin: 12/29/18 08:08 Dose: 1 amp Aspirin (Asa -) 81 mg PO DAILY [facility] Last Admin: 12/29/18 11:23 Dose: 81 mg Escitalopram Oxalate (Lexapro -) 5 mg PO DAILY [facility] Last Admin: 12/29/18 11:23 Dose: 5 mg Heparin Sodium (Porcine) (Heparin -) 5,000 unit SQ BID [facility] Last Admin: 12/29/18 11:24 Dose: 5,000 unit Aztreonam 1 gm/ Dextrose 50 mls @ 100 mls/hr IVPB Q8H-IV [facility]; Protocol Last Admin: 12/29/18 11:23 Dose: 100 mls/hr Vancomycin HCl (Vancomycin (Pre-Docked)) 1,000 mg in 250 mls @ 250 mls/hr IVPB Q12H [facility]; Protocol Last Admin: 12/29/18 05:18 Dose: 250 mls/hr Insulin Aspart (Novolog Vial Sliding Scale -) 1 vial SQ ACHS [facility]; Protocol Last Admin: 12/29/18 12:26 Dose: Not Given Lactobacillus Acidophilus (Bacid -) 1 tab PO DAILY [facility] Last Admin: 12/29/18 11:23 Dose: 1 tab Levothyroxine Sodium (Synthroid -) 75 mcg PO DAILY@0700 [facility] Last Admin: 12/29/18 06:57 Dose: 75 mcg Losartan Potassium (Cozaar -) 25 mg PO DAILY [facility] Last Admin: 12/29/18 11:24 Dose: 25 mg Metformin HCl (Glucophage -) 500 mg PO DAILY@0700 [facility] Last Admin: 12/29/18 06:56 Dose: 500 mg Methylprednisolone Sodium Succinate (Solu-Medrol -) 40 mg IVPUSH DAILY [facility] Montelukast Sodium (Singulair -) 10 mg PO HS [facility] Last Admin: 12/28/18 21:27 Dose: 10 mg Oxycodone HCl (Roxicodone -) 5 mg PO Q6H PRN PRN Reason: PAIN LEVEL 6-10 Last Admin: 12/29/18 12:21 Dose: 5 mg Pantoprazole Sodium (Protonix -) 20 mg PO DAILY [facility] Last Admin: 12/29/18 11:22 Dose: 20 mg Polyethylene Glycol (Miralax (For Daily Use) -) 17 gm PO DAILY [facility] Last Admin: 12/29/18 11:25 Dose: 17 grams Roflumilast (Daliresp -) 500 mcg PO DAILY [facility] Last Admin: 12/29/18 11:24 Dose: 500 mcg Rosuvastatin Calcium (Crestor -) 5 mg PO [facility] Last Admin: 12/28/18 21:27 Dose: 5 mg Sodium Chloride ([place] Nasal [place] -) 2 spray NS BID [facility] Last Admin: 12/29/18 11:22 Dose: 2 sprays Tiotropium [place] [facility] (Spiriva Respimat) 2 puff IH DAILY [facility] Last Admin: 12/29/18 11:22 Dose: 2 puff - Objective Vital Signs: Vital Signs Temperature 97.9 F 12/29/18 10:00 Pulse Rate 84 12/29/18 10:00 Respiratory Rate 22 H 12/29/18 10:00 Blood Pressure 112/66 12/29/18 06:00 O2 Sat by Pulse Oximetry (%) 99 12/29/18 09:00 Constitutional: Yes: No Distress, Calm Eyes: Yes: Conjunctiva Clear HENT: Yes: Atraumatic Neck: Yes: Supple Cardiovascular: Yes: Regular Rate and Rhythm Respiratory: Yes: CTA Bilaterally Gastrointestinal: Yes: Soft. No: Tenderness Genitourinary: No: CVA Tenderness - Left, CVA Tenderness - Right, Hematuria Musculoskeletal: No: Joint Stiffness, Joint Swelling Extremities: No: Cold, Cool, Cyanosis Edema: No Integumentary: Yes: Bruising, Pressure Ulcer Neurological: Yes: WNL, Alert, Oriented ...Motor Strength: WNL Psychiatric: Yes: WNL, Alert, Oriented. No: Agitated, Suicidal Ideation Labs: CBC, BMP 12/27/18 06:30 12/27/18 06:30 - ....Imaging Other: Report Reviewed Assessment/Plan 58 year old female with PMH advanced severe COPD on 3-4L O2 19/01, NAVDEEP on CPAP at night, anemia, HTN, GERD, HLD, DM, chronic back pain admitted with COPDexac and PNA, back pain OP compression fractures, high WBC, decubs; surgery eval for decubs; turn in bed q1h, OOB to chair with assist; IV ATB per ID; IV steroids; pulm f/u stools softeners spep upep negative, neurology f/u for LBP; CT spine noted; will ask for heme eval for compression fractures r/o pathological fractures she has severe advanced COPD and she was on steroids long time; d/w pt and possible SE steroids (DM, HTN, OP, Cushingoid) they are aware; she was advised in the past to go for lung transplant eval but she could not go yet falls PFX; do not get OOB alone; call for help if needed prognosis guarded d/w pt and staff
[2018-12-29 16:54] LABS: HEMATOCRIT 33.4 % (32.4-45.2); HEMOGLOBIN 10.6 GM/dL (10.7-15.3); MCH 28.7 pg (25.7-33.7); MCHC 31.7 g/dl (32.0-36.0); MEAN CELL VOLUME 90.7 fl (80-96); MEAN PLT VOLUME 8.3 fl (7.5-11.1); PLATELET COUNT 408 K/MM3 (134-434); RBC 3.69 M/mm3 (3.60-5.2); RDW 15.3 % (11.6-15.6); WHITE BLOOD COUNT 21.2 K/mm3 (4.0-10.0)
[2018-12-29 17:25] LABS: ALBUMIN 2.5 g/dl (3.4-5.0); BILIRUBIN,TOTAL 0.3 mg/dL (0.2-1); BLOOD UREA NITROGEN 15.5 mg/dL (7-18); CALCIUM 8.4 mg/dL (8.5-10.1); CREATININE 0.5 mg/dL (0.55-1.3); POTASSIUM 4.2 mmol/L (3.5-5.1); TOT PROT 5.3 g/dl (6.4-8.2)
[2018-12-29] MEDS: MONTELUKAST NA 10 MG TABLET PO SCH (22:48)
[2018-12-29] MEDS: ROSUVASTATIN CA 5 MG TABLET (FP) PO SCH (22:48)
[2018-12-30] MEDS: oxyCODONE HCL 5 MG TABLET PO PRN ×4 (01:54→23:46)
[2018-12-30] MEDS ORDERED: AZTREONAM 1 GM VIAL (RESTRICTED TO ID) ONE ×4 (02:00→23:36)
[2018-12-30] MEDS ORDERED: DEXTROSE 5%-WATER - 50 ML IVPB ONE ×4 (02:01→23:36)
[2018-12-30] MEDS: AZTREONAM 1 GM in DEXTROSE 5%-WATER - 50 ML IVPB SCH ×3 (02:08→17:24)
[2018-12-30] MEDS: INSULIN SLIDING SCALE (NOVOLOG) 1 VIAL SQ SCH ×4 (06:28→22:01)
[2018-12-30] MEDS: metFORMIN HCL 500 MG TABLET (FP) PO SCH (06:29)
[2018-12-30] MEDS: LEVOTHYROXINE NA 75 MCG TABLET (FP) PO SCH (06:33)
[2018-12-30] MEDS: ARFORMOTEROL TARTRATE 15 MCG/2 ML VIAL NEB SCH ×2 (07:39→20:31)
[2018-12-30] MEDS: ACETAMINOPHEN 325 MG TABLET (FP) PO PRN ×2 (08:53→23:45)
--- NOTE | 2018-12-30 09:28 | PN ---
Progress Note (short form) - Note Progress Note: PULMONARY Denies shortness of breath, cough or wheezing. CT spine showing multilevel compression fractures in thoracic and lumbar spine. Vital Signs Period Temp Pulse Resp BP Sys/Domínguez Pulse Ox Last 24 Hr 97.6 F-99.1 F 80-98 18-22 102-126/57-70 99-100 Gen: NAD at rest Heart: RRR Lung: distant breath sounds, no wheezes Abd: softly distended Ext: no edema CBC, BMP 12/29/18 16:00 12/29/18 16:00 Active Medications Acetaminophen (Tylenol -) 650 mg PO Q6H PRN PRN Reason: PAIN LEVEL 1-5 Last Admin: 12/30/18 08:53 Dose: 650 mg Al Hydroxide/Mg Hydroxide (Mylanta Oral Suspension -) 30 ml PO QID PRN PRN Reason: GAS Albuterol Sulfate (Ventolin 0.083% Nebulizer Soln -) 1 amp NEB QID PRN PRN Reason: SHORT OF BREATH/WHEEZING Last Admin: 12/28/18 16:48 Dose: 1 amp Arformoterol Tartrate (Brovana (Restricted To Pulmonology/Resp) -) 1 amp NEB RBID [facility] Last Admin: 12/30/18 07:39 Dose: 1 amp Aspirin (Asa -) 81 mg PO DAILY [facility] Last Admin: 12/29/18 11:23 Dose: 81 mg Escitalopram Oxalate (Lexapro -) 5 mg PO DAILY [facility] Last Admin: 12/29/18 11:23 Dose: 5 mg Heparin Sodium (Porcine) (Heparin -) 5,000 unit SQ BID [facility] Last Admin: 12/29/18 22:48 Dose: 5,000 unit Aztreonam 1 gm/ Dextrose 50 mls @ 100 mls/hr IVPB Q8H-IV [facility]; Protocol Last Admin: 12/30/18 02:08 Dose: 100 mls/hr Vancomycin HCl 1,250 mg/ (Dextrose) 250 mls @ 166.667 mls/hr IVPB DAILY [facility] Insulin Aspart (Novolog Vial Sliding Scale -) 1 vial SQ ACHS [facility]; Protocol Last Admin: 12/30/18 06:28 Dose: Not Given Lactobacillus Acidophilus (Bacid -) 1 tab PO DAILY [facility] Last Admin: 12/29/18 11:23 Dose: 1 tab Levothyroxine Sodium (Synthroid -) 75 mcg PO DAILY@0700 [facility] Last Admin: 12/30/18 06:33 Dose: 75 mcg Losartan Potassium (Cozaar -) 25 mg PO DAILY [facility] Last Admin: 12/29/18 11:24 Dose: 25 mg Metformin HCl (Glucophage -) 500 mg PO DAILY@0700 [facility] Last Admin: 12/30/18 06:29 Dose: Not Given Methylprednisolone Sodium Succinate (Solu-Medrol -) 40 mg IVPUSH DAILY [facility] Montelukast Sodium (Singulair -) 10 mg PO HS [facility] Last Admin: 12/29/18 22:48 Dose: 10 mg Oxycodone HCl (Roxicodone -) 5 mg PO Q6H PRN PRN Reason: PAIN LEVEL 6-10 Last Admin: 12/30/18 08:53 Dose: 5 mg Pantoprazole Sodium (Protonix -) 20 mg PO DAILY [facility] Last Admin: 12/29/18 11:22 Dose: 20 mg Polyethylene Glycol (Miralax (For Daily Use) -) 17 gm PO DAILY [facility] Last Admin: 12/29/18 11:25 Dose: 17 grams Roflumilast (Daliresp -) 500 mcg PO DAILY [facility] Last Admin: 12/29/18 11:24 Dose: 500 mcg Rosuvastatin Calcium (Crestor -) 5 mg PO [facility] Last Admin: 12/29/18 22:48 Dose: 5 mg Sodium Chloride ([place] Nasal [place] -) 2 spray NS BID [facility] Last Admin: 12/29/18 22:49 Dose: 2 sprays Tiotropium [place] (Spiriva Respimat) 2 puff IH DAILY [facility] Last Admin: 12/29/18 11:22 Dose: 2 puff A/P Acute on Chronic Hypoxic and Hypercapneic Respiratory Failure Pneumonia Acute COPD Exacerbation LV Diastolic Dysfunction Hypothyroidism NAVDEEP Thoracic/Lumbar Compression Fractures Hyperlipidemia - pain control - consider pain management evaluation, ?kyphoplasty - continue antibiotics - medrol taper - inhaled bronchodilators - O2 to keep SpO2 >90% - BiPAP as needed - DVT prophylaxis
[2018-12-30] MEDS ORDERED: PT OWN MED DRAWER 7, Y5N ONE (10:11)
[2018-12-30] MEDS: LOSARTAN POTASSIUM 25 MG TABLET PO SCH (10:47)
[2018-12-30] MEDS: POLYETHYLENE GLYCOL 3350 119 GM BTL PO SCH (10:47)
[2018-12-30] MEDS: ASPIRIN 81 MG CHEWABLE TABLETS PO SCH (10:47)
[2018-12-30] MEDS: ROFLUMILAST 500 MCG TABLET PO SCH (10:47)
[2018-12-30] MEDS: ESCITALOPRAM OXALATE 10 MG TABLET (FP) PO SCH (10:47)
[2018-12-30] MEDS: LACTOBACILLUS ACIDOPHILUS 1 TABLET PO SCH (10:47)
[2018-12-30] MEDS: SODIUM CHLORIDE NASAL SPRAY 44 ML BOTTLE NS SCH ×2 (10:48→22:04)
[2018-12-30] MEDS: TIOTROPIUM BROMIDE 2.5 MCG (SPIRIVA) RESPIMAT INHALER IH SCH (10:48)
[2018-12-30] MEDS: methylPREDNISolone NA SUCC 40 MG/1 ML VIAL IVPUSH SCH (10:48)
[2018-12-30] MEDS: PANTOPRAZOLE 20 MG TABLET (FP) PO SCH (10:48)
[2018-12-30] MEDS: HEPARIN NA (PORCINE) 5,000 UNITS/ML 1ML VIAL SQ SCH ×2 (10:49→22:02)
[2018-12-30] MEDS ORDERED: INSULIN (NOVOLOG) ASPART 100 UNITS/ML 10ML VIAL ONE (11:18)
[2018-12-30] MEDS: VANCOMYCIN HCL 1,250 MG in DEXTROSE 5%-WATER - 250 ML IVPB SCH (11:25)
--- NOTE | 2018-12-30 11:27 | PN ---
Progress Note, Physician Chief Complaint: less SOB, back pain better with oxycodone consults appreciated - Current Medication List Current Medications: Active Medications Acetaminophen (Tylenol -) 650 mg PO Q6H PRN PRN Reason: PAIN LEVEL 1-5 Last Admin: 12/30/18 08:53 Dose: 650 mg Al Hydroxide/Mg Hydroxide (Mylanta Oral Suspension -) 30 ml PO QID PRN PRN Reason: GAS Albuterol Sulfate (Ventolin 0.083% Nebulizer Soln -) 1 amp NEB QID PRN PRN Reason: SHORT OF BREATH/WHEEZING Last Admin: 12/28/18 16:48 Dose: 1 amp Arformoterol Tartrate (Brovana (Restricted To Pulmonology/Resp) -) 1 amp NEB RBID [facility] Last Admin: 12/30/18 07:39 Dose: 1 amp Aspirin (Asa -) 81 mg PO DAILY [facility] Last Admin: 12/30/18 10:47 Dose: 81 mg Escitalopram Oxalate (Lexapro -) 5 mg PO DAILY [facility] Last Admin: 12/30/18 10:47 Dose: 5 mg Heparin Sodium (Porcine) (Heparin -) 5,000 unit SQ BID [facility] Last Admin: 12/30/18 10:49 Dose: 5,000 unit Aztreonam 1 gm/ Dextrose 50 mls @ 100 mls/hr IVPB Q8H-IV [facility]; Protocol Last Admin: 12/30/18 10:48 Dose: 100 mls/hr Vancomycin HCl 1,250 mg/ (Dextrose) 250 mls @ 166.667 mls/hr IVPB DAILY [facility] Last Admin: 12/30/18 11:25 Dose: 166.667 mls/hr Insulin Aspart (Novolog Vial Sliding Scale -) 1 vial SQ ACHS [facility]; Protocol Last Admin: 12/30/18 11:23 Dose: Not Given Lactobacillus Acidophilus (Bacid -) 1 tab PO DAILY [facility] Last Admin: 12/30/18 10:47 Dose: 1 tab Levothyroxine Sodium (Synthroid -) 75 mcg PO DAILY@0700 [facility] Last Admin: 12/30/18 06:33 Dose: 75 mcg Losartan Potassium (Cozaar -) 25 mg PO DAILY [facility] Last Admin: 12/30/18 10:47 Dose: 25 mg Metformin HCl (Glucophage -) 500 mg PO DAILY@0700 [facility] Last Admin: 12/30/18 06:29 Dose: Not Given Methylprednisolone Sodium Succinate (Solu-Medrol -) 40 mg IVPUSH DAILY [facility] Last Admin: 12/30/18 10:48 Dose: 40 mg Montelukast Sodium (Singulair -) 10 mg PO HS [facility] Last Admin: 12/29/18 22:48 Dose: 10 mg Oxycodone HCl (Roxicodone -) 5 mg PO Q6H PRN PRN Reason: PAIN LEVEL 6-10 Last Admin: 12/30/18 08:53 Dose: 5 mg Pantoprazole Sodium (Protonix -) 20 mg PO DAILY [facility] Last Admin: 12/30/18 10:48 Dose: 20 mg Polyethylene Glycol (Miralax (For Daily Use) -) 17 gm PO DAILY [facility] Last Admin: 12/30/18 10:47 Dose: Not Given Roflumilast (Daliresp -) 500 mcg PO DAILY [facility] Last Admin: 12/30/18 10:47 Dose: 500 mcg Rosuvastatin Calcium (Crestor -) 5 mg PO [facility] Last Admin: 12/29/18 22:48 Dose: 5 mg Sodium Chloride ([place] Nasal [place] -) 2 spray NS BID [facility] Last Admin: 12/30/18 10:48 Dose: 2 sprays Tiotropium [place] (Spiriva Respimat) 2 puff IH DAILY [facility] Last Admin: 12/30/18 10:48 Dose: 2 puff - Objective Vital Signs: Vital Signs Temperature 98.3 F 12/30/18 08:45 Pulse Rate 94 H 12/30/18 08:45 Respiratory Rate 20 12/30/18 08:45 Blood Pressure 113/41 L 12/30/18 08:45 O2 Sat by Pulse Oximetry (%) 99 12/30/18 09:00 Constitutional: Yes: No Distress, Calm Eyes: Yes: Conjunctiva Clear HENT: Yes: Atraumatic Neck: Yes: Supple Cardiovascular: Yes: Regular Rate and Rhythm Respiratory: Yes: Diminished Gastrointestinal: Yes: Soft. No: Tenderness Genitourinary: No: CVA Tenderness - Left, CVA Tenderness - Right Musculoskeletal: No: Joint Stiffness, Joint Swelling Extremities: No: Cold, Cool, Cyanosis Edema: No Integumentary: Yes: Bruising. No: Rash Neurological: Yes: WNL, Alert, Oriented ...Motor Strength: WNL Psychiatric: Yes: WNL, Alert, Oriented. No: Agitated, Suicidal Ideation Labs: CBC, BMP 12/29/18 16:00 12/29/18 16:00 - ....Imaging Other: Report Reviewed Assessment/Plan 58 year old female with PMH advanced severe COPD on 3-4L O2 19/01, NAVDEEP on CPAP at night, anemia, HTN, GERD, HLD, DM, chronic back pain admitted with COPD exac and PNA, back pain OP compression fractures, high WBC, decubs; surgery eval for decubs; turn in bed q1h, OOB to chair with assist; IV ATB per ID; IV steroids; pulm f/u stools softeners spep upep negative, neurology f/u for LBP; CT spine noted; heme input appreciated; will d.w pain management and IR prognosis guarded d/w pt and staff
--- NOTE | 2018-12-30 13:37 | PN ---
Progress Note (short form) - Note Progress Note: Consult dictated 58 year old with COPD, diastolic CHF, HBP, HPL, NAVDEEP, acute.chronic hypercapneic respirtory failure , anemia, compression fractures. Presented with pneumonia, exacerbation of COPD, Back pains related to multiple thoracic and lumbar spine compression fractures, not previously seen on [address] CT. Last Vital Signs Temp Pulse Resp BP Pulse Ox 98.3 F 94 H 20 113/41 L 99 12/30/18 08:45 12/30/18 08:45 12/30/18 08:45 12/30/18 08:45 12/30/18 09:00 HEENT: PENG, EOM Intact Oropharynx: No thrush, No mucositis Neck: Supple Nodes: Without adenopathy Breasts: Without masses Cor: RSR, No murmurs, No gallops Lungs: diminished breath sounds Abd: Soft, Normal bowel sounds, No organomegaly Ext:No significant edema Skin: , Integument intact, large RUE distal ecchymoses Catheter CBC, BMP 12/29/18 16:00 12/29/18 16:00 Current Medications Generic Name Dose Route Start Last Admin Trade Name Freq PRN Reason Stop Dose Admin Acetaminophen 650 mg 12/26/18 01:03 12/30/18 08:53 Tylenol - PO 650 mg Q6H PRN Administration PAIN LEVEL 1-5 Al Hydroxide/Mg Hydroxide 30 ml 12/25/18 21:49 Mylanta Oral Suspension - PO QID PRN GAS Albuterol Sulfate 1 amp 12/25/18 21:49 12/28/18 16:48 Ventolin 0.083% Nebulizer Soln - NEB 1 amp QID PRN Administration SHORT OF BREATH/WHEEZING Arformoterol Tartrate 1 amp 12/25/18 22:00 12/30/18 07:39 Brovana (Restricted To Pulmonology/Resp) - NEB 1 amp RBID [facility] Administration Aspirin 81 mg 12/26/18 10:00 12/30/18 10:47 Asa - PO 81 mg DAILY [facility] Administration Escitalopram Oxalate 5 mg 12/26/18 10:00 12/30/18 10:47 Lexapro - PO 5 mg DAILY [facility] Administration Heparin Sodium (Porcine) 5,000 unit 12/25/18 22:00 12/30/18 10:49 Heparin - SQ 5,000 unit BID [facility] Administration Aztreonam 1 gm/ Dextrose 50 mls @ 100 mls/hr 12/26/18 16:09 12/30/18 10:48 IVPB 100 mls/hr Q8H-IV [facility] Administration Protocol Vancomycin HCl 1,250 mg/ 250 mls @ 166.667 mls/hr 12/30/18 10:00 12/30/18 11: 25 Dextrose IVPB 166.667 mls/hr DAILY [facility] Administration Insulin Aspart 1 vial 12/26/18 07:00 12/30/18 11:23 Novolog Vial Sliding Scale - SQ Not Given ACHS [facility] Protocol Lactobacillus Acidophilus 1 tab 12/26/18 10:00 12/30/18 10:47 Bacid - PO 1 tab DAILY [facility] Administration Levothyroxine Sodium 75 mcg 12/26/18 07:00 12/30/18 06:33 Synthroid - PO 75 mcg DAILY@0700 [facility] Administration Losartan Potassium 25 mg 12/26/18 10:00 12/30/18 10:47 Cozaar - PO 25 mg DAILY [facility] Administration Metformin HCl 500 mg 12/26/18 07:00 12/30/18 06:29 Glucophage - PO Not Given DAILY@0700 [facility] Methylprednisolone Sodium Succinate 40 mg 12/30/18 10:00 12/30/18 10:48 Solu-Medrol - IVPUSH 40 mg DAILY [facility] Administration Montelukast Sodium 10 mg 12/25/18 22:00 12/29/18 22:48 Singulair - PO 10 mg HS [facility] Administration Oxycodone HCl 5 mg 12/26/18 16:45 12/30/18 08:53 Roxicodone - PO 5 mg Q6H PRN Administration PAIN LEVEL 6-10 Pantoprazole Sodium 20 mg 12/26/18 10:00 12/30/18 10:48 Protonix - PO 20 mg DAILY [facility] Administration Polyethylene Glycol 17 gm 12/26/18 14:30 12/30/18 10:47 Miralax (For Daily Use) - PO Not Given DAILY [facility] Roflumilast 500 mcg 12/26/18 10:00 12/30/18 10:47 Daliresp - PO 500 mcg DAILY [facility] Administration Rosuvastatin Calcium 5 mg 12/25/18 22:00 12/29/18 22:48 Crestor - PO 5 mg HS [facility] Administration Sodium Chloride 2 spray 12/25/18 22:00 12/30/18 10:48 [place] Nasal [place] - NS 2 sprays BID [facility] Administration Tiotropium [place] 2 puff 12/26/18 10:00 12/30/18 10:48 Spiriva Respimat IH 2 puff DAILY [facility] Administration Impression: Exacerbation of COPD Pneumonia Acute/chronic hypercapneic respiratory failure NAVDEEP Leucocytosis Anemia Multiple compression fractures thoracic and lumbar spine Patient cannot tolerate a closed MRI for further investigation of spine compressions No "M" component in serum. Will further evaluate protein studies No masses on breast exam ,mammography annually- negative, and chest and abdomen CT all without evidence of malignancy Negative family hx of malignancy Aemia likely chronic disease with pneumonia , decubitus Leucocytosis secondary to steroids +infection (pneumonia, decubitus,) Suspect chronic steroid use has led to compression fractures. ? discuss with pain management or I.R. possible roleof kyphoplasty
--- NOTE | 2018-12-30 13:48 | CONS ---
DATE OF CONSULTATION: 12/30/2018 HISTORY OF PRESENT ILLNESS: This is a 58-year-old female who entered with pneumonia, exacerbation of COPD. She is a resident of a alf. SOCIAL HISTORY: She is Spanish background. She is a smoker of 2 packs per day beginning at a young age and discontinued 10 years earlier. She is only a social drinker. 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 No illicit drugs recently. FAMILY HISTORY: Includes a mother and father who of COPD, a sister of lung problems as well. There is no cancer in the family. PAST MEDICAL HISTORY: Includes hypertension, hyperlipidemia, diastolic CHF, sleep apnea, COPD, oxygen dependent. SURGICAL HISTORY: History of and history of left total knee replacement. REVIEW OF SYSTEMS: No significant headaches, no diplopia, no epistaxis. Oropharynx occasionally dry. No dysphagia, odynophagia. Short of breath, difficulty breathing, cough nonproductive. No chest pain. Mammograms annually, last 1 year earlier nonremarkable. No nausea, vomiting, diarrhea. Constipation positive. No melena, hematochezia. No dysuria, hematuria. No vaginal bleeding. Significant back pain. PHYSICAL EXAMINATION: Vital Signs: BP 113/41, pulse 94, respiratory rate 20, temperature 98.3. HEENT: PERRLA. EOM intact. Patient has nasal O2. Oropharynx: No thrush, no pharyngitis. Neck: Supple. Somewhat cushingoid. Lungs: Diminished breath sounds. Cardiac: RSR. Breasts: No dominant masses. Abdomen: Somewhat distended. Extremities: No significant edema. Large ecchymosis, right upper extremity. LABORATORY: Sodium 139, K 42, chloride 97, CO2 of 37, creatinine 0.5, calcium 8.4, AST 15, ALT 17, alkaline phosphatase 105, protein 5.3, albumin 2.5. WBC 25 and 21.2, hematocrit 33.4, platelets . No M spike. Thoracic and lumbar spine compression fracture, some of which are new, questionable whether or not they are pathologic. Chest CT: Right and left lower lobe consolidation with effusions, cardiomegaly, compression fractures, lower thoracic spine, lumbar spine. IMPRESSION: A 58-year-old female with multiple compression fractures. A history of oxygen dependence with chronic obstructive pulmonary disease, chronic prednisone therapy. Unable to tolerate MRI as she is claustrophobic and declines same. No obvious malignancy on chest CT, abdominal CT and pelvic CT. Recent mammogram nonrevealing. No M spike in serum. Will get additional protein studies. Suspect pathologic fractures on the basis of her chronic steroid use. 1. Compression fractures. 2. Anemia. 3. Pneumonia. 4. Acute/chronic hypoxic and hypercapnic respiratory failure. 5. Left ventricular diastolic dysfunction. 6. Hypothyroidism. 7. Obstructive sleep apnea. PLAN: For protein studies for further assessment. SERENA BAUMAN M.D. CHARLES/[id number]
[2018-12-30] MEDS: ALBUTEROL SO4 0.083% IH SOL 2.5 MG/3 ML VIAL.NEB. NEB PRN (16:58)
[2018-12-30] MEDS: ROSUVASTATIN CA 5 MG TABLET (FP) PO SCH (22:04)
[2018-12-30] MEDS: MONTELUKAST NA 10 MG TABLET PO SCH (22:04)
[2018-12-31] MEDS: AZTREONAM 1 GM in DEXTROSE 5%-WATER - 50 ML IVPB SCH ×3 (01:39→17:01)
[2018-12-31] MEDS: LEVOTHYROXINE NA 75 MCG TABLET (FP) PO SCH (07:05)
[2018-12-31] MEDS: metFORMIN HCL 500 MG TABLET (FP) PO SCH (07:05)
[2018-12-31] MEDS: INSULIN SLIDING SCALE (NOVOLOG) 1 VIAL SQ SCH ×4 (07:06→21:38)
[2018-12-31] MEDS: oxyCODONE HCL 5 MG TABLET PO PRN ×3 (07:10→21:32)
[2018-12-31] MEDS: ARFORMOTEROL TARTRATE 15 MCG/2 ML VIAL NEB SCH ×2 (07:50→20:17)
[2018-12-31 08:28] LABS: BASO % 0.1 % (0-2.0); EOS % 0.4 % (0-4.5); HEMATOCRIT 30.7 % (32.4-45.2); HEMOGLOBIN 9.9 GM/dL (10.7-15.3); MCH 28.9 pg (25.7-33.7); MCHC 32.4 g/dl (32.0-36.0); MEAN CELL VOLUME 89.2 fl (80-96); MEAN PLT VOLUME 7.8 fl (7.5-11.1); MONO % 7.6 % (3.8-10.2); NEUT % 83.9 % (42.8-82.8); PLATELET COUNT 398 K/MM3 (134-434); RBC 3.44 M/mm3 (3.60-5.2); RDW 15.2 % (11.6-15.6); WHITE BLOOD COUNT 11.2 K/mm3 (4.0-10.0)
--- NOTE | 2018-12-31 09:03 | PN ---
Progress Note (short form) - Note Progress Note: Neurology Chief Complaint: low back pain History of Present Illness: 58 year old female with PMH advanced severe COPD on 3-4L O2 24/7, NAVDEEP on CPAP at night, anemia, HTN, GERD, HLD, DM, chronic back pain BIBA to ED from [facility] for increasing SOB x1 - 2 weeks associated with dry cough. Chronic CO2 retainer , Prednisone 5 mg, but was given a higher dose of Prednisone x2 days ago, albuterol nebulizer from [facility], without relief of her symptoms. Pt denied fever , chest pain, sputum production, nausea, vomiting. Pt also complained of her chronic back pain, she applied a lidoderm patch, which she stated she believes made her pain worse. She complains of pain in her abdomen R sided coming from her back; worse with moving. 2 weeks ago became weaker and more SOB; did not get OOB in 1-2 weeks so she started to develop sacral decubs. 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 CT abdoment/pelvis with reported compression fractures in T/L spine. Patient getting physical therapy at [facility], discussed with her treatment options including pain mgmt and surgical evaluation. Consult note reviewed, no plan for drainage of hematoma. L spine Ct completed, report reviewed, confirmed compression fractures, comments that it is worse compared to 06/15/18 imaging. Patient uncomfortable this AM. She asked if anything further can be done and she had been told about kyphoplasty, advised her to have conversation with surgeon who would best discuss procedure as well as risk and benefits. MRI recommended by radiologist but patient reports she is not able to tolerated closed MRI. Home Medications - Allergies Allergies/Adverse Reactions: Allergies Allergy/AdvReac Type Severity Reaction Status Date / Time Penicillins Allergy Severe Difficulty Verified 12/25/18 15:20 Breathing Active Medications Acetaminophen (Tylenol -) 650 mg PO Q6H PRN PRN Reason: PAIN LEVEL 1-5 Last Admin: 12/30/18 23:45 Dose: 650 mg Al Hydroxide/Mg Hydroxide (Mylanta Oral Suspension -) 30 ml PO QID PRN PRN Reason: GAS Albuterol Sulfate (Ventolin 0.083% Nebulizer Soln -) 1 amp NEB QID PRN PRN Reason: SHORT OF BREATH/WHEEZING Last Admin: 12/30/18 16:58 Dose: 1 amp Arformoterol Tartrate (Brovana (Restricted To Pulmonology/Resp) -) 1 amp NEB RBID [facility] Last Admin: 12/31/18 07:50 Dose: 1 amp Aspirin (Asa -) 81 mg PO DAILY [facility] Last Admin: 12/30/18 10:47 Dose: 81 mg Escitalopram Oxalate (Lexapro -) 5 mg PO DAILY [facility] Last Admin: 12/30/18 10:47 Dose: 5 mg Heparin Sodium (Porcine) (Heparin -) 5,000 unit SQ BID [facility] Last Admin: 12/30/18 22:02 Dose: 5,000 unit Aztreonam 1 gm/ Dextrose 50 mls @ 100 mls/hr IVPB Q8H-IV [facility]; Protocol Last Admin: 12/31/18 01:39 Dose: 100 mls/hr Vancomycin HCl 1,250 mg/ (Dextrose) 250 mls @ 166.667 mls/hr IVPB DAILY [facility] Last Admin: 12/30/18 11:25 Dose: 166.667 mls/hr Insulin Aspart (Novolog Vial Sliding Scale -) 1 vial SQ ACHS [facility]; Protocol Last Admin: 12/31/18 07:06 Dose: Not Given Lactobacillus Acidophilus (Bacid -) 1 tab PO DAILY [facility] Last Admin: 12/30/18 10:47 Dose: 1 tab Levothyroxine Sodium (Synthroid -) 75 mcg PO DAILY@0700 [facility] Last Admin: 12/31/18 07:05 Dose: 75 mcg Losartan Potassium (Cozaar -) 25 mg PO DAILY [facility] Last Admin: 12/30/18 10:47 Dose: 25 mg Metformin HCl (Glucophage -) 500 mg PO DAILY@0700 [facility] Last Admin: 12/31/18 07:05 Dose: 500 mg Methylprednisolone Sodium Succinate (Solu-Medrol -) 40 mg IVPUSH DAILY [facility] Last Admin: 12/30/18 10:48 Dose: 40 mg Montelukast Sodium (Singulair -) 10 mg PO HS [facility] Last Admin: 12/30/18 22:04 Dose: 10 mg Oxycodone HCl (Roxicodone -) 5 mg PO Q6H PRN PRN Reason: PAIN LEVEL 6-10 Last Admin: 12/31/18 07:10 Dose: 5 mg Pantoprazole Sodium (Protonix -) 20 mg PO DAILY [facility] Last Admin: 12/30/18 10:48 Dose: 20 mg Polyethylene Glycol (Miralax (For Daily Use) -) 17 gm PO DAILY [facility] Last Admin: 12/30/18 10:47 Dose: Not Given Roflumilast (Daliresp -) 500 mcg PO DAILY [facility] Last Admin: 12/30/18 10:47 Dose: 500 mcg Rosuvastatin Calcium (Crestor -) 5 mg PO HS [facility] Last Admin: 12/30/18 22:04 Dose: 5 mg Sodium Chloride ([place] Nasal [place] -) 2 spray NS BID [facility] Last Admin: 12/30/18 22:04 Dose: 2 sprays Tiotropium [place] (Spiriva Respimat) 2 puff IH DAILY [facility] Last Admin: 12/30/18 10:48 Dose: 2 puff Physical Examination Vital Signs: Vital Signs Period Temp Pulse Resp BP Sys/Domínguez Pulse Ox Last 24 Hr 97.4 F-98.5 F 64-95 18-20 104-120/52-70 96-98 Constitutional: Yes: No Distress, Calm Eyes: Yes: Conjunctiva Clear HENT: Yes: Atraumatic Neck: Yes: Supple Cardiovascular: Yes: Regular Rate and Rhythm Respiratory: Yes: Diminished Gastrointestinal: Yes: Soft. No: Distention, Tenderness Renal/: No: CVA Tenderness - Left, CVA Tenderness - Right, Hematuria Musculoskeletal: No: Joint Stiffness, Joint Swelling Extremities: No: Cold, Cool, Cyanosis Edema: No Integumentary: No: Venous Stasis Changes Wound/Incision: Yes: Other (sacral decubs R sided closed, L sided 2 open lesions ) Neurological: Cn intact no facial droop or slurred speech, Lower extr 5-/5, UE 5 /5, sensory reduced to Lt in distal LE, gait deferred CBCD WBC 21.2 K/mm3 (4.0-10.0) H 12/29/18 16:00 RBC 3.69 M/mm3 (3.60-5.2) 12/29/18 16:00 Hgb 10.6 GM/dL (10.7-15.3) L 12/29/18 16:00 Hct 33.4 % (32.4-45.2) 12/29/18 16:00 MCV 90.7 fl (80-96) 12/29/18 16:00 MCHC 31.7 g/dl (32.0-36.0) L 12/29/18 16:00 RDW 15.3 % (11.6-15.6) 12/29/18 16:00 Plt Count 408 K/MM3 (134-434) 12/29/18 16:00 MPV 8.3 fl (7.5-11.1) 12/29/18 16:00 CMP Sodium 139 mmol/L (136-145) 12/29/18 16:00 Potassium 4.2 mmol/L (3.5-5.1) 12/29/18 16:00 Chloride 97 mmol/L (98-107) L 12/29/18 16:00 Carbon Dioxide 37 mmol/L (21-32) H 12/29/18 16:00 Anion Gap 4 MMOL/L (8-16) L 12/29/18 16:00 BUN 15.5 mg/dL (7-18) 12/29/18 16:00 Creatinine 0.5 mg/dL (0.55-1.3) L 12/29/18 16:00 Random Glucose 98 mg/dL (74-106) 12/29/18 16:00 Calcium 8.4 mg/dL (8.5-10.1) L 12/29/18 16:00 Total Bilirubin 0.3 mg/dL (0.2-1) 12/29/18 16:00 AST 15 U/L (15-37) 12/29/18 16:00 ALT 17 U/L (13-61) 12/29/18 16:00 Alkaline Phosphatase 105 U/L (45-117) 12/29/18 16:00 Total Protein 5.3 g/dl (6.4-8.2) L 12/29/18 16:00 Albumin 2.5 g/dl (3.4-5.0) L 12/29/18 16:00 CARDIAC ENZYMES Creatine Kinase 51 U/L (26-192) 12/26/18 06:40 Troponin I < 0.02 ng/ml (0.00-0.05) 12/26/18 06:40 Assessment/Plan 58 year old female with PMH advanced severe COPD on 3-4L O2 19/01, NAVDEEP on CPAP at night, anemia, HTN, GERD, HLD, DM, chronic back pain BIBA to ED from [facility] for increasing SOB x1 - 2 weeks associated with dry cough. Chronic CO2 retainer , Prednisone 5 mg, but was given a higher dose of Prednisone x2 days ago, albuterol nebulizer from [facility], without relief of her symptoms. Pt denied fever , chest pain, sputum production, nausea, vomiting. Pt also complained of her chronic back pain, she applied a lidoderm patch, which she stated she believes made her pain worse. She complains of pain in her abdomen R sided coming from her back; worse with moving. 2 weeks ago became weaker and more SOB; did not get OOB in 1-2 weeks so she started to develop sacral decubs. She had back pain on/off in [place] and she was on oxycodone for awhile; she asked to continue it here ; also on [facility] steriods. CT abdoment/pelvis with reported compression fractures in T/L spine. Patient getting physical therapy at [facility], discussed with her treatment options including pain mgmt and surgical evaluation. Consult note reviewed, no plan for drainage of hematoma. L spine Ct completed, report reviewed, confirmed compression fractures, comments that it is worse compared to 06/15/18 imaging. Patient uncomfortable this AM. She asked if anything further can be done and she had been told about kyphoplasty, advised her to have conversation with surgeon who would best discuss procedure as well as risk and benefits. MRI recommended by radiologist but patient reports she is not able to tolerated closed MRI. Continue optimization of pain symptoms. Heme note reviewed. Physical therapy as tolerated. Fall precautions.
--- NOTE | 2018-12-31 09:05 | PN ---
Progress Note, Physician Chief Complaint: in bed breathing better but has back pain; called IR and NS for further w/u and tx ? kyphoplasty? epidural? d/w pt and she agreed to have any procedure that would help with her pain - Current Medication List Current Medications: Active Medications Acetaminophen (Tylenol -) 650 mg PO Q6H PRN PRN Reason: PAIN LEVEL 1-5 Last Admin: 12/30/18 23:45 Dose: 650 mg Al Hydroxide/Mg Hydroxide (Mylanta Oral Suspension -) 30 ml PO QID PRN PRN Reason: GAS Albuterol Sulfate (Ventolin 0.083% Nebulizer Soln -) 1 amp NEB QID PRN PRN Reason: SHORT OF BREATH/WHEEZING Last Admin: 12/30/18 16:58 Dose: 1 amp Arformoterol Tartrate (Brovana (Restricted To Pulmonology/Resp) -) 1 amp NEB RBID [facility] Last Admin: 12/31/18 07:50 Dose: 1 amp Aspirin (Asa -) 81 mg PO DAILY [facility] Last Admin: 12/30/18 10:47 Dose: 81 mg Escitalopram Oxalate (Lexapro -) 5 mg PO DAILY [facility] Last Admin: 12/30/18 10:47 Dose: 5 mg Heparin Sodium (Porcine) (Heparin -) 5,000 unit SQ BID [facility] Last Admin: 12/30/18 22:02 Dose: 5,000 unit Aztreonam 1 gm/ Dextrose 50 mls @ 100 mls/hr IVPB Q8H-IV [facility]; Protocol Last Admin: 12/31/18 01:39 Dose: 100 mls/hr Vancomycin HCl 1,250 mg/ (Dextrose) 250 mls @ 166.667 mls/hr IVPB DAILY [facility] Last Admin: 12/30/18 11:25 Dose: 166.667 mls/hr Insulin Aspart (Novolog Vial Sliding Scale -) 1 vial SQ ACHS [facility]; Protocol Last Admin: 12/31/18 07:06 Dose: Not Given Lactobacillus Acidophilus (Bacid -) 1 tab PO DAILY [facility] Last Admin: 12/30/18 10:47 Dose: 1 tab Levothyroxine Sodium (Synthroid -) 75 mcg PO DAILY@0700 [facility] Last Admin: 12/31/18 07:05 Dose: 75 mcg Losartan Potassium (Cozaar -) 25 mg PO DAILY [facility] Last Admin: 12/30/18 10:47 Dose: 25 mg Metformin HCl (Glucophage -) 500 mg PO DAILY@0700 [facility] Last Admin: 12/31/18 07:05 Dose: 500 mg Methylprednisolone Sodium Succinate (Solu-Medrol -) 40 mg IVPUSH DAILY [facility] Last Admin: 12/30/18 10:48 Dose: 40 mg Montelukast Sodium (Singulair -) 10 mg PO [facility] Last Admin: 12/30/18 22:04 Dose: 10 mg Oxycodone HCl (Roxicodone -) 5 mg PO Q6H PRN PRN Reason: PAIN LEVEL 6-10 Last Admin: 12/31/18 07:10 Dose: 5 mg Pantoprazole Sodium (Protonix -) 20 mg PO DAILY [facility] Last Admin: 12/30/18 10:48 Dose: 20 mg Polyethylene Glycol (Miralax (For Daily Use) -) 17 gm PO DAILY [facility] Last Admin: 12/30/18 10:47 Dose: Not Given Roflumilast (Daliresp -) 500 mcg PO DAILY [facility] Last Admin: 12/30/18 10:47 Dose: 500 mcg Rosuvastatin Calcium (Crestor -) 5 mg PO [facility] Last Admin: 12/30/18 22:04 Dose: 5 mg Sodium Chloride ([place] Nasal [place] -) 2 spray NS BID [facility] Last Admin: 12/30/18 22:04 Dose: 2 sprays Tiotropium [place] (Spiriva Respimat) 2 puff IH DAILY [facility] Last Admin: 12/30/18 10:48 Dose: 2 puff - Objective Vital Signs: Vital Signs Temperature 97.4 F L 12/31/18 06:00 Pulse Rate 64 12/31/18 06:00 Respiratory Rate 20 12/31/18 06:00 Blood Pressure 120/70 12/31/18 06:00 O2 Sat by Pulse Oximetry (%) 96 12/30/18 21:00 Constitutional: Yes: No Distress, Calm Eyes: Yes: Conjunctiva Clear HENT: Yes: Atraumatic Neck: Yes: Supple Cardiovascular: Yes: Regular Rate and Rhythm Respiratory: Yes: CTA Bilaterally Gastrointestinal: Yes: Soft. No: Tenderness Musculoskeletal: No: Joint Stiffness, Joint Swelling Extremities: No: Cold, Cool, Cyanosis Edema: No Integumentary: Yes: Bruising, Pressure Ulcer Neurological: Yes: WNL, Alert, Oriented ...Motor Strength: WNL Psychiatric: Yes: WNL, Alert, Oriented. No: Agitated, Suicidal Ideation - ....Imaging Other: Report Reviewed Assessment/Plan 58 year old female with PMH advanced severe COPD on 3-4L O2 19/01, NAVDEEP on CPAP at night, anemia, HTN, GERD, HLD, DM, chronic back pain admitted with COPD exac and PNA, back pain OP compression fractures, high WBC, decubs; surgery eval for decubs; turn in bed q1h, OOB to chair with assist; IV ATB per ID; IV steroids tapered to daily; pulm f/u IR and NS eval - kyphoplasty? epidural? stools softeners spep upep negative, neurology f/u for LBP; CT spine noted; pt will no do closed MRI (not even medicated). heme input appreciated; will d.w NS and IR prognosis guarded d/w pt and staff
[2018-12-31 09:20] LABS: RETICULOCYTES 2.2 % (0.5-1.5)
[2018-12-31 09:23] LABS: ALBUMIN 2.4 g/dl (3.4-5.0); ALK PHOS 102 U/L (45-117); ANION GAP 3 MMOL/L (8-16); BILIRUBIN,TOTAL 0.3 mg/dL (0.2-1); BLOOD UREA NITROGEN 17.5 mg/dL (7-18); CALCIUM 8.5 mg/dL (8.5-10.1); CHLORIDE 96 mmol/L (98-107); CO2 40 mmol/L (21-32); CREATININE 0.4 mg/dL (0.55-1.3); GLUCOSE,RANDOM 86 mg/dL (74-106); POTASSIUM 3.5 mmol/L (3.5-5.1); SGOT/AST 11 U/L (15-37); SGPT/ALT 15 U/L (13-61); SODIUM 139 mmol/L (136-145); TOT PROT 5.2 g/dl (6.4-8.2)
[2018-12-31 10:15] LABS: LDH 249 U/L (84-246)
--- NOTE | 2018-12-31 10:54 | PN ---
Progress Note (short form) - Note Progress Note: continued back pain +BM Vital Signs Period Temp Pulse Resp BP Sys/Domínguez Pulse Ox Last 24 Hr 97.4 F-98.5 F 64-95 18-20 104-120/52-70 96-98 cor-rrr lungs decreased bs at baes abd soft,nt ext left buttock wound, less drainage, less erythema +induration CBC, BMP 12/31/18 07:52 12/31/18 07:52 Microbiology 12/26/18 15:36 Blood - Peripheral Venous Blood Culture - Preliminary NO GROWTH OBTAINED AFTER 96 HOURS, INCUBATION TO CONTINUE FOR 1 DAYS. 12/26/18 15:45 Blood - Peripheral Venous Blood Culture - Preliminary NO GROWTH OBTAINED AFTER 96 HOURS, INCUBATION TO CONTINUE FOR 1 DAYS. 12/26/18 14:00 Buttock - Right Gram Stain - Final 12/26/18 14:00 Buttock - Right Wound Culture - Final Mr Alvarado Aureus Current Medications Acetaminophen (Tylenol -) 650 mg PO Q6H PRN PRN Reason: PAIN LEVEL 1-5 Last Admin: 12/30/18 23:45 Dose: 650 mg Al Hydroxide/Mg Hydroxide (Mylanta Oral Suspension -) 30 ml PO QID PRN PRN Reason: GAS Albuterol Sulfate (Ventolin 0.083% Nebulizer Soln -) 1 amp NEB QID PRN PRN Reason: SHORT OF BREATH/WHEEZING Last Admin: 12/30/18 16:58 Dose: 1 amp Arformoterol Tartrate (Brovana (Restricted To Pulmonology/Resp) -) 1 amp NEB RBID [facility] Last Admin: 12/31/18 07:50 Dose: 1 amp Aspirin (Asa -) 81 mg PO DAILY [facility] Last Admin: 12/30/18 10:47 Dose: 81 mg Escitalopram Oxalate (Lexapro -) 5 mg PO DAILY [facility] Last Admin: 12/30/18 10:47 Dose: 5 mg Heparin Sodium (Porcine) (Heparin -) 5,000 unit SQ BID [facility] Last Admin: 12/30/18 22:02 Dose: 5,000 unit Aztreonam 1 gm/ Dextrose 50 mls @ 100 mls/hr IVPB Q8H-IV [facility]; Protocol Last Admin: 12/31/18 01:39 Dose: 100 mls/hr Vancomycin HCl 1,250 mg/ (Dextrose) 250 mls @ 166.667 mls/hr IVPB DAILY [facility] Last Admin: 12/30/18 11:25 Dose: 166.667 mls/hr Insulin Aspart (Novolog Vial Sliding Scale -) 1 vial SQ ACHS [facility]; Protocol Last Admin: 12/31/18 07:06 Dose: Not Given Lactobacillus Acidophilus (Bacid -) 1 tab PO DAILY [facility] Last Admin: 12/30/18 10:47 Dose: 1 tab Levothyroxine Sodium (Synthroid -) 75 mcg PO DAILY@0700 [facility] Last Admin: 12/31/18 07:05 Dose: 75 mcg Losartan Potassium (Cozaar -) 25 mg PO DAILY [facility] Last Admin: 12/30/18 10:47 Dose: 25 mg Metformin HCl (Glucophage -) 500 mg PO DAILY@0700 [facility] Last Admin: 12/31/18 07:05 Dose: 500 mg Methylprednisolone Sodium Succinate (Solu-Medrol -) 40 mg IVPUSH DAILY [facility] Last Admin: 12/30/18 10:48 Dose: 40 mg Montelukast Sodium (Singulair -) 10 mg PO [facility] Last Admin: 12/30/18 22:04 Dose: 10 mg Oxycodone HCl (Roxicodone -) 5 mg PO Q6H PRN PRN Reason: PAIN LEVEL 6-10 Last Admin: 12/31/18 07:10 Dose: 5 mg Pantoprazole Sodium (Protonix -) 20 mg PO DAILY [facility] Last Admin: 12/30/18 10:48 Dose: 20 mg Polyethylene Glycol (Miralax (For Daily Use) -) 17 gm PO DAILY [facility] Last Admin: 12/30/18 10:47 Dose: Not Given Roflumilast (Daliresp -) 500 mcg PO DAILY [facility] Last Admin: 12/30/18 10:47 Dose: 500 mcg Rosuvastatin Calcium (Crestor -) 5 mg PO HS [facility] Last Admin: 12/30/18 22:04 Dose: 5 mg Sodium Chloride ([place] Nasal [place] -) 2 spray NS BID [facility] Last Admin: 12/30/18 22:04 Dose: 2 sprays Tiotropium [place] (Spiriva Respimat) 2 puff IH DAILY [facility] Last Admin: 12/30/18 10:48 Dose: 2 puff a/p RLL consolidation- she may be having some referred pain from this buttock abscess- MRSA end stage COPD vertebral comp fx t/L spine penicillin allergy management of buttock ulcer per surgery mrsa contact isolation consider pain management evaluation vanco dose adjusted repeat trough before next dose vanco/azactam day #6 Problem List - Problems (1) Leukocytosis Code(s): D72.829 - ELEVATED WHITE BLOOD CELL COUNT, UNSPECIFIED (2) Abdominal pain Code(s): R10.9 - UNSPECIFIED ABDOMINAL PAIN (3) Abscess Code(s): L02.91 - CUTANEOUS ABSCESS, UNSPECIFIED (4) Chronic respiratory failure Code(s): J96.10 - CHRONIC RESPIRATORY FAILURE, UNSP W HYPOXIA OR HYPERCAPNIA (5) Penicillin allergy Code(s): Z88.0 - ALLERGY STATUS TO PENICILLIN
--- NOTE | 2018-12-31 11:02 | PN ---
Progress Note (short form) - Note Progress Note: PULMONARY Denies shortness of breath, cough or wheezing. Has severe back pain Gen: Cushinoid Heart: RRR Lung: distant breath sounds, no wheezes Abd: softly distended Ext: no edema Labs/meds/notes/images reviewed A/P Acute on Chronic Hypoxic and Hypercapneic Respiratory Failure Pneumonia Acute COPD Exacerbation LV Diastolic Dysfunction Hypothyroidism NAVDEEP Thoracic/Lumbar Compression Fractures Hyperlipidemia - pain control - pain management evaluation, ?kyphoplasty - continue antibiotics - medrol taper - inhaled bronchodilators - O2 to keep SpO2 >90% - BiPAP as needed - DVT prophylaxis Parul ALEGRE MD
[2018-12-31] MEDS ORDERED: DEXTROSE 5%-WATER - 50 ML IVPB ONE ×3 (11:13→22:48)
[2018-12-31] MEDS ORDERED: AZTREONAM 1 GM VIAL (RESTRICTED TO ID) ONE ×3 (11:13→22:47)
[2018-12-31] MEDS ORDERED: PT OWN MED DRAWER 7, Y5N ONE ×3 (11:14→17:54)
[2018-12-31] MEDS: VANCOMYCIN HCL 1,250 MG in DEXTROSE 5%-WATER - 250 ML IVPB SCH (11:20)
[2018-12-31] MEDS: HEPARIN NA (PORCINE) 5,000 UNITS/ML 1ML VIAL SQ SCH ×2 (11:21→21:47)
[2018-12-31] MEDS: ESCITALOPRAM OXALATE 10 MG TABLET (FP) PO SCH (11:22)
[2018-12-31] MEDS: LACTOBACILLUS ACIDOPHILUS 1 TABLET PO SCH (11:26)
[2018-12-31] MEDS: PANTOPRAZOLE 20 MG TABLET (FP) PO SCH (11:27)
[2018-12-31] MEDS: ASPIRIN 81 MG CHEWABLE TABLETS PO SCH (11:27)
[2018-12-31] MEDS: LOSARTAN POTASSIUM 25 MG TABLET PO SCH (11:27)
[2018-12-31] MEDS: methylPREDNISolone NA SUCC 40 MG/1 ML VIAL IVPUSH SCH (11:27)
[2018-12-31] MEDS: POLYETHYLENE GLYCOL 3350 119 GM BTL PO SCH (11:33)
[2018-12-31] MEDS: TIOTROPIUM BROMIDE 2.5 MCG (SPIRIVA) RESPIMAT INHALER IH SCH (11:33)
[2018-12-31] MEDS: SODIUM CHLORIDE NASAL SPRAY 44 ML BOTTLE NS SCH ×2 (11:33→21:32)
[2018-12-31 12:02] LABS: ANISOCYTOSIS 2+; MACROCYTOSIS 0; PLATELET ESTIMATE NORMAL; TEAR DROP CELLS 1+
[2018-12-31] MEDS: ALBUTEROL SO4 0.083% IH SOL 2.5 MG/3 ML VIAL.NEB. NEB PRN (13:50)
[2018-12-31] MEDS: ROFLUMILAST 500 MCG TABLET PO SCH (16:45)
[2018-12-31] MEDS: MONTELUKAST NA 10 MG TABLET PO SCH (21:47)
[2018-12-31] MEDS: ROSUVASTATIN CA 5 MG TABLET (FP) PO SCH (21:47)
[2019-01-01] MEDS: AZTREONAM 1 GM in DEXTROSE 5%-WATER - 50 ML IVPB SCH ×3 (01:26→17:08)
[2019-01-01] MEDS: ACETAMINOPHEN 325 MG TABLET (FP) PO PRN ×4 (01:56→22:36)
[2019-01-01] MEDS: oxyCODONE HCL 5 MG TABLET PO PRN ×4 (02:54→22:30)
[2019-01-01 04:08] LABS: SERUM IRON SATURATION 41 % (15-55); TOTAL IRON BINDING CAPACITY 215 ug/dL (250-450)
--- NOTE | 2019-01-01 04:46 | PN ---
Progress Note, Physician Chief Complaint: in bed awake alert NAD VSS intermittent back pain with moving (pt seen around 6 am) dw pt I called IR - will d/w dr Quintanilla if kyphoplasty possible, if not will d/ w NS epidural inj? - Current Medication List Current Medications: Active Medications Acetaminophen (Tylenol -) 650 mg PO Q6H PRN PRN Reason: PAIN LEVEL 1-5 Last Admin: 01/01/19 01:56 Dose: 650 mg Al Hydroxide/Mg Hydroxide (Mylanta Oral Suspension -) 30 ml PO QID PRN PRN Reason: GAS Albuterol Sulfate (Ventolin 0.083% Nebulizer Soln -) 1 amp NEB QID PRN PRN Reason: SHORT OF BREATH/WHEEZING Last Admin: 12/31/18 13:50 Dose: 1 amp Arformoterol Tartrate (Brovana (Restricted To Pulmonology/Resp) -) 1 amp NEB RBID [facility] Last Admin: 12/31/18 20:17 Dose: 1 amp Aspirin (Asa -) 81 mg PO DAILY [facility] Last Admin: 12/31/18 11:27 Dose: 81 mg Escitalopram Oxalate (Lexapro -) 5 mg PO DAILY [facility] Last Admin: 12/31/18 11:22 Dose: 5 mg Heparin Sodium (Porcine) (Heparin -) 5,000 unit SQ BID [facility] Last Admin: 12/31/18 21:47 Dose: 5,000 unit Aztreonam 1 gm/ Dextrose 50 mls @ 100 mls/hr IVPB Q8H-IV [facility]; Protocol Last Admin: 01/01/19 01:26 Dose: 100 mls/hr Vancomycin HCl 1,250 mg/ (Dextrose) 250 mls @ 166.667 mls/hr IVPB DAILY [facility] Last Admin: 12/31/18 11:20 Dose: 166.667 mls/hr Insulin Aspart (Novolog Vial Sliding Scale -) 1 vial SQ ACHS [facility]; Protocol Last Admin: 12/31/18 21:38 Dose: 2 units Lactobacillus Acidophilus (Bacid -) 1 tab PO DAILY [facility] Last Admin: 12/31/18 11:26 Dose: 1 tab Levothyroxine Sodium (Synthroid -) 75 mcg PO DAILY@0700 [facility] Last Admin: 12/31/18 07:05 Dose: 75 mcg Losartan Potassium (Cozaar -) 25 mg PO DAILY [facility] Last Admin: 12/31/18 11:27 Dose: 25 mg Metformin HCl (Glucophage -) 500 mg PO DAILY@0700 [facility] Last Admin: 12/31/18 07:05 Dose: 500 mg Methylprednisolone Sodium Succinate (Solu-Medrol -) 40 mg IVPUSH DAILY [facility] Last Admin: 12/31/18 11:27 Dose: 40 mg Montelukast Sodium (Singulair -) 10 mg PO HS [facility] Last Admin: 12/31/18 21:47 Dose: 10 mg Oxycodone HCl (Roxicodone -) 5 mg PO Q6H PRN PRN Reason: PAIN LEVEL 6-10 Last Admin: 01/01/19 02:54 Dose: 5 mg Pantoprazole Sodium (Protonix -) 20 mg PO DAILY [facility] Last Admin: 12/31/18 11:27 Dose: 20 mg Polyethylene Glycol (Miralax (For Daily Use) -) 17 gm PO DAILY [facility] Last Admin: 12/31/18 11:33 Dose: Not Given Roflumilast (Daliresp -) 500 mcg PO DAILY [facility] Last Admin: 12/31/18 16:45 Dose: 500 mcg Rosuvastatin Calcium (Crestor -) 5 mg PO [facility] Last Admin: 12/31/18 21:47 Dose: 5 mg Sodium Chloride ([place] Nasal [place] -) 2 spray NS BID [facility] Last Admin: 12/31/18 21:32 Dose: 2 sprays Tiotropium [place] (Spiriva Respimat) 2 puff IH DAILY [facility] Last Admin: 12/31/18 11:33 Dose: 2 puff - Objective Vital Signs: Vital Signs Temperature 98 F 12/31/18 21:28 Pulse Rate 86 12/31/18 21:28 Respiratory Rate 18 12/31/18 21:28 Blood Pressure 130/64 01/01/19 01:00 O2 Sat by Pulse Oximetry (%) 98 12/31/18 09:00 Constitutional: Yes: No Distress, Calm Eyes: Yes: Conjunctiva Clear HENT: Yes: Atraumatic Neck: Yes: Supple Cardiovascular: Yes: Regular Rate and Rhythm Respiratory: Yes: CTA Bilaterally Gastrointestinal: Yes: Soft. No: Tenderness Genitourinary: No: CVA Tenderness - Left, CVA Tenderness - Right Musculoskeletal: No: Joint Stiffness, Joint Swelling Extremities: No: Calf Tenderness, Cold, Cool, Cyanosis Edema: No Integumentary: Yes: Pressure Ulcer. No: Rash, Venous Stasis Changes Neurological: Yes: WNL, Alert, Oriented ...Motor Strength: WNL Psychiatric: Yes: WNL, Alert, Oriented. No: Agitated, Suicidal Ideation Labs: CBC, BMP 12/31/18 07:52 12/31/18 07:52 - ....Imaging Other: Report Reviewed Assessment/Plan 58 year old female with PMH advanced severe COPD on 3-4L O2 19/01, NAVDEEP on CPAP at night, anemia, HTN, GERD, HLD, DM, chronic back pain admitted with COPD exac and PNA, back pain OP compression fractures, high WBC, decubs; surgery eval for decubs; turn in bed q1h, OOB to chair with assist; IV ATB per ID; IV steroids tapered to iv daily; pulm f/u IR and NS eval - kyphoplasty? epidural? for further vertebral compression fractures management and back pain; stools softeners prn neurology f/u for LBP prognosis guarded d/w pt and staff; pt agreed with plan
[2019-01-01] MEDS: INSULIN SLIDING SCALE (NOVOLOG) 1 VIAL SQ SCH ×4 (07:01→22:37)
[2019-01-01] MEDS: LEVOTHYROXINE NA 75 MCG TABLET (FP) PO SCH (07:01)
[2019-01-01] MEDS: metFORMIN HCL 500 MG TABLET (FP) PO SCH (07:01)
[2019-01-01] MEDS: ARFORMOTEROL TARTRATE 15 MCG/2 ML VIAL NEB SCH ×2 (07:48→20:09)
[2019-01-01 08:16] LABS: BASO % 0.3 % (0-2.0); EOS % 0.3 % (0-4.5); HEMATOCRIT 30.7 % (32.4-45.2); HEMOGLOBIN 9.9 GM/dL (10.7-15.3); MCH 28.9 pg (25.7-33.7); MCHC 32.3 g/dl (32.0-36.0); MEAN CELL VOLUME 89.7 fl (80-96); MEAN PLT VOLUME 7.9 fl (7.5-11.1); MONO % 5.3 % (3.8-10.2); NEUT % 87.1 % (42.8-82.8); RBC 3.43 M/mm3 (3.60-5.2); RDW 15.6 % (11.6-15.6); WHITE BLOOD COUNT 13.6 K/mm3 (4.0-10.0)
[2019-01-01 08:54] LABS: ALBUMIN 2.4 g/dl (3.4-5.0); BILIRUBIN,TOTAL 0.4 mg/dL (0.2-1); BLOOD UREA NITROGEN 17.8 mg/dL (7-18); CALCIUM 8.4 mg/dL (8.5-10.1); CREATININE 0.4 mg/dL (0.55-1.3); POTASSIUM 3.9 mmol/L (3.5-5.1); TOT PROT 5.1 g/dl (6.4-8.2)
[2019-01-01 09:22] LABS: PLATELET COUNT 410 K/MM3 (134-434)
--- NOTE | 2019-01-01 09:37 | PN ---
Progress Note (short form) - Note Progress Note: PULMONARY Denies shortness of breath, cough or wheezing. Has severe back pain Gen: Cushinoid Heart: RRR Lung: distant breath sounds, diminished bibasilar Abd: softly distended Ext: no edema Labs/meds/notes/images reviewed A/P Acute on Chronic Hypoxic and Hypercapneic Respiratory Failure Pneumonia/effusions Acute COPD Exacerbation LV Diastolic Dysfunction Hypothyroidism NAVDEEP Thoracic/Lumbar Compression Fractures Hyperlipidemia - pain control - pain management evaluation, ?kyphoplasty - continue antibiotics - medrol taper - inhaled bronchodilators - O2 to keep SpO2 >90% - BiPAP as needed - DVT prophylaxis Parul ALEGRE MD
[2019-01-01] MEDS ORDERED: DEXTROSE 5%-WATER - 50 ML IVPB ONE ×2 (09:45→17:07)
[2019-01-01] MEDS ORDERED: AZTREONAM 1 GM VIAL (RESTRICTED TO ID) ONE ×2 (09:45→17:07)
[2019-01-01] MEDS ORDERED: PT OWN MED DRAWER 7, Y5N ONE (09:46)
[2019-01-01] MEDS: ESCITALOPRAM OXALATE 10 MG TABLET (FP) PO SCH (09:55)
[2019-01-01] MEDS: HEPARIN NA (PORCINE) 5,000 UNITS/ML 1ML VIAL SQ SCH ×2 (09:56→22:30)
[2019-01-01] MEDS: methylPREDNISolone NA SUCC 40 MG/1 ML VIAL IVPUSH SCH (09:57)
[2019-01-01] MEDS: LACTOBACILLUS ACIDOPHILUS 1 TABLET PO SCH (09:58)
[2019-01-01] MEDS: PANTOPRAZOLE 20 MG TABLET (FP) PO SCH (09:58)
[2019-01-01] MEDS: LOSARTAN POTASSIUM 25 MG TABLET PO SCH (09:58)
[2019-01-01] MEDS: ASPIRIN 81 MG CHEWABLE TABLETS PO SCH (09:58)
[2019-01-01] MEDS: TIOTROPIUM BROMIDE 2.5 MCG (SPIRIVA) RESPIMAT INHALER IH SCH (09:59)
[2019-01-01] MEDS: SODIUM CHLORIDE NASAL SPRAY 44 ML BOTTLE NS SCH ×2 (09:59→22:33)
[2019-01-01] MEDS: ROFLUMILAST 500 MCG TABLET PO SCH (10:00)
[2019-01-01] MEDS: VANCOMYCIN HCL 1,250 MG in DEXTROSE 5%-WATER - 250 ML IVPB SCH (10:04)
[2019-01-01] MEDS: POLYETHYLENE GLYCOL 3350 119 GM BTL PO SCH (12:08)
[2019-01-01 12:45] LABS: ANISOCYTOSIS 2+; MACROCYTOSIS 0; OVALOCYTE 1+; PLATELET ESTIMATE NORMAL; TEAR DROP CELLS 1+
--- NOTE | 2019-01-01 14:06 | PN ---
Progress Note (short form) - Note Progress Note: NEUROSURGERY CONSULT DICTATED Chart reviewed Pt examined CT scan reviewed h/o advanced COPD, obesity with sleep apnea on CPAP at night, anemia, HTN, GERD , DM,c/o increasing mid back pain x 1- 2 weeks. She had fallen at home a few months ago. Fell again when hospitalized in bathroom. Was at [facility] for increasing SOB x1 - 2 weeks associated with dry cough. Mid back pain also worsened. Legs without numbness but + weakness secondary to immobility and back pain. NO B/B incontinence. Was able to ambulate with walker/assistance at [place]. Had back brace which did not help. PE: AF, VSS HEENT- NC/At; Neckl- supple; Cor- RR; Lungs- no wheezing; Back- tender at TL junction midline, buttock wound; Ext- ecchymosis and mild edema B UE/LE CN- intact; Motor- 4/5 B UE/LE, back pain limited; Sensation- intact LT, vibration; DTR- 1+ throughout; Cerebellar- intact WBC 13.6, Hgb 9.9 R buttocks wound- MRSA CT LS spine (05/2018)- osteopenia, mild spondylosis, no fx, no dislocation CT (12/2018)- osteoporotic compression fx of T11, T12, L1, L3, L4, L5, mild sup L3 endplate retropulsion; no marked stenosis Multifocal osteoporotic compression (prior smoker, steroid meds) Given numerous fx vertebroplasty would not be optimal Any invasive procedures including injections could potentially seed ongoing MRSA infection in the spine at this time Could consider B L11-T12 and T12-L1 facet blocks when infection is cleared Could consider TLSO bracing but given buttock wounds could be problematic Cont iv abx per ID for R buttock wound infection alf medical tx for osteoporosis recommended, Ca/Vit D3/bisphosphonate Lidoderm patches, neurontin The above d/w pt
[2019-01-01] MEDS: GABAPENTIN 300 MG CAPSULE (FP) PO SCH ×2 (16:03→22:32)
--- NOTE | 2019-01-01 16:43 | CONS ---
DATE OF CONSULTATION: 01/01/2019 CHIEF COMPLAINT: Severe back pain with osteoporotic compression fracture. HISTORY OF PRESENT ILLNESS: Patient is a 58-year-old right handed female with history of diabetes, obesity, advanced COPD on chronic oxygen treatment, sleep apnea, anemia, hypertension, gastroesophageal reflux disease, diastolic dysfunction and diabetes, who complains of increasing lower back pain for the past couple of weeks prior to admission. She had fallen at home a few months back, and at that time was not found to have any fractures by report. She was subsequently hospitalized with respiratory difficulty, and again fell in the bathroom. She was sent to the nursing facility for rehabilitation. She was eventually able to ambulate with the walker with some assistance. She developed further increasing dyspnea over the last couple of weeks, and stumbled while she ambulated. She denies any numbness, but had some subjective weakness because of her immobility and back pain. She denies bowel or bladder incontinence. She denied fever or chills. She has a dry cough. She has had it for several weeks. She has not tried pain management injections in the past. On this admission, she was found to have a right buttock wound, which is being treated by Infectious Disease with multiple antibiotics. MRSA was grown from the cultures of the wound. PAST MEDICAL HISTORY: Significant for diabetes, obesity, sleep apnea, COPD, hypertension, diastolic dysfunction, gastroesophageal reflux disease, anemia. MEDICATIONS: Current medications include Solu-Medrol, Tylenol, Cozaar, Mylanta, aztreonam, vancomycin, subcutaneous heparin, Lexapro, Bacid, Spiriva, Ventolin, metformin, ethylene glycol, nasal sprays, Brovana, insulin coverage, Singulair, baby aspirin, oxycodone, Protonix, Daliresp, Synthroid. ALLERGIES: Noted allergies to PENICILLIN. SOCIAL HISTORY: She used to be an ex-smoker. She drinks alcohol socially. She was in the intermediate prior to coming back to the hospital. She is retired. REVIEW OF SYSTEMS: Was otherwise negative for major constitutional, head and neck, cardiovascular, pulmonary, gastrointestinal, genitourinary, endocrinological, neurologic, psychological problems, except for hypothyroidism and the above. There is no other recent infection other than the right buttock infection diagnosed. PHYSICAL EXAMINATION: Vitals: On physical examination, temperature was 98.3, blood pressure is 101/ 56 with pulse rate 84, oxygen saturation is 99% on 3 L. HEENT: Examination shows her to be normocephalic, atraumatic, anicteric. Neck: Supple. There are no carotid bruits. COR: Examination demonstrated regular rhythm. Lungs: Clear bilaterally. Abdomen: Obese, but benign. Extremities: Show multiple ecchymosis. Distal pulses are difficult to fully appreciate because of slight edema. There is no other sign of DVT. Neurologic: She was awake, alert, and oriented x3. Cranial nerve examination intact 2 through 12. Motor examination shows 4/5 strength in the bilateral upper and lower extremities with no fasciculation or atrophy. Sensory examination was intact to light touch in the upper and lower extremities. She has generally intact vibratory sensation. Deep tendon reflexes are 1+ throughout. There was no pathological long tract sign. Exam of her back shows tenderness in the midline slightly bilaterally at the thoracolumbar junction. There is mild lower back tenderness, but most of the pain is at the thoracolumbar junction. There is mild lower back tenderness, but most of the pain is at the thoracolumbar junction. Cerebellar examination demonstrating normal coordination without tremor. Skin: The right buttock wound dressing is noted. Laboratory examination shows a white blood cell count 13.6, previously it was up to 21.2, hemoglobin was 9.9 and platelet count is 410,000. Vancomycin trough level was 14.3. Serum sodium is 141 and potassium is 3.9. BUN is 17, creatinine 0.4. LFTs are normal. Albumin is 2.4. CT scan of the lumbar spine from May 2018 was reviewed and there was no evidence of acute fracture or dislocation. There was no canal stenosis. There was minimal spondylosis. There was significant osteopenia noted. Repeat CT scan from a couple of days ago demonstrated osteoporotic compression fracture involving at least T11, T12, L1, L3, L4, and L5 vertebral bodies. There might be a slight superior endplate retropulsion at the L3 level; however, there is once again no marked canal stenosis. There is generalized osteopenia as previously, as well as mild facet spondylosis. Blood culture was negative x2. Right buttock wound culture shows MRSA. IMPRESSION: 1. Multifocal thoracolumbar osteoporotic compression fracture with no significant canal compromise. 2. Diabetes with obesity. 3. Chronic obstructive pulmonary disease on chronic oxygen treatment and intermittent steroid treatment. 4. Hypertension/diastolic dysfunction. 5. Hypothyroidism. 6. Sleep apnea. 7. Gastroesophageal reflux disease. RECOMMENDATIONS: Patient presented with increasing nonproductive cough and increasing midback pain. She had sustained a fall last May, and was not found to have any fractures at the time. She had stumbled while in the intermediate prior to her planned discharge there. She also had some increasing cough which may have also contributed to the newly found osteoporotic compression fractures at multiple levels. There are fractures at least at T11, T12, L1, L3, L4, and L5. Given the multifocal nature of the osteoporotic compression fractures, vertebroplasty or kyphoplasty may not be optimal. Adjacent level collapse after treatment is highly probable. Unfortunately, she has a right buttock MRSA infection, any invasive procedures including vertebroplasty or injections could cause possible seeding in the spine and I do not highly recommend that. A trial of Lidoderm patches and Neurontin should be considered. The patient had previously had a brace, but is unlikely to have covered the lower thoracic spine as well. The patient, because of her COPD , is not really willing to try a very constricted brace such as a TLSO brace. Therefore, her current treatment options are limited in the face of her infection and COPD. The above was discussed with patient at bedside in detail. The pros and cons of treatment approaches were discussed and all questions were answered. BAKARI ZEE M.D. [id number] MTDD
[2019-01-01 17:08] LABS: FREE KAPPA,SERUM 8.1 mg/L (3.3-19.4)
[2019-01-01] MEDS: MONTELUKAST NA 10 MG TABLET PO SCH (22:30)
[2019-01-01] MEDS: ROSUVASTATIN CA 5 MG TABLET (FP) PO SCH (22:32)
[2019-01-02] MEDS ORDERED: AZTREONAM 1 GM VIAL (RESTRICTED TO ID) ONE ×3 (02:39→18:56)
[2019-01-02] MEDS ORDERED: DEXTROSE 5%-WATER - 50 ML IVPB ONE ×3 (02:39→18:56)
[2019-01-02] MEDS: AZTREONAM 1 GM in DEXTROSE 5%-WATER - 50 ML IVPB SCH ×3 (02:42→18:58)
[2019-01-02] MEDS: LEVOTHYROXINE NA 75 MCG TABLET (FP) PO SCH (06:14)
[2019-01-02] MEDS: GABAPENTIN 300 MG CAPSULE (FP) PO SCH ×3 (06:14→22:55)
[2019-01-02] MEDS: metFORMIN HCL 500 MG TABLET (FP) PO SCH (06:28)
[2019-01-02] MEDS: INSULIN SLIDING SCALE (NOVOLOG) 1 VIAL SQ SCH ×4 (06:29→22:57)
[2019-01-02] MEDS ORDERED: DEXTROSE 5%-NORMAL SALINE 1,000 ML IV SCH (07:00)
[2019-01-02 07:55] LABS: BASO % 0.2 % (0-2.0); EOS % 0.2 % (0-4.5); HEMATOCRIT 36.5 % (32.4-45.2); HEMOGLOBIN 11.7 GM/dL (10.7-15.3); LYMPH % 7.5 % (8-40); MCH 29.1 pg (25.7-33.7); MCHC 31.9 g/dl (32.0-36.0); MEAN CELL VOLUME 91.4 fl (80-96); MEAN PLT VOLUME 8.2 fl (7.5-11.1); MONO % 6.4 % (3.8-10.2); NEUT % 85.7 % (42.8-82.8); PLATELET COUNT 418 K/MM3 (134-434); RDW 15.6 % (11.6-15.6); WHITE BLOOD COUNT 13.2 K/mm3 (4.0-10.0)
[2019-01-02] MEDS: ARFORMOTEROL TARTRATE 15 MCG/2 ML VIAL NEB SCH ×2 (07:59→19:45)
[2019-01-02 08:02] LABS: ALBUMIN 2.8 g/dl (3.4-5.0); BILIRUBIN,TOTAL 0.4 mg/dL (0.2-1); BLOOD UREA NITROGEN 16.8 mg/dL (7-18); CALCIUM 8.8 mg/dL (8.5-10.1); CREATININE 0.4 mg/dL (0.55-1.3); POTASSIUM 3.3 mmol/L (3.5-5.1)
[2019-01-02 08:08] LABS: INR 0.92 (0.83-1.09); PROTHROMBIN TIME (PATIENT) 10.8 SEC (9.7-13.0)
[2019-01-02] MEDS ORDERED: PT OWN MED DRAWER 7, Y5N ONE (09:06)
[2019-01-02] MEDS: LIDOCAINE 5% TOPICAL PATCH TP SCH (09:20)
[2019-01-02] MEDS: ESCITALOPRAM OXALATE 10 MG TABLET (FP) PO SCH (09:23)
[2019-01-02] MEDS: ACETAMINOPHEN 325 MG TABLET (FP) PO PRN ×2 (09:24→22:54)
[2019-01-02] MEDS: oxyCODONE HCL 5 MG TABLET PO PRN ×2 (09:24→22:55)
[2019-01-02] MEDS: CHOLECALCIFEROL (VIT D3) 1,000 UNIT (25 MCG) TABLET PO SCH (09:24)
[2019-01-02] MEDS: LACTOBACILLUS ACIDOPHILUS 1 TABLET PO SCH (09:24)
[2019-01-02] MEDS: ASPIRIN 81 MG CHEWABLE TABLETS PO SCH (09:25)
[2019-01-02] MEDS: POLYETHYLENE GLYCOL 3350 119 GM BTL PO SCH (09:26)
[2019-01-02] MEDS: HEPARIN NA (PORCINE) 5,000 UNITS/ML 1ML VIAL SQ SCH ×2 (09:26→22:56)
[2019-01-02] MEDS: CALCIUM 500MG/VIT-D 200 UNITS COMBO TABLET (FP) PO SCH (09:26)
[2019-01-02] MEDS: SODIUM CHLORIDE NASAL SPRAY 44 ML BOTTLE NS SCH ×4 (09:26→22:58)
[2019-01-02] MEDS: ROFLUMILAST 500 MCG TABLET PO SCH (09:26)
[2019-01-02] MEDS: PANTOPRAZOLE 20 MG TABLET (FP) PO SCH (09:26)
[2019-01-02] MEDS: methylPREDNISolone NA SUCC 40 MG/1 ML VIAL IVPUSH SCH (09:27)
[2019-01-02] MEDS: TIOTROPIUM BROMIDE 2.5 MCG (SPIRIVA) RESPIMAT INHALER IH SCH (09:27)
[2019-01-02] MEDS: LOSARTAN POTASSIUM 25 MG TABLET PO SCH (09:59)
--- NOTE | 2019-01-02 10:55 | PN ---
Progress Note (short form) - Note Progress Note: PULMONARY Denies shortness of breath, cough or wheezing. Has severe back pain Gen: Cushinoid Heart: RRR Lung: distant breath sounds, diminished bibasilar Abd: softly distended Ext: no edema Labs/meds/notes/images reviewed Neuro surg eval appreciated A/P Acute on Chronic Hypoxic and Hypercapneic Respiratory Failure Pneumonia/effusions Acute COPD Exacerbation LV Diastolic Dysfunction Hypothyroidism NAVDEEP Thoracic/Lumbar Compression Fractures Hyperlipidemia - pain control - pain management evaluation - continue antibiotics - medrol taper - inhaled bronchodilators - O2 to keep SpO2 >90% - BiPAP as needed - DVT prophylaxis Parul ALEGRE MD
[2019-01-02 11:34] LABS: ANISOCYTOSIS 2+; MACROCYTOSIS 0; OVALOCYTE 1+; PLATELET ESTIMATE NORMAL; TEAR DROP CELLS 1+
--- NOTE | 2019-01-02 12:14 | PN ---
Progress Note (short form) - Note Progress Note: NEUROSURGERY Mostly mid back pain radiating to ribs Pain noticeably better today, however PE: AF, VSS HEENT- NC/At; Neckl- supple; Cor- RR; Lungs- no wheezing; Back- tender at TL junction midline, buttock wound; Ext- ecchymosis and mild edema B UE/LE CN- intact; Motor- 4/5 B UE/LE, back pain limited; Sensation- intact LT, vibration; DTR- 1+ throughout; Cerebellar- intact R buttocks wound- MRSA CT LS spine (05/2018)- osteopenia, mild spondylosis, no fx, no dislocation CT (12/2018)- osteoporotic compression fx of T11, T12, L1, L3, L4, L5, mild sup L3 endplate retropulsion; no significant stenosis Multifocal osteoporotic compression (prior smoker, steroid meds) Given numerous fx vertebroplasty would not be optimal Any invasive procedures including injections could potentially seed ongoing MRSA infection in the spine at this time Could consider B L11-T12 and T12-L1 facet blocks when buttock infection is cleared Cont iv abx per ID for R buttock wound infection alf medical tx for osteoporosis recommended, ? alternative to steroid tx for COPD Mobilize to reduce rate of progressive osteoporosis Lidoderm patches, neurontin
[2019-01-02] MEDS: VANCOMYCIN HCL 1,250 MG in DEXTROSE 5%-WATER - 250 ML IVPB SCH (12:29)
--- NOTE | 2019-01-02 13:37 | CONS ---
PHYSICAL MEDICINE AND REHABILITATION CONSULTATION DATE OF CONSULTATION: 01/02/2019 REFERRING PHYSICIAN: Agustina Taylor MD HISTORY OF PRESENT ILLNESS: The patient is a 58-year-old woman with an extensive past medical history including COPD, obstructive sleep apnea syndrome, congestive heart failure and chronic low back pain who had recently been diagnosed with gluteal abscess and was admitted on December 26, 2018, with right-sided lower back pain radiating into her abdomen. The patient apparently has been at [facility] for some time, was ambulatory with assistance up until mid-November. She was found to have gluteal abscess which she states was drained at [facility] but developed increasing disability and severe pain, was admitted to [facility] on December 26. CT of the chest showed right and left lower lobe consolidation, cardiomegaly. The patient had an elevated white count of over 20,000 and on MRSA contact isolation. Other blood work on admission: Hemoglobin 10.3, platelet count 422, elevated CO2 of 37, normal sodium 135, potassium 4.5, BUN 17.1, creatinine 0.6. Most blood work done earlier this morning: WBC has improved to 13.2, hemoglobin 11.7, platelet count 418. Chemistry also done this morning showed hypokalemia with a sodium of 3.3, elevated CO2 of 40, glucose was low at 4.4, albumin low at 2.8. The patient states she is feeling better but continues to have pain in the right side of her lower back which radiates across her abdomen. She underwent a CT of the lumbar spine on December 28 which showed multiple compression fractures in the lower thoracic as well as the lumbar spine from T12 to L5, which were worse compared to June 15, 2018, with likely recent fractures noted. The patient is followed by Dr. Heladio Mir, who does not recommend any surgical intervention, and because of the gluteal abscess, a TLSO brace also is not ideal. The patient has been seen by physical therapy, last agreeable to therapy on December 29, supine to sit with minimal assist, but unable to stand at that time. Again, she had been ambulatory with assist until mid-November at [facility]. PAST MEDICAL AND SURGICAL HISTORY: Review as above, also history of gastroesophageal reflux disease, hyperlipidemia, hypothyroidism. SOCIAL HISTORY: Has been in and out of the hospital as well as [facility] facilities for the better part of 2 years, per the patient. REVIEW OF SYSTEMS: No current headache. No lightheadedness, dizziness, no blurry vision, double. No nausea or vomiting, difficulty swallowing, difficulty chewing. No chest pain or shortness of breath at rest, but she does get dyspneic with any exertion or even talking for an extended period. Again, she does have back pain radiating across her right abdomen, especially if she leans to her right side. She feels more comfortable lying on her left side, also discomfort with coughing, sneezing or deep breathing. No numbness, tingling or radicular symptoms into the lower extremity. Slight discomfort with extreme adduction or flexion of her right upper extremity at the shoulder. PHYSICAL EXAMINATION:General: The patient is a slightly overweight woman looking cushingoid seen lying on her left side in bed. She is awake, alert and has good insight into her medical conditions. Neurologic: Cranial nerves 2-12 grossly intact. Musculoskeletal: She has fairly good strength and range throughout her upper extremities. The lower extremities proximally are limited by the back discomfort as well as positioning on her left side. No pitting edema in the lower extremities, no calf tenderness. No heel or distal lower extremity breakdown or discoloration. She has no gross arthritic change in the upper or lower limbs. She is tender in the right lower thoracic or upper lumbar region as well as her right ribcage to a lesser degree. OVERALL IMPRESSION:1. Deficits to mobility, activities of daily living, multifactorial. 2. Low back pain radiating into the right abdomen with multiple lower thoracic as well as L1-L5 compression fractures, at least some of them appearing recent on CAT scan, rule out T10 radiculopathy or intercostal neuralgia. 3. Elevated leukocytosis. 4. Methicillin-resistant Staphylococcus aureus/ 5. Gluteal abscess status post drainage. 6. Severe chronic obstructive pulmonary disease. 7. Obstructive sleep apnea syndrome on continuous positive airway pressure (CPAP). 8. Anemia. 9. Hypokalemia. 10. Hypertension. 11. Gastroesophageal reflux disease. 12. Hypothyroidism. 13. Diabetes. 14. Hyperlipidemia. PLAN/SUGGESTIONS: 1. Continue supportive physical therapy at the bedside. The patient is feeling improved and does feel she will be able to participate. 2. Continue sitting up in bed or out of bed to chair if and when appropriate, if not contraindicated by gluteal abscess. 3. Cardiopulmonary precaution. 4. Safety/fall precautions. 5. DVT prophylaxis: Has SCDs and is on subcutaneous heparin. 6. Skin precautions. 7. Wound care. 8. Return to [facility] facility once medically stable. Thank you for this referral. KARI PARKER M.D. [id number]
--- NOTE | 2019-01-02 14:24 | PN ---
Progress Note, Physician Chief Complaint: feels a little better less back pain; started neurontin and lidoderm patches; also oxycodone helps; d/w pt risks and SE correction use fall tolerance dependence; prevent constipation (she had BMs) pt said she was able to sit up in the chair yesterday for few hours consults appreciated and d/w pt - d/w pt any invasive spine procedure should be postponed for now (like kyphoplasty, INJ) until MRSA infection from her back is cleared; should get BDT asses OP (usually done outpt but will try to obtain it inpt); started Ca and vit D; will d/w endocrine regarding OP tx - fosamax? boniva? had GLU BGM 300s last evening received sq Insulin 8U then this am GLU 44 received D50; now D5NS x 24H; steroids tapered to once a day BP borderline low 96/60 will DC cozaar (now on 25 mg/day) - Current Medication List Current Medications: Active Medications Acetaminophen (Tylenol -) 650 mg PO Q6H PRN PRN Reason: PAIN LEVEL 1-5 Last Admin: 01/02/19 09:24 Dose: 650 mg Al Hydroxide/Mg Hydroxide (Mylanta Oral Suspension -) 30 ml PO QID PRN PRN Reason: GAS Albuterol Sulfate (Ventolin 0.083% Nebulizer Soln -) 1 amp NEB QID PRN PRN Reason: SHORT OF BREATH/WHEEZING Last Admin: 12/31/18 13:50 Dose: 1 amp Arformoterol Tartrate (Brovana (Restricted To Pulmonology/Resp) -) 1 amp NEB RBID [facility] Last Admin: 01/02/19 07:59 Dose: 1 amp Aspirin (Asa -) 81 mg PO DAILY [facility] Last Admin: 01/02/19 09:25 Dose: 81 mg Calcium Carbonate/Cholecalciferol (Os-Elie 500+D -) 1 tab PO DAILY [facility] Last Admin: 01/02/19 09:26 Dose: 1 tab Cholecalciferol (Vitamin D3 -) 1,000 unit PO DAILY [facility] Last Admin: 01/02/19 09:24 Dose: 1,000 unit Escitalopram Oxalate (Lexapro -) 5 mg PO DAILY [facility] Last Admin: 01/02/19 09:23 Dose: 5 mg Gabapentin (Neurontin -) 300 mg PO TID [facility] Last Admin: 01/02/19 06:14 Dose: 300 mg Heparin Sodium (Porcine) (Heparin -) 5,000 unit SQ BID [facility] Last Admin: 01/02/19 09:26 Dose: 5,000 unit Aztreonam 1 gm/ Dextrose 50 mls @ 100 mls/hr IVPB Q8H-IV [facility]; Protocol Last Admin: 01/02/19 09:21 Dose: 100 mls/hr Vancomycin HCl 1,250 mg/ (Dextrose) 250 mls @ 166.667 mls/hr IVPB DAILY [facility] Last Admin: 01/02/19 12:29 Dose: 166.667 mls/hr Dextrose/Sodium Chloride (D5-Ns -) 1,000 mls @ 50 mls/hr IV ASDIR [facility] Stop: 01/03/19 02:59 Last Admin: 01/02/19 07:45 Dose: 50 mls/hr Insulin Aspart (Novolog Vial Sliding Scale -) 1 vial SQ ACHS [facility]; Protocol Last Admin: 01/02/19 12:27 Dose: Not Given Lactobacillus Acidophilus (Bacid -) 1 tab PO DAILY [facility] Last Admin: 01/02/19 09:24 Dose: 1 tab Levothyroxine Sodium (Synthroid -) 75 mcg PO DAILY@0700 [facility] Last Admin: 01/02/19 06:14 Dose: 75 mcg Lidocaine (Lidoderm Patch -) 1 patch TP DAILY [facility] Last Admin: 01/02/19 09:20 Dose: 1 patch Metformin HCl (Glucophage -) 500 mg PO DAILY@0700 [facility] Last Admin: 01/02/19 06:28 Dose: Not Given Methylprednisolone Sodium Succinate (Solu-Medrol -) 40 mg IVPUSH DAILY [facility] Last Admin: 01/02/19 09:27 Dose: 40 mg Miscellaneous (Lidoderm Patch Removal) 1 each MC DAILY@2200 [facility] Last Admin: 01/02/19 00:00 Dose: Not Given Montelukast Sodium (Singulair -) 10 mg PO HS [facility] Last Admin: 01/01/19 22:30 Dose: 10 mg Oxycodone HCl (Roxicodone -) 5 mg PO Q6H PRN PRN Reason: PAIN LEVEL 6-10 Last Admin: 01/02/19 09:24 Dose: 5 mg Pantoprazole Sodium (Protonix -) 20 mg PO DAILY [facility] Last Admin: 01/02/19 09:26 Dose: 20 mg Polyethylene Glycol (Miralax (For Daily Use) -) 17 gm PO DAILY [facility] Last Admin: 01/02/19 09:26 Dose: Not Given Potassium Chloride (K-Dur -) 20 meq PO DAILY [facility] Roflumilast (Daliresp -) 500 mcg PO DAILY [facility] Last Admin: 01/02/19 09:26 Dose: 500 mcg Rosuvastatin Calcium (Crestor -) 5 mg PO HS [facility] Last Admin: 01/01/19 22:32 Dose: 5 mg Sodium Chloride ([place] Nasal [place] -) 2 spray NS BID [facility] Last Admin: 01/02/19 09:59 Dose: 2 sprays Tiotropium [place] (Spiriva Respimat) 2 puff IH DAILY [facility] Last Admin: 01/02/19 09:27 Dose: 2 puff - Objective Vital Signs: Vital Signs Temperature 98.2 F 01/02/19 10:00 Pulse Rate 92 H 01/02/19 10:00 Respiratory Rate 18 01/02/19 10:00 Blood Pressure 93/60 01/02/19 10:00 O2 Sat by Pulse Oximetry (%) 95 01/01/19 21:00 Constitutional: Yes: No Distress, Calm Eyes: Yes: Conjunctiva Clear HENT: Yes: Atraumatic Neck: Yes: Supple Cardiovascular: Yes: Regular Rate and Rhythm Respiratory: Yes: CTA Bilaterally Gastrointestinal: Yes: Soft. No: Tenderness Genitourinary: No: CVA Tenderness - Left, CVA Tenderness - Right, Hematuria Musculoskeletal: No: Joint Stiffness, Joint Swelling Extremities: No: Cold, Cool, Cyanosis Edema: No Integumentary: Yes: Bruising, Pressure Ulcer. No: Rash, Venous Stasis Changes Neurological: Yes: WNL, Alert, Oriented ...Motor Strength: WNL Psychiatric: Yes: WNL, Alert, Oriented. No: Agitated, Suicidal Ideation Labs: CBC, BMP 01/02/19 06:15 01/02/19 06:15 INR, PTT INR 0.92 (0.83-1.09) 01/02/19 06:15 - ....Imaging Other: Report Reviewed Assessment/Plan 58 year old female with PMH advanced severe COPD on 3-4L O2 19/01, NAVDEEP on CPAP at night, anemia, HTN, GERD, HLD, DM, chronic back pain admitted with COPD exac and PNA, back pain OP compression fractures, high WBC, decubs; IV ATB per ID; IV steroids tapered to iv daily; pulm f/u neurontin, lidoderm for vertebral compression fractures and back pain; to f/ui with NS dr Mir after infection cleared, might benefit from INJ endocrine eval OP tx oxycodone prn; stools softeners prn DC back to SNF when cleared by ID and pulmonary d/w pt and staff; pt agreed with plan
[2019-01-02] MEDS: POTASSIUM CHLORIDE TABS 20 MEQ TABLET.ER (FP) PO SCH (14:50)
--- NOTE | 2019-01-02 16:17 | CONSULT ---
Consult Consult Specialty:: Endocrinology Referred by:: Agustina Taylor MD Reason for Consultation:: Osteoporosis management - History of Present Illness Chief Complaint: SOB. Back pain History of Present Illness: This is a 58 year old female with h/o advanced severe COPD on 3-4L O2 /, NAVDEEP on CPAP at night, anemia, HTN, GERD, HLD, DM, chronic back pain BIBA to ED from [facility] ([place], [place]) for increasing SOB x1 - 2 weeks associated with dry cough. Pt is a chronic CO2 retainer. Pt is on chronic Prednisone 5 mg, but was given a higher dose of Prednisone x2 days ago, albuterol nebulizer from [facility] ([place], [place]), without relief of her symptoms. Pt c/o of weakness and difficulty walking. CT scan showed multiple vertebral fractures ?osteoporotic. Pt referred for evaluation. Last menstrual period a few years ago. Has bone density test done about 10 years ago. Pt not sure where she did it. On Steroids of about 10 years. - History Source History Provided By: Patient, Medical Record - Past Medical History Cardio/Vascular: Yes: CHF (end diastolic), HTN, Hyperlipdemia Pulmonary: Yes: COPD, O2 Dependent, Sleep Apnea Gastrointestinal: Yes: Constipation ...LMP: 06/03/14 Infectious Disease: Yes: Other (pneumonia) Musculoskeletal: Yes: Chronic low back pain Endocrine: Yes: Hypothyroidism Additional Medical History: multiple vertebral compression fracutres lower thoracic and lumbar spine - Past Surgical History Past Surgical History: Yes: - Alcohol/Substance Use Hx Alcohol Use: No History of Substance Use: reports: None - Smoking History Smoking history: Unknown if ever smoked Have you smoked in the past 12 months: No If you are a former smoker, when did you quit?: 8 years ago - Social History Usual Living Arrangement: Alf ADL: Family Assistance 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[employer] History of Recent Travel: No Home Medications - Allergies Allergies/Adverse Reactions: Allergies Allergy/AdvReac Type Severity Reaction Status Date / Time Penicillins Allergy Severe Difficulty Verified 12/25/18 15:20 Breathing - Home Medications Home Medications: Ambulatory Orders Roflumilast [Daliresp] 500 mcg PO DAILY #30 tablet 06/24/17 Montelukast Sodium [Singulair] 10 mg PO HS 04/05/18 Rosuvastatin [Crestor -] 5 mg PO HS 04/05/18 Albuterol 0.083% Nebulizer Colette [Ventolin 0.083% Nebulizer Soln -] 1 amp NEB QID PRN 05/06/18 Insulin Sliding Scale [Novolog Vial Sliding Scale -] 1 vial SQ ACHS units 06/10 Lactobacillus Acidophilus [Bacid -] 1 tab PO DAILY tab 06/10/18 Pantoprazole Sodium [Protonix -] 20 mg PO DAILY tablet.ec 06/10/18 Sodium Chloride Nasal [place] [[place] Nasal [place] -] 2 spray NS BID spray Tiotropium [place] [Spiriva Respimat] 2 puff IH DAILY inhaler 06/10/18 Heparin - 5,000 unit SQ BID vial 06/17/18 Losartan Potassium [Cozaar -] 25 mg PO DAILY tablet 06/17/18 Arformoterol Tartrate [Brovana -] 1 amp NEB BID 12/25/18 Aspirin [ASA -] 81 mg PO DAILY 12/25/18 Desloratadine/Pseudoephedrine [Clarinex-D 12 Hour Tablet] 1 tab PO DAILY Escitalopram Oxalate [Lexapro -] 5 mg PO DAILY 12/25/18 Fluticasone/Salmeterol [Advair 250-50 Diskus] 1 inh PO BID 12/25/18 Ibuprofen [Advil -] 200 mg PO TID 12/25/18 Levothyroxine [Synthroid -] 75 mcg PO DAILY@0700 12/25/18 Mag Hydrox/Al Hydrox/Simeth [Mylanta Oral Suspension -] 30 ml PO QID PRN Oxycodone HCl 5 mg PO 12/25/18 metFORMIN HCL [Glucophage -] 500 mg PO DAILY 12/25/18 predniSONE [Deltasone -] 10 mg PO BID 12/25/18 Family Disease History - Family Disease History Family Disease History: Respiratory: Father ( 80 of COPD), Brother ( of COPD), Other: Father, Mother ( 82 unknown reason) Review of Systems - Review of Systems Constitutional: reports: Malaise Eyes: reports: No Symptoms HENT: reports: No Symptoms Neck: reports: No Symptoms Cardiovascular: reports: No Symptoms Respiratory: reports: SOB, SOB on Exertion Gastrointestinal: reports: No Symptoms Genitourinary: reports: No Symptoms Musculoskeletal: reports: Back Pain Neurological: reports: No Symptoms Endocrine: reports: No Symptoms Hematology/Lymphatic: reports: No Symptoms Physical Exam Vital Signs: Vital Signs Temperature 98.2 F 01/02/19 10:00 Pulse Rate 92 H 01/02/19 10:00 Respiratory Rate 18 01/02/19 10:00 Blood Pressure 93/60 01/02/19 10:00 O2 Sat by Pulse Oximetry (%) 95 01/01/19 21:00 Constitutional: Yes: Mild Distress Eyes: Yes: Conjunctiva Clear, EOM Intact HENT: Yes: Atraumatic, Normocephalic Neck: Yes: Supple, Trachea Midline Cardiovascular: Yes: Regular Rate and Rhythm Respiratory: Yes: Regular, CTA Bilaterally Gastrointestinal: Yes: Normal Bowel Sounds, Soft Extremities: Yes: WNL Edema: No Neurological: Yes: Alert Labs: CBC, BMP 01/02/19 06:15 01/02/19 06:15 Assessment/Plan A/P Acute on Chronic Hypoxic and Hypercapneic Respiratory Failure Pneumonia/effusions Acute COPD Exacerbation Hypothyroidism NAVDEEP Thoracic/Lumbar Compression Fractures ?Osteoporotic Hyperlipidemia Will discuss with radiology if fractures are sec to osteoporosis Dexa Scan in hospital if possible. Will f/u
[2019-01-02 17:53] VITALS: BMI 27.0
[2019-01-02] MEDS: MONTELUKAST NA 10 MG TABLET PO SCH (22:55)
[2019-01-02] MEDS: ROSUVASTATIN CA 5 MG TABLET (FP) PO SCH (22:55)
[2019-01-02] MEDS: LIDOCAINE PATCH REMOVAL MC SCH ×2 (22:58)
[2019-01-03] MEDS ORDERED: AZTREONAM 1 GM VIAL (RESTRICTED TO ID) ONE ×3 (02:43→13:46)
[2019-01-03] MEDS ORDERED: DEXTROSE 5%-WATER - 50 ML IVPB ONE ×3 (02:44→13:46)
[2019-01-03] MEDS: AZTREONAM 1 GM in DEXTROSE 5%-WATER - 50 ML IVPB SCH ×2 (02:47→10:56)
[2019-01-03] MEDS: ACETAMINOPHEN 325 MG TABLET (FP) PO PRN (05:17)
[2019-01-03] MEDS: oxyCODONE HCL 5 MG TABLET PO PRN ×3 (05:18→21:20)
[2019-01-03] MEDS: GABAPENTIN 300 MG CAPSULE (FP) PO SCH ×3 (06:21→21:09)
[2019-01-03] MEDS: metFORMIN HCL 500 MG TABLET (FP) PO SCH (06:22)
[2019-01-03] MEDS: LEVOTHYROXINE NA 75 MCG TABLET (FP) PO SCH (06:22)
[2019-01-03] MEDS: INSULIN SLIDING SCALE (NOVOLOG) 1 VIAL SQ SCH ×4 (06:22→21:22)
[2019-01-03] MEDS: ARFORMOTEROL TARTRATE 15 MCG/2 ML VIAL NEB SCH ×2 (07:32→20:15)
--- NOTE | 2019-01-03 07:42 | PN ---
Progress Note, Physician Chief Complaint: in bed NAD feels a little better with her back on neurontin kyphoplasty postponed until MRSA cleared d/w pt to f/u with dr Carter and dr Mir in few weeks; BDT not able to be done inpt, will d/w endocrine about further OP treatment; I d /w pt about fosamax, boniva, indications, risks, possible SE, administration - she will think about them. - Current Medication List Current Medications: Active Medications Acetaminophen (Tylenol -) 650 mg PO Q6H PRN PRN Reason: PAIN LEVEL 1-5 Last Admin: 01/03/19 05:17 Dose: 650 mg Al Hydroxide/Mg Hydroxide (Mylanta Oral Suspension -) 30 ml PO QID PRN PRN Reason: GAS Albuterol Sulfate (Ventolin 0.083% Nebulizer Soln -) 1 amp NEB QID PRN PRN Reason: SHORT OF BREATH/WHEEZING Last Admin: 12/31/18 13:50 Dose: 1 amp Arformoterol Tartrate (Brovana (Restricted To Pulmonology/Resp) -) 1 amp NEB RBID [facility] Last Admin: 01/03/19 07:32 Dose: 1 amp Aspirin (Asa -) 81 mg PO DAILY [facility] Last Admin: 01/02/19 09:25 Dose: 81 mg Calcium Carbonate/Cholecalciferol (Os-Elie 500+D -) 1 tab PO DAILY [facility] Last Admin: 01/02/19 09:26 Dose: 1 tab Cholecalciferol (Vitamin D3 -) 1,000 unit PO DAILY [facility] Last Admin: 01/02/19 09:24 Dose: 1,000 unit Escitalopram Oxalate (Lexapro -) 5 mg PO DAILY [facility] Last Admin: 01/02/19 09:23 Dose: 5 mg Gabapentin (Neurontin -) 300 mg PO TID [facility] Last Admin: 01/03/19 06:21 Dose: 300 mg Heparin Sodium (Porcine) (Heparin -) 5,000 unit SQ BID [facility] Last Admin: 01/02/19 22:56 Dose: 5,000 unit Vancomycin HCl 1,250 mg/ (Dextrose) 250 mls @ 166.667 mls/hr IVPB DAILY [facility] Last Admin: 01/02/19 12:29 Dose: 166.667 mls/hr Aztreonam 1 gm/ Dextrose 50 mls @ 100 mls/hr IVPB Q8H-IV [facility]; Protocol Last Admin: 01/03/19 02:47 Dose: 100 mls/hr Insulin Aspart (Novolog Vial Sliding Scale -) 1 vial SQ ACHS [facility]; Protocol Last Admin: 01/03/19 06:22 Dose: Not Given Lactobacillus Acidophilus (Bacid -) 1 tab PO DAILY [facility] Last Admin: 01/02/19 09:24 Dose: 1 tab Levothyroxine Sodium (Synthroid -) 75 mcg PO DAILY@0700 [facility] Last Admin: 01/03/19 06:22 Dose: 75 mcg Lidocaine (Lidoderm Patch -) 1 patch TP DAILY [facility] Last Admin: 01/02/19 09:20 Dose: 1 patch Metformin HCl (Glucophage -) 500 mg PO DAILY@0700 [facility] Last Admin: 01/03/19 06:22 Dose: 500 mg Methylprednisolone Sodium Succinate (Solu-Medrol -) 40 mg IVPUSH DAILY [facility] Last Admin: 01/02/19 09:27 Dose: 40 mg Miscellaneous (Lidoderm Patch Removal) 1 each MC DAILY@2200 [facility] Last Admin: 01/02/19 22:58 Dose: 1 each Montelukast Sodium (Singulair -) 10 mg PO [facility] Last Admin: 01/02/19 22:55 Dose: 10 mg Oxycodone HCl (Roxicodone -) 5 mg PO Q6H PRN PRN Reason: PAIN LEVEL 6-10 Last Admin: 01/03/19 05:18 Dose: 5 mg Pantoprazole Sodium (Protonix -) 20 mg PO DAILY [facility] Last Admin: 01/02/19 09:26 Dose: 20 mg Polyethylene Glycol (Miralax (For Daily Use) -) 17 gm PO DAILY [facility] Last Admin: 01/02/19 09:26 Dose: Not Given Potassium Chloride (K-Dur -) 20 meq PO DAILY [facility] Last Admin: 01/02/19 14:50 Dose: 20 meq Roflumilast (Daliresp -) 500 mcg PO DAILY [facility] Last Admin: 01/02/19 09:26 Dose: 500 mcg Rosuvastatin Calcium (Crestor -) 5 mg PO HS [facility] Last Admin: 01/02/19 22:55 Dose: 5 mg Sodium Chloride ([place] Nasal [place] -) 2 spray NS BID [facility] Last Admin: 01/02/19 22:58 Dose: Not Given Tiotropium [place] (Spiriva Respimat) 2 puff IH DAILY [facility] Last Admin: 01/02/19 09:27 Dose: 2 puff - Objective Vital Signs: Vital Signs Temperature 97.6 F 01/03/19 05:00 Pulse Rate 84 01/03/19 05:00 Respiratory Rate 20 01/03/19 05:00 Blood Pressure 124/68 01/03/19 05:00 O2 Sat by Pulse Oximetry (%) 100 01/02/19 21:00 Constitutional: Yes: No Distress, Calm Eyes: Yes: Conjunctiva Clear HENT: Yes: Atraumatic Neck: Yes: Supple Cardiovascular: Yes: Regular Rate and Rhythm Respiratory: Yes: CTA Bilaterally Gastrointestinal: Yes: Soft. No: Tenderness Genitourinary: No: CVA Tenderness - Left, CVA Tenderness - Right Musculoskeletal: No: Joint Stiffness, Joint Swelling Extremities: No: Cold, Cool, Cyanosis Edema: No Integumentary: Yes: Bruising, Pressure Ulcer. No: Rash, Venous Stasis Changes Neurological: Yes: WNL, Alert, Oriented ...Motor Strength: WNL Psychiatric: Yes: WNL, Alert, Oriented. No: Agitated, Suicidal Ideation Labs: CBC, BMP 01/02/19 06:15 01/02/19 06:15 INR, PTT INR 0.92 (0.83-1.09) 01/02/19 06:15 - ....Imaging Other: Report Reviewed Assessment/Plan 58 year old female with PMH advanced severe COPD on 3-4L O2 /, NAVDEEP on CPAP at night, anemia, HTN, GERD, HLD, DM, chronic back pain admitted with COPD exac and PNA, back pain OP compression fractures, high WBC, decubs; IV ATB per ID; IV steroids tapered to iv daily; pulm f/u neurontin, lidoderm for vertebral compression fractures and back pain; d/w pt to f/u with NS dr Mir and IR dr Carter after infection cleared, might benefit from INJ / kyphoplasty endocrine eval OP tx oxycodone prn; stools softeners prn DC back to SNF when cleared by ID and pulmonary d/w pt and staff; pt agreed with plan
--- NOTE | 2019-01-03 09:31 | PN ---
Progress Note (short form) - Note Progress Note: Neurology Chief Complaint: low back pain History of Present Illness: 58 year old female with PMH advanced severe COPD on 3-4L O2 24/7, NAVDEEP on CPAP at night, anemia, HTN, GERD, HLD, DM, chronic back pain BIBA to ED from [facility] for increasing SOB x1 - 2 weeks associated with dry cough. Chronic CO2 retainer , Prednisone 5 mg, but was given a higher dose of Prednisone x2 days ago, albuterol nebulizer from [facility], without relief of her symptoms. Pt denied fever , chest pain, sputum production, nausea, vomiting. Pt also complained of her chronic back pain, she applied a lidoderm patch, which she stated she believes made her pain worse. She complains of pain in her abdomen R sided coming from her back; worse with moving. 2 weeks ago became weaker and more SOB; did not get OOB in 1-2 weeks so she started to develop sacral decubs. 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 CT abdoment/pelvis with reported compression fractures in T/L spine. Patient getting physical therapy at [facility], discussed with her treatment options including pain mgmt and surgical evaluation. Consult note reviewed, no plan for drainage of hematoma. L spine Ct completed, report reviewed, confirmed compression fractures, comments that it is worse compared to 06/15/18 imaging. Patient uncomfortable this AM. Notes from Dr. Mir reviewed , intervention limited by local infection and concern for seeding. Remains on ABx and getting pain medication. Home Medications - Allergies Allergies/Adverse Reactions: Allergies Allergy/AdvReac Type Severity Reaction Status Date / Time Penicillins Allergy Severe Difficulty Verified 12/25/18 15:20 Breathing Active Medications Acetaminophen (Tylenol -) 650 mg PO Q6H PRN PRN Reason: PAIN LEVEL 1-5 Last Admin: 01/03/19 05:17 Dose: 650 mg Al Hydroxide/Mg Hydroxide (Mylanta Oral Suspension -) 30 ml PO QID PRN PRN Reason: GAS Albuterol Sulfate (Ventolin 0.083% Nebulizer Soln -) 1 amp NEB QID PRN PRN Reason: SHORT OF BREATH/WHEEZING Last Admin: 12/31/18 13:50 Dose: 1 amp Arformoterol Tartrate (Brovana (Restricted To Pulmonology/Resp) -) 1 amp NEB RBID [facility] Last Admin: 01/03/19 07:32 Dose: 1 amp Aspirin (Asa -) 81 mg PO DAILY [facility] Last Admin: 01/02/19 09:25 Dose: 81 mg Calcium Carbonate/Cholecalciferol (Os-Elie 500+D -) 1 tab PO DAILY [facility] Last Admin: 01/02/19 09:26 Dose: 1 tab Cholecalciferol (Vitamin D3 -) 1,000 unit PO DAILY [facility] Last Admin: 01/02/19 09:24 Dose: 1,000 unit Escitalopram Oxalate (Lexapro -) 5 mg PO DAILY [facility] Last Admin: 01/02/19 09:23 Dose: 5 mg Gabapentin (Neurontin -) 300 mg PO TID [facility] Last Admin: 01/03/19 06:21 Dose: 300 mg Heparin Sodium (Porcine) (Heparin -) 5,000 unit SQ BID [facility] Last Admin: 01/02/19 22:56 Dose: 5,000 unit Vancomycin HCl 1,250 mg/ (Dextrose) 250 mls @ 166.667 mls/hr IVPB DAILY [facility] Last Admin: 01/02/19 12:29 Dose: 166.667 mls/hr Aztreonam 1 gm/ Dextrose 50 mls @ 100 mls/hr IVPB Q8H-IV [facility]; Protocol Last Admin: 01/03/19 02:47 Dose: 100 mls/hr Insulin Aspart (Novolog Vial Sliding Scale -) 1 vial SQ ACHS [facility]; Protocol Last Admin: 01/03/19 06:22 Dose: Not Given Lactobacillus Acidophilus (Bacid -) 1 tab PO DAILY [facility] Last Admin: 01/02/19 09:24 Dose: 1 tab Levothyroxine Sodium (Synthroid -) 75 mcg PO DAILY@0700 [facility] Last Admin: 01/03/19 06:22 Dose: 75 mcg Lidocaine (Lidoderm Patch -) 1 patch TP DAILY [facility] Last Admin: 01/02/19 09:20 Dose: 1 patch Metformin HCl (Glucophage -) 500 mg PO DAILY@0700 [facility] Last Admin: 01/03/19 06:22 Dose: 500 mg Methylprednisolone Sodium Succinate (Solu-Medrol -) 40 mg IVPUSH DAILY [facility] Last Admin: 01/02/19 09:27 Dose: 40 mg Miscellaneous (Lidoderm Patch Removal) 1 each MC DAILY@2200 [facility] Last Admin: 01/02/19 22:58 Dose: 1 each Montelukast Sodium (Singulair -) 10 mg PO [facility] Last Admin: 01/02/19 22:55 Dose: 10 mg Oxycodone HCl (Roxicodone -) 5 mg PO Q6H PRN PRN Reason: PAIN LEVEL 6-10 Last Admin: 01/03/19 05:18 Dose: 5 mg Pantoprazole Sodium (Protonix -) 20 mg PO DAILY [facility] Last Admin: 01/02/19 09:26 Dose: 20 mg Polyethylene Glycol (Miralax (For Daily Use) -) 17 gm PO DAILY [facility] Last Admin: 01/02/19 09:26 Dose: Not Given Potassium Chloride (K-Dur -) 20 meq PO DAILY [facility] Last Admin: 01/02/19 14:50 Dose: 20 meq Roflumilast (Daliresp -) 500 mcg PO DAILY [facility] Last Admin: 01/02/19 09:26 Dose: 500 mcg Rosuvastatin Calcium (Crestor -) 5 mg PO [facility] Last Admin: 01/02/19 22:55 Dose: 5 mg Sodium Chloride ([place] Nasal [place] -) 2 spray NS BID [facility] Last Admin: 01/02/19 22:58 Dose: Not Given Tiotropium [place] (Spiriva Respimat) 2 puff IH DAILY [facility] Last Admin: 01/02/19 09:27 Dose: 2 puff Physical Examination Vital Signs: Vital Signs Period Temp Pulse Resp BP Sys/Domínguez Pulse Ox Last 24 Hr 97.6 F-98.5 F 84-121 18-20 93-125/58-68 100 Constitutional: Yes: No Distress, Calm Eyes: Yes: Conjunctiva Clear HENT: Yes: Atraumatic Neck: Yes: Supple Cardiovascular: Yes: Regular Rate and Rhythm Respiratory: Yes: Diminished Gastrointestinal: Yes: Soft. No: Distention, Tenderness Renal/: No: CVA Tenderness - Left, CVA Tenderness - Right, Hematuria Musculoskeletal: No: Joint Stiffness, Joint Swelling Extremities: No: Cold, Cool, Cyanosis Edema: No Integumentary: No: Venous Stasis Changes Wound/Incision: Yes: Other (sacral decubs R sided closed, L sided 2 open lesions ) Neurological: Cn intact no facial droop or slurred speech, Lower extr 5-/5, UE 5 /5, sensory reduced to Lt in distal LE, gait deferred CBCD WBC 13.2 K/mm3 (4.0-10.0) H 01/02/19 06:15 RBC 4.00 M/mm3 (3.60-5.2) 01/02/19 06:15 Hgb 11.7 GM/dL (10.7-15.3) 01/02/19 06:15 Hct 36.5 % (32.4-45.2) D 01/02/19 06:15 MCV 91.4 fl (80-96) 01/02/19 06:15 MCHC 31.9 g/dl (32.0-36.0) L 01/02/19 06:15 RDW 15.6 % (11.6-15.6) 01/02/19 06:15 Plt Count 418 K/MM3 (134-434) 01/02/19 06:15 MPV 8.2 fl (7.5-11.1) 01/02/19 06:15 CMP Sodium 141 mmol/L (136-145) 01/02/19 06:15 Potassium 3.3 mmol/L (3.5-5.1) L 01/02/19 06:15 Chloride 96 mmol/L (98-107) L 01/02/19 06:15 Carbon Dioxide 40 mmol/L (21-32) H 01/02/19 06:15 Anion Gap 6 MMOL/L (8-16) L 01/02/19 06:15 BUN 16.8 mg/dL (7-18) 01/02/19 06:15 Creatinine 0.4 mg/dL (0.55-1.3) L 01/02/19 06:15 Random Glucose 44 mg/dL (74-106) L* 01/02/19 06:15 Calcium 8.8 mg/dL (8.5-10.1) 01/02/19 06:15 Total Bilirubin 0.4 mg/dL (0.2-1) 01/02/19 06:15 AST 14 U/L (15-37) L 01/02/19 06:15 ALT 22 U/L (13-61) 01/02/19 06:15 Alkaline Phosphatase 140 U/L (45-117) H 01/02/19 06:15 Total Protein 6.0 g/dl (6.4-8.2) L 01/02/19 06:15 Albumin 2.8 g/dl (3.4-5.0) L 01/02/19 06:15 CARDIAC ENZYMES Creatine Kinase 51 U/L (26-192) 12/26/18 06:40 Troponin I < 0.02 ng/ml (0.00-0.05) 12/26/18 06:40 Assessment/Plan 58 year old female with PMH advanced severe COPD on 3-4L O2 19/01, NAVDEEP on CPAP at night, anemia, HTN, GERD, HLD, DM, chronic back pain BIBA to ED from [facility] for increasing SOB x1 - 2 weeks associated with dry cough. Chronic CO2 retainer , Prednisone 5 mg, but was given a higher dose of Prednisone x2 days ago, albuterol nebulizer from [facility], without relief of her symptoms. Pt denied fever , chest pain, sputum production, nausea, vomiting. Pt also complained of her chronic back pain, she applied a lidoderm patch, which she stated she believes made her pain worse. She complains of pain in her abdomen R sided coming from her back; worse with moving. 2 weeks ago became weaker and more SOB; did not get OOB in 1-2 weeks so she started to develop sacral decubs. 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 CT abdoment/pelvis with reported compression fractures in T/L spine. Patient getting physical therapy at [facility], discussed with her treatment options including pain mgmt and surgical evaluation. Consult note reviewed, no plan for drainage of hematoma. L spine Ct completed, report reviewed, confirmed compression fractures, comments that it is worse compared to 06/15/18 imaging. NSGY notes reviewed, intervention limited by local wound and concern for seeding. Continue Abx and pain mgmt. Physical therapy as tolerated. Fall precautions. Possibly for rehab when able.
--- NOTE | 2019-01-03 09:50 | PN ---
Progress Note (short form) - Note Progress Note: Reports breathing feels stable. No increase in shortness of breath, cough or wheezing. Persistent back pain Intake & Output 12/31/18 01/01/19 01/02/19 01/03/19 23:59 23:59 23:59 23:59 Intake Total 870 1070 600 400 Output Total 450 750 300 300 Balance 420 320 300 100 Weight 139 lb 3.2 oz 133 lb 8 oz 134 lb 130 lb 9.6 oz Last Vital Signs Temp Pulse Resp BP Pulse Ox 97.6 F 84 20 124/68 100 01/03/19 05:00 01/03/19 05:00 01/03/19 05:00 01/03/19 05:00 01/02/19 21:00 Active Medications Acetaminophen (Tylenol -) 650 mg PO Q6H PRN PRN Reason: PAIN LEVEL 1-5 Last Admin: 01/03/19 05:17 Dose: 650 mg Al Hydroxide/Mg Hydroxide (Mylanta Oral Suspension -) 30 ml PO QID PRN PRN Reason: GAS Albuterol Sulfate (Ventolin 0.083% Nebulizer Soln -) 1 amp NEB QID PRN PRN Reason: SHORT OF BREATH/WHEEZING Last Admin: 12/31/18 13:50 Dose: 1 amp Arformoterol Tartrate (Brovana (Restricted To Pulmonology/Resp) -) 1 amp NEB RBID [facility] Last Admin: 01/03/19 07:32 Dose: 1 amp Aspirin (Asa -) 81 mg PO DAILY [facility] Last Admin: 01/02/19 09:25 Dose: 81 mg Calcium Carbonate/Cholecalciferol (Os-Elie 500+D -) 1 tab PO DAILY [facility] Last Admin: 01/02/19 09:26 Dose: 1 tab Cholecalciferol (Vitamin D3 -) 1,000 unit PO DAILY [facility] Last Admin: 01/02/19 09:24 Dose: 1,000 unit Escitalopram Oxalate (Lexapro -) 5 mg PO DAILY [facility] Last Admin: 01/02/19 09:23 Dose: 5 mg Gabapentin (Neurontin -) 300 mg PO TID [facility] Last Admin: 01/03/19 06:21 Dose: 300 mg Heparin Sodium (Porcine) (Heparin -) 5,000 unit SQ BID [facility] Last Admin: 01/02/19 22:56 Dose: 5,000 unit Vancomycin HCl 1,250 mg/ (Dextrose) 250 mls @ 166.667 mls/hr IVPB DAILY [facility] Last Admin: 01/02/19 12:29 Dose: 166.667 mls/hr Aztreonam 1 gm/ Dextrose 50 mls @ 100 mls/hr IVPB Q8H-IV [facility]; Protocol Last Admin: 01/03/19 02:47 Dose: 100 mls/hr Insulin Aspart (Novolog Vial Sliding Scale -) 1 vial SQ ACHS [facility]; Protocol Last Admin: 01/03/19 06:22 Dose: Not Given Lactobacillus Acidophilus (Bacid -) 1 tab PO DAILY [facility] Last Admin: 01/02/19 09:24 Dose: 1 tab Levothyroxine Sodium (Synthroid -) 75 mcg PO DAILY@0700 [facility] Last Admin: 01/03/19 06:22 Dose: 75 mcg Lidocaine (Lidoderm Patch -) 1 patch TP DAILY [facility] Last Admin: 01/02/19 09:20 Dose: 1 patch Metformin HCl (Glucophage -) 500 mg PO DAILY@0700 [facility] Last Admin: 01/03/19 06:22 Dose: 500 mg Methylprednisolone Sodium Succinate (Solu-Medrol -) 40 mg IVPUSH DAILY [facility] Last Admin: 01/02/19 09:27 Dose: 40 mg Miscellaneous (Lidoderm Patch Removal) 1 each MC DAILY@2200 [facility] Last Admin: 01/02/19 22:58 Dose: 1 each Montelukast Sodium (Singulair -) 10 mg PO HS [facility] Last Admin: 01/02/19 22:55 Dose: 10 mg Oxycodone HCl (Roxicodone -) 5 mg PO Q6H PRN PRN Reason: PAIN LEVEL 6-10 Last Admin: 01/03/19 05:18 Dose: 5 mg Pantoprazole Sodium (Protonix -) 20 mg PO DAILY [facility] Last Admin: 01/02/19 09:26 Dose: 20 mg Polyethylene Glycol (Miralax (For Daily Use) -) 17 gm PO DAILY [facility] Last Admin: 01/02/19 09:26 Dose: Not Given Potassium Chloride (K-Dur -) 20 meq PO DAILY [facility] Last Admin: 01/02/19 14:50 Dose: 20 meq Roflumilast (Daliresp -) 500 mcg PO DAILY [facility] Last Admin: 01/02/19 09:26 Dose: 500 mcg Rosuvastatin Calcium (Crestor -) 5 mg PO HS [facility] Last Admin: 01/02/19 22:55 Dose: 5 mg Sodium Chloride ([place] Nasal [place] -) 2 spray NS BID [facility] Last Admin: 01/02/19 22:58 Dose: Not Given Tiotropium [place] (Spiriva Respimat) 2 puff IH DAILY [facility] Last Admin: 01/02/19 09:27 Dose: 2 puff Constitutional: Yes: Cushinoid, No Distress Eyes: Yes: Conjunctiva Clear HENT: Yes: Atraumatic Neck: Yes: Supple Cardiovascular: Yes: Regular Rate and Rhythm Respiratory: Yes: diminished throughout Gastrointestinal: Yes: Soft. No: Tenderness Genitourinary: No: CVA Tenderness - Left, CVA Tenderness - Right Musculoskeletal: No: Joint Stiffness, Joint Swelling Extremities: No: Calf Tenderness, Cold, Cool, Cyanosis Edema: No Integumentary: Yes: Pressure Ulcer. No: Rash, Venous Stasis Changes Neurological: Yes: WNL, Alert, Oriented ...Motor Strength: WNL Psychiatric: Yes: WNL, Alert, Oriented. Labs: Laboratory Results - last 24 hr 01/02/19 01/02/19 01/02/19 06:15 10:13 16:31 Neutrophils % (Manual) 79.0 Band Neutrophils % 6.0 Lymphocytes % (Manual) 7.0 L Monocytes % (Manual) 4 Eosinophils % (Manual) 0.0 D Basophils % (Manual) 0.0 Myelocytes % (Man) 1 D Promyelocytes % (Man) 1 D Blast Cells % (Manual) 0 Metamyelocytes 1 D Hypochromia 0 Platelet Estimate Normal Platelet Comment Present Polychromasia 0 Poikilocytosis 1+ Anisocytosis 2+ Microcytosis 1+ Macrocytosis 0 Spherocytes 1+ Tear Drop Cells 1+ Ovalocytes 1+ POC Glucometer 108 322 01/02/19 01/03/19 22:52 05:45 Neutrophils % (Manual) Band Neutrophils % Lymphocytes % (Manual) Monocytes % (Manual) Eosinophils % (Manual) Basophils % (Manual) Myelocytes % (Man) Promyelocytes % (Man) Blast Cells % (Manual) Metamyelocytes Hypochromia Platelet Estimate Platelet Comment Polychromasia Poikilocytosis Anisocytosis Microcytosis Macrocytosis Spherocytes Tear Drop Cells Ovalocytes POC Glucometer 192 126 IMP: Acute on Chronic Hypoxic and Hypercapneic Respiratory Failure Pneumonia/effusions Acute COPD Exacerbation LV Diastolic Dysfunction Hypothyroidism NAVDEEP Thoracic/Lumbar Compression Fractures Hyperlipidemia - pain control - continue antibiotics per ID - Daily medrol - inhaled bronchodilators - O2 to keep SpO2 >90% - Patient uses a Triology device: she does not want me to order a NIPPV device here: Risks and benefits discussed - DVT prophylaxis Dr Jennings
[2019-01-03] MEDS: LACTOBACILLUS ACIDOPHILUS 1 TABLET PO SCH (10:54)
[2019-01-03] MEDS: HEPARIN NA (PORCINE) 5,000 UNITS/ML 1ML VIAL SQ SCH ×2 (10:54→21:09)
[2019-01-03] MEDS: ASPIRIN 81 MG CHEWABLE TABLETS PO SCH (10:54)
[2019-01-03] MEDS: methylPREDNISolone NA SUCC 40 MG/1 ML VIAL IVPUSH SCH (10:54)
[2019-01-03] MEDS: POTASSIUM CHLORIDE TABS 20 MEQ TABLET.ER (FP) PO SCH (10:55)
[2019-01-03] MEDS: CHOLECALCIFEROL (VIT D3) 1,000 UNIT (25 MCG) TABLET PO SCH (10:55)
[2019-01-03] MEDS: ESCITALOPRAM OXALATE 10 MG TABLET (FP) PO SCH ×2 (10:55→14:54)
[2019-01-03] MEDS: ROFLUMILAST 500 MCG TABLET PO SCH (10:56)
[2019-01-03] MEDS: LIDOCAINE 5% TOPICAL PATCH TP SCH (10:58)
[2019-01-03] MEDS: POLYETHYLENE GLYCOL 3350 119 GM BTL PO SCH (10:58)
[2019-01-03] MEDS: SODIUM CHLORIDE NASAL SPRAY 44 ML BOTTLE NS SCH ×2 (10:59→21:24)
[2019-01-03] MEDS: CALCIUM 500MG/VIT-D 200 UNITS COMBO TABLET (FP) PO SCH (10:59)
[2019-01-03] MEDS: TIOTROPIUM BROMIDE 2.5 MCG (SPIRIVA) RESPIMAT INHALER IH SCH (11:00)
[2019-01-03] MEDS: VANCOMYCIN HCL 1,250 MG in DEXTROSE 5%-WATER - 250 ML IVPB SCH (11:00)
[2019-01-03] MEDS: PANTOPRAZOLE 20 MG TABLET (FP) PO SCH (11:00)
--- NOTE | 2019-01-03 12:25 | PN ---
Progress Note (short form) - Note Progress Note: C/o back pain less SOB Vital Signs Period Temp Pulse Resp BP Sys/Domínguez Pulse Ox Last 24 Hr 97.6 F-98.5 F 84-121 20-20 105-125/58-68 100 PE: AOx3 Neck: supple, No JVD HEENT: EOMI Lungs: scattered rhonchi CVS: S1S2 Abd: Benign Ext; No edema CMP Sodium 141 mmol/L (136-145) 01/02/19 06:15 Potassium 3.3 mmol/L (3.5-5.1) L 01/02/19 06:15 Chloride 96 mmol/L (98-107) L 01/02/19 06:15 Carbon Dioxide 40 mmol/L (21-32) H 01/02/19 06:15 Anion Gap 6 MMOL/L (8-16) L 01/02/19 06:15 BUN 16.8 mg/dL (7-18) 01/02/19 06:15 Creatinine 0.4 mg/dL (0.55-1.3) L 01/02/19 06:15 Est GFR (CKD-EPI)AfAm 134.95 01/02/19 06:15 Est GFR (CKD-EPI)NonAf 116.43 01/02/19 06:15 POC Glucometer 132 UNITS (80-120) 01/03/19 11:13 Random Glucose 44 mg/dL (74-106) L* 01/02/19 06:15 Lactic Acid 0.8 mmol/L (0.4-2.0) 12/26/18 06:40 Calcium 8.8 mg/dL (8.5-10.1) 01/02/19 06:15 Iron 88 ug/dL (27-159) 12/31/18 07:52 TIBC 215 ug/dL (250-450) L 12/31/18 07:52 Iron Saturation 41 % (15-55) 12/31/18 07:52 Unsaturated IBC 127 ug/dL (131-425) L 12/31/18 07:52 Ferritin 285.2 ng/ml (8-388) 12/31/18 07:52 Total Bilirubin 0.4 mg/dL (0.2-1) 01/02/19 06:15 AST 14 U/L (15-37) L 01/02/19 06:15 ALT 22 U/L (13-61) 01/02/19 06:15 Alkaline Phosphatase 140 U/L (45-117) H 01/02/19 06:15 LD Total 249 U/L (84-246) H 12/31/18 07:52 Creatine Kinase 51 U/L (26-192) 12/26/18 06:40 Troponin I < 0.02 ng/ml (0.00-0.05) 12/26/18 06:40 C-Reactive Protein < 0.3 MG/DL (0.00-0.3) 12/31/18 07:52 B-Natriuretic Peptide 198.2 pg/ml (5-125) H 12/26/18 06:40 Total Protein 6.0 g/dl (6.4-8.2) L 01/02/19 06:15 Total Protein (PEP) 5.4 g/dL (6.0-8.5) L 12/27/18 06:30 Albumin 2.8 g/dl (3.4-5.0) L 01/02/19 06:15 Albumin (PEP) 2.6 gm/dl (2.9-4.4) L 12/27/18 06:30 Globulin 2.8 g/dL (2.2-3.9) 12/27/18 06:30 Albumin/Globulin Ratio 0.9 (0.7-1.7) 12/27/18 06:30 [id number] (%) Cancelled 12/27/18 06:30 [id number] (%) Cancelled 12/27/18 06:30 Beta Globulins 0.8 gm/dL (0.7-1.3) 12/27/18 06:30 Beta Globulins (%) Cancelled 12/27/18 06:30 Gamma Globulins (%) Cancelled 12/27/18 06:30 M-Izaiah % Cancelled 12/27/18 06:30 Total Amylase 51 U/L (25-115) 12/27/18 06:30 Lipase 101 U/L (73-393) 12/27/18 06:30 Vitamin B12 995 pg/ml (193-986) H 12/27/18 06:30 TSH 0.59 uIU/ml (0.358-3.74) 12/26/18 06:40 Current Medications Generic Name Dose Route Start Last Admin Trade Name Freq PRN Reason Stop Dose Admin Acetaminophen 650 mg 12/26/18 01:03 01/03/19 05:17 Tylenol - PO 650 mg Q6H PRN Administration PAIN LEVEL 1-5 Al Hydroxide/Mg Hydroxide 30 ml 12/25/18 21:49 Mylanta Oral Suspension - PO QID PRN GAS Albuterol Sulfate 1 amp 12/25/18 21:49 12/31/18 13:50 Ventolin 0.083% Nebulizer Soln - NEB 1 amp QID PRN Administration SHORT OF BREATH/WHEEZING Arformoterol Tartrate 1 amp 12/25/18 22:00 01/03/19 07:32 Brovana (Restricted To Pulmonology/Resp) - NEB 1 amp RBID [facility] Administration Aspirin 81 mg 12/26/18 10:00 01/03/19 10:54 Asa - PO 81 mg DAILY [facility] Administration Calcium Carbonate/Cholecalciferol 1 tab 01/02/19 10:00 01/03/19 10:59 Os-Elie 500+D - PO 1 tab DAILY [facility] Administration Cholecalciferol 1,000 unit 01/02/19 10:00 01/03/19 10:55 Vitamin D3 - PO 1,000 unit DAILY [facility] Administration Escitalopram Oxalate 5 mg 12/26/18 10:00 01/03/19 10:55 Lexapro - PO 5 mg DAILY [facility] Administration Gabapentin 300 mg 01/01/19 14:30 01/03/19 06:21 Neurontin - PO 300 mg TID [facility] Administration Heparin Sodium (Porcine) 5,000 unit 12/25/18 22:00 01/03/19 10:54 Heparin - SQ 5,000 unit BID [facility] Administration Vancomycin HCl 1,250 mg/ 250 mls @ 166.667 mls/hr 12/30/18 10:00 01/03/19 11: 00 Dextrose IVPB 166.667 mls/hr DAILY [facility] Administration Aztreonam 1 gm/ Dextrose 50 mls @ 100 mls/hr 01/02/19 18:30 01/03/19 10:56 IVPB 100 mls/hr Q8H-IV [facility] Administration Protocol Insulin Aspart 1 vial 12/26/18 07:00 01/03/19 11:24 Novolog Vial Sliding Scale - SQ Not Given ACHS [facility] Protocol Lactobacillus Acidophilus 1 tab 12/26/18 10:00 01/03/19 10:54 Bacid - PO 1 tab DAILY [facility] Administration Levothyroxine Sodium 75 mcg 12/26/18 07:00 01/03/19 06:22 Synthroid - PO 75 mcg DAILY@0700 [facility] Administration Lidocaine 1 patch 01/02/19 10:00 01/03/19 10:58 Lidoderm Patch - TP 1 patch DAILY [facility] Administration Metformin HCl 500 mg 12/26/18 07:00 01/03/19 06:22 Glucophage - PO 500 mg DAILY@0700 [facility] Administration Methylprednisolone Sodium Succinate 40 mg 12/30/18 10:00 01/03/19 10:54 Solu-Medrol - IVPUSH 40 mg DAILY [facility] Administration Miscellaneous 1 each 01/01/19 22:00 01/02/19 22:58 Lidoderm Patch Removal MC 1 each DAILY@2200 [facility] Administration Montelukast Sodium 10 mg 12/25/18 22:00 01/02/19 22:55 Singulair - PO 10 mg HS [facility] Administration Oxycodone HCl 5 mg 12/26/18 16:45 01/03/19 05:18 Roxicodone - PO 5 mg Q6H PRN Administration PAIN LEVEL 6-10 Pantoprazole Sodium 20 mg 12/26/18 10:00 01/03/19 11:00 Protonix - PO 20 mg DAILY [facility] Administration Polyethylene Glycol 17 gm 12/26/18 14:30 01/03/19 10:58 Miralax (For Daily Use) - PO 17 grams DAILY [facility] Administration Potassium Chloride 20 meq 01/02/19 14:15 01/03/19 10:55 K-Dur - PO 20 meq DAILY [facility] Administration Roflumilast 500 mcg 12/26/18 10:00 01/03/19 10:56 Daliresp - PO 500 mcg DAILY [facility] Administration Rosuvastatin Calcium 5 mg 12/25/18 22:00 01/02/19 22:55 Crestor - PO 5 mg HS [facility] Administration Sodium Chloride 2 spray 12/25/18 22:00 01/03/19 10:59 [place] Nasal [place] - NS 2 sprays BID [facility] Administration Tiotropium [place] 2 puff 12/26/18 10:00 01/03/19 11:00 Spiriva Respimat IH 2 puff DAILY [facility] Administration A/P Acute on Chronic Hypoxic and Hypercapneic Respiratory Failure Pneumonia/effusions Acute COPD Exacerbation Hypothyroidism NAVDEEP Thoracic/Lumbar Compression Fractures ?Osteoporotic Hyperlipidemia Discussed with radiology Dr Cagle regarding the CT report. Pt has thinning of bone and needs to get Dexa scan to determine Osteoporosis or osteopenia which can't be done as inpatient. Even osteopenia with fractures is an indication for treatment. So will start Fosamax 70mg Q week and get Dexa scan as outpt and modify treatment if necessary. All treatment options including injectables depending on results discussed. Discuseed case with primary. Pt has refused to do MRI even with medication. Start Alendronate 70mg Q week. The hospital pharmacy doesn't carry it and will have to be brought by family from outside pharmacy. Will f/u
--- NOTE | 2019-01-03 12:59 | PN ---
Progress Note (short form) - Note Progress Note: NEUROSURGERY Mostly mid back pain radiating to B ribs Pain better and able to sit up PE: AF, VSS HEENT- NC/At; Neckl- supple; Cor- RR; Lungs- no wheezing; Back- tender at TL junction midline, buttock wound; Ext- ecchymosis and mild edema B UE/LE CN- intact; Motor- 4/5 B UE/LE, back pain limited; Sensation- intact LT, vibration; DTR- 1+ throughout; Cerebellar- intact R buttocks wound- MRSA Multifocal osteoporotic compression (prior smoker, steroid meds) Could consider B L11-T12 and T12-L1 facet blocks when buttock infection is cleared Cont iv abx per ID for R buttock wound infection Brace not helpful previously and unlikely tolerated well given COPD skilled nursing medical tx for osteoporosis Mobilize to reduce rate of progressive osteoporosis Lidoderm patches, neurontin ON Vit D and Ca
[2019-01-03] MEDS: ALBUTEROL SO4 0.083% IH SOL 2.5 MG/3 ML VIAL.NEB. NEB PRN (13:27)
--- NOTE | 2019-01-03 13:32 | PN ---
Progress Note (short form) - Note Progress Note: continued back pain +BM Vital Signs Period Temp Pulse Resp BP Sys/Domínguez Pulse Ox Last 24 Hr 97.6 F-98.5 F 84-121 20-20 105-125/52-68 95-100 cor-rrr lungs decreased bs at bases abd firm, nt ext +ecchymoses unwilling to turn due to pain could not see buttock abscess CBC, BMP 01/02/19 06:15 01/02/19 06:15 Microbiology 12/26/18 15:36 Blood - Peripheral Venous Blood Culture - Final NO GROWTH AFTER 5 DAYS INCUBATION 12/26/18 15:45 Blood - Peripheral Venous Blood Culture - Final NO GROWTH AFTER 5 DAYS INCUBATION 12/26/18 14:00 Buttock - Right Gram Stain - Final 12/26/18 14:00 Buttock - Right Wound Culture - Final S Aureus Laboratory Tests 01/01/19 08:35 Vancomycin Pre-Dose 14.3 L a/p RLL consolidation- she may be having some referred pain from this buttock abscess- MRSA end stage COPD vertebral comp fx t/L spine penicillin allergy management of buttock ulcer per surgery mrsa contact isolation consider pain management evaluation d/c azactam/vancomycin switch to bactrim Problem List - Problems (1) Leukocytosis Code(s): D72.829 - ELEVATED WHITE BLOOD CELL COUNT, UNSPECIFIED (2) Abdominal pain Code(s): R10.9 - UNSPECIFIED ABDOMINAL PAIN (3) Abscess Code(s): L02.91 - CUTANEOUS ABSCESS, UNSPECIFIED (4) Chronic respiratory failure Code(s): J96.10 - CHRONIC RESPIRATORY FAILURE, UNSP W HYPOXIA OR HYPERCAPNIA (5) Penicillin allergy Code(s): Z88.0 - ALLERGY STATUS TO PENICILLIN
[2019-01-03] MEDS: MONTELUKAST NA 10 MG TABLET PO SCH (21:08)
[2019-01-03] MEDS: ROSUVASTATIN CA 5 MG TABLET (FP) PO SCH (21:08)
[2019-01-03] MEDS: LIDOCAINE PATCH REMOVAL MC SCH (21:09)
[2019-01-03] MEDS: SULFAMETHOXAZOLE/TRIMETHOPRIM 800MG/160MG D.S. TABLET PO SCH (21:09)
[2019-01-03] MEDS ORDERED: INSULIN (NOVOLOG) ASPART 100 UNITS/ML 10ML VIAL ONE (21:18)
[2019-01-04] MEDS: oxyCODONE HCL 5 MG TABLET PO PRN ×2 (04:52→22:36)
[2019-01-04] MEDS: LEVOTHYROXINE NA 75 MCG TABLET (FP) PO SCH (06:20)
[2019-01-04] MEDS: GABAPENTIN 300 MG CAPSULE (FP) PO SCH (06:20)
[2019-01-04] MEDS: metFORMIN HCL 500 MG TABLET (FP) PO SCH (06:20)
[2019-01-04] MEDS: INSULIN SLIDING SCALE (NOVOLOG) 1 VIAL SQ SCH ×4 (06:20→22:35)
--- NOTE | 2019-01-04 08:10 | PN ---
Progress Note (short form) - Note Progress Note: NEUROSURGERY Mostly mid back pain radiating to B ribs Able to sit up PE: Tmax 98.8, AF, VSS HEENT- NC/AT; Neck- supple; Cor- RR; Lungs- no wheezing; Back- tender at TL junction midline, buttock wound; Ext- ecchymosis and mild edema B UE/LE CN- intact; Motor- 4/5 B UE/LE, back pain limited; Sensation- intact LT, vibration; DTR- 1+ throughout; Cerebellar- intact R buttocks wound- MRSA Multifocal osteoporotic compression (prior smoker, steroid meds) Could consider intervention when buttock infection is cleared iv abx per ID for R buttock wound infection Brace not helpful previously and unlikely tolerated well given 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
[2019-01-04 08:19] LABS: BASO % 0.6 % (0-2.0); EOS % 0.9 % (0-4.5); HEMOGLOBIN 10.3 GM/dL (10.7-15.3); LYMPH % 5.7 % (8-40); MCH 29.2 pg (25.7-33.7); MCHC 32.3 g/dl (32.0-36.0); MEAN CELL VOLUME 90.6 fl (80-96); MEAN PLT VOLUME 8.1 fl (7.5-11.1); MONO % 6.5 % (3.8-10.2); NEUT % 86.3 % (42.8-82.8); PLATELET COUNT 365 K/MM3 (134-434); RBC 3.53 M/mm3 (3.60-5.2); RDW 15.9 % (11.6-15.6); WHITE BLOOD COUNT 16.1 K/mm3 (4.0-10.0)
[2019-01-04 08:47] LABS: BLOOD UREA NITROGEN 14.4 mg/dL (7-18); CALCIUM 8.8 mg/dL (8.5-10.1); CREATININE 0.4 mg/dL (0.55-1.3); POTASSIUM 4.7 mmol/L (3.5-5.1)
[2019-01-04] MEDS: ARFORMOTEROL TARTRATE 15 MCG/2 ML VIAL NEB SCH ×2 (08:51→20:15)
--- NOTE | 2019-01-04 08:53 | PN ---
Progress Note (short form) - Note Progress Note: Neurology Chief Complaint: low back pain History of Present Illness: 58 year old female with PMH advanced severe COPD on 3-4L O2 24/7, NAVDEEP on CPAP at night, anemia, HTN, GERD, HLD, DM, chronic back pain BIBA to ED from [facility] for increasing SOB x1 - 2 weeks associated with dry cough. Chronic CO2 retainer , Prednisone 5 mg, but was given a higher dose of Prednisone x2 days ago, albuterol nebulizer from [facility], without relief of her symptoms. Pt denied fever , chest pain, sputum production, nausea, vomiting. Pt also complained of her chronic back pain, she applied a lidoderm patch, which she stated she believes made her pain worse. She complains of pain in her abdomen R sided coming from her back; worse with moving. 2 weeks ago became weaker and more SOB; did not get OOB in 1-2 weeks so she started to develop sacral decubs. She had back pain on/off in [place] and she was on oxycodone for awhile; she asked to continue it here ; also on intermediate manager steriods. CT abdoment/pelvis with reported compression fractures in T/L spine. Patient getting physical therapy at [facility], discussed with her treatment options including pain mgmt and surgical evaluation. Consult note reviewed, no plan for drainage of hematoma. L spine Ct completed, report reviewed, confirmed compression fractures, comments that it is worse compared to 06/15/18 imaging. Patient remains uncomfortable this AM. Notes from Dr. Mir reviewed, intervention limited by local infection and concern for seeding. Remains on ABx and getting pain medication. No new neurologic events. Home Medications - Allergies Allergies/Adverse Reactions: Allergies Allergy/AdvReac Type Severity Reaction Status Date / Time Penicillins Allergy Severe Difficulty Verified 12/25/18 15:20 Breathing Active Medications Acetaminophen (Tylenol -) 650 mg PO Q6H PRN PRN Reason: PAIN LEVEL 1-5 Last Admin: 01/03/19 05:17 Dose: 650 mg Al Hydroxide/Mg Hydroxide (Mylanta Oral Suspension -) 30 ml PO QID PRN PRN Reason: GAS Albuterol Sulfate (Ventolin 0.083% Nebulizer Soln -) 1 amp NEB QID PRN PRN Reason: SHORT OF BREATH/WHEEZING Last Admin: 01/03/19 13:27 Dose: 1 amp Arformoterol Tartrate (Brovana (Restricted To Pulmonology/Resp) -) 1 amp NEB RBID [facility] Last Admin: 01/04/19 08:51 Dose: 1 amp Aspirin (Asa -) 81 mg PO DAILY [facility] Last Admin: 01/03/19 10:54 Dose: 81 mg Calcium Carbonate/Cholecalciferol (Os-Elie 500+D -) 1 tab PO DAILY [facility] Last Admin: 01/03/19 10:59 Dose: 1 tab Cholecalciferol (Vitamin D3 -) 2,000 unit PO DAILY [facility] Escitalopram Oxalate (Lexapro -) 10 mg PO DAILY [facility] Last Admin: 01/03/19 14:54 Dose: 5 mg Gabapentin (Neurontin -) 400 mg PO TID [facility] Heparin Sodium (Porcine) (Heparin -) 5,000 unit SQ BID [facility] Last Admin: 01/03/19 21:09 Dose: 5,000 unit Insulin Aspart (Novolog Vial Sliding Scale -) 1 vial SQ [facility]; Protocol Last Admin: 01/04/19 06:20 Dose: Not Given Lactobacillus Acidophilus (Bacid -) 1 tab PO DAILY [facility] Last Admin: 01/03/19 10:54 Dose: 1 tab Levothyroxine Sodium (Synthroid -) 75 mcg PO DAILY@0700 [facility] Last Admin: 01/04/19 06:20 Dose: 75 mcg Lidocaine (Lidoderm Patch -) 1 patch TP DAILY [facility] Last Admin: 01/03/19 10:58 Dose: 1 patch Metformin HCl (Glucophage -) 500 mg PO DAILY@0700 [facility] Last Admin: 01/04/19 06:20 Dose: 500 mg Methylprednisolone Sodium Succinate (Solu-Medrol -) 40 mg IVPUSH DAILY [facility] Last Admin: 01/03/19 10:54 Dose: 40 mg Miscellaneous (Lidoderm Patch Removal) 1 each MC DAILY@2200 [facility] Last Admin: 01/03/19 21:09 Dose: 1 each Montelukast Sodium (Singulair -) 10 mg PO HS [facility] Last Admin: 01/03/19 21:08 Dose: 10 mg Oxycodone HCl (Roxicodone -) 5 mg PO Q6H PRN PRN Reason: PAIN LEVEL 6-10 Last Admin: 01/04/19 04:52 Dose: 5 mg Pantoprazole Sodium (Protonix -) 20 mg PO DAILY [facility] Last Admin: 01/03/19 11:00 Dose: 20 mg Polyethylene Glycol (Miralax (For Daily Use) -) 17 gm PO DAILY [facility] Last Admin: 01/03/19 10:58 Dose: 17 grams Potassium Chloride (K-Dur -) 20 meq PO DAILY [facility] Last Admin: 01/03/19 10:55 Dose: 20 meq Roflumilast (Daliresp -) 500 mcg PO DAILY [facility] Last Admin: 01/03/19 10:56 Dose: 500 mcg Rosuvastatin Calcium (Crestor -) 5 mg PO HS [facility] Last Admin: 01/03/19 21:08 Dose: 5 mg Sodium Chloride ([place] Nasal [place] -) 2 spray NS BID [facility] Last Admin: 01/03/19 21:24 Dose: 2 sprays Tiotropium [place] (Spiriva Respimat) 2 puff IH DAILY [facility] Last Admin: 01/03/19 11:00 Dose: 2 puff Trimethoprim/Sulfamethoxazole (Bactrim Ds -) 1 each PO BID [facility] Last Admin: 01/03/19 21:09 Dose: 1 each Physical Examination Vital Signs: Vital Signs Period Temp Pulse Resp BP Sys/Domínguez Pulse Ox Last 24 Hr 97.8 F-98.8 F 98-118 18-20 120-129/52-72 95-95 Constitutional: Yes: No Distress, Calm Eyes: Yes: Conjunctiva Clear HENT: Yes: Atraumatic Neck: Yes: Supple Cardiovascular: Yes: Regular Rate and Rhythm Respiratory: Yes: Diminished Gastrointestinal: Yes: Soft. No: Distention, Tenderness Renal/: No: CVA Tenderness - Left, CVA Tenderness - Right, Hematuria Musculoskeletal: No: Joint Stiffness, Joint Swelling Extremities: No: Cold, Cool, Cyanosis Edema: No Integumentary: No: Venous Stasis Changes Wound/Incision: Yes: Other (sacral decubs R sided closed, L sided 2 open lesions ) Neurological: Cn intact no facial droop or slurred speech, Lower extr 5-/5, UE 5 /5, sensory reduced to Lt in distal LE, gait deferred CBCD WBC 16.1 K/mm3 (4.0-10.0) H 01/04/19 07:42 RBC 3.53 M/mm3 (3.60-5.2) L 01/04/19 07:42 Hgb 10.3 GM/dL (10.7-15.3) L 01/04/19 07:42 Hct 32.0 % (32.4-45.2) L 01/04/19 07:42 MCV 90.6 fl (80-96) 01/04/19 07:42 MCHC 32.3 g/dl (32.0-36.0) 01/04/19 07:42 RDW 15.9 % (11.6-15.6) H 01/04/19 07:42 Plt Count 365 K/MM3 (134-434) 01/04/19 07:42 MPV 8.1 fl (7.5-11.1) 01/04/19 07:42 CMP Sodium 140 mmol/L (136-145) 01/04/19 07:42 Potassium 4.7 mmol/L (3.5-5.1) 01/04/19 07:42 Chloride 96 mmol/L (98-107) L 01/04/19 07:42 Carbon Dioxide 41 mmol/L (21-32) H 01/04/19 07:42 Anion Gap 2 MMOL/L (8-16) L 01/04/19 07:42 BUN 14.4 mg/dL (7-18) 01/04/19 07:42 Creatinine 0.4 mg/dL (0.55-1.3) L 01/04/19 07:42 Random Glucose 99 mg/dL (74-106) 01/04/19 07:42 Calcium 8.8 mg/dL (8.5-10.1) 01/04/19 07:42 Total Bilirubin 0.4 mg/dL (0.2-1) 01/02/19 06:15 AST 14 U/L (15-37) L 01/02/19 06:15 ALT 22 U/L (13-61) 01/02/19 06:15 Alkaline Phosphatase 140 U/L (45-117) H 01/02/19 06:15 Total Protein 6.0 g/dl (6.4-8.2) L 01/02/19 06:15 Albumin 2.8 g/dl (3.4-5.0) L 01/02/19 06:15 CARDIAC ENZYMES Creatine Kinase 51 U/L (26-192) 12/26/18 06:40 Troponin I < 0.02 ng/ml (0.00-0.05) 12/26/18 06:40 Assessment/Plan 58 year old female with PMH advanced severe COPD on 3-4L O2 19/01, NAVDEEP on CPAP at night, anemia, HTN, GERD, HLD, DM, chronic back pain BIBA to ED from [facility] for increasing SOB x1 - 2 weeks associated with dry cough. Chronic CO2 retainer , Prednisone 5 mg, but was given a higher dose of Prednisone x2 days ago, albuterol nebulizer from [facility], without relief of her symptoms. Pt denied fever , chest pain, sputum production, nausea, vomiting. Pt also complained of her chronic back pain, she applied a lidoderm patch, which she stated she believes made her pain worse. She complains of pain in her abdomen R sided coming from her back; worse with moving. 2 weeks ago became weaker and more SOB; did not get OOB in 1-2 weeks so she started to develop sacral decubs. She had back pain on/off in [place] and she was on oxycodone for awhile; she asked to continue it here ; also on mcc steriods. CT abdoment/pelvis with reported compression fractures in T/L spine. Patient getting physical therapy at [facility], discussed with her treatment options including pain mgmt and surgical evaluation. Consult note reviewed, no plan for drainage of hematoma. L spine Ct completed, report reviewed, confirmed compression fractures, comments that it is worse compared to 06/15/18 imaging. NSGY notes reviewed, intervention limited by local wound and concern for seeding. Continue Abx and pain mgmt. Physical therapy as tolerated. Fall precautions. Possibly for rehab when able.
--- NOTE | 2019-01-04 09:12 | DS ---
Physical Examination Vital Signs: Vital Signs Temperature 97.8 F 01/04/19 06:00 Pulse Rate 98 H 01/04/19 06:00 Respiratory Rate 18 01/04/19 06:00 Blood Pressure 124/62 01/04/19 06:00 O2 Sat by Pulse Oximetry (%) 95 01/03/19 20:12 Labs: CBC, BMP 01/04/19 07:42 01/04/19 07:42 Discharge Summary Reason For Visit: SHORTNESS OF BREATH,LEUKOCYTOSIS,PNEUMONIA Current Active Problems Abdominal pain (Acute) Abscess (Acute) COPD exacerbation (Acute) Chronic respiratory failure (Acute) Compression fracture (Acute) Cough (Acute) Leukocytosis (Acute) Penicillin allergy (Acute) Pleural effusion (Acute) Shortness of breath (Acute) Traumatic hematoma of buttock (Acute) Condition: Stable - Instructions Diet, Activity, Other Instructions: f/u Neurosurgery dr Ashu Mir and Interventional Radiology dr Cortez for possible spine INJECTION / kyphoplasty when MRSA infection/ wound cleared; start Fosamax 70 mg po/week for Osteoporosis f/u per protocol pulmonary f/u dr Parrish; to d/w pulmonary about lung transplant eval cardiology, endocrine, wound care f/u; PT rehab, falls PFX f/u labs CBC CMP 1-2 weeks. health maintenance pap [employer]OM[employer] GI colonoscopy mammogram per PCP Disposition: [facility] - Home Medications Comprehensive Discharge Medication List: Ambulatory Orders Roflumilast [Daliresp] 500 mcg PO DAILY #30 tablet 06/24/17 Montelukast Sodium [Singulair] 10 mg PO HS 04/05/18 Rosuvastatin [Crestor -] 5 mg PO HS 04/05/18 Albuterol 0.083% Nebulizer [place] [Ventolin 0.083% Nebulizer Soln -] 1 amp NEB QID PRN 05/06/18 Insulin Sliding Scale [Novolog Vial Sliding Scale -] 1 vial SQ ACHS units 06/10 Lactobacillus Acidophilus [Bacid -] 1 tab PO DAILY tab 06/10/18 Pantoprazole Sodium [Protonix -] 20 mg PO DAILY tablet.ec 06/10/18 Sodium Chloride Nasal [place] [[place] Nasal [place] -] 2 spray NS BID spray Tiotropium [place] [Spiriva Respimat] 2 puff IH DAILY inhaler 06/10/18 Heparin - 5,000 unit SQ BID vial 06/17/18 Losartan Potassium [Cozaar -] 25 mg PO DAILY tablet 06/17/18 Arformoterol Tartrate [Brovana -] 1 amp NEB BID 12/25/18 Aspirin [ASA -] 81 mg PO DAILY 12/25/18 Desloratadine/Pseudoephedrine [Clarinex-D 12 Hour Tablet] 1 tab PO DAILY Escitalopram Oxalate [Lexapro -] 5 mg PO DAILY 12/25/18 Fluticasone/Salmeterol [Advair 250-50 Diskus] 1 inh PO BID 12/25/18 Ibuprofen [Advil -] 200 mg PO TID 12/25/18 Levothyroxine [Synthroid -] 75 mcg PO DAILY@0700 12/25/18 Mag Hydrox/Al Hydrox/Simeth [Mylanta Oral Suspension -] 30 ml PO QID PRN Oxycodone HCl 5 mg PO 12/25/18 metFORMIN HCL [Glucophage -] 500 mg PO DAILY 12/25/18 predniSONE [Deltasone -] 10 mg PO BID 12/25/18
--- NOTE | 2019-01-04 09:39 | PN ---
Progress Note (short form) - Note Progress Note: Reports breathing feels stable. No increase in shortness of breath, cough or wheezing. Persistent back pain. Intake & Output 01/01/19 01/02/19 01/03/19 01/04/19 23:59 23:59 23:59 23:59 Intake Total 0833 403 9825 Output Total 750 300 300 Balance 535 585 1766 Weight 133 lb 8 oz 134 lb 130 lb 9.6 oz 132 lb 1 oz Last Vital Signs Temp Pulse Resp BP Pulse Ox 97.8 F 98 H 18 124/62 95 01/04/19 06:00 01/04/19 06:00 01/04/19 06:00 01/04/19 06:00 01/03/19 20:12 Active Medications Acetaminophen (Tylenol -) 650 mg PO Q6H PRN PRN Reason: PAIN LEVEL 1-5 Last Admin: 01/03/19 05:17 Dose: 650 mg Al Hydroxide/Mg Hydroxide (Mylanta Oral Suspension -) 30 ml PO QID PRN PRN Reason: GAS Albuterol Sulfate (Ventolin 0.083% Nebulizer Soln -) 1 amp NEB QID PRN PRN Reason: SHORT OF BREATH/WHEEZING Last Admin: 01/03/19 13:27 Dose: 1 amp Arformoterol Tartrate (Brovana (Restricted To Pulmonology/Resp) -) 1 amp NEB RBID [facility] Last Admin: 01/04/19 08:51 Dose: 1 amp Aspirin (Asa -) 81 mg PO DAILY [facility] Last Admin: 01/03/19 10:54 Dose: 81 mg Calcium Carbonate/Cholecalciferol (Os-Elie 500+D -) 1 tab PO DAILY [facility] Last Admin: 01/03/19 10:59 Dose: 1 tab Cholecalciferol (Vitamin D3 -) 2,000 unit PO DAILY [facility] Escitalopram Oxalate (Lexapro -) 10 mg PO DAILY [facility] Last Admin: 01/03/19 14:54 Dose: 5 mg Gabapentin (Neurontin -) 400 mg PO TID [facility] Heparin Sodium (Porcine) (Heparin -) 5,000 unit SQ BID [facility] Last Admin: 01/03/19 21:09 Dose: 5,000 unit Insulin Aspart (Novolog Vial Sliding Scale -) 1 vial SQ ACHS [facility]; Protocol Last Admin: 01/04/19 06:20 Dose: Not Given Lactobacillus Acidophilus (Bacid -) 1 tab PO DAILY [facility] Last Admin: 01/03/19 10:54 Dose: 1 tab Levothyroxine Sodium (Synthroid -) 75 mcg PO DAILY@0700 [facility] Last Admin: 01/04/19 06:20 Dose: 75 mcg Lidocaine (Lidoderm Patch -) 1 patch TP DAILY [facility] Last Admin: 01/03/19 10:58 Dose: 1 patch Metformin HCl (Glucophage -) 500 mg PO DAILY@0700 [facility] Last Admin: 01/04/19 06:20 Dose: 500 mg Methylprednisolone Sodium Succinate (Solu-Medrol -) 40 mg IVPUSH DAILY [facility] Last Admin: 01/03/19 10:54 Dose: 40 mg Miscellaneous (Lidoderm Patch Removal) 1 each MC DAILY@2200 [facility] Last Admin: 01/03/19 21:09 Dose: 1 each Montelukast Sodium (Singulair -) 10 mg PO [facility] Last Admin: 01/03/19 21:08 Dose: 10 mg Oxycodone HCl (Roxicodone -) 5 mg PO Q6H PRN PRN Reason: PAIN LEVEL 6-10 Last Admin: 01/04/19 04:52 Dose: 5 mg Pantoprazole Sodium (Protonix -) 20 mg PO DAILY [facility] Last Admin: 01/03/19 11:00 Dose: 20 mg Polyethylene Glycol (Miralax (For Daily Use) -) 17 gm PO DAILY [facility] Last Admin: 01/03/19 10:58 Dose: 17 grams Roflumilast (Daliresp -) 500 mcg PO DAILY [facility] Last Admin: 01/03/19 10:56 Dose: 500 mcg Rosuvastatin Calcium (Crestor -) 5 mg PO [facility] Last Admin: 01/03/19 21:08 Dose: 5 mg Sodium Chloride ([place] Nasal [place] -) 2 spray NS BID [facility] Last Admin: 01/03/19 21:24 Dose: 2 sprays Tiotropium [place] (Spiriva Respimat) 2 puff IH DAILY [facility] Last Admin: 01/03/19 11:00 Dose: 2 puff Trimethoprim/Sulfamethoxazole (Bactrim Ds -) 1 each PO BID [facility] Last Admin: 01/03/19 21:09 Dose: 1 each Constitutional: Yes: Cushinoid, No Distress Eyes: Yes: Conjunctiva Clear HENT: Yes: Atraumatic Neck: Yes: Supple Cardiovascular: Yes: Regular Rate and Rhythm Respiratory: Yes: diminished throughout Gastrointestinal: Yes: Soft. No: Tenderness Genitourinary: No: CVA Tenderness - Left, CVA Tenderness - Right Musculoskeletal: No: Joint Stiffness, Joint Swelling Extremities: No: Calf Tenderness, Cold, Cool, Cyanosis Edema: No Integumentary: Yes: Pressure Ulcer. No: Rash, Venous Stasis Changes Neurological: Yes: WNL, Alert, Oriented ...Motor Strength: WNL Psychiatric: Yes: WNL, Alert, Oriented. Labs: Laboratory Results - last 24 hr 12/31/18 01/03/19 01/03/19 07:52 11:13 17:34 WBC RBC Hgb Hct MCV MCH MCHC RDW Plt Count MPV Absolute Neuts (auto) Neutrophils % Lymphocytes % Monocytes % Eosinophils % Basophils % Nucleated RBC % Sodium Potassium Chloride Carbon Dioxide Anion Gap BUN Creatinine Est GFR (CKD-EPI)AfAm Est GFR (CKD-EPI)NonAf POC Glucometer 132 180 Random Glucose Calcium Serum WENDY Interpret IEP IgG 417 L IEP IgA 86 L IEP IgM 43 01/03/19 01/04/19 01/04/19 21:09 06:19 07:42 WBC 16.1 H RBC 3.53 L Hgb 10.3 L Hct 32.0 L MCV 90.6 MCH 29.2 MCHC 32.3 RDW 15.9 H Plt Count 365 MPV 8.1 Absolute Neuts (auto) 13.9 H Neutrophils % 86.3 H Lymphocytes % 5.7 L D Monocytes % 6.5 Eosinophils % 0.9 D Basophils % 0.6 Nucleated RBC % 0 Sodium Potassium Chloride Carbon Dioxide Anion Gap BUN Creatinine Est GFR (CKD-EPI)AfAm Est GFR (CKD-EPI)NonAf POC Glucometer 157 104 Random Glucose Calcium Serum WENDY Interpret IEP IgG IEP IgA IEP IgM 01/04/19 07:42 WBC RBC Hgb Hct MCV MCH MCHC RDW Plt Count MPV Absolute Neuts (auto) Neutrophils % Lymphocytes % Monocytes % Eosinophils % Basophils % Nucleated RBC % Sodium 140 Potassium 4.7 Chloride 96 L Carbon Dioxide 41 H Anion Gap 2 L BUN 14.4 Creatinine 0.4 L Est GFR (CKD-EPI)AfAm 134.95 Est GFR (CKD-EPI)NonAf 116.43 POC Glucometer Random Glucose 99 Calcium 8.8 Serum WENDY Interpret IEP IgG IEP IgA IEP IgM IMP: Acute on Chronic Hypoxic and Hypercapneic Respiratory Failure Pneumonia/effusions Acute COPD Exacerbation LV Diastolic Dysfunction Hypothyroidism NAVDEEP Thoracic/Lumbar Compression Fractures Hyperlipidemia - pain control - inhaled bronchodilators - O2 to keep SpO2 >90% - Patient already has a Triology device for respiratory support - DVT prophylaxis - D/C planning Dr Jennings
[2019-01-04] MEDS: PANTOPRAZOLE 20 MG TABLET (FP) PO SCH (10:15)
[2019-01-04] MEDS: CHOLECALCIFEROL (VIT D3) 1,000 UNIT (25 MCG) TABLET PO SCH (10:16)
[2019-01-04] MEDS: methylPREDNISolone NA SUCC 40 MG/1 ML VIAL IVPUSH SCH (10:16)
[2019-01-04] MEDS: ESCITALOPRAM OXALATE 10 MG TABLET (FP) PO SCH (10:16)
[2019-01-04] MEDS: SULFAMETHOXAZOLE/TRIMETHOPRIM 800MG/160MG D.S. TABLET PO SCH ×2 (10:16→22:35)
[2019-01-04] MEDS: LIDOCAINE 5% TOPICAL PATCH TP SCH (10:17)
[2019-01-04] MEDS: HEPARIN NA (PORCINE) 5,000 UNITS/ML 1ML VIAL SQ SCH ×2 (10:17→22:35)
[2019-01-04] MEDS: ROFLUMILAST 500 MCG TABLET PO SCH (10:17)
[2019-01-04] MEDS: LACTOBACILLUS ACIDOPHILUS 1 TABLET PO SCH (10:18)
[2019-01-04] MEDS: POLYETHYLENE GLYCOL 3350 119 GM BTL PO SCH (10:19)
[2019-01-04] MEDS: CALCIUM 500MG/VIT-D 200 UNITS COMBO TABLET (FP) PO SCH (10:19)
[2019-01-04] MEDS: ASPIRIN 81 MG CHEWABLE TABLETS PO SCH (10:19)
[2019-01-04] MEDS: TIOTROPIUM BROMIDE 2.5 MCG (SPIRIVA) RESPIMAT INHALER IH SCH (10:20)
[2019-01-04] MEDS: SODIUM CHLORIDE NASAL SPRAY 44 ML BOTTLE NS SCH ×2 (10:20→22:40)
[2019-01-04] MEDS ORDERED: PT OWN MED DRAWER 7, Y5N ONE (10:34)
[2019-01-04 10:37] LABS: ANISOCYTOSIS 1+; MACROCYTOSIS 0; PLATELET ESTIMATE NORMAL
[2019-01-04] MEDS: GABAPENTIN 400 MG CAPSULE (FP) PO SCH ×2 (14:21→22:35)
[2019-01-04] MEDS ORDERED: INSULIN (NOVOLOG) ASPART 100 UNITS/ML 10ML VIAL ONE (21:08)
[2019-01-04] MEDS: ROSUVASTATIN CA 5 MG TABLET (FP) PO SCH (22:35)
[2019-01-04] MEDS: MONTELUKAST NA 10 MG TABLET PO SCH (22:35)
[2019-01-04] MEDS: ACETAMINOPHEN 325 MG TABLET (FP) PO PRN (22:36)
[2019-01-04] MEDS: LIDOCAINE PATCH REMOVAL MC SCH (22:42)
--- NOTE | 2019-01-04 22:42 | PN ---
Progress Note, Physician Chief Complaint: in bed still with back pain when moving; neurontin dose increased Not able to do BDT inpt nor to order fosamax as inpt; to be done as outpt d/w pt wound better on po ATB dw dr Jennings switch to po steroids then taper doses as tolerated. Pt to follow with pulmonary for outpt lung transplant eval - Current Medication List Current Medications: Active Medications Acetaminophen (Tylenol -) 650 mg PO Q6H PRN PRN Reason: PAIN LEVEL 1-5 Last Admin: 01/03/19 05:17 Dose: 650 mg Al Hydroxide/Mg Hydroxide (Mylanta Oral Suspension -) 30 ml PO QID PRN PRN Reason: GAS Albuterol Sulfate (Ventolin 0.083% Nebulizer Soln -) 1 amp NEB QID PRN PRN Reason: SHORT OF BREATH/WHEEZING Last Admin: 01/03/19 13:27 Dose: 1 amp Arformoterol Tartrate (Brovana (Restricted To Pulmonology/Resp) -) 1 amp NEB RBID [facility] Last Admin: 01/04/19 20:15 Dose: 1 amp Aspirin (Asa -) 81 mg PO DAILY [facility] Last Admin: 01/04/19 10:19 Dose: 81 mg Calcium Carbonate/Cholecalciferol (Os-Elie 500+D -) 1 tab PO DAILY [facility] Last Admin: 01/04/19 10:19 Dose: 1 tab Cholecalciferol (Vitamin D3 -) 2,000 unit PO DAILY [facility] Last Admin: 01/04/19 10:16 Dose: 2,000 unit Escitalopram Oxalate (Lexapro -) 10 mg PO DAILY [facility] Last Admin: 01/04/19 10:16 Dose: 10 mg Gabapentin (Neurontin -) 400 mg PO TID [facility] Last Admin: 01/04/19 14:21 Dose: 400 mg Heparin Sodium (Porcine) (Heparin -) 5,000 unit SQ BID [facility] Last Admin: 01/04/19 10:17 Dose: 5,000 unit Insulin Aspart (Novolog Vial Sliding Scale -) 1 vial SQ ACHS [facility]; Protocol Last Admin: 01/04/19 17:50 Dose: 2 units Lactobacillus Acidophilus (Bacid -) 1 tab PO DAILY [facility] Last Admin: 01/04/19 10:18 Dose: 1 tab Levothyroxine Sodium (Synthroid -) 75 mcg PO DAILY@0700 [facility] Last Admin: 01/04/19 06:20 Dose: 75 mcg Lidocaine (Lidoderm Patch -) 1 patch TP DAILY [facility] Last Admin: 01/04/19 10:17 Dose: 1 patch Metformin HCl (Glucophage -) 500 mg PO DAILY@0700 [facility] Last Admin: 01/04/19 06:20 Dose: 500 mg Miscellaneous (Lidoderm Patch Removal) 1 each MC DAILY@2200 [facility] Last Admin: 01/03/19 21:09 Dose: 1 each Montelukast Sodium (Singulair -) 10 mg PO [facility] Last Admin: 01/03/19 21:08 Dose: 10 mg Oxycodone HCl (Roxicodone -) 5 mg PO Q6H PRN PRN Reason: PAIN LEVEL 6-10 Last Admin: 01/04/19 04:52 Dose: 5 mg Pantoprazole Sodium (Protonix -) 20 mg PO DAILY [facility] Last Admin: 01/04/19 10:15 Dose: 20 mg Polyethylene Glycol (Miralax (For Daily Use) -) 17 gm PO DAILY [facility] Last Admin: 01/04/19 10:19 Dose: Not Given Prednisone (Deltasone -) 40 mg PO DAILY [facility] Roflumilast (Daliresp -) 500 mcg PO DAILY [facility] Last Admin: 01/04/19 10:17 Dose: 500 mcg Rosuvastatin Calcium (Crestor -) 5 mg PO [facility] Last Admin: 01/03/19 21:08 Dose: 5 mg Sodium Chloride ([place] Nasal [place] -) 2 spray NS BID [facility] Last Admin: 01/04/19 10:20 Dose: 2 sprays Tiotropium [place] (Spiriva Respimat) 2 puff IH DAILY [facility] Last Admin: 01/04/19 10:20 Dose: 2 puff Trimethoprim/Sulfamethoxazole (Bactrim Ds -) 1 each PO BID [facility] Last Admin: 01/04/19 10:16 Dose: 1 each - Objective Vital Signs: Vital Signs Temperature 98.7 F 01/04/19 16:57 Pulse Rate 110 H 01/04/19 16:57 Respiratory Rate 20 01/04/19 16:57 Blood Pressure 137/74 01/04/19 16:57 O2 Sat by Pulse Oximetry (%) 98 01/04/19 09:00 Constitutional: Yes: No Distress, Anxious Eyes: Yes: Conjunctiva Clear HENT: Yes: Atraumatic Neck: Yes: Supple Cardiovascular: Yes: Regular Rate and Rhythm Respiratory: Yes: CTA Bilaterally Gastrointestinal: Yes: Soft. No: Tenderness Genitourinary: No: CVA Tenderness - Left, CVA Tenderness - Right Musculoskeletal: No: Joint Stiffness, Joint Swelling Extremities: No: Calf Tenderness, Cold, Cool, Cyanosis Edema: No Integumentary: Yes: Bruising, Pressure Ulcer (much better and improved). No: Rash Neurological: Yes: WNL, Alert, Oriented ...Motor Strength: WNL Psychiatric: Yes: WNL, Alert, Oriented. No: Agitated Labs: CBC, BMP 01/04/19 07:42 01/04/19 07:42 INR, PTT INR 0.92 (0.83-1.09) 01/02/19 06:15 - ....Imaging Other: Report Reviewed Assessment/Plan 58 year old female with PMH advanced severe COPD on 3-4L O2 /, NAVDEEP on CPAP at night, anemia, HTN, GERD, HLD, DM, chronic back pain admitted with COPD exac and PNA, back pain OP compression fractures, high WBC, decubs; po ATB per ID; po steroids tapered as tolerated; pulm f/u neurontin, lidoderm for vertebral compression fractures and back pain; d/w pt to f/u with NS dr Mir and IR dr Carter after infection cleared, might benefit from INJ / kyphoplasty endocrine f/u OP tx - outpt BDT and fosamax treatment oxycodone prn; stools softeners prn DC back to SNF when cleared by ID and pulmonary d/w pt and staff; pt agreed with plan
[2019-01-05] MEDS: INSULIN SLIDING SCALE (NOVOLOG) 1 VIAL SQ SCH ×3 (06:54→18:26)
[2019-01-05] MEDS: GABAPENTIN 400 MG CAPSULE (FP) PO SCH (06:54)
[2019-01-05] MEDS: metFORMIN HCL 500 MG TABLET (FP) PO SCH (06:54)
[2019-01-05] MEDS: LEVOTHYROXINE NA 75 MCG TABLET (FP) PO SCH (06:54)
[2019-01-05] MEDS: ACETAMINOPHEN 325 MG TABLET (FP) PO PRN (06:59)
[2019-01-05] MEDS: oxyCODONE HCL 5 MG TABLET PO PRN (07:00)
[2019-01-05] MEDS: ARFORMOTEROL TARTRATE 15 MCG/2 ML VIAL NEB SCH ×2 (07:45→21:06)
--- NOTE | 2019-01-05 08:14 | PN ---
Progress Note (short form) - Note Progress Note: NEUROSURGERY Pain stable PE: Tmax 97.3, AF, VSS HEENT- NC/AT; Neck- supple; Cor- RR; Lungs- no wheezing; Back- tender at TL junction midline, buttock wound; Ext- ecchymosis and mild edema B UE/LE CN- intact; Motor- 4/5 B UE/LE, back pain limited; Sensation- intact LT, vibration; DTR- 1+ throughout; Cerebellar- intact R buttocks wound- MRSA Multifocal osteoporotic compression Could consider intervention when buttock infection is cleared On Bactrim per ID for R buttock wound infection group home medical tx for osteoporosis outpatient per medical team Encouraged mobilization to reduce rate of progressive osteoporosis On neurontin 400 mg tid ON Vit D and Ca Return to rehab for further mobilization
--- NOTE | 2019-01-05 08:55 | PN ---
Progress Note (short form) - Note Progress Note: Neurology Chief Complaint: low back pain History of Present Illness: 58 year old female with PMH advanced severe COPD on 3-4L O2 24/7, NAVDEEP on CPAP at night, anemia, HTN, GERD, HLD, DM, chronic back pain BIBA to ED from [facility] for increasing SOB x1 - 2 weeks associated with dry cough. Chronic CO2 retainer , Prednisone 5 mg, but was given a higher dose of Prednisone x2 days ago, albuterol nebulizer from [facility], without relief of her symptoms. Pt denied fever , chest pain, sputum production, nausea, vomiting. Pt also complained of her chronic back pain, she applied a lidoderm patch, which she stated she believes made her pain worse. She complains of pain in her abdomen R sided coming from her back; worse with moving. 2 weeks ago became weaker and more SOB; did not get OOB in 1-2 weeks so she started to develop sacral decubs. She had back pain on/off in [place] and she was on oxycodone for awhile; she asked to continue it here ; also on biology specialist steriods. CT abdoment/pelvis with reported compression fractures in T/L spine. Patient getting physical therapy at [facility], discussed with her treatment options including pain mgmt and surgical evaluation. Consult note reviewed, no plan for drainage of hematoma. L spine Ct completed, report reviewed, confirmed compression fractures, comments that it is worse compared to 06/15/[address] Mir reviewed, intervention limited by local infection and concern for seeding. Remains on ABx and getting pain medication. Slightly more comfortable this AM. Home Medications - Allergies Allergies/Adverse Reactions: Allergies Allergy/AdvReac Type Severity Reaction Status Date / Time Penicillins Allergy Severe Difficulty Verified 12/25/18 15:20 Breathing Active Medications Acetaminophen (Tylenol -) 650 mg PO Q6H PRN PRN Reason: PAIN LEVEL 1-5 Last Admin: 01/05/19 06:59 Dose: 650 mg Al Hydroxide/Mg Hydroxide (Mylanta Oral Suspension -) 30 ml PO QID PRN PRN Reason: GAS Albuterol Sulfate (Ventolin 0.083% Nebulizer Soln -) 1 amp NEB QID PRN PRN Reason: SHORT OF BREATH/WHEEZING Last Admin: 01/03/19 13:27 Dose: 1 amp Arformoterol Tartrate (Brovana (Restricted To Pulmonology/Resp) -) 1 amp NEB RBID [facility] Last Admin: 01/04/19 20:15 Dose: 1 amp Aspirin (Asa -) 81 mg PO DAILY [facility] Last Admin: 01/04/19 10:19 Dose: 81 mg Calcium Carbonate/Cholecalciferol (Os-Elie 500+D -) 1 tab PO DAILY [facility] Last Admin: 01/04/19 10:19 Dose: 1 tab Cholecalciferol (Vitamin D3 -) 2,000 unit PO DAILY [facility] Last Admin: 01/04/19 10:16 Dose: 2,000 unit Escitalopram Oxalate (Lexapro -) 10 mg PO DAILY [facility] Last Admin: 01/04/19 10:16 Dose: 10 mg Gabapentin (Neurontin -) 400 mg PO TID [facility] Last Admin: 01/05/19 06:54 Dose: 400 mg Heparin Sodium (Porcine) (Heparin -) 5,000 unit SQ BID [facility] Last Admin: 01/04/19 22:35 Dose: 5,000 unit Insulin Aspart (Novolog Vial Sliding Scale -) 1 vial SQ [facility]; Protocol Last Admin: 01/05/19 06:54 Dose: Not Given Lactobacillus Acidophilus (Bacid -) 1 tab PO DAILY [facility] Last Admin: 01/04/19 10:18 Dose: 1 tab Levothyroxine Sodium (Synthroid -) 75 mcg PO DAILY@0700 [facility] Last Admin: 01/05/19 06:54 Dose: 75 mcg Lidocaine (Lidoderm Patch -) 1 patch TP DAILY [facility] Last Admin: 01/04/19 10:17 Dose: 1 patch Metformin HCl (Glucophage -) 500 mg PO DAILY@0700 [facility] Last Admin: 01/05/19 06:54 Dose: Not Given Miscellaneous (Lidoderm Patch Removal) 1 each MC DAILY@2200 [facility] Last Admin: 01/04/19 22:42 Dose: 1 each Montelukast Sodium (Singulair -) 10 mg PO HS [facility] Last Admin: 01/04/19 22:35 Dose: 10 mg Oxycodone HCl (Roxicodone -) 5 mg PO Q6H PRN PRN Reason: PAIN LEVEL 6-10 Last Admin: 01/05/19 07:00 Dose: 5 mg Pantoprazole Sodium (Protonix -) 20 mg PO DAILY [facility] Last Admin: 01/04/19 10:15 Dose: 20 mg Polyethylene Glycol (Miralax (For Daily Use) -) 17 gm PO DAILY [facility] Last Admin: 01/04/19 10:19 Dose: Not Given Prednisone (Deltasone -) 40 mg PO DAILY [facility] Roflumilast (Daliresp -) 500 mcg PO DAILY [facility] Last Admin: 01/04/19 10:17 Dose: 500 mcg Rosuvastatin Calcium (Crestor -) 5 mg PO HS [facility] Last Admin: 01/04/19 22:35 Dose: 5 mg Sodium Chloride ([place] Nasal [place] -) 2 spray NS BID [facility] Last Admin: 01/04/19 22:40 Dose: 2 sprays Tiotropium [place] (Spiriva Respimat) 2 puff IH DAILY [facility] Last Admin: 01/04/19 10:20 Dose: 2 puff Trimethoprim/Sulfamethoxazole (Bactrim Ds -) 1 each PO BID [facility] Last Admin: 01/04/19 22:35 Dose: 1 each Physical Examination Vital Signs: Vital Signs Period Temp Pulse Resp BP Sys/Domínguez Pulse Ox Last 24 Hr 97.9 F-98.7 F 87-110 20-22 127-137/52-74 97-98 Constitutional: Yes: No Distress, Calm Eyes: Yes: Conjunctiva Clear HENT: Yes: Atraumatic Neck: Yes: Supple Cardiovascular: Yes: Regular Rate and Rhythm Respiratory: Yes: Diminished Gastrointestinal: Yes: Soft. No: Distention, Tenderness Renal/: No: CVA Tenderness - Left, CVA Tenderness - Right, Hematuria Musculoskeletal: No: Joint Stiffness, Joint Swelling Extremities: No: Cold, Cool, Cyanosis Edema: No Integumentary: No: Venous Stasis Changes Wound/Incision: Yes: Other (sacral decubs R sided closed, L sided 2 open lesions ) Neurological: Cn intact no facial droop or slurred speech, Lower extr 5-/5, UE 5 /5, sensory reduced to Lt in distal LE, gait deferred CBCD WBC 16.1 K/mm3 (4.0-10.0) H 01/04/19 07:42 RBC 3.53 M/mm3 (3.60-5.2) L 01/04/19 07:42 Hgb 10.3 GM/dL (10.7-15.3) L 01/04/19 07:42 Hct 32.0 % (32.4-45.2) L 01/04/19 07:42 MCV 90.6 fl (80-96) 01/04/19 07:42 MCHC 32.3 g/dl (32.0-36.0) 01/04/19 07:42 RDW 15.9 % (11.6-15.6) H 01/04/19 07:42 Plt Count 365 K/MM3 (134-434) 01/04/19 07:42 MPV 8.1 fl (7.5-11.1) 01/04/19 07:42 CMP Sodium 140 mmol/L (136-145) 01/04/19 07:42 Potassium 4.7 mmol/L (3.5-5.1) 01/04/19 07:42 Chloride 96 mmol/L (98-107) L 01/04/19 07:42 Carbon Dioxide 41 mmol/L (21-32) H 01/04/19 07:42 Anion Gap 2 MMOL/L (8-16) L 01/04/19 07:42 BUN 14.4 mg/dL (7-18) 01/04/19 07:42 Creatinine 0.4 mg/dL (0.55-1.3) L 01/04/19 07:42 Random Glucose 99 mg/dL (74-106) 01/04/19 07:42 Calcium 8.8 mg/dL (8.5-10.1) 01/04/19 07:42 Total Bilirubin 0.4 mg/dL (0.2-1) 01/02/19 06:15 AST 14 U/L (15-37) L 01/02/19 06:15 ALT 22 U/L (13-61) 01/02/19 06:15 Alkaline Phosphatase 140 U/L (45-117) H 01/02/19 06:15 Total Protein 6.0 g/dl (6.4-8.2) L 01/02/19 06:15 Albumin 2.8 g/dl (3.4-5.0) L 01/02/19 06:15 CARDIAC ENZYMES Creatine Kinase 51 U/L (26-192) 12/26/18 06:40 Troponin I < 0.02 ng/ml (0.00-0.05) 12/26/18 06:40 Assessment/Plan 58 year old female with PMH advanced severe COPD on 3-4L O2 24/, NAVDEEP on CPAP at night, anemia, HTN, GERD, HLD, DM, chronic back pain BIBA to ED from [facility] for increasing SOB x1 - 2 weeks associated with dry cough. Chronic CO2 retainer , Prednisone 5 mg, but was given a higher dose of Prednisone x2 days ago, albuterol nebulizer from [facility], without relief of her symptoms. Pt denied fever , chest pain, sputum production, nausea, vomiting. Pt also complained of her chronic back pain, she applied a lidoderm patch, which she stated she believes made her pain worse. She complains of pain in her abdomen R sided coming from her back; worse with moving. 2 weeks ago became weaker and more SOB; did not get OOB in 1-2 weeks so she started to develop sacral decubs. She had back pain on/off in [place] and she was on oxycodone for awhile; she asked to continue it here ; also on nursing home steriods. CT abdoment/pelvis with reported compression fractures in T/L spine. Patient getting physical therapy at [facility], discussed with her treatment options including pain mgmt and surgical evaluation. Consult note reviewed, no plan for drainage of hematoma. L spine Ct completed, report reviewed, confirmed compression fractures, comments that it is worse compared to 06/15/18 imaging. NSGY notes reviewed, intervention limited by local wound and concern for seeding. Note from Dr. Mir reviewed, intervention limited by local infection and concern for seeding. Remains on ABx and getting pain medication. Slightly more comfortable this AM. Plan is for her to return to [facility], no objection to this.
[2019-01-05] MEDS ORDERED: predniSONE 20 MG TABLET (UD) PO SCH (10:00)
[2019-01-05] MEDS ORDERED: PT OWN MED DRAWER 7, Y5N ONE (10:17)
[2019-01-05] MEDS: LIDOCAINE 5% TOPICAL PATCH TP SCH (10:31)
[2019-01-05] MEDS: LACTOBACILLUS ACIDOPHILUS 1 TABLET PO SCH (10:32)
[2019-01-05] MEDS: ASPIRIN 81 MG CHEWABLE TABLETS PO SCH (10:32)
[2019-01-05] MEDS: ROFLUMILAST 500 MCG TABLET PO SCH (10:32)
[2019-01-05] MEDS: HEPARIN NA (PORCINE) 5,000 UNITS/ML 1ML VIAL SQ SCH (10:32)
[2019-01-05] MEDS: ESCITALOPRAM OXALATE 10 MG TABLET (FP) PO SCH (10:32)
[2019-01-05] MEDS: PANTOPRAZOLE 20 MG TABLET (FP) PO SCH (10:32)
[2019-01-05] MEDS: CHOLECALCIFEROL (VIT D3) 1,000 UNIT (25 MCG) TABLET PO SCH (10:32)
[2019-01-05] MEDS: CALCIUM 500MG/VIT-D 200 UNITS COMBO TABLET (FP) PO SCH (10:33)
[2019-01-05] MEDS: POLYETHYLENE GLYCOL 3350 119 GM BTL PO SCH (10:33)
[2019-01-05] MEDS: SULFAMETHOXAZOLE/TRIMETHOPRIM 800MG/160MG D.S. TABLET PO SCH (10:33)
[2019-01-05] MEDS: SODIUM CHLORIDE NASAL SPRAY 44 ML BOTTLE NS SCH (10:38)
[2019-01-05] MEDS: TIOTROPIUM BROMIDE 2.5 MCG (SPIRIVA) RESPIMAT INHALER IH SCH (10:38)
--- NOTE | 2019-01-05 12:49 | PN ---
Progress Note, Physician - Current Medication List Current Medications: Active Medications Acetaminophen (Tylenol -) 650 mg PO Q6H PRN PRN Reason: PAIN LEVEL 1-5 Last Admin: 01/05/19 06:59 Dose: 650 mg Al Hydroxide/Mg Hydroxide (Mylanta Oral Suspension -) 30 ml PO QID PRN PRN Reason: GAS Albuterol Sulfate (Ventolin 0.083% Nebulizer Soln -) 1 amp NEB QID PRN PRN Reason: SHORT OF BREATH/WHEEZING Last Admin: 01/03/19 13:27 Dose: 1 amp Arformoterol Tartrate (Brovana (Restricted To Pulmonology/Resp) -) 1 amp NEB RBID [facility] Last Admin: 01/05/19 07:45 Dose: 1 amp Aspirin (Asa -) 81 mg PO DAILY [facility] Last Admin: 01/05/19 10:32 Dose: 81 mg Calcium Carbonate/Cholecalciferol (Os-Elie 500+D -) 1 tab PO DAILY [facility] Last Admin: 01/05/19 10:33 Dose: 1 tab Cholecalciferol (Vitamin D3 -) 2,000 unit PO DAILY [facility] Last Admin: 01/05/19 10:32 Dose: 2,000 unit Escitalopram Oxalate (Lexapro -) 10 mg PO DAILY [facility] Last Admin: 01/05/19 10:32 Dose: 10 mg Gabapentin (Neurontin -) 300 mg PO TID [facility] Heparin Sodium (Porcine) (Heparin -) 5,000 unit SQ BID [facility] Last Admin: 01/05/19 10:32 Dose: 5,000 unit Insulin Aspart (Novolog Vial Sliding Scale -) 1 vial SQ ACHS [facility]; Protocol Last Admin: 01/05/19 06:54 Dose: Not Given Lactobacillus Acidophilus (Bacid -) 1 tab PO DAILY [facility] Last Admin: 01/05/19 10:32 Dose: 1 tab Levothyroxine Sodium (Synthroid -) 75 mcg PO DAILY@0700 [facility] Last Admin: 01/05/19 06:54 Dose: 75 mcg Lidocaine (Lidoderm Patch -) 1 patch TP DAILY [facility] Last Admin: 01/05/19 10:31 Dose: 1 patch Metformin HCl (Glucophage -) 500 mg PO DAILY@0700 [facility] Last Admin: 01/05/19 06:54 Dose: Not Given Miscellaneous (Lidoderm Patch Removal) 1 each MC DAILY@2200 [facility] Last Admin: 01/04/19 22:42 Dose: 1 each Montelukast Sodium (Singulair -) 10 mg PO HS [facility] Last Admin: 01/04/19 22:35 Dose: 10 mg Oxycodone HCl (Roxicodone -) 5 mg PO Q6H PRN PRN Reason: PAIN LEVEL 6-10 Last Admin: 01/05/19 07:00 Dose: 5 mg Pantoprazole Sodium (Protonix -) 20 mg PO DAILY [facility] Last Admin: 01/05/19 10:32 Dose: 20 mg Polyethylene Glycol (Miralax (For Daily Use) -) 17 gm PO DAILY [facility] Last Admin: 01/05/19 10:33 Dose: Not Given Prednisone (Deltasone -) 40 mg PO DAILY [facility] Last Admin: 01/05/19 10:31 Dose: 40 mg Roflumilast (Daliresp -) 500 mcg PO DAILY [facility] Last Admin: 01/05/19 10:32 Dose: 500 mcg Rosuvastatin Calcium (Crestor -) 5 mg PO HS [facility] Last Admin: 01/04/19 22:35 Dose: 5 mg Sodium Chloride ([place] Nasal [place] -) 2 spray NS BID [facility] Last Admin: 01/05/19 10:38 Dose: 2 sprays Tiotropium [place] (Spiriva Respimat) 2 puff IH DAILY [facility] Last Admin: 01/05/19 10:38 Dose: 2 puff Trimethoprim/Sulfamethoxazole (Bactrim Ds -) 1 each PO BID [facility] Last Admin: 01/05/19 10:33 Dose: 1 each - Objective Vital Signs: Vital Signs Temperature 97.9 F 01/05/19 06:00 Pulse Rate 87 01/05/19 06:00 Respiratory Rate 20 01/05/19 06:00 Blood Pressure 131/68 01/05/19 06:00 O2 Sat by Pulse Oximetry (%) 97 01/04/19 21:00 Labs: CBC, BMP 01/04/19 07:42 01/04/19 07:42 INR, PTT INR 0.92 (0.83-1.09) 01/02/19 06:15
--- NOTE | 2019-01-05 13:09 | DS ---
Physical Examination Vital Signs: Vital Signs Temperature 97.9 F 01/05/19 06:00 Pulse Rate 87 01/05/19 06:00 Respiratory Rate 20 01/05/19 06:00 Blood Pressure 131/68 01/05/19 06:00 O2 Sat by Pulse Oximetry (%) 97 01/04/19 21:00 Findings/Remarks: in bed feels better less pain, no CP/SOB, awake alert NAD AxOx3 had lunch, normal conversation with staff and her (at bedside); pt was sleepy earlier after neurontin 400 mg dose, dose was cut down to 300 mg po tid and d/w pt and staff to hold if lethargy or sedation; to use trilogy machine as per pulm. OK for DC to NH / SNF; all f/u needed reviewed and d/w pt and her at bedside as described in DC instructions t time 40 min Constitutional: Yes: No Distress, Calm Eyes: Yes: Conjunctiva Clear HENT: Yes: Atraumatic Neck: Yes: Supple Cardiovascular: Yes: Regular Rate and Rhythm Respiratory: Yes: CTA Bilaterally Gastrointestinal: Yes: Soft. No: Tenderness Renal/: No: Hematuria Musculoskeletal: No: Joint Stiffness, Joint Swelling Extremities: No: Calf Tenderness, Cold, Cool Edema: No Integumentary: Yes: Bruising, Pressure Ulcer (much better). No: Rash, Venous Stasis Changes Neurological: Yes: WNL, Alert, Oriented. No: Tremors ...Motor Strength: WNL Psychiatric: Yes: WNL, Alert, Oriented. No: Agitated, Suicidal Ideation Labs: CBC, BMP 01/04/19 07:42 01/04/19 07:42 Discharge Summary Reason For Visit: SHORTNESS OF BREATH,LEUKOCYTOSIS,PNEUMONIA Current Active Problems Abdominal pain (Acute) Abscess (Acute) COPD exacerbation (Acute) Chronic respiratory failure (Acute) Compression fracture (Acute) Cough (Acute) Leukocytosis (Acute) Penicillin allergy (Acute) Pleural effusion (Acute) Shortness of breath (Acute) Traumatic hematoma of buttock (Acute) Procedures: Principal: 58 YOF advanced COPD HTN OA/OP admitted with SOB, COPD exac; PNA; also back pain sec to compression fractures; back wound MRSA infection; Other Procedures: seen by ID, pulm, neurology, NS and endocrine; Chest abdomen pelvic CT c/w OA and OP compression fractures spine, also PNA Hospital Course: treated with IV ATB per ID for MRSA wound and PNA; tx for back pain with prn pain meds; started neurontin; not amenable for kyphoplasty or spine INJ now b/o recent sacral MRSA but f/u outpt with NS dr Mir and IR dr Quintanilla; OP seen by endocrine to have BDT and OP tx (fosamax) out and fu endocrine outpt; IV steroids, nebs; O2 and Bipap per pulm improved with above; DC to SNF and f/u as advised d/w pt and at bedside and d/w staff Condition: Stable - Instructions Diet, Activity, Other Instructions: f/u Neurosurgery dr Ashu Mir and Interventional Radiology dr Quintanilla for possible spine INJECTION / kyphoplasty when MRSA infection/ wound cleared; po bactrim for 1 week as ordered for MRSA sacral wound; wound care; hold neurontin if sedation or lethargy; taper steroids as tolerated, DC if possible; use O2 and Trilogy as per pulmonary check BDT r/o OP and start Fosamax 70 mg po/week for Osteoporosis f/u per protocol pulmonary f/u dr Parrish; to d/w pulmonary for lung transplant eval cardiology, endocrine, wound care f/u; PT rehab, falls and DVT prophylaxis f/u labs CBC CMP in 1-2 days in NH/SNF; health maintenance pap [employer] GI colonoscopy mammogram outpt per PCP Referrals: Max Parrish MD [Staff Physician] - Oleg Ann MD [Staff Physician] - Heladio Mir MD [Staff Physician] - Clif Calhoun MD [Staff Physician] - Shekhar Perales MD [Staff Physician] - Michael Foreman MD [Staff Physician] - Laura Navarro MD [Staff Physician] - Daniel Quintanilla MD [Staff Physician] - Disposition: [facility] - Home Medications Comprehensive Discharge Medication List: Ambulatory Orders Roflumilast [Daliresp] 500 mcg PO DAILY #30 tablet 06/24/17 Montelukast Sodium [Singulair] 10 mg PO HS 04/05/18 Rosuvastatin [Crestor -] 5 mg PO HS 04/05/18 Albuterol 0.083% Nebulizer [place] [Ventolin 0.083% Nebulizer Soln -] 1 amp NEB QID PRN 05/06/18 Lactobacillus Acidophilus [Bacid -] 1 tab PO DAILY tab 06/10/18 Pantoprazole Sodium [Protonix -] 20 mg PO DAILY tablet.ec 06/10/18 Sodium Chloride Nasal [place] [[place] Nasal [place] -] 2 spray NS BID spray Tiotropium [place] [Spiriva Respimat] 2 puff IH DAILY inhaler 06/10/18 Heparin - 5,000 unit SQ BID vial 06/17/18 Arformoterol Tartrate [Brovana -] 1 amp NEB BID 12/25/18 Aspirin [ASA -] 81 mg PO DAILY 12/25/18 Escitalopram Oxalate [Lexapro -] 5 mg PO DAILY 12/25/18 Fluticasone/Salmeterol [Advair 250-50 Diskus] 1 inh PO BID 12/25/18 Levothyroxine [Synthroid -] 75 mcg PO DAILY@0700 12/25/18 Mag Hydrox/Al Hydrox/Simeth [Mylanta Oral Suspension -] 30 ml PO QID PRN metFORMIN HCL [Glucophage -] 500 mg PO DAILY 12/25/18 Acetaminophen [Tylenol .Regular Strength -] 650 mg PO Q6H PRN tablet 01/05/19 Calcium 500Mg/Vit-D 200 Units [Os-Elie 500+D -] 1 tab PO DAILY tab 01/05/19 Cholecalciferol (Vitamin D3) [Vitamin D3 -] 2,000 unit PO DAILY tab 01/05/19 Gabapentin [Neurontin -] 300 mg PO TID capsule 01/05/19 Insulin Sliding Scale [Novolog Vial Sliding Scale -] 1 vial SQ ACHS units 01/05 Lidocaine 5% Patch [Lidoderm -] 1 patch TP DAILY patch 01/05/19 Lidocaine Patch Removal [Lidoderm Patch Removal] 1 each MC DAILY@2200 each 04/16 Polyethylene Glycol 3350 [Miralax 119 gm Btl -] 17 gm PO DAILY bottle 01/05/19 Sulfamethoxazole/Trimethoprim [Bactrim DS -] 1 each PO BID #0 tablet 01/05/19 oxyCODONE HCL [Roxicodone -] 5 mg PO Q6H PRN tablet MDD 20 mg 01/05/19 predniSONE [Deltasone -] 40 mg PO DAILY tablet 01/05/19
--- NOTE | 2019-01-05 13:53 | PN ---
Progress Note (short form) - Note Progress Note: PULMONARY Denies shortness of breath, cough or wheezing. Vital Signs Period Temp Pulse Resp BP Sys/Domínguez Pulse Ox Last 24 Hr 97.9 F-98.7 F 87-110 20-22 127-137/68-74 96-97 Gen: NAD at rest Heart: RRR Lung: distant breath sounds, no wheezes Abd: softly distended Ext: no edema CBC, BMP 01/04/19 07:42 01/04/19 07:42 Active Medications Acetaminophen (Tylenol -) 650 mg PO Q6H PRN PRN Reason: PAIN LEVEL 1-5 Last Admin: 01/05/19 06:59 Dose: 650 mg Al Hydroxide/Mg Hydroxide (Mylanta Oral Suspension -) 30 ml PO QID PRN PRN Reason: GAS Albuterol Sulfate (Ventolin 0.083% Nebulizer Soln -) 1 amp NEB QID PRN PRN Reason: SHORT OF BREATH/WHEEZING Last Admin: 01/03/19 13:27 Dose: 1 amp Arformoterol Tartrate (Brovana (Restricted To Pulmonology/Resp) -) 1 amp NEB RBID [facility] Last Admin: 01/05/19 07:45 Dose: 1 amp Aspirin (Asa -) 81 mg PO DAILY [facility] Last Admin: 01/05/19 10:32 Dose: 81 mg Calcium Carbonate/Cholecalciferol (Os-Elie 500+D -) 1 tab PO DAILY [facility] Last Admin: 01/05/19 10:33 Dose: 1 tab Cholecalciferol (Vitamin D3 -) 2,000 unit PO DAILY [facility] Last Admin: 01/05/19 10:32 Dose: 2,000 unit Escitalopram Oxalate (Lexapro -) 10 mg PO DAILY [facility] Last Admin: 01/05/19 10:32 Dose: 10 mg Gabapentin (Neurontin -) 300 mg PO TID [facility] Heparin Sodium (Porcine) (Heparin -) 5,000 unit SQ BID [facility] Last Admin: 01/05/19 10:32 Dose: 5,000 unit Insulin Aspart (Novolog Vial Sliding Scale -) 1 vial SQ ACHS [facility]; Protocol Last Admin: 01/05/19 06:54 Dose: Not Given Lactobacillus Acidophilus (Bacid -) 1 tab PO DAILY [facility] Last Admin: 01/05/19 10:32 Dose: 1 tab Levothyroxine Sodium (Synthroid -) 75 mcg PO DAILY@0700 [facility] Last Admin: 01/05/19 06:54 Dose: 75 mcg Lidocaine (Lidoderm Patch -) 1 patch TP DAILY [facility] Last Admin: 01/05/19 10:31 Dose: 1 patch Metformin HCl (Glucophage -) 500 mg PO DAILY@0700 [facility] Last Admin: 01/05/19 06:54 Dose: Not Given Miscellaneous (Lidoderm Patch Removal) 1 each MC DAILY@2200 [facility] Last Admin: 01/04/19 22:42 Dose: 1 each Montelukast Sodium (Singulair -) 10 mg PO HS [facility] Last Admin: 01/04/19 22:35 Dose: 10 mg Oxycodone HCl (Roxicodone -) 5 mg PO Q6H PRN PRN Reason: PAIN LEVEL 6-10 Last Admin: 01/05/19 07:00 Dose: 5 mg Pantoprazole Sodium (Protonix -) 20 mg PO DAILY [facility] Last Admin: 01/05/19 10:32 Dose: 20 mg Polyethylene Glycol (Miralax (For Daily Use) -) 17 gm PO DAILY [facility] Last Admin: 01/05/19 10:33 Dose: Not Given Prednisone (Deltasone -) 40 mg PO DAILY [facility] Last Admin: 01/05/19 10:31 Dose: 40 mg Roflumilast (Daliresp -) 500 mcg PO DAILY [facility] Last Admin: 01/05/19 10:32 Dose: 500 mcg Rosuvastatin Calcium (Crestor -) 5 mg PO HS [facility] Last Admin: 01/04/19 22:35 Dose: 5 mg Sodium Chloride ([place] Nasal [place] -) 2 spray NS BID [facility] Last Admin: 01/05/19 10:38 Dose: 2 sprays Tiotropium [place] (Spiriva Respimat) 2 puff IH DAILY [facility] Last Admin: 01/05/19 10:38 Dose: 2 puff Trimethoprim/Sulfamethoxazole (Bactrim Ds -) 1 each PO BID [facility] Last Admin: 01/05/19 10:33 Dose: 1 each A/P Acute on Chronic Hypoxic and Hypercapneic Respiratory Failure improving Pneumonia Acute COPD Exacerbation LV Diastolic Dysfunction Hypothyroidism NAVDEEP Thoracic/Lumbar Compression Fractures Hyperlipidemia - pain control - complete antibiotics - prednisone taper - inhaled bronchodilators - O2 to keep SpO2 >90% - BiPAP as needed - DVT prophylaxis - can d/c to SNF from pulmonary standpoint
[2019-01-05] MEDS ORDERED: GABAPENTIN 300 MG CAPSULE (FP) PO SCH (14:00)
[2019-01-05] MEDS: ALBUTEROL SO4 0.083% IH SOL 2.5 MG/3 ML VIAL.NEB. NEB PRN (16:52)
[2019-01-05 17:05] VITALS: BP 137/67; PULSE 107; TEMP 98.6
== END 2019-01-05 19:30 | DRG 193 ==
LOC: JER 15:10 → JERBED 18:34 → J5S 21:11 → J8W 12-27 18:49
PROVIDERS: ADMIT Internal Medicine; ATTEND Internal Medicine
DX: J18.9 Pneumonia, unspecified organism (principal); J96.21 Acute and chronic respiratory failure with hypoxia; J96.22 Acute and chronic respiratory failure with hypercapnia; L02.31 Cutaneous abscess of buttock; J44.0 Chronic obstructive pulmonary disease with (acute) lower respiratory infection; E87.1 Hypo-osmolality and hyponatremia; E87.3 Alkalosis; J90 Pleural effusion, not elsewhere classified; M80.88XA Other osteoporosis with current pathological fracture, vertebra(e), initial encounter for fracture; J44.1 Chronic obstructive pulmonary disease with (acute) exacerbation; J44.9 Chronic obstructive pulmonary disease, unspecified; I10 Essential (primary) hypertension; S30.0XXA Contusion of lower back and pelvis, initial encounter; A49.02 Methicillin resistant Staphylococcus aureus infection, unspecified site; E03.9 Hypothyroidism, unspecified; G47.33 Obstructive sleep apnea (adult) (pediatric); E78.5 Hyperlipidemia, unspecified; D72.829 Elevated white blood cell count, unspecified; K21.9 Gastro-esophageal reflux disease without esophagitis; Z88.0 Allergy status to penicillin
CPT/HCPCS: 36415; 36600; 71045-TC-FY; 71046-TC-FY; 71250-TC; 72131-TC; 74176-TC; 80048; 80053; 82150; 82272; 82375; 82550; 82607; 82728; 82784; 82803; 82962; 83050; 83540; 83550; 83605; 83615; 83690; 83880; 83883; 84155; 84156; 84157; 84165; 84443; 84484; 85025; 85027; 85044; 85610; 85651; 86140; 87040; 87070; 87186; 87205; 87804; 93005; 93010; 94010; 94640; 94660; 97162-GP; 99284-25; G0480; J1644; Q9967

== ENCOUNTER 2019-01-08 23:19 | Emergency (ER) | payer OTHER ==
[2019-01-08 23:45] LABS: BASO % 0.7 % (0-2.0); EOS % 0.5 % (0-4.5); HEMATOCRIT 34.1 % (32.4-45.2); HEMOGLOBIN 10.4 GM/dL (10.7-15.3); LYMPH % 9.4 % (8-40); MCH 29.7 pg (25.7-33.7); MCHC 30.6 g/dl (32.0-36.0); MEAN CELL VOLUME 97.2 fl (80-96); MEAN PLT VOLUME 8.5 fl (7.5-11.1); MONO % 2.6 % (3.8-10.2); NEUT % 86.8 % (42.8-82.8); PLATELET COUNT 168 K/MM3 (134-434); RBC 3.51 M/mm3 (3.60-5.2); RDW 16.5 % (11.6-15.6); WHITE BLOOD COUNT 15.3 K/mm3 (4.0-10.0)
[2019-01-08 23:57] LABS: INR 1.03 (0.83-1.09); PROTHROMBIN TIME (PATIENT) 12.1 SEC (9.7-13.0)
[2019-01-09] LABS: ACTIVATED PTT 40.8 SECONDS (25.2-36.5)
[2019-01-09 00:04] VITALS: BMI 40.4
[2019-01-09] MEDS ORDERED: EPINEPHrine INTRACARD 1:10,000 1 MG/10 ML DISP.SYRIN IVPUSH ONE ×6 (00:05→10:27)
[2019-01-09] MEDS ORDERED: SODIUM CHLORIDE 0.9% 500 ML INFUS.BAG IV ONE (00:10)
--- NOTE | 2019-01-09 00:38 | PDOC ---
History of Present Illness - General Chief Complaint: Cardiac Arrest Stated Complaint: CARDIAC ARREST Time Seen by Provider: 01/09/19 00:02 - History of Present Illness Initial Comments: 58yo F with PMH of COPD, HTN, HLD, DM, chronic back pain, MRSA cellulitis, brought in by EMS for cardiac arrest. In the field, ACLS was initiated. An IO was placed. Patient received 2 of epi, bicarb, and calcium. ROSC was achieved after about 35 minutes of downtime. Patient came into our department and placed on monitor. BP 158/144 . Definitive airway was established at 11:33. Right femoral line was placed at 11:50. Patient lost pulses at 12:30am. Chest compressions were initiated. Given two amps of epinephrine. Found to be in Vtach with pulses. Shocked and achieved a narrow complex rhythm. Per family, patient was discharged from this hospital on to [facility]. She has not been feeling well for the past couple days. denies cardiac history. PCP: Dr. Taylor Past History - Past Medical History Allergies/Adverse Reactions: Allergies Allergy/AdvReac Type Severity Reaction Status Date / Time Penicillins Allergy Severe Difficulty Verified 01/08/19 23:56 Breathing Home Medications: Ambulatory Orders Roflumilast [Daliresp] 500 mcg PO DAILY #30 tablet 06/24/17 Montelukast Sodium [Singulair] 10 mg PO HS 04/05/18 Rosuvastatin [Crestor -] 5 mg PO HS 04/05/18 Albuterol 0.083% Nebulizer Colette [Ventolin 0.083% Nebulizer Soln -] 1 amp NEB QID PRN 05/06/18 Lactobacillus Acidophilus [Bacid -] 1 tab PO DAILY tab 06/10/18 Pantoprazole Sodium [Protonix -] 20 mg PO DAILY tablet.ec 06/10/18 Sodium Chloride Nasal [place] [[place] Nasal [place] -] 2 spray NS BID spray Tiotropium [place] [Spiriva Respimat] 2 puff IH DAILY inhaler 06/10/18 Heparin - 5,000 unit SQ BID vial 06/17/18 Arformoterol Tartrate [Brovana -] 1 amp NEB BID 12/25/18 Aspirin [ASA -] 81 mg PO DAILY 12/25/18 Escitalopram Oxalate [Lexapro -] 5 mg PO DAILY 12/25/18 Fluticasone/Salmeterol [Advair 250-50 Diskus] 1 inh PO BID 12/25/18 Levothyroxine [Synthroid -] 75 mcg PO DAILY@0700 12/25/18 Mag Hydrox/Al Hydrox/Simeth [Mylanta Oral Suspension -] 30 ml PO QID PRN metFORMIN HCL [Glucophage -] 500 mg PO DAILY 12/25/18 Acetaminophen [Tylenol .Regular Strength -] 650 mg PO Q6H PRN tablet 01/05/19 Calcium 500Mg/Vit-D 200 Units [Os-Elie 500+D -] 1 tab PO DAILY tab 01/05/19 Cholecalciferol (Vitamin D3) [Vitamin D3 -] 2,000 unit PO DAILY tab 01/05/19 Gabapentin [Neurontin -] 300 mg PO TID capsule 01/05/19 Insulin Sliding Scale [Novolog Vial Sliding Scale -] 1 vial SQ ACHS units 01/05 Lidocaine 5% Patch [Lidoderm -] 1 patch TP DAILY patch 01/05/19 Lidocaine Patch Removal [Lidoderm Patch Removal] 1 each MC DAILY@2200 each 04/16 Polyethylene Glycol 3350 [Miralax 119 gm Btl -] 17 gm PO DAILY bottle 01/05/19 Sulfamethoxazole/Trimethoprim [Bactrim DS -] 1 each PO BID #0 tablet 01/05/19 oxyCODONE HCL [Roxicodone -] 5 mg PO Q6H PRN tablet MDD 20 mg 01/05/19 predniSONE [Deltasone -] 40 mg PO DAILY tablet 01/05/19 Anemia: Yes (b12 deficency) Cardiac Disorders: Yes (CHF) CVA: No COPD: Yes (O2 dependent at home 3 l nc) CHF: Yes DVT: No Dementia: No Diabetes: No GI Disorders: No Disorders: No HTN: Yes Hypercholesterolemia: Yes Liver Disease: No Seizures: No Thyroid Disease: Yes (hypo) - Immunization History Immunization Up to Date: Yes - Suicide/Smoking/Psychosocial Hx Smoking History: Unknown if ever smoked Have you smoked in the past 12 months: No If you are a former smoker, when did you quit?: 8 years ago Hx Alcohol Use: No Drug/Substance Use Hx: No Substance Use Type: None Hx Substance Use Treatment: No Review of Systems - Review of Systems Able to Perform ROS?: No (GCS 3) *Physical Exam - Vital Signs Last Vital Signs Temp Pulse Resp BP Pulse Ox 117 H 16 101/83 100 01/09/19 00:36 01/09/19 00:36 01/09/19 00:36 01/09/19 00:36 - Physical Exam Comments: General: Intubated Head: No signs of trauma Eyes: L. pupil greater in size than R. pupil ENT: Moist mucus membranes Neck: Normal ROM, supple Lungs: Ventilated breath sounds Cardio: S1 and S2 present Abdomen: Distended Extremities: faint distal pulses, no BLE edema SKIN: multiple bruises present Neurologic: GCS 3 ED Treatment Course - LABORATORY CBC & Chemistry Diagram: 01/08/19 23:32 01/08/19 23:32 - ADDITIONAL ORDERS Additional order review: Laboratory Results 01/08/19 23:32 PT with INR 12.10 INR 1.03 PTT (Actin FS) 40.8 H 01/08/19 23:32 RBC 3.51 L MCV 97.2 H D MCHC 30.6 L RDW 16.5 H MPV 8.5 Neutrophils % 86.8 H Lymphocytes % 9.4 D Monocytes % 2.6 L Eosinophils % 0.5 Basophils % 0.7 Medical Decision Making - Medical Decision Making 58yo F with PMH of COPD, MRSA cellulitis, brought in by EMS for cardiac arrest. In the field, ACLS was initiated. An IO was placed. Patient received 2 of epi, bicarb, and calcium. ROSC was achieved after about 35 minutes of downtime. Patient came into our department and placed on monitor. BP 158/144 . Definitive airway was established at 11:33. Right femoral line was placed at 11:50. Patient lost pulses at 12:30am. Chest compressions were initiated. Given two amps of epinephrine. Found to be in Vtach with pulses. Shocked and achieved a narrow complex rhythm. Per family, patient was discharged from this hospital on to [facility]. She has not been feeling well for the past couple days. denies cardiac history. PCP: Dr. Taylor Patient placed on post-ROSC epi drip Levaquin for antibiotic coverage second liter of fluids running BP: 101/83, HR 119, 100% Sat on vent Patient accepted to the ICU Will notify patient's primary care physician, Dr. Taylor 01/09/19 00:[address] Agustina Taylor. Since she is not able to see the patient within two hours, she is requesting hospitalist admission. Hospitalist paged 01/09/19 00:55 CBC WBC 15.3 K/mm3 (4.0-10.0) H 01/08/19 23:32 RBC 3.51 M/mm3 (3.60-5.2) L 01/08/19 23:32 Hgb 10.4 GM/dL (10.7-15.3) L 01/08/19 23:32 Hct 34.1 % (32.4-45.2) 01/08/19 23:32 MCV 97.2 fl (80-96) H D 01/08/19 23:32 MCH 29.7 pg (25.7-33.7) 01/08/19 23:32 MCHC 30.6 g/dl (32.0-36.0) L 01/08/19 23:32 RDW 16.5 % (11.6-15.6) H 01/08/19 23:32 Plt Count 168 K/MM3 (134-434) D 01/08/19 23:32 MPV 8.5 fl (7.5-11.1) 01/08/19 23:32 Absolute Neuts (auto) 13.3 K/mm3 (1.5-8.0) H 01/08/19 23:32 Neutrophils % 86.8 % (42.8-82.8) H 01/08/19 23:32 Lymphocytes % 9.4 % (8-40) D 01/08/19 23:32 Monocytes % 2.6 % (3.8-10.2) L 01/08/19 23:32 Eosinophils % 0.5 % (0-4.5) 01/08/19 23:32 Basophils % 0.7 % (0-2.0) 01/08/19 23:32 Nucleated RBC % 3 % (0-0) H 01/08/19 23:32 Leukocytosis Anemia at baseline CMP Sodium 140 mmol/L (136-145) 01/08/19 23:32 Potassium 5.5 mmol/L (3.5-5.1) H 01/08/19 23:32 Chloride 87 mmol/L (98-107) L 01/08/19 23:32 Carbon Dioxide 36 mmol/L (21-32) H 01/08/19 23:32 Anion Gap 18 MMOL/L (8-16) H 01/08/19 23:32 BUN 21.6 mg/dL (7-18) H 01/08/19 23:32 Creatinine 1.2 mg/dL (0.55-1.3) 01/08/19 23:32 Est GFR (CKD-EPI)AfAm 58.51 01/08/19 23:32 Est GFR (CKD-EPI)NonAf 50.48 01/08/19 23:32 Random Glucose 132 mg/dL (74-106) H 01/08/19 23:32 Lactic Acid 15.8 mmol/L (0.4-2.0) H* 01/08/19 23:32 Calcium 11.1 mg/dL (8.5-10.1) H 01/08/19 23:32 Phosphorus 10.9 mg/dL (2.5-4.9) H* 01/08/19 23:32 Magnesium 2.9 mg/dL (1.8-2.4) H 01/08/19 23:32 Total Bilirubin 0.5 mg/dL (0.2-1) 01/08/19 23:32 AST 1408 U/L (15-37) H 01/08/19 23:32 ALT 889 U/L (13-61) H 01/08/19 23:32 Alkaline Phosphatase 182 U/L (45-117) H 01/08/19 23:32 Creatine Kinase 89 U/L (26-192) 01/08/19 23:32 Troponin I 0.03 ng/ml (0.00-0.05) 01/08/19 23:32 Total Protein 5.5 g/dl (6.4-8.2) L 01/08/19 23:32 Albumin 2.7 g/dl (3.4-5.0) L 01/08/19 23:32 Potassium elevated Transaminitis Tpn normal range Lactate 15.8 Phos 10.9 elevated Mag 2.9 elevated 01/09/19 01:02 Patient lost pulses at 1:45. ACLS initiated. Dextrose, epi given without return of pulses. verbalized desire for DNR stating "she has gone through so much" and "she wouldn't want this" Time of 1:52am 01/09/19 02:06 [place] This is not an autopsy case Dr. Agustina Taylor notified. She will sign the certificate. 01/09/19 06:41 *DC/Admit/Observation/Transfer Diagnosis at time of Disposition: Cardiac arrest, Endotracheally intubated - Discharge Dispostion Disposition: Condition at time of disposition: - Referrals Referrals: Laura Navarro MD [Primary Care Provider] - - Patient Instructions - Post Discharge Activity
[2019-01-09 00:45] LABS: ALBUMIN 2.7 g/dl (3.4-5.0); BILIRUBIN,TOTAL 0.5 mg/dL (0.2-1); BLOOD UREA NITROGEN 21.6 mg/dL (7-18); CALCIUM 11.1 mg/dL (8.5-10.1); CREATININE 1.2 mg/dL (0.55-1.3); MAGNESIUM 2.9 mg/dL (1.8-2.4); POTASSIUM 5.5 mmol/L (3.5-5.1); TOT PROT 5.5 g/dl (6.4-8.2)
[2019-01-09] MEDS ORDERED: TERBUTALINE SULFATE 1 MG/1 ML VIAL SQ ONE ×3 (00:45→01:15)
[2019-01-09] MEDS ORDERED: NOREPINEPHRINE BITARTRATE 8,000 MCG in DEXTROSE 5%-WATER - 492 ML IV SCH (00:45)
[2019-01-09] MEDS ORDERED: methylPREDNISolone NA SUCC 125 MG/2 ML VIAL IVPUSH ONE ×2 (00:45→12:45)
[2019-01-09 00:48] LABS: PHOSPHOROUS 10.9 mg/dL (2.5-4.9)
[2019-01-09 00:52] LABS: ARTERIAL BLOOD GAS BASE EXCESS 1.5 meq/l (-2-2); ARTERIAL BLOOD GAS PCO2 53.3 mmHg (35-45); ARTERIAL BLOOD GAS PO2 372 mmHg (80-105); ARTERIAL BLOOD GAS pH 7.33 (7.35-7.45); CARBOXYHEMOGLOBIN 1.2 % (0-2)
[2019-01-09] MEDS ORDERED: methylPREDNISolone NA SUCC 125 MG/2 ML VIAL ONE (00:56)
[2019-01-09] MEDS ORDERED: MAGNESIUM SULF 50% (8.12 MEQ/2 ML-1 GM VIAL) ONE (00:57)
[2019-01-09 00:58] LABS: ALLENS TEST POSITIVE
[2019-01-09] MEDS ORDERED: ALBUTEROL SO4 2.5/IPRATROPIUM 0.5 INH SOL 3 ML VIAL.NEB. NEB ONE (01:06)
[2019-01-09] MEDS ORDERED: KETAMINE HCL 200 MG/20 ML VIAL ONE (01:11)
[2019-01-09 01:21] VITALS: TEMP 97.4
[2019-01-09 01:54] LABS: EPI CELLS 0.5 /HPF (0-5/HPF); HYALINE CASTS 1 /lpf (0-8); PH,URINE 5.5 (5.0-8.0); URINE APPEARANCE CLEAR; URINE BACTERIA 0.2 /hpf (NEGATIVE); URINE BILIRUBIN NEGATIVE (NEGATIVE); URINE COLOR YELLOW; URINE GLUCOSE (UA) NEGATIVE (NEGATIVE); URINE KETONE NEGATIVE (NEGATIVE); URINE LEUK ESTERASE NEGATIVE (NEGATIVE); URINE NITRITE NEGATIVE (NEGATIVE); URINE PROTEIN NEGATIVE (NEGATIVE); URINE RBC 2 /hpf (0-4); URINE UROBILINOGEN 0.2 mg/dL (0.2-1.0); URINE WBC 0 /hpf (0-5)
[2019-01-09 02:11] LABS: COCAINE, UR NEGATIVE ng/ml (CUTOFF=300); METHADONE, UR NEGATIVE ng/ml (CUTOFF=300); PHENCYCLIDINE,URINE NEGATIVE ng/ml (CUTOFF=25); URINE AMPHETAMINES NEGATIVE ng/ml (CUTOFF=500); URINE BARBITURATES NEGATIVE ng/ml (CUTOFF=200); URINE BENZODIAZEPINES NEGATIVE ng/ml (CUTOFF=200)
[2019-01-09 02:15] LABS: OPIATES, URI POSITIVE ng/ml (CUTOFF=300)
[2019-01-09 03:00] LABS: CORRECTED WBC 13.78 K/mm3
[2019-01-09 03:26] VITALS: BP 0/0; PULSE 0
--- NOTE | 2019-01-09 07:16 | PDOC ---
Documentation entered by Mihaela Menendez SCRIBE, acting as scribe for Crystal Chapa MD. Crystal Chapa MD: This documentation has been prepared by the scribe, Mihaela Menendez SCRIBE, under my direction and personally reviewed by me in its entirety. I confirm that the documentation accurately reflects all work, treatment, procedures, and medical decision making performed by me. Attending Attestation - Resident Resident Name: Livia Pierce - [facility] HPI: 01/09/19 00:38 The patient is a 58-year-old female with a past medical history significant for COPD (on Bipap at home), and emphysema presents to the emergency department via EMS with a cardiac arrest. The patient was found unresponsive at 10:15 pm, EMS was called. EMS reports they did 11 rounds of CPR, 2 rounds of epinephrine, 1 bicarb, and 1 calcium. EMS placed an IO on the right leg. Last recorded BP per EMS was 111/78. Per the , the patients been complaining of increased worsening fatigue for the past few days. The patient was recently admitted to [facility] for pneumonia and MRSA wound to the back. The patient was D/C to [facility] on 01/05/2019. At 12:30 am, the patient became bradycardic with O2 levels dropping. The patient was given a round of epinephrine, and CPR and chest compression was started. The patient was noted to be V-tach to 150s. The patient was shocked with 200 joules, following the patient reverted back to narrow complex. 01/09/19 02:18 CPR was started at 1:45. At 1:46 the patient was started on dextrose, and 1:47 am patient was given a round of epinephrine. At 1:47 am pulses were checked, no pulse were noted, no activity on ultrasound. CPR was resumed. At 1:50 pulses were checked again, no pulses noted. CPR resumed. At 1:52 am the patient was pronounced . - Physicial Exam PE: 01/09/19 02:13 GENERAL: s/p cardiac arrest. EYES: Left pupils greater than right. ENT: Ears normal, nares patent. Moist mucous membranes. NECK: Normal range of motion. LUNGS: +moving air on ventilator. breath coarse sounds bilaterally. Diffculit to bag, increased airway pressure. HEART: on Sono: heart was pumping, no pericardial effusion noted, no right heart strain noted on the echo. ABDOMEN: +distended, bruising noted on the abdomen from insulin injections. EXTREMITIES: + no pitting edema. NEUROLOGICAL: unresponsive. SKIN: +Bruising to the arms from insulin injections.
--- NOTE | 2019-01-09 11:15 | PN ---
Progress Note (short form) - Note Progress Note: I was called by ER dr Orta at 12.43 AM last night that pt was brought from [facility] in cardiac arrest, intubated and resuscitated, accepted to ICU; I asked ER dr to admit pt to the hospitalist service who could asses her immediately and treat and admit pt right away to ICU. Pt was in [facility] since DC from hospital on 01/05. Subsequently I was called by ER dr Orta at 5.42 AM to inform me that last night while in ED pt coded again and she at 1.52 am. Hospitalist service was called by ER to admit the pt but pt did not make it to the ICU and she was not seen by the hospitalist in ER. ME was called by ER but not an ME case. I spoke with pt's Denis and pt's PCP dr Mariana Navarro. Denis told me that he was in [facility] with [facility] yesterday "all day" and she was fatigued but she appeared OK and in no distress, then he was called around midnight that she was sent to ER in cardiac arrest and he "did not expect that at all"; he does not wish to perform an autopsy.
--- NOTE | 2019-01-10 09:59 | EKG ---
Test Reason : Blood Pressure : / mmHG Vent. Rate : 129 BPM Atrial Rate : 129 BPM P-R Int : 140 ms QRS Dur : 088 ms QT Int : 280 ms P-R-T Axes : 086 129 052 degrees QTc Int : 410 ms SINUS TACHYCARDIA POOR R WAVE PROGRESSION ABNORMAL ECG WHEN COMPARED WITH ECG OF 08-JAN-2019 23:30, VENT. RATE HAS INCREASED Confirmed by JAS WALL MD ([id number]) on 01/10/2019 9:59:30 AM Referred By: Confirmed By:JAS WALL MD
== END 2019-01-09 04:04 | disposition expired ==
LOC: JER 23:19 → JICU 01-09 00:41 → UNDOADMIN 01-09 00:41
PROC: 5A12012 Performance of Cardiac Output, Single, Manual (ICD-10-PCS; principal; 2019-01-08)
PROC: 0BH17EZ Insertion of Endotracheal Airway into Trachea, Via Natural or Artificial Opening (ICD-10-PCS; 2019-01-08)
PROC: 5A1935Z Respiratory Ventilation, Less than 24 Consecutive Hours (ICD-10-PCS; 2019-01-08)
PROC: 3E03329 Introduction of Other Anti-infective into Peripheral Vein, Percutaneous Approach (ICD-10-PCS; 2019-01-08)
PROC: 3E0333Z Introduction of Anti-inflammatory into Peripheral Vein, Percutaneous Approach (ICD-10-PCS; 2019-01-08)
PROC: 3E033GC Introduction of Other Therapeutic Substance into Peripheral Vein, Percutaneous Approach (ICD-10-PCS; 2019-01-08)
DX: I46.9 Cardiac arrest, cause unspecified (principal); J43.9 Emphysema, unspecified; Z99.81 Dependence on supplemental oxygen; I11.0 Hypertensive heart disease with heart failure; I50.9 Heart failure, unspecified; E11.9 Type 2 diabetes mellitus without complications; Z79.4 Long term (current) use of insulin; E03.9 Hypothyroidism, unspecified; E78.00 Pure hypercholesterolemia, unspecified
CPT/HCPCS: 36415; 36600; 71045-TC-FY; 80053; 80307; 81003; 82375; 82550; 82803; 82962; 83050; 83605; 83735; 84100; 84484; 85025; 85379; 85610; 85730; 87040; 93005; 93010; 94002; 99285-25